=== PATIENT | male | born 1940 | race Caucasian/White ===

== ENCOUNTER 2020-12-27 10:58 | Outpatient (REF) | payer MEDICARE, SELFPAY ==
[2020-12-27 13:18] LABS: MANUAL DIFF FLAG NO
[2020-12-27 13:23] LABS: Basophils Percent Auto 0.6 % (0-2); Eosinophils Absolute Auto 0.2 X10*3/uL (0.0-0.4); Eosinophils Percent Auto 3.2 % (0-4); Hematocrit 39.1 % (42-52); Hemoglobin 12.6 g/dl (14.0-18.0); Imm Gran Abs Auto 0.01 X10*3/uL (0.00-0.03); Imm Gran Pct Auto 0.2 % (0.0-0.4); Lymphocytes Absolute Auto 2.2 X10*3/uL (1.2-4.9); Lymphocytes Percent Auto 44.5 % (20-40); Mean Corpuscular HGB Conc 32.2 g/dl (31.0-36.0); Mean Corpuscular Hemoglobin 27.4 pg (27.0-33.0); Mean Platelet Volume 10.4 fL (9.4-12.4); Monocytes Absolute Auto 0.4 X10*3/uL (0.1-1.2); Monocytes Percent Auto 7.4 % (2-11); Neutrophils Absolute Auto 2.2 X10*3/uL (2.0-8.3); Neutrophils Percent Auto 44.1 % (45-73); Platelet Count 138 X10*3/uL (160-400); Red Cell Distribution Width 14.1 % (11.0-16.0)
[2020-12-27 13:40] LABS: Estimated Average Glucose 237 mg/dL; Hemoglobin A1c % 9.9 %
[2020-12-27 13:49] LABS: Alanine Aminotransferase 20 U/L (0-40); Albumin Level 4.3 g/dL (3.5-5.0); Alkaline Phosphatase 48 U/L (39-117); Anion Gap 13 (12-20); Aspartate Amino Transferase 19 U/L (5-37); Bilirubin Total 0.7 mg/dL (0.0-1.0); Blood Urea Nitrogen 11 mg/dL (9-16); Carbon Dioxide 26 mmol/L (22-29); Chloride 104 mmol/L (96-108); Cholesterol 111 mg/dL; Estimated Glomerular Filt Rate > 60; Glucose Fasting 208 mg/dL (60-99); HDL Cholesterol 38 mg/dL; LDL Cholesterol Calculated 44 mg/dl; Potassium 4.1 mmol/L (3.3-5.1); Sodium 139 mmol/L (135-145); Triglycerides 145 mg/dL
[2020-12-27 14:23] LABS: Creatinine Urine 81.37 mg/dL; Microalbum/Creatinine Ratio Ur 346.5 ug/mg cr
== END 2020-12-27 10:59 | disposition home or self-care (01) ==
LOC: HO.10HDL 10:58
PROVIDERS: Visit Provider Internal Medicine
DX: Z00.00 Encounter for general adult medical examination without abnormal findings (principal); E11.9 Type 2 diabetes mellitus without complications
CPT/HCPCS: 36415; 80053; 80061; 82043; 83036; 85025

== ENCOUNTER 2021-05-17 12:13 | Outpatient (REF) | payer MEDICARE, SELFPAY ==
[2021-05-17 13:55] LABS: Estimated Average Glucose 217 mg/dL; Hemoglobin A1c % 9.2 %
[2021-05-17 14:06] LABS: Glucose Fasting 147 mg/dL (60-99)
== END 2021-05-17 12:14 | disposition home or self-care (01) ==
LOC: HO.10HDL 12:13
PROVIDERS: Visit Provider Internal Medicine
DX: E11.65 Type 2 diabetes mellitus with hyperglycemia (principal)
CPT/HCPCS: 36415; 82947; 83036

== ENCOUNTER 2021-09-18 09:33 | Outpatient (REF) | payer MEDICARE, SELFPAY ==
[2021-09-18 10:48] LABS: Estimated Average Glucose 212 mg/dL
[2021-09-18 11:05] LABS: Cholesterol 106 mg/dL; Glucose Fasting 149 mg/dL (60-99); HDL Cholesterol 35 mg/dL; LDL Cholesterol Calculated 50 mg/dl; Triglycerides 105 mg/dL
== END 2021-09-18 09:34 | disposition home or self-care (01) ==
LOC: HO.10HDL 09:33
PROVIDERS: Visit Provider Internal Medicine
DX: Z00.00 Encounter for general adult medical examination without abnormal findings (principal); E11.65 Type 2 diabetes mellitus with hyperglycemia
CPT/HCPCS: 36415; 80061; 82947; 83036

== ENCOUNTER 2022-02-19 10:36 | Outpatient (REF) | payer MEDICARE, SELFPAY ==
[2022-02-19 13:41] LABS: MANUAL DIFF FLAG NO
[2022-02-19 13:46] LABS: Basophils Percent Auto 0.7 % (0-2); Eosinophils Absolute Auto 0.2 X10*3/uL (0.0-0.4); Eosinophils Percent Auto 3.5 % (0-4); Hematocrit 38.4 % (42.0-52.0); Hemoglobin 12.4 g/dl (14.0-18.0); Imm Gran Abs Auto 0.01 X10*3/uL (0.00-0.03); Imm Gran Pct Auto 0.2 % (0.0-0.4); Lymphocytes Absolute Auto 2.3 X10*3/uL (1.2-4.9); Lymphocytes Percent Auto 40.6 % (20-40); Mean Corpuscular HGB Conc 32.3 g/dl (31.0-36.0); Mean Corpuscular Hemoglobin 27.3 pg (27.0-33.0); Mean Corpuscular Volume 84.6 fL (80.0-98.0); Mean Platelet Volume 10.8 fL (9.4-12.4); Monocytes Absolute Auto 0.4 X10*3/uL (0.1-1.2); Monocytes Percent Auto 7.4 % (2-11); Neutrophils Absolute Auto 2.7 x10*3/uL (2.0-8.3); Neutrophils Percent Auto 47.6 % (45-73); Platelet Count 148 X10*3/uL (160-400); Red Blood Count 4.54 X10*6/uL (4.60-5.80); Red Cell Distribution Width 14.6 % (11.0-16.0); White Blood Count 5.6 X10*3/uL (4.8-10.8)
[2022-02-19 13:57] LABS: Alanine Aminotransferase 15 U/L (0-40); Albumin Level 4.3 g/dL (3.5-5.0); Alkaline Phosphatase 50 U/L (39-117); Anion Gap 11 (12-20); Aspartate Amino Transferase 19 U/L (5-37); Bilirubin Total 0.8 mg/dL (0.0-1.0); Blood Urea Nitrogen 12 mg/dL (9-16); Carbon Dioxide 27 mmol/L (22-29); Chloride 105 mmol/L (96-108); Cholesterol 107 mg/dL; Estimated Glomerular Filt Rate > 60; Glucose Fasting 111 mg/dL (60-99); HDL Cholesterol 37 mg/dL; LDL Cholesterol Calculated 51 mg/dl; Potassium 3.8 mmol/L (3.3-5.1); Sodium 139 mmol/L (135-145); Total Protein 7.1 g/dL (6.5-8.0); Triglycerides 98 mg/dL
[2022-02-19 13:59] LABS: Estimated Average Glucose 186 mg/dL; Hemoglobin A1c % 8.1 %
[2022-02-19 14:19] LABS: Thyroid Stimulating Hormone 1.56 uIU/mL (0.32-4.0)
== END 2022-02-19 10:37 | disposition home or self-care (01) ==
LOC: HO.10HDL 10:36
PROVIDERS: Visit Provider Internal Medicine
DX: Z00.00 Encounter for general adult medical examination without abnormal findings (principal); E11.9 Type 2 diabetes mellitus without complications; Z13.0 Encounter for screening for diseases of the blood and blood-forming organs and certain disorders involving the immune mechanism
CPT/HCPCS: 36415; 80053; 80061; 83036; 84443; 85025

== ENCOUNTER 2022-06-03 15:56 | Emergency (ER) | payer MEDICARE, SELFPAY ==
--- NOTE | ~2022-06-03 | CT_ITS ---
EXAMINATION: NONCONTRAST HEAD CT NONCONTRAST CERVICAL SPINE CT INDICATION INFORMATION: Fall COMPARISON: None TECHNIQUE: Separate noncontrast CT examinations of the head and cervical spine were performed. Coronal and sagittal images were created for each examination at the technologist workstation. This CT examination was performed using dose optimization techniques as appropriate, variously including the following: *Automated exposure control *Adjustment of mA and/or kV according to patient size (this includes techniques or standardized protocols for targeted exams where dose is matched to indication/reason for exam; i.e. extremities or head) *Use of iterative reconstruction technique DLP: 845 mGy-cm FINDINGS: HEAD: No intra or extra-axial fluid collection, hemorrhage, or mass. No ventriculomegaly. No midline shift or herniation. Basal cisterns are patent. Casper-white matter differentiation is maintained. No territorial encephalomalacia. Proportional prominence of the ventricles and sulcal spaces is consistent with mild volume loss. Patchy periventricular and deep white matter hypoattenuation is consistent with mild small vessel ischemic changes. No calvarial fracture or soft tissue abnormality. Partial opacification of left mastoid air cells, nonspecific. Right mastoid air cells and visualized paranasal sinuses are normally aerated. CERVICAL SPINE: Alignment: Normal. No subluxation. Vertebra: No acute fracture. No prevertebral soft tissue swelling. Degenerative disc disease: Status post decompressive laminectomy at C3-C6. Moderate disc degenerative change at C2-C3 and C3-C4. Partial ankylosis of the C4 through C7 levels. There is bridging osteophyte or syndesmophyte formation and the visualized upper thoracic spine. Advanced facet arthrosis at C2-C3 and C3-C4. Facet joint ankylosis at C4-C6. Other findings: No cervical lymphadenopathy. Visualized major salivary glands and thyroid gland are unremarkable. Visualized lung apices are clear. CT/CT cervical spine wo IV con IMPRESSION: 1. No intracranial hemorrhage or calvarial fracture. 2. No traumatic subluxation or acute cervical spine fracture.
--- NOTE | ~2022-06-03 | CT_ITS ---
EXAMINATION: CT CHEST WITHOUT CONTRAST CLINICAL INFORMATION: Fall with weakness COMPARISON: None TECHNIQUE: Multidetector volumetric CT imaging of the chest was done. Axial MIP volume rendering provided. Sagittal and coronal reformatted images were obtained. This CT examination was performed using dose optimization techniques as appropriate, variously including the following: *Automated exposure control *Adjustment of mA and/or kV according to patient size (this includes techniques or standardized protocols for targeted exams where dose is matched to indication/reason for exam; i.e. extremities or head) *Use of iterative reconstruction technique DLP: 555 mGy-cm FINDINGS: LUNGS: The lungs are clear with no evidence of inflammation or nodules. MEDIASTINUM: Heart size normal. No mediastinal or hilar lymphadenopathy. CORONARY ARTERY CALCIFICATION: Marked coronary calcification is seen. PLEURA: There is no pleural effusion. No pleural mass or thickening. No pneumothorax. AXILLA: No lymphadenopathy. Bilateral gynecomastia is present. UPPER ABDOMEN: There is a 2 cm cyst present in the right lobe of the liver just beneath the dome of the hemidiaphragm. Calcified gallstones are seen without evidence of cholecystitis. OSSEOUS STRUCTURES: Degenerative changes are noted throughout the spine with kyphosis. Status post median sternotomy. No rib fractures. CT/CT chest wo IV con IMPRESSION: No evidence of a traumatic injury. Incidental findings as described above. Fleischner guidelines were followed.
[2022-06-03 16:13] VITALS: BP 140/90; BP 168/68; PULSE 71; PULSE 86; RESP 18; TEMP 37.1; O2SAT 96; BMI 29.4
--- NOTE | 2022-06-03 16:14 | ED_ITS ---
HPI - General Adult General Chief complaint: Fall Stated complaint: fall Time Seen by Provider: 06/03/22 16:14 Source: patient and EMS Mode of arrival: EMS Limitations: no limitations History of Present Illness HPI narrative: Patient is a 81 year old assigned male at with a history of HTN and DM p resenting to the emergency department today after a fall. Patient states that he was at [employer] walking with his walker when his legs felt weak and he sat down. Patient states that he did not hit his head with the fall and did not have any loss of consciousness from the incident. Patient denies any current dizziness, lightheadedness, abdominal pain, nausea, vomiting, fever, chills, blurry vision, double vision, loss of vision, chest pain, difficulty breathing, shortness of breath, back pain, night sweats, pain with urination, increased urinary frequency, increased urinary urgency, blood in his urine or stool, syncope or a near syncopal episode, bowel incontinence, bladder incontinence, bowel retention, bladder retention, or any other complaints at this time. Onset (ago): minute(s) Relieving factors: none Exacerbating factors: none Associated symptoms: denies other symptoms Treatments prior to arrival: none Related Data Home Medications Medication Instructions Recorded Confirmed insulin NPH-reg hum semi-syn 100 ml subcut 12/27/21 03/29/22 unit/mL(70-30) subcutaneous cartridge Previous Rx's Medication Instructions Recorded insulin syringe-needle U-100 1 mL #100 ea 06/18/21 31 gauge x 5/16 (BD Insulin Syringe Ultra-Fine) blood sugar diagnostic (FreeStyle #100 ea 11/09/21 Test strips) rosuvastatin 10 mg tablet (Crestor) 10 mg PO DAILY 90 days #90 tabs 02/06/22 cholecalciferol (vitamin D3) 50 50 mcg PO DAILY #90 caps 02/20/22 mcg (2,000 unit) capsule losartan 25 mg tablet 25 mg PO DAILY 90 days #90 tabs 03/08/22 metformin 850 mg tablet 850 mg PO TID 90 days #270 tabs 04/10/22 hydralazine 25 mg tablet 25 mg PO BID 90 days #180 tabs 04/19/22 metoprolol tartrate 100 mg tablet 100 mg PO BID 90 days #180 tabs 04/19/22 Allergies Allergy/AdvReac Type Severity Reaction Status Date / Time Mfqmlsg-BCA-FbN Reductase Allergy Mild Burning Verified 03/29/22 11:45 Inhibitor sensation [Qfapkbw-Jkt-Hyn Reductase Inhibitor] all statins except crestor Allergy Unknown burning Uncoded 07/16/19 00:00 sensations in legs Review of Systems Constitutional: Constitutional: Reports no additional constitutional complaints, Denies chills, Denies fever(s) and Denies night sweats Eyes: Eyes: Reports no additional eye complaints, Denies blurry vision, Denies change in vision, Denies diplopia, Denies eye discharge, Denies loss of vision and Denies eye pain ENT: Denies dizziness Cardiovascular: Cardiovascular: Reports no additional cardiovascular complaints, Denies chest pain, Denies lightheadedness, Denies Loss of Consciousn ess and Denies dyspnea Respiratory: Respiratory: Reports no additional respiratory complaints and Denies dyspnea Gastrointestinal: Gastrointestinal: Reports no additional gastrointestinal complaints, Denies abdominal pain, Denies melena, Denies hematochezia, Denies change in bowel habits and Denies change in stool character Genitourinary: Genitourinary: Reports no additional male genitourinary complaints, Denies hematuria, Denies oliguria, Denies difficulty urinating, Denies dysuria, Denies urinary frequency, Denies urinary hesitancy, Denies urinary incontinence and Denies urinary urgency Musculoskeletal: Musculoskeletal: Reports no additional musculoskeletal complaints, Denies numbness and Denies tingling Neurologic: Denies dizziness, Denies loss of vision, Denies numbness and Denies tingling Psychiatric: Psychiatric: Reports no additional psychiatric complaints Endocrine: Endocrine: Reports no additional endocrine complaints Hematologic/Lymphatic: Hematologic/Lymphatic: Reports no additional hematologic/lymphatic complaints Allergic/Immunologic: Allergic/Immunologic: Reports no additional allergic/immunologic complaints [facility] Past Medical History Attestation statement: The following information was validated with the patient. Source: old records reviewed Medical History Diabetes mellitus with coincident hypertension Hyperlipidemia Hypertension Surgical History H/O heart surgery Family History Family History Mother No problems noted. Father No problems noted. Social History Social History (Reviewed 06/03/22 @ 20:14 by HARPREET Argueta Housing: House Alcohol intake: never Patient Tobacco Use Status: Former Tobacco user Tobacco use type: Cigarette e-Cigarette/Vaping Use: Never Used Second Hand Smoke Exposure: No Advance Directives: No Advance Directives Information Provided: No service: Yes Current occupational status: retired Cognitive needs: Yes (walker) Hearing needs: No Vision needs: Yes (glasses) Physical Exam ED Vital Signs: Vital Signs - 24 hr 06/03/22 16:13 Temperature 98.7 F Pulse Rate 71 Respiratory Rate 18 Blood Pressure 168/68 H Pulse Oximetry 96 Oxygen Delivery Method Room Air BMI result Body Mass Index 29.4 Const General: cooperative, no acute distress, alert and awake Nutritional Appearance: well nourished Orientation/consciousness: patient oriented x3 Limitations: no limitations HENMT Head: Yes normal to inspection and Yes atraumatic Ears: hearing grossly normal bilaterally and external ears normal General nose exam: Normal external nose present, no nasal discharge noted and no epistaxis Face and sinus: Yes normal facial exam, No abrasion and No laceration Mouth: Normal oral and palatal mucosa present, no drooling and no muffled voice Eyes General: appearance normal, both eyes and all related structures Periorbital: periorbital findings normal Eyelids: Yes eyelids normal Conjunctivae: conjunctivae normal Pupils: Equal, round and reactive pupils present EOM: EOMs intact bilaterally Neck Neck: Yes normal visual inspection, Yes full ROM and Yes no lymphadenopathy Chest Chest palpation & inspection: normal inspection of the chest Resp Effort & Inspection: normal respiratory effort and able to speak in complete sentences Auscultation: clear to auscultation bilaterally Cardio Rate: regular rate Rhythm: regular rhythm GI Inspection: Yes normal to inspection Palpation (GI): Soft to palpation, not firm, nontender, no guarding and not rigid Neuro General: patient oriented x3 and moves all extremities Cranial nerves: Yes Equal, round and reactive pupils present Cognition (Neuro): normal cognition Motor exam (neuro): 5/5 motor strength present throughout Sensory Exam: Normal double simultaneous stimulation for sensation Coordination: [id number]-[id number]-ejak test normal Extrem General: Yes normal to inspection, Yes full ROM and Yes capillary refill normal Psych Appearance: grossly normal Mental Status: mental status grossly normal Affect: normal affect Attitude: cooperative Thought process: Normal thought process present Thought content: Normal thought content present Insight: Good insight present (Psych) Medical Decision Making MDM Narrative Medical decision making narrative: Patient is a 81 year old assigned male at with a history of HTN and DM presenting to the emergency department today after a fall. Patient's physical exam was unremarkable. Patient's blood work showed a slightly decreased magn esium but was otherwise unremarkable. Patient's urine showed no acute process. Patient's EKG showed a RBB of which the patient states he was told he had before. Patient's head, c-spine, and chest CTs showed no acute process. I explained my physical exam findings as well as all test results to the patient and the patient's close friend. I answered all questions asked by the patient and the patient's friend. Patient received PO Magnesium while in the department. I stressed the importance of the patient taking his medication as prescribed. I stressed the importance of the patient following up with his primary care provider. I stressed the importance of the patient returning to the emergency department immediately if his symptoms were to worsen or if he were to develop any dizziness, shortness of breath, difficulty breathing, chest pain, blurry vision, loss of vision, nausea, vomiting, abdominal pain, fever, chills, back pain, or any other complaints. Patient and the patient's close friend verbalized agreement and understanding with this treatment plan and discharge. Medical Records Medical records reviewed: Yes I reviewed the patient's medical records. Lab Data Lab results reviewed: Yes I reviewed the patient's lab results. Result diagrams: 06/03/22 17:01 06/03/22 17:01 Labs: Lab Results 06/03/22 06/03/22 06/03/22 Range/Units 17:01 17:01 17:01 WBC 6.1 (4.8-10.8) X10*3/uL RBC 4.63 (4.60-5.80) X10*6/uL Hgb 12.7 L (14.0-18.0) g/dl Hct 39.0 L (42.0-52.0) % MCV 84.2 (80.0-98.0) fL MCH 27.4 (27.0-33.0) pg MCHC 32.6 (31.0-36.0) g/dl RDW 14.4 (11.0-16.0) % Plt Count 145 L (160-400) X10*3/uL MPV 10.2 (9.4-12.4) fL Immature Gran % (Auto) 0.2 (0.0-0.4) % Neut % (Auto) 60.2 (45-73) % Lymph % (Auto) 28.7 (20-40) % [place] % (Auto) 7.9 (2-11) % Eos % (Auto) 2.3 (0-4) % Baso % (Auto) 0.7 (0-2) % Lymph # (Auto) 1.8 (1.2-4.9) X10*3/uL [place] # (Auto) 0.5 (0.1-1.2) X10*3/uL Eos # (Auto) 0.1 (0.0-0.4) X10*3/uL Baso # (Auto) 0.0 (0.0-0.2) X10*3/uL Abs Immat Gran (auto) 0.01 (0.00-0.03) X10*3/uL Absolute Neuts (auto) 3.7 (2.0-8.3) x10*3/uL Absolute Nucleated RBC 0.000 (0.0-0.012) X10*3/uL Nucleated RBC % (auto) 0.0 (0.0-0.2) /100WBC Sodium 140 (135-145) mmol/L Potassium 4.4 (3.3-5.1) mmol/L Chloride 103 (96-108) mmol/L Carbon Dioxide 28 (22-29) mmol/L Anion Gap 13 (12-20) BUN 14 (9-16) mg/dL Creatinine 0.73 (0.5-1.4) mg/dL Estim Creat Clear Calc 96.8 Estimated GFR > 60 Random Glucose 211 H (60-115) mg/dL Calcium 9.4 (8.4-10.2) mg/dL Magnesium 1.4 L* (1.6-2.6) mg/dL Total Bilirubin 0.6 (0.0-1.0) mg/dL AST 21 (5-37) U/L ALT 19 (0-40) U/L Alkaline Phosphatase 55 (39-117) U/L Troponin I High Sens 11.9 (<3.5-35.0) ng/L Total Protein 7.0 (6.5-8.0) g/dL Albumin 4.3 (3.5-5.0) g/dL Urine Color Urine Appearance Urine pH (5.0-9.0) Ur Specific [place] (1.005-1.025) Urine Protein (Neg-Trace) mg/dL Urine Glucose (UA) (Negative) mg/dL Urine Ketones (Negative) mg/dL Urine Blood (Negative) Urine Nitrite (Negative) Ur Leukocyte Esterase (Negative) Urine RBC (0-2) /HPF Urine WBC (0-5) /HPF Ur Squamous Epith Cells (0-2) /HPF Urine Bacteria (None Seen) Hyaline Casts (0-2) /LPF 06/03/22 Range/Units 18:25 WBC (4.8-10.8) X10*3/uL RBC (4.60-5.80) X10*6/uL Hgb (14.0-18.0) g/dl Hct (42.0-52.0) % MCV (80.0-98.0) fL MCH (27.0-33.0) pg MCHC (31.0-36.0) g/dl RDW (11.0-16.0) % Plt Count (160-400) X10*3/uL MPV (9.4-12.4) fL Immature Gran % (Auto) (0.0-0.4) % Neut % (Auto) (45-73) % Lymph % (Auto) (20-40) % [place] % (Auto) (2-11) % Eos % (Auto) (0-4) % Baso % (Auto) (0-2) % Lymph # (Auto) (1.2-4.9) X10*3/uL [place] # (Auto) (0.1-1.2) X10*3/uL Eos # (Auto) (0.0-0.4) X10*3/uL Baso # (Auto) (0.0-0.2) X10*3/uL Abs Immat Gran (auto) (0.00-0.03) X10*3/uL Absolute Neuts (auto) (2.0-8.3) x10*3/uL Absolute Nucleated RBC (0.0-0.012) X10*3/uL Nucleated RBC % (auto) (0.0-0.2) /100WBC Sodium (135-145) mmol/L Potassium (3.3-5.1) mmol/L Chloride (96-108) mmol/L Carbon Dioxide (22-29) mmol/L Anion Gap (12-20) BUN (9-16) mg/dL Creatinine (0.5-1.4) mg/dL Estim Creat Clear Calc Estimated GFR Random Glucose (60-115) mg/dL Calcium (8.4-10.2) mg/dL Magnesium (1.6-2.6) mg/dL Total Bilirubin (0.0-1.0) mg/dL AST (5-37) U/L ALT (0-40) U/L Alkaline Phosphatase (39-117) U/L Troponin I High Sens (<3.5-35.0) ng/L Total Protein (6.5-8.0) g/dL Albumin (3.5-5.0) g/dL Urine Color Yellow Urine Appearance Turbid Urine pH 6.5 (5.0-9.0) Ur Specific [place] 1.020 (1.005-1.025) Urine Protein 100 (2+) H (Neg-Trace) mg/dL Urine Glucose (UA) >=1000 H (Negative) mg/dL Urine Ketones Negative (Negative) mg/dL Urine Blood Negative (Negative) Urine Nitrite Negative (Negative) Ur Leukocyte Esterase Negative (Negative) Urine RBC 0-2 (0-2) /HPF Urine WBC 0-5 (0-5) /HPF Ur Squamous Epith Cells 0-2 (0-2) /HPF Urine Bacteria None Seen (None Seen) Hyaline Casts 0-2 (0-2) /LPF Imaging Data CT scan - chest: Attestation: I personally reviewed and interpreted this imaging study as follows: My impression: No acute process. Radiologist's impression: EXAMINATION: CT CHEST WITHOUT CONTRAST CLINICAL INFORMATION: Fall with weakness? COMPARISON: None? TECHNIQUE: Multidetector volumetric CT imaging of the chest was done. Axial MIP volume rendering provided. Sagittal and coronal reformatted images were obtained.? This CT examination was performed using dose optimization techniques as appropriate, variously including the following: *Automated exposure control *Adjustment of mA and/or kV according to patient size (this includes techniques or standardized protocols for targeted exams where dose is matched to indication/reason for exam; i.e. extremities or head) *Use of iterative reconstruction technique DLP: 555 mGy-cm FINDINGS: LUNGS: The lungs are clear with no evidence of inflammation or nodules. ? MEDIASTINUM: Heart size normal. No mediastinal or hilar lymphadenopathy.? CORONARY ARTERY CALCIFICATION: Marked coronary calcification is seen. PLEURA: There is no pleural effusion. No pleural mass or thickening. No pneumothorax. AXILLA: No lymphadenopathy. Bilateral gynecomastia is present. UPPER ABDOMEN: There is a 2 cm cyst present in the right lobe of the liver just beneath the dome of the hemidiaphragm. Calcified gallstones are seen without evidence of cholecystitis.? OSSEOUS STRUCTURES: Degenerative changes are noted throughout the spine with kyphosis. Status post median sternotomy. No rib fractures. CT/CT chest wo IV con IMPRESSION: No evidence of a traumatic injury. Incidental findings as described above. ? Fleischner guidelines were followed. Dictated By: Saeid Blanchard MD Signed By: Electronically signed by Saeid Blanchard MD 06/03/[address] scan head and c-spine: Attestation: I personally reviewed and interpreted this imaging study as follows: My impression: No acute process. Radiologist's impression: EXAMINATION: NONCONTRAST HEAD CT NONCONTRAST CERVICAL SPINE CT INDICATION INFORMATION: Fall COMPARISON: None TECHNIQUE: Separate noncontrast CT examinations of the head and cervical spine were performed. Coronal and sagittal images were created for each examination at the technologist workstation. This CT examination was performed using dose optimization techniques as appropriate, variously including the following: *Automated exposure control *Adjustment of mA and/or kV according to patient size (this includes techniques or standardized protocols for targeted exams where dose is matched to indication/reason for exam; i.e. extremities or head) *Use of iterative reconstruction technique DLP: 845 mGy-cm FINDINGS: HEAD: No intra or extra-axial fluid collection, hemorrhage, or mass. No ventriculomegaly. No midline shift or herniation. Basal cisterns are patent. Casper-white matter differentiation is maintained. No territorial encephalomalacia. ?Proportional prominence of the ventricles and sulcal spaces is consistent with mild volume loss. Patchy periventricular and deep white matter hypoattenuation is consistent with mild small vessel ischemic changes. No calvarial fracture or soft tissue abnormality.? Partial opacification of left mastoid air cells, nonspecific. Right mastoid air cells and visualized paranasal sinuses are normally aerated. CERVICAL SPINE: Alignment: Normal. No subluxation. Vertebra: No acute fracture. No prevertebral soft tissue swelling. Degenerative disc disease: Status post decompressive laminectomy at C3-C6. Moderate disc degenerative change at C2-C3 and C3-C4. Partial ankylosis of the C4 through C7 levels. There is bridging osteophyte or syndesmophyte formation and the visualized upper thoracic spine. Advanced facet arthrosis at C2-C3 and C3-C4. Facet joint ankylosis at C4-C6. Other findings: No cervical lymphadenopathy. Visualized major salivary glands and thyroid gland are unremarkable. Visualized lung apices are clear. CT/CT head/brain wo IV con IMPRESSION: 1.? No intracranial hemorrhage or calvarial fracture. 2.? No traumatic subluxation or acute cervical spine fracture. Dictated By: Karthikeyan Zuleta Signed By: Electronically signed by Petty 06/03/22 1738 ECG Data Attestation: I personally reviewed and interpreted this ECG as follows: Prior ECG tracings: not available for review Interpretation: Vent. Rate: 075 BPM ? ? Atrial Rate: 000 BPM P-R Int: 000 ms? QRS Dur: 132 ms QT Int: 440 ms ? ? ? P-R-T Axes: 000 -57 079 degrees QTc Int: 491 ms ? Atrial fibrillation with a competing junctional pacemaker Right bundle branch block Left anterior fascicular block Bifascicular block Abnormal ECG No previous ECGs available DD/ 1642 Discharge Plan Discharge Clinical Impression: Fall, Hypomagnesemia Patient Disposition: Home, Self-Care Instructions: Fall Prevention for Older Adults (ED), Hypomagnesemia (ED) Additional Instructions: Follow up with your primary care provider and a urologist to discuss your excessive urination. Return to the emergency department immediately if your symptoms worsen or if you develop any dizziness, shortness of breath, difficulty breathing, chest pain, blurry vision, loss of vision, nausea, vomiting, abdominal pain, fever, chills, back pain, or any other complaints. Prescriptions: No Action (DME) insulin syringe-needle U-100 [BD Insulin Syringe Ultra-Fine] 1 mL 31 gauge x 5/16 syringe See Rx Instructions .ROUTE .MEDSUPPLY Qty: 100 8RF Rx Instructions: As directed (DME) FreeStyle Test Strip See Rx Instructions .Route Qty: 100 6RF Rx Instructions: Test 3 times Daily rosuvastatin [Crestor] 10 mg tablet 10 mg PO DAILY 90 Days Qty: 90 4RF cholecalciferol (vitamin D3) 50 mcg (2,000 unit) capsule 50 mcg PO DAILY Qty: 90 8RF losartan 25 mg tablet 25 mg PO DAILY 90 Days Qty: 90 4RF metformin 850 mg tablet 850 mg PO TID 90 Days Qty: 270 4RF metoprolol tartrate 100 mg tablet 100 mg PO BID 90 Days Qty: 180 4RF hydralazine 25 mg tablet 25 mg PO BID 90 Days Qty: 180 4RF insulin NPH-regular hum s-syn 100 unit/mL (70-30) cartridge subcut Rx Instructions: 60 in the am and 40 pm Referrals: [facility] [Provider Group] (Call to establish and follow up with a urologist. ) Aubrey Fitzpatrick MD [Primary Care Provider] - Interventions: ED Discharge Assessment Last Done: 06/03/22 19:24 Discharge Date/Time: 06/03/22 19:25 Print Language: Luxembourgish
--- NOTE | 2022-06-03 16:19 | ECG_ITS ---
Test Reason : WEAKNESS Blood Pressure : / mmHG Vent. Rate : 075 BPM Atrial Rate : 000 BPM P-R Int : 000 ms QRS Dur : 132 ms QT Int : 440 ms P-R-T Axes : 000 -57 079 degrees QTc Int : 491 ms Normal sinus rhythm with Sinus Arrhythmia with frequent Premature atrial complexes Right bundle branch block Left anterior fascicular block Bifascicular block Abnormal ECG No previous ECGs available Referred By: Kate Ayala Electronically Signed By:JARAD BRENNAN MD
[2022-06-03 17:10] LABS: MANUAL DIFF FLAG NO
[2022-06-03 17:33] LABS: Basophils Percent Auto 0.7 % (0-2); Eosinophils Absolute Auto 0.1 X10*3/uL (0.0-0.4); Eosinophils Percent Auto 2.3 % (0-4); Hemoglobin 12.7 g/dl (14.0-18.0); Imm Gran Abs Auto 0.01 X10*3/uL (0.00-0.03); Imm Gran Pct Auto 0.2 % (0.0-0.4); Lymphocytes Absolute Auto 1.8 X10*3/uL (1.2-4.9); Lymphocytes Percent Auto 28.7 % (20-40); Mean Corpuscular HGB Conc 32.6 g/dl (31.0-36.0); Mean Corpuscular Hemoglobin 27.4 pg (27.0-33.0); Mean Corpuscular Volume 84.2 fL (80.0-98.0); Mean Platelet Volume 10.2 fL (9.4-12.4); Monocytes Absolute Auto 0.5 X10*3/uL (0.1-1.2); Monocytes Percent Auto 7.9 % (2-11); Neutrophils Absolute Auto 3.7 x10*3/uL (2.0-8.3); Neutrophils Percent Auto 60.2 % (45-73); Platelet Count 145 X10*3/uL (160-400); Red Blood Count 4.63 X10*6/uL (4.60-5.80); Red Cell Distribution Width 14.4 % (11.0-16.0); White Blood Count 6.1 X10*3/uL (4.8-10.8)
[2022-06-03 17:37] LABS: Troponin-I High Sensitivity 11.9 ng/L (<3.5-35.0)
[2022-06-03 17:43] LABS: Alanine Aminotransferase 19 U/L (0-40); Albumin Level 4.3 g/dL (3.5-5.0); Alkaline Phosphatase 55 U/L (39-117); Anion Gap 13 (12-20); Aspartate Amino Transferase 21 U/L (5-37); Bilirubin Total 0.6 mg/dL (0.0-1.0); Blood Urea Nitrogen 14 mg/dL (9-16); Calcium 9.4 mg/dL (8.4-10.2); Carbon Dioxide 28 mmol/L (22-29); Chloride 103 mmol/L (96-108); Creatinine Clr Calc Pharmacy 96.8; Estimated Glomerular Filt Rate > 60; Glucose Random 211 mg/dL (60-115); Magnesium 1.4 mg/dL (1.6-2.6); Potassium 4.4 mmol/L (3.3-5.1); Sodium 140 mmol/L (135-145)
[2022-06-03 18:39] LABS: Appearance Urine Turbid; Color Urine Yellow; Glucose Urine UA >=1000 mg/dL (Negative); Leukocyte Esterase Urine Negative (Negative); Nitrite Urine Negative (Negative); PH 6.5 (5.0-9.0); UMIC TRIGGER UACC YES; Urine Blood Negative (Negative); Urine Ketones Negative (Negative); Urine Protein 100 (2+) mg/dL (Neg-Trace)
[2022-06-03 18:45] LABS: Bacteria Urine None Seen (None Seen); Hyaline Casts Urine 0-2 /LPF (0-2); RBC Urine 0-2 /HPF (0-2); Squamous Epithelial Cell Urine 0-2 /HPF (0-2); WBC Urine 0-5 /HPF (0-5)
[2022-06-03] MEDS: Magnesium Oxide 400 MG TABLET 800 MG PO (19:12)
== END 2022-06-03 19:25 | disposition home or self-care (01) ==
PROVIDERS: Physician Assistant Medical; Emergency Provider Student in an Organized Health Care Education/Training Program; PCP Internal Medicine
DX: R42 Dizziness and giddiness (principal); R07.89 Other chest pain; R51.9 Headache, unspecified; M54.2 Cervicalgia; M54.6 Pain in thoracic spine; M54.50 Low back pain, unspecified; E83.42 Hypomagnesemia; Z87.891 Personal history of nicotine dependence; Z79.899 Other long term (current) drug therapy
CPT/HCPCS: 36415; 70450; 71250; 72125; 80053; 81001; 83735; 84484; 85025; 93005; 99284

== ENCOUNTER 2022-06-13 15:18 | Inpatient (IN) | payer MEDICARE, SELFPAY ==
[2022-06-13] VITALS (8 sets, daily range): BP systolic 154–191; BP diastolic 66–90; PULSE 64–79; RESP 16; TEMP 36.1–36.8; O2SAT 94–99; BMI 26.6
--- NOTE | ~2022-06-13 | MR_ITS ---
EXAMINATION: MR BRAIN WITHOUT CONTRAST CLINICAL INFORMATION: Severe dizziness. COMPARISON: CT head from 06/13/2022. TECHNIQUE: MRI of the brain was obtained using routine sequences without contrast. FINDINGS: Moderately motion degraded exam. No demonstrated focal restricted diffusion is demonstrated to suggest acute or subacute cerebral ischemia. No evidence of acute or chronic hemorrhagic products on heme-sensitive imaging. Scattered periventricular and deep white matter T2 FLAIR hyperintensities consistent with mild to moderate underlying microangiopathy. There is a degree of generalized cerebral volume loss with prominence of both the ventricles and sulcal spaces. However, there appears to be mildly disproportionate prominence of the ventricles. The posterior callosal angle is decreased (70 degrees) when measured on a corrected coronal image, orthogonal to the anterior commissure-posterior commissure line. No abnormal mass effect. No midline shift. Normal appearance of the pituitary gland. Normal positioning of the cerebellar tonsils. Normal arterial and venous vascular flow voids are present. Normal, homogeneous marrow signal. Mild mucosal thickening of the paranasal sinuses. Moderate left-sided mastoid effusion. No signal abnormalities within the right-sided mastoid. Bilateral lens extractions. MR/MR head/brain wo con IMPRESSION: 1. No acute intracranial abnormalities. 2. Mild to moderate underlying microangiopathy. 3. There is a degree of generalized cerebral volume loss with prominence of both the ventricles and sulcal spaces. However, there appears to be mildly disproportionate prominence of the ventricles. This may be due to disproportionate central volume loss; however, correlation with symptoms of potentially superimposed normal pressure hydrocephalus is recommended. 4. Moderate left-sided mastoid effusion.
--- NOTE | ~2022-06-13 | CT_ITS ---
EXAMINATION: CT HEAD WITHOUT CONTRAST CLINICAL INFORMATION: Follow-up hemorrhage COMPARISON: Previous exam June 2022 TECHNIQUE: Contiguous axial imaging was performed from the skull base to vertex without intravenous administration of contrast. This CT examination was performed using dose optimization techniques as appropriate, variously including the following: *Automated exposure control *Adjustment of mA and/or kV according to patient size (this includes techniques or standardized protocols for targeted exams where dose is matched to indication/reason for exam; i.e. extremities or head) *Use of iterative reconstruction technique DLP: 907 mGy-cm FINDINGS: The ventricles and extra-axial CSF spaces are prominent suggestive of generalized atrophy. There is nonspecific periventricular white matter disease. There is a small amount of extra-axial hemorrhage adjacent to the left posterior parietal lobe, in the posterior horns of both lateral ventricles and adjacent to the bilateral subdural lobes. This is not appear appreciably changed. No mass, mass effect or infarct. No skull fracture. Chronic changes in the left mastoid air cells.. CT/CT head/brain wo IV con IMPRESSION: No change in small areas of extra-axial hemorrhage from 06/26/2022 exam.
--- NOTE | ~2022-06-13 | CT_ITS ---
Indication: Fall, pain EXAMINATION: CT brain, CT cervical spine. Comparison previous dated 06/03/2022. Axial imaging with coronal and sagittal reformatted images. Radiation dose [address] examination was performed using dose optimization techniques as appropriate, variously including the following: *Automated exposure control *Adjustment of mA and/or kV according to patient size (this includes techniques or standardized protocols for targeted exams where dose is matched to indication/reason for exam; i.e. extremities or head) *Use of iterative reconstruction technique. CT brain; There is no midline shift. There is no mass effect. There is no hemorrhage. The basal cisterns appear patent. The posterior fossa is grossly within normal limits. There is no extra-axial collection. Scattered areas of white matter ischemic changes. There is no evidence for fracture on the bone windows. Chronic appearing left mastoid region. CT cervical spine; No acute fracture or dislocation. Postsurgical and degenerative changes are noted CT/CT cervical spine wo IV con IMPRESSION: Negative acute noncontrast CT of the brain. No acute fracture or dislocation of the cervical spine
--- NOTE | ~2022-06-13 | CT_ITS ---
EXAMINATION: CT ANGIOGRAM OF THE CHEST WITH AND WITHOUT CONTRAST (CT PULMONARY ANGIOGRAM FOR PE) CLINICAL INFORMATION: Hypoxia. Elevated d-dimer. COMPARISON: Chest CT of 06/13/2022 and 06/03/2022, chest x-ray of 06/15/2022 TECHNIQUE: Prior to contrast administration, noncontrast localization images were obtained. Subsequently, multidetector volumetric imaging was performed from the thoracic inlet to below the diaphragms following the administration of 80 mL Omnipaque 350 intravenous contrast. No contrast reaction reported Sagittal, coronal, and MIP oblique sagittal reformatted images were obtained on the CT workstation, uploaded to PACS, and reviewed. This CT examination was performed using dose optimization techniques as appropriate, variously including the following: *Automated exposure control *Adjustment of mA and/or kV according to patient size (this includes techniques or standardized protocols for targeted exams where dose is matched to indication/reason for exam; i.e. extremities or head) *Use of iterative reconstruction technique Total exam dose-length product 624 mGy-cm FINDINGS: QUALITY OF STUDY/CONTRAST BOLUS: There is satisfactory enhancement of the pulmonary arterial tree however presence of multiple respiratory motion artifacts limit evaluation. PULMONARY ARTERIES: No central or segmental pulmonary emboli. THORACIC AORTA: No aneurysm or dissection. LUNGS AND PLEURA: Very small bilateral pleural effusions with bibasilar consolidations, left greater than right, likely atelectasis. Multifocal airspace opacities with peribronchovascular distribution noted, greater in the left lung. A 0.4 cm pleural-based nodule is noted at the right lung base posteromedially (series 7, image 332), unchanged compared to CT scan of 06/03/2022. Bronchiectasis. MEDIASTINUM: Cardiomegaly. No pericardial effusion. Post-surgical changes of cardiac bypass. No hilar or mediastinal lymphadenopathy. Mild septal bowing is noted. Extensive coronary calcifications are noted. CHEST WALL/AXILLA: No axillary or internal mammary lymphadenopathy. Bilateral symmetrical gynecomastia. OSSEOUS STRUCTURES: Multiple respiratory motion artifacts limit evaluation. Within the limits of study there is suggestion of fracture through the superior aspect of the body of the T8 body extending along the left-sided posterior elements. Findings are best seen on the sagittal reformatted images (series 10, image 62 through 69/124). Somewhat prominent small soft tissue densities are noted posterior to the thecal sac at this level of the T8 fracture, are nonspecific, may represent prominent dural veins. Changes of diffuse idiopathic skeletal hyperostosis. The sternotomy is well fused. Sternotomy wires are intact. UPPER ABDOMEN: Note is made of cholelithiasis. Partially visualized exophytic hypodense lesion from the anterior aspect of the right mid kidney, representing cyst by CT Hounsfield units criteria. Reflux of contrast into the hepatic veins to suggest elevated right heart pressures. CT/CT angio chest PE protocol IMPRESSION: 1. Multiple respiratory motion artifacts limit evaluation. 2. No central or segmental pulmonary emboli. 3. Multifocal airspace opacities with peribronchovascular distribution, greater in the left lung, concerning for infectious or inflammatory process. 4. Very small bilateral pleural effusions with bibasilar consolidations, left greater than right, likely atelectasis. 5. Suggestion of fracture through the superior aspect of the body of the T8 body extending along the left-sided posterior elements. Small soft tissue posterior to the thecal sac at this level may represent prominent dural veins. Recommend clinical correlation and further evaluation with MRI as clinically deemed necessary. 6. Reflux of contrast into the hepatic veins to suggest elevated right heart pressures. 7. Cholelithiasis. 8. A 0.4 cm pleural-based nodule at the right lung base posteromedially, unchanged compared to CT scan of 06/03/2022. According to the UPDATED 2017 Fleischner Society recommendations, the advised follow-up imaging for solid nodules < 6 mm is: 9. LOW RISK PATIENT: No routine follow-up. 10. HIGH RISK PATIENT: Optional CT at 12 months. VTE: Negative.
--- NOTE | ~2022-06-13 | US_ITS ---
EXAMINATION: US VENOUS ULTRASOUND WITH DOPPLER LOWER EXTREMITY, RIGHT CLINICAL INFORMATION: Swelling and warmth right lower extremity COMPARISON: May 08, 2017 and March 27, 2017 TECHNIQUE: Ultrasound of the deep veins is performed from the hip to the calf with compression sonography and color and pulse Doppler assessment. Spectral analysis with color-flow imaging is performed. FINDINGS: There is normal venous compression and respiratory variation and augmented flow. The visualized common femoral vein, superficial femoral vein, profunda femoral vein, popliteal vein, and the trifurcation region shows no evidence of deep venous thrombosis. There is no significant popliteal fossa cyst. There is limited visualization of the calf veins. US/US venous duplex LE RT IMPRESSION: No acute DVT demonstrated in the right lower extremity.
--- NOTE | ~2022-06-13 | XR_ITS ---
EXAMINATION: XR CHEST CLINICAL INFORMATION: Coughing. COMPARISON: 09/06/[address] scan dating back to 06/03/2022. TECHNIQUE: AP portable view of the chest was obtained. FINDINGS: There is some discoid atelectasis seen within the mid to lower left lung. No new confluent parenchymal disease is appreciated. Patient status post median sternotomy. Coronary artery stent is seen in place. Heart normal size. No evidence of pulmonary edema. No pneumothorax or significant pleural effusion. Calcific density overlying the clavicle is seen on previous CT scan to lie within the soft tissues anterior to the anterior aspect of the right 1st rib. XR/XR chest 1V IMPRESSION: No significant acute parenchymal disease.
--- NOTE | ~2022-06-13 | XR_ITS ---
EXAMINATION: XR HIP, RIGHT CLINICAL INFORMATION: Pain. Fall. COMPARISON: Previous CT of the abdomen and pelvis June 2022 TECHNIQUE: Two views of the right hip and one view of the pelvis. FINDINGS: Bone alignment is normal. No fracture or dislocation. There is bilateral hip arthritis. Bones of the pelvis are normal. There are degenerative changes of the visualized lower lumbar spine. There is evidence of atherosclerotic disease. XR/XR hip RT w PEL1V IMPRESSION: Arthritis. No fracture or dislocation.
--- NOTE | ~2022-06-13 | CT_ITS ---
Indication: Fall, pain EXAMINATION: CT brain, CT cervical spine. Comparison previous dated 06/03/2022. Axial imaging with coronal and sagittal reformatted images. Radiation dose [address] examination was performed using dose optimization techniques as appropriate, variously including the following: *Automated exposure control *Adjustment of mA and/or kV according to patient size (this includes techniques or standardized protocols for targeted exams where dose is matched to indication/reason for exam; i.e. extremities or head) *Use of iterative reconstruction technique. CT brain; There is no midline shift. There is no mass effect. There is no hemorrhage. The basal cisterns appear patent. The posterior fossa is grossly within normal limits. There is no extra-axial collection. Scattered areas of white matter ischemic changes. There is no evidence for fracture on the bone windows. Chronic appearing left mastoid region. CT cervical spine; No acute fracture or dislocation. Postsurgical and degenerative changes are noted CT/CT head/brain wo IV con IMPRESSION: Negative acute noncontrast CT of the brain. No acute fracture or dislocation of the cervical spine
--- NOTE | ~2022-06-13 | XR_ITS ---
EXAMINATION: XR CHEST CLINICAL INFORMATION: Cough COMPARISON: Portable chest 06/15/2022; CTA chest 06/15/2022 TECHNIQUE: Portable upright view of the chest was obtained. FINDINGS: There is no lobar or segmental airspace consolidation, groundglass opacity, or effusion. Subsegmental atelectasis is present left mid zone. The costophrenic sulci are clear. The heart is normal in size. There is been prior median sternotomy. The hilar and mediastinal contours are normal. There is a circumscribed nodular density under 1 cm overlying the right medial clavicle. This is not demonstrated on prior chest or CT and could represent artifact rather than nodule given the short time course. XR/XR chest 1V IMPRESSION: 1. Subsegmental atelectasis left mid zone. 2. No lobar or segmental airspace consolidation or groundglass opacity. 3. Circumscribed nodular density under 1 cm overlying right medial clavicle, possibly artifact. Recommend follow-up apical lordotic chest.
--- NOTE | ~2022-06-13 | CT_ITS ---
EXAMINATION: CT CHEST, ABDOMEN AND PELVIS WITH CONTRAST CLINICAL INFORMATION: Trauma COMPARISON: CT chest 06/03/2022 TECHNIQUE: Multidetector volumetric imaging was performed of the chest, abdomen and pelvis following administration of 85 mL Omnipaque 350 intravenous contrast. Oral contrast was administered. Sagittal and coronal reformatted images were obtained on the technologist's workstation. This CT examination was performed using dose optimization techniques as appropriate, variously including the following: *Automated exposure control *Adjustment of mA and/or kV according to patient size (this includes techniques or standardized protocols for targeted exams where dose is matched to indication/reason for exam; i.e. extremities or head) *Use of iterative reconstruction technique DLP: 570 mGy-cm FINDINGS: CHEST: CHEST WALL: Bilateral gynecomastia. AXILLA: No lymphadenopathy. MEDIASTINUM: Heart is normal in size. No mediastinal lymphadenopathy. No hilar lymphadenopathy. Post surgical changes of prior CABG. Coronary artery calcification and coronary artery stents. CORONARY ARTERY CALCIFICATION: No significant coronary artery calcification appreciated on this exam. PLEURA: There is no pleural effusion. LUNGS: Respiratory motion somewhat limits evaluation of the lung bases. Left lower lobe pulmonary micronodule, 9:264. 4 mm groundglass left upper lobe pulmonary nodule, 9:352. Left lower lobe pulmonary micronodule, 9:236. ABDOMEN AND PELVIS: ABDOMINAL AND PELVIC WALL: Unremarkable. LIVER AND BILIARY TREE: Unremarkable. GALLBLADDER: Cholelithiasis without evidence of acute cholecystitis. PANCREAS: 2 adjacent fluid attenuation lesions centered in the pancreatic tail may reflect adjacent pancreatic cysts, measuring overall 1.3 cm however definitive evaluation with contrast-enhanced MR/MRCP is recommended. SPLEEN: Unremarkable. ADRENAL GLANDS: Unremarkable. KIDNEYS AND URETERS: Bosniak 1 benign-appearing right renal cyst, no imaging follow-up recommended. Left renal hypodensity too small to characterize. GASTROINTESTINAL TRACT: Small hiatal hernia. Colonic diverticulosis without evidence of diverticulitis. VASCULAR: Unremarkable. LYMPH NODES: No lymphadenopathy. FREE FLUID: No free fluid. BLADDER: Unremarkable. PELVIC VISCERA: Unremarkable. OSSEOUS STRUCTURES: Multilevel degenerative disc disease in the spine. CT/CT abdomen pelvis w IV con IMPRESSION: * No evidence of traumatic injury in the chest, abdomen or pelvis. * Two adjacent fluid attenuation lesions centered in the pancreatic tail may reflect adjacent pancreatic cysts, measuring overall 1.3 cm however definitive evaluation with contrast-enhanced MR/MRCP is recommended. * Few solid pulmonary micronodules. Assuming patient has no history of malignancy, recommend follow-up per Fleischner Society recommendations. According to the UPDATED 2017 Fleischner Society recommendations, the advised followup imaging for solid nodules < 6 mm is: LOW RISK PATIENT: No routine follow up. HIGH RISK PATIENT: Optional CT at 12 months. * Cholelithiasis without evidence of acute cholecystitis. * A 4 mm groundglass left upper lobe pulmonary nodules also seen. Assuming patient has no history of malignancy, recommend follow-up per Fleischner Society recommendations. According to the UPDATED 2017 Fleischner Society recommendations, the advised followup imaging for a single subsolid nodule <6 mm is: No routine follow up is needed.
--- NOTE | ~2022-06-13 | XR_ITS ---
EXAMINATION: XR CHEST CLINICAL INFORMATION: Hypoxia COMPARISON: CT scan of June 13, 2022 TECHNIQUE: AP portable view of the chest was obtained. FINDINGS: There are small lung volumes. There is some increased density seen about the left lung base medially as well as some increased groundglass opacification. No significant pleural effusion is identified. Heart normal size. No evidence of pulmonary edema. No pneumothorax or significant pleural effusion. Status post median sternotomy. XR/XR chest 1V IMPRESSION: Probable left lower lung atelectasis.
--- NOTE | ~2022-06-13 | CT_ITS ---
EXAMINATION: CT HEAD WITHOUT CONTRAST CLINICAL INFORMATION: The shoulder COMPARISON: None TECHNIQUE: Contiguous axial imaging was performed from the skull base to vertex without intravenous administration of contrast. This CT examination was performed using dose optimization techniques as appropriate, variously including the following: *Automated exposure control *Adjustment of mA and/or kV according to patient size (this includes techniques or standardized protocols for targeted exams where dose is matched to indication/reason for exam; i.e. extremities or head) *Use of iterative reconstruction technique DLP: 923 mGy-cm FINDINGS: There are new areas of small extra-axial probable subarachnoid hemorrhage adjacent to the left posterior parietal lobe and bilateral occipital lobes. There is new dependent high attenuation seen in the occipital horns of the bilateral lateral ventricles suggestive of small amount of intraventricular hemorrhage as well.. There is no evidence of an extra-axial collection. The ventricles and extra-axial CSF spaces are prominent. There is nonspecific periventricular white matter disease. No mass, mass effect or infarct. No skull fracture. There is soft tissue opacification of the left mastoid air cells that is stable. Visualized paranasal sinuses right mastoid air cells and middle ears are otherwise clear. CT/CT head/brain wo IV con IMPRESSION: New small areas of extra-axial hemorrhage adjacent to the left posterior parietal lobe, bilateral occipital lobes and in the occipital horns of both lateral ventricles. Generalized atrophy and nonspecific periventricular white matter disease. Chronic left mastoid air cell disease. Findings were communicated to Dr. Freedman by telephone on 06/26/2022 at 11:40 AM
--- NOTE | 2022-06-13 16:06 | ED.FALL ---
HPI - Fall General Chief Complaint: Fall <JOSE GUADALUPE Elizalde - Last Filed: 06/13/22 23:42> Stated Complaint: fall <JOSE GUADALUPE Elizalde - Last Filed: 06/13/22 23:42> Time Seen by Provider: 06/13/22 16:05 <JOSE GUADALUPE Elizalde - Last Filed: 06/13/22 23:42> Source: patient <JOSE GUADALUPE Elizalde - Last Filed: 06/13/22 23:42> Mode of arrival: ambulatory <JOSE GUADALUPE Elizalde Last Filed: 06/13/22 23:42> Limitations: no limitations <JOSE GUADALUPE Elizalde Last Filed: 06/13/22 23:42> History of Present Illness HPI Narrative: This is a 81-year-old male history of hypertension, diabetes, hyperlipidemia presenting to the emergency department with complaints of fall yesterday and now generalized body aches and pains and dizziness. Patient tells me yesterday he was walking out of [facility] and suddenly he became dizzy and he fell to the ground, he tells me that he thinks that his sugar was low and that is why he fell, he tells me he fell straight onto his lower back, he tells me he does not think he hit his head, no loss of consciousness. Tells me he is not on blood thinners. Patient tells me secondary to pain and discomfort he has not been able to walk well. He reports the pain is localize to the mid/lower back, tells me at baseline he has some urinary incontinence however this has not changed since the fall, no bowel incontinence or retention, no saddle paresthesias. Patient also reporting dizziness worse with positional changes. Describes the dizziness as disequilibrium and the room spinning. Pains worse with movement better at rest. At this time patient denies chest pain, shortness of breath, nausea, vomiting, vision changes NIHSS 0 GCS 15 <JOSE GUADALUPE Elizalde Last Filed: 06/13/22 23:42> Related Data Home Medications: Home Medications Medication Instructions Recorded Confirmed insulin human U-100 NPH-regulr 40 unit subcut DAILY@1300 06/14/22 06/14/22 70-30 mix 100 unit/mL subcutaneous susp insulin human U-100 NPH-regulr 60 unit subcut DAILY 06/14/22 06/14/22 70-30 mix 100 unit/mL subcutaneous susp Previous Rx's Medication Instructions Recorded insulin syringe-needle U-100 1 mL #100 ea 06/18/21 31 gauge x 5/16 (BD Insulin Syringe Ultra-Fine) blood sugar diagnostic (FreeStyle #100 ea 11/09/21 Test strips) rosuvastatin 10 mg tablet (Crestor) 10 mg PO DAILY 90 days #90 tabs 02/06/22 cholecalciferol (vitamin D3) 50 50 mcg PO DAILY #90 caps 02/20/22 mcg (2,000 unit) capsule losartan 25 mg tablet 25 mg PO DAILY 90 days #90 tabs 03/08/22 metformin 850 mg tablet 850 mg PO TID 90 days #270 tabs 04/10/22 hydralazine 25 mg tablet 25 mg PO BID 90 days #180 tabs 04/19/22 metoprolol tartrate 100 mg tablet 100 mg PO BID 90 days #180 tabs 04/19/22 <JOSE GUADALUPE Elizalde - Last Filed: 06/13/22 23:42> Allergies/Adverse Reactions: Allergies Allergy/AdvReac Type Severity Reaction Status Date / Time Nxryonx-AEU-YxH Reductase Allergy Mild Burning Verified 03/29/22 11:45 Inhibitor sensation [Ivnkyrw-Egz-Nvd Reductase Inhibitor] all statins except crestor Allergy Unknown burning Uncoded 07/16/19 00:00 sensations in legs <JOSE GUADALUPE Elizalde - Last Filed: 06/13/22 23:42> Review of Systems Review of Systems: Constitutional : No Weight loss, No Fever, No Chills, No Fatigue, No Malaise ENT/Mouth : No sore throat, No Rhinorrhea Eyes: No Eye Pain, No Swelling, No Redness Cardiovascular : No Chest Pain, No SOB, No Dyspnea on Exertion, No Orthopnea, No Edema, No Palpitations Respiratory : No Cough, No Sputum, No Wheezing Gastrointestinal : No Nausea, No Vomiting, No Diarrhea, No Constipation, No abdominal Pain, No Hematochezia, No Melena Genitourinary : No Dysuria, No Urinary Frequency, No Hematuria, Musculoskeletal : + joint pain, No Myalgias, No Joint Swelling Skin : No Skin Lesions, No rash Neuro : + Weakness, No Numbness, + Dizziness, No Headache Psych : No Anxiety/Panic, No Depression Heme/Lymph: No Bruising, No Bleeding,No Lymphadenopathy Endocrine : No Polyuria, No Polydipsia All other systems reviewed and are negative <JOSE GUADALUPE Elizalde - Last Filed: 06/13/22 23:42> Yes all other systems are reviewed and are negative <JOSE GUADALUPE Elizalde - Last Filed: 06/13/22 23:42> [facility] Past Medical History Attestation statement: The following information was validated with the patient. <JOSE GUADALUPE Elizalde - Last Filed: 06/13/22 23:42> Source: old records reviewed and nursing notes reviewed <JOSE GUADALUPE Elizalde - Last Filed: 06/13/22 23:42> Medical History: Medical History Diabetes mellitus with coincident hypertension Hyperlipidemia Hypertension <JOSE GUADALUPE Elizalde - Last Filed: 06/13/22 23:42> Surgical History: Surgical History H/O heart surgery <JOSE GUADALUPE Elizalde - Last Filed: 06/13/22 23:42> Family History Family History: Family History Mother No problems noted. Father No problems noted. <JOSE GUADALUPE Elizalde - Last Filed: 06/13/22 23:42> Social History Social History: Social History Housing: House Alcohol intake: never Patient Tobacco Use Status: Former Tobacco user Tobacco use type: Cigarette Smoked in Last 30 Days: No e-Cigarette/Vaping Use: Never Used Second Hand Smoke Exposure: No Use of substances other than those prescribed or required for medical reasons: No Advance Directives: No Advance Directives Information Provided: No service: Yes Current occupational status: retired Cognitive needs: Yes (walker) Hearing needs: No Vision needs: Yes (glasses) <JOSE GUADALUPE Elizalde - Last Filed: 06/13/22 23:42> Physical Exam Vital Signs: Vital Signs: Last Vital Signs Temp 98.4 F 06/14/22 12:52 Pulse 87 06/14/22 12:52 Resp 20 06/14/22 12:52 BP 197/83 H 06/14/22 12:52 Pulse Ox 93 06/14/22 12:52 O2 Del Method 06/14/22 12:52 O2 Flow Rate 2 06/14/22 12:52 BMI result Body Mass Index 26.6 vss <JOSE GUADALUPE Elizalde - Last Filed: 06/13/22 23:42> Vital Signs: Last Vital Signs Temp 98.4 F 06/14/22 12:52 Pulse 87 06/14/22 12:52 Resp 20 06/14/22 12:52 BP 197/83 H 06/14/22 12:52 Pulse Ox 93 06/14/22 12:52 O2 Del Method 06/14/22 12:52 O2 Flow Rate 2 06/14/22 12:52 BMI result Body Mass Index 26.6 <JOSE GUADALUPE Coronado - Last Filed: 06/14/22 14:26> Appearance: Alert.? Oriented X3.? No acute distress.? Head: Normocephalic, atraumatic, no step-offs or deformities Eyes: Pupils equal, round and reactive to light.? ENT: Pharynx normal.? Neck: Normal inspection.? Neck supple.? CVS: Normal heart rate and rhythm.? Pulses normal.? Respiratory: No respiratory distress.? Breath sounds normal.? Abdomen: Soft and nontender.? Skin: Skin warm and dry.? Normal skin color.? Normal skin turgor.? Extremities: No lower extremity edema.? No calf ttp. Global weakness Back: No midline tenderness, no C-spine tenderness, full range of motion however painful flexion and extension, no CVA tenderness bilaterally Neuro: Oriented X 3.? No motor deficit.? No sensory deficit. CN 2-12 intact . Normal fvyoyx-un-eitc, qfjc-rh-mzlv, normal rapid alternating movements. NIHSS- 0 GCS- 15 <JOSE GUADALUPE Elizalde - Last Filed: 06/13/22 23:42> Course Reevaluation(s) Reevaluation #1: CBC appears to be around patient's baseline. Chemistry with low magnesium will give 1 g of IV Mag at this time. No other electrolyte abnormalities requiring intervention. Coags no acute findings requiring intervention. COVID negative. <JOSE GUADALUPE Elizalde - Last Filed: 06/13/22 23:42> Time: 19:30 <JOSE GUADALUPE Elizalde - Last Filed: 06/13/22 23:42> Reevaluation #2: UA without infection. CT with no evidence of traumatic injury in the chest, abdomen or pelvis, incidental findings noted, attached him to patient's discharge and discussed with patient. CT of the cervical spine with no acute fracture dislocations. Negative acute noncontrast CT of the brain. Orthostatic vitals negative, patient reports dizziness with positional changes. Will give fluids at this time. Repeat BMP, magnesium, troponin and ambulatory trial. <JOSE GUADALUPE Elizalde - Last Filed: 06/13/22 23:42> Time: 20:41 <JOSE GUADALUPE Elizalde - Last Filed: 06/13/22 23:42> Reevaluation #3: Repeat BMP within much improved magnesium level, random glucose also went down. Troponin not meeting delta criteria, patient without chest pain or shortness of breath, EKG nonischemic. Low suspicion for CHF, ACS. Unlikely that this is PE. History and physical exam not consistent with dissection. Patient feeling better. Pending ambulatory trial <JOSE GUADALUPE Elizalde - Last Filed: 06/13/22 23:42> Time: 22:47 <JOSE GUADALUPE Elizalde - Last Filed: 06/13/22 23:42> Additional Reevaluation(s): I had patient ambulate around the department with nursing, patient ambulated with walker into a cyst in very unsteady on his feet. Concerns that patient may go home and follow again as he does live by himself. At this time I will place patient into physician observation to allow more time to be evaluated by Physical therapy and Case Management. Time observation was started patient common cooperative vital signs stable, physical exam unchanged from initial. <JOSE GUADALUPE Elizalde - Last Filed: 06/13/22 23:42> I had patient ambulate around the department with nursing, patient ambulated with walker into a cyst in very unsteady on his feet. Concerns that patient may go home and follow again as he does live by himself. At this time I will place patient into physician observation to allow more time to be evaluated by Physical therapy and Case Management. Time observation was started patient common cooperative vital signs stable, physical exam unchanged from initial. 06/14 @ 14:22 - physician observation continued. Patient was seen by Physical therapy today who is recommending short-term rehab to optimize functions. He is complaining of 9/10 low back pain. He is unable to be assessed for transfers and standing due to ongoing dizziness. Concern for possible posterior stroke. He continues to feel terrible with ongoing dizziness. Will get MRI. <JOSE GUADALUPE Coronado - Last Filed: 06/14/22 14:26> Medications Administered Discontinued Medications Generic Name Dose Route Start Last Admin Trade Name Freq PRN Reason Stop Dose Admin Magnesium Sulfate/Dextrose 1 gm in 100 mls @ 100 mls/hr 06/13/22 18:10 06/13/22 20:42 Magnesium Sulfate/D5w IV 06/13/22 19:09 Infused ONCE ONE Infusion Sodium Chloride 1,000 mls @ 999 mls/hr 06/13/22 20:45 06/13/22 22:38 Ns IV 06/13/22 21:45 Infused .Q1H1M NICOLE Infusion Iohexol 100 ml 06/13/22 18:54 06/13/22 18:54 Iohexol 350 Mg/Ml 100 Ml Infus..Btl IV 06/13/22 18:55 85 ml ONCE ONE Administration Morphine Sulfate 4 mg 06/13/22 20:34 06/13/22 20:42 Morphine Sulfate 4 Mg/Ml Cartridge IVPUSH 06/13/22 20:35 4 mg ONCE ONE Administration Protocol Ondansetron HCl 4 mg 06/13/22 20:48 06/13/22 21:07 Ondansetron Hcl 4 Mg/2 Ml Vial IVPUSH 06/13/22 20:49 4 mg ONCE ONE Administration <JOSE GUADALUPE Elizalde - Last Filed: 06/13/22 23:42> Medications Administered Discontinued Medications Generic Name Dose Route Start Last Admin Trade Name Freq PRN Reason Stop Dose Admin Magnesium Sulfate/Dextrose 1 gm in 100 mls @ 100 mls/hr 06/13/22 18:10 06/13/22 20:42 Magnesium Sulfate/D5w IV 06/13/22 19:09 Infused ONCE ONE Infusion Sodium Chloride 1,000 mls @ 999 mls/hr 06/13/22 20:45 06/13/22 22:38 Ns IV 06/13/22 21:45 Infused .Q1H1M NICLOE Infusion Iohexol 100 ml 06/13/22 18:54 06/13/22 18:54 Iohexol 350 Mg/Ml 100 Ml Infus..Btl IV 06/13/22 18:55 85 ml ONCE ONE Administration Morphine Sulfate 4 mg 06/13/22 20:34 06/13/22 20:42 Morphine Sulfate 4 Mg/Ml Cartridge IVPUSH 06/13/22 20:35 4 mg ONCE ONE Administration Protocol Ondansetron HCl 4 mg 06/13/22 20:48 06/13/22 21:07 Ondansetron Hcl 4 Mg/2 Ml Vial IVPUSH 06/13/22 20:49 4 mg ONCE ONE Administration <JOSE GUADALUPE Coronado - Last Filed: 06/14/22 14:26> MDM - Fall MDM Narrative Medical decision making narrative: 1611 81-year-old male presents status post fall yesterday complaining of body aches and pains, dizziness, weakness. Tells me he fell secondary to dizziness yesterday at [facility]. Not on blood thinners. Physical examination with global weakness however no focal neuro deficits, normal cerebellar function. Regular rate and rhythm. Lungs clear. Abdomen soft nontender nondistended. Patient following commands, answering questions appropriately. Alert and oriented x4 Plan at this time is to obtain basic labs, EKG, troponin, urine, richardson scan as patient fell and had a trauma will rule out internal bleeding injuries. Will also rule out fractures and dislocations. Will rule out orthostatic hypotension as well as electrolyte abnormalities. Unlikely cauda equina or epidural abscess. <JOSE GUADALUPE Elizalde - Last Filed: 06/13/22 23:42> Medical Records Attestation: I reviewed the patient's medical records. <JOSE GUADALUPE Elizalde Last Filed: 06/13/22 23:42> Lab Data Attestation: I reviewed the patient's lab results. <JOSE GUADALUPE Elizalde Last Filed: 06/13/22 23:42> Result diagrams: : 06/13/22 16:40 06/13/22 21:19 <JOSE GUADALUPE Elizalde - Last Filed: 06/13/22 23:42> Labs: Lab Results 06/13/22 06/13/22 06/13/22 Range/Units 16:40 16:40 16:40 WBC 8.7 (4.8-10.8) X10*3/uL RBC 4.56 L (4.60-5.80) X10*6/uL Hgb 12.7 L (14.0-18.0) g/dl Hct 38.7 L (42.0-52.0) % MCV 84.9 (80.0-98.0) fL MCH 27.9 (27.0-33.0) pg MCHC 32.8 (31.0-36.0) g/dl RDW 14.4 (11.0-16.0) % Plt Count 143 L (160-400) X10*3/uL MPV 10.5 (9.4-12.4) fL Immature Gran % (Auto) 0.3 (0.0-0.4) % Neut % (Auto) 75.5 H (45-73) % Lymph % (Auto) 18.0 L (20-40) % [place] % (Auto) 5.4 (2-11) % Eos % (Auto) 0.5 (0-4) % Baso % (Auto) 0.3 (0-2) % Lymph # (Auto) 1.6 (1.2-4.9) X10*3/uL [place] # (Auto) 0.5 (0.1-1.2) X10*3/uL Eos # (Auto) 0.0 (0.0-0.4) X10*3/uL Baso # (Auto) 0.0 (0.0-0.2) X10*3/uL Abs Immat Gran (auto) 0.03 (0.00-0.03) X10*3/uL Absolute Neuts (auto) 6.5 (2.0-8.3) x10*3/uL Absolute Nucleated RBC 0.000 (0.0-0.012) X10*3/uL Nucleated RBC % (auto) 0.0 (0.0-0.2) /100WBC PT 14.6 H (10.0-13.1) SEC INR 1.3 H (0.9-1.1) Sodium (135-145) mmol/L Potassium (3.3-5.1) mmol/L Chloride (96-108) mmol/L Carbon Dioxide (22-29) mmol/L Anion Gap (12-20) BUN (9-16) mg/dL Creatinine (0.5-1.4) mg/dL Estim Creat Clear Calc Estimated GFR Random Glucose (60-115) mg/dL Calcium (8.4-10.2) mg/dL Magnesium (1.6-2.6) mg/dL Total Bilirubin (0.0-1.0) mg/dL AST (5-37) U/L ALT (0-40) U/L Alkaline Phosphatase (39-117) U/L Total Creatine Kinase (38-174) U/L Troponin I High Sens (<3.5-35.0) ng/L B-Natriuretic Peptide (<100) pg/mL Total Protein (6.5-8.0) g/dL Albumin (3.5-5.0) g/dL Urine Color Urine Appearance Urine pH (5.0-9.0) Ur Specific [place] (1.005-1.025) Urine Protein (Neg-Trace) mg/dL Urine Glucose (UA) (Negative) mg/dL Urine Ketones (Negative) mg/dL Urine Blood (Negative) Urine Nitrite (Negative) Ur Leukocyte Esterase (Negative) Urine RBC (0-2) /HPF Urine WBC (0-5) /HPF Ur Squamous Epith Cells (0-2) /HPF Urine Bacteria (None Seen) Hyaline Casts (0-2) /LPF COVID-19 ([facility]) Negative (Negative) COVID-19 Clin Com See Note 06/13/22 06/13/22 06/13/22 Range/Units 16:40 16:40 17:36 WBC (4.8-10.8) X10*3/uL RBC (4.60-5.80) X10*6/uL Hgb (14.0-18.0) g/dl Hct (42.0-52.0) % MCV (80.0-98.0) fL MCH (27.0-33.0) pg MCHC (31.0-36.0) g/dl RDW (11.0-16.0) % Plt Count (160-400) X10*3/uL MPV (9.4-12.4) fL Immature Gran % (Auto) (0.0-0.4) % Neut % (Auto) (45-73) % Lymph % (Auto) (20-40) % [place] % (Auto) (2-11) % Eos % (Auto) (0-4) % Baso % (Auto) (0-2) % Lymph # (Auto) (1.2-4.9) X10*3/uL [place] # (Auto) (0.1-1.2) X10*3/uL Eos # (Auto) (0.0-0.4) X10*3/uL Baso # (Auto) (0.0-0.2) X10*3/uL Abs Immat Gran (auto) (0.00-0.03) X10*3/uL Absolute Neuts (auto) (2.0-8.3) x10*3/uL Absolute Nucleated RBC (0.0-0.012) X10*3/uL Nucleated RBC % (auto) (0.0-0.2) /100WBC PT (10.0-13.1) SEC INR (0.9-1.1) Sodium 140 (135-145) mmol/L Potassium 4.4 (3.3-5.1) mmol/L Chloride 103 (96-108) mmol/L Carbon Dioxide 23 (22-29) mmol/L Anion Gap 18 (12-20) BUN 15 (9-16) mg/dL Creatinine 0.69 (0.5-1.4) mg/dL Estim Creat Clear Calc 86.8 Estimated GFR > 60 Random Glucose 191 H (60-115) mg/dL Calcium 9.1 (8.4-10.2) mg/dL Magnesium 1.4 L* (1.6-2.6) mg/dL Total Bilirubin 0.7 (0.0-1.0) mg/dL AST 25 (5-37) U/L ALT 19 (0-40) U/L Alkaline Phosphatase 51 (39-117) U/L Total Creatine Kinase 224 H (38-174) U/L Troponin I High Sens 14.8 (<3.5-35.0) ng/L B-Natriuretic Peptide 175 H (<100) pg/mL Total Protein 7.1 (6.5-8.0) g/dL Albumin 4.3 (3.5-5.0) g/dL Urine Color Urine Appearance Urine pH (5.0-9.0) Ur Specific [place] (1.005-1.025) Urine Protein (Neg-Trace) mg/dL Urine Glucose (UA) (Negative) mg/dL Urine Ketones (Negative) mg/dL Urine Blood (Negative) Urine Nitrite (Negative) Ur Leukocyte Esterase (Negative) Urine RBC (0-2) /HPF Urine WBC (0-5) /HPF Ur Squamous Epith Cells (0-2) /HPF Urine Bacteria (None Seen) Hyaline Casts (0-2) /LPF COVID-19 ([facility]) (Negative) COVID-19 Clin Com 06/13/22 06/13/22 06/13/22 Range/Units 19:53 21:19 21:19 WBC (4.8-10.8) X10*3/uL RBC (4.60-5.80) X10*6/uL Hgb (14.0-18.0) g/dl Hct (42.0-52.0) % MCV (80.0-98.0) fL MCH (27.0-33.0) pg MCHC (31.0-36.0) g/dl RDW (11.0-16.0) % Plt Count (160-400) X10*3/uL MPV (9.4-12.4) fL Immature Gran % (Auto) (0.0-0.4) % Neut % (Auto) (45-73) % Lymph % (Auto) (20-40) % [place] % (Auto) (2-11) % Eos % (Auto) (0-4) % Baso % (Auto) (0-2) % Lymph # (Auto) (1.2-4.9) X10*3/uL [place] # (Auto) (0.1-1.2) X10*3/uL Eos # (Auto) (0.0-0.4) X10*3/uL Baso # (Auto) (0.0-0.2) X10*3/uL Abs Immat Gran (auto) (0.00-0.03) X10*3/uL Absolute Neuts (auto) (2.0-8.3) x10*3/uL Absolute Nucleated RBC (0.0-0.012) X10*3/uL Nucleated RBC % (auto) (0.0-0.2) /100WBC PT (10.0-13.1) SEC INR (0.9-1.1) Sodium 139 (135-145) mmol/L Potassium 4.1 (3.3-5.1) mmol/L Chloride 102 (96-108) mmol/L Carbon Dioxide 25 (22-29) mmol/L Anion Gap 16 (12-20) BUN 13 (9-16) mg/dL Creatinine 0.65 (0.5-1.4) mg/dL Estim Creat Clear Calc 92.1 Estimated GFR > 60 Random Glucose 165 H (60-115) mg/dL Calcium 8.6 (8.4-10.2) mg/dL Magnesium 1.6 (1.6-2.6) mg/dL Total Bilirubin (0.0-1.0) mg/dL AST (5-37) U/L ALT (0-40) U/L Alkaline Phosphatase (39-117) U/L Total Creatine Kinase (38-174) U/L Troponin I High Sens 16.7 (<3.5-35.0) ng/L B-Natriuretic Peptide (<100) pg/mL Total Protein (6.5-8.0) g/dL Albumin (3.5-5.0) g/dL Urine Color Yellow Urine Appearance Clear Urine pH 7.0 (5.0-9.0) Ur Specific [place] >= 1.030 H (1.005-1.025) Urine Protein 300 (3+) H (Neg-Trace) mg/dL Urine Glucose (UA) 500 H (Negative) mg/dL Urine Ketones Trace (Negative) mg/dL Urine Blood Trace H (Negative) Urine Nitrite Negative (Negative) Ur Leukocyte Esterase Negative (Negative) Urine RBC 3-5 H (0-2) /HPF Urine WBC 0-5 (0-5) /HPF Ur Squamous Epith Cells 0-2 (0-2) /HPF Urine Bacteria None Seen (None Seen) Hyaline Casts 0-2 (0-2) /LPF COVID-19 ([facility]) (Negative) COVID-19 Clin Com <JOSE GUADALUPE Elizalde - Last Filed: 06/13/22 23:42> Lab Results 06/13/22 06/13/22 06/13/22 Range/Units 16:40 16:40 16:40 WBC 8.7 (4.8-10.8) X10*3/uL RBC 4.56 L (4.60-5.80) X10*6/uL Hgb 12.7 L (14.0-18.0) g/dl Hct 38.7 L (42.0-52.0) % MCV 84.9 (80.0-98.0) fL MCH 27.9 (27.0-33.0) pg MCHC 32.8 (31.0-36.0) g/dl RDW 14.4 (11.0-16.0) % Plt Count 143 L (160-400) X10*3/uL MPV 10.5 (9.4-12.4) fL Immature Gran % (Auto) 0.3 (0.0-0.4) % Neut % (Auto) 75.5 H (45-73) % Lymph % (Auto) 18.0 L (20-40) % [place] % (Auto) 5.4 (2-11) % Eos % (Auto) 0.5 (0-4) % Baso % (Auto) 0.3 (0-2) % Lymph # (Auto) 1.6 (1.2-4.9) X10*3/uL [place] # (Auto) 0.5 (0.1-1.2) X10*3/uL Eos # (Auto) 0.0 (0.0-0.4) X10*3/uL Baso # (Auto) 0.0 (0.0-0.2) X10*3/uL Abs Immat Gran (auto) 0.03 (0.00-0.03) X10*3/uL Absolute Neuts (auto) 6.5 (2.0-8.3) x10*3/uL Absolute Nucleated RBC 0.000 (0.0-0.012) X10*3/uL Nucleated RBC % (auto) 0.0 (0.0-0.2) /100WBC PT 14.6 H (10.0-13.1) SEC INR 1.3 H (0.9-1.1) Sodium (135-145) mmol/L Potassium (3.3-5.1) mmol/L Chloride (96-108) mmol/L Carbon Dioxide (22-29) mmol/L Anion Gap (12-20) BUN (9-16) mg/dL Creatinine (0.5-1.4) mg/dL Estim Creat Clear Calc Estimated GFR Random Glucose (60-115) mg/dL Calcium (8.4-10.2) mg/dL Magnesium (1.6-2.6) mg/dL Total Bilirubin (0.0-1.0) mg/dL AST (5-37) U/L ALT (0-40) U/L Alkaline Phosphatase (39-117) U/L Total Creatine Kinase (38-174) U/L Troponin I High Sens (<3.5-35.0) ng/L B-Natriuretic Peptide (<100) pg/mL Total Protein (6.5-8.0) g/dL Albumin (3.5-5.0) g/dL Urine Color Urine Appearance Urine pH (5.0-9.0) Ur Specific [place] (1.005-1.025) Urine Protein (Neg-Trace) mg/dL Urine Glucose (UA) (Negative) mg/dL Urine Ketones (Negative) mg/dL Urine Blood (Negative) Urine Nitrite (Negative) Ur Leukocyte Esterase (Negative) Urine RBC (0-2) /HPF Urine WBC (0-5) /HPF Ur Squamous Epith Cells (0-2) /HPF Urine Bacteria (None Seen) Hyaline Casts (0-2) /LPF COVID-19 ([facility]) Negative (Negative) COVID-19 Clin Com See Note 06/13/22 06/13/22 06/13/22 Range/Units 16:40 16:40 17:36 WBC (4.8-10.8) X10*3/uL RBC (4.60-5.80) X10*6/uL Hgb (14.0-18.0) g/dl Hct (42.0-52.0) % MCV (80.0-98.0) fL MCH (27.0-33.0) pg MCHC (31.0-36.0) g/dl RDW (11.0-16.0) % Plt Count (160-400) X10*3/uL MPV (9.4-12.4) fL Immature Gran % (Auto) (0.0-0.4) % Neut % (Auto) (45-73) % Lymph % (Auto) (20-40) % [place] % (Auto) (2-11) % Eos % (Auto) (0-4) % Baso % (Auto) (0-2) % Lymph # (Auto) (1.2-4.9) X10*3/uL [place] # (Auto) (0.1-1.2) X10*3/uL Eos # (Auto) (0.0-0.4) X10*3/uL Baso # (Auto) (0.0-0.2) X10*3/uL Abs Immat Gran (auto) (0.00-0.03) X10*3/uL Absolute Neuts (auto) (2.0-8.3) x10*3/uL Absolute Nucleated RBC (0.0-0.012) X10*3/uL Nucleated RBC % (auto) (0.0-0.2) /100WBC PT (10.0-13.1) SEC INR (0.9-1.1) Sodium 140 (135-145) mmol/L Potassium 4.4 (3.3-5.1) mmol/L Chloride 103 (96-108) mmol/L Carbon Dioxide 23 (22-29) mmol/L Anion Gap 18 (12-20) BUN 15 (9-16) mg/dL Creatinine 0.69 (0.5-1.4) mg/dL Estim Creat Clear Calc 86.8 Estimated GFR > 60 Random Glucose 191 H (60-115) mg/dL Calcium 9.1 (8.4-10.2) mg/dL Magnesium 1.4 L* (1.6-2.6) mg/dL Total Bilirubin 0.7 (0.0-1.0) mg/dL AST 25 (5-37) U/L ALT 19 (0-40) U/L Alkaline Phosphatase 51 (39-117) U/L Total Creatine Kinase 224 H (38-174) U/L Troponin I High Sens 14.8 (<3.5-35.0) ng/L B-Natriuretic Peptide 175 H (<100) pg/mL Total Protein 7.1 (6.5-8.0) g/dL Albumin 4.3 (3.5-5.0) g/dL Urine Color Urine Appearance Urine pH (5.0-9.0) Ur Specific [place] (1.005-1.025) Urine Protein (Neg-Trace) mg/dL Urine Glucose (UA) (Negative) mg/dL Urine Ketones (Negative) mg/dL Urine Blood (Negative) Urine Nitrite (Negative) Ur Leukocyte Esterase (Negative) Urine RBC (0-2) /HPF Urine WBC (0-5) /HPF Ur Squamous Epith Cells (0-2) /HPF Urine Bacteria (None Seen) Hyaline Casts (0-2) /LPF COVID-19 ([facility]) (Negative) COVID-19 Clin Com 06/13/22 06/13/22 06/13/22 Range/Units 19:53 21:19 21:19 WBC (4.8-10.8) X10*3/uL RBC (4.60-5.80) X10*6/uL Hgb (14.0-18.0) g/dl Hct (42.0-52.0) % MCV (80.0-98.0) fL MCH (27.0-33.0) pg MCHC (31.0-36.0) g/dl RDW (11.0-16.0) % Plt Count (160-400) X10*3/uL MPV (9.4-12.4) fL Immature Gran % (Auto) (0.0-0.4) % Neut % (Auto) (45-73) % Lymph % (Auto) (20-40) % [place] % (Auto) (2-11) % Eos % (Auto) (0-4) % Baso % (Auto) (0-2) % Lymph # (Auto) (1.2-4.9) X10*3/uL [place] # (Auto) (0.1-1.2) X10*3/uL Eos # (Auto) (0.0-0.4) X10*3/uL Baso # (Auto) (0.0-0.2) X10*3/uL Abs Immat Gran (auto) (0.00-0.03) X10*3/uL Absolute Neuts (auto) (2.0-8.3) x10*3/uL Absolute Nucleated RBC (0.0-0.012) X10*3/uL Nucleated RBC % (auto) (0.0-0.2) /100WBC PT (10.0-13.1) SEC INR (0.9-1.1) Sodium 139 (135-145) mmol/L Potassium 4.1 (3.3-5.1) mmol/L Chloride 102 (96-108) mmol/L Carbon Dioxide 25 (22-29) mmol/L Anion Gap 16 (12-20) BUN 13 (9-16) mg/dL Creatinine 0.65 (0.5-1.4) mg/dL Estim Creat Clear Calc 92.1 Estimated GFR > 60 Random Glucose 165 H (60-115) mg/dL Calcium 8.6 (8.4-10.2) mg/dL Magnesium 1.6 (1.6-2.6) mg/dL Total Bilirubin (0.0-1.0) mg/dL AST (5-37) U/L ALT (0-40) U/L Alkaline Phosphatase (39-117) U/L Total Creatine Kinase (38-174) U/L Troponin I High Sens 16.7 (<3.5-35.0) ng/L B-Natriuretic Peptide (<100) pg/mL Total Protein (6.5-8.0) g/dL Albumin (3.5-5.0) g/dL Urine Color Yellow Urine Appearance Clear Urine pH 7.0 (5.0-9.0) Ur Specific [place] >= 1.030 H (1.005-1.025) Urine Protein 300 (3+) H (Neg-Trace) mg/dL Urine Glucose (UA) 500 H (Negative) mg/dL Urine Ketones Trace (Negative) mg/dL Urine Blood Trace H (Negative) Urine Nitrite Negative (Negative) Ur Leukocyte Esterase Negative (Negative) Urine RBC 3-5 H (0-2) /HPF Urine WBC 0-5 (0-5) /HPF Ur Squamous Epith Cells 0-2 (0-2) /HPF Urine Bacteria None Seen (None Seen) Hyaline Casts 0-2 (0-2) /LPF COVID-19 (JOS[facility]) (Negative) COVID-19 Clin Com <JOSE GUADALUPE Coronado - Last Filed: 06/14/22 14:26> ECG Data Attestation: I personally reviewed and interpreted this ECG as follows: <JOSE GUADALUPE Elizalde - Last Filed: 06/13/22 23:42> ECG interpretation date: 06/13/22 <JOSE GUADALUPE Elizalde - Last Filed: 06/13/22 23:42> ECG interpretation time: 18:12 <JOSE GUADALUPE Elizalde - Last Filed: 06/13/22 23:42> Prior ECG tracings: available for review <JOSE GUADALUPE Elizalde - Last Filed: 06/13/22 23:42> Interpretation: Ventricular rate of 65, HI normal, QRS normal, QT/QTC normal. EKG with sinus rhythm with marked sinus arrhythmia, right bundle-branch block and left anterior fascicular block, no significant changes when compared to previous EKG of May 2022. <JOSE GUADALUPE Elizalde - Last Filed: 06/13/22 23:42> Critical Care Time Critical Care Time Critical Care Time: No <JOSE GUAADLUPE Elizalde Last Filed: 06/13/22 23:42> Discharge Plan Discharge Clinical Impression: Fall, Dizziness, Weakness, Back pain <JOSE GUADALUPE Elizalde - Last Filed: 06/13/22 23:42> Instructions: Fall Prevention for Older Adults (ED), Weakness (ED), Dizziness (ED), Back Pain (ED), Fall Prevention (ED) <JOSE GUADALUPE Elizalde Last Filed: 06/13/22 23:42> Additional Instructions: Take your medications as prescribed. If you were prescribed antibiotics today, it is important that you take your medication to their entirety, do not skip any doses, do not finish them early. Follow-up with your primary care provider this week. Return to the emergency department with new or worsening symptoms. Such as fevers, chills, chest pain, shortness of breath, nausea, vomiting, dizziness, headache, vision changes, lethargy In case of emergency call 911 CT/CT cervical spine & head/brain wo IV con IMPRESSION: Negative acute noncontrast CT of the brain. ? No acute fracture or dislocation of the cervical spine CT/CT chest & abdomen w IV con IMPRESSION: *? No evidence of traumatic injury in the chest, abdomen or pelvis. *? Two adjacent fluid attenuation lesions centered in the pancreatic tail? may reflect adjacent pancreatic cysts, measuring overall 1.3 cm however definitive evaluation with contrast-enhanced MR/MRCP is recommended. *? Few solid pulmonary micronodules. Assuming patient has no history of malignancy, recommend follow-up per Fleischner Society recommendations. According to the UPDATED 2017 Fleischner Society recommendations, the advised followup imaging for solid nodules < 6 mm is: ?? LOW RISK PATIENT: No routine follow up. ? HIGH RISK PATIENT: Optional CT at 12 months.? *? Cholelithiasis without evidence of acute cholecystitis. *? A 4 mm groundglass left upper lobe pulmonary nodules also seen. Assuming patient has no history of malignancy, recommend follow-up per Fleischner Society recommendations. According to the UPDATED 2017 Fleischner Society recommendations, the advised followup imaging for a single subsolid nodule <6 mm is: No routine follow up is needed. <JOSE GUADALUPE Elizalde - Last Filed: 06/13/22 23:42> Prescriptions: No Action (DME) insulin syringe-needle U-100 [BD Insulin Syringe Ultra-Fine] 1 mL 31 gauge x 5/16 syringe See Rx Instructions .ROUTE .MEDSUPPLY Qty: 100 8RF Rx Instructions: As directed (DME) FreeStyle Test Strip See Rx Instructions .Route Qty: 100 6RF Rx Instructions: Test 3 times Daily rosuvastatin [Crestor] 10 mg tablet 10 mg PO DAILY 90 Days Qty: 90 4RF cholecalciferol (vitamin D3) 50 mcg (2,000 unit) capsule 50 mcg PO DAILY Qty: 90 8RF losartan 25 mg tablet 25 mg PO DAILY 90 Days Qty: 90 4RF metformin 850 mg tablet 850 mg PO TID 90 Days Qty: 270 4RF metoprolol tartrate 100 mg tablet 100 mg PO BID 90 Days Qty: 180 4RF hydralazine 25 mg tablet 25 mg PO BID 90 Days Qty: 180 4RF insulin NPH and regular human 100 unit/mL (70-30) Suspension 60 unit SUBCUT DAILY insulin NPH and regular human 100 unit/mL (70-30) Suspension 40 unit SUBCUT DAILY@1300 <JOSE GUADALUPE Elizalde - Last Filed: 06/13/22 23:42> Referrals: Aubrey Fitzpatrick MD [Primary Care Provider] - 2 days <JOSE GUADALUPE Elizalde - Last Filed: 06/13/22 23:42> Stand Alone Forms: Work/School Release <JOSE GUADALUPE Elizalde - Last Filed: 06/13/22 23:42>
--- NOTE | 2022-06-13 16:28 | ECG_ITS ---
Test Reason : fall Blood Pressure : / mmHG Vent. Rate : 065 BPM Atrial Rate : 065 BPM P-R Int : 160 ms QRS Dur : 134 ms QT Int : 444 ms P-R-T Axes : 027 -59 085 degrees QTc Int : 461 ms Sinus rhythm with marked sinus arrhythmia Right bundle branch block Left anterior fascicular block Bifascicular block Abnormal ECG When compared with ECG of 03-JUN-2022 16:42, Premature atrial complexes are no longer Present Referred By: Willie Reese Electronically Signed By:JARAD BRENNAN MD
--- OUTSIDE RECORDS SUMMARY | 2022-06-13 16:47 | XMS_ITS | Continuity of Care Document ---
:1940 Author Organization [facility] Address [address] [place] [address]- Care Team Providers Name Role Phone Maria Alejandra Elmore MD Primary Care Physician Encounter [facility] Date(s): 07/15/19 - 07/25/19 [facility] [address] [place] [id number] Attending Physician: Clinton Delaney Admitting Physician: AdmClinton maria Referring Physician: AdmtrClinton Allergies, Adverse Reactions, Alerts Substance Reaction Severity Status Lipitor Active statins Active Immunizations Given and Recorded Vaccine Date Status Refusal Reason tetanus-diphtheria toxoids (Td) 10/22/10 Given influenza virus vaccine, inactivated 05/30/10 Given influenza virus vaccine, inactivated1 05/04/09 Given Pneumococcal Vaccine (oldterm) 12/14/08 Given 1Admin Note: vis 03/14/09 Medications aspirin 81 mg oral enteric coated capsule 81, mg, 1, capsule, By Mouth, Daily, 0, 0, 11/25/05 10:28:18, Print DAVID Number, [facility], [address] [place] [address], [id number], Constant Indicator Start Date: 11/25/05 Status: OrderedCompression Stockings See Instructions, # 1 pair, Maintenance, surgical, knee length 20-30 mm Hg, 07/30/16 15:25:53, Compound Start Date: 07/30/16 Status: OrderedCrestor 10 mg oral tablet 1 tablet = 10 mg, By Mouth, Daily, please have lab work done before further refills. Lab slip mailedto home, # 90 tablet, 3 Refills, Maintenance, Tablet Start Date: 12/15/12 Stop Date: 12/10/13 Status: OrderedHumulin 70/30 human recombinant subcutaneous injection 50iu am and 30iu pm, Subcutaneous Infusion, 0 Refills, Maintenance, 07/15/19 15:57:12 EST Start Date: 07/15/19 Status: Orderedhydralazine 25 mg oral tablet 1 tablet = 25 mg, By Mouth, 2 times a day, # 180 tablet, 3 Refills, Maintenance, Tablet Start Date: 08/20/12 Stop Date: 08/15/13 Status: OrderedInsulin Syringes See Instructions, # 360 each, Refills 3, Tot. Refills 3, use to test qid 250.00, 09/01/12 13:59:33 Start Date: 09/01/12 Status: Orderedlosartan 25 mg oral tablet TAKE ONE TABLET BY MOUTH EVERY DAY Start Date: 07/16/18 Status: Orderedmetformin 850 mg oral tablet 1 tablet = 850 mg, By Mouth, 2 times a day, # 90 tablet, 0 Refills, Maintenance, 02/23/15 9:23:42, Tablet Start Date: 02/23/15 Status: Orderedmetoprolol 100 mg oral tablet 1 tablet = 100 mg, By Mouth, 2 times a day, # 180 tablet, 3 Refills, Maintenance, Tablet Start Date: 10/07/12 Stop Date: 10/02/13 Status: OrderedMultivitamin By Mouth, Daily, 0 Refills, Maintenance Start Date: 11/05/12 Status: OrderedTest Strips See Instructions, # 200 each, Refills 11, Tot. Refills 11, Maintenance, freestyle lite test strips,use 5/day 200 each, 10/07/12 16:15:47 Start Date: 10/07/12 Status: OrderedVitamin D3 2000 intl units oral capsule TAKE 1 CAPSULE BY MOUTH ONCE A DAY Start Date: 07/15/19 Status: Ordered Problem List Condition Effective Dates Status Health Status Informant CAD (coronary artery Active disease)(Confirmed) Diabetes mellitus type 2(Confirmed) 1998 Active Essential hypertension(Confirmed) 1998 Active Hypercholesterolemia(Confirmed) 1998 Active Polyneuropathy(Confirmed) 1997 Active Post PTCA(Confirmed) 01/2010 Active Proteinuria(Confirmed) 1998 Active S/p CABG (coronary artery bypass Active graft)(Confirmed) Steatosis of liver(Confirmed) 2001 Active Social History Social History Type Response Smoking Status Former smoker; Tobacco user in household: No; Other: quit smoking 1972; entered on: 02/23/15 Sex
[2022-06-13 16:50] LABS: MANUAL DIFF FLAG NO
[2022-06-13 16:52] LABS: Basophils Percent Auto 0.3 % (0-2); Eosinophils Percent Auto 0.5 % (0-4); Hematocrit 38.7 % (42.0-52.0); Hemoglobin 12.7 g/dl (14.0-18.0); Imm Gran Abs Auto 0.03 X10*3/uL (0.00-0.03); Imm Gran Pct Auto 0.3 % (0.0-0.4); Lymphocytes Absolute Auto 1.6 X10*3/uL (1.2-4.9); Mean Corpuscular HGB Conc 32.8 g/dl (31.0-36.0); Mean Corpuscular Hemoglobin 27.9 pg (27.0-33.0); Mean Corpuscular Volume 84.9 fL (80.0-98.0); Mean Platelet Volume 10.5 fL (9.4-12.4); Monocytes Absolute Auto 0.5 X10*3/uL (0.1-1.2); Monocytes Percent Auto 5.4 % (2-11); Neutrophils Absolute Auto 6.5 x10*3/uL (2.0-8.3); Neutrophils Percent Auto 75.5 % (45-73); Platelet Count 143 X10*3/uL (160-400); Red Blood Count 4.56 X10*6/uL (4.60-5.80); Red Cell Distribution Width 14.4 % (11.0-16.0); White Blood Count 8.7 X10*3/uL (4.8-10.8)
[2022-06-13 17:00] LABS: INTERNATIONAL NORM RATIO 1.3 (0.9-1.1); Prothrombin Time 14.6 SEC (10.0-13.1)
[2022-06-13 17:08] LABS: COVID-19 Test Negative (Negative)
[2022-06-13 17:29] LABS: B Type Natriuretic Peptide 175 pg/mL (<100)
[2022-06-13 18:12] LABS: Alanine Aminotransferase 19 U/L (0-40); Albumin Level 4.3 g/dL (3.5-5.0); Alkaline Phosphatase 51 U/L (39-117); Anion Gap 18 (12-20); Aspartate Amino Transferase 25 U/L (5-37); Bilirubin Total 0.7 mg/dL (0.0-1.0); Blood Urea Nitrogen 15 mg/dL (9-16); Calcium 9.1 mg/dL (8.4-10.2); Carbon Dioxide 23 mmol/L (22-29); Chloride 103 mmol/L (96-108); Creatinine Clr Calc Pharmacy 86.8; Estimated Glomerular Filt Rate > 60; Glucose Random 191 mg/dL (60-115); Magnesium 1.4 mg/dL (1.6-2.6); Potassium 4.4 mmol/L (3.3-5.1); Sodium 140 mmol/L (135-145); Total Protein 7.1 g/dL (6.5-8.0)
[2022-06-13] MEDS: iohexoL 350 MG/ML 100 ML INFUS..BTL IV (18:54)
[2022-06-13 19:03] LABS: Troponin-I High Sensitivity 14.8 ng/L (<3.5-35.0)
[2022-06-13] MEDS: Magnesium Sulfate/D5W 1 GM/100 ML PIGGYBACK IV (19:06)
[2022-06-13 20:01] LABS: Appearance Urine Clear; Color Urine Yellow; Glucose Urine UA 500 mg/dL (Negative); Leukocyte Esterase Urine Negative (Negative); Nitrite Urine Negative (Negative); Specific Gravity - Urine >= 1.030 (1.005-1.025); UMIC TRIGGER UACC YES; Urine Blood Trace (Negative); Urine Ketones Trace mg/dL (Negative); Urine Protein 300 (3+) mg/dL (Neg-Trace)
[2022-06-13 20:06] LABS: Bacteria Urine None Seen (None Seen); Hyaline Casts Urine 0-2 /LPF (0-2); Squamous Epithelial Cell Urine 0-2 /HPF (0-2); WBC Urine 0-5 /HPF (0-5)
[2022-06-13] MEDS: Morphine Sulfate 4 MG/ML CARTRIDGE IVPUSH (20:42)
[2022-06-13] MEDS: 0.9 % Sodium Chloride 1,000 ML 999 ML IV (20:43)
[2022-06-13] MEDS: ondansetron HCL 4 MG/2 ML VIAL IVPUSH (21:07)
[2022-06-13 21:41] LABS: Anion Gap 16 (12-20); Blood Urea Nitrogen 13 mg/dL (9-16); Calcium 8.6 mg/dL (8.4-10.2); Carbon Dioxide 25 mmol/L (22-29); Chloride 102 mmol/L (96-108); Creatinine Clr Calc Pharmacy 92.1; Estimated Glomerular Filt Rate > 60; Glucose Random 165 mg/dL (60-115); Magnesium 1.6 mg/dL (1.6-2.6); Potassium 4.1 mmol/L (3.3-5.1); Sodium 139 mmol/L (135-145)
[2022-06-13 21:48] LABS: Troponin-I High Sensitivity 16.7 ng/L (<3.5-35.0)
--- NOTE | 2022-06-13 23:48 | PC.NURSE ---
0000 rounding done took pt for a walk using a wheeled walker ,pt was unable to amb ,was in alot of pain ,gait was very unsteady ,needed 2 person to hold him up ,we assist pt back to bed ,help pt to use urinal ,also pt has an incontinence episode , care given and linen change ,warm blanket given i offer pt food pt ate a chicken salad sandwich and 2 carton of milk ,also vitals sign taken ,pt watching television ,call rowley within reach .
[2022-06-14] VITALS (10 sets, daily range): BP systolic 172–202; BP diastolic 62–108; PULSE 69–97; RESP 14–20; TEMP 36.6–37.4; O2SAT 92–97
--- NOTE | 2022-06-14 02:02 | PC.NURSE ---
0200 rounding done pt awake and watching television ,urinal empty ,warm blanket given ,call [facility] within reach .
--- NOTE | 2022-06-14 04:58 | PC.NURSE ---
Pt stood up and pivoted to a bedside commode. Pt is unsteady on his feet, required a 2 assist
--- NOTE | 2022-06-14 08:53 | PC.NURSE ---
PT A&Ox3, reports back pain. o2 sat 87-89% on RA. PT repositioned. Placed on 2L via NC. 96% on 2L. Denies chest pain, SOB, and headache.
--- NOTE | 2022-06-14 09:57 | PHA.MEDREC ---
Pharmacy Consult ? Medication Reconciliation Pharmacy has completed the medication reconciliation. Patient unsure of medication, said to call [facility]. Patient was able to report insulin doses. Rema Fox, PharmD
--- NOTE | 2022-06-14 10:02 | MHC.CM.ED ---
Addendum entered by Anna Zuleta 06/14/22 14:08: Pt recommending [facility]: spoke with pt who gave CM selections and referrals were made. ED PA made aware of pt's continued elevated BP: now SBP almost 200. Will await input on VS and acceptance / payor auth for transfer. ED CM to follow. Original Note: Received consult for assessment of d/c needs: Met with pt who presents after falls at home. Pt states he resides alone with no services. He drives and [facility] the [facility] daily for lunch and activities. He uses a walker, sees his PCP Dr. Vee regularly and is Covid vaxed x 2 per him. He states his friend Aki helps with any needs he may have and would be the person to transfer him home if needed. Pt states he has been to [facility] in the past but is hoping to return to home. PT eval ordered but not completed: Pt's BP is elevated: ED PA aware. ED CM to follow and will wait for PT eval.
--- NOTE | 2022-06-14 10:14 | PC.NURSE ---
Physical therapy at bedside.
[2022-06-14] MEDS: Cholecalciferol (Vitamin D3) 25 MCG TABLET 50 MCG PO (14:24)
[2022-06-14] MEDS: Losartan Potassium 25 MG TABLET PO (14:24)
[2022-06-14] MEDS: hydrALAZINE HCl 25 MG TABLET PO ×2 (14:25→21:28)
[2022-06-14] MEDS: Metoprolol Tartrate 100 MG TABLET PO ×2 (14:25→21:28)
[2022-06-14 14:31] LABS: Glucose, Whole Blood 278 mg/dL (60-115)
--- NOTE | 2022-06-14 15:06 | PC.NURSE ---
MRI screening completed with PT.
[2022-06-14] MEDS: Morphine Sulfate 4 MG/ML CARTRIDGE IVPUSH ×2 (16:42→23:43)
[2022-06-14 20:49] LABS: Glucose, Whole Blood 290 mg/dL (60-115)
[2022-06-15] VITALS (9 sets, daily range): BP systolic 124–177; BP diastolic 55–84; PULSE 70–102; RESP 14–22; TEMP 36.6–37.2; O2SAT 85–98; BMI 26.6
[2022-06-15 07:03] LABS: Glucose, Whole Blood 224 mg/dL (60-115)
[2022-06-15] MEDS: Losartan Potassium 25 MG TABLET PO (08:13)
[2022-06-15] MEDS: Cholecalciferol (Vitamin D3) 25 MCG TABLET 50 MCG PO (08:13)
[2022-06-15] MEDS: hydrALAZINE HCl 25 MG TABLET PO ×2 (08:13→20:34)
[2022-06-15] MEDS: Insulin Lispro 100 UNIT/ML 3 ML VIAL 18 UNIT SUBCUT (08:14)
[2022-06-15] MEDS: Metoprolol Tartrate 100 MG TABLET PO ×2 (08:14→20:34)
[2022-06-15] MEDS: Insulin Glargine,Hum.rec.anlog 100 UNIT/ML 10 ML VIAL 34 UNIT SUBCUT (08:15)
[2022-06-15] MEDS: oxyCODONE HCl Immed Release 5 MG TABLET PO ×2 (10:11→20:50)
[2022-06-15] MEDS: Docusate Sodium 100 MG CAPSULE PO ×2 (10:11→20:35)
[2022-06-15 10:32] LABS: Influenza A PCR NEGATIVE (Negative); Influenza B PCR NEGATIVE (Negative); Resp Syncy Virus RNA Qual PCR NEGATIVE (Negative); SARS COV2 PCR INHOUSE NEGATIVE (Negative)
--- NOTE | 2022-06-15 10:53 | PM.IMHP ---
History of Present Illness Date of Service: 06/15/22 Attending physician on admission: Shade Magdaleno Chief Complaint: dizziness, fall 81 year old male with history of insulin dependent type 2 diabetes, hypertension, hyperlipidemia, history of cervical fusion, chronic venous stasis dermatitis, who is a former smoker presented to the ED 2 days ago after sustaining a fall. The patient reports he has a mechanical fall 3 days ago after tripping while shopping without head injury or LOC. Did not seek medical attn. The next day while at the grocery store states he felt dizzy and fell again without head injury or LOC. Fell directly onto his back and came to the ED for evaluation. On arrival, patient found to be hypoxic with oximetry ranging 87-89% patient was placed on 2 L supplemental O2 via nasal cannula, he is not oxygen dependent at home. Vitals otherwise stable. Orthostatics negative. There is no evidence of trauma on chest or abdominal/pelvis CT. No acute fracture or dislocation of the cervical spine. Head CT negative for acute intracranial abnormality. Abdominal CT with incidental finding of to fluid attenuation lesions in the pancreatic tail measuring overall 1.3 cm possibly reflecting adjacent pancreatic cyst but follow-up evaluation with contrast-enhanced MR/MRCP recommended. There also scattered solid pulmonary micro nodules measuring less than 6 mm. On arrival, no leukocytosis, renal function electrolytes normal. Patient was being observed for placement. However, dizziness continue to be marked so MRI of the brain was ordered to rule out posterior stroke, negative for any acute intracranial abnormality but did show generalized cerebral volume loss with mild disproportionate prominence of the ventricles, possible superimposed normal pressure hydrocephalus, as well as moderate left-sided mastoid effusion. Clinically, patient presentation not consistent with NPH. As result of the dizziness, was not able to participate in PT. Also remained hypoxic down to 85% on room air this morning and admission being recommended as a result. COVID-19, influenza, and RSV pending. Chest x-ray without evidence of focal consolidation but did show left lower lobe atelectasis. Patient is reporting feeling generally unwell with diffuse myalgias and reporting chronic neck and low back pain. He is also reporting chronic constipation and abdominal bloating with new onset nausea but no vomiting. No complaints of shortness of breath despite hypoxia. He has been afebrile and denies any shaking chills, nasal congestion, rhinorrhea, sore throat, cough, ongoing dizziness, palpitations, vomiting, diarrhea, urinary symptoms, abdominal pain, or blood in the stool. Review of Systems Review of Systems: General: No fevers, malaise, unintentional weight loss HEENT: No blurred vision, diplopia. No sore throat, nasal congestion, rhinorrhea, sinus pain, ear pain Cardiovascular: No chest pain, palpitations, or leg edema Respiratory: +shortness of breath. No wheezing, cough GI: No abdominal pain, nausea, vomiting, diarrhea, constipation, melena, hematochezia : No dysuria, hematuria, increased urinary frequency, decreased urinary output MSK: +myalgia, +neck pain, +low back pain Neuro: +dizziness. No headaches, weakness, paresthesias Skin: No rashes or lesions [facility] Medical History Diabetes mellitus with coincident hypertension Hyperlipidemia Hypertension Family History Mother Stroke Cancer Father No problems noted. Surgical History H/O heart surgery Social History Housing: House Alcohol intake: never Patient Tobacco Use Status: Former Tobacco user Tobacco use type: Cigarette Smoked in Last 30 Days: No e-Cigarette/Vaping Use: Never Used Second Hand Smoke Exposure: No Use of substances other than those prescribed or required for medical reasons: No Advance Directives: No Advance Directives Information Provided: No service: Yes Current occupational status: retired Cognitive needs: Yes (walker) Hearing needs: No Vision needs: Yes (glasses) Meds Allergies Allergy/AdvReac Type Severity Reaction Status Date / Time Hgpurmf-TAO-MnR Reductase Allergy Mild Burning Verified 03/29/22 11:45 Inhibitor sensation [Nuohrih-Gxf-Bro Reductase Inhibitor] all statins except crestor Allergy Unknown burning Uncoded 07/16/19 00:00 sensations in legs Active Medications: Current Medications Acetaminophen (Acetaminophen 325 Mg Tablet) 650 mg PO Q6H PRN PRN Reason: Pain, Mild (Pain Scale 1-3) Docusate Sodium (Docusate Sodium 100 Mg Capsule) 100 mg PO BID NICOLE Last Admin: 06/15/22 10:11 Dose: 100 mg Enoxaparin Sodium (Enoxaparin Sodium 40 Mg/0.4 Ml Syringe) 40 mg SUBCUT Q24H [facility] Hydralazine HCl (Hydralazine Hcl 25 Mg Tablet) 25 mg PO BID [facility]; Protocol Last Admin: 06/15/22 08:13 Dose: 25 mg Insulin Glargine (Insulin Glargine,Hum.Rec.Anlog 100 Unit/Ml 10 Ml Vial) 22 unit SUBCUT DAILY@1200 [facility] Insulin Glargine (Insulin Glargine,Hum.Rec.Anlog 100 Unit/Ml 10 Ml Vial) 34 unit SUBCUT DAILY@0730 [facility] Last Admin: 06/15/22 08:15 Dose: 34 unit Insulin Human Lispro (Insulin Lispro 100 Unit/Ml 3 Ml Vial) 12 unit SUBCUT DAILY@1200 [facility] Insulin Human Lispro (Insulin Lispro 100 Unit/Ml 3 Ml Vial) 18 unit SUBCUT DAILY@0730 [facility] Last Admin: 06/15/22 08:14 Dose: 18 unit Losartan Potassium (Losartan Potassium 25 Mg Tablet) 25 mg PO DAILY [facility]; Protocol Last Admin: 06/15/22 08:13 Dose: 25 mg Metformin HCl (Metformin Hcl 850 Mg Tablet) 850 mg PO TID [facility] Metoprolol Tartrate (Metoprolol Tartrate 100 Mg Tablet) 100 mg PO BID [facility]; Protocol Last Admin: 06/15/22 08:14 Dose: 100 mg Non-Formulary Medication (Rosuvastatin [Crestor]) 10 mg PO DAILY [facility] Ondansetron HCl (Ondansetron Hcl 4 Mg/2 Ml Vial) 4 mg IVPUSH Q8H PRN PRN Reason: Nausea and Vomiting Oxycodone HCl (Oxycodone Hcl Immed Release 5 Mg Tablet) 5 mg PO Q6H PRN PRN Reason: severe pain Last Admin: 06/15/22 10:11 Dose: 5 mg Pharmacy Consult (Consult Rx Perform Med Rec) 1 each MISCELLANE ONCE PRN PRN Reason: Consult order Polyethylene Glycol (Polyethylene Glycol 3350 17 Gm Powd.Pack) 17 gm PO DAILY PRN PRN Reason: constipation Polyethylene Glycol (Polyethylene Glycol 3350 17 Gm Powd.Pack) 17 gm PO DAILY [facility] Sodium Chloride (0.9 % Sodium Chloride Flush 3 Ml Syringe) 3 ml IVFLUSH QSHIFT [facility] Vitamin D (Cholecalciferol (Vitamin D3) 25 Mcg Tablet) 50 mcg PO DAILY NICOLE Last Admin: 06/15/22 08:13 Dose: 50 mcg Home Medications Medication Instructions Recorded Confirmed Last Taken Type insulin human U-100 NPH-regulr 40 unit subcut DAILY@1300 06/14/22 06/14/22 Unknown History 70-30 mix 100 unit/mL subcutaneous susp insulin human U-100 NPH-regulr 60 unit subcut DAILY 06/14/22 06/14/22 Unknown History 70-30 mix 100 unit/mL subcutaneous susp Physical Exam Vital Signs and Narrative: Vital Signs: Last Vital Signs Temp 98.9 F 06/15/22 06:01 Pulse 91 06/15/22 08:16 Resp 22 H 06/15/22 08:16 BP 177/84 H 06/15/22 08:16 Pulse Ox 94 06/15/22 09:28 O2 Del Method 06/15/22 09:28 O2 Flow Rate 2 06/15/22 09:28 BMI result Body Mass Index 26.6 Constitutional - Awake and Alert, No apparent distress Eyes - PERRLA, EOMI Cardiovascular - S1S2, RRR, No edema Respiratory - Normal lung expansion, Normal respiratory effort, No respiratory distress, CTA bilaterally Gastrointestinal - Mild softly distended abdomen with mild diffuse ttp. +BS; No rebound or guarding Extremities - +calf ttp with warmth and erythema and venous stasis changes RLE. No purulent drainge. No calf ttp or swelling LLE. See photo Musculoskeletal - Normal inspection, normal ROM Skin - Warm/Dry. Venous stasis dermatitis b/l R>L Neurological - Alert & oriented x3, CN II-XII in tact, 5/5 strength BUE and BLE Psychological - Appropriate affect Results Labs CBC and Chem 7: 06/15/22 11:28 06/15/22 11:27 Labs: Laboratory Results - last 24 hr 06/14/22 06/14/22 06/15/22 14:28 20:44 06:59 POC Glucose 278 H 290 H 224 H Imaging Radiologist's Impressions: Impressions Brain MRI 06/14/22 17:27 IMPRESSION: 1. No acute intracranial abnormalities. 2. Mild to moderate underlying microangiopathy. 3. There is a degree of generalized cerebral volume loss with prominence of both the ventricles and sulcal spaces. However, there appears to be mildly disproportionate prominence of the ventricles. This may be due to disproportionate central volume loss; however, correlation with symptoms of potentially superimposed normal pressure hydrocephalus is recommended. 4. Moderate left-sided mastoid effusion. Chest X-Ray 06/15/22 09:30 IMPRESSION: Probable left lower lung atelectasis. Assessment and Plan (1) Fall: Status: Acute (2) Dizziness: Status: Acute (3) Cellulitis of right lower extremity: Status: Acute (4) Acute respiratory failure with hypoxia: Status: Acute Plan 81 year old male with history of insulin dependent type 2 diabetes, hypertension, hyperlipidemia, history of cervical fusion, chronic venous stasis dermatitis, who is a former smoker admitted for acute hypoxemic respiratory failure and cellulitis of the right lower extremity. # acute hypoxemic respiratory failure- likely secondary to infection -COntinue supplemental O2 to maintain oximetry greater than 92% -titrate O2 as indicated -Low suspicion for PE. Venous duplex negative. HD. No cp. D-Dimer pending -?r/t atelectasis. incentive spirometry -monitor pulse oximetry # cellulitis right lower extremity -leukocytosis 15.4. Single episode of tachypnea related to hypoxia. Otherwise hemodynamically stable. No sepsis -IV ceftriaxone -venous duplex right lower extremity negative for DVT -follow CBC. Blood cultures pending # dizziness with fall -dizziness has resolved -head CT and orthostatics negative. MRI brain negative for stroke but showing mildly disproportionate prominence of the ventricles with question of potentially superimposed NPH. However clinical presentation is not consistent with NPH -UA and chest x-ray negative -? Related to infection -continue PT -consider Neurology consult if dizziness recurs #Pseudohyponatremia -Sodium 134, likely related to hyperglycemia. -Follow BMP -Encourage PO fluids # insulin-dependent type 2 diabetes without hyperglycemia -dose adjusted Lantus -Humalog on sliding scale -continue metformin -POC glucose -diabetic diet # hypertension -continue hydralazine, losartan, and metoprolol # HLD -continue statin # pancreatic mass -1.3 cm overall measurement of 2 adjacent fluid attenuation lesions possibly reflecting adjacent pancreatic cysts -recommend outpatient follow-up with contrast-enhanced MRI for further evaluation DVT prophylaxis-Lovenox Full code Patient requires inpatient stay of at least 2 midnights due to acute hypoxemic respiratory failure requiring supplemental O2 with cellulitis the right lower extremity as well of recurrent falls with need for placement at [facility]. Quality Stroke Does the patient have a stroke diagnosis?: No VTE Prior VTE?: No VTE Risk Level:: Medical - moderate - high VTE Device Contraindication: Treatment Not Indicated VTE Drug Contraindication: N/A - Med Ordered
[2022-06-15 11:34] LABS: MANUAL DIFF FLAG NO
[2022-06-15 11:47] LABS: Basophils Percent Auto 0.2 % (0-2); Eosinophils Percent Auto 0.3 % (0-4); Hematocrit 41.4 % (42.0-52.0); Imm Gran Abs Auto 0.12 X10*3/uL (0.00-0.03); Imm Gran Pct Auto 0.8 % (0.0-0.4); Lymphocytes Absolute Auto 1.1 X10*3/uL (1.2-4.9); Lymphocytes Percent Auto 7.2 % (20-40); Mean Corpuscular HGB Conc 33.8 g/dl (31.0-36.0); Mean Corpuscular Hemoglobin 27.6 pg (27.0-33.0); Mean Corpuscular Volume 81.7 fL (80.0-98.0); Mean Platelet Volume 11.4 fL (9.4-12.4); Monocytes Percent Auto 6.6 % (2-11); Neutrophils Percent Auto 84.9 % (45-73); PLT CLUMP 1; Red Blood Count 5.07 X10*6/uL (4.60-5.80); Red Cell Distribution Width 14.8 % (11.0-16.0); SCAN SMEAR FLAG 1
[2022-06-15 11:50] LABS: White Blood Count 15.4 X10*3/uL (4.8-10.8)
[2022-06-15 12:00] LABS: Anion Gap 22 (12-20); Blood Urea Nitrogen 12 mg/dL (9-16); Calcium 8.8 mg/dL (8.4-10.2); Carbon Dioxide 20 mmol/L (22-29); Chloride 97 mmol/L (96-108); Creatinine Clr Calc Pharmacy 80.9; Estimated Glomerular Filt Rate > 60; Glucose Random 215 mg/dL (60-115); Potassium 4.7 mmol/L (3.3-5.1); Sodium 134 mmol/L (135-145)
--- NOTE | 2022-06-15 12:02 | PC.NURSE ---
PT ARRIVES FROM MAIN ED TO OVERFLOW 10. HE REPORTS BACK PAIN FROM HIS FALL. HE JUST HAD A BEDSIDE US OF HIS R LEG. THE LEG IS RED AND WARM TO THE TOUCH. HE HAS IV ACCESS IN HIS RIGHT AC. HE IS CONFUSED AND INCONTINENT OF URINE. ORALLY HE IS 99.4* HE IS WARM TO THE TOUCH AND ATTEMPTING TO CLIMB OUT OF BED. LINENS AND PT WERE CLEANED AND PT REPOSITIONED
[2022-06-15 12:13] LABS: Platelet Count 141 X10*3/uL (160-400)
[2022-06-15] MEDS: cefTRIAXone sodium 1 GM in 0.9 % Sodium Chloride 50 ML IV (12:30)
[2022-06-15] MEDS: Enoxaparin Sodium 40 MG/0.4 ML SYRINGE SUBCUT (13:08)
[2022-06-15] MEDS: polyethylene glycoL 3350 17 GM POWD.PACK PO (13:09)
[2022-06-15 13:59] LABS: Glucose, Whole Blood 156 mg/dL (60-115)
--- NOTE | 2022-06-15 14:11 | PC.NURSE ---
REPORT GIVEN FOR TRANSFER TO FLOOR
[2022-06-15 14:52] LABS: Glucose, Whole Blood 113 mg/dL (60-115)
[2022-06-15 15:19] LABS: D Dimer High Sensitivity 1116 NG/ML
[2022-06-15] MEDS: 0.9 % Sodium Chloride Flush 3 ML SYRINGE IVFLUSH ×2 (16:30→21:08)
[2022-06-15 16:34] LABS: Glucose, Whole Blood 107 mg/dL (60-115)
[2022-06-15] MEDS: iohexoL 350 MG/ML 100 ML INFUS..BTL IV (18:31)
[2022-06-15 19:48] LABS: Glucose, Whole Blood 167 mg/dL (60-115)
[2022-06-15] MEDS: Insulin Lispro 100 UNIT/ML 3 ML VIAL SUBCUT (20:31)
[2022-06-15] MEDS: Insulin Glargine,Hum.rec.anlog 100 UNIT/ML 10 ML VIAL 22 UNIT SUBCUT (20:33)
[2022-06-16] MEDS: oxyCODONE HCl Immed Release 5 MG TABLET PO ×2 (03:11→11:45)
[2022-06-16 03:30] VITALS: BP 133/62; PULSE 68; RESP 18; TEMP 37; O2SAT 97
[2022-06-16 07:03] LABS: MANUAL DIFF FLAG NO
[2022-06-16 07:06] LABS: Basophils Percent Auto 0.3 % (0-2); Eosinophils Absolute Auto 0.1 X10*3/uL (0.0-0.4); Eosinophils Percent Auto 0.5 % (0-4); Hematocrit 38.5 % (42.0-52.0); Hemoglobin 12.6 g/dl (14.0-18.0); Imm Gran Abs Auto 0.05 X10*3/uL (0.00-0.03); Imm Gran Pct Auto 0.5 % (0.0-0.4); Lymphocytes Absolute Auto 2.4 X10*3/uL (1.2-4.9); Lymphocytes Percent Auto 21.4 % (20-40); Mean Corpuscular HGB Conc 32.7 g/dl (31.0-36.0); Mean Corpuscular Hemoglobin 27.2 pg (27.0-33.0); Mean Corpuscular Volume 83.2 fL (80.0-98.0); Mean Platelet Volume 10.7 fL (9.4-12.4); Monocytes Absolute Auto 0.9 X10*3/uL (0.1-1.2); Monocytes Percent Auto 7.7 % (2-11); Neutrophils Absolute Auto 7.7 x10*3/uL (2.0-8.3); Neutrophils Percent Auto 69.6 % (45-73); Platelet Count 140 X10*3/uL (160-400); Red Blood Count 4.63 X10*6/uL (4.60-5.80); Red Cell Distribution Width 14.7 % (11.0-16.0); White Blood Count 11.1 X10*3/uL (4.8-10.8)
[2022-06-16 07:37] LABS: Glucose, Whole Blood 90 mg/dL (60-115)
[2022-06-16 07:47] LABS: Alanine Aminotransferase 22 U/L (0-40); Albumin Level 3.5 g/dL (3.5-5.0); Alkaline Phosphatase 49 U/L (39-117); Anion Gap 18 (12-20); Aspartate Amino Transferase 48 U/L (5-37); Bilirubin Total 1.2 mg/dL (0.0-1.0); Blood Urea Nitrogen 17 mg/dL (9-16); Calcium 8.6 mg/dL (8.4-10.2); Carbon Dioxide 24 mmol/L (22-29); Chloride 95 mmol/L (96-108); Creatinine Clr Calc Pharmacy 85.5; Estimated Glomerular Filt Rate > 60; Glucose Fasting 73 mg/dL (60-99); Potassium 3.2 mmol/L (3.3-5.1); Sodium 134 mmol/L (135-145); Total Protein 6.1 g/dL (6.5-8.0)
[2022-06-16 08:00] VITALS: BP 160/73; PULSE 70; RESP 17; TEMP 36.7; O2SAT 96
[2022-06-16] MEDS: Insulin Glargine,Hum.rec.anlog 100 UNIT/ML 10 ML VIAL 20 UNIT SUBCUT (08:30)
[2022-06-16] MEDS: hydrALAZINE HCl 25 MG TABLET PO ×2 (08:30→19:48)
[2022-06-16] MEDS: Cholecalciferol (Vitamin D3) 25 MCG TABLET 50 MCG PO (08:30)
[2022-06-16] MEDS: Metoprolol Tartrate 100 MG TABLET PO ×2 (08:30→19:48)
[2022-06-16] MEDS: Losartan Potassium 25 MG TABLET PO (08:30)
[2022-06-16] MEDS: Docusate Sodium 100 MG CAPSULE PO ×2 (08:30→19:48)
[2022-06-16] MEDS: 0.9 % Sodium Chloride Flush 3 ML SYRINGE IVFLUSH ×2 (08:31→16:51)
[2022-06-16] MEDS: polyethylene glycoL 3350 17 GM POWD.PACK PO (08:31)
--- NOTE | 2022-06-16 10:16 | HO.PM.IMPN ---
Subjective Subjective Date of Service: 06/16/22 Interval History: cc: fall, hyopxic in ED interval history: back pain Cardiovascular Cardiovascular: Reports no additional cardiovascular complaints Respiratory Respiratory: Reports no additional respiratory complaints Physical Exam Vital Signs: Vital Signs: Last Vital Signs Temp 98.0 F 06/16/22 08:00 Pulse 70 06/16/22 08:00 Resp 17 06/16/22 08:00 BP 160/73 H 06/16/22 08:00 Pulse Ox 96 06/16/22 08:00 O2 Del Method 06/16/22 08:00 O2 Flow Rate 3.5 06/16/22 08:00 BMI result Body Mass Index 26.6 General: AO X 3, frail Resp: diminished bilateral, no accessory muscles used CVS: S1,S2,RRR GI: soft, non tender, non distended Neuro: motor grossly intact, alert Psych: appropriate affect, appropriate insight Objective Data Active Medications Acetaminophen (Acetaminophen 325 Mg Tablet) 650 mg PO Q6H PRN PRN Reason: Pain, Mild (Pain Scale 1-3) Dextrose (Dextrose 50 % 25 Gm/50 Ml Syringe) 25 gm IVPUSH Q15M PRN; Protocol PRN Reason: per Hypoglycemia Standing Ord. Docusate Sodium (Docusate Sodium 100 Mg Capsule) 100 mg PO BID [facility] Last Admin: 06/16/22 08:30 Dose: 100 mg Documented By: OSMEL Enoxaparin Sodium (Enoxaparin Sodium 40 Mg/0.4 Ml Syringe) 40 mg SUBCUT Q24H [facility] Last Admin: 06/15/22 13:08 Dose: 40 mg Documented By: LITTLE Glucose (Glucose Gel 15 Gm Gel..Gram.) 15 gm PO Q15M PRN; Protocol PRN Reason: per Hypoglycemia Standing Ord. Hydralazine HCl (Hydralazine Hcl 25 Mg Tablet) 25 mg PO BID [facility]; Protocol Last Admin: 06/16/22 08:30 Dose: 25 mg Documented By: OSMEL Ceftriaxone Sodium 1 gm/ (Sodium Chloride) 50 mls @ 100 mls/hr IV Q24H [facility] Last Infusion: 06/15/22 13:05 Dose: 0 mls/hr Documented By: LITTLE Insulin Glargine (Insulin Glargine,Hum.Rec.Anlog 100 Unit/Ml 10 Ml Vial) 22 unit SUBCUT DAILY [facility] Last Admin: 06/16/22 08:26 Dose: Not Given Documented By: OSMEL Non-Admin Reason: Duplicate Order Insulin Glargine (Insulin Glargine,Hum.Rec.Anlog 100 Unit/Ml 10 Ml Vial) 20 unit SUBCUT DAILY@0730 [facility] Last Admin: 06/16/22 08:30 Dose: 20 unit Documented By: OSMEL Insulin Human Lispro (Insulin Lispro 100 Unit/Ml 3 Ml Vial) 0 unit SUBCUT QIDACHS [facility]; Protocol Last Admin: 06/16/22 07:43 Dose: Not Given Documented By: OSMEL Non-Admin Reason: No Insulin Coverage Losartan Potassium (Losartan Potassium 25 Mg Tablet) 25 mg PO DAILY [facility]; Protocol Last Admin: 06/16/22 08:30 Dose: 25 mg Documented By: OSMEL Metoprolol Tartrate (Metoprolol Tartrate 100 Mg Tablet) 100 mg PO BID [facility]; Protocol Last Admin: 06/16/22 08:30 Dose: 100 mg Documented By: OSMEL Non-Formulary Medication (Rosuvastatin [Crestor]) 10 mg PO DAILY [facility] Ondansetron HCl (Ondansetron Hcl 4 Mg/2 Ml Vial) 4 mg IVPUSH Q8H PRN PRN Reason: Nausea and Vomiting Oxycodone HCl (Oxycodone Hcl Immed Release 5 Mg Tablet) 5 mg PO Q6H PRN PRN Reason: severe pain Last Admin: 06/16/22 03:11 Dose: 5 mg Documented By: PATRICE Pharmacy Consult (Consult Rx Perform Med Rec) 1 each MISCELLANE ONCE PRN PRN Reason: Consult order Polyethylene Glycol (Polyethylene Glycol 3350 17 Gm Powd.Pack) 17 gm PO DAILY PRN PRN Reason: constipation Polyethylene Glycol (Polyethylene Glycol 3350 17 Gm Powd.Pack) 17 gm PO DAILY [facility] Last Admin: 06/16/22 08:31 Dose: 17 gm Documented By: OSMEL Sodium Chloride (0.9 % Sodium Chloride Flush 3 Ml Syringe) 3 ml IVFLUSH QSHIFT [facility] Last Admin: 06/16/22 08:31 Dose: 3 ml Documented By: OSMEL Vitamin D (Cholecalciferol (Vitamin D3) 25 Mcg Tablet) 50 mcg PO DAILY [facility] Last Admin: 06/16/22 08:30 Dose: 50 mcg Documented By: OSMEL Labs CBC & Chem 7: 06/16/22 05:40 06/16/22 05:40 Labs: Laboratory Results - last 24 hr 06/15/22 06/15/22 06/15/22 09:38 11:27 11:28 MCV 81.7 MCH 27.6 MCHC 33.8 RDW 14.8 Plt Count 141 L MPV 11.4 Immature Gran % (Auto) 0.8 H Neut % (Auto) 84.9 H Lymph % (Auto) 7.2 L [place] % (Auto) 6.6 Eos % (Auto) 0.3 Baso % (Auto) 0.2 Lymph # (Auto) 1.1 L [place] # (Auto) 1.0 Eos # (Auto) 0.0 Baso # (Auto) 0.0 Abs Immat Gran (auto) 0.12 H Absolute Neuts (auto) 13.0 H Absolute Nucleated RBC 0.000 Nucleated RBC % (auto) 0.0 D-Dimer High Sensitivty Anion Gap 22 H Estim Creat Clear Calc 80.9 Estimated GFR > 60 POC Glucose Random Glucose 215 H Fasting Glucose Calcium 8.8 Total Bilirubin AST ALT Alkaline Phosphatase Total Protein Albumin Influenza Type A (PCR) NEGATIVE Influenza Type B (PCR) NEGATIVE RSV RNA Qual (PCR) NEGATIVE SARS-CoV-2 RNA (RT-PCR) NEGATIVE 06/15/22 06/15/22 06/15/22 13:56 14:48 15:00 MCV MCH MCHC RDW Plt Count MPV Immature Gran % (Auto) Neut % (Auto) Lymph % (Auto) [place] % (Auto) Eos % (Auto) Baso % (Auto) Lymph # (Auto) [place] # (Auto) Eos # (Auto) Baso # (Auto) Abs Immat Gran (auto) Absolute Neuts (auto) Absolute Nucleated RBC Nucleated RBC % (auto) D-Dimer High Sensitivty 1116 Anion Gap Estim Creat Clear Calc Estimated GFR POC Glucose 156 H 113 Random Glucose Fasting Glucose Calcium Total Bilirubin AST ALT Alkaline Phosphatase Total Protein Albumin Influenza Type A (PCR) Influenza Type B (PCR) RSV RNA Qual (PCR) SARS-CoV-2 RNA (RT-PCR) 06/15/22 06/15/22 06/16/22 16:30 19:40 05:40 MCV 83.2 MCH 27.2 MCHC 32.7 RDW 14.7 Plt Count 140 L MPV 10.7 Immature Gran % (Auto) 0.5 H Neut % (Auto) 69.6 Lymph % (Auto) 21.4 [place] % (Auto) 7.7 Eos % (Auto) 0.5 Baso % (Auto) 0.3 Lymph # (Auto) 2.4 [place] # (Auto) 0.9 Eos # (Auto) 0.1 Baso # (Auto) 0.0 Abs Immat Gran (auto) 0.05 H Absolute Neuts (auto) 7.7 Absolute Nucleated RBC 0.000 Nucleated RBC % (auto) 0.0 D-Dimer High Sensitivty Anion Gap Estim Creat Clear Calc Estimated GFR POC Glucose 107 167 H Random Glucose Fasting Glucose Calcium Total Bilirubin AST ALT Alkaline Phosphatase Total Protein Albumin Influenza Type A (PCR) Influenza Type B (PCR) RSV RNA Qual (PCR) SARS-CoV-2 RNA (RT-PCR) 06/16/22 06/16/22 05:40 07:33 MCV MCH MCHC RDW Plt Count MPV Immature Gran % (Auto) Neut % (Auto) Lymph % (Auto) [place] % (Auto) Eos % (Auto) Baso % (Auto) Lymph # (Auto) [place] # (Auto) Eos # (Auto) Baso # (Auto) Abs Immat Gran (auto) Absolute Neuts (auto) Absolute Nucleated RBC Nucleated RBC % (auto) D-Dimer High Sensitivty Anion Gap 18 Estim Creat Clear Calc 85.5 Estimated GFR > 60 POC Glucose 90 Random Glucose Fasting Glucose 73 Calcium 8.6 Total Bilirubin 1.2 H AST 48 H D ALT 22 Alkaline Phosphatase 49 Total Protein 6.1 L Albumin 3.5 Influenza Type A (PCR) Influenza Type B (PCR) RSV RNA Qual (PCR) SARS-CoV-2 RNA (RT-PCR) Assessment and Plan (1) Acute respiratory failure with hypoxia: Status: Acute Plan 74M with pmh Diabetes, hypertension, hyperlipidemia, chronic venous stasis dermatitis, presented the ED with mechanical fall, noted to have acute hypoxia. 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
[2022-06-16 11:06] VITALS: BP 125/58; PULSE 63; RESP 18; TEMP 36.5; O2SAT 96
[2022-06-16 11:22] LABS: Glucose, Whole Blood 278 mg/dL (60-115)
[2022-06-16] MEDS: Insulin Lispro 100 UNIT/ML 3 ML VIAL SUBCUT ×3 (11:48→19:49)
[2022-06-16] MEDS: Enoxaparin Sodium 40 MG/0.4 ML SYRINGE SUBCUT (11:48)
[2022-06-16] MEDS: cefTRIAXone sodium 1 GM in 0.9 % Sodium Chloride 50 ML IV (11:52)
--- NOTE | 2022-06-16 14:43 | MHC.CM.PN ---
PT REPORTS HE LIVES ALONE AND IS INDEPENDENT WITH CARE AT [facility] HE REPORTS HE HAS FOUR WALKERS IN HIS HOME, ONE IN EACH ROOM HE HAD NO SERVICES [employer] HE REPORTS HE IS COVID VAX X 2 HCP COMPLETED TODAY PCP: DONIS CORTES [facility] DELIVERED DCP: STR AT [facility] VIA S
[2022-06-16 16:39] LABS: Glucose, Whole Blood 238 mg/dL (60-115)
[2022-06-16 16:48] VITALS: BP 171/72; PULSE 65; RESP 18; TEMP 36.8; O2SAT 93
[2022-06-16] MEDS: Acetaminophen 325 MG TABLET 650 MG PO (16:49)
[2022-06-16 19:29] VITALS: BP 176/82; PULSE 81; RESP 18; TEMP 36.6; O2SAT 96
[2022-06-16 19:52] LABS: Glucose, Whole Blood 254 mg/dL (60-115)
[2022-06-16 23:16] VITALS: BP 161/76; PULSE 69; RESP 16; TEMP 36.7; O2SAT 95
[2022-06-17] VITALS (7 sets, daily range): BP systolic 125–184; BP diastolic 6–76; PULSE 71–96; RESP 16–18; TEMP 36.6–37.1; O2SAT 91–98
[2022-06-17] MEDS: 0.9 % Sodium Chloride Flush 3 ML SYRINGE IVFLUSH ×4 (01:00→23:11)
[2022-06-17 05:37] LABS: Hematocrit 35.5 % (42.0-52.0); Hemoglobin 12.1 g/dl (14.0-18.0); Mean Corpuscular HGB Conc 34.1 g/dl (31.0-36.0); Mean Corpuscular Hemoglobin 27.9 pg (27.0-33.0); Mean Platelet Volume 9.7 fL (9.4-12.4); Platelet Count 144 X10*3/uL (160-400); Red Blood Count 4.33 X10*6/uL (4.60-5.80); Red Cell Distribution Width 14.3 % (11.0-16.0)
[2022-06-17 06:13] LABS: Anion Gap 17 (12-20); Blood Urea Nitrogen 14 mg/dL (9-16); Calcium 8.3 mg/dL (8.4-10.2); Carbon Dioxide 26 mmol/L (22-29); Chloride 94 mmol/L (96-108); Creatinine Clr Calc Pharmacy 92.1; Estimated Glomerular Filt Rate > 60; Glucose Fasting 149 mg/dL (60-99); Potassium 3.2 mmol/L (3.3-5.1); Sodium 134 mmol/L (135-145)
[2022-06-17 07:24] LABS: Glucose, Whole Blood 142 mg/dL (60-115)
[2022-06-17] MEDS: polyethylene glycoL 3350 17 GM POWD.PACK PO (09:00)
[2022-06-17] MEDS: Potassium Chloride Packet 20 MEQ PACKET 40 MEQ PO (09:00)
[2022-06-17] MEDS: Losartan Potassium 25 MG TABLET PO (09:01)
[2022-06-17] MEDS: Cholecalciferol (Vitamin D3) 25 MCG TABLET 50 MCG PO (09:03)
[2022-06-17] MEDS: Metoprolol Tartrate 100 MG TABLET PO ×2 (09:03→20:54)
[2022-06-17] MEDS: Docusate Sodium 100 MG CAPSULE PO ×2 (09:03→20:54)
[2022-06-17] MEDS: hydrALAZINE HCl 25 MG TABLET PO ×2 (09:04→20:54)
[2022-06-17] MEDS: amLODIPine Besylate 5 MG TABLET PO (09:04)
[2022-06-17] MEDS: Insulin Glargine,Hum.rec.anlog 100 UNIT/ML 10 ML VIAL 22 UNIT SUBCUT (09:26)
--- NOTE | 2022-06-17 10:16 | HO.PM.IMPN ---
Subjective Subjective Date of Service: 06/17/22 Interval History: cc: fall, hyopxic in ED interval history: back pain Cardiovascular Cardiovascular: Reports no additional cardiovascular complaints Respiratory Respiratory: Reports no additional respiratory complaints Physical Exam Vital Signs: Vital Signs: Last Vital Signs Temp 98.3 F 06/17/22 07:12 Pulse 91 06/17/22 07:12 Resp 18 06/17/22 07:12 BP 184/76 H 06/17/22 07:12 Pulse Ox 94 06/17/22 09:30 O2 Del Method 06/17/22 09:30 O2 Flow Rate 2 06/17/22 09:30 BMI result Body Mass Index 26.6 General: AO X 3, frail Resp: diminished bilateral, no accessory muscles used CVS: S1,S2,RRR GI: soft, non tender, non distended Neuro: motor grossly intact, alert Psych: appropriate affect, appropriate insight Objective Data Active Medications Acetaminophen (Acetaminophen 325 Mg Tablet) 650 mg PO Q6H PRN PRN Reason: Pain, Mild (Pain Scale 1-3) Last Admin: 06/16/22 16:49 Dose: 650 mg Documented By: OSMEL Amlodipine Besylate (Amlodipine Besylate 5 Mg Tablet) 5 mg PO DAILY [facility]; Protocol Last Admin: 06/17/22 09:04 Dose: 5 mg Documented By: RODRÍGUEZ Dextrose (Dextrose 50 % 25 Gm/50 Ml Syringe) 25 gm IVPUSH Q15M PRN; Protocol PRN Reason: per Hypoglycemia Standing Ord. Docusate Sodium (Docusate Sodium 100 Mg Capsule) 100 mg PO BID [facility] Last Admin: 06/17/22 09:03 Dose: 100 mg Documented By: RODRÍGUEZ Enoxaparin Sodium (Enoxaparin Sodium 40 Mg/0.4 Ml Syringe) 40 mg SUBCUT Q24H [facility] Last Admin: 06/16/22 11:48 Dose: 40 mg Documented By: OSMEL Glucose (Glucose Gel 15 Gm Gel..Gram.) 15 gm PO Q15M PRN; Protocol PRN Reason: per Hypoglycemia Standing Ord. Hydralazine HCl (Hydralazine Hcl 25 Mg Tablet) 25 mg PO BID [facility]; Protocol Last Admin: 06/17/22 09:04 Dose: 25 mg Documented By: RODRÍGUEZ Ceftriaxone Sodium 1 gm/ (Sodium Chloride) 50 mls @ 100 mls/hr IV Q24H [facility] Last Infusion: 06/16/22 12:31 Dose: 0 mls/hr Documented By: OSMEL Insulin Glargine (Insulin Glargine,Hum.Rec.Anlog 100 Unit/Ml 10 Ml Vial) 22 unit SUBCUT DAILY [facility] Last Admin: 06/17/22 09:26 Dose: 22 unit Documented By: RODRÍGUEZ Insulin Glargine (Insulin Glargine,Hum.Rec.Anlog 100 Unit/Ml 10 Ml Vial) 20 unit SUBCUT DAILY@0730 [facility] Last Admin: 06/16/22 08:30 Dose: 20 unit Documented By: OSMEL Insulin Human Lispro (Insulin Lispro 100 Unit/Ml 3 Ml Vial) 0 unit SUBCUT QIDACHS [facility]; Protocol Last Admin: 06/17/22 08:49 Dose: Not Given Documented By: RODRÍGUEZ Non-Admin Reason: No Insulin Coverage Losartan Potassium (Losartan Potassium 25 Mg Tablet) 25 mg PO DAILY [facility]; Protocol Last Admin: 06/17/22 09:01 Dose: 25 mg Documented By: RODRÍGUEZ Metoprolol Tartrate (Metoprolol Tartrate 100 Mg Tablet) 100 mg PO BID [facility]; Protocol Last Admin: 06/17/22 09:03 Dose: 100 mg Documented By: RODRÍGUEZ Patient Own Medication ( Rosuvastatin 10 Mg Tablet) 1 each PO DAILY [facility] Ondansetron HCl (Ondansetron Hcl 4 Mg/2 Ml Vial) 4 mg IVPUSH Q8H PRN PRN Reason: Nausea and Vomiting Oxycodone HCl (Oxycodone Hcl Immed Release 5 Mg Tablet) 5 mg PO Q6H PRN PRN Reason: severe pain Last Admin: 06/16/22 11:45 Dose: 5 mg Documented By: OSMEL Pharmacy Consult (Consult Rx Perform Med Rec) 1 each MISCELLANE ONCE PRN PRN Reason: Consult order Polyethylene Glycol (Polyethylene Glycol 3350 17 Gm Powd.Pack) 17 gm PO DAILY PRN PRN Reason: constipation Polyethylene Glycol (Polyethylene Glycol 3350 17 Gm Powd.Pack) 17 gm PO DAILY [facility] Last Admin: 06/17/22 09:00 Dose: 17 gm Documented By: RODRÍGUEZ Sodium Chloride (0.9 % Sodium Chloride Flush 3 Ml Syringe) 3 ml IVFLUSH QSHIFT [facility] Last Admin: 06/17/22 09:00 Dose: 3 ml Documented By: RODRÍGUEZ Vitamin D (Cholecalciferol (Vitamin D3) 25 Mcg Tablet) 50 mcg PO DAILY [facility] Last Admin: 06/17/22 09:03 Dose: 50 mcg Documented By: RODRÍGUEZ Labs CBC & Chem 7: 06/17/22 05:26 06/17/22 05:26 Labs: Laboratory Results - last 24 hr 06/16/22 06/16/22 06/16/22 11:04 16:35 19:32 MCV MCH MCHC RDW Plt Count MPV Absolute Nucleated RBC Nucleated RBC % (auto) Anion Gap Estim Creat Clear Calc Estimated GFR POC Glucose 278 H 238 H 254 H Fasting Glucose Calcium 06/17/22 06/17/22 06/17/22 05:26 05:26 07:12 MCV 82.0 MCH 27.9 MCHC 34.1 RDW 14.3 Plt Count 144 L MPV 9.7 Absolute Nucleated RBC 0.000 Nucleated RBC % (auto) 0.0 Anion Gap 17 Estim Creat Clear Calc 92.1 Estimated GFR > 60 POC Glucose 142 H Fasting Glucose 149 H D Calcium 8.3 L Microbiology Microbiology Results: Microbiology 06/15/22 15:00 Blood Culture - Preliminary Blood - Venous No growth after 24 hours. 06/15/22 15:00 Blood Culture - Preliminary Blood - Venous No growth after 24 hours. Assessment and Plan (1) Acute respiratory failure with hypoxia: Status: Acute Plan 74M with pmh Diabetes, hypertension, hyperlipidemia, chronic venous stasis dermatitis, presented the ED with mechanical fall, noted to have acute hypoxia. 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
[2022-06-17 11:27] LABS: Glucose, Whole Blood 268 mg/dL (60-115)
--- NOTE | 2022-06-17 11:33 | MHC.CM.PN ---
SNF REFERRAL UPDATED W/NEW CLINICALS, AWAITING PT DAILY NOTE TO REQUEST SNF GO FOR AUTH, PT NOTE TO BE SENT ONCE COMPLETE.
[2022-06-17] MEDS: Insulin Lispro 100 UNIT/ML 3 ML VIAL SUBCUT ×3 (12:30→20:54)
[2022-06-17] MEDS: Enoxaparin Sodium 40 MG/0.4 ML SYRINGE SUBCUT (12:32)
[2022-06-17] MEDS: cefTRIAXone sodium 1 GM in 0.9 % Sodium Chloride 50 ML IV (12:33)
--- NOTE | 2022-06-17 13:18 | MHC.CM.PN ---
Addendum entered by Aretha Benz RN 06/17/22 14:12: PER JOHAN BROOKS, [facility] CONTACTED PT'S INSURANCE AND THEY REPORTED PT IS NOT SKILLABLE AT THIS TIME AND WOULD NEED A FDC BED, PER JOHAN BROOKS THEY WILL NEED ONE MONTH PAID UPFRONT WHICH IN $[phone]. CM WILL FOLLOW UP W/PT. Original Note: EMR REVIEWED, PER JOHAN BROOKS THEY CAN OFFER PT A BED HOWEVER NOT UNTIL TOMORROW THEY HAVE NO BED TODAY, CM WILL CONT TO FOLLOW D/C NEEDS.
--- NOTE | 2022-06-17 13:25 | MHC.CLN ---
NUTRITION CONSULT FOR SKIN ALTERATION. PATIENT WITH NOTED REDNESS TO COCCYX. NO OPEN AREAS. CONTINUE DIABETIC 2000 KCAL DIET. NO NEW NUTRITION INTERVENTIONS.
[2022-06-17 16:19] LABS: Glucose, Whole Blood 267 mg/dL (60-115)
[2022-06-17 19:42] LABS: Glucose, Whole Blood 229 mg/dL (60-115)
[2022-06-18] VITALS (8 sets, daily range): BP systolic 105–169; BP diastolic 53–88; PULSE 73–120; RESP 16–20; TEMP 36.6–37.7; O2SAT 93–97
--- NOTE | 2022-06-18 | ECG_ITS ---
Test Reason : cp Blood Pressure : / mmHG Vent. Rate : 105 BPM Atrial Rate : 000 BPM P-R Int : 000 ms QRS Dur : 126 ms QT Int : 374 ms P-R-T Axes : 000 -77 029 degrees QTc Int : 494 ms Atrial fibrillation with rapid ventricular response with premature ventricular or aberrantly conducted complexes Right bundle branch block Left anterior fascicular block Bifascicular block Abnormal ECG When compared with ECG of 13-JUN-2022 17:00, Atrial fibrillation has replaced Sinus rhythm Vent. rate has increased BY 40 BPM Nonspecific T wave abnormality no longer evident in Lateral leads Referred By: Gordo Gonzalez Electronically Signed By:JARAD BRENNAN MD
[2022-06-18] MEDS: oxyCODONE HCl Immed Release 5 MG TABLET PO ×2 (01:42→13:32)
[2022-06-18] MEDS: Acetaminophen 325 MG TABLET 650 MG PO ×3 (01:42→21:25)
[2022-06-18 05:56] LABS: Hematocrit 35.7 % (42.0-52.0); Hemoglobin 11.9 g/dl (14.0-18.0); Mean Corpuscular HGB Conc 33.3 g/dl (31.0-36.0); Mean Corpuscular Hemoglobin 27.5 pg (27.0-33.0); Mean Corpuscular Volume 82.4 fL (80.0-98.0); Mean Platelet Volume 9.5 fL (9.4-12.4); Platelet Count 158 X10*3/uL (160-400); Red Blood Count 4.33 X10*6/uL (4.60-5.80); Red Cell Distribution Width 14.5 % (11.0-16.0); White Blood Count 6.8 X10*3/uL (4.8-10.8)
[2022-06-18 06:06] LABS: Anion Gap 14 (12-20); Blood Urea Nitrogen 17 mg/dL (9-16); Carbon Dioxide 29 mmol/L (22-29); Chloride 94 mmol/L (96-108); Creatinine Clr Calc Pharmacy 83.1; Estimated Glomerular Filt Rate > 60; Glucose Fasting 204 mg/dL (60-99); Potassium 3.5 mmol/L (3.3-5.1); Sodium 133 mmol/L (135-145)
[2022-06-18 07:45] LABS: Glucose, Whole Blood 184 mg/dL (60-115)
[2022-06-18] MEDS: amLODIPine Besylate 5 MG TABLET PO (08:45)
[2022-06-18] MEDS: Cholecalciferol (Vitamin D3) 25 MCG TABLET 50 MCG PO (08:46)
[2022-06-18] MEDS: Metoprolol Tartrate 100 MG TABLET PO ×2 (08:46→20:01)
[2022-06-18] MEDS: Insulin Glargine,Hum.rec.anlog 100 UNIT/ML 10 ML VIAL 20 UNIT SUBCUT (08:47)
[2022-06-18] MEDS: polyethylene glycoL 3350 17 GM POWD.PACK PO (08:47)
[2022-06-18] MEDS: hydrALAZINE HCl 25 MG TABLET PO ×2 (08:47→20:01)
[2022-06-18] MEDS: Docusate Sodium 100 MG CAPSULE PO ×2 (08:47→20:01)
[2022-06-18] MEDS: Losartan Potassium 25 MG TABLET PO (08:47)
[2022-06-18] MEDS: Insulin Lispro 100 UNIT/ML 3 ML VIAL SUBCUT ×4 (08:48→20:15)
[2022-06-18 11:34] LABS: Glucose, Whole Blood 321 mg/dL (60-115)
[2022-06-18] MEDS: Enoxaparin Sodium 40 MG/0.4 ML SYRINGE SUBCUT (11:36)
[2022-06-18] MEDS: 0.9 % Sodium Chloride Flush 3 ML SYRINGE IVFLUSH ×3 (11:37→20:15)
[2022-06-18] MEDS: cefTRIAXone sodium 1 GM in 0.9 % Sodium Chloride 50 ML IV (11:37)
--- NOTE | 2022-06-18 11:42 | HO.PM.IMPN ---
Subjective Subjective Date of Service: 06/18/22 Interval History: cc: fall, hyopxic in ED interval history: back pain Cardiovascular Cardiovascular: Reports no additional cardiovascular complaints Respiratory Respiratory: Reports no additional respiratory complaints Physical Exam Vital Signs: Vital Signs: Last Vital Signs Temp 98.4 F 06/18/22 08:00 Pulse 74 06/18/22 08:00 Resp 19 06/18/22 08:00 BP 146/65 H 06/18/22 08:00 Pulse Ox 97 06/18/22 08:00 O2 Del Method 06/18/22 08:00 O2 Flow Rate 1.0 06/18/22 08:00 BMI result Body Mass Index 26.6 General: AO X 3, frail Resp: diminished bilateral, no accessory muscles used CVS: S1,S2,RRR GI: soft, non tender, non distended Neuro: motor grossly intact, alert Psych: appropriate affect, appropriate insight Objective Data Active Medications Acetaminophen (Acetaminophen 325 Mg Tablet) 650 mg PO Q6H PRN PRN Reason: Pain, Mild (Pain Scale 1-3) Last Admin: 06/18/22 01:42 Dose: 650 mg Documented By: SU Amlodipine Besylate (Amlodipine Besylate 5 Mg Tablet) 5 mg PO DAILY [facility]; Protocol Last Admin: 06/18/22 08:45 Dose: 5 mg Documented By: RODRÍGUEZ Dextrose (Dextrose 50 % 25 Gm/50 Ml Syringe) 25 gm IVPUSH Q15M PRN; Protocol PRN Reason: per Hypoglycemia Standing Ord. Docusate Sodium (Docusate Sodium 100 Mg Capsule) 100 mg PO BID [facility] Last Admin: 06/18/22 08:47 Dose: 100 mg Documented By: RODRÍGUEZ Enoxaparin Sodium (Enoxaparin Sodium 40 Mg/0.4 Ml Syringe) 40 mg SUBCUT Q24H [facility] Last Admin: 06/18/22 11:36 Dose: 40 mg Documented By: RODRÍGUEZ Glucose (Glucose Gel 15 Gm Gel..Gram.) 15 gm PO Q15M PRN; Protocol PRN Reason: per Hypoglycemia Standing Ord. Hydralazine HCl (Hydralazine Hcl 25 Mg Tablet) 25 mg PO BID [facility]; Protocol Last Admin: 06/18/22 08:47 Dose: 25 mg Documented By: RODRÍGUEZ Ceftriaxone Sodium 1 gm/ (Sodium Chloride) 50 mls @ 100 mls/hr IV Q24H [facility] Last Admin: 06/18/22 11:37 Dose: 100 mls/hr Documented By: RODRÍGUEZ Insulin Glargine (Insulin Glargine,Hum.Rec.Anlog 100 Unit/Ml 10 Ml Vial) 20 unit SUBCUT DAILY@0730 [facility] Last Admin: 06/18/22 08:47 Dose: 20 unit Documented By: RODRÍGUEZ Insulin Glargine (Insulin Glargine,Hum.Rec.Anlog 100 Unit/Ml 10 Ml Vial) 22 unit SUBCUT BEDTIME [facility] Insulin Human Lispro (Insulin Lispro 100 Unit/Ml 3 Ml Vial) 0 unit SUBCUT QIDACHS [facility]; Protocol Last Admin: 06/18/22 11:36 Dose: 8 unit Documented By: RODRÍGUEZ Losartan Potassium (Losartan Potassium 25 Mg Tablet) 25 mg PO DAILY [facility]; Protocol Last Admin: 06/18/22 08:47 Dose: 25 mg Documented By: RODRÍGUEZ Metoprolol Tartrate (Metoprolol Tartrate 100 Mg Tablet) 100 mg PO BID [facility]; Protocol Last Admin: 06/18/22 08:46 Dose: 100 mg Documented By: RODRÍGUEZ Patient Own Medication ( Rosuvastatin 10 Mg Tablet) 1 each PO DAILY [facility] Ondansetron HCl (Ondansetron Hcl 4 Mg/2 Ml Vial) 4 mg IVPUSH Q8H PRN PRN Reason: Nausea and Vomiting Oxycodone HCl (Oxycodone Hcl Immed Release 5 Mg Tablet) 5 mg PO Q6H PRN PRN Reason: severe pain Last Admin: 06/18/22 01:42 Dose: 5 mg Documented By: SU Pharmacy Consult (Consult Rx Perform Med Rec) 1 each MISCELLANE ONCE PRN PRN Reason: Consult order Polyethylene Glycol (Polyethylene Glycol 3350 17 Gm Powd.Pack) 17 gm PO DAILY PRN PRN Reason: constipation Polyethylene Glycol (Polyethylene Glycol 3350 17 Gm Powd.Pack) 17 gm PO DAILY [facility] Last Admin: 06/18/22 08:47 Dose: 17 gm Documented By: RODRÍGUEZ Sodium Chloride (0.9 % Sodium Chloride Flush 3 Ml Syringe) 3 ml IVFLUSH QSHIFT [facility] Last Admin: 06/18/22 11:37 Dose: 3 ml Documented By: RODRÍGUEZ Vitamin D (Cholecalciferol (Vitamin D3) 25 Mcg Tablet) 50 mcg PO DAILY [facility] Last Admin: 06/18/22 08:46 Dose: 50 mcg Documented By: RODRÍGUEZ Labs CBC & Chem 7: 06/18/22 05:39 06/18/22 05:39 Labs: Laboratory Results - last 24 hr 06/17/22 06/17/22 06/18/22 15:52 19:38 05:39 MCV 82.4 MCH 27.5 MCHC 33.3 RDW 14.5 Plt Count 158 L MPV 9.5 Absolute Nucleated RBC 0.000 Nucleated RBC % (auto) 0.0 Anion Gap Estim Creat Clear Calc Estimated GFR POC Glucose 267 H 229 H Fasting Glucose Calcium 06/18/22 06/18/22 06/18/22 05:39 07:17 11:27 MCV MCH MCHC RDW Plt Count MPV Absolute Nucleated RBC Nucleated RBC % (auto) Anion Gap 14 Estim Creat Clear Calc 83.1 Estimated GFR > 60 POC Glucose 184 H 321 H Fasting Glucose 204 H D Calcium 8.0 L Microbiology Microbiology Results: Microbiology 06/15/22 15:00 Blood Culture - Preliminary Blood - Venous No growth after 48 hours. 06/15/22 15:00 Blood Culture - Preliminary Blood - Venous No growth after 48 hours. Assessment and Plan (1) Acute respiratory failure with hypoxia: Status: Acute Plan 74M with pmh Diabetes, hypertension, hyperlipidemia, chronic venous stasis dermatitis, presented the ED with mechanical fall, noted to have acute hypoxia. 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
--- NOTE | 2022-06-18 13:52 | HO.PM.IMPN ---
Subjective Subjective Date of Service: 06/18/22 Interval History: cc: fall, hyopxic in ED interval history: back pain Cardiovascular Cardiovascular: Reports no additional cardiovascular complaints Respiratory Respiratory: Reports no additional respiratory complaints Physical Exam Vital Signs: Vital Signs: Last Vital Signs Temp 99.4 F 06/18/22 11:51 Pulse 73 06/18/22 11:51 Resp 17 06/18/22 11:51 BP 169/77 H 06/18/22 11:51 Pulse Ox 93 06/18/22 11:51 O2 Del Method 06/18/22 11:51 O2 Flow Rate 1.0 06/18/22 08:00 BMI result Body Mass Index 26.6 General: AO X 3, frail Resp: diminished bilateral, no accessory muscles used CVS: S1,S2,RRR GI: soft, non tender, non distended Neuro: motor grossly intact, alert Psych: appropriate affect, appropriate insight Objective Data Active Medications Acetaminophen (Acetaminophen 325 Mg Tablet) 650 mg PO Q6H PRN PRN Reason: Pain, Mild (Pain Scale 1-3) Last Admin: 06/18/22 13:32 Dose: 650 mg Documented By: RODRÍGUEZ Amlodipine Besylate (Amlodipine Besylate 5 Mg Tablet) 5 mg PO DAILY [facility]; Protocol Last Admin: 06/18/22 08:45 Dose: 5 mg Documented By: RODRÍGUEZ Dextrose (Dextrose 50 % 25 Gm/50 Ml Syringe) 25 gm IVPUSH Q15M PRN; Protocol PRN Reason: per Hypoglycemia Standing Ord. Docusate Sodium (Docusate Sodium 100 Mg Capsule) 100 mg PO BID [facility] Last Admin: 06/18/22 08:47 Dose: 100 mg Documented By: RODRÍGUEZ Enoxaparin Sodium (Enoxaparin Sodium 40 Mg/0.4 Ml Syringe) 40 mg SUBCUT Q24H [facility] Last Admin: 06/18/22 11:36 Dose: 40 mg Documented By: RODRÍGUEZ Glucose (Glucose Gel 15 Gm Gel..Gram.) 15 gm PO Q15M PRN; Protocol PRN Reason: per Hypoglycemia Standing Ord. Hydralazine HCl (Hydralazine Hcl 25 Mg Tablet) 25 mg PO BID [facility]; Protocol Last Admin: 06/18/22 08:47 Dose: 25 mg Documented By: RODRÍGUEZ Ceftriaxone Sodium 1 gm/ (Sodium Chloride) 50 mls @ 100 mls/hr IV Q24H [facility] Last Infusion: 06/18/22 13:23 Dose: 0 mls/hr Documented By: DIPAK Insulin Glargine (Insulin Glargine,Hum.Rec.Anlog 100 Unit/Ml 10 Ml Vial) 20 unit SUBCUT DAILY@0730 [facility] Last Admin: 06/18/22 08:47 Dose: 20 unit Documented By: RODRÍGUEZ Insulin Glargine (Insulin Glargine,Hum.Rec.Anlog 100 Unit/Ml 10 Ml Vial) 22 unit SUBCUT BEDTIME [facility] Insulin Human Lispro (Insulin Lispro 100 Unit/Ml 3 Ml Vial) 0 unit SUBCUT QIDACHS [facility]; Protocol Last Admin: 06/18/22 11:36 Dose: 8 unit Documented By: RODRÍGUEZ Losartan Potassium (Losartan Potassium 25 Mg Tablet) 25 mg PO DAILY [facility]; Protocol Last Admin: 06/18/22 08:47 Dose: 25 mg Documented By: RODRÍGUEZ Metoprolol Tartrate (Metoprolol Tartrate 100 Mg Tablet) 100 mg PO BID [facility]; Protocol Last Admin: 06/18/22 08:46 Dose: 100 mg Documented By: RODRÍGUEZ Patient Own Medication ( Rosuvastatin 10 Mg Tablet) 1 each PO DAILY [facility] Ondansetron HCl (Ondansetron Hcl 4 Mg/2 Ml Vial) 4 mg IVPUSH Q8H PRN PRN Reason: Nausea and Vomiting Oxycodone HCl (Oxycodone Hcl Immed Release 5 Mg Tablet) 5 mg PO Q6H PRN PRN Reason: severe pain Last Admin: 06/18/22 13:32 Dose: 5 mg Documented By: RODRÍGUEZ Pharmacy Consult (Consult Rx Perform Med Rec) 1 each MISCELLANE ONCE PRN PRN Reason: Consult order Polyethylene Glycol (Polyethylene Glycol 3350 17 Gm Powd.Pack) 17 gm PO DAILY PRN PRN Reason: constipation Polyethylene Glycol (Polyethylene Glycol 3350 17 Gm Powd.Pack) 17 gm PO DAILY [facility] Last Admin: 06/18/22 08:47 Dose: 17 gm Documented By: RODRÍGUEZ Sodium Chloride (0.9 % Sodium Chloride Flush 3 Ml Syringe) 3 ml IVFLUSH QSHIFT [facility] Last Admin: 06/18/22 11:37 Dose: 3 ml Documented By: RODRÍGUEZ Vitamin D (Cholecalciferol (Vitamin D3) 25 Mcg Tablet) 50 mcg PO DAILY [facility] Last Admin: 06/18/22 08:46 Dose: 50 mcg Documented By: RODRÍGUEZ Labs CBC & Chem 7: 06/18/22 05:39 06/18/22 05:39 Labs: Laboratory Results - last 24 hr 06/17/22 06/17/22 06/18/22 15:52 19:38 05:39 MCV 82.4 MCH 27.5 MCHC 33.3 RDW 14.5 Plt Count 158 L MPV 9.5 Absolute Nucleated RBC 0.000 Nucleated RBC % (auto) 0.0 Anion Gap Estim Creat Clear Calc Estimated GFR POC Glucose 267 H 229 H Fasting Glucose Calcium 06/18/22 06/18/22 06/18/22 05:39 07:17 11:27 MCV MCH MCHC RDW Plt Count MPV Absolute Nucleated RBC Nucleated RBC % (auto) Anion Gap 14 Estim Creat Clear Calc 83.1 Estimated GFR > 60 POC Glucose 184 H 321 H Fasting Glucose 204 H D Calcium 8.0 L Microbiology Microbiology Results: Microbiology 06/15/22 15:00 Blood Culture - Preliminary Blood - Venous No growth after 48 hours. 06/15/22 15:00 Blood Culture - Preliminary Blood - Venous No growth after 48 hours. Assessment and Plan (1) Acute respiratory failure with hypoxia: Status: Acute Plan 74M with pmh Diabetes, hypertension, hyperlipidemia, chronic venous stasis dermatitis, presented the ED with mechanical fall, noted to have acute hypoxia. 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
[2022-06-18] MEDS: Lidocaine 4 % Patch ADH..PATCH 1 PATCH TRANSDERMA (15:13)
[2022-06-18 16:04] LABS: Glucose, Whole Blood 272 mg/dL (60-115)
[2022-06-18 19:46] LABS: Glucose, Whole Blood 212 mg/dL (60-115)
[2022-06-18] MEDS: Insulin Glargine,Hum.rec.anlog 100 UNIT/ML 10 ML VIAL 22 UNIT SUBCUT (20:14)
--- NOTE | 2022-06-18 20:26 | PM.EVENT ---
Event Note Date of Service: 06/18/22 Event Note: Patient went into AFib with RVR with a heart rate in the 150s. Will obtain an EKG, placed on telemetry. No history of AFib documented in the past. Will obtain troponin and an echocardiogram.
[2022-06-18 21:28] LABS: Troponin-I High Sensitivity 37.4 ng/L (<3.5-35.0)
--- NOTE | 2022-06-18 23:14 | PC.NURSE ---
At 1999 patient was reported to have a HR in 150's. Nurse put tele monitor to confirm heart rate. MD was notified. Patient had not symptoms. MD ordered continuous tele, EKG, and lopressor. By the time the lopressor was available to be given the patient, the patient converted to regular rate. MD said to hold lopressor to see if he returns to RVR
[2022-06-19 03:36] VITALS: BP 131/70; PULSE 76; RESP 18; TEMP 36.6; O2SAT 95
[2022-06-19 06:22] LABS: Hematocrit 38.2 % (42.0-52.0); Hemoglobin 12.8 g/dl (14.0-18.0); Mean Corpuscular HGB Conc 33.5 g/dl (31.0-36.0); Mean Corpuscular Hemoglobin 27.4 pg (27.0-33.0); Mean Corpuscular Volume 81.8 fL (80.0-98.0); Mean Platelet Volume 9.7 fL (9.4-12.4); Platelet Count 176 X10*3/uL (160-400); Red Blood Count 4.67 X10*6/uL (4.60-5.80); Red Cell Distribution Width 14.5 % (11.0-16.0); White Blood Count 7.8 X10*3/uL (4.8-10.8)
[2022-06-19 06:53] LABS: Anion Gap 14 (12-20); Blood Urea Nitrogen 15 mg/dL (9-16); Calcium 8.2 mg/dL (8.4-10.2); Carbon Dioxide 28 mmol/L (22-29); Chloride 93 mmol/L (96-108); Estimated Glomerular Filt Rate > 60; Glucose Fasting 144 mg/dL (60-99); Potassium 3.4 mmol/L (3.3-5.1); Sodium 132 mmol/L (135-145)
--- NOTE | 2022-06-19 07:00 | CA_ITS ---
Transthoracic Echocardiogram Patient (Last, First, Middle): Karthikeyan Ayala E Gender: Male Date of : 1940 Age: 81 Procedure Date: 06/19/2022 Procedure Type: Transthoracic Echocardiogram Location: S3E Height: 175.26 cm Weight: 81.65 kg BSA: 1.98 m2 Heart Rate: bpm BP: 131 / 70 mmHg Network Relations Consultant: SB Referring MD: Gordo Gonzalez MD Therapeutic Riding Instructor: Topher Wheeler MD Symptoms: A fib, new onset Study Quality: Technically Difficult ECG Rhythm: Atrial Fibrillation Conclusions: - 1. Technically limited study despite use of contrast agent 2. Hyperdynamic LV systolic function with LVEF of greater than 70% on this study 3. Mildly dilated left atrium 4. Limited visualization of cardiac valves with normal cardiac valvular Dopplers 5. Normal RV systolic pressure Findings Procedure Information Contrast agent, definity, is being given per protocol without apparent complications. Left Ventricle Normal left ventricular cavity size. There is normal left ventricular wall thickness. The left ventricular systolic function is hyperdynamic. The visually estimated ejection fraction is >70%. Regional wall motion abnormalities can not be excluded due to suboptimal endocardial definition. Diastolic function is indeterminate on the basis of available data. Right Ventricle The right ventricle was not well visualized. Atria The left atrium is mildly dilated. Interatrial shunt cannot be excluded. The right atrium was not well visualized. Aortic Valve The aortic valve was not well visualized. There is no aortic valve stenosis. There is no aortic valve regurgitation. Mitral Valve There is mild anterior and posterior mitral leaflet thickening. There is trace mitral valve regurgitation. There is no mitral valve stenosis. Pulmonic Valve The pulmonic valve was not well visualized. Tricuspid Valve The tricuspid valve was not well visualized. There is trace tricuspid valve regurgitation. The right ventricular systolic pressure is normal. The right ventricular systolic pressure is 30 mmHg. There is no evidence of pulmonary hypertension. Great Vessels The aorta was not well visualized. The pulmonary artery was not well visualized. Venous The inferior vena cava is normal in size and collapses greater than 50% with inspiration. Pericardium/Pleural The pericardium was not well visualized. Prior Study Comparison No prior study available for comparison. Measurements 2D Linear Measurements IVSd: 0.95 0.6-0.9/0.6-1.0 cm LVIDd: 4.60 3.9-5.3/4.2-5.9 cm LVIDd Index: 2.32 2.4-3.2/2.2-3.1 cm/m2 LVPWd: 1.08 0.7-1.1 cm LA Diam: 4.30 2.7-3.8/3.0-4.0 cm LAIDs Index: 2.17 1.5-2.3 cm/m2 LV Mass: 201.73 67-162/88-224 g LV Mass Index: 101.88 43-95/49-115 g/m2 LVOT Diam: 2.00 3.0+(-)1.3 cm 2D Systolic Function EF 4C: 79.20 >55% EF 2C: 75.10 >55% EF BiP: 77.00 >55% Mitral Valve MV Pk E: 1.15 MV PK A: 0.42 MV Decel Time: 137.00 E/A: 2.70 E'Lateral: 6.74 E/E' Lat: 17.10 PHT: 40.00 MVA PHT: 5.50 Decel [place]: 8.39 Aortic Valve AoV Pk James: 1.62 AoV Mn James: 1.19 AoV VTI: 0.26 AoV Pk Grad: 10.00 Aov Mn Grad: 7.00 SO Cont.VTI: 2.41 LVOT LVOT Pk James: 1.05 LVOT Mn James: 0.76 LVOT VTI: 0.20 LVOT Pk Grad: 4.00 LVOT Mn Grad: 3.00 LVOT Diam: 2.00 LVOT Area: 3.14 Diastolic Function MV Pk E: 1.15 MV Pk A: 0.42 E/A: 2.70 E' Laterial: 6.74 E/E' Lat: 17.10 Right Ventricle TAPSE (mm): 7.80 Tricuspid Valve TR Pk James: 2.37 TR Pk Grad: 22.00 RA Press: 8.00 RVSP: 30.00 Great Vessels Aorta Sinus of Valsalva: 3.20 2.0-3.5 cm Ao Asc: 3.20 2.1-3.4 cm Updated in Other Vendor System with Status of Final Topher Wheeler MD electronically signed on 06/19/2022 3:23:39 PM with status of Final
[2022-06-19 07:23] LABS: Glucose, Whole Blood 160 mg/dL (60-115)
[2022-06-19 07:49] VITALS: BP 184/86; PULSE 113; RESP 18; TEMP 37.6; O2SAT 90
[2022-06-19] MEDS: Cholecalciferol (Vitamin D3) 25 MCG TABLET 50 MCG PO (08:03)
[2022-06-19] MEDS: hydrALAZINE HCl 25 MG TABLET PO ×2 (08:07→21:06)
[2022-06-19] MEDS: amLODIPine Besylate 5 MG TABLET PO (08:07)
[2022-06-19] MEDS: Acetaminophen 325 MG TABLET 650 MG PO (08:07)
[2022-06-19] MEDS: Docusate Sodium 100 MG CAPSULE PO ×2 (08:08→21:07)
[2022-06-19] MEDS: Metoprolol Tartrate 100 MG TABLET PO (08:08)
[2022-06-19] MEDS: polyethylene glycoL 3350 17 GM POWD.PACK PO (08:08)
[2022-06-19] MEDS: Lidocaine 4 % Patch ADH..PATCH 1 PATCH TRANSDERMA (08:08)
[2022-06-19] MEDS: Losartan Potassium 25 MG TABLET PO (08:08)
[2022-06-19] MEDS: Insulin Lispro 100 UNIT/ML 3 ML VIAL SUBCUT ×4 (08:09→21:24)
[2022-06-19] MEDS: Insulin Glargine,Hum.rec.anlog 100 UNIT/ML 10 ML VIAL 20 UNIT SUBCUT ×2 (08:10→21:23)
[2022-06-19] MEDS: 0.9 % Sodium Chloride Flush 3 ML SYRINGE IVFLUSH ×3 (08:10→23:25)
[2022-06-19] MEDS: Apixaban 5 MG TABLET PO ×2 (10:46→21:06)
[2022-06-19] MEDS: cefTRIAXone sodium 1 GM in 0.9 % Sodium Chloride 50 ML IV (10:46)
[2022-06-19 11:00] LABS: Glucose, Whole Blood 250 mg/dL (60-115)
[2022-06-19 12:00] VITALS: BP 141/74; PULSE 79; RESP 18; TEMP 37.6; O2SAT 98
--- NOTE | 2022-06-19 12:19 | HO.PM.IMPN ---
Subjective Subjective Date of Service: 06/19/22 Interval History: the patient was seen and evaluated this morning Laying in bed, feels comfortable Broken to AFib with RVR overnight, back to controlled rhythm in 80s Still complaining of back pain No reported other overnight events. Systemic review: No fever, chills or weakness Denies any chest pain, palpitation No shortness of breath or coughing No abdominal pain, nausea or vomiting No urinary symptoms No reported rash Physical Exam Vital Signs: Vital Signs: Last Vital Signs Temp 99.6 F 06/19/22 12:00 Pulse 79 06/19/22 12:00 Resp 18 06/19/22 12:00 BP 141/74 H 06/19/22 12:00 Pulse Ox 98 06/19/22 12:00 O2 Del Method 06/19/22 12:00 O2 Flow Rate 1.0 06/19/22 07:49 BMI result Body Mass Index 26.6 Const: Other: Constitutional : Awake, interactive, not in distress Neck : Normal inspection, Supple Cardiovascular : Irregular irregular, no JVP, no lower extremity edema Respiratory : good bilateral air entry, no crackles, wheezes or rhonchi Gastrointestinal: soft, lax, Normal bowel sounds, Non tender Skin : Warm, Dry Neurological : Alert & oriented x3, No focal deficit Objective Data Active Medications Acetaminophen (Acetaminophen 325 Mg Tablet) 650 mg PO Q6H PRN PRN Reason: Pain, Mild (Pain Scale 1-3) Last Admin: 06/19/22 08:07 Dose: 650 mg Documented By: SUE Amlodipine Besylate (Amlodipine Besylate 5 Mg Tablet) 5 mg PO DAILY [facility]; Protocol Last Admin: 06/19/22 08:07 Dose: 5 mg Documented By: SUE Apixaban (Apixaban 5 Mg Tablet) 5 mg PO BID [facility] Last Admin: 06/19/22 10:46 Dose: 5 mg Documented By: SUE Dextrose (Dextrose 50 % 25 Gm/50 Ml Syringe) 25 gm IVPUSH Q15M PRN; Protocol PRN Reason: per Hypoglycemia Standing Ord. Docusate Sodium (Docusate Sodium 100 Mg Capsule) 100 mg PO BID [facility] Last Admin: 06/19/22 08:08 Dose: 100 mg Documented By: SUE Glucose (Glucose Gel 15 Gm Gel..Gram.) 15 gm PO Q15M PRN; Protocol PRN Reason: per Hypoglycemia Standing Ord. Hydralazine HCl (Hydralazine Hcl 25 Mg Tablet) 25 mg PO BID [facility]; Protocol Last Admin: 06/19/22 08:07 Dose: 25 mg Documented By: SUE Ceftriaxone Sodium 1 gm/ (Sodium Chloride) 50 mls @ 100 mls/hr IV Q24H [facility] Last Infusion: 06/19/22 12:07 Dose: 0 mls/hr Documented By: SUE Insulin Glargine (Insulin Glargine,Hum.Rec.Anlog 100 Unit/Ml 10 Ml Vial) 20 unit SUBCUT DAILY@0730 [facility] Last Admin: 06/19/22 08:10 Dose: 20 unit Documented By: SUE Insulin Glargine (Insulin Glargine,Hum.Rec.Anlog 100 Unit/Ml 10 Ml Vial) 22 unit SUBCUT BEDTIME [facility] Last Admin: 06/18/22 20:14 Dose: 22 unit Documented By: TOY Insulin Human Lispro (Insulin Lispro 100 Unit/Ml 3 Ml Vial) 0 unit SUBCUT QIDACHS [facility]; Protocol Last Admin: 06/19/22 12:06 Dose: 4 unit Documented By: SUE Lidocaine (Lidocaine 4 % Patch Adh..Patch) 1 patch TRANSDERMA DAILY [facility]; Protocol Last Admin: 06/19/22 08:08 Dose: 1 patch Documented By: SUE Losartan Potassium (Losartan Potassium 25 Mg Tablet) 25 mg PO DAILY [facility]; Protocol Last Admin: 06/19/22 08:08 Dose: 25 mg Documented By: SUE Metoprolol Tartrate (Metoprolol Tartrate 100 Mg Tablet) 100 mg PO BID [facility]; Protocol Last Admin: 06/19/22 08:08 Dose: 100 mg Documented By: SUE Patient Own Medication ( Rosuvastatin 10 Mg Tablet) 1 each PO DAILY [facility] Ondansetron HCl (Ondansetron Hcl 4 Mg/2 Ml Vial) 4 mg IVPUSH Q8H PRN PRN Reason: Nausea and Vomiting Oxycodone HCl (Oxycodone Hcl Immed Release 5 Mg Tablet) 5 mg PO Q6H PRN PRN Reason: severe pain Last Admin: 06/18/22 13:32 Dose: 5 mg Documented By: RODRÍGUEZ Pharmacy Consult (Consult Rx Perform Med Rec) 1 each MISCELLANE ONCE PRN PRN Reason: Consult order Polyethylene Glycol (Polyethylene Glycol 3350 17 Gm Powd.Pack) 17 gm PO DAILY PRN PRN Reason: constipation Polyethylene Glycol (Polyethylene Glycol 3350 17 Gm Powd.Pack) 17 gm PO DAILY [facility] Last Admin: 06/19/22 08:08 Dose: 17 gm Documented By: SUE Sodium Chloride (0.9 % Sodium Chloride Flush 3 Ml Syringe) 3 ml IVFLUSH QSHIFT [facility] Last Admin: 06/19/22 08:10 Dose: 3 ml Documented By: SUE Vitamin D (Cholecalciferol (Vitamin D3) 25 Mcg Tablet) 50 mcg PO DAILY [facility] Last Admin: 06/19/22 08:03 Dose: 50 mcg Documented By: SUE Labs CBC & Chem 7: 06/19/22 05:20 06/19/22 05:20 Labs: Laboratory Results - last 24 hr 06/18/22 06/18/22 06/18/22 15:56 19:40 20:57 MCV MCH MCHC RDW Plt Count MPV Absolute Nucleated RBC Nucleated RBC % (auto) Anion Gap Estim Creat Clear Calc Estimated GFR POC Glucose 272 H 212 H Fasting Glucose Calcium Troponin I High Sens 37.4 H 06/19/22 06/19/22 06/19/22 05:20 05:20 07:07 MCV 81.8 MCH 27.4 MCHC 33.5 RDW 14.5 Plt Count 176 MPV 9.7 Absolute Nucleated RBC 0.000 Nucleated RBC % (auto) 0.0 Anion Gap 14 Estim Creat Clear Calc 88.0 Estimated GFR > 60 POC Glucose 160 H Fasting Glucose 144 H Calcium 8.2 L Troponin I High Sens 06/19/22 10:51 MCV MCH MCHC RDW Plt Count MPV Absolute Nucleated RBC Nucleated RBC % (auto) Anion Gap Estim Creat Clear Calc Estimated GFR POC Glucose 250 H Fasting Glucose Calcium Troponin I High Sens Assessment and Plan (1) Acute respiratory failure with hypoxia: Status: Acute (2) Cellulitis of right lower extremity: Status: Acute (3) Fall: Status: Acute Plan 74M with pmh Diabetes, hypertension, hyperlipidemia, chronic venous stasis dermatitis, presented the ED with mechanical fall, noted to have acute hypoxia. 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
[2022-06-19] MEDS: Azithromycin 500 MG TABLET PO (12:52)
[2022-06-19 14:02] LABS: COVID-19 Test Negative (Negative); IDNOW Serial# 9DB6401D
--- NOTE | 2022-06-19 14:24 | P.CONCA_ITS ---
History of Present Illness History of Present Illness Date of Service: 06/19/22 Requesting physician: Zhou Henry Consult reason: atrial fibrillation Chief complaint: acute hypoxic respiratory failure, cellulitis RLE Narrative: I was consulted to see Karthikeyan in cardiology consultation today for atrial fibrillation, new onset. Patient has extensive prior cardiac history including history of coronary artery disease status post coronary artery bypass grafting in 1992 followed by drug-eluting stent to the circumflex as well as the SVG graft to PDA in 2009. He also had repeat stress test in 2011 which was abnormal with inferior and lateral wall ischemia being managed medically. He follows with Dr. Coley at [facility] and usually takes all his medications. He has prior history of hypertension, diabetes as well as hyperlipidemia. He came to the hospital with history of fall with no obvious other abnormalities. On presentation was noted to be hypoxic and placed on oxygen. Since then he has been oxygen being treated for cellulitis as well as possible pneumonia. Patient yesterday developed atrial fibrillation rapid ventricular response. For surgery with rate control with IV metoprolol subsequently increase metoprolol. Rate appears to be better controlled. He is also started on oral anticoagulation therapy with Eliquis. He denies any palpitations yesterday. Also denies any irregular heartbeat or palpitations. Does not recall ever being told that he had atrial fibrillation. There is no worsening in his hypoxemia or any signs of heart failure at this point in time. Review of Systems Review of Systems: Yes all other systems are reviewed and are negative [facility] Past Medical History Medical History CAD (coronary artery disease) Diabetes mellitus with coincident hypertension Hyperlipidemia Hypertension Family History Family History Mother Stroke Cancer Father No problems noted. Surgical History Surgical History H/O heart surgery Social History Social History Household Members: None Housing: House Do you presently have visiting nurse or other home services: No Alcohol intake: never Patient Tobacco Use Status: Never used Tobacco Tobacco use type: Cigarette Smoked in Last 30 Days: No e-Cigarette/Vaping Use: Never Used Second Hand Smoke Exposure: No Use of substances other than those prescribed or required for medical reasons: No Currently Displaying Signs/Symptoms of Drug Intoxication Withdrawal: No Have you been hit, kicked, punched, or otherwise hurt by someone within the past year? If so, by whom?: No Do you feel safe in your current relationship?: No Current Relationship Is there a partner from a previous relationship who is making you feel unsafe now?: No Are you made to feel afraid or neglected: No Advance Directives: No Advance Directives Information Provided: No Do you have thoughts of harming others: None Do you have a plan to hurt others: No Plan Recently lost weight without trying: No How much weight loss: Not applicable Eating poorly because of decreased appetite: No Nutrition screen score: 0 Poor oral hygiene: Yes (multiple missing teeth, dentures) service: No Current occupational status: retired Cognitive needs: Yes (walker) Hearing needs: No Vision needs: Yes (glasses) Meds Allergies Allergy/AdvReac Type Severity Reaction Status Date / Time Lblbtgk-MBF-[id number] Reductase Allergy Mild Burning Verified 06/17/22 07:48 Inhibitor sensation [Mxgkolq-Vim-Koy Reductase Inhibitor] Active Medications: Current Medications Acetaminophen (Acetaminophen 325 Mg Tablet) 650 mg PO Q6H PRN PRN Reason: Pain, Mild (Pain Scale 1-3) Last Admin: 06/19/22 08:07 Dose: 650 mg Amlodipine Besylate (Amlodipine Besylate 5 Mg Tablet) 5 mg PO DAILY NICOLE; Jay Jay col Last Admin: 06/19/22 08:07 Dose: 5 mg Apixaban (Apixaban 5 Mg Tablet) 5 mg PO BID [facility] Last Admin: 06/19/22 10:46 Dose: 5 mg Azithromycin (Azithromycin 500 Mg Tablet) 500 mg PO Q24H [facility] Last Admin: 06/19/22 12:52 Dose: 500 mg Dextrose (Dextrose 50 % 25 Gm/50 Ml Syringe) 25 gm IVPUSH Q15M PRN; Protocol PRN Reason: per Hypoglycemia Standing Ord. Docusate Sodium (Docusate Sodium 100 Mg Capsule) 100 mg PO BID [facility] Last Admin: 06/19/22 08:08 Dose: 100 mg Glucose (Glucose Gel 15 Gm Gel..Gram.) 15 gm PO Q15M PRN; Protocol PRN Reason: per Hypoglycemia Standing Ord. Hydralazine HCl (Hydralazine Hcl 25 Mg Tablet) 25 mg PO BID [facility]; Protocol Last Admin: 06/19/22 08:07 Dose: 25 mg Ceftriaxone Sodium 1 gm/ (Sodium Chloride) 50 mls @ 100 mls/hr IV Q24H [facility] Last Infusion: 06/19/22 12:07 Dose: Infused Insulin Glargine (Insulin Glargine,Hum.Rec.Anlog 100 Unit/Ml 10 Ml Vial) 20 unit SUBCUT DAILY@0730 [facility] Last Admin: 06/19/22 08:10 Dose: 20 unit Insulin Glargine (Insulin Glargine,Hum.Rec.Anlog 100 Unit/Ml 10 Ml Vial) 22 unit SUBCUT BEDTIME [facility] Last Admin: 06/18/22 20:14 Dose: 22 unit Insulin Human Lispro (Insulin Lispro 100 Unit/Ml 3 Ml Vial) 0 unit SUBCUT QIDACHS [facility]; Protocol Last Admin: 06/19/22 12:06 Dose: 4 unit Lidocaine (Lidocaine 4 % Patch Adh..Patch) 1 patch TRANSDERMA DAILY [facility]; Protocol Last Admin: 06/19/22 08:08 Dose: 1 patch Losartan Potassium (Losartan Potassium 25 Mg Tablet) 25 mg PO DAILY [facility]; Protocol Last Admin: 06/19/22 08:08 Dose: 25 mg Metoprolol Tartrate (Metoprolol Tartrate 100 Mg Tablet) 100 mg PO BID [facility]; Protocol Last Admin: 06/19/22 08:08 Dose: 100 mg Patient Own Medication ( Rosuvastatin 10 Mg Tablet) 1 each PO DAILY [facility] Ondansetron HCl (Ondansetron Hcl 4 Mg/2 Ml Vial) 4 mg IVPUSH Q8H PRN PRN Reason: Nausea and Vomiting Oxycodone HCl (Oxycodone Hcl Immed Release 5 Mg Tablet) 5 mg PO Q6H PRN PRN Reason: severe pain Last Admin: 06/18/22 13:32 Dose: 5 mg Pharmacy Consult (Consult Rx Perform Med Rec) 1 each MISCELLANE ONCE PRN PRN Reason: Consult order Polyethylene Glycol (Polyethylene Glycol 3350 17 Gm Powd.Pack) 17 gm PO DAILY PRN PRN Reason: constipation Polyethylene Glycol (Polyethylene Glycol 3350 17 Gm Powd.Pack) 17 gm PO DAILY [facility] Last Admin: 06/19/22 08:08 Dose: 17 gm Sodium Chloride (0.9 % Sodium Chloride Flush 3 Ml Syringe) 3 ml IVFLUSH QSHIFT [facility] Last Admin: 06/19/22 08:10 Dose: 3 ml Vitamin D (Cholecalciferol (Vitamin D3) 25 Mcg Tablet) 50 mcg PO DAILY [facility] Last Admin: 06/19/22 08:03 Dose: 50 mcg Home Medications Medication Instructions Recorded Confirmed Last Taken Type insulin human U-100 NPH-regulr 40 unit subcut DAILY@1300 06/14/22 06/14/22 Unknown History 70-30 mix 100 unit/mL subcutaneous susp insulin human U-100 NPH-regulr 60 unit subcut DAILY 06/14/22 06/14/22 Unknown History 70-30 mix 100 unit/mL subcutaneous susp Physical Exam Vital Signs: Vital Signs: Last Vital Signs Temp 99.6 F 06/19/22 12:00 Pulse 79 06/19/22 12:00 Resp 18 06/19/22 12:00 BP 141/74 H 06/19/22 12:00 Pulse Ox 98 06/19/22 12:00 O2 Del Method 06/19/22 12:00 O2 Flow Rate 1.0 06/19/22 07:49 BMI result Body Mass Index 26.6 Const: General: cooperative, comfortable, no acute distress, alert and awake Nutritional Appearance: average body habitus Orientation/consciousness: patient oriented x3 HEENT: Head: Yes normocephalic and Yes atraumatic Neck: Neck: Yes trachea midline, Yes supple and Yes no JVD Chest: Chest palpation & inspection: other (Well-healed sternotomy scar) Resp: Effort & Inspection: decreased respiratory effort Auscultation: no rales, no rhonchi and diminished lung sounds Cardio: Jugular venous distension: no JVD Rate: tachycardic Rhythm: abnormal rhythm irregularly irregular Heart sounds: S1 normal heart sound present, S2 normal heart sound present, no click, no gallops and no murmurs GI: Auscultation: normal bowel sounds Skin: General skin exam: no rashes or lesions noted and ecchymosis Neuro: General: patient oriented x3 and no focal motor deficits Extrem: General: Yes no clubbing, cyanosis or edema and Yes venous stasis dermatitis Objective Labs and Meds Result diagrams: 06/19/22 05:20 06/19/22 05:20 Lab results: Laboratory Results - last 24 hr 11/15/22 11/15/22 11/15/22 15:56 19:40 20:57 WBC RBC Hgb Hct MCV MCH MCHC RDW Plt Count MPV Absolute Nucleated RBC Nucleated RBC % (auto) Sodium Potassium Chloride Carbon Dioxide Anion Gap BUN Creatinine Estim Creat Clear Calc Estimated GFR POC Glucose 272 H 212 H Fasting Glucose Calcium Troponin I High Sens 37.4 H COVID-19 (JOSH) COVID-19 Clin Com 06/19/22 06/19/22 06/19/22 05:20 05:20 07:07 WBC 7.8 RBC 4.67 Hgb 12.8 L Hct 38.2 L MCV 81.8 MCH 27.4 MCHC 33.5 RDW 14.5 Plt Count 176 MPV 9.7 Absolute Nucleated RBC 0.000 Nucleated RBC % (auto) 0.0 Sodium 132 L Potassium 3.4 Chloride 93 L Carbon Dioxide 28 Anion Gap 14 BUN 15 Creatinine 0.68 Estim Creat Clear Calc 88.0 Estimated GFR > 60 POC Glucose 160 H Fasting Glucose 144 H Calcium 8.2 L Troponin I High Sens COVID-19 (JOSH) COVID-19 Clin Com 06/19/22 06/19/22 10:51 13:20 WBC RBC Hgb Hct MCV MCH MCHC RDW Plt Count MPV Absolute Nucleated RBC Nucleated RBC % (auto) Sodium Potassium Chloride Carbon Dioxide Anion Gap BUN Creatinine Estim Creat Clear Calc Estimated GFR POC Glucose 250 H Fasting Glucose Calcium Troponin I High Sens COVID-19 (JOSH) Negative COVID-19 Clin Com See Note EKG on admission shows normal sinus rhythm with bifascicular block. EKG is shows atrial fibrillation rapid ventricular response with bifascicular block with nonspecific ST T wave changes Assessment and Plan (1) Atrial fibrillation: Status: Acute New onset atrial fibrillation this elderly gentleman without any obvious symptoms. Rate is adequately controlled currently with increased dose of metoprolol. Continue the same. Continue rate control strategy for now. Rate control versus rhythm control be decided outpatient with his own cardiology office. Agree with oral anticoagulation therapy with Carleyqusharon given high risk for thromboembolic complication. This will need to be followed closely given his fall history. Proper gait training and fall prevention technique should be discussed and taught to the patient (2) CAD (coronary artery disease): Status: Acute Prior history of extensive CAD with no recent symptoms of angina. Continue aggressive medical therapy. Currently on metoprolol therapy. Blood pressure is well optimized. Listed as statin allergies in the past currently not on any statins. Continue full oral anticoagulation Eliquis. Avoid low-dose aspirin therapy to reduce bleeding risk as his CAD is stable and currently not in acute issues. At this point time will sign of the case. Thank you for allowing me to partake in his care Procedures Date of Service Date of Service: 06/19/22
--- NOTE | 2022-06-19 15:06 | MHC.CM.PN ---
EMR REVIEWED PT HAS BEEN ACCEPTED PENDING AUTH AT [facility]. [facility] CM CALLED AND WILL REQUIRE ANOTHER PT NOTE TO QUALIFY FOR A SKILLED STAY. CM WILL CONTINUE TO FOLLOW.
--- NOTE | 2022-06-19 15:31 | PC.NURSE ---
HR 110's-120's, at times up to 150's. Denies chest pain, sob. Scheduled cardiac meds given. HR 70's-80's. Afib on monitor.
[2022-06-19 15:36] VITALS: BP 143/70; PULSE 103; RESP 18; TEMP 37.4; O2SAT 94
[2022-06-19 16:01] LABS: Glucose, Whole Blood 244 mg/dL (60-115)
--- NOTE | 2022-06-19 17:33 | PC.NURSE ---
tachycardia afib aflutter heart rate up to 140's , with reposition heart rate increased to 160 for the brief moment, DR Henry was notified metoprolol dose and frequency changed
[2022-06-19] MEDS: Metoprolol Tartrate 25 MG TABLET 75 MG PO ×2 (17:43→23:28)
[2022-06-19 19:39] VITALS: BP 147/69; PULSE 78; RESP 17; TEMP 37.3; O2SAT 92
[2022-06-19 19:50] LABS: Glucose, Whole Blood 202 mg/dL (60-115)
[2022-06-19] MEDS: Insulin Glargine,Hum.rec.anlog 100 UNIT/ML 10 ML VIAL 22 UNIT SUBCUT (21:27)
[2022-06-20] VITALS: BP 183/86; PULSE 79; RESP 19; TEMP 37.2; O2SAT 93
[2022-06-20 04:00] VITALS: BP 174/81; PULSE 81; RESP 14; TEMP 37.2; O2SAT 93
[2022-06-20] MEDS: Metoprolol Tartrate 25 MG TABLET 75 MG PO ×4 (05:17→21:21)
[2022-06-20 05:51] LABS: Hematocrit 37.5 % (42.0-52.0); Hemoglobin 12.6 g/dl (14.0-18.0); Mean Corpuscular HGB Conc 33.6 g/dl (31.0-36.0); Mean Corpuscular Volume 80.5 fL (80.0-98.0); Mean Platelet Volume 8.9 fL (9.4-12.4); Platelet Count 191 X10*3/uL (160-400); Red Blood Count 4.66 X10*6/uL (4.60-5.80); Red Cell Distribution Width 14.2 % (11.0-16.0); White Blood Count 9.2 X10*3/uL (4.8-10.8)
[2022-06-20 06:13] LABS: Anion Gap 12 (12-20); Blood Urea Nitrogen 16 mg/dL (9-16); Calcium 7.9 mg/dL (8.4-10.2); Carbon Dioxide 26 mmol/L (22-29); Chloride 92 mmol/L (96-108); Estimated Glomerular Filt Rate > 60; Glucose Random 109 mg/dL (60-115); Potassium 2.9 mmol/L (3.3-5.1); Sodium 127 mmol/L (135-145)
[2022-06-20] MEDS: oxyCODONE HCl Immed Release 5 MG TABLET PO ×3 (07:37→21:20)
[2022-06-20 07:48] LABS: Glucose, Whole Blood 112 mg/dL (60-115)
[2022-06-20 07:54] VITALS: BP 164/84; PULSE 83; RESP 14; TEMP 37; O2SAT 93
[2022-06-20] MEDS: Lidocaine 4 % Patch ADH..PATCH 1 PATCH TRANSDERMA (09:26)
[2022-06-20] MEDS: Docusate Sodium 100 MG CAPSULE PO ×2 (09:27→21:20)
[2022-06-20] MEDS: Apixaban 5 MG TABLET PO ×2 (09:27→21:20)
[2022-06-20] MEDS: Cholecalciferol (Vitamin D3) 25 MCG TABLET 50 MCG PO (09:27)
[2022-06-20] MEDS: Potassium Chloride Packet 20 MEQ PACKET 40 MEQ PO (09:27)
[2022-06-20] MEDS: Losartan Potassium 25 MG TABLET PO (09:27)
[2022-06-20] MEDS: polyethylene glycoL 3350 17 GM POWD.PACK PO (09:27)
[2022-06-20] MEDS: hydrALAZINE HCl 25 MG TABLET PO ×2 (09:27→21:20)
[2022-06-20] MEDS: Potassium Chloride/H20 10 MEQ/100 ML PIGGYBACK 100 MEQ IV ×2 (09:30→10:28)
[2022-06-20] MEDS: 0.9 % Sodium Chloride Flush 3 ML SYRINGE IVFLUSH ×3 (09:31→23:16)
[2022-06-20] MEDS: 0.9 % Sodium Chloride 500 ML IV (09:31)
[2022-06-20 11:12] LABS: Glucose, Whole Blood 163 mg/dL (60-115)
[2022-06-20 11:35] VITALS: BP 168/79; PULSE 89; RESP 15; TEMP 37.4; O2SAT 94
[2022-06-20] MEDS: Insulin Lispro 100 UNIT/ML 3 ML VIAL SUBCUT ×3 (11:41→21:21)
[2022-06-20] MEDS: cefTRIAXone sodium 1 GM in 0.9 % Sodium Chloride 50 ML IV (11:47)
[2022-06-20 12:37] LABS: Anion Gap 12 (12-20); Blood Urea Nitrogen 17 mg/dL (9-16); Carbon Dioxide 26 mmol/L (22-29); Chloride 93 mmol/L (96-108); Estimated Glomerular Filt Rate > 60; Glucose Random 158 mg/dL (60-115); Potassium 4.1 mmol/L (3.3-5.1); Sodium 127 mmol/L (135-145)
[2022-06-20] MEDS: Azithromycin 500 MG TABLET PO (13:18)
--- NOTE | 2022-06-20 13:47 | MHC.CM.PN ---
EMR REVIEWED PER MD ROUNDS NOT MEDICALLY CLEARED FOR DC (NEW ONSET A FIB) LIAISON ([place]) FOR [facility] MADE AWARE, FOLLOWING FOR ADMISSION. WILL NEED A NEW PT NOTE WHEN READY FOR CENTER TO GO FOR AUTH.AGAIN.
--- NOTE | 2022-06-20 13:49 | P.PNIM_ITS ---
Subjective Subjective Date of Service: 06/20/22 Interval History: the patient was seen and evaluated this morning Laying in bed, feels comfortable Rate better controlled in 80s Developed hyponatremia of 127 Better controlled back pain but decreased ability to ambulate with physical the rapy No reported other overnight events. Systemic review: No fever, chills or weakness Denies any chest pain, palpitation No shortness of breath or coughing No abdominal pain, nausea or vomiting No urinary symptoms No reported rash Physical Exam Vital Signs: Vital Signs: Last Vital Signs Temp 99.3 F 06/20/22 11:35 Pulse 89 06/20/22 11:35 Resp 15 06/20/22 11:35 BP 168/79 H 06/20/22 11:35 Pulse Ox 94 06/20/22 11:35 O2 Del Method 06/20/22 11:35 O2 Flow Rate 1.0 06/19/22 07:49 BMI result Body Mass Index 26.6 Const: Other: Constitutional : Awake, interactive, not in distress Neck : Normal inspection, Supple Cardiovascular : Irregular irregular, no JVP, no lower extremity edema Respiratory : good bilateral air entry, no crackles, wheezes or rhonchi Gastrointestinal: soft, lax, Normal bowel sounds, Non tender Skin : Warm, Dry Neurological : Alert & oriented x3, No focal deficit Objective Data Active Medications Acetaminophen (Acetaminophen 325 Mg Tablet) 650 mg PO Q6H PRN PRN Reason: Pain, Mild (Pain Scale 1-3) Last Admin: 06/19/22 08:07 Dose: 650 mg Documented By: SUE Amlodipine Besylate (Amlodipine Besylate 5 Mg Tablet) 5 mg PO DAILY [facility]; Protocol Last Admin: 06/19/22 08:07 Dose: 5 mg Documented By: SUE Apixaban (Apixaban 5 Mg Tablet) 5 mg PO BID [facility] Last Admin: 06/20/22 09:27 Dose: 5 mg Documented By: TONNY Azithromycin (Azithromycin 500 Mg Tablet) 500 mg PO Q24H [facility] Last Admin: 06/20/22 13:18 Dose: 500 mg Documented By: TONNY Dextrose (Dextrose 50 % 25 Gm/50 Ml Syringe) 25 gm IVPUSH Q15M PRN; Protocol PRN Reason: per Hypoglycemia Standing Ord. Docusate Sodium (Docusate Sodium 100 Mg Capsule) 100 mg PO BID [facility] Last Admin: 06/20/22 09:27 Dose: 100 mg Documented By: TONNY Glucose (Glucose Gel 15 Gm Gel..Gram.) 15 gm PO Q15M PRN; Protocol PRN Reason: per Hypoglycemia Standing Ord. Hydralazine HCl (Hydralazine Hcl 25 Mg Tablet) 25 mg PO BID [facility]; Protocol Last Admin: 06/20/22 09:27 Dose: 25 mg Documented By: TONNY Ceftriaxone Sodium 1 gm/ (Sodium Chloride) 50 mls @ 100 mls/hr IV Q24H [facility] Last Infusion: 06/20/22 12:20 Dose: 0 mls/hr Documented By: TONNY Insulin Glargine (Insulin Glargine,Hum.Rec.Anlog 100 Unit/Ml 10 Ml Vial) 20 unit SUBCUT DAILY@0730 [facility] Last Admin: 06/19/22 21:23 Dose: 20 unit Documented By: CARRIE Insulin Glargine (Insulin Glargine,Hum.Rec.Anlog 100 Unit/Ml 10 Ml Vial) 22 unit SUBCUT BEDTIME [facility] Last Admin: 06/19/22 21:27 Dose: 22 unit Documented By: CARRIE Insulin Human Lispro (Insulin Lispro 100 Unit/Ml 3 Ml Vial) 0 unit SUBCUT QIDACHS [facility]; Protocol Last Admin: 06/20/22 11:41 Dose: 2 unit Documented By: TONNY Lidocaine (Lidocaine 4 % Patch Adh..Patch) 1 patch TRANSDERMA DAILY [facility]; Protocol Last Admin: 06/20/22 09:26 Dose: 1 patch Documented By: TONNY Losartan Potassium (Losartan Potassium 25 Mg Tablet) 25 mg PO DAILY [facility]; Protocol Last Admin: 06/20/22 09:27 Dose: 25 mg Documented By: TONNY Metoprolol Tartrate (Metoprolol Tartrate 25 Mg Tablet) 75 mg PO Q6H [facility]; Protocol Last Admin: 06/20/22 11:42 Dose: 75 mg Documented By: TONNY Patient Own Medication ( Rosuvastatin 10 Mg Tablet) 1 each PO DAILY [facility] Ondansetron HCl (Ondansetron Hcl 4 Mg/2 Ml Vial) 4 mg IVPUSH Q8H PRN PRN Reason: Nausea and Vomiting Oxycodone HCl (Oxycodone Hcl Immed Release 5 Mg Tablet) 5 mg PO Q6H PRN PRN Reason: severe pain Last Admin: 06/20/22 13:42 Dose: 5 mg Documented By: TONNY Pharmacy Consult (Consult Rx Perform Med Rec) 1 each MISCELLANE ONCE PRN PRN Reason: Consult order Polyethylene Glycol (Polyethylene Glycol 3350 17 Gm Powd.Pack) 17 gm PO DAILY PRN PRN Reason: constipation Polyethylene Glycol (Polyethylene Glycol 3350 17 Gm Powd.Pack) 17 gm PO DAILY [facility] Last Admin: 06/20/22 09:27 Dose: 17 gm Documented By: TONNY Sodium Chloride (0.9 % Sodium Chloride Flush 3 Ml Syringe) 3 ml IVFLUSH QSHIFT [facility] Last Admin: 06/20/22 09:31 Dose: 3 ml Documented By: TONNY Vitamin D (Cholecalciferol (Vitamin D3) 25 Mcg Tablet) 50 mcg PO DAILY [facility] Last Admin: 06/20/22 09:27 Dose: 50 mcg Documented By: TONNY Labs CBC & Chem 7: 06/20/22 05:37 06/20/22 11:52 Labs: Laboratory Results - last 24 hr 06/19/22 06/19/22 06/19/22 13:20 15:43 19:43 MCV MCH MCHC RDW Plt Count MPV Absolute Nucleated RBC Nucleated RBC % (auto) Anion Gap Estim Creat Clear Calc Estimated GFR POC Glucose 244 H 202 H Random Glucose Calcium COVID-19 ([facility]OS[facility]) Negative COVID-19 Clin Com See Note 06/20/22 06/20/22 06/20/22 05:37 05:37 07:17 MCV 80.5 MCH 27.0 MCHC 33.6 RDW 14.2 Plt Count 191 MPV 8.9 L Absolute Nucleated RBC 0.000 Nucleated RBC % (auto) 0.0 Anion Gap 12 Estim Creat Clear Calc 88.0 Estimated GFR > 60 POC Glucose 112 Random Glucose 109 Calcium 7.9 L COVID-19 ([facility]OS[facility]) COVID-19 Clin Com 06/20/22 06/20/22 11:01 11:52 MCV MCH MCHC RDW Plt Count MPV Absolute Nucleated RBC Nucleated RBC % (auto) Anion Gap 12 Estim Creat Clear Calc 82.0 Estimated GFR > 60 POC Glucose 163 H Random Glucose 158 H Calcium 8.0 L COVID-19 (JOSH) COVID-19 Clin Com Assessment and Plan (1) Atrial fibrillation: Status: Acute (2) CAD (coronary artery disease): Status: Acute (3) Acute respiratory failure with hypoxia: Status: Acute (4) Hyponatremia: Status: Acute Plan 74M with pmh Diabetes, hypertension, hyperlipidemia, chronic venous stasis dermatitis, presented the ED with mechanical fall, noted to have acute hypoxia. Acute hypoxic respiratory failure secondary to pneumonia Possible RLE cellulitis continue ceftriaxone and azithromycin continue to wean O2 as tolerated, now on 1L mechanical fall PT recommending STR MRI has low concern over possible NPH, can follow up outpatient with neuro awaiting bed offer and better pain control, continue oxycodone Acute hyponatremia Sodium of 127 Could be secondary to decreased p.o. intake IV fluid challenge Check urine studies Follow BMP New onset atrial fibrillation with RVR Rate better controlled Continue metoprolol 75 q.i.d. 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
[2022-06-20 16:00] VITALS: BP 145/72; PULSE 90; RESP 17; TEMP 37.1; O2SAT 95
[2022-06-20 16:29] LABS: Glucose, Whole Blood 162 mg/dL (60-115)
[2022-06-20] MEDS: Acetaminophen 325 MG TABLET 650 MG PO (16:45)
[2022-06-20 16:48] LABS: Creatinine Urine 119.33 mg/dL
[2022-06-20 19:47] VITALS: BP 145/70; PULSE 80; RESP 17; TEMP 36.6; O2SAT 95
[2022-06-20 20:47] LABS: Glucose, Whole Blood 165 mg/dL (60-115)
[2022-06-20] MEDS: Insulin Glargine,Hum.rec.anlog 100 UNIT/ML 10 ML VIAL 22 UNIT SUBCUT (21:21)
[2022-06-20 21:25] LABS: Anion Gap 17 (12-20); Blood Urea Nitrogen 19 mg/dL (9-16); Calcium 7.8 mg/dL (8.4-10.2); Carbon Dioxide 20 mmol/L (22-29); Chloride 92 mmol/L (96-108); Creatinine Clr Calc Pharmacy 84.3; Estimated Glomerular Filt Rate > 60; Glucose Random 136 mg/dL (60-115); Potassium 4.1 mmol/L (3.3-5.1); Sodium 125 mmol/L (135-145)
[2022-06-21] VITALS (8 sets, daily range): BP systolic 114–189; BP diastolic 61–93; PULSE 74–92; RESP 16–20; TEMP 36.2–37.3; O2SAT 92–95; BMI 26.6
[2022-06-21] MEDS: Metoprolol Tartrate 25 MG TABLET 75 MG PO ×4 (05:27→21:38)
[2022-06-21 07:17] LABS: Hematocrit 39.6 % (42.0-52.0); Hemoglobin 13.2 g/dl (14.0-18.0); Mean Corpuscular HGB Conc 33.3 g/dl (31.0-36.0); Mean Corpuscular Hemoglobin 27.4 pg (27.0-33.0); Mean Corpuscular Volume 82.3 fL (80.0-98.0); Mean Platelet Volume 10.6 fL (9.4-12.4); Platelet Count 176 X10*3/uL (160-400); Red Blood Count 4.81 X10*6/uL (4.60-5.80); Red Cell Distribution Width 14.6 % (11.0-16.0); White Blood Count 8.4 X10*3/uL (4.8-10.8)
[2022-06-21 07:34] LABS: Glucose, Whole Blood 95 mg/dL (60-115)
[2022-06-21 08:14] LABS: Anion Gap 15 (12-20); Blood Urea Nitrogen 20 mg/dL (9-16); Calcium 8.1 mg/dL (8.4-10.2); Carbon Dioxide 23 mmol/L (22-29); Chloride 94 mmol/L (96-108); Creatinine Clr Calc Pharmacy 86.8; Estimated Glomerular Filt Rate > 60; Glucose Random 91 mg/dL (60-115); Potassium 3.5 mmol/L (3.3-5.1); Sodium 128 mmol/L (135-145)
[2022-06-21] MEDS: 0.9 % Sodium Chloride 1,000 ML 125 ML IVCONT (08:36)
[2022-06-21] MEDS: Insulin Glargine,Hum.rec.anlog 100 UNIT/ML 10 ML VIAL 20 UNIT SUBCUT (08:36)
[2022-06-21] MEDS: polyethylene glycoL 3350 17 GM POWD.PACK PO (08:37)
[2022-06-21] MEDS: hydrALAZINE HCl 25 MG TABLET PO ×2 (08:37→21:36)
[2022-06-21] MEDS: Lidocaine 4 % Patch ADH..PATCH 1 PATCH TRANSDERMA (08:37)
[2022-06-21] MEDS: Apixaban 5 MG TABLET PO ×2 (08:37→21:36)
[2022-06-21] MEDS: Cholecalciferol (Vitamin D3) 25 MCG TABLET 50 MCG PO (08:37)
[2022-06-21] MEDS: Losartan Potassium 25 MG TABLET PO (08:38)
[2022-06-21] MEDS: Docusate Sodium 100 MG CAPSULE PO (08:38)
[2022-06-21] MEDS: amLODIPine Besylate 5 MG TABLET PO (08:38)
[2022-06-21] MEDS: 0.9 % Sodium Chloride Flush 3 ML SYRINGE IVFLUSH ×2 (08:38→21:35)
[2022-06-21] MEDS: oxyCODONE HCl Immed Release 5 MG TABLET PO (08:45)
--- NOTE | 2022-06-21 10:18 | MHC.CM.PN ---
CM INFORMED PT LIKELY TO BE READY TO DC TOMORROW UPDATES SENT TO [facility] THEY WERE ALSO ASKED TO SUBMIT FOR AUTH [facility] WILL BE CLOSED ON THE WEEKEND
[2022-06-21 11:21] LABS: Glucose, Whole Blood 147 mg/dL (60-115)
[2022-06-21] MEDS: Azithromycin 500 MG TABLET PO (11:54)
[2022-06-21] MEDS: cefTRIAXone sodium 1 GM in 0.9 % Sodium Chloride 50 ML IV (11:54)
--- NOTE | 2022-06-21 12:03 | MHC.SL.SWA ---
Addendum entered and electronically signed by Yudith Lange MA, CCC-[employer]AL [employer]URNER 06/21/22 13:43: D.S. Original Note: Speech Pathologist Impression:Dysphagia Risk of Aspiration Due to: Lethargy Medically Fragile History of Pneumonia Poor PO Intake Dysphasia Diet Status: Downgrade solids Liquid Consistency and Strategies for Safe Swallow: Liquid Intake Recommendation: Thin Liquid Intake Strategies: Small Sips Solid Food Consistency: Dietary Recommendations: Chopped/Advanced (NDD3) Additional Modifications to Solid Foods: Food to be moistened with sauce/gravy Oral Medication Intake: Whole or Crushed with Puree Please contact the pharmacy regarding appropriate crushable or liquid drug formulations that are available whenever modified delivery is recommended. Compensatory Strategies and Precautions to be Taken for Safe Swallow: Sitting Upright (90 deg) Liquids from Cup Liquids from Straw Liquids from Spoon Small Bites and Sips Alternate Liquids/Solids Oral Check Avoid Specific Foods Supervision While Eating and Drinking for Safe Swallow: Total Assistance (1:1) Foods to Avoid: Avoid hard, sticky, tough to chew foods Swallowing Recommended Treatments: Compens. Strategy Educat. Recommendation for Speech: Outpatient Speech Therapy Inpatient Speech Therapy Comment: Recommend DOWNGRADE to CHOPPED/ADVANCED solids (NDD3). Continue with thin liquids. Recommend pills whole or crushed in puree. Pt requires 1:1 assistance feeding and consistent cues to swallow. Alternate liquids and solids. Check oral cavity for residue in and around lower dentition. Signal Tower Director Clinican/Clinical Fellow: Yes: Ashli Antonio M.A., CF-[employer] Supervisory Statement: I have reviewed and agree with the student/clinical fellow's documentation: Speech Language Pathologist:
--- NOTE | 2022-06-21 14:46 | HO.PM.IMPN ---
Subjective Subjective Date of Service: 06/21/22 Interval History: the patient was seen and evaluated this morning Laying in bed, feels comfortable Sodium of 128 this morning Better controlled back pain but decreased ability to ambulate with physical therapy No reported other overnight events. Systemic review: No fever, chills or weakness Denies any chest pain, palpitation No shortness of breath or coughing No abdominal pain, nausea or vomiting No urinary symptoms No reported rash Physical Exam Vital Signs: Vital Signs: Last Vital Signs Temp 99.0 F 06/21/22 11:31 Pulse 92 06/21/22 13:57 Resp 16 06/21/22 11:31 BP 164/76 H 06/21/22 13:57 Pulse Ox 92 06/21/22 13:57 O2 Del Method 06/21/22 11:31 O2 Flow Rate 1.0 06/19/22 07:49 BMI result Body Mass Index 26.6 Const: Other: Constitutional : Awake, interactive, not in distress Neck : Normal inspection, Supple Cardiovascular : Irregular irregular, no JVP, no lower extremity edema Respiratory : good bilateral air entry, no crackles, wheezes or rhonchi Gastrointestinal: soft, lax, Normal bowel sounds, Non tender Skin : Warm, Dry Neurological : Alert & oriented x3, No focal deficit Objective Data Active Medications Acetaminophen (Acetaminophen 325 Mg Tablet) 650 mg PO Q6H PRN PRN Reason: Pain, Mild (Pain Scale 1-3) Last Admin: 06/20/22 16:45 Dose: 650 mg Documented By: TONNY Amlodipine Besylate (Amlodipine Besylate 5 Mg Tablet) 5 mg PO DAILY [facility]; Protocol Last Admin: 06/21/22 08:38 Dose: 5 mg Documented By: TONNY Apixaban (Apixaban 5 Mg Tablet) 5 mg PO BID [facility] Last Admin: 06/21/22 08:37 Dose: 5 mg Documented By: TONNY Azithromycin (Azithromycin 500 Mg Tablet) 500 mg PO Q24H [facility] Last Admin: 06/21/22 11:54 Dose: 500 mg Documented By: TONNY Dextrose (Dextrose 50 % 25 Gm/50 Ml Syringe) 25 gm IVPUSH Q15M PRN; Protocol PRN Reason: per Hypoglycemia Standing Ord. Docusate Sodium (Docusate Sodium 100 Mg Capsule) 100 mg PO BID [facility] Last Admin: 06/21/22 08:38 Dose: 100 mg Documented By: TONNY Glucose (Glucose Gel 15 Gm Gel..Gram.) 15 gm PO Q15M PRN; Protocol PRN Reason: per Hypoglycemia Standing Ord. Hydralazine HCl (Hydralazine Hcl 25 Mg Tablet) 25 mg PO BID [facility]; Protocol Last Admin: 06/21/22 08:37 Dose: 25 mg Documented By: TONNY Ceftriaxone Sodium 1 gm/ (Sodium Chloride) 50 mls @ 100 mls/hr IV Q24H [facility] Last Infusion: 06/21/22 13:10 Dose: 0 mls/hr Documented By: TONNY Sodium Chloride (Ns) 1,000 mls @ 125 mls/hr IVCONT .Q8H [facility] Stop: 06/21/22 22:00 Last Admin: 06/21/22 08:36 Dose: 125 mls/hr Documented By: TONNY Insulin Glargine (Insulin Glargine,Hum.Rec.Anlog 100 Unit/Ml 10 Ml Vial) 20 unit SUBCUT DAILY@0730 [facility] Last Admin: 06/21/22 08:36 Dose: 20 unit Documented By: TONNY Insulin Glargine (Insulin Glargine,Hum.Rec.Anlog 100 Unit/Ml 10 Ml Vial) 22 unit SUBCUT BEDTIME [facility] Last Admin: 06/20/22 21:21 Dose: 22 unit Documented By: BRITTANY Insulin Human Lispro (Insulin Lispro 100 Unit/Ml 3 Ml Vial) 0 unit SUBCUT QIDACHS [facility]; Protocol Last Admin: 06/21/22 11:47 Dose: Not Given Documented By: TONNY Non-Admin Reason: No Insulin Coverage Lidocaine (Lidocaine 4 % Patch Adh..Patch) 1 patch TRANSDERMA DAILY [facility]; Protocol Last Admin: 06/21/22 08:37 Dose: 1 patch Documented By: TONNY Losartan Potassium (Losartan Potassium 25 Mg Tablet) 25 mg PO DAILY [facility]; Protocol Last Admin: 06/21/22 08:38 Dose: 25 mg Documented By: TONNY Metoprolol Tartrate (Metoprolol Tartrate 25 Mg Tablet) 75 mg PO Q6H [facility]; Protocol Last Admin: 06/21/22 11:54 Dose: 75 mg Documented By: TONNY Patient Own Medication ( Rosuvastatin 10 Mg Tablet) 1 each PO DAILY [facility] Ondansetron HCl (Ondansetron Hcl 4 Mg/2 Ml Vial) 4 mg IVPUSH Q8H PRN PRN Reason: Nausea and Vomiting Oxycodone HCl (Oxycodone Hcl Immed Release 5 Mg Tablet) 5 mg PO Q6H PRN PRN Reason: severe pain Last Admin: 06/21/22 08:45 Dose: 5 mg Documented By: TONNY Pharmacy Consult (Consult Rx Perform Med Rec) 1 each MISCELLANE ONCE PRN PRN Reason: Consult order Polyethylene Glycol (Polyethylene Glycol 3350 17 Gm Powd.Pack) 17 gm PO DAILY PRN PRN Reason: constipation Polyethylene Glycol (Polyethylene Glycol 3350 17 Gm Powd.Pack) 17 gm PO DAILY [facility] Last Admin: 06/21/22 08:37 Dose: 17 gm Documented By: TONNY Sodium Chloride (0.9 % Sodium Chloride Flush 3 Ml Syringe) 3 ml IVFLUSH QSHIFT [facility] Last Admin: 06/21/22 08:38 Dose: 3 ml Documented By: TONNY Vitamin D (Cholecalciferol (Vitamin D3) 25 Mcg Tablet) 50 mcg PO DAILY [facility] Last Admin: 06/21/22 08:37 Dose: 50 mcg Documented By: TONNY Labs CBC & Chem 7: 06/21/22 06:49 06/21/22 06:49 Labs: Laboratory Results - last 24 hr 06/20/22 06/20/22 06/20/22 15:00 15:00 16:16 MCV MCH MCHC RDW Plt Count MPV Absolute Nucleated RBC Nucleated RBC % (auto) Anion Gap Estim Creat Clear Calc Estimated GFR POC Glucose 162 H Random Glucose Calcium Ur Random Sodium 78.0 Urine Creatinine 119.33 06/20/22 06/20/22 06/21/22 20:42 20:59 06:49 MCV 82.3 MCH 27.4 MCHC 33.3 RDW 14.6 Plt Count 176 MPV 10.6 Absolute Nucleated RBC 0.000 Nucleated RBC % (auto) 0.0 Anion Gap 17 Estim Creat Clear Calc 84.3 Estimated GFR > 60 POC Glucose 165 H Random Glucose 136 H D Calcium 7.8 L Ur Random Sodium Urine Creatinine 06/21/22 06/21/22 06/21/22 06:49 07:29 11:17 MCV MCH MCHC RDW Plt Count MPV Absolute Nucleated RBC Nucleated RBC % (auto) Anion Gap 15 Estim Creat Clear Calc 86.8 Estimated GFR > 60 POC Glucose 95 147 H Random Glucose 91 Calcium 8.1 L Ur Random Sodium Urine Creatinine Microbiology Microbiology Results: Microbiology 06/15/22 15:00 Blood Culture - Final Blood - Venous No growth after 5 days. 06/15/22 15:00 Blood Culture - Final Blood - Venous No growth after 5 days. Assessment and Plan (1) Hyponatremia: Status: Acute (2) Atrial fibrillation: Status: Acute (3) Acute respiratory failure with hypoxia: Status: Acute (4) Cellulitis of right lower extremity: Status: Acute Plan 74M with pmh Diabetes, hypertension, hyperlipidemia, chronic venous stasis dermatitis, presented the ED with mechanical fall, noted to have acute hypoxia. Acute hypoxic respiratory failure secondary to pneumonia Has RLE cellulitis , improving continue ceftriaxone and azithromycin continue to wean O2 as tolerated, now on 1L mechanical fall PT recommending STR MRI has low concern over possible NPH, can follow up outpatient with neuro awaiting bed offer and better pain control, continue oxycodone Acute hyponatremia Sodium of 128 Likely secondary to decreased p.o. intake Elevated urine sodium, less likely dehydration, could be central cause Hold fluids Follow BMP New onset atrial fibrillation with RVR Rate better controlled Continue metoprolol 75 q.i.d. 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
[2022-06-21 15:44] LABS: Anion Gap 16 (12-20); Blood Urea Nitrogen 20 mg/dL (9-16); Calcium 7.8 mg/dL (8.4-10.2); Carbon Dioxide 21 mmol/L (22-29); Chloride 93 mmol/L (96-108); Estimated Glomerular Filt Rate > 60; Glucose Random 156 mg/dL (60-115); Potassium 3.8 mmol/L (3.3-5.1); Sodium 126 mmol/L (135-145)
[2022-06-21 16:21] LABS: Glucose, Whole Blood 152 mg/dL (60-115)
[2022-06-21] MEDS: Insulin Lispro 100 UNIT/ML 3 ML VIAL SUBCUT ×2 (16:50→21:35)
[2022-06-21 20:09] LABS: Glucose, Whole Blood 240 mg/dL (60-115)
[2022-06-21] MEDS: Insulin Glargine,Hum.rec.anlog 100 UNIT/ML 10 ML VIAL 22 UNIT SUBCUT (21:36)
[2022-06-21 22:54] LABS: Osmolality Urine 829 mosm/kg (373-1093)
--- NOTE | 2022-06-21 22:59 | MHC.PIE ---
p; pt found with foul smelling slimy diarrhea. i; dr abad notified. new order cdiff test e; stool collected. will cont to monitor
[2022-06-21 23:13] LABS: CDiff Gene PCR NEGATIVE (Negative)
[2022-06-22 03:03] VITALS: RESP 14
[2022-06-22] MEDS: Acetaminophen 325 MG TABLET 650 MG PO ×2 (04:18→16:55)
[2022-06-22] MEDS: oxyCODONE HCl Immed Release 5 MG TABLET PO ×2 (04:19→16:55)
[2022-06-22] MEDS: Metoprolol Tartrate 25 MG TABLET 75 MG PO ×4 (04:19→23:27)
[2022-06-22 06:49] LABS: Hematocrit 34.7 % (42.0-52.0); Hemoglobin 11.8 g/dl (14.0-18.0); Mean Corpuscular Hemoglobin 27.4 pg (27.0-33.0); Mean Corpuscular Volume 80.5 fL (80.0-98.0); Mean Platelet Volume 9.4 fL (9.4-12.4); Platelet Count 230 X10*3/uL (160-400); Red Blood Count 4.31 X10*6/uL (4.60-5.80); Red Cell Distribution Width 14.3 % (11.0-16.0); White Blood Count 7.5 X10*3/uL (4.8-10.8)
[2022-06-22 06:57] LABS: Anion Gap 11 (12-20); Blood Urea Nitrogen 9 mg/dL (9-16); Calcium 8.6 mg/dL (8.4-10.2); Carbon Dioxide 25 mmol/L (22-29); Chloride 111 mmol/L (96-108); Creatinine Clr Calc Pharmacy 90.7; Estimated Glomerular Filt Rate > 60; Glucose Random 143 mg/dL (60-115); Potassium 3.9 mmol/L (3.3-5.1); Sodium 143 mmol/L (135-145)
[2022-06-22 07:27] LABS: Osmolality, Serum 272 mosm/kg (281-305)
[2022-06-22 07:41] LABS: Glucose, Whole Blood 131 mg/dL (60-115)
[2022-06-22 08:00] VITALS: BP 127/60; PULSE 60; RESP 16; TEMP 36.1; O2SAT 95
[2022-06-22] MEDS: Insulin Glargine,Hum.rec.anlog 100 UNIT/ML 10 ML VIAL 20 UNIT SUBCUT (08:35)
[2022-06-22] MEDS: 0.9 % Sodium Chloride Flush 3 ML SYRINGE IVFLUSH ×3 (08:36→19:59)
[2022-06-22] MEDS: amLODIPine Besylate 5 MG TABLET PO (08:36)
[2022-06-22] MEDS: Apixaban 5 MG TABLET PO ×2 (08:36→19:57)
[2022-06-22] MEDS: Cholecalciferol (Vitamin D3) 25 MCG TABLET 50 MCG PO (08:36)
[2022-06-22] MEDS: hydrALAZINE HCl 25 MG TABLET PO ×2 (08:36→19:57)
[2022-06-22] MEDS: Lidocaine 4 % Patch ADH..PATCH 1 PATCH TRANSDERMA (08:36)
[2022-06-22] MEDS: Losartan Potassium 25 MG TABLET PO (08:36)
[2022-06-22] MEDS: Docusate Sodium 100 MG CAPSULE PO ×2 (08:36→19:58)
[2022-06-22] MEDS: polyethylene glycoL 3350 17 GM POWD.PACK PO (08:36)
[2022-06-22 11:22] LABS: Glucose, Whole Blood 205 mg/dL (60-115)
[2022-06-22 12:00] VITALS: PULSE 82; RESP 16; TEMP 36.6
[2022-06-22] MEDS: Azithromycin 500 MG TABLET PO (12:33)
[2022-06-22] MEDS: Insulin Lispro 100 UNIT/ML 3 ML VIAL SUBCUT ×3 (12:33→19:58)
[2022-06-22] MEDS: cefTRIAXone sodium 1 GM in 0.9 % Sodium Chloride 50 ML IV (12:33)
--- NOTE | 2022-06-22 14:58 | P.PNIM_ITS ---
Subjective Subjective Date of Service: 06/22/22 Interval History: the patient was seen and evaluated this morning Laying in bed, feels better overall Sodium of 143 Better controlled back pain No reported other overnight events. Systemic review: No fever, chills or weakness Denies any chest pain, palpitation No shortness of breath or coughing No abdominal pain, nausea or vomiting No urinary symptoms No reported rash Physical Exam Vital Signs: Vital Signs: Last Vital Signs Temp 97.8 F 06/22/22 12:00 Pulse 82 06/22/22 12:00 Resp 16 06/22/22 12:00 BP 127/60 06/22/22 08:00 Pulse Ox 95 06/22/22 08:00 O2 Del Method 06/22/22 08:00 O2 Flow Rate 1.0 06/19/22 07:49 BMI result Body Mass Index 26.6 Const: Other: Constitutional : Awake, interactive, not in distress Neck : Normal inspection, Supple Cardiovascular : Irregular irregular, no JVP, no lower extremity edema Respiratory : good bilateral air entry, no crackles, wheezes or rhonchi Gastrointestinal: soft, lax, Normal bowel sounds, Non tender Skin : Warm, Dry Neurological : Alert & oriented x3, No focal deficit Objective Data Active Medications Acetaminophen (Acetaminophen 325 Mg Tablet) 650 mg PO Q6H PRN PRN Reason: Pain, Mild (Pain Scale 1-3) Last Admin: 06/22/22 04:18 Dose: 650 mg Documented By: PALAK Amlodipine Besylate (Amlodipine Besylate 5 Mg Tablet) 5 mg PO DAILY [facility]; Protocol Last Admin: 06/22/22 08:36 Dose: 5 mg Documented By: COTEMA Apixaban (Apixaban 5 Mg Tablet) 5 mg PO BID [facility] Last Admin: 06/22/22 08:36 Dose: 5 mg Documented By: ANA CRISTINA Azithromycin (Azithromycin 500 Mg Tablet) 500 mg PO Q24H [facility] Last Admin: 06/22/22 12:33 Dose: 500 mg Documented By: ANA CRISTINA Dextrose (Dextrose 50 % 25 Gm/50 Ml Syringe) 25 gm IVPUSH Q15M PRN; Protocol PRN Reason: per Hypoglycemia Standing Ord. Docusate Sodium (Docusate Sodium 100 Mg Capsule) 100 mg PO BID [facility] Last Admin: 06/22/22 08:36 Dose: 100 mg Documented By: ANA CRISTINA Glucose (Glucose Gel 15 Gm Gel..Gram.) 15 gm PO Q15M PRN; Protocol PRN Reason: per Hypoglycemia Standing Ord. Hydralazine HCl (Hydralazine Hcl 25 Mg Tablet) 25 mg PO BID [facility]; Protocol Last Admin: 06/22/22 08:36 Dose: 25 mg Documented By: ANA CRISTINA Ceftriaxone Sodium 1 gm/ (Sodium Chloride) 50 mls @ 100 mls/hr IV Q24H [facility] Last Infusion: 06/22/22 13:18 Dose: 0 mls/hr Documented By: ANA CRISTINA Insulin Glargine (Insulin Glargine,Hum.Rec.Anlog 100 Unit/Ml 10 Ml Vial) 20 unit SUBCUT DAILY@0730 [facility] Last Admin: 06/22/22 08:35 Dose: 20 unit Documented By: ANA CRISTINA Insulin Glargine (Insulin Glargine,Hum.Rec.Anlog 100 Unit/Ml 10 Ml Vial) 22 unit SUBCUT BEDTIME [facility] Last Admin: 06/21/22 21:36 Dose: 22 unit Documented By: PALAK Insulin Human Lispro (Insulin Lispro 100 Unit/Ml 3 Ml Vial) 0 unit SUBCUT QIDACHS [facility]; Protocol Last Admin: 06/22/22 12:33 Dose: 4 unit Documented By: ANA CRISTINA Lidocaine (Lidocaine 4 % Patch Adh..Patch) 1 patch TRANSDERMA DAILY [facility]; Protocol Last Admin: 06/22/22 08:36 Dose: 1 patch Documented By: ANA CRISTINA Losartan Potassium (Losartan Potassium 25 Mg Tablet) 25 mg PO DAILY [facility]; Protocol Last Admin: 06/22/22 08:36 Dose: 25 mg Documented By: ANA CRISTINA Metoprolol Tartrate (Metoprolol Tartrate 25 Mg Tablet) 75 mg PO Q6H [facility]; Protocol Last Admin: 06/22/22 12:33 Dose: 75 mg Documented By: ANA CRISTINA Patient Own Medication ( Rosuvastatin 10 Mg Tablet) 1 each PO DAILY [facility] Ondansetron HCl (Ondansetron Hcl 4 Mg/2 Ml Vial) 4 mg IVPUSH Q8H PRN PRN Reason: Nausea and Vomiting Oxycodone HCl (Oxycodone Hcl Immed Release 5 Mg Tablet) 5 mg PO Q6H PRN PRN Reason: severe pain Last Admin: 06/22/22 04:19 Dose: 5 mg Documented By: PALAK Pharmacy Consult (Consult Rx Perform Med Rec) 1 each MISCELLANE ONCE PRN PRN Reason: Consult order Polyethylene Glycol (Polyethylene Glycol 3350 17 Gm Powd.Pack) 17 gm PO DAILY PRN PRN Reason: constipation Polyethylene Glycol (Polyethylene Glycol 3350 17 Gm Powd.Pack) 17 gm PO DAILY [facility] Last Admin: 06/22/22 08:36 Dose: 17 gm Documented By: COTEMA Sodium Chloride (0.9 % Sodium Chloride Flush 3 Ml Syringe) 3 ml IVFLUSH QSHIFT [facility] Last Admin: 06/22/22 08:36 Dose: 3 ml Documented By: COTEMA Vitamin D (Cholecalciferol (Vitamin D3) 25 Mcg Tablet) 50 mcg PO DAILY [facility] Last Admin: 06/22/22 08:36 Dose: 50 mcg Documented By: ANA CRISTINA Labs CBC & Chem 7: 06/22/22 05:49 06/22/22 05:49 Labs: Laboratory Results - last 24 hr 06/21/22 06/21/22 06/21/22 15:25 16:17 20:05 MCV MCH MCHC RDW Plt Count MPV Absolute Nucleated RBC Nucleated RBC % (auto) Anion Gap 16 Estim Creat Clear Calc 88.0 Estimated GFR > 60 POC Glucose 152 H 240 H Random Glucose 156 H Osmolality Calcium 7.8 L Urine Osmolality C. difficile Tox B Gene 06/21/22 06/21/22 06/22/22 21:30 22:25 05:49 MCV 80.5 MCH 27.4 MCHC 34.0 RDW 14.3 Plt Count 230 D MPV 9.4 Absolute Nucleated RBC 0.000 Nucleated RBC % (auto) 0.0 Anion Gap Estim Creat Clear Calc Estimated GFR POC Glucose Random Glucose Osmolality Calcium Urine Osmolality 829 C. difficile Tox B Gene NEGATIVE 06/22/22 06/22/22 06/22/22 05:49 05:49 07:21 MCV MCH MCHC RDW Plt Count MPV Absolute Nucleated RBC Nucleated RBC % (auto) Anion Gap 11 L Estim Creat Clear Calc 90.7 Estimated GFR > 60 POC Glucose 131 H Random Glucose 143 H Osmolality 272 L Calcium 8.6 D Urine Osmolality C. difficile Tox B Gene 06/22/22 11:11 MCV MCH MCHC RDW Plt Count MPV Absolute Nucleated RBC Nucleated RBC % (auto) Anion Gap Estim Creat Clear Calc Estimated GFR POC Glucose 205 H Random Glucose Osmolality Calcium Urine Osmolality C. difficile Tox B Gene Assessment and Plan (1) Hyponatremia: Status: Acute (2) Atrial fibrillation: Status: Acute (3) Cellulitis of right lower extremity: Status: Acute Plan 74M with pmh Diabetes, hypertension, hyperlipidemia, chronic venous stasis dermatitis, presented the ED with mechanical fall, noted to have acute hypoxia. Acute hypoxic respiratory failure secondary to pneumonia Has RLE cellulitis , improving continue ceftriaxone and azithromycin continue to wean O2 as tolerated, now on 1L mechanical fall PT recommending STR MRI has low concern over possible NPH, can follow up outpatient with neuro awaiting bed offer and better pain control, continue oxycodone Acute hyponatremia Resolved, sodium 143 Elevated urine sodium, less likely dehydration, could be central cause Hold fluids, water restriction Follow BMP New onset atrial fibrillation with RVR Rate better controlled Continue metoprolol 75 q.i.d. 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
[2022-06-22 15:38] VITALS: BP 128/64; PULSE 84; RESP 18; TEMP 37.3; O2SAT 93
[2022-06-22 15:56] LABS: Glucose, Whole Blood 170 mg/dL (60-115)
[2022-06-22 19:12] VITALS: BP 117/59; PULSE 86; RESP 18; TEMP 37.1; O2SAT 93
[2022-06-22 19:44] LABS: Glucose, Whole Blood 159 mg/dL (60-115)
[2022-06-22] MEDS: Insulin Glargine,Hum.rec.anlog 100 UNIT/ML 10 ML VIAL 22 UNIT SUBCUT (19:58)
[2022-06-22 23:08] VITALS: BP 139/65; PULSE 81; RESP 18; TEMP 36.8; O2SAT 96
[2022-06-23 03:45] VITALS: BP 173/88; PULSE 85; RESP 15; TEMP 37.4; O2SAT 95
[2022-06-23] MEDS: oxyCODONE HCl Immed Release 5 MG TABLET PO ×3 (05:26→17:38)
[2022-06-23] MEDS: Metoprolol Tartrate 25 MG TABLET 75 MG PO ×4 (05:26→22:11)
[2022-06-23] MEDS: Acetaminophen 325 MG TABLET 650 MG PO ×3 (05:27→17:38)
[2022-06-23 06:58] VITALS: BP 128/65; PULSE 81; RESP 20; TEMP 36.6; O2SAT 95
[2022-06-23 07:22] LABS: Glucose, Whole Blood 84 mg/dL (60-115)
[2022-06-23] MEDS: Cholecalciferol (Vitamin D3) 25 MCG TABLET 50 MCG PO (08:00)
[2022-06-23] MEDS: amLODIPine Besylate 5 MG TABLET PO (08:01)
[2022-06-23] MEDS: hydrALAZINE HCl 25 MG TABLET PO ×2 (08:01→20:57)
[2022-06-23] MEDS: Docusate Sodium 100 MG CAPSULE PO ×2 (08:01→20:57)
[2022-06-23] MEDS: Losartan Potassium 25 MG TABLET PO (08:01)
[2022-06-23] MEDS: Insulin Glargine,Hum.rec.anlog 100 UNIT/ML 10 ML VIAL 20 UNIT SUBCUT (08:01)
[2022-06-23] MEDS: Apixaban 5 MG TABLET PO ×2 (08:01→20:57)
[2022-06-23] MEDS: Lidocaine 4 % Patch ADH..PATCH 1 PATCH TRANSDERMA (08:02)
[2022-06-23] MEDS: 0.9 % Sodium Chloride Flush 3 ML SYRINGE IVFLUSH ×3 (08:02→20:58)
[2022-06-23] MEDS: polyethylene glycoL 3350 17 GM POWD.PACK PO (08:02)
[2022-06-23 10:55] VITALS: BP 116/55; PULSE 81; RESP 20; TEMP 36.1; O2SAT 94
[2022-06-23 11:16] LABS: Glucose, Whole Blood 185 mg/dL (60-115)
[2022-06-23] MEDS: cefTRIAXone sodium 1 GM in 0.9 % Sodium Chloride 50 ML IV (11:25)
[2022-06-23] MEDS: Insulin Lispro 100 UNIT/ML 3 ML VIAL SUBCUT ×3 (11:25→20:57)
[2022-06-23] MEDS: Azithromycin 500 MG TABLET PO (11:25)
--- NOTE | 2022-06-23 12:50 | P.PNIM_ITS ---
Subjective Subjective Date of Service: 06/23/22 Interval History: the patient was seen and evaluated this morning Laying in bed, feels better overall Sodium of 143 Better controlled back pain No reported other overnight events. Systemic review: No fever, chills or weakness Denies any chest pain, palpitation No shortness of breath or coughing No abdominal pain, nausea or vomiting No urinary symptoms No reported rash Physical Exam Vital Signs: Vital Signs: Last Vital Signs Temp 97 F 06/23/22 10:55 Pulse 81 06/23/22 10:55 Resp 20 06/23/22 10:55 BP 116/55 L 06/23/22 10:55 Pulse Ox 94 06/23/22 10:55 O2 Del Method 06/23/22 10:55 O2 Flow Rate 1.0 06/19/22 07:49 BMI result Body Mass Index 26.6 Const: Other: Constitutional : Awake, interactive, not in distress Neck : Normal inspection, Supple Cardiovascular : Irregular irregular, no JVP, no lower extremity edema Respiratory : good bilateral air entry, no crackles, wheezes or rhonchi Gastrointestinal: soft, lax, Normal bowel sounds, Non tender Skin : Warm, Dry Neurological : Alert & oriented x3, No focal deficit Objective Data Active Medications Acetaminophen (Acetaminophen 325 Mg Tablet) 650 mg PO Q6H PRN PRN Reason: Pain, Mild (Pain Scale 1-3) Last Admin: 06/23/22 11:25 Dose: 650 mg Documented By: COTEMA Amlodipine Besylate (Amlodipine Besylate 5 Mg Tablet) 5 mg PO DAILY [facility]; Protocol Last Admin: 06/23/22 08:01 Dose: 5 mg Documented By: COTEMA Apixaban (Apixaban 5 Mg Tablet) 5 mg PO BID [facility] Last Admin: 06/23/22 08:01 Dose: 5 mg Documented By: COTEMA Azithromycin (Azithromycin 500 Mg Tablet) 500 mg PO Q24H [facility] Last Admin: 06/23/22 11:25 Dose: 500 mg Documented By: DALEEMA Dextrose (Dextrose 50 % 25 Gm/50 Ml Syringe) 25 gm IVPUSH Q15M PRN; Protocol PRN Reason: per Hypoglycemia Standing Ord. Docusate Sodium (Docusate Sodium 100 Mg Capsule) 100 mg PO BID [facility] Last Admin: 06/23/22 08:01 Dose: 100 mg Documented By: HO.COTEMA Glucose (Glucose Gel 15 Gm Gel..Gram.) 15 gm PO Q15M PRN; Protocol PRN Reason: per Hypoglycemia Standing Ord. Hydralazine HCl (Hydralazine Hcl 25 Mg Tablet) 25 mg PO BID [facility]; Protocol Last Admin: 06/23/22 08:01 Dose: 25 mg Documented By: ANA CRISTINA Ceftriaxone Sodium 1 gm/ (Sodium Chloride) 50 mls @ 100 mls/hr IV Q24H [facility] Last Infusion: 06/23/22 12:00 Dose: 0 mls/hr Documented By: ANA CRISTINA Insulin Glargine (Insulin Glargine,Hum.Rec.Anlog 100 Unit/Ml 10 Ml Vial) 20 unit SUBCUT DAILY@0730 [facility] Last Admin: 06/23/22 08:01 Dose: 20 unit Documented By: ANA CRISTINA Insulin Glargine (Insulin Glargine,Hum.Rec.Anlog 100 Unit/Ml 10 Ml Vial) 22 unit SUBCUT BEDTIME [facility] Last Admin: 06/22/22 19:58 Dose: 22 unit Documented By: PALAK Insulin Human Lispro (Insulin Lispro 100 Unit/Ml 3 Ml Vial) 0 unit SUBCUT QIDACHS [facility]PL[facility]ED [facility]; Protocol Last Admin: 06/23/22 11:25 Dose: 2 unit Documented By: ANA CRISTINA Lidocaine (Lidocaine 4 % Patch Adh..Patch) 1 patch TRANSDERMA DAILY [facility]; Protocol Last Admin: 06/23/22 08:02 Dose: 1 patch Documented By: ANA CRISTINA Losartan Potassium (Losartan Potassium 25 Mg Tablet) 25 mg PO DAILY [facility]; Protocol Last Admin: 06/23/22 08:01 Dose: 25 mg Documented By: ANA CRISTINA Metoprolol Tartrate (Metoprolol Tartrate 25 Mg Tablet) 75 mg PO Q6H [facility]; Protocol Last Admin: 06/23/22 11:25 Dose: 75 mg Documented By: ANA CRISTINA Patient Own Medication ( Rosuvastatin 10 Mg Tablet) 1 each PO DAILY [facility] Ondansetron HCl (Ondansetron Hcl 4 Mg/2 Ml Vial) 4 mg IVPUSH Q8H PRN PRN Reason: Nausea and Vomiting Oxycodone HCl (Oxycodone Hcl Immed Release 5 Mg Tablet) 5 mg PO Q6H PRN PRN Reason: severe pain Last Admin: 06/23/22 11:25 Dose: 5 mg Documented By: DALEEMA Pharmacy Consult (Consult Rx Perform Med Rec) 1 each MISCELLANE ONCE PRN PRN Reason: Consult order Polyethylene Glycol (Polyethylene Glycol 3350 17 Gm Powd.Pack) 17 gm PO DAILY PRN PRN Reason: constipation Polyethylene Glycol (Polyethylene Glycol 3350 17 Gm Powd.Pack) 17 gm PO DAILY [facility] Last Admin: 06/23/22 08:02 Dose: 17 gm Documented By: COTEMA Sodium Chloride (0.9 % Sodium Chloride Flush 3 Ml Syringe) 3 ml IVFLUSH QSHIFT REPLACED BY [facility] Last Admin: 06/23/22 08:02 Dose: 3 ml Documented By: COTEMA Vitamin D (Cholecalciferol (Vitamin D3) 25 Mcg Tablet) 50 mcg PO DAILY [facility] Last Admin: 06/23/22 08:00 Dose: 50 mcg Documented By: ANA CRISTINA Labs CBC & Chem 7: 06/22/22 05:49 06/22/22 05:49 Labs: Laboratory Results - last 24 hr 06/22/22 06/22/22 06/23/22 15:17 19:15 06:59 POC Glucose 170 H 159 H 84 06/23/22 10:55 POC Glucose 185 H Assessment and Plan (1) Hyponatremia: Status: Acute (2) Cellulitis of right lower extremity: Status: Acute (3) Acute respiratory failure with hypoxia: Status: Acute Plan 74M with pmh Diabetes, hypertension, hyperlipidemia, chronic venous stasis dermatitis, presented the ED with mechanical fall, noted to have acute hypoxia. Acute hypoxic respiratory failure secondary to pneumonia Has RLE cellulitis , improving continue ceftriaxone and azithromycin continue to wean O2 as tolerated, now on 1L mechanical fall PT recommending STR MRI has low concern over possible NPH, can follow up outpatient with neuro awaiting bed offer and better pain control, continue oxycodone Acute hyponatremia Resolved, sodium 143 Elevated urine sodium, less likely dehydration, could be central cause Hold fluids, water restriction Follow BMP New onset atrial fibrillation with RVR Rate better controlled Continue metoprolol 75 q.i.d. 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
[2022-06-23 16:00] VITALS: BP 124/80; PULSE 77; RESP 18; TEMP 36.7; O2SAT 98
[2022-06-23 16:24] LABS: Glucose, Whole Blood 184 mg/dL (60-115)
[2022-06-23 20:00] VITALS: BP 133/70; PULSE 80; RESP 17; TEMP 36.6; O2SAT 94
[2022-06-23 20:38] LABS: Glucose, Whole Blood 167 mg/dL (60-115)
[2022-06-23] MEDS: Insulin Glargine,Hum.rec.anlog 100 UNIT/ML 10 ML VIAL 22 UNIT SUBCUT (20:57)
[2022-06-23 23:29] VITALS: BP 119/63; PULSE 60; RESP 14; TEMP 36.1; O2SAT 95
[2022-06-24 03:26] VITALS: BP 176/85; PULSE 88; RESP 15; TEMP 36.2; O2SAT 96
[2022-06-24] MEDS: Metoprolol Tartrate 25 MG TABLET 75 MG PO ×4 (05:13→21:17)
[2022-06-24 07:19] VITALS: BP 134/68; PULSE 70; RESP 18; TEMP 36.4; O2SAT 95
[2022-06-24 07:33] LABS: Glucose, Whole Blood 121 mg/dL (60-115)
[2022-06-24] MEDS: 0.9 % Sodium Chloride Flush 3 ML SYRINGE IVFLUSH ×3 (07:57→21:18)
[2022-06-24] MEDS: Insulin Glargine,Hum.rec.anlog 100 UNIT/ML 10 ML VIAL 20 UNIT SUBCUT (07:57)
[2022-06-24] MEDS: amLODIPine Besylate 5 MG TABLET PO (07:58)
[2022-06-24] MEDS: Cholecalciferol (Vitamin D3) 25 MCG TABLET 50 MCG PO (07:58)
[2022-06-24] MEDS: Docusate Sodium 100 MG CAPSULE PO ×2 (07:58→21:17)
[2022-06-24] MEDS: Apixaban 5 MG TABLET PO ×2 (07:58→21:17)
[2022-06-24] MEDS: hydrALAZINE HCl 25 MG TABLET PO ×2 (07:58→21:17)
[2022-06-24] MEDS: Losartan Potassium 25 MG TABLET PO (07:58)
[2022-06-24] MEDS: Lidocaine 4 % Patch ADH..PATCH 1 PATCH TRANSDERMA (08:02)
[2022-06-24] MEDS: polyethylene glycoL 3350 17 GM POWD.PACK PO (08:03)
[2022-06-24] MEDS: cefTRIAXone sodium 1 GM in 0.9 % Sodium Chloride 50 ML IV (10:14)
[2022-06-24 11:24] LABS: Glucose, Whole Blood 168 mg/dL (60-115)
[2022-06-24] MEDS: Azithromycin 500 MG TABLET PO (11:40)
[2022-06-24] MEDS: Insulin Lispro 100 UNIT/ML 3 ML VIAL SUBCUT (11:41)
[2022-06-24 11:57] VITALS: BP 144/66; PULSE 83; RESP 18; TEMP 36.8; O2SAT 93
--- NOTE | 2022-06-24 12:06 | MHC.SL.SWA ---
Speech Pathologist Impression: Oropharyngeal dysphagia Risk of Aspiration Due to: Lethargy Medically Fragile History of Pneumonia Poor PO Intake Dysphasia Diet Status: No changes Liquid Consistency and Strategies for Safe Swallow: Liquid Intake Recommendation: Thin Liquid Intake Strategies: Small Sips Solid Food Consistency: Dietary Recommendations: Chopped/Advanced (NDD3) Additional Modifications to Solid Foods: Moisten foods with sauces and gravies Oral Medication Intake: Whole with Puree Please contact the pharmacy regarding appropriate crushable or liquid drug formulations that are available whenever modified delivery is recommended. Compensatory Strategies and Precautions to be Taken for Safe Swallow: Sitting Upright (90 deg) Small Bites and Sips Alternate Liquids/Solids Rate of Ingestion Change Oral Check Avoid Specific Foods Supervision While Eating and Drinking for Safe Swallow: Total Assistance (1:1) Foods to Avoid: Avoid hard, sticky, tough to chew foods Swallowing Recommended Treatments: Compens. Strategy Educat. Recommendation for Speech: Pt appears to be on safest, least restrictive diet textures. ST intervention no longer warranted at this level of care. Please re-refer with any further concern or changes. [employer] Attorney Clinican/Clinical Fellow: No Supervisory Statement: I have reviewed and agree with the student/clinical fellow's documentation: N/A Speech Language Pathologist: Yudith Lange M.A., CCC-MINCING MACHINE OPERATOR
--- NOTE | 2022-06-24 14:33 | HO.PM.IMPN ---
Subjective Subjective Date of Service: 06/24/22 Interval History: the patient was seen and evaluated this morning Laying in bed, feels better overall Sodium improved back to normal Better controlled back pain No reported other overnight events. Systemic review: No fever, chills or weakness Denies any chest pain, palpitation No shortness of breath or coughing No abdominal pain, nausea or vomiting No urinary symptoms No reported rash Physical Exam Vital Signs: Vital Signs: Last Vital Signs Temp 98.2 F 06/24/22 11:57 Pulse 83 06/24/22 11:57 Resp 18 06/24/22 11:57 BP 144/66 H 06/24/22 11:57 Pulse Ox 93 06/24/22 11:57 O2 Del Method 06/24/22 11:57 O2 Flow Rate 1.0 06/19/22 07:49 BMI result Body Mass Index 26.6 Const: Other: Constitutional : Awake, interactive, not in distress Neck : Normal inspection, Supple Cardiovascular : Irregular irregular, no JVP, no lower extremity edema Respiratory : good bilateral air entry, no crackles, wheezes or rhonchi Gastrointestinal: soft, lax, Normal bowel sounds, Non tender Skin : Warm, Dry Neurological : Alert & oriented x3, No focal deficit Objective Data Active Medications Acetaminophen (Acetaminophen 325 Mg Tablet) 650 mg PO Q6H PRN PRN Reason: Pain, Mild (Pain Scale 1-3) Last Admin: 06/23/22 17:38 Dose: 650 mg Documented By: COTEMA Amlodipine Besylate (Amlodipine Besylate 5 Mg Tablet) 5 mg PO DAILY [facility]; Protocol Last Admin: 06/24/22 07:58 Dose: 5 mg Documented By: DABShira Apixaban (Apixaban 5 Mg Tablet) 5 mg PO BID [facility] Last Admin: 06/24/22 07:58 Dose: 5 mg Documented By: ALYSHA Azithromycin (Azithromycin 500 Mg Tablet) 500 mg PO Q24H [facility] Last Admin: 06/24/22 11:40 Dose: 500 mg Documented By: ALYSHA Dextrose (Dextrose 50 % 25 Gm/50 Ml Syringe) 25 gm IVPUSH Q15M PRN; Protocol PRN Reason: per Hypoglycemia Standing Ord. Docusate Sodium (Docusate Sodium 100 Mg Capsule) 100 mg PO BID [facility] Last Admin: 06/24/22 07:58 Dose: 100 mg Documented By: ALYSHA Glucose (Glucose Gel 15 Gm Gel..Gram.) 15 gm PO Q15M PRN; Protocol PRN Reason: per Hypoglycemia Standing Ord. Hydralazine HCl (Hydralazine Hcl 25 Mg Tablet) 25 mg PO BID [facility]; Protocol Last Admin: 06/24/22 07:58 Dose: 25 mg Documented By: ALYSHA Ceftriaxone Sodium 1 gm/ (Sodium Chloride) 50 mls @ 100 mls/hr IV Q24H [facility] Last Infusion: 06/24/22 10:44 Dose: 0 mls/hr Documented By: ALYSHA Insulin Glargine (Insulin Glargine,Hum.Rec.Anlog 100 Unit/Ml 10 Ml Vial) 20 unit SUBCUT DAILY@0730 [facility] Last Admin: 06/24/22 07:57 Dose: 20 unit Documented By: ALYSHA Insulin Glargine (Insulin Glargine,Hum.Rec.Anlog 100 Unit/Ml 10 Ml Vial) 22 unit SUBCUT BEDTIME [facility] Last Admin: 06/23/22 20:57 Dose: 22 unit Documented By: PALAK Insulin Human Lispro (Insulin Lispro 100 Unit/Ml 3 Ml Vial) 0 unit SUBCUT QIDACHS [facility]; Protocol Last Admin: 06/24/22 11:41 Dose: 2 unit Documented By: ALYSHA Lidocaine (Lidocaine 4 % Patch Adh..Patch) 1 patch TRANSDERMA DAILY [facility]; Protocol Last Admin: 06/24/22 08:02 Dose: 1 patch Documented By: ALYSHA Losartan Potassium (Losartan Potassium 25 Mg Tablet) 25 mg PO DAILY [facility]; Protocol Last Admin: 06/24/22 07:58 Dose: 25 mg Documented By: ALYSHA Metoprolol Tartrate (Metoprolol Tartrate 25 Mg Tablet) 75 mg PO Q6H [facility]; Protocol Last Admin: 06/24/22 11:40 Dose: 75 mg Documented By: ALYSHA Patient Own Medication ( Rosuvastatin 10 Mg Tablet) 1 each PO DAILY [facility] Ondansetron HCl (Ondansetron Hcl 4 Mg/2 Ml Vial) 4 mg IVPUSH Q8H PRN PRN Reason: Nausea and Vomiting Oxycodone HCl (Oxycodone Hcl Immed Release 5 Mg Tablet) 5 mg PO Q6H PRN PRN Reason: severe pain Last Admin: 06/23/22 17:38 Dose: 5 mg Documented By: COTEMA Pharmacy Consult (Consult Rx Perform Med Rec) 1 each MISCELLANE ONCE PRN PRN Reason: Consult order Polyethylene Glycol (Polyethylene Glycol 3350 17 Gm Powd.Pack) 17 gm PO DAILY PRN PRN Reason: constipation Polyethylene Glycol (Polyethylene Glycol 3350 17 Gm Powd.Pack) 17 gm PO DAILY [facility] Last Admin: 06/24/22 08:03 Dose: 17 gm Documented By: ALYSHA Sodium Chloride (0.9 % Sodium Chloride Flush 3 Ml Syringe) 3 ml IVFLUSH QSHIFT [facility] Last Admin: 06/24/22 07:57 Dose: 3 ml Documented By: ALYSHA Vitamin D (Cholecalciferol (Vitamin D3) 25 Mcg Tablet) 50 mcg PO DAILY [facility] Last Admin: 06/24/22 07:58 Dose: 50 mcg Documented By: ALYSHA Labs CBC & Chem 7: 06/22/22 05:49 06/22/22 05:49 Labs: Laboratory Results - last 24 hr 06/23/22 06/23/22 06/24/22 15:43 20:33 07:23 POC Glucose 184 H 167 H 121 H 06/24/22 11:08 POC Glucose 168 H Assessment and Plan (1) Hyponatremia: Status: Acute (2) Physical deconditioning: Status: Acute Plan 74M with pmh Diabetes, hypertension, hyperlipidemia, chronic venous stasis dermatitis, presented the ED with mechanical fall, noted to have acute hypoxia. Acute hypoxic respiratory failure secondary to pneumonia Has RLE cellulitis , improving continue ceftriaxone and azithromycin continue to wean O2 as tolerated, now on RA mechanical fall PT finding difficulties ambulating him MRI has low concern over possible NPH, to get neurology eval awaiting bed offer and better pain control, continue oxycodone Acute hyponatremia Resolved, sodium 143 Elevated urine sodium, less likely dehydration, could be central cause Hold fluids, water restriction Follow BMP New onset atrial fibrillation with RVR Rate better controlled Continue metoprolol 75 q.i.d. 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
[2022-06-24 16:06] VITALS: BP 153/72; PULSE 82; RESP 20; TEMP 37.1; O2SAT 95
[2022-06-24 16:17] LABS: Glucose, Whole Blood 131 mg/dL (60-115)
[2022-06-24 19:55] VITALS: BP 154/76; PULSE 83; RESP 16; TEMP 36.9; O2SAT 97
[2022-06-24 20:18] LABS: Glucose, Whole Blood 145 mg/dL (60-115)
[2022-06-24] MEDS: Insulin Glargine,Hum.rec.anlog 100 UNIT/ML 10 ML VIAL 22 UNIT SUBCUT (21:18)
[2022-06-25] VITALS: BP 148/82; PULSE 62; RESP 17; TEMP 36.2; O2SAT 99
[2022-06-25 04:00] VITALS: BP 145/72; PULSE 85; RESP 17; TEMP 36.4; O2SAT 97
[2022-06-25] MEDS: Metoprolol Tartrate 25 MG TABLET 75 MG PO (04:29)
[2022-06-25 07:21] LABS: Anion Gap 15 (12-20); Blood Urea Nitrogen 15 mg/dL (9-16); Calcium 8.1 mg/dL (8.4-10.2); Carbon Dioxide 25 mmol/L (22-29); Chloride 92 mmol/L (96-108); Creatinine Clr Calc Pharmacy 103.2; Estimated Glomerular Filt Rate > 60; Glucose Random 72 mg/dL (60-115); Potassium 3.6 mmol/L (3.3-5.1); Sodium 128 mmol/L (135-145)
[2022-06-25 07:29] VITALS: BP 154/71; PULSE 73; RESP 18; TEMP 36.6; O2SAT 95
[2022-06-25 08:08] LABS: Glucose, Whole Blood 80 mg/dL (60-115)
[2022-06-25] MEDS: Apixaban 5 MG TABLET PO ×2 (08:10→21:07)
[2022-06-25] MEDS: hydrALAZINE HCl 25 MG TABLET PO ×2 (08:10→21:06)
[2022-06-25] MEDS: amLODIPine Besylate 5 MG TABLET PO (08:10)
[2022-06-25] MEDS: Losartan Potassium 25 MG TABLET PO (08:10)
[2022-06-25] MEDS: Cholecalciferol (Vitamin D3) 25 MCG TABLET 50 MCG PO (08:10)
[2022-06-25] MEDS: Docusate Sodium 100 MG CAPSULE PO (08:10)
[2022-06-25] MEDS: Lidocaine 4 % Patch ADH..PATCH 1 PATCH TRANSDERMA (08:11)
[2022-06-25] MEDS: Insulin Glargine,Hum.rec.anlog 100 UNIT/ML 10 ML VIAL 20 UNIT SUBCUT (08:11)
[2022-06-25] MEDS: polyethylene glycoL 3350 17 GM POWD.PACK PO (08:11)
[2022-06-25] MEDS: 0.9 % Sodium Chloride Flush 3 ML SYRINGE IVFLUSH ×3 (08:12→20:34)
[2022-06-25 08:56] LABS: Osmolality, Serum 263 mosm/kg (281-305)
--- NOTE | 2022-06-25 09:35 | P.CNNE_ITS ---
History of Present Illness Data of Consult Service Date: 06/25/22 Primary Care Provider: Aubrey Fitzpatrick MD [facility] Reason for consult: 2 falls, ? NPH This is a 81 year old male with history of insulin dependent type 2 diabetes, hypertension, hyperlipidemia, cervical fusion, chronic venous stasis dermatitis, who presented to the ER on 06/13/22 after a mechanical fall 3 days ago after tripping while shopping without head injury or LOC. Did not seek medical attn. The next day while at the grocery store states he felt dizzy and fell again without head injury or LOC. Fell directly onto his back and came to the ED for evaluation.? On arrival, patient found to be hypoxic with oximetry ranging 87- 89% patient was placed on 2 L supplemental O2 via nasal cannula, he is not oxygen dependent at home.? Vitals otherwise stable.? Orthostatics negative.? There is no evidence of trauma on chest or abdominal/pelvis CT.? No acute fracture or dislocation of the cervical spine.? Head CT negative for acute intracranial abnormality. MRI of the brain showed no acute findings, but showed atrophy and mild ventriculomegaly without transependymal CSF absorption. Frontal horns were not particularly prominent, and moderate left-sided mastoid effusion.? Clinically, patient presentation not consistent with NPH.? As result of the dizziness, was not able to participate in PT.? Also remained hypoxic down to 85% on room air this morning and admission being recommended as a result. Review of Systems Review of Systems: General: No fevers, malaise, unintentional weight loss HEENT: No blurred vision, diplopia. No sore throat, nasal congestion, rhinorrhea, sinus pain, ear pain Cardiovascular: No chest pain, palpitations, or leg edema Respiratory: +shortness of breath. No wheezing, cough GI: No abdominal pain, nausea, vomiting, diarrhea, constipation, melena, hematochezia : No dysuria, hematuria, increased urinary frequency, decreased urinary output MSK: +myalgia, +neck pain, +low back pain Neuro: +dizziness. No headaches, weakness, paresthesias Skin: No rashes or lesions Yes all other systems are reviewed and are negative Cardiovascular: Cardiovascular: Reports no additional cardiovascular complaints Respiratory: Respiratory: Reports no additional respiratory complaints PMFSH Past Medical History Medical History CAD (coronary artery disease) Diabetes mellitus with coincident hypertension Hyperlipidemia Hypertension Family History Family History Mother Stroke Cancer Father No problems noted. Surgical History Surgical History H/O heart surgery Social History Social History Household Members: None Housing: House Do you presently have visiting nurse or other home services: No Alcohol intake: never Patient Tobacco Use Status: Never used Tobacco Tobacco use type: Cigarette Smoked in Last 30 Days: No e-Cigarette/Vaping Use: Never Used Second Hand Smoke Exposure: No Use of substances other than those prescribed or required for medical reasons: No Currently Displaying Signs/Symptoms of Drug Intoxication Withdrawal: No Have you been hit, kicked, punched, or otherwise hurt by someone within the past year? If so, by whom?: No Do you feel safe in your current relationship?: No Current Relationship Is there a partner from a previous relationship who is making you feel unsafe now?: No Are you made to feel afraid or neglected: No Advance Directives: No Advance Directives Information Provided: No Do you have thoughts of harming others: None Do you have a plan to hurt others: No Plan Recently lost weight without trying: No How much weight loss: Not applicable Eating poorly because of decreased appetite: No Nutrition screen score: 0 Poor oral hygiene: Yes (multiple missing teeth, dentures) service: No Current occupational status: retired Cognitive needs: Yes (walker) Hearing needs: No Vision needs: Yes (glasses) Meds Allergies Allergy/AdvReac Type Severity Reaction Status Date / Time Bhdyoji-VBF-CeC Reductase Allergy Mild Burning Verified 06/17/22 07:48 Inhibitor sensation [Syjeucf-Nio-Coa Reductase Inhibitor] Active Medications: Current Medications Acetaminophen (Acetaminophen 325 Mg Tablet) 650 mg PO Q6H PRN PRN Reason: Pain, Mild (Pain Scale 1-3) Last Admin: 06/23/22 17:38 Dose: 650 mg Amlodipine Besylate (Amlodipine Besylate 5 Mg Tablet) 5 mg PO DAILY [facility]; Protocol Last Admin: 06/25/22 08:10 Dose: 5 mg Apixaban (Apixaban 5 Mg Tablet) 5 mg PO BID [facility] Last Admin: 06/25/22 08:10 Dose: 5 mg Azithromycin (Azithromycin 500 Mg Tablet) 500 mg PO Q24H [facility] Last Admin: 06/24/22 11:40 Dose: 500 mg Dextrose (Dextrose 50 % 25 Gm/50 Ml Syringe) 25 gm IVPUSH Q15M PRN; Protocol PRN Reason: per Hypoglycemia Standing Ord. Docusate Sodium (Docusate Sodium 100 Mg Capsule) 100 mg PO BID [facility] Last Admin: 06/25/22 08:10 Dose: 100 mg Glucose (Glucose Gel 15 Gm Gel..Gram.) 15 gm PO Q15M PRN; Protocol PRN Reason: per Hypoglycemia Standing Ord. Hydralazine HCl (Hydralazine Hcl 25 Mg Tablet) 25 mg PO BID [facility]; Protocol Last Admin: 06/25/22 08:10 Dose: 25 mg Ceftriaxone Sodium 1 gm/ (Sodium Chloride) 50 mls @ 100 mls/hr IV Q24H [facility] Last Infusion: 06/24/22 10:44 Dose: Infused Insulin Glargine (Insulin Glargine,Hum.Rec.Anlog 100 Unit/Ml 10 Ml Vial) 20 unit SUBCUT DAILY@0730 [facility] Last Admin: 06/25/22 08:11 Dose: 20 unit Insulin Glargine (Insulin Glargine,Hum.Rec.Anlog 100 Unit/Ml 10 Ml Vial) 22 unit SUBCUT BEDTIME [facility] Last Admin: 06/24/22 21:18 Dose: 22 unit Insulin Human Lispro (Insulin Lispro 100 Unit/Ml 3 Ml Vial) 0 unit SUBCUT QIDACHS [facility]; Protocol Last Admin: 06/25/22 08:05 Dose: Not Given Lidocaine (Lidocaine 4 % Patch Adh..Patch) 1 patch TRANSDERMA DAILY [facility]; Protocol Last Admin: 06/25/22 08:11 Dose: 1 patch Losartan Potassium (Losartan Potassium 25 Mg Tablet) 25 mg PO DAILY [facility]; Protocol Last Admin: 06/25/22 08:10 Dose: 25 mg Metoprolol Tartrate (Metoprolol Tartrate 25 Mg Tablet) 75 mg PO Q6H [facility]; Protocol Last Admin: 06/25/22 04:29 Dose: 75 mg Patient Own Medication ( Rosuvastatin 10 Mg Tablet) 1 each PO DAILY [facility] Ondansetron HCl (Ondansetron Hcl 4 Mg/2 Ml Vial) 4 mg IVPUSH Q8H PRN PRN Reason: Nausea and Vomiting Pharmacy Consult (Consult Rx Perform Med Rec) 1 each MISCELLANE ONCE PRN PRN Reason: Consult order Polyethylene Glycol (Polyethylene Glycol 3350 17 Gm Powd.Pack) 17 gm PO DAILY PRN PRN Reason: constipation Polyethylene Glycol (Polyethylene Glycol 3350 17 Gm Powd.Pack) 17 gm PO DAILY [facility] Last Admin: 06/25/22 08:11 Dose: 17 gm Sodium Chloride (0.9 % Sodium Chloride Flush 3 Ml Syringe) 3 ml IVFLUSH QSHIFT [facility] Last Admin: 06/25/22 08:12 Dose: 3 ml Vitamin D (Cholecalciferol (Vitamin D3) 25 Mcg Tablet) 50 mcg PO DAILY [facility] Last Admin: 06/25/22 08:10 Dose: 50 mcg Home Medications Medication Instructions Recorded Confirmed Last Taken Type insulin human U-100 NPH-regulr 40 unit subcut DAILY@1300 06/14/22 06/14/22 Unknown History 70-30 mix 100 unit/mL subcutaneous susp insulin human U-100 NPH-regulr 60 unit subcut DAILY 06/14/22 06/14/22 Unknown History 70-30 mix 100 unit/mL subcutaneous susp Physical Exam Vital Signs: Vital Signs: Last Vital Signs Temp 97.9 F 06/25/22 07:29 Pulse 73 06/25/22 07:29 Resp 18 06/25/22 07:29 BP 154/71 H 06/25/22 07:29 Pulse Ox 95 06/25/22 07:29 O2 Del Method 06/25/22 07:29 O2 Flow Rate 1.0 06/19/22 07:49 BMI result Body Mass Index 26.6 Const: Other: Constitutional : Awake, interactive, not in distress Neck : Normal inspection, Supple Cardiovascular : Irregular irregular, no JVP, no lower extremity edema Respiratory : good bilateral air entry, no crackles, wheezes or rhonchi Gastrointestinal: soft, lax, Normal bowel sounds, Non tender Skin : Warm, Dry Neurological : Alert & oriented x3, No focal deficit General: cooperative, comfortable, no acute distress, alert and awake Nutritional Appearance: average body habitus Orientation/consciousness: oriented to person HEENT: Head: Yes normocephalic and Yes atraumatic Neck: Neck: Yes trachea midline, Yes supple and Yes no JVD Chest: Chest palpation & inspection: other (Well-healed sternotomy scar) Resp: Effort & Inspection: decreased respiratory effort Auscultation: no rales, no rhonchi and diminished lung sounds Cardio: Jugular venous distension: no JVD Rate: tachycardic Rhythm: abnormal rhythm irregularly irregular Heart sounds: S1 normal heart sound present, S2 normal heart sound present, no click, no gallops and no murmurs GI: Auscultation: normal bowel sounds Skin: General skin exam: no rashes or lesions noted and ecchymosis Neuro: Other: He is leethargic but arousable and screams every time he is touched or cold. He would occasionally follow one step commands. There is no facial asymmetry. Visual raphael could not be adequately tested because of poor cooperation. He can move all 4 extremities against gravity. Reflex are absent plantar response are flexor. The patient was and not in a condition where his gait could be checked. There is some nuchal rigidity. General: oriented to person and no focal motor deficits Extrem: General: Yes no clubbing, cyanosis or edema and Yes venous stasis dermatitis Results Labs CBC & Chem 7: 06/22/22 05:49 06/25/22 14:28 Labs: BMP 06/25/22 06:05 Sodium 128 L Potassium 3.6 Chloride 92 L Carbon Dioxide 25 BUN 15 Creatinine 0.58 Calcium 8.1 L Microbiology Microbiology Results: Microbiology 06/15/22 15:00 Blood - Venous Blood Culture - Final No growth after 5 days. 06/15/22 15:00 Blood - Venous Blood Culture - Final No growth after 5 days. Assessment and Plan (1) Hyponatremia: Status: Acute (2) Physical deconditioning: Status: Acute (3) Atrial fibrillation: Status: Acute (4) Cellulitis of right lower extremity: Status: Acute (5) Encephalopathy: Status: Acute He very he has baseline dementia that has decompensated or he has developed a metabbolic encephalopathy related to hyponatremia and his any infectious etiology such as his large bedsore. I reviewed his MRI and feel no need to do any further workup for his mild ventriculomegaly. Clinically he does not fit with a normal pressure hydrocephalus. Plan 74M with pmh Diabetes, hypertension, hyperlipidemia, chronic venous stasis dermatitis, presented the ED with mechanical fall, noted to have acute hypoxia. Acute hypoxic respiratory failure secondary to pneumonia Has RLE cellulitis , improving continue ceftriaxone and azithromycin continue to wean O2 as tolerated, now on RA mechanical fall PT finding difficulties ambulating him MRI has low concern over possible NPH, to get neurology eval awaiting bed offer and better pain control, continue oxycodone Acute hyponatremia Resolved, sodium 143 Elevated urine sodium, less likely dehydration, could be central cause Hold fluids, water restriction Follow BMP New onset atrial fibrillation with RVR Rate better controlled Continue metoprolol 75 q.i.d. 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
[2022-06-25 09:56] LABS: Osmolality Urine 636 mosm/kg (373-1093)
--- NOTE | 2022-06-25 10:20 | HO.PM.IMPN ---
Subjective Subjective Date of Service: 06/25/22 Interval History: the patient was seen and evaluated this morning Laying in bed, more alert and interactive Sodium dropped down to 128 still having back pain and stiffeness No reported other overnight events. Systemic review: No fever, chills or weakness Denies any chest pain, palpitation No shortness of breath or coughing No abdominal pain, nausea or vomiting No urinary symptoms No reported rash Physical Exam Vital Signs: Vital Signs: Last Vital Signs Temp 97.9 F 06/25/22 07:29 Pulse 73 06/25/22 07:29 Resp 18 06/25/22 07:29 BP 154/71 H 06/25/22 07:29 Pulse Ox 95 06/25/22 07:29 O2 Del Method 06/25/22 07:29 O2 Flow Rate 1.0 06/19/22 07:49 BMI result Body Mass Index 26.6 Const: Other: Constitutional : Awake, interactive, not in distress Neck : Normal inspection, Supple Cardiovascular : Irregular irregular, no JVP, no lower extremity edema Respiratory : good bilateral air entry, no crackles, wheezes or rhonchi Gastrointestinal: soft, lax, Normal bowel sounds, Non tender Skin : Warm, Dry Neurological : Alert & oriented to self and place, No focal deficit Objective Data Active Medications Acetaminophen (Acetaminophen 325 Mg Tablet) 650 mg PO Q6H PRN PRN Reason: Pain, Mild (Pain Scale 1-3) Last Admin: 06/23/22 17:38 Dose: 650 mg Documented By: COTEMA Amlodipine Besylate (Amlodipine Besylate 5 Mg Tablet) 5 mg PO DAILY [facility], [facility]; Protocol Last Admin: 06/25/22 08:10 Dose: 5 mg Documented By: DABShira Apixaban (Apixaban 5 Mg Tablet) 5 mg PO BID [facility] Last Admin: 06/25/22 08:10 Dose: 5 mg Documented By: ALYSHA Dextrose (Dextrose 50 % 25 Gm/50 Ml Syringe) 25 gm IVPUSH Q15M PRN; Protocol PRN Reason: per Hypoglycemia Standing Ord. Docusate Sodium (Docusate Sodium 100 Mg Capsule) 100 mg PO BID [facility] Last Admin: 06/25/22 08:10 Dose: 100 mg Documented By: ALYSHA Glucose (Glucose Gel 15 Gm Gel..Gram.) 15 gm PO Q15M PRN; Protocol PRN Reason: per Hypoglycemia Standing Ord. Hydralazine HCl (Hydralazine Hcl 25 Mg Tablet) 25 mg PO BID [facility], [facility]; Protocol Last Admin: 06/25/22 08:10 Dose: 25 mg Documented By: ALYSHA Insulin Glargine (Insulin Glargine,Hum.Rec.Anlog 100 Unit/Ml 10 Ml Vial) 20 unit SUBCUT DAILY@0730 [facility], [facility]1983 Last Admin: 06/25/22 08:11 Dose: 20 unit Documented By: ALYSHA Insulin Glargine (Insulin Glargine,Hum.Rec.Anlog 100 Unit/Ml 10 Ml Vial) 22 unit SUBCUT BEDTIME [facility]1983 Last Admin: 06/24/22 21:18 Dose: 22 unit Documented By: GIULIANO Insulin Human Lispro (Insulin Lispro 100 Unit/Ml 3 Ml Vial) 0 unit SUBCUT QIDACHS [facility], [facility]; Protocol Last Admin: 06/25/22 08:05 Dose: Not Given Documented By: ALYSHA Non-Admin Reason: No Insulin Coverage Lidocaine (Lidocaine 4 % Patch Adh..Patch) 1 patch TRANSDERMA DAILY [facility], [facility]; Protocol Last Admin: 06/25/22 08:11 Dose: 1 patch Documented By: ALYSHA Losartan Potassium (Losartan Potassium 25 Mg Tablet) 25 mg PO DAILY [facility]; Protocol Last Admin: 06/25/22 08:10 Dose: 25 mg Documented By: ALYSHA Metoprolol Tartrate (Metoprolol Tartrate 25 Mg Tablet) 75 mg PO Q6H [facility]; Protocol Last Admin: 06/25/22 04:29 Dose: 75 mg Documented By: GIULIANO Patient Own Medication ( Rosuvastatin 10 Mg Tablet) 1 each PO DAILY [facility]1983 Ondansetron HCl (Ondansetron Hcl 4 Mg/2 Ml Vial) 4 mg IVPUSH Q8H PRN PRN Reason: Nausea and Vomiting Pharmacy Consult (Consult Rx Perform Med Rec) 1 each MISCELLANE ONCE PRN PRN Reason: Consult order Polyethylene Glycol (Polyethylene Glycol 3350 17 Gm Powd.Pack) 17 gm PO DAILY PRN PRN Reason: constipation Polyethylene Glycol (Polyethylene Glycol 3350 17 Gm Powd.Pack) 17 gm PO DAILY [facility] Last Admin: 06/25/22 08:11 Dose: 17 gm Documented By: ALYSHA Sodium Chloride (0.9 % Sodium Chloride Flush 3 Ml Syringe) 3 ml IVFLUSH QSHIFT [facility] Last Admin: 06/25/22 08:12 Dose: 3 ml Documented By: ALYSHA Vitamin D (Cholecalciferol (Vitamin D3) 25 Mcg Tablet) 50 mcg PO DAILY [facility] Last Admin: 06/25/22 08:10 Dose: 50 mcg Documented By: ALYSHA Labs CBC & Chem 7: 06/22/22 05:49 06/25/22 06:05 Labs: Laboratory Results - last 24 hr 06/24/22 06/24/22 06/24/22 11:08 16:09 19:58 Anion Gap Estim Creat Clear Calc Estimated GFR POC Glucose 168 H 131 H 145 H Random Glucose Osmolality Calcium Urine Osmolality Ur Random Sodium 06/25/22 06/25/22 06/25/22 06:05 06:05 08:04 Anion Gap 15 Estim Creat Clear Calc 103.2 Estimated GFR > 60 POC Glucose 80 Random Glucose 72 D Osmolality 263 L Calcium 8.1 L Urine Osmolality Ur Random Sodium 06/25/22 06/25/22 09:20 09:20 Anion Gap Estim Creat Clear Calc Estimated GFR POC Glucose Random Glucose Osmolality Calcium Urine Osmolality 636 Ur Random Sodium 77.0 Assessment and Plan (1) Physical deconditioning: Status: Acute (2) Hyponatremia: Status: Acute (3) Atrial fibrillation: Status: Acute (4) Cellulitis of right lower extremity: Status: Acute Plan 74M with pmh Diabetes, hypertension, hyperlipidemia, chronic venous stasis dermatitis, presented the ED with mechanical fall, noted to have acute hypoxia. Acute hypoxic respiratory failure secondary to pneumonia Has RLE cellulitis , improving Finished total 10 days of Abx has very sensitive LEs, start screaming once touched but no real tenderness on exam weaned of O2, now on RA mechanical fall PT finding difficulties ambulating him with increase pain and stiffness awaiting bed offer and better pain control, continue oxycodone laxative for constipation Generalized weakness MRI has concern over possible NPH, to get neurology eval Acute hyponatremia Na dropped down to 128 recheck urine studies on water restriction get nephrology evaluation Follow BMP New onset atrial fibrillation with RVR Rate controlled change metoprolol to 150mg bid Echo showing EF greater than 70% Cardiology input appreciated, continue Eliquis and rate control 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
[2022-06-25 11:14] VITALS: BP 134/64; PULSE 85; RESP 18; TEMP 37.2; O2SAT 92
[2022-06-25 11:20] LABS: Glucose, Whole Blood 177 mg/dL (60-115)
[2022-06-25] MEDS: Insulin Lispro 100 UNIT/ML 3 ML VIAL SUBCUT ×3 (11:42→21:05)
--- NOTE | 2022-06-25 12:59 | CONS_ITS ---
DATE OF SERVICE: 06/25/2022 REASON FOR CONSULTATION: I was called to see this patient to assist in the management of hyponatremia. HISTORY OF PRESENT ILLNESS: To summarize, Karthikeyan is a 81-year-old man with history of diabetes mellitus, hypertension, hyperlipidemia, and chronic venous stasis dermatitis. He comes in because of a fall. So, serum sodium was rather lower than admission in the low 130s. It has been pretty stable in the low levels and 4 days ago, sodium was 143. Today, sodium is 123 and hence this consultation. The urinalysis at the time of admission revealed a specific gravity 1.020. Today, serum osmolality is more than 600 with urine sodium 77. He is not on any diuretics. No hypotensive episodes. I's and O's were not available. ONGOING MEDICAL PROBLEMS: Include history of diabetes mellitus, hyperlipidemia, hypertension. Chest x-ray showed scattered solitary pulmonary nodules less than 6 mm. SOCIAL HISTORY: History of smoking in the past. PAST SURGICAL HISTORY: Cardiac surgery has been documented. The patient is unable to give details. SOCIAL HISTORY: History of smoking in the past. Does not smoke at present. No alcohol abuse. ALLERGIES: TO STATINS. CURRENT MEDICATIONS: Reviewed, which included losartan, insulin, hydralazine, Zofran, oxycodone, vitamin D. REVIEW OF SYSTEMS: Positive for leg pain. The patient is a poor historian. All information obtained from the chart. No nausea has been documented, but he is on Zofran. No diarrhea, constipation. No polyuria, polydipsia. PHYSICAL EXAMINATION: GENERAL: He is an elderly man. He is lying flat, comfortable, not in distress. NECK: Supple. LUNGS: Bilateral scattered rhonchi. HEART: S1, S2 heard. No gallop. ABDOMEN: Soft. EXTREMITIES: With some tenderness. No significant edema. No rash. VITAL SIGNS: Blood pressure was 150/70, pulse 73. LABORATORY DATA: Hemoglobin 11.8, platelets 230. Sodium 128, potassium 3.6, BUN 15, creatinine 0.58. Serum osmolality 263. Urine osmolality 636. Serum sodium 77. 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 Karthikeyan has hypotonic hyponatremia. Clinically appears euvolemic. RECOMMENDATIONS: Check TSH and serum cortisol levels. The lungs nodules could be source of nonosmotic ADH release. He also has had nausea, which could be another source for ADH. Agree with Prince cox. Keep him on oral free water restriction of 1 L per 24-hours. Watch serum sodium every 8 hours to avoid rapid correction. If serum sodium drops further, I will add urea powder to increase osmotic load. Goal is to maintain serum sodium 130 millimoles. I will continue to hold off on using any thiazide type diuretics at this time. We will follow him along with the team. Darren Vital MD BPA/MODL / [phone]
[2022-06-25 14:44] VITALS: BP 127/60; PULSE 83; RESP 18; TEMP 37.1; O2SAT 92
[2022-06-25 14:49] LABS: Anion Gap 13 (12-20); Blood Urea Nitrogen 21 mg/dL (9-16); Carbon Dioxide 24 mmol/L (22-29); Chloride 92 mmol/L (96-108); Creatinine Clr Calc Pharmacy 84.3; Estimated Glomerular Filt Rate > 60; Glucose Random 260 mg/dL (60-115); Potassium 3.8 mmol/L (3.3-5.1); Sodium 125 mmol/L (135-145)
[2022-06-25 14:55] LABS: Glucose, Whole Blood 261 mg/dL (60-115)
[2022-06-25 19:00] VITALS: BP 144/63; PULSE 87; RESP 18; TEMP 36.7
[2022-06-25 19:09] LABS: Glucose, Whole Blood 212 mg/dL (60-115)
[2022-06-25] MEDS: Metoprolol Tartrate 50 MG TABLET 150 MG PO (21:06)
[2022-06-25] MEDS: Insulin Glargine,Hum.rec.anlog 100 UNIT/ML 10 ML VIAL 22 UNIT SUBCUT (21:06)
[2022-06-26] VITALS (7 sets, daily range): BP systolic 111–152; BP diastolic 61–75; PULSE 75–87; RESP 17–19; TEMP 36.2–37; O2SAT 94–98
[2022-06-26] MEDS: Acetaminophen 325 MG TABLET 650 MG PO ×2 (02:00→14:20)
--- NOTE | 2022-06-26 06:45 | PC.NURSE ---
Pt's cardiac rhythm through the night has been A. Flutter, HR high 70-80's, BP 130/66, O2 95. Pt deneis any chest pain and SOB. MD Gonzalez notified of the pt's cardiac rhytm. No new orders given. Will continue to monitor pt's cardiac rhythm.
[2022-06-26 06:58] LABS: Anion Gap 12 (12-20); Blood Urea Nitrogen 16 mg/dL (9-16); Calcium 8.1 mg/dL (8.4-10.2); Carbon Dioxide 25 mmol/L (22-29); Chloride 94 mmol/L (96-108); Creatinine Clr Calc Pharmacy 99.8; Estimated Glomerular Filt Rate > 60; Glucose Random 65 mg/dL (60-115); Potassium 3.6 mmol/L (3.3-5.1); Sodium 127 mmol/L (135-145)
[2022-06-26 07:22] LABS: Thyroid Stimulating Hormone 1.16 uIU/mL (0.32-4.0)
[2022-06-26 07:26] LABS: Glucose, Whole Blood 75 mg/dL (60-115)
[2022-06-26] MEDS: 0.9 % Sodium Chloride Flush 3 ML SYRINGE IVFLUSH (09:13)
[2022-06-26] MEDS: Cholecalciferol (Vitamin D3) 25 MCG TABLET 50 MCG PO (09:14)
[2022-06-26] MEDS: Losartan Potassium 25 MG TABLET PO (09:15)
[2022-06-26] MEDS: Metoprolol Tartrate 50 MG TABLET 150 MG PO ×2 (09:16→20:15)
[2022-06-26] MEDS: hydrALAZINE HCl 25 MG TABLET PO ×2 (09:17→20:15)
[2022-06-26] MEDS: Apixaban 5 MG TABLET PO (09:18)
[2022-06-26] MEDS: amLODIPine Besylate 5 MG TABLET PO (09:18)
[2022-06-26] MEDS: polyethylene glycoL 3350 17 GM POWD.PACK PO (09:23)
[2022-06-26] MEDS: Lidocaine 4 % Patch ADH..PATCH 1 PATCH TRANSDERMA (09:28)
[2022-06-26] MEDS: 0.9 % Sodium Chloride 1,000 ML 50 ML IVCONT (09:29)
[2022-06-26] MEDS: Insulin Glargine,Hum.rec.anlog 100 UNIT/ML 10 ML VIAL 20 UNIT SUBCUT (09:34)
[2022-06-26] MEDS: Docusate Sodium 100 MG CAPSULE PO (09:35)
--- NOTE | 2022-06-26 11:11 | P.PNIM_ITS ---
Subjective Subjective Date of Service: 06/26/22 Interval History: cc: fall, hypoxia interval history: not participating much Cardiovascular Cardiovascular: Reports no additional cardiovascular complaints Gastrointestinal Gastrointestinal: Reports no additional gastrointestinal complaints Physical Exam Vital Signs: Vital Signs: Last Vital Signs Temp 97.2 F 06/26/22 07:23 Pulse 85 06/26/22 07:23 Resp 18 06/26/22 07:23 BP 150/75 H 06/26/22 07:23 Pulse Ox 94 06/26/22 07:23 O2 Del Method 06/26/22 07:23 O2 Flow Rate 1.0 06/19/22 07:49 BMI result Body Mass Index 26.6 Const: Other: Constitutional : Awake, interactive, not in distress Neck : Normal inspection, Supple Cardiovascular : Irregular irregular, no JVP, no lower extremity edema Respiratory : good bilateral air entry, no crackles, wheezes or rhonchi Gastrointestinal: soft, lax, Normal bowel sounds, Non tender Skin : Warm, Dry Neurological : Alert & oriented to self and place, No focal deficit Objective Data Active Medications Acetaminophen (Acetaminophen 325 Mg Tablet) 650 mg PO Q6H PRN PRN Reason: Pain, Mild (Pain Scale 1-3) Last Admin: 06/26/22 02:00 Dose: 650 mg Documented By: AUGUSTINA Amlodipine Besylate (Amlodipine Besylate 5 Mg Tablet) 5 mg PO DAILY [facility]; Protocol Last Admin: 06/26/22 09:18 Dose: 5 mg Documented By: KATHLEEN Apixaban (Apixaban 5 Mg Tablet) 5 mg PO BID [facility] Last Admin: 06/26/22 09:18 Dose: 5 mg Documented By: KATHLEEN Dextrose (Dextrose 50 % 25 Gm/50 Ml Syringe) 25 gm IVPUSH Q15M PRN; Protocol PRN Reason: per Hypoglycemia Standing Ord. Docusate Sodium (Docusate Sodium 100 Mg Capsule) 100 mg PO BID [facility] Last Admin: 06/26/22 09:35 Dose: 100 mg Documented By: KATHLEEN Glucose (Glucose Gel 15 Gm Gel..Gram.) 15 gm PO Q15M PRN; Protocol PRN Reason: per Hypoglycemia Standing Ord. Hydralazine HCl (Hydralazine Hcl 25 Mg Tablet) 25 mg PO BID [facility]; Protocol Last Admin: 06/26/22 09:17 Dose: 25 mg Documented By: KATHLEEN Sodium Chloride (Ns) 1,000 mls @ 50 mls/hr IVCONT .Q20H [facility] Stop: 06/26/22 18:14 Last Admin: 06/26/22 09:29 Dose: 50 mls/hr Documented By: KATHLEEN Insulin Glargine (Insulin Glargine,Hum.Rec.Anlog 100 Unit/Ml 10 Ml Vial) 20 unit SUBCUT DAILY@0730 [facility] Last Admin: 06/26/22 09:34 Dose: 20 unit Documented By: KATHLEEN Insulin Glargine (Insulin Glargine,Hum.Rec.Anlog 100 Unit/Ml 10 Ml Vial) 22 unit SUBCUT BEDTIME [facility] Last Admin: 06/25/22 21:06 Dose: 22 unit Documented By: AUGUSTINA Insulin Human Lispro (Insulin Lispro 100 Unit/Ml 3 Ml Vial) 0 unit SUBCUT QIDACHS [facility]; Protocol Last Admin: 06/26/22 07:53 Dose: Not Given Documented By: KATHLEEN Non-Admin Reason: No Insulin Coverage Lidocaine (Lidocaine 4 % Patch Adh..Patch) 1 patch TRANSDERMA DAILY [facility]; Protocol Last Admin: 06/26/22 09:28 Dose: 1 patch Documented By: KATHLEEN Losartan Potassium (Losartan Potassium 25 Mg Tablet) 25 mg PO DAILY [facility]; Protocol Last Admin: 06/26/22 09:15 Dose: 25 mg Documented By: KATHLEEN Metoprolol Tartrate (Metoprolol Tartrate 50 Mg Tablet) 150 mg PO BID [facility]; Protocol Last Admin: 06/26/22 09:16 Dose: 150 mg Documented By: KATHLEEN Ondansetron HCl (Ondansetron Hcl 4 Mg/2 Ml Vial) 4 mg IVPUSH Q8H PRN PRN Reason: Nausea and Vomiting Pharmacy Consult (Consult Rx Perform Med Rec) 1 each MISCELLANE ONCE PRN PRN Reason: Consult order Polyethylene Glycol (Polyethylene Glycol 3350 17 Gm Powd.Pack) 17 gm PO DAILY PRN PRN Reason: constipation Polyethylene Glycol (Polyethylene Glycol 3350 17 Gm Powd.Pack) 17 gm PO DAILY [facility] Last Admin: 06/26/22 09:23 Dose: 17 gm Documented By: KATHLEEN Sodium Chloride (0.9 % Sodium Chloride Flush 3 Ml Syringe) 3 ml IVFLUSH QSHIFT [facility] Last Admin: 06/26/22 09:13 Dose: 3 ml Documented By: KATHLEEN Vitamin D (Cholecalciferol (Vitamin D3) 25 Mcg Tablet) 50 mcg PO DAILY [facility] Last Admin: 06/26/22 09:14 Dose: 50 mcg Documented By: KATHLEEN Labs CBC & Chem 7: 06/22/22 05:49 06/26/22 06:25 Labs: Laboratory Results - last 24 hr 06/25/22 06/25/22 06/25/22 11:12 14:28 14:49 Anion Gap 13 Estim Creat Clear Calc 84.3 Estimated GFR > 60 POC Glucose 177 H 261 H Random Glucose 260 H Calcium 8.0 L TSH 06/25/22 06/26/22 06/26/22 19:03 06:25 06:25 Anion Gap 12 Estim Creat Clear Calc 99.8 Estimated GFR > 60 POC Glucose 212 H Random Glucose 65 Calcium 8.1 L TSH 1.16 06/26/22 07:22 Anion Gap Estim Creat Clear Calc Estimated GFR POC Glucose 75 Random Glucose Calcium TSH Assessment and Plan (1) Hyponatremia: Status: Acute (2) Physical deconditioning: Status: Acute (3) Atrial fibrillation: Status: Acute (4) Cellulitis of right lower extremity: Status: Acute Plan 74M with pmh Diabetes, hypertension, hyperlipidemia, chronic venous stasis dermatitis, presented the ED with mechanical fall, noted to have acute hypoxia. Acute hypoxic respiratory failure secondary to pneumonia Finished total 10 days of Abx weaned of O2, now on RA mechanical fall PT finding difficulties ambulating him with increase pain and stiffness awaiting bed offer and better pain control, continue oxycodone laxative for constipation complaining of right hip pain, will check xray Generalized weakness MRI has concern over possible NPH, neuro appreciated, not clinically NPH worsening mental status though, will recheck CT head Acute hyponatremia c/w SIADH, fluid restrict believe some solute deficiency as well, will give 500cc NS New onset atrial fibrillation with RVR Rate controlled change metoprolol to 150mg bid Echo showing EF greater than 70% Cardiology input appreciated, continue Eliquis and rate control 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
[2022-06-26 11:38] LABS: Glucose, Whole Blood 149 mg/dL (60-115)
--- NOTE | 2022-06-26 11:45 | PM.PNNEP ---
Subjective Subjective Date of Service: 07/03/22 Interval history: Events noted Physical Exam Vital Signs: Vital Signs: Last Vital Signs Temp 97.2 F 06/26/22 07:23 Pulse 85 06/26/22 07:23 Resp 18 06/26/22 07:23 BP 150/75 H 06/26/22 07:23 Pulse Ox 94 06/26/22 07:23 O2 Del Method 06/26/22 07:23 O2 Flow Rate 1.0 06/19/22 07:49 BMI result Body Mass Index 26.6 Const: Other: Constitutional : Awake, interactive, not in distress Neck : Normal inspection, Supple Cardiovascular : Irregular irregular, no JVP, no lower extremity edema Respiratory : good bilateral air entry, no crackles, wheezes or rhonchi Gastrointestinal: soft, lax, Normal bowel sounds, Non tender Skin : Warm, Dry Neurological : Alert & oriented to self and place, No focal deficit Objective Data Labs CBC & Chem 7: 07/02/22 05:38 07/03/22 05:02 Labs: Laboratory Results - last 24 hr 06/25/22 06/25/22 06/25/22 14:28 14:49 19:03 Sodium 125 L Potassium 3.8 Chloride 92 L Carbon Dioxide 24 Anion Gap 13 BUN 21 H Creatinine 0.71 Estim Creat Clear Calc 84.3 Estimated GFR > 60 POC Glucose 261 H 212 H Random Glucose 260 H Calcium 8.0 L TSH 06/26/22 06/26/22 06/26/22 06:25 06:25 07:22 Sodium 127 L Potassium 3.6 Chloride 94 L Carbon Dioxide 25 Anion Gap 12 BUN 16 Creatinine 0.60 Estim Creat Clear Calc 99.8 Estimated GFR > 60 POC Glucose 75 Random Glucose 65 Calcium 8.1 L TSH 1.16 06/26/22 11:33 Sodium Potassium Chloride Carbon Dioxide Anion Gap BUN Creatinine Estim Creat Clear Calc Estimated GFR POC Glucose 149 H Random Glucose Calcium TSH Microbiology Microbiology Results: Microbiology 06/15/22 15:00 Blood - Venous Blood Culture - Final No growth after 5 days. 06/15/22 15:00 Blood - Venous Blood Culture - Final No growth after 5 days. Procedures Date of Service Date of Service: 06/26/22 Assessment & Plan Assessment and plan (1) Hyponatremia: Status: Acute (2) Physical deconditioning: Status: Acute (3) Atrial fibrillation: Status: Acute (4) Cellulitis of right lower extremity: Status: Acute Plan 74M with Diabetes, hypertension, hyperlipidemia, chronic venous stasis dermatitis, presented the ED with mechanical fall, noted to have acute hypoxia. 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
--- NOTE | 2022-06-26 14:35 | MHC.CM.PN ---
Per MD rounds no dc today r/t hyponatremia. [facility] is following. The referral has been updated with clinical info. [facility] via BLS.
[2022-06-26 15:42] LABS: Glucose, Whole Blood 262 mg/dL (60-115)
[2022-06-26] MEDS: Insulin Lispro 100 UNIT/ML 3 ML VIAL SUBCUT ×2 (16:30→20:15)
[2022-06-26 20:08] LABS: Glucose, Whole Blood 213 mg/dL (60-115)
[2022-06-26] MEDS: Insulin Glargine,Hum.rec.anlog 100 UNIT/ML 10 ML VIAL 22 UNIT SUBCUT (20:16)
--- NOTE | 2022-06-26 21:18 | PM.NEUROPN ---
Subjective Subjective Date of Service: 06/26/22 Interval History: Events noted. Remains obtunded and moaning with limited non focal exam. CT scan reviewed: shows small amount of subarachnoid blood in the parieto occipital area, contusion of occipital lobes and small amount of dependent blood pooling in lateral vents. Critical Care Time (minutes): 0 Physical Exam Vital Signs: Vital Signs: Last Vital Signs Temp 97.8 F 06/26/22 18:52 Pulse 78 06/26/22 18:52 Resp 18 06/26/22 18:52 BP 152/71 H 06/26/22 18:52 Pulse Ox 95 06/26/22 18:52 O2 Del Method 06/26/22 18:52 O2 Flow Rate 1.0 06/19/22 07:49 BMI result Body Mass Index 26.6 Const: Other: Constitutional : Awake, interactive, not in distress Neck : Normal inspection, Supple Cardiovascular : Irregular irregular, no JVP, no lower extremity edema Respiratory : good bilateral air entry, no crackles, wheezes or rhonchi Gastrointestinal: soft, lax, Normal bowel sounds, Non tender Skin : Warm, Dry Neurological : Alert & oriented to self and place, No focal deficit General: cooperative, comfortable, no acute distress, alert and awake Nutritional Appearance: average body habitus Orientation/consciousness: oriented to person and patient oriented x3 HEENT: Head: Yes normocephalic and Yes atraumatic Neck: Neck: Yes trachea midline, Yes supple and Yes no JVD Chest: Chest palpation & inspection: other (Well-healed sternotomy scar) Resp: Effort & Inspection: decreased respiratory effort Auscultation: no rales, no rhonchi and diminished lung sounds Cardio: Jugular venous distension: no JVD Rate: tachycardic Rhythm: abnormal rhythm irregularly irregular Heart sounds: S1 normal heart sound present, S2 normal heart sound present, no click, no gallops and no murmurs GI: Auscultation: normal bowel sounds Skin: General skin exam: no rashes or lesions noted and ecchymosis Neuro: Other: He is leethargic but arousable and screams every time he is touched or cold. He would occasionally follow one step commands. There is no facial asymmetry. Visual raphael could not be adequately tested because of poor cooperation. He can move all 4 extremities against gravity. Reflex are absent plantar response are flexor. The patient was and not in a condition where his gait could be checked. There is some nuchal rigidity. General: oriented to person, patient oriented x3 and no focal motor deficits Extrem: General: Yes no clubbing, cyanosis or edema and Yes venous stasis dermatitis Objective Data Labs CBC & Chem 7: 06/22/22 05:49 06/26/22 06:25 Labs: Laboratory Results - last 24 hr 06/26/22 06/26/22 06/26/22 06:25 06:25 07:22 Sodium 127 L Potassium 3.6 Chloride 94 L Carbon Dioxide 25 Anion Gap 12 BUN 16 Creatinine 0.60 Estim Creat Clear Calc 99.8 Estimated GFR > 60 POC Glucose 75 Random Glucose 65 Calcium 8.1 L TSH 1.16 06/26/22 06/26/22 06/26/22 11:33 15:33 19:59 Sodium Potassium Chloride Carbon Dioxide Anion Gap BUN Creatinine Estim Creat Clear Calc Estimated GFR POC Glucose 149 H 262 H 213 H Random Glucose Calcium TSH Microbiology Microbiology Results: Microbiology 06/15/22 15:00 Blood - Venous Blood Culture - Final No growth after 5 days. 06/15/22 15:00 Blood - Venous Blood Culture - Final No growth after 5 days. Progress Note: A&P Assessment and plan (1) Hyponatremia: Status: Acute (2) Physical deconditioning: Status: Acute (3) Atrial fibrillation: Status: Acute (4) Cellulitis of right lower extremity: Status: Acute (5) Cerebral contusion: Status: Acute Assessment and Plan: secondary to fall with hemorrhage developing late secondary to anticoagulation. Recom. Stop Eliquis for [address] head in 48 hrs (6) Traumatic subarachnoid hemorrhage: Status: Acute Assessment and Plan: Late development secondary to anticoagulation. Stop Eliquis Plan 74M with pmh Diabetes, hypertension, hyperlipidemia, chronic venous stasis dermatitis, presented the ED with mechanical fall, noted to have acute hypoxia. Acute hypoxic respiratory failure secondary to pneumonia Finished total 10 days of Abx weaned of O2, now on RA mechanical fall PT finding difficulties ambulating him with increase pain and stiffness awaiting bed offer and better pain control, continue oxycodone laxative for constipation complaining of right hip pain, will check xray Generalized weakness MRI has concern over possible NPH, neuro appreciated, not clinically NPH worsening mental status though, will recheck CT head Acute hyponatremia c/w SIADH, fluid restrict believe some solute deficiency as well, will give 500cc NS New onset atrial fibrillation with RVR Rate controlled change metoprolol to 150mg bid Echo showing EF greater than 70% Cardiology input appreciated, continue Eliquis and rate control 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
[2022-06-27 03:34] VITALS: BP 153/75; PULSE 78; RESP 18; TEMP 36.7; O2SAT 97
[2022-06-27 05:53] LABS: Hematocrit 39.8 % (42.0-52.0); Hemoglobin 13.4 g/dl (14.0-18.0); Mean Corpuscular HGB Conc 33.7 g/dl (31.0-36.0); Mean Corpuscular Hemoglobin 27.7 pg (27.0-33.0); Mean Corpuscular Volume 82.2 fL (80.0-98.0); Mean Platelet Volume 8.6 fL (9.4-12.4); Platelet Count 330 X10*3/uL (160-400); Red Blood Count 4.84 X10*6/uL (4.60-5.80); Red Cell Distribution Width 14.6 % (11.0-16.0); White Blood Count 8.5 X10*3/uL (4.8-10.8)
[2022-06-27 06:13] LABS: Anion Gap 14 (12-20); Blood Urea Nitrogen 16 mg/dL (9-16); Calcium 8.3 mg/dL (8.4-10.2); Carbon Dioxide 23 mmol/L (22-29); Chloride 94 mmol/L (96-108); Estimated Glomerular Filt Rate > 60; Glucose Fasting 102 mg/dL (60-99); Potassium 3.9 mmol/L (3.3-5.1); Sodium 127 mmol/L (135-145)
[2022-06-27 07:07] LABS: Glucose, Whole Blood 99 mg/dL (60-115)
[2022-06-27 07:52] VITALS: BP 161/67; PULSE 69; RESP 20; TEMP 36.6; O2SAT 98
--- NOTE | 2022-06-27 07:56 | PM.PNNEP ---
Subjective Subjective Date of Service: 06/27/22 Interval history: Events noted. Remains obtunded and moaning with limited non focal exam. CT scan reviewed: shows small amount of subarachnoid blood in the parieto occipital area, contusion of occipital lobes and small amount of dependent blood pooling in lateral vents. Physical Exam Vital Signs: Vital Signs: Last Vital Signs Temp 97.8 F 06/27/22 07:52 Pulse 69 06/27/22 07:52 Resp 20 06/27/22 07:52 BP 161/67 H 06/27/22 07:52 Pulse Ox 98 06/27/22 07:52 O2 Del Method 06/27/22 07:52 O2 Flow Rate 1.0 06/19/22 07:49 BMI result Body Mass Index 26.6 Const: Other: Constitutional : Awake, interactive, not in distress Neck : Normal inspection, Supple Cardiovascular : Irregular irregular, no JVP, no lower extremity edema Respiratory : good bilateral air entry, no crackles, wheezes or rhonchi Gastrointestinal: soft, lax, Normal bowel sounds, Non tender Skin : Warm, Dry Neurological : Alert & oriented to self and place, No focal deficit General: cooperative, comfortable, no acute distress, alert and awake Nutritional Appearance: average body habitus Orientation/consciousness: oriented to person and patient oriented x3 HEENT: Head: Yes normocephalic and Yes atraumatic Neck: Neck: Yes trachea midline, Yes supple and Yes no JVD Chest: Chest palpation & inspection: other (Well-healed sternotomy scar) Resp: Effort & Inspection: decreased respiratory effort Auscultation: no rales, no rhonchi and diminished lung sounds Cardio: Jugular venous distension: no JVD Rate: tachycardic Rhythm: abnormal rhythm irregularly irregular Heart sounds: S1 normal heart sound present, S2 normal heart sound present, no click, no gallops and no murmurs GI: Auscultation: normal bowel sounds Skin: General skin exam: no rashes or lesions noted and ecchymosis Neuro: Other: He is leethargic but arousable and screams every time he is touched or cold. He would occasionally follow one step commands. There is no facial asymmetry. Visual raphael could not be adequately tested because of poor cooperation. He can move all 4 extremities against gravity. Reflex are absent plantar response are flexor. The patient was and not in a condition where his gait could be checked. There is some nuchal rigidity. General: oriented to person, patient oriented x3 and no focal motor deficits Extrem: General: Yes no clubbing, cyanosis or edema and Yes venous stasis dermatitis Objective Data Labs CBC & Chem 7: 06/27/22 05:17 06/27/22 05:17 Labs: Laboratory Results - last 24 hr 06/26/22 06/26/22 06/26/22 11:33 15:33 19:59 WBC RBC Hgb Hct MCV MCH MCHC RDW Plt Count MPV Absolute Nucleated RBC Nucleated RBC % (auto) Sodium Potassium Chloride Carbon Dioxide Anion Gap BUN Creatinine Estim Creat Clear Calc Estimated GFR POC Glucose 149 H 262 H 213 H Fasting Glucose Calcium 06/27/22 06/27/22 06/27/22 05:17 05:17 07:03 WBC 8.5 RBC 4.84 Hgb 13.4 L Hct 39.8 L MCV 82.2 MCH 27.7 MCHC 33.7 RDW 14.6 Plt Count 330 D MPV 8.6 L Absolute Nucleated RBC 0.000 Nucleated RBC % (auto) 0.0 Sodium 127 L Potassium 3.9 Chloride 94 L Carbon Dioxide 23 Anion Gap 14 BUN 16 Creatinine 0.57 Estim Creat Clear Calc 105.0 Estimated GFR > 60 POC Glucose 99 Fasting Glucose 102 H Calcium 8.3 L Microbiology Microbiology Results: Microbiology 06/15/22 15:00 Blood - Venous Blood Culture - Final No growth after 5 days. 06/15/22 15:00 Blood - Venous Blood Culture - Final No growth after 5 days. Procedures Date of Service Date of Service: 06/27/22 Assessment & Plan Assessment and plan (1) Hyponatremia: Status: Acute (2) Physical deconditioning: Status: Acute (3) Atrial fibrillation: Status: Acute (4) Cellulitis of right lower extremity: Status: Acute (5) Cerebral contusion: Status: Acute Assessment and Plan: secondary to fall with hemorrhage developing late secondary to anticoagulation. Recom. Stop Eliquis for [address] head in 48 hrs (6) Traumatic subarachnoid hemorrhage: Status: Acute Assessment and Plan: Late development secondary to anticoagulation. Stop Eliquis Plan 74M with pmh Diabetes, hypertension, hyperlipidemia, chronic venous stasis dermatitis, presented the ED with mechanical fall, noted to have acute hypoxia. hyponatremia stable continue water restriction urea powder Progress Note: Quality Stroke Does the patient have a stroke diagnosis?: No
[2022-06-27] MEDS: polyethylene glycoL 3350 17 GM POWD.PACK PO (08:16)
[2022-06-27] MEDS: amLODIPine Besylate 5 MG TABLET PO (08:17)
[2022-06-27] MEDS: Losartan Potassium 25 MG TABLET PO (08:17)
[2022-06-27] MEDS: Docusate Sodium 100 MG CAPSULE PO ×2 (08:17→21:20)
[2022-06-27] MEDS: Cholecalciferol (Vitamin D3) 25 MCG TABLET 50 MCG PO (08:17)
[2022-06-27] MEDS: Metoprolol Tartrate 50 MG TABLET 150 MG PO ×2 (08:17→21:20)
[2022-06-27] MEDS: hydrALAZINE HCl 25 MG TABLET PO ×2 (08:17→21:19)
[2022-06-27] MEDS: Insulin Glargine,Hum.rec.anlog 100 UNIT/ML 10 ML VIAL 20 UNIT SUBCUT (08:17)
[2022-06-27] MEDS: 0.9 % Sodium Chloride Flush 3 ML SYRINGE IVFLUSH ×3 (08:18→21:26)
--- NOTE | 2022-06-27 09:14 | HO.PM.IMPN ---
Subjective Subjective Date of Service: 06/27/22 Interval History: cc: fall, hypoxia interval history: not participating much Cardiovascular Cardiovascular: Reports no additional cardiovascular complaints Gastrointestinal Gastrointestinal: Reports no additional gastrointestinal complaints Physical Exam Vital Signs: Vital Signs: Last Vital Signs Temp 97.8 F 06/27/22 07:52 Pulse 69 06/27/22 07:52 Resp 20 06/27/22 07:52 BP 161/67 H 06/27/22 07:52 Pulse Ox 98 06/27/22 07:52 O2 Del Method 06/27/22 07:52 O2 Flow Rate 1.0 06/19/22 07:49 BMI result Body Mass Index 26.6 Const: Other: Constitutional : Awake, interactive, not in distress Neck : Normal inspection, Supple Cardiovascular : Irregular irregular, no JVP, no lower extremity edema Respiratory : good bilateral air entry, no crackles, wheezes or rhonchi Gastrointestinal: soft, lax, Normal bowel sounds, Non tender Skin : Warm, Dry Neurological : Alert & oriented to self and place, No focal deficit General: cooperative, comfortable, no acute distress, alert and awake Nutritional Appearance: average body habitus Orientation/consciousness: oriented to person and patient oriented x3 HEENT: Head: Yes normocephalic and Yes atraumatic Neck: Neck: Yes trachea midline, Yes supple and Yes no JVD Chest: Chest palpation & inspection: other (Well-healed sternotomy scar) Resp: Effort & Inspection: decreased respiratory effort Auscultation: no rales, no rhonchi and diminished lung sounds Cardio: Jugular venous distension: no JVD Rate: tachycardic Rhythm: abnormal rhythm irregularly irregular Heart sounds: S1 normal heart sound present, S2 normal heart sound present, no click, no gallops and no murmurs GI: Auscultation: normal bowel sounds Skin: General skin exam: no rashes or lesions noted and ecchymosis Neuro: Other: He is leethargic but arousable and screams every time he is touched or cold. He would occasionally follow one step commands. There is no facial asymmetry. Visual raphael could not be adequately tested because of poor cooperation. He can move all 4 extremities against gravity. Reflex are absent plantar response are flexor. The patient was and not in a condition where his gait could be checked. There is some nuchal rigidity. General: oriented to person, patient oriented x3 and no focal motor deficits Extrem: General: Yes no clubbing, cyanosis or edema and Yes venous stasis dermatitis Objective Data Active Medications Acetaminophen (Acetaminophen 325 Mg Tablet) 650 mg PO Q6H PRN PRN Reason: Pain, Mild (Pain Scale 1-3) Last Admin: 06/26/22 14:20 Dose: 650 mg Documented By: ALYSHA Amlodipine Besylate (Amlodipine Besylate 5 Mg Tablet) 5 mg PO DAILY [facility]; Protocol Last Admin: 06/27/22 08:17 Dose: 5 mg Documented By: TONNY Dextrose (Dextrose 50 % 25 Gm/50 Ml Syringe) 25 gm IVPUSH Q15M PRN; Protocol PRN Reason: per Hypoglycemia Standing Ord. Docusate Sodium (Docusate Sodium 100 Mg Capsule) 100 mg PO BID [facility] Last Admin: 06/27/22 08:17 Dose: 100 mg Documented By: TONNY Glucose (Glucose Gel 15 Gm Gel..Gram.) 15 gm PO Q15M PRN; Protocol PRN Reason: per Hypoglycemia Standing Ord. Hydralazine HCl (Hydralazine Hcl 25 Mg Tablet) 25 mg PO BID [facility]; Protocol Last Admin: 06/27/22 08:17 Dose: 25 mg Documented By: TONNY Insulin Glargine (Insulin Glargine,Hum.Rec.Anlog 100 Unit/Ml 10 Ml Vial) 20 unit SUBCUT DAILY@0730 [facility] Last Admin: 06/27/22 08:17 Dose: 20 unit Documented By: TONNY Insulin Glargine (Insulin Glargine,Hum.Rec.Anlog 100 Unit/Ml 10 Ml Vial) 22 unit SUBCUT BEDTIME [facility] Last Admin: 06/26/22 20:16 Dose: 22 unit Documented By: GIULIANO Insulin Human Lispro (Insulin Lispro 100 Unit/Ml 3 Ml Vial) 0 unit SUBCUT QIDACHS [facility]; Protocol Last Admin: 06/27/22 07:48 Dose: Not Given Documented By: TONYN Non-Admin Reason: No Insulin Coverage Lidocaine (Lidocaine 4 % Patch Adh..Patch) 1 patch TRANSDERMA DAILY [facility]; Protocol Last Admin: 06/26/22 09:28 Dose: 1 patch Documented By: KATHLEEN Losartan Potassium (Losartan Potassium 25 Mg Tablet) 25 mg PO DAILY [facility]; Protocol Last Admin: 06/27/22 08:17 Dose: 25 mg Documented By: TONNY Metoprolol Tartrate (Metoprolol Tartrate 50 Mg Tablet) 150 mg PO BID [facility]; Protocol Last Admin: 06/27/22 08:17 Dose: 150 mg Documented By: TONNY Ondansetron HCl (Ondansetron Hcl 4 Mg/2 Ml Vial) 4 mg IVPUSH Q8H PRN PRN Reason: Nausea and Vomiting Pharmacy Consult (Consult Rx Perform Med Rec) 1 each MISCELLANE ONCE PRN PRN Reason: Consult order Polyethylene Glycol (Polyethylene Glycol 3350 17 Gm Powd.Pack) 17 gm PO DAILY PRN PRN Reason: constipation Polyethylene Glycol (Polyethylene Glycol 3350 17 Gm Powd.Pack) 17 gm PO DAILY [facility] Last Admin: 06/27/22 08:16 Dose: 17 gm Documented By: TONNY Sodium Chloride (0.9 % Sodium Chloride Flush 3 Ml Syringe) 3 ml IVFLUSH QSHIFT [facility] Last Admin: 06/27/22 08:18 Dose: 3 ml Documented By: TONNY Vitamin D (Cholecalciferol (Vitamin D3) 25 Mcg Tablet) 50 mcg PO DAILY [facility] Last Admin: 06/27/22 08:17 Dose: 50 mcg Documented By: TONNY Labs CBC & Chem 7: 06/27/22 05:17 06/27/22 05:17 Labs: Laboratory Results - last 24 hr 06/26/22 06/26/22 06/26/22 11:33 15:33 19:59 MCV MCH MCHC RDW Plt Count MPV Absolute Nucleated RBC Nucleated RBC % (auto) Anion Gap Estim Creat Clear Calc Estimated GFR POC Glucose 149 H 262 H 213 H Fasting Glucose Calcium 06/27/22 06/27/22 06/27/22 05:17 05:17 07:03 MCV 82.2 MCH 27.7 MCHC 33.7 RDW 14.6 Plt Count 330 D MPV 8.6 L Absolute Nucleated RBC 0.000 Nucleated RBC % (auto) 0.0 Anion Gap 14 Estim Creat Clear Calc 105.0 Estimated GFR > 60 POC Glucose 99 Fasting Glucose 102 H Calcium 8.3 L Assessment and Plan (1) Hyponatremia: Status: Acute (2) Physical deconditioning: Status: Acute (3) Atrial fibrillation: Status: Acute (4) Cellulitis of right lower extremity: Status: Acute Plan 74M with pmh Diabetes, hypertension, hyperlipidemia, chronic venous stasis dermatitis, presented the ED with mechanical fall, noted to have acute hypoxia. traumatic subarachnoid hemorrhage hold eliquis for 2 weeks monitor Acute hypoxic respiratory failure secondary to pneumonia Finished total 10 days of Abx weaned of O2, now on RA mechanical fall PT finding difficulties ambulating him with increase pain and stiffness awaiting bed offer and better pain control, continue oxycodone laxative for constipation Generalized weakness MRI has concern over possible NPH, neuro appreciated, not clinically NPH worsening mental status though, will recheck CT head Acute hyponatremia c/w SIADH, fluid restrict, monitor New onset atrial fibrillation with RVR Rate controlled change metoprolol to 150mg bid Echo showing EF greater than 70% Cardiology input appreciated, continue Eliquis and rate control 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
[2022-06-27] MEDS: Lidocaine 4 % Patch ADH..PATCH 1 PATCH TRANSDERMA (09:52)
[2022-06-27 11:08] LABS: Glucose, Whole Blood 131 mg/dL (60-115)
[2022-06-27 11:46] VITALS: BP 152/62; RESP 18; TEMP 37.1; O2SAT 99
[2022-06-27 15:48] VITALS: BP 138/64; PULSE 81; RESP 18; TEMP 37; O2SAT 95
[2022-06-27 16:01] LABS: Glucose, Whole Blood 138 mg/dL (60-115)
--- NOTE | 2022-06-27 18:23 | PC.NURSE ---
Was concerned w/ lack of urine output from PT. His [place] cath had fallen off. He did have an unmeasured void, but decided to still bladder scan. Measured 917ml. Straight cath per MD Freedman. Pt voided 1400ml of clear yeallow urine. aware.
[2022-06-27 18:40] LABS: Creatinine Urine 61.32 mg/dL; Microalbum/Creatinine Ratio Ur 670.2 ug/mg cr; Total Protein Urine Random 54 mg/dL (<12)
[2022-06-27 20:00] VITALS: BP 122/62; PULSE 69; RESP 18; TEMP 36.6; O2SAT 98
[2022-06-27 20:43] LABS: Glucose, Whole Blood 113 mg/dL (60-115)
[2022-06-27] MEDS: Insulin Glargine,Hum.rec.anlog 100 UNIT/ML 10 ML VIAL 22 UNIT SUBCUT (21:20)
[2022-06-27 23:40] VITALS: BP 134/68; PULSE 60; RESP 16; TEMP 36.3; O2SAT 97
[2022-06-28 05:50] LABS: Hematocrit 42.1 % (42.0-52.0); Hemoglobin 13.9 g/dl (14.0-18.0); Mean Corpuscular Hemoglobin 26.9 pg (27.0-33.0); Mean Corpuscular Volume 81.4 fL (80.0-98.0); Mean Platelet Volume 8.3 fL (9.4-12.4); Platelet Count 338 X10*3/uL (160-400); Red Blood Count 5.17 X10*6/uL (4.60-5.80); Red Cell Distribution Width 14.6 % (11.0-16.0)
[2022-06-28 06:17] LABS: Anion Gap 15 (12-20); Blood Urea Nitrogen 11 mg/dL (9-16); Calcium 8.6 mg/dL (8.4-10.2); Carbon Dioxide 26 mmol/L (22-29); Chloride 92 mmol/L (96-108); Creatinine Clr Calc Pharmacy 101.5; Estimated Glomerular Filt Rate > 60; Glucose Fasting 44 mg/dL (60-99); Sodium 129 mmol/L (135-145)
[2022-06-28 07:29] VITALS: BP 156/70; PULSE 79; RESP 18; TEMP 36.2; O2SAT 96
[2022-06-28 07:33] LABS: Glucose, Whole Blood 90 mg/dL (60-115)
[2022-06-28] MEDS: Cholecalciferol (Vitamin D3) 25 MCG TABLET 50 MCG PO (08:03)
[2022-06-28] MEDS: hydrALAZINE HCl 25 MG TABLET PO ×2 (08:03→20:41)
[2022-06-28] MEDS: Losartan Potassium 25 MG TABLET PO (08:03)
[2022-06-28] MEDS: Docusate Sodium 100 MG CAPSULE PO ×2 (08:03→20:41)
[2022-06-28] MEDS: amLODIPine Besylate 5 MG TABLET PO (08:03)
[2022-06-28] MEDS: Metoprolol Tartrate 50 MG TABLET 150 MG PO ×2 (08:03→20:41)
[2022-06-28] MEDS: 0.9 % Sodium Chloride Flush 3 ML SYRINGE IVFLUSH ×3 (08:04→20:54)
[2022-06-28] MEDS: Lidocaine 4 % Patch ADH..PATCH 1 PATCH TRANSDERMA (08:04)
[2022-06-28] MEDS: polyethylene glycoL 3350 17 GM POWD.PACK PO ×2 (08:04→22:01)
--- NOTE | 2022-06-28 09:24 | HO.PM.IMPN ---
Subjective Subjective Date of Service: 06/28/22 Interval History: cc: fall, hypoxia interval history: not participating much Cardiovascular Cardiovascular: Reports no additional cardiovascular complaints Gastrointestinal Gastrointestinal: Reports no additional gastrointestinal complaints Physical Exam Vital Signs: Vital Signs: Last Vital Signs Temp 97.1 F 06/28/22 07:29 Pulse 79 06/28/22 07:29 Resp 18 06/28/22 07:29 BP 156/70 H 06/28/22 07:29 Pulse Ox 96 06/28/22 07:29 O2 Del Method 06/28/22 07:29 O2 Flow Rate 1.0 06/19/22 07:49 BMI result Body Mass Index 26.6 Const: Other: Constitutional : Awake, interactive, not in distress Neck : Normal inspection, Supple Cardiovascular : Irregular irregular, no JVP, no lower extremity edema Respiratory : good bilateral air entry, no crackles, wheezes or rhonchi Gastrointestinal: soft, lax, Normal bowel sounds, Non tender Skin : Warm, Dry Neurological : Alert & oriented to self and place, No focal deficit General: cooperative, comfortable, no acute distress, alert and awake Nutritional Appearance: average body habitus Orientation/consciousness: oriented to person and patient oriented x3 HEENT: Head: Yes normocephalic and Yes atraumatic Neck: Neck: Yes trachea midline, Yes supple and Yes no JVD Chest: Chest palpation & inspection: other (Well-healed sternotomy scar) Resp: Effort & Inspection: decreased respiratory effort Auscultation: no rales, no rhonchi and diminished lung sounds Cardio: Jugular venous distension: no JVD Rate: tachycardic Rhythm: abnormal rhythm irregularly irregular Heart sounds: S1 normal heart sound present, S2 normal heart sound present, no click, no gallops and no murmurs GI: Auscultation: normal bowel sounds Skin: General skin exam: no rashes or lesions noted and ecchymosis Neuro: Other: He is leethargic but arousable and screams every time he is touched or cold. He would occasionally follow one step commands. There is no facial asymmetry. Visual raphael could not be adequately tested because of poor cooperation. He can move all 4 extremities against gravity. Reflex are absent plantar response are flexor. The patient was and not in a condition where his gait could be checked. There is some nuchal rigidity. General: oriented to person, patient oriented x3 and no focal motor deficits Extrem: General: Yes no clubbing, cyanosis or edema and Yes venous stasis dermatitis Objective Data Active Medications Acetaminophen (Acetaminophen 325 Mg Tablet) 650 mg PO Q6H PRN PRN Reason: Pain, Mild (Pain Scale 1-3) Last Admin: 06/26/22 14:20 Dose: 650 mg Documented By: ALYSHA Amlodipine Besylate (Amlodipine Besylate 5 Mg Tablet) 5 mg PO DAILY [facility]; Protocol Last Admin: 06/28/22 08:03 Dose: 5 mg Documented By: DIPAK Dextrose (Dextrose 50 % 25 Gm/50 Ml Syringe) 25 gm IVPUSH Q15M PRN; Protocol PRN Reason: per Hypoglycemia Standing Ord. Docusate Sodium (Docusate Sodium 100 Mg Capsule) 100 mg PO BID [facility] Last Admin: 06/28/22 08:03 Dose: 100 mg Documented By: DIPAK Glucose (Glucose Gel 15 Gm Gel..Gram.) 15 gm PO Q15M PRN; Protocol PRN Reason: per Hypoglycemia Standing Ord. Hydralazine HCl (Hydralazine Hcl 25 Mg Tablet) 25 mg PO BID [facility]; Protocol Last Admin: 06/28/22 08:03 Dose: 25 mg Documented By: DIPAK Insulin Glargine (Insulin Glargine,Hum.Rec.Anlog 100 Unit/Ml 10 Ml Vial) 20 unit SUBCUT DAILY@0730 [facility] Last Admin: 06/28/22 07:53 Dose: Not Given Documented By: DIPAK Non-Admin Reason: hypoglycemic this AM. MD to hold. Insulin Glargine (Insulin Glargine,Hum.Rec.Anlog 100 Unit/Ml 10 Ml Vial) 10 unit SUBCUT BEDTIME [facility] Insulin Human Lispro (Insulin Lispro 100 Unit/Ml 3 Ml Vial) 0 unit SUBCUT QIDACHS [facility]; Protocol Last Admin: 06/28/22 07:52 Dose: Not Given Documented By: DIPAK Non-Admin Reason: No Insulin Coverage Lidocaine (Lidocaine 4 % Patch Adh..Patch) 1 patch TRANSDERMA DAILY [facility]; Protocol Last Admin: 06/28/22 08:04 Dose: 1 patch Documented By: DIPAK Losartan Potassium (Losartan Potassium 25 Mg Tablet) 25 mg PO DAILY [facility]; Protocol Last Admin: 06/28/22 08:03 Dose: 25 mg Documented By: DIPAK Metoprolol Tartrate (Metoprolol Tartrate 50 Mg Tablet) 150 mg PO BID [facility]; Protocol Last Admin: 06/28/22 08:03 Dose: 150 mg Documented By: DIPAK Ondansetron HCl (Ondansetron Hcl 4 Mg/2 Ml Vial) 4 mg IVPUSH Q8H PRN PRN Reason: Nausea and Vomiting Pharmacy Consult (Consult Rx Perform Med Rec) 1 each MISCELLANE ONCE PRN PRN Reason: Consult order Polyethylene Glycol (Polyethylene Glycol 3350 17 Gm Powd.Pack) 17 gm PO DAILY PRN PRN Reason: constipation Polyethylene Glycol (Polyethylene Glycol 3350 17 Gm Powd.Pack) 17 gm PO DAILY [facility] Last Admin: 06/28/22 08:04 Dose: 17 gm Documented By: DIPAK Sodium Chloride (0.9 % Sodium Chloride Flush 3 Ml Syringe) 3 ml IVFLUSH QSHIFT [facility] Last Admin: 06/28/22 08:04 Dose: 3 ml Documented By: DIPAK Vitamin D (Cholecalciferol (Vitamin D3) 25 Mcg Tablet) 50 mcg PO DAILY [facility] Last Admin: 06/28/22 08:03 Dose: 50 mcg Documented By: DIPAK Labs CBC & Chem 7: 06/28/22 05:12 06/28/22 05:12 Labs: Laboratory Results - last 24 hr 06/27/22 06/27/22 06/27/22 11:04 15:47 18:15 MCV MCH MCHC RDW Plt Count MPV Absolute Nucleated RBC Nucleated RBC % (auto) Anion Gap Estim Creat Clear Calc Estimated GFR POC Glucose 131 H 138 H Fasting Glucose Calcium U Random Total Protein 54 H Urine Creatinine 61.32 Urine Microalbumin 411.0 Microalb/Creat Ratio 670.2 06/27/22 06/28/22 06/28/22 19:20 05:12 05:12 MCV 81.4 MCH 26.9 L MCHC 33.0 RDW 14.6 Plt Count 338 MPV 8.3 L Absolute Nucleated RBC 0.000 Nucleated RBC % (auto) 0.0 Anion Gap 15 Estim Creat Clear Calc 101.5 Estimated GFR > 60 POC Glucose 113 Fasting Glucose 44 L* Calcium 8.6 U Random Total Protein Urine Creatinine Urine Microalbumin Microalb/Creat Ratio 06/28/22 07:27 MCV MCH MCHC RDW Plt Count MPV Absolute Nucleated RBC Nucleated RBC % (auto) Anion Gap Estim Creat Clear Calc Estimated GFR POC Glucose 90 Fasting Glucose Calcium U Random Total Protein Urine Creatinine Urine Microalbumin Microalb/Creat Ratio Assessment and Plan (1) Hyponatremia: Status: Acute (2) Physical deconditioning: Status: Acute (3) Atrial fibrillation: Status: Acute (4) Cellulitis of right lower extremity: Status: Acute Plan 74M with pmh Diabetes, hypertension, hyperlipidemia, chronic venous stasis dermatitis, presented the ED with mechanical fall, noted to have acute hypoxia. traumatic subarachnoid hemorrhage hold eliquis for 2 weeks monitor, follow up 48hr CT head Acute hypoxic respiratory failure secondary to pneumonia Finished total 10 days of Abx weaned of O2, now on RA urinary retention bladder scan q8, intermittent cath mechanical fall PT finding difficulties ambulating him with increase pain and stiffness awaiting bed offer and better pain control, continue oxycodone laxative for constipation Generalized weakness MRI has concern over possible NPH, neuro appreciated, not clinically NPH worsening mental status though, will recheck CT head Acute hyponatremia c/w SIADH, fluid restrict, monitor New onset atrial fibrillation with RVR Rate controlled change metoprolol to 150mg bid Echo showing EF greater than 70% Cardiology input appreciated, continue Eliquis and rate control 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
[2022-06-28 11:43] LABS: Glucose, Whole Blood 122 mg/dL (60-115)
[2022-06-28 11:55] VITALS: BP 125/78; PULSE 78; RESP 18; TEMP 36.6; O2SAT 95
--- NOTE | 2022-06-28 14:21 | MHC.CLN ---
F/U SKIN WITH STAGE II TO COCCYX. DIET=DIABETIC 2000 KCALS, NDD3 CONSISTENCY, 1500 ML FLUID RESTRICTION. ENSURE BID TO PROMOTE WOUND HEALING. PROVIDES ADDITIONAL 700 KCALS, 40 G PROTEIN. INTAKE AT MEALS VARIABLE, 25-100%. FOLLOW FOR INTAKE AND WOUND.
[2022-06-28 15:13] VITALS: BP 152/77; PULSE 79; RESP 18; TEMP 37; O2SAT 96
--- NOTE | 2022-06-28 15:37 | MHC.CM.PN ---
EMR REVIEWED. PT WITH HYPONATREMIA. [facility] UNABLE TO OFFER A BED. CM WILL CONTINUE TO FOLLOW FOR DC PLAN.
[2022-06-28 15:44] LABS: Glucose, Whole Blood 149 mg/dL (60-115)
[2022-06-28] MEDS: Acetaminophen 325 MG TABLET 650 MG PO ×2 (16:03→21:59)
[2022-06-28 19:11] VITALS: BP 140/65; PULSE 77; RESP 18; TEMP 37; O2SAT 97
[2022-06-28 20:05] LABS: Glucose, Whole Blood 193 mg/dL (60-115)
[2022-06-28] MEDS: Insulin Lispro 100 UNIT/ML 3 ML VIAL SUBCUT (20:42)
[2022-06-28] MEDS: Insulin Glargine,Hum.rec.anlog 100 UNIT/ML 10 ML VIAL 10 UNIT SUBCUT (20:43)
[2022-06-29] VITALS (7 sets, daily range): BP systolic 119–160; BP diastolic 59–95; PULSE 56–84; RESP 15–20; TEMP 36.1–36.8; O2SAT 96–98
--- NOTE | 2022-06-29 00:12 | PC.NURSE ---
obtained bladder scan @00:00, 778 mL, straight cat out put 700 mL.
[2022-06-29 06:27] LABS: Hematocrit 40.3 % (42.0-52.0); Hemoglobin 13.4 g/dl (14.0-18.0); Mean Corpuscular HGB Conc 33.3 g/dl (31.0-36.0); Mean Corpuscular Hemoglobin 27.5 pg (27.0-33.0); Mean Corpuscular Volume 82.8 fL (80.0-98.0); Mean Platelet Volume 8.4 fL (9.4-12.4); Platelet Count 280 X10*3/uL (160-400); Red Blood Count 4.87 X10*6/uL (4.60-5.80); Red Cell Distribution Width 14.6 % (11.0-16.0); White Blood Count 6.5 X10*3/uL (4.8-10.8)
[2022-06-29 06:29] LABS: Anion Gap 13 (12-20); Blood Urea Nitrogen 13 mg/dL (9-16); Calcium 8.3 mg/dL (8.4-10.2); Carbon Dioxide 25 mmol/L (22-29); Chloride 92 mmol/L (96-108); Estimated Glomerular Filt Rate > 60; Glucose Fasting 119 mg/dL (60-99); Potassium 4.1 mmol/L (3.3-5.1); Sodium 126 mmol/L (135-145)
--- NOTE | 2022-06-29 07:02 | PM.PNNEP ---
Subjective Subjective Date of Service: 06/29/22 Interval history: cc: fall, hypoxia interval history: not participating much Physical Exam Vital Signs: Vital Signs: Last Vital Signs Temp 96.9 F 06/29/22 04:00 Pulse 67 06/29/22 04:00 Resp 20 06/29/22 04:00 BP 143/72 H 06/29/22 04:00 Pulse Ox 98 06/29/22 04:00 O2 Del Method 06/29/22 04:00 O2 Flow Rate 1.0 06/19/22 07:49 BMI result Body Mass Index 26.6 Const: Other: Constitutional : Awake, interactive, not in distress Neck : Normal inspection, Supple Cardiovascular : Irregular irregular, no JVP, no lower extremity edema Respiratory : good bilateral air entry, no crackles, wheezes or rhonchi Gastrointestinal: soft, lax, Normal bowel sounds, Non tender Skin : Warm, Dry Neurological : Alert & oriented to self and place, No focal deficit General: cooperative, comfortable, no acute distress, alert and awake Nutritional Appearance: average body habitus Orientation/consciousness: oriented to person and patient oriented x3 HEENT: Head: Yes normocephalic and Yes atraumatic Neck: Neck: Yes trachea midline, Yes supple and Yes no JVD Chest: Chest palpation & inspection: other (Well-healed sternotomy scar) Resp: Effort & Inspection: decreased respiratory effort Auscultation: no rales, no rhonchi and diminished lung sounds Cardio: Jugular venous distension: no JVD Rate: tachycardic Rhythm: abnormal rhythm irregularly irregular Heart sounds: S1 normal heart sound present, S2 normal heart sound present, no click, no gallops and no murmurs GI: Auscultation: normal bowel sounds Skin: General skin exam: no rashes or lesions noted and ecchymosis Neuro: Other: He is leethargic but arousable and screams every time he is touched or cold. He would occasionally follow one step commands. There is no facial asymmetry. Visual raphael could not be adequately tested because of poor cooperation. He can move all 4 extremities against gravity. Reflex are absent plantar response are flexor. The patient was and not in a condition where his gait could be checked. There is some nuchal rigidity. General: oriented to person, patient oriented x3 and no focal motor deficits Extrem: General: Yes no clubbing, cyanosis or edema and Yes venous stasis dermatitis Objective Data Labs CBC & Chem 7: 06/29/22 05:45 06/29/22 05:45 Labs: Laboratory Results - last 24 hr 06/28/22 06/28/22 06/28/22 07:27 11:15 15:16 WBC RBC Hgb Hct MCV MCH MCHC RDW Plt Count MPV Absolute Nucleated RBC Nucleated RBC % (auto) Sodium Potassium Chloride Carbon Dioxide Anion Gap BUN Creatinine Estim Creat Clear Calc Estimated GFR POC Glucose 90 122 H 149 H Fasting Glucose Calcium 06/28/22 06/29/22 06/29/22 19:43 05:45 05:45 WBC 6.5 RBC 4.87 Hgb 13.4 L Hct 40.3 L MCV 82.8 MCH 27.5 MCHC 33.3 RDW 14.6 Plt Count 280 MPV 8.4 L Absolute Nucleated RBC 0.000 Nucleated RBC % (auto) 0.0 Sodium 126 L Potassium 4.1 Chloride 92 L Carbon Dioxide 25 Anion Gap 13 BUN 13 Creatinine 0.57 Estim Creat Clear Calc 105.0 Estimated GFR > 60 POC Glucose 193 H Fasting Glucose 119 H Calcium 8.3 L Microbiology Microbiology Results: Microbiology 06/15/22 15:00 Blood - Venous Blood Culture - Final No growth after 5 days. 06/15/22 15:00 Blood - Venous Blood Culture - Final No growth after 5 days. Procedures Date of Service Date of Service: 06/29/22 Assessment & Plan Assessment and plan (1) Hyponatremia: Status: Acute Assessment and Plan: i ordered urea powder 20 gr daily for persistent hyponatremia (2) Physical deconditioning: Status: Acute (3) Atrial fibrillation: Status: Acute (4) Cellulitis of right lower extremity: Status: Acute Plan 74M with h Diabetes, hypertension, hyperlipidemia, chronic venous stasis dermatitis, presented the ED with mechanical fall, noted to have acute hypoxia. traumatic subarachnoid hemorrhage hold eliquis for 2 weeks monitor, follow up 48hr CT head Acute hypoxic respiratory failure secondary to pneumonia Finished total 10 days of Abx weaned of O2, now on RA urinary retention bladder scan q8, intermittent cath mechanical fall PT finding difficulties ambulating him with increase pain and stiffness awaiting bed offer and better pain control, continue oxycodone laxative for constipation Generalized weakness MRI has concern over possible NPH, neuro appreciated, not clinically NPH worsening mental status though, will recheck CT head Acute hyponatremia c/w SIADH, fluid restrict, monitor New onset atrial fibrillation with RVR Rate controlled change metoprolol to 150mg bid Echo showing EF greater than 70% Cardiology input appreciated, continue Eliquis and rate control 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
[2022-06-29 08:12] LABS: Glucose, Whole Blood 124 mg/dL (60-115)
[2022-06-29] MEDS: Cholecalciferol (Vitamin D3) 25 MCG TABLET 50 MCG PO (08:49)
[2022-06-29] MEDS: Urea 15 GM POWDER 30 GM PO (08:49)
[2022-06-29] MEDS: polyethylene glycoL 3350 17 GM POWD.PACK PO (08:49)
[2022-06-29] MEDS: hydrALAZINE HCl 25 MG TABLET PO ×2 (08:49→20:39)
[2022-06-29] MEDS: Lidocaine 4 % Patch ADH..PATCH 1 PATCH TRANSDERMA (08:49)
[2022-06-29] MEDS: amLODIPine Besylate 5 MG TABLET PO (08:49)
[2022-06-29] MEDS: 0.9 % Sodium Chloride Flush 3 ML SYRINGE IVFLUSH ×3 (08:50→21:46)
[2022-06-29] MEDS: Docusate Sodium 100 MG CAPSULE PO ×2 (08:50→20:39)
[2022-06-29] MEDS: Metoprolol Tartrate 50 MG TABLET 150 MG PO ×2 (08:50→20:39)
[2022-06-29] MEDS: Insulin Glargine,Hum.rec.anlog 100 UNIT/ML 10 ML VIAL 20 UNIT SUBCUT (08:50)
[2022-06-29] MEDS: Losartan Potassium 25 MG TABLET PO (08:50)
--- NOTE | 2022-06-29 10:07 | P.PNIM_ITS ---
Subjective Subjective Date of Service: 06/29/22 Interval History: cc: fall, hypoxia interval history: not participating much Cardiovascular Cardiovascular: Reports no additional cardiovascular complaints Gastrointestinal Gastrointestinal: Reports no additional gastrointestinal complaints Physical Exam Vital Signs: Vital Signs: Last Vital Signs Temp 97.5 F 06/29/22 08:00 Pulse 78 06/29/22 08:00 Resp 19 06/29/22 08:00 BP 141/71 H 06/29/22 08:00 Pulse Ox 97 06/29/22 08:00 O2 Del Method 06/29/22 08:00 O2 Flow Rate 1.0 06/19/22 07:49 BMI result Body Mass Index 26.6 Const: Other: Constitutional : Awake, interactive, not in distress Neck : Normal inspection, Supple Cardiovascular : Irregular irregular, no JVP, no lower extremity edema Respiratory : good bilateral air entry, no crackles, wheezes or rhonchi Gastrointestinal: soft, lax, Normal bowel sounds, Non tender Skin : Warm, Dry Neurological : Alert & oriented to self and place, No focal deficit General: cooperative, comfortable, no acute distress, alert and awake Nutritional Appearance: average body habitus Orientation/consciousness: oriented to person and patient oriented x3 HEENT: Head: Yes normocephalic and Yes atraumatic Neck: Neck: Yes trachea midline, Yes supple and Yes no JVD Chest: Chest palpation & inspection: other (Well-healed sternotomy scar) Resp: Effort & Inspection: decreased respiratory effort Auscultation: no rales, no rhonchi and diminished lung sounds Cardio: Jugular venous distension: no JVD Rate: tachycardic Rhythm: abnormal rhythm irregularly irregular Heart sounds: S1 normal heart sound present, S2 normal heart sound present, no click, no gallops and no murmurs GI: Auscultation: normal bowel sounds Skin: General skin exam: no rashes or lesions noted and ecchymosis Neuro: Other: He is leethargic but arousable and screams every time he is touched or cold. He would occasionally follow one step commands. There is no facial asymmetry. Visual raphael could not be adequately tested because of poor cooperation. He can move all 4 extremities against gravity. Reflex are absent plantar response are flexor. The patient was and not in a condition where his gait could be checked. There is some nuchal rigidity. General: oriented to person, patient oriented x3 and no focal motor deficits Extrem: General: Yes no clubbing, cyanosis or edema and Yes venous stasis dermatitis Objective Data Active Medications Acetaminophen (Acetaminophen 325 Mg Tablet) 650 mg PO Q6H PRN PRN Reason: Pain, Mild (Pain Scale 1-3) Last Admin: 06/28/22 21:59 Dose: 650 mg Documented By: ADRIANA Amlodipine Besylate (Amlodipine Besylate 5 Mg Tablet) 5 mg PO DAILY [facility]; Protocol Last Admin: 06/29/22 08:49 Dose: 5 mg Documented By: NARCISO Dextrose (Dextrose 50 % 25 Gm/50 Ml Syringe) 25 gm IVPUSH Q15M PRN; Protocol PRN Reason: per Hypoglycemia Standing Ord. Docusate Sodium (Docusate Sodium 100 Mg Capsule) 100 mg PO BID [facility] Last Admin: 06/29/22 08:50 Dose: 100 mg Documented By: NARCISO Glucose (Glucose Gel 15 Gm Gel..Gram.) 15 gm PO Q15M PRN; Protocol PRN Reason: per Hypoglycemia Standing Ord. Hydralazine HCl (Hydralazine Hcl 25 Mg Tablet) 25 mg PO BID [facility]; Protocol Last Admin: 06/29/22 08:49 Dose: 25 mg Documented By: NARCISO Insulin Glargine (Insulin Glargine,Hum.Rec.Anlog 100 Unit/Ml 10 Ml Vial) 20 unit SUBCUT DAILY@0730 [facility] Last Admin: 06/29/22 08:50 Dose: 20 unit Documented By: NARCISO Insulin Glargine (Insulin Glargine,Hum.Rec.Anlog 100 Unit/Ml 10 Ml Vial) 10 unit SUBCUT BEDTIME [facility] Last Admin: 06/28/22 20:43 Dose: 10 unit Documented By: ADRIANA Insulin Human Lispro (Insulin Lispro 100 Unit/Ml 3 Ml Vial) 0 unit SUBCUT QIDACHS [facility]; Protocol Last Admin: 06/29/22 08:23 Dose: Not Given Documented By: NARCISO Non-Admin Reason: No Insulin Coverage Lidocaine (Lidocaine 4 % Patch Adh..Patch) 1 patch TRANSDERMA DAILY [facility]; Protocol Last Admin: 06/29/22 08:49 Dose: 1 patch Documented By: NARCISO Losartan Potassium (Losartan Potassium 25 Mg Tablet) 25 mg PO DAILY [facility]; Protocol Last Admin: 06/29/22 08:50 Dose: 25 mg Documented By: NARCISO Metoprolol Tartrate (Metoprolol Tartrate 50 Mg Tablet) 150 mg PO BID [facility]; Protocol Last Admin: 06/29/22 08:50 Dose: 150 mg Documented By: NARCISO Ondansetron HCl (Ondansetron Hcl 4 Mg/2 Ml Vial) 4 mg IVPUSH Q8H PRN PRN Reason: Nausea and Vomiting Pharmacy Consult (Consult Rx Perform Med Rec) 1 each MISCELLANE ONCE PRN PRN Reason: Consult order Polyethylene Glycol (Polyethylene Glycol 3350 17 Gm Powd.Pack) 17 gm PO DAILY PRN PRN Reason: constipation Last Admin: 06/28/22 22:01 Dose: 17 gm Documented By: ADRIANA Polyethylene Glycol (Polyethylene Glycol 3350 17 Gm Powd.Pack) 17 gm PO DAILY [facility] Last Admin: 06/29/22 08:49 Dose: 17 gm Documented By: NARCISO Sodium Chloride (0.9 % Sodium Chloride Flush 3 Ml Syringe) 3 ml IVFLUSH QSHIFT [facility] Last Admin: 06/29/22 08:50 Dose: 3 ml Documented By: NARCISO Urea (Urea 15 Gm Powder) 30 gm PO DAILY [facility] Last Admin: 06/29/22 09:19 Dose: Not Given Documented By: NARCISO Non-Admin Reason: Duplicate Order Vitamin D (Cholecalciferol (Vitamin D3) 25 Mcg Tablet) 50 mcg PO DAILY [facility] Last Admin: 06/29/22 08:49 Dose: 50 mcg Documented By: NARCISO Labs CBC & Chem 7: 06/29/22 05:45 06/29/22 05:45 Labs: Laboratory Results - last 24 hr 06/28/22 06/28/22 06/28/22 11:15 15:16 19:43 MCV MCH MCHC RDW Plt Count MPV Absolute Nucleated RBC Nucleated RBC % (auto) Anion Gap Estim Creat Clear Calc Estimated GFR POC Glucose 122 H 149 H 193 H Fasting Glucose Calcium 06/29/22 06/29/22 06/29/22 05:45 05:45 08:08 MCV 82.8 MCH 27.5 MCHC 33.3 RDW 14.6 Plt Count 280 MPV 8.4 L Absolute Nucleated RBC 0.000 Nucleated RBC % (auto) 0.0 Anion Gap 13 Estim Creat Clear Calc 105.0 Estimated GFR > 60 POC Glucose 124 H Fasting Glucose 119 H Calcium 8.3 L Assessment and Plan (1) Hyponatremia: Status: Acute (2) Physical deconditioning: Status: Acute (3) Atrial fibrillation: Status: Acute (4) Cellulitis of right lower extremity: Status: Acute Plan 74M with pmh Diabetes, hypertension, hyperlipidemia, chronic venous stasis dermatitis, presented the ED with mechanical fall, noted to have acute hypoxia. traumatic subarachnoid hemorrhage hold eliquis for 2 weeks (restart 08/10/21) stable Acute hypoxic respiratory failure secondary to pneumonia Finished total 10 days of Abx weaned of O2, now on RA urinary retention bladder scan q8, intermittent cath mechanical fall PT finding difficulties ambulating him with increase pain and stiffness awaiting bed offer and better pain control, continue oxycodone laxative for constipation Generalized weakness MRI has concern over possible NPH, neuro appreciated, not clinically NPH worsening mental status though, will recheck CT head Acute hyponatremia c/w SIADH, fluid restrict, monitor New onset atrial fibrillation with RVR Rate controlled change metoprolol to 150mg bid Echo showing EF greater than 70% Cardiology input appreciated, continue Eliquis and rate control 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
[2022-06-29 11:30] LABS: Glucose, Whole Blood 173 mg/dL (60-115)
[2022-06-29] MEDS: Insulin Lispro 100 UNIT/ML 3 ML VIAL SUBCUT (12:05)
[2022-06-29 16:26] LABS: Glucose, Whole Blood 96 mg/dL (60-115)
[2022-06-29 19:09] LABS: Glucose, Whole Blood 130 mg/dL (60-115)
[2022-06-29] MEDS: Insulin Glargine,Hum.rec.anlog 100 UNIT/ML 10 ML VIAL 10 UNIT SUBCUT (20:40)
[2022-06-30] MEDS: Acetaminophen 325 MG TABLET 650 MG PO (01:18)
[2022-06-30 04:00] VITALS: BP 144/67; PULSE 65; RESP 16; TEMP 36; O2SAT 92
[2022-06-30 07:59] LABS: Glucose, Whole Blood 62 mg/dL (60-115)
[2022-06-30 08:00] VITALS: BP 184/88; PULSE 79; RESP 17; TEMP 36.2; O2SAT 99
[2022-06-30] MEDS: hydrALAZINE HCl 25 MG TABLET PO ×2 (08:10→21:16)
[2022-06-30] MEDS: Docusate Sodium 100 MG CAPSULE PO ×2 (08:10→21:16)
[2022-06-30] MEDS: Cholecalciferol (Vitamin D3) 25 MCG TABLET 50 MCG PO (08:10)
[2022-06-30] MEDS: amLODIPine Besylate 5 MG TABLET PO (08:10)
[2022-06-30] MEDS: Losartan Potassium 25 MG TABLET PO (08:10)
[2022-06-30] MEDS: Metoprolol Tartrate 50 MG TABLET 150 MG PO ×2 (08:11→21:17)
[2022-06-30] MEDS: Urea 15 GM POWDER 30 GM PO (08:11)
[2022-06-30] MEDS: Lidocaine 4 % Patch ADH..PATCH 1 PATCH TRANSDERMA (08:11)
[2022-06-30] MEDS: polyethylene glycoL 3350 17 GM POWD.PACK PO (08:11)
[2022-06-30] MEDS: 0.9 % Sodium Chloride Flush 3 ML SYRINGE IVFLUSH ×3 (08:12→21:26)
--- NOTE | 2022-06-30 08:50 | PM.PNNEP ---
Subjective Subjective Date of Service: 06/30/22 Interval history: cc: fall, hypoxia interval history: not participating much Physical Exam Vital Signs: Vital Signs: Last Vital Signs Temp 97.2 F 06/30/22 08:00 Pulse 79 06/30/22 08:00 Resp 17 06/30/22 08:00 BP 184/88 H 06/30/22 08:00 Pulse Ox 99 06/30/22 08:00 O2 Del Method 06/30/22 08:00 O2 Flow Rate 1.0 06/19/22 07:49 BMI result Body Mass Index 26.6 Const: Other: Constitutional : Awake, interactive, not in distress Neck : Normal inspection, Supple Cardiovascular : Irregular irregular, no JVP, no lower extremity edema Respiratory : good bilateral air entry, no crackles, wheezes or rhonchi Gastrointestinal: soft, lax, Normal bowel sounds, Non tender Skin : Warm, Dry Neurological : Alert & oriented to self and place, No focal deficit General: cooperative, comfortable, no acute distress, alert and awake Nutritional Appearance: average body habitus Orientation/consciousness: oriented to person and patient oriented x3 HEENT: Head: Yes normocephalic and Yes atraumatic Neck: Neck: Yes trachea midline, Yes supple and Yes no JVD Chest: Chest palpation & inspection: other (Well-healed sternotomy scar) Resp: Effort & Inspection: decreased respiratory effort Auscultation: no rales, no rhonchi and diminished lung sounds Cardio: Jugular venous distension: no JVD Rate: tachycardic Rhythm: abnormal rhythm irregularly irregular Heart sounds: S1 normal heart sound present, S2 normal heart sound present, no click, no gallops and no murmurs GI: Auscultation: normal bowel sounds Skin: General skin exam: no rashes or lesions noted and ecchymosis Neuro: Other: He is leethargic but arousable and screams every time he is touched or cold. He would occasionally follow one step commands. There is no facial asymmetry. Visual raphael could not be adequately tested because of poor cooperation. He can move all 4 extremities against gravity. Reflex are absent plantar response are flexor. The patient was and not in a condition where his gait could be checked. There is some nuchal rigidity. General: oriented to person, patient oriented x3 and no focal motor deficits Extrem: General: Yes no clubbing, cyanosis or edema and Yes venous stasis dermatitis Objective Data Labs CBC & Chem 7: 06/29/22 05:45 06/29/22 05:45 Labs: Laboratory Results - last 24 hr 06/29/22 06/29/22 06/29/22 11:24 16:08 19:04 POC Glucose 173 H 96 130 H 06/30/22 07:54 POC Glucose 62 Microbiology Microbiology Results: Microbiology 06/15/22 15:00 Blood - Venous Blood Culture - Final No growth after 5 days. 06/15/22 15:00 Blood - Venous Blood Culture - Final No growth after 5 days. Procedures Date of Service Date of Service: 06/30/22 Assessment & Plan Assessment and plan (1) Hyponatremia: Status: Acute Assessment and Plan: stable Na labs pending today on urea 30 G daily (2) Physical deconditioning: Status: Acute (3) Atrial fibrillation: Status: Acute (4) Cellulitis of right lower extremity: Status: Acute Plan 74M with pmh Diabetes, hypertension, hyperlipidemia, chronic venous stasis dermatitis, presented the ED with mechanical fall, noted to have acute hypoxia. traumatic subarachnoid hemorrhage hold eliquis for 2 weeks (restart 08/10/21) stable Acute hypoxic respiratory failure secondary to pneumonia Finished total 10 days of Abx weaned of O2, now on RA urinary retention bladder scan q8, intermittent cath d Acute hyponatremia c/w SIADH, fluid restrict, monitor Progress Note: Quality Stroke Does the patient have a stroke diagnosis?: No
--- NOTE | 2022-06-30 09:40 | P.PNIM_ITS ---
Subjective Subjective Date of Service: 06/30/22 Interval History: cc: fall, hypoxia interval history: not participating much Cardiovascular Cardiovascular: Reports no additional cardiovascular complaints Gastrointestinal Gastrointestinal: Reports no additional gastrointestinal complaints Physical Exam Vital Signs: Vital Signs: Last Vital Signs Temp 97.2 F 06/30/22 08:00 Pulse 79 06/30/22 08:00 Resp 17 06/30/22 08:00 BP 184/88 H 06/30/22 08:00 Pulse Ox 99 06/30/22 08:00 O2 Del Method 06/30/22 08:00 O2 Flow Rate 1.0 06/19/22 07:49 BMI result Body Mass Index 26.6 Const: Other: Constitutional : Awake, interactive, not in distress Neck : Normal inspection, Supple Cardiovascular : Irregular irregular, no JVP, no lower extremity edema Respiratory : good bilateral air entry, no crackles, wheezes or rhonchi Gastrointestinal: soft, lax, Normal bowel sounds, Non tender Skin : Warm, Dry Neurological : Alert & oriented to self and place, No focal deficit General: cooperative, comfortable, no acute distress, alert and awake Nutritional Appearance: average body habitus Orientation/consciousness: oriented to person and patient oriented x3 HEENT: Head: Yes normocephalic and Yes atraumatic Neck: Neck: Yes trachea midline, Yes supple and Yes no JVD Chest: Chest palpation & inspection: other (Well-healed sternotomy scar) Resp: Effort & Inspection: decreased respiratory effort Auscultation: no rales, no rhonchi and diminished lung sounds Cardio: Jugular venous distension: no JVD Rate: tachycardic Rhythm: abnormal rhythm irregularly irregular Heart sounds: S1 normal heart sound present, S2 normal heart sound present, no click, no gallops and no murmurs GI: Auscultation: normal bowel sounds Skin: General skin exam: no rashes or lesions noted and ecchymosis Neuro: Other: He is leethargic but arousable and screams every time he is touched or cold. He would occasionally follow one step commands. There is no facial asymmetry. Visual raphael could not be adequately tested because of poor cooperation. He can move all 4 extremities against gravity. Reflex are absent plantar response are flexor. The patient was and not in a condition where his gait could be checked. There is some nuchal rigidity. General: oriented to person, patient oriented x3 and no focal motor deficits Extrem: General: Yes no clubbing, cyanosis or edema and Yes venous stasis dermatitis Objective Data Active Medications Acetaminophen (Acetaminophen 325 Mg Tablet) 650 mg PO Q6H PRN PRN Reason: Pain, Mild (Pain Scale 1-3) Last Admin: 06/30/22 01:18 Dose: 650 mg Documented By: ADRIANA Amlodipine Besylate (Amlodipine Besylate 5 Mg Tablet) 5 mg PO DAILY [facility]; Protocol Last Admin: 06/30/22 08:10 Dose: 5 mg Documented By: NARCISO Dextrose (Dextrose 50 % 25 Gm/50 Ml Syringe) 25 gm IVPUSH Q15M PRN; Protocol PRN Reason: per Hypoglycemia Standing Ord. Docusate Sodium (Docusate Sodium 100 Mg Capsule) 100 mg PO BID [facility] Last Admin: 06/30/22 08:10 Dose: 100 mg Documented By: NARCISO Glucose (Glucose Gel 15 Gm Gel..Gram.) 15 gm PO Q15M PRN; Protocol PRN Reason: per Hypoglycemia Standing Ord. Hydralazine HCl (Hydralazine Hcl 25 Mg Tablet) 25 mg PO BID [facility]; Protocol Last Admin: 06/30/22 08:10 Dose: 25 mg Documented By: NARCISO Insulin Glargine (Insulin Glargine,Hum.Rec.Anlog 100 Unit/Ml 10 Ml Vial) 20 unit SUBCUT DAILY@0730 [facility] Last Admin: 06/30/22 07:58 Dose: Not Given Documented By: NARCISO Non-Admin Reason: nursing judgment/BG 62 Insulin Glargine (Insulin Glargine,Hum.Rec.Anlog 100 Unit/Ml 10 Ml Vial) 10 unit SUBCUT BEDTIME [facility] Last Admin: 06/29/22 20:40 Dose: 10 unit Documented By: ADRIANA Insulin Human Lispro (Insulin Lispro 100 Unit/Ml 3 Ml Vial) 0 unit SUBCUT QIDACHS [facility]; Protocol Last Admin: 06/30/22 07:58 Dose: Not Given Documented By: NARCISO Non-Admin Reason: No Insulin Coverage Lidocaine (Lidocaine 4 % Patch Adh..Patch) 1 patch TRANSDERMA DAILY [facility]; Protocol Last Admin: 06/30/22 08:11 Dose: 1 patch Documented By: NARCISO Losartan Potassium (Losartan Potassium 25 Mg Tablet) 25 mg PO DAILY [facility]; Protocol Last Admin: 06/30/22 08:10 Dose: 25 mg Documented By: NARCISO Metoprolol Tartrate (Metoprolol Tartrate 50 Mg Tablet) 150 mg PO BID [facility]; Protocol Last Admin: 06/30/22 08:11 Dose: 150 mg Documented By: NARCISO Ondansetron HCl (Ondansetron Hcl 4 Mg/2 Ml Vial) 4 mg IVPUSH Q8H PRN PRN Reason: Nausea and Vomiting Pharmacy Consult (Consult Rx Perform Med Rec) 1 each MISCELLANE ONCE PRN PRN Reason: Consult order Polyethylene Glycol (Polyethylene Glycol 3350 17 Gm Powd.Pack) 17 gm PO DAILY PRN PRN Reason: constipation Last Admin: 06/28/22 22:01 Dose: 17 gm Documented By: ADRIANA Polyethylene Glycol (Polyethylene Glycol 3350 17 Gm Powd.Pack) 17 gm PO DAILY [facility] Last Admin: 06/30/22 08:11 Dose: 17 gm Documented By: NARCISO Sodium Chloride (0.9 % Sodium Chloride Flush 3 Ml Syringe) 3 ml IVFLUSH QSHIFT [facility] Last Admin: 06/30/22 08:12 Dose: 3 ml Documented By: NARCISO Urea (Urea 15 Gm Powder) 30 gm PO DAILY [facility] Last Admin: 06/30/22 08:11 Dose: 30 gm Documented By: NARCISO Vitamin D (Cholecalciferol (Vitamin D3) 25 Mcg Tablet) 50 mcg PO DAILY [facility] Last Admin: 06/30/22 08:10 Dose: 50 mcg Documented By: NARCISO Labs CBC & Chem 7: 06/29/22 05:45 06/29/22 05:45 Labs: Laboratory Results - last 24 hr 06/29/22 06/29/22 06/29/22 11:24 16:08 19:04 POC Glucose 173 H 96 130 H 06/30/22 07:54 POC Glucose 62 Assessment and Plan (1) Hyponatremia: Status: Acute (2) Physical deconditioning: Status: Acute (3) Atrial fibrillation: Status: Acute (4) Cellulitis of right lower extremity: Status: Acute Plan 74M with pmh Diabetes, hypertension, hyperlipidemia, chronic venous stasis dermatitis, presented the ED with mechanical fall, noted to have acute hypoxia. traumatic subarachnoid hemorrhage hold eliquis for 2 weeks (restart 08/10/21) stable Acute hypoxic respiratory failure secondary to pneumonia Finished total 10 days of Abx weaned of O2, now on RA urinary retention bladder scan q8, intermittent cath mechanical fall PT finding difficulties ambulating him with increase pain and stiffness awaiting bed offer and better pain control, continue oxycodone laxative for constipation Generalized weakness MRI has concern over possible NPH, neuro appreciated, not clinically NPH Acute hyponatremia c/w SIADH, fluid restrict, monitor New onset atrial fibrillation with RVR Rate controlled metoprolol to 150mg bid Echo showing EF greater than 70% Cardiology input appreciated restart miller 08/10/21 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
[2022-06-30 09:43] LABS: MANUAL DIFF FLAG NO
[2022-06-30 10:06] LABS: Anion Gap 14 (12-20); Calcium 8.6 mg/dL (8.4-10.2); Carbon Dioxide 25 mmol/L (22-29); Chloride 95 mmol/L (96-108); Glucose Random 147 mg/dL (60-115); Potassium 4.2 mmol/L (3.3-5.1); Sodium 130 mmol/L (135-145)
[2022-06-30 10:08] LABS: Basophils Percent Auto 0.4 % (0-2); Eosinophils Percent Auto 0.3 % (0-4); Hemoglobin 13.9 g/dl (14.0-18.0); Imm Gran Abs Auto 0.03 X10*3/uL (0.00-0.03); Imm Gran Pct Auto 0.3 % (0.0-0.4); Lymphocytes Absolute Auto 1.6 X10*3/uL (1.2-4.9); Lymphocytes Percent Auto 17.9 % (20-40); Mean Corpuscular HGB Conc 33.1 g/dl (31.0-36.0); Mean Corpuscular Hemoglobin 27.3 pg (27.0-33.0); Mean Corpuscular Volume 82.4 fL (80.0-98.0); Mean Platelet Volume 8.4 fL (9.4-12.4); Monocytes Absolute Auto 0.7 X10*3/uL (0.1-1.2); Monocytes Percent Auto 8.1 % (2-11); Neutrophils Absolute Auto 6.6 x10*3/uL (2.0-8.3); Platelet Count 300 X10*3/uL (160-400); Red Cell Distribution Width 14.8 % (11.0-16.0); White Blood Count 9.1 X10*3/uL (4.8-10.8)
[2022-06-30 10:17] LABS: Blood Urea Nitrogen 32 mg/dL (9-16); Creatinine Clr Calc Pharmacy 92.1; Estimated Glomerular Filt Rate > 60
[2022-06-30 11:50] LABS: Glucose, Whole Blood 139 mg/dL (60-115)
[2022-06-30 12:00] VITALS: BP 138/76; PULSE 77; RESP 16; TEMP 36.2; O2SAT 98
[2022-06-30 15:48] VITALS: BP 145/66; PULSE 80; RESP 18; TEMP 36.4; O2SAT 97
[2022-06-30 16:42] LABS: Glucose, Whole Blood 133 mg/dL (60-115)
[2022-06-30 19:50] VITALS: BP 138/66; PULSE 84; RESP 14; TEMP 36.4; O2SAT 97
[2022-06-30 20:09] LABS: Glucose, Whole Blood 244 mg/dL (60-115)
[2022-06-30] MEDS: Insulin Glargine,Hum.rec.anlog 100 UNIT/ML 10 ML VIAL 10 UNIT SUBCUT (21:17)
[2022-06-30] MEDS: Insulin Lispro 100 UNIT/ML 3 ML VIAL SUBCUT (21:17)
[2022-06-30 23:54] VITALS: BP 114/66; PULSE 84; RESP 14; TEMP 36.2; O2SAT 97
[2022-07-01 03:35] VITALS: BP 142/64; PULSE 79; RESP 14; TEMP 36.1; O2SAT 96
[2022-07-01 05:46] LABS: Hematocrit 41.3 % (42.0-52.0); Hemoglobin 13.7 g/dl (14.0-18.0); Mean Corpuscular HGB Conc 33.2 g/dl (31.0-36.0); Mean Corpuscular Hemoglobin 27.1 pg (27.0-33.0); Mean Corpuscular Volume 81.8 fL (80.0-98.0); Platelet Count 273 X10*3/uL (160-400); Red Blood Count 5.05 X10*6/uL (4.60-5.80); Red Cell Distribution Width 14.8 % (11.0-16.0); White Blood Count 9.2 X10*3/uL (4.8-10.8)
[2022-07-01 07:37] LABS: Glucose, Whole Blood 105 mg/dL (60-115)
[2022-07-01 08:00] VITALS: BP 125/64; PULSE 84; RESP 20; TEMP 36.4; O2SAT 97
[2022-07-01] MEDS: 0.9 % Sodium Chloride Flush 3 ML SYRINGE IVFLUSH ×3 (08:01→21:14)
--- NOTE | 2022-07-01 09:07 | HO.PM.IMPN ---
Subjective Subjective Date of Service: 07/01/22 Interval History: cc: fall, hypoxia interval history: not participating much Cardiovascular Cardiovascular: Reports no additional cardiovascular complaints Gastrointestinal Gastrointestinal: Reports no additional gastrointestinal complaints Physical Exam Vital Signs: Vital Signs: Last Vital Signs Temp 97.5 F 07/01/22 08:00 Pulse 84 07/01/22 08:00 Resp 20 07/01/22 08:00 BP 125/64 07/01/22 08:00 Pulse Ox 97 07/01/22 08:00 O2 Del Method 07/01/22 08:00 O2 Flow Rate 1.0 06/19/22 07:49 BMI result Body Mass Index 26.6 Const: Other: Constitutional : Awake, interactive, not in distress Neck : Normal inspection, Supple Cardiovascular : Irregular irregular, no JVP, no lower extremity edema Respiratory : good bilateral air entry, no crackles, wheezes or rhonchi Gastrointestinal: soft, lax, Normal bowel sounds, Non tender Skin : Warm, Dry Neurological : Alert & oriented to self and place, No focal deficit General: cooperative, comfortable, no acute distress, alert and awake Nutritional Appearance: average body habitus Orientation/consciousness: oriented to person and patient oriented x3 HEENT: Head: Yes normocephalic and Yes atraumatic Neck: Neck: Yes trachea midline, Yes supple and Yes no JVD Chest: Chest palpation & inspection: other (Well-healed sternotomy scar) Resp: Effort & Inspection: decreased respiratory effort Auscultation: no rales, no rhonchi and diminished lung sounds Cardio: Jugular venous distension: no JVD Rate: tachycardic Rhythm: abnormal rhythm irregularly irregular Heart sounds: S1 normal heart sound present, S2 normal heart sound present, no click, no gallops and no murmurs GI: Auscultation: normal bowel sounds Skin: General skin exam: no rashes or lesions noted and ecchymosis Neuro: Other: He is leethargic but arousable and screams every time he is touched or cold. He would occasionally follow one step commands. There is no facial asymmetry. Visual raphael could not be adequately tested because of poor cooperation. He can move all 4 extremities against gravity. Reflex are absent plantar response are flexor. The patient was and not in a condition where his gait could be checked. There is some nuchal rigidity. General: oriented to person, patient oriented x3 and no focal motor deficits Extrem: General: Yes no clubbing, cyanosis or edema and Yes venous stasis dermatitis Objective Data Active Medications Acetaminophen (Acetaminophen 325 Mg Tablet) 650 mg PO Q6H PRN PRN Reason: Pain, Mild (Pain Scale 1-3) Last Admin: 06/30/22 01:18 Dose: 650 mg Documented By: ADRIANA Amlodipine Besylate (Amlodipine Besylate 5 Mg Tablet) 5 mg PO DAILY [facility]; Protocol Last Admin: 06/30/22 08:10 Dose: 5 mg Documented By: NARCISO Dextrose (Dextrose 50 % 25 Gm/50 Ml Syringe) 25 gm IVPUSH Q15M PRN; Protocol PRN Reason: per Hypoglycemia Standing Ord. Docusate Sodium (Docusate Sodium 100 Mg Capsule) 100 mg PO BID [facility] Last Admin: 06/30/22 21:16 Dose: 100 mg Documented By: TOY Glucose (Glucose Gel 15 Gm Gel..Gram.) 15 gm PO Q15M PRN; Protocol PRN Reason: per Hypoglycemia Standing Ord. Hydralazine HCl (Hydralazine Hcl 25 Mg Tablet) 25 mg PO BID [facility]; Protocol Last Admin: 06/30/22 21:16 Dose: 25 mg Documented By: TOY Insulin Glargine (Insulin Glargine,Hum.Rec.Anlog 100 Unit/Ml 10 Ml Vial) 20 unit SUBCUT DAILY@0730 [facility] Last Admin: 06/30/22 07:58 Dose: Not Given Documented By: NARCISO Non-Admin Reason: nursing judgment/BG 62 Insulin Glargine (Insulin Glargine,Hum.Rec.Anlog 100 Unit/Ml 10 Ml Vial) 10 unit SUBCUT BEDTIME [facility] Last Admin: 06/30/22 21:17 Dose: 10 unit Documented By: TOY Insulin Human Lispro (Insulin Lispro 100 Unit/Ml 3 Ml Vial) 0 unit SUBCUT QIDACHS [facility]; Protocol Last Admin: 07/01/22 08:01 Dose: Not Given Documented By: ELVIRA Non-Admin Reason: No Insulin Coverage Lidocaine (Lidocaine 4 % Patch Adh..Patch) 1 patch TRANSDERMA DAILY [facility]; Protocol Last Admin: 06/30/22 08:11 Dose: 1 patch Documented By: NARCISO Losartan Potassium (Losartan Potassium 25 Mg Tablet) 25 mg PO DAILY [facility]; Protocol Last Admin: 06/30/22 08:10 Dose: 25 mg Documented By: NARCISO Metoprolol Tartrate (Metoprolol Tartrate 50 Mg Tablet) 150 mg PO BID [facility]; Protocol Last Admin: 06/30/22 21:17 Dose: 150 mg Documented By: TOY Ondansetron HCl (Ondansetron Hcl 4 Mg/2 Ml Vial) 4 mg IVPUSH Q8H PRN PRN Reason: Nausea and Vomiting Pharmacy Consult (Consult Rx Perform Med Rec) 1 each MISCELLANE ONCE PRN PRN Reason: Consult order Polyethylene Glycol (Polyethylene Glycol 3350 17 Gm Powd.Pack) 17 gm PO DAILY PRN PRN Reason: constipation Last Admin: 06/28/22 22:01 Dose: 17 gm Documented By: ADRIANA Polyethylene Glycol (Polyethylene Glycol 3350 17 Gm Powd.Pack) 17 gm PO DAILY [facility] Last Admin: 06/30/22 08:11 Dose: 17 gm Documented By: NARCISO Sodium Chloride (0.9 % Sodium Chloride Flush 3 Ml Syringe) 3 ml IVFLUSH QSHIFT [facility] Last Admin: 07/01/22 08:01 Dose: 3 ml Documented By: ELVIRA Urea (Urea 15 Gm Powder) 30 gm PO DAILY [facility] Last Admin: 06/30/22 08:11 Dose: 30 gm Documented By: NARCISO Vitamin D (Cholecalciferol (Vitamin D3) 25 Mcg Tablet) 50 mcg PO DAILY [facility] Last Admin: 06/30/22 08:10 Dose: 50 mcg Documented By: NARCISO Labs CBC & Chem 7: 07/01/22 05:39 06/30/22 09:23 Labs: Laboratory Results - last 24 hr 06/30/22 06/30/22 06/30/22 09:23 09:23 11:24 MCV 82.4 MCH 27.3 MCHC 33.1 RDW 14.8 Plt Count 300 MPV 8.4 L Immature Gran % (Auto) 0.3 Neut % (Auto) 73.0 Lymph % (Auto) 17.9 L [place] % (Auto) 8.1 Eos % (Auto) 0.3 Baso % (Auto) 0.4 Lymph # (Auto) 1.6 [place] # (Auto) 0.7 Eos # (Auto) 0.0 Baso # (Auto) 0.0 Abs Immat Gran (auto) 0.03 Absolute Neuts (auto) 6.6 Absolute Nucleated RBC 0.000 Nucleated RBC % (auto) 0.0 Anion Gap 14 Estim Creat Clear Calc 92.1 Estimated GFR > 60 POC Glucose 139 H Random Glucose 147 H D Calcium 8.6 06/30/22 06/30/22 07/01/22 15:28 19:53 05:39 MCV 81.8 MCH 27.1 MCHC 33.2 RDW 14.8 Plt Count 273 MPV 8.0 L Immature Gran % (Auto) Neut % (Auto) Lymph % (Auto) [place] % (Auto) Eos % (Auto) Baso % (Auto) Lymph # (Auto) [place] # (Auto) Eos # (Auto) Baso # (Auto) Abs Immat Gran (auto) Absolute Neuts (auto) Absolute Nucleated RBC 0.000 Nucleated RBC % (auto) 0.0 Anion Gap Estim Creat Clear Calc Estimated GFR POC Glucose 133 H 244 H Random Glucose Calcium 07/01/22 07:32 MCV MCH MCHC RDW Plt Count MPV Immature Gran % (Auto) Neut % (Auto) Lymph % (Auto) [place] % (Auto) Eos % (Auto) Baso % (Auto) Lymph # (Auto) [place] # (Auto) Eos # (Auto) Baso # (Auto) Abs Immat Gran (auto) Absolute Neuts (auto) Absolute Nucleated RBC Nucleated RBC % (auto) Anion Gap Estim Creat Clear Calc Estimated GFR POC Glucose 105 Random Glucose Calcium Assessment and Plan (1) Hyponatremia: Status: Acute (2) Physical deconditioning: Status: Acute (3) Atrial fibrillation: Status: Acute (4) Cellulitis of right lower extremity: Status: Acute Plan 74M with pmh Diabetes, hypertension, hyperlipidemia, chronic venous stasis dermatitis, presented the ED with mechanical fall, noted to have acute hypoxia. traumatic subarachnoid hemorrhage hold eliquis for 2 weeks (restart 08/10/21) stable Acute hypoxic respiratory failure secondary to pneumonia Finished total 10 days of Abx weaned of O2, now on RA urinary retention bladder scan q8, intermittent cath mechanical fall PT finding difficulties ambulating him with increase pain and stiffness awaiting bed offer and better pain control, continue oxycodone laxative for constipation Generalized weakness MRI has concern over possible NPH, neuro appreciated, not clinically NPH Acute hyponatremia c/w SIADH, fluid restrict, monitor New onset atrial fibrillation with RVR Rate controlled metoprolol 150mg bid Echo showing EF greater than 70% Cardiology input appreciated restart miller 08/10/21 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
[2022-07-01] MEDS: hydrALAZINE HCl 25 MG TABLET PO ×2 (09:46→21:13)
[2022-07-01] MEDS: amLODIPine Besylate 5 MG TABLET PO (09:46)
[2022-07-01] MEDS: Insulin Glargine,Hum.rec.anlog 100 UNIT/ML 10 ML VIAL 20 UNIT SUBCUT (09:46)
[2022-07-01] MEDS: Docusate Sodium 100 MG CAPSULE PO ×2 (09:46→21:13)
[2022-07-01] MEDS: Urea 15 GM POWDER 30 GM PO (09:46)
[2022-07-01] MEDS: Metoprolol Tartrate 50 MG TABLET 150 MG PO ×2 (09:46→21:13)
[2022-07-01] MEDS: Lidocaine 4 % Patch ADH..PATCH 1 PATCH TRANSDERMA (09:48)
[2022-07-01] MEDS: Cholecalciferol (Vitamin D3) 25 MCG TABLET 50 MCG PO (09:48)
[2022-07-01] MEDS: polyethylene glycoL 3350 17 GM POWD.PACK PO (09:48)
[2022-07-01] MEDS: Acetaminophen 325 MG TABLET 650 MG PO (09:52)
[2022-07-01] MEDS: Losartan Potassium 25 MG TABLET PO (09:59)
[2022-07-01 10:48] LABS: Anion Gap 14 (12-20); Blood Urea Nitrogen 19 mg/dL (9-16); Calcium 8.3 mg/dL (8.4-10.2); Carbon Dioxide 22 mmol/L (22-29); Chloride 96 mmol/L (96-108); Estimated Glomerular Filt Rate > 60; Glucose Fasting 111 mg/dL (60-99); Potassium 4.1 mmol/L (3.3-5.1); Sodium 128 mmol/L (135-145)
[2022-07-01 11:00] LABS: Glucose, Whole Blood 229 mg/dL (60-115)
--- NOTE | 2022-07-01 11:00 | MHC.CLN ---
F/U SKIN WITH STAGE II TO COCCYX. DIET=DIABETIC 2000 KCALS, NDD3 CONSISTENCY, 1500 ML FLUID RESTRICTION. FLUID RESTRICTION DUE TO LOW SODIUM (MF=461 ON 07/01). ENSURE BID TO PROMOTE WOUND HEALING. PROVIDES ADDITIONAL 700 KCALS, 40 G PROTEIN. INTAKE AT MEALS VARIABLE, 25-75%. FOLLOW FOR INTAKE AND WOUND.
[2022-07-01 11:38] VITALS: BP 95/54; PULSE 72; RESP 20; TEMP 36.3; O2SAT 96
[2022-07-01] MEDS: Insulin Lispro 100 UNIT/ML 3 ML VIAL SUBCUT ×2 (11:53→21:13)
--- NOTE | 2022-07-01 14:14 | PM.PNNEP ---
Subjective Subjective Date of Service: 07/01/22 Interval history: cc: fall, hypoxia interval history: not participating much Physical Exam Vital Signs: Vital Signs: Last Vital Signs Temp 97.4 F 07/01/22 11:38 Pulse 72 07/01/22 11:38 Resp 20 07/01/22 11:38 BP 95/54 L 07/01/22 11:38 Pulse Ox 96 07/01/22 11:38 O2 Del Method 07/01/22 11:38 O2 Flow Rate 1.0 06/19/22 07:49 BMI result Body Mass Index 26.6 Const: Other: Constitutional : Awake, interactive, not in distress Neck : Normal inspection, Supple Cardiovascular : Irregular irregular, no JVP, no lower extremity edema Respiratory : good bilateral air entry, no crackles, wheezes or rhonchi Gastrointestinal: soft, lax, Normal bowel sounds, Non tender Skin : Warm, Dry Neurological : Alert & oriented to self and place, No focal deficit Objective Data Labs CBC & Chem 7: 07/01/22 05:39 07/01/22 05:39 Labs: Laboratory Results - last 24 hr 06/30/22 06/30/22 07/01/22 15:28 19:53 05:39 WBC 9.2 RBC 5.05 Hgb 13.7 L Hct 41.3 L MCV 81.8 MCH 27.1 MCHC 33.2 RDW 14.8 Plt Count 273 MPV 8.0 L Absolute Nucleated RBC 0.000 Nucleated RBC % (auto) 0.0 Sodium Potassium Chloride Carbon Dioxide Anion Gap BUN Creatinine Estim Creat Clear Calc Estimated GFR POC Glucose 133 H 244 H Fasting Glucose Calcium 07/01/22 07/01/22 07/01/22 05:39 07:32 10:55 WBC RBC Hgb Hct MCV MCH MCHC RDW Plt Count MPV Absolute Nucleated RBC Nucleated RBC % (auto) Sodium 128 L Potassium 4.1 Chloride 96 Carbon Dioxide 22 Anion Gap 14 BUN 19 H Creatinine 0.63 Estim Creat Clear Calc 95.0 Estimated GFR > 60 POC Glucose 105 229 H Fasting Glucose 111 H D Calcium 8.3 L Microbiology Microbiology Results: Microbiology 06/15/22 15:00 Blood - Venous Blood Culture - Final No growth after 5 days. 06/15/22 15:00 Blood - Venous Blood Culture - Final No growth after 5 days. Procedures Date of Service Date of Service: 07/01/22 Assessment & Plan Assessment and plan (1) Hyponatremia: Status: Acute (2) Physical deconditioning: Status: Acute (3) Atrial fibrillation: Status: Acute (4) Cellulitis of right lower extremity: Status: Acute Plan 74M with Diabetes, hypertension, hyperlipidemia, chronic venous stasis dermatitis, presented the ED with mechanical fall, noted to have acute hypoxia. 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
--- NOTE | 2022-07-01 15:45 | MHC.CM.PN ---
EMR REVIEWED CM WILL CONTINUE TO FOLLOW FOR SAFE DISPO. [facility] IS STILL FOLLOWING HOWEVER NOT ABLE TO DO MORE IN WITH PT (MAX A OF 2 FOR BED MOBILITY) AND WILL NEED AUTH FROM [facility]
[2022-07-01 16:00] VITALS: BP 101/57; PULSE 81; RESP 18; TEMP 36.1; O2SAT 97
[2022-07-01 16:28] LABS: Glucose, Whole Blood 104 mg/dL (60-115)
[2022-07-01 19:12] VITALS: BP 117/55; PULSE 80; RESP 19; TEMP 36.1; O2SAT 95
[2022-07-01 19:39] LABS: Glucose, Whole Blood 165 mg/dL (60-115)
[2022-07-01] MEDS: Insulin Glargine,Hum.rec.anlog 100 UNIT/ML 10 ML VIAL 10 UNIT SUBCUT (21:13)
[2022-07-02] VITALS (7 sets, daily range): BP systolic 97–143; BP diastolic 52–72; PULSE 72–85; RESP 17–20; TEMP 36.2–37; O2SAT 94–98
[2022-07-02 05:44] LABS: Hematocrit 39.2 % (42.0-52.0); Hemoglobin 13.2 g/dl (14.0-18.0); Mean Corpuscular HGB Conc 33.7 g/dl (31.0-36.0); Mean Corpuscular Hemoglobin 27.6 pg (27.0-33.0); Platelet Count 233 X10*3/uL (160-400); Red Blood Count 4.78 X10*6/uL (4.60-5.80); Red Cell Distribution Width 14.9 % (11.0-16.0); White Blood Count 9.5 X10*3/uL (4.8-10.8)
[2022-07-02 06:04] LABS: Anion Gap 12 (12-20); Blood Urea Nitrogen 22 mg/dL (9-16); Calcium 8.5 mg/dL (8.4-10.2); Carbon Dioxide 25 mmol/L (22-29); Chloride 98 mmol/L (96-108); Creatinine Clr Calc Pharmacy 99.8; Estimated Glomerular Filt Rate > 60; Glucose Fasting 103 mg/dL (60-99); Potassium 3.9 mmol/L (3.3-5.1); Sodium 131 mmol/L (135-145)
[2022-07-02 07:34] LABS: Glucose, Whole Blood 93 mg/dL (60-115)
[2022-07-02] MEDS: Lidocaine 4 % Patch ADH..PATCH 1 PATCH TRANSDERMA (09:15)
[2022-07-02] MEDS: Urea 15 GM POWDER 30 GM PO (09:15)
[2022-07-02] MEDS: polyethylene glycoL 3350 17 GM POWD.PACK PO (09:15)
[2022-07-02] MEDS: Cholecalciferol (Vitamin D3) 25 MCG TABLET 50 MCG PO (09:16)
[2022-07-02] MEDS: amLODIPine Besylate 5 MG TABLET PO (09:16)
[2022-07-02] MEDS: Metoprolol Tartrate 50 MG TABLET 150 MG PO ×2 (09:16→20:35)
[2022-07-02] MEDS: hydrALAZINE HCl 25 MG TABLET PO ×2 (09:16→20:34)
[2022-07-02] MEDS: Docusate Sodium 100 MG CAPSULE PO ×2 (09:16→20:34)
[2022-07-02] MEDS: Insulin Glargine,Hum.rec.anlog 100 UNIT/ML 10 ML VIAL 20 UNIT SUBCUT (09:16)
[2022-07-02] MEDS: Losartan Potassium 25 MG TABLET PO (09:16)
[2022-07-02] MEDS: 0.9 % Sodium Chloride Flush 3 ML SYRINGE IVFLUSH ×3 (09:17→21:24)
--- NOTE | 2022-07-02 11:09 | PM.PNNEP ---
Subjective Subjective Date of Service: 07/03/22 Interval history: cc: fall, hypoxia interval history: not participating much Physical Exam Vital Signs: Vital Signs: Last Vital Signs Temp 98.0 F 07/02/22 07:37 Pulse 85 07/02/22 07:37 Resp 17 07/02/22 07:37 BP 143/72 H 07/02/22 07:37 Pulse Ox 98 07/02/22 07:37 O2 Del Method 07/02/22 07:37 O2 Flow Rate 1.0 06/19/22 07:49 BMI result Body Mass Index 26.6 Const: Other: Constitutional : Awake, interactive, not in distress Neck : Normal inspection, Supple Cardiovascular : Irregular irregular, no JVP, no lower extremity edema Respiratory : good bilateral air entry, no crackles, wheezes or rhonchi Gastrointestinal: soft, lax, Normal bowel sounds, Non tender Skin : Warm, Dry Neurological : Alert & oriented to self and place, No focal deficit Objective Data Labs CBC & Chem 7: 07/02/22 05:38 07/03/22 05:02 Labs: Laboratory Results - last 24 hr 07/01/22 07/01/22 07/02/22 16:18 19:15 05:38 WBC 9.5 RBC 4.78 Hgb 13.2 L Hct 39.2 L MCV 82.0 MCH 27.6 MCHC 33.7 RDW 14.9 Plt Count 233 MPV 8.0 L Absolute Nucleated RBC 0.000 Nucleated RBC % (auto) 0.0 Sodium Potassium Chloride Carbon Dioxide Anion Gap BUN Creatinine Estim Creat Clear Calc Estimated GFR POC Glucose 104 165 H Fasting Glucose Calcium 07/02/22 07/02/22 05:38 07:21 WBC RBC Hgb Hct MCV MCH MCHC RDW Plt Count MPV Absolute Nucleated RBC Nucleated RBC % (auto) Sodium 131 L Potassium 3.9 Chloride 98 Carbon Dioxide 25 Anion Gap 12 BUN 22 H Creatinine 0.60 Estim Creat Clear Calc 99.8 Estimated GFR > 60 POC Glucose 93 Fasting Glucose 103 H Calcium 8.5 Microbiology Microbiology Results: Microbiology 06/15/22 15:00 Blood - Venous Blood Culture - Final No growth after 5 days. 06/15/22 15:00 Blood - Venous Blood Culture - Final No growth after 5 days. Procedures Date of Service Date of Service: 07/02/22 Assessment & Plan Assessment and plan (1) Hyponatremia: Status: Acute (2) Physical deconditioning: Status: Acute (3) Atrial fibrillation: Status: Acute (4) Cellulitis of right lower extremity: Status: Acute Plan 74M with Diabetes, hypertension, hyperlipidemia, chronic venous stasis dermatitis, presented the ED with mechanical fall, noted to have acute hypoxia. 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
[2022-07-02 11:46] LABS: Glucose, Whole Blood 236 mg/dL (60-115)
--- NOTE | 2022-07-02 11:55 | MHC.CM.PN ---
PT COMPLETED HCP ON ADMIT NAMING KATHLEEN BAUTISTA [phone], CM ATTEMPTED TO CONTACT KATHLEEN AT 11:54AM, DETAILED MESSAGE LEFT W/CM CONTACT INFO. CM WILL FAX REFERRAL TO [facility] IS NOW FOR LTC PLACEMENT.
[2022-07-02] MEDS: Tamsulosin HCL 0.4 MG CAPSULE 0.8 MG PO (12:15)
[2022-07-02] MEDS: Insulin Lispro 100 UNIT/ML 3 ML VIAL SUBCUT ×3 (12:15→20:34)
--- NOTE | 2022-07-02 12:42 | HO.PM.IMPN ---
Subjective Subjective Date of Service: 07/02/22 Interval History: The patient was seen and evaluated this morning Laying in bed, less alert and interactive Sodium dropped down to 131 decrease physical activity No reported other overnight events. Systemic review: No fever, chills or weakness Denies any chest pain, palpitation No shortness of breath or coughing No abdominal pain, nausea or vomiting No urinary symptoms No reported rash Physical Exam Vital Signs: Vital Signs: Last Vital Signs Temp 98.6 F 07/02/22 12:00 Pulse 75 07/02/22 12:00 Resp 18 07/02/22 12:00 BP 136/58 L 07/02/22 12:00 Pulse Ox 97 07/02/22 12:00 O2 Del Method 07/02/22 12:00 O2 Flow Rate 1.0 06/19/22 07:49 BMI result Body Mass Index 26.6 Const: Other: Constitutional : Awake, interactive, not in distress Neck : Normal inspection, Supple Cardiovascular : Irregular irregular, no JVP, no lower extremity edema Respiratory : good bilateral air entry, no crackles, wheezes or rhonchi Gastrointestinal: soft, lax, Normal bowel sounds, Non tender Skin : Warm, Dry Neurological : Alert & oriented to self and place, No focal deficit Objective Data Active Medications Acetaminophen (Acetaminophen 325 Mg Tablet) 650 mg PO Q6H PRN PRN Reason: Pain, Mild (Pain Scale 1-3) Last Admin: 07/01/22 09:52 Dose: 650 mg Documented By: ELVIRA Amlodipine Besylate (Amlodipine Besylate 5 Mg Tablet) 5 mg PO DAILY [facility]; Protocol Last Admin: 07/02/22 09:16 Dose: 5 mg Documented By: VY Dextrose (Dextrose 50 % 25 Gm/50 Ml Syringe) 25 gm IVPUSH Q15M PRN; Protocol PRN Reason: per Hypoglycemia Standing Ord. Docusate Sodium (Docusate Sodium 100 Mg Capsule) 100 mg PO BID [facility] Last Admin: 07/02/22 09:16 Dose: 100 mg Documented By: VY Glucose (Glucose Gel 15 Gm Gel..Gram.) 15 gm PO Q15M PRN; Protocol PRN Reason: per Hypoglycemia Standing Ord. Hydralazine HCl (Hydralazine Hcl 25 Mg Tablet) 25 mg PO BID [facility]; Protocol Last Admin: 07/02/22 09:16 Dose: 25 mg Documented By: VY Insulin Glargine (Insulin Glargine,Hum.Rec.Anlog 100 Unit/Ml 10 Ml Vial) 20 unit SUBCUT DAILY@0730 [facility] Last Admin: 07/02/22 09:16 Dose: 20 unit Documented By: VY Insulin Glargine (Insulin Glargine,Hum.Rec.Anlog 100 Unit/Ml 10 Ml Vial) 10 unit SUBCUT BEDTIME [facility] Last Admin: 07/01/22 21:13 Dose: 10 unit Documented By: TOY Insulin Human Lispro (Insulin Lispro 100 Unit/Ml 3 Ml Vial) 0 unit SUBCUT QIDACHS [facility]; Protocol Last Admin: 07/02/22 12:15 Dose: 4 unit Documented By: VY Lidocaine (Lidocaine 4 % Patch Adh..Patch) 1 patch TRANSDERMA DAILY [facility]; Protocol Last Admin: 07/02/22 09:15 Dose: 1 patch Documented By: VY Losartan Potassium (Losartan Potassium 25 Mg Tablet) 25 mg PO DAILY [facility]; Protocol Last Admin: 07/02/22 09:16 Dose: 25 mg Documented By: VY Metoprolol Tartrate (Metoprolol Tartrate 50 Mg Tablet) 150 mg PO BID [facility]; Protocol Last Admin: 07/02/22 09:16 Dose: 150 mg Documented By: VY Ondansetron HCl (Ondansetron Hcl 4 Mg/2 Ml Vial) 4 mg IVPUSH Q8H PRN PRN Reason: Nausea and Vomiting Pharmacy Consult (Consult Rx Perform Med Rec) 1 each MISCELLANE ONCE PRN PRN Reason: Consult order Polyethylene Glycol (Polyethylene Glycol 3350 17 Gm Powd.Pack) 17 gm PO DAILY PRN PRN Reason: constipation Last Admin: 06/28/22 22:01 Dose: 17 gm Documented By: ADRIANA Polyethylene Glycol (Polyethylene Glycol 3350 17 Gm Powd.Pack) 17 gm PO DAILY [facility] Last Admin: 07/02/22 09:15 Dose: 17 gm Documented By: VY Sodium Chloride (0.9 % Sodium Chloride Flush 3 Ml Syringe) 3 ml IVFLUSH QSHIFT [facility] Last Admin: 07/02/22 09:17 Dose: 3 ml Documented By: VY Tamsulosin HCl (Tamsulosin Hcl 0.4 Mg Capsule) 0.8 mg PO DAILY [facility] Last Admin: 07/02/22 12:15 Dose: 0.8 mg Documented By: VY Urea (Urea 15 Gm Powder) 30 gm PO DAILY [facility] Last Admin: 07/02/22 09:15 Dose: 30 gm Documented By: VY Vitamin D (Cholecalciferol (Vitamin D3) 25 Mcg Tablet) 50 mcg PO DAILY [facility] Last Admin: 07/02/22 09:16 Dose: 50 mcg Documented By: VY Labs CBC & Chem 7: 07/02/22 05:38 07/02/22 05:38 Labs: Laboratory Results - last 24 hr 07/01/22 07/01/22 07/02/22 16:18 19:15 05:38 MCV 82.0 MCH 27.6 MCHC 33.7 RDW 14.9 Plt Count 233 MPV 8.0 L Absolute Nucleated RBC 0.000 Nucleated RBC % (auto) 0.0 Anion Gap Estim Creat Clear Calc Estimated GFR POC Glucose 104 165 H Fasting Glucose Calcium 07/02/22 07/02/22 07/02/22 05:38 07:21 11:27 MCV MCH MCHC RDW Plt Count MPV Absolute Nucleated RBC Nucleated RBC % (auto) Anion Gap 12 Estim Creat Clear Calc 99.8 Estimated GFR > 60 POC Glucose 93 236 H Fasting Glucose 103 H Calcium 8.5 Assessment and Plan (1) Traumatic subarachnoid hemorrhage: Status: Acute (2) Cerebral contusion: Status: Acute (3) Physical deconditioning: Status: Acute (4) Hyponatremia: Status: Acute Plan 74M with pmh Diabetes, hypertension, hyperlipidemia, chronic venous stasis dermatitis, presented the ED with mechanical fall, noted to have acute hypoxia. traumatic subarachnoid hemorrhage hold eliquis for 2 weeks (restart 07/10/22) stable Acute hypoxic respiratory failure secondary to pneumonia Finished total 10 days of Abx weaned of O2, now on RA urinary retention bladder scan q8, intermittent cath mechanical fall PT finding difficulties ambulating him with increase pain and stiffness awaiting bed offer and better pain control, continue oxycodone laxative for constipation Generalized weakness MRI has concern over possible NPH, neuro appreciated, not clinically NPH Acute hyponatremia c/w SIADH, fluid restrict, monitor New onset atrial fibrillation with RVR Rate controlled metoprolol 150mg bid Echo showing EF greater than 70% Cardiology input appreciated restart eliquis 08/10/21 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
--- NOTE | 2022-07-02 15:49 | PC.NURSE ---
Alert and responsive. VSS, afebrile, no acute resp. distress noted. New order to insert roberts cath for urinary retention, patient tolerated procedure well. F/c patent, draining clear yellow urine. Awaiting placement for short term rehab. Will continue to monitor and treat per plan of care.
[2022-07-02 15:55] LABS: Glucose, Whole Blood 235 mg/dL (60-115)
[2022-07-02 19:33] LABS: Glucose, Whole Blood 294 mg/dL (60-115)
[2022-07-02] MEDS: Insulin Glargine,Hum.rec.anlog 100 UNIT/ML 10 ML VIAL 10 UNIT SUBCUT (20:34)
[2022-07-03] VITALS: BP 98/53; PULSE 83; RESP 20; TEMP 37.1; O2SAT 96
[2022-07-03 04:00] VITALS: BP 113/57; PULSE 85; RESP 18; TEMP 36.7; O2SAT 96
[2022-07-03 06:52] LABS: Anion Gap 12 (12-20); Blood Urea Nitrogen 33 mg/dL (9-16); Calcium 8.5 mg/dL (8.4-10.2); Carbon Dioxide 27 mmol/L (22-29); Chloride 97 mmol/L (96-108); Creatinine Clr Calc Pharmacy 92.1; Estimated Glomerular Filt Rate > 60; Glucose Random 81 mg/dL (60-115); Potassium 3.9 mmol/L (3.3-5.1); Sodium 132 mmol/L (135-145)
[2022-07-03 07:29] VITALS: BP 132/64; PULSE 74; RESP 18; TEMP 36.4; O2SAT 95
[2022-07-03 07:35] LABS: Glucose, Whole Blood 97 mg/dL (60-115)
--- NOTE | 2022-07-03 09:29 | MHC.CM.PN ---
CM RECEIVED MESSAGES AT 5PM AND EARLY THIS AM X2 FROM PTS COUSIN'S /HCP MARYA TYLERBAUTISTA [phone], MARYA REPORTS PT ONLY HAS ONE OTHER FAMILY MEMBER, A BROTHER IN [place] WHO HE HASN'T SPOKEN TO IN 40YRS. MARYA UPDATED ON ANTICIPATED NEED FOR PT TO GO TO LTC AND WILL NEED ASSISTANCE W/[facility] AND GATHERING DOCUMENTS ETC, MARYA REPORTS HE IS WILLING TO BECOME THE POA AND ASSIST PT W/PROCESS. KP SPOKE TO FS AND AND COMPLIANCE REVIEW OFFICER TO COORDINATE TIME FOR MARYA TO COME IN AND PER [facility] SHE CAN BE ON UNIT AT 1:30PM. CM HAS ATTEMPTED TO CALL MARYA BACK AND LET HIM KNOW AT TIME OF THIS NOTE, NO ANSWER AND DETAILED MESSAGE LEFT. FS TO COME TO UNIT AT 10:00AM TO MEET W/PT WELL. CM WILL CONT TO FOLLOW D/C NEEDS.
[2022-07-03] MEDS: Urea 15 GM POWDER 30 GM PO (09:34)
[2022-07-03] MEDS: polyethylene glycoL 3350 17 GM POWD.PACK PO (09:36)
[2022-07-03] MEDS: Insulin Glargine,Hum.rec.anlog 100 UNIT/ML 10 ML VIAL 20 UNIT SUBCUT (09:36)
[2022-07-03] MEDS: amLODIPine Besylate 5 MG TABLET PO (09:37)
[2022-07-03] MEDS: Docusate Sodium 100 MG CAPSULE PO ×2 (09:37→21:53)
[2022-07-03] MEDS: Tamsulosin HCL 0.4 MG CAPSULE 0.8 MG PO (09:37)
[2022-07-03] MEDS: Cholecalciferol (Vitamin D3) 25 MCG TABLET 50 MCG PO (09:37)
[2022-07-03] MEDS: hydrALAZINE HCl 25 MG TABLET PO ×2 (09:37→21:53)
[2022-07-03] MEDS: Losartan Potassium 25 MG TABLET PO (09:37)
[2022-07-03] MEDS: Metoprolol Tartrate 50 MG TABLET 150 MG PO ×2 (09:47→21:53)
--- NOTE | 2022-07-03 11:00 | P.PNIM_ITS ---
Subjective Subjective Date of Service: 07/03/22 Interval History: Doing well, eating well. N new issues Physical Exam Vital Signs: Vital Signs: Last Vital Signs Temp 97.5 F 07/03/22 07:29 Pulse 74 07/03/22 07:29 Resp 18 07/03/22 07:29 BP 132/64 07/03/22 07:29 Pulse Ox 95 07/03/22 07:29 O2 Del Method 07/03/22 07:29 O2 Flow Rate 1.0 06/19/22 07:49 BMI result Body Mass Index 26.6 Const: Other: Constitutional : Awake, interactive, not in distress Neck : Normal inspection, Supple Cardiovascular : Irregular irregular, no JVP, no lower extremity edema Respiratory : good bilateral air entry, no crackles, wheezes or rhonchi Gastrointestinal: soft, lax, Normal bowel sounds, Non tender Skin : Warm, Dry Neurological : Alert & oriented to self and place, No focal deficit Objective Data Active Medications Acetaminophen (Acetaminophen 325 Mg Tablet) 650 mg PO Q6H PRN PRN Reason: Pain, Mild (Pain Scale 1-3) Last Admin: 07/01/22 09:52 Dose: 650 mg Documented By: ELVIRA Amlodipine Besylate (Amlodipine Besylate 5 Mg Tablet) 5 mg PO DAILY [facility]; Protocol Last Admin: 07/03/22 09:37 Dose: 5 mg Documented By: JANINE Dextrose (Dextrose 50 % 25 Gm/50 Ml Syringe) 25 gm IVPUSH Q15M PRN; Protocol PRN Reason: per Hypoglycemia Standing Ord. Docusate Sodium (Docusate Sodium 100 Mg Capsule) 100 mg PO BID [facility] Last Admin: 07/03/22 09:37 Dose: 100 mg Documented By: JANINE Glucose (Glucose Gel 15 Gm Gel..Gram.) 15 gm PO Q15M PRN; Protocol PRN Reason: per Hypoglycemia Standing Ord. Hydralazine HCl (Hydralazine Hcl 25 Mg Tablet) 25 mg PO BID [facility]; Protocol Last Admin: 07/03/22 09:37 Dose: 25 mg Documented By: JANINE Insulin Glargine (Insulin Glargine,Hum.Rec.Anlog 100 Unit/Ml 10 Ml Vial) 20 unit SUBCUT DAILY@0730 [facility] Last Admin: 07/03/22 09:36 Dose: 20 unit Documented By: JANINE Insulin Glargine (Insulin Glargine,Hum.Rec.Anlog 100 Unit/Ml 10 Ml Vial) 10 unit SUBCUT BEDTIME [facility] Last Admin: 07/02/22 20:34 Dose: 10 unit Documented By: BRITTANY Insulin Human Lispro (Insulin Lispro 100 Unit/Ml 3 Ml Vial) 0 unit SUBCUT QIDACHS [facility]; Protocol Last Admin: 07/03/22 07:50 Dose: Not Given Documented By: JANINE Non-Admin Reason: No Insulin Coverage Lidocaine (Lidocaine 4 % Patch Adh..Patch) 1 patch TRANSDERMA DAILY [facility]; Protocol Last Admin: 07/03/22 09:43 Dose: Not Given Documented By: JANINE Non-Admin Reason: Patient Refused Losartan Potassium (Losartan Potassium 25 Mg Tablet) 25 mg PO DAILY [facility]; Protocol Last Admin: 07/03/22 09:37 Dose: 25 mg Documented By: JANINE Metoprolol Tartrate (Metoprolol Tartrate 50 Mg Tablet) 150 mg PO BID [facility]; Protocol Last Admin: 07/03/22 09:47 Dose: 150 mg Documented By: JANINE Ondansetron HCl (Ondansetron Hcl 4 Mg/2 Ml Vial) 4 mg IVPUSH Q8H PRN PRN Reason: Nausea and Vomiting Pharmacy Consult (Consult Rx Perform Med Rec) 1 each MISCELLANE ONCE PRN PRN Reason: Consult order Polyethylene Glycol (Polyethylene Glycol 3350 17 Gm Powd.Pack) 17 gm PO DAILY PRN PRN Reason: constipation Last Admin: 06/28/22 22:01 Dose: 17 gm Documented By: ADRIANA Polyethylene Glycol (Polyethylene Glycol 3350 17 Gm Powd.Pack) 17 gm PO DAILY [facility] Last Admin: 07/03/22 09:36 Dose: 17 gm Documented By: JANINE Sodium Chloride (0.9 % Sodium Chloride Flush 3 Ml Syringe) 3 ml IVFLUSH QSHIFT [facility] Last Admin: 07/03/22 09:38 Dose: Not Given Documented By: JANINE Non-Admin Reason: No Access Tamsulosin HCl (Tamsulosin Hcl 0.4 Mg Capsule) 0.8 mg PO DAILY [facility] Last Admin: 11/30/22 09:37 Dose: 0.8 mg Documented By: JANINE Urea (Urea 15 Gm Powder) 30 gm PO DAILY [facility] Last Admin: 07/03/22 09:34 Dose: 30 gm Documented By: JANINE Vitamin D (Cholecalciferol (Vitamin D3) 25 Mcg Tablet) 50 mcg PO DAILY [facility] Last Admin: 07/03/22 09:37 Dose: 50 mcg Documented By: JANINE Labs CBC & Chem 7: 07/02/22 05:38 07/03/22 05:02 Labs: Laboratory Results - last 24 hr 07/02/22 07/02/22 07/02/22 11:27 15:38 19:21 Anion Gap Estim Creat Clear Calc Estimated GFR POC Glucose 236 H 235 H 294 H Random Glucose Calcium 07/03/22 07/03/22 05:02 07:28 Anion Gap 12 Estim Creat Clear Calc 92.1 Estimated GFR > 60 POC Glucose 97 Random Glucose 81 Calcium 8.5 Assessment and Plan (1) Traumatic subarachnoid hemorrhage: Status: Acute (2) Cerebral contusion: Status: Acute (3) Physical deconditioning: Status: Acute (4) Hyponatremia: Status: Acute Plan 74M with pmh Diabetes, hypertension, hyperlipidemia, chronic venous stasis dermatitis, presented the ED with mechanical fall, noted to have acute hypoxia. 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, fluid restrict, monitor New onset atrial fibrillation with RVR Rate controlled metoprolol 150mg bid Echo showing EF greater than 70% Cardiology input appreciated restart eliquis 08/10/21 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
[2022-07-03 11:14] VITALS: BP 100/62; PULSE 73; RESP 18; TEMP 36.4; O2SAT 97
--- NOTE | 2022-07-03 11:20 | PM.PNNEP ---
Subjective Subjective Date of Service: 07/03/22 Interval history: Doing well, eating well. N new issues Physical Exam Vital Signs: Vital Signs: Last Vital Signs Temp 97.6 F 07/03/22 11:14 Pulse 73 07/03/22 11:14 Resp 18 07/03/22 11:14 BP 100/62 07/03/22 11:14 Pulse Ox 97 07/03/22 11:14 O2 Del Method 07/03/22 11:14 O2 Flow Rate 1.0 06/19/22 07:49 BMI result Body Mass Index 26.6 Const: Other: Constitutional : Awake, interactive, not in distress Neck : Normal inspection, Supple Cardiovascular : Irregular irregular, no JVP, no lower extremity edema Respiratory : good bilateral air entry, no crackles, wheezes or rhonchi Gastrointestinal: soft, lax, Normal bowel sounds, Non tender Skin : Warm, Dry Neurological : Alert & oriented to self and place, No focal deficit Objective Data Labs CBC & Chem 7: 07/02/22 05:38 07/03/22 05:02 Labs: Laboratory Results - last 24 hr 07/02/22 07/02/22 07/02/22 11:27 15:38 19:21 Sodium Potassium Chloride Carbon Dioxide Anion Gap BUN Creatinine Estim Creat Clear Calc Estimated GFR POC Glucose 236 H 235 H 294 H Random Glucose Calcium 07/03/22 07/03/22 05:02 07:28 Sodium 132 L Potassium 3.9 Chloride 97 Carbon Dioxide 27 Anion Gap 12 BUN 33 H Creatinine 0.65 Estim Creat Clear Calc 92.1 Estimated GFR > 60 POC Glucose 97 Random Glucose 81 Calcium 8.5 Microbiology Microbiology Results: Microbiology 06/15/22 15:00 Blood - Venous Blood Culture - Final No growth after 5 days. 06/15/22 15:00 Blood - Venous Blood Culture - Final No growth after 5 days. Procedures Date of Service Date of Service: 07/03/22 Assessment & Plan Assessment and plan (1) Hyponatremia: Status: Acute (2) Physical deconditioning: Status: Acute (3) Atrial fibrillation: Status: Acute (4) Cellulitis of right lower extremity: Status: Acute Plan 74M with Diabetes, hypertension, hyperlipidemia, chronic venous stasis dermatitis, presented the ED with mechanical fall, noted to have acute hypoxia. 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
[2022-07-03 11:34] LABS: Glucose, Whole Blood 323 mg/dL (60-115)
[2022-07-03] MEDS: Insulin Lispro 100 UNIT/ML 3 ML VIAL SUBCUT ×2 (13:06→15:59)
--- NOTE | 2022-07-03 14:07 | MHC.CLN ---
F/U SKIN WITH STAGE II TO COCCYX. DIET=DIABETIC 2000 KCALS, NDD3 CONSISTENCY, 1500 ML FLUID RESTRICTION. FLUID RESTRICTION DUE TO LOW SODIUM (QL=800 ON 07/03). ENSURE BID TO PROMOTE WOUND HEALING. PROVIDES ADDITIONAL 700 KCALS, 40 G PROTEIN. INTAKE AT MEALS VARIABLE, USUALLY 50-100%. REQUIRES 1:1 FEEDING. FOLLOW FOR INTAKE AND WOUND.
[2022-07-03 15:36] VITALS: BP 114/56; PULSE 83; RESP 17; TEMP 36.3; O2SAT 97
--- NOTE | 2022-07-03 16:08 | MHC.CM.PN ---
CM MET W/PT, HCP THONY WANG AND FS AT BEDSIDE, PT VERBALIZZES UNDERSTANDING AND ABLE TO SIGN POA NAMING HIS HCP KATHLEEN BAUTISTA, KATHY COMPLETING QUESTIONNAIRE & DOCUMENTS W/PT AND KATHLEEN PT ALSO SIGNED MH FINANCIAL INFO REQUEST FORM SO WILL BE ABLE TO ACCESS ACCOUNTS FOR PTS. [facility] AND KATHLEEN WAS GIVEN ORIGINAL AND ONE COPY.
[2022-07-03 18:50] LABS: Glucose, Whole Blood 240 mg/dL (60-115)
[2022-07-03 19:25] VITALS: BP 116/59; PULSE 90; RESP 18; TEMP 36.5; O2SAT 97
[2022-07-03 19:31] LABS: Glucose, Whole Blood 123 mg/dL (60-115)
[2022-07-03] MEDS: Insulin Glargine,Hum.rec.anlog 100 UNIT/ML 10 ML VIAL 10 UNIT SUBCUT (21:53)
[2022-07-04] VITALS (7 sets, daily range): BP systolic 94–119; BP diastolic 54–69; PULSE 74–89; RESP 16–18; TEMP 36.1–36.8; O2SAT 95–98
[2022-07-04] MEDS: 0.9 % Sodium Chloride Flush 3 ML SYRINGE IVFLUSH ×3 (00:09→16:46)
[2022-07-04 08:08] LABS: Glucose, Whole Blood 86 mg/dL (60-115)
--- NOTE | 2022-07-04 08:59 | P.PNIM_ITS ---
Subjective Subjective Date of Service: 07/04/22 Interval History: Comfortable, resting no new issues Physical Exam Vital Signs: Vital Signs: Last Vital Signs Temp 97.8 F 07/04/22 08:00 Pulse 89 07/04/22 08:00 Resp 18 07/04/22 08:00 BP 116/66 07/04/22 08:00 Pulse Ox 98 07/04/22 08:00 O2 Del Method 07/04/22 08:00 O2 Flow Rate 1.0 06/19/22 07:49 BMI result Body Mass Index 26.6 Const: Other: Constitutional : Awake, interactive, not in distress Neck : Normal inspection, Supple Cardiovascular : Irregular irregular, no JVP, no lower extremity edema Respiratory : good bilateral air entry, no crackles, wheezes or rhonchi Gastrointestinal: soft, lax, Normal bowel sounds, Non tender Skin : Warm, Dry Neurological : Alert & oriented to self and place, No focal deficit Objective Data Active Medications Acetaminophen (Acetaminophen 325 Mg Tablet) 650 mg PO Q6H PRN PRN Reason: Pain, Mild (Pain Scale 1-3) Last Admin: 07/01/22 09:52 Dose: 650 mg Documented By: ELVIRA Amlodipine Besylate (Amlodipine Besylate 5 Mg Tablet) 5 mg PO DAILY [facility]; Protocol Last Admin: 07/03/22 09:37 Dose: 5 mg Documented By: JANINE Dextrose (Dextrose 50 % 25 Gm/50 Ml Syringe) 25 gm IVPUSH Q15M PRN; Protocol PRN Reason: per Hypoglycemia Standing Ord. Docusate Sodium (Docusate Sodium 100 Mg Capsule) 100 mg PO BID [facility] Last Admin: 07/03/22 21:53 Dose: 100 mg Documented By: JANICE Glucose (Glucose Gel 15 Gm Gel..Gram.) 15 gm PO Q15M PRN; Protocol PRN Reason: per Hypoglycemia Standing Ord. Hydralazine HCl (Hydralazine Hcl 25 Mg Tablet) 25 mg PO BID [facility]; Protocol Last Admin: 07/03/22 21:53 Dose: 25 mg Documented By: JANICE Insulin Glargine (Insulin Glargine,Hum.Rec.Anlog 100 Unit/Ml 10 Ml Vial) 20 unit SUBCUT DAILY@0730 [facility] Last Admin: 07/03/22 09:36 Dose: 20 unit Documented By: JANINE Insulin Glargine (Insulin Glargine,Hum.Rec.Anlog 100 Unit/Ml 10 Ml Vial) 10 unit SUBCUT BEDTIME [facility] Last Admin: 07/03/22 21:53 Dose: 10 unit Documented By: JANICE Insulin Human Lispro (Insulin Lispro 100 Unit/Ml 3 Ml Vial) 0 unit SUBCUT QIDACHS [facility]; Protocol Last Admin: 07/04/22 08:12 Dose: Not Given Documented By: OSMEL Non-Admin Reason: No Insulin Coverage Lidocaine (Lidocaine 4 % Patch Adh..Patch) 1 patch TRANSDERMA DAILY [facility]; Protocol Last Admin: 07/03/22 09:43 Dose: Not Given Documented By: JANINE Non-Admin Reason: Patient Refused Losartan Potassium (Losartan Potassium 25 Mg Tablet) 25 mg PO DAILY [facility]; Protocol Last Admin: 07/03/22 09:37 Dose: 25 mg Documented By: JANINE Metoprolol Tartrate (Metoprolol Tartrate 50 Mg Tablet) 150 mg PO BID [facility]; Protocol Last Admin: 07/03/22 21:53 Dose: 150 mg Documented By: JANICE Ondansetron HCl (Ondansetron Hcl 4 Mg/2 Ml Vial) 4 mg IVPUSH Q8H PRN PRN Reason: Nausea and Vomiting Pharmacy Consult (Consult Rx Perform Med Rec) 1 each MISCELLANE ONCE PRN PRN Reason: Consult order Polyethylene Glycol (Polyethylene Glycol 3350 17 Gm Powd.Pack) 17 gm PO DAILY PRN PRN Reason: constipation Last Admin: 06/28/22 22:01 Dose: 17 gm Documented By: ADRIANA Polyethylene Glycol (Polyethylene Glycol 3350 17 Gm Powd.Pack) 17 gm PO DAILY [facility] Last Admin: 07/03/22 09:36 Dose: 17 gm Documented By: JANINE Sodium Chloride (0.9 % Sodium Chloride Flush 3 Ml Syringe) [facility] Last Admin: 07/04/22 00:09 Dose: 3 ml Documented By: JANICE Tamsulosin HCl (Tamsulosin Hcl 0.4 Mg Capsule) 0.8 mg PO DAILY [facility] Last Admin: 07/03/22 09:37 Dose: 0.8 mg Documented By: JANINE Urea (Urea 15 Gm Powder) 30 gm PO DAILY [facility] Last Admin: 07/03/22 09:34 Dose: 30 gm Documented By: JANINE Vitamin D (Cholecalciferol (Vitamin D3) 25 Mcg Tablet) 50 mcg PO DAILY [facility] Last Admin: 07/03/22 09:37 Dose: 50 mcg Documented By: JANINE Labs CBC & Chem 7: 07/02/22 05:38 07/03/22 05:02 Labs: Laboratory Results - last 24 hr 07/03/22 07/03/22 07/03/22 11:12 15:39 19:27 POC Glucose 323 H 240 H 123 H 07/04/22 07:42 POC Glucose 86 Assessment and Plan (1) Traumatic subarachnoid hemorrhage: Status: Acute (2) Cerebral contusion: Status: Acute (3) Physical deconditioning: Status: Acute (4) Hyponatremia: Status: Acute Plan 74M with pmh Diabetes, hypertension, hyperlipidemia, chronic venous stasis dermatitis, presented the ED with mechanical fall, noted to have acute hypoxia. 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, fluid restrict, monitor New onset atrial fibrillation with RVR Rate controlled metoprolol 150mg bid Echo showing EF greater than 70% Cardiology input appreciated restart eliquis 08/10/21 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
[2022-07-04] MEDS: Tamsulosin HCL 0.4 MG CAPSULE 0.8 MG PO (09:44)
[2022-07-04] MEDS: Cholecalciferol (Vitamin D3) 25 MCG TABLET 50 MCG PO (09:44)
[2022-07-04] MEDS: Docusate Sodium 100 MG CAPSULE PO ×2 (09:47→21:05)
[2022-07-04] MEDS: Metoprolol Tartrate 50 MG TABLET 150 MG PO ×2 (09:47→21:05)
[2022-07-04] MEDS: Losartan Potassium 25 MG TABLET PO (09:48)
[2022-07-04] MEDS: polyethylene glycoL 3350 17 GM POWD.PACK PO (09:48)
[2022-07-04] MEDS: Urea 15 GM POWDER 30 GM PO (09:48)
[2022-07-04] MEDS: hydrALAZINE HCl 25 MG TABLET PO ×2 (09:48→21:05)
[2022-07-04] MEDS: amLODIPine Besylate 5 MG TABLET PO (09:48)
--- NOTE | 2022-07-04 11:12 | PM.PNNEP ---
Subjective Subjective Date of Service: 07/15/22 Interval history: Comfortable, resting no new issues Physical Exam Vital Signs: Vital Signs: Last Vital Signs Temp 97.8 F 07/04/22 08:00 Pulse 89 07/04/22 08:00 Resp 18 07/04/22 08:00 BP 116/66 07/04/22 08:00 Pulse Ox 98 07/04/22 08:00 O2 Del Method 07/04/22 08:00 O2 Flow Rate 1.0 06/19/22 07:49 BMI result Body Mass Index 26.6 Const: Other: Constitutional : Awake, interactive, not in distress Neck : Normal inspection, Supple Cardiovascular : Irregular irregular, no JVP, no lower extremity edema Respiratory : good bilateral air entry, no crackles, wheezes or rhonchi Gastrointestinal: soft, lax, Normal bowel sounds, Non tender Skin : Warm, Dry Neurological : Alert & oriented to self and place, No focal deficit Objective Data Labs CBC & Chem 7: 07/11/22 05:16 07/11/22 05:16 Labs: Laboratory Results - last 24 hr 07/03/22 07/03/22 07/03/22 11:12 15:39 19:27 POC Glucose 323 H 240 H 123 H 07/04/22 07:42 POC Glucose 86 Microbiology Microbiology Results: Microbiology 06/15/22 15:00 Blood - Venous Blood Culture - Final No growth after 5 days. 06/15/22 15:00 Blood - Venous Blood Culture - Final No growth after 5 days. Procedures Date of Service Date of Service: 07/04/22 Assessment & Plan Assessment and plan (1) Hyponatremia: Status: Acute (2) Physical deconditioning: Status: Acute (3) Atrial fibrillation: Status: Acute (4) Cellulitis of right lower extremity: Status: Acute Plan 74M with Diabetes, hypertension, hyperlipidemia, chronic venous stasis dermatitis, presented the ED with mechanical fall, noted to have acute hypoxia. 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
[2022-07-04 11:36] LABS: Glucose, Whole Blood 208 mg/dL (60-115)
[2022-07-04] MEDS: Insulin Glargine,Hum.rec.anlog 100 UNIT/ML 10 ML VIAL 20 UNIT SUBCUT (12:22)
[2022-07-04] MEDS: Insulin Lispro 100 UNIT/ML 3 ML VIAL SUBCUT ×2 (12:23→16:46)
[2022-07-04 15:50] LABS: Glucose, Whole Blood 229 mg/dL (60-115)
[2022-07-04 19:48] LABS: Glucose, Whole Blood 138 mg/dL (60-115)
[2022-07-04] MEDS: Insulin Glargine,Hum.rec.anlog 100 UNIT/ML 10 ML VIAL 10 UNIT SUBCUT (21:05)
[2022-07-05] MEDS: 0.9 % Sodium Chloride Flush 3 ML SYRINGE IVFLUSH ×4 (00:15→20:27)
[2022-07-05 03:53] VITALS: BP 112/53; PULSE 81; RESP 18; TEMP 37.1; O2SAT 96
[2022-07-05 07:45] LABS: Glucose, Whole Blood 132 mg/dL (60-115)
[2022-07-05 07:56] VITALS: BP 132/90; PULSE 90; RESP 19; TEMP 37.1; O2SAT 90
[2022-07-05] MEDS: Urea 15 GM POWDER 30 GM PO (08:13)
[2022-07-05] MEDS: polyethylene glycoL 3350 17 GM POWD.PACK PO (08:13)
[2022-07-05] MEDS: Docusate Sodium 100 MG CAPSULE PO ×2 (08:14→20:23)
[2022-07-05] MEDS: amLODIPine Besylate 5 MG TABLET PO (08:14)
[2022-07-05] MEDS: hydrALAZINE HCl 25 MG TABLET PO ×2 (08:14→20:23)
[2022-07-05] MEDS: Tamsulosin HCL 0.4 MG CAPSULE 0.8 MG PO (08:14)
[2022-07-05] MEDS: Losartan Potassium 25 MG TABLET PO (08:14)
[2022-07-05] MEDS: Metoprolol Tartrate 50 MG TABLET 150 MG PO ×2 (08:14→20:23)
[2022-07-05] MEDS: Cholecalciferol (Vitamin D3) 25 MCG TABLET 50 MCG PO (08:14)
[2022-07-05] MEDS: Insulin Glargine,Hum.rec.anlog 100 UNIT/ML 10 ML VIAL 20 UNIT SUBCUT (08:15)
--- NOTE | 2022-07-05 08:44 | HO.PM.IMPN ---
Subjective Subjective Date of Service: 07/06/22 Interval History: Comfortable, resting comfortably Review of Systems no fever or chills, Physical Exam Vital Signs: Vital Signs: Last Vital Signs Temp 98.7 F 07/05/22 07:56 Pulse 90 07/05/22 07:56 Resp 19 07/05/22 07:56 BP 132/90 H 07/05/22 07:56 Pulse Ox 90 L 07/05/22 07:56 O2 Del Method 07/05/22 07:56 O2 Flow Rate 1.0 06/19/22 07:49 BMI result Body Mass Index 26.6 Const: Other: Constitutional : Awake, interactive, not in distress Neck : Normal inspection, Supple Cardiovascular : Irregular irregular, no JVP, no lower extremity edema Respiratory : good bilateral air entry, no crackles, wheezes or rhonchi Gastrointestinal: soft, lax, Normal bowel sounds, Non tender Skin : decub ulcer 07/06 Neurological : Alert & oriented to self and place, No focal deficit Objective Data Active Medications Acetaminophen (Acetaminophen 325 Mg Tablet) 650 mg PO Q6H PRN PRN Reason: Pain, Mild (Pain Scale 1-3) Last Admin: 07/01/22 09:52 Dose: 650 mg Documented By: ELVIRA Amlodipine Besylate (Amlodipine Besylate 5 Mg Tablet) 5 mg PO DAILY [facility]; Protocol Last Admin: 07/05/22 08:14 Dose: 5 mg Documented By: OSMEL Dextrose (Dextrose 50 % 25 Gm/50 Ml Syringe) 25 gm IVPUSH Q15M PRN; Protocol PRN Reason: per Hypoglycemia Standing Ord. Docusate Sodium (Docusate Sodium 100 Mg Capsule) 100 mg PO BID [facility] Last Admin: 07/05/22 08:14 Dose: 100 mg Documented By: OSMEL Glucose (Glucose Gel 15 Gm Gel..Gram.) 15 gm PO Q15M PRN; Protocol PRN Reason: per Hypoglycemia Standing Ord. Hydralazine HCl (Hydralazine Hcl 25 Mg Tablet) 25 mg PO BID [facility]; Protocol Last Admin: 07/05/22 08:14 Dose: 25 mg Documented By: OSMEL Insulin Glargine (Insulin Glargine,Hum.Rec.Anlog 100 Unit/Ml 10 Ml Vial) 20 unit SUBCUT DAILY@0730 [facility] Last Admin: 07/05/22 08:15 Dose: 20 unit Documented By: OSMEL Insulin Glargine (Insulin Glargine,Hum.Rec.Anlog 100 Unit/Ml 10 Ml Vial) 10 unit SUBCUT BEDTIME [facility] Last Admin: 07/04/22 21:05 Dose: 10 unit Documented By: ROMARISCinthya Insulin Human Lispro (Insulin Lispro 100 Unit/Ml 3 Ml Vial) 0 unit SUBCUT QIDACHS [facility]; Protocol Last Admin: 07/05/22 08:03 Dose: Not Given Documented By: OSMEL Non-Admin Reason: No Insulin Coverage Lidocaine (Lidocaine 4 % Patch Adh..Patch) 1 patch TRANSDERMA DAILY [facility]; Protocol Last Admin: 07/05/22 08:16 Dose: Not Given Documented By: OSMEL Non-Admin Reason: Patient Refused Losartan Potassium (Losartan Potassium 25 Mg Tablet) 25 mg PO DAILY [facility]; Protocol Last Admin: 07/05/22 08:14 Dose: 25 mg Documented By: OSMEL Metoprolol Tartrate (Metoprolol Tartrate 50 Mg Tablet) 150 mg PO BID [facility]; Protocol Last Admin: 07/05/22 08:14 Dose: 150 mg Documented By: OSMEL Ondansetron HCl (Ondansetron Hcl 4 Mg/2 Ml Vial) 4 mg IVPUSH Q8H PRN PRN Reason: Nausea and Vomiting Pharmacy Consult (Consult Rx Perform Med Rec) 1 each MISCELLANE ONCE PRN PRN Reason: Consult order Polyethylene Glycol (Polyethylene Glycol 3350 17 Gm Powd.Pack) 17 gm PO DAILY PRN PRN Reason: constipation Last Admin: 06/28/22 22:01 Dose: 17 gm Documented By: ADRIANA Polyethylene Glycol (Polyethylene Glycol 3350 17 Gm Powd.Pack) 17 gm PO DAILY [facility] Last Admin: 07/05/22 08:13 Dose: 17 gm Documented By: OSMEL Sodium Chloride (0.9 % Sodium Chloride Flush 3 Ml Syringe) 3 ml IVFLUSH QSHIFT [facility] Last Admin: 07/05/22 08:16 Dose: 3 ml Documented By: OSMEL Tamsulosin HCl (Tamsulosin Hcl 0.4 Mg Capsule) 0.8 mg PO DAILY [facility] Last Admin: 07/05/22 08:14 Dose: 0.8 mg Documented By: OSMEL Urea (Urea 15 Gm Powder) 30 gm PO DAILY [facility] Last Admin: 07/05/22 08:13 Dose: 30 gm Documented By: OSMEL Vitamin D (Cholecalciferol (Vitamin D3) 25 Mcg Tablet) 50 mcg PO DAILY [facility] Last Admin: 07/05/22 08:14 Dose: 50 mcg Documented By: OSMEL Labs CBC & Chem 7: 07/02/22 05:38 07/03/22 05:02 Labs: Laboratory Results - last 24 hr 07/04/22 07/04/22 07/04/22 11:19 15:44 19:39 POC Glucose 208 H 229 H 138 H 07/05/22 07:40 POC Glucose 132 H Assessment and Plan (1) Traumatic subarachnoid hemorrhage: Status: Acute (2) Cerebral contusion: Status: Acute (3) Physical deconditioning: Status: Acute (4) Hyponatremia: Status: Acute Plan 74M with pmh Diabetes, hypertension, hyperlipidemia, chronic venous stasis dermatitis, presented the ED with mechanical fall, noted to have acute hypoxia. 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, fluid restrict, monitor New onset atrial fibrillation with RVR Rate controlled metoprolol 150mg bid Echo showing EF greater than 70% Cardiology input appreciated restart eliquis 07/10/22 no indication for continuous cardiac monitoring at this time 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
[2022-07-05 11:33] LABS: Glucose, Whole Blood 170 mg/dL (60-115)
[2022-07-05] MEDS: Insulin Lispro 100 UNIT/ML 3 ML VIAL SUBCUT (11:46)
[2022-07-05 11:53] VITALS: BP 127/67; PULSE 88; RESP 19; TEMP 37.1; O2SAT 97
[2022-07-05 13:42] VITALS: BP 127/67; PULSE 88; O2SAT 97
--- NOTE | 2022-07-05 13:42 | MHC.CLN ---
F/U SKIN WITH STAGE II TO COCCYX. DIET=DIABETIC 2000 KCALS, NDD3 CONSISTENCY, 1500 ML FLUID RESTRICTION. FLUID RESTRICTION DUE TO LOW SODIUM. PER NEPHROLOGY CONSISTENT WITH SIADH. ENSURE BID TO PROMOTE WOUND HEALING. PROVIDES ADDITIONAL 700 KCALS, 40 G PROTEIN. INTAKE AT MEALS VARIABLE, USUALLY 50-100%. REQUIRES 1:1 FEEDING. FOLLOW FOR INTAKE AND WOUND.
[2022-07-05 15:01] LABS: Glucose, Whole Blood 96 mg/dL (60-115)
[2022-07-05 15:07] VITALS: BP 125/60; PULSE 88; RESP 18; TEMP 37; O2SAT 97
--- NOTE | 2022-07-05 15:41 | PM.PNNEP ---
Subjective Subjective Date of Service: 07/06/22 Interval history: Comfortable, resting no new issues Physical Exam Vital Signs: Vital Signs: Last Vital Signs Temp 98.6 F 07/05/22 15:07 Pulse 88 07/05/22 15:07 Resp 18 07/05/22 15:07 BP 125/60 07/05/22 15:07 Pulse Ox 97 07/05/22 15:07 O2 Del Method 07/05/22 15:07 O2 Flow Rate 1.0 06/19/22 07:49 BMI result Body Mass Index 26.6 Objective Data Labs CBC & Chem 7: 07/02/22 05:38 07/03/22 05:02 Labs: Laboratory Results - last 24 hr 07/04/22 07/04/22 07/05/22 15:44 19:39 07:40 POC Glucose 229 H 138 H 132 H 07/05/22 07/05/22 11:28 14:56 POC Glucose 170 H 96 Microbiology Microbiology Results: Microbiology 06/15/22 15:00 Blood - Venous Blood Culture - Final No growth after 5 days. 06/15/22 15:00 Blood - Venous Blood Culture - Final No growth after 5 days. Procedures Date of Service Date of Service: 07/07/22 Assessment & Plan Assessment and plan (1) Hyponatremia: Status: Acute (2) Physical deconditioning: Status: Acute (3) Atrial fibrillation: Status: Acute (4) Cellulitis of right lower extremity: Status: Acute Plan 74M with Diabetes, hypertension, hyperlipidemia, chronic venous stasis dermatitis, presented the ED with mechanical fall, noted to have acute hypoxia. Acute hypoxic respiratory failure secondary to pneumonia mechanical fall Generalized weakness MRI has concern over possible NPH, neuro appreciated, not clinically NPH worsening mental status CT shows new LEFT Paraeital Hemorrhage Hyponatremia c/w SIADH, fluid restrict Na is better Keep on WATER restriction No need for urea unless Na drops further Normal Cortisol TSH normal 1.3cm pancreatic mass incidentaloma Time Spent With Patient Time: Total time spent is greater than 50% in coordination of care (as documented) at patient's floor/unit and/or counseling patient: Progress Note: Quality Stroke Does the patient have a stroke diagnosis?: No
[2022-07-05 16:59] LABS: Cortisol, Free 1.16 mcg/dL
[2022-07-05 19:02] LABS: Glucose, Whole Blood 127 mg/dL (60-115)
[2022-07-05 19:11] VITALS: BP 135/61; PULSE 89; RESP 20; TEMP 36.2; O2SAT 98
[2022-07-05] MEDS: Insulin Glargine,Hum.rec.anlog 100 UNIT/ML 10 ML VIAL 10 UNIT SUBCUT (20:23)
[2022-07-06 03:50] VITALS: BP 118/52; PULSE 88; RESP 16; TEMP 36.6; O2SAT 97
[2022-07-06 07:16] VITALS: BP 141/66; PULSE 81; RESP 14; TEMP 37.1; O2SAT 97
[2022-07-06 07:21] LABS: Glucose, Whole Blood 99 mg/dL (60-115)
[2022-07-06] MEDS: Insulin Glargine,Hum.rec.anlog 100 UNIT/ML 10 ML VIAL 20 UNIT SUBCUT (10:41)
[2022-07-06] MEDS: Lidocaine 4 % Patch ADH..PATCH 1 PATCH TRANSDERMA (10:41)
[2022-07-06] MEDS: Urea 15 GM POWDER 30 GM PO (10:41)
[2022-07-06] MEDS: polyethylene glycoL 3350 17 GM POWD.PACK PO (10:41)
[2022-07-06] MEDS: Metoprolol Tartrate 50 MG TABLET 150 MG PO ×2 (10:42→22:29)
[2022-07-06] MEDS: Losartan Potassium 25 MG TABLET PO (10:42)
[2022-07-06] MEDS: hydrALAZINE HCl 25 MG TABLET PO ×2 (10:42→21:12)
[2022-07-06] MEDS: Docusate Sodium 100 MG CAPSULE PO (10:42)
[2022-07-06] MEDS: amLODIPine Besylate 5 MG TABLET PO (10:42)
[2022-07-06] MEDS: Cholecalciferol (Vitamin D3) 25 MCG TABLET 50 MCG PO (10:42)
[2022-07-06] MEDS: Tamsulosin HCL 0.4 MG CAPSULE 0.8 MG PO (10:42)
[2022-07-06] MEDS: 0.9 % Sodium Chloride Flush 3 ML SYRINGE IVFLUSH ×3 (10:43→21:07)
[2022-07-06] MEDS: Acetaminophen 325 MG TABLET 650 MG PO ×2 (10:44→21:11)
[2022-07-06 11:10] LABS: Glucose, Whole Blood 234 mg/dL (60-115)
[2022-07-06] MEDS: Insulin Lispro 100 UNIT/ML 3 ML VIAL SUBCUT ×3 (11:50→21:13)
[2022-07-06 15:23] VITALS: BP 103/58; PULSE 85; RESP 18; TEMP 36.9; O2SAT 97
--- NOTE | 2022-07-06 15:31 | PC.NURSE ---
unstagable wound to coccyx. picture sent to dr. mark. Consult to general surgery. foam dressing applied. patient already on air loss mattress. Repositioned q2h.
[2022-07-06 15:38] LABS: Glucose, Whole Blood 173 mg/dL (60-115)
[2022-07-06 20:00] VITALS: BP 132/56; RESP 18; O2SAT 97
[2022-07-06 20:19] LABS: Glucose, Whole Blood 166 mg/dL (60-115)
[2022-07-06] MEDS: Insulin Glargine,Hum.rec.anlog 100 UNIT/ML 10 ML VIAL 10 UNIT SUBCUT (21:13)
[2022-07-07] MEDS: ondansetron HCL 4 MG/2 ML VIAL IVPUSH (01:05)
[2022-07-07 03:37] VITALS: BP 100/54; PULSE 72; RESP 14; TEMP 36.1; O2SAT 97
[2022-07-07 07:36] VITALS: BP 143/68; PULSE 77; RESP 18; TEMP 36.4; O2SAT 97
[2022-07-07 07:45] LABS: Glucose, Whole Blood 104 mg/dL (60-115)
--- NOTE | 2022-07-07 08:48 | PM.CNGS ---
History of Present Illness Consult details Consult date: 07/07/22 Requesting physician: Simone Liang Narrative: 81 year old male Initially admitted on 06/15/2022 after sustaining a fall 3 days prior wall shopping. He was found to be hypoxic and subsequently admitted to the hospitalist service. He has a past history of Atrial fibrillation, coronary artery disease, diabetes mellitus type 2, hypertension, hyperlipidemia, cervical fusion chronic venous stasis dermatitis, and subsequently found to have a traumatic subarachnoid hemorrhage with cerebral contusion. He has had a prolonged hospitalization and was recently found to have a sacral decubitus with black skin changes. Surgical consultation was requested for possible debridement. Decubitus has been covered with a pink foam dressing. He was also placed on air loss mattress upon admission. He denies any significant pain associated with this ulceration this time. Review of Systems Review of Systems: Yes all other systems are reviewed and are negative ENT: Denies Normal hearing present Gastrointestinal: Gastrointestinal: Denies abdominal pain Musculoskeletal: Musculoskeletal: Reports back pain Integumentary/Breasts: Skin/Breast: Reports as per HPI Neurologic: Denies Normal hearing present Hematologic/Lymphatic: Hematologic/Lymphatic: Reports easy bruising PMFSH Past Medical History Medical History CAD (coronary artery disease) Diabetes mellitus with coincident hypertension Hyperlipidemia Hypertension Family History Family History Mother Stroke Cancer Father No problems noted. Surgical History Surgical History H/O heart surgery Social History Social History Household Members: None Housing: House Do you presently have visiting nurse or other home services: No Alcohol intake: never Patient Tobacco Use Status: Never used Tobacco Tobacco use type: Cigarette Smoked in Last 30 Days: No e-Cigarette/Vaping Use: Never Used Second Hand Smoke Exposure: No Use of substances other than those prescribed or required for medical reasons: No Currently Displaying Signs/Symptoms of Drug Intoxication Withdrawal: No Have you been hit, kicked, punched, or otherwise hurt by someone within the past year? If so, by whom?: No Do you feel safe in your current relationship?: No Current Relationship Is there a partner from a previous relationship who is making you feel unsafe now?: No Are you made to feel afraid or neglected: No Advance Directives: No Advance Directives Information Provided: No Do you have thoughts of harming others: None Do you have a plan to hurt others: No Plan Recently lost weight without trying: No How much weight loss: Not applicable Eating poorly because of decreased appetite: No Nutrition screen score: 0 Poor oral hygiene: Yes (multiple missing teeth, dentures) service: No Current occupational status: retired Cognitive needs: Yes (walker) Hearing needs: No Vision needs: Yes (glasses) Meds Allergies Allergy/AdvReac Type Severity Reaction Status Date / Time Nydxovx-RFX-VdL Reductase Allergy Mild Burning Verified 06/17/22 07:48 Inhibitor sensation [Ybndnnv-Lgi-Myp Reductase Inhibitor] Active Medications: Current Medications Acetaminophen (Acetaminophen 325 Mg Tablet) 650 mg PO Q6H PRN PRN Reason: Pain, Mild (Pain Scale 1-3) Last Admin: 07/06/22 21:11 Dose: 650 mg Amlodipine Besylate (Amlodipine Besylate 5 Mg Tablet) 5 mg PO DAILY [facility]; Protocol Last Admin: 07/06/22 10:42 Dose: 5 mg Apixaban (Apixaban 5 Mg Tablet) 5 mg PO BID [facility] Dextrose (Dextrose 50 % 25 Gm/50 Ml Syringe) 25 gm IVPUSH Q15M PRN; Protocol PRN Reason: per Hypoglycemia Standing Ord. Docusate Sodium (Docusate Sodium 100 Mg Capsule) 100 mg PO BID [facility] Last Admin: 07/06/22 21:12 Dose: Not Given Glucose (Glucose Gel 15 Gm Gel..Gram.) 15 gm PO Q15M PRN; Protocol PRN Reason: per Hypoglycemia Standing Ord. Hydralazine HCl (Hydralazine Hcl 25 Mg Tablet) 25 mg PO BID [facility]; Protocol Last Admin: 07/06/22 21:12 Dose: 25 mg Insulin Glargine (Insulin Glargine,Hum.Rec.Anlog 100 Unit/Ml 10 Ml Vial) 20 unit SUBCUT DAILY@0730 [facility] Last Admin: 07/06/22 10:41 Dose: 20 unit Insulin Glargine (Insulin Glargine,Hum.Rec.Anlog 100 Unit/Ml 10 Ml Vial) 10 unit SUBCUT BEDTIME [facility] Last Admin: 07/06/22 21:13 Dose: 10 unit Insulin Human Lispro (Insulin Lispro 100 Unit/Ml 3 Ml Vial) 0 unit SUBCUT QIDACHS [facility]; Protocol Last Admin: 07/07/22 07:52 Dose: Not Given Lidocaine (Lidocaine 4 % Patch Adh..Patch) 1 patch TRANSDERMA DAILY [facility]; Protocol Last Admin: 07/06/22 10:41 Dose: 1 patch Losartan Potassium (Losartan Potassium 25 Mg Tablet) 25 mg PO DAILY [facility]; Protocol Last Admin: 07/06/22 10:42 Dose: 25 mg Metoprolol Tartrate (Metoprolol Tartrate 50 Mg Tablet) 150 mg PO BID [facility]; Protocol Last Admin: 07/06/22 22:29 Dose: 150 mg Ondansetron HCl (Ondansetron Hcl 4 Mg/2 Ml Vial) 4 mg IVPUSH Q8H PRN PRN Reason: Nausea and Vomiting Last Admin: 07/07/22 01:05 Dose: 4 mg Pharmacy Consult (Consult Rx Perform Med Rec) 1 each MISCELLANE ONCE PRN PRN Reason: Consult order Polyethylene Glycol (Polyethylene Glycol 3350 17 Gm Powd.Pack) 17 gm PO DAILY PRN PRN Reason: constipation Last Admin: 06/28/22 22:01 Dose: 17 gm Polyethylene Glycol (Polyethylene Glycol 3350 17 Gm Powd.Pack) 17 gm PO DAILY [facility] Last Admin: 07/06/22 10:41 Dose: 17 gm Sodium Chloride (0.9 % Sodium Chloride Flush 3 Ml Syringe) [facility] Last Admin: 07/06/22 21:07 Dose: 3 ml Tamsulosin HCl (Tamsulosin Hcl 0.4 Mg Capsule) 0.8 mg PO DAILY [facility] Last Admin: 07/06/22 10:42 Dose: 0.8 mg Urea (Urea 15 Gm Powder) 30 gm PO DAILY [facility] Last Admin: 07/06/22 10:41 Dose: 30 gm Vitamin D (Cholecalciferol (Vitamin D3) 25 Mcg Tablet) 50 mcg PO DAILY [facility] Last Admin: 07/06/22 10:42 Dose: 50 mcg Home Medications Medication Instructions Recorded Confirmed Last Taken Type insulin human U-100 NPH-regulr 40 unit subcut DAILY@1300 06/14/22 06/14/22 Unknown History 70-30 mix 100 unit/mL subcutaneous susp insulin human U-100 NPH-regulr 60 unit subcut DAILY 06/14/22 06/14/22 Unknown History 70-30 mix 100 unit/mL subcutaneous susp Physical Exam Vital Signs: Vital Signs: Last Vital Signs Temp 97.5 F 07/07/22 07:36 Pulse 77 07/07/22 07:36 Resp 18 07/07/22 07:36 BP 143/68 H 07/07/22 07:36 Pulse Ox 97 07/07/22 07:36 O2 Del Method 07/07/22 07:36 O2 Flow Rate 1.0 06/19/22 07:49 BMI result Body Mass Index 26.6 Const: General: comfortable and no acute distress Nutritional Appearance: well nourished Orientation/consciousness: patient oriented x3 Limitations: no limitations HEENT: Head: Yes normocephalic and Yes atraumatic Ears: hearing grossly abnormal bilaterally ( hard of hearing) Resp: Effort & Inspection: normal respiratory effort, no cough and no respiratory distress GI: Inspection: Yes normal to inspection Palpation (GI): Soft to palpation, nontender, no guarding and not rigid Back/Spine/Pelvis: Other: wide area of necrotic skin over the sacrum, unstageable. Surrounding skin is red. Skin: Other: Decubitus as noted above Neuro: General: patient oriented x3 Cranial nerves: No Normal hearing present Extrem: General: Yes no clubbing, cyanosis or edema Results Labs Result diagrams: 07/02/22 05:38 07/03/22 05:02 Labs: Abnormal lab results 07/06/22 07/06/22 07/06/22 Range/Units 11:03 15:21 20:13 POC Glucose 234 H 173 H 166 H (60-115) mg/dL Urine 06/13/22 Range/Units 19:53 Urine Color Yellow Urine Appearance Clear Urine pH 7.0 (5.0-9.0) Ur Specific [place] >= 1.030 H (1.005-1.025) Urine Protein 300 (3+) H (Neg-Trace) mg/dL Urine Glucose (UA) 500 H (Negative) mg/dL All other labs normal. Assessment and Plan (1) Decubitus ulcer of sacral region, unstageable: Status: Acute Plan 81-year-old male patient with a prolonged hospitalization found to have an area of necrotic skin in the sacrum suggestive of a sacral decubitus ulcer. The wound is currently being covered with a pink foam dressing. I recommended operative debridement in the OR under anesthesia to obtain viable margins. The wound may eventually require wound VAC dressing. After discussion of the procedure, risks, and alternatives, the patient consents to the procedure. He will be added onto the operative schedule for tomorrow. Call placed to patient's healthcare proxy (Alok) and message left with details. Discussed with Dr. Linares. Procedures Date of Service Date of Service: 07/07/22
[2022-07-07] MEDS: Metoprolol Tartrate 50 MG TABLET 150 MG PO ×2 (09:35→19:50)
[2022-07-07] MEDS: Insulin Glargine,Hum.rec.anlog 100 UNIT/ML 10 ML VIAL 20 UNIT SUBCUT (09:35)
[2022-07-07] MEDS: Cholecalciferol (Vitamin D3) 25 MCG TABLET 50 MCG PO (09:36)
[2022-07-07] MEDS: amLODIPine Besylate 5 MG TABLET PO (09:36)
[2022-07-07] MEDS: hydrALAZINE HCl 25 MG TABLET PO ×2 (09:37→19:50)
[2022-07-07] MEDS: Losartan Potassium 25 MG TABLET PO (09:37)
[2022-07-07] MEDS: Lidocaine 4 % Patch ADH..PATCH 1 PATCH TRANSDERMA (09:38)
[2022-07-07] MEDS: Tamsulosin HCL 0.4 MG CAPSULE 0.8 MG PO (09:38)
[2022-07-07] MEDS: Urea 15 GM POWDER 30 GM PO (09:38)
[2022-07-07] MEDS: 0.9 % Sodium Chloride Flush 3 ML SYRINGE IVFLUSH ×3 (09:39→19:50)
[2022-07-07 11:11] LABS: Glucose, Whole Blood 199 mg/dL (60-115)
--- NOTE | 2022-07-07 11:43 | HO.PM.IMPN ---
Subjective Subjective Date of Service: 07/07/22 Interval History: no complaints; denies pain or respiratory complaints Review of Systems Review of Systems: Yes all other systems are reviewed and are negative Physical Exam Vital Signs: Vital Signs: Last Vital Signs Temp 97.5 F 07/07/22 07:36 Pulse 77 07/07/22 07:36 Resp 18 07/07/22 07:36 BP 143/68 H 07/07/22 07:36 Pulse Ox 97 07/07/22 07:36 O2 Del Method 07/07/22 07:36 O2 Flow Rate 1.0 06/19/22 07:49 BMI result Body Mass Index 26.6 Gen: in no acute distress HEENT: sclera anicteric, moist mucus membranes Neck: supple Lungs: clear to auscultation bilaterally Heart: irregular irregular, no murmurs Abd: soft, non-tender, non-distended Ext: no edema Skin: warm/well-perfused, unstageable necrotic sacral decubitus ulcer Neuro: alert and oriented x3, no focal findings Psych: appropriate affect Objective Data Active Medications Acetaminophen (Acetaminophen 325 Mg Tablet) 650 mg PO Q6H PRN PRN Reason: Pain, Mild (Pain Scale 1-3) Last Admin: 07/06/22 21:11 Dose: 650 mg Documented By: MARIANN Amlodipine Besylate (Amlodipine Besylate 5 Mg Tablet) 5 mg PO DAILY [facility]; Protocol Last Admin: 07/07/22 09:36 Dose: 5 mg Documented By: DIPAK Apixaban (Apixaban 5 Mg Tablet) 5 mg PO BID [facility] Dextrose (Dextrose 50 % 25 Gm/50 Ml Syringe) 25 gm IVPUSH Q15M PRN; Protocol PRN Reason: per Hypoglycemia Standing Ord. Docusate Sodium (Docusate Sodium 100 Mg Capsule) 100 mg PO BID [facility] Last Admin: 07/07/22 09:39 Dose: Not Given Documented By: DIPAK Non-Admin Reason: loose stools Glucose (Glucose Gel 15 Gm Gel..Gram.) 15 gm PO Q15M PRN; Protocol PRN Reason: per Hypoglycemia Standing Ord. Hydralazine HCl (Hydralazine Hcl 25 Mg Tablet) 25 mg PO BID [facility]; Protocol Last Admin: 07/07/22 09:37 Dose: 25 mg Documented By: DIPAK Cefazolin Sodium/Dextrose (Ancef) 2 gm in 50 mls @ 100 mls/hr IV PREOP ONE Stop: 07/08/22 07:29 Insulin Glargine (Insulin Glargine,Hum.Rec.Anlog 100 Unit/Ml 10 Ml Vial) 20 unit SUBCUT DAILY@0730 [facility] Last Admin: 07/07/22 09:35 Dose: 20 unit Documented By: DIPAK Insulin Glargine (Insulin Glargine,Hum.Rec.Anlog 100 Unit/Ml 10 Ml Vial) 10 unit SUBCUT BEDTIME [facility] Last Admin: 07/06/22 21:13 Dose: 10 unit Documented By: MARIANN Insulin Human Lispro (Insulin Lispro 100 Unit/Ml 3 Ml Vial) 0 unit SUBCUT QIDACHS [facility]; Protocol Last Admin: 07/07/22 07:52 Dose: Not Given Documented By: DIPAK Non-Admin Reason: No Insulin Coverage Lidocaine (Lidocaine 4 % Patch Adh..Patch) 1 patch TRANSDERMA DAILY [facility]; Protocol Last Admin: 07/07/22 09:38 Dose: 1 patch Documented By: DIPAK Losartan Potassium (Losartan Potassium 25 Mg Tablet) 25 mg PO DAILY [facility]; Protocol Last Admin: 07/07/22 09:37 Dose: 25 mg Documented By: DIPAK Metoprolol Tartrate (Metoprolol Tartrate 50 Mg Tablet) 150 mg PO BID [facility]; Protocol Last Admin: 07/07/22 09:35 Dose: 150 mg Documented By: DIPAK Ondansetron HCl (Ondansetron Hcl 4 Mg/2 Ml Vial) 4 mg IVPUSH Q8H PRN PRN Reason: Nausea and Vomiting Last Admin: 07/07/22 01:05 Dose: 4 mg Documented By: MARIANN Pharmacy Consult (Consult Rx Perform Med Rec) 1 each MISCELLANE ONCE PRN PRN Reason: Consult order Polyethylene Glycol (Polyethylene Glycol 3350 17 Gm Powd.Pack) 17 gm PO DAILY PRN PRN Reason: constipation Last Admin: 06/28/22 22:01 Dose: 17 gm Documented By: ADRIANA Polyethylene Glycol (Polyethylene Glycol 3350 17 Gm Powd.Pack) 17 gm PO DAILY [facility] Last Admin: 07/07/22 09:39 Dose: Not Given Documented By: DIPAK Non-Admin Reason: loose stools Sodium Chloride (0.9 % Sodium Chloride Flush 3 Ml Syringe) 3 ml IVFLUSH QSHIFT [facility] Last Admin: 07/07/22 09:39 Dose: 3 ml Documented By: DIPAK Tamsulosin HCl (Tamsulosin Hcl 0.4 Mg Capsule) 0.8 mg PO DAILY [facility] Last Admin: 07/07/22 09:38 Dose: 0.8 mg Documented By: DIPAK Urea (Urea 15 Gm Powder) 30 gm PO DAILY [facility] Last Admin: 07/07/22 09:38 Dose: 30 gm Documented By: DIPAK Vitamin D (Cholecalciferol (Vitamin D3) 25 Mcg Tablet) 50 mcg PO DAILY [facility] Last Admin: 07/07/22 09:36 Dose: 50 mcg Documented By: DIPAK Labs CBC & Chem 7: 07/02/22 05:38 07/03/22 05:02 Labs: Laboratory Results - last 24 hr 07/06/22 07/06/22 07/07/22 15:21 20:13 07:40 POC Glucose 173 H 166 H 104 07/07/22 11:05 POC Glucose 199 H Assessment and Plan (1) Traumatic subarachnoid hemorrhage: Status: Acute (2) Cerebral contusion: Status: Acute (3) Physical deconditioning: Status: Acute (4) Hyponatremia: Status: Acute Plan d#23 74yo M with DM2, HTN, HLD, chronic venous stasis dermatitis presented with mechanical fall, admitted for hypoxia due to PNA # traumatic SAH - hold apixaban x2wk, restart 07/10/22 # acute hypoxic respiratory failure du eto PNA - finished 10d of ABX, weaned of O2 # urinary retention - bladder scan q8h, intermittent cath prn # mechanical fall - difficulty ambulating; awaiting SNF placement # generalized weakness - 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 but not clinically NPH per Neurology # acute/chronic hypoNa - likely SIADH, on fluid restriction, recheck BMP in AM # new-onset AF/RVR - LVEF >70%, seen by Cardiology - rate-controlled on metoprolol tartrate - restart apixaban 07/10/22 # incidental 1.3cm pancreatic lesions, may reflect adjacent pancreatic cysts - outpt MR/MRCP # unstageable sacral decubitus ulcer - Surgery consulted, plan operative debridement in AM # DM2 - basal/bolus insulin # HTN - hydralazine, losartan, and metoprolol # HLD - statin # VTE ppx: SCDs, no apixaban until 07/10 In my clinical judgment, the patient requires continued inpatient hospitalization for the following reasons: operative debridement, SNF placement Quality Stroke Does the patient have a stroke diagnosis?: No VTE Prior VTE?: No VTE Risk Level:: Medical - moderate - high VTE Device Contraindication: Treatment Not Indicated VTE Drug Contraindication: N/A - Med Ordered
[2022-07-07] MEDS: Insulin Lispro 100 UNIT/ML 3 ML VIAL SUBCUT ×2 (11:53→16:58)
[2022-07-07] MEDS: Acetaminophen 325 MG TABLET 650 MG PO (14:44)
[2022-07-07 15:17] VITALS: BP 111/55; PULSE 88; RESP 18; TEMP 37.6; O2SAT 99
[2022-07-07 15:45] LABS: Glucose, Whole Blood 164 mg/dL (60-115)
[2022-07-07 19:35] VITALS: BP 131/62; PULSE 78; RESP 18; TEMP 37.2; O2SAT 97
[2022-07-07 19:47] LABS: Glucose, Whole Blood 127 mg/dL (60-115)
[2022-07-07] MEDS: Insulin Glargine,Hum.rec.anlog 100 UNIT/ML 10 ML VIAL 10 UNIT SUBCUT (19:49)
[2022-07-07] MEDS: oxyCODONE HCl Immed Release 5 MG TABLET PO (19:50)
[2022-07-08] VITALS (10 sets, daily range): BP systolic 98–136; BP diastolic 47–67; PULSE 71–103; RESP 16–20; TEMP 36.2–36.8; O2SAT 95–98
[2022-07-08 07:07] LABS: Anion Gap 12 (12-20); Blood Urea Nitrogen 18 mg/dL (9-16); Calcium 8.3 mg/dL (8.4-10.2); Carbon Dioxide 28 mmol/L (22-29); Chloride 100 mmol/L (96-108); Creatinine Clr Calc Pharmacy 110.9; Estimated Glomerular Filt Rate > 60; Glucose Random 73 mg/dL (60-115); Potassium 4.1 mmol/L (3.3-5.1); Sodium 136 mmol/L (135-145)
[2022-07-08 07:30] LABS: Glucose, Whole Blood 76 mg/dL (60-115)
--- NOTE | 2022-07-08 08:03 | MHC.SHP ---
Pre-Procedural Eval Section A Date of Service: 07/08/22 The patient is an INPATIENT: Yes Changes since office visit: Yes Patient answered all questions; No Cold of Flu in the past 2 weeks, No New Medical Problems and No Changes in Medication Section B Chief Complaint: acute hypoxic respiratory failure, cellulitis RLE Allergies: Allergies Allergy/AdvReac Type Severity Reaction Status Date / Time Hrpfybh-HPM-ZtB Reductase Allergy Mild Burning Verified 06/17/22 07:48 Inhibitor sensation [Kkamwnr-Kip-Zsc Reductase Inhibitor] Plan Diagnosis/Plan: Unchanged I have reviewed the history and physical and performed a pertinent physical examination on my patient. No changes have occurred unless specified.
--- NOTE | 2022-07-08 08:13 | HO.ANESPROP2 ---
[facility], [facility] Active Problems Active Problems: All Active Problems (Updated 07/07/22 @ 08:59 by Brayan Ho MD) Decubitus ulcer of sacral region, unstageable (Acute) Traumatic subarachnoid hemorrhage (Acute) Cerebral contusion (Acute) Encephalopathy (Acute) Physical deconditioning (Acute) Hyponatremia (Acute) Atrial fibrillation (Acute) CAD (coronary artery disease) (Acute) Acute respiratory failure with hypoxia (Acute) Cellulitis of right lower extremity (Acute) Fall (Acute) Dizziness (Acute) Weakness (Acute) Back pain (Acute) Physical exam (Acute) Hyperlipidemia (Acute) Diabetes mellitus with coincident hypertension (Acute) Encounter for annual wellness visit (AWV) in Medicare patient (Acute) Hypertension (Acute) Past Medical History Medical History CAD (coronary artery disease) Diabetes mellitus with coincident hypertension Hyperlipidemia Hypertension Family History Family History Mother Stroke Cancer Father No problems noted. Family history of problems with anesthesia: No Surgical History Surgical History H/O heart surgery History of Problems with Anesthesia: No Social History Social History Household Members: None Housing: House Do you presently have visiting nurse or other home services: No Alcohol intake: never Patient Tobacco Use Status: Former Tobacco user Tobacco use type: Cigarette Smoked in Last 30 Days: No e-Cigarette/Vaping Use: Never Used Second Hand Smoke Exposure: No Use of substances other than those prescribed or required for medical reasons: No Currently Displaying Signs/Symptoms of Drug Intoxication Withdrawal: No Have you been hit, kicked, punched, or otherwise hurt by someone within the past year? If so, by whom?: No Do you feel safe in your current relationship?: No Current Relationship Is there a partner from a previous relationship who is making you feel unsafe now?: No Are you made to feel afraid or neglected: No Are you DNR?: No Advance Directives: No Advance Directives Information Provided: No Advance Directives on File: No Do you have thoughts of harming others: None Do you have a plan to hurt others: No Plan Recently lost weight without trying: No How much weight loss: Not applicable Eating poorly because of decreased appetite: No Nutrition screen score: 0 Poor oral hygiene: Yes (multiple missing teeth, dentures) service: No Current occupational status: retired Cognitive needs: Yes (walker) Hearing needs: No Vision needs: Yes (glasses) Meds Allergies Allergy/AdvReac Type Severity Reaction Status Date / Time [id number]-REA-EsG Reductase Allergy Mild Burning Verified 06/17/22 07:48 Inhibitor sensation [Kbfloef-Bxx-Lpn Reductase Inhibitor] Active Medications: Current Medications Acetaminophen (Acetaminophen 325 Mg Tablet) 650 mg PO Q6H PRN PRN Reason: Pain, Mild (Pain Scale 1-3) Last Admin: 07/07/22 14:44 Dose: 650 mg Amlodipine Besylate (Amlodipine Besylate 5 Mg Tablet) 5 mg PO DAILY [facility] [place]; Protocol Last Admin: 07/07/22 09:36 Dose: 5 mg Apixaban (Apixaban 5 Mg Tablet) 5 mg PO BID [facility] [place] Dextrose (Dextrose 50 % 25 Gm/50 Ml Syringe) 25 gm IVPUSH Q15M PRN; Protocol PRN Reason: per Hypoglycemia Standing Ord. Docusate Sodium (Docusate Sodium 100 Mg Capsule) 100 mg PO BID [facility] [place] Last Admin: 07/07/22 19:57 Dose: Not Given Glucose (Glucose Gel 15 Gm Gel..Gram.) 15 gm PO Q15M PRN; Protocol PRN Reason: per Hypoglycemia Standing Ord. Hydralazine HCl (Hydralazine Hcl 25 Mg Tablet) 25 mg PO BID [facility] [place]; Protocol Last Admin: 07/07/22 19:50 Dose: 25 mg Insulin Glargine (Insulin Glargine,Hum.Rec.Anlog 100 Unit/Ml 10 Ml Vial) 20 unit SUBCUT DAILY@0730 [facility] Last Admin: 07/08/22 07:29 Dose: Not Given Insulin Glargine (Insulin Glargine,Hum.Rec.Anlog 100 Unit/Ml 10 Ml Vial) 10 unit SUBCUT BEDTIME [facility] [place] Last Admin: 07/07/22 19:49 Dose: 10 unit Insulin Human Lispro (Insulin Lispro 100 Unit/Ml 3 Ml Vial) 0 unit SUBCUT QIDACHS [facility]; Protocol Last Admin: 07/08/22 07:29 Dose: Not Given Lidocaine (Lidocaine 4 % Patch Adh..Patch) 1 patch TRANSDERMA DAILY [facility] [place]; Protocol Last Admin: 07/07/22 09:38 Dose: 1 patch Losartan Potassium (Losartan Potassium 25 Mg Tablet) 25 mg PO DAILY [facility]; Protocol Last Admin: 07/07/22 09:37 Dose: 25 mg Metoprolol Tartrate (Metoprolol Tartrate 50 Mg Tablet) 150 mg PO BID [facility]; Protocol Last Admin: 07/07/22 19:50 Dose: 150 mg Ondansetron HCl (Ondansetron Hcl 4 Mg/2 Ml Vial) 4 mg IVPUSH Q8H PRN PRN Reason: Nausea and Vomiting Last Admin: 07/07/22 01:05 Dose: 4 mg Oxycodone HCl (Oxycodone Hcl Immed Release 5 Mg Tablet) 5 mg PO Q6H PRN PRN Reason: Pain, Moderate (Pain Scale 4-6 Last Admin: 07/07/22 19:50 Dose: 5 mg Pharmacy Consult (Consult Rx Perform Med Rec) 1 each MISCELLANE ONCE PRN PRN Reason: Consult order Polyethylene Glycol (Polyethylene Glycol 3350 17 Gm Powd.Pack) 17 gm PO DAILY PRN PRN Reason: constipation Last Admin: 06/28/22 22:01 Dose: 17 gm Polyethylene Glycol (Polyethylene Glycol 3350 17 Gm Powd.Pack) 17 gm PO DAILY [facility] [place] Last Admin: 07/07/22 09:39 Dose: Not Given Sodium Chloride (0.9 % Sodium Chloride Flush 3 Ml Syringe) [facility] Last Admin: 07/07/22 19:50 Dose: 3 ml Tamsulosin HCl (Tamsulosin Hcl 0.4 Mg Capsule) 0.8 mg PO DAILY [facility] Last Admin: 07/07/22 09:38 Dose: 0.8 mg Urea (Urea 15 Gm Powder) 30 gm PO DAILY [facility] [place] Last Admin: 07/07/22 09:38 Dose: 30 gm Vitamin D (Cholecalciferol (Vitamin D3) 25 Mcg Tablet) 50 mcg PO DAILY [facility] Last Admin: 07/07/22 09:36 Dose: 50 mcg Home Medications Medication Instructions Recorded Confirmed Last Taken Type insulin human U-100 NPH-regulr 40 unit subcut DAILY@1300 06/14/22 06/14/22 Unknown History 70-30 mix 100 unit/mL subcutaneous susp insulin human U-100 NPH-regulr 60 unit subcut DAILY 06/14/22 06/14/22 Unknown History 70-30 mix 100 unit/mL subcutaneous susp Exam Exam Date and Time: July 08, [id number] Height,Weight and Vital Signs: Height 5 ft 9 in Weight 81.648 kg Last Vital Signs Temp 97.1 F 07/08/22 07:20 Pulse 73 07/08/22 07:20 Resp 17 07/08/22 07:20 BP 136/67 07/08/22 07:20 Pulse Ox 97 07/08/22 07:20 O2 Del Method 07/08/22 07:20 O2 Flow Rate 2 07/08/22 04:00 Pertinent Lab Results Pertinent Lab Results: Laboratory Tests 06/13/22 06/13/22 06/13/22 16:40 16:40 16:40 WBC 8.7 RBC 4.56 L Hgb 12.7 L Hct 38.7 L MCV 84.9 MCH 27.9 MCHC 32.8 RDW 14.4 Plt Count 143 L MPV 10.5 Immature Gran % (Auto) 0.3 Neut % (Auto) 75.5 H Lymph % (Auto) 18.0 L [place] % (Auto) 5.4 Eos % (Auto) 0.5 Baso % (Auto) 0.3 Lymph # (Auto) 1.6 [place] # (Auto) 0.5 Eos # (Auto) 0.0 Baso # (Auto) 0.0 Abs Immat Gran (auto) 0.03 Absolute Neuts (auto) 6.5 Absolute Nucleated RBC 0.000 Nucleated RBC % (auto) 0.0 PT 14.6 H INR 1.3 H D-Dimer High Sensitivty Sodium Potassium Chloride Carbon Dioxide Anion Gap BUN Creatinine Estim Creat Clear Calc Estimated GFR POC Glucose Random Glucose Fasting Glucose Osmolality Calcium Magnesium Total Bilirubin AST ALT Alkaline Phosphatase Total Creatine Kinase Troponin I High Sens B-Natriuretic Peptide Total Protein Albumin TSH Free Cortisol Urine Color Urine Appearance Urine pH Ur Specific [place] Urine Protein Urine Glucose (UA) Urine Ketones Urine Blood Urine Nitrite Ur Leukocyte Esterase Urine RBC Urine WBC Ur Squamous Epith Cells Urine Bacteria Hyaline Casts Urine Osmolality U Random Total Protein Ur Random Sodium Urine Creatinine Urine Microalbumin Microalb/Creat Ratio C. difficile Tox B Gene COVID-19 ([facility]) Negative COVID-19 Clin Com See Note Influenza Type A (PCR) Influenza Type B (PCR) RSV RNA Qual (PCR) SARS-CoV-2 RNA (RT-PCR) 11/10/22 11/10/22 11/10/22 16:40 16:40 17:36 WBC RBC Hgb Hct MCV MCH MCHC RDW Plt Count MPV Immature Gran % (Auto) Neut % (Auto) Lymph % (Auto) [place] % (Auto) Eos % (Auto) Baso % (Auto) Lymph # (Auto) [place] # (Auto) Eos # (Auto) Baso # (Auto) Abs Immat Gran (auto) Absolute Neuts (auto) Absolute Nucleated RBC Nucleated RBC % (auto) PT INR D-Dimer High Sensitivty Sodium 140 Potassium 4.4 Chloride 103 Carbon Dioxide 23 Anion Gap 18 BUN 15 Creatinine 0.69 Estim Creat Clear Calc 86.8 Estimated GFR > 60 POC Glucose Random Glucose 191 H Fasting Glucose Osmolality Calcium 9.1 Magnesium 1.4 L* Total Bilirubin 0.7 AST 25 ALT 19 Alkaline Phosphatase 51 Total Creatine Kinase 224 H Troponin I High Sens 14.8 B-Natriuretic Peptide 175 H Total Protein 7.1 Albumin 4.3 TSH Free Cortisol Urine Color Urine Appearance Urine pH Ur Specific [place] Urine Protein Urine Glucose (UA) Urine Ketones Urine Blood Urine Nitrite Ur Leukocyte Esterase Urine RBC Urine WBC Ur Squamous Epith Cells Urine Bacteria Hyaline Casts Urine Osmolality U Random Total Protein Ur Random Sodium Urine Creatinine Urine Microalbumin Microalb/Creat Ratio C. difficile Tox B Gene COVID-19 ([facility]) COVID-19 Clin Com Influenza Type A (PCR) Influenza Type B (PCR) RSV RNA Qual (PCR) SARS-CoV-2 RNA (RT-PCR) 06/13/22 06/13/22 06/13/22 19:53 21:19 21:19 WBC RBC Hgb Hct MCV MCH MCHC RDW Plt Count MPV Immature Gran % (Auto) Neut % (Auto) Lymph % (Auto) [place] % (Auto) Eos % (Auto) Baso % (Auto) Lymph # (Auto) [place] # (Auto) Eos # (Auto) Baso # (Auto) Abs Immat Gran (auto) Absolute Neuts (auto) Absolute Nucleated RBC Nucleated RBC % (auto) PT INR D-Dimer High Sensitivty Sodium 139 Potassium 4.1 Chloride 102 Carbon Dioxide 25 Anion Gap 16 BUN 13 Creatinine 0.65 Estim Creat Clear Calc 92.1 Estimated GFR > 60 POC Glucose Random Glucose 165 H Fasting Glucose Osmolality Calcium 8.6 Magnesium 1.6 Total Bilirubin AST ALT Alkaline Phosphatase Total Creatine Kinase Troponin I High Sens 16.7 B-Natriuretic Peptide Total Protein Albumin TSH Free Cortisol Urine Color Yellow Urine Appearance Clear Urine pH 7.0 Ur Specific [place] >= 1.030 H Urine Protein 300 (3+) H Urine Glucose (UA) 500 H Urine Ketones Trace Urine Blood Trace H Urine Nitrite Negative Ur Leukocyte Esterase Negative Urine RBC 3-5 H Urine WBC 0-5 Ur Squamous Epith Cells 0-2 Urine Bacteria None Seen Hyaline Casts 0-2 Urine Osmolality U Random Total Protein Ur Random Sodium Urine Creatinine Urine Microalbumin Microalb/Creat Ratio C. difficile Tox B Gene COVID-19 ([facility]) COVID-19 Clin Com Influenza Type A (PCR) Influenza Type B (PCR) RSV RNA Qual (PCR) SARS-CoV-2 RNA (RT-PCR) 06/14/22 06/14/22 06/15/22 14:28 20:44 06:59 WBC RBC Hgb Hct MCV MCH MCHC RDW Plt Count MPV Immature Gran % (Auto) Neut % (Auto) Lymph % (Auto) [place] % (Auto) Eos % (Auto) Baso % (Auto) Lymph # (Auto) [place] # (Auto) Eos # (Auto) Baso # (Auto) Abs Immat Gran (auto) Absolute Neuts (auto) Absolute Nucleated RBC Nucleated RBC % (auto) PT INR D-Dimer High Sensitivty Sodium Potassium Chloride Carbon Dioxide Anion Gap BUN Creatinine Estim Creat Clear Calc Estimated GFR POC Glucose 278 H 290 H 224 H Random Glucose Fasting Glucose Osmolality Calcium Magnesium Total Bilirubin AST ALT Alkaline Phosphatase Total Creatine Kinase Troponin I High Sens B-Natriuretic Peptide Total Protein Albumin TSH Free Cortisol Urine Color Urine Appearance Urine pH Ur Specific [place] Urine Protein Urine Glucose (UA) Urine Ketones Urine Blood Urine Nitrite Ur Leukocyte Esterase Urine RBC Urine WBC Ur Squamous Epith Cells Urine Bacteria Hyaline Casts Urine Osmolality U Random Total Protein Ur Random Sodium Urine Creatinine Urine Microalbumin Microalb/Creat Ratio C. difficile Tox B Gene COVID-19 ([facility]) COVID-19 Clin Com Influenza Type A (PCR) Influenza Type B (PCR) RSV RNA Qual (PCR) SARS-CoV-2 RNA (RT-PCR) 06/15/22 06/15/22 06/15/22 09:38 11:27 11:28 WBC 15.4 H RBC 5.07 Hgb 14.0 Hct 41.4 L MCV 81.7 MCH 27.6 MCHC 33.8 RDW 14.8 Plt Count 141 L MPV 11.4 Immature Gran % (Auto) 0.8 H Neut % (Auto) 84.9 H Lymph % (Auto) 7.2 L [place] % (Auto) 6.6 Eos % (Auto) 0.3 Baso % (Auto) 0.2 Lymph # (Auto) 1.1 L [place] # (Auto) 1.0 Eos # (Auto) 0.0 Baso # (Auto) 0.0 Abs Immat Gran (auto) 0.12 H Absolute Neuts (auto) 13.0 H Absolute Nucleated RBC 0.000 Nucleated RBC % (auto) 0.0 PT INR D-Dimer High Sensitivty Sodium 134 L Potassium 4.7 Chloride 97 Carbon Dioxide 20 L Anion Gap 22 H BUN 12 Creatinine 0.74 Estim Creat Clear Calc 80.9 Estimated GFR > 60 POC Glucose Random Glucose 215 H Fasting Glucose Osmolality Calcium 8.8 Magnesium Total Bilirubin AST ALT Alkaline Phosphatase Total Creatine Kinase Troponin I High Sens B-Natriuretic Peptide Total Protein Albumin TSH Free Cortisol Urine Color Urine Appearance Urine pH Ur Specific [place] Urine Protein Urine Glucose (UA) Urine Ketones Urine Blood Urine Nitrite Ur Leukocyte Esterase Urine RBC Urine WBC Ur Squamous Epith Cells Urine Bacteria Hyaline Casts Urine Osmolality U Random Total Protein Ur Random Sodium Urine Creatinine Urine Microalbumin Microalb/Creat Ratio C. difficile Tox B Gene COVID-19 ([facility]) COVID-19 Clin Com Influenza Type A (PCR) NEGATIVE Influenza Type B (PCR) NEGATIVE RSV RNA Qual (PCR) NEGATIVE SARS-CoV-2 RNA (RT-PCR) NEGATIVE 06/15/22 06/15/22 06/15/22 13:56 14:48 15:00 WBC RBC Hgb Hct MCV MCH MCHC RDW Plt Count MPV Immature Gran % (Auto) Neut % (Auto) Lymph % (Auto) [place] % (Auto) Eos % (Auto) Baso % (Auto) Lymph # (Auto) [place] # (Auto) Eos # (Auto) Baso # (Auto) Abs Immat Gran (auto) Absolute Neuts (auto) Absolute Nucleated RBC Nucleated RBC % (auto) PT INR D-Dimer High Sensitivty 1116 Sodium Potassium Chloride Carbon Dioxide Anion Gap BUN Creatinine Estim Creat Clear Calc Estimated GFR POC Glucose 156 H 113 Random Glucose Fasting Glucose Osmolality Calcium Magnesium Total Bilirubin AST ALT Alkaline Phosphatase Total Creatine Kinase Troponin I High Sens B-Natriuretic Peptide Total Protein Albumin TSH Free Cortisol Urine Color Urine Appearance Urine pH Ur Specific [place] Urine Protein Urine Glucose (UA) Urine Ketones Urine Blood Urine Nitrite Ur Leukocyte Esterase Urine RBC Urine WBC Ur Squamous Epith Cells Urine Bacteria Hyaline Casts Urine Osmolality U Random Total Protein Ur Random Sodium Urine Creatinine Urine Microalbumin Microalb/Creat Ratio C. difficile Tox B Gene COVID-19 ([facility]) COVID-19 Clin Com Influenza Type A (PCR) Influenza Type B (PCR) RSV RNA Qual (PCR) SARS-CoV-2 RNA (RT-PCR) 06/15/22 06/15/22 06/16/22 16:30 19:40 05:40 WBC 11.1 H RBC 4.63 Hgb 12.6 L Hct 38.5 L MCV 83.2 MCH 27.2 MCHC 32.7 RDW 14.7 Plt Count 140 L MPV 10.7 Immature Gran % (Auto) 0.5 H Neut % (Auto) 69.6 Lymph % (Auto) 21.4 [place] % (Auto) 7.7 Eos % (Auto) 0.5 Baso % (Auto) 0.3 Lymph # (Auto) 2.4 [place] # (Auto) 0.9 Eos # (Auto) 0.1 Baso # (Auto) 0.0 Abs Immat Gran (auto) 0.05 H Absolute Neuts (auto) 7.7 Absolute Nucleated RBC 0.000 Nucleated RBC % (auto) 0.0 PT INR D-Dimer High Sensitivty Sodium Potassium Chloride Carbon Dioxide Anion Gap BUN Creatinine Estim Creat Clear Calc Estimated GFR POC Glucose 107 167 H Random Glucose Fasting Glucose Osmolality Calcium Magnesium Total Bilirubin AST ALT Alkaline Phosphatase Total Creatine Kinase Troponin I High Sens B-Natriuretic Peptide Total Protein Albumin TSH Free Cortisol Urine Color Urine Appearance Urine pH Ur Specific [place] Urine Protein Urine Glucose (UA) Urine Ketones Urine Blood Urine Nitrite Ur Leukocyte Esterase Urine RBC Urine WBC Ur Squamous Epith Cells Urine Bacteria Hyaline Casts Urine Osmolality U Random Total Protein Ur Random Sodium Urine Creatinine Urine Microalbumin Microalb/Creat Ratio C. difficile Tox B Gene COVID-19 ([facility]) COVID-19 Clin Com Influenza Type A (PCR) Influenza Type B (PCR) RSV RNA Qual (PCR) SARS-CoV-2 RNA (RT-PCR) 06/16/22 06/16/22 06/16/22 05:40 07:33 11:04 WBC RBC Hgb Hct MCV MCH MCHC RDW Plt Count MPV Immature Gran % (Auto) Neut % (Auto) Lymph % (Auto) [place] % (Auto) Eos % (Auto) Baso % (Auto) Lymph # (Auto) [place] # (Auto) Eos # (Auto) Baso # (Auto) Abs Immat Gran (auto) Absolute Neuts (auto) Absolute Nucleated RBC Nucleated RBC % (auto) PT INR D-Dimer High Sensitivty Sodium 134 L Potassium 3.2 L D Chloride 95 L Carbon Dioxide 24 Anion Gap 18 BUN 17 H Creatinine 0.70 Estim Creat Clear Calc 85.5 Estimated GFR > 60 POC Glucose 90 278 H Random Glucose Fasting Glucose 73 Osmolality Calcium 8.6 Magnesium Total Bilirubin 1.2 H AST 48 H D ALT 22 Alkaline Phosphatase 49 Total Creatine Kinase Troponin I High Sens B-Natriuretic Peptide Total Protein 6.1 L Albumin 3.5 TSH Free Cortisol Urine Color Urine Appearance Urine pH Ur Specific [place] Urine Protein Urine Glucose (UA) Urine Ketones Urine Blood Urine Nitrite Ur Leukocyte Esterase Urine RBC Urine WBC Ur Squamous Epith Cells Urine Bacteria Hyaline Casts Urine Osmolality U Random Total Protein Ur Random Sodium Urine Creatinine Urine Microalbumin Microalb/Creat Ratio C. difficile Tox B Gene COVID-19 ([facility]) COVID-19 Clin Com Influenza Type A (PCR) Influenza Type B (PCR) RSV RNA Qual (PCR) SARS-CoV-2 RNA (RT-PCR) 06/16/22 06/16/22 06/17/22 16:35 19:32 05:26 WBC 8.0 RBC 4.33 L Hgb 12.1 L Hct 35.5 L MCV 82.0 MCH 27.9 MCHC 34.1 RDW 14.3 Plt Count 144 L MPV 9.7 Immature Gran % (Auto) Neut % (Auto) Lymph % (Auto) [place] % (Auto) Eos % (Auto) Baso % (Auto) Lymph # (Auto) [place] # (Auto) Eos # (Auto) Baso # (Auto) Abs Immat Gran (auto) Absolute Neuts (auto) Absolute Nucleated RBC 0.000 Nucleated RBC % (auto) 0.0 PT INR D-Dimer High Sensitivty Sodium Potassium Chloride Carbon Dioxide Anion Gap BUN Creatinine Estim Creat Clear Calc Estimated GFR POC Glucose 238 H 254 H Random Glucose Fasting Glucose Osmolality Calcium Magnesium Total Bilirubin AST ALT Alkaline Phosphatase Total Creatine Kinase Troponin I High Sens B-Natriuretic Peptide Total Protein Albumin TSH Free Cortisol Urine Color Urine Appearance Urine pH Ur Specific [place] Urine Protein Urine Glucose (UA) Urine Ketones Urine Blood Urine Nitrite Ur Leukocyte Esterase Urine RBC Urine WBC Ur Squamous Epith Cells Urine Bacteria Hyaline Casts Urine Osmolality U Random Total Protein Ur Random Sodium Urine Creatinine Urine Microalbumin Microalb/Creat Ratio C. difficile Tox B Gene COVID-19 ([facility]) COVID-19 Clin Com Influenza Type A (PCR) Influenza Type B (PCR) RSV RNA Qual (PCR) SARS-CoV-2 RNA (RT-PCR) 06/17/22 06/17/22 06/17/22 05:26 07:12 11:14 WBC RBC Hgb Hct MCV MCH MCHC RDW Plt Count MPV Immature Gran % (Auto) Neut % (Auto) Lymph % (Auto) [place] % (Auto) Eos % (Auto) Baso % (Auto) Lymph # (Auto) [place] # (Auto) Eos # (Auto) Baso # (Auto) Abs Immat Gran (auto) Absolute Neuts (auto) Absolute Nucleated RBC Nucleated RBC % (auto) PT INR D-Dimer High Sensitivty Sodium 134 L Potassium 3.2 L Chloride 94 L Carbon Dioxide 26 Anion Gap 17 BUN 14 Creatinine 0.65 Estim Creat Clear Calc 92.1 Estimated GFR > 60 POC Glucose 142 H 268 H Random Glucose Fasting Glucose 149 H D Osmolality Calcium 8.3 L Magnesium Total Bilirubin AST ALT Alkaline Phosphatase Total Creatine Kinase Troponin I High Sens B-Natriuretic Peptide Total Protein Albumin TSH Free Cortisol Urine Color Urine Appearance Urine pH Ur Specific [place] Urine Protein Urine Glucose (UA) Urine Ketones Urine Blood Urine Nitrite Ur Leukocyte Esterase Urine RBC Urine WBC Ur Squamous Epith Cells Urine Bacteria Hyaline Casts Urine Osmolality U Random Total Protein Ur Random Sodium Urine Creatinine Urine Microalbumin Microalb/Creat Ratio C. difficile Tox B Gene COVID-19 ([facility]) COVID-19 Clin Com Influenza Type A (PCR) Influenza Type B (PCR) RSV RNA Qual (PCR) SARS-CoV-2 RNA (RT-PCR) 06/17/22 06/17/22 06/18/22 15:52 19:38 05:39 WBC 6.8 RBC 4.33 L Hgb 11.9 L Hct 35.7 L MCV 82.4 MCH 27.5 MCHC 33.3 RDW 14.5 Plt Count 158 L MPV 9.5 Immature Gran % (Auto) Neut % (Auto) Lymph % (Auto) [place] % (Auto) Eos % (Auto) Baso % (Auto) Lymph # (Auto) [place] # (Auto) Eos # (Auto) Baso # (Auto) Abs Immat Gran (auto) Absolute Neuts (auto) Absolute Nucleated RBC 0.000 Nucleated RBC % (auto) 0.0 PT INR D-Dimer High Sensitivty Sodium Potassium Chloride Carbon Dioxide Anion Gap BUN Creatinine Estim Creat Clear Calc Estimated GFR POC Glucose 267 H 229 H Random Glucose Fasting Glucose Osmolality Calcium Magnesium Total Bilirubin AST ALT Alkaline Phosphatase Total Creatine Kinase Troponin I High Sens B-Natriuretic Peptide Total Protein Albumin TSH Free Cortisol Urine Color Urine Appearance Urine pH Ur Specific [place] Urine Protein Urine Glucose (UA) Urine Ketones Urine Blood Urine Nitrite Ur Leukocyte Esterase Urine RBC Urine WBC Ur Squamous Epith Cells Urine Bacteria Hyaline Casts Urine Osmolality U Random Total Protein Ur Random Sodium Urine Creatinine Urine Microalbumin Microalb/Creat Ratio C. difficile Tox B Gene COVID-19 ([facility]) COVID-19 Clin Com Influenza Type A (PCR) Influenza Type B (PCR) RSV RNA Qual (PCR) SARS-CoV-2 RNA (RT-PCR) 06/18/22 06/18/22 06/18/22 05:39 07:17 11:27 WBC RBC Hgb Hct MCV MCH MCHC RDW Plt Count MPV Immature Gran % (Auto) Neut % (Auto) Lymph % (Auto) [place] % (Auto) Eos % (Auto) Baso % (Auto) Lymph # (Auto) [place] # (Auto) Eos # (Auto) Baso # (Auto) Abs Immat Gran (auto) Absolute Neuts (auto) Absolute Nucleated RBC Nucleated RBC % (auto) PT INR D-Dimer High Sensitivty Sodium 133 L Potassium 3.5 Chloride 94 L Carbon Dioxide 29 Anion Gap 14 BUN 17 H Creatinine 0.72 Estim Creat Clear Calc 83.1 Estimated GFR > 60 POC Glucose 184 H 321 H Random Glucose Fasting Glucose 204 H D Osmolality Calcium 8.0 L Magnesium Total Bilirubin AST ALT Alkaline Phosphatase Total Creatine Kinase Troponin I High Sens B-Natriuretic Peptide Total Protein Albumin TSH Free Cortisol Urine Color Urine Appearance Urine pH Ur Specific [place] Urine Protein Urine Glucose (UA) Urine Ketones Urine Blood Urine Nitrite Ur Leukocyte Esterase Urine RBC Urine WBC Ur Squamous Epith Cells Urine Bacteria Hyaline Casts Urine Osmolality U Random Total Protein Ur Random Sodium Urine Creatinine Urine Microalbumin Microalb/Creat Ratio C. difficile Tox B Gene COVID-19 ([facility]) COVID-19 Clin Com Influenza Type A (PCR) Influenza Type B (PCR) RSV RNA Qual (PCR) SARS-CoV-2 RNA (RT-PCR) 06/18/22 06/18/22 06/18/22 15:56 19:40 20:57 WBC RBC Hgb Hct MCV MCH MCHC RDW Plt Count MPV Immature Gran % (Auto) Neut % (Auto) Lymph % (Auto) [place] % (Auto) Eos % (Auto) Baso % (Auto) Lymph # (Auto) [place] # (Auto) Eos # (Auto) Baso # (Auto) Abs Immat Gran (auto) Absolute Neuts (auto) Absolute Nucleated RBC Nucleated RBC % (auto) PT INR D-Dimer High Sensitivty Sodium Potassium Chloride Carbon Dioxide Anion Gap BUN Creatinine Estim Creat Clear Calc Estimated GFR POC Glucose 272 H 212 H Random Glucose Fasting Glucose Osmolality Calcium Magnesium Total Bilirubin AST ALT Alkaline Phosphatase Total Creatine Kinase Troponin I High Sens 37.4 H B-Natriuretic Peptide Total Protein Albumin TSH Free Cortisol Urine Color Urine Appearance Urine pH Ur Specific [place] Urine Protein Urine Glucose (UA) Urine Ketones Urine Blood Urine Nitrite Ur Leukocyte Esterase Urine RBC Urine WBC Ur Squamous Epith Cells Urine Bacteria Hyaline Casts Urine Osmolality U Random Total Protein Ur Random Sodium Urine Creatinine Urine Microalbumin Microalb/Creat Ratio C. difficile Tox B Gene COVID-19 ([facility]) COVID-19 Clin Com Influenza Type A (PCR) Influenza Type B (PCR) RSV RNA Qual (PCR) SARS-CoV-2 RNA (RT-PCR) 06/19/22 06/19/22 06/19/22 05:20 05:20 07:07 WBC 7.8 RBC 4.67 Hgb 12.8 L Hct 38.2 L MCV 81.8 MCH 27.4 MCHC 33.5 RDW 14.5 Plt Count 176 MPV 9.7 Immature Gran % (Auto) Neut % (Auto) Lymph % (Auto) [place] % (Auto) Eos % (Auto) Baso % (Auto) Lymph # (Auto) [place] # (Auto) Eos # (Auto) Baso # (Auto) Abs Immat Gran (auto) Absolute Neuts (auto) Absolute Nucleated RBC 0.000 Nucleated RBC % (auto) 0.0 PT INR D-Dimer High Sensitivty Sodium 132 L Potassium 3.4 Chloride 93 L Carbon Dioxide 28 Anion Gap 14 BUN 15 Creatinine 0.68 Estim Creat Clear Calc 88.0 Estimated GFR > 60 POC Glucose 160 H Random Glucose Fasting Glucose 144 H Osmolality Calcium 8.2 L Magnesium Total Bilirubin AST ALT Alkaline Phosphatase Total Creatine Kinase Troponin I High Sens B-Natriuretic Peptide Total Protein Albumin TSH Free Cortisol Urine Color Urine Appearance Urine pH Ur Specific [place] Urine Protein Urine Glucose (UA) Urine Ketones Urine Blood Urine Nitrite Ur Leukocyte Esterase Urine RBC Urine WBC Ur Squamous Epith Cells Urine Bacteria Hyaline Casts Urine Osmolality U Random Total Protein Ur Random Sodium Urine Creatinine Urine Microalbumin Microalb/Creat Ratio C. difficile Tox B Gene COVID-19 ([facility]) COVID-19 Clin Com Influenza Type A (PCR) Influenza Type B (PCR) RSV RNA Qual (PCR) SARS-CoV-2 RNA (RT-PCR) 06/19/22 06/19/22 06/19/22 10:51 13:20 15:43 WBC RBC Hgb Hct MCV MCH MCHC RDW Plt Count MPV Immature Gran % (Auto) Neut % (Auto) Lymph % (Auto) [place] % (Auto) Eos % (Auto) Baso % (Auto) Lymph # (Auto) [place] # (Auto) Eos # (Auto) Baso # (Auto) Abs Immat Gran (auto) Absolute Neuts (auto) Absolute Nucleated RBC Nucleated RBC % (auto) PT INR D-Dimer High Sensitivty Sodium Potassium Chloride Carbon Dioxide Anion Gap BUN Creatinine Estim Creat Clear Calc Estimated GFR POC Glucose 250 H 244 H Random Glucose Fasting Glucose Osmolality Calcium Magnesium Total Bilirubin AST ALT Alkaline Phosphatase Total Creatine Kinase Troponin I High Sens B-Natriuretic Peptide Total Protein Albumin TSH Free Cortisol Urine Color Urine Appearance Urine pH Ur Specific [place] Urine Protein Urine Glucose (UA) Urine Ketones Urine Blood Urine Nitrite Ur Leukocyte Esterase Urine RBC Urine WBC Ur Squamous Epith Cells Urine Bacteria Hyaline Casts Urine Osmolality U Random Total Protein Ur Random Sodium Urine Creatinine Urine Microalbumin Microalb/Creat Ratio C. difficile Tox B Gene COVID-19 ([facility]) Negative COVID-19 Clin Com See Note Influenza Type A (PCR) Influenza Type B (PCR) RSV RNA Qual (PCR) SARS-CoV-2 RNA (RT-PCR) 06/19/22 06/20/22 06/20/22 19:43 05:37 05:37 WBC 9.2 RBC 4.66 Hgb 12.6 L Hct 37.5 L MCV 80.5 MCH 27.0 MCHC 33.6 RDW 14.2 Plt Count 191 MPV 8.9 L Immature Gran % (Auto) Neut % (Auto) Lymph % (Auto) [place] % (Auto) Eos % (Auto) Baso % (Auto) Lymph # (Auto) [place] # (Auto) Eos # (Auto) Baso # (Auto) Abs Immat Gran (auto) Absolute Neuts (auto) Absolute Nucleated RBC 0.000 Nucleated RBC % (auto) 0.0 PT INR D-Dimer High Sensitivty Sodium 127 L Potassium 2.9 L Chloride 92 L Carbon Dioxide 26 Anion Gap 12 BUN 16 Creatinine 0.68 Estim Creat Clear Calc 88.0 Estimated GFR > 60 POC Glucose 202 H Random Glucose 109 Fasting Glucose Osmolality Calcium 7.9 L Magnesium Total Bilirubin AST ALT Alkaline Phosphatase Total Creatine Kinase Troponin I High Sens B-Natriuretic Peptide Total Protein Albumin TSH Free Cortisol Urine Color Urine Appearance Urine pH Ur Specific [place] Urine Protein Urine Glucose (UA) Urine Ketones Urine Blood Urine Nitrite Ur Leukocyte Esterase Urine RBC Urine WBC Ur Squamous Epith Cells Urine Bacteria Hyaline Casts Urine Osmolality U Random Total Protein Ur Random Sodium Urine Creatinine Urine Microalbumin Microalb/Creat Ratio C. difficile Tox B Gene COVID-19 ([facility]) COVID-19 Clin Com Influenza Type A (PCR) Influenza Type B (PCR) RSV RNA Qual (PCR) SARS-CoV-2 RNA (RT-PCR) 06/20/22 06/20/22 06/20/22 07:17 11:01 11:52 WBC RBC Hgb Hct MCV MCH MCHC RDW Plt Count MPV Immature Gran % (Auto) Neut % (Auto) Lymph % (Auto) [place] % (Auto) Eos % (Auto) Baso % (Auto) Lymph # (Auto) [place] # (Auto) Eos # (Auto) Baso # (Auto) Abs Immat Gran (auto) Absolute Neuts (auto) Absolute Nucleated RBC Nucleated RBC % (auto) PT INR D-Dimer High Sensitivty Sodium 127 L Potassium 4.1 D Chloride 93 L Carbon Dioxide 26 Anion Gap 12 BUN 17 H Creatinine 0.73 Estim Creat Clear Calc 82.0 Estimated GFR > 60 POC Glucose 112 163 H Random Glucose 158 H Fasting Glucose Osmolality Calcium 8.0 L Magnesium Total Bilirubin AST ALT Alkaline Phosphatase Total Creatine Kinase Troponin I High Sens B-Natriuretic Peptide Total Protein Albumin TSH Free Cortisol Urine Color Urine Appearance Urine pH Ur Specific [place] Urine Protein Urine Glucose (UA) Urine Ketones Urine Blood Urine Nitrite Ur Leukocyte Esterase Urine RBC Urine WBC Ur Squamous Epith Cells Urine Bacteria Hyaline Casts Urine Osmolality U Random Total Protein Ur Random Sodium Urine Creatinine Urine Microalbumin Microalb/Creat Ratio C. difficile Tox B Gene COVID-19 ([facility]) COVID-19 Clin Com Influenza Type A (PCR) Influenza Type B (PCR) RSV RNA Qual (PCR) SARS-CoV-2 RNA (RT-PCR) 06/20/22 06/20/22 06/20/22 15:00 15:00 16:16 WBC RBC Hgb Hct MCV MCH MCHC RDW Plt Count MPV Immature Gran % (Auto) Neut % (Auto) Lymph % (Auto) [place] % (Auto) Eos % (Auto) Baso % (Auto) Lymph # (Auto) [place] # (Auto) Eos # (Auto) Baso # (Auto) Abs Immat Gran (auto) Absolute Neuts (auto) Absolute Nucleated RBC Nucleated RBC % (auto) PT INR D-Dimer High Sensitivty Sodium Potassium Chloride Carbon Dioxide Anion Gap BUN Creatinine Estim Creat Clear Calc Estimated GFR POC Glucose 162 H Random Glucose Fasting Glucose Osmolality Calcium Magnesium Total Bilirubin AST ALT Alkaline Phosphatase Total Creatine Kinase Troponin I High Sens B-Natriuretic Peptide Total Protein Albumin TSH Free Cortisol Urine Color Urine Appearance Urine pH Ur Specific [place] Urine Protein Urine Glucose (UA) Urine Ketones Urine Blood Urine Nitrite Ur Leukocyte Esterase Urine RBC Urine WBC Ur Squamous Epith Cells Urine Bacteria Hyaline Casts Urine Osmolality U Random Total Protein Ur Random Sodium 78.0 Urine Creatinine 119.33 Urine Microalbumin Microalb/Creat Ratio C. difficile Tox B Gene COVID-19 ([facility]) COVID-19 Clin Com Influenza Type A (PCR) Influenza Type B (PCR) RSV RNA Qual (PCR) SARS-CoV-2 RNA (RT-PCR) 06/20/22 06/20/22 06/21/22 20:42 20:59 06:49 WBC 8.4 RBC 4.81 Hgb 13.2 L Hct 39.6 L MCV 82.3 MCH 27.4 MCHC 33.3 RDW 14.6 Plt Count 176 MPV 10.6 Immature Gran % (Auto) Neut % (Auto) Lymph % (Auto) [place] % (Auto) Eos % (Auto) Baso % (Auto) Lymph # (Auto) [place] # (Auto) Eos # (Auto) Baso # (Auto) Abs Immat Gran (auto) Absolute Neuts (auto) Absolute Nucleated RBC 0.000 Nucleated RBC % (auto) 0.0 PT INR D-Dimer High Sensitivty Sodium 125 L Potassium 4.1 Chloride 92 L Carbon Dioxide 20 L Anion Gap 17 BUN 19 H Creatinine 0.71 Estim Creat Clear Calc 84.3 Estimated GFR > 60 POC Glucose 165 H Random Glucose 136 H D Fasting Glucose Osmolality Calcium 7.8 L Magnesium Total Bilirubin AST ALT Alkaline Phosphatase Total Creatine Kinase Troponin I High Sens B-Natriuretic Peptide Total Protein Albumin TSH Free Cortisol Urine Color Urine Appearance Urine pH Ur Specific [place] Urine Protein Urine Glucose (UA) Urine Ketones Urine Blood Urine Nitrite Ur Leukocyte Esterase Urine RBC Urine WBC Ur Squamous Epith Cells Urine Bacteria Hyaline Casts Urine Osmolality U Random Total Protein Ur Random Sodium Urine Creatinine Urine Microalbumin Microalb/Creat Ratio C. difficile Tox B Gene COVID-19 ([facility]) COVID-19 Clin Com Influenza Type A (PCR) Influenza Type B (PCR) RSV RNA Qual (PCR) SARS-CoV-2 RNA (RT-PCR) 06/21/22 06/21/22 06/21/22 06:49 07:29 11:17 WBC RBC Hgb Hct MCV MCH MCHC RDW Plt Count MPV Immature Gran % (Auto) Neut % (Auto) Lymph % (Auto) [place] % (Auto) Eos % (Auto) Baso % (Auto) Lymph # (Auto) [place] # (Auto) Eos # (Auto) Baso # (Auto) Abs Immat Gran (auto) Absolute Neuts (auto) Absolute Nucleated RBC Nucleated RBC % (auto) PT INR D-Dimer High Sensitivty Sodium 128 L Potassium 3.5 Chloride 94 L Carbon Dioxide 23 Anion Gap 15 BUN 20 H Creatinine 0.69 Estim Creat Clear Calc 86.8 Estimated GFR > 60 POC Glucose 95 147 H Random Glucose 91 Fasting Glucose Osmolality Calcium 8.1 L Magnesium Total Bilirubin AST ALT Alkaline Phosphatase Total Creatine Kinase Troponin I High Sens B-Natriuretic Peptide Total Protein Albumin TSH Free Cortisol Urine Color Urine Appearance Urine pH Ur Specific [place] Urine Protein Urine Glucose (UA) Urine Ketones Urine Blood Urine Nitrite Ur Leukocyte Esterase Urine RBC Urine WBC Ur Squamous Epith Cells Urine Bacteria Hyaline Casts Urine Osmolality U Random Total Protein Ur Random Sodium Urine Creatinine Urine Microalbumin Microalb/Creat Ratio C. difficile Tox B Gene COVID-19 ([facility]) COVID-19 Clin Com Influenza Type A (PCR) Influenza Type B (PCR) RSV RNA Qual (PCR) SARS-CoV-2 RNA (RT-PCR) 06/21/22 06/21/22 06/21/22 15:25 16:17 20:05 WBC RBC Hgb Hct MCV MCH MCHC RDW Plt Count MPV Immature Gran % (Auto) Neut % (Auto) Lymph % (Auto) [place] % (Auto) Eos % (Auto) Baso % (Auto) Lymph # (Auto) [place] # (Auto) Eos # (Auto) Baso # (Auto) Abs Immat Gran (auto) Absolute Neuts (auto) Absolute Nucleated RBC Nucleated RBC % (auto) PT INR D-Dimer High Sensitivty Sodium 126 L Potassium 3.8 Chloride 93 L Carbon Dioxide 21 L Anion Gap 16 BUN 20 H Creatinine 0.68 Estim Creat Clear Calc 88.0 Estimated GFR > 60 POC Glucose 152 H 240 H Random Glucose 156 H Fasting Glucose Osmolality Calcium 7.8 L Magnesium Total Bilirubin AST ALT Alkaline Phosphatase Total Creatine Kinase Troponin I High Sens B-Natriuretic Peptide Total Protein Albumin TSH Free Cortisol Urine Color Urine Appearance Urine pH Ur Specific [place] Urine Protein Urine Glucose (UA) Urine Ketones Urine Blood Urine Nitrite Ur Leukocyte Esterase Urine RBC Urine WBC Ur Squamous Epith Cells Urine Bacteria Hyaline Casts Urine Osmolality U Random Total Protein Ur Random Sodium Urine Creatinine Urine Microalbumin Microalb/Creat Ratio C. difficile Tox B Gene COVID-19 ([facility]) COVID-19 Clin Com Influenza Type A (PCR) Influenza Type B (PCR) RSV RNA Qual (PCR) SARS-CoV-2 RNA (RT-PCR) 06/21/22 06/21/22 06/22/22 21:30 22:25 05:49 WBC 7.5 RBC 4.31 L Hgb 11.8 L Hct 34.7 L MCV 80.5 MCH 27.4 MCHC 34.0 RDW 14.3 Plt Count 230 D MPV 9.4 Immature Gran % (Auto) Neut % (Auto) Lymph % (Auto) [place] % (Auto) Eos % (Auto) Baso % (Auto) Lymph # (Auto) [place] # (Auto) Eos # (Auto) Baso # (Auto) Abs Immat Gran (auto) Absolute Neuts (auto) Absolute Nucleated RBC 0.000 Nucleated RBC % (auto) 0.0 PT INR D-Dimer High Sensitivty Sodium Potassium Chloride Carbon Dioxide Anion Gap BUN Creatinine Estim Creat Clear Calc Estimated GFR POC Glucose Random Glucose Fasting Glucose Osmolality Calcium Magnesium Total Bilirubin AST ALT Alkaline Phosphatase Total Creatine Kinase Troponin I High Sens B-Natriuretic Peptide Total Protein Albumin TSH Free Cortisol Urine Color Urine Appearance Urine pH Ur Specific [place] Urine Protein Urine Glucose (UA) Urine Ketones Urine Blood Urine Nitrite Ur Leukocyte Esterase Urine RBC Urine WBC Ur Squamous Epith Cells Urine Bacteria Hyaline Casts Urine Osmolality 829 U Random Total Protein Ur Random Sodium Urine Creatinine Urine Microalbumin Microalb/Creat Ratio C. difficile Tox B Gene NEGATIVE COVID-19 ([facility]) COVID-19 Clin Com Influenza Type A (PCR) Influenza Type B (PCR) RSV RNA Qual (PCR) SARS-CoV-2 RNA (RT-PCR) 06/22/22 06/22/22 06/22/22 05:49 05:49 07:21 WBC RBC Hgb Hct MCV MCH MCHC RDW Plt Count MPV Immature Gran % (Auto) Neut % (Auto) Lymph % (Auto) [place] % (Auto) Eos % (Auto) Baso % (Auto) Lymph # (Auto) [place] # (Auto) Eos # (Auto) Baso # (Auto) Abs Immat Gran (auto) Absolute Neuts (auto) Absolute Nucleated RBC Nucleated RBC % (auto) PT INR D-Dimer High Sensitivty Sodium 143 Potassium 3.9 Chloride 111 H Carbon Dioxide 25 Anion Gap 11 L BUN 9 Creatinine 0.66 Estim Creat Clear Calc 90.7 Estimated GFR > 60 POC Glucose 131 H Random Glucose 143 H Fasting Glucose Osmolality 272 L Calcium 8.6 D Magnesium Total Bilirubin AST ALT Alkaline Phosphatase Total Creatine Kinase Troponin I High Sens B-Natriuretic Peptide Total Protein Albumin TSH Free Cortisol Urine Color Urine Appearance Urine pH Ur Specific [place] Urine Protein Urine Glucose (UA) Urine Ketones Urine Blood Urine Nitrite Ur Leukocyte Esterase Urine RBC Urine WBC Ur Squamous Epith Cells Urine Bacteria Hyaline Casts Urine Osmolality U Random Total Protein Ur Random Sodium Urine Creatinine Urine Microalbumin Microalb/Creat Ratio C. difficile Tox B Gene COVID-19 ([facility]) COVID-19 Clin Com Influenza Type A (PCR) Influenza Type B (PCR) RSV RNA Qual (PCR) SARS-CoV-2 RNA (RT-PCR) 06/22/22 06/22/22 06/22/22 11:11 15:17 19:15 WBC RBC Hgb Hct MCV MCH MCHC RDW Plt Count MPV Immature Gran % (Auto) Neut % (Auto) Lymph % (Auto) [place] % (Auto) Eos % (Auto) Baso % (Auto) Lymph # (Auto) [place] # (Auto) Eos # (Auto) Baso # (Auto) Abs Immat Gran (auto) Absolute Neuts (auto) Absolute Nucleated RBC Nucleated RBC % (auto) PT INR D-Dimer High Sensitivty Sodium Potassium Chloride Carbon Dioxide Anion Gap BUN Creatinine Estim Creat Clear Calc Estimated GFR POC Glucose 205 H 170 H 159 H Random Glucose Fasting Glucose Osmolality Calcium Magnesium Total Bilirubin AST ALT Alkaline Phosphatase Total Creatine Kinase Troponin I High Sens B-Natriuretic Peptide Total Protein Albumin TSH Free Cortisol Urine Color Urine Appearance Urine pH Ur Specific [place] Urine Protein Urine Glucose (UA) Urine Ketones Urine Blood Urine Nitrite Ur Leukocyte Esterase Urine RBC Urine WBC Ur Squamous Epith Cells Urine Bacteria Hyaline Casts Urine Osmolality U Random Total Protein Ur Random Sodium Urine Creatinine Urine Microalbumin Microalb/Creat Ratio C. difficile Tox B Gene COVID-19 ([facility]) COVID-19 Clin Com Influenza Type A (PCR) Influenza Type B (PCR) RSV RNA Qual (PCR) SARS-CoV-2 RNA (RT-PCR) 06/23/22 06/23/22 06/23/22 06:59 10:55 15:43 WBC RBC Hgb Hct MCV MCH MCHC RDW Plt Count MPV Immature Gran % (Auto) Neut % (Auto) Lymph % (Auto) [place] % (Auto) Eos % (Auto) Baso % (Auto) Lymph # (Auto) [place] # (Auto) Eos # (Auto) Baso # (Auto) Abs Immat Gran (auto) Absolute Neuts (auto) Absolute Nucleated RBC Nucleated RBC % (auto) PT INR D-Dimer High Sensitivty Sodium Potassium Chloride Carbon Dioxide Anion Gap BUN Creatinine Estim Creat Clear Calc Estimated GFR POC Glucose 84 185 H 184 H Random Glucose Fasting Glucose Osmolality Calcium Magnesium Total Bilirubin AST ALT Alkaline Phosphatase Total Creatine Kinase Troponin I High Sens B-Natriuretic Peptide Total Protein Albumin TSH Free Cortisol Urine Color Urine Appearance Urine pH Ur Specific [place] Urine Protein Urine Glucose (UA) Urine Ketones Urine Blood Urine Nitrite Ur Leukocyte Esterase Urine RBC Urine WBC Ur Squamous Epith Cells Urine Bacteria Hyaline Casts Urine Osmolality U Random Total Protein Ur Random Sodium Urine Creatinine Urine Microalbumin Microalb/Creat Ratio C. difficile Tox B Gene COVID-19 ([facility]) COVID-19 Clin Com Influenza Type A (PCR) Influenza Type B (PCR) RSV RNA Qual (PCR) SARS-CoV-2 RNA (RT-PCR) 06/23/22 06/24/22 06/24/22 20:33 07:23 11:08 WBC RBC Hgb Hct MCV MCH MCHC RDW Plt Count MPV Immature Gran % (Auto) Neut % (Auto) Lymph % (Auto) [place] % (Auto) Eos % (Auto) Baso % (Auto) Lymph # (Auto) [place] # (Auto) Eos # (Auto) Baso # (Auto) Abs Immat Gran (auto) Absolute Neuts (auto) Absolute Nucleated RBC Nucleated RBC % (auto) PT INR D-Dimer High Sensitivty Sodium Potassium Chloride Carbon Dioxide Anion Gap BUN Creatinine Estim Creat Clear Calc Estimated GFR POC Glucose 167 H 121 H 168 H Random Glucose Fasting Glucose Osmolality Calcium Magnesium Total Bilirubin AST ALT Alkaline Phosphatase Total Creatine Kinase Troponin I High Sens B-Natriuretic Peptide Total Protein Albumin TSH Free Cortisol Urine Color Urine Appearance Urine pH Ur Specific [place] Urine Protein Urine Glucose (UA) Urine Ketones Urine Blood Urine Nitrite Ur Leukocyte Esterase Urine RBC Urine WBC Ur Squamous Epith Cells Urine Bacteria Hyaline Casts Urine Osmolality U Random Total Protein Ur Random Sodium Urine Creatinine Urine Microalbumin Microalb/Creat Ratio C. difficile Tox B Gene COVID-19 ([facility]) COVID-19 Clin Com Influenza Type A (PCR) Influenza Type B (PCR) RSV RNA Qual (PCR) SARS-CoV-2 RNA (RT-PCR) 06/24/22 06/24/22 06/25/22 16:09 19:58 06:05 WBC RBC Hgb Hct MCV MCH MCHC RDW Plt Count MPV Immature Gran % (Auto) Neut % (Auto) Lymph % (Auto) [place] % (Auto) Eos % (Auto) Baso % (Auto) Lymph # (Auto) [place] # (Auto) Eos # (Auto) Baso # (Auto) Abs Immat Gran (auto) Absolute Neuts (auto) Absolute Nucleated RBC Nucleated RBC % (auto) PT INR D-Dimer High Sensitivty Sodium 128 L Potassium 3.6 Chloride 92 L Carbon Dioxide 25 Anion Gap 15 BUN 15 Creatinine 0.58 Estim Creat Clear Calc 103.2 Estimated GFR > 60 POC Glucose 131 H 145 H Random Glucose 72 D Fasting Glucose Osmolality Calcium 8.1 L Magnesium Total Bilirubin AST ALT Alkaline Phosphatase Total Creatine Kinase Troponin I High Sens B-Natriuretic Peptide Total Protein Albumin TSH Free Cortisol Urine Color Urine Appearance Urine pH Ur Specific [place] Urine Protein Urine Glucose (UA) Urine Ketones Urine Blood Urine Nitrite Ur Leukocyte Esterase Urine RBC Urine WBC Ur Squamous Epith Cells Urine Bacteria Hyaline Casts Urine Osmolality U Random Total Protein Ur Random Sodium Urine Creatinine Urine Microalbumin Microalb/Creat Ratio C. difficile Tox B Gene COVID-19 ([facility]) COVID-19 Clin Com Influenza Type A (PCR) Influenza Type B (PCR) RSV RNA Qual (PCR) SARS-CoV-2 RNA (RT-PCR) 06/25/22 06/25/22 06/25/22 06:05 08:04 09:20 WBC RBC Hgb Hct MCV MCH MCHC RDW Plt Count MPV Immature Gran % (Auto) Neut % (Auto) Lymph % (Auto) [place] % (Auto) Eos % (Auto) Baso % (Auto) Lymph # (Auto) [place] # (Auto) Eos # (Auto) Baso # (Auto) Abs Immat Gran (auto) Absolute Neuts (auto) Absolute Nucleated RBC Nucleated RBC % (auto) PT INR D-Dimer High Sensitivty Sodium Potassium Chloride Carbon Dioxide Anion Gap BUN Creatinine Estim Creat Clear Calc Estimated GFR POC Glucose 80 Random Glucose Fasting Glucose Osmolality 263 L Calcium Magnesium Total Bilirubin AST ALT Alkaline Phosphatase Total Creatine Kinase Troponin I High Sens B-Natriuretic Peptide Total Protein Albumin TSH Free Cortisol Urine Color Urine Appearance Urine pH Ur Specific [place] Urine Protein Urine Glucose (UA) Urine Ketones Urine Blood Urine Nitrite Ur Leukocyte Esterase Urine RBC Urine WBC Ur Squamous Epith Cells Urine Bacteria Hyaline Casts Urine Osmolality 636 U Random Total Protein Ur Random Sodium Urine Creatinine Urine Microalbumin Microalb/Creat Ratio C. difficile Tox B Gene COVID-19 ([facility]) COVID-19 Clin Com Influenza Type A (PCR) Influenza Type B (PCR) RSV RNA Qual (PCR) SARS-CoV-2 RNA (RT-PCR) 06/25/22 06/25/22 06/25/22 09:20 11:12 14:28 WBC RBC Hgb Hct MCV MCH MCHC RDW Plt Count MPV Immature Gran % (Auto) Neut % (Auto) Lymph % (Auto) [place] % (Auto) Eos % (Auto) Baso % (Auto) Lymph # (Auto) [place] # (Auto) Eos # (Auto) Baso # (Auto) Abs Immat Gran (auto) Absolute Neuts (auto) Absolute Nucleated RBC Nucleated RBC % (auto) PT INR D-Dimer High Sensitivty Sodium 125 L Potassium 3.8 Chloride 92 L Carbon Dioxide 24 Anion Gap 13 BUN 21 H Creatinine 0.71 Estim Creat Clear Calc 84.3 Estimated GFR > 60 POC Glucose 177 H Random Glucose 260 H Fasting Glucose Osmolality Calcium 8.0 L Magnesium Total Bilirubin AST ALT Alkaline Phosphatase Total Creatine Kinase Troponin I High Sens B-Natriuretic Peptide Total Protein Albumin TSH Free Cortisol Urine Color Urine Appearance Urine pH Ur Specific [place] Urine Protein Urine Glucose (UA) Urine Ketones Urine Blood Urine Nitrite Ur Leukocyte Esterase Urine RBC Urine WBC Ur Squamous Epith Cells Urine Bacteria Hyaline Casts Urine Osmolality U Random Total Protein Ur Random Sodium 77.0 Urine Creatinine Urine Microalbumin Microalb/Creat Ratio C. difficile Tox B Gene COVID-19 ([facility]) COVID-19 Clin Com Influenza Type A (PCR) Influenza Type B (PCR) RSV RNA Qual (PCR) SARS-CoV-2 RNA (RT-PCR) 06/25/22 06/25/22 06/26/22 14:49 19:03 06:25 WBC RBC Hgb Hct MCV MCH MCHC RDW Plt Count MPV Immature Gran % (Auto) Neut % (Auto) Lymph % (Auto) [place] % (Auto) Eos % (Auto) Baso % (Auto) Lymph # (Auto) [place] # (Auto) Eos # (Auto) Baso # (Auto) Abs Immat Gran (auto) Absolute Neuts (auto) Absolute Nucleated RBC Nucleated RBC % (auto) PT INR D-Dimer High Sensitivty Sodium Potassium Chloride Carbon Dioxide Anion Gap BUN Creatinine Estim Creat Clear Calc Estimated GFR POC Glucose 261 H 212 H Random Glucose Fasting Glucose Osmolality Calcium Magnesium Total Bilirubin AST ALT Alkaline Phosphatase Total Creatine Kinase Troponin I High Sens B-Natriuretic Peptide Total Protein Albumin TSH 1.16 Free Cortisol Urine Color Urine Appearance Urine pH Ur Specific [place] Urine Protein Urine Glucose (UA) Urine Ketones Urine Blood Urine Nitrite Ur Leukocyte Esterase Urine RBC Urine WBC Ur Squamous Epith Cells Urine Bacteria Hyaline Casts Urine Osmolality U Random Total Protein Ur Random Sodium Urine Creatinine Urine Microalbumin Microalb/Creat Ratio C. difficile Tox B Gene COVID-19 ([facility]) COVID-19 Clin Com Influenza Type A (PCR) Influenza Type B (PCR) RSV RNA Qual (PCR) SARS-CoV-2 RNA (RT-PCR) 06/26/22 06/26/22 06/26/22 06:25 06:25 07:22 WBC RBC Hgb Hct MCV MCH MCHC RDW Plt Count MPV Immature Gran % (Auto) Neut % (Auto) Lymph % (Auto) [place] % (Auto) Eos % (Auto) Baso % (Auto) Lymph # (Auto) [place] # (Auto) Eos # (Auto) Baso # (Auto) Abs Immat Gran (auto) Absolute Neuts (auto) Absolute Nucleated RBC Nucleated RBC % (auto) PT INR D-Dimer High Sensitivty Sodium 127 L Potassium 3.6 Chloride 94 L Carbon Dioxide 25 Anion Gap 12 BUN 16 Creatinine 0.60 Estim Creat Clear Calc 99.8 Estimated GFR > 60 POC Glucose 75 Random Glucose 65 Fasting Glucose Osmolality Calcium 8.1 L Magnesium Total Bilirubin AST ALT Alkaline Phosphatase Total Creatine Kinase Troponin I High Sens B-Natriuretic Peptide Total Protein Albumin TSH Free Cortisol 1.16 H Urine Color Urine Appearance Urine pH Ur Specific [place] Urine Protein Urine Glucose (UA) Urine Ketones Urine Blood Urine Nitrite Ur Leukocyte Esterase Urine RBC Urine WBC Ur Squamous Epith Cells Urine Bacteria Hyaline Casts Urine Osmolality U Random Total Protein Ur Random Sodium Urine Creatinine Urine Microalbumin Microalb/Creat Ratio C. difficile Tox B Gene COVID-19 ([facility]) COVID-19 Clin Com Influenza Type A (PCR) Influenza Type B (PCR) RSV RNA Qual (PCR) SARS-CoV-2 RNA (RT-PCR) 06/26/22 06/26/22 06/26/22 11:33 15:33 19:59 WBC RBC Hgb Hct MCV MCH MCHC RDW Plt Count MPV Immature Gran % (Auto) Neut % (Auto) Lymph % (Auto) [place] % (Auto) Eos % (Auto) Baso % (Auto) Lymph # (Auto) [place] # (Auto) Eos # (Auto) Baso # (Auto) Abs Immat Gran (auto) Absolute Neuts (auto) Absolute Nucleated RBC Nucleated RBC % (auto) PT INR D-Dimer High Sensitivty Sodium Potassium Chloride Carbon Dioxide Anion Gap BUN Creatinine Estim Creat Clear Calc Estimated GFR POC Glucose 149 H 262 H 213 H Random Glucose Fasting Glucose Osmolality Calcium Magnesium Total Bilirubin AST ALT Alkaline Phosphatase Total Creatine Kinase Troponin I High Sens B-Natriuretic Peptide Total Protein Albumin TSH Free Cortisol Urine Color Urine Appearance Urine pH Ur Specific [place] Urine Protein Urine Glucose (UA) Urine Ketones Urine Blood Urine Nitrite Ur Leukocyte Esterase Urine RBC Urine WBC Ur Squamous Epith Cells Urine Bacteria Hyaline Casts Urine Osmolality U Random Total Protein Ur Random Sodium Urine Creatinine Urine Microalbumin Microalb/Creat Ratio C. difficile Tox B Gene COVID-19 ([facility]) COVID-19 Clin Com Influenza Type A (PCR) Influenza Type B (PCR) RSV RNA Qual (PCR) SARS-CoV-2 RNA (RT-PCR) 06/27/22 06/27/22 06/27/22 05:17 05:17 07:03 WBC 8.5 RBC 4.84 Hgb 13.4 L Hct 39.8 L MCV 82.2 MCH 27.7 MCHC 33.7 RDW 14.6 Plt Count 330 D MPV 8.6 L Immature Gran % (Auto) Neut % (Auto) Lymph % (Auto) [place] % (Auto) Eos % (Auto) Baso % (Auto) Lymph # (Auto) [place] # (Auto) Eos # (Auto) Baso # (Auto) Abs Immat Gran (auto) Absolute Neuts (auto) Absolute Nucleated RBC 0.000 Nucleated RBC % (auto) 0.0 PT INR D-Dimer High Sensitivty Sodium 127 L Potassium 3.9 Chloride 94 L Carbon Dioxide 23 Anion Gap 14 BUN 16 Creatinine 0.57 Estim Creat Clear Calc 105.0 Estimated GFR > 60 POC Glucose 99 Random Glucose Fasting Glucose 102 H Osmolality Calcium 8.3 L Magnesium Total Bilirubin AST ALT Alkaline Phosphatase Total Creatine Kinase Troponin I High Sens B-Natriuretic Peptide Total Protein Albumin TSH Free Cortisol Urine Color Urine Appearance Urine pH Ur Specific [place] Urine Protein Urine Glucose (UA) Urine Ketones Urine Blood Urine Nitrite Ur Leukocyte Esterase Urine RBC Urine WBC Ur Squamous Epith Cells Urine Bacteria Hyaline Casts Urine Osmolality U Random Total Protein Ur Random Sodium Urine Creatinine Urine Microalbumin Microalb/Creat Ratio C. difficile Tox B Gene COVID-19 ([facility]) COVID-19 Clin Com Influenza Type A (PCR) Influenza Type B (PCR) RSV RNA Qual (PCR) SARS-CoV-2 RNA (RT-PCR) 06/27/22 06/27/22 06/27/22 11:04 15:47 18:15 WBC RBC Hgb Hct MCV MCH MCHC RDW Plt Count MPV Immature Gran % (Auto) Neut % (Auto) Lymph % (Auto) [place] % (Auto) Eos % (Auto) Baso % (Auto) Lymph # (Auto) [place] # (Auto) Eos # (Auto) Baso # (Auto) Abs Immat Gran (auto) Absolute Neuts (auto) Absolute Nucleated RBC Nucleated RBC % (auto) PT INR D-Dimer High Sensitivty Sodium Potassium Chloride Carbon Dioxide Anion Gap BUN Creatinine Estim Creat Clear Calc Estimated GFR POC Glucose 131 H 138 H Random Glucose Fasting Glucose Osmolality Calcium Magnesium Total Bilirubin AST ALT Alkaline Phosphatase Total Creatine Kinase Troponin I High Sens B-Natriuretic Peptide Total Protein Albumin TSH Free Cortisol Urine Color Urine Appearance Urine pH Ur Specific [place] Urine Protein Urine Glucose (UA) Urine Ketones Urine Blood Urine Nitrite Ur Leukocyte Esterase Urine RBC Urine WBC Ur Squamous Epith Cells Urine Bacteria Hyaline Casts Urine Osmolality U Random Total Protein 54 H Ur Random Sodium Urine Creatinine 61.32 Urine Microalbumin 411.0 Microalb/Creat Ratio 670.2 C. difficile Tox B Gene COVID-19 ([facility]) COVID-19 Clin Com Influenza Type A (PCR) Influenza Type B (PCR) RSV RNA Qual (PCR) SARS-CoV-2 RNA (RT-PCR) 06/27/22 06/28/22 06/28/22 19:20 05:12 05:12 WBC 9.0 RBC 5.17 Hgb 13.9 L Hct 42.1 MCV 81.4 MCH 26.9 L MCHC 33.0 RDW 14.6 Plt Count 338 MPV 8.3 L Immature Gran % (Auto) Neut % (Auto) Lymph % (Auto) [place] % (Auto) Eos % (Auto) Baso % (Auto) Lymph # (Auto) [place] # (Auto) Eos # (Auto) Baso # (Auto) Abs Immat Gran (auto) Absolute Neuts (auto) Absolute Nucleated RBC 0.000 Nucleated RBC % (auto) 0.0 PT INR D-Dimer High Sensitivty Sodium 129 L Potassium 4.0 Chloride 92 L Carbon Dioxide 26 Anion Gap 15 BUN 11 Creatinine 0.59 Estim Creat Clear Calc 101.5 Estimated GFR > 60 POC Glucose 113 Random Glucose Fasting Glucose 44 L* Osmolality Calcium 8.6 Magnesium Total Bilirubin AST ALT Alkaline Phosphatase Total Creatine Kinase Troponin I High Sens B-Natriuretic Peptide Total Protein Albumin TSH Free Cortisol Urine Color Urine Appearance Urine pH Ur Specific [place] Urine Protein Urine Glucose (UA) Urine Ketones Urine Blood Urine Nitrite Ur Leukocyte Esterase Urine RBC Urine WBC Ur Squamous Epith Cells Urine Bacteria Hyaline Casts Urine Osmolality U Random Total Protein Ur Random Sodium Urine Creatinine Urine Microalbumin Microalb/Creat Ratio C. difficile Tox B Gene COVID-19 ([facility]) COVID-19 Clin Com Influenza Type A (PCR) Influenza Type B (PCR) RSV RNA Qual (PCR) SARS-CoV-2 RNA (RT-PCR) 06/28/22 06/28/22 06/28/22 07:27 11:15 15:16 WBC RBC Hgb Hct MCV MCH MCHC RDW Plt Count MPV Immature Gran % (Auto) Neut % (Auto) Lymph % (Auto) [place] % (Auto) Eos % (Auto) Baso % (Auto) Lymph # (Auto) [place] # (Auto) Eos # (Auto) Baso # (Auto) Abs Immat Gran (auto) Absolute Neuts (auto) Absolute Nucleated RBC Nucleated RBC % (auto) PT INR D-Dimer High Sensitivty Sodium Potassium Chloride Carbon Dioxide Anion Gap BUN Creatinine Estim Creat Clear Calc Estimated GFR POC Glucose 90 122 H 149 H Random Glucose Fasting Glucose Osmolality Calcium Magnesium Total Bilirubin AST ALT Alkaline Phosphatase Total Creatine Kinase Troponin I High Sens B-Natriuretic Peptide Total Protein Albumin TSH Free Cortisol Urine Color Urine Appearance Urine pH Ur Specific [place] Urine Protein Urine Glucose (UA) Urine Ketones Urine Blood Urine Nitrite Ur Leukocyte Esterase Urine RBC Urine WBC Ur Squamous Epith Cells Urine Bacteria Hyaline Casts Urine Osmolality U Random Total Protein Ur Random Sodium Urine Creatinine Urine Microalbumin Microalb/Creat Ratio C. difficile Tox B Gene COVID-19 ([facility]) COVID-19 Clin Com Influenza Type A (PCR) Influenza Type B (PCR) RSV RNA Qual (PCR) SARS-CoV-2 RNA (RT-PCR) 06/28/22 06/29/22 06/29/22 19:43 05:45 05:45 WBC 6.5 RBC 4.87 Hgb 13.4 L Hct 40.3 L MCV 82.8 MCH 27.5 MCHC 33.3 RDW 14.6 Plt Count 280 MPV 8.4 L Immature Gran % (Auto) Neut % (Auto) Lymph % (Auto) [place] % (Auto) Eos % (Auto) Baso % (Auto) Lymph # (Auto) [place] # (Auto) Eos # (Auto) Baso # (Auto) Abs Immat Gran (auto) Absolute Neuts (auto) Absolute Nucleated RBC 0.000 Nucleated RBC % (auto) 0.0 PT INR D-Dimer High Sensitivty Sodium 126 L Potassium 4.1 Chloride 92 L Carbon Dioxide 25 Anion Gap 13 BUN 13 Creatinine 0.57 Estim Creat Clear Calc 105.0 Estimated GFR > 60 POC Glucose 193 H Random Glucose Fasting Glucose 119 H Osmolality Calcium 8.3 L Magnesium Total Bilirubin AST ALT Alkaline Phosphatase Total Creatine Kinase Troponin I High Sens B-Natriuretic Peptide Total Protein Albumin TSH Free Cortisol Urine Color Urine Appearance Urine pH Ur Specific [place] Urine Protein Urine Glucose (UA) Urine Ketones Urine Blood Urine Nitrite Ur Leukocyte Esterase Urine RBC Urine WBC Ur Squamous Epith Cells Urine Bacteria Hyaline Casts Urine Osmolality U Random Total Protein Ur Random Sodium Urine Creatinine Urine Microalbumin Microalb/Creat Ratio C. difficile Tox B Gene COVID-19 ([facility]) COVID-19 Clin Com Influenza Type A (PCR) Influenza Type B (PCR) RSV RNA Qual (PCR) SARS-CoV-2 RNA (RT-PCR) 06/29/22 06/29/22 06/29/22 08:08 11:24 16:08 WBC RBC Hgb Hct MCV MCH MCHC RDW Plt Count MPV Immature Gran % (Auto) Neut % (Auto) Lymph % (Auto) [place] % (Auto) Eos % (Auto) Baso % (Auto) Lymph # (Auto) [place] # (Auto) Eos # (Auto) Baso # (Auto) Abs Immat Gran (auto) Absolute Neuts (auto) Absolute Nucleated RBC Nucleated RBC % (auto) PT INR D-Dimer High Sensitivty Sodium Potassium Chloride Carbon Dioxide Anion Gap BUN Creatinine Estim Creat Clear Calc Estimated GFR POC Glucose 124 H 173 H 96 Random Glucose Fasting Glucose Osmolality Calcium Magnesium Total Bilirubin AST ALT Alkaline Phosphatase Total Creatine Kinase Troponin I High Sens B-Natriuretic Peptide Total Protein Albumin TSH Free Cortisol Urine Color Urine Appearance Urine pH Ur Specific [place] Urine Protein Urine Glucose (UA) Urine Ketones Urine Blood Urine Nitrite Ur Leukocyte Esterase Urine RBC Urine WBC Ur Squamous Epith Cells Urine Bacteria Hyaline Casts Urine Osmolality U Random Total Protein Ur Random Sodium Urine Creatinine Urine Microalbumin Microalb/Creat Ratio C. difficile Tox B Gene COVID-19 ([facility]) COVID-19 Clin Com Influenza Type A (PCR) Influenza Type B (PCR) RSV RNA Qual (PCR) SARS-CoV-2 RNA (RT-PCR) 06/29/22 06/30/22 06/30/22 19:04 07:54 09:23 WBC 9.1 RBC 5.10 Hgb 13.9 L Hct 42.0 MCV 82.4 MCH 27.3 MCHC 33.1 RDW 14.8 Plt Count 300 MPV 8.4 L Immature Gran % (Auto) 0.3 Neut % (Auto) 73.0 Lymph % (Auto) 17.9 L [place] % (Auto) 8.1 Eos % (Auto) 0.3 Baso % (Auto) 0.4 Lymph # (Auto) 1.6 [place] # (Auto) 0.7 Eos # (Auto) 0.0 Baso # (Auto) 0.0 Abs Immat Gran (auto) 0.03 Absolute Neuts (auto) 6.6 Absolute Nucleated RBC 0.000 Nucleated RBC % (auto) 0.0 PT INR D-Dimer High Sensitivty Sodium Potassium Chloride Carbon Dioxide Anion Gap BUN Creatinine Estim Creat Clear Calc Estimated GFR POC Glucose 130 H 62 Random Glucose Fasting Glucose Osmolality Calcium Magnesium Total Bilirubin AST ALT Alkaline Phosphatase Total Creatine Kinase Troponin I High Sens B-Natriuretic Peptide Total Protein Albumin TSH Free Cortisol Urine Color Urine Appearance Urine pH Ur Specific [place] Urine Protein Urine Glucose (UA) Urine Ketones Urine Blood Urine Nitrite Ur Leukocyte Esterase Urine RBC Urine WBC Ur Squamous Epith Cells Urine Bacteria Hyaline Casts Urine Osmolality U Random Total Protein Ur Random Sodium Urine Creatinine Urine Microalbumin Microalb/Creat Ratio C. difficile Tox B Gene COVID-19 ([facility]) COVID-19 Clin Com Influenza Type A (PCR) Influenza Type B (PCR) RSV RNA Qual (PCR) SARS-CoV-2 RNA (RT-PCR) 06/30/22 06/30/22 06/30/22 09:23 11:24 15:28 WBC RBC Hgb Hct MCV MCH MCHC RDW Plt Count MPV Immature Gran % (Auto) Neut % (Auto) Lymph % (Auto) [place] % (Auto) Eos % (Auto) Baso % (Auto) Lymph # (Auto) [place] # (Auto) Eos # (Auto) Baso # (Auto) Abs Immat Gran (auto) Absolute Neuts (auto) Absolute Nucleated RBC Nucleated RBC % (auto) PT INR D-Dimer High Sensitivty Sodium 130 L Potassium 4.2 Chloride 95 L Carbon Dioxide 25 Anion Gap 14 BUN 32 H D Creatinine 0.65 Estim Creat Clear Calc 92.1 Estimated GFR > 60 POC Glucose 139 H 133 H Random Glucose 147 H D Fasting Glucose Osmolality Calcium 8.6 Magnesium Total Bilirubin AST ALT Alkaline Phosphatase Total Creatine Kinase Troponin I High Sens B-Natriuretic Peptide Total Protein Albumin TSH Free Cortisol Urine Color Urine Appearance Urine pH Ur Specific [place] Urine Protein Urine Glucose (UA) Urine Ketones Urine Blood Urine Nitrite Ur Leukocyte Esterase Urine RBC Urine WBC Ur Squamous Epith Cells Urine Bacteria Hyaline Casts Urine Osmolality U Random Total Protein Ur Random Sodium Urine Creatinine Urine Microalbumin Microalb/Creat Ratio C. difficile Tox B Gene COVID-19 ([facility]) COVID-19 Clin Com Influenza Type A (PCR) Influenza Type B (PCR) RSV RNA Qual (PCR) SARS-CoV-2 RNA (RT-PCR) 06/30/22 07/01/22 07/01/22 19:53 05:39 05:39 WBC 9.2 RBC 5.05 Hgb 13.7 L Hct 41.3 L MCV 81.8 MCH 27.1 MCHC 33.2 RDW 14.8 Plt Count 273 MPV 8.0 L Immature Gran % (Auto) Neut % (Auto) Lymph % (Auto) [place] % (Auto) Eos % (Auto) Baso % (Auto) Lymph # (Auto) [place] # (Auto) Eos # (Auto) Baso # (Auto) Abs Immat Gran (auto) Absolute Neuts (auto) Absolute Nucleated RBC 0.000 Nucleated RBC % (auto) 0.0 PT INR D-Dimer High Sensitivty Sodium 128 L Potassium 4.1 Chloride 96 Carbon Dioxide 22 Anion Gap 14 BUN 19 H Creatinine 0.63 Estim Creat Clear Calc 95.0 Estimated GFR > 60 POC Glucose 244 H Random Glucose Fasting Glucose 111 H D Osmolality Calcium 8.3 L Magnesium Total Bilirubin AST ALT Alkaline Phosphatase Total Creatine Kinase Troponin I High Sens B-Natriuretic Peptide Total Protein Albumin TSH Free Cortisol Urine Color Urine Appearance Urine pH Ur Specific [place] Urine Protein Urine Glucose (UA) Urine Ketones Urine Blood Urine Nitrite Ur Leukocyte Esterase Urine RBC Urine WBC Ur Squamous Epith Cells Urine Bacteria Hyaline Casts Urine Osmolality U Random Total Protein Ur Random Sodium Urine Creatinine Urine Microalbumin Microalb/Creat Ratio C. difficile Tox B Gene COVID-19 ([facility]) COVID-19 Clin Com Influenza Type A (PCR) Influenza Type B (PCR) RSV RNA Qual (PCR) SARS-CoV-2 RNA (RT-PCR) 07/01/22 07/01/22 07/01/22 07:32 10:55 16:18 WBC RBC Hgb Hct MCV MCH MCHC RDW Plt Count MPV Immature Gran % (Auto) Neut % (Auto) Lymph % (Auto) [place] % (Auto) Eos % (Auto) Baso % (Auto) Lymph # (Auto) [place] # (Auto) Eos # (Auto) Baso # (Auto) Abs Immat Gran (auto) Absolute Neuts (auto) Absolute Nucleated RBC Nucleated RBC % (auto) PT INR D-Dimer High Sensitivty Sodium Potassium Chloride Carbon Dioxide Anion Gap BUN Creatinine Estim Creat Clear Calc Estimated GFR POC Glucose 105 229 H 104 Random Glucose Fasting Glucose Osmolality Calcium Magnesium Total Bilirubin AST ALT Alkaline Phosphatase Total Creatine Kinase Troponin I High Sens B-Natriuretic Peptide Total Protein Albumin TSH Free Cortisol Urine Color Urine Appearance Urine pH Ur Specific [place] Urine Protein Urine Glucose (UA) Urine Ketones Urine Blood Urine Nitrite Ur Leukocyte Esterase Urine RBC Urine WBC Ur Squamous Epith Cells Urine Bacteria Hyaline Casts Urine Osmolality U Random Total Protein Ur Random Sodium Urine Creatinine Urine Microalbumin Microalb/Creat Ratio C. difficile Tox B Gene COVID-19 ([facility]) COVID-19 Clin Com Influenza Type A (PCR) Influenza Type B (PCR) RSV RNA Qual (PCR) SARS-CoV-2 RNA (RT-PCR) 07/01/22 07/02/22 07/02/22 19:15 05:38 05:38 WBC 9.5 RBC 4.78 Hgb 13.2 L Hct 39.2 L MCV 82.0 MCH 27.6 MCHC 33.7 RDW 14.9 Plt Count 233 MPV 8.0 L Immature Gran % (Auto) Neut % (Auto) Lymph % (Auto) [place] % (Auto) Eos % (Auto) Baso % (Auto) Lymph # (Auto) [place] # (Auto) Eos # (Auto) Baso # (Auto) Abs Immat Gran (auto) Absolute Neuts (auto) Absolute Nucleated RBC 0.000 Nucleated RBC % (auto) 0.0 PT INR D-Dimer High Sensitivty Sodium 131 L Potassium 3.9 Chloride 98 Carbon Dioxide 25 Anion Gap 12 BUN 22 H Creatinine 0.60 Estim Creat Clear Calc 99.8 Estimated GFR > 60 POC Glucose 165 H Random Glucose Fasting Glucose 103 H Osmolality Calcium 8.5 Magnesium Total Bilirubin AST ALT Alkaline Phosphatase Total Creatine Kinase Troponin I High Sens B-Natriuretic Peptide Total Protein Albumin TSH Free Cortisol Urine Color Urine Appearance Urine pH Ur Specific [place] Urine Protein Urine Glucose (UA) Urine Ketones Urine Blood Urine Nitrite Ur Leukocyte Esterase Urine RBC Urine WBC Ur Squamous Epith Cells Urine Bacteria Hyaline Casts Urine Osmolality U Random Total Protein Ur Random Sodium Urine Creatinine Urine Microalbumin Microalb/Creat Ratio C. difficile Tox B Gene COVID-19 ([facility]) COVID-19 Clin Com Influenza Type A (PCR) Influenza Type B (PCR) RSV RNA Qual (PCR) SARS-CoV-2 RNA (RT-PCR) 07/02/22 07/02/22 07/02/22 07:21 11:27 15:38 WBC RBC Hgb Hct MCV MCH MCHC RDW Plt Count MPV Immature Gran % (Auto) Neut % (Auto) Lymph % (Auto) [place] % (Auto) Eos % (Auto) Baso % (Auto) Lymph # (Auto) [place] # (Auto) Eos # (Auto) Baso # (Auto) Abs Immat Gran (auto) Absolute Neuts (auto) Absolute Nucleated RBC Nucleated RBC % (auto) PT INR D-Dimer High Sensitivty Sodium Potassium Chloride Carbon Dioxide Anion Gap BUN Creatinine Estim Creat Clear Calc Estimated GFR POC Glucose 93 236 H 235 H Random Glucose Fasting Glucose Osmolality Calcium Magnesium Total Bilirubin AST ALT Alkaline Phosphatase Total Creatine Kinase Troponin I High Sens B-Natriuretic Peptide Total Protein Albumin TSH Free Cortisol Urine Color Urine Appearance Urine pH Ur Specific [place] Urine Protein Urine Glucose (UA) Urine Ketones Urine Blood Urine Nitrite Ur Leukocyte Esterase Urine RBC Urine WBC Ur Squamous Epith Cells Urine Bacteria Hyaline Casts Urine Osmolality U Random Total Protein Ur Random Sodium Urine Creatinine Urine Microalbumin Microalb/Creat Ratio C. difficile Tox B Gene COVID-19 ([facility]) COVID-19 Clin Com Influenza Type A (PCR) Influenza Type B (PCR) RSV RNA Qual (PCR) SARS-CoV-2 RNA (RT-PCR) 07/02/22 07/03/22 07/03/22 19:21 05:02 07:28 WBC RBC Hgb Hct MCV MCH MCHC RDW Plt Count MPV Immature Gran % (Auto) Neut % (Auto) Lymph % (Auto) [place] % (Auto) Eos % (Auto) Baso % (Auto) Lymph # (Auto) [place] # (Auto) Eos # (Auto) Baso # (Auto) Abs Immat Gran (auto) Absolute Neuts (auto) Absolute Nucleated RBC Nucleated RBC % (auto) PT INR D-Dimer High Sensitivty Sodium 132 L Potassium 3.9 Chloride 97 Carbon Dioxide 27 Anion Gap 12 BUN 33 H Creatinine 0.65 Estim Creat Clear Calc 92.1 Estimated GFR > 60 POC Glucose 294 H 97 Random Glucose 81 Fasting Glucose Osmolality Calcium 8.5 Magnesium Total Bilirubin AST ALT Alkaline Phosphatase Total Creatine Kinase Troponin I High Sens B-Natriuretic Peptide Total Protein Albumin TSH Free Cortisol Urine Color Urine Appearance Urine pH Ur Specific [place] Urine Protein Urine Glucose (UA) Urine Ketones Urine Blood Urine Nitrite Ur Leukocyte Esterase Urine RBC Urine WBC Ur Squamous Epith Cells Urine Bacteria Hyaline Casts Urine Osmolality U Random Total Protein Ur Random Sodium Urine Creatinine Urine Microalbumin Microalb/Creat Ratio C. difficile Tox B Gene COVID-19 ([facility]) COVID-19 Clin Com Influenza Type A (PCR) Influenza Type B (PCR) RSV RNA Qual (PCR) SARS-CoV-2 RNA (RT-PCR) 07/03/22 07/03/22 07/03/22 11:12 15:39 19:27 WBC RBC Hgb Hct MCV MCH MCHC RDW Plt Count MPV Immature Gran % (Auto) Neut % (Auto) Lymph % (Auto) [place] % (Auto) Eos % (Auto) Baso % (Auto) Lymph # (Auto) [place] # (Auto) Eos # (Auto) Baso # (Auto) Abs Immat Gran (auto) Absolute Neuts (auto) Absolute Nucleated RBC Nucleated RBC % (auto) PT INR D-Dimer High Sensitivty Sodium Potassium Chloride Carbon Dioxide Anion Gap BUN Creatinine Estim Creat Clear Calc Estimated GFR POC Glucose 323 H 240 H 123 H Random Glucose Fasting Glucose Osmolality Calcium Magnesium Total Bilirubin AST ALT Alkaline Phosphatase Total Creatine Kinase Troponin I High Sens B-Natriuretic Peptide Total Protein Albumin TSH Free Cortisol Urine Color Urine Appearance Urine pH Ur Specific [place] Urine Protein Urine Glucose (UA) Urine Ketones Urine Blood Urine Nitrite Ur Leukocyte Esterase Urine RBC Urine WBC Ur Squamous Epith Cells Urine Bacteria Hyaline Casts Urine Osmolality U Random Total Protein Ur Random Sodium Urine Creatinine Urine Microalbumin Microalb/Creat Ratio C. difficile Tox B Gene COVID-19 ([facility]) COVID-19 Clin Com Influenza Type A (PCR) Influenza Type B (PCR) RSV RNA Qual (PCR) SARS-CoV-2 RNA (RT-PCR) 07/04/22 07/04/22 07/04/22 07:42 11:19 15:44 WBC RBC Hgb Hct MCV MCH MCHC RDW Plt Count MPV Immature Gran % (Auto) Neut % (Auto) Lymph % (Auto) [place] % (Auto) Eos % (Auto) Baso % (Auto) Lymph # (Auto) [place] # (Auto) Eos # (Auto) Baso # (Auto) Abs Immat Gran (auto) Absolute Neuts (auto) Absolute Nucleated RBC Nucleated RBC % (auto) PT INR D-Dimer High Sensitivty Sodium Potassium Chloride Carbon Dioxide Anion Gap BUN Creatinine Estim Creat Clear Calc Estimated GFR POC Glucose 86 208 H 229 H Random Glucose Fasting Glucose Osmolality Calcium Magnesium Total Bilirubin AST ALT Alkaline Phosphatase Total Creatine Kinase Troponin I High Sens B-Natriuretic Peptide Total Protein Albumin TSH Free Cortisol Urine Color Urine Appearance Urine pH Ur Specific [place] Urine Protein Urine Glucose (UA) Urine Ketones Urine Blood Urine Nitrite Ur Leukocyte Esterase Urine RBC Urine WBC Ur Squamous Epith Cells Urine Bacteria Hyaline Casts Urine Osmolality U Random Total Protein Ur Random Sodium Urine Creatinine Urine Microalbumin Microalb/Creat Ratio C. difficile Tox B Gene COVID-19 ([facility]) COVID-19 Clin Com Influenza Type A (PCR) Influenza Type B (PCR) RSV RNA Qual (PCR) SARS-CoV-2 RNA (RT-PCR) 07/04/22 07/05/22 07/05/22 19:39 07:40 11:28 WBC RBC Hgb Hct MCV MCH MCHC RDW Plt Count MPV Immature Gran % (Auto) Neut % (Auto) Lymph % (Auto) [place] % (Auto) Eos % (Auto) Baso % (Auto) Lymph # (Auto) [place] # (Auto) Eos # (Auto) Baso # (Auto) Abs Immat Gran (auto) Absolute Neuts (auto) Absolute Nucleated RBC Nucleated RBC % (auto) PT INR D-Dimer High Sensitivty Sodium Potassium Chloride Carbon Dioxide Anion Gap BUN Creatinine Estim Creat Clear Calc Estimated GFR POC Glucose 138 H 132 H 170 H Random Glucose Fasting Glucose Osmolality Calcium Magnesium Total Bilirubin AST ALT Alkaline Phosphatase Total Creatine Kinase Troponin I High Sens B-Natriuretic Peptide Total Protein Albumin TSH Free Cortisol Urine Color Urine Appearance Urine pH Ur Specific [place] Urine Protein Urine Glucose (UA) Urine Ketones Urine Blood Urine Nitrite Ur Leukocyte Esterase Urine RBC Urine WBC Ur Squamous Epith Cells Urine Bacteria Hyaline Casts Urine Osmolality U Random Total Protein Ur Random Sodium Urine Creatinine Urine Microalbumin Microalb/Creat Ratio C. difficile Tox B Gene COVID-19 ([facility]) COVID-19 Clin Com Influenza Type A (PCR) Influenza Type B (PCR) RSV RNA Qual (PCR) SARS-CoV-2 RNA (RT-PCR) 07/05/22 07/05/22 07/06/22 14:56 18:57 07:14 WBC RBC Hgb Hct MCV MCH MCHC RDW Plt Count MPV Immature Gran % (Auto) Neut % (Auto) Lymph % (Auto) [place] % (Auto) Eos % (Auto) Baso % (Auto) Lymph # (Auto) [place] # (Auto) Eos # (Auto) Baso # (Auto) Abs Immat Gran (auto) Absolute Neuts (auto) Absolute Nucleated RBC Nucleated RBC % (auto) PT INR D-Dimer High Sensitivty Sodium Potassium Chloride Carbon Dioxide Anion Gap BUN Creatinine Estim Creat Clear Calc Estimated GFR POC Glucose 96 127 H 99 Random Glucose Fasting Glucose Osmolality Calcium Magnesium Total Bilirubin AST ALT Alkaline Phosphatase Total Creatine Kinase Troponin I High Sens B-Natriuretic Peptide Total Protein Albumin TSH Free Cortisol Urine Color Urine Appearance Urine pH Ur Specific [place] Urine Protein Urine Glucose (UA) Urine Ketones Urine Blood Urine Nitrite Ur Leukocyte Esterase Urine RBC Urine WBC Ur Squamous Epith Cells Urine Bacteria Hyaline Casts Urine Osmolality U Random Total Protein Ur Random Sodium Urine Creatinine Urine Microalbumin Microalb/Creat Ratio C. difficile Tox B Gene COVID-19 ([facility]) COVID-19 Clin Com Influenza Type A (PCR) Influenza Type B (PCR) RSV RNA Qual (PCR) SARS-CoV-2 RNA (RT-PCR) 07/06/22 07/06/22 07/06/22 11:03 15:21 20:13 WBC RBC Hgb Hct MCV MCH MCHC RDW Plt Count MPV Immature Gran % (Auto) Neut % (Auto) Lymph % (Auto) [place] % (Auto) Eos % (Auto) Baso % (Auto) Lymph # (Auto) [place] # (Auto) Eos # (Auto) Baso # (Auto) Abs Immat Gran (auto) Absolute Neuts (auto) Absolute Nucleated RBC Nucleated RBC % (auto) PT INR D-Dimer High Sensitivty Sodium Potassium Chloride Carbon Dioxide Anion Gap BUN Creatinine Estim Creat Clear Calc Estimated GFR POC Glucose 234 H 173 H 166 H Random Glucose Fasting Glucose Osmolality Calcium Magnesium Total Bilirubin AST ALT Alkaline Phosphatase Total Creatine Kinase Troponin I High Sens B-Natriuretic Peptide Total Protein Albumin TSH Free Cortisol Urine Color Urine Appearance Urine pH Ur Specific [place] Urine Protein Urine Glucose (UA) Urine Ketones Urine Blood Urine Nitrite Ur Leukocyte Esterase Urine RBC Urine WBC Ur Squamous Epith Cells Urine Bacteria Hyaline Casts Urine Osmolality U Random Total Protein Ur Random Sodium Urine Creatinine Urine Microalbumin Microalb/Creat Ratio C. difficile Tox B Gene COVID-19 ([facility]) COVID-19 Clin Com Influenza Type A (PCR) Influenza Type B (PCR) RSV RNA Qual (PCR) SARS-CoV-2 RNA (RT-PCR) 07/07/22 07/07/22 07/07/22 07:40 11:05 15:20 WBC RBC Hgb Hct MCV MCH MCHC RDW Plt Count MPV Immature Gran % (Auto) Neut % (Auto) Lymph % (Auto) [place] % (Auto) Eos % (Auto) Baso % (Auto) Lymph # (Auto) [place] # (Auto) Eos # (Auto) Baso # (Auto) Abs Immat Gran (auto) Absolute Neuts (auto) Absolute Nucleated RBC Nucleated RBC % (auto) PT INR D-Dimer High Sensitivty Sodium Potassium Chloride Carbon Dioxide Anion Gap BUN Creatinine Estim Creat Clear Calc Estimated GFR POC Glucose 104 199 H 164 H Random Glucose Fasting Glucose Osmolality Calcium Magnesium Total Bilirubin AST ALT Alkaline Phosphatase Total Creatine Kinase Troponin I High Sens B-Natriuretic Peptide Total Protein Albumin TSH Free Cortisol Urine Color Urine Appearance Urine pH Ur Specific [place] Urine Protein Urine Glucose (UA) Urine Ketones Urine Blood Urine Nitrite Ur Leukocyte Esterase Urine RBC Urine WBC Ur Squamous Epith Cells Urine Bacteria Hyaline Casts Urine Osmolality U Random Total Protein Ur Random Sodium Urine Creatinine Urine Microalbumin Microalb/Creat Ratio C. difficile Tox B Gene COVID-19 ([facility]) COVID-19 Clin Com Influenza Type A (PCR) Influenza Type B (PCR) RSV RNA Qual (PCR) SARS-CoV-2 RNA (RT-PCR) 07/07/22 07/08/22 07/08/22 19:42 06:10 07:24 WBC RBC Hgb Hct MCV MCH MCHC RDW Plt Count MPV Immature Gran % (Auto) Neut % (Auto) Lymph % (Auto) [place] % (Auto) Eos % (Auto) Baso % (Auto) Lymph # (Auto) [place] # (Auto) Eos # (Auto) Baso # (Auto) Abs Immat Gran (auto) Absolute Neuts (auto) Absolute Nucleated RBC Nucleated RBC % (auto) PT INR D-Dimer High Sensitivty Sodium 136 Potassium 4.1 Chloride 100 Carbon Dioxide 28 Anion Gap 12 BUN 18 H Creatinine 0.54 Estim Creat Clear Calc 110.9 Estimated GFR > 60 POC Glucose 127 H 76 Random Glucose 73 Fasting Glucose Osmolality Calcium 8.3 L Magnesium Total Bilirubin AST ALT Alkaline Phosphatase Total Creatine Kinase Troponin I High Sens B-Natriuretic Peptide Total Protein Albumin TSH Free Cortisol Urine Color Urine Appearance Urine pH Ur Specific [place] Urine Protein Urine Glucose (UA) Urine Ketones Urine Blood Urine Nitrite Ur Leukocyte Esterase Urine RBC Urine WBC Ur Squamous Epith Cells Urine Bacteria Hyaline Casts Urine Osmolality U Random Total Protein Ur Random Sodium Urine Creatinine Urine Microalbumin Microalb/Creat Ratio C. difficile Tox B Gene COVID-19 ([facility]) COVID-19 Clin Com Influenza Type A (PCR) Influenza Type B (PCR) RSV RNA Qual (PCR) SARS-CoV-2 RNA (RT-PCR) Airway Mallampati Class: II TM Dist: >3cm Neck ROM: Full Denture: Upper Heart: irreg Lungs: cta Assessment and Plan Assessment Anesthesia Assessment: Anesthesia Plan Discussed and Chart Reviewed Final Anesthetic Review Family History of Problems with Anesthesia: No History of Problems with Anesthesia: No NPO: Yes ASA Class: III Final Preanesthetic Review: No Changes in Pt Med Stat, Meds/Allgs Chart Reviewed and Consent Obtained/Reviewed Patient Risk: Intermediate Procedure Risk: Intermediate Anesthetic Plan Anesthetic Plan: MAC: Disposition: Standard PACU
--- NOTE | 2022-07-08 08:26 | PC.NURSE ---
Pt down to [facility] at this moment. Report given to LISA Lundberg.
--- NOTE | 2022-07-08 09:26 | W.PM.OPN ---
Operative Note Operative Note Date of Service: 07/08/22 Narrative: Preoperative diagnosis: Sacral decubitus ulcer, unstageable Postoperative diagnosis: Same, stage III Procedure: Debridement of sacral decubitus ulcer, including skin, dermis, subcutaneous tissue and muscle Surgeon: Brayan Ho MD Ophthalmologist Retina Specialist: Nancy Whitfield PA-C Anesthesia: Mac Indications for procedure: 81-year-old male patient with subarachnoid hemorrhage after fall presenting with a sacral decubitus ulcer with necrotic skin, presenting today for debridement of the product skin Operative findings: Necrotic skin, subcutaneous tissue and muscle. Ulcer measured approximately 10 cm x 10 cm in diameter. With a depth of 4 cm. Specimen: Necrotic tissue sacral decubitus ulcer Estimated blood loss: 20 mL Complications: None Procedure details: Patient was brought to the OR and placed in a supine position. After administering light sedation the patient was rolled rolled to a left lateral decubitus position. The skin was prepped with Betadine and draped in a sterile fashion over the sacral decubitus ulcer. A surgical time-out was called the consent confirmed. Patient received preoperative antibiotics and Venodyne boots were in place. Local anesthesia consisting of 0.5% Sensorcaine was infiltrated below the ulcer. A 15 blade was then used to debride the necrotic skin as noted above the measurements were approximally 10 x 10 cm. Debridement included skin, subcutaneous tissue and muscle. Debris was continued until viable tissue was encountered. Healthy bleeding tissue was encountered in active bleeding was cauterized using electrocautery. Wounds were then thoroughly irrigated with saline solution and suctioned dry. Wounds were then packed with Betadine soaked gauze followed by fluff gauze and ABD pads. The patient tolerated the procedure well. Sponge, instrument, and needle counts reported as correct. The patient was transferred to PACU in stable condition.
--- NOTE | 2022-07-08 10:40 | MHC.CLN ---
F/U DEBRIDEMENT OF UNSTAGEABE SACRAL WOUND THIS AM. POST OP STAGE III. CURRENTLY NPO. DIET PRIOR TO SURGERY DIABETIC 2000 KCALS, NDD3 CONSISTENCY, 1500 ML FLUID RESTRICTION. ENSURE BID TO PROMOTE WOUND HEALING. PROVIDES ADDITIONAL 700 KCALS, 40 G PROTEIN. INTAKE PRIOR TO SURGERY VARIABLE. FOLLOW FOR DIET ADVANCEMENT, INTAKE AND WOUND.
[2022-07-08 10:42] LABS: Glucose, Whole Blood 108 mg/dL (60-115)
--- NOTE | 2022-07-08 11:36 | P.PNIM_ITS ---
Subjective Subjective Date of Service: 07/08/22 Interval History: to OR this morning for operative debridement no pain no fever Review of Systems Review of Systems: Yes all other systems are reviewed and are negative Physical Exam Vital Signs: Vital Signs: Last Vital Signs Temp 97.8 F 07/08/22 10:32 Pulse 74 07/08/22 10:32 Resp 18 07/08/22 10:32 BP 129/61 07/08/22 10:32 Pulse Ox 95 07/08/22 10:32 O2 Del Method 07/08/22 10:32 O2 Flow Rate 2 07/08/22 10:02 BMI result Body Mass Index 26.6 Gen: in no acute distress HEENT: sclera anicteric, moist mucus membranes Neck: supple Lungs: clear to auscultation bilaterally Heart: irregular irregular, no murmurs Abd: soft, non-tender, non-distended Ext: no edema Skin: warm/well-perfused, sacral decubitus ulcer dressed Neuro: alert and oriented x3, no focal findings Psych: appropriate affect Objective Data Active Medications Acetaminophen (Acetaminophen 325 Mg Tablet) 650 mg PO Q6H PRN PRN Reason: Pain, Mild (Pain Scale 1-3) Last Admin: 07/07/22 14:44 Dose: 650 mg Documented By: DIPAK Amlodipine Besylate (Amlodipine Besylate 5 Mg Tablet) 5 mg PO DAILY [facility]; Protocol Last Admin: 07/07/22 09:36 Dose: 5 mg Documented By: DIPAK Apixaban (Apixaban 5 Mg Tablet) 5 mg PO BID [facility] Dextrose (Dextrose 50 % 25 Gm/50 Ml Syringe) 25 gm IVPUSH Q15M PRN; Protocol PRN Reason: per Hypoglycemia Standing Ord. Docusate Sodium (Docusate Sodium 100 Mg Capsule) 100 mg PO BID [facility] Last Admin: 07/08/22 11:34 Dose: Not Given Documented By: HECTOR Non-Admin Reason: diarrhea Glucose (Glucose Gel 15 Gm Gel..Gram.) 15 gm PO Q15M PRN; Protocol PRN Reason: per Hypoglycemia Standing Ord. Hydralazine HCl (Hydralazine Hcl 25 Mg Tablet) 25 mg PO BID [facility]; Protocol Last Admin: 07/07/22 19:50 Dose: 25 mg Documented By: SU Insulin Glargine (Insulin Glargine,Hum.Rec.Anlog 100 Unit/Ml 10 Ml Vial) 20 unit SUBCUT DAILY@0730 [facility] Last Admin: 07/08/22 07:29 Dose: Not Given Documented By: HECTOR Non-Admin Reason: NPO, POC 73 Insulin Glargine (Insulin Glargine,Hum.Rec.Anlog 100 Unit/Ml 10 Ml Vial) 10 unit SUBCUT BEDTIME [facility] Last Admin: 07/07/22 19:49 Dose: 10 unit Documented By: SU Insulin Human Lispro (Insulin Lispro 100 Unit/Ml 3 Ml Vial) 0 unit SUBCUT QIDACHS [facility]; Protocol Last Admin: 07/08/22 11:34 Dose: Not Given Documented By: HECTOR Non-Admin Reason: No Insulin Coverage Lidocaine (Lidocaine 4 % Patch Adh..Patch) 1 patch TRANSDERMA DAILY [facility]; Protocol Last Admin: 07/07/22 09:38 Dose: 1 patch Documented By: DIPAK Losartan Potassium (Losartan Potassium 25 Mg Tablet) 25 mg PO DAILY [facility]; Protocol Last Admin: 07/07/22 09:37 Dose: 25 mg Documented By: DIPAK Metoprolol Tartrate (Metoprolol Tartrate 50 Mg Tablet) 150 mg PO BID [facility]; Protocol Last Admin: 07/07/22 19:50 Dose: 150 mg Documented By: SU Ondansetron HCl (Ondansetron Hcl 4 Mg/2 Ml Vial) 4 mg IVPUSH Q8H PRN PRN Reason: Nausea and Vomiting Last Admin: 07/07/22 01:05 Dose: 4 mg Documented By: MARIANN Oxycodone HCl (Oxycodone Hcl Immed Release 5 Mg Tablet) 5 mg PO Q6H PRN PRN Reason: Pain, Moderate (Pain Scale 4-6 Last Admin: 07/07/22 19:50 Dose: 5 mg Documented By: SU Pharmacy Consult (Consult Rx Perform Med Rec) 1 each MISCELLANE ONCE PRN PRN Reason: Consult order Polyethylene Glycol (Polyethylene Glycol 3350 17 Gm Powd.Pack) 17 gm PO DAILY PRN PRN Reason: constipation Last Admin: 06/28/22 22:01 Dose: 17 gm Documented By: ADRIANA Polyethylene Glycol (Polyethylene Glycol 3350 17 Gm Powd.Pack) 17 gm PO DAILY [facility] Last Admin: 07/07/22 09:39 Dose: Not Given Documented By: DIPAK Non-Admin Reason: loose stools Sodium Chloride (0.9 % Sodium Chloride Flush 3 Ml Syringe) 3 ml IVFLUSH QSHIFT [facility] Last Admin: 07/07/22 19:50 Dose: 3 ml Documented By: SU Tamsulosin HCl (Tamsulosin Hcl 0.4 Mg Capsule) 0.8 mg PO DAILY [facility] Last Admin: 07/07/22 09:38 Dose: 0.8 mg Documented By: DIPAK Urea (Urea 15 Gm Powder) 30 gm PO DAILY [facility] Last Admin: 07/07/22 09:38 Dose: 30 gm Documented By: DIPAK Vitamin D (Cholecalciferol (Vitamin D3) 25 Mcg Tablet) 50 mcg PO DAILY [facility] Last Admin: 07/07/22 09:36 Dose: 50 mcg Documented By: DIPAK Labs CBC & Chem 7: 07/02/22 05:38 07/08/22 06:10 Labs: Laboratory Results - last 24 hr 07/07/22 07/07/22 07/08/22 15:20 19:42 06:10 Anion Gap 12 Estim Creat Clear Calc 110.9 Estimated GFR > 60 POC Glucose 164 H 127 H Random Glucose 73 Calcium 8.3 L 07/08/22 07/08/22 07:24 10:35 Anion Gap Estim Creat Clear Calc Estimated GFR POC Glucose 76 108 Random Glucose Calcium Assessment and Plan (1) Traumatic subarachnoid hemorrhage: Status: Acute (2) Cerebral contusion: Status: Acute (3) Physical deconditioning: Status: Acute (4) Hyponatremia: Status: Acute Plan d#24 74yo M with DM2, HTN, HLD, chronic venous stasis dermatitis presented with mechanical fall, admitted for hypoxia due to PNA # traumatic SAH - hold apixaban x2wk, restart 07/10/22 # acute hypoxic respiratory failure du eto PNA - finished 10d of ABX, weaned of O2 # urinary retention - bladder scan q8h, intermittent cath prn # mechanical fall - difficulty ambulating; awaiting SNF placement # generalized weakness - 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 but not clinically NPH per Neurology # 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 Ulcer measured approximately 10 cm x 10 cm in diameter with a depth of 4 cm = stage 3; wound packed with Betadine-soaked gauze followed by fluff gauze and ABD pads # DM2 - basal/bolus insulin # HTN - hydralazine, losartan, and metoprolol # HLD - statin # VTE ppx: SCDs, no apixaban until 07/10 In my clinical judgment, the patient requires continued inpatient hospitalization for the following reasons: postop care, SNF placement Quality Stroke Does the patient have a stroke diagnosis?: No VTE Prior VTE?: No VTE Risk Level:: Medical - moderate - high VTE Device Contraindication: Treatment Not Indicated VTE Drug Contraindication: N/A - Med Ordered
[2022-07-08] MEDS: Metoprolol Tartrate 50 MG TABLET 150 MG PO ×2 (11:54→19:47)
[2022-07-08] MEDS: Cholecalciferol (Vitamin D3) 25 MCG TABLET 50 MCG PO (11:54)
[2022-07-08] MEDS: Tamsulosin HCL 0.4 MG CAPSULE 0.8 MG PO (11:54)
[2022-07-08] MEDS: Losartan Potassium 25 MG TABLET PO (11:55)
[2022-07-08] MEDS: Urea 15 GM POWDER 30 GM PO (11:55)
[2022-07-08] MEDS: hydrALAZINE HCl 25 MG TABLET PO ×2 (11:55→19:46)
[2022-07-08] MEDS: 0.9 % Sodium Chloride Flush 3 ML SYRINGE IVFLUSH ×3 (11:55→19:48)
[2022-07-08] MEDS: amLODIPine Besylate 5 MG TABLET PO (11:55)
[2022-07-08] MEDS: Lidocaine 4 % Patch ADH..PATCH 1 PATCH TRANSDERMA (11:55)
[2022-07-08 16:08] LABS: Glucose, Whole Blood 212 mg/dL (60-115)
[2022-07-08] MEDS: Insulin Lispro 100 UNIT/ML 3 ML VIAL SUBCUT ×2 (17:21→20:14)
[2022-07-08] MEDS: Docusate Sodium 100 MG CAPSULE PO (19:46)
[2022-07-08] MEDS: oxyCODONE HCl Immed Release 5 MG TABLET PO (19:47)
[2022-07-08 20:03] LABS: Glucose, Whole Blood 211 mg/dL (60-115)
[2022-07-08] MEDS: Insulin Glargine,Hum.rec.anlog 100 UNIT/ML 10 ML VIAL 10 UNIT SUBCUT (20:14)
[2022-07-09] MEDS: oxyCODONE HCl Immed Release 5 MG TABLET PO ×3 (01:38→20:54)
--- NOTE | 2022-07-09 02:40 | PC.NURSE ---
0200 sacral dsg changed for large amt of bloody drainage ns wet to dry dsg applied.Medicated with oxycodone 5mg po prior to dsg change.Pt repositioned q 2hrs with pillows off sacral area.
[2022-07-09] MEDS: Acetaminophen 325 MG TABLET 650 MG PO ×2 (03:52→13:57)
[2022-07-09 04:00] VITALS: BP 132/64; PULSE 85; RESP 17; TEMP 36.4; O2SAT 96
[2022-07-09 07:22] VITALS: BP 121/58; PULSE 85; RESP 18; TEMP 36.5; O2SAT 96
[2022-07-09 07:36] LABS: Glucose, Whole Blood 52 mg/dL (60-115)
[2022-07-09 07:55] LABS: Glucose, Whole Blood 76 mg/dL (60-115)
[2022-07-09] MEDS: Urea 15 GM POWDER 30 GM PO (10:05)
[2022-07-09] MEDS: amLODIPine Besylate 5 MG TABLET PO (10:05)
[2022-07-09] MEDS: Losartan Potassium 25 MG TABLET PO (10:05)
[2022-07-09] MEDS: polyethylene glycoL 3350 17 GM POWD.PACK PO (10:05)
[2022-07-09] MEDS: Metoprolol Tartrate 50 MG TABLET 150 MG PO ×2 (10:06→20:50)
[2022-07-09] MEDS: hydrALAZINE HCl 25 MG TABLET PO ×2 (10:06→20:50)
[2022-07-09] MEDS: Tamsulosin HCL 0.4 MG CAPSULE 0.8 MG PO (10:06)
[2022-07-09] MEDS: Lidocaine 4 % Patch ADH..PATCH 1 PATCH TRANSDERMA (10:06)
[2022-07-09] MEDS: Cholecalciferol (Vitamin D3) 25 MCG TABLET 50 MCG PO (10:06)
[2022-07-09] MEDS: Docusate Sodium 100 MG CAPSULE PO ×2 (10:07→20:50)
[2022-07-09] MEDS: 0.9 % Sodium Chloride Flush 3 ML SYRINGE IVFLUSH ×3 (10:07→23:46)
--- NOTE | 2022-07-09 10:44 | PM.PNGS ---
Subjective Subjective Date of Service: 07/09/22 <Nancy Whitfield PA-C - Last Filed: 07/09/22 10:54> 07/09/22 <Brayan Ho MD - Last Filed: 07/09/22 13:41> Interval history: Feels ok. Doing ok with dressing changes. Has minimal pain at ulcer site. Dressing being changed every 8 hours - RN changed dressing this morning. <Nancy Whitfield PA-C - Last Filed: 07/09/22 10:54> Physical Exam Vital Signs: Vital Signs: Last Vital Signs Temp 97.7 F 07/09/22 07:22 Pulse 85 07/09/22 07:22 Resp 18 07/09/22 07:22 BP 121/58 L 07/09/22 07:22 Pulse Ox 96 07/09/22 07:22 O2 Del Method 07/09/22 07:22 O2 Flow Rate 2 07/08/22 10:02 BMI result Body Mass Index 26.6 <Nancy Whitfield PA-C - Last Filed: 07/09/22 10:54> Const: General: comfortable, no acute distress and alert <Nancy Whitfield PA-C - Last Filed: 07/09/22 10:54> Resp: Effort & Inspection: normal respiratory effort <Nancy Whitfield PA-C - Last Filed: 07/09/22 10:54> Back/Spine/Pelvis: Other: sacral dressing clean/dry/intact <Nancy Whitfield PA-C - Last Filed: 07/09/22 10:54> Skin: General skin exam: no rashes or lesions noted <Nancy Whitfield PA-C - Last Filed: 07/09/22 10:54> Extrem: General: Yes no clubbing, cyanosis or edema <KWAME Meza Last Filed: 07/09/22 10:54> Objective Data Active Medications Acetaminophen (Acetaminophen 325 Mg Tablet) 650 mg PO Q6H PRN PRN Reason: Pain, Mild (Pain Scale 1-3) Last Admin: 07/09/22 03:52 Dose: 650 mg Documented By: SU Amlodipine Besylate (Amlodipine Besylate 5 Mg Tablet) 5 mg PO DAILY [facility]; Protocol Last Admin: 07/09/22 10:05 Dose: 5 mg Documented By: RIC Apixaban (Apixaban 5 Mg Tablet) 5 mg PO BID [facility] Dextrose (Dextrose 50 % 25 Gm/50 Ml Syringe) 25 gm IVPUSH Q15M PRN; Protocol PRN Reason: per Hypoglycemia Standing Ord. Docusate Sodium (Docusate Sodium 100 Mg Capsule) 100 mg PO BID [facility] Last Admin: 07/09/22 10:07 Dose: 100 mg Documented By: RIC Glucose (Glucose Gel 15 Gm Gel..Gram.) 15 gm PO Q15M PRN; Protocol PRN Reason: per Hypoglycemia Standing Ord. Hydralazine HCl (Hydralazine Hcl 25 Mg Tablet) 25 mg PO BID [facility]; Protocol Last Admin: 07/09/22 10:06 Dose: 25 mg Documented By: RIC Insulin Glargine (Insulin Glargine,Hum.Rec.Anlog 100 Unit/Ml 10 Ml Vial) 20 unit SUBCUT DAILY@0730 [facility] Last Admin: 07/09/22 07:54 Dose: Not Given Documented By: RIC Non-Admin Reason: on hold Insulin Glargine (Insulin Glargine,Hum.Rec.Anlog 100 Unit/Ml 10 Ml Vial) 5 unit SUBCUT BEDTIME [facility] Insulin Human Lispro (Insulin Lispro 100 Unit/Ml 3 Ml Vial) 0 unit SUBCUT QIDACHS [facility]; Protocol Last Admin: 07/09/22 07:55 Dose: Not Given Documented By: RIC Non-Admin Reason: No Insulin Coverage Lidocaine (Lidocaine 4 % Patch Adh..Patch) 1 patch TRANSDERMA DAILY [facility]; Protocol Last Admin: 07/09/22 10:06 Dose: 1 patch Documented By: RIC Losartan Potassium (Losartan Potassium 25 Mg Tablet) 25 mg PO DAILY [facility]; Protocol Last Admin: 07/09/22 10:05 Dose: 25 mg Documented By: RIC Metoprolol Tartrate (Metoprolol Tartrate 50 Mg Tablet) 150 mg PO BID [facility]; Protocol Last Admin: 07/09/22 10:06 Dose: 150 mg Documented By: RIC Ondansetron HCl (Ondansetron Hcl 4 Mg/2 Ml Vial) 4 mg IVPUSH Q8H PRN PRN Reason: Nausea and Vomiting Last Admin: 07/07/22 01:05 Dose: 4 mg Documented By: CASTILCinthya Oxycodone HCl (Oxycodone Hcl Immed Release 5 Mg Tablet) 5 mg PO Q6H PRN PRN Reason: Pain, Moderate (Pain Scale 4-6 Last Admin: 07/09/22 01:38 Dose: 5 mg Documented By: SU Pharmacy Consult (Consult Rx Perform Med Rec) 1 each MISCELLANE ONCE PRN PRN Reason: Consult order Polyethylene Glycol (Polyethylene Glycol 3350 17 Gm Powd.Pack) 17 gm PO DAILY PRN PRN Reason: constipation Last Admin: 06/28/22 22:01 Dose: 17 gm Documented By: ADRIANA Polyethylene Glycol (Polyethylene Glycol 3350 17 Gm Powd.Pack) 17 gm PO DAILY [facility] Last Admin: 07/09/22 10:05 Dose: 17 gm Documented By: RIC Sodium Chloride (0.9 % Sodium Chloride Flush 3 Ml Syringe) 3 ml IVFLUSH QSHIFT [facility] Last Admin: 07/09/22 10:07 Dose: 3 ml Documented By: RIC Tamsulosin HCl (Tamsulosin Hcl 0.4 Mg Capsule) 0.8 mg PO DAILY [facility] Last Admin: 07/09/22 10:06 Dose: 0.8 mg Documented By: RIC Urea (Urea 15 Gm Powder) 30 gm PO DAILY [facility] Last Admin: 07/09/22 10:05 Dose: 30 gm Documented By: RIC Vitamin D (Cholecalciferol (Vitamin D3) 25 Mcg Tablet) 50 mcg PO DAILY [facility] Last Admin: 07/09/22 10:06 Dose: 50 mcg Documented By: RIC Zinc Acetate/Diphenhydramine (Diphenhydramine Hcl 2 % Cream 28 Gm Tube) 1 appl TOPICAL TID PRN; Protocol PRN Reason: itching <Nancy Whitfield PA-C - Last Filed: 07/09/22 10:54> Labs CBC & Chem 7: : 07/02/22 05:38 07/08/22 06:10 <Nancy Whitfield PA-C - Last Filed: 07/09/22 10:54> Labs: Laboratory Results - last 24 hr 07/08/22 07/08/22 07/09/22 16:01 19:58 07:27 POC Glucose 212 H 211 H 52 L* 07/09/22 07:51 POC Glucose 76 <Nancy Whitfield PA-C - Last Filed: 07/09/22 10:54> Procedures Date of Service Date of Service: 07/09/22 <Nancy Whitfield PA-C - Last Filed: 07/09/22 10:54> Progress Note: A&P Assessment and plan (1) Stage 4 decubitus ulcer: Status: Acute <Nancy Whitfield PA-C - Last Filed: 07/09/22 10:54> (2) Status post excisional debridement: Status: Acute <KWAME Meza Last Filed: 07/09/22 10:54> Assessment and Plan: 81 year old male admitted for hypoxia and respiratory failure following a fall found to have a sacral decubitus ulcer with necrotic skin. He is now POD #1 s/p debridement of sacral decubitus ulcer, including skin, dermis, subcutaneous tissue and muscle. Stage 4 decubitus ulcer- RN this morning reports ulcer without necrosis, beginning to granulate on AM dressing change. Continue current wound care of wet to dry dressing changes q8h, frequent repositioning, air loss bed, nutritional supplements. <Nancy Whitfield PA-C - Last Filed: 07/09/22 10:54> 81 year old male admitted for hypoxia and respiratory failure following a fall found to have a sacral decubitus ulcer with necrotic skin. He is now POD #1 s/p debridement of sacral decubitus ulcer, including skin, dermis, subcutaneous tissue and muscle. Stage 4 decubitus ulcer- RN this morning reports ulcer without necrosis, beginning to granulate on AM dressing change. Continue current wound care of wet to dry dressing changes q8h, frequent repositioning, air loss bed, nutritional supplements. Patient remains stable following debridement of the sacral decubitus ulcer. Agree with the above assessment and plan. Continue local wound care and skin protection. <Brayan Ho MD - Last Filed: 07/09/22 13:41> Time Spent With Patient Time: Total time spent is greater than 50% in coordination of care (as documented) at patient's floor/unit and/or counseling patient: <Nancy Whitfield PA-C - Last Filed: 07/09/22 10:54> Quality Stroke Does the patient have a stroke diagnosis?: No <Nancy Whitfield PA-C - Last Filed: 07/09/22 10:54> VTE Prior VTE?: No <Nancy Whitfield PA-C - Last Filed: 07/09/22 10:54> VTE Risk Level:: Medical - moderate - high <Nancy Whitfield PA-C - Last Filed: 07/09/22 10:54> VTE Device Contraindication: Treatment Not Indicated <Nancy Whitfield PA-C - Last Filed: 07/09/22 10:54> VTE Drug Contraindication: N/A - Med Ordered <Nancy Whitfield PA-C - Last Filed: 07/09/22 10:54>
[2022-07-09 11:11] LABS: Glucose, Whole Blood 199 mg/dL (60-115)
[2022-07-09] MEDS: Insulin Lispro 100 UNIT/ML 3 ML VIAL SUBCUT ×3 (12:37→20:49)
--- NOTE | 2022-07-09 13:01 | P.PNIM_ITS ---
Subjective Subjective Date of Service: 07/09/22 Interval History: feels well; no fever or pain Review of Systems Review of Systems: Yes all other systems are reviewed and are negative Physical Exam Vital Signs: Vital Signs: Last Vital Signs Temp 97.7 F 07/09/22 07:22 Pulse 85 07/09/22 07:22 Resp 18 07/09/22 07:22 BP 121/58 L 07/09/22 07:22 Pulse Ox 96 07/09/22 07:22 O2 Del Method 07/09/22 07:22 O2 Flow Rate 2 07/08/22 10:02 BMI result Body Mass Index 26.6 Gen: in no acute distress HEENT: sclera anicteric, moist mucus membranes Neck: supple Lungs: clear to auscultation bilaterally Heart: irregular irregular, no murmurs Abd: soft, non-tender, non-distended Ext: no edema Skin: warm/well-perfused, sacral decubitus ulcer dressed Neuro: alert and oriented x3, no focal findings Psych: appropriate affect ? Objective Data Active Medications Acetaminophen (Acetaminophen 325 Mg Tablet) 650 mg PO Q6H PRN PRN Reason: Pain, Mild (Pain Scale 1-3) Last Admin: 07/09/22 03:52 Dose: 650 mg Documented By: SU Amlodipine Besylate (Amlodipine Besylate 5 Mg Tablet) 5 mg PO DAILY [facility]; Protocol Last Admin: 07/09/22 10:05 Dose: 5 mg Documented By: RIC Apixaban (Apixaban 5 Mg Tablet) 5 mg PO BID [facility] Dextrose (Dextrose 50 % 25 Gm/50 Ml Syringe) 25 gm IVPUSH Q15M PRN; Protocol PRN Reason: per Hypoglycemia Standing Ord. Docusate Sodium (Docusate Sodium 100 Mg Capsule) 100 mg PO BID [facility] Last Admin: 07/09/22 10:07 Dose: 100 mg Documented By: RIC Glucose (Glucose Gel 15 Gm Gel..Gram.) 15 gm PO Q15M PRN; Protocol PRN Reason: per Hypoglycemia Standing Ord. Hydralazine HCl (Hydralazine Hcl 25 Mg Tablet) 25 mg PO BID [facility]; Protocol Last Admin: 07/09/22 10:06 Dose: 25 mg Documented By: RIC Insulin Glargine (Insulin Glargine,Hum.Rec.Anlog 100 Unit/Ml 10 Ml Vial) 20 unit SUBCUT DAILY@0730 [facility] Last Admin: 07/09/22 07:54 Dose: Not Given Documented By: RIC Non-Admin Reason: on hold Insulin Glargine (Insulin Glargine,Hum.Rec.Anlog 100 Unit/Ml 10 Ml Vial) 5 unit SUBCUT BEDTIME [facility] Insulin Human Lispro (Insulin Lispro 100 Unit/Ml 3 Ml Vial) 0 unit SUBCUT QIDACHS [facility]; Protocol Last Admin: 07/09/22 12:37 Dose: 2 unit Documented By: RIC Lidocaine (Lidocaine 4 % Patch Adh..Patch) 1 patch TRANSDERMA DAILY [facility]; Protocol Last Admin: 07/09/22 10:06 Dose: 1 patch Documented By: RIC Losartan Potassium (Losartan Potassium 25 Mg Tablet) 25 mg PO DAILY [facility]; Protocol Last Admin: 07/09/22 10:05 Dose: 25 mg Documented By: IRC Metoprolol Tartrate (Metoprolol Tartrate 50 Mg Tablet) 150 mg PO BID [facility]; Protocol Last Admin: 07/09/22 10:06 Dose: 150 mg Documented By: RIC Ondansetron HCl (Ondansetron Hcl 4 Mg/2 Ml Vial) 4 mg IVPUSH Q8H PRN PRN Reason: Nausea and Vomiting Last Admin: 07/07/22 01:05 Dose: 4 mg Documented By: MARIANN Oxycodone HCl (Oxycodone Hcl Immed Release 5 Mg Tablet) 5 mg PO Q6H PRN PRN Reason: Pain, Moderate (Pain Scale 4-6 Last Admin: 07/09/22 01:38 Dose: 5 mg Documented By: SU Pharmacy Consult (Consult Rx Perform Med Rec) 1 each MISCELLANE ONCE PRN PRN Reason: Consult order Polyethylene Glycol (Polyethylene Glycol 3350 17 Gm Powd.Pack) 17 gm PO DAILY PRN PRN Reason: constipation Last Admin: 06/28/22 22:01 Dose: 17 gm Documented By: ADRIANA Polyethylene Glycol (Polyethylene Glycol 3350 17 Gm Powd.Pack) 17 gm PO DAILY [facility] Last Admin: 07/09/22 10:05 Dose: 17 gm Documented By: RIC Sodium Chloride (0.9 % Sodium Chloride Flush 3 Ml Syringe) 3 ml IVFLUSH QSHIFT [facility] Last Admin: 07/09/22 10:07 Dose: 3 ml Documented By: RIC Tamsulosin HCl (Tamsulosin Hcl 0.4 Mg Capsule) 0.8 mg PO DAILY [facility] Last Admin: 07/09/22 10:06 Dose: 0.8 mg Documented By: RIC Urea (Urea 15 Gm Powder) 30 gm PO DAILY [facility] Last Admin: 07/09/22 10:05 Dose: 30 gm Documented By: RIC Vitamin D (Cholecalciferol (Vitamin D3) 25 Mcg Tablet) 50 mcg PO DAILY [facility] Last Admin: 07/09/22 10:06 Dose: 50 mcg Documented By: RIC Zinc Acetate/Diphenhydramine (Diphenhydramine Hcl 2 % Cream 28 Gm Tube) 1 appl TOPICAL TID PRN; Protocol PRN Reason: itching Labs CBC & Chem 7: 07/02/22 05:38 07/08/22 06:10 Labs: Laboratory Results - last 24 hr 07/08/22 07/08/22 07/09/22 16:01 19:58 07:27 POC Glucose 212 H 211 H 52 L* 07/09/22 07/09/22 07:51 11:07 POC Glucose 76 199 H Assessment and Plan (1) Traumatic subarachnoid hemorrhage: Status: Acute (2) Cerebral contusion: Status: Acute (3) Physical deconditioning: Status: Acute (4) Hyponatremia: Status: Acute Plan d#25 74yo M with DM2, HTN, HLD, chronic venous stasis dermatitis presented with mechanical fall, admitted for hypoxia due to PNA # traumatic SAH - hold apixaban x2wk, restart 07/10/22 # acute hypoxic respiratory failure du eto PNA - finished 10d of ABX, weaned of O2 # urinary retention - bladder scan q8h, intermittent cath prn # mechanical fall - difficulty ambulating; awaiting SNF placement # generalized weakness - 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 but not clinically NPH per Neurology # 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 Ulcer measured approximately 10 cm x 10 cm in diameter with a depth of 4 cm = stage 3; wet->dry dressing change q8h # DM2 - basal/bolus insulin # HTN - hydralazine, losartan, and metoprolol # HLD - statin # VTE ppx: SCDs, no apixaban until 07/10 In my clinical judgment, the patient requires continued inpatient hospitalization for the following reasons: postop care, SNF placement Quality Stroke Does the patient have a stroke diagnosis?: No VTE Prior VTE?: No VTE Risk Level:: Medical - moderate - high VTE Device Contraindication: Treatment Not Indicated VTE Drug Contraindication: N/A - Med Ordered
[2022-07-09 16:00] VITALS: BP 104/54; PULSE 84; RESP 16; TEMP 36.6; O2SAT 94
[2022-07-09 16:15] LABS: Glucose, Whole Blood 261 mg/dL (60-115)
--- NOTE | 2022-07-09 17:27 | HO.POSTANES ---
Post Anesthesia Evaluation Post Anesthesia Evaluation Vital Signs: Vital Signs Temp Pulse Resp BP Pulse Ox O2 Del Method 07/09/22 16:00 97.9 F 84 16 104/54 L 94 Room Air 07/09/22 09:40 Room Air 07/09/22 09:39 Room Air 07/09/22 07:22 97.7 F 85 18 121/58 L 96 Room Air Anesthesia: Monitored Mental Status: Awake Pain Control: Satisfactory Nausea/Vomiting: None Hydration: Adequate Anesthesia-Related Issues: No Anes. Related Issues
[2022-07-09 19:53] LABS: Glucose, Whole Blood 251 mg/dL (60-115)
[2022-07-09 20:00] VITALS: BP 120/56; PULSE 87; RESP 20; TEMP 36.8; O2SAT 97
[2022-07-09] MEDS: Insulin Glargine,Hum.rec.anlog 100 UNIT/ML 10 ML VIAL SUBCUT (20:49)
[2022-07-10] MEDS: oxyCODONE HCl Immed Release 5 MG TABLET PO ×3 (03:40→10:45)
[2022-07-10 04:00] VITALS: BP 132/64; PULSE 85; RESP 17; TEMP 36.4; O2SAT 95
[2022-07-10 07:25] VITALS: BP 138/71; PULSE 92; RESP 18; TEMP 37.3; O2SAT 95
[2022-07-10 07:41] LABS: Glucose, Whole Blood 125 mg/dL (60-115)
[2022-07-10 09:00] VITALS: O2SAT 95
[2022-07-10] MEDS: Metoprolol Tartrate 50 MG TABLET 150 MG PO ×2 (09:15→20:44)
[2022-07-10] MEDS: Apixaban 5 MG TABLET PO ×2 (09:16→20:44)
[2022-07-10] MEDS: amLODIPine Besylate 5 MG TABLET PO (09:16)
[2022-07-10] MEDS: Tamsulosin HCL 0.4 MG CAPSULE 0.8 MG PO (09:16)
[2022-07-10] MEDS: hydrALAZINE HCl 25 MG TABLET PO ×2 (09:16→20:44)
[2022-07-10] MEDS: Cholecalciferol (Vitamin D3) 25 MCG TABLET 50 MCG PO (09:16)
[2022-07-10] MEDS: Docusate Sodium 100 MG CAPSULE PO ×2 (09:17→20:47)
[2022-07-10] MEDS: Lidocaine 4 % Patch ADH..PATCH 1 PATCH TRANSDERMA (09:17)
[2022-07-10] MEDS: Urea 15 GM POWDER 30 GM PO (09:17)
[2022-07-10] MEDS: Losartan Potassium 25 MG TABLET PO (09:17)
[2022-07-10] MEDS: polyethylene glycoL 3350 17 GM POWD.PACK PO (09:18)
[2022-07-10] MEDS: 0.9 % Sodium Chloride Flush 3 ML SYRINGE IVFLUSH ×2 (09:18→17:24)
--- NOTE | 2022-07-10 10:13 | P.PNIM_ITS ---
Subjective Subjective Date of Service: 07/10/22 Interval History: no complaints pain controlled Review of Systems Review of Systems: Yes all other systems are reviewed and are negative Physical Exam Vital Signs: Vital Signs: Last Vital Signs Temp 99.2 F 07/10/22 07:25 Pulse 92 07/10/22 07:25 Resp 18 07/10/22 07:25 BP 138/71 07/10/22 07:25 Pulse Ox 95 07/10/22 09:00 O2 Del Method 07/10/22 09:00 O2 Flow Rate 2 07/08/22 10:02 BMI result Body Mass Index 26.6 Gen: in no acute distress HEENT: sclera anicteric, moist mucus membranes Neck: supple Lungs: clear to auscultation bilaterally Heart: irregular irregular, no murmurs Abd: soft, non-tender, non-distended Ext: no edema Skin: warm/well-perfused, sacral decubitus ulcer dressed Neuro: alert and oriented x3, no focal findings Psych: appropriate affect Objective Data Active Medications Acetaminophen (Acetaminophen 325 Mg Tablet) 650 mg PO Q6H PRN PRN Reason: Pain, Mild (Pain Scale 1-3) Last Admin: 07/09/22 13:57 Dose: 650 mg Documented By: RIC Amlodipine Besylate (Amlodipine Besylate 5 Mg Tablet) 5 mg PO DAILY [facility]; Protocol Last Admin: 07/10/22 09:16 Dose: 5 mg Documented By: SUE Apixaban (Apixaban 5 Mg Tablet) 5 mg PO BID [facility] Last Admin: 07/10/22 09:16 Dose: 5 mg Documented By: SUE Dextrose (Dextrose 50 % 25 Gm/50 Ml Syringe) 25 gm IVPUSH Q15M PRN; Protocol PRN Reason: per Hypoglycemia Standing Ord. Docusate Sodium (Docusate Sodium 100 Mg Capsule) 100 mg PO BID [facility] Last Admin: 07/10/22 09:17 Dose: 100 mg Documented By: SUE Glucose (Glucose Gel 15 Gm Gel..Gram.) 15 gm PO Q15M PRN; Protocol PRN Reason: per Hypoglycemia Standing Ord. Hydralazine HCl (Hydralazine Hcl 25 Mg Tablet) 25 mg PO BID [facility]; Protocol Last Admin: 07/10/22 09:16 Dose: 25 mg Documented By: HO.GOODMA Insulin Glargine (Insulin Glargine,Hum.Rec.Anlog 100 Unit/Ml 10 Ml Vial) 20 unit SUBCUT DAILY@0730 [facility] Last Admin: 07/09/22 07:54 Dose: Not Given Documented By: RIC Non-Admin Reason: on hold Insulin Glargine (Insulin Glargine,Hum.Rec.Anlog 100 Unit/Ml 10 Ml Vial) 5 unit SUBCUT BEDTIME [facility] Last Admin: 07/09/22 20:49 Dose: 5 unit Documented By: CIPRIANO Insulin Human Lispro (Insulin Lispro 100 Unit/Ml 3 Ml Vial) 0 unit SUBCUT QIDACHS [facility]; Protocol Last Admin: 07/10/22 07:42 Dose: Not Given Documented By: SUE Non-Admin Reason: No Insulin Coverage Lidocaine (Lidocaine 4 % Patch Adh..Patch) 1 patch TRANSDERMA DAILY [facility]; Protocol Last Admin: 07/10/22 09:17 Dose: 1 patch Documented By: SUE Losartan Potassium (Losartan Potassium 25 Mg Tablet) 25 mg PO DAILY [facility]; Protocol Last Admin: 07/10/22 09:17 Dose: 25 mg Documented By: SUE Metoprolol Tartrate (Metoprolol Tartrate 50 Mg Tablet) 150 mg PO BID [facility]; Protocol Last Admin: 07/10/22 09:15 Dose: 150 mg Documented By: SUE Ondansetron HCl (Ondansetron Hcl 4 Mg/2 Ml Vial) 4 mg IVPUSH Q8H PRN PRN Reason: Nausea and Vomiting Last Admin: 07/07/22 01:05 Dose: 4 mg Documented By: MARAINN Oxycodone HCl (Oxycodone Hcl Immed Release 5 Mg Tablet) 5 mg PO Q6H PRN PRN Reason: Pain, Moderate (Pain Scale 4-6 Last Admin: 07/10/22 03:40 Dose: 5 mg Documented By: BRENDA Pharmacy Consult (Consult Rx Perform Med Rec) 1 each MISCELLANE ONCE PRN PRN Reason: Consult order Polyethylene Glycol (Polyethylene Glycol 3350 17 Gm Powd.Pack) 17 gm PO DAILY PRN PRN Reason: constipation Last Admin: 06/28/22 22:01 Dose: 17 gm Documented By: ADRIANA Polyethylene Glycol (Polyethylene Glycol 3350 17 Gm Powd.Pack) 17 gm PO DAILY [facility] Last Admin: 07/10/22 09:18 Dose: 17 gm Documented By: SUE Sodium Chloride (0.9 % Sodium Chloride Flush 3 Ml Syringe) 3 ml IVFLUSH QSHIFT [facility] Last Admin: 07/10/22 09:18 Dose: 3 ml Documented By: SUE Tamsulosin HCl (Tamsulosin Hcl 0.4 Mg Capsule) 0.8 mg PO DAILY [facility] Last Admin: 07/10/22 09:16 Dose: 0.8 mg Documented By: SUE Urea (Urea 15 Gm Powder) 30 gm PO DAILY [facility] Last Admin: 07/10/22 09:17 Dose: 30 gm Documented By: SUE Vitamin D (Cholecalciferol (Vitamin D3) 25 Mcg Tablet) 50 mcg PO DAILY [facility] Last Admin: 07/10/22 09:16 Dose: 50 mcg Documented By: SUE Zinc Acetate/Diphenhydramine (Diphenhydramine Hcl 2 % Cream 28 Gm Tube) 1 appl TOPICAL TID PRN; Protocol PRN Reason: itching Labs CBC & Chem 7: 07/02/22 05:38 07/08/22 06:10 Labs: Laboratory Results - last 24 hr 07/09/22 07/09/22 07/09/22 11:07 16:10 19:49 POC Glucose 199 H 261 H 251 H 07/10/22 07:23 POC Glucose 125 H Assessment and Plan (1) Traumatic subarachnoid hemorrhage: Status: Acute (2) Cerebral contusion: Status: Acute (3) Physical deconditioning: Status: Acute (4) Hyponatremia: Status: Acute Plan d#26 74yo M with DM2, HTN, HLD, chronic venous stasis dermatitis presented with mechanical fall, admitted for hypoxia due to PNA # traumatic SAH - held apixaban x2wk, restart today # acute hypoxic respiratory failure du eto PNA - finished 10d of ABX, weaned of O2 # urinary retention - bladder scan q8h, intermittent cath prn # mechanical fall - difficulty ambulating; awaiting SNF placement # generalized weakness - 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 but not clinically NPH per Neurology # acute/chronic hypoNa - resolved # new-onset AF/RVR - LVEF >70%, seen by Cardiology - rate-controlled on metoprolol tartrate - restarted apixaban 07/10/22 # incidental 1.3cm pancreatic lesions, may reflect adjacent pancreatic cysts - outpt MRI/MRCP # unstageable sacral decubitus ulcer - on 07/08 had debridement of sacral decubitus ulcer, including skin, dermis, subcutaneous tissue and muscle; operative findings of necrotic skin, subcutaneous tissue and muscle. Ulcer measured approximately 10 cm x 10 cm in diameter with a depth of 4 cm = stage 3; wet->dry dressing change q8h # DM2 - basal/bolus insulin # HTN - hydralazine, losartan, and metoprolol # HLD - statin # VTE ppx: SCDs, apixaban In my clinical judgment, the patient requires continued inpatient hospitalization for the following reasons: postop care, SNF placement Quality Stroke Does the patient have a stroke diagnosis?: No VTE Prior VTE?: No VTE Risk Level:: Medical - moderate - high VTE Device Contraindication: Treatment Not Indicated VTE Drug Contraindication: N/A - Med Ordered
--- NOTE | 2022-07-10 10:33 | MHC.CLN ---
F/U DIET= DIABETIC 2000 KCALS, NDD3 CONSISTENCY, 1500 ML FLUID RESTRICTION. ENSURE BID TO PROMOTE WOUND HEALING. PROVIDES ADDITIONAL 700 KCALS, 40 G PROTEIN. INTAKE X 1 DAY=75-100%. COCCYX WOUND DEBRIDED 07/08. FOLLOW FOR INTAKE AND WOUND.
[2022-07-10] MEDS: Acetaminophen 325 MG TABLET 650 MG PO (10:45)
[2022-07-10 10:47] VITALS: BP 105/52; PULSE 78; RESP 19; TEMP 36.3; O2SAT 96
[2022-07-10 11:49] LABS: Glucose, Whole Blood 257 mg/dL (60-115)
[2022-07-10] MEDS: Insulin Lispro 100 UNIT/ML 3 ML VIAL SUBCUT ×3 (12:26→20:43)
--- NOTE | 2022-07-10 14:56 | MHC.CM.PN ---
EMR REVIEWE, PT W/R DEBRIDEMENT 07/08 OF SACRAL WOUND AND NOW NEEDING WET-TO-DRY DRESSING CHANGES Q8HRS, SNF REFERRAL SENT AND BROADCASTED FOR STR W/TRANSITION TO LTC, NO BED OFFERS AT THIS TIME, CM WILL CONT TO FOLLOW D/C NEEDS.
[2022-07-10 15:53] VITALS: BP 97/53; PULSE 82; RESP 16; TEMP 37.1; O2SAT 97
[2022-07-10 16:26] LABS: Glucose, Whole Blood 315 mg/dL (60-115)
--- NOTE | 2022-07-10 19:05 | PC.NURSE ---
STEVE dc'd at 1830.
[2022-07-10 20:30] LABS: Glucose, Whole Blood 198 mg/dL (60-115)
[2022-07-10] MEDS: Insulin Glargine,Hum.rec.anlog 100 UNIT/ML 10 ML VIAL SUBCUT (20:43)
[2022-07-11] MEDS: 0.9 % Sodium Chloride Flush 3 ML SYRINGE IVFLUSH ×4 (01:04→20:28)
[2022-07-11 04:00] VITALS: BP 121/61; PULSE 88; RESP 17; TEMP 36.5; O2SAT 95
[2022-07-11 06:21] LABS: Hematocrit 35.7 % (42.0-52.0); Hemoglobin 11.6 g/dl (14.0-18.0); Mean Corpuscular HGB Conc 32.5 g/dl (31.0-36.0); Mean Corpuscular Hemoglobin 27.3 pg (27.0-33.0); Platelet Count 143 X10*3/uL (160-400); Red Blood Count 4.25 X10*6/uL (4.60-5.80); White Blood Count 6.8 X10*3/uL (4.8-10.8)
[2022-07-11 06:37] LABS: Anion Gap 12 (12-20); Blood Urea Nitrogen 23 mg/dL (9-16); Calcium 8.2 mg/dL (8.4-10.2); Carbon Dioxide 27 mmol/L (22-29); Chloride 99 mmol/L (96-108); Creatinine Clr Calc Pharmacy 96.6; Estimated Glomerular Filt Rate > 60; Glucose Random 194 mg/dL (60-115); Potassium 4.4 mmol/L (3.3-5.1); Sodium 134 mmol/L (135-145)
[2022-07-11 07:15] LABS: Glucose, Whole Blood 277 mg/dL (60-115)
--- NOTE | 2022-07-11 07:45 | P.PNGS_ITS ---
Subjective Subjective Date of Service: 07/11/22 Interval history: Patient seems more confused than usual. Reports pain in his legs and back. Physical Exam Vital Signs: Vital Signs: Last Vital Signs Temp 97.7 F 07/11/22 04:00 Pulse 88 07/11/22 04:00 Resp 17 07/11/22 04:00 BP 121/61 07/11/22 04:00 Pulse Ox 95 07/11/22 04:00 O2 Del Method 07/11/22 04:00 O2 Flow Rate 2 07/08/22 10:02 BMI result Body Mass Index 26.6 Const: General: awake and confusion Nutritional Appearance: well nourished Orientation/consciousness: confusion Resp: Effort & Inspection: normal respiratory effort Back/Spine/Pelvis: Other: sacral wound dressings intact, clean Neuro: General: confusion Extrem: General: Yes normal to inspection Objective Data Active Medications Acetaminophen (Acetaminophen 325 Mg Tablet) 650 mg PO Q6H PRN PRN Reason: Pain, Mild (Pain Scale 1-3) Last Admin: 07/10/22 10:45 Dose: 650 mg Documented By: RIC Amlodipine Besylate (Amlodipine Besylate 5 Mg Tablet) 5 mg PO DAILY [facility]; Protocol Last Admin: 07/10/22 09:16 Dose: 5 mg Documented By: SUE Apixaban (Apixaban 5 Mg Tablet) 5 mg PO BID [facility] Last Admin: 07/10/22 20:44 Dose: 5 mg Documented By: ADRIANA Dextrose (Dextrose 50 % 25 Gm/50 Ml Syringe) 25 gm IVPUSH Q15M PRN; Protocol PRN Reason: per Hypoglycemia Standing Ord. Docusate Sodium (Docusate Sodium 100 Mg Capsule) 100 mg PO BID [facility] Last Admin: 07/10/22 20:47 Dose: 100 mg Documented By: ADRIANA Glucose (Glucose Gel 15 Gm Gel..Gram.) 15 gm PO Q15M PRN; Protocol PRN Reason: per Hypoglycemia Standing Ord. Hydralazine HCl (Hydralazine Hcl 25 Mg Tablet) 25 mg PO BID [facility]; Protocol Last Admin: 07/10/22 20:44 Dose: 25 mg Documented By: ADRIANA Insulin Glargine (Insulin Glargine,Hum.Rec.Anlog 100 Unit/Ml 10 Ml Vial) 20 unit SUBCUT DAILY@0730 [facility] Last Admin: 07/09/22 07:54 Dose: Not Given Documented By: RIC Non-Admin Reason: on hold Insulin Glargine (Insulin Glargine,Hum.Rec.Anlog 100 Unit/Ml 10 Ml Vial) 5 unit SUBCUT BEDTIME [facility] Last Admin: 07/10/22 20:43 Dose: 5 unit Documented By: ADRIANA Insulin Human Lispro (Insulin Lispro 100 Unit/Ml 3 Ml Vial) 0 unit SUBCUT QIDACHS [facility]; Protocol Last Admin: 07/10/22 20:43 Dose: 2 unit Documented By: ADRIANA Lidocaine (Lidocaine 4 % Patch Adh..Patch) 1 patch TRANSDERMA DAILY [facility]; Protocol Last Admin: 07/10/22 09:17 Dose: 1 patch Documented By: SUE Losartan Potassium (Losartan Potassium 25 Mg Tablet) 25 mg PO DAILY [facility]; Protocol Last Admin: 07/10/22 09:17 Dose: 25 mg Documented By: SUE Metoprolol Tartrate (Metoprolol Tartrate 50 Mg Tablet) 150 mg PO BID [facility]; Protocol Last Admin: 07/10/22 20:44 Dose: 150 mg Documented By: ADRIANA Ondansetron HCl (Ondansetron Hcl 4 Mg/2 Ml Vial) 4 mg IVPUSH Q8H PRN PRN Reason: Nausea and Vomiting Last Admin: 07/07/22 01:05 Dose: 4 mg Documented By: MARIANN Oxycodone HCl (Oxycodone Hcl Immed Release 5 Mg Tablet) 5 mg PO Q6H PRN PRN Reason: Pain, Moderate (Pain Scale 4-6 Last Admin: 07/10/22 10:45 Dose: 5 mg Documented By: RIC Pharmacy Consult (Consult Rx Perform Med Rec) 1 each MISCELLANE ONCE PRN PRN Reason: Consult order Polyethylene Glycol (Polyethylene Glycol 3350 17 Gm Powd.Pack) 17 gm PO DAILY PRN PRN Reason: constipation Last Admin: 06/28/22 22:01 Dose: 17 gm Documented By: ADRIANA Polyethylene Glycol (Polyethylene Glycol 3350 17 Gm Powd.Pack) 17 gm PO DAILY [facility] Last Admin: 07/10/22 09:18 Dose: 17 gm Documented By: SUE Sodium Chloride (0.9 % Sodium Chloride Flush 3 Ml Syringe) 3 ml IVFLUSH QSHIFT [facility] Last Admin: 07/11/22 01:04 Dose: 3 ml Documented By: ADRIANA Tamsulosin HCl (Tamsulosin Hcl 0.4 Mg Capsule) 0.8 mg PO DAILY [facility] Last Admin: 07/10/22 09:16 Dose: 0.8 mg Documented By: SUE Urea (Urea 15 Gm Powder) 30 gm PO DAILY [facility] Last Admin: 07/10/22 09:17 Dose: 30 gm Documented By: SUE Vitamin D (Cholecalciferol (Vitamin D3) 25 Mcg Tablet) 50 mcg PO DAILY [facility] Last Admin: 07/10/22 09:16 Dose: 50 mcg Documented By: SUE Zinc Acetate/Diphenhydramine (Diphenhydramine Hcl 2 % Cream 28 Gm Tube) 1 appl TOPICAL TID PRN; Protocol PRN Reason: itching Labs CBC & Chem 7: 07/11/22 05:16 07/11/22 05:16 Labs: Laboratory Results - last 24 hr 07/10/22 07/10/22 07/10/22 11:45 15:55 20:26 MCV MCH MCHC RDW Plt Count MPV Absolute Nucleated RBC Nucleated RBC % (auto) Anion Gap Estim Creat Clear Calc Estimated GFR POC Glucose 257 H 315 H 198 H Random Glucose Calcium 07/11/22 07/11/22 07/11/22 05:16 05:16 07:03 MCV 84.0 MCH 27.3 MCHC 32.5 RDW 15.0 Plt Count 143 L D MPV 9.0 L Absolute Nucleated RBC 0.000 Nucleated RBC % (auto) 0.0 Anion Gap 12 Estim Creat Clear Calc 96.6 Estimated GFR > 60 POC Glucose 277 H Random Glucose 194 H Calcium 8.2 L Procedures Date of Service Date of Service: 07/11/22 Progress Note: A&P Assessment and plan (1) Decubitus ulcer of sacral region, stage 3: Status: Acute (2) Status post excisional debridement: Status: Acute Plan Patient with confusion this morning overall sacral wounds are clean With clean dressings. will continue to monitor. Time Spent With Patient Time: Total time spent is greater than 50% in coordination of care (as documented) at patient's floor/unit and/or counseling patient: Quality Stroke Does the patient have a stroke diagnosis?: No VTE Prior VTE?: No VTE Risk Level:: Medical - moderate - high VTE Device Contraindication: Treatment Not Indicated VTE Drug Contraindication: N/A - Med Ordered
[2022-07-11 07:52] VITALS: BP 134/61; PULSE 89; RESP 18; TEMP 37; O2SAT 96
[2022-07-11] MEDS: Insulin Glargine,Hum.rec.anlog 100 UNIT/ML 10 ML VIAL 20 UNIT SUBCUT (08:34)
[2022-07-11] MEDS: Tamsulosin HCL 0.4 MG CAPSULE 0.8 MG PO (08:35)
[2022-07-11] MEDS: Cholecalciferol (Vitamin D3) 25 MCG TABLET 50 MCG PO (08:35)
[2022-07-11] MEDS: Insulin Lispro 100 UNIT/ML 3 ML VIAL SUBCUT ×4 (08:35→20:27)
[2022-07-11] MEDS: Apixaban 5 MG TABLET PO ×2 (08:35→20:28)
[2022-07-11] MEDS: Docusate Sodium 100 MG CAPSULE PO ×2 (08:35→20:26)
[2022-07-11] MEDS: amLODIPine Besylate 5 MG TABLET PO (08:36)
[2022-07-11] MEDS: Urea 15 GM POWDER 30 GM PO (08:36)
[2022-07-11] MEDS: hydrALAZINE HCl 25 MG TABLET PO ×2 (08:36→20:26)
[2022-07-11] MEDS: Metoprolol Tartrate 50 MG TABLET 150 MG PO ×2 (08:36→20:26)
[2022-07-11] MEDS: polyethylene glycoL 3350 17 GM POWD.PACK PO (08:36)
[2022-07-11] MEDS: Losartan Potassium 25 MG TABLET PO (08:36)
[2022-07-11 09:00] VITALS: O2SAT 96
[2022-07-11] MEDS: Lidocaine 4 % Patch ADH..PATCH 1 PATCH TRANSDERMA (09:00)
[2022-07-11 11:35] LABS: Glucose, Whole Blood 247 mg/dL (60-115)
--- NOTE | 2022-07-11 12:04 | MHC.CM.PN ---
PT AWAITING PLACEMENT LIKELY STR WITH PLAN TO TRANSITION TO LTC CURRENTLY NO BED OFFERS REFERRAL UPDATED AND EXPANDED
[2022-07-11 15:15] VITALS: BP 112/59; PULSE 90; RESP 16; TEMP 37.2; O2SAT 94
--- NOTE | 2022-07-11 15:42 | P.PNIM_ITS ---
Subjective Subjective Date of Service: 07/11/22 Interval History: no postop pain eager to get out of the hospital but no other complaints Review of Systems Review of Systems: Yes all other systems are reviewed and are negative Physical Exam Vital Signs: Vital Signs: Last Vital Signs Temp 98.9 F 07/11/22 15:15 Pulse 90 07/11/22 15:15 Resp 16 07/11/22 15:15 BP 112/59 L 07/11/22 15:15 Pulse Ox 94 07/11/22 15:15 O2 Del Method 07/11/22 15:15 O2 Flow Rate 2 07/08/22 10:02 BMI result Body Mass Index 26.6 Gen: in no acute distress HEENT: sclera anicteric, moist mucus membranes Neck: supple Lungs: clear to auscultation bilaterally Heart: irregular irregular, no murmurs Abd: soft, non-tender, non-distended Ext: no edema Skin: warm/well-perfused, sacral decubitus ulcer dressed Neuro: alert and oriented x3, no focal findings Psych: appropriate affect Objective Data Active Medications Acetaminophen (Acetaminophen 325 Mg Tablet) 650 mg PO Q6H PRN PRN Reason: Pain, Mild (Pain Scale 1-3) Last Admin: 07/10/22 10:45 Dose: 650 mg Documented By: RIC Amlodipine Besylate (Amlodipine Besylate 5 Mg Tablet) 5 mg PO DAILY [facility]; Protocol Last Admin: 07/11/22 08:36 Dose: 5 mg Documented By: TANISHA Apixaban (Apixaban 5 Mg Tablet) 5 mg PO BID [facility] Last Admin: 07/11/22 08:35 Dose: 5 mg Documented By: TANISHA Dextrose (Dextrose 50 % 25 Gm/50 Ml Syringe) 25 gm IVPUSH Q15M PRN; Protocol PRN Reason: per Hypoglycemia Standing Ord. Docusate Sodium (Docusate Sodium 100 Mg Capsule) 100 mg PO BID [facility] Last Admin: 07/11/22 08:35 Dose: 100 mg Documented By: TANISHA Glucose (Glucose Gel 15 Gm Gel..Gram.) 15 gm PO Q15M PRN; Protocol PRN Reason: per Hypoglycemia Standing Ord. Hydralazine HCl (Hydralazine Hcl 25 Mg Tablet) 25 mg PO BID [facility]; Protocol Last Admin: 07/11/22 08:36 Dose: 25 mg Documented By: TANISHA Insulin Glargine (Insulin Glargine,Hum.Rec.Anlog 100 Unit/Ml 10 Ml Vial) 20 unit SUBCUT DAILY@0730 [facility] Last Admin: 07/11/22 08:34 Dose: 20 unit Documented By: TANISHA Insulin Glargine (Insulin Glargine,Hum.Rec.Anlog 100 Unit/Ml 10 Ml Vial) 5 unit SUBCUT BEDTIME [facility] Last Admin: 07/10/22 20:43 Dose: 5 unit Documented By: ADRIANA Insulin Human Lispro (Insulin Lispro 100 Unit/Ml 3 Ml Vial) 0 unit SUBCUT QID ACHS [facility]; Protocol Last Admin: 07/11/22 11:43 Dose: 4 unit Documented By: TANISHA Lidocaine (Lidocaine 4 % Patch Adh..Patch) 1 patch TRANSDERMA DAILY [facility]; Protocol Last Admin: 07/11/22 09:00 Dose: 1 patch Documented By: TANISHA Losartan Potassium (Losartan Potassium 25 Mg Tablet) 25 mg PO DAILY [facility]; Protocol Last Admin: 07/11/22 08:36 Dose: 25 mg Documented By: TANISHA Metoprolol Tartrate (Metoprolol Tartrate 50 Mg Tablet) 150 mg PO BID [facility]; Pro tocol Last Admin: 07/11/22 08:36 Dose: 150 mg Documented By: TANISHA Ondansetron HCl (Ondansetron Hcl 4 Mg/2 Ml Vial) 4 mg IVPUSH Q8H PRN PRN Reason: Nausea and Vomiting Last Admin: 07/07/22 01:05 Dose: 4 mg Documented By: CASTILM Oxycodone HCl (Oxycodone Hcl Immed Release 5 Mg Tablet) 5 mg PO Q6H PRN PRN Reason: Pain, Moderate (Pain Scale 4-6 Last Admin: 07/10/22 10:45 Dose: 5 mg Documented By: RIC Pharmacy Consult (Consult Rx Perform Med Rec) 1 each MISCELLANE ONCE PRN PRN Reason: Consult order Polyethylene Glycol (Polyethylene Glycol 3350 17 Gm Powd.Pack) 17 gm PO DAILY PRN PRN Reason: constipation Last Admin: 06/28/22 22:01 Dose: 17 gm Documented By: ADRIANA Polyethylene Glycol (Polyethylene Glycol 3350 17 Gm Powd.Pack) 17 gm PO DAILY [facility] Last Admin: 07/11/22 08:36 Dose: 17 gm Documented By: TANISHA Sodium Chloride (0.9 % Sodium Chloride Flush 3 Ml Syringe) 3 ml IVFLUSH QSHIFT [facility] Last Admin: 07/11/22 15:29 Dose: 3 ml Documented By: TANISHA Tamsulosin HCl (Tamsulosin Hcl 0.4 Mg Capsule) 0.8 mg PO DAILY [facility] Last Admin: 07/11/22 08:35 Dose: 0.8 mg Documented By: TANISHA Urea (Urea 15 Gm Powder) 30 gm PO DAILY [facility] Last Admin: 07/11/22 08:36 Dose: 30 gm Documented By: TANISHA Vitamin D (Cholecalciferol (Vitamin D3) 25 Mcg Tablet) 50 mcg PO DAILY [facility] Last Admin: 07/11/22 08:35 Dose: 50 mcg Documented By: TANISHA Zinc Acetate/Diphenhydramine (Diphenhydramine Hcl 2 % Cream 28 Gm Tube) 1 appl TOPICAL TID PRN; Protocol PRN Reason: itching Labs CBC & Chem 7: 07/11/22 05:16 07/11/22 05:16 Labs: Laboratory Results - last 24 hr 07/10/22 07/10/22 07/11/22 15:55 20:26 05:16 MCV 84.0 MCH 27.3 MCHC 32.5 RDW 15.0 Plt Count 143 L D MPV 9.0 L Absolute Nucleated RBC 0.000 Nucleated RBC % (auto) 0.0 Anion Gap Estim Creat Clear Calc Estimated GFR POC Glucose 315 H 198 H Random Glucose Calcium 07/11/22 07/11/22 07/11/22 05:16 07:03 11:16 MCV MCH MCHC RDW Plt Count MPV Absolute Nucleated RBC Nucleated RBC % (auto) Anion Gap 12 Estim Creat Clear Calc 96.6 Estimated GFR > 60 POC Glucose 277 H 247 H Random Glucose 194 H Calcium 8.2 L Assessment and Plan (1) Traumatic subarachnoid hemorrhage: Status: Acute (2) Cerebral contusion: Status: Acute (3) Physical deconditioning: Status: Acute (4) Hyponatremia: Status: Acute Plan d#27 74yo M with DM2, HTN, HLD, chronic venous stasis dermatitis presented with mechanical fall, admitted for hypoxia due to PNA # traumatic SAH - held apixaban x2wk, restart today # acute hypoxic respiratory failure du eto PNA - finished 10d of ABX, weaned of O2 # urinary retention - bladder scan q8h, intermittent cath prn # mechanical fall - difficulty ambulating; awaiting SNF placement # generalized weakness - 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 but not clinically NPH per Neurology # acute/chronic hypoNa - resolved # new-onset AF/RVR - LVEF >70%, seen by Cardiology - rate-controlled on metoprolol tartrate - restarted apixaban 07/10/22 # incidental 1.3cm pancreatic lesions, may reflect adjacent pancreatic cysts - outpt MRI/MRCP # unstageable sacral decubitus ulcer - on 07/08 had debridement of sacral decubitus ulcer, including skin, dermis, subcutaneous tissue and muscle; operative findings of necrotic skin, subcutaneous tissue and muscle. Ulcer measured approximately 10 cm x 10 cm in diameter with a depth of 4 cm = stage 3; wet->dry dressing change q8h # DM2 - basal/bolus insulin # HTN - hydralazine, losartan, and metoprolol # HLD - statin # VTE ppx: SCDs, apixaban In my clinical judgment, the patient requires continued inpatient hospitalization for the following reasons: postop care, SNF placement Quality Stroke Does the patient have a stroke diagnosis?: No VTE Prior VTE?: No VTE Risk Level:: Medical - moderate - high VTE Device Contraindication: Treatment Not Indicated VTE Drug Contraindication: N/A - Med Ordered
[2022-07-11 16:25] LABS: Glucose, Whole Blood 223 mg/dL (60-115)
--- NOTE | 2022-07-11 18:51 | PC.NURSE ---
1130- Patient unable to void 6 hours after straight catheter. Patient bladder scanned for 526. Patient has no urge to void. Dr. Linares made aware, order to straight cath placed. Straight cath for 600ml. 1800- Patient not voided. Bladder scanned for 546. Dr. Linares made aware, roberts order placed. New roberts placed, no issues. 450 ml drained.
[2022-07-11 19:16] VITALS: BP 118/53; PULSE 91; RESP 18; TEMP 37.9; O2SAT 95
[2022-07-11 20:03] LABS: Glucose, Whole Blood 275 mg/dL (60-115)
[2022-07-11] MEDS: Insulin Glargine,Hum.rec.anlog 100 UNIT/ML 10 ML VIAL SUBCUT (20:26)
[2022-07-11] MEDS: oxyCODONE HCl Immed Release 5 MG TABLET PO (20:33)
[2022-07-12 03:48] VITALS: BP 121/57; PULSE 70; RESP 16; TEMP 37; O2SAT 94
[2022-07-12 07:57] LABS: Glucose, Whole Blood 133 mg/dL (60-115)
[2022-07-12 08:00] VITALS: BP 112/55; PULSE 86; RESP 16; TEMP 36.7; O2SAT 95
[2022-07-12] MEDS: amLODIPine Besylate 5 MG TABLET PO (08:08)
[2022-07-12] MEDS: Tamsulosin HCL 0.4 MG CAPSULE 0.8 MG PO (08:08)
[2022-07-12] MEDS: Metoprolol Tartrate 50 MG TABLET 150 MG PO ×2 (08:08→23:09)
[2022-07-12] MEDS: Losartan Potassium 25 MG TABLET PO (08:08)
[2022-07-12] MEDS: hydrALAZINE HCl 25 MG TABLET PO ×2 (08:08→23:10)
[2022-07-12 08:09] LABS: Glucose, Whole Blood 130 mg/dL (60-115)
[2022-07-12] MEDS: Apixaban 5 MG TABLET PO ×2 (08:09→23:10)
[2022-07-12] MEDS: Docusate Sodium 100 MG CAPSULE PO ×2 (08:09→23:10)
[2022-07-12] MEDS: 0.9 % Sodium Chloride Flush 3 ML SYRINGE IVFLUSH ×3 (08:09→23:11)
[2022-07-12] MEDS: Cholecalciferol (Vitamin D3) 25 MCG TABLET 50 MCG PO (08:09)
[2022-07-12] MEDS: polyethylene glycoL 3350 17 GM POWD.PACK PO (08:09)
[2022-07-12] MEDS: Lidocaine 4 % Patch ADH..PATCH 1 PATCH TRANSDERMA (08:09)
[2022-07-12] MEDS: Urea 15 GM POWDER 30 GM PO (08:10)
[2022-07-12] MEDS: Insulin Glargine,Hum.rec.anlog 100 UNIT/ML 10 ML VIAL 20 UNIT SUBCUT (08:10)
[2022-07-12] MEDS: Acetaminophen 325 MG TABLET 650 MG PO (09:39)
--- NOTE | 2022-07-12 10:31 | P.PNGS_ITS ---
Subjective Subjective Date of Service: 07/12/22 Interval history: Ulcer site sore. No new complaints. Sacral ulcer dressing currently being changed by RN students and teacher. Physical Exam Vital Signs: Vital Signs: Last Vital Signs Temp 98.0 F 07/12/22 08:00 Pulse 86 07/12/22 08:00 Resp 16 07/12/22 08:00 BP 112/55 L 07/12/22 08:00 Pulse Ox 95 07/12/22 08:00 O2 Del Method 07/12/22 08:00 O2 Flow Rate 2 07/08/22 10:02 BMI result Body Mass Index 26.6 Const: General: comfortable and no acute distress Resp: Effort & Inspection: normal respiratory effort Back/Spine/Pelvis: Other: sacral decubitus ulcer- visible subq fat, fibrinous exudate to wound base, there is some darkening of skin superiorly Skin: Other: no rash noted Objective Data Active Medications Acetaminophen (Acetaminophen 325 Mg Tablet) 650 mg PO Q6H PRN PRN Reason: Pain, Mild (Pain Scale 1-3) Last Admin: 07/12/22 09:39 Dose: 650 mg Documented By: VIKKI Amlodipine Besylate (Amlodipine Besylate 5 Mg Tablet) 5 mg PO DAILY ON LICENSE OF [facility]; Protocol Last Admin: 07/12/22 08:08 Dose: 5 mg Documented By: JETT Apixaban (Apixaban 5 Mg Tablet) 5 mg PO BID ON LICENSE OF [facility] Last Admin: 07/12/22 08:09 Dose: 5 mg Documented By: JETT Dextrose (Dextrose 50 % 25 Gm/50 Ml Syringe) 25 gm IVPUSH Q15M PRN; Protocol PRN Reason: per Hypoglycemia Standing Ord. Docusate Sodium (Docusate Sodium 100 Mg Capsule) 100 mg PO BID ON LICENSE OF [facility] Last Admin: 07/12/22 08:09 Dose: 100 mg Documented By: JETT Finasteride (Finasteride 5 Mg Tablet) 5 mg PO DAILY ON LICENSE OF [facility] Glucose (Glucose Gel 15 Gm Gel..Gram.) 15 gm PO Q15M PRN; Protocol PRN Reason: per Hypoglycemia Standing Ord. Hydralazine HCl (Hydralazine Hcl 25 Mg Tablet) 25 mg PO BID ON LICENSE OF [facility]; Protocol Last Admin: 07/12/22 08:08 Dose: 25 mg Documented By: JETT Insulin Glargine (Insulin Glargine,Hum.Rec.Anlog 100 Unit/Ml 10 Ml Vial) 20 unit SUBCUT DAILY@0730 ON LICENSE OF [facility] Last Admin: 07/12/22 08:10 Dose: 20 unit Documented By: JETT Insulin Glargine (Insulin Glargine,Hum.Rec.Anlog 100 Unit/Ml 10 Ml Vial) 5 unit SUBCUT BEDTIME ON LICENSE OF [facility] Last Admin: 07/11/22 20:26 Dose: 5 unit Documented By: TOM Insulin Human Lispro (Insulin Lispro 100 Unit/Ml 3 Ml Vial) 0 unit SUBCUT QIDACHS ON LICENSE OF [facility]; Protocol Last Admin: 07/12/22 07:58 Dose: Not Given Documented By: JETT Non-Admin Reason: No Insulin Coverage Lidocaine (Lidocaine 4 % Patch Adh..Patch) 1 patch TRANSDERMA DAILY ON LICENSE OF [facility]; Protocol Last Admin: 07/12/22 08:09 Dose: 1 patch Documented By: JETT Losartan Potassium (Losartan Potassium 25 Mg Tablet) 25 mg PO DAILY ON LICENSE OF [facility]; Protocol Last Admin: 07/12/22 08:08 Dose: 25 mg Documented By: JETT Metoprolol Tartrate (Metoprolol Tartrate 50 Mg Tablet) 150 mg PO BID ON LICENSE OF [facility]; Protocol Last Admin: 07/12/22 08:08 Dose: 150 mg Documented By: JETT Ondansetron HCl (Ondansetron Hcl 4 Mg/2 Ml Vial) 4 mg IVPUSH Q8H PRN PRN Reason: Nausea and Vomiting Last Admin: 07/07/22 01:05 Dose: 4 mg Documented By: MARIANN Oxycodone HCl (Oxycodone Hcl Immed Release 5 Mg Tablet) 5 mg PO Q6H PRN PRN Reason: Pain, Moderate (Pain Scale 4-6 Last Admin: 07/11/22 20:33 Dose: 5 mg Documented By: TOM Pharmacy Consult (Consult Rx Perform Med Rec) 1 each MISCELLANE ONCE PRN PRN Reason: Consult order Polyethylene Glycol (Polyethylene Glycol 3350 17 Gm Powd.Pack) 17 gm PO DAILY PRN PRN Reason: constipation Last Admin: 06/28/22 22:01 Dose: 17 gm Documented By: ADRIANA Polyethylene Glycol (Polyethylene Glycol 3350 17 Gm Powd.Pack) 17 gm PO DAILY ON LICENSE OF [facility] Last Admin: 07/12/22 08:09 Dose: 17 gm Documented By: JETT Sodium Chloride (0.9 % Sodium Chloride Flush 3 Ml Syringe) 3 ml IVFLUSH QSHIFT ON LICENSE OF [facility] Last Admin: 07/12/22 08:09 Dose: 3 ml Documented By: JETT Tamsulosin HCl (Tamsulosin Hcl 0.4 Mg Capsule) 0.8 mg PO DAILY ON LICENSE OF [facility] Last Admin: 07/12/22 08:08 Dose: 0.8 mg Documented By: JETT Urea (Urea 15 Gm Powder) 30 gm PO DAILY ON LICENSE OF [facility] Last Admin: 07/12/22 08:10 Dose: 30 gm Documented By: JETT Vitamin D (Cholecalciferol (Vitamin D3) 25 Mcg Tablet) 50 mcg PO DAILY ON LICENSE OF [facility] Last Admin: 07/12/22 08:09 Dose: 50 mcg Documented By: JETT Zinc Acetate/Diphenhydramine (Diphenhydramine Hcl 2 % Cream 28 Gm Tube) 1 appl TOPICAL TID PRN; Protocol PRN Reason: itching Labs CBC & Chem 7: 07/11/22 05:16 07/11/22 05:16 Labs: Laboratory Results - last 24 hr 07/11/22 07/11/22 07/11/22 11:16 16:08 19:43 POC Glucose 247 H 223 H 275 H 07/12/22 07/12/22 07:52 08:01 POC Glucose 133 H 130 H Procedures Date of Service Date of Service: 07/12/22 Progress Note: A&P Assessment and plan (1) Decubitus ulcer of sacral region, stage 3: Status: Acute (2) Status post excisional debridement: Status: Acute Plan 81 year old male admitted for hypoxia and respiratory failure following a fall found to have a sacral decubitus ulcer with necrotic skin requiring debridement in the OR. Stage 3 decubitus ulcer (full thickness skin loss down to subq fat)- The wound has some exudate at base overlying subq tissue. Dressing therefore changed to silver alginate to wound base followed by fluff and allevyn foam. Continue dressing changes BID, frequent repositioning, air loss bed, nutritional support. May need further debridement of skin superiorly. Time Spent With Patient Time: Total time spent is greater than 50% in coordination of care (as documented) at patient's floor/unit and/or counseling patient: Quality Stroke Does the patient have a stroke diagnosis?: No VTE Prior VTE?: No VTE Risk Level:: Medical - moderate - high VTE Device Contraindication: Treatment Not Indicated VTE Drug Contraindication: N/A - Med Ordered
[2022-07-12 11:11] VITALS: BP 93/48; PULSE 86; RESP 18; TEMP 36.5; O2SAT 95
[2022-07-12 11:21] LABS: Glucose, Whole Blood 199 mg/dL (60-115)
[2022-07-12] MEDS: Insulin Lispro 100 UNIT/ML 3 ML VIAL SUBCUT ×3 (11:32→23:11)
[2022-07-12] MEDS: Finasteride 5 MG TABLET PO (11:33)
--- NOTE | 2022-07-12 11:45 | MHC.CLN ---
F/U DIET= DIABETIC 2000 KCALS, NDD3 CONSISTENCY, 1500 ML FLUID RESTRICTION. ENSURE BID TO PROMOTE WOUND HEALING. PROVIDES ADDITIONAL 700 KCALS, 40 G PROTEIN. INTAKE X 3 DAYS=50-100%. COCCYX WOUND DEBRIDED 07/08. FOLLOW FOR INTAKE AND WOUND.
--- NOTE | 2022-07-12 12:25 | P.PNIM_ITS ---
Subjective Subjective Date of Service: 07/12/22 Interval History: retaining urine, Lemus placed otherwise no complaints Review of Systems Review of Systems: Yes all other systems are reviewed and are negative Physical Exam Vital Signs: Vital Signs: Last Vital Signs Temp 97.7 F 07/12/22 11:11 Pulse 86 07/12/22 11:11 Resp 18 07/12/22 11:11 BP 93/48 L 07/12/22 11:11 Pulse Ox 95 07/12/22 11:11 O2 Del Method 07/12/22 11:11 O2 Flow Rate 2 07/08/22 10:02 BMI result Body Mass Index 26.6 Gen: in no acute distress HEENT: sclera anicteric, moist mucus membranes Neck: supple Lungs: clear to auscultation bilaterally Heart: irregular irregular, no murmurs Abd: soft, non-tender, non-distended Ext: no edema Skin: warm/well-perfused, sacral decubitus ulcer dressed Neuro: alert and oriented x3, no focal findings Psych: appropriate affect Objective Data Active Medications Acetaminophen (Acetaminophen 325 Mg Tablet) 650 mg PO Q6H PRN PRN Reason: Pain, Mild (Pain Scale 1-3) Last Admin: 07/12/22 09:39 Dose: 650 mg Documented By: VIKKI Amlodipine Besylate (Amlodipine Besylate 5 Mg Tablet) 5 mg PO DAILY PENDING SALE TO [facility]; Protocol Last Admin: 07/12/22 08:08 Dose: 5 mg Documented By: JETT Apixaban (Apixaban 5 Mg Tablet) 5 mg PO BID [facility] TO [facility] Last Admin: 07/12/22 08:09 Dose: 5 mg Documented By: JETT Dextrose (Dextrose 50 % 25 Gm/50 Ml Syringe) 25 gm IVPUSH Q15M PRN; Protocol PRN Reason: per Hypoglycemia Standing Ord. Docusate Sodium (Docusate Sodium 100 Mg Capsule) 100 mg PO BID [facility] Last Admin: 07/12/22 08:09 Dose: 100 mg Documented By: JETT Finasteride (Finasteride 5 Mg Tablet) 5 mg PO DAILY [facility] TO [facility] Last Admin: 07/12/22 11:33 Dose: 5 mg Documented By: JETT Glucose (Glucose Gel 15 Gm Gel..Gram.) 15 gm PO Q15M PRN; Protocol PRN Reason: per Hypoglycemia Standing Ord. Hydralazine HCl (Hydralazine Hcl 25 Mg Tablet) 25 mg PO BID [facility] TO [facility]; Protocol Last Admin: 07/12/22 08:08 Dose: 25 mg Documented By: JETT Insulin Glargine (Insulin Glargine,Hum.Rec.Anlog 100 Unit/Ml 10 Ml Vial) 20 unit SUBCUT DAILY@0730 [facility] Last Admin: 07/12/22 08:10 Dose: 20 unit Documented By: JETT Insulin Glargine (Insulin Glargine,Hum.Rec.Anlog 100 Unit/Ml 10 Ml Vial) 5 unit SUBCUT BEDTIME [facility] Last Admin: 07/11/22 20:26 Dose: 5 unit Documented By: TOM Insulin Human Lispro (Insulin Lispro 100 Unit/Ml 3 Ml Vial) 0 unit SUBCUT QIDACHS [facility] TO [facility]; Protocol Last Admin: 07/12/22 11:32 Dose: 2 unit Documented By: JETT Lidocaine (Lidocaine 4 % Patch Adh..Patch) 1 patch TRANSDERMA DAILY [facility]END[facility] SALE TO [facility]; Protocol Last Admin: 07/12/22 08:09 Dose: 1 patch Documented By: JETT Losartan Potassium (Losartan Potassium 25 Mg Tablet) 25 mg PO DAILY [facility] TO [facility]; Protocol Last Admin: 07/12/22 08:08 Dose: 25 mg Documented By: JETT Metoprolol Tartrate (Metoprolol Tartrate 50 Mg Tablet) 150 mg PO BID [facility]END[facility] TO [facility]; Protocol Last Admin: 07/12/22 08:08 Dose: 150 mg Documented By: JETT Ondansetron HCl (Ondansetron Hcl 4 Mg/2 Ml Vial) 4 mg IVPUSH Q8H PRN PRN Reason: Nausea and Vomiting Last Admin: 07/07/22 01:05 Dose: 4 mg Documented By: CASTILCinthya Oxycodone HCl (Oxycodone Hcl Immed Release 5 Mg Tablet) 5 mg PO Q6H PRN PRN Reason: Pain, Moderate (Pain Scale 4-6 Last Admin: 07/11/22 20:33 Dose: 5 mg Documented By: TOM Pharmacy Consult (Consult Rx Perform Med Rec) 1 each MISCELLANE ONCE PRN PRN Reason: Consult order Polyethylene Glycol (Polyethylene Glycol 3350 17 Gm Powd.Pack) 17 gm PO DAILY PRN PRN Reason: constipation Last Admin: 06/28/22 22:01 Dose: 17 gm Documented By: ADRIANA Polyethylene Glycol (Polyethylene Glycol 3350 17 Gm Powd.Pack) 17 gm PO DAILY [facility]END[facility] TO [facility] Last Admin: 07/12/22 08:09 Dose: 17 gm Documented By: JETT Sodium Chloride (0.9 % Sodium Chloride Flush 3 Ml Syringe) 3 ml IVFLUSH QSHIFT [facility]END[facility] SALE TO [facility] Last Admin: 07/12/22 08:09 Dose: 3 ml Documented By: JETT Tamsulosin HCl (Tamsulosin Hcl 0.4 Mg Capsule) 0.8 mg PO DAILY [facility]END[facility] TO [facility] Last Admin: 07/12/22 08:08 Dose: 0.8 mg Documented By: JETT Urea (Urea 15 Gm Powder) 30 gm PO DAILY [facility] Last Admin: 07/12/22 08:10 Dose: 30 gm Documented By: JETT Vitamin D (Cholecalciferol (Vitamin D3) 25 Mcg Tablet) 50 mcg PO DAILY [facility]END[facility]ALE TO [facility] Last Admin: 07/12/22 08:09 Dose: 50 mcg Documented By: JETT Zinc Acetate/Diphenhydramine (Diphenhydramine Hcl 2 % Cream 28 Gm Tube) 1 appl TOPICAL TID PRN; Protocol PRN Reason: itching Labs CBC & Chem 7: 07/11/22 05:16 07/11/22 05:16 Labs: Laboratory Results - last 24 hr 07/11/22 07/11/22 07/12/22 16:08 19:43 07:52 POC Glucose 223 H 275 H 133 H 07/12/22 07/12/22 08:01 11:16 POC Glucose 130 H 199 H Assessment and Plan (1) Traumatic subarachnoid hemorrhage: Status: Acute (2) Cerebral contusion: Status: Acute (3) Physical deconditioning: Status: Acute (4) Hyponatremia: Status: Acute Plan d#28 74yo M with DM2, HTN, HLD, chronic venous stasis dermatitis presented with mechanical fall, admitted for hypoxia due to PNA # traumatic SAH - held apixaban x2wk, restart today # acute hypoxic respiratory failure du eto PNA - finished 10d of ABX, weaned of O2 # urinary retention - failed voiding trial x2, Lemus re-placed 07/11; continue tamsulosin and add finasteride # mechanical fall - difficulty ambulating; awaiting SNF placement # generalized weakness - 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 but not clinically NPH per Neurology # acute/chronic hypoNa - resolved # new-onset AF/RVR - LVEF >70%, seen by Cardiology - rate-controlled on metoprolol tartrate - restarted apixaban 07/10/22 # incidental 1.3cm pancreatic lesions, may reflect adjacent pancreatic cysts - outpt MRI/MRCP # unstageable sacral decubitus ulcer - on 07/08 had debridement of sacral decubitus ulcer, including skin, dermis, subcutaneous tissue and muscle; operative findings of necrotic skin, subcutaneous tissue and muscle. Ulcer measured approximately 10 cm x 10 cm in diameter with a depth of 4 cm = stage 3; Surgery following and wound has some exudate; wound care changed to silver alginate to wound base followed by fluff and Allevyn foam bid; may need repeat debridement # DM2 - basal/bolus insulin # HTN - hydralazine, losartan, and metoprolol # HLD - statin # VTE ppx: SCDs, apixaban In my clinical judgment, the patient requires continued inpatient hospitalization for the following reasons: postop care, SNF placement Quality Stroke Does the patient have a stroke diagnosis?: No VTE Prior VTE?: No VTE Risk Level:: Medical - moderate - high VTE Device Contraindication: Treatment Not Indicated VTE Drug Contraindication: N/A - Med Ordered
[2022-07-12 15:53] VITALS: BP 112/52; PULSE 83; RESP 16; TEMP 36.2; O2SAT 95
[2022-07-12 16:13] LABS: Glucose, Whole Blood 177 mg/dL (60-115)
[2022-07-12 19:52] VITALS: BP 131/57; PULSE 91; RESP 19; TEMP 36.8
[2022-07-12 20:53] LABS: Glucose, Whole Blood 207 mg/dL (60-115)
[2022-07-12] MEDS: Insulin Glargine,Hum.rec.anlog 100 UNIT/ML 10 ML VIAL SUBCUT (23:10)
[2022-07-13 03:07] VITALS: BP 112/56; PULSE 73; RESP 18; O2SAT 96
[2022-07-13] MEDS: oxyCODONE HCl Immed Release 5 MG TABLET PO ×3 (03:08→22:01)
[2022-07-13 04:00] VITALS: TEMP 36.3
[2022-07-13 07:39] LABS: Glucose, Whole Blood 134 mg/dL (60-115)
[2022-07-13 08:00] VITALS: BP 118/60; PULSE 94; RESP 17; TEMP 36.2; O2SAT 95
[2022-07-13] MEDS: Lidocaine 4 % Patch ADH..PATCH 1 PATCH TRANSDERMA (08:01)
[2022-07-13] MEDS: polyethylene glycoL 3350 17 GM POWD.PACK PO (08:01)
[2022-07-13] MEDS: Urea 15 GM POWDER 30 GM PO (08:01)
[2022-07-13] MEDS: Finasteride 5 MG TABLET PO (08:01)
[2022-07-13] MEDS: Docusate Sodium 100 MG CAPSULE PO ×2 (08:02→20:00)
[2022-07-13] MEDS: Insulin Glargine,Hum.rec.anlog 100 UNIT/ML 10 ML VIAL 20 UNIT SUBCUT (08:02)
[2022-07-13] MEDS: 0.9 % Sodium Chloride Flush 3 ML SYRINGE IVFLUSH (08:02)
[2022-07-13] MEDS: Cholecalciferol (Vitamin D3) 25 MCG TABLET 50 MCG PO (08:02)
[2022-07-13] MEDS: Apixaban 5 MG TABLET PO ×2 (08:03→20:01)
[2022-07-13] MEDS: Tamsulosin HCL 0.4 MG CAPSULE 0.8 MG PO (08:03)
[2022-07-13] MEDS: hydrALAZINE HCl 25 MG TABLET PO ×2 (08:08→20:00)
[2022-07-13] MEDS: Metoprolol Tartrate 50 MG TABLET 150 MG PO ×2 (08:08→20:00)
[2022-07-13] MEDS: Losartan Potassium 25 MG TABLET PO (08:08)
[2022-07-13] MEDS: amLODIPine Besylate 5 MG TABLET PO (08:08)
--- NOTE | 2022-07-13 10:50 | PC.NURSE ---
Patients IV leaking and out datedMD melo'ed patient to have no access, IV removed
--- NOTE | 2022-07-13 11:23 | HO.PM.IMPN ---
Subjective Subjective Date of Service: 07/13/22 Interval History: no pain no fever eating well Review of Systems Review of Systems: Yes all other systems are reviewed and are negative Physical Exam Vital Signs: Vital Signs: Last Vital Signs Temp 97.1 F 07/13/22 08:00 Pulse 94 07/13/22 08:00 Resp 17 07/13/22 08:00 BP 118/60 07/13/22 08:00 Pulse Ox 95 07/13/22 08:00 O2 Del Method 07/13/22 08:00 O2 Flow Rate 2 07/08/22 10:02 BMI result Body Mass Index 26.6 Gen: in no acute distress HEENT: sclera anicteric, moist mucus membranes Neck: supple Lungs: clear to auscultation bilaterally Heart: irregular irregular, no murmurs Abd: soft, non-tender, non-distended Ext: no edema Skin: warm/well-perfused, sacral decubitus ulcer dressed Neuro: alert and oriented x3, no focal findings Psych: appropriate affect Objective Data Active Medications Acetaminophen (Acetaminophen 325 Mg Tablet) 650 mg PO Q6H PRN PRN Reason: Pain, Mild (Pain Scale 1-3) Last Admin: 07/12/22 09:39 Dose: 650 mg Documented By: VIKKI Amlodipine Besylate (Amlodipine Besylate 5 Mg Tablet) 5 mg PO DAILY [facility]; Protocol Last Admin: 07/13/22 08:08 Dose: 5 mg Documented By: JETT Apixaban (Apixaban 5 Mg Tablet) 5 mg PO BID [facility] Last Admin: 07/13/22 08:03 Dose: 5 mg Documented By: JETT Dextrose (Dextrose 50 % 25 Gm/50 Ml Syringe) 25 gm IVPUSH Q15M PRN; Protocol PRN Reason: per Hypoglycemia Standing Ord. Docusate Sodium (Docusate Sodium 100 Mg Capsule) 100 mg PO BID [facility] Last Admin: 07/13/22 08:02 Dose: 100 mg Documented By: JETT Finasteride (Finasteride 5 Mg Tablet) 5 mg PO DAILY [facility] Last Admin: 07/13/22 08:01 Dose: 5 mg Documented By: JETT Glucose (Glucose Gel 15 Gm Gel..Gram.) 15 gm PO Q15M PRN; Protocol PRN Reason: per Hypoglycemia Standing Ord. Hydralazine HCl (Hydralazine Hcl 25 Mg Tablet) 25 mg PO BID [facility]; Protocol Last Admin: 07/13/22 08:08 Dose: 25 mg Documented By: JETT Insulin Glargine (Insulin Glargine,Hum.Rec.Anlog 100 Unit/Ml 10 Ml Vial) 20 unit SUBCUT DAILY@0730 [facility] Last Admin: 07/13/22 08:02 Dose: 20 unit Documented By: JETT Insulin Glargine (Insulin Glargine,Hum.Rec.Anlog 100 Unit/Ml 10 Ml Vial) 5 unit SUBCUT BEDTIME [facility] Last Admin: 07/12/22 23:10 Dose: 5 unit Documented By: AUGUSTINA Insulin Human Lispro (Insulin Lispro 100 Unit/Ml 3 Ml Vial) 0 unit SUBCUT QIDACHS [facility]; Protocol Last Admin: 07/13/22 07:43 Dose: Not Given Documented By: JETT Non-Admin Reason: No Insulin Coverage Lidocaine (Lidocaine 4 % Patch Adh..Patch) 1 patch TRANSDERMA DAILY [facility]; Protocol Last Admin: 07/13/22 08:01 Dose: 1 patch Documented By: JETT Losartan Potassium (Losartan Potassium 25 Mg Tablet) 25 mg PO DAILY [facility]; Protocol Last Admin: 07/13/22 08:08 Dose: 25 mg Documented By: JETT Metoprolol Tartrate (Metoprolol Tartrate 50 Mg Tablet) 150 mg PO BID [facility]; Protocol Last Admin: 07/13/22 08:08 Dose: 150 mg Documented By: JETT Ondansetron HCl (Ondansetron Hcl 4 Mg/2 Ml Vial) 4 mg IVPUSH Q8H PRN PRN Reason: Nausea and Vomiting Last Admin: 07/07/22 01:05 Dose: 4 mg Documented By: CASTILCinthya Oxycodone HCl (Oxycodone Hcl Immed Release 5 Mg Tablet) 5 mg PO Q6H PRN PRN Reason: Pain, Moderate (Pain Scale 4-6 Last Admin: 07/13/22 03:08 Dose: 5 mg Documented By: AUGUSTINA Pharmacy Consult (Consult Rx Perform Med Rec) 1 each MISCELLANE ONCE PRN PRN Reason: Consult order Polyethylene Glycol (Polyethylene Glycol 3350 17 Gm Powd.Pack) 17 gm PO DAILY PRN PRN Reason: constipation Last Admin: 06/28/22 22:01 Dose: 17 gm Documented By: ADRIANA Polyethylene Glycol (Polyethylene Glycol 3350 17 Gm Powd.Pack) 17 gm PO DAILY [facility] Last Admin: 07/13/22 08:01 Dose: 17 gm Documented By: JETT Sodium Chloride (0.9 % Sodium Chloride Flush 3 Ml Syringe) 3 ml IVFLUSH QSHIFT [facility] Last Admin: 07/13/22 08:02 Dose: 3 ml Documented By: JETT Tamsulosin HCl (Tamsulosin Hcl 0.4 Mg Capsule) 0.8 mg PO DAILY [facility] Last Admin: 07/13/22 08:03 Dose: 0.8 mg Documented By: JETT Urea (Urea 15 Gm Powder) 30 gm PO DAILY [facility] Last Admin: 07/13/22 08:01 Dose: 30 gm Documented By: JETT Vitamin D (Cholecalciferol (Vitamin D3) 25 Mcg Tablet) 50 mcg PO DAILY [facility] Last Admin: 07/13/22 08:02 Dose: 50 mcg Documented By: JETT Zinc Acetate/Diphenhydramine (Diphenhydramine Hcl 2 % Cream 28 Gm Tube) 1 appl TOPICAL TID PRN; Protocol PRN Reason: itching Labs CBC & Chem 7: 07/11/22 05:16 07/11/22 05:16 Labs: Laboratory Results - last 24 hr 07/12/22 07/12/22 07/13/22 16:08 20:01 07:27 POC Glucose 177 H 207 H 134 H Assessment and Plan (1) Traumatic subarachnoid hemorrhage: Status: Acute (2) Cerebral contusion: Status: Acute (3) Physical deconditioning: Status: Acute (4) Hyponatremia: Status: Acute Plan d#29 74yo M with DM2, HTN, HLD, chronic venous stasis dermatitis presented with mechanical fall, admitted for hypoxia due to PNA # traumatic SAH - held apixaban x2wk, restarted 07/10 # acute hypoxic respiratory failure due to PNA - finished 10d of ABX, weaned of O2 # urinary retention - failed voiding trial x2, Lemus re-placed 07/11; continue tamsulosin and added finasteride 07/12 # mechanical fall - difficulty ambulating; awaiting SNF placement # generalized weakness - 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 but not clinically NPH per Neurology # acute/chronic hypoNa - resolved # new-onset AF/RVR - LVEF >70%, seen by Cardiology - rate-controlled on metoprolol tartrate - restarted apixaban 07/10/22 # incidental 1.3cm pancreatic lesions, may reflect adjacent pancreatic cysts - outpt MRI/MRCP # unstageable sacral decubitus ulcer - on 07/08 had debridement of sacral decubitus ulcer, including skin, dermis, subcutaneous tissue and muscle; operative findings of necrotic skin, subcutaneous tissue and muscle. Ulcer measured approximately 10 cm x 10 cm in diameter with a depth of 4 cm = stage 3; Surgery following and wound has some exudate; wound care changed to silver alginate to wound base followed by fluff and Allevyn foam bid; may need repeat debridement # DM2 - basal/bolus insulin # HTN - hydralazine, losartan, and metoprolol # HLD - statin # VTE ppx: SCDs, apixaban In my clinical judgment, the patient requires continued inpatient hospitalization for the following reasons: postop care, SNF placement Time Spent With Patient Time: Total time managing care of this patient today ____ minutes. Quality Stroke Does the patient have a stroke diagnosis?: No VTE Prior VTE?: No VTE Risk Level:: Medical - moderate - high VTE Device Contraindication: Treatment Not Indicated VTE Drug Contraindication: N/A - Med Ordered
[2022-07-13 11:34] LABS: Glucose, Whole Blood 260 mg/dL (60-115)
[2022-07-13] MEDS: Insulin Lispro 100 UNIT/ML 3 ML VIAL SUBCUT ×3 (11:37→20:01)
[2022-07-13 15:35] VITALS: BP 136/65; PULSE 86; RESP 18; TEMP 36.5; O2SAT 97
[2022-07-13 16:23] LABS: Glucose, Whole Blood 171 mg/dL (60-115)
[2022-07-13 19:32] VITALS: BP 132/59; PULSE 98; RESP 16; TEMP 36.9; O2SAT 97
[2022-07-13 19:49] LABS: Glucose, Whole Blood 157 mg/dL (60-115)
[2022-07-13] MEDS: Insulin Glargine,Hum.rec.anlog 100 UNIT/ML 10 ML VIAL SUBCUT (20:01)
[2022-07-14 02:38] VITALS: BP 112/55; PULSE 73; RESP 18; TEMP 36.6; O2SAT 98
[2022-07-14 07:34] VITALS: BP 120/59; PULSE 89; RESP 17; TEMP 37.3; O2SAT 94
[2022-07-14 07:42] LABS: Glucose, Whole Blood 164 mg/dL (60-115)
[2022-07-14] MEDS: Apixaban 5 MG TABLET PO ×2 (07:57→21:24)
[2022-07-14] MEDS: Insulin Lispro 100 UNIT/ML 3 ML VIAL SUBCUT ×4 (07:57→21:24)
[2022-07-14] MEDS: Tamsulosin HCL 0.4 MG CAPSULE 0.8 MG PO (07:57)
[2022-07-14] MEDS: Losartan Potassium 25 MG TABLET PO (07:57)
[2022-07-14] MEDS: Insulin Glargine,Hum.rec.anlog 100 UNIT/ML 10 ML VIAL 20 UNIT SUBCUT (07:57)
[2022-07-14] MEDS: Cholecalciferol (Vitamin D3) 25 MCG TABLET 50 MCG PO (07:58)
[2022-07-14] MEDS: Lidocaine 4 % Patch ADH..PATCH 1 PATCH TRANSDERMA (07:59)
[2022-07-14] MEDS: Metoprolol Tartrate 50 MG TABLET 150 MG PO ×2 (07:59→21:24)
[2022-07-14] MEDS: Docusate Sodium 100 MG CAPSULE PO ×2 (07:59→21:24)
[2022-07-14] MEDS: amLODIPine Besylate 5 MG TABLET PO (07:59)
[2022-07-14] MEDS: Finasteride 5 MG TABLET PO (07:59)
[2022-07-14 11:51] LABS: Glucose, Whole Blood 212 mg/dL (60-115)
--- NOTE | 2022-07-14 12:03 | P.PNIM_ITS ---
Subjective Subjective Date of Service: 07/14/22 Interval History: Being followed for placement and repeat debridement by General surgery, patient resting comfortably offers of no acute complaints common denies fever chills, no nausea no vomiting no abdominal pain, no other acute issues. Review of Systems Review of Systems: Yes all other systems are reviewed and are negative Physical Exam Vital Signs: Vital Signs: Last Vital Signs Temp 99.2 F 07/14/22 07:34 Pulse 89 07/14/22 07:34 Resp 17 07/14/22 07:34 BP 120/59 L 07/14/22 07:34 Pulse Ox 94 07/14/22 07:34 O2 Del Method 07/14/22 07:34 O2 Flow Rate 2 07/08/22 10:02 BMI result Body Mass Index 26.6 Const: Other: Gen: Awake alert, in no acute distress HEENT: sclera anicteric, moist mucus membranes Neck: supple Lungs: clear to auscultation bilaterally Heart: irregular irregular, no murmurs Abd: soft, non-tender, non-distended Ext: no edema Skin: warm/well-perfused, sacral decubitus ulcer dressing in place Neuro: alert and oriented x3, no focal findings Psych: appropriate affect Objective Data Active Medications Acetaminophen (Acetaminophen 325 Mg Tablet) 650 mg PO Q6H PRN PRN Reason: Pain, Mild (Pain Scale 1-3) Last Admin: 07/12/22 09:39 Dose: 650 mg Documented By: VIKKI Amlodipine Besylate (Amlodipine Besylate 5 Mg Tablet) 5 mg PO DAILY [facility]; Protocol Last Admin: 07/14/22 07:59 Dose: 5 mg Documented By: NARCISO Apixaban (Apixaban 5 Mg Tablet) 5 mg PO BID [facility] Last Admin: 07/14/22 07:57 Dose: 5 mg Documented By: NARCISO Dextrose (Dextrose 50 % 25 Gm/50 Ml Syringe) 25 gm IVPUSH Q15M PRN; Protocol PRN Reason: per Hypoglycemia Standing Ord. Docusate Sodium (Docusate Sodium 100 Mg Capsule) 100 mg PO BID [facility] Last Admin: 07/14/22 07:59 Dose: 100 mg Documented By: NARCISO Finasteride (Finasteride 5 Mg Tablet) 5 mg PO DAILY [facility] Last Admin: 07/14/22 07:59 Dose: 5 mg Documented By: NARCISO Glucose (Glucose Gel 15 Gm Gel..Gram.) 15 gm PO Q15M PRN; Protocol PRN Reason: per Hypoglycemia Standing Ord. Insulin Glargine (Insulin Glargine,Hum.Rec.Anlog 100 Unit/Ml 10 Ml Vial) 20 unit SUBCUT DAILY@0730 [facility] Last Admin: 07/14/22 07:57 Dose: 20 unit Documented By: NARCISO Insulin Glargine (Insulin Glargine,Hum.Rec.Anlog 100 Unit/Ml 10 Ml Vial) 5 unit SUBCUT BEDTIME [facility] Last Admin: 07/13/22 20:01 Dose: 5 unit Documented By: ADRIANA Insulin Human Lispro (Insulin Lispro 100 Unit/Ml 3 Ml Vial) 0 unit SUBCUT QIDACHS [facility]; Protocol Last Admin: 07/14/22 07:57 Dose: 2 unit Documented By: NARCISO Lidocaine (Lidocaine 4 % Patch Adh..Patch) 1 patch TRANSDERMA DAILY [facility]; Protocol Last Admin: 07/14/22 07:59 Dose: 1 patch Documented By: NARCISO Losartan Potassium (Losartan Potassium 25 Mg Tablet) 25 mg PO DAILY [facility]; Protocol Last Admin: 07/14/22 07:57 Dose: 25 mg Documented By: NARCISO Metoprolol Tartrate (Metoprolol Tartrate 50 Mg Tablet) 150 mg PO BID [facility]; Protocol Last Admin: 07/14/22 07:59 Dose: 150 mg Documented By: NARCISO Ondansetron HCl (Ondansetron Hcl 4 Mg/2 Ml Vial) 4 mg IVPUSH Q8H PRN PRN Reason: Nausea and Vomiting Last Admin: 07/07/22 01:05 Dose: 4 mg Documented By: CASTILCinthya Oxycodone HCl (Oxycodone Hcl Immed Release 5 Mg Tablet) 5 mg PO Q6H PRN PRN Reason: Pain, Moderate (Pain Scale 4-6 Last Admin: 07/13/22 22:01 Dose: 5 mg Documented By: ADRIANA Pharmacy Consult (Consult Rx Perform Med Rec) 1 each MISCELLANE ONCE PRN PRN Reason: Consult order Polyethylene Glycol (Polyethylene Glycol 3350 17 Gm Powd.Pack) 17 gm PO DAILY PRN PRN Reason: constipation Last Admin: 06/28/22 22:01 Dose: 17 gm Documented By: ADRIANA Polyethylene Glycol (Polyethylene Glycol 3350 17 Gm Powd.Pack) 17 gm PO DAILY [facility] Last Admin: 07/14/22 08:07 Dose: Not Given Documented By: NARCISO Non-Admin Reason: Patient Refused Sodium Chloride (0.9 % Sodium Chloride Flush 3 Ml Syringe) 3 ml IVFLUSH QSHIFT [facility] Last Admin: 07/14/22 07:24 Dose: Not Given Documented By: NARCISO Non-Admin Reason: No Access Tamsulosin HCl (Tamsulosin Hcl 0.4 Mg Capsule) 0.8 mg PO DAILY [facility] Last Admin: 07/14/22 07:57 Dose: 0.8 mg Documented By: NARCISO Urea (Urea 15 Gm Powder) 30 gm PO DAILY [facility] Last Admin: 07/14/22 08:07 Dose: Not Given Documented By: NARCISO Non-Admin Reason: Patient Refused Vitamin D (Cholecalciferol (Vitamin D3) 25 Mcg Tablet) 50 mcg PO DAILY [facility] Last Admin: 07/14/22 07:58 Dose: 50 mcg Documented By: NARCISO Zinc Acetate/Diphenhydramine (Diphenhydramine Hcl 2 % Cream 28 Gm Tube) 1 appl TOPICAL TID PRN; Protocol PRN Reason: itching Labs CBC & Chem 7: 07/11/22 05:16 07/11/22 05:16 Labs: Laboratory Results - last 24 hr 07/13/22 07/13/22 07/14/22 15:39 19:34 07:33 POC Glucose 171 H 157 H 164 H 07/14/22 11:31 POC Glucose 212 H Assessment and Plan (1) Traumatic subarachnoid hemorrhage: Status: Acute (2) Cerebral contusion: Status: Acute (3) Physical deconditioning: Status: Acute (4) Hyponatremia: Status: Acute Plan d#29 74yo M with DM2, HTN, HLD, chronic venous stasis dermatitis presented with mechanical fall, admitted for hypoxia due to PNA # traumatic SAH - held apixaban x2wk, restarted 07/10 # acute hypoxic respiratory failure due to PNA - finished 10d of ABX, oxygenation stable 94% on room air # urinary retention - failed voiding trial x2, Lemus re-placed 07/11; continue tamsulosin and finasteride added on 07/12 # mechanical fall - difficulty ambulating; awaiting SNF placement # generalized weakness - 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 but not clinically NPH per Neurology # acute/chronic hypoNa - resolved # new-onset AF/RVR - LVEF >70%, seen by Cardiology - rate-controlled on metoprolol tartrate - restarted apixaban 07/10/22 # incidental 1.3cm pancreatic lesions, may reflect adjacent pancreatic cysts - outpt MRI/MRCP # unstageable sacral decubitus ulcer - on 07/08 had debridement of sacral decubitus ulcer, including skin, dermis, subcutaneous tissue and muscle; operative findings of necrotic skin, subcutaneous tissue and muscle. Ulcer measured approximately 10 cm x 10 cm in diameter with a depth of 4 cm = stage 3; Surgery following and wound has some exudate; wound care changed to silver alginate to wound base followed by fluff and Allevyn foam bid; may need repeat debridement, will follow up with General surgery # DM2 - basal/bolus insulin, fluctuating blood sugars will follow closely # HTN - stable blood pressure, continue hydralazine, losartan, and metoprolol # HLD - statin # VTE ppx: SCDs, apixaban In my clinical judgment, the patient requires continued inpatient hospitalization for the following reasons: SNF placement and follow-up with General surgery for repeat debridement Time Spent With Patient Time: Total time managing care of this patient today ____ minutes. Quality Stroke Does the patient have a stroke diagnosis?: No VTE Prior VTE?: No VTE Risk Level:: Medical - moderate - high VTE Device Contraindication: Treatment Not Indicated VTE Drug Contraindication: N/A - Med Ordered
[2022-07-14 15:59] VITALS: BP 148/65; PULSE 88; RESP 20; TEMP 36.6; O2SAT 95
[2022-07-14 16:22] LABS: Glucose, Whole Blood 261 mg/dL (60-115)
[2022-07-14 18:57] VITALS: BP 138/65; PULSE 89; RESP 20; TEMP 37; O2SAT 96
[2022-07-14 19:26] LABS: Glucose, Whole Blood 204 mg/dL (60-115)
[2022-07-14] MEDS: Insulin Glargine,Hum.rec.anlog 100 UNIT/ML 10 ML VIAL SUBCUT (21:23)
[2022-07-14] MEDS: 0.9 % Sodium Chloride Flush 3 ML SYRINGE IVFLUSH (21:24)
[2022-07-15 04:00] VITALS: BP 128/64; PULSE 94; RESP 17; TEMP 36.5; O2SAT 94
[2022-07-15 07:52] LABS: Glucose, Whole Blood 185 mg/dL (60-115)
[2022-07-15 08:00] VITALS: BP 121/77; PULSE 94; RESP 18; TEMP 36.1; O2SAT 94
[2022-07-15] MEDS: Insulin Glargine,Hum.rec.anlog 100 UNIT/ML 10 ML VIAL 20 UNIT SUBCUT (08:23)
[2022-07-15] MEDS: Finasteride 5 MG TABLET PO (08:23)
[2022-07-15] MEDS: Urea 15 GM POWDER 30 GM PO (08:25)
[2022-07-15] MEDS: oxyCODONE HCl Immed Release 5 MG TABLET PO ×3 (08:29→20:14)
[2022-07-15] MEDS: Tamsulosin HCL 0.4 MG CAPSULE 0.8 MG PO (08:29)
[2022-07-15] MEDS: amLODIPine Besylate 5 MG TABLET PO (08:30)
[2022-07-15] MEDS: Apixaban 5 MG TABLET PO ×2 (08:30→20:14)
[2022-07-15] MEDS: Metoprolol Tartrate 50 MG TABLET 150 MG PO ×2 (08:30→20:14)
[2022-07-15] MEDS: Cholecalciferol (Vitamin D3) 25 MCG TABLET 50 MCG PO (08:30)
[2022-07-15] MEDS: Docusate Sodium 100 MG CAPSULE PO (08:30)
[2022-07-15] MEDS: Losartan Potassium 25 MG TABLET PO (08:31)
[2022-07-15] MEDS: Insulin Lispro 100 UNIT/ML 3 ML VIAL SUBCUT ×4 (08:36→20:14)
[2022-07-15 11:13] LABS: Glucose, Whole Blood 295 mg/dL (60-115)
--- NOTE | 2022-07-15 11:47 | MHC.CLN ---
F/U DIET= DIABETIC 2000 KCALS, NDD3 CONSISTENCY, 1500 ML FLUID RESTRICTION. ENSURE BID TO PROMOTE WOUND HEALING. PROVIDES ADDITIONAL 700 KCALS, 40 G PROTEIN. CONTINUES WITH VARIABLE INTAKE, WITH MOST RECENT MEALS AT LEAST 50%. COCCYX WOUND DEBRIDED 07/08. FOLLOW FOR INTAKE AND WOUND.
--- NOTE | 2022-07-15 15:21 | P.PNIM_ITS ---
Subjective Subjective Date of Service: 07/15/22 Interval History: Offers no acute complaints, tolerating diet, no nausea, no vomiting, no abdominal pain, no other acute events overnight. Being followed for placement and repeat debridement by General surgery Review of Systems Review of Systems: Yes all other systems are reviewed and are negative Physical Exam Vital Signs: Vital Signs: Last Vital Signs Temp 97.0 F 07/15/22 08:00 Pulse 94 07/15/22 08:00 Resp 18 07/15/22 08:00 BP 121/77 07/15/22 08:00 Pulse Ox 94 07/15/22 08:00 O2 Del Method 07/15/22 08:00 O2 Flow Rate 2 07/08/22 10:02 BMI result Body Mass Index 26.6 Const: Other: Gen:? Awake alert, in no acute distr ess HEENT: sclera anicteric, moist m ucus membranes Nec k: supple Lungs: c lear to auscultati on bilaterally Hea rt: irregular irre gular, no murmurs Abd: soft, non-ten kinza, non-distended Ext: no edema Ski n: warm/well-perfu sed, sacral decubi tus ulcer dressing in place Neuro: a lert and oriented x3, no focal findi ngs Psych: appropr iate affect Objective Data Active Medications Acetaminophen (Acetaminophen 325 Mg Tablet) 650 mg PO Q6H PRN PRN Reason: Pain, Mild (Pain Scale 1-3) Last Admin: 07/12/22 09:39 Dose: 650 mg Documented By: VIKKI Amlodipine Besylate (Amlodipine Besylate 5 Mg Tablet) 5 mg PO DAILY [facility]; Protocol Last Admin: 07/15/22 08:30 Dose: 5 mg Documented By: CLIVE Apixaban (Apixaban 5 Mg Tablet) 5 mg PO BID [facility] Last Admin: 07/15/22 08:30 Dose: 5 mg Documented By: CLIVE Dextrose (Dextrose 50 % 25 Gm/50 Ml Syringe) 25 gm IVPUSH Q15M PRN; Protocol PRN Reason: per Hypoglycemia Standing Ord. Docusate Sodium (Docusate Sodium 100 Mg Capsule) 100 mg PO BID [facility] Last Admin: 07/15/22 08:30 Dose: 100 mg Documented By: CLIVE Finasteride (Finasteride 5 Mg Tablet) 5 mg PO DAILY [facility] Last Admin: 07/15/22 08:23 Dose: 5 mg Documented By: CLIVE Glucose (Glucose Gel 15 Gm Gel..Gram.) 15 gm PO Q15M PRN; Protocol PRN Reason: per Hypoglycemia Standing Ord. Insulin Glargine (Insulin Glargine,Hum.Rec.Anlog 100 Unit/Ml 10 Ml Vial) 20 unit SUBCUT DAILY@0730 [facility] Last Admin: 07/15/22 08:23 Dose: 20 unit Documented By: CLIVE Insulin Glargine (Insulin Glargine,Hum.Rec.Anlog 100 Unit/Ml 10 Ml Vial) 5 unit SUBCUT BEDTIME [facility] Last Admin: 07/14/22 21:23 Dose: 5 unit Documented By: CHARLI Insulin Human Lispro (Insulin Lispro 100 Unit/Ml 3 Ml Vial) 0 unit SUBCUT QIDACHS [facility]; Protocol Last Admin: 07/15/22 11:33 Dose: 6 unit Documented By: BRENDA Lidocaine (Lidocaine 4 % Patch Adh..Patch) 1 patch TRANSDERMA DAILY [facility]; Protocol Last Admin: 07/15/22 08:31 Dose: Not Given Documented By: CLIVE Non-Admin Reason: Patient Refused Losartan Potassium (Losartan Potassium 25 Mg Tablet) 25 mg PO DAILY [facility]; Protocol Last Admin: 07/15/22 08:31 Dose: 25 mg Documented By: CLIVE Metoprolol Tartrate (Metoprolol Tartrate 50 Mg Tablet) 150 mg PO BID [facility]; Protocol Last Admin: 07/15/22 08:30 Dose: 150 mg Documented By: CLIVE Ondansetron HCl (Ondansetron Hcl 4 Mg/2 Ml Vial) 4 mg IVPUSH Q8H PRN PRN Reason: Nausea and Vomiting Last Admin: 07/07/22 01:05 Dose: 4 mg Documented By: CASTILCinthya Oxycodone HCl (Oxycodone Hcl Immed Release 5 Mg Tablet) 5 mg PO Q6H PRN PRN Reason: Pain, Moderate (Pain Scale 4-6 Last Admin: 07/15/22 14:06 Dose: 5 mg Documented By: BRENDA Pharmacy Consult (Consult Rx Perform Med Rec) 1 each MISCELLANE ONCE PRN PRN Reason: Consult order Polyethylene Glycol (Polyethylene Glycol 3350 17 Gm Powd.Pack) 17 gm PO DAILY PRN PRN Reason: constipation Last Admin: 06/28/22 22:01 Dose: 17 gm Documented By: ADRIANA Polyethylene Glycol (Polyethylene Glycol 3350 17 Gm Powd.Pack) 17 gm PO DAILY [facility] Last Admin: 07/15/22 08:32 Dose: Not Given Documented By: CLIVE Non-Admin Reason: Patient Refused Sodium Chloride (0.9 % Sodium Chloride Flush 3 Ml Syringe) 3 ml IVFLUSH QSHIFT [facility] Last Admin: 07/15/22 08:36 Dose: Not Given Documented By: CLIVE Non-Admin Reason: No Access Tamsulosin HCl (Tamsulosin Hcl 0.4 Mg Capsule) 0.8 mg PO DAILY [facility] Last Admin: 07/15/22 08:29 Dose: 0.8 mg Documented By: CLIVE Urea (Urea 15 Gm Powder) 30 gm PO DAILY [facility] Last Admin: 07/15/22 08:25 Dose: 30 gm Documented By: CLIVE Vitamin D (Cholecalciferol (Vitamin D3) 25 Mcg Tablet) 50 mcg PO DAILY [facility] Last Admin: 07/15/22 08:30 Dose: 50 mcg Documented By: CLIVE Zinc Acetate/Diphenhydramine (Diphenhydramine Hcl 2 % Cream 28 Gm Tube) 1 appl TOPICAL TID PRN; Protocol PRN Reason: itching Labs CBC & Chem 7: 07/11/22 05:16 07/11/22 05:16 Labs: Laboratory Results - last 24 hr 07/14/22 07/14/22 07/15/22 16:02 19:01 07:48 POC Glucose 261 H 204 H 185 H 07/15/22 11:09 POC Glucose 295 H Assessment and Plan (1) Traumatic subarachnoid hemorrhage: Status: Acute (2) Cerebral contusion: Status: Acute (3) Physical deconditioning: Status: Acute (4) Hyponatremia: Status: Acute Plan d#29 74yo M with DM2, HTN, HLD, chronic venous stasis dermatitis presented with mechanical fall, admitted for hypoxia due to PNA # traumatic SAH - no headache, no dizziness, held apixaban x2wk, restarted 07/10 # acute hypoxic respiratory failure due to PNA - finished 10d of ABX, oxygenation stable 94% on room air # urinary retention - failed voiding trial x2, Lemus re-placed 07/11; continue tamsulosin and finasteride added on 07/12 # mechanical fall - difficulty ambulating; awaiting SNF placement # generalized weakness - 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 but not clinically NPH per Neurology # acute/chronic hypoNa - resolved # new-onset AF/RVR - LVEF >70%, seen by Cardiology - rate-controlled on metoprolol tartrate - restarted apixaban 07/10/22 # incidental 1.3cm pancreatic lesions, may reflect adjacent pancreatic cysts - outpt MRI/MRCP # unstageable sacral decubitus ulcer - on 07/08 had debridement of sacral decubitus ulcer, including skin, dermis, subcutaneous tissue and muscle; operative findings of necrotic skin, subcutaneous tissue and muscle. Ulcer measured approximately 10 cm x 10 cm in diameter with a depth of 4 cm = stage 3; Surgery following and wound has some exudate; wound care changed to silver alginate to wound base followed by fluff and Allevyn foam bid; may need repeat debridement, will follow up with General surgery # DM2 - basal/bolus insulin, fluctuating blood sugars will follow closely # HTN - stable blood pressure, continue hydralazine, losartan, and metoprolol # HLD - statin # VTE ppx: SCDs, apixaban In my clinical judgment, the patient requires continued inpatient hospitaliz ation for the following reasons: SNF placement and follow-up with General surgery for repeat debridement Time Spent With Patient Time: Total time managing care of this patient today ____ minutes. Quality Stroke Does the patient have a stroke diagnosis?: No VTE Prior VTE?: No VTE Risk Level:: Medical - moderate - high VTE Device Contraindication: Treatment Not Indicated VTE Drug Contraindication: N/A - Med Ordered
[2022-07-15 16:00] VITALS: BP 128/68; PULSE 93; RESP 18; TEMP 36.5; O2SAT 97
[2022-07-15 16:26] LABS: Glucose, Whole Blood 245 mg/dL (60-115)
[2022-07-15 20:12] LABS: Glucose, Whole Blood 292 mg/dL (60-115)
[2022-07-15] MEDS: Insulin Glargine,Hum.rec.anlog 100 UNIT/ML 10 ML VIAL SUBCUT (20:14)
[2022-07-16] VITALS: BP 105/58; PULSE 76; RESP 14; TEMP 36.7; O2SAT 95
[2022-07-16 07:40] LABS: Glucose, Whole Blood 184 mg/dL (60-115)
[2022-07-16 07:49] VITALS: BP 124/62; PULSE 90; RESP 16; TEMP 36.2; O2SAT 97
[2022-07-16] MEDS: Insulin Glargine,Hum.rec.anlog 100 UNIT/ML 10 ML VIAL 20 UNIT SUBCUT (08:09)
[2022-07-16] MEDS: Insulin Lispro 100 UNIT/ML 3 ML VIAL SUBCUT ×4 (08:09→21:34)
[2022-07-16] MEDS: oxyCODONE HCl Immed Release 5 MG TABLET PO ×2 (08:09→19:07)
[2022-07-16] MEDS: amLODIPine Besylate 5 MG TABLET PO (08:10)
[2022-07-16] MEDS: Finasteride 5 MG TABLET PO (08:10)
[2022-07-16] MEDS: Tamsulosin HCL 0.4 MG CAPSULE 0.8 MG PO (08:10)
[2022-07-16] MEDS: Docusate Sodium 100 MG CAPSULE PO ×2 (08:10→21:35)
[2022-07-16] MEDS: Cholecalciferol (Vitamin D3) 25 MCG TABLET 50 MCG PO (08:10)
[2022-07-16] MEDS: Apixaban 5 MG TABLET PO ×2 (08:11→21:34)
[2022-07-16] MEDS: Losartan Potassium 25 MG TABLET PO (08:11)
[2022-07-16] MEDS: Metoprolol Tartrate 50 MG TABLET 150 MG PO ×2 (08:11→21:34)
[2022-07-16] MEDS: Lidocaine 4 % Patch ADH..PATCH 1 PATCH TRANSDERMA (08:12)
[2022-07-16] MEDS: Urea 15 GM POWDER 30 GM PO (08:12)
[2022-07-16] MEDS: polyethylene glycoL 3350 17 GM POWD.PACK PO (08:12)
--- NOTE | 2022-07-16 11:28 | P.PNIM_ITS ---
Subjective Subjective Date of Service: 07/16/22 Interval History: Awake alert sitting comfortably offers no acute complaints, no acute events overnight, denies fever chills, no pain, tolerating diet. Review of Systems Review of Systems: Yes all other systems are reviewed and are negative Physical Exam Vital Signs: Vital Signs: Last Vital Signs Temp 97.2 F 07/16/22 07:49 Pulse 90 07/16/22 07:49 Resp 16 07/16/22 07:49 BP 124/62 07/16/22 07:49 Pulse Ox 97 07/16/22 07:49 O2 Del Method 07/16/22 07:49 O2 Flow Rate 2 07/08/22 10:02 BMI result Body Mass Index 26.6 Const: Other: Gen:? Awake alert, in no acute distress HEENT: sclera anicteric, moist mucus membranes Neck: supple Lungs: clear to auscultation bilaterally Heart: irregular irregular, no murmurs Abd: soft, non-tender, non-distended Ext: no edema Skin: warm/well-perfused, sacral decubitus ulcer dressing in place Neuro: alert and oriented x3, no focal findings Psych: appropriate affect Objective Data Active Medications Acetaminophen (Acetaminophen 325 Mg Tablet) 650 mg PO Q6H PRN PRN Reason: Pain, Mild (Pain Scale 1-3) Last Admin: 07/12/22 09:39 Dose: 650 mg Documented By: VIKKI Amlodipine Besylate (Amlodipine Besylate 5 Mg Tablet) 5 mg PO DAILY [facility]; Protocol Last Admin: 07/16/22 08:10 Dose: 5 mg Documented By: CLIVE Apixaban (Apixaban 5 Mg Tablet) 5 mg PO BID [facility] Last Admin: 07/16/22 08:11 Dose: 5 mg Documented By: CLIVE Dextrose (Dextrose 50 % 25 Gm/50 Ml Syringe) 25 gm IVPUSH Q15M PRN; Protocol PRN Reason: per Hypoglycemia Standing Ord. Docusate Sodium (Docusate Sodium 100 Mg Capsule) 100 mg PO BID [facility] Last Admin: 07/16/22 08:10 Dose: 100 mg Documented By: CLIVE Finasteride (Finasteride 5 Mg Tablet) 5 mg PO DAILY [facility] Last Admin: 07/16/22 08:10 Dose: 5 mg Documented By: CLIVE Glucose (Glucose Gel 15 Gm Gel..Gram.) 15 gm PO Q15M PRN; Protocol PRN Reason: per Hypoglycemia Standing Ord. Insulin Glargine (Insulin Glargine,Hum.Rec.Anlog 100 Unit/Ml 10 Ml Vial) 20 unit SUBCUT DAILY@0730 [facility] Last Admin: 07/16/22 08:09 Dose: 20 unit Documented By: CLIVE Insulin Glargine (Insulin Glargine,Hum.Rec.Anlog 100 Unit/Ml 10 Ml Vial) 5 unit SUBCUT BEDTIME [facility] Last Admin: 07/15/22 20:14 Dose: 5 unit Documented By: ADRIANA Insulin Human Lispro (Insulin Lispro 100 Unit/Ml 3 Ml Vial) 0 unit SUBCUT QIDACHS [facility]; Protocol Last Admin: 07/16/22 08:09 Dose: 2 unit Documented By: CLIVE Lidocaine (Lidocaine 4 % Patch Adh..Patch) 1 patch TRANSDERMA DAILY [facility]; Protocol Last Admin: 07/16/22 08:12 Dose: 1 patch Documented By: CLIVE Losartan Potassium (Losartan Potassium 25 Mg Tablet) 25 mg PO DAILY [facility]; Protocol Last Admin: 07/16/22 08:11 Dose: 25 mg Documented By: CLIVE Metoprolol Tartrate (Metoprolol Tartrate 50 Mg Tablet) 150 mg PO BID [facility]; Protocol Last Admin: 07/16/22 08:11 Dose: 150 mg Documented By: CLIVE Ondansetron HCl (Ondansetron Hcl 4 Mg/2 Ml Vial) 4 mg IVPUSH Q8H PRN PRN Reason: Nausea and Vomiting Last Admin: 07/07/22 01:05 Dose: 4 mg Documented By: CASTILCinthya Oxycodone HCl (Oxycodone Hcl Immed Release 5 Mg Tablet) 5 mg PO Q6H PRN PRN Reason: Pain, Moderate (Pain Scale 4-6 Last Admin: 07/16/22 08:09 Dose: 5 mg Documented By: CLIVE Pharmacy Consult (Consult Rx Perform Med Rec) 1 each MISCELLANE ONCE PRN PRN Reason: Consult order Polyethylene Glycol (Polyethylene Glycol 3350 17 Gm Powd.Pack) 17 gm PO DAILY PRN PRN Reason: constipation Last Admin: 06/28/22 22:01 Dose: 17 gm Documented By: ADRIANA Polyethylene Glycol (Polyethylene Glycol 3350 17 Gm Powd.Pack) 17 gm PO DAILY S Last Admin: 07/16/22 08:12 Dose: 17 gm Documented By: CLIVE Sodium Chloride (0.9 % Sodium Chloride Flush 3 Ml Syringe) 3 ml IVFLUSH QSHIFT [facility] Last Admin: 07/16/22 08:12 Dose: Not Given Documented By: CLIVE Non-Admin Reason: No Access Tamsulosin HCl (Tamsulosin Hcl 0.4 Mg Capsule) 0.8 mg PO DAILY [facility] Last Admin: 07/16/22 08:10 Dose: 0.8 mg Documented By: CLIVE Urea (Urea 15 Gm Powder) 30 gm PO DAILY [facility] Last Admin: 07/16/22 08:12 Dose: 30 gm Documented By: CLIVE Vitamin D (Cholecalciferol (Vitamin D3) 25 Mcg Tablet) 50 mcg PO DAILY [facility] Last Admin: 07/16/22 08:10 Dose: 50 mcg Documented By: CLIVE Zinc Acetate/Diphenhydramine (Diphenhydramine Hcl 2 % Cream 28 Gm Tube) 1 appl TOPICAL TID PRN; Protocol PRN Reason: itching Labs CBC & Chem 7: 07/11/22 05:16 07/11/22 05:16 Labs: Laboratory Results - last 24 hr 07/15/22 07/15/22 07/16/22 15:42 20:08 07:24 POC Glucose 245 H 292 H 184 H Assessment and Plan (1) Traumatic subarachnoid hemorrhage: Status: Acute (2) Cerebral contusion: Status: Acute (3) Physical deconditioning: Status: Acute (4) Hyponatremia: Status: Acute Plan 74yo M with DM2, HTN, HLD, chronic venous stasis dermatitis presented with mechanical fall, admitted for hypoxia due to PNA # traumatic SAH - no headache, no dizziness, continue apixaban, was helped for 2 weeks # acute hypoxic respiratory failure due to PNA - finished 10d of ABX, oxygenation stable 94% on room air # urinary retention - failed voiding trial x2, Lemus re-placed 07/11; continue tamsulosin and finasteride added on 07/12 # mechanical fall - difficulty ambulating; awaiting SNF placement # generalized weakness - 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 but not clinically NPH per Neurology # acute/chronic hypoNa - resolved # new-onset AF/RVR - LVEF >70%, seen by Cardiology - rate-controlled on metoprolol tartrate - restarted apixaban 07/10/22 # incidental 1.3cm pancreatic lesions, may reflect adjacent pancreatic cysts - outpt MRI/MRCP # unstageable sacral decubitus ulcer - on 07/08 had debridement of sacral decubitus ulcer, including skin, dermis, subcutaneous tissue and muscle; operative findings of necrotic skin, subcutaneous tissue and muscle. Ulcer measured approximately 10 cm x 10 cm in diameter with a depth of 4 cm = stage 3; Surgery following and wound has exudate; wound care changed to silver alginate to wound base followed by fluff and Allevyn foam bid; may need repeat debridement, General surgery Will follow and plan for debridement. # DM2 - basal/bolus insulin, fluctuating blood sugars will follow closely # HTN - stable blood pressure, continue hydralazine, losartan, and metoprolol # HLD - statin # VTE ppx: SCDs, apixaban In my clinical judgment, the patient requires continued inpatient hospitalization for the following reasons: SNF placement and follow-up with General surgery for repeat debridement Time Spent With Patient Time: Total time managing care of this patient today ____ minutes. Quality Stroke Does the patient have a stroke diagnosis?: No VTE Prior VTE?: No VTE Risk Level:: Medical - moderate - high VTE Device Contraindication: Treatment Not Indicated VTE Drug Contraindication: N/A - Med Ordered
[2022-07-16 11:29] LABS: Glucose, Whole Blood 304 mg/dL (60-115)
--- NOTE | 2022-07-16 12:20 | P.PNGS_ITS ---
Subjective Subjective Date of Service: 07/16/22 Interval history: Sore with dressing changes. No other complaints. Physical Exam Vital Signs: Vital Signs: Last Vital Signs Temp 97.2 F 07/16/22 07:49 Pulse 90 07/16/22 07:49 Resp 16 07/16/22 07:49 BP 124/62 07/16/22 07:49 Pulse Ox 97 07/16/22 07:49 O2 Del Method 07/16/22 07:49 O2 Flow Rate 2 07/08/22 10:02 BMI result Body Mass Index 26.6 Const: General: comfortable and no acute distress Resp: Effort & Inspection: normal respiratory effort Skin: Other: sacral decubitus ulcer with necrotic tissue of entire wound base and surrounding proximal epidermis now necrotic, no drainage, no purulence Objective Data Active Medications Acetaminophen (Acetaminophen 325 Mg Tablet) 650 mg PO Q6H PRN PRN Reason: Pain, Mild (Pain Scale 1-3) Last Admin: 07/12/22 09:39 Dose: 650 mg Documented By: VIKKI Amlodipine Besylate (Amlodipine Besylate 5 Mg Tablet) 5 mg PO DAILY [facility]; Protocol Last Admin: 07/16/22 08:10 Dose: 5 mg Documented By: CLIVE Apixaban (Apixaban 5 Mg Tablet) 5 mg PO BID [facility] Last Admin: 07/16/22 08:11 Dose: 5 mg Documented By: CLIVE Dextrose (Dextrose 50 % 25 Gm/50 Ml Syringe) 25 gm IVPUSH Q15M PRN; Protocol PRN Reason: per Hypoglycemia Standing Ord. Docusate Sodium (Docusate Sodium 100 Mg Capsule) 100 mg PO BID [facility] Last Admin: 07/16/22 08:10 Dose: 100 mg Documented By: CLIVE Finasteride (Finasteride 5 Mg Tablet) 5 mg PO DAILY [facility] Last Admin: 07/16/22 08:10 Dose: 5 mg Documented By: CLIVE Glucose (Glucose Gel 15 Gm Gel..Gram.) 15 gm PO Q15M PRN; Protocol PRN Reason: per Hypoglycemia Standing Ord. Insulin Glargine (Insulin Glargine,Hum.Rec.Anlog 100 Unit/Ml 10 Ml Vial) 20 unit SUBCUT DAILY@0730 [facility] Last Admin: 07/16/22 08:09 Dose: 20 unit Documented By: CLIVE Insulin Glargine (Insulin Glargine,Hum.Rec.Anlog 100 Unit/Ml 10 Ml Vial) 5 unit SUBCUT BEDTIME [facility] Last Admin: 07/15/22 20:14 Dose: 5 unit Documented By: ADRIANA Insulin Human Lispro (Insulin Lispro 100 Unit/Ml 3 Ml Vial) 0 unit SUBCUT QIDACHS [facility]; Protocol Last Admin: 07/16/22 08:09 Dose: 2 unit Documented By: CLIVE Lidocaine (Lidocaine 4 % Patch Adh..Patch) 1 patch TRANSDERMA DAILY [facility]ICOLE; Pro tocol Last Admin: 07/16/22 08:12 Dose: 1 patch Documented By: CLIVE Losartan Potassium (Losartan Potassium 25 Mg Tablet) 25 mg PO DAILY [facility]; Protocol Last Admin: 07/16/22 08:11 Dose: 25 mg Documented By: CLIVE Metoprolol Tartrate (Metoprolol Tartrate 50 Mg Tablet) 150 mg PO BID [facility]; Protocol Last Admin: 07/16/22 08:11 Dose: 150 mg Documented By: CLIVE Ondansetron HCl (Ondansetron Hcl 4 Mg/2 Ml Vial) 4 mg IVPUSH Q8H PRN PRN Reason: Nausea and Vomiting Last Admin: 07/07/22 01:05 Dose: 4 mg Documented By: MARIANN Oxycodone HCl (Oxycodone Hcl Immed Release 5 Mg Tablet) 5 mg PO Q6H PRN PRN Reason: Pain, Moderate (Pain Scale 4-6 Last Admin: 07/16/22 08:09 Dose: 5 mg Documented By: CLIVE Pharmacy Consult (Consult Rx Perform Med Rec) 1 each MISCELLANE ONCE PRN PRN Reason: Consult order Polyethylene Glycol (Polyethylene Glycol 3350 17 Gm Powd.Pack) 17 gm PO DAILY PRN PRN Reason: constipation Last Admin: 06/28/22 22:01 Dose: 17 gm Documented By: ADRIANA Polyethylene Glycol (Polyethylene Glycol 3350 17 Gm Powd.Pack) 17 gm PO DAILY [facility] Last Admin: 07/16/22 08:12 Dose: 17 gm Documented By: CLIVE Sodium Chloride (0.9 % Sodium Chloride Flush 3 Ml Syringe) 3 ml IVFLUSH QSHIFT [facility] Last Admin: 07/16/22 08:12 Dose: Not Given Documented By: CLIVE Non-Admin Reason: No Access Tamsulosin HCl (Tamsulosin Hcl 0.4 Mg Capsule) 0.8 mg PO DAILY [facility] Last Admin: 07/16/22 08:10 Dose: 0.8 mg Documented By: CLIVE Urea (Urea 15 Gm Powder) 30 gm PO DAILY [facility] Last Admin: 07/16/22 08:12 Dose: 30 gm Documented By: CLIVE Vitamin D (Cholecalciferol (Vitamin D3) 25 Mcg Tablet) 50 mcg PO DAILY [facility] Last Admin: 07/16/22 08:10 Dose: 50 mcg Documented By: CLIVE Zinc Acetate/Diphenhydramine (Diphenhydramine Hcl 2 % Cream 28 Gm Tube) 1 appl TOPICAL TID PRN; Protocol PRN Reason: itching Labs CBC & Chem 7: 07/11/22 05:16 07/11/22 05:16 Labs: Laboratory Results - last 24 hr 07/15/22 07/15/22 07/16/22 15:42 20:08 07:24 POC Glucose 245 H 292 H 184 H 07/16/22 11:16 POC Glucose 304 H Procedures Date of Service Date of Service: 07/16/22 Progress Note: A&P Assessment and plan (1) Decubitus ulcer of sacral region, stage 3: Status: Acute Plan 81 year old male admitted for hypoxia and respiratory failure following a fall found to have a sacral decubitus ulcer with necrotic skin requiring debridement in the OR. Stage 3 decubitus ulcer- dressing changed from wet to dry packing to silver alginate last week, now with necrotic tissue covering entire wound. Will require another debridement in OR, possible wound vac placement if clean. Will add onto schedule for tomorrow. Continue frequent repositioning, air loss bed, nutritional support. Time Spent With Patient Time: Total time managing care of this patient today ____ minutes. Quality Stroke Does the patient have a stroke diagnosis?: No VTE Prior VTE?: No VTE Risk Level:: Medical - moderate - high VTE Device Contraindication: Treatment Not Indicated VTE Drug Contraindication: N/A - Med Ordered
[2022-07-16 16:00] VITALS: BP 137/61; PULSE 98; RESP 18; TEMP 36.7; O2SAT 98
[2022-07-16 16:28] LABS: Glucose, Whole Blood 261 mg/dL (60-115)
[2022-07-16] MEDS: Acetaminophen 325 MG TABLET 650 MG PO (19:07)
[2022-07-16 19:22] LABS: Glucose, Whole Blood 275 mg/dL (60-115)
[2022-07-16 19:29] VITALS: TEMP 38.2
[2022-07-16] MEDS: Insulin Glargine,Hum.rec.anlog 100 UNIT/ML 10 ML VIAL SUBCUT (21:34)
[2022-07-17] VITALS (20 sets, daily range): BP systolic 100–135; BP diastolic 37–93; PULSE 67–163; RESP 15–21; TEMP 36.1–37.1; O2SAT 93–98
[2022-07-17 07:33] LABS: Glucose, Whole Blood 140 mg/dL (60-115)
--- NOTE | 2022-07-17 08:19 | P.PNGS_ITS ---
Subjective Subjective Date of Service: 07/17/22 Interval history: Patient reports diffuse body aches but especially in the back. He is hungry and is anxious to have some food Physical Exam Vital Signs: Vital Signs: Last Vital Signs Temp 98.2 F 07/17/22 07:25 Pulse 90 07/17/22 07:25 Resp 18 07/17/22 07:25 BP 118/56 L 07/17/22 07:25 Pulse Ox 98 07/17/22 07:25 O2 Del Method 07/17/22 07:25 O2 Flow Rate 2 07/08/22 10:02 BMI result Body Mass Index 26.6 Const: General: no acute distress Nutritional Appearance: well nourished Orientation/consciousness: patient oriented x3 Limitations: physical limitations Resp: Other: Breathing comfortably on room air, no respiratory distress Back/Spine/Pelvis: Other: Necrotic changes decubitus ulcer requiring further debridement. Skin: Other: Warm, dry Neuro: General: patient oriented x3 Objective Data Active Medications Acetaminophen (Acetaminophen 325 Mg Tablet) 650 mg PO Q6H PRN PRN Reason: Pain, Mild (Pain Scale 1-3) Last Admin: 07/16/22 19:07 Dose: 650 mg Documented By: RIC Amlodipine Besylate (Amlodipine Besylate 5 Mg Tablet) 5 mg PO DAILY [facility]; Protocol Last Admin: 07/16/22 08:10 Dose: 5 mg Documented By: CLIVE Apixaban (Apixaban 5 Mg Tablet) 5 mg PO BID [facility] Last Admin: 07/16/22 21:34 Dose: 5 mg Documented By: RIC Dextrose (Dextrose 50 % 25 Gm/50 Ml Syringe) 25 gm IVPUSH Q15M PRN; Protocol PRN Reason: per Hypoglycemia Standing Ord. Docusate Sodium (Docusate Sodium 100 Mg Capsule) 100 mg PO BID [facility] Last Admin: 07/16/22 21:35 Dose: 100 mg Documented By: RIC Finasteride (Finasteride 5 Mg Tablet) 5 mg PO DAILY [facility] Last Admin: 07/16/22 08:10 Dose: 5 mg Documented By: CLIVE Glucose (Glucose Gel 15 Gm Gel..Gram.) 15 gm PO Q15M PRN; Protocol PRN Reason: per Hypoglycemia Standing Ord. Insulin Glargine (Insulin Glargine,Hum.Rec.Anlog 100 Unit/Ml 10 Ml Vial) 20 unit SUBCUT DAILY@0730 [facility] Last Admin: 07/16/22 08:09 Dose: 20 unit Documented By: CLIVE Insulin Glargine (Insulin Glargine,Hum.Rec.Anlog 100 Unit/Ml 10 Ml Vial) 5 unit SUBCUT BEDTIME [facility] Last Admin: 07/16/22 21:34 Dose: 5 unit Documented By: RIC Insulin Human Lispro (Insulin Lispro 100 Unit/Ml 3 Ml Vial) 0 unit SUBCUT QIDACHS [facility]; Protocol Last Admin: 07/16/22 21:34 Dose: 6 unit Documented By: RIC Lidocaine (Lidocaine 4 % Patch Adh..Patch) 1 patch TRANSDERMA DAILY [facility]; Protocol Last Admin: 07/16/22 08:12 Dose: 1 patch Documented By: CLIVE Losartan Potassium (Losartan Potassium 25 Mg Tablet) 25 mg PO DAILY [facility]; Protocol Last Admin: 07/16/22 08:11 Dose: 25 mg Documented By: CLIVE Metoprolol Tartrate (Metoprolol Tartrate 50 Mg Tablet) 150 mg PO BID [facility]; Protocol Last Admin: 07/16/22 21:34 Dose: 150 mg Documented By: RIC Ondansetron HCl (Ondansetron Hcl 4 Mg/2 Ml Vial) 4 mg IVPUSH Q8H PRN PRN Reason: Nausea and Vomiting Last Admin: 07/07/22 01:05 Dose: 4 mg Documented By: CASTJOSE Oxycodone HCl (Oxycodone Hcl Immed Release 5 Mg Tablet) 5 mg PO Q6H PRN PRN Reason: Pain, Moderate (Pain Scale 4-6 Last Admin: 07/16/22 19:07 Dose: 5 mg Documented By: RIC Pharmacy Consult (Consult Rx Perform Med Rec) 1 each MISCELLANE ONCE PRN PRN Reason: Consult order Polyethylene Glycol (Polyethylene Glycol 3350 17 Gm Powd.Pack) 17 gm PO DAILY PRN PRN Reason: constipation Last Admin: 06/28/22 22:01 Dose: 17 gm Documented By: ADRIANA Polyethylene Glycol (Polyethylene Glycol 3350 17 Gm Powd.Pack) 17 gm PO DAILY [facility] Last Admin: 07/16/22 08:12 Dose: 17 gm Documented By: CLIVE Sodium Chloride (0.9 % Sodium Chloride Flush 3 Ml Syringe) 3 ml IVFLUSH QSHIFT [facility] Last Admin: 07/17/22 00:29 Dose: Not Given Documented By: ASHANTI Non-Admin Reason: No Access Tamsulosin HCl (Tamsulosin Hcl 0.4 Mg Capsule) 0.8 mg PO DAILY [facility] Last Admin: 07/16/22 08:10 Dose: 0.8 mg Documented By: CLIVE Urea (Urea 15 Gm Powder) 30 gm PO DAILY [facility] Last Admin: 07/16/22 08:12 Dose: 30 gm Documented By: CLIVE Vitamin D (Cholecalciferol (Vitamin D3) 25 Mcg Tablet) 50 mcg PO DAILY [facility] Last Admin: 07/16/22 08:10 Dose: 50 mcg Documented By: CLIVE Zinc Acetate/Diphenhydramine (Diphenhydramine Hcl 2 % Cream 28 Gm Tube) 1 appl TOPICAL TID PRN; Protocol PRN Reason: itching Labs CBC & Chem 7: 07/11/22 05:16 07/11/22 05:16 Labs: Laboratory Results - last 24 hr 07/16/22 07/16/22 07/16/22 11:16 16:18 19:09 POC Glucose 304 H 261 H 275 H 07/17/22 07:29 POC Glucose 140 H Procedures Date of Service Date of Service: 07/17/22 Progress Note: A&P Assessment and plan (1) Decubitus ulcer of sacral region, stage 3: Status: Acute Plan Patient presents with increased necrosis at the sacral decubitus requiring further debridement. I discussed the procedure, risks, and alternatives in detail today and the patient consents to the surgery. He has been added onto the operative schedule for today. Time Spent With Patient Time: Total time managing care of this patient today ____ minutes. Quality Stroke Does the patient have a stroke diagnosis?: No VTE Prior VTE?: No VTE Risk Level:: Medical - moderate - high VTE Device Contraindication: Treatment Not Indicated VTE Drug Contraindication: N/A - Med Ordered
--- NOTE | 2022-07-17 08:44 | MHC.CM.PN ---
EMR REVIEWED, PER SURGICAL NOTE PT TO BE PLACED ON OR SCHEDULE FOR SURGICAL DEBRIDEMENT, CM AWAITING UPDATE FROM FS ON STATUS OF [facility]TC [facility], CM WILL CONT TO FOLLOW.
[2022-07-17 11:37] LABS: Glucose, Whole Blood 147 mg/dL (60-115)
--- NOTE | 2022-07-17 12:09 | P.CONAN_ITS ---
Documented by User: Gonzalo Michelle MD 07/25/22 07:11 HPI - Anesthesia Eval Consult details Narrative: debridement and wound vac PMFSH Past Medical History Medical History (Updated 07/24/22 @ 20:48 by WENDIE Elaine) CAD (coronary artery disease) Diabetes mellitus with coincident hypertension Hyperlipidemia Hypertension Incomplete bladder emptying Family History Family History Mother Stroke Cancer Father No problems noted. Surgical History Surgical History H/O heart surgery Status post debridement Social History Social History Household Members: None Housing: House Do you presently have visiting nurse or other home services: No Alcohol intake: never Patient Tobacco Use Status: Former Tobacco user Tobacco use type: Cigarette Smoked in Last 30 Days: No e-Cigarette/Vaping Use: Never Used Second Hand Smoke Exposure: No Use of substances other than those prescribed or required for medical reasons: No Currently Displaying Signs/Symptoms of Drug Intoxication Withdrawal: No Have you been hit, kicked, punched, or otherwise hurt by someone within the past year? If so, by whom?: No Do you feel safe in your current relationship?: No Current Relationship Is there a partner from a previous relationship who is making you feel unsafe now?: No Are you made to feel afraid or neglected: No Are you DNR?: No Advance Directives: No Advance Directives Information Provided: No Advance Directives on File: No Do you have thoughts of harming others: None Do you have a plan to hurt others: No Plan Recently lost weight without trying: No How much weight loss: Not applicable Eating poorly because of decreased appetite: No Nutrition screen score: 0 Poor oral hygiene: Yes (multiple missing teeth, dentures) service: No Current occupational status: retired Cognitive needs: Yes (walker) Hearing needs: No Vision needs: Yes (glasses) Meds Allergies Allergy/AdvReac Type Severity Reaction Status Date / Time Owtgcmg-IYW-TlE Reductase Allergy Mild Burning Verified 07/24/22 20:42 Inhibitor sensation [Eviodry-Ind-Hah Reductase Inhibitor] Home Medications Medication Instructions Recorded Confirmed Last Taken Type insulin human U-100 NPH-regulr 40 unit subcut DAILY@1300 06/14/22 06/14/22 Unknown History 70-30 mix 100 unit/mL subcutaneous susp insulin human U-100 NPH-regulr 60 unit subcut DAILY 06/14/22 06/14/22 Unknown History 70-30 mix 100 unit/mL subcutaneous susp Documented by User: Lupillo Kiser MD 07/22/22 07:44 [facility] Past Medical History Medical History (Updated 07/24/22 @ 20:48 by WENDIE Elaine) CAD (coronary artery disease) Diabetes mellitus with coincident hypertension Hyperlipidemia Hypertension Incomplete bladder emptying Family History Family History Mother Stroke Cancer Father No problems noted. Surgical History Surgical History H/O heart surgery Status post debridement Social History Social History Household Members: None Housing: House Do you presently have visiting nurse or other home services: No Alcohol intake: never Patient Tobacco Use Status: Former Tobacco user Tobacco use type: Cigarette Smoked in Last 30 Days: No e-Cigarette/Vaping Use: Never Used Second Hand Smoke Exposure: No Use of substances other than those prescribed or required for medical reasons: No Currently Displaying Signs/Symptoms of Drug Intoxication Withdrawal: No Have you been hit, kicked, punched, or otherwise hurt by someone within the past year? If so, by whom?: No Do you feel safe in your current relationship?: No Current Relationship Is there a partner from a previous relationship who is making you feel unsafe now?: No Are you made to feel afraid or neglected: No Are you DNR?: No Advance Directives: No Advance Directives Information Provided: No Advance Directives on File: No Do you have thoughts of harming others: None Do you have a plan to hurt others: No Plan Recently lost weight without trying: No How much weight loss: Not applicable Eating poorly because of decreased appetite: No Nutrition screen score: 0 Poor oral hygiene: Yes (multiple missing teeth, dentures) service: No Current occupational status: retired Cognitive needs: Yes (walker) Hearing needs: No Vision needs: Yes (glasses) Meds Allergies Allergy/AdvReac Type Severity Reaction Status Date / Time Cexpdsq-EIH-SsF Reductase Allergy Mild Burning Verified 07/24/22 20:42 Inhibitor sensation [Ruzfwid-Doe-Qxs Reductase Inhibitor] Home Medications Medication Instructions Recorded Confirmed Last Taken Type insulin human U-100 NPH-regulr 40 unit subcut DAILY@1300 06/14/22 06/14/22 Unknown History 70-30 mix 100 unit/mL subcutaneous susp insulin human U-100 NPH-regulr 60 unit subcut DAILY 06/14/22 06/14/22 Unknown History 70-30 mix 100 unit/mL subcutaneous susp Exam Airway Mallampati Class: II TM Dist: >3cm Neck ROM: Full Loose/Missing/Broken Teeth: Yes Heart: [id number] Lungs: decrease breath sounds bilaterally Assessment and Plan Final Anesthetic Review NPO: Yes ASA Class: IV Final Preanesthetic Review: No Changes in Pt Med Stat, Meds/Allgs Chart Reviewed, Consent Obtained/Reviewed and Anes Risks/Benef Reviewed Patient Risk: High Procedure Risk: Intermediate Assessment/Block/Sedation in SS: Assess/Block/Sedation-SS Anesthetic Plan Anesthetic Plan: GA and Agree w/ Assess. and Plan Disposition: Standard PACU Documented by User: Karen Pro MD [facility] Active Problems Active Problems: All Active Problems (Updated 07/11/22 @ 07:48 by Brayan Ho MD) Decubitus ulcer of sacral region, stage 3 (Acute) Status post excisional debridement (Acute) Traumatic subarachnoid hemorrhage (Acute) Cerebral contusion (Acute) Encephalopathy (Acute) Physical deconditioning (Acute) Hyponatremia (Acute) Atrial fibrillation (Acute) CAD (coronary artery disease) (Acute) Acute respiratory failure with hypoxia (Acute) Cellulitis of right lower extremity (Acute) Fall (Acute) Dizziness (Acute) Weakness (Acute) Back pain (Acute) Physical exam (Acute) Hyperlipidemia (Acute) Diabetes mellitus with coincident hypertension (Acute) Encounter for annual wellness visit (AWV) in Medicare patient (Acute) Hypertension (Acute) Past Medical History Medical History (Updated 07/24/22 @ 20:48 by WENDIE Elaine) CAD (coronary artery disease) Diabetes mellitus with coincident hypertension Hyperlipidemia Hypertension Incomplete bladder emptying Family History Family History Mother Stroke Cancer Father No problems noted. Family history of problems with anesthesia: No Surgical History Surgical History H/O heart surgery Status post debridement History of Problems with Anesthesia: No Social History Social History Household Members: None Housing: House Do you presently have visiting nurse or other home services: No Alcohol intake: never Patient Tobacco Use Status: Former Tobacco user Tobacco use type: Cigarette Smoked in Last 30 Days: No e-Cigarette/Vaping Use: Never Used Second Hand Smoke Exposure: No Use of substances other than those prescribed or required for medical reasons: No Currently Displaying Signs/Symptoms of Drug Intoxication Withdrawal: No Have you been hit, kicked, punched, or otherwise hurt by someone within the past year? If so, by whom?: No Do you feel safe in your current relationship?: No Current Relationship Is there a partner from a previous relationship who is making you feel unsafe now?: No Are you made to feel afraid or neglected: No Are you DNR?: No Advance Directives: No Advance Directives Information Provided: No Advance Directives on File: No Do you have thoughts of harming others: None Do you have a plan to hurt others: No Plan Recently lost weight without trying: No How much weight loss: Not applicable Eating poorly because of decreased appetite: No Nutrition screen score: 0 Poor oral hygiene: Yes (multiple missing teeth, dentures) service: No Current occupational status: retired Cognitive needs: Yes (walker) Hearing needs: No Vision needs: Yes (glasses) Meds Allergies Allergy/AdvReac Type Severity Reaction Status Date / Time Mnlkiuu-GXW-LwG Reductase Allergy Mild Burning Verified 07/24/22 20:42 Inhibitor sensation [Vnatavk-Tah-Cda Reductase Inhibitor] Active Medications: Current Medications Acetaminophen (Acetaminophen 325 Mg Tablet) 650 mg PO Q6H PRN PRN Reason: Pain, Mild (Pain Scale 1-3) Last Admin: 07/16/22 19:07 Dose: 650 mg Amlodipine Besylate (Amlodipine Besylate 5 Mg Tablet) 5 mg PO DAILY [facility]; Pr otocol Last Admin: 07/16/22 08:10 Dose: 5 mg Apixaban (Apixaban 5 Mg Tablet) 5 mg PO BID [facility] Last Admin: 07/16/22 21:34 Dose: 5 mg Dextrose (Dextrose 50 % 25 Gm/50 Ml Syringe) 25 gm IVPUSH Q15M PRN; Protocol PRN Reason: per Hypoglycemia Standing Ord. Docusate Sodium (Docusate Sodium 100 Mg Capsule) 100 mg PO BID [facility] Last Admin: 07/16/22 21:35 Dose: 100 mg Finasteride (Finasteride 5 Mg Tablet) 5 mg PO DAILY [facility] Last Admin: 07/16/22 08:10 Dose: 5 mg Glucose (Glucose Gel 15 Gm Gel..Gram.) 15 gm PO Q15M PRN; Protocol PRN Reason: per Hypoglycemia Standing Ord. Insulin Glargine (Insulin Glargine,Hum.Rec.Anlog 100 Unit/Ml 10 Ml Vial) 20 unit SUBCUT DAILY@0730 [facility] Last Admin: 07/17/22 08:32 Dose: Not Given Insulin Glargine (Insulin Glargine,Hum.Rec.Anlog 100 Unit/Ml 10 Ml Vial) 5 unit SUBCUT BEDTIME [facility] Last Admin: 07/16/22 21:34 Dose: 5 unit Insulin Human Lispro (Insulin Lispro 100 Unit/Ml 3 Ml Vial) 0 unit SUBCUT QIDACHS [facility]; Protocol Last Admin: 07/17/22 08:32 Dose: Not Given Lidocaine (Lidocaine 4 % Patch Adh..Patch) 1 patch TRANSDERMA DAILY [facility]; Pro tocol Last Admin: 07/16/22 08:12 Dose: 1 patch Losartan Potassium (Losartan Potassium 25 Mg Tablet) 25 mg PO DAILY [facility]; Protocol Last Admin: 07/16/22 08:11 Dose: 25 mg Metoprolol Tartrate (Metoprolol Tartrate 50 Mg Tablet) 150 mg PO BID [facility]; Protocol Last Admin: 07/16/22 21:34 Dose: 150 mg Ondansetron HCl (Ondansetron Hcl 4 Mg/2 Ml Vial) 4 mg IVPUSH Q8H PRN PRN Reason: Nausea and Vomiting Last Admin: 07/07/22 01:05 Dose: 4 mg Oxycodone HCl (Oxycodone Hcl Immed Release 5 Mg Tablet) 5 mg PO Q6H PRN PRN Reason: Pain, Moderate (Pain Scale 4-6 Last Admin: 07/16/22 19:07 Dose: 5 mg Pharmacy Consult (Consult Rx Perform Med Rec) 1 each MISCELLANE ONCE PRN PRN Reason: Consult order Polyethylene Glycol (Polyethylene Glycol 3350 17 Gm Powd.Pack) 17 gm PO DAILY PRN PRN Reason: constipation Last Admin: 06/28/22 22:01 Dose: 17 gm Polyethylene Glycol (Polyethylene Glycol 3350 17 Gm Powd.Pack) 17 gm PO DAILY [facility] Last Admin: 07/16/22 08:12 Dose: 17 gm Sodium Chloride (0.9 % Sodium Chloride Flush 3 Ml Syringe) [facility] Last Admin: 07/17/22 00:29 Dose: Not Given Tamsulosin HCl (Tamsulosin Hcl 0.4 Mg Capsule) 0.8 mg PO DAILY [facility] Last Admin: 07/16/22 08:10 Dose: 0.8 mg Urea (Urea 15 Gm Powder) 30 gm PO DAILY [facility] Last Admin: 07/16/22 08:12 Dose: 30 gm Vitamin D (Cholecalciferol (Vitamin D3) 25 Mcg Tablet) 50 mcg PO DAILY [facility] Last Admin: 07/16/22 08:10 Dose: 50 mcg Zinc Acetate/Diphenhydramine (Diphenhydramine Hcl 2 % Cream 28 Gm Tube) 1 appl TOPICAL TID PRN; Protocol PRN Reason: itching Home Medications Medication Instructions Recorded Confirmed Last Taken Type insulin human U-100 NPH-regulr 40 unit subcut DAILY@1300 06/14/22 06/14/22 Unknown History 70-30 mix 100 unit/mL subcutaneous susp insulin human U-100 NPH-regulr 60 unit subcut DAILY 06/14/22 06/14/22 Unknown History 70-30 mix 100 unit/mL subcutaneous susp Exam Exam Date and Time: July 17, 2022 1209 Height,Weight and Vital Signs: Height 5 ft 9 in Weight 81.648 kg Last Vital Signs Temp 98.8 F 07/17/22 11:26 Pulse 118 H 07/17/22 11:26 Resp 18 07/17/22 11:26 BP 135/45 L 07/17/22 11:26 Pulse Ox 95 07/17/22 11:26 O2 Del Method 07/17/22 11:26 O2 Flow Rate 2 07/08/22 10:02 Pertinent Lab Results Pertinent Lab Results: Laboratory Tests 06/13/22 06/13/22 06/13/22 16:40 16:40 16:40 WBC 8.7 RBC 4.56 L Hgb 12.7 L Hct 38.7 L MCV 84.9 MCH 27.9 MCHC 32.8 RDW 14.4 Plt Count 143 L MPV 10.5 Immature Gran % (Auto) 0.3 Neut % (Auto) 75.5 H Lymph % (Auto) 18.0 L [place] % (Auto) 5.4 Eos % (Auto) 0.5 Baso % (Auto) 0.3 Lymph # (Auto) 1.6 [place] # (Auto) 0.5 Eos # (Auto) 0.0 Baso # (Auto) 0.0 Abs Immat Gran (auto) 0.03 Absolute Neuts (auto) 6.5 Absolute Nucleated RBC 0.000 Nucleated RBC % (auto) 0.0 PT 14.6 H INR 1.3 H D-Dimer High Sensitivty Sodium Potassium Chloride Carbon Dioxide Anion Gap BUN Creatinine Estim Creat Clear Calc Estimated GFR POC Glucose Random Glucose Fasting Glucose Osmolality Calcium Magnesium Total Bilirubin AST ALT Alkaline Phosphatase Total Creatine Kinase Troponin I High Sens B-Natriuretic Peptide Total Protein Albumin TSH Free Cortisol Urine Color Urine Appearance Urine pH Ur Specific [place] Urine Protein Urine Glucose (UA) Urine Ketones Urine Blood Urine Nitrite Ur Leukocyte Esterase Urine RBC Urine WBC Ur Squamous Epith Cells Urine Bacteria Hyaline Casts Urine Osmolality U Random Total Protein Ur Random Sodium Urine Creatinine Urine Microalbumin Microalb/Creat Ratio C. difficile Tox B Gene COVID-19 ([facility]OS[facility]) Negative COVID-19 Clin Com See Note Influenza Type A (PCR) Influenza Type B (PCR) RSV RNA Qual (PCR) SARS-CoV-2 RNA (RT-PCR) 11/05/2506/13/22 06/13/22 16:40 16:40 17:36 WBC RBC Hgb Hct MCV MCH MCHC RDW Plt Count MPV Immature Gran % (Auto) Neut % (Auto) Lymph % (Auto) [place] % (Auto) Eos % (Auto) Baso % (Auto) Lymph # (Auto) [place] # (Auto) Eos # (Auto) Baso # (Auto) Abs Immat Gran (auto) Absolute Neuts (auto) Absolute Nucleated RBC Nucleated RBC % (auto) PT INR D-Dimer High Sensitivty Sodium 140 Potassium 4.4 Chloride 103 Carbon Dioxide 23 Anion Gap 18 BUN 15 Creatinine 0.69 Estim Creat Clear Calc 86.8 Estimated GFR > 60 POC Glucose Random Glucose 191 H Fasting Glucose Osmolality Calcium 9.1 Magnesium 1.4 L* Total Bilirubin 0.7 AST 25 ALT 19 Alkaline Phosphatase 51 Total Creatine Kinase 224 H Troponin I High Sens 14.8 B-Natriuretic Peptide 175 H Total Protein 7.1 Albumin 4.3 TSH Free Cortisol Urine Color Urine Appearance Urine pH Ur Specific [place] Urine Protein Urine Glucose (UA) Urine Ketones Urine Blood Urine Nitrite Ur Leukocyte Esterase Urine RBC Urine WBC Ur Squamous Epith Cells Urine Bacteria Hyaline Casts Urine Osmolality U Random Total Protein Ur Random Sodium Urine Creatinine Urine Microalbumin Microalb/Creat Ratio C. difficile Tox B Gene COVID-19 (JOSH) COVID-19 Clin Com Influenza Type A (PCR) Influenza Type B (PCR) RSV RNA Qual (PCR) SARS-CoV-2 RNA (RT-PCR) 06/13/22 06/13/22 06/13/22 19:53 21:19 21:19 WBC RBC Hgb Hct MCV MCH MCHC RDW Plt Count MPV Immature Gran % (Auto) Neut % (Auto) Lymph % (Auto) [place] % (Auto) Eos % (Auto) Baso % (Auto) Lymph # (Auto) [place] # (Auto) Eos # (Auto) Baso # (Auto) Abs Immat Gran (auto) Absolute Neuts (auto) Absolute Nucleated RBC Nucleated RBC % (auto) PT INR D-Dimer High Sensitivty Sodium 139 Potassium 4.1 Chloride 102 Carbon Dioxide 25 Anion Gap 16 BUN 13 Creatinine 0.65 Estim Creat Clear Calc 92.1 Estimated GFR > 60 POC Glucose Random Glucose 165 H Fasting Glucose Osmolality Calcium 8.6 Magnesium 1.6 Total Bilirubin AST ALT Alkaline Phosphatase Total Creatine Kinase Troponin I High Sens 16.7 B-Natriuretic Peptide Total Protein Albumin TSH Free Cortisol Urine Color Yellow Urine Appearance Clear Urine pH 7.0 Ur Specific [place] >= 1.030 H Urine Protein 300 (3+) H Urine Glucose (UA) 500 H Urine Ketones Trace Urine Blood Trace H Urine Nitrite Negative Ur Leukocyte Esterase Negative Urine RBC 3-5 H Urine WBC 0-5 Ur Squamous Epith Cells 0-2 Urine Bacteria None Seen Hyaline Casts 0-2 Urine Osmolality U Random Total Protein Ur Random Sodium Urine Creatinine Urine Microalbumin Microalb/Creat Ratio C. difficile Tox B Gene COVID-19 (JOSH) COVID-19 Clin Com Influenza Type A (PCR) Influenza Type B (PCR) RSV RNA Qual (PCR) SARS-CoV-2 RNA (RT-PCR) 06/14/22 06/14/22 06/15/22 14:28 20:44 06:59 WBC RBC Hgb Hct MCV MCH MCHC RDW Plt Count MPV Immature Gran % (Auto) Neut % (Auto) Lymph % (Auto) [place] % (Auto) Eos % (Auto) Baso % (Auto) Lymph # (Auto) [place] # (Auto) Eos # (Auto) Baso # (Auto) Abs Immat Gran (auto) Absolute Neuts (auto) Absolute Nucleated RBC Nucleated RBC % (auto) PT INR D-Dimer High Sensitivty Sodium Potassium Chloride Carbon Dioxide Anion Gap BUN Creatinine Estim Creat Clear Calc Estimated GFR POC Glucose 278 H 290 H 224 H Random Glucose Fasting Glucose Osmolality Calcium Magnesium Total Bilirubin AST ALT Alkaline Phosphatase Total Creatine Kinase Troponin I High Sens B-Natriuretic Peptide Total Protein Albumin TSH Free Cortisol Urine Color Urine Appearance Urine pH Ur Specific [place] Urine Protein Urine Glucose (UA) Urine Ketones Urine Blood Urine Nitrite Ur Leukocyte Esterase Urine RBC Urine WBC Ur Squamous Epith Cells Urine Bacteria Hyaline Casts Urine Osmolality U Random Total Protein Ur Random Sodium Urine Creatinine Urine Microalbumin Microalb/Creat Ratio C. difficile Tox B Gene COVID-19 (JOSH) COVID-19 Clin Com Influenza Type A (PCR) Influenza Type B (PCR) RSV RNA Qual (PCR) SARS-CoV-2 RNA (RT-PCR) 06/15/22 06/15/22 06/15/22 09:38 11:27 11:28 WBC 15.4 H RBC 5.07 Hgb 14.0 Hct 41.4 L MCV 81.7 MCH 27.6 MCHC 33.8 RDW 14.8 Plt Count 141 L MPV 11.4 Immature Gran % (Auto) 0.8 H Neut % (Auto) 84.9 H Lymph % (Auto) 7.2 L [place] % (Auto) 6.6 Eos % (Auto) 0.3 Baso % (Auto) 0.2 Lymph # (Auto) 1.1 L [place] # (Auto) 1.0 Eos # (Auto) 0.0 Baso # (Auto) 0.0 Abs Immat Gran (auto) 0.12 H Absolute Neuts (auto) 13.0 H Absolute Nucleated RBC 0.000 Nucleated RBC % (auto) 0.0 PT INR D-Dimer High Sensitivty Sodium 134 L Potassium 4.7 Chloride 97 Carbon Dioxide 20 L Anion Gap 22 H BUN 12 Creatinine 0.74 Estim Creat Clear Calc 80.9 Estimated GFR > 60 POC Glucose Random Glucose 215 H Fasting Glucose Osmolality Calcium 8.8 Magnesium Total Bilirubin AST ALT Alkaline Phosphatase Total Creatine Kinase Troponin I High Sens B-Natriuretic Peptide Total Protein Albumin TSH Free Cortisol Urine Color Urine Appearance Urine pH Ur Specific [place] Urine Protein Urine Glucose (UA) Urine Ketones Urine Blood Urine Nitrite Ur Leukocyte Esterase Urine RBC Urine WBC Ur Squamous Epith Cells Urine Bacteria Hyaline Casts Urine Osmolality U Random Total Protein Ur Random Sodium Urine Creatinine Urine Microalbumin Microalb/Creat Ratio C. difficile Tox B Gene COVID-19 (JOS[facility]) COVID-19 Clin Com Influenza Type A (PCR) NEGATIVE Influenza Type B (PCR) NEGATIVE RSV RNA Qual (PCR) NEGATIVE SARS-CoV-2 RNA (RT-PCR) NEGATIVE 06/15/22 06/15/22 06/15/22 13:56 14:48 15:00 WBC RBC Hgb Hct MCV MCH MCHC RDW Plt Count MPV Immature Gran % (Auto) Neut % (Auto) Lymph % (Auto) [place] % (Auto) Eos % (Auto) Baso % (Auto) Lymph # (Auto) [place] # (Auto) Eos # (Auto) Baso # (Auto) Abs Immat Gran (auto) Absolute Neuts (auto) Absolute Nucleated RBC Nucleated RBC % (auto) PT INR D-Dimer High Sensitivty 1116 Sodium Potassium Chloride Carbon Dioxide Anion Gap BUN Creatinine Estim Creat Clear Calc Estimated GFR POC Glucose 156 H 113 Random Glucose Fasting Glucose Osmolality Calcium Magnesium Total Bilirubin AST ALT Alkaline Phosphatase Total Creatine Kinase Troponin I High Sens B-Natriuretic Peptide Total Protein Albumin TSH Free Cortisol Urine Color Urine Appearance Urine pH Ur Specific [place] Urine Protein Urine Glucose (UA) Urine Ketones Urine Blood Urine Nitrite Ur Leukocyte Esterase Urine RBC Urine WBC Ur Squamous Epith Cells Urine Bacteria Hyaline Casts Urine Osmolality U Random Total Protein Ur Random Sodium Urine Creatinine Urine Microalbumin Microalb/Creat Ratio C. difficile Tox B Gene COVID-19 (JOSH) COVID-19 Clin Com Influenza Type A (PCR) Influenza Type B (PCR) RSV RNA Qual (PCR) SARS-CoV-2 RNA (RT-PCR) 06/15/22 06/15/22 06/16/22 16:30 19:40 05:40 WBC 11.1 H RBC 4.63 Hgb 12.6 L Hct 38.5 L MCV 83.2 MCH 27.2 MCHC 32.7 RDW 14.7 Plt Count 140 L MPV 10.7 Immature Gran % (Auto) 0.5 H Neut % (Auto) 69.6 Lymph % (Auto) 21.4 [place] % (Auto) 7.7 Eos % (Auto) 0.5 Baso % (Auto) 0.3 Lymph # (Auto) 2.4 [place] # (Auto) 0.9 Eos # (Auto) 0.1 Baso # (Auto) 0.0 Abs Immat Gran (auto) 0.05 H Absolute Neuts (auto) 7.7 Absolute Nucleated RBC 0.000 Nucleated RBC % (auto) 0.0 PT INR D-Dimer High Sensitivty Sodium Potassium Chloride Carbon Dioxide Anion Gap BUN Creatinine Estim Creat Clear Calc Estimated GFR POC Glucose 107 167 H Random Glucose Fasting Glucose Osmolality Calcium Magnesium Total Bilirubin AST ALT Alkaline Phosphatase Total Creatine Kinase Troponin I High Sens B-Natriuretic Peptide Total Protein Albumin TSH Free Cortisol Urine Color Urine Appearance Urine pH Ur Specific [place] Urine Protein Urine Glucose (UA) Urine Ketones Urine Blood Urine Nitrite Ur Leukocyte Esterase Urine RBC Urine WBC Ur Squamous Epith Cells Urine Bacteria Hyaline Casts Urine Osmolality U Random Total Protein Ur Random Sodium Urine Creatinine Urine Microalbumin Microalb/Creat Ratio C. difficile Tox B Gene COVID-19 (JOSH) COVID-19 Clin Com Influenza Type A (PCR) Influenza Type B (PCR) RSV RNA Qual (PCR) SARS-CoV-2 RNA (RT-PCR) 06/16/22 06/16/22 06/16/22 05:40 07:33 11:04 WBC RBC Hgb Hct MCV MCH MCHC RDW Plt Count MPV Immature Gran % (Auto) Neut % (Auto) Lymph % (Auto) [place] % (Auto) Eos % (Auto) Baso % (Auto) Lymph # (Auto) [place] # (Auto) Eos # (Auto) Baso # (Auto) Abs Immat Gran (auto) Absolute Neuts (auto) Absolute Nucleated RBC Nucleated RBC % (auto) PT INR D-Dimer High Sensitivty Sodium 134 L Potassium 3.2 L D Chloride 95 L Carbon Dioxide 24 Anion Gap 18 BUN 17 H Creatinine 0.70 Estim Creat Clear Calc 85.5 Estimated GFR > 60 POC Glucose 90 278 H Random Glucose Fasting Glucose 73 Osmolality Calcium 8.6 Magnesium Total Bilirubin 1.2 H AST 48 H D ALT 22 Alkaline Phosphatase 49 Total Creatine Kinase Troponin I High Sens B-Natriuretic Peptide Total Protein 6.1 L Albumin 3.5 TSH Free Cortisol Urine Color Urine Appearance Urine pH Ur Specific [place] Urine Protein Urine Glucose (UA) Urine Ketones Urine Blood Urine Nitrite Ur Leukocyte Esterase Urine RBC Urine WBC Ur Squamous Epith Cells Urine Bacteria Hyaline Casts Urine Osmolality U Random Total Protein Ur Random Sodium Urine Creatinine Urine Microalbumin Microalb/Creat Ratio C. difficile Tox B Gene COVID-19 ([facility]OS[facility]) COVID-19 Clin Com Influenza Type A (PCR) Influenza Type B (PCR) RSV RNA Qual (PCR) SARS-CoV-2 RNA (RT-PCR) 06/16/22 06/16/22 06/17/22 16:35 19:32 05:26 WBC 8.0 RBC 4.33 L Hgb 12.1 L Hct 35.5 L MCV 82.0 MCH 27.9 MCHC 34.1 RDW 14.3 Plt Count 144 L MPV 9.7 Immature Gran % (Auto) Neut % (Auto) Lymph % (Auto) [place] % (Auto) Eos % (Auto) Baso % (Auto) Lymph # (Auto) [place] # (Auto) Eos # (Auto) Baso # (Auto) Abs Immat Gran (auto) Absolute Neuts (auto) Absolute Nucleated RBC 0.000 Nucleated RBC % (auto) 0.0 PT INR D-Dimer High Sensitivty Sodium Potassium Chloride Carbon Dioxide Anion Gap BUN Creatinine Estim Creat Clear Calc Estimated GFR POC Glucose 238 H 254 H Random Glucose Fasting Glucose Osmolality Calcium Magnesium Total Bilirubin AST ALT Alkaline Phosphatase Total Creatine Kinase Troponin I High Sens B-Natriuretic Peptide Total Protein Albumin TSH Free Cortisol Urine Color Urine Appearance Urine pH Ur Specific [place] Urine Protein Urine Glucose (UA) Urine Ketones Urine Blood Urine Nitrite Ur Leukocyte Esterase Urine RBC Urine WBC Ur Squamous Epith Cells Urine Bacteria Hyaline Casts Urine Osmolality U Random Total Protein Ur Random Sodium Urine Creatinine Urine Microalbumin Microalb/Creat Ratio C. difficile Tox B Gene COVID-19 ([facility]OS[facility]) COVID-19 Clin Com Influenza Type A (PCR) Influenza Type B (PCR) RSV RNA Qual (PCR) SARS-CoV-2 RNA (RT-PCR) 06/17/22 06/17/22 06/17/22 05:26 07:12 11:14 WBC RBC Hgb Hct MCV MCH MCHC RDW Plt Count MPV Immature Gran % (Auto) Neut % (Auto) Lymph % (Auto) [place] % (Auto) Eos % (Auto) Baso % (Auto) Lymph # (Auto) [place] # (Auto) Eos # (Auto) Baso # (Auto) Abs Immat Gran (auto) Absolute Neuts (auto) Absolute Nucleated RBC Nucleated RBC % (auto) PT INR D-Dimer High Sensitivty Sodium 134 L Potassium 3.2 L Chloride 94 L Carbon Dioxide 26 Anion Gap 17 BUN 14 Creatinine 0.65 Estim Creat Clear Calc 92.1 Estimated GFR > 60 POC Glucose 142 H 268 H Random Glucose Fasting Glucose 149 H D Osmolality Calcium 8.3 L Magnesium Total Bilirubin AST ALT Alkaline Phosphatase Total Creatine Kinase Troponin I High Sens B-Natriuretic Peptide Total Protein Albumin TSH Free Cortisol Urine Color Urine Appearance Urine pH Ur Specific [place] Urine Protein Urine Glucose (UA) Urine Ketones Urine Blood Urine Nitrite Ur Leukocyte Esterase Urine RBC Urine WBC Ur Squamous Epith Cells Urine Bacteria Hyaline Casts Urine Osmolality U Random Total Protein Ur Random Sodium Urine Creatinine Urine Microalbumin Microalb/Creat Ratio C. difficile Tox B Gene COVID-19 ([facility]) COVID-19 Clin Com Influenza Type A (PCR) Influenza Type B (PCR) RSV RNA Qual (PCR) SARS-CoV-2 RNA (RT-PCR) 06/17/22 06/17/22 06/18/22 15:52 19:38 05:39 WBC 6.8 RBC 4.33 L Hgb 11.9 L Hct 35.7 L MCV 82.4 MCH 27.5 MCHC 33.3 RDW 14.5 Plt Count 158 L MPV 9.5 Immature Gran % (Auto) Neut % (Auto) Lymph % (Auto) [place] % (Auto) Eos % (Auto) Baso % (Auto) Lymph # (Auto) [place] # (Auto) Eos # (Auto) Baso # (Auto) Abs Immat Gran (auto) Absolute Neuts (auto) Absolute Nucleated RBC 0.000 Nucleated RBC % (auto) 0.0 PT INR D-Dimer High Sensitivty Sodium Potassium Chloride Carbon Dioxide Anion Gap BUN Creatinine Estim Creat Clear Calc Estimated GFR POC Glucose 267 H 229 H Random Glucose Fasting Glucose Osmolality Calcium Magnesium Total Bilirubin AST ALT Alkaline Phosphatase Total Creatine Kinase Troponin I High Sens B-Natriuretic Peptide Total Protein Albumin TSH Free Cortisol Urine Color Urine Appearance Urine pH Ur Specific [place] Urine Protein Urine Glucose (UA) Urine Ketones Urine Blood Urine Nitrite Ur Leukocyte Esterase Urine RBC Urine WBC Ur Squamous Epith Cells Urine Bacteria Hyaline Casts Urine Osmolality U Random Total Protein Ur Random Sodium Urine Creatinine Urine Microalbumin Microalb/Creat Ratio C. difficile Tox B Gene COVID-19 ([facility]) COVID-19 Clin Com Influenza Type A (PCR) Influenza Type B (PCR) RSV RNA Qual (PCR) SARS-CoV-2 RNA (RT-PCR) 06/18/22 06/18/22 06/18/22 05:39 07:17 11:27 WBC RBC Hgb Hct MCV MCH MCHC RDW Plt Count MPV Immature Gran % (Auto) Neut % (Auto) Lymph % (Auto) [place] % (Auto) Eos % (Auto) Baso % (Auto) Lymph # (Auto) [place] # (Auto) Eos # (Auto) Baso # (Auto) Abs Immat Gran (auto) Absolute Neuts (auto) Absolute Nucleated RBC Nucleated RBC % (auto) PT INR D-Dimer High Sensitivty Sodium 133 L Potassium 3.5 Chloride 94 L Carbon Dioxide 29 Anion Gap 14 BUN 17 H Creatinine 0.72 Estim Creat Clear Calc 83.1 Estimated GFR > 60 POC Glucose 184 H 321 H Random Glucose Fasting Glucose 204 H D Osmolality Calcium 8.0 L Magnesium Total Bilirubin AST ALT Alkaline Phosphatase Total Creatine Kinase Troponin I High Sens B-Natriuretic Peptide Total Protein Albumin TSH Free Cortisol Urine Color Urine Appearance Urine pH Ur Specific [place] Urine Protein Urine Glucose (UA) Urine Ketones Urine Blood Urine Nitrite Ur Leukocyte Esterase Urine RBC Urine WBC Ur Squamous Epith Cells Urine Bacteria Hyaline Casts Urine Osmolality U Random Total Protein Ur Random Sodium Urine Creatinine Urine Microalbumin Microalb/Creat Ratio C. difficile Tox B Gene COVID-19 ([facility]) COVID-19 Clin Com Influenza Type A (PCR) Influenza Type B (PCR) RSV RNA Qual (PCR) SARS-CoV-2 RNA (RT-PCR) 06/18/22 06/18/22 06/18/22 15:56 19:40 20:57 WBC RBC Hgb Hct MCV MCH MCHC RDW Plt Count MPV Immature Gran % (Auto) Neut % (Auto) Lymph % (Auto) [place] % (Auto) Eos % (Auto) Baso % (Auto) Lymph # (Auto) [place] # (Auto) Eos # (Auto) Baso # (Auto) Abs Immat Gran (auto) Absolute Neuts (auto) Absolute Nucleated RBC Nucleated RBC % (auto) PT INR D-Dimer High Sensitivty Sodium Potassium Chloride Carbon Dioxide Anion Gap BUN Creatinine Estim Creat Clear Calc Estimated GFR POC Glucose 272 H 212 H Random Glucose Fasting Glucose Osmolality Calcium Magnesium Total Bilirubin AST ALT Alkaline Phosphatase Total Creatine Kinase Troponin I High Sens 37.4 H B-Natriuretic Peptide Total Protein Albumin TSH Free Cortisol Urine Color Urine Appearance Urine pH Ur Specific [place] Urine Protein Urine Glucose (UA) Urine Ketones Urine Blood Urine Nitrite Ur Leukocyte Esterase Urine RBC Urine WBC Ur Squamous Epith Cells Urine Bacteria Hyaline Casts Urine Osmolality U Random Total Protein Ur Random Sodium Urine Creatinine Urine Microalbumin Microalb/Creat Ratio C. difficile Tox B Gene COVID-19 ([facility]) COVID-19 Clin Com Influenza Type A (PCR) Influenza Type B (PCR) RSV RNA Qual (PCR) SARS-CoV-2 RNA (RT-PCR) 06/19/22 06/19/22 06/19/22 05:20 05:20 07:07 WBC 7.8 RBC 4.67 Hgb 12.8 L Hct 38.2 L MCV 81.8 MCH 27.4 MCHC 33.5 RDW 14.5 Plt Count 176 MPV 9.7 Immature Gran % (Auto) Neut % (Auto) Lymph % (Auto) [place] % (Auto) Eos % (Auto) Baso % (Auto) Lymph # (Auto) [place] # (Auto) Eos # (Auto) Baso # (Auto) Abs Immat Gran (auto) Absolute Neuts (auto) Absolute Nucleated RBC 0.000 Nucleated RBC % (auto) 0.0 PT INR D-Dimer High Sensitivty Sodium 132 L Potassium 3.4 Chloride 93 L Carbon Dioxide 28 Anion Gap 14 BUN 15 Creatinine 0.68 Estim Creat Clear Calc 88.0 Estimated GFR > 60 POC Glucose 160 H Random Glucose Fasting Glucose 144 H Osmolality Calcium 8.2 L Magnesium Total Bilirubin AST ALT Alkaline Phosphatase Total Creatine Kinase Troponin I High Sens B-Natriuretic Peptide Total Protein Albumin TSH Free Cortisol Urine Color Urine Appearance Urine pH Ur Specific [place] Urine Protein Urine Glucose (UA) Urine Ketones Urine Blood Urine Nitrite Ur Leukocyte Esterase Urine RBC Urine WBC Ur Squamous Epith Cells Urine Bacteria Hyaline Casts Urine Osmolality U Random Total Protein Ur Random Sodium Urine Creatinine Urine Microalbumin Microalb/Creat Ratio C. difficile Tox B Gene COVID-19 ([facility]) COVID-19 Clin Com Influenza Type A (PCR) Influenza Type B (PCR) RSV RNA Qual (PCR) SARS-CoV-2 RNA (RT-PCR) 06/19/22 06/19/22 06/19/22 10:51 13:20 15:43 WBC RBC Hgb Hct MCV MCH MCHC RDW Plt Count MPV Immature Gran % (Auto) Neut % (Auto) Lymph % (Auto) [place] % (Auto) Eos % (Auto) Baso % (Auto) Lymph # (Auto) [place] # (Auto) Eos # (Auto) Baso # (Auto) Abs Immat Gran (auto) Absolute Neuts (auto) Absolute Nucleated RBC Nucleated RBC % (auto) PT INR D-Dimer High Sensitivty Sodium Potassium Chloride Carbon Dioxide Anion Gap BUN Creatinine Estim Creat Clear Calc Estimated GFR POC Glucose 250 H 244 H Random Glucose Fasting Glucose Osmolality Calcium Magnesium Total Bilirubin AST ALT Alkaline Phosphatase Total Creatine Kinase Troponin I High Sens B-Natriuretic Peptide Total Protein Albumin TSH Free Cortisol Urine Color Urine Appearance Urine pH Ur Specific [place] Urine Protein Urine Glucose (UA) Urine Ketones Urine Blood Urine Nitrite Ur Leukocyte Esterase Urine RBC Urine WBC Ur Squamous Epith Cells Urine Bacteria Hyaline Casts Urine Osmolality U Random Total Protein Ur Random Sodium Urine Creatinine Urine Microalbumin Microalb/Creat Ratio C. difficile Tox B Gene COVID-19 ([facility]) Negative COVID-19 Clin Com See Note Influenza Type A (PCR) Influenza Type B (PCR) RSV RNA Qual (PCR) SARS-CoV-2 RNA (RT-PCR) 06/19/22 06/20/22 06/20/22 19:43 05:37 05:37 WBC 9.2 RBC 4.66 Hgb 12.6 L Hct 37.5 L MCV 80.5 MCH 27.0 MCHC 33.6 RDW 14.2 Plt Count 191 MPV 8.9 L Immature Gran % (Auto) Neut % (Auto) Lymph % (Auto) [place] % (Auto) Eos % (Auto) Baso % (Auto) Lymph # (Auto) [place] # (Auto) Eos # (Auto) Baso # (Auto) Abs Immat Gran (auto) Absolute Neuts (auto) Absolute Nucleated RBC 0.000 Nucleated RBC % (auto) 0.0 PT INR D-Dimer High Sensitivty Sodium 127 L Potassium 2.9 L Chloride 92 L Carbon Dioxide 26 Anion Gap 12 BUN 16 Creatinine 0.68 Estim Creat Clear Calc 88.0 Estimated GFR > 60 POC Glucose 202 H Random Glucose 109 Fasting Glucose Osmolality Calcium 7.9 L Magnesium Total Bilirubin AST ALT Alkaline Phosphatase Total Creatine Kinase Troponin I High Sens B-Natriuretic Peptide Total Protein Albumin TSH Free Cortisol Urine Color Urine Appearance Urine pH Ur Specific [place] Urine Protein Urine Glucose (UA) Urine Ketones Urine Blood Urine Nitrite Ur Leukocyte Esterase Urine RBC Urine WBC Ur Squamous Epith Cells Urine Bacteria Hyaline Casts Urine Osmolality U Random Total Protein Ur Random Sodium Urine Creatinine Urine Microalbumin Microalb/Creat Ratio C. difficile Tox B Gene COVID-19 ([facility]) COVID-19 Clin Com Influenza Type A (PCR) Influenza Type B (PCR) RSV RNA Qual (PCR) SARS-CoV-2 RNA (RT-PCR) 06/20/22 06/20/22 06/20/22 07:17 11:01 11:52 WBC RBC Hgb Hct MCV MCH MCHC RDW Plt Count MPV Immature Gran % (Auto) Neut % (Auto) Lymph % (Auto) [place] % (Auto) Eos % (Auto) Baso % (Auto) Lymph # (Auto) [place] # (Auto) Eos # (Auto) Baso # (Auto) Abs Immat Gran (auto) Absolute Neuts (auto) Absolute Nucleated RBC Nucleated RBC % (auto) PT INR D-Dimer High Sensitivty Sodium 127 L Potassium 4.1 D Chloride 93 L Carbon Dioxide 26 Anion Gap 12 BUN 17 H Creatinine 0.73 Estim Creat Clear Calc 82.0 Estimated GFR > 60 POC Glucose 112 163 H Random Glucose 158 H Fasting Glucose Osmolality Calcium 8.0 L Magnesium Total Bilirubin AST ALT Alkaline Phosphatase Total Creatine Kinase Troponin I High Sens B-Natriuretic Peptide Total Protein Albumin TSH Free Cortisol Urine Color Urine Appearance Urine pH Ur Specific [place] Urine Protein Urine Glucose (UA) Urine Ketones Urine Blood Urine Nitrite Ur Leukocyte Esterase Urine RBC Urine WBC Ur Squamous Epith Cells Urine Bacteria Hyaline Casts Urine Osmolality U Random Total Protein Ur Random Sodium Urine Creatinine Urine Microalbumin Microalb/Creat Ratio C. difficile Tox B Gene COVID-19 ([facility]) COVID-19 Clin Com Influenza Type A (PCR) Influenza Type B (PCR) RSV RNA Qual (PCR) SARS-CoV-2 RNA (RT-PCR) 06/20/22 06/20/22 06/20/22 15:00 15:00 16:16 WBC RBC Hgb Hct MCV MCH MCHC RDW Plt Count MPV Immature Gran % (Auto) Neut % (Auto) Lymph % (Auto) [place] % (Auto) Eos % (Auto) Baso % (Auto) Lymph # (Auto) [place] # (Auto) Eos # (Auto) Baso # (Auto) Abs Immat Gran (auto) Absolute Neuts (auto) Absolute Nucleated RBC Nucleated RBC % (auto) PT INR D-Dimer High Sensitivty Sodium Potassium Chloride Carbon Dioxide Anion Gap BUN Creatinine Estim Creat Clear Calc Estimated GFR POC Glucose 162 H Random Glucose Fasting Glucose Osmolality Calcium Magnesium Total Bilirubin AST ALT Alkaline Phosphatase Total Creatine Kinase Troponin I High Sens B-Natriuretic Peptide Total Protein Albumin TSH Free Cortisol Urine Color Urine Appearance Urine pH Ur Specific [place] Urine Protein Urine Glucose (UA) Urine Ketones Urine Blood Urine Nitrite Ur Leukocyte Esterase Urine RBC Urine WBC Ur Squamous Epith Cells Urine Bacteria Hyaline Casts Urine Osmolality U Random Total Protein Ur Random Sodium 78.0 Urine Creatinine 119.33 Urine Microalbumin Microalb/Creat Ratio C. difficile Tox B Gene COVID-19 ([facility]) COVID-19 Clin Com Influenza Type A (PCR) Influenza Type B (PCR) RSV RNA Qual (PCR) SARS-CoV-2 RNA (RT-PCR) 06/20/22 06/20/22 06/21/22 20:42 20:59 06:49 WBC 8.4 RBC 4.81 Hgb 13.2 L Hct 39.6 L MCV 82.3 MCH 27.4 MCHC 33.3 RDW 14.6 Plt Count 176 MPV 10.6 Immature Gran % (Auto) Neut % (Auto) Lymph % (Auto) [place] % (Auto) Eos % (Auto) Baso % (Auto) Lymph # (Auto) [place] # (Auto) Eos # (Auto) Baso # (Auto) Abs Immat Gran (auto) Absolute Neuts (auto) Absolute Nucleated RBC 0.000 Nucleated RBC % (auto) 0.0 PT INR D-Dimer High Sensitivty Sodium 125 L Potassium 4.1 Chloride 92 L Carbon Dioxide 20 L Anion Gap 17 BUN 19 H Creatinine 0.71 Estim Creat Clear Calc 84.3 Estimated GFR > 60 POC Glucose 165 H Random Glucose 136 H D Fasting Glucose Osmolality Calcium 7.8 L Magnesium Total Bilirubin AST ALT Alkaline Phosphatase Total Creatine Kinase Troponin I High Sens B-Natriuretic Peptide Total Protein Albumin TSH Free Cortisol Urine Color Urine Appearance Urine pH Ur Specific [place] Urine Protein Urine Glucose (UA) Urine Ketones Urine Blood Urine Nitrite Ur Leukocyte Esterase Urine RBC Urine WBC Ur Squamous Epith Cells Urine Bacteria Hyaline Casts Urine Osmolality U Random Total Protein Ur Random Sodium Urine Creatinine Urine Microalbumin Microalb/Creat Ratio C. difficile Tox B Gene COVID-19 ([facility]) COVID-19 Clin Com Influenza Type A (PCR) Influenza Type B (PCR) RSV RNA Qual (PCR) SARS-CoV-2 RNA (RT-PCR) 06/21/22 06/21/22 06/21/22 06:49 07:29 11:17 WBC RBC Hgb Hct MCV MCH MCHC RDW Plt Count MPV Immature Gran % (Auto) Neut % (Auto) Lymph % (Auto) [place] % (Auto) Eos % (Auto) Baso % (Auto) Lymph # (Auto) [place] # (Auto) Eos # (Auto) Baso # (Auto) Abs Immat Gran (auto) Absolute Neuts (auto) Absolute Nucleated RBC Nucleated RBC % (auto) PT INR D-Dimer High Sensitivty Sodium 128 L Potassium 3.5 Chloride 94 L Carbon Dioxide 23 Anion Gap 15 BUN 20 H Creatinine 0.69 Estim Creat Clear Calc 86.8 Estimated GFR > 60 POC Glucose 95 147 H Random Glucose 91 Fasting Glucose Osmolality Calcium 8.1 L Magnesium Total Bilirubin AST ALT Alkaline Phosphatase Total Creatine Kinase Troponin I High Sens B-Natriuretic Peptide Total Protein Albumin TSH Free Cortisol Urine Color Urine Appearance Urine pH Ur Specific [place] Urine Protein Urine Glucose (UA) Urine Ketones Urine Blood Urine Nitrite Ur Leukocyte Esterase Urine RBC Urine WBC Ur Squamous Epith Cells Urine Bacteria Hyaline Casts Urine Osmolality U Random Total Protein Ur Random Sodium Urine Creatinine Urine Microalbumin Microalb/Creat Ratio C. difficile Tox B Gene COVID-19 ([facility]) COVID-19 Clin Com Influenza Type A (PCR) Influenza Type B (PCR) RSV RNA Qual (PCR) SARS-CoV-2 RNA (RT-PCR) 06/21/22 06/21/22 06/21/22 15:25 16:17 20:05 WBC RBC Hgb Hct MCV MCH MCHC RDW Plt Count MPV Immature Gran % (Auto) Neut % (Auto) Lymph % (Auto) [place] % (Auto) Eos % (Auto) Baso % (Auto) Lymph # (Auto) [place] # (Auto) Eos # (Auto) Baso # (Auto) Abs Immat Gran (auto) Absolute Neuts (auto) Absolute Nucleated RBC Nucleated RBC % (auto) PT INR D-Dimer High Sensitivty Sodium 126 L Potassium 3.8 Chloride 93 L Carbon Dioxide 21 L Anion Gap 16 BUN 20 H Creatinine 0.68 Estim Creat Clear Calc 88.0 Estimated GFR > 60 POC Glucose 152 H 240 H Random Glucose 156 H Fasting Glucose Osmolality Calcium 7.8 L Magnesium Total Bilirubin AST ALT Alkaline Phosphatase Total Creatine Kinase Troponin I High Sens B-Natriuretic Peptide Total Protein Albumin TSH Free Cortisol Urine Color Urine Appearance Urine pH Ur Specific [place] Urine Protein Urine Glucose (UA) Urine Ketones Urine Blood Urine Nitrite Ur Leukocyte Esterase Urine RBC Urine WBC Ur Squamous Epith Cells Urine Bacteria Hyaline Casts Urine Osmolality U Random Total Protein Ur Random Sodium Urine Creatinine Urine Microalbumin Microalb/Creat Ratio C. difficile Tox B Gene COVID-19 ([facility]) COVID-19 Clin Com Influenza Type A (PCR) Influenza Type B (PCR) RSV RNA Qual (PCR) SARS-CoV-2 RNA (RT-PCR) 06/21/22 06/21/22 06/22/22 21:30 22:25 05:49 WBC 7.5 RBC 4.31 L Hgb 11.8 L Hct 34.7 L MCV 80.5 MCH 27.4 MCHC 34.0 RDW 14.3 Plt Count 230 D MPV 9.4 Immature Gran % (Auto) Neut % (Auto) Lymph % (Auto) [place] % (Auto) Eos % (Auto) Baso % (Auto) Lymph # (Auto) [place] # (Auto) Eos # (Auto) Baso # (Auto) Abs Immat Gran (auto) Absolute Neuts (auto) Absolute Nucleated RBC 0.000 Nucleated RBC % (auto) 0.0 PT INR D-Dimer High Sensitivty Sodium Potassium Chloride Carbon Dioxide Anion Gap BUN Creatinine Estim Creat Clear Calc Estimated GFR POC Glucose Random Glucose Fasting Glucose Osmolality Calcium Magnesium Total Bilirubin AST ALT Alkaline Phosphatase Total Creatine Kinase Troponin I High Sens B-Natriuretic Peptide Total Protein Albumin TSH Free Cortisol Urine Color Urine Appearance Urine pH Ur Specific [place] Urine Protein Urine Glucose (UA) Urine Ketones Urine Blood Urine Nitrite Ur Leukocyte Esterase Urine RBC Urine WBC Ur Squamous Epith Cells Urine Bacteria Hyaline Casts Urine Osmolality 829 U Random Total Protein Ur Random Sodium Urine Creatinine Urine Microalbumin Microalb/Creat Ratio C. difficile Tox B Gene NEGATIVE COVID-19 ([facility]) COVID-19 Clin Com Influenza Type A (PCR) Influenza Type B (PCR) RSV RNA Qual (PCR) SARS-CoV-2 RNA (RT-PCR) 06/22/22 06/22/22 06/22/22 05:49 05:49 07:21 WBC RBC Hgb Hct MCV MCH MCHC RDW Plt Count MPV Immature Gran % (Auto) Neut % (Auto) Lymph % (Auto) [place] % (Auto) Eos % (Auto) Baso % (Auto) Lymph # (Auto) [place] # (Auto) Eos # (Auto) Baso # (Auto) Abs Immat Gran (auto) Absolute Neuts (auto) Absolute Nucleated RBC Nucleated RBC % (auto) PT INR D-Dimer High Sensitivty Sodium 143 Potassium 3.9 Chloride 111 H Carbon Dioxide 25 Anion Gap 11 L BUN 9 Creatinine 0.66 Estim Creat Clear Calc 90.7 Estimated GFR > 60 POC Glucose 131 H Random Glucose 143 H Fasting Glucose Osmolality 272 L Calcium 8.6 D Magnesium Total Bilirubin AST ALT Alkaline Phosphatase Total Creatine Kinase Troponin I High Sens B-Natriuretic Peptide Total Protein Albumin TSH Free Cortisol Urine Color Urine Appearance Urine pH Ur Specific [place] Urine Protein Urine Glucose (UA) Urine Ketones Urine Blood Urine Nitrite Ur Leukocyte Esterase Urine RBC Urine WBC Ur Squamous Epith Cells Urine Bacteria Hyaline Casts Urine Osmolality U Random Total Protein Ur Random Sodium Urine Creatinine Urine Microalbumin Microalb/Creat Ratio C. difficile Tox B Gene COVID-19 ([facility]) COVID-19 Clin Com Influenza Type A (PCR) Influenza Type B (PCR) RSV RNA Qual (PCR) SARS-CoV-2 RNA (RT-PCR) 06/22/22 06/22/22 06/22/22 11:11 15:17 19:15 WBC RBC Hgb Hct MCV MCH MCHC RDW Plt Count MPV Immature Gran % (Auto) Neut % (Auto) Lymph % (Auto) [place] % (Auto) Eos % (Auto) Baso % (Auto) Lymph # (Auto) [place] # (Auto) Eos # (Auto) Baso # (Auto) Abs Immat Gran (auto) Absolute Neuts (auto) Absolute Nucleated RBC Nucleated RBC % (auto) PT INR D-Dimer High Sensitivty Sodium Potassium Chloride Carbon Dioxide Anion Gap BUN Creatinine Estim Creat Clear Calc Estimated GFR POC Glucose 205 H 170 H 159 H Random Glucose Fasting Glucose Osmolality Calcium Magnesium Total Bilirubin AST ALT Alkaline Phosphatase Total Creatine Kinase Troponin I High Sens B-Natriuretic Peptide Total Protein Albumin TSH Free Cortisol Urine Color Urine Appearance Urine pH Ur Specific [place] Urine Protein Urine Glucose (UA) Urine Ketones Urine Blood Urine Nitrite Ur Leukocyte Esterase Urine RBC Urine WBC Ur Squamous Epith Cells Urine Bacteria Hyaline Casts Urine Osmolality U Random Total Protein Ur Random Sodium Urine Creatinine Urine Microalbumin Microalb/Creat Ratio C. difficile Tox B Gene COVID-19 ([facility]) COVID-19 Clin Com Influenza Type A (PCR) Influenza Type B (PCR) RSV RNA Qual (PCR) SARS-CoV-2 RNA (RT-PCR) 06/23/22 06/23/22 06/23/22 06:59 10:55 15:43 WBC RBC Hgb Hct MCV MCH MCHC RDW Plt Count MPV Immature Gran % (Auto) Neut % (Auto) Lymph % (Auto) [place] % (Auto) Eos % (Auto) Baso % (Auto) Lymph # (Auto) [place] # (Auto) Eos # (Auto) Baso # (Auto) Abs Immat Gran (auto) Absolute Neuts (auto) Absolute Nucleated RBC Nucleated RBC % (auto) PT INR D-Dimer High Sensitivty Sodium Potassium Chloride Carbon Dioxide Anion Gap BUN Creatinine Estim Creat Clear Calc Estimated GFR POC Glucose 84 185 H 184 H Random Glucose Fasting Glucose Osmolality Calcium Magnesium Total Bilirubin AST ALT Alkaline Phosphatase Total Creatine Kinase Troponin I High Sens B-Natriuretic Peptide Total Protein Albumin TSH Free Cortisol Urine Color Urine Appearance Urine pH Ur Specific [place] Urine Protein Urine Glucose (UA) Urine Ketones Urine Blood Urine Nitrite Ur Leukocyte Esterase Urine RBC Urine WBC Ur Squamous Epith Cells Urine Bacteria Hyaline Casts Urine Osmolality U Random Total Protein Ur Random Sodium Urine Creatinine Urine Microalbumin Microalb/Creat Ratio C. difficile Tox B Gene COVID-19 ([facility]) COVID-19 Clin Com Influenza Type A (PCR) Influenza Type B (PCR) RSV RNA Qual (PCR) SARS-CoV-2 RNA (RT-PCR) 06/23/22 06/24/22 06/24/22 20:33 07:23 11:08 WBC RBC Hgb Hct MCV MCH MCHC RDW Plt Count MPV Immature Gran % (Auto) Neut % (Auto) Lymph % (Auto) [place] % (Auto) Eos % (Auto) Baso % (Auto) Lymph # (Auto) [place] # (Auto) Eos # (Auto) Baso # (Auto) Abs Immat Gran (auto) Absolute Neuts (auto) Absolute Nucleated RBC Nucleated RBC % (auto) PT INR D-Dimer High Sensitivty Sodium Potassium Chloride Carbon Dioxide Anion Gap BUN Creatinine Estim Creat Clear Calc Estimated GFR POC Glucose 167 H 121 H 168 H Random Glucose Fasting Glucose Osmolality Calcium Magnesium Total Bilirubin AST ALT Alkaline Phosphatase Total Creatine Kinase Troponin I High Sens B-Natriuretic Peptide Total Protein Albumin TSH Free Cortisol Urine Color Urine Appearance Urine pH Ur Specific [place] Urine Protein Urine Glucose (UA) Urine Ketones Urine Blood Urine Nitrite Ur Leukocyte Esterase Urine RBC Urine WBC Ur Squamous Epith Cells Urine Bacteria Hyaline Casts Urine Osmolality U Random Total Protein Ur Random Sodium Urine Creatinine Urine Microalbumin Microalb/Creat Ratio C. difficile Tox B Gene COVID-19 ([facility]) COVID-19 Clin Com Influenza Type A (PCR) Influenza Type B (PCR) RSV RNA Qual (PCR) SARS-CoV-2 RNA (RT-PCR) 06/24/22 06/24/22 06/25/22 16:09 19:58 06:05 WBC RBC Hgb Hct MCV MCH MCHC RDW Plt Count MPV Immature Gran % (Auto) Neut % (Auto) Lymph % (Auto) [place] % (Auto) Eos % (Auto) Baso % (Auto) Lymph # (Auto) [place] # (Auto) Eos # (Auto) Baso # (Auto) Abs Immat Gran (auto) Absolute Neuts (auto) Absolute Nucleated RBC Nucleated RBC % (auto) PT INR D-Dimer High Sensitivty Sodium 128 L Potassium 3.6 Chloride 92 L Carbon Dioxide 25 Anion Gap 15 BUN 15 Creatinine 0.58 Estim Creat Clear Calc 103.2 Estimated GFR > 60 POC Glucose 131 H 145 H Random Glucose 72 D Fasting Glucose Osmolality Calcium 8.1 L Magnesium Total Bilirubin AST ALT Alkaline Phosphatase Total Creatine Kinase Troponin I High Sens B-Natriuretic Peptide Total Protein Albumin TSH Free Cortisol Urine Color Urine Appearance Urine pH Ur Specific [place] Urine Protein Urine Glucose (UA) Urine Ketones Urine Blood Urine Nitrite Ur Leukocyte Esterase Urine RBC Urine WBC Ur Squamous Epith Cells Urine Bacteria Hyaline Casts Urine Osmolality U Random Total Protein Ur Random Sodium Urine Creatinine Urine Microalbumin Microalb/Creat Ratio C. difficile Tox B Gene COVID-19 ([facility]) COVID-19 Clin Com Influenza Type A (PCR) Influenza Type B (PCR) RSV RNA Qual (PCR) SARS-CoV-2 RNA (RT-PCR) 06/25/22 06/25/22 06/25/22 06:05 08:04 09:20 WBC RBC Hgb Hct MCV MCH MCHC RDW Plt Count MPV Immature Gran % (Auto) Neut % (Auto) Lymph % (Auto) [place] % (Auto) Eos % (Auto) Baso % (Auto) Lymph # (Auto) [place] # (Auto) Eos # (Auto) Baso # (Auto) Abs Immat Gran (auto) Absolute Neuts (auto) Absolute Nucleated RBC Nucleated RBC % (auto) PT INR D-Dimer High Sensitivty Sodium Potassium Chloride Carbon Dioxide Anion Gap BUN Creatinine Estim Creat Clear Calc Estimated GFR POC Glucose 80 Random Glucose Fasting Glucose Osmolality 263 L Calcium Magnesium Total Bilirubin AST ALT Alkaline Phosphatase Total Creatine Kinase Troponin I High Sens B-Natriuretic Peptide Total Protein Albumin TSH Free Cortisol Urine Color Urine Appearance Urine pH Ur Specific [place] Urine Protein Urine Glucose (UA) Urine Ketones Urine Blood Urine Nitrite Ur Leukocyte Esterase Urine RBC Urine WBC Ur Squamous Epith Cells Urine Bacteria Hyaline Casts Urine Osmolality 636 U Random Total Protein Ur Random Sodium Urine Creatinine Urine Microalbumin Microalb/Creat Ratio C. difficile Tox B Gene COVID-19 ([facility]) COVID-19 Clin Com Influenza Type A (PCR) Influenza Type B (PCR) RSV RNA Qual (PCR) SARS-CoV-2 RNA (RT-PCR) 06/25/22 06/25/22 06/25/22 09:20 11:12 14:28 WBC RBC Hgb Hct MCV MCH MCHC RDW Plt Count MPV Immature Gran % (Auto) Neut % (Auto) Lymph % (Auto) [place] % (Auto) Eos % (Auto) Baso % (Auto) Lymph # (Auto) [place] # (Auto) Eos # (Auto) Baso # (Auto) Abs Immat Gran (auto) Absolute Neuts (auto) Absolute Nucleated RBC Nucleated RBC % (auto) PT INR D-Dimer High Sensitivty Sodium 125 L Potassium 3.8 Chloride 92 L Carbon Dioxide 24 Anion Gap 13 BUN 21 H Creatinine 0.71 Estim Creat Clear Calc 84.3 Estimated GFR > 60 POC Glucose 177 H Random Glucose 260 H Fasting Glucose Osmolality Calcium 8.0 L Magnesium Total Bilirubin AST ALT Alkaline Phosphatase Total Creatine Kinase Troponin I High Sens B-Natriuretic Peptide Total Protein Albumin TSH Free Cortisol Urine Color Urine Appearance Urine pH Ur Specific [place] Urine Protein Urine Glucose (UA) Urine Ketones Urine Blood Urine Nitrite Ur Leukocyte Esterase Urine RBC Urine WBC Ur Squamous Epith Cells Urine Bacteria Hyaline Casts Urine Osmolality U Random Total Protein Ur Random Sodium 77.0 Urine Creatinine Urine Microalbumin Microalb/Creat Ratio C. difficile Tox B Gene COVID-19 ([facility]) COVID-19 Clin Com Influenza Type A (PCR) Influenza Type B (PCR) RSV RNA Qual (PCR) SARS-CoV-2 RNA (RT-PCR) 06/25/22 06/25/22 06/26/22 14:49 19:03 06:25 WBC RBC Hgb Hct MCV MCH MCHC RDW Plt Count MPV Immature Gran % (Auto) Neut % (Auto) Lymph % (Auto) [place] % (Auto) Eos % (Auto) Baso % (Auto) Lymph # (Auto) [place] # (Auto) Eos # (Auto) Baso # (Auto) Abs Immat Gran (auto) Absolute Neuts (auto) Absolute Nucleated RBC Nucleated RBC % (auto) PT INR D-Dimer High Sensitivty Sodium Potassium Chloride Carbon Dioxide Anion Gap BUN Creatinine Estim Creat Clear Calc Estimated GFR POC Glucose 261 H 212 H Random Glucose Fasting Glucose Osmolality Calcium Magnesium Total Bilirubin AST ALT Alkaline Phosphatase Total Creatine Kinase Troponin I High Sens B-Natriuretic Peptide Total Protein Albumin TSH 1.16 Free Cortisol Urine Color Urine Appearance Urine pH Ur Specific [place] Urine Protein Urine Glucose (UA) Urine Ketones Urine Blood Urine Nitrite Ur Leukocyte Esterase Urine RBC Urine WBC Ur Squamous Epith Cells Urine Bacteria Hyaline Casts Urine Osmolality U Random Total Protein Ur Random Sodium Urine Creatinine Urine Microalbumin Microalb/Creat Ratio C. difficile Tox B Gene COVID-19 ([facility]) COVID-19 Clin Com Influenza Type A (PCR) Influenza Type B (PCR) RSV RNA Qual (PCR) SARS-CoV-2 RNA (RT-PCR) 06/26/22 06/26/22 06/26/22 06:25 06:25 07:22 WBC RBC Hgb Hct MCV MCH MCHC RDW Plt Count MPV Immature Gran % (Auto) Neut % (Auto) Lymph % (Auto) [place] % (Auto) Eos % (Auto) Baso % (Auto) Lymph # (Auto) [place] # (Auto) Eos # (Auto) Baso # (Auto) Abs Immat Gran (auto) Absolute Neuts (auto) Absolute Nucleated RBC Nucleated RBC % (auto) PT INR D-Dimer High Sensitivty Sodium 127 L Potassium 3.6 Chloride 94 L Carbon Dioxide 25 Anion Gap 12 BUN 16 Creatinine 0.60 Estim Creat Clear Calc 99.8 Estimated GFR > 60 POC Glucose 75 Random Glucose 65 Fasting Glucose Osmolality Calcium 8.1 L Magnesium Total Bilirubin AST ALT Alkaline Phosphatase Total Creatine Kinase Troponin I High Sens B-Natriuretic Peptide Total Protein Albumin TSH Free Cortisol 1.16 H Urine Color Urine Appearance Urine pH Ur Specific [place] Urine Protein Urine Glucose (UA) Urine Ketones Urine Blood Urine Nitrite Ur Leukocyte Esterase Urine RBC Urine WBC Ur Squamous Epith Cells Urine Bacteria Hyaline Casts Urine Osmolality U Random Total Protein Ur Random Sodium Urine Creatinine Urine Microalbumin Microalb/Creat Ratio C. difficile Tox B Gene COVID-19 ([facility]) COVID-19 Clin Com Influenza Type A (PCR) Influenza Type B (PCR) RSV RNA Qual (PCR) SARS-CoV-2 RNA (RT-PCR) 06/26/22 06/26/22 06/26/22 11:33 15:33 19:59 WBC RBC Hgb Hct MCV MCH MCHC RDW Plt Count MPV Immature Gran % (Auto) Neut % (Auto) Lymph % (Auto) [place] % (Auto) Eos % (Auto) Baso % (Auto) Lymph # (Auto) [place] # (Auto) Eos # (Auto) Baso # (Auto) Abs Immat Gran (auto) Absolute Neuts (auto) Absolute Nucleated RBC Nucleated RBC % (auto) PT INR D-Dimer High Sensitivty Sodium Potassium Chloride Carbon Dioxide Anion Gap BUN Creatinine Estim Creat Clear Calc Estimated GFR POC Glucose 149 H 262 H 213 H Random Glucose Fasting Glucose Osmolality Calcium Magnesium Total Bilirubin AST ALT Alkaline Phosphatase Total Creatine Kinase Troponin I High Sens B-Natriuretic Peptide Total Protein Albumin TSH Free Cortisol Urine Color Urine Appearance Urine pH Ur Specific [place] Urine Protein Urine Glucose (UA) Urine Ketones Urine Blood Urine Nitrite Ur Leukocyte Esterase Urine RBC Urine WBC Ur Squamous Epith Cells Urine Bacteria Hyaline Casts Urine Osmolality U Random Total Protein Ur Random Sodium Urine Creatinine Urine Microalbumin Microalb/Creat Ratio C. difficile Tox B Gene COVID-19 ([facility]) COVID-19 Clin Com Influenza Type A (PCR) Influenza Type B (PCR) RSV RNA Qual (PCR) SARS-CoV-2 RNA (RT-PCR) 06/27/22 06/27/22 06/27/22 05:17 05:17 07:03 WBC 8.5 RBC 4.84 Hgb 13.4 L Hct 39.8 L MCV 82.2 MCH 27.7 MCHC 33.7 RDW 14.6 Plt Count 330 D MPV 8.6 L Immature Gran % (Auto) Neut % (Auto) Lymph % (Auto) [place] % (Auto) Eos % (Auto) Baso % (Auto) Lymph # (Auto) [place] # (Auto) Eos # (Auto) Baso # (Auto) Abs Immat Gran (auto) Absolute Neuts (auto) Absolute Nucleated RBC 0.000 Nucleated RBC % (auto) 0.0 PT INR D-Dimer High Sensitivty Sodium 127 L Potassium 3.9 Chloride 94 L Carbon Dioxide 23 Anion Gap 14 BUN 16 Creatinine 0.57 Estim Creat Clear Calc 105.0 Estimated GFR > 60 POC Glucose 99 Random Glucose Fasting Glucose 102 H Osmolality Calcium 8.3 L Magnesium Total Bilirubin AST ALT Alkaline Phosphatase Total Creatine Kinase Troponin I High Sens B-Natriuretic Peptide Total Protein Albumin TSH Free Cortisol Urine Color Urine Appearance Urine pH Ur Specific [place] Urine Protein Urine Glucose (UA) Urine Ketones Urine Blood Urine Nitrite Ur Leukocyte Esterase Urine RBC Urine WBC Ur Squamous Epith Cells Urine Bacteria Hyaline Casts Urine Osmolality U Random Total Protein Ur Random Sodium Urine Creatinine Urine Microalbumin Microalb/Creat Ratio C. difficile Tox B Gene COVID-19 ([facility]) COVID-19 Clin Com Influenza Type A (PCR) Influenza Type B (PCR) RSV RNA Qual (PCR) SARS-CoV-2 RNA (RT-PCR) 06/27/22 06/27/22 06/27/22 11:04 15:47 18:15 WBC RBC Hgb Hct MCV MCH MCHC RDW Plt Count MPV Immature Gran % (Auto) Neut % (Auto) Lymph % (Auto) [place] % (Auto) Eos % (Auto) Baso % (Auto) Lymph # (Auto) [place] # (Auto) Eos # (Auto) Baso # (Auto) Abs Immat Gran (auto) Absolute Neuts (auto) Absolute Nucleated RBC Nucleated RBC % (auto) PT INR D-Dimer High Sensitivty Sodium Potassium Chloride Carbon Dioxide Anion Gap BUN Creatinine Estim Creat Clear Calc Estimated GFR POC Glucose 131 H 138 H Random Glucose Fasting Glucose Osmolality Calcium Magnesium Total Bilirubin AST ALT Alkaline Phosphatase Total Creatine Kinase Troponin I High Sens B-Natriuretic Peptide Total Protein Albumin TSH Free Cortisol Urine Color Urine Appearance Urine pH Ur Specific [place] Urine Protein Urine Glucose (UA) Urine Ketones Urine Blood Urine Nitrite Ur Leukocyte Esterase Urine RBC Urine WBC Ur Squamous Epith Cells Urine Bacteria Hyaline Casts Urine Osmolality U Random Total Protein 54 H Ur Random Sodium Urine Creatinine 61.32 Urine Microalbumin 411.0 Microalb/Creat Ratio 670.2 C. difficile Tox B Gene COVID-19 ([facility]) COVID-19 Clin Com Influenza Type A (PCR) Influenza Type B (PCR) RSV RNA Qual (PCR) SARS-CoV-2 RNA (RT-PCR) 06/27/22 06/28/22 06/28/22 19:20 05:12 05:12 WBC 9.0 RBC 5.17 Hgb 13.9 L Hct 42.1 MCV 81.4 MCH 26.9 L MCHC 33.0 RDW 14.6 Plt Count 338 MPV 8.3 L Immature Gran % (Auto) Neut % (Auto) Lymph % (Auto) [place] % (Auto) Eos % (Auto) Baso % (Auto) Lymph # (Auto) [place] # (Auto) Eos # (Auto) Baso # (Auto) Abs Immat Gran (auto) Absolute Neuts (auto) Absolute Nucleated RBC 0.000 Nucleated RBC % (auto) 0.0 PT INR D-Dimer High Sensitivty Sodium 129 L Potassium 4.0 Chloride 92 L Carbon Dioxide 26 Anion Gap 15 BUN 11 Creatinine 0.59 Estim Creat Clear Calc 101.5 Estimated GFR > 60 POC Glucose 113 Random Glucose Fasting Glucose 44 L* Osmolality Calcium 8.6 Magnesium Total Bilirubin AST ALT Alkaline Phosphatase Total Creatine Kinase Troponin I High Sens B-Natriuretic Peptide Total Protein Albumin TSH Free Cortisol Urine Color Urine Appearance Urine pH Ur Specific [place] Urine Protein Urine Glucose (UA) Urine Ketones Urine Blood Urine Nitrite Ur Leukocyte Esterase Urine RBC Urine WBC Ur Squamous Epith Cells Urine Bacteria Hyaline Casts Urine Osmolality U Random Total Protein Ur Random Sodium Urine Creatinine Urine Microalbumin Microalb/Creat Ratio C. difficile Tox B Gene COVID-19 ([facility]) COVID-19 Clin Com Influenza Type A (PCR) Influenza Type B (PCR) RSV RNA Qual (PCR) SARS-CoV-2 RNA (RT-PCR) 06/28/22 06/28/22 06/28/22 07:27 11:15 15:16 WBC RBC Hgb Hct MCV MCH MCHC RDW Plt Count MPV Immature Gran % (Auto) Neut % (Auto) Lymph % (Auto) [place] % (Auto) Eos % (Auto) Baso % (Auto) Lymph # (Auto) [place] # (Auto) Eos # (Auto) Baso # (Auto) Abs Immat Gran (auto) Absolute Neuts (auto) Absolute Nucleated RBC Nucleated RBC % (auto) PT INR D-Dimer High Sensitivty Sodium Potassium Chloride Carbon Dioxide Anion Gap BUN Creatinine Estim Creat Clear Calc Estimated GFR POC Glucose 90 122 H 149 H Random Glucose Fasting Glucose Osmolality Calcium Magnesium Total Bilirubin AST ALT Alkaline Phosphatase Total Creatine Kinase Troponin I High Sens B-Natriuretic Peptide Total Protein Albumin TSH Free Cortisol Urine Color Urine Appearance Urine pH Ur Specific [place] Urine Protein Urine Glucose (UA) Urine Ketones Urine Blood Urine Nitrite Ur Leukocyte Esterase Urine RBC Urine WBC Ur Squamous Epith Cells Urine Bacteria Hyaline Casts Urine Osmolality U Random Total Protein Ur Random Sodium Urine Creatinine Urine Microalbumin Microalb/Creat Ratio C. difficile Tox B Gene COVID-19 ([facility]) COVID-19 Clin Com Influenza Type A (PCR) Influenza Type B (PCR) RSV RNA Qual (PCR) SARS-CoV-2 RNA (RT-PCR) 06/28/22 06/29/22 06/29/22 19:43 05:45 05:45 WBC 6.5 RBC 4.87 Hgb 13.4 L Hct 40.3 L MCV 82.8 MCH 27.5 MCHC 33.3 RDW 14.6 Plt Count 280 MPV 8.4 L Immature Gran % (Auto) Neut % (Auto) Lymph % (Auto) [place] % (Auto) Eos % (Auto) Baso % (Auto) Lymph # (Auto) [place] # (Auto) Eos # (Auto) Baso # (Auto) Abs Immat Gran (auto) Absolute Neuts (auto) Absolute Nucleated RBC 0.000 Nucleated RBC % (auto) 0.0 PT INR D-Dimer High Sensitivty Sodium 126 L Potassium 4.1 Chloride 92 L Carbon Dioxide 25 Anion Gap 13 BUN 13 Creatinine 0.57 Estim Creat Clear Calc 105.0 Estimated GFR > 60 POC Glucose 193 H Random Glucose Fasting Glucose 119 H Osmolality Calcium 8.3 L Magnesium Total Bilirubin AST ALT Alkaline Phosphatase Total Creatine Kinase Troponin I High Sens B-Natriuretic Peptide Total Protein Albumin TSH Free Cortisol Urine Color Urine Appearance Urine pH Ur Specific [place] Urine Protein Urine Glucose (UA) Urine Ketones Urine Blood Urine Nitrite Ur Leukocyte Esterase Urine RBC Urine WBC Ur Squamous Epith Cells Urine Bacteria Hyaline Casts Urine Osmolality U Random Total Protein Ur Random Sodium Urine Creatinine Urine Microalbumin Microalb/Creat Ratio C. difficile Tox B Gene COVID-19 ([facility]) COVID-19 Clin Com Influenza Type A (PCR) Influenza Type B (PCR) RSV RNA Qual (PCR) SARS-CoV-2 RNA (RT-PCR) 06/29/22 06/29/22 06/29/22 08:08 11:24 16:08 WBC RBC Hgb Hct MCV MCH MCHC RDW Plt Count MPV Immature Gran % (Auto) Neut % (Auto) Lymph % (Auto) [place] % (Auto) Eos % (Auto) Baso % (Auto) Lymph # (Auto) [place] # (Auto) Eos # (Auto) Baso # (Auto) Abs Immat Gran (auto) Absolute Neuts (auto) Absolute Nucleated RBC Nucleated RBC % (auto) PT INR D-Dimer High Sensitivty Sodium Potassium Chloride Carbon Dioxide Anion Gap BUN Creatinine Estim Creat Clear Calc Estimated GFR POC Glucose 124 H 173 H 96 Random Glucose Fasting Glucose Osmolality Calcium Magnesium Total Bilirubin AST ALT Alkaline Phosphatase Total Creatine Kinase Troponin I High Sens B-Natriuretic Peptide Total Protein Albumin TSH Free Cortisol Urine Color Urine Appearance Urine pH Ur Specific [place] Urine Protein Urine Glucose (UA) Urine Ketones Urine Blood Urine Nitrite Ur Leukocyte Esterase Urine RBC Urine WBC Ur Squamous Epith Cells Urine Bacteria Hyaline Casts Urine Osmolality U Random Total Protein Ur Random Sodium Urine Creatinine Urine Microalbumin Microalb/Creat Ratio C. difficile Tox B Gene COVID-19 ([facility]) COVID-19 Clin Com Influenza Type A (PCR) Influenza Type B (PCR) RSV RNA Qual (PCR) SARS-CoV-2 RNA (RT-PCR) 06/29/22 06/30/22 06/30/22 19:04 07:54 09:23 WBC 9.1 RBC 5.10 Hgb 13.9 L Hct 42.0 MCV 82.4 MCH 27.3 MCHC 33.1 RDW 14.8 Plt Count 300 MPV 8.4 L Immature Gran % (Auto) 0.3 Neut % (Auto) 73.0 Lymph % (Auto) 17.9 L [place] % (Auto) 8.1 Eos % (Auto) 0.3 Baso % (Auto) 0.4 Lymph # (Auto) 1.6 [place] # (Auto) 0.7 Eos # (Auto) 0.0 Baso # (Auto) 0.0 Abs Immat Gran (auto) 0.03 Absolute Neuts (auto) 6.6 Absolute Nucleated RBC 0.000 Nucleated RBC % (auto) 0.0 PT INR D-Dimer High Sensitivty Sodium Potassium Chloride Carbon Dioxide Anion Gap BUN Creatinine Estim Creat Clear Calc Estimated GFR POC Glucose 130 H 62 Random Glucose Fasting Glucose Osmolality Calcium Magnesium Total Bilirubin AST ALT Alkaline Phosphatase Total Creatine Kinase Troponin I High Sens B-Natriuretic Peptide Total Protein Albumin TSH Free Cortisol Urine Color Urine Appearance Urine pH Ur Specific [place] Urine Protein Urine Glucose (UA) Urine Ketones Urine Blood Urine Nitrite Ur Leukocyte Esterase Urine RBC Urine WBC Ur Squamous Epith Cells Urine Bacteria Hyaline Casts Urine Osmolality U Random Total Protein Ur Random Sodium Urine Creatinine Urine Microalbumin Microalb/Creat Ratio C. difficile Tox B Gene COVID-19 ([facility]) COVID-19 Clin Com Influenza Type A (PCR) Influenza Type B (PCR) RSV RNA Qual (PCR) SARS-CoV-2 RNA (RT-PCR) 06/30/22 06/30/22 06/30/22 09:23 11:24 15:28 WBC RBC Hgb Hct MCV MCH MCHC RDW Plt Count MPV Immature Gran % (Auto) Neut % (Auto) Lymph % (Auto) [place] % (Auto) Eos % (Auto) Baso % (Auto) Lymph # (Auto) [place] # (Auto) Eos # (Auto) Baso # (Auto) Abs Immat Gran (auto) Absolute Neuts (auto) Absolute Nucleated RBC Nucleated RBC % (auto) PT INR D-Dimer High Sensitivty Sodium 130 L Potassium 4.2 Chloride 95 L Carbon Dioxide 25 Anion Gap 14 BUN 32 H D Creatinine 0.65 Estim Creat Clear Calc 92.1 Estimated GFR > 60 POC Glucose 139 H 133 H Random Glucose 147 H D Fasting Glucose Osmolality Calcium 8.6 Magnesium Total Bilirubin AST ALT Alkaline Phosphatase Total Creatine Kinase Troponin I High Sens B-Natriuretic Peptide Total Protein Albumin TSH Free Cortisol Urine Color Urine Appearance Urine pH Ur Specific [place] Urine Protein Urine Glucose (UA) Urine Ketones Urine Blood Urine Nitrite Ur Leukocyte Esterase Urine RBC Urine WBC Ur Squamous Epith Cells Urine Bacteria Hyaline Casts Urine Osmolality U Random Total Protein Ur Random Sodium Urine Creatinine Urine Microalbumin Microalb/Creat Ratio C. difficile Tox B Gene COVID-19 ([facility]) COVID-19 Clin Com Influenza Type A (PCR) Influenza Type B (PCR) RSV RNA Qual (PCR) SARS-CoV-2 RNA (RT-PCR) 06/30/22 07/01/22 07/01/22 19:53 05:39 05:39 WBC 9.2 RBC 5.05 Hgb 13.7 L Hct 41.3 L MCV 81.8 MCH 27.1 MCHC 33.2 RDW 14.8 Plt Count 273 MPV 8.0 L Immature Gran % (Auto) Neut % (Auto) Lymph % (Auto) [place] % (Auto) Eos % (Auto) Baso % (Auto) Lymph # (Auto) [place] # (Auto) Eos # (Auto) Baso # (Auto) Abs Immat Gran (auto) Absolute Neuts (auto) Absolute Nucleated RBC 0.000 Nucleated RBC % (auto) 0.0 PT INR D-Dimer High Sensitivty Sodium 128 L Potassium 4.1 Chloride 96 Carbon Dioxide 22 Anion Gap 14 BUN 19 H Creatinine 0.63 Estim Creat Clear Calc 95.0 Estimated GFR > 60 POC Glucose 244 H Random Glucose Fasting Glucose 111 H D Osmolality Calcium 8.3 L Magnesium Total Bilirubin AST ALT Alkaline Phosphatase Total Creatine Kinase Troponin I High Sens B-Natriuretic Peptide Total Protein Albumin TSH Free Cortisol Urine Color Urine Appearance Urine pH Ur Specific [place] Urine Protein Urine Glucose (UA) Urine Ketones Urine Blood Urine Nitrite Ur Leukocyte Esterase Urine RBC Urine WBC Ur Squamous Epith Cells Urine Bacteria Hyaline Casts Urine Osmolality U Random Total Protein Ur Random Sodium Urine Creatinine Urine Microalbumin Microalb/Creat Ratio C. difficile Tox B Gene COVID-19 ([facility]) COVID-19 Clin Com Influenza Type A (PCR) Influenza Type B (PCR) RSV RNA Qual (PCR) SARS-CoV-2 RNA (RT-PCR) 07/01/22 07/01/22 07/01/22 07:32 10:55 16:18 WBC RBC Hgb Hct MCV MCH MCHC RDW Plt Count MPV Immature Gran % (Auto) Neut % (Auto) Lymph % (Auto) [place] % (Auto) Eos % (Auto) Baso % (Auto) Lymph # (Auto) [place] # (Auto) Eos # (Auto) Baso # (Auto) Abs Immat Gran (auto) Absolute Neuts (auto) Absolute Nucleated RBC Nucleated RBC % (auto) PT INR D-Dimer High Sensitivty Sodium Potassium Chloride Carbon Dioxide Anion Gap BUN Creatinine Estim Creat Clear Calc Estimated GFR POC Glucose 105 229 H 104 Random Glucose Fasting Glucose Osmolality Calcium Magnesium Total Bilirubin AST ALT Alkaline Phosphatase Total Creatine Kinase Troponin I High Sens B-Natriuretic Peptide Total Protein Albumin TSH Free Cortisol Urine Color Urine Appearance Urine pH Ur Specific [place] Urine Protein Urine Glucose (UA) Urine Ketones Urine Blood Urine Nitrite Ur Leukocyte Esterase Urine RBC Urine WBC Ur Squamous Epith Cells Urine Bacteria Hyaline Casts Urine Osmolality U Random Total Protein Ur Random Sodium Urine Creatinine Urine Microalbumin Microalb/Creat Ratio C. difficile Tox B Gene COVID-19 ([facility]) COVID-19 Clin Com Influenza Type A (PCR) Influenza Type B (PCR) RSV RNA Qual (PCR) SARS-CoV-2 RNA (RT-PCR) 07/01/22 07/02/22 07/02/22 19:15 05:38 05:38 WBC 9.5 RBC 4.78 Hgb 13.2 L Hct 39.2 L MCV 82.0 MCH 27.6 MCHC 33.7 RDW 14.9 Plt Count 233 MPV 8.0 L Immature Gran % (Auto) Neut % (Auto) Lymph % (Auto) [place] % (Auto) Eos % (Auto) Baso % (Auto) Lymph # (Auto) [place] # (Auto) Eos # (Auto) Baso # (Auto) Abs Immat Gran (auto) Absolute Neuts (auto) Absolute Nucleated RBC 0.000 Nucleated RBC % (auto) 0.0 PT INR D-Dimer High Sensitivty Sodium 131 L Potassium 3.9 Chloride 98 Carbon Dioxide 25 Anion Gap 12 BUN 22 H Creatinine 0.60 Estim Creat Clear Calc 99.8 Estimated GFR > 60 POC Glucose 165 H Random Glucose Fasting Glucose 103 H Osmolality Calcium 8.5 Magnesium Total Bilirubin AST ALT Alkaline Phosphatase Total Creatine Kinase Troponin I High Sens B-Natriuretic Peptide Total Protein Albumin TSH Free Cortisol Urine Color Urine Appearance Urine pH Ur Specific [place] Urine Protein Urine Glucose (UA) Urine Ketones Urine Blood Urine Nitrite Ur Leukocyte Esterase Urine RBC Urine WBC Ur Squamous Epith Cells Urine Bacteria Hyaline Casts Urine Osmolality U Random Total Protein Ur Random Sodium Urine Creatinine Urine Microalbumin Microalb/Creat Ratio C. difficile Tox B Gene COVID-19 ([facility]) COVID-19 Clin Com Influenza Type A (PCR) Influenza Type B (PCR) RSV RNA Qual (PCR) SARS-CoV-2 RNA (RT-PCR) 07/02/22 07/02/22 07/02/22 07:21 11:27 15:38 WBC RBC Hgb Hct MCV MCH MCHC RDW Plt Count MPV Immature Gran % (Auto) Neut % (Auto) Lymph % (Auto) [place] % (Auto) Eos % (Auto) Baso % (Auto) Lymph # (Auto) [place] # (Auto) Eos # (Auto) Baso # (Auto) Abs Immat Gran (auto) Absolute Neuts (auto) Absolute Nucleated RBC Nucleated RBC % (auto) PT INR D-Dimer High Sensitivty Sodium Potassium Chloride Carbon Dioxide Anion Gap BUN Creatinine Estim Creat Clear Calc Estimated GFR POC Glucose 93 236 H 235 H Random Glucose Fasting Glucose Osmolality Calcium Magnesium Total Bilirubin AST ALT Alkaline Phosphatase Total Creatine Kinase Troponin I High Sens B-Natriuretic Peptide Total Protein Albumin TSH Free Cortisol Urine Color Urine Appearance Urine pH Ur Specific [place] Urine Protein Urine Glucose (UA) Urine Ketones Urine Blood Urine Nitrite Ur Leukocyte Esterase Urine RBC Urine WBC Ur Squamous Epith Cells Urine Bacteria Hyaline Casts Urine Osmolality U Random Total Protein Ur Random Sodium Urine Creatinine Urine Microalbumin Microalb/Creat Ratio C. difficile Tox B Gene COVID-19 ([facility]) COVID-19 Clin Com Influenza Type A (PCR) Influenza Type B (PCR) RSV RNA Qual (PCR) SARS-CoV-2 RNA (RT-PCR) 07/02/22 07/03/22 07/03/22 19:21 05:02 07:28 WBC RBC Hgb Hct MCV MCH MCHC RDW Plt Count MPV Immature Gran % (Auto) Neut % (Auto) Lymph % (Auto) [place] % (Auto) Eos % (Auto) Baso % (Auto) Lymph # (Auto) [place] # (Auto) Eos # (Auto) Baso # (Auto) Abs Immat Gran (auto) Absolute Neuts (auto) Absolute Nucleated RBC Nucleated RBC % (auto) PT INR D-Dimer High Sensitivty Sodium 132 L Potassium 3.9 Chloride 97 Carbon Dioxide 27 Anion Gap 12 BUN 33 H Creatinine 0.65 Estim Creat Clear Calc 92.1 Estimated GFR > 60 POC Glucose 294 H 97 Random Glucose 81 Fasting Glucose Osmolality Calcium 8.5 Magnesium Total Bilirubin AST ALT Alkaline Phosphatase Total Creatine Kinase Troponin I High Sens B-Natriuretic Peptide Total Protein Albumin TSH Free Cortisol Urine Color Urine Appearance Urine pH Ur Specific [place] Urine Protein Urine Glucose (UA) Urine Ketones Urine Blood Urine Nitrite Ur Leukocyte Esterase Urine RBC Urine WBC Ur Squamous Epith Cells Urine Bacteria Hyaline Casts Urine Osmolality U Random Total Protein Ur Random Sodium Urine Creatinine Urine Microalbumin Microalb/Creat Ratio C. difficile Tox B Gene COVID-19 ([facility]) COVID-19 Clin Com Influenza Type A (PCR) Influenza Type B (PCR) RSV RNA Qual (PCR) SARS-CoV-2 RNA (RT-PCR) 07/03/22 07/03/22 07/03/22 11:12 15:39 19:27 WBC RBC Hgb Hct MCV MCH MCHC RDW Plt Count MPV Immature Gran % (Auto) Neut % (Auto) Lymph % (Auto) [place] % (Auto) Eos % (Auto) Baso % (Auto) Lymph # (Auto) [place] # (Auto) Eos # (Auto) Baso # (Auto) Abs Immat Gran (auto) Absolute Neuts (auto) Absolute Nucleated RBC Nucleated RBC % (auto) PT INR D-Dimer High Sensitivty Sodium Potassium Chloride Carbon Dioxide Anion Gap BUN Creatinine Estim Creat Clear Calc Estimated GFR POC Glucose 323 H 240 H 123 H Random Glucose Fasting Glucose Osmolality Calcium Magnesium Total Bilirubin AST ALT Alkaline Phosphatase Total Creatine Kinase Troponin I High Sens B-Natriuretic Peptide Total Protein Albumin TSH Free Cortisol Urine Color Urine Appearance Urine pH Ur Specific [place] Urine Protein Urine Glucose (UA) Urine Ketones Urine Blood Urine Nitrite Ur Leukocyte Esterase Urine RBC Urine WBC Ur Squamous Epith Cells Urine Bacteria Hyaline Casts Urine Osmolality U Random Total Protein Ur Random Sodium Urine Creatinine Urine Microalbumin Microalb/Creat Ratio C. difficile Tox B Gene COVID-19 ([facility]) COVID-19 Clin Com Influenza Type A (PCR) Influenza Type B (PCR) RSV RNA Qual (PCR) SARS-CoV-2 RNA (RT-PCR) 07/04/22 07/04/22 07/04/22 07:42 11:19 15:44 WBC RBC Hgb Hct MCV MCH MCHC RDW Plt Count MPV Immature Gran % (Auto) Neut % (Auto) Lymph % (Auto) [place] % (Auto) Eos % (Auto) Baso % (Auto) Lymph # (Auto) [place] # (Auto) Eos # (Auto) Baso # (Auto) Abs Immat Gran (auto) Absolute Neuts (auto) Absolute Nucleated RBC Nucleated RBC % (auto) PT INR D-Dimer High Sensitivty Sodium Potassium Chloride Carbon Dioxide Anion Gap BUN Creatinine Estim Creat Clear Calc Estimated GFR POC Glucose 86 208 H 229 H Random Glucose Fasting Glucose Osmolality Calcium Magnesium Total Bilirubin AST ALT Alkaline Phosphatase Total Creatine Kinase Troponin I High Sens B-Natriuretic Peptide Total Protein Albumin TSH Free Cortisol Urine Color Urine Appearance Urine pH Ur Specific [place] Urine Protein Urine Glucose (UA) Urine Ketones Urine Blood Urine Nitrite Ur Leukocyte Esterase Urine RBC Urine WBC Ur Squamous Epith Cells Urine Bacteria Hyaline Casts Urine Osmolality U Random Total Protein Ur Random Sodium Urine Creatinine Urine Microalbumin Microalb/Creat Ratio C. difficile Tox B Gene COVID-19 ([facility]) COVID-19 Clin Com Influenza Type A (PCR) Influenza Type B (PCR) RSV RNA Qual (PCR) SARS-CoV-2 RNA (RT-PCR) 07/04/22 07/05/22 07/05/22 19:39 07:40 11:28 WBC RBC Hgb Hct MCV MCH MCHC RDW Plt Count MPV Immature Gran % (Auto) Neut % (Auto) Lymph % (Auto) [place] % (Auto) Eos % (Auto) Baso % (Auto) Lymph # (Auto) [place] # (Auto) Eos # (Auto) Baso # (Auto) Abs Immat Gran (auto) Absolute Neuts (auto) Absolute Nucleated RBC Nucleated RBC % (auto) PT INR D-Dimer High Sensitivty Sodium Potassium Chloride Carbon Dioxide Anion Gap BUN Creatinine Estim Creat Clear Calc Estimated GFR POC Glucose 138 H 132 H 170 H Random Glucose Fasting Glucose Osmolality Calcium Magnesium Total Bilirubin AST ALT Alkaline Phosphatase Total Creatine Kinase Troponin I High Sens B-Natriuretic Peptide Total Protein Albumin TSH Free Cortisol Urine Color Urine Appearance Urine pH Ur Specific [place] Urine Protein Urine Glucose (UA) Urine Ketones Urine Blood Urine Nitrite Ur Leukocyte Esterase Urine RBC Urine WBC Ur Squamous Epith Cells Urine Bacteria Hyaline Casts Urine Osmolality U Random Total Protein Ur Random Sodium Urine Creatinine Urine Microalbumin Microalb/Creat Ratio C. difficile Tox B Gene COVID-19 ([facility]) COVID-19 Clin Com Influenza Type A (PCR) Influenza Type B (PCR) RSV RNA Qual (PCR) SARS-CoV-2 RNA (RT-PCR) 07/05/22 07/05/22 07/06/22 14:56 18:57 07:14 WBC RBC Hgb Hct MCV MCH MCHC RDW Plt Count MPV Immature Gran % (Auto) Neut % (Auto) Lymph % (Auto) [place] % (Auto) Eos % (Auto) Baso % (Auto) Lymph # (Auto) [place] # (Auto) Eos # (Auto) Baso # (Auto) Abs Immat Gran (auto) Absolute Neuts (auto) Absolute Nucleated RBC Nucleated RBC % (auto) PT INR D-Dimer High Sensitivty Sodium Potassium Chloride Carbon Dioxide Anion Gap BUN Creatinine Estim Creat Clear Calc Estimated GFR POC Glucose 96 127 H 99 Random Glucose Fasting Glucose Osmolality Calcium Magnesium Total Bilirubin AST ALT Alkaline Phosphatase Total Creatine Kinase Troponin I High Sens B-Natriuretic Peptide Total Protein Albumin TSH Free Cortisol Urine Color Urine Appearance Urine pH Ur Specific [place] Urine Protein Urine Glucose (UA) Urine Ketones Urine Blood Urine Nitrite Ur Leukocyte Esterase Urine RBC Urine WBC Ur Squamous Epith Cells Urine Bacteria Hyaline Casts Urine Osmolality U Random Total Protein Ur Random Sodium Urine Creatinine Urine Microalbumin Microalb/Creat Ratio C. difficile Tox B Gene COVID-19 ([facility]) COVID-19 Clin Com Influenza Type A (PCR) Influenza Type B (PCR) RSV RNA Qual (PCR) SARS-CoV-2 RNA (RT-PCR) 07/06/22 07/06/22 07/06/22 11:03 15:21 20:13 WBC RBC Hgb Hct MCV MCH MCHC RDW Plt Count MPV Immature Gran % (Auto) Neut % (Auto) Lymph % (Auto) [place] % (Auto) Eos % (Auto) Baso % (Auto) Lymph # (Auto) [place] # (Auto) Eos # (Auto) Baso # (Auto) Abs Immat Gran (auto) Absolute Neuts (auto) Absolute Nucleated RBC Nucleated RBC % (auto) PT INR D-Dimer High Sensitivty Sodium Potassium Chloride Carbon Dioxide Anion Gap BUN Creatinine Estim Creat Clear Calc Estimated GFR POC Glucose 234 H 173 H 166 H Random Glucose Fasting Glucose Osmolality Calcium Magnesium Total Bilirubin AST ALT Alkaline Phosphatase Total Creatine Kinase Troponin I High Sens B-Natriuretic Peptide Total Protein Albumin TSH Free Cortisol Urine Color Urine Appearance Urine pH Ur Specific [place] Urine Protein Urine Glucose (UA) Urine Ketones Urine Blood Urine Nitrite Ur Leukocyte Esterase Urine RBC Urine WBC Ur Squamous Epith Cells Urine Bacteria Hyaline Casts Urine Osmolality U Random Total Protein Ur Random Sodium Urine Creatinine Urine Microalbumin Microalb/Creat Ratio C. difficile Tox B Gene COVID-19 ([facility]) COVID-19 Clin Com Influenza Type A (PCR) Influenza Type B (PCR) RSV RNA Qual (PCR) SARS-CoV-2 RNA (RT-PCR) 07/07/22 07/07/22 07/07/22 07:40 11:05 15:20 WBC RBC Hgb Hct MCV MCH MCHC RDW Plt Count MPV Immature Gran % (Auto) Neut % (Auto) Lymph % (Auto) [place] % (Auto) Eos % (Auto) Baso % (Auto) Lymph # (Auto) [place] # (Auto) Eos # (Auto) Baso # (Auto) Abs Immat Gran (auto) Absolute Neuts (auto) Absolute Nucleated RBC Nucleated RBC % (auto) PT INR D-Dimer High Sensitivty Sodium Potassium Chloride Carbon Dioxide Anion Gap BUN Creatinine Estim Creat Clear Calc Estimated GFR POC Glucose 104 199 H 164 H Random Glucose Fasting Glucose Osmolality Calcium Magnesium Total Bilirubin AST ALT Alkaline Phosphatase Total Creatine Kinase Troponin I High Sens B-Natriuretic Peptide Total Protein Albumin TSH Free Cortisol Urine Color Urine Appearance Urine pH Ur Specific [place] Urine Protein Urine Glucose (UA) Urine Ketones Urine Blood Urine Nitrite Ur Leukocyte Esterase Urine RBC Urine WBC Ur Squamous Epith Cells Urine Bacteria Hyaline Casts Urine Osmolality U Random Total Protein Ur Random Sodium Urine Creatinine Urine Microalbumin Microalb/Creat Ratio C. difficile Tox B Gene COVID-19 ([facility]) COVID-19 Clin Com Influenza Type A (PCR) Influenza Type B (PCR) RSV RNA Qual (PCR) SARS-CoV-2 RNA (RT-PCR) 07/07/22 07/08/22 07/08/22 19:42 06:10 07:24 WBC RBC Hgb Hct MCV MCH MCHC RDW Plt Count MPV Immature Gran % (Auto) Neut % (Auto) Lymph % (Auto) [place] % (Auto) Eos % (Auto) Baso % (Auto) Lymph # (Auto) [place] # (Auto) Eos # (Auto) Baso # (Auto) Abs Immat Gran (auto) Absolute Neuts (auto) Absolute Nucleated RBC Nucleated RBC % (auto) PT INR D-Dimer High Sensitivty Sodium 136 Potassium 4.1 Chloride 100 Carbon Dioxide 28 Anion Gap 12 BUN 18 H Creatinine 0.54 Estim Creat Clear Calc 110.9 Estimated GFR > 60 POC Glucose 127 H 76 Random Glucose 73 Fasting Glucose Osmolality Calcium 8.3 L Magnesium Total Bilirubin AST ALT Alkaline Phosphatase Total Creatine Kinase Troponin I High Sens B-Natriuretic Peptide Total Protein Albumin TSH Free Cortisol Urine Color Urine Appearance Urine pH Ur Specific [place] Urine Protein Urine Glucose (UA) Urine Ketones Urine Blood Urine Nitrite Ur Leukocyte Esterase Urine RBC Urine WBC Ur Squamous Epith Cells Urine Bacteria Hyaline Casts Urine Osmolality U Random Total Protein Ur Random Sodium Urine Creatinine Urine Microalbumin Microalb/Creat Ratio C. difficile Tox B Gene COVID-19 ([facility]) COVID-19 Clin Com Influenza Type A (PCR) Influenza Type B (PCR) RSV RNA Qual (PCR) SARS-CoV-2 RNA (RT-PCR) 07/08/22 07/08/22 07/08/22 10:35 16:01 19:58 WBC RBC Hgb Hct MCV MCH MCHC RDW Plt Count MPV Immature Gran % (Auto) Neut % (Auto) Lymph % (Auto) [place] % (Auto) Eos % (Auto) Baso % (Auto) Lymph # (Auto) [place] # (Auto) Eos # (Auto) Baso # (Auto) Abs Immat Gran (auto) Absolute Neuts (auto) Absolute Nucleated RBC Nucleated RBC % (auto) PT INR D-Dimer High Sensitivty Sodium Potassium Chloride Carbon Dioxide Anion Gap BUN Creatinine Estim Creat Clear Calc Estimated GFR POC Glucose 108 212 H 211 H Random Glucose Fasting Glucose Osmolality Calcium Magnesium Total Bilirubin AST ALT Alkaline Phosphatase Total Creatine Kinase Troponin I High Sens B-Natriuretic Peptide Total Protein Albumin TSH Free Cortisol Urine Color Urine Appearance Urine pH Ur Specific [place] Urine Protein Urine Glucose (UA) Urine Ketones Urine Blood Urine Nitrite Ur Leukocyte Esterase Urine RBC Urine WBC Ur Squamous Epith Cells Urine Bacteria Hyaline Casts Urine Osmolality U Random Total Protein Ur Random Sodium Urine Creatinine Urine Microalbumin Microalb/Creat Ratio C. difficile Tox B Gene COVID-19 ([facility]) COVID-19 Clin Com Influenza Type A (PCR) Influenza Type B (PCR) RSV RNA Qual (PCR) SARS-CoV-2 RNA (RT-PCR) 07/09/22 07/09/22 07/09/22 07:27 07:51 11:07 WBC RBC Hgb Hct MCV MCH MCHC RDW Plt Count MPV Immature Gran % (Auto) Neut % (Auto) Lymph % (Auto) [place] % (Auto) Eos % (Auto) Baso % (Auto) Lymph # (Auto) [place] # (Auto) Eos # (Auto) Baso # (Auto) Abs Immat Gran (auto) Absolute Neuts (auto) Absolute Nucleated RBC Nucleated RBC % (auto) PT INR D-Dimer High Sensitivty Sodium Potassium Chloride Carbon Dioxide Anion Gap BUN Creatinine Estim Creat Clear Calc Estimated GFR POC Glucose 52 L* 76 199 H Random Glucose Fasting Glucose Osmolality Calcium Magnesium Total Bilirubin AST ALT Alkaline Phosphatase Total Creatine Kinase Troponin I High Sens B-Natriuretic Peptide Total Protein Albumin TSH Free Cortisol Urine Color Urine Appearance Urine pH Ur Specific [place] Urine Protein Urine Glucose (UA) Urine Ketones Urine Blood Urine Nitrite Ur Leukocyte Esterase Urine RBC Urine WBC Ur Squamous Epith Cells Urine Bacteria Hyaline Casts Urine Osmolality U Random Total Protein Ur Random Sodium Urine Creatinine Urine Microalbumin Microalb/Creat Ratio C. difficile Tox B Gene COVID-19 ([facility]) COVID-19 Clin Com Influenza Type A (PCR) Influenza Type B (PCR) RSV RNA Qual (PCR) SARS-CoV-2 RNA (RT-PCR) 07/09/22 07/09/22 07/10/22 16:10 19:49 07:23 WBC RBC Hgb Hct MCV MCH MCHC RDW Plt Count MPV Immature Gran % (Auto) Neut % (Auto) Lymph % (Auto) [place] % (Auto) Eos % (Auto) Baso % (Auto) Lymph # (Auto) [place] # (Auto) Eos # (Auto) Baso # (Auto) Abs Immat Gran (auto) Absolute Neuts (auto) Absolute Nucleated RBC Nucleated RBC % (auto) PT INR D-Dimer High Sensitivty Sodium Potassium Chloride Carbon Dioxide Anion Gap BUN Creatinine Estim Creat Clear Calc Estimated GFR POC Glucose 261 H 251 H 125 H Random Glucose Fasting Glucose Osmolality Calcium Magnesium Total Bilirubin AST ALT Alkaline Phosphatase Total Creatine Kinase Troponin I High Sens B-Natriuretic Peptide Total Protein Albumin TSH Free Cortisol Urine Color Urine Appearance Urine pH Ur Specific [place] Urine Protein Urine Glucose (UA) Urine Ketones Urine Blood Urine Nitrite Ur Leukocyte Esterase Urine RBC Urine WBC Ur Squamous Epith Cells Urine Bacteria Hyaline Casts Urine Osmolality U Random Total Protein Ur Random Sodium Urine Creatinine Urine Microalbumin Microalb/Creat Ratio C. difficile Tox B Gene COVID-19 ([facility]) COVID-19 Clin Com Influenza Type A (PCR) Influenza Type B (PCR) RSV RNA Qual (PCR) SARS-CoV-2 RNA (RT-PCR) 07/10/22 07/10/22 07/10/22 11:45 15:55 20:26 WBC RBC Hgb Hct MCV MCH MCHC RDW Plt Count MPV Immature Gran % (Auto) Neut % (Auto) Lymph % (Auto) [place] % (Auto) Eos % (Auto) Baso % (Auto) Lymph # (Auto) [place] # (Auto) Eos # (Auto) Baso # (Auto) Abs Immat Gran (auto) Absolute Neuts (auto) Absolute Nucleated RBC Nucleated RBC % (auto) PT INR D-Dimer High Sensitivty Sodium Potassium Chloride Carbon Dioxide Anion Gap BUN Creatinine Estim Creat Clear Calc Estimated GFR POC Glucose 257 H 315 H 198 H Random Glucose Fasting Glucose Osmolality Calcium Magnesium Total Bilirubin AST ALT Alkaline Phosphatase Total Creatine Kinase Troponin I High Sens B-Natriuretic Peptide Total Protein Albumin TSH Free Cortisol Urine Color Urine Appearance Urine pH Ur Specific [place] Urine Protein Urine Glucose (UA) Urine Ketones Urine Blood Urine Nitrite Ur Leukocyte Esterase Urine RBC Urine WBC Ur Squamous Epith Cells Urine Bacteria Hyaline Casts Urine Osmolality U Random Total Protein Ur Random Sodium Urine Creatinine Urine Microalbumin Microalb/Creat Ratio C. difficile Tox B Gene COVID-19 ([facility]) COVID-19 Clin Com Influenza Type A (PCR) Influenza Type B (PCR) RSV RNA Qual (PCR) SARS-CoV-2 RNA (RT-PCR) 07/11/22 07/11/22 07/11/22 05:16 05:16 07:03 WBC 6.8 RBC 4.25 L Hgb 11.6 L Hct 35.7 L MCV 84.0 MCH 27.3 MCHC 32.5 RDW 15.0 Plt Count 143 L D MPV 9.0 L Immature Gran % (Auto) Neut % (Auto) Lymph % (Auto) [place] % (Auto) Eos % (Auto) Baso % (Auto) Lymph # (Auto) [place] # (Auto) Eos # (Auto) Baso # (Auto) Abs Immat Gran (auto) Absolute Neuts (auto) Absolute Nucleated RBC 0.000 Nucleated RBC % (auto) 0.0 PT INR D-Dimer High Sensitivty Sodium 134 L Potassium 4.4 Chloride 99 Carbon Dioxide 27 Anion Gap 12 BUN 23 H Creatinine 0.62 Estim Creat Clear Calc 96.6 Estimated GFR > 60 POC Glucose 277 H Random Glucose 194 H Fasting Glucose Osmolality Calcium 8.2 L Magnesium Total Bilirubin AST ALT Alkaline Phosphatase Total Creatine Kinase Troponin I High Sens B-Natriuretic Peptide Total Protein Albumin TSH Free Cortisol Urine Color Urine Appearance Urine pH Ur Specific [place] Urine Protein Urine Glucose (UA) Urine Ketones Urine Blood Urine Nitrite Ur Leukocyte Esterase Urine RBC Urine WBC Ur Squamous Epith Cells Urine Bacteria Hyaline Casts Urine Osmolality U Random Total Protein Ur Random Sodium Urine Creatinine Urine Microalbumin Microalb/Creat Ratio C. difficile Tox B Gene COVID-19 ([facility]) COVID-19 Clin Com Influenza Type A (PCR) Influenza Type B (PCR) RSV RNA Qual (PCR) SARS-CoV-2 RNA (RT-PCR) 07/11/22 07/11/22 07/11/22 11:16 16:08 19:43 WBC RBC Hgb Hct MCV MCH MCHC RDW Plt Count MPV Immature Gran % (Auto) Neut % (Auto) Lymph % (Auto) [place] % (Auto) Eos % (Auto) Baso % (Auto) Lymph # (Auto) [place] # (Auto) Eos # (Auto) Baso # (Auto) Abs Immat Gran (auto) Absolute Neuts (auto) Absolute Nucleated RBC Nucleated RBC % (auto) PT INR D-Dimer High Sensitivty Sodium Potassium Chloride Carbon Dioxide Anion Gap BUN Creatinine Estim Creat Clear Calc Estimated GFR POC Glucose 247 H 223 H 275 H Random Glucose Fasting Glucose Osmolality Calcium Magnesium Total Bilirubin AST ALT Alkaline Phosphatase Total Creatine Kinase Troponin I High Sens B-Natriuretic Peptide Total Protein Albumin TSH Free Cortisol Urine Color Urine Appearance Urine pH Ur Specific [place] Urine Protein Urine Glucose (UA) Urine Ketones Urine Blood Urine Nitrite Ur Leukocyte Esterase Urine RBC Urine WBC Ur Squamous Epith Cells Urine Bacteria Hyaline Casts Urine Osmolality U Random Total Protein Ur Random Sodium Urine Creatinine Urine Microalbumin Microalb/Creat Ratio C. difficile Tox B Gene COVID-19 ([facility]) COVID-19 Clin Com Influenza Type A (PCR) Influenza Type B (PCR) RSV RNA Qual (PCR) SARS-CoV-2 RNA (RT-PCR) 07/12/22 07/12/22 07/12/22 07:52 08:01 11:16 WBC RBC Hgb Hct MCV MCH MCHC RDW Plt Count MPV Immature Gran % (Auto) Neut % (Auto) Lymph % (Auto) [place] % (Auto) Eos % (Auto) Baso % (Auto) Lymph # (Auto) [place] # (Auto) Eos # (Auto) Baso # (Auto) Abs Immat Gran (auto) Absolute Neuts (auto) Absolute Nucleated RBC Nucleated RBC % (auto) PT INR D-Dimer High Sensitivty Sodium Potassium Chloride Carbon Dioxide Anion Gap BUN Creatinine Estim Creat Clear Calc Estimated GFR POC Glucose 133 H 130 H 199 H Random Glucose Fasting Glucose Osmolality Calcium Magnesium Total Bilirubin AST ALT Alkaline Phosphatase Total Creatine Kinase Troponin I High Sens B-Natriuretic Peptide Total Protein Albumin TSH Free Cortisol Urine Color Urine Appearance Urine pH Ur Specific [place] Urine Protein Urine Glucose (UA) Urine Ketones Urine Blood Urine Nitrite Ur Leukocyte Esterase Urine RBC Urine WBC Ur Squamous Epith Cells Urine Bacteria Hyaline Casts Urine Osmolality U Random Total Protein Ur Random Sodium Urine Creatinine Urine Microalbumin Microalb/Creat Ratio C. difficile Tox B Gene COVID-19 ([facility]) COVID-19 Clin Com Influenza Type A (PCR) Influenza Type B (PCR) RSV RNA Qual (PCR) SARS-CoV-2 RNA (RT-PCR) 07/12/22 07/12/22 07/13/22 16:08 20:01 07:27 WBC RBC Hgb Hct MCV MCH MCHC RDW Plt Count MPV Immature Gran % (Auto) Neut % (Auto) Lymph % (Auto) [place] % (Auto) Eos % (Auto) Baso % (Auto) Lymph # (Auto) [place] # (Auto) Eos # (Auto) Baso # (Auto) Abs Immat Gran (auto) Absolute Neuts (auto) Absolute Nucleated RBC Nucleated RBC % (auto) PT INR D-Dimer High Sensitivty Sodium Potassium Chloride Carbon Dioxide Anion Gap BUN Creatinine Estim Creat Clear Calc Estimated GFR POC Glucose 177 H 207 H 134 H Random Glucose Fasting Glucose Osmolality Calcium Magnesium Total Bilirubin AST ALT Alkaline Phosphatase Total Creatine Kinase Troponin I High Sens B-Natriuretic Peptide Total Protein Albumin TSH Free Cortisol Urine Color Urine Appearance Urine pH Ur Specific [place] Urine Protein Urine Glucose (UA) Urine Ketones Urine Blood Urine Nitrite Ur Leukocyte Esterase Urine RBC Urine WBC Ur Squamous Epith Cells Urine Bacteria Hyaline Casts Urine Osmolality U Random Total Protein Ur Random Sodium Urine Creatinine Urine Microalbumin Microalb/Creat Ratio C. difficile Tox B Gene COVID-19 ([facility]) COVID-19 Clin Com Influenza Type A (PCR) Influenza Type B (PCR) RSV RNA Qual (PCR) SARS-CoV-2 RNA (RT-PCR) 07/13/22 07/13/22 07/13/22 11:24 15:39 19:34 WBC RBC Hgb Hct MCV MCH MCHC RDW Plt Count MPV Immature Gran % (Auto) Neut % (Auto) Lymph % (Auto) [place] % (Auto) Eos % (Auto) Baso % (Auto) Lymph # (Auto) [place] # (Auto) Eos # (Auto) Baso # (Auto) Abs Immat Gran (auto) Absolute Neuts (auto) Absolute Nucleated RBC Nucleated RBC % (auto) PT INR D-Dimer High Sensitivty Sodium Potassium Chloride Carbon Dioxide Anion Gap BUN Creatinine Estim Creat Clear Calc Estimated GFR POC Glucose 260 H 171 H 157 H Random Glucose Fasting Glucose Osmolality Calcium Magnesium Total Bilirubin AST ALT Alkaline Phosphatase Total Creatine Kinase Troponin I High Sens B-Natriuretic Peptide Total Protein Albumin TSH Free Cortisol Urine Color Urine Appearance Urine pH Ur Specific [place] Urine Protein Urine Glucose (UA) Urine Ketones Urine Blood Urine Nitrite Ur Leukocyte Esterase Urine RBC Urine WBC Ur Squamous Epith Cells Urine Bacteria Hyaline Casts Urine Osmolality U Random Total Protein Ur Random Sodium Urine Creatinine Urine Microalbumin Microalb/Creat Ratio C. difficile Tox B Gene COVID-19 ([facility]) COVID-19 Clin Com Influenza Type A (PCR) Influenza Type B (PCR) RSV RNA Qual (PCR) SARS-CoV-2 RNA (RT-PCR) 07/14/22 07/14/22 07/14/22 07:33 11:31 16:02 WBC RBC Hgb Hct MCV MCH MCHC RDW Plt Count MPV Immature Gran % (Auto) Neut % (Auto) Lymph % (Auto) [place] % (Auto) Eos % (Auto) Baso % (Auto) Lymph # (Auto) [place] # (Auto) Eos # (Auto) Baso # (Auto) Abs Immat Gran (auto) Absolute Neuts (auto) Absolute Nucleated RBC Nucleated RBC % (auto) PT INR D-Dimer High Sensitivty Sodium Potassium Chloride Carbon Dioxide Anion Gap BUN Creatinine Estim Creat Clear Calc Estimated GFR POC Glucose 164 H 212 H 261 H Random Glucose Fasting Glucose Osmolality Calcium Magnesium Total Bilirubin AST ALT Alkaline Phosphatase Total Creatine Kinase Troponin I High Sens B-Natriuretic Peptide Total Protein Albumin TSH Free Cortisol Urine Color Urine Appearance Urine pH Ur Specific [place] Urine Protein Urine Glucose (UA) Urine Ketones Urine Blood Urine Nitrite Ur Leukocyte Esterase Urine RBC Urine WBC Ur Squamous Epith Cells Urine Bacteria Hyaline Casts Urine Osmolality U Random Total Protein Ur Random Sodium Urine Creatinine Urine Microalbumin Microalb/Creat Ratio C. difficile Tox B Gene COVID-19 ([facility]) COVID-19 Clin Com Influenza Type A (PCR) Influenza Type B (PCR) RSV RNA Qual (PCR) SARS-CoV-2 RNA (RT-PCR) 07/14/22 07/15/22 07/15/22 19:01 07:48 11:09 WBC RBC Hgb Hct MCV MCH MCHC RDW Plt Count MPV Immature Gran % (Auto) Neut % (Auto) Lymph % (Auto) [place] % (Auto) Eos % (Auto) Baso % (Auto) Lymph # (Auto) [place] # (Auto) Eos # (Auto) Baso # (Auto) Abs Immat Gran (auto) Absolute Neuts (auto) Absolute Nucleated RBC Nucleated RBC % (auto) PT INR D-Dimer High Sensitivty Sodium Potassium Chloride Carbon Dioxide Anion Gap BUN Creatinine Estim Creat Clear Calc Estimated GFR POC Glucose 204 H 185 H 295 H Random Glucose Fasting Glucose Osmolality Calcium Magnesium Total Bilirubin AST ALT Alkaline Phosphatase Total Creatine Kinase Troponin I High Sens B-Natriuretic Peptide Total Protein Albumin TSH Free Cortisol Urine Color Urine Appearance Urine pH Ur Specific [place] Urine Protein Urine Glucose (UA) Urine Ketones Urine Blood Urine Nitrite Ur Leukocyte Esterase Urine RBC Urine WBC Ur Squamous Epith Cells Urine Bacteria Hyaline Casts Urine Osmolality U Random Total Protein Ur Random Sodium Urine Creatinine Urine Microalbumin Microalb/Creat Ratio C. difficile Tox B Gene COVID-19 ([facility]) COVID-19 Clin Com Influenza Type A (PCR) Influenza Type B (PCR) RSV RNA Qual (PCR) SARS-CoV-2 RNA (RT-PCR) 07/15/22 07/15/22 07/16/22 15:42 20:08 07:24 WBC RBC Hgb Hct MCV MCH MCHC RDW Plt Count MPV Immature Gran % (Auto) Neut % (Auto) Lymph % (Auto) [place] % (Auto) Eos % (Auto) Baso % (Auto) Lymph # (Auto) [place] # (Auto) Eos # (Auto) Baso # (Auto) Abs Immat Gran (auto) Absolute Neuts (auto) Absolute Nucleated RBC Nucleated RBC % (auto) PT INR D-Dimer High Sensitivty Sodium Potassium Chloride Carbon Dioxide Anion Gap BUN Creatinine Estim Creat Clear Calc Estimated GFR POC Glucose 245 H 292 H 184 H Random Glucose Fasting Glucose Osmolality Calcium Magnesium Total Bilirubin AST ALT Alkaline Phosphatase Total Creatine Kinase Troponin I High Sens B-Natriuretic Peptide Total Protein Albumin TSH Free Cortisol Urine Color Urine Appearance Urine pH Ur Specific [place] Urine Protein Urine Glucose (UA) Urine Ketones Urine Blood Urine Nitrite Ur Leukocyte Esterase Urine RBC Urine WBC Ur Squamous Epith Cells Urine Bacteria Hyaline Casts Urine Osmolality U Random Total Protein Ur Random Sodium Urine Creatinine Urine Microalbumin Microalb/Creat Ratio C. difficile Tox B Gene COVID-19 ([facility]) COVID-19 Clin Com Influenza Type A (PCR) Influenza Type B (PCR) RSV RNA Qual (PCR) SARS-CoV-2 RNA (RT-PCR) 07/16/22 07/16/22 07/16/22 11:16 16:18 19:09 WBC RBC Hgb Hct MCV MCH MCHC RDW Plt Count MPV Immature Gran % (Auto) Neut % (Auto) Lymph % (Auto) [place] % (Auto) Eos % (Auto) Baso % (Auto) Lymph # (Auto) [place] # (Auto) Eos # (Auto) Baso # (Auto) Abs Immat Gran (auto) Absolute Neuts (auto) Absolute Nucleated RBC Nucleated RBC % (auto) PT INR D-Dimer High Sensitivty Sodium Potassium Chloride Carbon Dioxide Anion Gap BUN Creatinine Estim Creat Clear Calc Estimated GFR POC Glucose 304 H 261 H 275 H Random Glucose Fasting Glucose Osmolality Calcium Magnesium Total Bilirubin AST ALT Alkaline Phosphatase Total Creatine Kinase Troponin I High Sens B-Natriuretic Peptide Total Protein Albumin TSH Free Cortisol Urine Color Urine Appearance Urine pH Ur Specific [place] Urine Protein Urine Glucose (UA) Urine Ketones Urine Blood Urine Nitrite Ur Leukocyte Esterase Urine RBC Urine WBC Ur Squamous Epith Cells Urine Bacteria Hyaline Casts Urine Osmolality U Random Total Protein Ur Random Sodium Urine Creatinine Urine Microalbumin Microalb/Creat Ratio C. difficile Tox B Gene COVID-19 ([facility]) COVID-19 Clin Com Influenza Type A (PCR) Influenza Type B (PCR) RSV RNA Qual (PCR) SARS-CoV-2 RNA (RT-PCR) 07/17/22 07/17/22 07:29 11:33 WBC RBC Hgb Hct MCV MCH MCHC RDW Plt Count MPV Immature Gran % (Auto) Neut % (Auto) Lymph % (Auto) [place] % (Auto) Eos % (Auto) Baso % (Auto) Lymph # (Auto) [place] # (Auto) Eos # (Auto) Baso # (Auto) Abs Immat Gran (auto) Absolute Neuts (auto) Absolute Nucleated RBC Nucleated RBC % (auto) PT INR D-Dimer High Sensitivty Sodium Potassium Chloride Carbon Dioxide Anion Gap BUN Creatinine Estim Creat Clear Calc Estimated GFR POC Glucose 140 H 147 H Random Glucose Fasting Glucose Osmolality Calcium Magnesium Total Bilirubin AST ALT Alkaline Phosphatase Total Creatine Kinase Troponin I High Sens B-Natriuretic Peptide Total Protein Albumin TSH Free Cortisol Urine Color Urine Appearance Urine pH Ur Specific [place] Urine Protein Urine Glucose (UA) Urine Ketones Urine Blood Urine Nitrite Ur Leukocyte Esterase Urine RBC Urine WBC Ur Squamous Epith Cells Urine Bacteria Hyaline Casts Urine Osmolality U Random Total Protein Ur Random Sodium Urine Creatinine Urine Microalbumin Microalb/Creat Ratio C. difficile Tox B Gene COVID-19 ([facility]) COVID-19 Clin Com Influenza Type A (PCR) Influenza Type B (PCR) RSV RNA Qual (PCR) SARS-CoV-2 RNA (RT-PCR) Assessment and Plan Final Anesthetic Review Family History of Problems with Anesthesia: No History of Problems with Anesthesia: No
--- NOTE | 2022-07-17 13:10 | MHC.CLN ---
F/U NPO FOR SURGICAL DEBRIDEMENT OF SACRAL WOUND TODAY. WHEN ABLE TO RESUME DIET, RECOMMEND CONTINUE PRIOR DIET: DIABETIC 2000 KCALS, NDD3 CONSISTENCY, 1500 ML FLUID RESTRICTION. ENSURE BID TO PROMOTE WOUND HEALING. PROVIDES ADDITIONAL 700 KCALS, 40 G PROTEIN. FOLLOW FOR DIET ADVANCEMENT, INTAKE AND WOUND.
--- NOTE | 2022-07-17 13:34 | W.PM.OPN ---
Operative Note Operative Note Date of Service: 07/17/22 Narrative: Preoperative diagnosis:Sacral decubitus ulcer Postoperative diagnosis: same , stage IV Procedure: debridement of sacral decubitus ulcer Surgeon: Brayan Ho MD [employer] [facility] Attendant: Nancy Whitfield PA-C, KASHMIR Osborne Anesthesia: general LMA Indications for procedure: 81-year-old male patient presenting with a sacral decubitus ulcer previously debrided 1 week ago now returning for additional debridement due to increased necrotic tissue at the base of the wound. Operative findings: Extensive area of skin, subcutaneous, and muscle necrosis extending down to coccyx. Specimen: necrotic skin, subcutaneous tissue and muscle, sacral decubitus ulcer Estimated blood loss: 25 mL Complications: none Procedure details: patient was brought to the OR placed in a supine position. After administering general anesthesia the patient was placed in a right lateral decubitus position. A surgical time-out was called the consent confirmed. Patient received preoperative antibiotics and Venodyne boots were in place. A 15 blade was then used to read all necrotic tissue down to viable tissue. The base of the wound extended down to coccyx as noted above. The entire wound measured 14 x 8 cm. With a depth of 3 cm. Dissection was continued down to viable tissue and hemostasis was assured using electrocautery. Hemostasis was also assured using thrombotic Snow. Wounds were then packed with saline soaked Kerlix followed by dry fluffed and ABD pads. The patient tolerated the procedure well. He was transferred to PACU in stable condition. Sponge, instrument, and counts reported as correct.
[2022-07-17] MEDS: fentaNYL citrate/PF 100 MCG/2 ML VIAL 25 MCG IVPUSH ×2 (13:55→14:05)
--- NOTE | 2022-07-17 14:21 | ECG_ITS ---
Test Reason : postop Blood Pressure : / mmHG Vent. Rate : 131 BPM Atrial Rate : 000 BPM P-R Int : 000 ms QRS Dur : 122 ms QT Int : 338 ms P-R-T Axes : 000 268 056 degrees QTc Int : 499 ms Atrial fibrillation with rapid ventricular response Right bundle branch block Possible Lateral infarct , age undetermined Abnormal ECG When compared with ECG of 18-JUN-2022 20:37, No significant changes seen Referred By: Lupillo Kiser Electronically Signed By:CORTEZ ROMERO
[2022-07-17] MEDS: Metoprolol Tartrate 50 MG TABLET 150 MG PO ×2 (14:28→20:37)
--- NOTE | 2022-07-17 14:41 | P.PNIM_ITS ---
Subjective Subjective Date of Service: 07/17/22 Interval History: Awake alert this morning offered no acute complaints, subsequently underwent debridement of sacral ulcer in operative room ,no fever chills no other acute issues overnight. Review of Systems Review of Systems: Yes all other systems are reviewed and are negative Physical Exam Vital Signs: Vital Signs: Last Vital Signs Temp 98.0 F 07/17/22 13:44 Pulse 123 H 07/17/22 14:30 Resp 21 H 07/17/22 14:30 BP 108/81 07/17/22 14:30 Pulse Ox 94 07/17/22 14:30 O2 Del Method 07/17/22 14:30 O2 Flow Rate 2 07/17/22 14:30 BMI result Body Mass Index 26.6 Const: Other: Gen:? Awake alert, in no acute distr ess HEENT: sclera anicteric, moist m ucus membranes Nec k: supple Lungs: c lear to auscultati on bilaterally Hea rt: irregular irre gular, no murmurs Abd: soft, non-ten kinza, non-distended Ext: no edema Ski n: warm/well-perfu sed, sacral decubi tus ulcer dressing in place Neuro: a lert and oriented x3, no focal findi ngs Psych: appropr iate affect Objective Data Active Medications Acetaminophen (Acetaminophen 325 Mg Tablet) 650 mg PO Q6H PRN PRN Reason: Pain, Mild (Pain Scale 1-3) Last Admin: 07/16/22 19:07 Dose: 650 mg Documented By: RIC Amlodipine Besylate (Amlodipine Besylate 5 Mg Tablet) 5 mg PO DAILY [facility]; Protocol Last Admin: 07/16/22 08:10 Dose: 5 mg Documented By: CLIVE Apixaban (Apixaban 5 Mg Tablet) 5 mg PO BID [facility] Last Admin: 07/16/22 21:34 Dose: 5 mg Documented By: RIC Dextrose (Dextrose 50 % 25 Gm/50 Ml Syringe) 25 gm IVPUSH Q15M PRN; Protocol PRN Reason: per Hypoglycemia Standing Ord. Docusate Sodium (Docusate Sodium 100 Mg Capsule) 100 mg PO BID [facility] Last Admin: 07/16/22 21:35 Dose: 100 mg Documented By: RIC Fentanyl (Fentanyl Citrate/Pf 100 Mcg/2 Ml Vial) 25 mcg IVPUSH Q5M PRN; Protocol PRN Reason: Pain, Moderate (Pain Scale 4-6 Last Admin: 07/17/22 14:05 Dose: 25 mcg Documented By: TOMMIE Finasteride (Finasteride 5 Mg Tablet) 5 mg PO DAILY [facility] Last Admin: 07/16/22 08:10 Dose: 5 mg Documented By: CLIVE Glucose (Glucose Gel 15 Gm Gel..Gram.) 15 gm PO Q15M PRN; Protocol PRN Reason: per Hypoglycemia Standing Ord. Insulin Glargine (Insulin Glargine,Hum.Rec.Anlog 100 Unit/Ml 10 Ml Vial) 20 unit SUBCUT DAILY@0730 [facility] Last Admin: 07/17/22 08:32 Dose: Not Given Documented By: CLIVE Non-Admin Reason: NPO Insulin Glargine (Insulin Glargine,Hum.Rec.Anlog 100 Unit/Ml 10 Ml Vial) 5 unit SUBCUT BEDTIME [facility] Last Admin: 07/16/22 21:34 Dose: 5 unit Documented By: RIC Insulin Human Lispro (Insulin Lispro 100 Unit/Ml 3 Ml Vial) 0 unit SUBCUT QIDACHS [facility]; Protocol Last Admin: 07/17/22 08:32 Dose: Not Given Documented By: CLIVE Non-Admin Reason: NPO Lidocaine (Lidocaine 4 % Patch Adh..Patch) 1 patch TRANSDERMA DAILY [facility]; Protocol Last Admin: 07/16/22 08:12 Dose: 1 patch Documented By: CLIVE Losartan Potassium (Losartan Potassium 25 Mg Tablet) 25 mg PO DAILY [facility]; Protocol Last Admin: 07/16/22 08:11 Dose: 25 mg Documented By: CLIVE Metoprolol Tartrate (Metoprolol Tartrate 50 Mg Tablet) 150 mg PO BID [facility]; Protocol Last Admin: 07/17/22 14:28 Dose: 150 mg Documented By: TOMMIE Ondansetron HCl (Ondansetron Hcl 4 Mg/2 Ml Vial) 4 mg IVPUSH Q8H PRN PRN Reason: Nausea and Vomiting Last Admin: 07/07/22 01:05 Dose: 4 mg Documented By: MARIANN Ondansetron HCl (Ondansetron Hcl 4 Mg/2 Ml Vial) 4 mg IVPUSH ONCE PRN PRN Reason: Nausea and Vomiting Pharmacy Consult (Consult Rx Perform Med Rec) 1 each MISCELLANE ONCE PRN PRN Reason: Consult order Polyethylene Glycol (Polyethylene Glycol 3350 17 Gm Powd.Pack) 17 gm PO DAILY PRN PRN Reason: constipation Last Admin: 06/28/22 22:01 Dose: 17 gm Documented By: ADRIANA Polyethylene Glycol (Polyethylene Glycol 3350 17 Gm Powd.Pack) 17 gm PO DAILY [facility] Last Admin: 07/16/22 08:12 Dose: 17 gm Documented By: CLIVE Sodium Chloride (0.9 % Sodium Chloride Flush 3 Ml Syringe) 3 ml IVFLUSH QSHIFT [facility] Last Admin: 07/17/22 00:29 Dose: Not Given Documented By: ASHANTI Non-Admin Reason: No Access Tamsulosin HCl (Tamsulosin Hcl 0.4 Mg Capsule) 0.8 mg PO DAILY [facility] Last Admin: 07/16/22 08:10 Dose: 0.8 mg Documented By: CLIVE Urea (Urea 15 Gm Powder) 30 gm PO DAILY [facility] Last Admin: 07/16/22 08:12 Dose: 30 gm Documented By: CLIVE Vitamin D (Cholecalciferol (Vitamin D3) 25 Mcg Tablet) 50 mcg PO DAILY [facility] Last Admin: 07/16/22 08:10 Dose: 50 mcg Documented By: CLIVE Zinc Acetate/Diphenhydramine (Diphenhydramine Hcl 2 % Cream 28 Gm Tube) 1 appl TOPICAL TID PRN; Protocol PRN Reason: itching Labs CBC & Chem 7: 07/11/22 05:16 07/11/22 05:16 Labs: Laboratory Results - last 24 hr 07/16/22 07/16/22 07/17/22 16:18 19:09 07:29 POC Glucose 261 H 275 H 140 H 07/17/22 11:33 POC Glucose 147 H Assessment and Plan (1) Traumatic subarachnoid hemorrhage: Status: Acute (2) Cerebral contusion: Status: Acute (3) Physical deconditioning: Status: Acute (4) Hyponatremia: Status: Acute Plan 74yo M with DM2, HTN, HLD, chronic venous stasis dermatitis presented with mechanical fall, admitted for hypoxia due to PNA # traumatic SAH - no headache, no dizziness, continue apixaban, was helped for 2 weeks # acute hypoxic respiratory failure due to PNA - finished 10d of ABX, oxygenation stable 94% on room air # urinary retention - failed voiding trial x2, Lemus re-placed 07/11; continue tamsulosin and finasteride added on 07/12 # mechanical fall - difficulty ambulating; awaiting SNF placement # generalized weakness - 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 but not clinically NPH per Neurology # acute/chronic hypoNa - resolved # new-onset AF/RVR - LVEF >70%, seen by Cardiology - rate-controlled on metoprolol tartrate - restarted apixaban 07/10/22 # incidental 1.3cm pancreatic lesions, may reflect adjacent pancreatic cysts - outpt MRI/MRCP # Sacral decubitus ulcer stage 4 - on 07/08 had debridement of sacral decubitus ulcer, including skin, dermis, subcutaneous tissue and muscle; operative findings of necrotic skin, subcutaneous tissue and muscle. Ulcer measured approximately 10 cm x 10 cm in diameter with a depth of 4 cm = stage 3; Underwent repeat debridement in OR today entire wound measured 14-8 cm with the depth of 3 cm dissection was continued down to viable tissue and hemostasis was assured, wound packed with saline soaked Kerlix followed by dry Fluffed and ABD pads Add IV morphine as needed for pain control # DM2 - blood sugar stable today, continues basal/bolus insulin # HTN - stable blood pressure, continue hydralazine, losartan, and metoprolol # HLD - statin # VTE ppx: SCDs, apixaban In my clinical judgment, the patient requires continued inpatient hospitalization for the following reasons: SNF placement and follow-up on stage IV decub ulcer Time Spent With Patient Time: Total time managing care of this patient today ____ minutes. Quality Stroke Does the patient have a stroke diagnosis?: No VTE Prior VTE?: No VTE Risk Level:: Medical - moderate - high VTE Device Contraindication: Treatment Not Indicated VTE Drug Contraindication: N/A - Med Ordered
[2022-07-17 15:42] LABS: Glucose, Whole Blood 212 mg/dL (60-115)
[2022-07-17] MEDS: Insulin Lispro 100 UNIT/ML 3 ML VIAL SUBCUT ×2 (16:43→20:49)
--- NOTE | 2022-07-17 17:56 | PC.NURSE ---
PATIENT RETURNED FROM PACU AT 1510 AND ONLY REPORT WAS PHOTO OF PROCEDURE DETAILS, THEN PATIENT ARRIVED BACK TO HIS ROOM VIA BED AND PACU TRANSPORTED.RN REVIEWED DEY=TAILS. PT REPOSITIONED IN BED, AWAKE BUT SLEEPY, VSS, LARGE WHITE GAUZE AND ALLEVNY COVERING TO BILAT BUTTOCKS ARE WITH SHADOW STAINING OF BLOOD NOTED. TUCKER CATHETER DRAINING YELLOW URINE, OXYGEN N/C AT 2 LITERS. PT DENIES PAIN AND NO S/SX DISTRESS. SEQ ST APPLIED, AIR LOSS BED STARTED, IVF NS INFUSING FROM PACU. WILL MONITOR CLOSELY.
[2022-07-17 20:00] LABS: Glucose, Whole Blood 302 mg/dL (60-115)
[2022-07-17] MEDS: Apixaban 5 MG TABLET PO (20:37)
[2022-07-17] MEDS: Docusate Sodium 100 MG CAPSULE PO (20:38)
[2022-07-17] MEDS: Insulin Glargine,Hum.rec.anlog 100 UNIT/ML 10 ML VIAL SUBCUT (20:50)
--- NOTE | 2022-07-17 23:14 | PC.NURSE ---
NURSING UNCLAIMED PROPERTY OFFICER MADE AWARE OF WOUND VAC WRITTEN ON PACU NOTES FROM PT S/P SACRAL UCLER DEBRIDEMENT. PT FROM PACU AT 1510 WITH FAX ONLY NO VERBAL REPORT TO THIS RN OR 7-3 RN AT 1510 WHEN PT ARRIVED. LARGE DSG PRESENT BUT NO WOUND VAC. NOTED ON PACU SHEET OF SHADOW DRNG TO BANDAGE. DRESSING WITH ADDITIONAL SHADOW STAINING NOTED.
[2022-07-18] VITALS (9 sets, daily range): BP systolic 63–122; BP diastolic 34–82; PULSE 80–135; RESP 14–18; TEMP 36.2–36.7; O2SAT 99–100
--- NOTE | 2022-07-18 06:19 | PC.NURSE ---
Pt surgical dressing saturated with blood and soiled. This nurse performed dressing change at approx 0500. Surgeon notified.
[2022-07-18 07:48] LABS: Glucose, Whole Blood 238 mg/dL (60-115)
[2022-07-18] MEDS: Insulin Lispro 100 UNIT/ML 3 ML VIAL SUBCUT ×3 (08:22→16:45)
[2022-07-18] MEDS: Insulin Glargine,Hum.rec.anlog 100 UNIT/ML 10 ML VIAL 20 UNIT SUBCUT (08:23)
[2022-07-18] MEDS: polyethylene glycoL 3350 17 GM POWD.PACK PO (08:23)
[2022-07-18] MEDS: Urea 15 GM POWDER 30 GM PO (08:23)
[2022-07-18] MEDS: Tamsulosin HCL 0.4 MG CAPSULE 0.8 MG PO (08:24)
[2022-07-18] MEDS: Losartan Potassium 25 MG TABLET PO (08:24)
[2022-07-18] MEDS: Apixaban 5 MG TABLET PO (08:24)
[2022-07-18] MEDS: Finasteride 5 MG TABLET PO (08:24)
[2022-07-18] MEDS: Cholecalciferol (Vitamin D3) 25 MCG TABLET 50 MCG PO (08:24)
[2022-07-18] MEDS: Docusate Sodium 100 MG CAPSULE PO (08:24)
[2022-07-18] MEDS: Lidocaine 4 % Patch ADH..PATCH 1 PATCH TRANSDERMA (08:25)
[2022-07-18] MEDS: Morphine Sulfate 2 MG/ML CARTRIDGE IVPUSH (08:25)
[2022-07-18] MEDS: 0.9 % Sodium Chloride Flush 3 ML SYRINGE IVFLUSH ×2 (08:35→20:51)
[2022-07-18] MEDS: Metoprolol Tartrate 50 MG TABLET 150 MG PO (09:12)
--- NOTE | 2022-07-18 09:40 | HO.POSTANES ---
Post Anesthesia Evaluation Post Anesthesia Evaluation Vital Signs: Vital Signs Temp Pulse Resp BP Pulse Ox O2 Del Method 07/18/22 07:45 135 H 18 111/58 L 99 Room Air 07/18/22 03:21 97.6 F 84 14 96/51 L 100 Room Air Anesthesia: General Mental Status: Awake Pain Control: Satisfactory Nausea/Vomiting: None Hydration: Adequate Anesthesia-Related Issues: No Anes. Related Issues
[2022-07-18] MEDS: oxyCODONE HCl Immed Release 5 MG TABLET PO ×2 (10:38→15:27)
[2022-07-18 11:31] LABS: Glucose, Whole Blood 269 mg/dL (60-115)
--- NOTE | 2022-07-18 12:32 | P.PNGS_ITS ---
Subjective Subjective Date of Service: 07/18/22 Interval history: States he is very sore. Physical Exam Vital Signs: Vital Signs: Last Vital Signs Temp 97.6 F 07/18/22 03:21 Pulse 135 H 07/18/22 07:45 Resp 18 07/18/22 07:45 BP 111/58 L 07/18/22 07:45 Pulse Ox 99 07/18/22 07:45 O2 Del Method 07/18/22 07:45 O2 Flow Rate 2 07/17/22 20:00 BMI result Body Mass Index 26.6 Const: General: comfortable and alert Resp: Effort & Inspection: normal respiratory effort Back/Spine/Pelvis: Other: sacral decubitus ulcer- large clot at wound base which was removed, base remains very oozy and subq tissue is slightly dusky appearing proximally Neuro: General: moves all extremities Extrem: General: No no pedal edema Objective Data Active Medications Acetaminophen (Acetaminophen 325 Mg Tablet) 650 mg PO Q6H PRN PRN Reason: Pain, Mild (Pain Scale 1-3) Last Admin: 07/16/22 19:07 Dose: 650 mg Documented By: RIC Apixaban (Apixaban 5 Mg Tablet) 5 mg PO BID [facility] Last Admin: 07/18/22 08:24 Dose: 5 mg Documented By: TONNY Dextrose (Dextrose 50 % 25 Gm/50 Ml Syringe) 25 gm IVPUSH Q15M PRN; Protocol PRN Reason: per Hypoglycemia Standing Ord. Docusate Sodium (Docusate Sodium 100 Mg Capsule) 100 mg PO BID [facility] Last Admin: 07/18/22 08:24 Dose: 100 mg Documented By: TONNY Fentanyl (Fentanyl Citrate/Pf 100 Mcg/2 Ml Vial) 25 mcg IVPUSH Q5M PRN; Protocol PRN Reason: Pain, Moderate (Pain Scale 4-6 Last Admin: 07/17/22 14:05 Dose: 25 mcg Documented By: TOMMIE Finasteride (Finasteride 5 Mg Tablet) 5 mg PO DAILY [facility] Last Admin: 07/18/22 08:24 Dose: 5 mg Documented By: TONNY Glucose (Glucose Gel 15 Gm Gel..Gram.) 15 gm PO Q15M PRN; Protocol PRN Reason: per Hypoglycemia Standing Ord. Insulin Glargine (Insulin Glargine,Hum.Rec.Anlog 100 Unit/Ml 10 Ml Vial) 20 unit SUBCUT DAILY@0730 [facility] Last Admin: 07/18/22 08:23 Dose: 20 unit Documented By: TONNY Insulin Glargine (Insulin Glargine,Hum.Rec.Anlog 100 Unit/Ml 10 Ml Vial) 5 unit SUBCUT BEDTIME [facility] Last Admin: 07/17/22 20:50 Dose: 5 unit Documented By: ASHANTI Insulin Human Lispro (Insulin Lispro 100 Unit/Ml 3 Ml Vial) 0 unit SUBCUT QIDACHS [facility]; Protocol Last Admin: 07/18/22 11:40 Dose: 6 unit Documented By: TONNY Lidocaine (Lidocaine 4 % Patch Adh..Patch) 1 patch TRANSDERMA DAILY [facility]; Protocol Last Admin: 07/18/22 08:25 Dose: 1 patch Documented By: TONNY Losartan Potassium (Losartan Potassium 25 Mg Tablet) 25 mg PO DAILY [facility]; Protocol Last Admin: 07/18/22 08:24 Dose: 25 mg Documented By: TONNY Metoprolol Tartrate (Metoprolol Tartrate 50 Mg Tablet) 150 mg PO BID [facility]; Protocol Last Admin: 07/18/22 09:12 Dose: 150 mg Documented By: TONNY Morphine Sulfate (Morphine Sulfate 2 Mg/Ml Cartridge) 2 mg IVPUSH Q4H PRN; Protocol PRN Reason: Pain, Severe (Pain Scale 7-10) Last Admin: 07/18/22 08:25 Dose: 2 mg Documented By: TONNY Ondansetron HCl (Ondansetron Hcl 4 Mg/2 Ml Vial) 4 mg IVPUSH Q8H PRN PRN Reason: Nausea and Vomiting Last Admin: 07/07/22 01:05 Dose: 4 mg Documented By: MARIANN Ondansetron HCl (Ondansetron Hcl 4 Mg/2 Ml Vial) 4 mg IVPUSH ONCE PRN PRN Reason: Nausea and Vomiting Oxycodone HCl (Oxycodone Hcl Immed Release 5 Mg Tablet) 5 mg PO TID [facility] Stop: 07/19/22 21:01 Last Admin: 07/18/22 10:38 Dose: 5 mg Documented By: TONNY Pharmacy Consult (Consult Rx Perform Med Rec) 1 each MISCELLANE ONCE PRN PRN Reason: Consult order Polyethylene Glycol (Polyethylene Glycol 3350 17 Gm Powd.Pack) 17 gm PO DAILY PRN PRN Reason: constipation Last Admin: 06/28/22 22:01 Dose: 17 gm Documented By: ADRIANA Polyethylene Glycol (Polyethylene Glycol 3350 17 Gm Powd.Pack) 17 gm PO DAILY [facility] Last Admin: 07/18/22 08:23 Dose: 17 gm Documented By: TONNY Sodium Chloride (0.9 % Sodium Chloride Flush 3 Ml Syringe) 3 ml IVFLUSH QSHIFT [facility] Last Admin: 07/18/22 08:35 Dose: 3 ml Documented By: TONNY Tamsulosin HCl (Tamsulosin Hcl 0.4 Mg Capsule) 0.8 mg PO DAILY [facility] Last Admin: 07/18/22 08:24 Dose: 0.8 mg Documented By: TONNY Urea (Urea 15 Gm Powder) 30 gm PO DAILY [facility] Last Admin: 07/18/22 08:23 Dose: 30 gm Documented By: TONNY Vitamin D (Cholecalciferol (Vitamin D3) 25 Mcg Tablet) 50 mcg PO DAILY [facility] Last Admin: 07/18/22 08:24 Dose: 50 mcg Documented By: TONNY Zinc Acetate/Diphenhydramine (Diphenhydramine Hcl 2 % Cream 28 Gm Tube) 1 appl TOPICAL TID PRN; Protocol PRN Reason: itching Labs CBC & Chem 7: 07/11/22 05:16 07/11/22 05:16 Labs: Laboratory Results - last 24 hr 07/17/22 07/17/22 07/18/22 15:33 19:47 07:44 POC Glucose 212 H 302 H 238 H 07/18/22 11:28 POC Glucose 269 H Procedures Date of Service Date of Service: 07/18/22 Progress Note: A&P Assessment and plan (1) Stage 4 decubitus ulcer: Status: Acute Plan 81 year old male admitted for hypoxia and respiratory failure following a fall found to have a sacral decubitus ulcer with necrotic skin requiring debridement in the OR. He was noted to have increased necrotic tissue at the base of the wound and required repeat debridement yesterday. Ulcer now with extensive area of skin, subcutaneous, and muscle necrosis extending down to coccyx. Stage 4 decubitus ulcer- debrided yesterday down to viable tissue however subq tissue dusky appearing this morning with large clots. Wound edges remain oozy and ulcer was packed extensively. Plan for another debridement in OR tomorrow, possible wound vac placement. Will add onto schedule for tomorrow. Continue current wound care of dressing change q8h with wet to dry fluffs, abd dressing. Continue supportive care of frequent repositioning, air loss bed, nutritional support. Time Spent With Patient Time: Total time managing care of this patient today 40 minutes. Quality Stroke Does the patient have a stroke diagnosis?: No VTE Prior VTE?: No VTE Risk Level:: Medical - moderate - high VTE Device Contraindication: Treatment Not Indicated VTE Drug Contraindication: N/A - Med Ordered
--- NOTE | 2022-07-18 14:07 | HO.PM.IMPN ---
Subjective Subjective Date of Service: 07/18/22 Interval History: Patient sitting in bed asking for help, on further questioning patient complained of pain lower back, underwent debridement of stage IV decubiti ulcer, no fevers no chills no other acute issues overnight tolerating diet, no nausea, no vomiting. Review of Systems Review of Systems: Yes all other systems are reviewed and are negative Physical Exam Vital Signs: Vital Signs: Last Vital Signs Temp 97.6 F 07/18/22 03:21 Pulse 135 H 07/18/22 07:45 Resp 18 07/18/22 07:45 BP 111/58 L 07/18/22 07:45 Pulse Ox 99 07/18/22 07:45 O2 Del Method 07/18/22 07:45 O2 Flow Rate 2 07/17/22 20:00 BMI result Body Mass Index 26.6 Const: Other: Gen:? Awake alert, in no acute distr ess HEENT: sclera anicteric, moist m ucus membranes Nec k: supple Lungs: c lear to auscultati on bilaterally Hea rt: irregular irre gular, no murmurs Abd: soft, non-ten kinza, non-distended Ext: no edema Maggie ro: alert and orie nted x3, no focal findings Psych: ap propriate affect Objective Data Active Medications Acetaminophen (Acetaminophen 325 Mg Tablet) 650 mg PO Q6H PRN PRN Reason: Pain, Mild (Pain Scale 1-3) Last Admin: 07/16/22 19:07 Dose: 650 mg Documented By: RIC Apixaban (Apixaban 5 Mg Tablet) 5 mg PO BID [facility] Last Admin: 07/18/22 08:24 Dose: 5 mg Documented By: TONNY Dextrose (Dextrose 50 % 25 Gm/50 Ml Syringe) 25 gm IVPUSH Q15M PRN; Protocol PRN Reason: per Hypoglycemia Standing Ord. Docusate Sodium (Docusate Sodium 100 Mg Capsule) 100 mg PO BID [facility] Last Admin: 07/18/22 08:24 Dose: 100 mg Documented By: TONNY Fentanyl (Fentanyl Citrate/Pf 100 Mcg/2 Ml Vial) 25 mcg IVPUSH Q5M PRN; Protocol PRN Reason: Pain, Moderate (Pain Scale 4-6 Last Admin: 07/17/22 14:05 Dose: 25 mcg Documented By: TOMMIE Finasteride (Finasteride 5 Mg Tablet) 5 mg PO DAILY [facility] Last Admin: 07/18/22 08:24 Dose: 5 mg Documented By: TONNY Glucose (Glucose Gel 15 Gm Gel..Gram.) 15 gm PO Q15M PRN; Protocol PRN Reason: per Hypoglycemia Standing Ord. Insulin Glargine (Insulin Glargine,Hum.Rec.Anlog 100 Unit/Ml 10 Ml Vial) 20 unit SUBCUT DAILY@0730 [facility] Last Admin: 07/18/22 08:23 Dose: 20 unit Documented By: TONNY Insulin Glargine (Insulin Glargine,Hum.Rec.Anlog 100 Unit/Ml 10 Ml Vial) 5 unit SUBCUT BEDTIME [facility] Last Admin: 07/17/22 20:50 Dose: 5 unit Documented By: ASHANTI Insulin Human Lispro (Insulin Lispro 100 Unit/Ml 3 Ml Vial) 0 unit SUBCUT QIDACHS [facility]; Protocol Last Admin: 07/18/22 11:40 Dose: 6 unit Documented By: TONNY Lidocaine (Lidocaine 4 % Patch Adh..Patch) 1 patch TRANSDERMA DAILY [facility]; Protocol Last Admin: 07/18/22 08:25 Dose: 1 patch Documented By: TONNY Losartan Potassium (Losartan Potassium 25 Mg Tablet) 25 mg PO DAILY [facility]; Protocol Last Admin: 07/18/22 08:24 Dose: 25 mg Documented By: TONNY Metoprolol Tartrate (Metoprolol Tartrate 50 Mg Tablet) 150 mg PO BID [facility]; Protocol Last Admin: 07/18/22 09:12 Dose: 150 mg Documented By: TONNY Morphine Sulfate (Morphine Sulfate 2 Mg/Ml Cartridge) 2 mg IVPUSH Q4H PRN; Protocol PRN Reason: Pain, Severe (Pain Scale 7-10) Last Admin: 07/18/22 08:25 Dose: 2 mg Documented By: TONNY Ondansetron HCl (Ondansetron Hcl 4 Mg/2 Ml Vial) 4 mg IVPUSH Q8H PRN PRN Reason: Nausea and Vomiting Last Admin: 07/07/22 01:05 Dose: 4 mg Documented By: MARIANN Ondansetron HCl (Ondansetron Hcl 4 Mg/2 Ml Vial) 4 mg IVPUSH ONCE PRN PRN Reason: Nausea and Vomiting Oxycodone HCl (Oxycodone Hcl Immed Release 5 Mg Tablet) 5 mg PO TID [facility] Stop: 07/19/22 21:01 Last Admin: 07/18/22 10:38 Dose: 5 mg Documented By: TONNY Pharmacy Consult (Consult Rx Perform Med Rec) 1 each MISCELLANE ONCE PRN PRN Reason: Consult order Polyethylene Glycol (Polyethylene Glycol 3350 17 Gm Powd.Pack) 17 gm PO DAILY PRN PRN Reason: constipation Last Admin: 06/28/22 22:01 Dose: 17 gm Documented By: ADRIANA Polyethylene Glycol (Polyethylene Glycol 3350 17 Gm Powd.Pack) 17 gm PO DAILY [facility] Last Admin: 07/18/22 08:23 Dose: 17 gm Documented By: TONNY Sodium Chloride (0.9 % Sodium Chloride Flush 3 Ml Syringe) [facility] Last Admin: 07/18/22 08:35 Dose: 3 ml Documented By: TONNY Tamsulosin HCl (Tamsulosin Hcl 0.4 Mg Capsule) 0.8 mg PO DAILY [facility] Last Admin: 07/18/22 08:24 Dose: 0.8 mg Documented By: TONNY Urea (Urea 15 Gm Powder) 30 gm PO DAILY [facility] Last Admin: 07/18/22 08:23 Dose: 30 gm Documented By: TONNY Vitamin D (Cholecalciferol (Vitamin D3) 25 Mcg Tablet) 50 mcg PO DAILY [facility] Last Admin: 07/18/22 08:24 Dose: 50 mcg Documented By: TONNY Zinc Acetate/Diphenhydramine (Diphenhydramine Hcl 2 % Cream 28 Gm Tube) 1 appl TOPICAL TID PRN; Protocol PRN Reason: itching Labs CBC & Chem 7: 07/11/22 05:16 07/11/22 05:16 Labs: Laboratory Results - last 24 hr 07/17/22 07/17/22 07/18/22 15:33 19:47 07:44 POC Glucose 212 H 302 H 238 H 07/18/22 11:28 POC Glucose 269 H Assessment and Plan (1) Traumatic subarachnoid hemorrhage: Status: Acute (2) Cerebral contusion: Status: Acute (3) Physical deconditioning: Status: Acute (4) Hyponatremia: Status: Acute Plan 74yo M with DM2, HTN, HLD, chronic venous stasis dermatitis presented with mechanical fall, admitted for hypoxia due to PNA # traumatic SAH - no headache, no dizziness, continue apixaban, was helped for 2 weeks # acute hypoxic respiratory failure due to PNA - finished 10d of ABX, oxygenation stable 94% on room air # urinary retention - failed voiding trial x2, Lemus re-placed 07/11; continue tamsulosin and finasteride added on 07/12 # mechanical fall - difficulty ambulating; awaiting SNF placement # generalized weakness - 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 but not clinically NPH per Neurology # acute/chronic hypoNa - resolved # new-onset AF/RVR - LVEF >70%, seen by Cardiology - rate-controlled on metoprolol tartrate - restarted apixaban 07/10/22 # incidental 1.3cm pancreatic lesions, may reflect adjacent pancreatic cysts - outpt MRI/MRCP # Sacral decubitus ulcer stage 4 - on 07/08 had debridement of sacral decubitus ulcer, including skin, dermis, subcutaneous tissue and muscle; operative findings of necrotic skin, subcutaneous tissue and muscle. Ulcer measured approximately 10 cm x 10 cm in diameter with a depth of 4 cm = stage 3; Underwent repeat debridement in OR 07/17 entire wound measured 14-8 cm with the depth of 3 cm dissection was continued down to viable tissue and hemostasis was assured, wound packed with saline soaked Kerlix followed by dry Fluff and ABD pads Patient complaining of pain cont. IV morphine as needed for pain control, and schedule oxycodone 5 mg t.i.d. x2 days # DM2 - blood sugar in 200s, continues basal/bolus insulin # HTN - stable blood pressure, continue hydralazine, losartan, and metoprolol # HLD - statin # VTE ppx: SCDs, apixaban In my clinical judgment, the patient requires continued inpatient hospitalization for the following reasons: SNF placement and follow-up on stage IV decub ulcer Time Spent With Patient Time: Total time managing care of this patient today ____ minutes. Quality Stroke Does the patient have a stroke diagnosis?: No VTE Prior VTE?: No VTE Risk Level:: Medical - moderate - high VTE Device Contraindication: Treatment Not Indicated VTE Drug Contraindication: N/A - Med Ordered
[2022-07-18] MEDS: 0.9 % Sodium Chloride 1,000 ML 200 ML IVCONT (16:02)
--- NOTE | 2022-07-18 16:16 | PM.EVENT ---
Event Note Date of Service: 07/18/22 Event Note: Rapid response called for blood pressure 66/40 On examination patient awake alert skin warm and dry, no acute distress no symptoms of lightheadedness or dizziness Heart irregular rate rhythm Lungs clear Extremities no edema Neuro awake alert Back examination as per RN no drainage noted Patient treated with IV fluids blood pressure improved to systolic greater than 100 Medication reviewed will discontinue losartan 25 mg, continue metoprolol 150 b.i.d. and Eliquis Follow BMP and CBC Oxygenation and blood sugars stable Time Spent With Patient Time: Total time managing care of this patient today ____ minutes.
[2022-07-18 16:17] LABS: Glucose, Whole Blood 180 mg/dL (60-115)
[2022-07-18 17:09] LABS: Hematocrit 21.9 % (42.0-52.0); Mean Corpuscular Hemoglobin 27.6 pg (27.0-33.0); Mean Corpuscular Volume 86.2 fL (80.0-98.0); Platelet Count 206 X10*3/uL (160-400); Red Blood Count 2.54 X10*6/uL (4.60-5.80); Red Cell Distribution Width 15.2 % (11.0-16.0); White Blood Count 8.1 X10*3/uL (4.8-10.8)
[2022-07-18 17:16] LABS: Anion Gap 10 (12-20); Calcium 7.8 mg/dL (8.4-10.2); Carbon Dioxide 30 mmol/L (22-29); Chloride 103 mmol/L (96-108); Glucose Random 161 mg/dL (60-115); Potassium 5.2 mmol/L (3.3-5.1); Sodium 138 mmol/L (135-145)
[2022-07-18 17:30] LABS: Blood Urea Nitrogen 55 mg/dL (9-16); Creatinine Clr Calc Pharmacy 45.3; Estimated Glomerular Filt Rate 52
[2022-07-18 20:30] LABS: Glucose, Whole Blood 135 mg/dL (60-115)
[2022-07-19] VITALS (13 sets, daily range): BP systolic 82–125; BP diastolic 43–95; PULSE 78–171; RESP 16–19; TEMP 36.3–37.4; O2SAT 94–98
[2022-07-19] MEDS: Morphine Sulfate 2 MG/ML CARTRIDGE IVPUSH (01:54)
[2022-07-19 07:47] LABS: Glucose, Whole Blood 232 mg/dL (60-115)
[2022-07-19 07:59] LABS: Hematocrit 25.3 % (42.0-52.0); Hemoglobin 8.3 g/dl (14.0-18.0); Mean Corpuscular HGB Conc 32.8 g/dl (31.0-36.0); Mean Corpuscular Hemoglobin 27.9 pg (27.0-33.0); Mean Corpuscular Volume 84.9 fL (80.0-98.0); Mean Platelet Volume 9.3 fL (9.4-12.4); Platelet Count 229 X10*3/uL (160-400); Red Blood Count 2.98 X10*6/uL (4.60-5.80)
[2022-07-19] MEDS: Digoxin 0.5 MG/2 ML AMPUL 0.25 MG IVPUSH (08:31)
--- NOTE | 2022-07-19 09:20 | P.PNGS_ITS ---
Subjective Subjective Date of Service: 07/19/22 <Nancy Whitfield PA-C - Last Filed: 07/19/22 09:28> 07/19/22 <Brayan Ho MD - Last Filed: 07/19/22 12:34> Interval history: Rapid response yesterday due to hypotension/tachycardia. Stat labs- Hgb 7. Given IVF, 2U PRBC with improvement in BP. This morning, patient alert. C/o soreness at ulcer. <Nancy Whitfield PA-C - Last Filed: 07/19/22 09:28> Physical Exam Vital Signs: Vital Signs: Last Vital Signs Temp 98.9 F 07/19/22 09:16 Pulse 168 H 07/19/22 09:16 Resp 18 07/19/22 09:16 BP 114/60 07/19/22 09:16 Pulse Ox 98 07/19/22 09:11 O2 Del Method 07/19/22 09:11 O2 Flow Rate 2 07/19/22 07:33 BMI result Body Mass Index 26.6 <Nancy Whitfield PA-C - Last Filed: 07/19/22 09:28> Const: General: comfortable and alert <KWAME Meza Last Fi led: 07/19/22 09:28> Resp: Effort & Inspection: normal respiratory effort <KWAME Meza Last Filed: 07/19/22 09:28> Cardio: Rate: tachycardic <Nancy Whitfield PA-C - Last Filed: 07/19/22 09:28> Back/Spine/Pelvis: Other: sacral decubitus ulcer- areas of necrosis and dusky appearing subq tissue, large clot at inferior portion, no active bleeding <Nancy Whitfield PA-C - Last Filed: 07/19/22 09:28> Skin: General skin exam: no rashes or lesions noted <KWAME Meza Last Filed: 07/19/22 09:28> Extrem: General: No no pedal edema <KWAME Meza Last Filed: 07/19/22 09:28> Objective Data Active Medications Acetaminophen (Acetaminophen 325 Mg Tablet) 650 mg PO Q6H PRN PRN Reason: Pain, Mild (Pain Scale 1-3) Last Admin: 07/16/22 19:07 Dose: 650 mg Documented By: RIC Apixaban (Apixaban 5 Mg Tablet) 5 mg PO BID [facility] Last Admin: 07/18/22 20:40 Dose: Not Given Documented By: PATRICE Non-Admin Reason: PT drowsy Dextrose (Dextrose 50 % 25 Gm/50 Ml Syringe) 25 gm IVPUSH Q15M PRN; Protocol PRN Reason: per Hypoglycemia Standing Ord. Docusate Sodium (Docusate Sodium 100 Mg Capsule) 100 mg PO BID [facility] Last Admin: 07/18/22 20:39 Dose: Not Given Documented By: PATRICE Non-Admin Reason: PT unable Finasteride (Finasteride 5 Mg Tablet) 5 mg PO DAILY [facility] Last Admin: 07/18/22 08:24 Dose: 5 mg Documented By: TONNY Glucose (Glucose Gel 15 Gm Gel..Gram.) 15 gm PO Q15M PRN; Protocol PRN Reason: per Hypoglycemia Standing Ord. Sodium Chloride (Ns) 1,000 mls @ 150 mls/hr IVCONT .Q6H40M [facility] Insulin Glargine (Insulin Glargine,Hum.Rec.Anlog 100 Unit/Ml 10 Ml Vial) 20 unit SUBCUT DAILY@0730 [facility] Last Admin: 07/18/22 08:23 Dose: 20 unit Documented By: TONNY Insulin Glargine (Insulin Glargine,Hum.Rec.Anlog 100 Unit/Ml 10 Ml Vial) 5 unit SUBCUT BEDTIME [facility] Last Admin: 07/18/22 20:40 Dose: Not Given Documented By: PATRICE Non-Admin Reason: NPO Insulin Human Lispro (Insulin Lispro 100 Unit/Ml 3 Ml Vial) 0 unit SUBCUT QIDACHS [facility]; Protocol Last Admin: 07/18/22 20:42 Dose: Not Given Documented By: PATRICE Non-Admin Reason: No Insulin Coverage Lidocaine (Lidocaine 4 % Patch Adh..Patch) 1 patch TRANSDERMA DAILY [facility]; Protocol Last Admin: 07/18/22 08:25 Dose: 1 patch Documented By: TONNY Metoprolol Tartrate (Metoprolol Tartrate 50 Mg Tablet) 150 mg PO BID [facility]; Protocol Last Admin: 07/18/22 20:40 Dose: Not Given Documented By: PATRICE Non-Admin Reason: PT drowsy Morphine Sulfate (Morphine Sulfate 2 Mg/Ml Cartridge) 2 mg IVPUSH Q4H PRN; Protocol PRN Reason: Pain, Severe (Pain Scale 7-10) Last Admin: 07/19/22 01:54 Dose: 2 mg Documented By: PATRICE Ondansetron HCl (Ondansetron Hcl 4 Mg/2 Ml Vial) 4 mg IVPUSH Q8H PRN PRN Reason: Nausea and Vomiting Last Admin: 07/07/22 01:05 Dose: 4 mg Documented By: MARIANN Ondansetron HCl (Ondansetron Hcl 4 Mg/2 Ml Vial) 4 mg IVPUSH ONCE PRN PRN Reason: Nausea and Vomiting Oxycodone HCl (Oxycodone Hcl Immed Release 5 Mg Tablet) 5 mg PO TID [facility] Stop: 07/19/22 21:01 Last Admin: 07/18/22 20:41 Dose: Not Given Documented By: PATRICE Non-Admin Reason: PT drowsy/unable Pharmacy Consult (Consult Rx Perform Med Rec) 1 each MISCELLANE ONCE PRN PRN Reason: Consult order Polyethylene Glycol (Polyethylene Glycol 3350 17 Gm Powd.Pack) 17 gm PO DAILY PRN PRN Reason: constipation Last Admin: 06/28/22 22:01 Dose: 17 gm Documented By: ADRIANA Polyethylene Glycol (Polyethylene Glycol 3350 17 Gm Powd.Pack) 17 gm PO DAILY [facility] Last Admin: 07/18/22 08:23 Dose: 17 gm Documented By: TONNY Sodium Chloride (0.9 % Sodium Chloride Flush 3 Ml Syringe) 3 ml IVFLUSH QSHIFT [facility] Last Admin: 07/18/22 20:51 Dose: 3 ml Documented By: PATRICE Tamsulosin HCl (Tamsulosin Hcl 0.4 Mg Capsule) 0.8 mg PO DAILY [facility] Last Admin: 07/18/22 08:24 Dose: 0.8 mg Documented By: TONNY Urea (Urea 15 Gm Powder) 30 gm PO DAILY [facility] Last Admin: 07/18/22 08:23 Dose: 30 gm Documented By: TONNY Vitamin D (Cholecalciferol (Vitamin D3) 25 Mcg Tablet) 50 mcg PO DAILY [facility] Last Admin: 07/18/22 08:24 Dose: 50 mcg Documented By: TONNY Zinc Acetate/Diphenhydramine (Diphenhydramine Hcl 2 % Cream 28 Gm Tube) 1 appl TOPICAL TID PRN; Protocol PRN Reason: itching <Nancy Whitfield PA-C - Last Filed: 07/19/22 09:28> Labs CBC & Chem 7: : 07/19/22 07:45 07/18/22 16:46 <Nancy Whitfield PA-C - Last Filed: 07/19/22 09:28> Labs: Laboratory Results - last 24 hr 07/18/22 07/18/22 07/18/22 11:28 15:44 16:46 MCV 86.2 MCH 27.6 MCHC 32.0 RDW 15.2 Plt Count 206 D MPV 9.0 L Absolute Nucleated RBC 0.000 Nucleated RBC % (auto) 0.0 Anion Gap Estim Creat Clear Calc Estimated GFR POC Glucose 269 H 180 H Random Glucose Calcium Blood Type Antibody Screen Crossmatch 07/18/22 07/18/22 07/18/22 16:46 18:30 20:26 MCV MCH MCHC RDW Plt Count MPV Absolute Nucleated RBC Nucleated RBC % (auto) Anion Gap 10 L Estim Creat Clear Calc 45.3 Estimated GFR 52 POC Glucose 135 H Random Glucose 161 H Calcium 7.8 L Blood Type A Positive Antibody Screen NEGATIVE Crossmatch See Detail 07/19/22 07/19/22 07:39 07:45 MCV 84.9 MCH 27.9 MCHC 32.8 RDW 15.0 Plt Count 229 MPV 9.3 L Absolute Nucleated RBC 0.000 Nucleated RBC % (auto) 0.0 Anion Gap Estim Creat Clear Calc Estimated GFR POC Glucose 232 H Random Glucose Calcium Blood Type Antibody Screen Crossmatch <Nancy Whitfield PA-C - Last Filed: 07/19/22 09:28> Procedures Date of Service Date of Service: 07/19/22 <Nancy Whitfield PA-C - Last Filed: 07/19/22 09:28> Progress Note: A&P Assessment and plan (1) Stage 4 decubitus ulcer: Status: Acute <KWAME Meza Last Filed: 07/19/22 09:28> (2) Status post excisional debridement: Status: Acute <KWAME Meza Last Filed: 07/19/22 09:28> Assessment and Plan: 81 year old male admitted for hypoxia and respiratory failure following a fall found to have a sacral decubitus ulcer with necrotic skin requiring debridement in the OR. He was noted to have increased necrotic tissue at the base of the wound and required repeat debridement yesterday. Ulcer now with extensive area of skin, subcutaneous, and muscle necrosis extending down to coccyx. BP remains soft this am with SBP in 90s and remains tachycardic. Hgb with some improvement following transfusion. The sacral ulcer dressing was saturated with sanguineous drainage but on exam this morning there was no active bleeding. Wound repacked with fluffs, abd dressing. He does need further debridement and hopefully wound vac placement but this can be done later once he is more stable. Continue supportive care of wound care, frequent repositioning, air loss bed, nutritional support. <Nancy Whitfield PA-C - Last Filed: 07/19/22 09:28> Time Spent With Patient Time: Total time managing care of this patient today 45 minutes. <Nancy Whitfield PA-C - Last Filed: 07/19/22 09:28> Quality Stroke Does the patient have a stroke diagnosis?: No <Nancy Whitfield PA-C - Last Filed: 07/19/22 09:28> VTE Prior VTE?: No <Nancy Whitfield PA-C - Last Filed: 07/19/22 09:28> VTE Risk Level:: Medical - moderate - high <KWAME Meza Last Filed: 07/19/22 09:28> VTE Device Contraindication: Treatment Not Indicated <Nancy Whitfield PA-C - Last Filed: 07/19/22 0 9:28> VTE Drug Contraindication: N/A - Med Ordered <KWAME Meza Last Filed: 07/19/22 09:28>
[2022-07-19 09:44] LABS: Glucose, Whole Blood 238 mg/dL (60-115)
[2022-07-19] MEDS: Insulin Glargine,Hum.rec.anlog 100 UNIT/ML 10 ML VIAL 20 UNIT SUBCUT (09:50)
[2022-07-19] MEDS: Apixaban 5 MG TABLET PO ×2 (09:50→20:07)
[2022-07-19] MEDS: Insulin Lispro 100 UNIT/ML 3 ML VIAL SUBCUT ×4 (09:50→20:40)
[2022-07-19] MEDS: oxyCODONE HCl Immed Release 5 MG TABLET PO ×3 (09:50→20:02)
[2022-07-19] MEDS: Tamsulosin HCL 0.4 MG CAPSULE 0.8 MG PO (09:53)
[2022-07-19] MEDS: Finasteride 5 MG TABLET PO (09:53)
[2022-07-19] MEDS: Docusate Sodium 100 MG CAPSULE PO ×2 (09:54→19:58)
[2022-07-19] MEDS: Metoprolol Succinate ER 100 MG TAB.ER.24H PO (10:19)
--- NOTE | 2022-07-19 10:26 | MHC.CM.PN ---
Patient will return to the OR today. Plan is for debridement and possible wound vac placement. A Clinical update has been sent to facilities.
[2022-07-19] MEDS: Metoprolol Tartrate 5 MG/5 ML VIAL IVPUSH (10:37)
[2022-07-19 11:38] LABS: Glucose, Whole Blood 319 mg/dL (60-115)
--- NOTE | 2022-07-19 12:12 | HO.PM.IMPN ---
Subjective Subjective Date of Service: 07/19/22 Interval History: this morning tele monitor heart rate in 160-170 range with soft blood pressure, patient asymptomatic denies lightheadedness, dizziness, no chest pain, no palpitation requesting for water since patient NPO for possible debridement of decubitus ulcer. Review of Systems General no headache no dizziness no fever chills. CVS no chest pain, no palpitation. Respiratory no cough no sob Gastrointestinal no nausea no vomiting, no abdominal pain musculoskeletal back pain Review of Systems: Yes all other systems are reviewed and are negative Physical Exam Vital Signs: Vital Signs: Last Vital Signs Temp 97.4 F 07/19/22 11:21 Pulse 86 07/19/22 11:21 Resp 18 07/19/22 11:21 BP 82/43 L 07/19/22 11:21 Pulse Ox 96 07/19/22 11:21 O2 Del Method 07/19/22 11:21 O2 Flow Rate 2 07/19/22 07:33 BMI result Body Mass Index 26.6 Const: Other: Gen:? Awake alert, in no acute distr ess HEENT: sclera anicteric, moist m ucus membranes Nec k: supple Lungs: c lear to auscultati on bilaterally Hea rt: tachyirregula r irregular, no mu rmurs Abd: soft, n on-tender, non-dis tended Ext: no kylee ma Skin: pale, wa rm sacral decubitu s ulcer with larg e clot with areas of necrosis and du michael appearing subc utaneous tissue as per General surge ry Neuro: alert an d oriented x3, no focal findings Psy ch: appropriate af fect Objective Data Active Medications Acetaminophen (Acetaminophen 325 Mg Tablet) 650 mg PO Q6H PRN PRN Reason: Pain, Mild (Pain Scale 1-3) Last Admin: 07/16/22 19:07 Dose: 650 mg Documented By: RIC Apixaban (Apixaban 5 Mg Tablet) 5 mg PO BID [facility] Last Admin: 07/19/22 09:50 Dose: 5 mg Documented By: TONNY Dextrose (Dextrose 50 % 25 Gm/50 Ml Syringe) 25 gm IVPUSH Q15M PRN; Protocol PRN Reason: per Hypoglycemia Standing Ord. Docusate Sodium (Docusate Sodium 100 Mg Capsule) 100 mg PO BID [facility] Last Admin: 07/19/22 09:54 Dose: 100 mg Documented By: TONNY Finasteride (Finasteride 5 Mg Tablet) 5 mg PO DAILY [facility] Last Admin: 07/19/22 09:53 Dose: 5 mg Documented By: TONNY Glucose (Glucose Gel 15 Gm Gel..Gram.) 15 gm PO Q15M PRN; Protocol PRN Reason: per Hypoglycemia Standing Ord. Sodium Chloride (Ns) 1,000 mls @ 150 mls/hr IVCONT .Q6H40M [facility] Last Admin: 07/19/22 10:00 Dose: Not Given Documented By: TONNY Non-Admin Reason: Medication Discontinued Insulin Glargine (Insulin Glargine,Hum.Rec.Anlog 100 Unit/Ml 10 Ml Vial) 20 unit SUBCUT DAILY@0730 [facility] Last Admin: 07/19/22 09:50 Dose: 20 unit Documented By: TONNY Insulin Glargine (Insulin Glargine,Hum.Rec.Anlog 100 Unit/Ml 10 Ml Vial) 5 unit SUBCUT BEDTIME [facility] Last Admin: 07/18/22 20:40 Dose: Not Given Documented By: PATRICE Non-Admin Reason: NPO Insulin Human Lispro (Insulin Lispro 100 Unit/Ml 3 Ml Vial) 0 unit SUBCUT QIDACHS [facility]; Protocol Last Admin: 07/19/22 11:59 Dose: 8 unit Documented By: TONNY Lidocaine (Lidocaine 4 % Patch Adh..Patch) 1 patch TRANSDERMA DAILY [facility]; Protocol Last Admin: 07/19/22 09:57 Dose: Not Given Documented By: TONNY Non-Admin Reason: Patient Condition Contraindication Morphine Sulfate (Morphine Sulfate 2 Mg/Ml Cartridge) 2 mg IVPUSH Q4H PRN; Protocol PRN Reason: Pain, Severe (Pain Scale 7-10) Last Admin: 07/19/22 01:54 Dose: 2 mg Documented By: PATRICE Ondansetron HCl (Ondansetron Hcl 4 Mg/2 Ml Vial) 4 mg IVPUSH Q8H PRN PRN Reason: Nausea and Vomiting Last Admin: 07/07/22 01:05 Dose: 4 mg Documented By: MARIANN Ondansetron HCl (Ondansetron Hcl 4 Mg/2 Ml Vial) 4 mg IVPUSH ONCE PRN PRN Reason: Nausea and Vomiting Oxycodone HCl (Oxycodone Hcl Immed Release 5 Mg Tablet) 5 mg PO TID [facility] Stop: 07/19/22 21:01 Last Admin: 07/19/22 09:50 Dose: 5 mg Documented By: TONNY Pharmacy Consult (Consult Rx Perform Med Rec) 1 each MISCELLANE ONCE PRN PRN Reason: Consult order Polyethylene Glycol (Polyethylene Glycol 3350 17 Gm Powd.Pack) 17 gm PO DAILY PRN PRN Reason: constipation Last Admin: 06/28/22 22:01 Dose: 17 gm Documented By: ADRIANA Polyethylene Glycol (Polyethylene Glycol 3350 17 Gm Powd.Pack) 17 gm PO DAILY [facility] Last Admin: 07/19/22 10:05 Dose: Not Given Documented By: TONNY Non-Admin Reason: Pt NOP hold Sodium Chloride (0.9 % Sodium Chloride Flush 3 Ml Syringe) 3 ml IVFLUSH QSHIFT [facility] Last Admin: 07/19/22 09:50 Dose: Not Given Documented By: TONNY Non-Admin Reason: IV Running Tamsulosin HCl (Tamsulosin Hcl 0.4 Mg Capsule) 0.8 mg PO DAILY [facility] Last Admin: 07/19/22 09:53 Dose: 0.8 mg Documented By: TONNY Urea (Urea 15 Gm Powder) 30 gm PO DAILY [facility] Last Admin: 07/19/22 10:06 Dose: Not Given Documented By: TONNY Non-Admin Reason: NA wnl Vitamin D (Cholecalciferol (Vitamin D3) 25 Mcg Tablet) 50 mcg PO DAILY [facility] Last Admin: 07/19/22 10:05 Dose: Not Given Documented By: TONNY Non-Admin Reason: Pt was npo. Holding Zinc Acetate/Diphenhydramine (Diphenhydramine Hcl 2 % Cream 28 Gm Tube) 1 appl TOPICAL TID PRN; Protocol PRN Reason: itching Labs CBC & Chem 7: 07/19/22 07:45 07/18/22 16:46 Labs: Laboratory Results - last 24 hr 07/18/22 07/18/22 07/18/22 15:44 16:46 16:46 MCV 86.2 MCH 27.6 MCHC 32.0 RDW 15.2 Plt Count 206 D MPV 9.0 L Absolute Nucleated RBC 0.000 Nucleated RBC % (auto) 0.0 Anion Gap 10 L Estim Creat Clear Calc 45.3 Estimated GFR 52 POC Glucose 180 H Random Glucose 161 H Calcium 7.8 L Blood Type Antibody Screen Crossmatch 07/18/22 07/18/22 07/19/22 18:30 20:26 07:39 MCV MCH MCHC RDW Plt Count MPV Absolute Nucleated RBC Nucleated RBC % (auto) Anion Gap Estim Creat Clear Calc Estimated GFR POC Glucose 135 H 232 H Random Glucose Calcium Blood Type A Positive Antibody Screen NEGATIVE Crossmatch See Detail 07/19/22 07/19/22 07/19/22 07:45 09:40 11:24 MCV 84.9 MCH 27.9 MCHC 32.8 RDW 15.0 Plt Count 229 MPV 9.3 L Absolute Nucleated RBC 0.000 Nucleated RBC % (auto) 0.0 Anion Gap Estim Creat Clear Calc Estimated GFR POC Glucose 238 H 319 H Random Glucose Calcium Blood Type Antibody Screen Crossmatch Assessment and Plan (1) Traumatic subarachnoid hemorrhage: Status: Acute (2) Cerebral contusion: Status: Acute (3) Physical deconditioning: Status: Acute (4) Hyponatremia: Status: Acute Plan 74yo M with DM2, HTN, HLD, chronic venous stasis dermatitis presented with mechanical fall, admitted for hypoxia due to PNA # Atrial fibrillation RVR heart rate in 160-170 range and hypotension likely due to blood loss at site of decubiti ulcer with anemia and due to missing dosages of metoprolol due to low blood pressure in last 24 hours will treat patient with IV digoxin 0.25 mg x 1 treat patient with IV fluid normal saline 150 mL/hour, give 1 unit of blood, once his blood pressure improves will give IV metoprolol and resume by mouth metoprolol follow clinical course closely , hold apixaban today # acute blood loss anemia ,blood loss at site of decub ulcer patient received 1 unit of packed RBC hematocrit improved due to persistent hypotension will transfuse 1 more unit hold apixaban follow CBC. # traumatic SAH - no headache, no dizziness # acute hypoxic respiratory failure due to PNA - finished 10d of ABX, oxygenation stable 94% on room air # urinary retention - failed voiding trial x2, Lemus re-placed 07/11; continue tamsulosin and finasteride added on 07/12 # mechanical fall - difficulty ambulating; awaiting SNF placement # generalized weakness - 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 but not clinically NPH per Neurology # acute/chronic hypoNa - resolved,on fluid restriction # new-onset AF/RVR - LVEF >70%, seen by Cardiology, continue metoprolol, hold apixaban due to significant anemia and blood loss at site of sacral decubitus ulcer # incidental 1.3cm pancreatic lesions, may reflect adjacent pancreatic cysts - outpt MRI/MRCP # Sacral decubitus ulcer stage 4 - on 07/08 had debridement of sacral decubitus ulcer, including skin, dermis, subcutaneous tissue and muscle; operative findings of necrotic skin, subcutaneous tissue and muscle. Ulcer measured approximately 10 cm x 10 cm in diameter with a depth of 4 cm = stage 3; Underwent repeat debridement in OR 07/17 entire wound measured 14-8 cm with the depth of 3 cm dissection was continued down to viable tissue and hemostasis was assured, wound packed with saline soaked Kerlix followed by dry Fluff and ABD pads cont. IV morphine as needed for pain control, and schedule oxycodone 5 mg t.i.d. x2 days was scheduled for debridement again today, procedure was postponed due to hypotension and tachycardia patient will need further debridement and wound VAC placement once patient is more stable # DM2 - blood sugar in 200s, continues basal/bolus insulin # HTN - soft blood pressures losartan and hydralazine discontinued, continue metoprolol # HLD - statin # VTE ppx: SCDs, apixaban In my clinical judgment, the patient requires continued inpatient hospitalization for the following reasons: anemia, hypotension, AFib with RVR, SNF placement and follow-up on stage IV decub ulcer. Time Spent With Patient Time: Total time managing care of this patient today ____ minutes. Quality Stroke Does the patient have a stroke diagnosis?: No VTE Prior VTE?: No VTE Risk Level:: Medical - moderate - high VTE Device Contraindication: Treatment Not Indicated VTE Drug Contraindication: N/A - Med Ordered
--- NOTE | 2022-07-19 13:06 | MHC.CLN ---
F/U DIET= DIABETIC 2000 KCALS, NDD3 CONSISTENCY, 1800 ML FLUID RESTRICTION. ENSURE BID TO PROMOTE WOUND HEALING. PROVIDES ADDITIONAL 700 KCALS, 40 G PROTEIN. UNSTAGEABLE WOUND TO COCCYX. POOR INTAKE 07/18 LIKELY DUE TO EPISODE OF HYPOTENSION/TACHYCARDIA. FOLLOW FOR INTAKE AND WOUND.
[2022-07-19] MEDS: 0.9 % Sodium Chloride 1,000 ML 150 ML IVCONT (13:20)
--- NOTE | 2022-07-19 13:52 | PC.NURSE ---
07/19 07:30 Pt BP 96/58 w HR 171. notified. Placed on telemetry. Given IVF and 1 unit RBC in attempt to raise BP. BP raised to 114/60. Pt received 5mg IV metropolol. recheck- HR 86 BP 82/43. Continued IVF- recheck of BP @14:00 -114/46. IVF DC.
[2022-07-19] MEDS: 0.9 % Sodium Chloride Flush 3 ML SYRINGE IVFLUSH ×2 (15:07→20:45)
[2022-07-19 15:42] LABS: Glucose, Whole Blood 267 mg/dL (60-115)
[2022-07-19] MEDS: Metoprolol Tartrate 50 MG TABLET PO (20:04)
[2022-07-19 20:31] LABS: Glucose, Whole Blood 269 mg/dL (60-115)
[2022-07-19] MEDS: Insulin Glargine,Hum.rec.anlog 100 UNIT/ML 10 ML VIAL SUBCUT (20:41)
[2022-07-20] VITALS (7 sets, daily range): BP systolic 101–129; BP diastolic 55–68; PULSE 68–118; RESP 16–20; TEMP 35.9–36.8; O2SAT 94–98
--- NOTE | 2022-07-20 | ECG_ITS ---
Test Reason : tachycardia Blood Pressure : / mmHG Vent. Rate : 135 BPM Atrial Rate : 178 BPM P-R Int : 000 ms QRS Dur : 116 ms QT Int : 272 ms P-R-T Axes : 000 -83 -24 degrees QTc Int : 408 ms Undetermined rhythm - possibly atrial fibrillation vs flutter Incomplete right bundle branch block Left anterior fascicular block Possible Lateral infarct (cited on or before 17-JUL-2022) Abnormal ECG When compared with ECG of 17-JUL-2022 14:31, No significant changes seen Referred By: Narciso Wright Electronically Signed By:CORTEZ ROMERO
[2022-07-20] MEDS: Morphine Sulfate 2 MG/ML CARTRIDGE IVPUSH ×3 (04:59→15:59)
[2022-07-20 06:37] LABS: Hematocrit 25.1 % (42.0-52.0); Hemoglobin 8.3 g/dl (14.0-18.0); Mean Corpuscular HGB Conc 33.1 g/dl (31.0-36.0); Mean Corpuscular Hemoglobin 28.1 pg (27.0-33.0); Mean Corpuscular Volume 85.1 fL (80.0-98.0); Mean Platelet Volume 9.1 fL (9.4-12.4); NRBC Pct Auto 0.3 /100WBC (0.0-0.2); Platelet Count 206 X10*3/uL (160-400); Red Blood Count 2.95 X10*6/uL (4.60-5.80); Red Cell Distribution Width 15.3 % (11.0-16.0); White Blood Count 6.8 X10*3/uL (4.8-10.8)
[2022-07-20 07:05] LABS: Anion Gap 9 (12-20); Blood Urea Nitrogen 33 mg/dL (9-16); Carbon Dioxide 30 mmol/L (22-29); Chloride 99 mmol/L (96-108); Creatinine Clr Calc Pharmacy 103.2; Estimated Glomerular Filt Rate > 60; Glucose Random 174 mg/dL (60-115); Potassium 4.2 mmol/L (3.3-5.1); Sodium 134 mmol/L (135-145)
[2022-07-20 07:27] LABS: Glucose, Whole Blood 167 mg/dL (60-115)
[2022-07-20] MEDS: Ferrous Sulfate 324 MG TABLET.DR PO ×2 (08:32→16:00)
[2022-07-20] MEDS: Docusate Sodium 100 MG CAPSULE PO ×2 (08:32→21:57)
[2022-07-20] MEDS: Apixaban 5 MG TABLET PO (08:32)
[2022-07-20] MEDS: Acetaminophen 325 MG TABLET 650 MG PO (08:32)
[2022-07-20] MEDS: Finasteride 5 MG TABLET PO (08:32)
[2022-07-20] MEDS: Cholecalciferol (Vitamin D3) 25 MCG TABLET 50 MCG PO (08:32)
[2022-07-20] MEDS: Tamsulosin HCL 0.4 MG CAPSULE 0.8 MG PO (08:32)
[2022-07-20] MEDS: Insulin Lispro 100 UNIT/ML 3 ML VIAL SUBCUT ×3 (08:32→18:17)
[2022-07-20] MEDS: Lidocaine 4 % Patch ADH..PATCH 1 PATCH TRANSDERMA (08:33)
[2022-07-20] MEDS: Insulin Glargine,Hum.rec.anlog 100 UNIT/ML 10 ML VIAL 20 UNIT SUBCUT (08:33)
[2022-07-20] MEDS: Urea 15 GM POWDER 30 GM PO (08:33)
[2022-07-20] MEDS: polyethylene glycoL 3350 17 GM POWD.PACK PO (08:33)
[2022-07-20] MEDS: 0.9 % Sodium Chloride Flush 3 ML SYRINGE IVFLUSH ×3 (08:34→22:01)
[2022-07-20] MEDS: Digoxin 0.5 MG/2 ML AMPUL IVPUSH (09:51)
[2022-07-20] MEDS: 0.9 % Sodium Chloride 1,000 ML 200 ML IVCONT (09:51)
[2022-07-20] MEDS: Midodrine HCl 5 MG TABLET PO (09:51)
--- NOTE | 2022-07-20 10:42 | PM.PNGS ---
Subjective Subjective Date of Service: 07/20/22 Interval history: no new complaints he says he is ok Physical Exam Vital Signs: Vital Signs: Last Vital Signs Temp 98.3 F 07/20/22 07:19 Pulse 118 H 07/20/22 10:06 Resp 20 07/20/22 10:06 BP 121/55 L 07/20/22 10:06 Pulse Ox 95 07/20/22 07:19 O2 Del Method 07/20/22 07:19 O2 Flow Rate 2 07/19/22 07:33 BMI result Body Mass Index 26.6 Const: General: comfortable and no acute distress Cardio: Rhythm: abnormal rhythm GI: Palpation (GI): Soft to palpation Back/Spine/Pelvis: Other: large sacral decub ulcer with some blood clots Objective Data Active Medications Acetaminophen (Acetaminophen 325 Mg Tablet) 650 mg PO Q6H PRN PRN Reason: Pain, Mild (Pain Scale 1-3) Last Admin: 07/20/22 08:32 Dose: 650 mg Documented By: DIPAK Apixaban (Apixaban 5 Mg Tablet) 5 mg PO BID [facility] Last Admin: 07/20/22 08:32 Dose: 5 mg Documented By: DIPAK Dextrose (Dextrose 50 % 25 Gm/50 Ml Syringe) 25 gm IVPUSH Q15M PRN; Protocol PRN Reason: per Hypoglycemia Standing Ord. Docusate Sodium (Docusate Sodium 100 Mg Capsule) 100 mg PO BID [facility] Last Admin: 07/20/22 08:32 Dose: 100 mg Documented By: DIPAK Ferrous Sulfate (Ferrous Sulfate 324 Mg Tablet.) 324 mg PO BIDWM [facility] Last Admin: 07/20/22 08:32 Dose: 324 mg Documented By: DIPAK Finasteride (Finasteride 5 Mg Tablet) 5 mg PO DAILY [facility] Last Admin: 07/20/22 08:32 Dose: 5 mg Documented By: DIPAK Glucose (Glucose Gel 15 Gm Gel..Gram.) 15 gm PO Q15M PRN; Protocol PRN Reason: per Hypoglycemia Standing Ord. Sodium Chloride (Ns) 1,000 mls @ 200 mls/hr IVCONT .Q5H [facility] Stop: 07/20/22 14:14 Last Admin: 07/20/22 09:51 Dose: 200 mls/hr Documented By: DIPAK Insulin Glargine (Insulin Glargine,Hum.Rec.Anlog 100 Unit/Ml 10 Ml Vial) 20 unit SUBCUT DAILY@0730 [facility] Last Admin: 07/20/22 08:33 Dose: 20 unit Documented By: DIPAK Insulin Glargine (Insulin Glargine,Hum.Rec.Anlog 100 Unit/Ml 10 Ml Vial) 5 unit SUBCUT BEDTIME [facility] Last Admin: 07/19/22 20:41 Dose: 5 unit Documented By: PATRICE Insulin Human Lispro (Insulin Lispro 100 Unit/Ml 3 Ml Vial) 0 unit SUBCUT QIDACHS [facility]; Protocol Last Admin: 07/20/22 08:32 Dose: 2 unit Documented By: DIPAK Lidocaine (Lidocaine 4 % Patch Adh..Patch) 1 patch TRANSDERMA DAILY [facility]; Protocol Last Admin: 07/20/22 08:33 Dose: 1 patch Documented By: DIPAK Morphine Sulfate (Morphine Sulfate 2 Mg/Ml Cartridge) 2 mg IVPUSH Q4H PRN; Protocol PRN Reason: Pain, Severe (Pain Scale 7-10) Last Admin: 07/20/22 09:51 Dose: 2 mg Documented By: DIPAK Ondansetron HCl (Ondansetron Hcl 4 Mg/2 Ml Vial) 4 mg IVPUSH Q8H PRN PRN Reason: Nausea and Vomiting Last Admin: 07/07/22 01:05 Dose: 4 mg Documented By: MARIANN Ondansetron HCl (Ondansetron Hcl 4 Mg/2 Ml Vial) 4 mg IVPUSH ONCE PRN PRN Reason: Nausea and Vomiting Pharmacy Consult (Consult Rx Perform Med Rec) 1 each MISCELLANE ONCE PRN PRN Reason: Consult order Polyethylene Glycol (Polyethylene Glycol 3350 17 Gm Powd.Pack) 17 gm PO DAILY PRN PRN Reason: constipation Last Admin: 06/28/22 22:01 Dose: 17 gm Documented By: ADRIANA Polyethylene Glycol (Polyethylene Glycol 3350 17 Gm Powd.Pack) 17 gm PO DAILY [facility] Last Admin: 07/20/22 08:33 Dose: 17 gm Documented By: DIPAK Sodium Chloride (0.9 % Sodium Chloride Flush 3 Ml Syringe) [facility] Last Admin: 07/20/22 08:34 Dose: 3 ml Documented By: DIPAK Tamsulosin HCl (Tamsulosin Hcl 0.4 Mg Capsule) 0.8 mg PO DAILY [facility] Last Admin: 07/20/22 08:32 Dose: 0.8 mg Documented By: DIPAK Urea (Urea 15 Gm Powder) 30 gm PO DAILY [facility] Last Admin: 07/20/22 08:33 Dose: 30 gm Documented By: DIPAK Vitamin D (Cholecalciferol (Vitamin D3) 25 Mcg Tablet) 50 mcg PO DAILY [facility] Last Admin: 07/20/22 08:32 Dose: 50 mcg Documented By: DIPAK Zinc Acetate/Diphenhydramine (Diphenhydramine Hcl 2 % Cream 28 Gm Tube) 1 appl TOPICAL TID PRN; Protocol PRN Reason: itching Labs CBC & Chem 7: 07/20/22 06:01 07/20/22 05:35 Labs: Laboratory Results - last 24 hr 07/18/22 07/19/22 07/19/22 18:30 11:24 15:32 MCV MCH MCHC RDW Plt Count MPV Absolute Nucleated RBC Nucleated RBC % (auto) Anion Gap Estim Creat Clear Calc Estimated GFR POC Glucose 319 H 267 H Random Glucose Calcium Crossmatch See Detail 07/19/22 07/20/22 07/20/22 20:22 05:35 06:01 MCV 85.1 MCH 28.1 MCHC 33.1 RDW 15.3 Plt Count 206 MPV 9.1 L Absolute Nucleated RBC 0.020 H Nucleated RBC % (auto) 0.3 H Anion Gap 9 L Estim Creat Clear Calc 103.2 Estimated GFR > 60 POC Glucose 269 H Random Glucose 174 H Calcium 8.0 L Crossmatch 07/20/22 07:22 MCV MCH MCHC RDW Plt Count MPV Absolute Nucleated RBC Nucleated RBC % (auto) Anion Gap Estim Creat Clear Calc Estimated GFR POC Glucose 167 H Random Glucose Calcium Crossmatch Procedures Date of Service Date of Service: 07/20/22 Progress Note: A&P Assessment and plan (1) Stage 4 decubitus ulcer: Status: Acute Assessment and Plan: I changed his dressings -wet to dry applied continue wound care plan to do wound vac on Friday in [place] Time Spent With Patient Time: Total time managing care of this patient today ____ minutes. Quality Stroke Does the patient have a stroke diagnosis?: No VTE Prior VTE?: No VTE Risk Level:: Medical - moderate - high VTE Device Contraindication: Treatment Not Indicated VTE Drug Contraindication: N/A - Med Ordered
[2022-07-20 11:17] LABS: Glucose, Whole Blood 223 mg/dL (60-115)
--- NOTE | 2022-07-20 12:08 | P.PNIM_ITS ---
Subjective Subjective Date of Service: 07/20/22 Interval History: complaining of generalized body ache and stiffness, denies chest pain, no palpitations, no headache, no dizziness tele monitor showed atrial flutter with ventricular rate at 160-170 blood pressure is soft 90/50 Review of Systems General no headache no dizziness no fever chills. CVS no chest pain, no palpitation. Respiratory no cough no sob Gastrointestinal no nausea no vomiting, no abdominal pain Review of Systems: Yes all other systems are reviewed and are negative Physical Exam Vital Signs: Vital Signs: Last Vital Signs Temp 98.3 F 07/20/22 07:19 Pulse 118 H 07/20/22 10:06 Resp 20 07/20/22 10:06 BP 121/55 L 07/20/22 10:06 Pulse Ox 95 07/20/22 07:19 O2 Del Method 07/20/22 07:19 O2 Flow Rate 2 07/19/22 07:33 BMI result Body Mass Index 26.6 Const: Other: Gen:? Awake alert, in no acute distress HEENT: sclera anicteric, moist mucus membranes Neck: supple Lungs: clear to auscultation bilaterally Heart: irregular irregular, no murmurs Abd: soft, non-tender, non-distended Ext: no edema Skin: warm/well-perfused, sacral decubitus ulcer dressing in place, no bloody drainage noted Neuro: alert and oriented x3, no focal findings Psych: appropriate affect Objective Data Active Medications Acetaminophen (Acetaminophen 325 Mg Tablet) 650 mg PO Q6H PRN PRN Reason: Pain, Mild (Pain Scale 1-3) Last Admin: 07/20/22 08:32 Dose: 650 mg Documented By: DIPAK Apixaban (Apixaban 5 Mg Tablet) 5 mg PO BID [facility] Last Admin: 07/20/22 08:32 Dose: 5 mg Documented By: DIPAK Dextrose (Dextrose 50 % 25 Gm/50 Ml Syringe) 25 gm IVPUSH Q15M PRN; Protocol PRN Reason: per Hypoglycemia Standing Ord. Docusate Sodium (Docusate Sodium 100 Mg Capsule) 100 mg PO BID [facility] Last Admin: 07/20/22 08:32 Dose: 100 mg Documented By: DIPAK Ferrous Sulfate (Ferrous Sulfate 324 Mg Tablet.) 324 mg PO BIDWM [facility] Last Admin: 07/20/22 08:32 Dose: 324 mg Documented By: DIPAK Finasteride (Finasteride 5 Mg Tablet) 5 mg PO DAILY [facility] Last Admin: 07/20/22 08:32 Dose: 5 mg Documented By: DIPAK Glucose (Glucose Gel 15 Gm Gel..Gram.) 15 gm PO Q15M PRN; Protocol PRN Reason: per Hypoglycemia Standing Ord. Sodium Chloride (Ns) 1,000 mls @ 200 mls/hr IVCONT .Q5H [facility] Stop: 07/20/22 14:14 Last Admin: 07/20/22 09:51 Dose: 200 mls/hr Documented By: DIPAK Insulin Glargine (Insulin Glargine,Hum.Rec.Anlog 100 Unit/Ml 10 Ml Vial) 20 unit SUBCUT DAILY@0730 [facility] Last Admin: 07/20/22 08:33 Dose: 20 unit Documented By: DIPAK Insulin Glargine (Insulin Glargine,Hum.Rec.Anlog 100 Unit/Ml 10 Ml Vial) 5 unit SUBCUT BEDTIME [facility] Last Admin: 07/19/22 20:41 Dose: 5 unit Documented By: PATRICE Insulin Human Lispro (Insulin Lispro 100 Unit/Ml 3 Ml Vial) 0 unit SUBCUT QIDACHS [facility]; Protocol Last Admin: 07/20/22 08:32 Dose: 2 unit Documented By: DIPAK Lidocaine (Lidocaine 4 % Patch Adh..Patch) 1 patch TRANSDERMA DAILY [facility]; Protocol Last Admin: 07/20/22 08:33 Dose: 1 patch Documented By: DIPAK Morphine Sulfate (Morphine Sulfate 2 Mg/Ml Cartridge) 2 mg IVPUSH Q4H PRN; Protocol PRN Reason: Pain, Severe (Pain Scale 7-10) Last Admin: 07/20/22 09:51 Dose: 2 mg Documented By: DIPAK Ondansetron HCl (Ondansetron Hcl 4 Mg/2 Ml Vial) 4 mg IVPUSH Q8H PRN PRN Reason: Nausea and Vomiting Last Admin: 07/07/22 01:05 Dose: 4 mg Documented By: MARIANN Ondansetron HCl (Ondansetron Hcl 4 Mg/2 Ml Vial) 4 mg IVPUSH ONCE PRN PRN Reason: Nausea and Vomiting Pharmacy Consult (Consult Rx Perform Med Rec) 1 each MISCELLANE ONCE PRN PRN Reason: Consult order Polyethylene Glycol (Polyethylene Glycol 3350 17 Gm Powd.Pack) 17 gm PO DAILY PRN PRN Reason: constipation Last Admin: 06/28/22 22:01 Dose: 17 gm Documented By: ADRIANA Polyethylene Glycol (Polyethylene Glycol 3350 17 Gm Powd.Pack) 17 gm PO DAILY [facility] Last Admin: 07/20/22 08:33 Dose: 17 gm Documented By: DIPAK Sodium Chloride (0.9 % Sodium Chloride Flush 3 Ml Syringe) 3 ml IVFLUSH QSHIFT [facility] Last Admin: 07/20/22 08:34 Dose: 3 ml Documented By: DIPAK Tamsulosin HCl (Tamsulosin Hcl 0.4 Mg Capsule) 0.8 mg PO DAILY [facility] Last Admin: 07/20/22 08:32 Dose: 0.8 mg Documented By: DIPAK Urea (Urea 15 Gm Powder) 30 gm PO DAILY [facility] Last Admin: 07/20/22 08:33 Dose: 30 gm Documented By: DIPAK Vitamin D (Cholecalciferol (Vitamin D3) 25 Mcg Tablet) 50 mcg PO DAILY [facility] Last Admin: 07/20/22 08:32 Dose: 50 mcg Documented By: DIPAK Zinc Acetate/Diphenhydramine (Diphenhydramine Hcl 2 % Cream 28 Gm Tube) 1 appl TOPICAL TID PRN; Protocol PRN Reason: itching Labs CBC & Chem 7: 07/20/22 06:01 07/20/22 05:35 Labs: Laboratory Results - last 24 hr 07/19/22 07/19/22 07/20/22 15:32 20:22 05:35 MCV MCH MCHC RDW Plt Count MPV Absolute Nucleated RBC Nucleated RBC % (auto) Anion Gap 9 L Estim Creat Clear Calc 103.2 Estimated GFR > 60 POC Glucose 267 H 269 H Random Glucose 174 H Calcium 8.0 L 07/20/22 07/20/22 07/20/22 06:01 07:22 11:13 MCV 85.1 MCH 28.1 MCHC 33.1 RDW 15.3 Plt Count 206 MPV 9.1 L Absolute Nucleated RBC 0.020 H Nucleated RBC % (auto) 0.3 H Anion Gap Estim Creat Clear Calc Estimated GFR POC Glucose 167 H 223 H Random Glucose Calcium Assessment and Plan (1) Traumatic subarachnoid hemorrhage: Status: Acute (2) Cerebral contusion: Status: Acute (3) Physical deconditioning: Status: Acute (4) Hyponatremia: Status: Acute Plan 74yo M with DM2, HTN, HLD, chronic venous stasis dermatitis presented with mechanical fall, admitted for hypoxia due to PNA # Atrial flutter/fib with RVR heart rate in 160-170 range and hypotension likely due to blood loss at site of decubiti ulcer with anemia and due to missing dosages of metoprolol due to low blood pressure in last 24 hours will treat patient with IV digoxin 0.5 mg x 1 treat patient with IV fluid normal saline , give midodrine 5 mg x [address] on metoprolol 50 mg q.6 hours, prior dosage metoprolol 150 b.i.d. follow clinical course closely , hold apixaban today # acute blood loss anemia ,blood loss at site of decub ulcer patient received 2 unit of packed RBC hematocrit improved to 25, will place on ferrous sulfate b.i.d. # traumatic SAH - no headache, no dizziness # acute hypoxic respiratory failure due to PNA- finished 10d of ABX, oxygenation stable 94% on room air # urinary retention - failed voiding trial x2, Lemus re-placed 07/11; continue tamsulosin and finasteride added on 07/12 # mechanical fall - difficulty ambulating; awaiting SNF placement # generalized weakness - 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 but not clinically NPH per Neurology # acute/chronic hypoNa - resolved,on fluid restriction change fluid restriction to 1800 mL # new-onset AF/RVR - LVEF >70%, seen by Cardiology, continue metoprolol, hold apixaban due to significant anemia and blood loss at site of sacral decubitus ulcer # incidental 1.3cm pancreatic lesions, may reflect adjacent pancreatic cysts - outpt MRI/MRCP # Sacral decubitus ulcer stage 4 - on 07/08 had debridement of sacral decubitus ulcer, including skin, dermis, subcutaneous tissue and muscle; operative findings of necrotic skin, subcutaneous tissue and muscle. Ulcer measured approximately 10 cm x 10 cm in diameter with a depth of 4 cm = stage 3; Underwent repeat debridement in OR 07/17 entire wound measured 14-8 cm with the depth of 3 cm dissection was continued down to viable tissue cont. IV morphine as needed for pain control, and schedule oxycodone 5 mg t.i.d. patient will need further debridement and wound VAC placement once patient is more stable # DM2 - blood sugar in 200s, continues basal/bolus insulin # HTN- soft blood pressures losartan and hydralazine discontinued, continue metoprolol # HLD- statin # VTE ppx: SCDs, apixaban In my clinical judgment, the patient requires continued inpatient hospitalization for the following reasons: anemia, hypotension, AFib with RVR, SNF placement and follow-up on stage IV decub ulcer. Time Spent With Patient Time: Total time managing care of this patient today ____ minutes. Quality Stroke Does the patient have a stroke diagnosis?: No VTE Prior VTE?: No VTE Risk Level:: Medical - moderate - high VTE Device Contraindication: Treatment Not Indicated VTE Drug Contraindication: N/A - Med Ordered
[2022-07-20] MEDS: Metoprolol Tartrate 50 MG TABLET PO ×3 (14:28→21:56)
[2022-07-20] MEDS: oxyCODONE HCl Immed Release 5 MG TABLET PO ×2 (14:28→21:54)
--- NOTE | 2022-07-20 16:02 | PC.NURSE ---
HR 160's-180's. Patient asymptomatic. Dr. Wright ordered 1x dose IV digoxin. EKG. HR 90's after digoxin. BP stable. Metoprolol PO ordered.
[2022-07-20 16:28] LABS: Glucose, Whole Blood 226 mg/dL (60-115)
[2022-07-20 20:41] LABS: Glucose, Whole Blood 148 mg/dL (60-115)
[2022-07-20] MEDS: Insulin Glargine,Hum.rec.anlog 100 UNIT/ML 10 ML VIAL SUBCUT (21:57)
[2022-07-21 03:20] VITALS: BP 118/57; PULSE 88; RESP 16; TEMP 37.5; O2SAT 93
[2022-07-21 06:08] LABS: Hematocrit 25.1 % (42.0-52.0); Hemoglobin 8.3 g/dl (14.0-18.0); Mean Corpuscular HGB Conc 33.1 g/dl (31.0-36.0); Mean Corpuscular Hemoglobin 28.6 pg (27.0-33.0); Mean Corpuscular Volume 86.6 fL (80.0-98.0); Mean Platelet Volume 8.8 fL (9.4-12.4); NRBC Pct Auto 0.6 /100WBC (0.0-0.2); Platelet Count 189 X10*3/uL (160-400); Red Cell Distribution Width 15.1 % (11.0-16.0); White Blood Count 5.2 X10*3/uL (4.8-10.8)
[2022-07-21 06:49] LABS: Anion Gap 12 (12-20); Blood Urea Nitrogen 21 mg/dL (9-16); Calcium 7.8 mg/dL (8.4-10.2); Carbon Dioxide 28 mmol/L (22-29); Chloride 101 mmol/L (96-108); Creatinine Clr Calc Pharmacy 115.1; Estimated Glomerular Filt Rate > 60; Glucose Random 93 mg/dL (60-115); Potassium 4.1 mmol/L (3.3-5.1); Sodium 137 mmol/L (135-145)
[2022-07-21 07:29] LABS: Glucose, Whole Blood 115 mg/dL (60-115)
[2022-07-21 07:36] VITALS: BP 132/63; PULSE 91; RESP 20; TEMP 36.9; O2SAT 97
[2022-07-21] MEDS: Cholecalciferol (Vitamin D3) 25 MCG TABLET 50 MCG PO (08:05)
[2022-07-21] MEDS: Ferrous Sulfate 324 MG TABLET.DR PO ×2 (08:05→17:16)
[2022-07-21] MEDS: Urea 15 GM POWDER 30 GM PO (08:05)
[2022-07-21] MEDS: Tamsulosin HCL 0.4 MG CAPSULE 0.8 MG PO (08:05)
[2022-07-21] MEDS: Metoprolol Tartrate 50 MG TABLET PO ×4 (08:05→20:26)
[2022-07-21] MEDS: oxyCODONE HCl Immed Release 5 MG TABLET PO ×3 (08:05→20:26)
[2022-07-21] MEDS: Finasteride 5 MG TABLET PO (08:05)
[2022-07-21] MEDS: polyethylene glycoL 3350 17 GM POWD.PACK PO (08:05)
[2022-07-21] MEDS: Docusate Sodium 100 MG CAPSULE PO ×2 (08:05→20:26)
[2022-07-21] MEDS: 0.9 % Sodium Chloride Flush 3 ML SYRINGE IVFLUSH ×3 (08:06→20:27)
[2022-07-21] MEDS: Lidocaine 4 % Patch ADH..PATCH 1 PATCH TRANSDERMA (08:06)
[2022-07-21] MEDS: Insulin Glargine,Hum.rec.anlog 100 UNIT/ML 10 ML VIAL 20 UNIT SUBCUT (08:08)
--- NOTE | 2022-07-21 10:11 | HO.PM.IMPN ---
Subjective Subjective Date of Service: 07/21/22 Interval History: Complaining of generalized body aches, back pain. Intermittent tachycardia, atrial flutter. BP improved. No other complaints. Sitting up in bed, eating breakfast. Review of Systems General: No fevers, malaise, unintentional weight loss HEENT: No blurred vision, diplopia. No sore throat, nasal congestion, rhinorrhea, sinus pain, ear pain Cardiovascular: No chest pain, palpitations, or leg edema Respiratory: No shortness of breath, wheezing, cough GI: No abdominal pain, nausea, vomiting, diarrhea, constipation, melena, hematochezia : No dysuria, hematuria MSK: +back pain, +myalgia Neuro: No headaches, weakness, paresthesias Skin: No rashes or lesions Physical Exam Vital Signs: Vital Signs: Last Vital Signs Temp 98.5 F 07/21/22 07:36 Pulse 91 07/21/22 07:36 Resp 20 07/21/22 07:36 BP 132/63 07/21/22 07:36 Pulse Ox 97 07/21/22 07:36 O2 Del Method 07/21/22 07:36 O2 Flow Rate 2 07/19/22 07:33 BMI result Body Mass Index 26.6 Constitutional - Awake and Alert, No apparent distress Eyes - PERRLA, EOMI Cardiovascular - S1S2, RRR, No edema Respiratory - Normal lung expansion, Normal respiratory effort, No respiratory distress, CTA bilaterally Gastrointestinal - NT / ND; +BS; No rebound or guarding Extremities - no calf tenderness bilaterally, no swelling Skin - Warm/Dry. Clean dressing in place over sacrum s/p debridement stage IV ulcer without purulent drainage, clean/dry Neurological - Alert & oriented x3 Psychological - Appropriate affect Objective Data Active Medications Acetaminophen (Acetaminophen 325 Mg Tablet) 650 mg PO Q6H PRN PRN Reason: Pain, Mild (Pain Scale 1-3) Last Admin: 07/20/22 08:32 Dose: 650 mg Documented By: DIPAK Apixaban (Apixaban 5 Mg Tablet) 5 mg PO BID [facility] Last Admin: 07/20/22 08:32 Dose: 5 mg Documented By: DIPAK Dextrose (Dextrose 50 % 25 Gm/50 Ml Syringe) 25 gm IVPUSH Q15M PRN; Protocol PRN Reason: per Hypoglycemia Standing Ord. Docusate Sodium (Docusate Sodium 100 Mg Capsule) 100 mg PO BID [facility] Last Admin: 07/21/22 08:05 Dose: 100 mg Documented By: DIPAK Ferrous Sulfate (Ferrous Sulfate 324 Mg Tablet.Dr) 324 mg PO BIDWM [facility] Last Admin: 07/21/22 08:05 Dose: 324 mg Documented By: DIPAK Finasteride (Finasteride 5 Mg Tablet) 5 mg PO DAILY [facility] Last Admin: 07/21/22 08:05 Dose: 5 mg Documented By: DIPAK Glucose (Glucose Gel 15 Gm Gel..Gram.) 15 gm PO Q15M PRN; Protocol PRN Reason: per Hypoglycemia Standing Ord. Insulin Glargine (Insulin Glargine,Hum.Rec.Anlog 100 Unit/Ml 10 Ml Vial) 20 unit SUBCUT DAILY@0730 [facility] Last Admin: 07/21/22 08:08 Dose: 20 unit Documented By: DIPAK Insulin Glargine (Insulin Glargine,Hum.Rec.Anlog 100 Unit/Ml 10 Ml Vial) 5 unit SUBCUT BEDTIME [facility] Last Admin: 07/20/22 21:57 Dose: 5 unit Documented By: PATRICE Insulin Human Lispro (Insulin Lispro 100 Unit/Ml 3 Ml Vial) 0 unit SUBCUT QIDACHS [facility]; Protocol Last Admin: 07/21/22 08:06 Dose: Not Given Documented By: DIPAK Non-Admin Reason: No Insulin Coverage Lidocaine (Lidocaine 4 % Patch Adh..Patch) 1 patch TRANSDERMA DAILY [facility]; Protocol Last Admin: 07/21/22 08:06 Dose: 1 patch Documented By: DIPAK Metoprolol Tartrate (Metoprolol Tartrate 50 Mg Tablet) 50 mg PO QID [facility]; Protocol Last Admin: 07/21/22 08:05 Dose: 50 mg Documented By: DIPAK Morphine Sulfate (Morphine Sulfate 2 Mg/Ml Cartridge) 2 mg IVPUSH Q4H PRN; Protocol PRN Reason: Pain, Severe (Pain Scale 7-10) Last Admin: 07/20/22 15:59 Dose: 2 mg Documented By: ARIA Ondansetron HCl (Ondansetron Hcl 4 Mg/2 Ml Vial) 4 mg IVPUSH Q8H PRN PRN Reason: Nausea and Vomiting Last Admin: 07/07/22 01:05 Dose: 4 mg Documented By: MARIANN Ondansetron HCl (Ondansetron Hcl 4 Mg/2 Ml Vial) 4 mg IVPUSH ONCE PRN PRN Reason: Nausea and Vomiting Oxycodone HCl (Oxycodone Hcl Immed Release 5 Mg Tablet) 5 mg PO TID [facility] Stop: 07/23/22 09:01 Last Admin: 07/21/22 08:05 Dose: 5 mg Documented By: DIPAK Pharmacy Consult (Consult Rx Perform Med Rec) 1 each MISCELLANE ONCE PRN PRN Reason: Consult order Polyethylene Glycol (Polyethylene Glycol 3350 17 Gm Powd.Pack) 17 gm PO DAILY PRN PRN Reason: constipation Last Admin: 06/28/22 22:01 Dose: 17 gm Documented By: ADRIANA Polyethylene Glycol (Polyethylene Glycol 3350 17 Gm Powd.Pack) 17 gm PO DAILY [facility] Last Admin: 07/21/22 08:05 Dose: 17 gm Documented By: DIPAK Sodium Chloride (0.9 % Sodium Chloride Flush 3 Ml Syringe) [facility] Last Admin: 07/21/22 08:06 Dose: 3 ml Documented By: DIPAK Tamsulosin HCl (Tamsulosin Hcl 0.4 Mg Capsule) 0.8 mg PO DAILY [facility] Last Admin: 07/21/22 08:05 Dose: 0.8 mg Documented By: DIPAK Urea (Urea 15 Gm Powder) 30 gm PO DAILY [facility] Last Admin: 07/21/22 08:05 Dose: 30 gm Documented By: DIPAK Vitamin D (Cholecalciferol (Vitamin D3) 25 Mcg Tablet) 50 mcg PO DAILY [facility] Last Admin: 07/21/22 08:05 Dose: 50 mcg Documented By: DIPAK Zinc Acetate/Diphenhydramine (Diphenhydramine Hcl 2 % Cream 28 Gm Tube) 1 appl TOPICAL TID PRN; Protocol PRN Reason: itching Labs CBC & Chem 7: 07/21/22 05:32 07/21/22 05:32 Labs: Laboratory Results - last 24 hr 07/20/22 07/20/22 07/20/22 11:13 15:32 20:21 MCV MCH MCHC RDW Plt Count MPV Absolute Nucleated RBC Nucleated RBC % (auto) Anion Gap Estim Creat Clear Calc Estimated GFR POC Glucose 223 H 226 H 148 H Random Glucose Calcium 07/21/22 07/21/22 07/21/22 05:32 05:32 07:23 MCV 86.6 MCH 28.6 MCHC 33.1 RDW 15.1 Plt Count 189 MPV 8.8 L Absolute Nucleated RBC 0.030 H Nucleated RBC % (auto) 0.6 H Anion Gap 12 Estim Creat Clear Calc 115.1 Estimated GFR > 60 POC Glucose 115 Random Glucose 93 Calcium 7.8 L Assessment and Plan (1) Traumatic subarachnoid hemorrhage: Status: Acute (2) Cerebral contusion: Status: Acute (3) Physical deconditioning: Status: Acute (4) Hyponatremia: Status: Acute Plan 74yo M with DM2, HTN, HLD, chronic venous stasis dermatitis presented with mechanical fall, admitted for hypoxia due to PNA # Atrial flutter/fib with RVR intermittently to 130s, now 91, hypotension resolved likely due to blood loss at site of decubitus ulcer with anemia and due to missing dosages of metoprolol due to low blood pressure in last 24 hours Treated with IV digoxin 0.5 mg x 1 treat patient with IV fluid normal saline , give midodrine 5 mg x 1 07/20 Continue metoprolol 50 mg q.6 hours, prior dosage metoprolol 150 b.i.d. follow clinical course closely , hold apixaban today, resume as appropriate following wound vac tomorrow # Sacral decubitus ulcer stage 4 - on 07/08 had debridement of sacral decubitus ulcer, including skin, dermis, subcutaneous tissue and muscle; operative findings of necrotic skin, subcutaneous tissue and muscle. Ulcer measured approximately 10 cm x 10 cm in diameter with a depth of 4 cm = stage 3; Underwent repeat debridement in OR 07/17 entire wound measured 14-8 cm with the depth of 3 cm dissection was continued down to viable tissue cont. IV morphine as needed for pain control, and schedule oxycodone 5 mg t.i.d. patient will need further debridement and wound VAC placement once patient is more stable - Wound vac placement tomorrow am per surgery, npo after midnight # acute blood loss anemia ,blood loss at site of decub ulcer patient received 2 unit of packed RBC hematocrit improved to 25, will place on ferrous sulfate b.i.d. -Wound vac tomorrow am per gen surgery, continue holding eliquis and resume post op # traumatic SAH - no headache, no dizziness # acute hypoxic respiratory failure due to PNA- finished 10d of ABX, oxygenation stable 94% on room air # urinary retention - failed voiding trial x2, Lemus re-placed 07/11; continue tamsulosin and finasteride added on 07/12 # mechanical fall - difficulty ambulating; awaiting SNF placement # generalized weakness - 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 but not clinically NPH per Neurology # acute/chronic hypoNa - resolved,on fluid restriction change fluid restriction to 1800 mL # new-onset AF/RVR - LVEF >70%, seen by Cardiology, continue metoprolol, hold apixaban due to significant anemia and blood loss at site of sacral decubitus ulcer # incidental 1.3cm pancreatic lesions, may reflect adjacent pancreatic cysts - outpt MRI/MRCP # DM2 - blood sugar in 200s, continue insulin glargine, SSI increased by 2 units # HTN- soft blood pressures losartan and hydralazine discontinued, continue metoprolol # HLD- statin # VTE ppx: SCDs, apixaban on hold In my clinical judgment, the patient requires continued inpatient hospitalization for the following reasons: anemia, hypotension, AFib with RVR, SNF placement and follow-up on stage IV decub ulcer. Time Spent With Patient Time: Total time managing care of this patient today 35 minutes. Quality Stroke Does the patient have a stroke diagnosis?: No VTE Prior VTE?: No VTE Risk Level:: Medical - moderate - high VTE Device Contraindication: Treatment Not Indicated VTE Drug Contraindication: N/A - Med Ordered
[2022-07-21] MEDS: Morphine Sulfate 2 MG/ML CARTRIDGE IVPUSH (10:42)
--- NOTE | 2022-07-21 11:22 | PM.PNGS ---
Subjective Subjective Date of Service: 07/23/22 Interval history: no new complaints no events reported Physical Exam Vital Signs: Vital Signs: Last Vital Signs Temp 98.5 F 07/21/22 07:36 Pulse 91 07/21/22 07:36 Resp 20 07/21/22 07:36 BP 132/63 07/21/22 07:36 Pulse Ox 97 07/21/22 07:36 O2 Del Method 07/21/22 07:36 O2 Flow Rate 2 07/19/22 07:33 BMI result Body Mass Index 26.6 Const: General: no acute distress Resp: Effort & Inspection: normal respiratory effort Cardio: Rhythm: regular rhythm Back/Spine/Pelvis: Other: large open sacral decub ulcer stage IV, with some nonviable coating of tissue Objective Data Active Medications Acetaminophen (Acetaminophen 325 Mg Tablet) 650 mg PO Q6H PRN PRN Reason: Pain, Mild (Pain Scale 1-3) Last Admin: 07/20/22 08:32 Dose: 650 mg Documented By: DIPAK Apixaban (Apixaban 5 Mg Tablet) 5 mg PO BID [facility] Last Admin: 07/20/22 08:32 Dose: 5 mg Documented By: DIPAK Dextrose (Dextrose 50 % 25 Gm/50 Ml Syringe) 25 gm IVPUSH Q15M PRN; Protocol PRN Reason: per Hypoglycemia Standing Ord. Docusate Sodium (Docusate Sodium 100 Mg Capsule) 100 mg PO BID [facility] Last Admin: 07/21/22 08:05 Dose: 100 mg Documented By: DIPAK Ferrous Sulfate (Ferrous Sulfate 324 Mg Tablet.Dr) 324 mg PO BIDWM [facility] Last Admin: 07/21/22 08:05 Dose: 324 mg Documented By: DIPAK Finasteride (Finasteride 5 Mg Tablet) 5 mg PO DAILY [facility] Last Admin: 07/21/22 08:05 Dose: 5 mg Documented By: DIPAK Glucose (Glucose Gel 15 Gm Gel..Gram.) 15 gm PO Q15M PRN; Protocol PRN Reason: per Hypoglycemia Standing Ord. Insulin Glargine (Insulin Glargine,Hum.Rec.Anlog 100 Unit/Ml 10 Ml Vial) 20 unit SUBCUT DAILY@0730 [facility] Last Admin: 07/21/22 08:08 Dose: 20 unit Documented By: DIPAK Insulin Glargine (Insulin Glargine,Hum.Rec.Anlog 100 Unit/Ml 10 Ml Vial) 5 unit SUBCUT BEDTIME [facility] Last Admin: 07/20/22 21:57 Dose: 5 unit Documented By: PATRICE Insulin Human Lispro (Insulin Lispro 100 Unit/Ml 3 Ml Vial) 0 unit SUBCUT QIDACHS [facility]; Protocol Last Admin: 07/21/22 08:06 Dose: Not Given Documented By: DIPAK Non-Admin Reason: No Insulin Coverage Lidocaine (Lidocaine 4 % Patch Adh..Patch) 1 patch TRANSDERMA DAILY [facility]; Protocol Last Admin: 07/21/22 08:06 Dose: 1 patch Documented By: DIPAK Metoprolol Tartrate (Metoprolol Tartrate 50 Mg Tablet) 50 mg PO QID [facility]; Protocol Last Admin: 07/21/22 08:05 Dose: 50 mg Documented By: DIPAK Morphine Sulfate (Morphine Sulfate 2 Mg/Ml Cartridge) 2 mg IVPUSH Q4H PRN; Protocol PRN Reason: Pain, Severe (Pain Scale 7-10) Last Admin: 07/21/22 10:42 Dose: 2 mg Documented By: DIPAK Ondansetron HCl (Ondansetron Hcl 4 Mg/2 Ml Vial) 4 mg IVPUSH Q8H PRN PRN Reason: Nausea and Vomiting Last Admin: 07/07/22 01:05 Dose: 4 mg Documented By: MARIANN Ondansetron HCl (Ondansetron Hcl 4 Mg/2 Ml Vial) 4 mg IVPUSH ONCE PRN PRN Reason: Nausea and Vomiting Oxycodone HCl (Oxycodone Hcl Immed Release 5 Mg Tablet) 5 mg PO TID [facility] Stop: 07/23/22 09:01 Last Admin: 07/21/22 08:05 Dose: 5 mg Documented By: DIPAK Pharmacy Consult (Consult Rx Perform Med Rec) 1 each MISCELLANE ONCE PRN PRN Reason: Consult order Polyethylene Glycol (Polyethylene Glycol 3350 17 Gm Powd.Pack) 17 gm PO DAILY PRN PRN Reason: constipation Last Admin: 06/28/22 22:01 Dose: 17 gm Documented By: ADRIANA Polyethylene Glycol (Polyethylene Glycol 3350 17 Gm Powd.Pack) 17 gm PO DAILY [facility] Last Admin: 07/21/22 08:05 Dose: 17 gm Documented By: DIPAK Sodium Chloride (0.9 % Sodium Chloride Flush 3 Ml Syringe) 3 ml IVFLUSH QSHIFT [facility] Last Admin: 07/21/22 08:06 Dose: 3 ml Documented By: DIPAK Tamsulosin HCl (Tamsulosin Hcl 0.4 Mg Capsule) 0.8 mg PO DAILY [facility] Last Admin: 07/21/22 08:05 Dose: 0.8 mg Documented By: DIPAK Urea (Urea 15 Gm Powder) 30 gm PO DAILY [facility] Last Admin: 07/21/22 08:05 Dose: 30 gm Documented By: DIPAK Vitamin D (Cholecalciferol (Vitamin D3) 25 Mcg Tablet) 50 mcg PO DAILY [facility] Last Admin: 07/21/22 08:05 Dose: 50 mcg Documented By: DIPAK Zinc Acetate/Diphenhydramine (Diphenhydramine Hcl 2 % Cream 28 Gm Tube) 1 appl TOPICAL TID PRN; Protocol PRN Reason: itching Labs CBC & Chem 7: 07/21/22 05:32 07/21/22 05:32 Labs: Laboratory Results - last 24 hr 07/20/22 07/20/22 07/21/22 15:32 20:21 05:32 MCV 86.6 MCH 28.6 MCHC 33.1 RDW 15.1 Plt Count 189 MPV 8.8 L Absolute Nucleated RBC 0.030 H Nucleated RBC % (auto) 0.6 H Anion Gap Estim Creat Clear Calc Estimated GFR POC Glucose 226 H 148 H Random Glucose Calcium 07/21/22 07/21/22 05:32 07:23 MCV MCH MCHC RDW Plt Count MPV Absolute Nucleated RBC Nucleated RBC % (auto) Anion Gap 12 Estim Creat Clear Calc 115.1 Estimated GFR > 60 POC Glucose 115 Random Glucose 93 Calcium 7.8 L Procedures Date of Service Date of Service: 07/21/22 Progress Note: A&P Assessment and plan (1) Stage 4 decubitus ulcer: Status: Acute Assessment and Plan: I changed his dressings - wet to dry applied plan to do dressing changein OR nathan, do debridement and apply woundvac explained this plan to patient he states he understands risks, benefits and alternatives Time Spent With Patient Time: Total time managing care of this patient today ____ minutes. Quality Stroke Does the patient have a stroke diagnosis?: No VTE Prior VTE?: No VTE Risk Level:: Medical - moderate - high VTE Device Contraindication: Treatment Not Indicated VTE Drug Contraindication: N/A - Med Ordered
[2022-07-21 11:53] LABS: Glucose, Whole Blood 140 mg/dL (60-115)
[2022-07-21 14:14] VITALS: BP 124/77; PULSE 88; RESP 18; O2SAT 96
[2022-07-21 16:00] VITALS: BP 134/66; PULSE 86; RESP 19; TEMP 37.1; O2SAT 94
[2022-07-21 16:29] LABS: Glucose, Whole Blood 143 mg/dL (60-115)
[2022-07-21 19:48] VITALS: BP 128/60; PULSE 87; RESP 18; TEMP 37.1; O2SAT 95
[2022-07-21 19:51] LABS: Glucose, Whole Blood 173 mg/dL (60-115)
[2022-07-21] MEDS: Insulin Glargine,Hum.rec.anlog 100 UNIT/ML 10 ML VIAL SUBCUT (20:27)
[2022-07-21] MEDS: Insulin Lispro 100 UNIT/ML 3 ML VIAL SUBCUT (20:27)
[2022-07-22] VITALS (9 sets, daily range): BP systolic 107–135; BP diastolic 53–60; PULSE 83–98; RESP 14–18; TEMP 36.6–37.3; O2SAT 92–96
[2022-07-22 06:50] LABS: Glucose, Whole Blood 131 mg/dL (60-115)
--- NOTE | 2022-07-22 08:32 | W.PM.OPN ---
Operative Note Operative Note Date of Service: 07/22/22 Narrative: Preop diagnosis: sacral decub ulcer, stage IV Postop diagnosis: same Procedure: sahrp excisional debridement, sacral decub ulcer, application of wound vac Surgeon: Quang Early MD First Asst: JOSE GUADALUPE Whitfield The patient is a 81M with a large Stage IV sacral decub ulcer. He understood the technique of the planned procedure as well as the risk, benefits and alternatives. He was brought to the OR and placed in left lateral decub position under general anesthesia via LMA. The sacral area was prepped and draped. A surgical timeout was done. The patient was on schedule antibiotics. The ulcer was 12.5 x 8 cm, and extended through the subcutaneous fat to the bone. There was some nonviable coating of tissue and clots overlying a lot of the ulcer. I proceeded to do excisional debridement using curved Newberry scissors to remove nonviable tissue. I had to cauterize oozing areas. I did copious irrigation. Once hemostasis was confirmed, we aplied the foam dressings then created the seal for the Wound Vac. There was note of good seal once the wound vac was turned on. The procedure was then completed. The patient tolerated the procedure well. There were no immediate complications. Estimated blood loss was about 20 cc. He was extubated without difficulty and transferred to the OR with stable VS.
[2022-07-22 10:01] LABS: Glucose, Whole Blood 147 mg/dL (60-115)
--- NOTE | 2022-07-22 10:08 | MHC.CM.PN ---
PT NOT YET MEDICALLY CLEARED, NOW WITH WOUND VAC DCP REMAINS SNF PLACEMENT REFERRALS ARE OUT AND UPDATED
--- NOTE | 2022-07-22 10:49 | HO.PM.IMPN ---
Subjective Subjective Date of Service: 07/22/22 Review of Systems Follow up Afib, Resp failure, decub ulcer Physical Exam Vital Signs: Vital Signs: Last Vital Signs Temp 99.1 F 07/22/22 09:45 Pulse 91 07/22/22 09:45 Resp 16 07/22/22 09:45 BP 124/59 L 07/22/22 09:45 Pulse Ox 95 07/22/22 09:45 O2 Del Method 07/22/22 09:45 O2 Flow Rate 2 07/19/22 07:33 BMI result Body Mass Index 26.6 Appearing in no acute distress lung sounds are clear to auscultation heart regular rate rhythm, clear S1, S2 positive bowel sounds, abdomen is soft, nontender neuro patient is alert x3, no focal deficits Wound VAC in place to sacrum Objective Data Active Medications Acetaminophen (Acetaminophen 325 Mg Tablet) 650 mg PO Q6H PRN PRN Reason: Pain, Mild (Pain Scale 1-3) Last Admin: 07/20/22 08:32 Dose: 650 mg Documented By: DIPAK Dextrose (Dextrose 50 % 25 Gm/50 Ml Syringe) 25 gm IVPUSH Q15M PRN; Protocol PRN Reason: per Hypoglycemia Standing Ord. Docusate Sodium (Docusate Sodium 100 Mg Capsule) 100 mg PO BID [facility] Last Admin: 07/21/22 20:26 Dose: 100 mg Documented By: ADRIANA Fentanyl (Fentanyl Citrate/Pf 100 Mcg/2 Ml Vial) 25 mcg IVPUSH Q5M PRN; Protocol PRN Reason: Pain, Moderate (Pain Scale 4-6 Ferrous Sulfate (Ferrous Sulfate 324 Mg Tablet.) 324 mg PO BIDWM [facility] Last Admin: 07/21/22 17:16 Dose: 324 mg Documented By: MAR Finasteride (Finasteride 5 Mg Tablet) 5 mg PO DAILY [facility] Last Admin: 07/21/22 08:05 Dose: 5 mg Documented By: DIPAK Glucose (Glucose Gel 15 Gm Gel..Gram.) 15 gm PO Q15M PRN; Protocol PRN Reason: per Hypoglycemia Standing Ord. Insulin Glargine (Insulin Glargine,Hum.Rec.Anlog 100 Unit/Ml 10 Ml Vial) 20 unit SUBCUT DAILY@0730 [facility] Last Admin: 07/22/22 08:00 Dose: Not Given Documented By: HO.MATTHEP Non-Admin Reason: NPO Insulin Glargine (Insulin Glargine,Hum.Rec.Anlog 100 Unit/Ml 10 Ml Vial) 5 unit SUBCUT BEDTIME [facility] Last Admin: 07/21/22 20:27 Dose: 5 unit Documented By: ADRIANA Insulin Human Lispro (Insulin Lispro 100 Unit/Ml 3 Ml Vial) 0 unit SUBCUT QIDACHS [facility]; Protocol Last Admin: 07/22/22 07:54 Dose: Not Given Documented By: NARCISO Non-Admin Reason: No Insulin Coverage Lidocaine (Lidocaine 4 % Patch Adh..Patch) 1 patch TRANSDERMA DAILY [facility]; Protocol Last Admin: 07/21/22 08:06 Dose: 1 patch Documented By: DIPAK Metoprolol Tartrate (Metoprolol Tartrate 50 Mg Tablet) 50 mg PO QID [facility]; Protocol Last Admin: 07/21/22 20:26 Dose: 50 mg Documented By: ADRIANA Morphine Sulfate (Morphine Sulfate 2 Mg/Ml Cartridge) 2 mg IVPUSH Q4H PRN; Protocol PRN Reason: Pain, Severe (Pain Scale 7-10) Last Admin: 07/21/22 10:42 Dose: 2 mg Documented By: DIPAK Ondansetron HCl (Ondansetron Hcl 4 Mg/2 Ml Vial) 4 mg IVPUSH Q8H PRN PRN Reason: Nausea and Vomiting Last Admin: 07/07/22 01:05 Dose: 4 mg Documented By: MARIANN Ondansetron HCl (Ondansetron Hcl 4 Mg/2 Ml Vial) 4 mg IVPUSH ONCE PRN PRN Reason: Nausea and Vomiting Ondansetron HCl (Ondansetron Hcl 4 Mg/2 Ml Vial) 4 mg IVPUSH ONCE PRN PRN Reason: Nausea and Vomiting Oxycodone HCl (Oxycodone Hcl Immed Release 5 Mg Tablet) 5 mg PO TID [facility] Stop: 07/23/22 09:01 Last Admin: 07/21/22 20:26 Dose: 5 mg Documented By: ADRIANA Pharmacy Consult (Consult Rx Perform Med Rec) 1 each MISCELLANE ONCE PRN PRN Reason: Consult order Polyethylene Glycol (Polyethylene Glycol 3350 17 Gm Powd.Pack) 17 gm PO DAILY PRN PRN Reason: constipation Last Admin: 06/28/22 22:01 Dose: 17 gm Documented By: ADRIANA Polyethylene Glycol (Polyethylene Glycol 3350 17 Gm Powd.Pack) 17 gm PO DAILY [facility] Last Admin: 07/21/22 08:05 Dose: 17 gm Documented By: DIPAK Sodium Chloride (0.9 % Sodium Chloride Flush 3 Ml Syringe) 3 ml IVFLUSH QSHIFT [facility] Last Admin: 07/21/22 20:27 Dose: 3 ml Documented By: ADRIANA Tamsulosin HCl (Tamsulosin Hcl 0.4 Mg Capsule) 0.8 mg PO DAILY [facility] Last Admin: 07/21/22 08:05 Dose: 0.8 mg Documented By: DIPAK Urea (Urea 15 Gm Powder) 30 gm PO DAILY [facility] Last Admin: 07/21/22 08:05 Dose: 30 gm Documented By: DIPAK Vitamin D (Cholecalciferol (Vitamin D3) 25 Mcg Tablet) 50 mcg PO DAILY [facility] Last Admin: 07/21/22 08:05 Dose: 50 mcg Documented By: DIPAK Zinc Acetate/Diphenhydramine (Diphenhydramine Hcl 2 % Cream 28 Gm Tube) 1 appl TOPICAL TID PRN; Protocol PRN Reason: itching Labs CBC & Chem 7: 07/21/22 05:32 07/21/22 05:32 Labs: Laboratory Results - last 24 hr 07/21/22 07/21/22 07/21/22 11:48 16:24 19:46 POC Glucose 140 H 143 H 173 H Blood Type Antibody Screen 07/22/22 07/22/22 07/22/22 06:46 06:59 09:57 POC Glucose 131 H 147 H Blood Type A Positive Antibody Screen NEGATIVE Assessment and Plan (1) Traumatic subarachnoid hemorrhage: Status: Acute (2) Cerebral contusion: Status: Acute (3) Physical deconditioning: Status: Acute (4) Hyponatremia: Status: Acute Plan 74yo M with DM2, HTN, HLD, chronic venous stasis dermatitis presented with mechanical fall, admitted for hypoxia due to PNA Atrial flutter/fib with RVR intermittently likely due to blood loss at site of decubitus ulcer Continue metoprolol 50 mg q.6 hours, prior dosage metoprolol 150 b.i.d. follow clinical course closely. hold apixaban today, resume as appropriate following wound vac placement Sacral decubitus ulcer stage 4 s/p 07/08,07/17 debridement of sacral decubitus ulcer, including skin, dermis, subcutaneous tissue and muscle; operative findings of necrotic skin, subcutaneous tissue and muscle. Ulcer measured approximately 10 cm x 10 cm in diameter with a depth of 4 cm = stage 3; s/p wound vac placement pain management Acute blood loss anemia blood loss at site of decub ulcer patient received 2 unit of packed RBC hematocrit improved to 25, will place on ferrous sulfate b.i.d. status post wound VAC placement Traumatic SAH no headache, no dizziness No other complications Acute hypoxic respiratory failure due to PNA finished 10d of ABX Urinary retention failed voiding trial x2 continue tamsulosin and finasteride St cath as needed mechanical fall difficulty ambulating; awaiting SNF placement generalized weakness 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 but not clinically NPH per Neurology acute/chronic hypoNa resolved,on fluid restriction change fluid restriction to 1800 mL new-onset AF/RVR LVEF >70%, seen by Cardiology continue metoprolol hold apixaban due to significant anemia and blood loss at site of sacral decubitus ulcer incidental 1.3cm pancreatic lesions may reflect adjacent pancreatic cysts outpt MRI/MRCP DM2 continue insulin glargine, SSI HTN soft blood pressures losartan and hydralazine discontinued continue metoprolol HLD statin VTE ppx: SCDs, apixaban on hold attending Dr. Contreras Full code In my clinical judgment, the patient requires continued inpatient hospitalization for the following reasons: anemia, hypotension, AFib with RVR, SNF placement and follow-up on stage IV decub ulcer. Time Spent With Patient Time: Total time managing care of this patient today ____ minutes. Quality Stroke Does the patient have a stroke diagnosis?: No VTE Prior VTE?: No VTE Risk Level:: Medical - moderate - high VTE Device Contraindication: Treatment Not Indicated VTE Drug Contraindication: N/A - Med Ordered
[2022-07-22] MEDS: Finasteride 5 MG TABLET PO (10:57)
[2022-07-22] MEDS: Metoprolol Tartrate 50 MG TABLET PO ×4 (10:58→21:36)
[2022-07-22] MEDS: Docusate Sodium 100 MG CAPSULE PO ×2 (10:58→21:35)
[2022-07-22] MEDS: oxyCODONE HCl Immed Release 5 MG TABLET PO ×3 (10:58→21:35)
[2022-07-22] MEDS: Lidocaine 4 % Patch ADH..PATCH 1 PATCH TRANSDERMA (10:58)
[2022-07-22] MEDS: Ferrous Sulfate 324 MG TABLET.DR PO ×2 (10:59→17:23)
[2022-07-22] MEDS: Cholecalciferol (Vitamin D3) 25 MCG TABLET 50 MCG PO (10:59)
[2022-07-22] MEDS: 0.9 % Sodium Chloride Flush 3 ML SYRINGE IVFLUSH ×3 (10:59→23:56)
[2022-07-22] MEDS: polyethylene glycoL 3350 17 GM POWD.PACK PO (10:59)
[2022-07-22] MEDS: Tamsulosin HCL 0.4 MG CAPSULE 0.8 MG PO (11:00)
[2022-07-22] MEDS: Urea 15 GM POWDER 30 GM PO (11:00)
[2022-07-22 11:23] LABS: Glucose, Whole Blood 146 mg/dL (60-115)
[2022-07-22] MEDS: Morphine Sulfate 2 MG/ML CARTRIDGE IVPUSH ×2 (12:43→17:28)
--- NOTE | 2022-07-22 14:20 | MHC.CLN ---
F/U DIET= DIABETIC 1800 KCALS. ENSURE BID TO PROMOTE WOUND HEALING. PROVIDES ADDITIONAL 700 KCALS, 40 G PROTEIN. UNSTAGEABLE WOUND TO COCCYX, DEBRIDED AND WOUND VAC IN PLACE. WAS NPO FOR PROCEDURE THIS MORNING. FOLLOW FOR INTAKE AND WOUND.
[2022-07-22 16:00] LABS: Glucose, Whole Blood 247 mg/dL (60-115)
[2022-07-22] MEDS: Insulin Lispro 100 UNIT/ML 3 ML VIAL SUBCUT ×2 (17:23→21:36)
[2022-07-22] MEDS: Acetaminophen 325 MG TABLET 650 MG PO (17:29)
[2022-07-22 19:52] LABS: Glucose, Whole Blood 249 mg/dL (60-115)
[2022-07-22] MEDS: Insulin Glargine,Hum.rec.anlog 100 UNIT/ML 10 ML VIAL SUBCUT (21:36)
--- NOTE | 2022-07-23 | ECG_ITS ---
Test Reason : arrythmia Blood Pressure : / mmHG Vent. Rate : 089 BPM Atrial Rate : 000 BPM P-R Int : 000 ms QRS Dur : 114 ms QT Int : 388 ms P-R-T Axes : 000 -62 035 degrees QTc Int : 472 ms Accelerated Junctional rhythm Right bundle branch block Left anterior fascicular block Possible Lateral infarct (cited on or before 17-JUL-2022) ST & T wave abnormality, consider anterior ischemia Abnormal ECG When compared with ECG of 20-JUL-2022 09:52, Accelerated junctional rhythm present Serial changes of evolving Lateral infarct Present Referred By: Dalia Lay Electronically Signed By:Huber Valdivia
[2022-07-23 04:02] VITALS: BP 120/54; PULSE 88; RESP 17; TEMP 37.2; O2SAT 95
[2022-07-23 07:41] LABS: Glucose, Whole Blood 214 mg/dL (60-115)
[2022-07-23 07:45] VITALS: O2SAT 97
[2022-07-23] MEDS: polyethylene glycoL 3350 17 GM POWD.PACK PO (09:10)
[2022-07-23] MEDS: Docusate Sodium 100 MG CAPSULE PO ×2 (09:11→20:12)
[2022-07-23] MEDS: Tamsulosin HCL 0.4 MG CAPSULE 0.8 MG PO (09:11)
[2022-07-23] MEDS: Ferrous Sulfate 324 MG TABLET.DR PO ×2 (09:11→16:35)
[2022-07-23] MEDS: Finasteride 5 MG TABLET PO (09:11)
[2022-07-23] MEDS: Metoprolol Tartrate 50 MG TABLET PO ×4 (09:11→20:12)
[2022-07-23] MEDS: Cholecalciferol (Vitamin D3) 25 MCG TABLET 50 MCG PO (09:11)
[2022-07-23] MEDS: Lidocaine 4 % Patch ADH..PATCH 1 PATCH TRANSDERMA (09:12)
[2022-07-23] MEDS: Insulin Lispro 100 UNIT/ML 3 ML VIAL SUBCUT ×4 (09:12→20:32)
[2022-07-23] MEDS: 0.9 % Sodium Chloride Flush 3 ML SYRINGE IVFLUSH ×3 (09:12→20:28)
[2022-07-23] MEDS: oxyCODONE HCl Immed Release 5 MG TABLET PO (09:12)
[2022-07-23] MEDS: Insulin Glargine,Hum.rec.anlog 100 UNIT/ML 10 ML VIAL 20 UNIT SUBCUT (09:12)
[2022-07-23] MEDS: Urea 15 GM POWDER 30 GM PO (09:19)
--- NOTE | 2022-07-23 09:24 | PM.PNGS ---
Subjective Subjective Date of Service: 07/23/22 <Nancy Newberry PA-C - Last Filed: 07/23/22 10:36> 07/23/22 <Quang Early MD - Last Filed: 07/23/22 13:02> Interval history: He is terrible . Having a lot of pain at wound vac/ulcer site. <Nancy Newberry PA-C - Last Filed: 07/23/22 10:36> Physical Exam Vital Signs: Vital Signs: Last Vital Signs Temp 98.9 F 07/23/22 04:02 Pulse 88 07/23/22 04:02 Resp 17 07/23/22 04:02 BP 120/54 L 07/23/22 04:02 Pulse Ox 97 07/23/22 07:45 O2 Del Method 07/23/22 07:45 O2 Flow Rate 2 07/19/22 07:33 BMI result Body Mass Index 26.6 <Nancy Newberry PA-C - Last Filed: 07/23/22 10:36> Const: General: comfortable, no acute distress and alert <Nancy Newberry PA-C - Last Filed: 07/23/22 10:36> Resp: Effort & Inspection: normal respiratory effort <Nancy Newberry PA-C - Last Filed: 07/23/22 10:36> Back/Spine/Pelvis: Other: sacral ulcer with wound vac in place, good seal <Nancy Newberry PA-C - Last Filed: 07/23/22 10:36> Skin: Other: no rash <Nancy Newberry PA-C - Last Filed: 07/23/22 10:36> Extrem: General: No no pedal edema <Nancy Newberry PA-C - Last Filed: 07/23/22 10:36> Objective Data Active Medications Acetaminophen (Acetaminophen 325 Mg Tablet) 650 mg PO Q6H PRN PRN Reason: Pain, Mild (Pain Scale 1-3) Last Admin: 07/22/22 17:29 Dose: 650 mg Documented By: NARCISO Dextrose (Dextrose 50 % 25 Gm/50 Ml Syringe) 25 gm IVPUSH Q15M PRN; Protocol PRN Reason: per Hypoglycemia Standing Ord. Docusate Sodium (Docusate Sodium 100 Mg Capsule) 100 mg PO BID [facility] Last Admin: 07/23/22 09:11 Dose: 100 mg Documented By: JANINE Fentanyl (Fentanyl Citrate/Pf 100 Mcg/2 Ml Vial) 25 mcg IVPUSH Q5M PRN; Protocol PRN Reason: Pain, Moderate (Pain Scale 4-6 Ferrous Sulfate (Ferrous Sulfate 324 Mg Tablet.Dr) 324 mg PO BIDWM [facility] Last Admin: 07/23/22 09:11 Dose: 324 mg Documented By: JANINE Finasteride (Finasteride 5 Mg Tablet) 5 mg PO DAILY [facility] Last Admin: 07/23/22 09:11 Dose: 5 mg Documented By: JANINE Glucose (Glucose Gel 15 Gm Gel..Gram.) 15 gm PO Q15M PRN; Protocol PRN Reason: per Hypoglycemia Standing Ord. Insulin Glargine (Insulin Glargine,Hum.Rec.Anlog 100 Unit/Ml 10 Ml Vial) 20 unit SUBCUT DAILY@0730 [facility] Last Admin: 07/23/22 09:12 Dose: 20 unit Documented By: JANINE Insulin Glargine (Insulin Glargine,Hum.Rec.Anlog 100 Unit/Ml 10 Ml Vial) 5 unit SUBCUT BEDTIME [facility] Last Admin: 07/22/22 21:36 Dose: 5 unit Documented By: ADRIANA Insulin Human Lispro (Insulin Lispro 100 Unit/Ml 3 Ml Vial) 0 unit SUBCUT QIDACHS [facility]; Protocol Last Admin: 07/23/22 09:12 Dose: 6 unit Documented By: JANINE Lidocaine (Lidocaine 4 % Patch Adh..Patch) 1 patch TRANSDERMA DAILY [facility]; Protocol Last Admin: 07/23/22 09:12 Dose: 1 patch Documented By: JANINE Metoprolol Tartrate (Metoprolol Tartrate 50 Mg Tablet) 50 mg PO QID [facility]; Protocol Last Admin: 07/23/22 09:11 Dose: 50 mg Documented By: JANINE Morphine Sulfate (Morphine Sulfate 2 Mg/Ml Cartridge) 2 mg IVPUSH Q4H PRN; Protocol PRN Reason: Pain, Severe (Pain Scale 7-10) Last Admin: 07/22/22 17:28 Dose: 2 mg Documented By: NARCISO Ondansetron HCl (Ondansetron Hcl 4 Mg/2 Ml Vial) 4 mg IVPUSH Q8H PRN PRN Reason: Nausea and Vomiting Last Admin: 07/07/22 01:05 Dose: 4 mg Documented By: MARIANN Ondansetron HCl (Ondansetron Hcl 4 Mg/2 Ml Vial) 4 mg IVPUSH ONCE PRN PRN Reason: Nausea and Vomiting Ondansetron HCl (Ondansetron Hcl 4 Mg/2 Ml Vial) 4 mg IVPUSH ONCE PRN PRN Reason: Nausea and Vomiting Pharmacy Consult (Consult Rx Perform Med Rec) 1 each MISCELLANE ONCE PRN PRN Reason: Consult order Polyethylene Glycol (Polyethylene Glycol 3350 17 Gm Powd.Pack) 17 gm PO DAILY PRN PRN Reason: constipation Last Admin: 06/28/22 22:01 Dose: 17 gm Documented By: ADRIANA Polyethylene Glycol (Polyethylene Glycol 3350 17 Gm Powd.Pack) 17 gm PO DAILY [facility] Last Admin: 07/23/22 09:10 Dose: 17 gm Documented By: JANINE Sodium Chloride (0.9 % Sodium Chloride Flush 3 Ml Syringe) 3 ml IVFLUSH QSHIFT [facility] Last Admin: 07/23/22 09:12 Dose: 3 ml Documented By: JANINE Tamsulosin HCl (Tamsulosin Hcl 0.4 Mg Capsule) 0.8 mg PO DAILY [facility] Last Admin: 07/23/22 09:11 Dose: 0.8 mg Documented By: JANINE Urea (Urea 15 Gm Powder) 30 gm PO DAILY [facility] Last Admin: 07/23/22 09:19 Dose: 30 gm Documented By: JANINE Vitamin D (Cholecalciferol (Vitamin D3) 25 Mcg Tablet) 50 mcg PO DAILY [facility] Last Admin: 07/23/22 09:11 Dose: 50 mcg Documented By: JANINE Zinc Acetate/Diphenhydramine (Diphenhydramine Hcl 2 % Cream 28 Gm Tube) 1 appl TOPICAL TID PRN; Protocol PRN Reason: itching <Nancy Newberry PA-C - Last Filed: 07/23/22 10:36> Labs CBC & Chem 7: : 07/21/22 05:32 07/21/22 05:32 <Nancy Newberry PA-C - Last Filed: 07/23/22 10:36> Labs: Laboratory Results - last 24 hr 07/22/22 07/22/22 07/22/22 09:57 11:02 15:44 POC Glucose 147 H 146 H 247 H 07/22/22 07/23/22 19:37 07:27 POC Glucose 249 H 214 H <Nancy Newberry PA-C - Last Filed: 07/23/22 10:36> Procedures Date of Service Date of Service: 07/23/22 <Nancy Newberry PA-C - Last Filed: 07/23/22 10:36> Progress Note: A&P Assessment and plan (1) Stage 4 decubitus ulcer: Status: Acute <Nancy Newberry PA-C - Last Filed: 07/23/22 10:36> (2) Status post excisional debridement: Status: Acute <Nancy Newberry PA-C - Last Filed: 07/23/22 10:36> Assessment and Plan: looks comfortable wound vac maintaining seal change positions side to side seen and examined independently - agree w/ JOSE GUADALUPE Newberry <Quang Early MD - Last Filed: 07/23/22 13:02> (3) Encounter for management of wound VAC: Status: Acute <Nancy Newberry PA-C - Last Filed: 07/23/22 10:36> Assessment and Plan: 81 year old male admitted for hypoxia and respiratory failure following a fall found to have a sacral decubitus ulcer requiring multiple debridements. Ulcer debrided again yesterday in OR with wound vac placement. Currently has good seal. Continue wound vac and supportive care of frequent repositioning, air loss bed, nutritional support. Plan for wound vac change Friday in OR with possible debridement. <KWAME Meza Last Filed: 07/23/22 10:36> Time Spent With Patient Time: Total time managing care of this patient today ____ minutes. <Nancy Newberry PA-C - Last Filed: 07/23/22 10:36> Quality Stroke Does the patient have a stroke diagnosis?: No <Nancy Newberry PA-C - Last Filed: 07/23/22 10:36> VTE Prior VTE?: No <Nancy Newberry PA-C - Last Filed: 07/23/22 10:36> VTE Risk Level:: Medical - moderate - high <Nancy Newberry PA-C - Last Filed: 07/23/22 10:36> VTE Device Contraindication: Treatment Not Indicated <Nancy Newberry PA-C - Last Filed: 07/23/22 10:36> VTE Drug Contraindication: N/A - Med Ordered <Nancy Newberry PA-C - Last Filed: 07/23/22 10:36>
--- NOTE | 2022-07-23 10:10 | HO.PM.IMPN ---
Subjective Subjective Date of Service: 07/23/22 Review of Systems Follow up Afib, Resp failure, decub ulcer Physical Exam Vital Signs: Vital Signs: Last Vital Signs Temp 98.9 F 07/23/22 04:02 Pulse 88 07/23/22 04:02 Resp 17 07/23/22 04:02 BP 120/54 L 07/23/22 04:02 Pulse Ox 97 07/23/22 07:45 O2 Del Method 07/23/22 07:45 O2 Flow Rate 2 07/19/22 07:33 BMI result Body Mass Index 26.6 Appearing in no acute distress lung sounds are clear to auscultation heart regular rate rhythm, clear S1, S2 positive bowel sounds, abdomen is soft, nontender neuro patient is alert x3, no focal deficits Lemus cath Objective Data Active Medications Acetaminophen (Acetaminophen 325 Mg Tablet) 650 mg PO Q6H PRN PRN Reason: Pain, Mild (Pain Scale 1-3) Last Admin: 07/22/22 17:29 Dose: 650 mg Documented By: NARCISO Dextrose (Dextrose 50 % 25 Gm/50 Ml Syringe) 25 gm IVPUSH Q15M PRN; Protocol PRN Reason: per Hypoglycemia Standing Ord. Docusate Sodium (Docusate Sodium 100 Mg Capsule) 100 mg PO BID [facility] Last Admin: 07/23/22 09:11 Dose: 100 mg Documented By: JANINE Fentanyl (Fentanyl Citrate/Pf 100 Mcg/2 Ml Vial) 25 mcg IVPUSH Q5M PRN; Protocol PRN Reason: Pain, Moderate (Pain Scale 4-6 Ferrous Sulfate (Ferrous Sulfate 324 Mg Tablet.) 324 mg PO BIDWM [facility] Last Admin: 07/23/22 09:11 Dose: 324 mg Documented By: JANINE Finasteride (Finasteride 5 Mg Tablet) 5 mg PO DAILY [facility] Last Admin: 07/23/22 09:11 Dose: 5 mg Documented By: JANINE Glucose (Glucose Gel 15 Gm Gel..Gram.) 15 gm PO Q15M PRN; Protocol PRN Reason: per Hypoglycemia Standing Ord. Insulin Glargine (Insulin Glargine,Hum.Rec.Anlog 100 Unit/Ml 10 Ml Vial) 20 unit SUBCUT DAILY@0730 [facility] Last Admin: 07/23/22 09:12 Dose: 20 unit Documented By: JANINE Insulin Glargine (Insulin Glargine,Hum.Rec.Anlog 100 Unit/Ml 10 Ml Vial) 5 unit SUBCUT BEDTIME [facility] Last Admin: 07/22/22 21:36 Dose: 5 unit Documented By: ADRIANA Insulin Human Lispro (Insulin Lispro 100 Unit/Ml 3 Ml Vial) 0 unit SUBCUT QIDACHS [facility]; Protocol Last Admin: 07/23/22 09:12 Dose: 6 unit Documented By: JANINE Lidocaine (Lidocaine 4 % Patch Adh..Patch) 1 patch TRANSDERMA DAILY [facility]; Protocol Last Admin: 07/23/22 09:12 Dose: 1 patch Documented By: JANINE Metoprolol Tartrate (Metoprolol Tartrate 50 Mg Tablet) 50 mg PO QID [facility]; Protocol Last Admin: 07/23/22 09:11 Dose: 50 mg Documented By: JANINE Morphine Sulfate (Morphine Sulfate 2 Mg/Ml Cartridge) 2 mg IVPUSH Q4H PRN; Protocol PRN Reason: Pain, Severe (Pain Scale 7-10) Last Admin: 07/22/22 17:28 Dose: 2 mg Documented By: NARCISO Ondansetron HCl (Ondansetron Hcl 4 Mg/2 Ml Vial) 4 mg IVPUSH Q8H PRN PRN Reason: Nausea and Vomiting Last Admin: 07/07/22 01:05 Dose: 4 mg Documented By: MARIANN Ondansetron HCl (Ondansetron Hcl 4 Mg/2 Ml Vial) 4 mg IVPUSH ONCE PRN PRN Reason: Nausea and Vomiting Ondansetron HCl (Ondansetron Hcl 4 Mg/2 Ml Vial) 4 mg IVPUSH ONCE PRN PRN Reason: Nausea and Vomiting Pharmacy Consult (Consult Rx Perform Med Rec) 1 each MISCELLANE ONCE PRN PRN Reason: Consult order Polyethylene Glycol (Polyethylene Glycol 3350 17 Gm Powd.Pack) 17 gm PO DAILY PRN PRN Reason: constipation Last Admin: 06/28/22 22:01 Dose: 17 gm Documented By: ADRIANA Polyethylene Glycol (Polyethylene Glycol 3350 17 Gm Powd.Pack) 17 gm PO DAILY [facility] Last Admin: 07/23/22 09:10 Dose: 17 gm Documented By: JANINE Sodium Chloride (0.9 % Sodium Chloride Flush 3 Ml Syringe) 3 ml IVFLUSH QSHIFT [facility] Last Admin: 07/23/22 09:12 Dose: 3 ml Documented By: JANINE Tamsulosin HCl (Tamsulosin Hcl 0.4 Mg Capsule) 0.8 mg PO DAILY [facility] Last Admin: 07/23/22 09:11 Dose: 0.8 mg Documented By: JANINE Urea (Urea 15 Gm Powder) 30 gm PO DAILY [facility] Last Admin: 07/23/22 09:19 Dose: 30 gm Documented By: JANINE Vitamin D (Cholecalciferol (Vitamin D3) 25 Mcg Tablet) 50 mcg PO DAILY [facility] Last Admin: 07/23/22 09:11 Dose: 50 mcg Documented By: JANINE Zinc Acetate/Diphenhydramine (Diphenhydramine Hcl 2 % Cream 28 Gm Tube) 1 appl TOPICAL TID PRN; Protocol PRN Reason: itching Labs CBC & Chem 7: 07/21/22 05:32 07/21/22 05:32 Labs: Laboratory Results - last 24 hr 07/22/22 07/22/22 07/22/22 11:02 15:44 19:37 POC Glucose 146 H 247 H 249 H 07/23/22 07:27 POC Glucose 214 H Assessment and Plan (1) Traumatic subarachnoid hemorrhage: Status: Acute (2) Cerebral contusion: Status: Acute (3) Physical deconditioning: Status: Acute (4) Hyponatremia: Status: Acute Plan 74yo M with DM2, HTN, HLD, chronic venous stasis dermatitis presented with mechanical fall, admitted for hypoxia due to PNA Atrial flutter/fib with RVR intermittently likely due to blood loss at site of decubitus ulcer Continue metoprolol 50 mg q.6 hours, prior dosage metoprolol 150 b.i.d. follow clinical course closely. hold apixaban today, resume as appropriate following wound vac placement Sacral decubitus ulcer stage 4 s/p 07/08,07/17 debridement of sacral decubitus ulcer, including skin, dermis, subcutaneous tissue and muscle; operative findings of necrotic skin, subcutaneous tissue and muscle. Ulcer measured approximately 10 cm x 10 cm in diameter with a depth of 4 cm = stage 3; s/p wound vac placement 07/22/22 pain management Acute blood loss anemia blood loss at site of decub ulcer patient received 2 unit of packed RBC hematocrit improved to 25, continue ferrous sulfate b.i.d. status post wound VAC placement Traumatic SAH no headache, no dizziness No other complications Acute hypoxic respiratory failure due to PNA finished 10d of ABX Urinary retention failed voiding trial x2, will attempt today again continue tamsulosin and finasteride St cath as needed, blader scan Qshift Mechanical fall difficulty ambulating; awaiting SNF placement generalized weakness 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 but not clinically NPH per Neurology acute/chronic hypoNa resolved,on fluid restriction change fluid restriction to 1800 mL New-onset AF/RVR LVEF >70%, seen by Cardiology continue metoprolol hold apixaban due to significant anemia and blood loss at site of sacral decubitus ulcer incidental 1.3cm pancreatic lesions may reflect adjacent pancreatic cysts outpt MRI/MRCP DM2 continue insulin glargine, SSI HTN soft blood pressures losartan and hydralazine discontinued continue metoprolol HLD statin VTE ppx: SCDs, apixaban on hold attending Dr. Contreras Full code Disposition. Discharge to group home facility when medically clear In my clinical judgment, the patient requires continued inpatient hospitalization for the following reasons: anemia, hypotension, AFib with RVR, SNF placement and follow-up on stage IV decub ulcer. Time Spent With Patient Time: Total time managing care of this patient today ____ minutes. Quality Stroke Does the patient have a stroke diagnosis?: No VTE Prior VTE?: No VTE Risk Level:: Medical - moderate - high VTE Device Contraindication: Treatment Not Indicated VTE Drug Contraindication: N/A - Med Ordered
[2022-07-23 11:14] LABS: Glucose, Whole Blood 272 mg/dL (60-115)
[2022-07-23 11:30] VITALS: BP 124/55; PULSE 88; RESP 16; O2SAT 97
[2022-07-23 14:00] VITALS: BP 125/57; PULSE 88; RESP 18; TEMP 37.7; O2SAT 94
--- NOTE | 2022-07-23 15:12 | HO.POSTANES ---
Post Anesthesia Evaluation Post Anesthesia Evaluation Vital Signs: Vital Signs Temp Pulse Resp BP Pulse Ox O2 Del Method 07/23/22 11:30 88 16 124/55 L 97 Room Air 07/23/22 07:45 97 Room Air 07/23/22 04:02 98.9 F 88 17 120/54 L 95 Room Air Anesthesia: General Mental Status: Awake Pain Control: Satisfactory (alot of pain at wound site) Nausea/Vomiting: None Hydration: Adequate Anesthesia-Related Issues: No Anes. Related Issues
[2022-07-23 15:54] LABS: Glucose, Whole Blood 200 mg/dL (60-115)
[2022-07-23 16:37] VITALS: BP 128/58; PULSE 89; RESP 16; O2SAT 97
[2022-07-23 19:55] VITALS: BP 133/74; PULSE 86; RESP 20; TEMP 36.8; O2SAT 96
[2022-07-23] MEDS: Morphine Sulfate 2 MG/ML CARTRIDGE IVPUSH (20:19)
[2022-07-23 20:23] LABS: Glucose, Whole Blood 215 mg/dL (60-115)
[2022-07-23] MEDS: Insulin Glargine,Hum.rec.anlog 100 UNIT/ML 10 ML VIAL SUBCUT (20:26)
[2022-07-24] MEDS: Morphine Sulfate 2 MG/ML CARTRIDGE IVPUSH (00:28)
[2022-07-24] MEDS: oxyCODONE HCl Immed Release 5 MG TABLET PO ×3 (03:27→18:00)
[2022-07-24 03:38] VITALS: BP 115/58; PULSE 89; RESP 18; TEMP 36.9; O2SAT 97
[2022-07-24 07:22] VITALS: BP 134/60; PULSE 89; RESP 18; TEMP 37.1; O2SAT 94
[2022-07-24 07:35] LABS: Glucose, Whole Blood 175 mg/dL (60-115)
--- NOTE | 2022-07-24 08:04 | P.PNIM_ITS ---
Subjective Subjective Date of Service: 07/24/22 Review of Systems Follow up Afib, Resp failure, decub ulcer Physical Exam Vital Signs: Vital Signs: Last Vital Signs Temp 98.8 F 07/24/22 07:22 Pulse 89 07/24/22 07:22 Resp 18 07/24/22 07:22 BP 134/60 07/24/22 07:22 Pulse Ox 94 07/24/22 07:22 O2 Del Method 07/24/22 07:22 O2 Flow Rate 2 07/19/22 07:33 BMI result Body Mass Index 26.6 Appearing in no acute distress lung sounds are clear to auscultation heart regular rate rhythm, clear S1, S2 positive bowel sounds, abdomen is soft, nontender neuro patient is alert x3, no focal deficits Wound VAC to sacral area Objective Data Active Medications Acetaminophen (Acetaminophen 325 Mg Tablet) 650 mg PO Q6H PRN PRN Reason: Pain, Mild (Pain Scale 1-3) Last Admin: 07/22/22 17:29 Dose: 650 mg Documented By: NARCISO Dextrose (Dextrose 50 % 25 Gm/50 Ml Syringe) 25 gm IVPUSH Q15M PRN; Protocol PRN Reason: per Hypoglycemia Standing Ord. Docusate Sodium (Docusate Sodium 100 Mg Capsule) 100 mg PO BID [facility] Last Admin: 07/23/22 20:12 Dose: 100 mg Documented By: MORRINL Fentanyl (Fentanyl Citrate/Pf 100 Mcg/2 Ml Vial) 25 mcg IVPUSH Q5M PRN; Protocol PRN Reason: Pain, Moderate (Pain Scale 4-6 Ferrous Sulfate (Ferrous Sulfate 324 Mg Tablet.) 324 mg PO BIDWM [facility] Last Admin: 07/23/22 16:35 Dose: 324 mg Documented By: JANINE Finasteride (Finasteride 5 Mg Tablet) 5 mg PO DAILY [facility] Last Admin: 07/23/22 09:11 Dose: 5 mg Documented By: JANINE Glucose (Glucose Gel 15 Gm Gel..Gram.) 15 gm PO Q15M PRN; Protocol PRN Reason: per Hypoglycemia Standing Ord. Insulin Glargine (Insulin Glargine,Hum.Rec.Anlog 100 Unit/Ml 10 Ml Vial) 20 uni t SUBCUT DAILY@0730 [facility] Last Admin: 07/23/22 09:12 Dose: 20 unit Documented By: JANINE Insulin Glargine (Insulin Glargine,Hum.Rec.Anlog 100 Unit/Ml 10 Ml Vial) 5 unit SUBCUT BEDTIME [facility] Last Admin: 07/23/22 20:26 Dose: 5 unit Documented By: PATRICE Insulin Human Lispro (Insulin Lispro 100 Unit/Ml 3 Ml Vial) 0 unit SUBCUT QIDACHS [facility]; Protocol Last Admin: 07/23/22 20:32 Dose: 6 unit Documented By: PATRICE Lidocaine (Lidocaine 4 % Patch Adh..Patch) 1 patch TRANSDERMA DAILY [facility]; Protocol Last Admin: 07/23/22 09:12 Dose: 1 patch Documented By: JANINE Metoprolol Tartrate (Metoprolol Tartrate 50 Mg Tablet) 50 mg PO QID [facility]; Protocol Last Admin: 07/23/22 20:12 Dose: 50 mg Documented By: PATRICE Morphine Sulfate (Morphine Sulfate 2 Mg/Ml Cartridge) 2 mg IVPUSH Q4H PRN; Protocol PRN Reason: Pain, Severe (Pain Scale 7-10) Last Admin: 07/24/22 00:28 Dose: 2 mg Documented By: PATRICE Ondansetron HCl (Ondansetron Hcl 4 Mg/2 Ml Vial) 4 mg IVPUSH Q8H PRN PRN Reason: Nausea and Vomiting Last Admin: 07/07/22 01:05 Dose: 4 mg Documented By: MARIANN Ondansetron HCl (Ondansetron Hcl 4 Mg/2 Ml Vial) 4 mg IVPUSH ONCE PRN PRN Reason: Nausea and Vomiting Ondansetron HCl (Ondansetron Hcl 4 Mg/2 Ml Vial) 4 mg IVPUSH ONCE PRN PRN Reason: Nausea and Vomiting Oxycodone HCl (Oxycodone Hcl Immed Release 5 Mg Tablet) 5 mg PO Q4H PRN PRN Reason: Pain, Mild (Pain Scale 1-3) Last Admin: 07/24/22 03:27 Dose: 5 mg Documented By: BRENDA Pharmacy Consult (Consult Rx Perform Med Rec) 1 each MISCELLANE ONCE PRN PRN Reason: Consult order Polyethylene Glycol (Polyethylene Glycol 3350 17 Gm Powd.Pack) 17 gm PO DAILY PRN PRN Reason: constipation Last Admin: 06/28/22 22:01 Dose: 17 gm Documented By: ADRIANA Polyethylene Glycol (Polyethylene Glycol 3350 17 Gm Powd.Pack) 17 gm PO DAILY [facility] Last Admin: 07/23/22 09:10 Dose: 17 gm Documented By: JANINE Sodium Chloride (0.9 % Sodium Chloride Flush 3 Ml Syringe) 3 ml IVFLUSH QSHIFT [facility] Last Admin: 07/23/22 20:28 Dose: 3 ml Documented By: MORRINL Tamsulosin HCl (Tamsulosin Hcl 0.4 Mg Capsule) 0.8 mg PO DAILY [facility] Last Admin: 07/23/22 09:11 Dose: 0.8 mg Documented By: JANINE Urea (Urea 15 Gm Powder) 30 gm PO DAILY [facility] Last Admin: 07/23/22 09:19 Dose: 30 gm Documented By: JANINE Vitamin D (Cholecalciferol (Vitamin D3) 25 Mcg Tablet) 50 mcg PO DAILY [facility] Last Admin: 07/23/22 09:11 Dose: 50 mcg Documented By: JANINE Zinc Acetate/Diphenhydramine (Diphenhydramine Hcl 2 % Cream 28 Gm Tube) 1 appl TOPICAL TID PRN; Protocol PRN Reason: itching Labs CBC & Chem 7: 07/21/22 05:32 07/21/22 05:32 Labs: Laboratory Results - last 24 hr 07/23/22 07/23/22 07/23/22 10:58 15:16 19:59 POC Glucose 272 H 200 H 215 H 07/24/22 07:24 POC Glucose 175 H Assessment and Plan (1) Traumatic subarachnoid hemorrhage: Status: Acute (2) Cerebral contusion: Status: Acute (3) Physical deconditioning: Status: Acute (4) Hyponatremia: Status: Acute Plan 74yo M with DM2, HTN, HLD, chronic venous stasis dermatitis presented with mechanical fall, admitted for hypoxia due to PNA Atrial flutter/fib with RVR intermittently likely due to blood loss at site of decubitus ulcer Continue metoprolol 50 mg q.6 hours, prior dosage metoprolol 150 b.i.d. follow clinical course closely. hold apixaban today, resume as appropriate following wound vac placement Sacral decubitus ulcer stage 4 s/p 07/08,07/17 debridement of sacral decubitus ulcer, including skin, dermis, subcutaneous tissue and muscle; operative findings of necrotic skin, subcutaneous tissue and muscle. Ulcer measured approximately 10 cm x 10 cm in diameter with a depth of 4 cm = stage 3; s/p wound vac placement 07/22/22 pain management Acute blood loss anemia blood loss at site of decub ulcer patient received 2 unit of packed RBC hematocrit improved to 25, continue ferrous sulfate b.i.d. status post wound VAC placement Traumatic SAH no headache, no dizziness No other complications Acute hypoxic respiratory failure due to PNA finished 10d of ABX Urinary retention failed voiding trial x2, will attempt today again continue tamsulosin and finasteride St cath as needed, blader scan Qshift Mechanical fall difficulty ambulating; awaiting SNF placement generalized weakness 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 but not clinically NPH per Neurology acute/chronic hypoNa resolved,on fluid restriction change fluid restriction to 1800 mL New-onset AF/RVR LVEF >70%, seen by Cardiology continue metoprolol hold apixaban due to significant anemia and blood loss at site of sacral decubitus ulcer incidental 1.3cm pancreatic lesions may reflect adjacent pancreatic cysts outpt MRI/MRCP DM2 continue insulin glargine, SSI HTN soft blood pressures losartan and hydralazine discontinued continue metoprolol HLD statin VTE ppx: SCDs, apixaban on hold attending Dr. Contreras Full code Disposition. Discharge to long term facility when medically clear In my clinical judgment, the patient requires continued inpatient hospitalization for the following reasons: anemia, hypotension, AFib with RVR, SNF placement and follow-up on stage IV decub ulcer. Time Spent With Patient Time: Total time managing care of this patient today ____ minutes. Quality Stroke Does the patient have a stroke diagnosis?: No VTE Prior VTE?: No VTE Risk Level:: Medical - moderate - high VTE Device Contraindication: Treatment Not Indicated VTE Drug Contraindication: N/A - Med Ordered
[2022-07-24] MEDS: Urea 15 GM POWDER 30 GM PO (08:13)
[2022-07-24] MEDS: Insulin Lispro 100 UNIT/ML 3 ML VIAL SUBCUT ×4 (08:13→20:21)
[2022-07-24] MEDS: Insulin Glargine,Hum.rec.anlog 100 UNIT/ML 10 ML VIAL 20 UNIT SUBCUT (08:13)
[2022-07-24] MEDS: polyethylene glycoL 3350 17 GM POWD.PACK PO (08:13)
[2022-07-24] MEDS: Cholecalciferol (Vitamin D3) 25 MCG TABLET 50 MCG PO (08:13)
[2022-07-24] MEDS: 0.9 % Sodium Chloride Flush 3 ML SYRINGE IVFLUSH ×3 (08:14→20:22)
[2022-07-24] MEDS: Finasteride 5 MG TABLET PO (08:14)
[2022-07-24] MEDS: Metoprolol Tartrate 50 MG TABLET PO ×4 (08:14→20:21)
[2022-07-24] MEDS: Ferrous Sulfate 324 MG TABLET.DR PO ×2 (08:14→17:29)
[2022-07-24] MEDS: Docusate Sodium 100 MG CAPSULE PO ×2 (08:14→20:21)
[2022-07-24] MEDS: Lidocaine 4 % Patch ADH..PATCH 1 PATCH TRANSDERMA (08:14)
[2022-07-24] MEDS: Tamsulosin HCL 0.4 MG CAPSULE 0.8 MG PO (08:14)
[2022-07-24 09:32] LABS: Hematocrit 27.1 % (42.0-52.0); Hemoglobin 8.6 g/dl (14.0-18.0); Mean Corpuscular HGB Conc 31.7 g/dl (31.0-36.0); Mean Corpuscular Hemoglobin 27.9 pg (27.0-33.0); Platelet Count 230 X10*3/uL (160-400); Red Blood Count 3.08 X10*6/uL (4.60-5.80); Red Cell Distribution Width 15.9 % (11.0-16.0); White Blood Count 6.8 X10*3/uL (4.8-10.8)
--- NOTE | 2022-07-24 10:53 | MHC.CLN ---
F/U PT WITH INCREASED NUTRITION RISK R/T STAGE 4 PRESSURE INJURY WOUND VAC IN PLACE PO INTAKE VARIABLE DIET RX: 1800DM-RECOMMEND INCREASING KCALS TO 2200DM TO PROMOTE WOUND HEALING PT RECEIVING ENSURE BID TO PROVIDE 700KCALS, 40G PROTEIN WITH 100% ACCEPTANCE MONITOR PO INTAKE CLOSELY WILL CHANGE DIET TO 2200DM
--- NOTE | 2022-07-24 11:15 | PM.PNGS ---
Subjective Subjective Date of Service: 07/24/22 <Nancy Whitfield PA-C - Last Filed: 07/24/22 11:17> 07/25/22 <Quang Ealry MD - Last Filed: 07/25/22 12:24> Interval history: Continues to c/o pain. <Nancy Whitfield PA-C - Last Filed: 07/24/22 11:17> Physical Exam Vital Signs: Vital Signs: Last Vital Signs Temp 98.8 F 07/24/22 07:22 Pulse 89 07/24/22 07:22 Resp 18 07/24/22 07:22 BP 134/60 07/24/22 07:22 Pulse Ox 94 07/24/22 07:22 O2 Del Method 07/24/22 07:22 O2 Flow Rate 2 07/19/22 07:33 BMI result Body Mass Index 26.6 <Nancy Whitfield PA-C - Last Filed: 07/24/22 11:17> Const: General: no acute distress <Nancy Whitfield PA-C - Last Filed: 07/24/22 11:17> Back/Spine/Pelvis: Other: wound vac remains intact with good seal to sacral ulcer <Nancy Whitfield PA-C - Last Filed: 07/24/22 11:17> Objective Data Active Medications Acetaminophen (Acetaminophen 325 Mg Tablet) 650 mg PO Q6H PRN PRN Reason: Pain, Mild (Pain Scale 1-3) Last Admin: 07/22/22 17:29 Dose: 650 mg Documented By: NARCISO Dextrose (Dextrose 50 % 25 Gm/50 Ml Syringe) 25 gm IVPUSH Q15M PRN; Protocol PRN Reason: per Hypoglycemia Standing Ord. Docusate Sodium (Docusate Sodium 100 Mg Capsule) 100 mg PO BID [facility] Last Admin: 07/24/22 08:14 Dose: 100 mg Documented By: JANINE Fentanyl (Fentanyl Citrate/Pf 100 Mcg/2 Ml Vial) 25 mcg IVPUSH Q5M PRN; Protocol PRN Reason: Pain, Moderate (Pain Scale 4-6 Ferrous Sulfate (Ferrous Sulfate 324 Mg Tablet.Dr) 324 mg PO BIDWM [facility] [place] Last Admin: 07/24/22 08:14 Dose: 324 mg Documented By: JANINE Finasteride (Finasteride 5 Mg Tablet) 5 mg PO DAILY [facility] [place] Last Admin: 07/24/22 08:14 Dose: 5 mg Documented By: JANINE Glucose (Glucose Gel 15 Gm Gel..Gram.) 15 gm PO Q15M PRN; Protocol PRN Reason: per Hypoglycemia Standing Ord. Insulin Glargine (Insulin Glargine,Hum.Rec.Anlog 100 Unit/Ml 10 Ml Vial) 20 unit SUBCUT DAILY@0730 [facility] [place] Last Admin: 07/24/22 08:13 Dose: 20 unit Documented By: JANINE Insulin Glargine (Insulin Glargine,Hum.Rec.Anlog 100 Unit/Ml 10 Ml Vial) 5 unit SUBCUT BEDTIME [facility] [place] Last Admin: 07/23/22 20:26 Dose: 5 unit Documented By: PATRICE Insulin Human Lispro (Insulin Lispro 100 Unit/Ml 3 Ml Vial) 0 unit SUBCUT QIDACHS [facility] [place]; Protocol Last Admin: 07/24/22 08:13 Dose: 4 unit Documented By: JANINE Lidocaine (Lidocaine 4 % Patch Adh..Patch) 1 patch TRANSDERMA DAILY [facility] [place]; Protocol Last Admin: 07/24/22 08:14 Dose: 1 patch Documented By: JANINE Metoprolol Tartrate (Metoprolol Tartrate 50 Mg Tablet) 50 mg PO QID [facility] [place]; Protocol Last Admin: 07/24/22 08:14 Dose: 50 mg Documented By: JANINE Morphine Sulfate (Morphine Sulfate 2 Mg/Ml Cartridge) 2 mg IVPUSH Q4H PRN; Protocol PRN Reason: Pain, Severe (Pain Scale 7-10) Last Admin: 07/24/22 00:28 Dose: 2 mg Documented By: PATRICE Ondansetron HCl (Ondansetron Hcl 4 Mg/2 Ml Vial) 4 mg IVPUSH Q8H PRN PRN Reason: Nausea and Vomiting Last Admin: 07/07/22 01:05 Dose: 4 mg Documented By: MARIANN Ondansetron HCl (Ondansetron Hcl 4 Mg/2 Ml Vial) 4 mg IVPUSH ONCE PRN PRN Reason: Nausea and Vomiting Ondansetron HCl (Ondansetron Hcl 4 Mg/2 Ml Vial) 4 mg IVPUSH ONCE PRN PRN Reason: Nausea and Vomiting Oxycodone HCl (Oxycodone Hcl Immed Release 5 Mg Tablet) 5 mg PO Q4H PRN PRN Reason: Pain, Mild (Pain Scale 1-3) Last Admin: 07/24/22 03:27 Dose: 5 mg Documented By: BRENDA Pharmacy Consult (Consult Rx Perform Med Rec) 1 each MISCELLANE ONCE PRN PRN Reason: Consult order Polyethylene Glycol (Polyethylene Glycol 3350 17 Gm Powd.Pack) 17 gm PO DAILY PRN PRN Reason: constipation Last Admin: 06/28/22 22:01 Dose: 17 gm Documented By: ADRIANA Polyethylene Glycol (Polyethylene Glycol 3350 17 Gm Powd.Pack) 17 gm PO DAILY [facility] Last Admin: 07/24/22 08:13 Dose: 17 gm Documented By: JANINE Sodium Chloride (0.9 % Sodium Chloride Flush 3 Ml Syringe) [facility] Admin: 07/24/22 08:14 Dose: 3 ml Documented By: JANINE Tamsulosin HCl (Tamsulosin Hcl 0.4 Mg Capsule) 0.8 mg PO DAILY [facility] [place] Last Admin: 07/24/22 08:14 Dose: 0.8 mg Documented By: JANINE Urea (Urea 15 Gm Powder) 30 gm PO DAILY [facility] [place] Last Admin: 07/24/22 08:13 Dose: 30 gm Documented By: JANINE Vitamin D (Cholecalciferol (Vitamin D3) 25 Mcg Tablet) 50 mcg PO DAILY [facility] [place] Last Admin: 07/24/22 08:13 Dose: 50 mcg Documented By: JANINE Zinc Acetate/Diphenhydramine (Diphenhydramine Hcl 2 % Cream 28 Gm Tube) 1 appl TOPICAL TID PRN; Protocol PRN Reason: itching <Nancy Whitfield PA-C - Last Filed: 07/24/22 11:17> Labs CBC & Chem 7: : 07/24/22 09:09 07/21/22 05:32 <Nancy Whitfield PA-C - Last Filed: 07/24/22 11:17> Labs: Laboratory Results - last 24 hr 07/23/22 07/23/22 07/24/22 15:16 19:59 07:24 MCV MCH MCHC RDW Plt Count MPV Absolute Nucleated RBC Nucleated RBC % (auto) POC Glucose 200 H 215 H 175 H 07/24/22 09:09 MCV 88.0 MCH 27.9 MCHC 31.7 RDW 15.9 Plt Count 230 MPV 9.0 L Absolute Nucleated RBC 0.000 Nucleated RBC % (auto) 0.0 POC Glucose <Nancy Whitfield PA-C - Last Filed: 07/24/22 11:17> Procedures Date of Service Date of Service: 07/24/22 <Nancy Whitfield PA-C - Last Filed: 07/24/22 11:17> Progress Note: A&P Assessment and plan (1) Encounter for management of wound VAC: Status: Acute <Nancy Whitfield PA-C - Last Filed: 07/24/22 11:17> Assessment and Plan: Wound VAC seal appears to be holding No new events reported Plan to change the wound VAC this Friday in the operating room under anesthesia Seen and examined independently <Quang Early MD - Last Filed: 07/25/22 12:24> (2) Stage 4 decubitus ulcer: Status: Acute <Nancy Whitfield PA-C - Last Filed: 07/24/22 11:17> Assessment and Plan: 81 year old male admitted for hypoxia and respiratory failure following a fall found to have a sacral decubitus ulcer requiring multiple debridements. Wound vac placed 07/22/22. Continues with good seal. Continue wound vac and supportive care of frequent repositioning, air loss bed, nutritional support. Plan for wound vac change Friday in OR with possible debridement. <Nancy Whitfield PA-C - Last Filed: 07/24/22 11:17> Time Spent With Patient Time: Total time managing care of this patient today ____ minutes. <Nancy Whitfield PA-C - Last Filed: 07/24/22 11:17> Quality Stroke Does the patient have a stroke diagnosis?: No <Nancy Whitfield PA-C - Last Filed: 07/24/22 11:17> VTE Prior VTE?: No <Nancy Whitfield PA-C - Last Filed: 07/24/22 11:17> VTE Risk Level:: Medical - moderate - high <Nancy Whitfield PA-C - Last Filed: 07/24/22 11:17> VTE Device Contraindication: Treatment Not Indicated <Nancy Whitfield PA-C - Last Filed: 07/24/22 11:17> VTE Drug Contraindication: N/A - Med Ordered <Nancy Whitfield PA-C - Last Filed: 07/24/22 11:17>
[2022-07-24 11:29] LABS: Glucose, Whole Blood 270 mg/dL (60-115)
[2022-07-24 11:51] VITALS: BP 125/60; PULSE 81; RESP 14; O2SAT 98
--- NOTE | 2022-07-24 14:22 | PM.UROCN ---
History of Present Illness Consult details Consult date: 07/24/22 Reason for consult: other (Urinary retention; failed 2 voiding trials) Narrative: Karthikeyan is a 81-year-old male patient who is being seen today for Urology consult inpatient for urinary retention. Patient initially presented to the ER on 06/15 after a fall. Patient states he had fallen twice in two days prior to admission to the hospital. Patient states his last fall was as he was walking out of the [facility] while using his walker. He states there after he started to not feel well and promted him to come to the ER. Currently the patient is being consulted by Urology for failed voiding trial x2. In discussion with nursing it appears patient had been in urinary retention with approximately 380 mL in his bladder which prompted roberts catheter to be placed. Per nursing patient has had multiple voiding trials and has failed. Patient had also been intermittently straight cath. However patient is still unable to void. Roberts placed by nursing earlier this morning. Urine appears yellow and clear. In discussion with the patient today at bedside patient denies previous issues with his urination. However, patient is vague when assessing and discussing past medical history in addition to plan of care. Patient is on Flomax and finasteride, will continue. Discussed outpatient follow-up after patient is discharged from the hospital. Discussed following up with Urology outpatient for in office voiding trial and retention work up. Review of Systems Constitutional: Constitutional: Reports as per HPI Eyes: Eyes: Reports no additional eye complaints ENT: Reports system reviewed and no additional complaints, except as documented Cardiovascular: Cardiovascular: Reports as per HPI Respiratory: Respiratory: Reports no additional respiratory complaints Gastrointestinal: Gastrointestinal: Reports no additional gastrointestinal complaints Genitourinary: Genitourinary: Reports as per HPI Musculoskeletal: Comments: Recent fall Integumentary/Breasts: Comments: patient with wound vac to sacrum. Status post 07/08 and 07/17 debridement of sacral decubitus ulcer, including skin, dermis, subcutaneous tissue and muscle. Status post wound VAC placement 07/22 Psychiatric: Psychiatric: Reports no additional psychiatric complaints [facility] Past Medical History Medical History (Updated 07/24/22 @ 20:48 by WENDIE Elaine) CAD (coronary artery disease) Diabetes mellitus with coincident hypertension Hyperlipidemia Hypertension Incomplete bladder emptying Functional capacity: uses cane/walker Family History Family History Mother Stroke Cancer Father No problems noted. Surgical History Surgical History H/O heart surgery Status post debridement Social History Social History Household Members: None Housing: House Do you presently have visiting nurse or other home services: No Alcohol intake: never Patient Tobacco Use Status: Former Tobacco user Tobacco use type: Cigarette Smoked in Last 30 Days: No e-Cigarette/Vaping Use: Never Used Second Hand Smoke Exposure: No Use of substances other than those prescribed or required for medical reasons: No Currently Displaying Signs/Symptoms of Drug Intoxication Withdrawal: No Have you been hit, kicked, punched, or otherwise hurt by someone within the past year? If so, by whom?: No Do you feel safe in your current relationship?: No Current Relationship Is there a partner from a previous relationship who is making you feel unsafe now?: No Are you made to feel afraid or neglected: No Are you DNR?: No Advance Directives: No Advance Directives Information Provided: No Advance Directives on File: No Do you have thoughts of harming others: None Do you have a plan to hurt others: No Plan Recently lost weight without trying: No How much weight loss: Not applicable Eating poorly because of decreased appetite: No Nutrition screen score: 0 Poor oral hygiene: Yes (multiple missing teeth, dentures) service: No Current occupational status: retired Cognitive needs: Yes (walker) Hearing needs: No Vision needs: Yes (glasses) Meds Allergies Allergy/AdvReac Type Severity Reaction Status Date / Time Lfkqbka-CPZ-BzA Reductase Allergy Mild Burning Verified 07/24/22 20:42 Inhibitor sensation [Dqhrzdb-Svx-Awf Reductase Inhibitor] Active Medications: Current Medications Acetaminophen (Acetaminophen 325 Mg Tablet) 650 mg PO Q6H PRN PRN Reason: Pain, Mild (Pain Scale 1-3) Last Admin: 07/22/22 17:29 Dose: 650 mg Dextrose (Dextrose 50 % 25 Gm/50 Ml Syringe) 25 gm IVPUSH Q15M PRN; Protocol PRN Reason: per Hypoglycemia Standing Ord. Docusate Sodium (Docusate Sodium 100 Mg Capsule) 100 mg PO BID NICOLE Last Admin: 07/24/22 08:14 Dose: 100 mg Fentanyl (Fentanyl Citrate/Pf 100 Mcg/2 Ml Vial) 25 mcg IVPUSH Q5M PRN; Protocol PRN Reason: Pain, Moderate (Pain Scale 4-6 Ferrous Sulfate (Ferrous Sulfate 324 Mg Tablet.Dr) 324 mg PO BIDWM [facility] Last Admin: 07/24/22 08:14 Dose: 324 mg Finasteride (Finasteride 5 Mg Tablet) 5 mg PO DAILY [facility] Last Admin: 07/24/22 08:14 Dose: 5 mg Glucose (Glucose Gel 15 Gm Gel..Gram.) 15 gm PO Q15M PRN; Protocol PRN Reason: per Hypoglycemia Standing Ord. Insulin Glargine (Insulin Glargine,Hum.Rec.Anlog 100 Unit/Ml 10 Ml Vial) 20 unit SUBCUT DAILY@0730 [facility] Last Admin: 07/24/22 08:13 Dose: 20 unit Insulin Glargine (Insulin Glargine,Hum.Rec.Anlog 100 Unit/Ml 10 Ml Vial) 5 unit SUBCUT BEDTIME [facility] Last Admin: 07/23/22 20:26 Dose: 5 unit Insulin Human Lispro (Insulin Lispro 100 Unit/Ml 3 Ml Vial) 0 unit SUBCUT QIDACHS [facility]; Protocol Last Admin: 07/24/22 11:55 Dose: 8 unit Lidocaine (Lidocaine 4 % Patch Adh..Patch) 1 patch TRANSDERMA DAILY [facility]; Protocol Last Admin: 07/24/22 08:14 Dose: 1 patch Metoprolol Tartrate (Metoprolol Tartrate 50 Mg Tablet) 50 mg PO QID [facility]; Protocol Last Admin: 07/24/22 12:02 Dose: 50 mg Morphine Sulfate (Morphine Sulfate 2 Mg/Ml Cartridge) 2 mg IVPUSH Q4H PRN; Protocol PRN Reason: Pain, Severe (Pain Scale 7-10) Last Admin: 07/24/22 00:28 Dose: 2 mg Ondansetron HCl (Ondansetron Hcl 4 Mg/2 Ml Vial) 4 mg IVPUSH Q8H PRN PRN Reason: Nausea and Vomiting Last Admin: 07/07/22 01:05 Dose: 4 mg Ondansetron HCl (Ondansetron Hcl 4 Mg/2 Ml Vial) 4 mg IVPUSH ONCE PRN PRN Reason: Nausea and Vomiting Ondansetron HCl (Ondansetron Hcl 4 Mg/2 Ml Vial) 4 mg IVPUSH ONCE PRN PRN Reason: Nausea and Vomiting Oxycodone HCl (Oxycodone Hcl Immed Release 5 Mg Tablet) 5 mg PO Q4H PRN PRN Reason: Pain, Mild (Pain Scale 1-3) Last Admin: 07/24/22 11:55 Dose: 5 mg Pharmacy Consult (Consult Rx Perform Med Rec) 1 each MISCELLANE ONCE PRN PRN Reason: Consult order Polyethylene Glycol (Polyethylene Glycol 3350 17 Gm Powd.Pack) 17 gm PO DAILY PRN PRN Reason: constipation Last Admin: 06/28/22 22:01 Dose: 17 gm Polyethylene Glycol (Polyethylene Glycol 3350 17 Gm Powd.Pack) 17 gm PO DAILY [facility] Last Admin: 07/24/22 08:13 Dose: 17 gm Sodium Chloride (0.9 % Sodium Chloride Flush 3 Ml Syringe) 3 ml IVFLUSH QSHIFT [facility] Last Admin: 07/24/22 11:55 Dose: 3 ml Tamsulosin HCl (Tamsulosin Hcl 0.4 Mg Capsule) 0.8 mg PO DAILY [facility] Last Admin: 07/24/22 08:14 Dose: 0.8 mg Urea (Urea 15 Gm Powder) 30 gm PO DAILY [facility] Last Admin: 07/24/22 08:13 Dose: 30 gm Vitamin D (Cholecalciferol (Vitamin D3) 25 Mcg Tablet) 50 mcg PO DAILY [facility] Last Admin: 07/24/22 08:13 Dose: 50 mcg Zinc Acetate/Diphenhydramine (Diphenhydramine Hcl 2 % Cream 28 Gm Tube) 1 appl TOPICAL TID PRN; Protocol PRN Reason: itching Home Medications Medication Instructions Recorded Confirmed Last Taken Type insulin human U-100 NPH-regulr 40 unit subcut DAILY@1300 06/14/22 06/14/22 Unknown History 70-30 mix 100 unit/mL subcutaneous susp insulin human U-100 NPH-regulr 60 unit subcut DAILY 06/14/22 06/14/22 Unknown History 70-30 mix 100 unit/mL subcutaneous susp Physical Exam Vital Signs: Vital Signs: Last Vital Signs Temp 98.8 F 07/24/22 07:22 Pulse 81 07/24/22 11:51 Resp 14 07/24/22 11:51 BP 125/60 07/24/22 11:51 Pulse Ox 98 07/24/22 11:51 O2 Del Method 07/24/22 11:51 O2 Flow Rate 2 07/19/22 07:33 BMI result Body Mass Index 26.6 Const: General: cooperative, comfortable, no acute distress, well developed, alert, awake and other (vague ) Orientation/consciousness: patient oriented x3 Limitations: ambulation with walker HEENT: Head: Yes normal to inspection, Yes normocephalic and Yes atraumatic Eyes: General: appearance normal, both eyes and all related structures Neck: Neck: Yes normal visual inspection and Yes trachea midline Chest: Chest palpation & inspection: normal inspection of the chest Cardio: Jugular venous distension: no JVD GI: Inspection: Yes normal to inspection : General: Yes no CVA tenderness Back/Spine/Pelvis: Back: no CVA tenderness Skin: Other: wound vac in place Neuro: General: patient oriented x3 Psych: Appearance: grossly normal Mental Status: other (vague ) Speech and movement: Normal speech and movement present and Clear speech present Affect: normal affect Attitude: cooperative Results Labs Result diagrams: 07/24/22 09:09 07/21/22 05:32 Labs: Abnormal lab results 07/23/22 07/23/22 07/24/22 Range/Units 15:16 19:59 07:24 RBC (4.60-5.80) X10*6/uL Hgb (14.0-18.0) g/dl Hct (42.0-52.0) % MPV (9.4-12.4) fL POC Glucose 200 H 215 H 175 H (60-115) mg/dL 07/24/22 07/24/22 Range/Units 09:09 11:11 RBC 3.08 L (4.60-5.80) X10*6/uL Hgb 8.6 L (14.0-18.0) g/dl Hct 27.1 L (42.0-52.0) % MPV 9.0 L (9.4-12.4) fL POC Glucose 270 H (60-115) mg/dL Short CBC 07/24/22 Range/Units 09:09 WBC 6.8 (4.8-10.8) X10*3/uL Hgb 8.6 L (14.0-18.0) g/dl Hct 27.1 L (42.0-52.0) % Plt Count 230 (160-400) X10*3/uL Urine 06/13/22 Range/Units 19:53 Urine Color Yellow Urine Appearance Clear Urine pH 7.0 (5.0-9.0) Ur Specific [place] >= 1.030 H (1.005-1.025) Urine Protein 300 (3+) H (Neg-Trace) mg/dL Urine Glucose (UA) 500 H (Negative) mg/dL All other labs normal. Assessment and Plan (1) Urinary retention: Status: Acute (2) Incomplete bladder emptying: Status: Acute Plan Per nursing and patient it appears patient has failed multiple voiding trials Roberts catheter in place for incomplete bladder emptying/retention Patient on Flomax and finasteride; will continue At this time will keep indwelling Roberts in place discussed following up at Urology office for voiding trial once patient is discharged. Time Spent With Patient Time: Total time managing care of this patient today ____ minutes. Procedures Date of Service Date of Service: 07/24/22
[2022-07-24 15:45] VITALS: BP 143/64; PULSE 77; RESP 18; TEMP 36.7; O2SAT 97
[2022-07-24 16:18] LABS: Glucose, Whole Blood 189 mg/dL (60-115)
[2022-07-24] MEDS: Acetaminophen 325 MG TABLET 650 MG PO (18:00)
[2022-07-24 19:31] VITALS: BP 114/59; PULSE 89; RESP 18; TEMP 37.4; O2SAT 89
[2022-07-24] MEDS: Insulin Glargine,Hum.rec.anlog 100 UNIT/ML 10 ML VIAL SUBCUT (20:21)
[2022-07-24 20:50] LABS: Glucose, Whole Blood 193 mg/dL (60-115)
[2022-07-25] MEDS: Morphine Sulfate 2 MG/ML CARTRIDGE IVPUSH (00:06)
[2022-07-25 03:03] VITALS: BP 134/64; PULSE 82; RESP 16; TEMP 36.3; O2SAT 94
[2022-07-25 07:23] VITALS: BP 127/56; PULSE 92; RESP 18; TEMP 37.7; O2SAT 98
[2022-07-25 07:48] LABS: Glucose, Whole Blood 215 mg/dL (60-115)
[2022-07-25] MEDS: Urea 15 GM POWDER 30 GM PO (08:12)
[2022-07-25] MEDS: Tamsulosin HCL 0.4 MG CAPSULE 0.8 MG PO (08:14)
[2022-07-25] MEDS: Metoprolol Tartrate 50 MG TABLET PO ×4 (08:14→20:24)
[2022-07-25] MEDS: Finasteride 5 MG TABLET PO (08:14)
[2022-07-25] MEDS: oxyCODONE HCl Immed Release 5 MG TABLET PO ×3 (08:14→20:24)
[2022-07-25] MEDS: Lidocaine 4 % Patch ADH..PATCH 1 PATCH TRANSDERMA (08:14)
[2022-07-25] MEDS: Cholecalciferol (Vitamin D3) 25 MCG TABLET 50 MCG PO (08:14)
[2022-07-25] MEDS: Ferrous Sulfate 324 MG TABLET.DR PO ×2 (08:14→15:48)
[2022-07-25] MEDS: Acetaminophen 325 MG TABLET 650 MG PO ×2 (08:14→15:47)
[2022-07-25] MEDS: 0.9 % Sodium Chloride Flush 3 ML SYRINGE IVFLUSH ×2 (08:15→20:25)
[2022-07-25] MEDS: Insulin Lispro 100 UNIT/ML 3 ML VIAL SUBCUT ×3 (08:15→15:47)
[2022-07-25] MEDS: Insulin Glargine,Hum.rec.anlog 100 UNIT/ML 10 ML VIAL 20 UNIT SUBCUT (08:16)
[2022-07-25 11:26] LABS: Glucose, Whole Blood 320 mg/dL (60-115)
--- NOTE | 2022-07-25 11:49 | PC.NURSE ---
Removed wound vac at this time; total drainage in canister 280ml, dark maroon in color. Wound packed wound with wet gauze (sterile saline), 4x4's on top, and large drainage ABD pad over top. Tegaderm in place to keep dressing intact. Pictures of wound with measurements sent to Nancy Whitfield, Surgical PA for documentation.
--- NOTE | 2022-07-25 12:23 | HO.PM.IMPN ---
Subjective Subjective Date of Service: 07/25/22 Interval History: seen and examined this morning follow up for afib decub ulcer, respiratory failure seems to be a little hard of hearing awake, alert, no distress no specific complaints this morning, but not feeling well Review of Systems Review of Systems: Yes all other systems are reviewed and are negative Constitutional Constitutional: Denies chills and Denies fever(s) Cardiovascular Cardiovascular: Denies chest pain and Denies dyspnea Respiratory Respiratory: Denies cough and Denies dyspnea Gastrointestinal Gastrointestinal: Denies abdominal pain and Denies vomiting Physical Exam Vital Signs: Vital Signs: Last Vital Signs Temp 99.8 F 07/25/22 07:23 Pulse 92 07/25/22 07:23 Resp 18 07/25/22 07:23 BP 127/56 L 07/25/22 07:23 Pulse Ox 98 07/25/22 07:23 O2 Del Method 07/25/22 07:23 O2 Flow Rate 2 07/19/22 07:33 BMI result Body Mass Index 26.6 Const: General: comfortable, no acute distress, alert and awake Resp: Effort & Inspection: normal respiratory effort and able to speak in complete sentences Cardio: Rate: regular rate Heart sounds: no murmurs GI: Inspection: No distended Palpation (GI): Soft to palpation and nontender Skin: Other: wound vac sacral area as previous picture Neuro: Other: grossly nonfocal Extrem: Other: able to move all 4 extremities spontaneously Objective Data Active Medications Acetaminophen (Acetaminophen 325 Mg Tablet) 650 mg PO Q6H PRN PRN Reason: Pain, Mild (Pain Scale 1-3) Last Admin: 07/25/22 08:14 Dose: 650 mg Documented By: JANINE Dextrose (Dextrose 50 % 25 Gm/50 Ml Syringe) 25 gm IVPUSH Q15M PRN; Protocol PRN Reason: per Hypoglycemia Standing Ord. Docusate Sodium (Docusate Sodium 100 Mg Capsule) 100 mg PO BID [facility] Last Admin: 07/25/22 08:15 Dose: Not Given Documented By: JANINE Non-Admin Reason: diarrhea Fentanyl (Fentanyl Citrate/Pf 100 Mcg/2 Ml Vial) 25 mcg IVPUSH Q5M PRN; Protocol PRN Reason: Pain, Moderate (Pain Scale 4-6 Ferrous Sulfate (Ferrous Sulfate 324 Mg Tablet.) 324 mg PO BIDWM [facility] Last Admin: 07/25/22 08:14 Dose: 324 mg Documented By: JANINE Finasteride (Finasteride 5 Mg Tablet) 5 mg PO DAILY [facility] Last Admin: 07/25/22 08:14 Dose: 5 mg Documented By: JANINE Glucose (Glucose Gel 15 Gm Gel..Gram.) 15 gm PO Q15M PRN; Protocol PRN Reason: per Hypoglycemia Standing Ord. Insulin Glargine (Insulin Glargine,Hum.Rec.Anlog 100 Unit/Ml 10 Ml Vial) 20 unit SUBCUT DAILY@0730 [facility] Last Admin: 07/25/22 08:16 Dose: 20 unit Documented By: JANINE Insulin Glargine (Insulin Glargine,Hum.Rec.Anlog 100 Unit/Ml 10 Ml Vial) 5 unit SUBCUT BEDTIME [facility] Last Admin: 07/24/22 20:21 Dose: 5 unit Documented By: TOY Insulin Human Lispro (Insulin Lispro 100 Unit/Ml 3 Ml Vial) 0 unit SUBCUT QIDACHS [facility]; Protocol Last Admin: 07/25/22 11:34 Dose: 10 unit Documented By: JANINE Lidocaine (Lidocaine 4 % Patch Adh..Patch) 1 patch TRANSDERMA DAILY [facility]; Protocol Last Admin: 07/25/22 08:14 Dose: 1 patch Documented By: JANINE Metoprolol Tartrate (Metoprolol Tartrate 50 Mg Tablet) 50 mg PO QID [facility]; Protocol Last Admin: 07/25/22 12:03 Dose: 50 mg Documented By: JANINE Morphine Sulfate (Morphine Sulfate 2 Mg/Ml Cartridge) 2 mg IVPUSH Q4H PRN; Protocol PRN Reason: Pain, Severe (Pain Scale 7-10) Last Admin: 07/25/22 00:06 Dose: 2 mg Documented By: TOY Ondansetron HCl (Ondansetron Hcl 4 Mg/2 Ml Vial) 4 mg IVPUSH Q8H PRN PRN Reason: Nausea and Vomiting Last Admin: 07/07/22 01:05 Dose: 4 mg Documented By: MARIANN Ondansetron HCl (Ondansetron Hcl 4 Mg/2 Ml Vial) 4 mg IVPUSH ONCE PRN PRN Reason: Nausea and Vomiting Ondansetron HCl (Ondansetron Hcl 4 Mg/2 Ml Vial) 4 mg IVPUSH ONCE PRN PRN Reason: Nausea and Vomiting Oxycodone HCl (Oxycodone Hcl Immed Release 5 Mg Tablet) 5 mg PO Q4H PRN PRN Reason: Pain, Mild (Pain Scale 1-3) Last Admin: 07/25/22 08:14 Dose: 5 mg Documented By: JANINE Pharmacy Consult (Consult Rx Perform Med Rec) 1 each MISCELLANE ONCE PRN PRN Reason: Consult order Polyethylene Glycol (Polyethylene Glycol 3350 17 Gm Powd.Pack) 17 gm PO DAILY PRN PRN Reason: constipation Last Admin: 06/28/22 22:01 Dose: 17 gm Documented By: ADRIANA Polyethylene Glycol (Polyethylene Glycol 3350 17 Gm Powd.Pack) 17 gm PO DAILY [facility] Last Admin: 07/25/22 08:15 Dose: Not Given Documented By: JANINE Non-Admin Reason: diarrhea Sodium Chloride (0.9 % Sodium Chloride Flush 3 Ml Syringe) 3 ml IVFLUSH QSHIFT [facility] Last Admin: 07/25/22 08:15 Dose: 3 ml Documented By: JANINE Tamsulosin HCl (Tamsulosin Hcl 0.4 Mg Capsule) 0.8 mg PO DAILY [facility] Last Admin: 07/25/22 08:14 Dose: 0.8 mg Documented By: JANINE Urea (Urea 15 Gm Powder) 30 gm PO DAILY [facility] Last Admin: 07/25/22 08:12 Dose: 30 gm Documented By: JANINE Vitamin D (Cholecalciferol (Vitamin D3) 25 Mcg Tablet) 50 mcg PO DAILY [facility] Last Admin: 07/25/22 08:14 Dose: 50 mcg Documented By: JANINE Zinc Acetate/Diphenhydramine (Diphenhydramine Hcl 2 % Cream 28 Gm Tube) 1 appl TOPICAL TID PRN; Protocol PRN Reason: itching Labs CBC & Chem 7: 07/24/22 09:09 07/21/22 05:32 Labs: Laboratory Results - last 24 hr 07/24/22 07/24/22 07/25/22 16:11 19:40 07:27 POC Glucose 189 H 193 H 215 H 07/25/22 11:04 POC Glucose 320 H Assessment and Plan (1) Atrial fibrillation: Status: Acute (2) Urinary retention: Status: Acute Plan 74yo M with DM2, HTN, HLD, chronic venous stasis dermatitis presented with mechanical fall, admitted for hypoxia due to PNA Atrial flutter/fib with RVR intermittently likely due to blood loss at site of decubitus ulcer Continue metoprolol 50 mg q.6 hours (prior dosage metoprolol 150 b.i.d.) follow clinical course closely. hold apixaban, resume as appropriate following wound vac change/debridement Sacral decubitus ulcer stage 4 s/p 07/08,07/17 debridement of sacral decubitus ulcer, including skin, dermis, subcutaneous tissue and muscle; operative findings of necrotic skin, subcutaneous tissue and muscle. Ulcer measured approximately 10 cm x 10 cm in diameter with a depth of 4 cm = stage 3 s/p wound vac placement 07/22/22 pain management surgery following - plan for wound VAC change in OR 07/26 with possible debridement Acute blood loss anemia blood loss at site of decub ulcer patient received 2 unit of packed RBC continue ferrous sulfate b.i.d. H/H stable Traumatic SAH CT brain 06/26 New small areas of extra-axial hemorrhage adjacent to the left posterior parietal lobe, bilateral occipital lobes and in the occipital horns of both lateral ventricles, repeat CT 06/28 unchanged seen by neuro - rec to hold AC for two weeks no headache, no dizziness No other complications Acute hypoxic respiratory failure due to PNA finished 10d of ABX back on room air Urinary retention failed voiding trial x2 continue tamsulosin and finasteride seen by urology, continue roberts upon discharge - outpatient urology follow up hyponatremia resolved continue urea cortisol, TSH wnl Mechanical fall difficulty ambulating; awaiting SNF placement generalized weakness 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 but not clinically NPH per Neurology acute/chronic hypoNa resolved,on fluid restriction change fluid restriction to 1800 mL New-onset AF/RVR LVEF >70%, seen by Cardiology continue metoprolol hold apixaban due to significant anemia and blood loss at site of sacral decubitus ulcer incidental 1.3cm pancreatic lesions may reflect adjacent pancreatic cysts outpt MRI/MRCP DM2 continue Lantus, SSI HTN soft blood pressures losartan and hydralazine discontinued continue metoprolol HLD statin VTE ppx: SCDs, apixaban on hold attending Dr. Contreras Full code Disposition. Discharge to senior living facility when medically clear In my clinical judgment, the patient requires continued inpatient hospitalization for the following reasons: SNF placement and follow-up on stage IV decub ulcer with need for further debridement/wound vac change under anesthesia Time Spent With Patient Time: Total time managing care of this patient today ____ minutes. Quality Stroke Does the patient have a stroke diagnosis?: No VTE Prior VTE?: No VTE Risk Level:: Medical - moderate - high VTE Device Contraindication: Treatment Not Indicated VTE Drug Contraindication: N/A - Med Ordered
[2022-07-25 14:00] VITALS: BP 121/59; PULSE 88; RESP 18; TEMP 36.6; O2SAT 98
--- NOTE | 2022-07-25 14:04 | PM.PNGS ---
Subjective Subjective Date of Service: 07/25/22 Interval history: No new complaints Wound VAC was leaking so this was taken down Physical Exam Vital Signs: Vital Signs: Last Vital Signs Temp 99.8 F 07/25/22 07:23 Pulse 92 07/25/22 07:23 Resp 18 07/25/22 07:23 BP 127/56 L 07/25/22 07:23 Pulse Ox 98 07/25/22 07:23 O2 Del Method 07/25/22 07:23 O2 Flow Rate 2 07/19/22 07:33 BMI result Body Mass Index 26.6 Const: General: comfortable and no acute distress Resp: Effort & Inspection: normal respiratory effort Back/Spine/Pelvis: Other: Open wound, sacral area with some looking of thick fibrinous debris Objective Data Active Medications Acetaminophen (Acetaminophen 325 Mg Tablet) 650 mg PO Q6H PRN PRN Reason: Pain, Mild (Pain Scale 1-3) Last Admin: 07/25/22 08:14 Dose: 650 mg Documented By: JANINE Dextrose (Dextrose 50 % 25 Gm/50 Ml Syringe) 25 gm IVPUSH Q15M PRN; Protocol PRN Reason: per Hypoglycemia Standing Ord. Docusate Sodium (Docusate Sodium 100 Mg Capsule) 100 mg PO BID [facility] Last Admin: 07/25/22 08:15 Dose: Not Given Documented By: JANINE Non-Admin Reason: diarrhea Fentanyl (Fentanyl Citrate/Pf 100 Mcg/2 Ml Vial) 25 mcg IVPUSH Q5M PRN; Protocol PRN Reason: Pain, Moderate (Pain Scale 4-6 Ferrous Sulfate (Ferrous Sulfate 324 Mg Tablet.) 324 mg PO BIDWM [facility] Last Admin: 07/25/22 08:14 Dose: 324 mg Documented By: JANINE Finasteride (Finasteride 5 Mg Tablet) 5 mg PO DAILY [facility] Last Admin: 07/25/22 08:14 Dose: 5 mg Documented By: JANINE Glucose (Glucose Gel 15 Gm Gel..Gram.) 15 gm PO Q15M PRN; Protocol PRN Reason: per Hypoglycemia Standing Ord. Insulin Glargine (Insulin Glargine,Hum.Rec.Anlog 100 Unit/Ml 10 Ml Vial) 20 unit SUBCUT DAILY@0730 [facility] Last Admin: 07/25/22 08:16 Dose: 20 unit Documented By: JANINE Insulin Glargine (Insulin Glargine,Hum.Rec.Anlog 100 Unit/Ml 10 Ml Vial) 5 unit SUBCUT BEDTIME [facility] Last Admin: 07/24/22 20:21 Dose: 5 unit Documented By: TOY Insulin Human Lispro (Insulin Lispro 100 Unit/Ml 3 Ml Vial) 0 unit SUBCUT QIDACHS [facility]; Protocol Last Admin: 07/25/22 11:34 Dose: 10 unit Documented By: JANINE Lidocaine (Lidocaine 4 % Patch Adh..Patch) 1 patch TRANSDERMA DAILY [facility]; Protocol Last Admin: 07/25/22 08:14 Dose: 1 patch Documented By: JANINE Metoprolol Tartrate (Metoprolol Tartrate 50 Mg Tablet) 50 mg PO QID [facility]; Protocol Last Admin: 07/25/22 12:03 Dose: 50 mg Documented By: JANINE Morphine Sulfate (Morphine Sulfate 2 Mg/Ml Cartridge) 2 mg IVPUSH Q4H PRN; Protocol PRN Reason: Pain, Severe (Pain Scale 7-10) Last Admin: 07/25/22 00:06 Dose: 2 mg Documented By: TOY Ondansetron HCl (Ondansetron Hcl 4 Mg/2 Ml Vial) 4 mg IVPUSH Q8H PRN PRN Reason: Nausea and Vomiting Last Admin: 07/07/22 01:05 Dose: 4 mg Documented By: MARIANN Ondansetron HCl (Ondansetron Hcl 4 Mg/2 Ml Vial) 4 mg IVPUSH ONCE PRN PRN Reason: Nausea and Vomiting Ondansetron HCl (Ondansetron Hcl 4 Mg/2 Ml Vial) 4 mg IVPUSH ONCE PRN PRN Reason: Nausea and Vomiting Oxycodone HCl (Oxycodone Hcl Immed Release 5 Mg Tablet) 5 mg PO Q4H PRN PRN Reason: Pain, Mild (Pain Scale 1-3) Last Admin: 07/25/22 08:14 Dose: 5 mg Documented By: JANINE Pharmacy Consult (Consult Rx Perform Med Rec) 1 each MISCELLANE ONCE PRN PRN Reason: Consult order Polyethylene Glycol (Polyethylene Glycol 3350 17 Gm Powd.Pack) 17 gm PO DAILY PRN PRN Reason: constipation Last Admin: 06/28/22 22:01 Dose: 17 gm Documented By: ADRIANA Polyethylene Glycol (Polyethylene Glycol 3350 17 Gm Powd.Pack) 17 gm PO DAILY [facility] Last Admin: 07/25/22 08:15 Dose: Not Given Documented By: JANINE Non-Admin Reason: diarrhea Sodium Chloride (0.9 % Sodium Chloride Flush 3 Ml Syringe) 3 ml IVFLUSH QSHIFT [facility] Last Admin: 07/25/22 08:15 Dose: 3 ml Documented By: JANINE Tamsulosin HCl (Tamsulosin Hcl 0.4 Mg Capsule) 0.8 mg PO DAILY [facility] Last Admin: 07/25/22 08:14 Dose: 0.8 mg Documented By: JANINE Urea (Urea 15 Gm Powder) 30 gm PO DAILY [facility] Last Admin: 07/25/22 08:12 Dose: 30 gm Documented By: JANINE Vitamin D (Cholecalciferol (Vitamin D3) 25 Mcg Tablet) 50 mcg PO DAILY [facility] Last Admin: 07/25/22 08:14 Dose: 50 mcg Documented By: JANINE Zinc Acetate/Diphenhydramine (Diphenhydramine Hcl 2 % Cream 28 Gm Tube) 1 appl TOPICAL TID PRN; Protocol PRN Reason: itching Labs CBC & Chem 7: 07/24/22 09:09 07/21/22 05:32 Labs: Laboratory Results - last 24 hr 07/24/22 07/24/22 07/25/22 16:11 19:40 07:27 POC Glucose 189 H 193 H 215 H 07/25/22 11:04 POC Glucose 320 H Procedures Date of Service Date of Service: 07/25/22 Progress Note: A&P Assessment and plan (1) Stage 4 decubitus ulcer: Status: Acute Assessment and Plan: Plan to repeat debridement tomorrow in the operating room and replaced the wound VAC I reviewed with him the technique of this procedure Explained the risks, benefits and alternatives He says that he is not sure yet whether he will go ahead -I cannot tell whether he is joking or not says he does this a lot NPO post midnight Time Spent With Patient Time: Total time managing care of this patient today ____ minutes. Quality Stroke Does the patient have a stroke diagnosis?: No VTE Prior VTE?: No VTE Risk Level:: Medical - moderate - high VTE Device Contraindication: Treatment Not Indicated VTE Drug Contraindication: N/A - Med Ordered
--- NOTE | 2022-07-25 14:26 | MHC.CM.PN ---
EMR REVIEWED, PER SURGICAL PT WILL NEED FURTHER DEBRIDEMENT IN OR AND CHANGE OF WOUND VAC HOWEVER PT WAS UNDECIDED WHEN MEETING W/SURGEON, CM WILL CONT TO FOLLOW D/C NEEDS. FS STILL AWAITING LETTER FROM [employer].
[2022-07-25] MEDS: Insulin Glargine,Hum.rec.anlog 100 UNIT/ML 10 ML VIAL SUBCUT (20:24)
[2022-07-25 23:57] VITALS: BP 152/70; PULSE 87; RESP 17; TEMP 36.7; O2SAT 93
[2022-07-26] VITALS (7 sets, daily range): BP systolic 99–143; BP diastolic 52–64; PULSE 85–133; RESP 17–18; TEMP 36.7–37; O2SAT 96–99
[2022-07-26] MEDS: Morphine Sulfate 2 MG/ML CARTRIDGE IVPUSH ×2 (05:58→17:16)
--- NOTE | 2022-07-26 07:34 | ECG_ITS ---
Test Reason : cp Blood Pressure : / mmHG Vent. Rate : 154 BPM Atrial Rate : 174 BPM P-R Int : 000 ms QRS Dur : 110 ms QT Int : 262 ms P-R-T Axes : 000 -67 028 degrees QTc Int : 419 ms Supraventricular tachycardia Right bundle branch block Left anterior fascicular block Marked ST abnormality, possible anteroseptal subendocardial injury Abnormal ECG When compared with ECG of 23-JUL-2022 16:40, Supraventricular tachycardia present ST more depressed Anterior leads Referred By: Sakshi Turcios Electronically Signed By:Huber Valdivia
[2022-07-26] MEDS: Metoprolol Tartrate 5 MG/5 ML VIAL 2.5 MG IVPUSH (08:04)
[2022-07-26 08:16] LABS: Hematocrit 27.4 % (42.0-52.0); Hemoglobin 8.7 g/dl (14.0-18.0); Mean Corpuscular HGB Conc 31.8 g/dl (31.0-36.0); Mean Corpuscular Hemoglobin 27.8 pg (27.0-33.0); Mean Corpuscular Volume 87.5 fL (80.0-98.0); Mean Platelet Volume 8.6 fL (9.4-12.4); Platelet Count 197 X10*3/uL (160-400); Red Blood Count 3.13 X10*6/uL (4.60-5.80); Red Cell Distribution Width 15.9 % (11.0-16.0); White Blood Count 7.3 X10*3/uL (4.8-10.8)
[2022-07-26 08:32] LABS: Anion Gap 13 (12-20); Blood Urea Nitrogen 19 mg/dL (9-16); Carbon Dioxide 30 mmol/L (22-29); Chloride 100 mmol/L (96-108); Creatinine Clr Calc Pharmacy 108.9; Estimated Glomerular Filt Rate > 60; Glucose Random 129 mg/dL (60-115); Magnesium 1.8 mg/dL (1.6-2.6); Potassium 3.9 mmol/L (3.3-5.1); Sodium 139 mmol/L (135-145)
--- NOTE | 2022-07-26 08:34 | PM.PNGS ---
Subjective Subjective Date of Service: 07/26/22 <Nancy Whitfield PA-C - Last Filed: 07/26/22 08:38> 07/26/22 <Quang Early MD - Last Filed: 07/26/22 11:40> Interval history: Refusing further surgical intervention for sacral wound. <Nancy Whitfield PA-C - Last Filed: 07/26/22 08:38> Physical Exam Vital Signs: Vital Signs: Last Vital Signs Temp 98.6 F 07/26/22 03:19 Pulse 99 07/26/22 03:19 Resp 17 07/26/22 03:19 BP 119/56 L 07/26/22 03:19 Pulse Ox 97 07/26/22 03:19 O2 Del Method 07/26/22 03:19 O2 Flow Rate 2 07/19/22 07:33 BMI result Body Mass Index 26.6 <Nancy Whitfield PA-C - Last Filed: 07/26/22 08:38> Const: General: no acute distress <Nancy Whitfield PA-C - Last Filed: 07/26/22 08:38> Resp: Effort & Inspection: normal respiratory effort <Nancy Whitfield PA-C - Last Filed: 07/26/22 08:38> Back/Spine/Pelvis: Other: sacral ulcer- wound base with necrosis and fibrinous exudate, surrounding skin edges erythematous, nonblancing <Nancy Whtifield PA-C - Last Filed: 07/26/22 08:38> Extrem: General: No no pedal edema <Nancy Whitfield PA-C - Last Filed: 07/26/22 08:38> Objective Data Active Medications Acetaminophen (Acetaminophen 325 Mg Tablet) 650 mg PO Q6H PRN PRN Reason: Pain, Mild (Pain Scale 1-3) Last Admin: 07/25/22 15:47 Dose: 650 mg Documented By: JANINE Dextrose (Dextrose 50 % 25 Gm/50 Ml Syringe) 25 gm IVPUSH Q15M PRN; Protocol PRN Reason: per Hypoglycemia Standing Ord. Docusate Sodium (Docusate Sodium 100 Mg Capsule) 100 mg PO BID [facility] Last Admin: 07/25/22 20:11 Dose: Not Given Documented By: HO.SANNAFA Non-Admin Reason: Patient Condition Contraindication Fentanyl (Fentanyl Citrate/Pf 100 Mcg/2 Ml Vial) 25 mcg IVPUSH Q5M PRN; Protocol PRN Reason: Pain, Moderate (Pain Scale 4-6 Ferrous Sulfate (Ferrous Sulfate 324 Mg Tablet.Dr) 324 mg PO BIDWM [facility] Last Admin: 07/25/22 15:48 Dose: 324 mg Documented By: JANINE Finasteride (Finasteride 5 Mg Tablet) 5 mg PO DAILY [facility] Last Admin: 07/25/22 08:14 Dose: 5 mg Documented By: JANINE Glucose (Glucose Gel 15 Gm Gel..Gram.) 15 gm PO Q15M PRN; Protocol PRN Reason: per Hypoglycemia Standing Ord. Insulin Glargine (Insulin Glargine,Hum.Rec.Anlog 100 Unit/Ml 10 Ml Vial) 20 unit SUBCUT DAILY@0730 [facility] Last Admin: 07/25/22 08:16 Dose: 20 unit Documented By: JANINE Insulin Glargine (Insulin Glargine,Hum.Rec.Anlog 100 Unit/Ml 10 Ml Vial) 5 unit SUBCUT BEDTIME [facility] Last Admin: 07/25/22 20:24 Dose: 5 unit Documented By: TOY Insulin Human Lispro (Insulin Lispro 100 Unit/Ml 3 Ml Vial) 0 unit SUBCUT QIDACHS [facility]; Protocol Last Admin: 07/26/22 07:50 Dose: Not Given Documented By: TONNY Non-Admin Reason: No Access Lidocaine (Lidocaine 4 % Patch Adh..Patch) 1 patch TRANSDERMA DAILY [facility]; Protocol Last Admin: 07/25/22 08:14 Dose: 1 patch Documented By: JANINE Metoprolol Tartrate (Metoprolol Tartrate 50 Mg Tablet) 50 mg PO QID [facility]; Protocol Last Admin: 07/25/22 20:24 Dose: 50 mg Documented By: TOY Morphine Sulfate (Morphine Sulfate 2 Mg/Ml Cartridge) 2 mg IVPUSH Q4H PRN; Protocol PRN Reason: Pain, Severe (Pain Scale 7-10) Last Admin: 07/26/22 05:58 Dose: 2 mg Documented By: TOY Ondansetron HCl (Ondansetron Hcl 4 Mg/2 Ml Vial) 4 mg IVPUSH Q8H PRN PRN Reason: Nausea and Vomiting Last Admin: 07/07/22 01:05 Dose: 4 mg Documented By: MARIANN Ondansetron HCl (Ondansetron Hcl 4 Mg/2 Ml Vial) 4 mg IVPUSH ONCE PRN PRN Reason: Nausea and Vomiting Ondansetron HCl (Ondansetron Hcl 4 Mg/2 Ml Vial) 4 mg IVPUSH ONCE PRN PRN Reason: Nausea and Vomiting Oxycodone HCl (Oxycodone Hcl Immed Release 5 Mg Tablet) 5 mg PO Q4H PRN PRN Reason: Pain, Mild (Pain Scale 1-3) Last Admin: 07/25/22 20:24 Dose: 5 mg Documented By: TOY Pharmacy Consult (Consult Rx Perform Med Rec) 1 each MISCELLANE ONCE PRN PRN Reason: Consult order Polyethylene Glycol (Polyethylene Glycol 3350 17 Gm Powd.Pack) 17 gm PO DAILY PRN PRN Reason: constipation Last Admin: 06/28/22 22:01 Dose: 17 gm Documented By: ADRIANA Polyethylene Glycol (Polyethylene Glycol 3350 17 Gm Powd.Pack) 17 gm PO DAILY [facility] Last Admin: 07/25/22 08:15 Dose: Not Given Documented By: JANINE Non-Admin Reason: diarrhea Sodium Chloride (0.9 % Sodium Chloride Flush 3 Ml Syringe) 3 ml IVFLUSH QSHIFT [facility] Last Admin: 07/25/22 20:25 Dose: 3 ml Documented By: TOY Tamsulosin HCl (Tamsulosin Hcl 0.4 Mg Capsule) 0.8 mg PO DAILY [facility] Last Admin: 07/25/22 08:14 Dose: 0.8 mg Documented By: JANINE Urea (Urea 15 Gm Powder) 30 gm PO DAILY [facility] Last Admin: 07/25/22 08:12 Dose: 30 gm Documented By: JANINE Vitamin D (Cholecalciferol (Vitamin D3) 25 Mcg Tablet) 50 mcg PO DAILY [facility] Last Admin: 07/25/22 08:14 Dose: 50 mcg Documented By: JANINE Zinc Acetate/Diphenhydramine (Diphenhydramine Hcl 2 % Cream 28 Gm Tube) 1 appl TOPICAL TID PRN; Protocol PRN Reason: itching <Nancy Roseann, PA-C - Last Filed: 07/26/22 08:38> Labs CBC & Chem 7: : 07/26/22 08:10 07/26/22 08:10 <Nancy Whitfield PA-C - Last Filed: 07/26/22 08:38> Labs: Laboratory Results - last 24 hr 07/25/22 07/25/22 07/25/22 11:04 15:14 20:15 MCV MCH MCHC RDW Plt Count MPV Absolute Nucleated RBC Nucleated RBC % (auto) Anion Gap Estim Creat Clear Calc Estimated GFR POC Glucose 320 H 197 H 153 H Random Glucose Calcium Magnesium 07/26/22 07/26/22 07/26/22 07:31 08:10 08:10 MCV 87.5 MCH 27.8 MCHC 31.8 RDW 15.9 Plt Count 197 MPV 8.6 L Absolute Nucleated RBC 0.000 Nucleated RBC % (auto) 0.0 Anion Gap 13 Estim Creat Clear Calc 108.9 Estimated GFR > 60 POC Glucose 119 H Random Glucose 129 H Calcium 8.0 L Magnesium 1.8 <Nancy Whitfield PA-C - Last Filed: 07/26/22 08:38> Procedures Date of Service Date of Service: 07/26/22 <Quang Early MD - Last Filed: 07/26/22 11:40> Progress Note: A&P Assessment and plan (1) Stage 4 decubitus ulcer: Status: Acute <Nancy Whitfield PA-C - Last Filed: 07/26/22 08:38> Assessment and Plan: has been refusing debridement in OR also has SVTs accdg to hospitalist service continue weto to dry dressings daily will still need debridement down the line seen and examined independently - agree with JOSE GUADALUPE Whitfield <Quang Early MD - Last Filed: 07/26/22 11:40> Assessment and Plan: 81 year old male admitted for hypoxia and respiratory failure following a fall found to have a sacral decubitus ulcer requiring multiple debridements. Wound vac placed 07/22/22 but became soiled yesterday and removed yesterday at bedside. Wound has necrosis and exudate and patient is refusing further debridement- continued wound vac therapy is not appropriate. Wet to dry dressings in place. To be changed BID. Continue supportive management with air loss bed, nutritional support. <Nancy Whitfield PA-C - Last Filed: 07/26/22 08:38> Time Spent With Patient Time: Total time managing care of this patient today ____ minutes. <Nancy Whitfield PA-C - Last Filed: 07/26/22 08:38> Quality Stroke Does the patient have a stroke diagnosis?: No <Nancy Whitfield PA-C - Last Filed: 07/26/22 08:38> VTE Prior VTE?: No <Nancy Whitfield PA-C - Last Filed: 07/26/22 08:38> VTE Risk Level:: Medical - moderate - high <Nancy Whitfield PA-C - Last Filed: 07/26/22 08:38> VTE Device Contraindication: Treatment Not Indicated <Nancy Whitfield PA-C - Last Filed: 07/26/22 08:38> VTE Drug Contraindication: N/A - Med Ordered <Nancy Whitfield PA-C - Last Filed: 07/26/22 08:38>
--- NOTE | 2022-07-26 08:35 | ECG_ITS ---
Test Reason : irreg rhythm Blood Pressure : / mmHG Vent. Rate : 119 BPM Atrial Rate : 119 BPM P-R Int : 000 ms QRS Dur : 118 ms QT Int : 366 ms P-R-T Axes : 000 -54 025 degrees QTc Int : 514 ms Junctional rhythm with PVCs Left anterior fascicular block Marked ST abnormality, possible septal subendocardial injury Abnormal ECG When compared with ECG of 26-JUL-2022 07:51, Premature ventricular complexes Present Supraventricular tachycardia not present anymor Referred By: Sakshi Turcios Electronically Signed By:Huber Valdivia
[2022-07-26] MEDS: Insulin Glargine,Hum.rec.anlog 100 UNIT/ML 10 ML VIAL 20 UNIT SUBCUT (09:01)
[2022-07-26] MEDS: Tamsulosin HCL 0.4 MG CAPSULE 0.8 MG PO (09:02)
[2022-07-26] MEDS: Finasteride 5 MG TABLET PO (09:02)
[2022-07-26] MEDS: Metoprolol Tartrate 50 MG TABLET PO ×3 (09:02→21:23)
[2022-07-26] MEDS: Ferrous Sulfate 324 MG TABLET.DR PO ×2 (09:02→17:16)
[2022-07-26] MEDS: Cholecalciferol (Vitamin D3) 25 MCG TABLET 50 MCG PO (09:02)
[2022-07-26] MEDS: Docusate Sodium 100 MG CAPSULE PO (09:02)
[2022-07-26] MEDS: 0.9 % Sodium Chloride Flush 3 ML SYRINGE IVFLUSH ×3 (09:02→21:23)
[2022-07-26] MEDS: oxyCODONE HCl Immed Release 5 MG TABLET PO ×2 (09:33→14:08)
[2022-07-26] MEDS: Amiodarone HCL 200 MG TABLET PO ×2 (10:06→11:01)
--- NOTE | 2022-07-26 11:04 | MHC.CLN ---
F/U PT WITH INCREASED NUTRITION RISK R/T STAGE 4 PRESSURE INJURY. PATIENT DOES NOT WANT FURTHER DEBRIDEMENT OF WOUND. WOUND VAC DISCONTINUED. PO INTAKE VARIABLE, 25-100%. DIET RX: 2200DM TO PROMOTE WOUND HEALING SUPPLEMENT CHANGED TO OPTIMIZE NUTRITION: ENSURE TID PLUS ANDREZ BID. PROVIDES ADDITIONAL 1210 KCALS, 65 G PROTEIN. MONITOR PO INTAKE CLOSELY.
--- NOTE | 2022-07-26 12:06 | HO.PM.IMPN ---
Subjective Subjective Date of Service: 07/26/22 Interval History: seen and examined this morning follow up for sacral wound was in SVT this am, HR improved with a dose of IV lopressor patient declining labs, EKG and surgical procedure, he eventually allowed labs and EKG to be obtained denies sob, chest pain, palpitations Review of Systems Review of Systems: Yes all other systems are reviewed and are negative Constitutional Constitutional: Denies chills and Denies fever(s) ENT Ears, Nose, Mouth, and Throat: Denies dizziness Cardiovascular Cardiovascular: Denies chest pain, Denies palpitations and Denies dyspnea Respiratory Respiratory: Denies dyspnea Gastrointestinal Gastrointestinal: Denies abdominal pain Neurologic Neurologic: Denies dizziness Endocrine Endocrine: Denies palpitations Physical Exam Vital Signs: Vital Signs: Last Vital Signs Temp 98.6 F 07/26/22 08:00 Pulse 109 H 07/26/22 08:00 Resp 18 07/26/22 08:00 BP 126/63 07/26/22 08:00 Pulse Ox 96 07/26/22 08:00 O2 Del Method 07/26/22 08:00 O2 Flow Rate 2 07/19/22 07:33 BMI result Body Mass Index 26.6 Const: General: comfortable, no acute distress, alert and awake Resp: Effort & Inspection: normal respiratory effort and able to speak in complete sentences Cardio: Rate: regular rate Heart sounds: no murmurs GI: Inspection: No distended Palpation (GI): Soft to palpation and nontender Skin: Other: wound vac removed. dressing in place Neuro: Other: grossly nonfocal Extrem: Other: able to move all 4 extremities spontaneously General: Yes no pedal edema Objective Data Active Medications Acetaminophen (Acetaminophen 325 Mg Tablet) 650 mg PO Q6H PRN PRN Reason: Pain, Mild (Pain Scale 1-3) Last Admin: 07/25/22 15:47 Dose: 650 mg Documented By: JANINE Amiodarone HCl (Amiodarone Hcl 200 Mg Tablet) 400 mg PO BID [facility] Dextrose (Dextrose 50 % 25 Gm/50 Ml Syringe) 25 gm IVPUSH Q15M PRN; Protocol PRN Reason: per Hypoglycemia Standing Ord. Docusate Sodium (Docusate Sodium 100 Mg Capsule) 100 mg PO BID [facility] Last Admin: 07/26/22 09:02 Dose: 100 mg Documented By: TONNY Fentanyl (Fentanyl Citrate/Pf 100 Mcg/2 Ml Vial) 25 mcg IVPUSH Q5M PRN; Protocol PRN Reason: Pain, Moderate (Pain Scale 4-6 Ferrous Sulfate (Ferrous Sulfate 324 Mg Tablet.Dr) 324 mg PO BIDWM [facility] Last Admin: 07/26/22 09:02 Dose: 324 mg Documented By: TONNY Finasteride (Finasteride 5 Mg Tablet) 5 mg PO DAILY [facility] Last Admin: 07/26/22 09:02 Dose: 5 mg Documented By: TONNY Glucose (Glucose Gel 15 Gm Gel..Gram.) 15 gm PO Q15M PRN; Protocol PRN Reason: per Hypoglycemia Standing Ord. Insulin Glargine (Insulin Glargine,Hum.Rec.Anlog 100 Unit/Ml 10 Ml Vial) 20 unit SUBCUT DAILY@0730 [facility] Last Admin: 07/26/22 09:01 Dose: 20 unit Documented By: TONNY Insulin Glargine (Insulin Glargine,Hum.Rec.Anlog 100 Unit/Ml 10 Ml Vial) 5 unit SUBCUT BEDTIME [facility] Last Admin: 07/25/22 20:24 Dose: 5 unit Documented By: TOY Insulin Human Lispro (Insulin Lispro 100 Unit/Ml 3 Ml Vial) 0 unit SUBCUT QIDACHS [facility]; Protocol Last Admin: 07/26/22 11:58 Dose: Not Given Documented By: TONNY Non-Admin Reason: No Insulin Coverage Lidocaine (Lidocaine 4 % Patch Adh..Patch) 1 patch TRANSDERMA DAILY [facility]; Protocol Last Admin: 07/26/22 09:26 Dose: Not Given Documented By: TONNY Non-Admin Reason: Patient Refused Metoprolol Tartrate (Metoprolol Tartrate 50 Mg Tablet) 50 mg PO QID [facility]; Protocol Last Admin: 07/26/22 09:02 Dose: 50 mg Documented By: TONNY Morphine Sulfate (Morphine Sulfate 2 Mg/Ml Cartridge) 2 mg IVPUSH Q4H PRN; Protocol PRN Reason: Pain, Severe (Pain Scale 7-10) Last Admin: 07/26/22 05:58 Dose: 2 mg Documented By: TOY Ondansetron HCl (Ondansetron Hcl 4 Mg/2 Ml Vial) 4 mg IVPUSH Q8H PRN PRN Reason: Nausea and Vomiting Last Admin: 07/07/22 01:05 Dose: 4 mg Documented By: MARIANN Ondansetron HCl (Ondansetron Hcl 4 Mg/2 Ml Vial) 4 mg IVPUSH ONCE PRN PRN Reason: Nausea and Vomiting Ondansetron HCl (Ondansetron Hcl 4 Mg/2 Ml Vial) 4 mg IVPUSH ONCE PRN PRN Reason: Nausea and Vomiting Oxycodone HCl (Oxycodone Hcl Immed Release 5 Mg Tablet) 5 mg PO Q4H PRN PRN Reason: Pain, Mild (Pain Scale 1-3) Last Admin: 07/26/22 09:33 Dose: 5 mg Documented By: TONNY Pharmacy Consult (Consult Rx Perform Med Rec) 1 each MISCELLANE ONCE PRN PRN Reason: Consult order Polyethylene Glycol (Polyethylene Glycol 3350 17 Gm Powd.Pack) 17 gm PO DAILY PRN PRN Reason: constipation Last Admin: 06/28/22 22:01 Dose: 17 gm Documented By: ADRIANA Polyethylene Glycol (Polyethylene Glycol 3350 17 Gm Powd.Pack) 17 gm PO DAILY [facility] Last Admin: 07/26/22 09:27 Dose: Not Given Documented By: TONNY Non-Admin Reason: Patient Refused Sodium Chloride (0.9 % Sodium Chloride Flush 3 Ml Syringe) [facility] Last Admin: 07/26/22 09:02 Dose: 3 ml Documented By: TONNY Tamsulosin HCl (Tamsulosin Hcl 0.4 Mg Capsule) 0.8 mg PO DAILY [facility] Last Admin: 07/26/22 09:02 Dose: 0.8 mg Documented By: TONNY Urea (Urea 15 Gm Powder) 30 gm PO DAILY [facility] Last Admin: 07/26/22 09:28 Dose: Not Given Documented By: TONNY Non-Admin Reason: Patient Refused Vitamin D (Cholecalciferol (Vitamin D3) 25 Mcg Tablet) 50 mcg PO DAILY [facility] Last Admin: 07/26/22 09:02 Dose: 50 mcg Documented By: TONNY Zinc Acetate/Diphenhydramine (Diphenhydramine Hcl 2 % Cream 28 Gm Tube) 1 appl TOPICAL TID PRN; Protocol PRN Reason: itching Labs CBC & Chem 7: 12/23/22 08:10 07/26/22 08:10 Labs: Laboratory Results - last 24 hr 07/25/22 07/25/22 07/26/22 15:14 20:15 07:31 MCV MCH MCHC RDW Plt Count MPV Absolute Nucleated RBC Nucleated RBC % (auto) Anion Gap Estim Creat Clear Calc Estimated GFR POC Glucose 197 H 153 H 119 H Random Glucose Calcium Magnesium 07/26/22 07/26/22 07/26/22 08:10 08:10 11:23 MCV 87.5 MCH 27.8 MCHC 31.8 RDW 15.9 Plt Count 197 MPV 8.6 L Absolute Nucleated RBC 0.000 Nucleated RBC % (auto) 0.0 Anion Gap 13 Estim Creat Clear Calc 108.9 Estimated GFR > 60 POC Glucose 144 H Random Glucose 129 H Calcium 8.0 L Magnesium 1.8 Assessment and Plan (1) Stage 4 decubitus ulcer: Status: Acute (2) SVT (supraventricular tachycardia): Status: Acute Plan 74yo M with DM2, HTN, HLD, chronic venous stasis dermatitis presented with mechanical fall, admitted for hypoxia due to PNA Atrial flutter/fib with RVR intermittently LVEF >70% will convert lopressor to toprol xl starting tomorrow hold apixaban, resume as appropriate following debridement cardiology following episode of SVT vs atrial tachycardia am 07/26 HR improved with IV Lopressor seen by cardiology, recommended to start amiodorone 400 bid plan to transition lopressor to toprol xl in am blood pressure has remained stable. patient asymptomatic Sacral decubitus ulcer stage 4 s/p 07/08,07/17 debridement of sacral decubitus ulcer, including skin, dermis, subcutaneous tissue and muscle; operative findings of necrotic skin, subcutaneous tissue and muscle. Ulcer measured approximately 10 cm x 10 cm in diameter with a depth of 4 cm s/p wound vac placement 07/22/22 - removed 07/25 after it became soiled surgery following - had planned for further debridement in OR today but patient declined continue wet to dry dressings for now - will likely need further debridement Acute blood loss anemia blood loss at site of decub ulcer patient received 2 unit of packed RBC continue ferrous sulfate b.i.d. H/H stable Traumatic SAH CT brain 06/26 New small areas of extra-axial hemorrhage adjacent to the left posterior parietal lobe, bilateral occipital lobes and in the occipital horns of both lateral ventricles, repeat CT 06/28 unchanged seen by neuro - rec to hold AC for two weeks no headache, no dizziness No other complications Acute hypoxic respiratory failure due to PNA finished 10d of ABX back on room air Urinary retention failed voiding trial x2 continue tamsulosin and finasteride seen by urology, continue roberts upon discharge - outpatient urology follow up hyponatremia resolved continue urea cortisol, TSH wnl Mechanical fall difficulty ambulating; awaiting SNF placement generalized weakness 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 but not clinically NPH per Neurology acute/chronic hypoNa resolved,on fluid restriction change fluid restriction to 1800 mL incidental 1.3cm pancreatic lesions may reflect adjacent pancreatic cysts outpt MRI/MRCP DM2 continue Lantus, SSI HTN soft blood pressures losartan and hydralazine discontinued continue metoprolol HLD statin VTE ppx: SCDs, apixaban on hold attending Dr. Contreras Full code Disposition. Discharge to long-term facility when medically clear In my clinical judgment, the patient requires continued inpatient hospitalization for the following reasons: SNF placement and follow-up on stage IV decub ulcer with need for further debridement. management of atrial tachycardia vs SVT Time Spent With Patient Time: Total time managing care of this patient today ____ minutes. Quality Stroke Does the patient have a stroke diagnosis?: No VTE Prior VTE?: No VTE Risk Level:: Medical - moderate - high VTE Device Contraindication: Treatment Not Indicated VTE Drug Contraindication: N/A - Med Ordered
--- NOTE | 2022-07-26 12:29 | PC.NURSE ---
Pt was had elevated HR this am- 130-140s. Pt given IV metoprolol which was effective. HR consistantly 80-90s. Pt refused scheduled debridement this am.
--- NOTE | 2022-07-26 15:04 | MHC.CM.PN ---
EMR REVIEWED AND PT NOT MEDICALLY CLEARED FOR DC (SVT EPISODE) CM WILL CONTINUE TO FOLLOW FOR SAFE DC PLAN.
--- NOTE | 2022-07-26 17:11 | PM.CNCAR ---
History of Present Illness History of Present Illness Date of Service: 07/26/22 Requesting physician: Sakshi Turcios Chief complaint: SVT/atrial tachycardia Narrative: 81-year-old gentleman who we have been consulted for supraventricular tachycardia/atrial tachycardia. Patient has been in the hospital for long time. He has sacral decubitus ulcer. He has been noted to have multiple runs of atrial tachycardia/SVT on the telemetry. This has been happening before. He is denying any symptoms. In particular denies chest pain or shortness of breath. Denying any palpitations. [facility] Past Medical History Medical History (Updated 07/26/22 @ 15:00 by JOSE GUADALUPE Natarajan) CAD (coronary artery disease) Diabetes mellitus with coincident hypertension Hyperlipidemia Hypertension Incomplete bladder emptying Functional capacity: uses cane/walker Family History Family History Mother Stroke Cancer Father No problems noted. Surgical History Surgical History H/O heart surgery Status post debridement Social History Social History Household Members: None Housing: House Do you presently have visiting nurse or other home services: No Alcohol intake: never Patient Tobacco Use Status: Former Tobacco user Tobacco use type: Cigarette Smoked in Last 30 Days: No e-Cigarette/Vaping Use: Never Used Second Hand Smoke Exposure: No Use of substances other than those prescribed or required for medical reasons: No Currently Displaying Signs/Symptoms of Drug Intoxication Withdrawal: No Have you been hit, kicked, punched, or otherwise hurt by someone within the past year? If so, by whom?: No Do you feel safe in your current relationship?: No Current Relationship Is there a partner from a previous relationship who is making you feel unsafe now?: No Are you made to feel afraid or neglected: No Are you DNR?: No Advance Directives: No Advance Directives Information Provided: No Advance Directives on File: No Do you have thoughts of harming others: None Do you have a plan to hurt others: No Plan Recently lost weight without trying: No How much weight loss: Not applicable Eating poorly because of decreased appetite: No Nutrition screen score: 0 Poor oral hygiene: Yes (multiple missing teeth, dentures) service: No Current occupational status: retired Cognitive needs: Yes (walker) Hearing needs: No Vision needs: Yes (glasses) Meds Allergies Allergy/AdvReac Type Severity Reaction Status Date / Time [id number] Reductase Allergy Mild Burning Verified 07/24/22 20:42 Inhibitor sensation [[id number]-[id number] Reductase Inhibitor] Active Medications: Current Medications Acetaminophen (Acetaminophen 325 Mg Tablet) 650 mg PO Q6H PRN PRN Reason: Pain, Mild (Pain Scale 1-3) Last Admin: 07/25/22 15:47 Dose: 650 mg Amiodarone HCl (Amiodarone Hcl 200 Mg Tablet) 400 mg PO BID [facility] Dextrose (Dextrose 50 % 25 Gm/50 Ml Syringe) 25 gm IVPUSH Q15M PRN; Protocol PRN Reason: per Hypoglycemia Standing Ord. Docusate Sodium (Docusate Sodium 100 Mg Capsule) 100 mg PO BID [facility] Last Admin: 07/26/22 09:02 Dose: 100 mg Ferrous Sulfate (Ferrous Sulfate 324 Mg Tablet.Dr) 324 mg PO BIDWM [facility] Last Admin: 07/26/22 09:02 Dose: 324 mg Finasteride (Finasteride 5 Mg Tablet) 5 mg PO DAILY [facility] Last Admin: 07/26/22 09:02 Dose: 5 mg Glucose (Glucose Gel 15 Gm Gel..Gram.) 15 gm PO Q15M PRN; Protocol PRN Reason: per Hypoglycemia Standing Ord. Insulin Glargine (Insulin Glargine,Hum.Rec.Anlog 100 Unit/Ml 10 Ml Vial) 20 unit SUBCUT DAILY@0730 [facility] Last Admin: 07/26/22 09:01 Dose: 20 unit Insulin Glargine (Insulin Glargine,Hum.Rec.Anlog 100 Unit/Ml 10 Ml Vial) 5 unit SUBCUT BEDTIME [facility] Last Admin: 07/25/22 20:24 Dose: 5 unit Insulin Human Lispro (Insulin Lispro 100 Unit/Ml 3 Ml Vial) 0 unit SUBCUT QIDACHS [facility]; Protocol Last Admin: 07/26/22 15:53 Dose: Not Given Lidocaine (Lidocaine 4 % Patch Adh..Patch) 1 patch TRANSDERMA DAILY [facility]; Protocol Last Admin: 07/26/22 09:26 Dose: Not Given Metoprolol Succinate (Metoprolol Succinate Er 100 Mg Tab.Er.24h) 100 mg PO DAILY [facility] Metoprolol Tartrate (Metoprolol Tartrate 50 Mg Tablet) 50 mg PO Q6H [facility]; Protocol Stop: 07/27/22 04:00 Last Admin: 07/26/22 14:08 Dose: 50 mg Morphine Sulfate (Morphine Sulfate 2 Mg/Ml Cartridge) 2 mg IVPUSH Q4H PRN; Protocol PRN Reason: Pain, Severe (Pain Scale 7-10) Last Admin: 07/26/22 05:58 Dose: 2 mg Ondansetron HCl (Ondansetron Hcl 4 Mg/2 Ml Vial) 4 mg IVPUSH Q8H PRN PRN Reason: Nausea and Vomiting Last Admin: 07/07/22 01:05 Dose: 4 mg Ondansetron HCl (Ondansetron Hcl 4 Mg/2 Ml Vial) 4 mg IVPUSH ONCE PRN PRN Reason: Nausea and Vomiting Ondansetron HCl (Ondansetron Hcl 4 Mg/2 Ml Vial) 4 mg IVPUSH ONCE PRN PRN Reason: Nausea and Vomiting Oxycodone HCl (Oxycodone Hcl Immed Release 5 Mg Tablet) 5 mg PO Q4H PRN PRN Reason: Pain, Mild (Pain Scale 1-3) Last Admin: 07/26/22 14:08 Dose: 5 mg Pharmacy Consult (Consult Rx Perform Med Rec) 1 each MISCELLANE ONCE PRN PRN Reason: Consult order Polyethylene Glycol (Polyethylene Glycol 3350 17 Gm Powd.Pack) 17 gm PO DAILY PRN PRN Reason: constipation Last Admin: 06/28/22 22:01 Dose: 17 gm Polyethylene Glycol (Polyethylene Glycol 3350 17 Gm Powd.Pack) 17 gm PO DAILY [facility] Last Admin: 07/26/22 09:27 Dose: Not Given Sodium Chloride (0.9 % Sodium Chloride Flush 3 Ml Syringe) 3 ml IVFLUSH QSHIFT [facility] Last Admin: 07/26/22 09:02 Dose: 3 ml Tamsulosin HCl (Tamsulosin Hcl 0.4 Mg Capsule) 0.8 mg PO DAILY [facility] Last Admin: 07/26/22 09:02 Dose: 0.8 mg Urea (Urea 15 Gm Powder) 30 gm PO DAILY [facility] Last Admin: 07/26/22 09:28 Dose: Not Given Vitamin D (Cholecalciferol (Vitamin D3) 25 Mcg Tablet) 50 mcg PO DAILY [facility] Last Admin: 07/26/22 09:02 Dose: 50 mcg Zinc Acetate/Diphenhydramine (Diphenhydramine Hcl 2 % Cream 28 Gm Tube) 1 appl TOPICAL TID PRN; Protocol PRN Reason: itching Home Medications Medication Instructions Recorded Confirmed Last Taken Type insulin human U-100 NPH-regulr 40 unit subcut DAILY@1300 06/14/22 06/14/22 Unknown History 70-30 mix 100 unit/mL subcutaneous susp insulin human U-100 NPH-regulr 60 unit subcut DAILY 06/14/22 06/14/22 Unknown History 70-30 mix 100 unit/mL subcutaneous susp Physical Exam Vital Signs: Vital Signs: Last Vital Signs Temp 98.0 F 07/26/22 15:41 Pulse 92 07/26/22 15:41 Resp 18 07/26/22 15:41 BP 143/64 H 07/26/22 15:41 Pulse Ox 99 07/26/22 15:41 O2 Del Method 07/26/22 15:41 O2 Flow Rate 2 07/19/22 07:33 BMI result Body Mass Index 26.6 GENERAL APPEARANCE: in no acute distress, ill-appearing. NECK: no carotid bruit, no jugular venous distention. SKIN: no suspicious lesions, warm and dry. HEART: no murmurs, regular rate and rhythm. LUNGS: clear to auscultation bilaterally. ABDOMEN: soft, nontender. EXTREMITIES: no edema. PERIPHERAL PULSES: equal. Objective Labs and Meds Result diagrams: 07/26/22 08:10 07/26/22 08:10 Lab results: Laboratory Results - last 24 hr 07/25/22 07/26/22 07/26/22 20:15 07:31 08:10 WBC 7.3 RBC 3.13 L Hgb 8.7 L Hct 27.4 L MCV 87.5 MCH 27.8 MCHC 31.8 RDW 15.9 Plt Count 197 MPV 8.6 L Absolute Nucleated RBC 0.000 Nucleated RBC % (auto) 0.0 Sodium Potassium Chloride Carbon Dioxide Anion Gap BUN Creatinine Estim Creat Clear Calc Estimated GFR POC Glucose 153 H 119 H Random Glucose Calcium Magnesium 07/26/22 07/26/22 07/26/22 08:10 11: 15:19 WBC RBC Hgb Hct MCV MCH MCHC RDW Plt Count MPV Absolute Nucleated RBC Nucleated RBC % (auto) Sodium 139 Potassium 3.9 Chloride 100 Carbon Dioxide 30 H Anion Gap 13 BUN 19 H Creatinine 0.55 Estim Creat Clear Calc 108.9 Estimated GFR > 60 POC Glucose 144 H 129 H Random Glucose 129 H Calcium 8.0 L Magnesium 1.8 Assessment and Plan (1) SVT (supraventricular tachycardia): Status: Acute Plan 81-year-old gentleman with supraventricular tachycardia. He is asymptomatic. Denies any chest pain or shortness of breath. He has been on beta-becki. I think with recurrent episodes and previous episode of atrial fibrillation amiodarone may be the best drug to use currently. Load him with 40 mg twice a day for 7 days and then put him on 200 mg daily. Given his age I would not give him high-dose metoprolol in addition to amiodarone and I think as we load him the metoprolol dose should be decreased. I would put him on Toprol-XL 100 mg from tomorrow. Thank you for allowing me to participate in the care of your patient. Please feel free to contact me if you have any questions. Time Spent With Patient Time: Total time managing care of this patient today ____ minutes. Procedures Date of Service Date of Service: 07/26/22
[2022-07-26] MEDS: Insulin Glargine,Hum.rec.anlog 100 UNIT/ML 10 ML VIAL SUBCUT (21:19)
[2022-07-26] MEDS: Amiodarone HCL 200 MG TABLET 400 MG PO (21:22)
[2022-07-27] VITALS: BP 119/56; PULSE 80; RESP 18; TEMP 36.6; O2SAT 97
[2022-07-27 04:00] VITALS: BP 100/53; PULSE 86; RESP 18; TEMP 36.7; O2SAT 98
[2022-07-27 07:30] VITALS: BP 119/58; PULSE 83; RESP 18; TEMP 37.1; O2SAT 96
[2022-07-27 07:37] LABS: Anion Gap 13 (12-20); Blood Urea Nitrogen 15 mg/dL (9-16); Calcium 7.7 mg/dL (8.4-10.2); Carbon Dioxide 28 mmol/L (22-29); Chloride 99 mmol/L (96-108); Creatinine Clr Calc Pharmacy 117.4; Estimated Glomerular Filt Rate > 60; Glucose Random 85 mg/dL (60-115); Potassium 3.8 mmol/L (3.3-5.1); Sodium 136 mmol/L (135-145)
[2022-07-27] MEDS: Insulin Glargine,Hum.rec.anlog 100 UNIT/ML 10 ML VIAL 20 UNIT SUBCUT (08:35)
[2022-07-27] MEDS: Docusate Sodium 100 MG CAPSULE PO ×2 (08:35→20:48)
[2022-07-27] MEDS: 0.9 % Sodium Chloride Flush 3 ML SYRINGE IVFLUSH ×3 (08:35→20:50)
[2022-07-27] MEDS: Amiodarone HCL 200 MG TABLET 400 MG PO ×2 (08:36→20:48)
[2022-07-27] MEDS: Ferrous Sulfate 324 MG TABLET.DR PO ×2 (08:36→17:06)
[2022-07-27] MEDS: Finasteride 5 MG TABLET PO (08:36)
[2022-07-27] MEDS: Cholecalciferol (Vitamin D3) 25 MCG TABLET 50 MCG PO (08:36)
[2022-07-27] MEDS: Tamsulosin HCL 0.4 MG CAPSULE 0.8 MG PO (08:36)
[2022-07-27] MEDS: Metoprolol Succinate ER 100 MG TAB.ER.24H PO (08:36)
--- NOTE | 2022-07-27 11:01 | HO.PM.IMPN ---
Subjective Subjective Date of Service: 07/27/22 Interval History: seen and examined this morning follow up for sacral wound feeling better Review of Systems Review of Systems: Yes all other systems are reviewed and are negative Constitutional Constitutional: Denies chills and Denies fever(s) ENT Ears, Nose, Mouth, and Throat: Denies dizziness Cardiovascular Cardiovascular: Denies chest pain, Denies palpitations and Denies dyspnea Respiratory Respiratory: Denies dyspnea Gastrointestinal Gastrointestinal: Denies abdominal pain Neurologic Neurologic: Denies dizziness Endocrine Endocrine: Denies palpitations Physical Exam Vital Signs: Vital Signs: Last Vital Signs Temp 98.8 F 07/27/22 07:30 Pulse 83 07/27/22 07:30 Resp 18 07/27/22 07:30 BP 119/58 L 07/27/22 07:30 Pulse Ox 96 07/27/22 07:30 O2 Del Method 07/27/22 07:30 O2 Flow Rate 2 07/19/22 07:33 BMI result Body Mass Index 26.6 Appearing in no acute distress lung sounds are clear to auscultation heart regular rate rhythm, clear S1, S2 positive bowel sounds, abdomen is soft, nontender neuro patient is alert x3, no focal deficits Objective Data Active Medications Acetaminophen (Acetaminophen 325 Mg Tablet) 650 mg PO Q6H PRN PRN Reason: Pain, Mild (Pain Scale 1-3) Last Admin: 07/25/22 15:47 Dose: 650 mg Documented By: JANINE Amiodarone HCl (Amiodarone Hcl 200 Mg Tablet) 400 mg PO BID [facility] Last Admin: 07/27/22 08:36 Dose: 400 mg Documented By: TONNY Dextrose (Dextrose 50 % 25 Gm/50 Ml Syringe) 25 gm IVPUSH Q15M PRN; Protocol PRN Reason: per Hypoglycemia Standing Ord. Docusate Sodium (Docusate Sodium 100 Mg Capsule) 100 mg PO BID [facility] Last Admin: 07/27/22 08:35 Dose: 100 mg Documented By: TONNY Ferrous Sulfate (Ferrous Sulfate 324 Mg Tablet.) 324 mg PO BIDWM [facility] Last Admin: 07/27/22 08:36 Dose: 324 mg Documented By: TONNY Finasteride (Finasteride 5 Mg Tablet) 5 mg PO DAILY [facility] Last Admin: 07/27/22 08:36 Dose: 5 mg Documented By: TONNY Glucose (Glucose Gel 15 Gm Gel..Gram.) 15 gm PO Q15M PRN; Protocol PRN Reason: per Hypoglycemia Standing Ord. Insulin Glargine (Insulin Glargine,Hum.Rec.Anlog 100 Unit/Ml 10 Ml Vial) 20 unit SUBCUT DAILY@0730 [facility] Last Admin: 07/27/22 08:35 Dose: 20 unit Documented By: TONNY Insulin Glargine (Insulin Glargine,Hum.Rec.Anlog 100 Unit/Ml 10 Ml Vial) 5 unit SUBCUT BEDTIME [facility] Last Admin: 07/26/22 21:19 Dose: 5 unit Documented By: ROMARISCinthya Insulin Human Lispro (Insulin Lispro 100 Unit/Ml 3 Ml Vial) 0 unit SUBCUT QIDACHS [facility]; Protocol Last Admin: 07/27/22 07:53 Dose: Not Given Documented By: TONNY Non-Admin Reason: No Insulin Coverage Lidocaine (Lidocaine 4 % Patch Adh..Patch) 1 patch TRANSDERMA DAILY [facility]; Protocol Last Admin: 07/27/22 08:41 Dose: Not Given Documented By: TONNY Non-Admin Reason: Patient Refused Metoprolol Succinate (Metoprolol Succinate Er 100 Mg Tab.Er.24h) 100 mg PO DAILY [facility] Last Admin: 07/27/22 08:36 Dose: 100 mg Documented By: TONNY Ondansetron HCl (Ondansetron Hcl 4 Mg/2 Ml Vial) 4 mg IVPUSH Q8H PRN PRN Reason: Nausea and Vomiting Last Admin: 07/07/22 01:05 Dose: 4 mg Documented By: MARIANN Ondansetron HCl (Ondansetron Hcl 4 Mg/2 Ml Vial) 4 mg IVPUSH ONCE PRN PRN Reason: Nausea and Vomiting Ondansetron HCl (Ondansetron Hcl 4 Mg/2 Ml Vial) 4 mg IVPUSH ONCE PRN PRN Reason: Nausea and Vomiting Oxycodone HCl (Oxycodone Hcl Immed Release 5 Mg Tablet) 5 mg PO Q4H PRN PRN Reason: Pain, Mild (Pain Scale 1-3) Last Admin: 07/26/22 14:08 Dose: 5 mg Documented By: TONNY Pharmacy Consult (Consult Rx Perform Med Rec) 1 each MISCELLANE ONCE PRN PRN Reason: Consult order Polyethylene Glycol (Polyethylene Glycol 3350 17 Gm Powd.Pack) 17 gm PO DAILY PRN PRN Reason: constipation Last Admin: 06/28/22 22:01 Dose: 17 gm Documented By: ADRIANA Polyethylene Glycol (Polyethylene Glycol 3350 17 Gm Powd.Pack) 17 gm PO DAILY [facility] Last Admin: 07/27/22 08:42 Dose: Not Given Documented By: TONNY Non-Admin Reason: diarhea Sodium Chloride (0.9 % Sodium Chloride Flush 3 Ml Syringe) 3 ml IVFLUSH QSHIFT [facility] Last Admin: 07/27/22 08:35 Dose: 3 ml Documented By: TONNY Tamsulosin HCl (Tamsulosin Hcl 0.4 Mg Capsule) 0.8 mg PO DAILY [facility] Last Admin: 07/27/22 08:36 Dose: 0.8 mg Documented By: TONNY Urea (Urea 15 Gm Powder) 30 gm PO DAILY [facility] Last Admin: 07/27/22 08:43 Dose: Not Given Documented By: TONNY Non-Admin Reason: Na wnl Vitamin D (Cholecalciferol (Vitamin D3) 25 Mcg Tablet) 50 mcg PO DAILY [facility] Last Admin: 07/27/22 08:36 Dose: 50 mcg Documented By: TONNY Zinc Acetate/Diphenhydramine (Diphenhydramine Hcl 2 % Cream 28 Gm Tube) 1 appl TOPICAL TID PRN; Protocol PRN Reason: itching Labs CBC & Chem 7: 07/26/22 08:10 07/27/22 06:11 Labs: Laboratory Results - last 24 hr 07/26/22 07/26/22 07/26/22 11:23 15:19 19:16 Anion Gap Estim Creat Clear Calc Estimated GFR POC Glucose 144 H 129 H 116 H Random Glucose Calcium 07/27/22 07/27/22 06:11 07:29 Anion Gap 13 Estim Creat Clear Calc 117.4 Estimated GFR > 60 POC Glucose 83 Random Glucose 85 Calcium 7.7 L Assessment and Plan (1) Stage 4 decubitus ulcer: Status: Acute (2) SVT (supraventricular tachycardia): Status: Acute Plan 74yo M with DM2, HTN, HLD, chronic venous stasis dermatitis presented with mechanical fall, admitted for hypoxia due to PNA Atrial flutter/fib with RVR intermittently LVEF >70% will convert lopressor to toprol xl starting tomorrow hold apixaban, resume as appropriate following debridement cardiology following episode of SVT vs atrial tachycardia am 07/26 HR improved with IV Lopressor seen by cardiology, recommended to start amiodorone 400 bid plan to transition lopressor to toprol xl in am blood pressure has remained stable. patient asymptomatic Sacral decubitus ulcer stage 4 s/p 07/08,07/17 debridement of sacral decubitus ulcer, including skin, dermis, subcutaneous tissue and muscle; operative findings of necrotic skin, subcutaneous tissue and muscle. Ulcer measured approximately 10 cm x 10 cm in diameter with a depth of 4 cm s/p wound vac placement 07/22/22 - removed 07/25 after it became soiled surgery following - had planned for further debridement in OR today but patient declined continue wet to dry dressings for now - will likely need further debridement Acute blood loss anemia blood loss at site of decub ulcer patient received 2 unit of packed RBC continue ferrous sulfate b.i.d. H/H stable Traumatic SAH CT brain 06/26 New small areas of extra-axial hemorrhage adjacent to the left posterior parietal lobe, bilateral occipital lobes and in the occipital horns of both lateral ventricles, repeat CT 06/28 unchanged seen by neuro - rec to hold AC for two weeks no headache, no dizziness No other complications Acute hypoxic respiratory failure due to PNA finished 10d of ABX back on room air Urinary retention failed voiding trial x2 continue tamsulosin and finasteride seen by urology, continue roberts upon discharge - outpatient urology follow up hyponatremia resolved continue urea cortisol, TSH wnl Mechanical fall difficulty ambulating; awaiting SNF placement generalized weakness 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 but not clinically NPH per Neurology acute/chronic hypoNa resolved,on fluid restriction change fluid restriction to 1800 mL incidental 1.3cm pancreatic lesions may reflect adjacent pancreatic cysts outpt MRI/MRCP DM2 continue Lantus, SSI HTN soft blood pressures losartan and hydralazine discontinued continue metoprolol HLD statin VTE ppx: SCDs, apixaban on hold attending Dr. Henry Full code Disposition. Discharge to [facility] facility when medically clear In my clinical judgment, the patient requires continued inpatient hospitalization for the following reasons: SNF placement and follow-up on stage IV decub ulcer with need for further debridement. management of atrial tachycardia vs SVT Time Spent With Patient Time: Total time managing care of this patient today ____ minutes. Quality Stroke Does the patient have a stroke diagnosis?: No VTE Prior VTE?: No VTE Risk Level:: Medical - moderate - high VTE Device Contraindication: Treatment Not Indicated VTE Drug Contraindication: N/A - Med Ordered
[2022-07-27] MEDS: oxyCODONE HCl Immed Release 5 MG TABLET PO ×3 (11:16→23:26)
[2022-07-27 12:00] VITALS: BP 108/52; PULSE 82; RESP 18; TEMP 37.1; O2SAT 95
[2022-07-27] MEDS: Insulin Lispro 100 UNIT/ML 3 ML VIAL SUBCUT ×3 (12:07→20:49)
[2022-07-27 16:00] VITALS: BP 105/49; PULSE 90; RESP 20; TEMP 36.5; O2SAT 92
[2022-07-27] MEDS: Insulin Glargine,Hum.rec.anlog 100 UNIT/ML 10 ML VIAL SUBCUT (20:49)
[2022-07-27 21:59] VITALS: BP 129/60; PULSE 82; RESP 20; TEMP 36.4; O2SAT 96
[2022-07-27] MEDS: Acetaminophen 325 MG TABLET 650 MG PO (23:27)
[2022-07-28] VITALS (8 sets, daily range): BP systolic 103–141; BP diastolic 51–79; PULSE 72–90; RESP 12–18; TEMP 36–37.3; O2SAT 95–100
[2022-07-28] MEDS: Amiodarone HCL 200 MG TABLET 400 MG PO ×2 (09:29→20:29)
[2022-07-28] MEDS: Finasteride 5 MG TABLET PO (09:29)
[2022-07-28] MEDS: Docusate Sodium 100 MG CAPSULE PO ×2 (09:29→20:29)
[2022-07-28] MEDS: Cholecalciferol (Vitamin D3) 25 MCG TABLET 50 MCG PO (09:29)
[2022-07-28] MEDS: Ferrous Sulfate 324 MG TABLET.DR PO ×2 (09:29→16:51)
[2022-07-28] MEDS: Tamsulosin HCL 0.4 MG CAPSULE 0.8 MG PO (09:29)
[2022-07-28] MEDS: Metoprolol Succinate ER 100 MG TAB.ER.24H PO (09:29)
[2022-07-28] MEDS: 0.9 % Sodium Chloride Flush 3 ML SYRINGE IVFLUSH ×3 (09:30→20:30)
[2022-07-28] MEDS: Insulin Glargine,Hum.rec.anlog 100 UNIT/ML 10 ML VIAL 20 UNIT SUBCUT (09:30)
[2022-07-28] MEDS: Urea 15 GM POWDER 30 GM PO (09:31)
--- NOTE | 2022-07-28 10:49 | HO.PM.IMPN ---
Subjective Subjective Date of Service: 07/28/22 Interval History: seen and examined this morning follow up for sacral wound awake, alert, oriented this morning no specific complaints Does agree to any further surgical intervention if needed for wound denies any pain Review of Systems Review of Systems: Yes all other systems are reviewed and are negative Constitutional Constitutional: Denies chills and Denies fever(s) Cardiovascular Cardiovascular: Denies chest pain, Denies palpitations and Denies dyspnea Respiratory Respiratory: Denies dyspnea Gastrointestinal Gastrointestinal: Denies abdominal pain, Denies nausea and Denies vomiting Endocrine Endocrine: Denies palpitations Physical Exam Vital Signs: Vital Signs: Last Vital Signs Temp 96.8 F 07/28/22 09:10 Pulse 88 07/28/22 09:10 Resp 18 07/28/22 09:10 BP 117/58 L 07/28/22 09:10 Pulse Ox 96 07/28/22 09:10 O2 Del Method 07/28/22 09:10 O2 Flow Rate 2 07/19/22 07:33 BMI result Body Mass Index 26.6 Const: General: comfortable, no acute distress, alert and awake Resp: Effort & Inspection: normal respiratory effort and able to speak in complete sentences Cardio: Rate: regular rate Heart sounds: no murmurs GI: Inspection: No distended Palpation (GI): Soft to palpation and nontender : Other: roberts in place Skin: Other: dressing covering sacral wound c/d/i Neuro: Other: grossly nonfocal Extrem: Other: able to move all 4 extremities spontaneously General: Yes no pedal edema Objective Data Active Medications Acetaminophen (Acetaminophen 325 Mg Tablet) 650 mg PO Q6H PRN PRN Reason: Pain, Mild (Pain Scale 1-3) Last Admin: 07/27/22 23:27 Dose: 650 mg Documented By: SU Amiodarone HCl (Amiodarone Hcl 200 Mg Tablet) 400 mg PO BID [facility] Last Admin: 07/28/22 09:29 Dose: 400 mg Documented By: ELVIRA Dextrose (Dextrose 50 % 25 Gm/50 Ml Syringe) 25 gm IVPUSH Q15M PRN; Protocol PRN Reason: per Hypoglycemia Standing Ord. Docusate Sodium (Docusate Sodium 100 Mg Capsule) 100 mg PO BID [facility] Last Admin: 07/28/22 09:29 Dose: 100 mg Documented By: ELVIRA Ferrous Sulfate (Ferrous Sulfate 324 Mg Tablet.Dr) 324 mg PO BIDWM [facility] Last Admin: 07/28/22 09:29 Dose: 324 mg Documented By: ELVIRA Finasteride (Finasteride 5 Mg Tablet) 5 mg PO DAILY [facility] Last Admin: 07/28/22 09:29 Dose: 5 mg Documented By: ELVIRA Glucose (Glucose Gel 15 Gm Gel..Gram.) 15 gm PO Q15M PRN; Protocol PRN Reason: per Hypoglycemia Standing Ord. Insulin Glargine (Insulin Glargine,Hum.Rec.Anlog 100 Unit/Ml 10 Ml Vial) 20 unit SUBCUT DAILY@0730 [facility] Last Admin: 07/28/22 09:30 Dose: 20 unit Documented By: ELVIRA Insulin Glargine (Insulin Glargine,Hum.Rec.Anlog 100 Unit/Ml 10 Ml Vial) 5 unit SUBCUT BEDTIME [facility] Last Admin: 07/27/22 20:49 Dose: 5 unit Documented By: SU Insulin Human Lispro (Insulin Lispro 100 Unit/Ml 3 Ml Vial) 0 unit SUBCUT QIDACHS [facility]; Protocol Last Admin: 07/28/22 07:53 Dose: Not Given Documented By: ELVIRA Non-Admin Reason: No Insulin Coverage Lidocaine (Lidocaine 4 % Patch Adh..Patch) 1 patch TRANSDERMA DAILY [facility]; Protocol Last Admin: 07/28/22 09:31 Dose: Not Given Documented By: ELVIRA Non-Admin Reason: Patient Refused Metoprolol Succinate (Metoprolol Succinate Er 100 Mg Tab.Er.24h) 100 mg PO DAILY [facility] Last Admin: 07/28/22 09:29 Dose: 100 mg Documented By: ELVIRA Ondansetron HCl (Ondansetron Hcl 4 Mg/2 Ml Vial) 4 mg IVPUSH Q8H PRN PRN Reason: Nausea and Vomiting Last Admin: 07/07/22 01:05 Dose: 4 mg Documented By: MARIANN Ondansetron HCl (Ondansetron Hcl 4 Mg/2 Ml Vial) 4 mg IVPUSH ONCE PRN PRN Reason: Nausea and Vomiting Ondansetron HCl (Ondansetron Hcl 4 Mg/2 Ml Vial) 4 mg IVPUSH ONCE PRN PRN Reason: Nausea and Vomiting Oxycodone HCl (Oxycodone Hcl Immed Release 5 Mg Tablet) 5 mg PO Q4H PRN PRN Reason: Pain, Mild (Pain Scale 1-3) Last Admin: 07/27/22 23:26 Dose: 5 mg Documented By: SU Pharmacy Consult (Consult Rx Perform Med Rec) 1 each MISCELLANE ONCE PRN PRN Reason: Consult order Polyethylene Glycol (Polyethylene Glycol 3350 17 Gm Powd.Pack) 17 gm PO DAILY PRN PRN Reason: constipation Last Admin: 06/28/22 22:01 Dose: 17 gm Documented By: ADRIANA Polyethylene Glycol (Polyethylene Glycol 3350 17 Gm Powd.Pack) 17 gm PO DAILY [facility] Last Admin: 07/28/22 09:30 Dose: Not Given Documented By: ELVIRA Non-Admin Reason: loose stools Sodium Chloride (0.9 % Sodium Chloride Flush 3 Ml Syringe) 3 ml IVFLUSH QSHIFT [facility] Last Admin: 07/28/22 09:30 Dose: 3 ml Documented By: ELVIRA Tamsulosin HCl (Tamsulosin Hcl 0.4 Mg Capsule) 0.8 mg PO DAILY [facility] Last Admin: 07/28/22 09:29 Dose: 0.8 mg Documented By: ELVIRA Urea (Urea 15 Gm Powder) 30 gm PO DAILY [facility] Last Admin: 07/28/22 09:31 Dose: 30 gm Documented By: ELVIRA Vitamin D (Cholecalciferol (Vitamin D3) 25 Mcg Tablet) 50 mcg PO DAILY [facility] Last Admin: 07/28/22 09:29 Dose: 50 mcg Documented By: ELVIRA Zinc Acetate/Diphenhydramine (Diphenhydramine Hcl 2 % Cream 28 Gm Tube) 1 appl TOPICAL TID PRN; Protocol PRN Reason: itching Labs CBC & Chem 7: 07/26/22 08:10 07/27/22 06:11 Labs: Laboratory Results - last 24 hr 07/27/22 07/27/22 07/27/22 11:42 16:05 19:27 POC Glucose 265 H 183 H 151 H 07/28/22 07:51 POC Glucose 96 Assessment and Plan (1) Urinary retention: Status: Acute (2) Stage 4 decubitus ulcer: Status: Acute Plan 74yo M with DM2, HTN, HLD, chronic venous stasis dermatitis presented with mechanical fall, admitted for hypoxia due to PNA Atrial flutter/fib with RVR intermittently LVEF >70% contiue toprol xl hold apixaban, resume as appropriate following debridement cardiology following episode of SVT vs atrial tachycardia 07/26 HR improved with IV Lopressor seen by cardiology, recommended to start amiodorone 400 bid continue toprol XL blood pressure has remained stable. patient asymptomatic Sacral decubitus ulcer stage 4 s/p 07/08,07/17 debridement of sacral decubitus ulcer, including skin, dermis, subcutaneous tissue and muscle; operative findings of necrotic skin, subcutaneous tissue and muscle. Ulcer measured approximately 10 cm x 10 cm in diameter with a depth of 4 cm s/p wound vac placement 07/22/22 - removed 07/25 after it became soiled surgery following - had planned for further debridement in OR 07/26 but patient declined at that time. he is agreeable at this time fur further debridement continue wet to dry dressings for now surgery following Acute blood loss anemia blood loss at site of decub ulcer patient received 2 unit of packed RBC continue ferrous sulfate b.i.d. H/H stable Traumatic SAH CT brain 06/26 New small areas of extra-axial hemorrhage adjacent to the left posterior parietal lobe, bilateral occipital lobes and in the occipital horns of both lateral ventricles, repeat CT 06/28 unchanged seen by neuro - rec to hold AC for two weeks no headache, no dizziness No other complications Acute hypoxic respiratory failure due to PNA finished 10d of ABX back on room air Urinary retention failed voiding trial x2 continue tamsulosin and finasteride seen by urology, continue roberts upon discharge - outpatient urology follow up hyponatremia resolved continue urea cortisol, TSH wnl Mechanical fall difficulty ambulating; awaiting SNF placement generalized weakness 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 but not clinically NPH per Neurology acute/chronic hypoNa resolved,on fluid restriction change fluid restriction to 1800 mL incidental 1.3cm pancreatic lesions may reflect adjacent pancreatic cysts outpt MRI/MRCP DM2 continue Lantus, SSI HTN soft blood pressures losartan and hydralazine discontinued continue metoprolol HLD statin VTE ppx: SCDs, apixaban on hold attending Dr. Freedman Full code [facility]position. [facility] when medically clear In my clinical judgment, the patient requires continued inpatient hospitalization for the following reasons: SNF placement and follow-up on stage IV decub ulcer with need for further debridement. management of atrial tachycardia vs SVT Time Spent With Patient Time: Total time managing care of this patient today ____ minutes. Quality Stroke Does the patient have a stroke diagnosis?: No VTE Prior VTE?: No VTE Risk Level:: Medical - moderate - high VTE Device Contraindication: Treatment Not Indicated VTE Drug Contraindication: N/A - Med Ordered
[2022-07-28] MEDS: oxyCODONE HCl Immed Release 5 MG TABLET PO ×2 (10:50→15:03)
[2022-07-28] MEDS: Acetaminophen 325 MG TABLET 650 MG PO (10:50)
[2022-07-28] MEDS: Insulin Lispro 100 UNIT/ML 3 ML VIAL SUBCUT ×3 (11:33→20:29)
[2022-07-28] MEDS: Insulin Glargine,Hum.rec.anlog 100 UNIT/ML 10 ML VIAL SUBCUT (20:29)
[2022-07-29] MEDS: oxyCODONE HCl Immed Release 5 MG TABLET PO ×3 (03:18→20:34)
[2022-07-29 03:32] VITALS: BP 110/53; PULSE 80; RESP 16; TEMP 36.5; O2SAT 96
[2022-07-29 08:00] VITALS: BP 136/63; PULSE 93; RESP 18; TEMP 37.1; O2SAT 95
[2022-07-29] MEDS: Lidocaine 4 % Patch ADH..PATCH 1 PATCH TRANSDERMA (08:14)
[2022-07-29] MEDS: Urea 15 GM POWDER 30 GM PO (08:14)
[2022-07-29] MEDS: polyethylene glycoL 3350 17 GM POWD.PACK PO (08:14)
[2022-07-29] MEDS: Amiodarone HCL 200 MG TABLET 400 MG PO ×2 (08:15→20:33)
[2022-07-29] MEDS: Tamsulosin HCL 0.4 MG CAPSULE 0.8 MG PO (08:15)
[2022-07-29] MEDS: Metoprolol Succinate ER 100 MG TAB.ER.24H PO (08:15)
[2022-07-29] MEDS: Finasteride 5 MG TABLET PO (08:15)
[2022-07-29] MEDS: 0.9 % Sodium Chloride Flush 3 ML SYRINGE IVFLUSH ×3 (08:15→20:35)
[2022-07-29] MEDS: Ferrous Sulfate 324 MG TABLET.DR PO ×2 (08:15→16:53)
[2022-07-29] MEDS: Insulin Glargine,Hum.rec.anlog 100 UNIT/ML 10 ML VIAL 20 UNIT SUBCUT (08:15)
[2022-07-29] MEDS: Cholecalciferol (Vitamin D3) 25 MCG TABLET 50 MCG PO (08:16)
[2022-07-29] MEDS: Docusate Sodium 100 MG CAPSULE PO ×2 (08:16→20:34)
--- NOTE | 2022-07-29 10:08 | MHC.CLN ---
F/U PT WITH INCREASED NUTRITION RISK R/T STAGE 4 PRESSURE INJURY. AGREES TO FURTHER TREATMENT OF WOUND IF NEEDED. RECENT PO INTAKE APPEARS IMPROVED, 50-100%. DIET RX: 2200DM. SUPPLEMENT TO OPTIMIZE NUTRITION FOR WOUND HEALING: ENSURE TID PLUS ANDREZ BID. PROVIDES ADDITIONAL 1210 KCALS, 65 G PROTEIN. MONITOR PO INTAKE CLOSELY.
--- NOTE | 2022-07-29 10:11 | HO.PM.IMPN ---
Subjective Subjective Date of Service: 07/29/22 Interval History: seen and examined this morning follow up for sacral wound awake, alert, oriented this morning no specific complaints Review of Systems Review of Systems: Yes all other systems are reviewed and are negative Constitutional Constitutional: Denies chills and Denies fever(s) Cardiovascular Cardiovascular: Denies chest pain, Denies palpitations and Denies dyspnea Respiratory Respiratory: Denies dyspnea Gastrointestinal Gastrointestinal: Denies abdominal pain, Denies nausea and Denies vomiting Endocrine Endocrine: Denies palpitations Physical Exam Vital Signs: Vital Signs: Last Vital Signs Temp 98.8 F 07/29/22 08:00 Pulse 93 07/29/22 08:00 Resp 18 07/29/22 08:00 BP 136/63 07/29/22 08:00 Pulse Ox 95 07/29/22 08:00 O2 Del Method 07/29/22 08:00 O2 Flow Rate 2 07/19/22 07:33 BMI result Body Mass Index 26.6 Appearing in no acute distress lung sounds are clear to auscultation heart regular rate rhythm, clear S1, S2 positive bowel sounds, abdomen is soft, nontender neuro patient is alert x3, no focal deficits Objective Data Active Medications Acetaminophen (Acetaminophen 325 Mg Tablet) 650 mg PO Q6H PRN PRN Reason: Pain, Mild (Pain Scale 1-3) Last Admin: 07/28/22 10:50 Dose: 650 mg Documented By: ELVIRA Amiodarone HCl (Amiodarone Hcl 200 Mg Tablet) 400 mg PO BID [facility] Last Admin: 07/29/22 08:15 Dose: 400 mg Documented By: RIC Dextrose (Dextrose 50 % 25 Gm/50 Ml Syringe) 25 gm IVPUSH Q15M PRN; Protocol PRN Reason: per Hypoglycemia Standing Ord. Docusate Sodium (Docusate Sodium 100 Mg Capsule) 100 mg PO BID [facility] Last Admin: 07/29/22 08:16 Dose: 100 mg Documented By: RIC Ferrous Sulfate (Ferrous Sulfate 324 Mg Tablet.Dr) 324 mg PO BIDWM [facility] Last Admin: 07/29/22 08:15 Dose: 324 mg Documented By: RIC Finasteride (Finasteride 5 Mg Tablet) 5 mg PO DAILY [facility] Last Admin: 07/29/22 08:15 Dose: 5 mg Documented By: RIC Glucose (Glucose Gel 15 Gm Gel..Gram.) 15 gm PO Q15M PRN; Protocol PRN Reason: per Hypoglycemia Standing Ord. Insulin Glargine (Insulin Glargine,Hum.Rec.Anlog 100 Unit/Ml 10 Ml Vial) 20 unit SUBCUT DAILY@0730 [facility] Last Admin: 07/29/22 08:15 Dose: 20 unit Documented By: RIC Insulin Glargine (Insulin Glargine,Hum.Rec.Anlog 100 Unit/Ml 10 Ml Vial) 5 unit SUBCUT BEDTIME [facility] Last Admin: 07/28/22 20:29 Dose: 5 unit Documented By: JANICE Insulin Human Lispro (Insulin Lispro 100 Unit/Ml 3 Ml Vial) 0 unit SUBCUT QIDACHS [facility]; Protocol Last Admin: 07/29/22 08:05 Dose: Not Given Documented By: RIC Non-Admin Reason: No Insulin Coverage Lidocaine (Lidocaine 4 % Patch Adh..Patch) 1 patch TRANSDERMA DAILY [facility]; Protocol Last Admin: 07/29/22 08:14 Dose: 1 patch Documented By: RIC Metoprolol Succinate (Metoprolol Succinate Er 100 Mg Tab.Er.24h) 100 mg PO DAILY [facility] Last Admin: 07/29/22 08:15 Dose: 100 mg Documented By: RIC Ondansetron HCl (Ondansetron Hcl 4 Mg/2 Ml Vial) 4 mg IVPUSH Q8H PRN PRN Reason: Nausea and Vomiting Last Admin: 07/07/22 01:05 Dose: 4 mg Documented By: MARIANN Ondansetron HCl (Ondansetron Hcl 4 Mg/2 Ml Vial) 4 mg IVPUSH ONCE PRN PRN Reason: Nausea and Vomiting Ondansetron HCl (Ondansetron Hcl 4 Mg/2 Ml Vial) 4 mg IVPUSH ONCE PRN PRN Reason: Nausea and Vomiting Oxycodone HCl (Oxycodone Hcl Immed Release 5 Mg Tablet) 5 mg PO Q4H PRN PRN Reason: Pain, Mild (Pain Scale 1-3) Last Admin: 07/29/22 03:18 Dose: 5 mg Documented By: JANICE Pharmacy Consult (Consult Rx Perform Med Rec) 1 each MISCELLANE ONCE PRN PRN Reason: Consult order Polyethylene Glycol (Polyethylene Glycol 3350 17 Gm Powd.Pack) 17 gm PO DAILY PRN PRN Reason: constipation Last Admin: 06/28/22 22:01 Dose: 17 gm Documented By: ADRIANA Polyethylene Glycol (Polyethylene Glycol 3350 17 Gm Powd.Pack) 17 gm PO DAILY [facility] Last Admin: 07/29/22 08:14 Dose: 17 gm Documented By: RIC Sodium Chloride (0.9 % Sodium Chloride Flush 3 Ml Syringe) 3 ml IVFLUSH QSHIFT [facility] Last Admin: 07/29/22 08:15 Dose: 3 ml Documented By: RIC Tamsulosin HCl (Tamsulosin Hcl 0.4 Mg Capsule) 0.8 mg PO DAILY [facility] Last Admin: 07/29/22 08:15 Dose: 0.8 mg Documented By: RIC Urea (Urea 15 Gm Powder) 30 gm PO DAILY [facility] Last Admin: 07/29/22 08:14 Dose: 30 gm Documented By: RIC Vitamin D (Cholecalciferol (Vitamin D3) 25 Mcg Tablet) 50 mcg PO DAILY [facility] Last Admin: 07/29/22 08:16 Dose: 50 mcg Documented By: RIC Zinc Acetate/Diphenhydramine (Diphenhydramine Hcl 2 % Cream 28 Gm Tube) 1 appl TOPICAL TID PRN; Protocol PRN Reason: itching Labs CBC & Chem 7: 07/26/22 08:10 07/27/22 06:11 Labs: Laboratory Results - last 24 hr 07/28/22 07/28/22 07/28/22 11:08 16:15 19:51 POC Glucose 220 H 339 H 296 H 07/29/22 07:27 POC Glucose 136 H Assessment and Plan (1) Urinary retention: Status: Acute (2) Stage 4 decubitus ulcer: Status: Acute Plan 74yo M with DM2, HTN, HLD, chronic venous stasis dermatitis presented with mechanical fall, admitted for hypoxia due to PNA Atrial flutter/fib with RVR intermittently LVEF >70% continue toprol xl hold apixaban, resume as appropriate following debridement cardiology following episode of SVT vs atrial tachycardia 07/26 HR improved with IV Lopressor seen by cardiology, recommended to start amiodorone 400 bid, stop on 08/07/21 and start 200mg daily continue toprol XL blood pressure has remained stable. patient asymptomatic Sacral decubitus ulcer stage 4 s/p 07/08,07/17 debridement of sacral decubitus ulcer, including skin, dermis, subcutaneous tissue and muscle; operative findings of necrotic skin, subcutaneous tissue and muscle. Ulcer measured approximately 10 cm x 10 cm in diameter with a depth of 4 cm s/p wound vac placement 07/22/22 - removed 07/25 after it became soiled surgery following - had planned for further debridement in OR 07/26 but patient declined at that time. he is agreeable at this time fur further debridement continue wet to dry dressings for now surgery following Acute blood loss anemia blood loss at site of decub ulcer patient received 2 unit of packed RBC continue ferrous sulfate b.i.d. H/H stable Traumatic SAH CT brain 06/26 New small areas of extra-axial hemorrhage adjacent to the left posterior parietal lobe, bilateral occipital lobes and in the occipital horns of both lateral ventricles, repeat CT 06/28 unchanged seen by neuro - rec to hold AC for two weeks no headache, no dizziness No other complications Acute hypoxic respiratory failure due to PNA finished 10d of ABX back on room air Urinary retention failed voiding trial x2 continue tamsulosin and finasteride seen by urology, continue roberts upon discharge - outpatient urology follow up hyponatremia resolved continue urea cortisol, TSH wnl Mechanical fall difficulty ambulating; awaiting SNF placement generalized weakness 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 but not clinically NPH per Neurology acute/chronic hypoNa resolved,on fluid restriction change fluid restriction to 1800 mL incidental 1.3cm pancreatic lesions may reflect adjacent pancreatic cysts outpt MRI/MRCP DM2 continue Lantus, SSI HTN soft blood pressures losartan and hydralazine discontinued continue metoprolol HLD statin VTE ppx: SCDs, apixaban on hold attending Dr. Freedman Full code Disposition. Discharge to senior care facility when medically clear In my clinical judgment, the patient requires continued inpatient hospitalization for the following reasons: SNF placement and follow-up on stage IV decub ulcer with need for further debridement. management of atrial tachycardia vs SVT Time Spent With Patient Time: Total time managing care of this patient today ____ minutes. Quality Stroke Does the patient have a stroke diagnosis?: No VTE Prior VTE?: No VTE Risk Level:: Medical - moderate - high VTE Device Contraindication: Treatment Not Indicated VTE Drug Contraindication: N/A - Med Ordered
[2022-07-29] MEDS: Acetaminophen 325 MG TABLET 650 MG PO (10:48)
[2022-07-29 11:30] VITALS: BP 124/56; PULSE 85; RESP 17; TEMP 36.8; O2SAT 97
[2022-07-29] MEDS: Insulin Lispro 100 UNIT/ML 3 ML VIAL SUBCUT ×3 (11:45→20:34)
[2022-07-29 15:32] VITALS: BP 125/60; PULSE 78; RESP 19; TEMP 36.4; O2SAT 96
[2022-07-29 18:51] VITALS: BP 109/51; PULSE 73; RESP 18; TEMP 36.7; O2SAT 98
[2022-07-29] MEDS: Insulin Glargine,Hum.rec.anlog 100 UNIT/ML 10 ML VIAL SUBCUT (20:34)
[2022-07-29 23:42] VITALS: BP 123/60; PULSE 74; RESP 16; TEMP 36.2; O2SAT 99
[2022-07-30 03:08] VITALS: BP 111/56; PULSE 82; RESP 16; TEMP 36.1; O2SAT 98
[2022-07-30 07:16] VITALS: BP 120/59; PULSE 83; RESP 16; TEMP 36.8; O2SAT 96
--- NOTE | 2022-07-30 08:07 | P.PNGS_ITS ---
Subjective Subjective Date of Service: 07/30/22 Interval history: He is very sore all over and at ulcer site and wants pain medicine. He reports we do dressing changes everyday and thats all he will allow. Physical Exam Vital Signs: Vital Signs: Last Vital Signs Temp 98.3 F 07/30/22 07:16 Pulse 83 07/30/22 07:16 Resp 16 07/30/22 07:16 BP 120/59 L 07/30/22 07:16 Pulse Ox 96 07/30/22 07:16 O2 Del Method 07/30/22 07:16 O2 Flow Rate 2 07/19/22 07:33 BMI result Body Mass Index 26.6 Const: General: comfortable and no acute distress Resp: Effort & Inspection: normal respiratory effort Back/Spine/Pelvis: Other: sacral ulcer with slough and necrosis at wound base of superior aspect, granulation at superior aspect, wound edges are erythematous and becoming macerated with some surrounding superificial skin breakdown Extrem: General: No no pedal edema Objective Data Active Medications Acetaminophen (Acetaminophen 325 Mg Tablet) 650 mg PO Q6H PRN PRN Reason: Pain, Mild (Pain Scale 1-3) Last Admin: 07/29/22 10:48 Dose: 650 mg Documented By: RIC Amiodarone HCl (Amiodarone Hcl 200 Mg Tablet) 400 mg PO BID [facility] Stop: 08/07/22 10:10 Last Admin: 07/29/22 20:33 Dose: 400 mg Documented By: TOY Dextrose (Dextrose 50 % 25 Gm/50 Ml Syringe) 25 gm IVPUSH Q15M PRN; Protocol PRN Reason: per Hypoglycemia Standing Ord. Docusate Sodium (Docusate Sodium 100 Mg Capsule) 100 mg PO BID [facility] Last Admin: 07/29/22 20:34 Dose: 100 mg Documented By: TOY Ferrous Sulfate (Ferrous Sulfate 324 Mg Tablet.Dr) 324 mg PO BIDWM [facility] Last Admin: 07/29/22 16:53 Dose: 324 mg Documented By: RIC Finasteride (Finasteride 5 Mg Tablet) 5 mg PO DAILY [facility] Last Admin: 07/29/22 08:15 Dose: 5 mg Documented By: RIC Glucose (Glucose Gel 15 Gm Gel..Gram.) 15 gm PO Q15M PRN; Protocol PRN Reason: per Hypoglycemia Standing Ord. Insulin Glargine (Insulin Glargine,Hum.Rec.Anlog 100 Unit/Ml 10 Ml Vial) 20 unit SUBCUT DAILY@0730 [facility] Last Admin: 07/29/22 08:15 Dose: 20 unit Documented By: RIC Insulin Glargine (Insulin Glargine,Hum.Rec.Anlog 100 Unit/Ml 10 Ml Vial) 5 unit SUBCUT BEDTIME [facility] Last Admin: 07/29/22 20:34 Dose: 5 unit Documented By: TOY Insulin Human Lispro (Insulin Lispro 100 Unit/Ml 3 Ml Vial) 0 unit SUBCUT QIDACHS [facility]; Protocol Last Admin: 07/29/22 20:34 Dose: 8 unit Documented By: TOY Lidocaine (Lidocaine 4 % Patch Adh..Patch) 1 patch TRANSDERMA DAILY [facility]; Pro tocol Last Admin: 07/29/22 08:14 Dose: 1 patch Documented By: RIC Metoprolol Succinate (Metoprolol Succinate Er 100 Mg Tab.Er.24h) 100 mg PO DAILY [facility] Last Admin: 07/29/22 08:15 Dose: 100 mg Documented By: RIC Ondansetron HCl (Ondansetron Hcl 4 Mg/2 Ml Vial) 4 mg IVPUSH Q8H PRN PRN Reason: Nausea and Vomiting Last Admin: 07/07/22 01:05 Dose: 4 mg Documented By: MARIANN Ondansetron HCl (Ondansetron Hcl 4 Mg/2 Ml Vial) 4 mg IVPUSH ONCE PRN PRN Reason: Nausea and Vomiting Ondansetron HCl (Ondansetron Hcl 4 Mg/2 Ml Vial) 4 mg IVPUSH ONCE PRN PRN Reason: Nausea and Vomiting Oxycodone HCl (Oxycodone Hcl Immed Release 5 Mg Tablet) 5 mg PO Q4H PRN PRN Reason: Pain, Mild (Pain Scale 1-3) Last Admin: 07/29/22 20:34 Dose: 5 mg Documented By: TOY Pharmacy Consult (Consult Rx Perform Med Rec) 1 each MISCELLANE ONCE PRN PRN Reason: Consult order Polyethylene Glycol (Polyethylene Glycol 3350 17 Gm Powd.Pack) 17 gm PO DAILY PRN PRN Reason: constipation Last Admin: 06/28/22 22:01 Dose: 17 gm Documented By: ADRIANA Polyethylene Glycol (Polyethylene Glycol 3350 17 Gm Powd.Pack) 17 gm PO DAILY [facility] Last Admin: 07/29/22 08:14 Dose: 17 gm Documented By: RIC Sodium Chloride (0.9 % Sodium Chloride Flush 3 Ml Syringe) 3 ml IVFLUSH QSHIFT [facility] Last Admin: 07/29/22 20:35 Dose: 3 ml Documented By: TOY Tamsulosin HCl (Tamsulosin Hcl 0.4 Mg Capsule) 0.8 mg PO DAILY [facility] Last Admin: 07/29/22 08:15 Dose: 0.8 mg Documented By: RIC Urea (Urea 15 Gm Powder) 30 gm PO DAILY [facility] Last Admin: 07/29/22 08:14 Dose: 30 gm Documented By: RIC Vitamin D (Cholecalciferol (Vitamin D3) 25 Mcg Tablet) 50 mcg PO DAILY [facility] Last Admin: 07/29/22 08:16 Dose: 50 mcg Documented By: RIC Zinc Acetate/Diphenhydramine (Diphenhydramine Hcl 2 % Cream 28 Gm Tube) 1 appl TOPICAL TID PRN; Protocol PRN Reason: itching Labs CBC & Chem 7: 07/26/22 08:10 07/27/22 06:11 Labs: Laboratory Results - last 24 hr 07/29/22 07/29/22 07/29/22 11:07 15:35 18:54 POC Glucose 179 H 223 H 299 H Procedures Date of Service Date of Service: 07/30/22 Progress Note: A&P Assessment and plan (1) Stage 4 decubitus ulcer: Status: Acute Plan 81 year old male admitted for hypoxia and respiratory failure following a fall found to have a sacral decubitus ulcer requiring multiple debridements. Wound vac removed last week, has been having wet to dry dressing changes BID. Wound has persistent necrosis and slough and patient continues to refuse further debridement. He states we do something everyday and thats enough . It was di scussed that this is just the dressing changes and the wound will not heal without further debridement to remove the tissue. He continues to refuse. Will begin wet to dry dressings with dakins solution to be changed BID. Continue supportive management with air loss bed, nutritional support. Time Spent With Patient Time: Total time managing care of this patient today ____ minutes. Quality Stroke Does the patient have a stroke diagnosis?: No VTE Prior VTE?: No VTE Risk Level:: Medical - moderate - high VTE Device Contraindication: Treatment Not Indicated VTE Drug Contraindication: N/A - Med Ordered
[2022-07-30 08:15] LABS: Glucose, Whole Blood 120 mg/dL (60-115)
[2022-07-30] MEDS: Acetaminophen 325 MG TABLET 650 MG PO (08:32)
[2022-07-30] MEDS: Cholecalciferol (Vitamin D3) 25 MCG TABLET 50 MCG PO (08:32)
[2022-07-30] MEDS: Finasteride 5 MG TABLET PO (08:32)
[2022-07-30] MEDS: Docusate Sodium 100 MG CAPSULE PO ×2 (08:32→21:00)
[2022-07-30] MEDS: oxyCODONE HCl Immed Release 5 MG TABLET PO (08:32)
[2022-07-30] MEDS: Tamsulosin HCL 0.4 MG CAPSULE 0.8 MG PO (08:32)
[2022-07-30] MEDS: Metoprolol Succinate ER 100 MG TAB.ER.24H PO (08:32)
[2022-07-30] MEDS: Lidocaine 4 % Patch ADH..PATCH 1 PATCH TRANSDERMA (08:32)
[2022-07-30] MEDS: polyethylene glycoL 3350 17 GM POWD.PACK PO (08:32)
[2022-07-30] MEDS: Amiodarone HCL 200 MG TABLET 400 MG PO ×2 (08:33→21:00)
[2022-07-30] MEDS: Urea 15 GM POWDER 30 GM PO (08:33)
[2022-07-30] MEDS: 0.9 % Sodium Chloride Flush 3 ML SYRINGE IVFLUSH ×3 (08:33→21:01)
[2022-07-30] MEDS: Ferrous Sulfate 324 MG TABLET.DR PO ×2 (08:33→16:46)
[2022-07-30] MEDS: Insulin Glargine,Hum.rec.anlog 100 UNIT/ML 10 ML VIAL 20 UNIT SUBCUT (08:33)
--- NOTE | 2022-07-30 08:52 | HO.PM.IMPN ---
Subjective Subjective Date of Service: 07/30/22 Interval History: seen and examined this morning follow up for sacral wound awake, alert, oriented this morning no specific complaints Review of Systems Review of Systems: Yes all other systems are reviewed and are negative Constitutional Constitutional: Denies chills and Denies fever(s) Cardiovascular Cardiovascular: Denies chest pain, Denies palpitations and Denies dyspnea Respiratory Respiratory: Denies dyspnea Gastrointestinal Gastrointestinal: Denies abdominal pain, Denies nausea and Denies vomiting Endocrine Endocrine: Denies palpitations Physical Exam Vital Signs: Vital Signs: Last Vital Signs Temp 98.3 F 07/30/22 07:16 Pulse 83 07/30/22 07:16 Resp 16 07/30/22 07:16 BP 120/59 L 07/30/22 07:16 Pulse Ox 96 07/30/22 07:16 O2 Del Method 07/30/22 07:16 O2 Flow Rate 2 07/19/22 07:33 BMI result Body Mass Index 26.6 Appearing in no acute distress lung sounds are clear to auscultation heart regular rate rhythm, clear S1, S2 positive bowel sounds, abdomen is soft, nontender neuro patient is alert x3, no focal deficits Unstageable sacral wound Objective Data Active Medications Acetaminophen (Acetaminophen 325 Mg Tablet) 650 mg PO Q6H PRN PRN Reason: Pain, Mild (Pain Scale 1-3) Last Admin: 07/30/22 08:32 Dose: 650 mg Documented By: COTEMA Amiodarone HCl (Amiodarone Hcl 200 Mg Tablet) 400 mg PO BID [facility] Stop: 08/07/22 10:10 Last Admin: 07/30/22 08:33 Dose: 400 mg Documented By: DALEEMA Dextrose (Dextrose 50 % 25 Gm/50 Ml Syringe) 25 gm IVPUSH Q15M PRN; Protocol PRN Reason: per Hypoglycemia Standing Ord. Docusate Sodium (Docusate Sodium 100 Mg Capsule) 100 mg PO BID [facility] Last Admin: 07/30/22 08:32 Dose: 100 mg Documented By: COTEMA Ferrous Sulfate (Ferrous Sulfate 324 Mg Tablet.) 324 mg PO BIDWM [facility] Last Admin: 07/30/22 08:33 Dose: 324 mg Documented By: COTEMA Finasteride (Finasteride 5 Mg Tablet) 5 mg PO DAILY [facility] Last Admin: 07/30/22 08:32 Dose: 5 mg Documented By: ANA CRISTINA Glucose (Glucose Gel 15 Gm Gel..Gram.) 15 gm PO Q15M PRN; Protocol PRN Reason: per Hypoglycemia Standing Ord. Insulin Glargine (Insulin Glargine,Hum.Rec.Anlog 100 Unit/Ml 10 Ml Vial) 20 unit SUBCUT DAILY@0730 [facility] Last Admin: 07/30/22 08:33 Dose: 20 unit Documented By: ANA CRISTINA Insulin Glargine (Insulin Glargine,Hum.Rec.Anlog 100 Unit/Ml 10 Ml Vial) 5 unit SUBCUT BEDTIME [facility] Last Admin: 07/29/22 20:34 Dose: 5 unit Documented By: TOY Insulin Human Lispro (Insulin Lispro 100 Unit/Ml 3 Ml Vial) 0 unit SUBCUT QIDACHS [facility]; Protocol Last Admin: 07/30/22 08:20 Dose: Not Given Documented By: ANA CRISTINA Non-Admin Reason: No Insulin Coverage Lidocaine (Lidocaine 4 % Patch Adh..Patch) 1 patch TRANSDERMA DAILY [facility]; Protocol Last Admin: 07/30/22 08:32 Dose: 1 patch Documented By: ANA CRISTINA Metoprolol Succinate (Metoprolol Succinate Er 100 Mg Tab.Er.24h) 100 mg PO DAILY [facility] Last Admin: 07/30/22 08:32 Dose: 100 mg Documented By: ANA RCISTINA Ondansetron HCl (Ondansetron Hcl 4 Mg/2 Ml Vial) 4 mg IVPUSH Q8H PRN PRN Reason: Nausea and Vomiting Last Admin: 07/07/22 01:05 Dose: 4 mg Documented By: MARIANN Ondansetron HCl (Ondansetron Hcl 4 Mg/2 Ml Vial) 4 mg IVPUSH ONCE PRN PRN Reason: Nausea and Vomiting Ondansetron HCl (Ondansetron Hcl 4 Mg/2 Ml Vial) 4 mg IVPUSH ONCE PRN PRN Reason: Nausea and Vomiting Oxycodone HCl (Oxycodone Hcl Immed Release 5 Mg Tablet) 5 mg PO Q4H PRN PRN Reason: Pain, Mild (Pain Scale 1-3) Last Admin: 07/30/22 08:32 Dose: 5 mg Documented By: ANA CRISTINA Pharmacy Consult (Consult Rx Perform Med Rec) 1 each MISCELLANE ONCE PRN PRN Reason: Consult order Polyethylene Glycol (Polyethylene Glycol 3350 17 Gm Powd.Pack) 17 gm PO DAILY PRN PRN Reason: constipation Last Admin: 06/28/22 22:01 Dose: 17 gm Documented By: ADRIANA Polyethylene Glycol (Polyethylene Glycol 3350 17 Gm Powd.Pack) 17 gm PO DAILY [facility] Last Admin: 07/30/22 08:32 Dose: 17 gm Documented By: DALEEMA Sodium Chloride (0.9 % Sodium Chloride Flush 3 Ml Syringe) 3 ml IVFLUSH QSHIFT [facility] Last Admin: 07/30/22 08:33 Dose: 3 ml Documented By: COTEMA Sodium Hypochlorite (Sodium Hypochlorite 0.25% 473 Ml Solution) 1 appl TOPICAL BID [facility] Tamsulosin HCl (Tamsulosin Hcl 0.4 Mg Capsule) 0.8 mg PO DAILY [facility] Last Admin: 07/30/22 08:32 Dose: 0.8 mg Documented By: COTEMA Urea (Urea 15 Gm Powder) 30 gm PO DAILY [facility] Last Admin: 07/30/22 08:33 Dose: 30 gm Documented By: ANA CRITSINA Vitamin D (Cholecalciferol (Vitamin D3) 25 Mcg Tablet) 50 mcg PO DAILY [facility] Last Admin: 07/30/22 08:32 Dose: 50 mcg Documented By: DALEEMA Zinc Acetate/Diphenhydramine (Diphenhydramine Hcl 2 % Cream 28 Gm Tube) 1 appl TOPICAL TID PRN; Protocol PRN Reason: itching Labs CBC & Chem 7: 07/26/22 08:10 07/27/22 06:11 Labs: Laboratory Results - last 24 hr 07/29/22 07/29/22 07/29/22 11:07 15:35 18:54 POC Glucose 179 H 223 H 299 H 07/30/22 07:15 POC Glucose 120 H Assessment and Plan (1) Urinary retention: Status: Acute (2) Stage 4 decubitus ulcer: Status: Acute Plan 74yo M with DM2, HTN, HLD, chronic venous stasis dermatitis presented with mechanical fall, admitted for hypoxia due to PNA Atrial flutter/fib with RVR intermittently LVEF >70% continue toprol xl hold apixaban, resume as appropriate following debridement cardiology following episode of SVT vs atrial tachycardia 12/23 HR improved with IV Lopressor seen by cardiology, recommended to start amiodorone 400 bid, stop on 08/07/21 and start 200mg daily continue toprol XL blood pressure has remained stable. patient asymptomatic Sacral decubitus ulcer. Unstageable s/p 07/08,07/17 debridement of sacral decubitus ulcer, including skin, dermis, subcutaneous tissue and muscle; operative findings of necrotic skin, subcutaneous tissue and muscle. Ulcer measured approximately 10 cm x 10 cm in diameter with a depth of 4 cm s/p wound vac placement 07/22/22 - removed 07/25 after it became soiled surgery following - had planned for further debridement but patient continues to decline continue wet to dry dressings for now Acute blood loss anemia blood loss at site of decub ulcer patient received 2 unit of packed RBC continue ferrous sulfate b.i.d. H/H stable Traumatic SAH CT brain 06/26 New small areas of extra-axial hemorrhage adjacent to the left posterior parietal lobe, bilateral occipital lobes and in the occipital horns of both lateral ventricles, repeat CT 06/28 unchanged seen by neuro - rec to hold AC for two weeks no headache, no dizziness No other complications Acute hypoxic respiratory failure due to PNA finished 10d of ABX back on room air Urinary retention failed voiding trial x2 continue tamsulosin and finasteride seen by urology, continue roberts upon discharge - outpatient urology follow up hyponatremia resolved continue urea cortisol, TSH wnl Mechanical fall difficulty ambulating; awaiting SNF placement generalized weakness 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 but not clinically NPH per Neurology acute/chronic hypoNa resolved,on fluid restriction change fluid restriction to 1800 mL incidental 1.3cm pancreatic lesions may reflect adjacent pancreatic cysts outpt MRI/MRCP DM2 continue Lantus, SSI HTN soft blood pressures losartan and hydralazine discontinued continue metoprolol HLD statin VTE ppx: SCDs, apixaban on hold attending Dr. Contreras Full code Disposition. Discharge to halfway facility when medically clear In my clinical judgment, the patient requires continued inpatient hospitalization for the following reasons: SNF placement and follow-up on stage IV decub ulcer with need for further debridement. management of atrial tachycardia vs SVT Time Spent With Patient Time: Total time managing care of this patient today ____ minutes. Quality Stroke Does the patient have a stroke diagnosis?: No VTE Prior VTE?: No VTE Risk Level:: Medical - moderate - high VTE Device Contraindication: Treatment Not Indicated VTE Drug Contraindication: N/A - Med Ordered
[2022-07-30 10:55] VITALS: BP 118/54; PULSE 87; RESP 20; TEMP 36.6; O2SAT 94
[2022-07-30 11:17] LABS: Glucose, Whole Blood 284 mg/dL (60-115)
[2022-07-30] MEDS: Insulin Lispro 100 UNIT/ML 3 ML VIAL SUBCUT ×3 (11:48→21:00)
--- NOTE | 2022-07-30 15:07 | MHC.CM.PN ---
PER [employer] PT'S MH STUART COMPLETED AND FAXED IN W/LETTER FROM [employer], CM WILL EXPAND BED SEARCH ADN CONT TO FOLLOW D/C NEEDS.
[2022-07-30 15:28] VITALS: BP 91/54; PULSE 77; RESP 16; TEMP 36.7; O2SAT 96
[2022-07-30 16:25] LABS: Glucose, Whole Blood 246 mg/dL (60-115)
[2022-07-30 20:00] VITALS: BP 110/56; PULSE 81; RESP 18; TEMP 36.6; O2SAT 97
[2022-07-30 20:48] LABS: Glucose, Whole Blood 314 mg/dL (60-115)
[2022-07-30] MEDS: Insulin Glargine,Hum.rec.anlog 100 UNIT/ML 10 ML VIAL SUBCUT (21:00)
[2022-07-31] VITALS (7 sets, daily range): BP systolic 104–133; BP diastolic 48–70; PULSE 76–89; RESP 18; TEMP 36.4–37.2; O2SAT 95–97
[2022-07-31] MEDS: oxyCODONE HCl Immed Release 5 MG TABLET PO ×2 (05:11→23:13)
[2022-07-31 06:39] LABS: Hematocrit 26.8 % (42.0-52.0); Hemoglobin 8.5 g/dl (14.0-18.0); Mean Corpuscular HGB Conc 31.7 g/dl (31.0-36.0); Mean Corpuscular Hemoglobin 27.5 pg (27.0-33.0); Mean Corpuscular Volume 86.7 fL (80.0-98.0); Mean Platelet Volume 8.9 fL (9.4-12.4); Platelet Count 233 X10*3/uL (160-400); Red Blood Count 3.09 X10*6/uL (4.60-5.80); Red Cell Distribution Width 16.1 % (11.0-16.0); White Blood Count 5.8 X10*3/uL (4.8-10.8)
[2022-07-31 07:17] LABS: Anion Gap 11 (12-20); Blood Urea Nitrogen 14 mg/dL (9-16); Calcium 8.1 mg/dL (8.4-10.2); Carbon Dioxide 31 mmol/L (22-29); Chloride 97 mmol/L (96-108); Creatinine Clr Calc Pharmacy 117.4; Estimated Glomerular Filt Rate > 60; Glucose Random 143 mg/dL (60-115); Potassium 3.9 mmol/L (3.3-5.1); Sodium 135 mmol/L (135-145)
[2022-07-31] MEDS: Finasteride 5 MG TABLET PO (08:06)
[2022-07-31] MEDS: Amiodarone HCL 200 MG TABLET 400 MG PO ×2 (08:06→21:44)
[2022-07-31] MEDS: Ferrous Sulfate 324 MG TABLET.DR PO ×2 (08:07→16:10)
[2022-07-31] MEDS: Metoprolol Succinate ER 100 MG TAB.ER.24H PO (08:07)
[2022-07-31] MEDS: polyethylene glycoL 3350 17 GM POWD.PACK PO (08:07)
[2022-07-31] MEDS: Docusate Sodium 100 MG CAPSULE PO ×2 (08:07→21:45)
[2022-07-31] MEDS: Lidocaine 4 % Patch ADH..PATCH 1 PATCH TRANSDERMA (08:07)
[2022-07-31] MEDS: Tamsulosin HCL 0.4 MG CAPSULE 0.8 MG PO (08:07)
[2022-07-31] MEDS: Cholecalciferol (Vitamin D3) 25 MCG TABLET 50 MCG PO (08:07)
[2022-07-31] MEDS: Insulin Glargine,Hum.rec.anlog 100 UNIT/ML 10 ML VIAL 20 UNIT SUBCUT (08:08)
[2022-07-31] MEDS: Urea 15 GM POWDER 30 GM PO (08:08)
[2022-07-31] MEDS: 0.9 % Sodium Chloride Flush 3 ML SYRINGE IVFLUSH ×3 (08:09→22:08)
[2022-07-31] MEDS: Insulin Lispro 100 UNIT/ML 3 ML VIAL SUBCUT ×3 (08:18→21:46)
--- NOTE | 2022-07-31 10:24 | P.PNIM_ITS ---
Subjective Subjective Date of Service: 07/31/22 Interval History: seen and examined this morning follow up for sacral wound awake, alert, oriented this morning no specific complaints Review of Systems Review of Systems: Yes all other systems are reviewed and are negative Constitutional Constitutional: Denies chills and Denies fever(s) Cardiovascular Cardiovascular: Denies chest pain, Denies palpitations and Denies dyspnea Respiratory Respiratory: Denies dyspnea Gastrointestinal Gastrointestinal: Denies abdominal pain, Denies nausea and Denies vomiting Endocrine Endocrine: Denies palpitations Physical Exam Vital Signs: Vital Signs: Last Vital Signs Temp 97.5 F 07/31/22 08:00 Pulse 77 07/31/22 08:00 Resp 18 07/31/22 08:00 BP 112/53 L 07/31/22 08:00 Pulse Ox 95 07/31/22 08:00 O2 Del Method 07/31/22 08:00 O2 Flow Rate 2 07/19/22 07:33 BMI result Body Mass Index 26.6 Appearing in no acute distress lung sounds are clear to auscultation heart regular rate rhythm, clear S1, S2 Unstageable sacral wound positive bowel sounds, abdomen is soft, nontender neuro patient is alert x3, no focal deficits Objective Data Active Medications Acetaminophen (Acetaminophen 325 Mg Tablet) 650 mg PO Q6H PRN PRN Reason: Pain, Mild (Pain Scale 1-3) Last Admin: 07/30/22 08:32 Dose: 650 mg Documented By: ANA CRISTINA Amiodarone HCl (Amiodarone Hcl 200 Mg Tablet) 400 mg PO BID [facility] Stop: 08/07/22 10:10 Last Admin: 07/31/22 08:06 Dose: 400 mg Documented By: NADEGE Amiodarone HCl (Amiodarone Hcl 200 Mg Tablet) 200 mg PO DAILY [facility] Dextrose (Dextrose 50 % 25 Gm/50 Ml Syringe) 25 gm IVPUSH Q15M PRN; Protocol PRN Reason: per Hypoglycemia Standing Ord. Docusate Sodium (Docusate Sodium 100 Mg Capsule) 100 mg PO BID [facility] Last Admin: 07/31/22 08:07 Dose: 100 mg Documented By: NADEGE Ferrous Sulfate (Ferrous Sulfate 324 Mg Tablet.) 324 mg PO BIDWM [facility] Last Admin: 07/31/22 08:07 Dose: 324 mg Documented By: NADEGE Finasteride (Finasteride 5 Mg Tablet) 5 mg PO DAILY [facility] Last Admin: 07/31/22 08:06 Dose: 5 mg Documented By: NADEGE Glucose (Glucose Gel 15 Gm Gel..Gram.) 15 gm PO Q15M PRN; Protocol PRN Reason: per Hypoglycemia Standing Ord. Insulin Glargine (Insulin Glargine,Hum.Rec.Anlog 100 Unit/Ml 10 Ml Vial) 20 unit SUBCUT DAILY@0730 [facility] Last Admin: 07/31/22 08:08 Dose: 20 unit Documented By: NADEGE Insulin Glargine (Insulin Glargine,Hum.Rec.Anlog 100 Unit/Ml 10 Ml Vial) 5 unit SUBCUT BEDTIME [facility] Last Admin: 07/30/22 21:00 Dose: 5 unit Documented By: ADRIANA Insulin Human Lispro (Insulin Lispro 100 Unit/Ml 3 Ml Vial) 0 unit SUBCUT QIDACHS [facility]; Protocol Last Admin: 07/31/22 08:18 Dose: 2 unit Documented By: NADEGE Lidocaine (Lidocaine 4 % Patch Adh..Patch) 1 patch TRANSDERMA DAILY [facility]; Protocol Last Admin: 07/31/22 08:07 Dose: 1 patch Documented By: NADEGE Metoprolol Succinate (Metoprolol Succinate Er 100 Mg Tab.Er.24h) 100 mg PO DAILY [facility] Last Admin: 07/31/22 08:07 Dose: 100 mg Documented By: NADEGE Ondansetron HCl (Ondansetron Hcl 4 Mg/2 Ml Vial) 4 mg IVPUSH Q8H PRN PRN Reason: Nausea and Vomiting Last Admin: 07/07/22 01:05 Dose: 4 mg Documented By: MARIANN Ondansetron HCl (Ondansetron Hcl 4 Mg/2 Ml Vial) 4 mg IVPUSH ONCE PRN PRN Reason: Nausea and Vomiting Ondansetron HCl (Ondansetron Hcl 4 Mg/2 Ml Vial) 4 mg IVPUSH ONCE PRN PRN Reason: Nausea and Vomiting Oxycodone HCl (Oxycodone Hcl Immed Release 5 Mg Tablet) 5 mg PO Q4H PRN PRN Reason: Pain, Mild (Pain Scale 1-3) Last Admin: 07/31/22 05:11 Dose: 5 mg Documented By: ADRIANA Pharmacy Consult (Consult Rx Perform Med Rec) 1 each MISCELLANE ONCE PRN PRN Reason: Consult order Polyethylene Glycol (Polyethylene Glycol 3350 17 Gm Powd.Pack) 17 gm PO DAILY PRN PRN Reason: constipation Last Admin: 06/28/22 22:01 Dose: 17 gm Documented By: ADRIANA Polyethylene Glycol (Polyethylene Glycol 3350 17 Gm Powd.Pack) 17 gm PO DAILY [facility] Last Admin: 07/31/22 08:07 Dose: 17 gm Documented By: NADEGE Sodium Chloride (0.9 % Sodium Chloride Flush 3 Ml Syringe) 3 ml IVFLUSH QSHIFT [facility] Last Admin: 07/31/22 08:09 Dose: 3 ml Documented By: NADEGE Sodium Hypochlorite (Sodium Hypochlorite 0.25% 473 Ml Solution) 1 appl TOPICAL BID [facility] Last Admin: 07/31/22 10:20 Dose: 1 appl Documented By: NADEGE Tamsulosin HCl (Tamsulosin Hcl 0.4 Mg Capsule) 0.8 mg PO DAILY [facility] Last Admin: 07/31/22 08:07 Dose: 0.8 mg Documented By: NADEGE Urea (Urea 15 Gm Powder) 30 gm PO DAILY [facility] Last Admin: 07/31/22 08:08 Dose: 30 gm Documented By: NADEGE Vitamin D (Cholecalciferol (Vitamin D3) 25 Mcg Tablet) 50 mcg PO DAILY [facility] Last Admin: 07/31/22 08:07 Dose: 50 mcg Documented By: NADEGE Zinc Acetate/Diphenhydramine (Diphenhydramine Hcl 2 % Cream 28 Gm Tube) 1 appl TOPICAL TID PRN; Protocol PRN Reason: itching Labs CBC & Chem 7: 07/31/22 05:15 07/31/22 05:15 Labs: Laboratory Results - last 24 hr 07/30/22 07/30/22 07/30/22 10:54 15:30 20:43 MCV MCH MCHC RDW Plt Count MPV Absolute Nucleated RBC Nucleated RBC % (auto) Anion Gap Estim Creat Clear Calc Estimated GFR POC Glucose 284 H 246 H 314 H Random Glucose Calcium 07/31/22 07/31/22 05:15 05:15 MCV 86.7 MCH 27.5 MCHC 31.7 RDW 16.1 H Plt Count 233 MPV 8.9 L Absolute Nucleated RBC 0.000 Nucleated RBC % (auto) 0.0 Anion Gap 11 L Estim Creat Clear Calc 117.4 Estimated GFR > 60 POC Glucose Random Glucose 143 H Calcium 8.1 L Assessment and Plan (1) Urinary retention: Status: Acute (2) Stage 4 decubitus ulcer: Status: Acute Plan 74yo M with DM2, HTN, HLD, chronic venous stasis dermatitis presented with mechanical fall, admitted for hypoxia due to PNA Sacral decubitus ulcer. Unstageable s/p 07/08,07/17 debridement of sacral decubitus ulcer, including skin, dermis, subcutaneous tissue and muscle; operative findings of necrotic skin, subcutaneo us tissue and muscle. Ulcer measured approximately 10 cm x 10 cm in diameter with a depth of 4 cm s/p wound vac placement 07/22/22 - removed 07/25 after it became soiled surgery following - had planned for further debridement but patient continues to decline continue wet to dry dressings for now Atrial flutter/fib with RVR intermittently LVEF >70% continue toprol xl hold apixaban, resume as appropriate following debridement cardiology following episode of SVT vs atrial tachycardia 07/26 HR improved with IV Lopressor seen by cardiology, recommended to start amiodorone 400 bid, stop on 08/07/21 and start 200mg daily continue toprol XL blood pressure has remained stable. patient asymptomatic Acute blood loss anemia blood loss at site of decub ulcer patient received 2 unit of packed RBC continue ferrous sulfate b.i.d. H/H stable Traumatic SAH CT brain 06/26 New small areas of extra-axial hemorrhage adjacent to the left posterior parietal lobe, bilateral occipital lobes and in the occipital horns of both lateral ventricles, repeat CT 06/28 unchanged seen by neuro - rec to hold AC for two weeks no headache, no dizziness No other complications Acute hypoxic respiratory failure due to PNA finished 10d of ABX back on room air Urinary retention failed voiding trial x2 continue tamsulosin and finasteride seen by urology, continue roberts upon discharge - outpatient urology follow up hyponatremia resolved continue urea cortisol, TSH wnl Mechanical fall difficulty ambulating; awaiting SNF placement generalized weakness 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 but not clinically NPH per Neurology acute/chronic hypoNa resolved,on fluid restriction change fluid restriction to 1800 mL incidental 1.3cm pancreatic lesions may reflect adjacent pancreatic cysts outpt MRI/MRCP DM2 continue Lantus, SSI HTN soft blood pressures losartan and hydralazine discontinued continue metoprolol HLD statin VTE ppx: SCDs, apixaban on hold attending Dr. Contreras Full code Disposition. Discharge to [facility]dc facility when medically clear In my clinical judgment, the patient requires continued inpatient hospitalization for the following reasons: SNF placement and follow-up on stage IV decub ulcer with need for further debridement. management of atrial tachycardia vs SVT Time Spent With Patient Time: Total time managing care of this patient today ____ minutes. Quality Stroke Does the patient have a stroke diagnosis?: No VTE Prior VTE?: No VTE Risk Level:: Medical - moderate - high VTE Device Contraindication: Treatment Not Indicated VTE Drug Contraindication: N/A - Med Ordered
--- NOTE | 2022-07-31 14:00 | MHC.CLN ---
F/U PO INTAKE 50% AVERAGE DIET RX: 2200DM-APPROPRIATE SUPPLEMENT TO OPTIMIZE NUTRITION FOR WOUND HEALING PT RECEIVING ENSURE TID PLUS ANDREZ BID PROVIDES ADDITIONAL 1210 KCALS, 65 G PROTEIN WITH 100% ACCEPTANCE MONITOR PO INTAKE CLOSELY
[2022-07-31 15:37] LABS: Glucose, Whole Blood 138 mg/dL (60-115)
[2022-07-31 15:37] LABS: Glucose, Whole Blood 266 mg/dL (60-115)
[2022-07-31 15:37] LABS: Glucose, Whole Blood 172 mg/dL (60-115)
[2022-07-31 19:30] LABS: Glucose, Whole Blood 291 mg/dL (60-115)
[2022-07-31] MEDS: Insulin Glargine,Hum.rec.anlog 100 UNIT/ML 10 ML VIAL SUBCUT (21:45)
[2022-08-01 03:46] VITALS: BP 142/76; PULSE 108; RESP 20; TEMP 36.3; O2SAT 100
[2022-08-01] MEDS: oxyCODONE HCl Immed Release 5 MG TABLET PO ×3 (05:22→20:39)
[2022-08-01 07:05] VITALS: BP 116/56; PULSE 82; RESP 18; TEMP 36.6; O2SAT 95
[2022-08-01 07:50] LABS: Glucose, Whole Blood 158 mg/dL (60-115)
[2022-08-01] MEDS: Insulin Lispro 100 UNIT/ML 3 ML VIAL SUBCUT ×4 (08:29→20:44)
[2022-08-01] MEDS: Insulin Glargine,Hum.rec.anlog 100 UNIT/ML 10 ML VIAL 20 UNIT SUBCUT (08:29)
[2022-08-01] MEDS: Cholecalciferol (Vitamin D3) 25 MCG TABLET 50 MCG PO (08:30)
[2022-08-01] MEDS: 0.9 % Sodium Chloride Flush 3 ML SYRINGE IVFLUSH ×3 (08:30→20:45)
[2022-08-01] MEDS: Finasteride 5 MG TABLET PO (08:30)
[2022-08-01] MEDS: Lidocaine 4 % Patch ADH..PATCH 1 PATCH TRANSDERMA (08:30)
[2022-08-01] MEDS: Urea 15 GM POWDER 30 GM PO (08:30)
[2022-08-01] MEDS: Docusate Sodium 100 MG CAPSULE PO ×2 (08:30→20:39)
[2022-08-01] MEDS: polyethylene glycoL 3350 17 GM POWD.PACK PO (08:30)
[2022-08-01] MEDS: Ferrous Sulfate 324 MG TABLET.DR PO ×2 (08:30→16:45)
[2022-08-01] MEDS: Metoprolol Succinate ER 100 MG TAB.ER.24H PO (08:31)
[2022-08-01] MEDS: Amiodarone HCL 200 MG TABLET 400 MG PO ×2 (08:31→20:40)
[2022-08-01] MEDS: Tamsulosin HCL 0.4 MG CAPSULE 0.8 MG PO (08:31)
[2022-08-01 11:10] VITALS: BP 116/54; PULSE 82; RESP 18; TEMP 37.1; O2SAT 97
[2022-08-01 11:22] LABS: Glucose, Whole Blood 259 mg/dL (60-115)
--- NOTE | 2022-08-01 13:08 | P.PNIM_ITS ---
Subjective Subjective Date of Service: 08/01/22 Interval History: seen and examined this morning follow up for sacral wound awake, alert - no specific complaints Review of Systems Review of Systems: Yes all other systems are reviewed and are negative Constitutional Constitutional: Denies chills and Denies fever(s) Cardiovascular Cardiovascular: Denies chest pain and Denies dyspnea Respiratory Respiratory: Denies dyspnea Gastrointestinal Gastrointestinal: Denies abdominal pain Physical Exam Vital Signs: Vital Signs: Last Vital Signs Temp 98.7 F 08/01/22 11:10 Pulse 82 08/01/22 11:10 Resp 18 08/01/22 11:10 BP 116/54 L 08/01/22 11:10 Pulse Ox 97 08/01/22 11:10 O2 Del Method 08/01/22 11:10 O2 Flow Rate 2 07/19/22 07:33 BMI result Body Mass Index 26.6 Const: General: comfortable, no acute distress, alert and awake Resp: Effort & Inspection: normal respiratory effort and able to speak in complete sentences Cardio: Rate: regular rate Heart sounds: no murmurs GI: Inspection: No distended Palpation (GI): Soft to palpation and nontender : Other: roberts in place Skin: Other: dressing covering sacral wound c/d/i Neuro: Other: grossly nonfocal Extrem: Other: able to move all 4 extremities spontaneously General: Yes no pedal edema Objective Data Active Medications Acetaminophen (Acetaminophen 325 Mg Tablet) 650 mg PO Q6H PRN PRN Reason: Pain, Mild (Pain Scale 1-3) Last Admin: 07/30/22 08:32 Dose: 650 mg Documented By: ANA CRISTINA Amiodarone HCl (Amiodarone Hcl 200 Mg Tablet) 400 mg PO BID [facility]S [facility]CLUDE 234 BEDS AT THE [facility] Stop: 08/07/22 10:10 Last Admin: 08/01/22 08:31 Dose: 400 mg Documented By: OSMEL Amiodarone HCl (Amiodarone Hcl 200 Mg Tablet) 200 mg PO DAILY [facility]CLUDE 234 BEDS AT THE [facility] Dextrose (Dextrose 50 % 25 Gm/50 Ml Syringe) 25 gm IVPUSH Q15M PRN; Protocol PRN Reason: per Hypoglycemia Standing Ord. Docusate Sodium (Docusate Sodium 100 Mg Capsule) 100 mg PO BID [facility]CLUDE 234 BEDS AT THE [facility] Last Admin: 08/01/22 08:30 Dose: 100 mg Documented By: OSMEL Ferrous Sulfate (Ferrous Sulfate 324 Mg Tablet.) 324 mg PO BIDWM COUNTS INCLUDE 234 BEDS AT THE [facility] Last Admin: 08/01/22 08:30 Dose: 324 mg Documented By: OSMEL Finasteride (Finasteride 5 Mg Tablet) 5 mg PO DAILY [facility]S [facility]CLUDE 234 BEDS AT THE [facility] Last Admin: 08/01/22 08:30 Dose: 5 mg Documented By: OSMEL Glucose (Glucose Gel 15 Gm Gel..Gram.) 15 gm PO Q15M PRN; Protocol PRN Reason: per Hypoglycemia Standing Ord. Insulin Glargine (Insulin Glargine,Hum.Rec.Anlog 100 Unit/Ml 10 Ml Vial) 20 unit SUBCUT DAILY@0730 [facility]S [facility]CLUDE 234 BEDS AT THE [facility] Last Admin: 08/01/22 08:29 Dose: 20 unit Documented By: OSMEL Insulin Glargine (Insulin Glargine,Hum.Rec.Anlog 100 Unit/Ml 10 Ml Vial) 5 unit SUBCUT BEDTIME [facility]S [facility]CLUDE 234 BEDS AT THE [facility] Last Admin: 07/31/22 21:45 Dose: 5 unit Documented By: TOM Insulin Human Lispro (Insulin Lispro 100 Unit/Ml 3 Ml Vial) 0 unit SUBCUT QIDACHS [facility]S INCLUDE 234 BEDS AT THE [facility]; Protocol Last Admin: 08/01/22 11:57 Dose: 8 unit Documented By: OSMEL Lidocaine (Lidocaine 4 % Patch Adh..Patch) 1 patch TRANSDERMA DAILY [facility]CLUDE 234 BEDS AT THE [facility]; Protocol Last Admin: 08/01/22 08:30 Dose: 1 patch Documented By: OSMEL Metoprolol Succinate (Metoprolol Succinate Er 100 Mg Tab.Er.24h) 100 mg PO DAILY [facility]CLUDE 234 BEDS AT THE [facility] Last Admin: 08/01/22 08:31 Dose: 100 mg Documented By: OSMEL Ondansetron HCl (Ondansetron Hcl 4 Mg/2 Ml Vial) 4 mg IVPUSH Q8H PRN PRN Reason: Nausea and Vomiting Last Admin: 07/07/22 01:05 Dose: 4 mg Documented By: MARIANN Ondansetron HCl (Ondansetron Hcl 4 Mg/2 Ml Vial) 4 mg IVPUSH ONCE PRN PRN Reason: Nausea and Vomiting Ondansetron HCl (Ondansetron Hcl 4 Mg/2 Ml Vial) 4 mg IVPUSH ONCE PRN PRN Reason: Nausea and Vomiting Oxycodone HCl (Oxycodone Hcl Immed Release 5 Mg Tablet) 5 mg PO Q4H PRN PRN Reason: Pain, Mild (Pain Scale 1-3) Last Admin: 08/01/22 05:22 Dose: 5 mg Documented By: TOM Pharmacy Consult (Consult Rx Perform Med Rec) 1 each MISCELLANE ONCE PRN PRN Reason: Consult order Polyethylene Glycol (Polyethylene Glycol 3350 17 Gm Powd.Pack) 17 gm PO DAILY PRN PRN Reason: constipation Last Admin: 06/28/22 22:01 Dose: 17 gm Documented By: ADRIANA Polyethylene Glycol (Polyethylene Glycol 3350 17 Gm Powd.Pack) 17 gm PO DAILY [facility]CLUDE 234 BEDS AT THE [facility] Last Admin: 08/01/22 08:30 Dose: 17 gm Documented By: OSMEL Sodium Chloride (0.9 % Sodium Chloride Flush 3 Ml Syringe) 3 ml IVFLUSH QSHIFT COUNTS INCLUDE 234 BEDS AT THE [facility] Last Admin: 08/01/22 08:30 Dose: 3 ml Documented By: OSMEL Sodium Hypochlorite (Sodium Hypochlorite 0.25% 473 Ml Solution) 1 appl TOPICAL BID [facility]S INCLUDE 234 BEDS AT THE [facility] Last Admin: 08/01/22 11:58 Dose: 1 appl Documented By: OSMEL Tamsulosin HCl (Tamsulosin Hcl 0.4 Mg Capsule) 0.8 mg PO DAILY [facility]CLUDE 234 BEDS AT THE [facility] Last Admin: 08/01/22 08:31 Dose: 0.8 mg Documented By: OSMEL Urea (Urea 15 Gm Powder) 30 gm PO DAILY [facility]CLUDE 234 BEDS AT THE [facility] Last Admin: 08/01/22 08:30 Dose: 30 gm Documented By: OSMEL Vitamin D (Cholecalciferol (Vitamin D3) 25 Mcg Tablet) 50 mcg PO DAILY [facility]CLUDE 234 BEDS AT THE [facility] Last Admin: 08/01/22 08:30 Dose: 50 mcg Documented By: OSMEL Zinc Acetate/Diphenhydramine (Diphenhydramine Hcl 2 % Cream 28 Gm Tube) 1 appl TOPICAL TID PRN; Protocol PRN Reason: itching Labs CBC & Chem 7: 07/31/22 05:15 07/31/22 05:15 Labs: Laboratory Results - last 24 hr 07/31/22 07/31/22 07/31/22 08:06 11:19 15:23 POC Glucose 172 H 138 H 266 H 07/31/22 08/01/22 08/01/22 19:06 07:11 11:13 POC Glucose 291 H 158 H 259 H Assessment and Plan (1) SVT (supraventricular tachycardia): Status: Acute (2) Urinary retention: Status: Acute (3) Status post excisional debridement: Status: Acute Plan 74yo M with DM2, HTN, HLD, chronic venous stasis dermatitis presented with mechanical fall, admitted for hypoxia due to PNA Sacral decubitus ulcer. Unstageable s/p 07/08,07/17 debridement of sacral decubitus ulcer, including skin, dermis, subcutaneous tissue and muscle; operative findings of necrotic skin, subcutaneous tissue and muscle. Ulcer measured approximately 10 cm x 10 cm in diameter with a depth of 4 cm s/p wound vac placement 07/22/22 - removed 07/25 after it became soiled surgery following - had planned for further debridement but patient continues to decline continue wet to dry dressings for now Atrial flutter/fib with RVR intermittently LVEF >70% continue toprol xl hold apixaban, resume as appropriate following debridement cardiology following episode of SVT vs atrial tachycardia 07/26 HR improved with IV Lopressor seen by cardiology, recommended to start amiodorone 400 bid, stop on 08/07/21 and start 200mg daily continue toprol XL blood pressure has remained stable. patient asymptomatic Acute blood loss anemia blood loss at site of decub ulcer patient received 2 unit of packed RBC continue ferrous sulfate b.i.d. H/H stable Traumatic SAH CT brain 06/26 New small areas of extra-axial hemorrhage adjacent to the left posterior parietal lobe, bilateral occipital lobes and in the occipital horns of both lateral ventricles, repeat CT 06/28 unchanged seen by neuro - rec to hold AC for two weeks no headache, no dizziness No other complications Acute hypoxic respiratory failure due to PNA finished 10d of ABX back on room air Urinary retention failed voiding trial x2 continue tamsulosin and finasteride seen by urology, continue roberts upon discharge - outpatient urology follow up hyponatremia resolved continue urea cortisol, TSH wnl Mechanical fall difficulty ambulating; awaiting SNF placement generalized weakness 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 but not clinically NPH per Neurology acute/chronic hypoNa resolved incidental 1.3cm pancreatic lesions may reflect adjacent pancreatic cysts outpt MRI/MRCP DM2 continue Lantus, SSI HTN soft blood pressures losartan and hydralazine discontinued continue metoprolol HLD statin VTE ppx: SCDs, apixaban on hold attending Dr. Contreras Full code Disposition. 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 Quality Stroke Does the patient have a stroke diagnosis?: No VTE Prior VTE?: No VTE Risk Level:: Medical - moderate - high VTE Device Contraindication: Treatment Not Indicated VTE Drug Contraindication: N/A - Med Ordered
[2022-08-01] MEDS: Acetaminophen 325 MG TABLET 650 MG PO (14:47)
[2022-08-01 15:31] VITALS: BP 110/54; PULSE 83; RESP 16; TEMP 37.7; O2SAT 95
[2022-08-01 16:15] LABS: Glucose, Whole Blood 158 mg/dL (60-115)
[2022-08-01 19:22] VITALS: BP 103/48; PULSE 74; RESP 16; TEMP 35.7; O2SAT 97
[2022-08-01 19:36] LABS: Glucose, Whole Blood 245 mg/dL (60-115)
[2022-08-01] MEDS: Insulin Glargine,Hum.rec.anlog 100 UNIT/ML 10 ML VIAL SUBCUT (20:41)
[2022-08-01 23:59] VITALS: BP 123/60; PULSE 88; RESP 12; TEMP 37.2; O2SAT 90
[2022-08-02] MEDS: Acetaminophen 325 MG TABLET 650 MG PO ×2 (02:15→13:49)
[2022-08-02] MEDS: oxyCODONE HCl Immed Release 5 MG TABLET PO ×3 (02:15→13:49)
[2022-08-02 03:14] VITALS: BP 109/48; PULSE 83; RESP 12; TEMP 36.9; O2SAT 96
[2022-08-02 07:37] LABS: Glucose, Whole Blood 102 mg/dL (60-115)
[2022-08-02 07:42] VITALS: BP 114/53; PULSE 75; RESP 18; TEMP 35.7; O2SAT 96
[2022-08-02] MEDS: Docusate Sodium 100 MG CAPSULE PO ×2 (08:02→21:59)
[2022-08-02] MEDS: Urea 15 GM POWDER 30 GM PO (08:02)
[2022-08-02] MEDS: Finasteride 5 MG TABLET PO (08:02)
[2022-08-02] MEDS: Amiodarone HCL 200 MG TABLET 400 MG PO ×2 (08:02→21:59)
[2022-08-02] MEDS: Tamsulosin HCL 0.4 MG CAPSULE 0.8 MG PO (08:02)
[2022-08-02] MEDS: Metoprolol Succinate ER 100 MG TAB.ER.24H PO (08:02)
[2022-08-02] MEDS: Insulin Glargine,Hum.rec.anlog 100 UNIT/ML 10 ML VIAL 20 UNIT SUBCUT (08:02)
[2022-08-02] MEDS: Ferrous Sulfate 324 MG TABLET.DR PO ×2 (08:02→17:24)
[2022-08-02] MEDS: Cholecalciferol (Vitamin D3) 25 MCG TABLET 50 MCG PO (08:02)
[2022-08-02] MEDS: polyethylene glycoL 3350 17 GM POWD.PACK PO (08:03)
[2022-08-02] MEDS: Lidocaine 4 % Patch ADH..PATCH 1 PATCH TRANSDERMA (08:03)
[2022-08-02] MEDS: 0.9 % Sodium Chloride Flush 3 ML SYRINGE IVFLUSH ×3 (08:03→22:00)
[2022-08-02 11:23] LABS: Glucose, Whole Blood 227 mg/dL (60-115)
[2022-08-02 12:00] VITALS: TEMP 36.1
[2022-08-02] MEDS: Insulin Lispro 100 UNIT/ML 3 ML VIAL SUBCUT ×3 (12:15→22:00)
--- NOTE | 2022-08-02 12:18 | P.PNIM_ITS ---
Subjective Subjective Date of Service: 08/02/22 Interval History: seen and examined this morning follow up for sacral wound awake, alert. no specific complaints no chest pain, palpitations or SOB Review of Systems Review of Systems: Yes all other systems are reviewed and are negative Constitutional Constitutional: Denies chills and Denies fever(s) Cardiovascular Cardiovascular: Denies chest pain, Denies palpitations and Denies dyspnea Respiratory Respiratory: Denies cough and Denies dyspnea Endocrine Endocrine: Denies palpitations Physical Exam Vital Signs: Vital Signs: Last Vital Signs Temp 96.3 F L 08/02/22 07:42 Pulse 75 08/02/22 07:42 Resp 18 08/02/22 07:42 BP 114/53 L 08/02/22 07:42 Pulse Ox 96 08/02/22 07:42 O2 Del Method 08/02/22 07:42 O2 Flow Rate 2 07/19/22 07:33 BMI result Body Mass Index 26.6 Const: General: comfortable, no acute distress, alert and awake Resp: Effort & Inspection: normal respiratory effort and able to speak in complete sentences Cardio: Rate: regular rate Heart sounds: no murmurs GI: Inspection: No distended Palpation (GI): Soft to palpation and nontender : Other: roberts in place Skin: Other: Neuro: Other: grossly nonfocal Extrem: Other: able to move all 4 extremities spontaneously; trace leg edema Objective Data Active Medications Acetaminophen (Acetaminophen 325 Mg Tablet) 650 mg PO Q6H PRN PRN Reason: Pain, Mild (Pain Scale 1-3) Last Admin: 08/02/22 02:15 Dose: 650 mg Documented By: TOM Amiodarone HCl (Amiodarone Hcl 200 Mg Tablet) 400 mg PO BID [facility] Stop: 08/07/22 10:10 Last Admin: 08/02/22 08:02 Dose: 400 mg Documented By: OSMEL Amiodarone HCl (Amiodarone Hcl 200 Mg Tablet) 200 mg PO DAILY [facility] Dextrose (Dextrose 50 % 25 Gm/50 Ml Syringe) 25 gm IVPUSH Q15M PRN; Protocol PRN Reason: per Hypoglycemia Standing Ord. Docusate Sodium (Docusate Sodium 100 Mg Capsule) 100 mg PO BID [facility] Last Admin: 08/02/22 08:02 Dose: 100 mg Documented By: OSMEL Ferrous Sulfate (Ferrous Sulfate 324 Mg Tablet.) 324 mg PO BIDWM [facility] Last Admin: 08/02/22 08:02 Dose: 324 mg Documented By: OSMEL Finasteride (Finasteride 5 Mg Tablet) 5 mg PO DAILY [facility] Last Admin: 08/02/22 08:02 Dose: 5 mg Documented By: OSMEL Glucose (Glucose Gel 15 Gm Gel..Gram.) 15 gm PO Q15M PRN; Protocol PRN Reason: per Hypoglycemia Standing Ord. Insulin Glargine (Insulin Glargine,Hum.Rec.Anlog 100 Unit/Ml 10 Ml Vial) 20 unit SUBCUT DAILY@0730 [facility] Last Admin: 08/02/22 08:02 Dose: 20 unit Documented By: OSMEL Insulin Glargine (Insulin Glargine,Hum.Rec.Anlog 100 Unit/Ml 10 Ml Vial) 5 unit SUBCUT BEDTIME [facility] Last Admin: 08/01/22 20:41 Dose: 5 unit Documented By: TOM Insulin Human Lispro (Insulin Lispro 100 Unit/Ml 3 Ml Vial) 0 unit SUBCUT QIDACHS [facility]; Protocol Last Admin: 08/02/22 12:15 Dose: 6 unit Documented By: OSMEL Lidocaine (Lidocaine 4 % Patch Adh..Patch) 1 patch TRANSDERMA DAILY [facility]; Protocol Last Admin: 08/02/22 08:03 Dose: 1 patch Documented By: OSMEL Metoprolol Succinate (Metoprolol Succinate Er 100 Mg Tab.Er.24h) 100 mg PO DAILY [facility] Last Admin: 08/02/22 08:02 Dose: 100 mg Documented By: OSMEL Ondansetron HCl (Ondansetron Hcl 4 Mg/2 Ml Vial) 4 mg IVPUSH Q8H PRN PRN Reason: Nausea and Vomiting Last Admin: 07/07/22 01:05 Dose: 4 mg Documented By: MARIANN Ondansetron HCl (Ondansetron Hcl 4 Mg/2 Ml Vial) 4 mg IVPUSH ONCE PRN PRN Reason: Nausea and Vomiting Ondansetron HCl (Ondansetron Hcl 4 Mg/2 Ml Vial) 4 mg IVPUSH ONCE PRN PRN Reason: Nausea and Vomiting Oxycodone HCl (Oxycodone Hcl Immed Release 5 Mg Tablet) 5 mg PO Q4H PRN PRN Reason: Pain, Mild (Pain Scale 1-3) Last Admin: 08/02/22 06:34 Dose: 5 mg Documented By: BRENDA Pharmacy Consult (Consult Rx Perform Med Rec) 1 each MISCELLANE ONCE PRN PRN Reason: Consult order Polyethylene Glycol (Polyethylene Glycol 3350 17 Gm Powd.Pack) 17 gm PO DAILY PRN PRN Reason: constipation Last Admin: 06/28/22 22:01 Dose: 17 gm Documented By: ADRIANA Polyethylene Glycol (Polyethylene Glycol 3350 17 Gm Powd.Pack) 17 gm PO DAILY [facility] Last Admin: 08/02/22 08:03 Dose: 17 gm Documented By: OSMEL Sodium Chloride (0.9 % Sodium Chloride Flush 3 Ml Syringe) 3 ml IVFLUSH QSHIFT [facility] Last Admin: 08/02/22 08:03 Dose: 3 ml Documented By: OSMEL Sodium Hypochlorite (Sodium Hypochlorite 0.25% 473 Ml Solution) 1 appl TOPICAL BID [facility] Last Admin: 08/02/22 08:03 Dose: 1 appl Documented By: OSMEL Tamsulosin HCl (Tamsulosin Hcl 0.4 Mg Capsule) 0.8 mg PO DAILY [facility] Last Admin: 08/02/22 08:02 Dose: 0.8 mg Documented By: OSMEL Urea (Urea 15 Gm Powder) 30 gm PO DAILY [facility] Last Admin: 08/02/22 08:02 Dose: 30 gm Documented By: OSMEL Vitamin D (Cholecalciferol (Vitamin D3) 25 Mcg Tablet) 50 mcg PO DAILY [facility] Last Admin: 08/02/22 08:02 Dose: 50 mcg Documented By: OSMEL Zinc Acetate/Diphenhydramine (Diphenhydramine Hcl 2 % Cream 28 Gm Tube) 1 appl TOPICAL TID PRN; Protocol PRN Reason: itching Labs CBC & Chem 7: 07/31/22 05:15 07/31/22 05:15 Labs: Laboratory Results - last 24 hr 08/01/22 08/01/22 08/02/22 16:11 19:30 07:12 POC Glucose 158 H 245 H 102 08/02/22 11:18 POC Glucose 227 H Assessment and Plan (1) Status post excisional debridement: Status: Acute Plan 74yo M with DM2, HTN, HLD, chronic venous stasis dermatitis presented with mechanical fall, admitted for hypoxia due to PNA Sacral decubitus ulcer. Unstageable s/p 07/08,07/17 debridement of sacral decubitus ulcer, including skin, dermis, subcutaneous tissue and muscle; operative findings of necrotic skin, subcutaneous tissue and muscle. Ulcer measured approximately 10 cm x 10 cm in diameter with a depth of 4 cm s/p wound vac placement 07/22/22 - removed 07/25 after it became soiled surgery following - had planned for further debridement but patient continues to decline continue wet to dry dressings for now Atrial flutter/fib with RVR intermittently LVEF >70% continue toprol xl will resume eliquis as no further debridement planned at this time cardiology following episode of SVT vs atrial tachycardia 07/26 HR improved with IV Lopressor seen by cardiology, recommended to start amiodorone 400 bid, stop on 08/07/21 and start 200mg daily continue toprol XL blood pressure has remained stable. patient asymptomatic Acute blood loss anemia blood loss at site of decub ulcer patient received 2 unit of packed RBC continue ferrous sulfate b.i.d. H/H stable Traumatic SAH CT brain 06/26 New small areas of extra-axial hemorrhage adjacent to the left posterior parietal lobe, bilateral occipital lobes and in the occipital horns of both lateral ventricles, repeat CT 06/28 unchanged seen by neuro - AC was held for two weeks no headache, no dizziness No other complications Acute hypoxic respiratory failure due to PNA finished 10d of ABX back on room air Urinary retention failed voiding trial x2 continue tamsulosin and finasteride seen by urology, continue roberts upon discharge - outpatient urology follow up hyponatremia resolved continue urea cortisol, TSH wnl Mechanical fall difficulty ambulating; awaiting SNF placement generalized weakness 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 but not clinically NPH per Neurology acute/chronic hypoNa resolved incidental 1.3cm pancreatic lesions may reflect adjacent pancreatic cysts outpt MRI/MRCP DM2 continue Lantus, SSI HTN soft blood pressures losartan and hydralazine discontinued continue metoprolol HLD statin VTE ppx: SCDs, resume eliquis attending Dr. Contreras Full code Disposition. 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 Quality Stroke Does the patient have a stroke diagnosis?: No VTE Prior VTE?: No VTE Risk Level:: Medical - moderate - high VTE Device Contraindication: Treatment Not Indicated VTE Drug Contraindication: N/A - Med Ordered
--- NOTE | 2022-08-02 12:58 | MHC.CLN ---
F/U PO INTAKE 50-100% DIET RX: 2200DM-APPROPRIATE SUPPLEMENT TO OPTIMIZE NUTRITION FOR WOUND HEALING PT RECEIVING ENSURE TID PLUS ANDREZ BID PROVIDES ADDITIONAL 1210 KCALS, 65 G PROTEIN WITH 100% ACCEPTANCE CONTINUE TO MONITOR PO INTAKE CLOSELY
[2022-08-02 16:00] VITALS: BP 125/58; PULSE 80; RESP 16; TEMP 36.4; O2SAT 94
[2022-08-02 17:19] LABS: Glucose, Whole Blood 167 mg/dL (60-115)
[2022-08-02 20:00] VITALS: BP 131/60; PULSE 68; RESP 18; TEMP 36; O2SAT 94
[2022-08-02 21:56] LABS: Glucose, Whole Blood 255 mg/dL (60-115)
[2022-08-02] MEDS: Apixaban 5 MG TABLET PO (21:59)
[2022-08-02] MEDS: Insulin Glargine,Hum.rec.anlog 100 UNIT/ML 10 ML VIAL SUBCUT (21:59)
[2022-08-02 23:16] VITALS: BP 147/65; PULSE 76; RESP 18; TEMP 37.1; O2SAT 98
[2022-08-03 04:00] VITALS: BP 147/62; PULSE 90; RESP 18; TEMP 37.1; O2SAT 97
[2022-08-03 05:49] LABS: Hematocrit 27.9 % (42.0-52.0); Hemoglobin 8.9 g/dl (14.0-18.0); Mean Corpuscular HGB Conc 31.9 g/dl (31.0-36.0); Mean Corpuscular Hemoglobin 27.1 pg (27.0-33.0); Mean Corpuscular Volume 85.1 fL (80.0-98.0); Mean Platelet Volume 8.3 fL (9.4-12.4); Platelet Count 221 X10*3/uL (160-400); Red Blood Count 3.28 X10*6/uL (4.60-5.80); White Blood Count 5.5 X10*3/uL (4.8-10.8)
[2022-08-03 06:20] LABS: Anion Gap 11 (12-20); Blood Urea Nitrogen 9 mg/dL (9-16); Calcium 7.8 mg/dL (8.4-10.2); Carbon Dioxide 30 mmol/L (22-29); Chloride 98 mmol/L (96-108); Creatinine Clr Calc Pharmacy 115.1; Estimated Glomerular Filt Rate > 60; Glucose Random 148 mg/dL (60-115); Sodium 135 mmol/L (135-145)
[2022-08-03] MEDS: oxyCODONE HCl Immed Release 5 MG TABLET PO ×3 (06:23→20:43)
[2022-08-03] MEDS: Acetaminophen 325 MG TABLET 650 MG PO ×2 (06:24→14:18)
[2022-08-03 07:48] VITALS: BP 107/53; PULSE 84; RESP 18; TEMP 36.7; O2SAT 98
[2022-08-03 07:49] LABS: Glucose, Whole Blood 136 mg/dL (60-115)
[2022-08-03] MEDS: Insulin Glargine,Hum.rec.anlog 100 UNIT/ML 10 ML VIAL 20 UNIT SUBCUT (08:20)
[2022-08-03] MEDS: Urea 15 GM POWDER 30 GM PO (08:20)
[2022-08-03] MEDS: Ferrous Sulfate 324 MG TABLET.DR PO ×2 (08:21→16:56)
[2022-08-03] MEDS: Finasteride 5 MG TABLET PO (08:21)
[2022-08-03] MEDS: Amiodarone HCL 200 MG TABLET 400 MG PO ×2 (08:21→20:44)
[2022-08-03] MEDS: Metoprolol Succinate ER 100 MG TAB.ER.24H PO (08:21)
[2022-08-03] MEDS: polyethylene glycoL 3350 17 GM POWD.PACK PO (08:21)
[2022-08-03] MEDS: Lidocaine 4 % Patch ADH..PATCH 1 PATCH TRANSDERMA (08:21)
[2022-08-03] MEDS: Cholecalciferol (Vitamin D3) 25 MCG TABLET 50 MCG PO (08:21)
[2022-08-03] MEDS: Docusate Sodium 100 MG CAPSULE PO ×2 (08:21→20:43)
[2022-08-03] MEDS: Tamsulosin HCL 0.4 MG CAPSULE 0.8 MG PO (08:21)
[2022-08-03] MEDS: Apixaban 5 MG TABLET PO (08:21)
[2022-08-03] MEDS: 0.9 % Sodium Chloride Flush 3 ML SYRINGE IVFLUSH ×3 (08:22→20:45)
[2022-08-03 11:20] LABS: Glucose, Whole Blood 281 mg/dL (60-115)
[2022-08-03] MEDS: Insulin Lispro 100 UNIT/ML 3 ML VIAL SUBCUT ×3 (11:35→20:44)
[2022-08-03 15:02] VITALS: BP 133/60; PULSE 76; RESP 18; TEMP 36.7; O2SAT 98
[2022-08-03 15:25] LABS: Glucose, Whole Blood 246 mg/dL (60-115)
--- NOTE | 2022-08-03 15:32 | HO.PM.IMPN ---
Subjective Subjective Date of Service: 08/03/22 Interval History: seen and examined this morning follow up for sacral wound no overnight events no specific complaints this morning Review of Systems Review of Systems: Yes all other systems are reviewed and are negative Constitutional Constitutional: Denies chills and Denies fever(s) Cardiovascular Cardiovascular: Denies chest pain, Denies palpitations and Denies dyspnea Respiratory Respiratory: Denies cough and Denies dyspnea Gastrointestinal Gastrointestinal: Denies abdominal pain, Denies nausea and Denies vomiting Endocrine Endocrine: Denies palpitations Physical Exam Vital Signs: Vital Signs: Last Vital Signs Temp 98.1 F 08/03/22 15:02 Pulse 76 08/03/22 15:02 Resp 18 08/03/22 15:02 BP 133/60 08/03/22 15:02 Pulse Ox 98 08/03/22 15:02 O2 Del Method 08/03/22 15:02 O2 Flow Rate 2 07/19/22 07:33 BMI result Body Mass Index 26.6 Const: General: comfortable, no acute distress, alert and awake Resp: Effort & Inspection: normal respiratory effort and able to speak in complete sentences Auscultation: clear to auscultation bilaterally Cardio: Rate: regular rate Heart sounds: no murmurs GI: Inspection: No distended Palpation (GI): Soft to palpation and nontender : Other: roberts in place Neuro: Other: grossly nonfocal Extrem: Other: able to move all 4 extremities spontaneously; trace leg edema Objective Data Active Medications Acetaminophen (Acetaminophen 325 Mg Tablet) 650 mg PO Q6H PRN PRN Reason: Pain, Mild (Pain Scale 1-3) Last Admin: 08/03/22 14:18 Dose: 650 mg Documented By: ANA CRISTINA Amiodarone HCl (Amiodarone Hcl 200 Mg Tablet) 400 mg PO BID [facility] Stop: 08/07/22 10:10 Last Admin: 08/03/22 08:21 Dose: 400 mg Documented By: COTEMA Amiodarone HCl (Amiodarone Hcl 200 Mg Tablet) 200 mg PO DAILY [facility] Apixaban (Apixaban 5 Mg Tablet) 5 mg PO BID [facility] Last Admin: 08/03/22 08:21 Dose: 5 mg Documented By: ANA CRISTINA Dextrose (Dextrose 50 % 25 Gm/50 Ml Syringe) 25 gm IVPUSH Q15M PRN; Protocol PRN Reason: per Hypoglycemia Standing Ord. Docusate Sodium (Docusate Sodium 100 Mg Capsule) 100 mg PO BID [facility] Last Admin: 08/03/22 08:21 Dose: 100 mg Documented By: ANA CRISTINA Ferrous Sulfate (Ferrous Sulfate 324 Mg Tablet.Dr) 324 mg PO BIDWM [facility] Last Admin: 08/03/22 08:21 Dose: 324 mg Documented By: ANA CRISTINA Finasteride (Finasteride 5 Mg Tablet) 5 mg PO DAILY [facility] Last Admin: 08/03/22 08:21 Dose: 5 mg Documented By: ANA CRISTINA Glucose (Glucose Gel 15 Gm Gel..Gram.) 15 gm PO Q15M PRN; Protocol PRN Reason: per Hypoglycemia Standing Ord. Insulin Glargine (Insulin Glargine,Hum.Rec.Anlog 100 Unit/Ml 10 Ml Vial) 20 unit SUBCUT DAILY@0730 [facility] Last Admin: 08/03/22 08:20 Dose: 20 unit Documented By: ANA CRISTINA Insulin Glargine (Insulin Glargine,Hum.Rec.Anlog 100 Unit/Ml 10 Ml Vial) 5 unit SUBCUT BEDTIME [facility] Last Admin: 08/02/22 21:59 Dose: 5 unit Documented By: TOY Insulin Human Lispro (Insulin Lispro 100 Unit/Ml 3 Ml Vial) 0 unit SUBCUT QIDACHS [facility]; Protocol Last Admin: 08/03/22 11:35 Dose: 8 unit Documented By: ANA CRISTINA Lidocaine (Lidocaine 4 % Patch Adh..Patch) 1 patch TRANSDERMA DAILY [facility]; Protocol Last Admin: 08/03/22 08:21 Dose: 1 patch Documented By: ANA CRISTINA Metoprolol Succinate (Metoprolol Succinate Er 100 Mg Tab.Er.24h) 100 mg PO DAILY [facility] Last Admin: 08/03/22 08:21 Dose: 100 mg Documented By: ANA CRISTINA Ondansetron HCl (Ondansetron Hcl 4 Mg/2 Ml Vial) 4 mg IVPUSH Q8H PRN PRN Reason: Nausea and Vomiting Last Admin: 07/07/22 01:05 Dose: 4 mg Documented By: CASTILM Ondansetron HCl (Ondansetron Hcl 4 Mg/2 Ml Vial) 4 mg IVPUSH ONCE PRN PRN Reason: Nausea and Vomiting Ondansetron HCl (Ondansetron Hcl 4 Mg/2 Ml Vial) 4 mg IVPUSH ONCE PRN PRN Reason: Nausea and Vomiting Oxycodone HCl (Oxycodone Hcl Immed Release 5 Mg Tablet) 5 mg PO Q4H PRN PRN Reason: Pain, Mild (Pain Scale 1-3) Last Admin: 08/03/22 14:18 Dose: 5 mg Documented By: DALEEMA Pharmacy Consult (Consult Rx Perform Med Rec) 1 each MISCELLANE ONCE PRN PRN Reason: Consult order Polyethylene Glycol (Polyethylene Glycol 3350 17 Gm Powd.Pack) 17 gm PO DAILY PRN PRN Reason: constipation Last Admin: 06/28/22 22:01 Dose: 17 gm Documented By: ADRIANA Polyethylene Glycol (Polyethylene Glycol 3350 17 Gm Powd.Pack) 17 gm PO DAILY [facility] Last Admin: 08/03/22 08:21 Dose: 17 gm Documented By: DALEEMA Sodium Chloride (0.9 % Sodium Chloride Flush 3 Ml Syringe) [facility] Last Admin: 08/03/22 08:22 Dose: 3 ml Documented By: DALEEMA Sodium Hypochlorite (Sodium Hypochlorite 0.25% 473 Ml Solution) 1 appl TOPICAL BID [facility] Last Admin: 08/03/22 08:22 Dose: 1 appl Documented By: DALEEMA Tamsulosin HCl (Tamsulosin Hcl 0.4 Mg Capsule) 0.8 mg PO DAILY [facility] Last Admin: 08/03/22 08:21 Dose: 0.8 mg Documented By: DALEEMA Urea (Urea 15 Gm Powder) 30 gm PO DAILY [facility] Last Admin: 08/03/22 08:20 Dose: 30 gm Documented By: DALEEMA Vitamin D (Cholecalciferol (Vitamin D3) 25 Mcg Tablet) 50 mcg PO DAILY [facility] Last Admin: 08/03/22 08:21 Dose: 50 mcg Documented By: DALEEMA Zinc Acetate/Diphenhydramine (Diphenhydramine Hcl 2 % Cream 28 Gm Tube) 1 appl TOPICAL TID PRN; Protocol PRN Reason: itching Labs CBC & Chem 7: 08/03/22 05:08 08/03/22 05:08 Labs: Laboratory Results - last 24 hr 08/02/22 08/02/22 08/03/22 17:16 21:50 05:08 MCV 85.1 MCH 27.1 MCHC 31.9 RDW 16.0 Plt Count 221 MPV 8.3 L Absolute Nucleated RBC 0.000 Nucleated RBC % (auto) 0.0 Anion Gap Estim Creat Clear Calc Estimated GFR POC Glucose 167 H 255 H Random Glucose Calcium 08/03/22 08/03/22 08/03/22 05:08 07:45 11:15 MCV MCH MCHC RDW Plt Count MPV Absolute Nucleated RBC Nucleated RBC % (auto) Anion Gap 11 L Estim Creat Clear Calc 115.1 Estimated GFR > 60 POC Glucose 136 H 281 H Random Glucose 148 H Calcium 7.8 L 08/03/22 15:05 MCV MCH MCHC RDW Plt Count MPV Absolute Nucleated RBC Nucleated RBC % (auto) Anion Gap Estim Creat Clear Calc Estimated GFR POC Glucose 246 H Random Glucose Calcium Assessment and Plan (1) SVT (supraventricular tachycardia): Status: Acute (2) Urinary retention: Status: Acute (3) Stage 4 decubitus ulcer: Status: Acute Plan 74yo M with DM2, HTN, HLD, chronic venous stasis dermatitis presented with mechanical fall, admitted for hypoxia due to PNA Sacral decubitus ulcer. Unstageable s/p 07/08,07/17 debridement of sacral decubitus ulcer, including skin, dermis, subcutaneous tissue and muscle; operative findings of necrotic skin, subcutaneous tissue and muscle. Ulcer measured approximately 10 cm x 10 cm in diameter with a depth of 4 cm s/p wound vac placement 07/22/22 - removed 07/25 after it became soiled surgery following - had planned for further debridement but patient continues to decline continue wet to dry dressings for now Atrial flutter/fib with RVR intermittently LVEF >70% continue toprol xl hold eliquis cardiology following episode of SVT vs atrial tachycardia 07/26 HR improved with IV Lopressor seen by cardiology, recommended to start amiodorone 400 bid, stop on 08/07/21 and start 200mg daily continue toprol XL blood pressure has remained stable. patient asymptomatic Acute blood loss anemia blood loss at site of decub ulcer patient received 2 unit of packed RBC continue ferrous sulfate b.i.d. H/H stable Traumatic SAH CT brain 06/26 New small areas of extra-axial hemorrhage adjacent to the left posterior parietal lobe, bilateral occipital lobes and in the occipital horns of both lateral ventricles, repeat CT 06/28 unchanged seen by neuro - AC was held for two weeks no headache, no dizziness No other complications Acute hypoxic respiratory failure due to PNA finished 10d of ABX back on room air Urinary retention failed voiding trial x2 continue tamsulosin and finasteride seen by urology, continue roberts upon discharge - outpatient urology follow up hyponatremia resolved continue urea cortisol, TSH wnl Mechanical fall difficulty ambulating; awaiting SNF placement generalized weakness 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 but not clinically NPH per Neurology acute/chronic hypoNa resolved incidental 1.3cm pancreatic lesions may reflect adjacent pancreatic cysts outpt MRI/MRCP DM2 continue Lantus, SSI HTN soft blood pressures losartan and hydralazine discontinued continue metoprolol HLD statin VTE ppx: EMORYs, rhonda bhatt attending Dr. redding Full code Disposition. Discharge to [facility] facility when medically clear In my clinical judgment, the patient requires continued inpatient hospitalization for the following reasons: SNF placement and follow-up on stage IV decub ulcer with need for further debridement Time Spent With Patient Time: Total time managing care of this patient today ____ minutes. Quality Stroke Does the patient have a stroke diagnosis?: No VTE Prior VTE?: No VTE Risk Level:: Medical - moderate - high VTE Device Contraindication: Treatment Not Indicated VTE Drug Contraindication: N/A - Med Ordered
[2022-08-03 19:25] VITALS: BP 123/60; PULSE 70; RESP 18; TEMP 36.7; O2SAT 97
[2022-08-03 19:41] LABS: Glucose, Whole Blood 208 mg/dL (60-115)
[2022-08-03] MEDS: Insulin Glargine,Hum.rec.anlog 100 UNIT/ML 10 ML VIAL SUBCUT (20:44)
[2022-08-04] VITALS (7 sets, daily range): BP systolic 101–144; BP diastolic 54–75; PULSE 76–97; RESP 16–19; TEMP 36.1–37.3; O2SAT 95–98
[2022-08-04] MEDS: oxyCODONE HCl Immed Release 5 MG TABLET PO ×4 (04:36→23:03)
[2022-08-04 07:10] LABS: Glucose, Whole Blood 123 mg/dL (60-115)
[2022-08-04] MEDS: Tamsulosin HCL 0.4 MG CAPSULE 0.8 MG PO (07:40)
[2022-08-04] MEDS: Finasteride 5 MG TABLET PO (07:40)
[2022-08-04] MEDS: Docusate Sodium 100 MG CAPSULE PO ×2 (07:41→20:39)
[2022-08-04] MEDS: Ferrous Sulfate 324 MG TABLET.DR PO ×2 (07:41→16:38)
[2022-08-04] MEDS: Amiodarone HCL 200 MG TABLET 400 MG PO ×2 (07:41→20:39)
[2022-08-04] MEDS: Cholecalciferol (Vitamin D3) 25 MCG TABLET 50 MCG PO (07:41)
[2022-08-04] MEDS: Metoprolol Succinate ER 100 MG TAB.ER.24H PO (07:41)
[2022-08-04] MEDS: polyethylene glycoL 3350 17 GM POWD.PACK PO (07:42)
[2022-08-04] MEDS: Lidocaine 4 % Patch ADH..PATCH 1 PATCH TRANSDERMA (07:42)
[2022-08-04] MEDS: Insulin Glargine,Hum.rec.anlog 100 UNIT/ML 10 ML VIAL 20 UNIT SUBCUT (07:42)
[2022-08-04] MEDS: 0.9 % Sodium Chloride Flush 3 ML SYRINGE IVFLUSH ×3 (07:42→20:41)
[2022-08-04 11:07] LABS: Glucose, Whole Blood 237 mg/dL (60-115)
[2022-08-04] MEDS: Insulin Lispro 100 UNIT/ML 3 ML VIAL SUBCUT ×3 (11:54→20:40)
--- NOTE | 2022-08-04 15:07 | P.PNIM_ITS ---
Subjective Subjective Date of Service: 08/04/22 Interval History: seen and examined this morning follow up for sacral wound no overnight events no fever or chills Review of Systems Review of Systems: Yes all other systems are reviewed and are negative Constitutional Constitutional: Denies chills and Denies fever(s) Cardiovascular Cardiovascular: Denies chest pain, Denies palpitations and Denies dyspnea Respiratory Respiratory: Denies cough and Denies dyspnea Gastrointestinal Gastrointestinal: Denies abdominal pain Endocrine Endocrine: Denies palpitations Physical Exam Vital Signs: Vital Signs: Last Vital Signs Temp 97 F 08/04/22 10:58 Pulse 79 08/04/22 10:58 Resp 19 08/04/22 10:58 BP 105/75 08/04/22 10:58 Pulse Ox 95 08/04/22 10:58 O2 Del Method 08/04/22 10:58 O2 Flow Rate 2 07/19/22 07:33 BMI result Body Mass Index 26.6 Const: General: comfortable, no acute distress, alert and awake Resp: Effort & Inspection: normal respiratory effort and able to speak in complete sentences Auscultation: clear to auscultation bilaterally Cardio: Rate: regular rate Heart sounds: no murmurs GI: Inspection: No distended Palpation (GI): Soft to palpation and nontender : Other: roberts present Skin: Other: Neuro: Other: grossly nonfocal Extrem: Other: able to move all 4 extremities spontaneously; trace leg edema General: Yes no pedal edema Objective Data Active Medications Acetaminophen (Acetaminophen 325 Mg Tablet) 650 mg PO Q6H PRN PRN Reason: Pain, Mild (Pain Scale 1-3) Last Admin: 08/03/22 14:18 Dose: 650 mg Documented By: ANA CRISTINA Amiodarone HCl (Amiodarone Hcl 200 Mg Tablet) 400 mg PO BID [facility] Stop: 08/07/22 10:10 Last Admin: 08/04/22 07:41 Dose: 400 mg Documented By: JETT Amiodarone HCl (Amiodarone Hcl 200 Mg Tablet) 200 mg PO DAILY [facility] Apixaban (Apixaban 5 Mg Tablet) 5 mg PO BID [facility] Last Admin: 08/03/22 08:21 Dose: 5 mg Documented By: ANA CRISTINA Dextrose (Dextrose 50 % 25 Gm/50 Ml Syringe) 25 gm IVPUSH Q15M PRN; Protocol PRN Reason: per Hypoglycemia Standing Ord. Docusate Sodium (Docusate Sodium 100 Mg Capsule) 100 mg PO BID [facility] Last Admin: 08/04/22 07:41 Dose: 100 mg Documented By: JETT Ferrous Sulfate (Ferrous Sulfate 324 Mg Tablet.Dr) 324 mg PO BIDWM [facility] Last Admin: 08/04/22 07:41 Dose: 324 mg Documented By: JETT Finasteride (Finasteride 5 Mg Tablet) 5 mg PO DAILY [facility] Last Admin: 08/04/22 07:40 Dose: 5 mg Documented By: JETT Glucose (Glucose Gel 15 Gm Gel..Gram.) 15 gm PO Q15M PRN; Protocol PRN Reason: per Hypoglycemia Standing Ord. Insulin Glargine (Insulin Glargine,Hum.Rec.Anlog 100 Unit/Ml 10 Ml Vial) 20 unit SUBCUT DAILY@0730 [facility] Last Admin: 08/04/22 07:42 Dose: 20 unit Documented By: JETT Insulin Glargine (Insulin Glargine,Hum.Rec.Anlog 100 Unit/Ml 10 Ml Vial) 5 unit SUBCUT BEDTIME [facility] Last Admin: 08/03/22 20:44 Dose: 5 unit Documented By: ROMARISCinthya Insulin Human Lispro (Insulin Lispro 100 Unit/Ml 3 Ml Vial) 0 unit SUBCUT QIDACHS [facility]; Protocol Last Admin: 08/04/22 11:54 Dose: 6 unit Documented By: JETT Lidocaine (Lidocaine 4 % Patch Adh..Patch) 1 patch TRANSDERMA DAILY [facility]; Protoc ol Last Admin: 08/04/22 07:42 Dose: 1 patch Documented By: JETT Metoprolol Succinate (Metoprolol Succinate Er 100 Mg Tab.Er.24h) 100 mg PO DAILY [facility] Last Admin: 08/04/22 07:41 Dose: 100 mg Documented By: JETT Ondansetron HCl (Ondansetron Hcl 4 Mg/2 Ml Vial) 4 mg IVPUSH Q8H PRN PRN Reason: Nausea and Vomiting Last Admin: 07/07/22 01:05 Dose: 4 mg Documented By: MARIANN Ondansetron HCl (Ondansetron Hcl 4 Mg/2 Ml Vial) 4 mg IVPUSH ONCE PRN PRN Reason: Nausea and Vomiting Ondansetron HCl (Ondansetron Hcl 4 Mg/2 Ml Vial) 4 mg IVPUSH ONCE PRN PRN Reason: Nausea and Vomiting Oxycodone HCl (Oxycodone Hcl Immed Release 5 Mg Tablet) 5 mg PO Q4H PRN PRN Reason: Pain, Mild (Pain Scale 1-3) Last Admin: 08/04/22 14:43 Dose: 5 mg Documented By: BRENDA Pharmacy Consult (Consult Rx Perform Med Rec) 1 each MISCELLANE ONCE PRN PRN Reason: Consult order Polyethylene Glycol (Polyethylene Glycol 3350 17 Gm Powd.Pack) 17 gm PO DAILY PRN PRN Reason: constipation Last Admin: 06/28/22 22:01 Dose: 17 gm Documented By: ADRIANA Polyethylene Glycol (Polyethylene Glycol 3350 17 Gm Powd.Pack) 17 gm PO DAILY [facility] Last Admin: 08/04/22 07:42 Dose: 17 gm Documented By: JETT Sodium Chloride (0.9 % Sodium Chloride Flush 3 Ml Syringe) [facility] Last Admin: 08/04/22 07:42 Dose: 3 ml Documented By: JETT Sodium Hypochlorite (Sodium Hypochlorite 0.25% 473 Ml Solution) 1 appl TOPICAL BID [facility] Last Admin: 08/04/22 07:43 Dose: 1 appl Documented By: JETT Tamsulosin HCl (Tamsulosin Hcl 0.4 Mg Capsule) 0.8 mg PO DAILY [facility] Last Admin: 08/04/22 07:40 Dose: 0.8 mg Documented By: JETT Urea (Urea 15 Gm Powder) 30 gm PO DAILY [facility] Last Admin: 08/03/22 08:20 Dose: 30 gm Documented By: ANA CRISTINA Vitamin D (Cholecalciferol (Vitamin D3) 25 Mcg Tablet) 50 mcg PO DAILY [facility] Last Admin: 08/04/22 07:41 Dose: 50 mcg Documented By: JETT Zinc Acetate/Diphenhydramine (Diphenhydramine Hcl 2 % Cream 28 Gm Tube) 1 appl TOPICAL TID PRN; Protocol PRN Reason: itching Labs CBC & Chem 7: 08/03/22 05:08 08/03/22 05:08 Labs: Laboratory Results - last 24 hr 08/03/22 08/03/22 08/04/22 15:05 19:26 06:51 POC Glucose 246 H 208 H 123 H 08/04/22 10:58 POC Glucose 237 H Assessment and Plan (1) Status post excisional debridement: Status: Acute Plan 74yo M with DM2, HTN, HLD, chronic venous stasis dermatitis presented with mechanical fall, admitted for hypoxia due to PNA Sacral decubitus ulcer. Unstageable s/p 07/08,07/17 debridement of sacral decubitus ulcer, including skin, dermis, subcutaneous tissue and muscle; operative findings of necrotic skin, helton bcutaneous tissue and muscle. Ulcer measured approximately 10 cm x 10 cm in diameter with a depth of 4 cm s/p wound vac placement 07/22/22 - removed 07/25 after it became soiled surgery following - plan for debridement tomorrow Eliquis on hold continue wet to dry dressings for now Atrial flutter/fib with RVR intermittently LVEF >70% continue toprol xl hold eliquis episode of SVT vs atrial tachycardia 07/26 HR improved with IV Lopressor seen by cardiology, recommended to start amiodorone 400 bid, stop on 08/07/21 and start 200mg daily continue toprol XL blood pressure has remained stable. patient asymptomatic Acute blood loss anemia blood loss at site of decub ulcer patient received 2 unit of packed RBC continue ferrous sulfate b.i.d. H/H stable Traumatic SAH CT brain 06/26 New small areas of extra-axial hemorrhage adjacent to the left posterior parietal lobe, bilateral occipital lobes and in the occipital horns of both lateral ventricles, repeat CT 06/28 unchanged seen by neuro - AC was held for two weeks no headache, no dizziness No other complications Acute hypoxic respiratory failure due to PNA finished 10d of ABX back on room air Urinary retention failed voiding trial x2 continue tamsulosin and finasteride seen by urology, continue roberts upon discharge - outpatient urology follow up hyponatremia resolved stop urea cortisol, TSH wnl Mechanical fall difficulty ambulating; awaiting SNF placement generalized weakness 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 but not clinically NPH per Neurology incidental 1.3cm pancreatic lesions may reflect adjacent pancreatic cysts outpt MRI/MRCP DM2 continue Lantus, SSI HTN soft blood pressures losartan and hydralazine discontinued continue metoprolol HLD statin VTE ppx: SCDs, eliquis on hold for debridement attending Dr. Martinez Full code Disposition. Discharge to [facility] facility when medically clear In my clinical judgment, the patient requires continued inpatient hospitalization for the following reasons: SNF placement and follow-up on stage IV decub ulcer with need for further debridement Time Spent With Patient Time: Total time managing care of this patient today ____ minutes. Quality Stroke Does the patient have a stroke diagnosis?: No VTE Prior VTE?: No VTE Risk Level:: Medical - moderate - high VTE Device Contraindication: Treatment Not Indicated VTE Drug Contraindication: N/A - Med Ordered
--- NOTE | 2022-08-04 15:09 | PM.EVENT ---
Event Note Date of Service: 08/04/22 Event Note: pt with necrotic smelly large decubitus wound - agreeing to OR debridement tomorrow anticoag stopped npo tonight Time Spent With Patient Time: Total time managing care of this patient today ____ minutes.
[2022-08-04 15:48] LABS: Glucose, Whole Blood 255 mg/dL (60-115)
[2022-08-04 20:19] LABS: Glucose, Whole Blood 181 mg/dL (60-115)
[2022-08-04] MEDS: Insulin Glargine,Hum.rec.anlog 100 UNIT/ML 10 ML VIAL SUBCUT (20:37)
[2022-08-05] VITALS (9 sets, daily range): BP systolic 104–121; BP diastolic 46–59; PULSE 70–86; RESP 16–18; TEMP 36.1–36.6; O2SAT 94–100
[2022-08-05 08:02] LABS: Glucose, Whole Blood 101 mg/dL (60-115)
[2022-08-05] MEDS: Insulin Glargine,Hum.rec.anlog 100 UNIT/ML 10 ML VIAL 20 UNIT SUBCUT (09:05)
[2022-08-05] MEDS: Lidocaine 4 % Patch ADH..PATCH 1 PATCH TRANSDERMA (09:05)
[2022-08-05] MEDS: 0.9 % Sodium Chloride Flush 3 ML SYRINGE IVFLUSH ×2 (09:06→15:23)
--- NOTE | 2022-08-05 09:42 | HO.PM.IMPN ---
Subjective Subjective Date of Service: 08/05/22 Interval History: seen and examined this morning follow up for sacral wound no overnight events no fever or chills Review of Systems Review of Systems: Yes all other systems are reviewed and are negative Constitutional Constitutional: Denies chills and Denies fever(s) Cardiovascular Cardiovascular: Denies chest pain, Denies palpitations and Denies dyspnea Respiratory Respiratory: Denies cough and Denies dyspnea Gastrointestinal Gastrointestinal: Denies abdominal pain Endocrine Endocrine: Denies palpitations Physical Exam Vital Signs: Vital Signs: Last Vital Signs Temp 96.9 F 08/05/22 08:00 Pulse 80 08/05/22 08:00 Resp 18 08/05/22 08:00 BP 114/55 L 08/05/22 08:00 Pulse Ox 97 08/05/22 08:00 O2 Del Method 08/05/22 08:00 O2 Flow Rate 2 07/19/22 07:33 BMI result Body Mass Index 26.6 Appearing in no acute distress lung sounds are clear to auscultation heart regular rate rhythm, clear S1, S2 positive bowel sounds, abdomen is soft, nontender neuro patient is alert x3, no focal deficits Objective Data Active Medications Acetaminophen (Acetaminophen 325 Mg Tablet) 650 mg PO Q6H PRN PRN Reason: Pain, Mild (Pain Scale 1-3) Last Admin: 08/03/22 14:18 Dose: 650 mg Documented By: COTEMA Amiodarone HCl (Amiodarone Hcl 200 Mg Tablet) 400 mg PO BID [facility] Stop: 08/07/22 10:10 Last Admin: 08/04/22 20:39 Dose: 400 mg Documented By: TRINIRINL Amiodarone HCl (Amiodarone Hcl 200 Mg Tablet) 200 mg PO DAILY [facility] Apixaban (Apixaban 5 Mg Tablet) 5 mg PO BID [facility] Last Admin: 08/03/22 08:21 Dose: 5 mg Documented By: COTEMA Dextrose (Dextrose 50 % 25 Gm/50 Ml Syringe) 25 gm IVPUSH Q15M PRN; Protocol PRN Reason: per Hypoglycemia Standing Ord. Docusate Sodium (Docusate Sodium 100 Mg Capsule) 100 mg PO BID [facility] Last Admin: 08/04/22 20:39 Dose: 100 mg Documented By: TRINIRINRosales Ferrous Sulfate (Ferrous Sulfate 324 Mg Tablet.) 324 mg PO BIDWM [facility] Last Admin: 08/05/22 09:41 Dose: Not Given Documented By: NADEGE Non-Admin Reason: NPO Finasteride (Finasteride 5 Mg Tablet) 5 mg PO DAILY [facility] Last Admin: 08/04/22 07:40 Dose: 5 mg Documented By: JETT Glucose (Glucose Gel 15 Gm Gel..Gram.) 15 gm PO Q15M PRN; Protocol PRN Reason: per Hypoglycemia Standing Ord. Insulin Glargine (Insulin Glargine,Hum.Rec.Anlog 100 Unit/Ml 10 Ml Vial) 20 unit SUBCUT DAILY@0730 [facility] Last Admin: 08/05/22 09:05 Dose: 20 unit Documented By: NADEGE Insulin Glargine (Insulin Glargine,Hum.Rec.Anlog 100 Unit/Ml 10 Ml Vial) 5 unit SUBCUT BEDTIME [facility] Last Admin: 08/04/22 20:37 Dose: 5 unit Documented By: PATRICE Insulin Human Lispro (Insulin Lispro 100 Unit/Ml 3 Ml Vial) 0 unit SUBCUT QIDACHS [facility]; Protocol Last Admin: 08/05/22 09:04 Dose: Not Given Documented By: NADEGE Non-Admin Reason: No Insulin Coverage Lidocaine (Lidocaine 4 % Patch Adh..Patch) 1 patch TRANSDERMA DAILY [facility]; Protocol Last Admin: 08/05/22 09:05 Dose: 1 patch Documented By: NADEGE Metoprolol Succinate (Metoprolol Succinate Er 100 Mg Tab.Er.24h) 100 mg PO DAILY [facility] Last Admin: 08/04/22 07:41 Dose: 100 mg Documented By: JETT Ondansetron HCl (Ondansetron Hcl 4 Mg/2 Ml Vial) 4 mg IVPUSH Q8H PRN PRN Reason: Nausea and Vomiting Last Admin: 07/07/22 01:05 Dose: 4 mg Documented By: MARIANN Ondansetron HCl (Ondansetron Hcl 4 Mg/2 Ml Vial) 4 mg IVPUSH ONCE PRN PRN Reason: Nausea and Vomiting Ondansetron HCl (Ondansetron Hcl 4 Mg/2 Ml Vial) 4 mg IVPUSH ONCE PRN PRN Reason: Nausea and Vomiting Oxycodone HCl (Oxycodone Hcl Immed Release 5 Mg Tablet) 5 mg PO Q4H PRN PRN Reason: Pain, Mild (Pain Scale 1-3) Last Admin: 08/04/22 23:03 Dose: 5 mg Documented By: PATRICE Pharmacy Consult (Consult Rx Perform Med Rec) 1 each MISCELLANE ONCE PRN PRN Reason: Consult order Polyethylene Glycol (Polyethylene Glycol 3350 17 Gm Powd.Pack) 17 gm PO DAILY PRN PRN Reason: constipation Last Admin: 06/28/22 22:01 Dose: 17 gm Documented By: ADRIANA Polyethylene Glycol (Polyethylene Glycol 3350 17 Gm Powd.Pack) 17 gm PO DAILY [facility] Last Admin: 08/04/22 07:42 Dose: 17 gm Documented By: JETT Sodium Chloride (0.9 % Sodium Chloride Flush 3 Ml Syringe) 3 ml IVFLUSH QSHIFT [facility] Last Admin: 08/05/22 09:06 Dose: 3 ml Documented By: NADEGE Sodium Hypochlorite (Sodium Hypochlorite 0.25% 473 Ml Solution) 1 appl TOPICAL BID [facility] Last Admin: 08/04/22 20:43 Dose: 1 appl Documented By: PATRICE Tamsulosin HCl (Tamsulosin Hcl 0.4 Mg Capsule) 0.8 mg PO DAILY [facility] Last Admin: 08/04/22 07:40 Dose: 0.8 mg Documented By: JETT Vitamin D (Cholecalciferol (Vitamin D3) 25 Mcg Tablet) 50 mcg PO DAILY [facility] Last Admin: 08/04/22 07:41 Dose: 50 mcg Documented By: JETT Zinc Acetate/Diphenhydramine (Diphenhydramine Hcl 2 % Cream 28 Gm Tube) 1 appl TOPICAL TID PRN; Protocol PRN Reason: itching Labs CBC & Chem 7: 08/03/22 05:08 08/03/22 05:08 Labs: Laboratory Results - last 24 hr 08/04/22 08/04/22 08/04/22 10:58 15:43 19:02 POC Glucose 237 H 255 H 181 H 08/05/22 07:35 POC Glucose 101 Assessment and Plan (1) Status post excisional debridement: Status: Acute Plan 74yo M with DM2, HTN, HLD, chronic venous stasis dermatitis presented with mechanical fall, admitted for hypoxia due to PNA Sacral decubitus ulcer. Unstageable s/p 07/08,07/17 debridement of sacral decubitus ulcer, including skin, dermis, subcutaneous tissue and muscle; operative findings of necrotic skin, subcutaneous tissue and muscle. Ulcer measured approximately 10 cm x 10 cm in diameter with a depth of 4 cm s/p wound vac placement 07/22/22 - removed 07/25 after it became soiled surgery following Eliquis on hold continue wet to dry dressings for now plan for debridement today Atrial flutter/fib with RVR intermittently LVEF >70% continue toprol xl hold eliquis for debridement episode of SVT vs atrial tachycardia 07/26 HR improved with IV Lopressor seen by cardiology, recommended to start amiodorone 400 bid, stop on 08/07/21 and start 200mg daily continue toprol XL blood pressure has remained stable. patient asymptomatic Acute blood loss anemia s/p blood loss at site of decub ulcer patient received 2 unit of packed RBC continue ferrous sulfate b.i.d. H/H stable Traumatic SAH CT brain 06/26 New small areas of extra-axial hemorrhage adjacent to the left posterior parietal lobe, bilateral occipital lobes and in the occipital horns of both lateral ventricles, repeat CT 06/28 unchanged seen by neuro - AC was held for two weeks no headache, no dizziness No other complications Acute hypoxic respiratory failure due to PNA finished 10d of ABX back on room air Urinary retention failed voiding trial x2 continue tamsulosin and finasteride seen by urology, continue roberts upon discharge - outpatient urology follow up hyponatremia resolved stop urea cortisol, TSH wnl Mechanical fall difficulty ambulating; awaiting SNF placement generalized weakness 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 but not clinically NPH per Neurology incidental 1.3cm pancreatic lesions may reflect adjacent pancreatic cysts outpt MRI/MRCP DM2 continue Lantus, SSI HTN soft blood pressures losartan and hydralazine discontinued continue metoprolol HLD statin VTE ppx: SCDs, eliquis on hold for debridement attending Dr. Linares Full code Disposition. 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 Quality Stroke Does the patient have a stroke diagnosis?: No VTE Prior VTE?: No VTE Risk Level:: Medical - moderate - high VTE Device Contraindication: Treatment Not Indicated VTE Drug Contraindication: N/A - Med Ordered
--- NOTE | 2022-08-05 13:06 | PM.EVENT ---
Event Note Date of Service: 08/05/22 Event Note: large decubitus muscle down to bone and muscle and tendon - debrided dressings placed needs wound vac replaced Time Spent With Patient Time: Total time managing care of this patient today ____ minutes.
--- NOTE | 2022-08-05 13:13 | W.PM.OPN ---
Operative Note Operative Note Date of Service: 08/05/22 Narrative: preoperative diagnosis-- necrotic sacral decubitus ulcer postop diagnosis-- same procedure-- debridement of necrotic sacral decubitus ulcer surgeon-- [place] anesthesia-- Ila rodriguez the patient is a 81-year-old male who has had mobility issues and developed a large sacral decubitus wound. He has had this debrided several weeks ago but has ongoing a Necrotic tissue. Wound VAC has been held. Comes in now for debridement. procedure-- patient was brought to the operative room and under anesthesia guidance was intubated. He had compression stockings placed before induction. He was positioned right side down and secured questioned on the table. The sacral wound was cleaned with Betadine and prepped and draped in standard surgical fashion. Using a 10 blade scalpel sharp debridement excisional debridement of necrotic fascia muscle fat was carried out a specially along the bony prominence of the lower sacral and coccyx bones. The entire wound was scraped with a 10 blade such that the hand fur cleaner fat and muscle so will areas were debrided of slough and exudate. Good bleeding tissue was obtained throughout. Hemostasis was achieved with some cautery and Surgicel. Betadine dressing was placed. Patient was extubated returned stable to the recovery room. At the end of the case all sponge instrument needle counts were correct. Estimated blood loss was less than 10 cc. No specimen was sent.
--- NOTE | 2022-08-05 13:38 | PC.NURSE ---
1339 PATIENT TRANSPORTED IN BED TO INPATIENT ROOM. AWAKE CONVERSING RESP EASY REGULAR NO COMPLAINTS OF PAIN.
[2022-08-05 14:26] LABS: Glucose, Whole Blood 109 mg/dL (60-115)
--- NOTE | 2022-08-05 15:16 | MHC.CLN ---
F/U PO INTAKE VARIABLE DIET RX: REGULAR-APPROPRIATE SUPPLEMENT TO OPTIMIZE NUTRITION FOR WOUND HEALING PT RECEIVING ENSURE TID PLUS ANDREZ BID PROVIDES ADDITIONAL 1210 KCALS, 65 G PROTEIN WITH 100% ACCEPTANCE CONTINUE TO MONITOR PO INTAKE CLOSELY
[2022-08-05 16:20] LABS: Glucose, Whole Blood 222 mg/dL (60-115)
[2022-08-05] MEDS: Ferrous Sulfate 324 MG TABLET.DR PO (16:37)
[2022-08-05] MEDS: Insulin Lispro 100 UNIT/ML 3 ML VIAL SUBCUT ×2 (16:37→20:25)
[2022-08-05 20:17] LABS: Glucose, Whole Blood 216 mg/dL (60-115)
[2022-08-05] MEDS: Amiodarone HCL 200 MG TABLET 400 MG PO (20:25)
[2022-08-05] MEDS: Docusate Sodium 100 MG CAPSULE PO (20:25)
[2022-08-05] MEDS: Insulin Glargine,Hum.rec.anlog 100 UNIT/ML 10 ML VIAL SUBCUT (20:26)
[2022-08-06] VITALS (7 sets, daily range): BP systolic 96–139; BP diastolic 50–71; PULSE 70–85; RESP 15–20; TEMP 36.3–36.9; O2SAT 95–98
[2022-08-06 07:35] LABS: Glucose, Whole Blood 196 mg/dL (60-115)
[2022-08-06] MEDS: Finasteride 5 MG TABLET PO (08:06)
[2022-08-06] MEDS: Ferrous Sulfate 324 MG TABLET.DR PO ×2 (08:07→16:52)
[2022-08-06] MEDS: Docusate Sodium 100 MG CAPSULE PO ×2 (08:07→21:19)
[2022-08-06] MEDS: Tamsulosin HCL 0.4 MG CAPSULE 0.8 MG PO (08:07)
[2022-08-06] MEDS: Metoprolol Succinate ER 100 MG TAB.ER.24H PO ×2 (08:07→08:13)
[2022-08-06] MEDS: Amiodarone HCL 200 MG TABLET PO (08:07)
[2022-08-06] MEDS: Cholecalciferol (Vitamin D3) 25 MCG TABLET 50 MCG PO (08:08)
[2022-08-06] MEDS: Insulin Glargine,Hum.rec.anlog 100 UNIT/ML 10 ML VIAL 20 UNIT SUBCUT (08:09)
[2022-08-06] MEDS: Insulin Lispro 100 UNIT/ML 3 ML VIAL SUBCUT ×4 (08:09→21:19)
[2022-08-06] MEDS: 0.9 % Sodium Chloride Flush 3 ML SYRINGE IVFLUSH ×3 (08:15→21:28)
[2022-08-06] MEDS: Lidocaine 4 % Patch ADH..PATCH 1 PATCH TRANSDERMA (08:16)
[2022-08-06] MEDS: polyethylene glycoL 3350 17 GM POWD.PACK PO (08:19)
[2022-08-06] MEDS: Amiodarone HCL 200 MG TABLET 400 MG PO ×2 (08:26→21:19)
[2022-08-06] MEDS: Apixaban 5 MG TABLET PO ×2 (09:35→21:19)
--- NOTE | 2022-08-06 09:54 | P.PNIM_ITS ---
Subjective Subjective Date of Service: 08/06/22 Interval History: seen and examined this morning follow up for sacral wound no overnight events no fever or chills Review of Systems Review of Systems: Yes all other systems are reviewed and are negative Constitutional Constitutional: Denies chills and Denies fever(s) Cardiovascular Cardiovascular: Denies chest pain, Denies palpitations and Denies dyspnea Respiratory Respiratory: Denies cough and Denies dyspnea Gastrointestinal Gastrointestinal: Denies abdominal pain Endocrine Endocrine: Denies palpitations Physical Exam Vital Signs: Vital Signs: Last Vital Signs Temp 97.7 F 08/06/22 08:00 Pulse 81 08/06/22 08:00 Resp 18 08/06/22 08:00 BP 126/71 08/06/22 08:00 Pulse Ox 96 08/06/22 08:00 O2 Del Method 08/06/22 08:00 O2 Flow Rate 4 08/05/22 13:22 BMI result Body Mass Index 26.6 Appearing in no acute distress lung sounds are clear to auscultation heart regular rate rhythm, clear S1, S2 positive bowel sounds, abdomen is soft, nontender neuro patient is alert x3, no focal deficits unstageable sacral ulcer Objective Data Active Medications Acetaminophen (Acetaminophen 325 Mg Tablet) 650 mg PO Q6H PRN PRN Reason: Pain, Mild (Pain Scale 1-3) Last Admin: 08/03/22 14:18 Dose: 650 mg Documented By: ANA CRISTINA Amiodarone HCl (Amiodarone Hcl 200 Mg Tablet) 400 mg PO BID [facility] Stop: 08/07/22 10:10 Last Admin: 08/06/22 08:26 Dose: 400 mg Documented By: ADRIANA Amiodarone HCl (Amiodarone Hcl 200 Mg Tablet) 200 mg PO DAILY [facility] Last Admin: 08/06/22 08:07 Dose: 200 mg Documented By: ADRIANA Apixaban (Apixaban 5 Mg Tablet) 5 mg PO BID [facility] Last Admin: 08/06/22 09:35 Dose: 5 mg Documented By: ADRIANA Dextrose (Dextrose 50 % 25 Gm/50 Ml Syringe) 25 gm IVPUSH Q15M PRN; Protocol PRN Reason: per Hypoglycemia Standing Ord. Docusate Sodium (Docusate Sodium 100 Mg Capsule) 100 mg PO BID [facility] Last Admin: 08/06/22 08:07 Dose: 100 mg Documented By: ADRIANA Ferrous Sulfate (Ferrous Sulfate 324 Mg Tablet.) 324 mg PO BIDWM [facility] Last Admin: 08/06/22 08:07 Dose: 324 mg Documented By: ADRIANA Finasteride (Finasteride 5 Mg Tablet) 5 mg PO DAILY [facility] Last Admin: 08/06/22 08:06 Dose: 5 mg Documented By: ADRIANA Glucose (Glucose Gel 15 Gm Gel..Gram.) 15 gm PO Q15M PRN; Protocol PRN Reason: per Hypoglycemia Standing Ord. Insulin Glargine (Insulin Glargine,Hum.Rec.Anlog 100 Unit/Ml 10 Ml Vial) 20 unit SUBCUT DAILY@0730 [facility] Last Admin: 08/06/22 08:09 Dose: 20 unit Documented By: ADRIANA Insulin Glargine (Insulin Glargine,Hum.Rec.Anlog 100 Unit/Ml 10 Ml Vial) 5 unit SUBCUT BEDTIME [facility] Last Admin: 08/05/22 20:26 Dose: 5 unit Documented By: MARK Insulin Human Lispro (Insulin Lispro 100 Unit/Ml 3 Ml Vial) 0 unit SUBCUT QIDACHS [facility]; Protocol Last Admin: 08/06/22 08:09 Dose: 4 unit Documented By: ADRIANA Lidocaine (Lidocaine 4 % Patch Adh..Patch) 1 patch TRANSDERMA DAILY [facility]; Protocol Last Admin: 08/06/22 08:16 Dose: 1 patch Documented By: ADRIANA Metoprolol Succinate (Metoprolol Succinate Er 100 Mg Tab.Er.24h) 100 mg PO DAILY [facility] Last Admin: 08/06/22 08:13 Dose: 100 mg Documented By: ADRIANA Ondansetron HCl (Ondansetron Hcl 4 Mg/2 Ml Vial) 4 mg IVPUSH Q8H PRN PRN Reason: Nausea and Vomiting Last Admin: 07/07/22 01:05 Dose: 4 mg Documented By: MARIANN Ondansetron HCl (Ondansetron Hcl 4 Mg/2 Ml Vial) 4 mg IVPUSH ONCE PRN PRN Reason: Nausea and Vomiting Ondansetron HCl (Ondansetron Hcl 4 Mg/2 Ml Vial) 4 mg IVPUSH ONCE PRN PRN Reason: Nausea and Vomiting Pharmacy Consult (Consult Rx Perform Med Rec) 1 each MISCELLANE ONCE PRN PRN Reason: Consult order Polyethylene Glycol (Polyethylene Glycol 3350 17 Gm Powd.Pack) 17 gm PO DAILY PRN PRN Reason: constipation Last Admin: 08/06/22 08:19 Dose: 17 gm Documented By: ADRIANA Polyethylene Glycol (Polyethylene Glycol 3350 17 Gm Powd.Pack) 17 gm PO DAILY [facility] Last Admin: 08/06/22 09:34 Dose: Not Given Documented By: ADRIANA Non-Admin Reason: given PRN Sodium Chloride (0.9 % Sodium Chloride Flush 3 Ml Syringe) 3 ml IVFLUSH QSHIFT [facility] Last Admin: 08/06/22 08:15 Dose: 3 ml Documented By: ADRIANA Sodium Hypochlorite (Sodium Hypochlorite 0.25% 473 Ml Solution) 1 appl TOPICAL BID [facility] Last Admin: 08/06/22 08:17 Dose: 1 appl Documented By: ARDIANA Tamsulosin HCl (Tamsulosin Hcl 0.4 Mg Capsule) 0.8 mg PO DAILY [facility] Last Admin: 08/06/22 08:07 Dose: 0.8 mg Documented By: ADRIANA Vitamin D (Cholecalciferol (Vitamin D3) 25 Mcg Tablet) 50 mcg PO DAILY [facility] Last Admin: 08/06/22 08:08 Dose: 50 mcg Documented By: ADRIANA Zinc Acetate/Diphenhydramine (Diphenhydramine Hcl 2 % Cream 28 Gm Tube) 1 appl TOPICAL TID PRN; Protocol PRN Reason: itching Labs CBC & Chem 7: 08/03/22 05:08 08/03/22 05:08 Labs: Laboratory Results - last 24 hr 08/05/22 08/05/22 08/05/22 14:22 16:14 19:41 POC Glucose 109 222 H 216 H 08/06/22 07:20 POC Glucose 196 H Assessment and Plan (1) Status post excisional debridement: Status: Acute Plan 74yo M with DM2, HTN, HLD, chronic venous stasis dermatitis presented with mechanical fall, admitted for hypoxia due to PNA Sacral decubitus ulcer. Unstageable s/p 07/08,07/17 debridement of sacral decubitus ulcer, including skin, dermis, subcutaneous tissue and muscle; operative findings of necrotic skin, subcutaneous tissue and muscle. Ulcer measured approximately 10 cm x 10 cm in diameter with a depth of 4 cm s/p wound vac placement 07/22/22 - removed 07/25 after it became soiled surgery following Eliquis on hold continue wet to dry dressings for now plan for debridement today Atrial flutter/fib with RVR intermittently LVEF >70% continue toprol xl hold eliquis for debridement episode of SVT vs atrial tachycardia 07/26 HR improved with IV Lopressor seen by cardiology, recommended to start amiodorone 400 bid, stop on 08/07/21 and start 200mg daily continue toprol XL blood pressure has remained stable. patient asymptomatic Acute blood loss anemia s/p blood loss at site of decub ulcer patient received 2 unit of packed RBC continue ferrous sulfate b.i.d. H/H stable Traumatic SAH CT brain 06/26 New small areas of extra-axial hemorrhage adjacent to the left posterior parietal lobe, bilateral occipital lobes and in the occipital horns of both lateral ventricles, repeat CT 06/28 unchanged seen by neuro - AC was held for two weeks no headache, no dizziness No other complications Acute hypoxic respiratory failure due to PNA finished 10d of ABX back on room air Urinary retention failed voiding trial x2 continue tamsulosin and finasteride seen by urology, continue roberts upon discharge - outpatient urology follow up hyponatremia resolved stop urea cortisol, TSH wnl Mechanical fall difficulty ambulating; awaiting SNF placement generalized weakness 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 but not clinically NPH per Neurology incidental 1.3cm pancreatic lesions may reflect adjacent pancreatic cysts outpt MRI/MRCP DM2 continue Lantus, SSI HTN soft blood pressures losartan and hydralazine discontinued continue metoprolol HLD statin VTE ppx: SCDs, eliquis on hold for debridement attending Dr. Contreras Full code Disposition. 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 Quality Stroke Does the patient have a stroke diagnosis?: No VTE Prior VTE?: No VTE Risk Level:: Medical - moderate - high VTE Device Contraindication: Treatment Not Indicated VTE Drug Contraindication: N/A - Med Ordered
[2022-08-06 11:28] LABS: Glucose, Whole Blood 287 mg/dL (60-115)
--- NOTE | 2022-08-06 11:57 | HO.POSTANES ---
Post Anesthesia Evaluation Post Anesthesia Evaluation Vital Signs: Vital Signs Temp Pulse Resp BP Pulse Ox O2 Del Method 08/06/22 08:00 97.7 F 81 18 126/71 96 Room Air 08/06/22 03:49 97.5 F 85 15 139/65 98 Room Air 08/06/22 00:00 97.3 F 75 16 125/61 96 Room Air Anesthesia: General Mental Status: Awake Pain Control: Satisfactory Nausea/Vomiting: None Hydration: Adequate Anesthesia-Related Issues: No Anes. Related Issues
[2022-08-06 15:55] LABS: Glucose, Whole Blood 223 mg/dL (60-115)
[2022-08-06] MEDS: Acetaminophen 325 MG TABLET 650 MG PO (16:56)
[2022-08-06 19:28] LABS: Glucose, Whole Blood 228 mg/dL (60-115)
[2022-08-06] MEDS: Insulin Glargine,Hum.rec.anlog 100 UNIT/ML 10 ML VIAL SUBCUT (21:19)
[2022-08-06] MEDS: oxyCODONE HCl Immed Release 5 MG TABLET PO (21:32)
[2022-08-07 04:00] VITALS: BP 124/58; PULSE 76; RESP 16; TEMP 36.3; O2SAT 97
[2022-08-07] MEDS: oxyCODONE HCl Immed Release 5 MG TABLET PO ×3 (05:56→21:12)
[2022-08-07 07:34] LABS: Glucose, Whole Blood 132 mg/dL (60-115)
[2022-08-07 07:54] VITALS: BP 122/57; PULSE 80; RESP 20; TEMP 36.6; O2SAT 96
[2022-08-07] MEDS: Cholecalciferol (Vitamin D3) 25 MCG TABLET 50 MCG PO (08:24)
[2022-08-07] MEDS: Tamsulosin HCL 0.4 MG CAPSULE 0.8 MG PO (08:24)
[2022-08-07] MEDS: polyethylene glycoL 3350 17 GM POWD.PACK PO (08:24)
[2022-08-07] MEDS: Lidocaine 4 % Patch ADH..PATCH 1 PATCH TRANSDERMA (08:24)
[2022-08-07] MEDS: Apixaban 5 MG TABLET PO ×2 (08:24→21:12)
[2022-08-07] MEDS: Insulin Glargine,Hum.rec.anlog 100 UNIT/ML 10 ML VIAL 20 UNIT SUBCUT (08:24)
[2022-08-07] MEDS: Finasteride 5 MG TABLET PO (08:24)
[2022-08-07] MEDS: Amiodarone HCL 200 MG TABLET 400 MG PO (08:25)
[2022-08-07] MEDS: Metoprolol Succinate ER 100 MG TAB.ER.24H PO (08:25)
[2022-08-07] MEDS: Acetaminophen 325 MG TABLET 650 MG PO ×2 (08:25→15:37)
[2022-08-07] MEDS: 0.9 % Sodium Chloride Flush 3 ML SYRINGE IVFLUSH ×3 (08:25→21:15)
[2022-08-07] MEDS: Ferrous Sulfate 324 MG TABLET.DR PO ×2 (08:25→15:37)
[2022-08-07] MEDS: Docusate Sodium 100 MG CAPSULE PO ×2 (08:25→21:12)
--- NOTE | 2022-08-07 09:28 | P.PNIM_ITS ---
Subjective Subjective Date of Service: 08/07/22 Interval History: seen and examined this morning follow up for sacral wound no overnight events no fever or chills Review of Systems Review of Systems: Yes all other systems are reviewed and are negative Constitutional Constitutional: Denies chills and Denies fever(s) Cardiovascular Cardiovascular: Denies chest pain, Denies palpitations and Denies dyspnea Respiratory Respiratory: Denies cough and Denies dyspnea Gastrointestinal Gastrointestinal: Denies abdominal pain Endocrine Endocrine: Denies palpitations Physical Exam Vital Signs: Vital Signs: Last Vital Signs Temp 97.8 F 08/07/22 07:54 Pulse 80 08/07/22 07:54 Resp 20 08/07/22 07:54 BP 122/57 L 08/07/22 07:54 Pulse Ox 96 08/07/22 07:54 O2 Del Method 08/07/22 07:54 O2 Flow Rate 4 08/05/22 13:22 BMI result Body Mass Index 26.6 Appearing in no acute distress lung sounds are clear to auscultation heart regular rate rhythm, clear S1, S2 positive bowel sounds, abdomen is soft, nontender neuro patient is alert x3, no focal deficits Unstageable decubitus ulcer present Objective Data Active Medications Acetaminophen (Acetaminophen 325 Mg Tablet) 650 mg PO Q6H PRN PRN Reason: Pain, Mild (Pain Scale 1-3) Last Admin: 08/07/22 08:25 Dose: 650 mg Documented By: DALEEMA Amiodarone HCl (Amiodarone Hcl 200 Mg Tablet) 400 mg PO BID [facility] Stop: 08/07/22 10:10 Last Admin: 08/07/22 08:25 Dose: 400 mg Documented By: DALEEMA Amiodarone HCl (Amiodarone Hcl 200 Mg Tablet) 200 mg PO DAILY [facility] Last Admin: 08/06/22 08:07 Dose: 200 mg Documented By: ADRIANA Apixaban (Apixaban 5 Mg Tablet) 5 mg PO BID [facility] Last Admin: 08/07/22 08:24 Dose: 5 mg Documented By: DALEEMA Dextrose (Dextrose 50 % 25 Gm/50 Ml Syringe) 25 gm IVPUSH Q15M PRN; Protocol PRN Reason: per Hypoglycemia Standing Ord. Docusate Sodium (Docusate Sodium 100 Mg Capsule) 100 mg PO BID [facility] Last Admin: 08/07/22 08:25 Dose: 100 mg Documented By: ANA CRISTINA Ferrous Sulfate (Ferrous Sulfate 324 Mg Tablet.Dr) 324 mg PO BIDWM [facility] Last Admin: 08/07/22 08:25 Dose: 324 mg Documented By: ANA CRISTINA Finasteride (Finasteride 5 Mg Tablet) 5 mg PO DAILY [facility] Last Admin: 08/07/22 08:24 Dose: 5 mg Documented By: ANA CRISTINA Glucose (Glucose Gel 15 Gm Gel..Gram.) 15 gm PO Q15M PRN; Protocol PRN Reason: per Hypoglycemia Standing Ord. Insulin Glargine (Insulin Glargine,Hum.Rec.Anlog 100 Unit/Ml 10 Ml Vial) 20 unit SUBCUT DAILY@0730 [facility] Last Admin: 08/07/22 08:24 Dose: 20 unit Documented By: ANA CRISTINA Insulin Glargine (Insulin Glargine,Hum.Rec.Anlog 100 Unit/Ml 10 Ml Vial) 5 unit SUBCUT BEDTIME [facility] Last Admin: 08/06/22 21:19 Dose: 5 unit Documented By: TOY Insulin Human Lispro (Insulin Lispro 100 Unit/Ml 3 Ml Vial) 0 unit SUBCUT QIDACHS [facility]; Protocol Last Admin: 08/07/22 08:01 Dose: Not Given Documented By: ANA CRISTINA Non-Admin Reason: No Insulin Coverage Lidocaine (Lidocaine 4 % Patch Adh..Patch) 1 patch TRANSDERMA DAILY [facility]; Protocol Last Admin: 08/07/22 08:24 Dose: 1 patch Documented By: ANA CRISTINA Metoprolol Succinate (Metoprolol Succinate Er 100 Mg Tab.Er.24h) 100 mg PO DAILY [facility] Last Admin: 08/06/22 08:13 Dose: 100 mg Documented By: ADRIANA Ondansetron HCl (Ondansetron Hcl 4 Mg/2 Ml Vial) 4 mg IVPUSH Q8H PRN PRN Reason: Nausea and Vomiting Last Admin: 07/07/22 01:05 Dose: 4 mg Documented By: MARIANN Ondansetron HCl (Ondansetron Hcl 4 Mg/2 Ml Vial) 4 mg IVPUSH ONCE PRN PRN Reason: Nausea and Vomiting Ondansetron HCl (Ondansetron Hcl 4 Mg/2 Ml Vial) 4 mg IVPUSH ONCE PRN PRN Reason: Nausea and Vomiting Oxycodone HCl (Oxycodone Hcl Immed Release 5 Mg Tablet) 5 mg PO Q4H PRN PRN Reason: Pain, Severe (Pain Scale 7-10) Last Admin: 08/07/22 05:56 Dose: 5 mg Documented By: BRENDA Pharmacy Consult (Consult Rx Perform Med Rec) 1 each MISCELLANE ONCE PRN PRN Reason: Consult order Polyethylene Glycol (Polyethylene Glycol 3350 17 Gm Powd.Pack) 17 gm PO DAILY PRN PRN Reason: constipation Last Admin: 08/06/22 08:19 Dose: 17 gm Documented By: ADRIANA Polyethylene Glycol (Polyethylene Glycol 3350 17 Gm Powd.Pack) 17 gm PO DAILY [facility] Last Admin: 08/07/22 08:24 Dose: 17 gm Documented By: DALEEMA Sodium Chloride (0.9 % Sodium Chloride Flush 3 Ml Syringe) 3 ml IVFLUSH QSHIFT [facility] Last Admin: 08/07/22 08:25 Dose: 3 ml Documented By: DALEEMA Sodium Hypochlorite (Sodium Hypochlorite 0.25% 473 Ml Solution) 1 appl TOPICAL BID [facility] Last Admin: 08/07/22 08:28 Dose: 1 appl Documented By: DALEEMA Tamsulosin HCl (Tamsulosin Hcl 0.4 Mg Capsule) 0.8 mg PO DAILY [facility] Last Admin: 08/07/22 08:24 Dose: 0.8 mg Documented By: ANA CRISTINA Vitamin D (Cholecalciferol (Vitamin D3) 25 Mcg Tablet) 50 mcg PO DAILY [facility] Last Admin: 08/07/22 08:24 Dose: 50 mcg Documented By: ANA CRISTINA Zinc Acetate/Diphenhydramine (Diphenhydramine Hcl 2 % Cream 28 Gm Tube) 1 appl TOPICAL TID PRN; Protocol PRN Reason: itching Labs CBC & Chem 7: 08/03/22 05:08 08/03/22 05:08 Labs: Laboratory Results - last 24 hr 08/06/22 08/06/22 08/06/22 11:17 15:51 19:06 POC Glucose 287 H 223 H 228 H 08/07/22 07:29 POC Glucose 132 H Assessment and Plan (1) Status post excisional debridement: Status: Acute Plan 74yo M with DM2, HTN, HLD, chronic venous stasis dermatitis presented with mechanical fall, admitted for hypoxia due to PNA Sacral decubitus ulcer. Unstageable, necrotic 10cm x10 cm with 4 cm depth s/p debridements 07/08, 07/17, 08/05 s/p wound vac placement 07/22/22 - removed 07/25 after it became soiled surgery following Eliquis on hold continue wet to dry dressings for now Atrial flutter/fib with RVR intermittently LVEF >70% continue toprol xl hold eliquis for debridement episode of SVT vs atrial tachycardia 07/26 HR improved with IV Lopressor seen by cardiology, recommended to start amiodorone 400 bid, stop on 08/07/21 and start 200mg daily continue toprol XL blood pressure has remained stable. patient asymptomatic Acute blood loss anemia s/p blood loss at site of decub ulcer patient received 2 unit of packed RBC continue ferrous sulfate b.i.d. H/H stable Traumatic SAH CT brain 06/26 New small areas of extra-axial hemorrhage adjacent to the left posterior parietal lobe, bilateral occipital lobes and in the occipital horns of both lateral ventricles, repeat CT 06/28 unchanged seen by neuro - AC was held for two weeks no headache, no dizziness No other complications Acute hypoxic respiratory failure due to PNA finished 10d of ABX back on room air Urinary retention failed voiding trial x2 continue tamsulosin and finasteride seen by urology, continue roberts upon discharge - outpatient urology follow up hyponatremia resolved stop urea cortisol, TSH wnl Mechanical fall difficulty ambulating; awaiting SNF placement generalized weakness 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 but not clinically NPH per Neurology incidental 1.3cm pancreatic lesions may reflect adjacent pancreatic cysts outpt MRI/MRCP DM2 continue Lantus, SSI HTN soft blood pressures losartan and hydralazine discontinued continue metoprolol HLD statin VTE ppx: SCDs, eliquis on hold for debridement attending Dr. Contreras Full code Disposition. 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 Quality Stroke Does the patient have a stroke diagnosis?: No VTE Prior VTE?: No VTE Risk Level:: Medical - moderate - high VTE Device Contraindication: Treatment Not Indicated VTE Drug Contraindication: N/A - Med Ordered
[2022-08-07 10:59] LABS: Glucose, Whole Blood 297 mg/dL (60-115)
[2022-08-07 11:31] VITALS: BP 98/58; PULSE 63; RESP 20; TEMP 36.4; O2SAT 95
--- NOTE | 2022-08-07 11:51 | MHC.CLN ---
F/U PO INTAKE 50-100% DIET RX: REGULAR-APPROPRIATE RE-STARTED (08/06/22) ENSURE TID PLUS ANDREZ BID PROVIDES 1210 KCALS, 65 G PROTEIN WITH 100% ACCEPTANCE CONTINUE TO MONITOR PO INTAKE AND ENCOURAGE SUPPLEMENT FOR WOUND HEALING
[2022-08-07] MEDS: Insulin Lispro 100 UNIT/ML 3 ML VIAL SUBCUT ×3 (12:27→21:14)
--- NOTE | 2022-08-07 15:34 | MHC.CM.PN ---
EMR REVIEWED, PT MEDICALLY CLEARED FOR DC HOWEVER CM STILL HAS NO INTEREST OR BED OFFERS FOR STR W/TRANSITION TO LTC OR LTC, SNF REFERRAL UPDATED AND EXPANDED, CM WILL CONT TO FOLLOW REFERAL AND D/C NEEDS.
[2022-08-07 16:00] VITALS: BP 129/62; PULSE 77; RESP 16; TEMP 36.3; O2SAT 94
[2022-08-07 16:25] LABS: Glucose, Whole Blood 205 mg/dL (60-115)
[2022-08-07 20:00] VITALS: BP 124/57; PULSE 75; RESP 18; TEMP 36.4; O2SAT 94
[2022-08-07 20:56] LABS: Glucose, Whole Blood 308 mg/dL (60-115)
[2022-08-07] MEDS: Insulin Glargine,Hum.rec.anlog 100 UNIT/ML 10 ML VIAL SUBCUT (21:12)
[2022-08-07 23:31] VITALS: BP 125/58; PULSE 71; RESP 18; TEMP 36.8; O2SAT 98
[2022-08-08 04:00] VITALS: BP 126/57; PULSE 73; RESP 97; TEMP 36.4; O2SAT 98
[2022-08-08] MEDS: oxyCODONE HCl Immed Release 5 MG TABLET PO ×3 (06:20→21:05)
[2022-08-08 07:14] VITALS: BP 143/63; PULSE 78; RESP 16; TEMP 36.8; O2SAT 97
[2022-08-08 07:34] LABS: Glucose, Whole Blood 157 mg/dL (60-115)
[2022-08-08] MEDS: Metoprolol Succinate ER 100 MG TAB.ER.24H PO (08:04)
[2022-08-08] MEDS: Lidocaine 4 % Patch ADH..PATCH 1 PATCH TRANSDERMA (08:04)
[2022-08-08] MEDS: Cholecalciferol (Vitamin D3) 25 MCG TABLET 50 MCG PO (08:04)
[2022-08-08] MEDS: Apixaban 5 MG TABLET PO ×2 (08:04→21:05)
[2022-08-08] MEDS: Insulin Lispro 100 UNIT/ML 3 ML VIAL SUBCUT ×4 (08:05→21:07)
[2022-08-08] MEDS: Insulin Glargine,Hum.rec.anlog 100 UNIT/ML 10 ML VIAL 20 UNIT SUBCUT (08:05)
[2022-08-08] MEDS: Docusate Sodium 100 MG CAPSULE PO ×2 (08:05→21:05)
[2022-08-08] MEDS: Finasteride 5 MG TABLET PO (08:05)
[2022-08-08] MEDS: polyethylene glycoL 3350 17 GM POWD.PACK PO (08:05)
[2022-08-08] MEDS: Amiodarone HCL 200 MG TABLET PO (08:05)
[2022-08-08] MEDS: 0.9 % Sodium Chloride Flush 3 ML SYRINGE IVFLUSH ×3 (08:06→23:45)
[2022-08-08] MEDS: Ferrous Sulfate 324 MG TABLET.DR PO ×2 (08:06→16:58)
[2022-08-08] MEDS: Acetaminophen 325 MG TABLET 650 MG PO ×2 (08:06→21:06)
[2022-08-08] MEDS: Tamsulosin HCL 0.4 MG CAPSULE 0.8 MG PO (08:06)
--- NOTE | 2022-08-08 09:49 | HO.PM.IMPN ---
Subjective Subjective Date of Service: 08/08/22 Interval History: seen and examined this morning follow up for sacral wound no overnight events no fever or chills Review of Systems Review of Systems: Yes all other systems are reviewed and are negative Constitutional Constitutional: Denies chills and Denies fever(s) Cardiovascular Cardiovascular: Denies chest pain, Denies palpitations and Denies dyspnea Respiratory Respiratory: Denies cough and Denies dyspnea Gastrointestinal Gastrointestinal: Denies abdominal pain Endocrine Endocrine: Denies palpitations Physical Exam Vital Signs: Vital Signs: Last Vital Signs Temp 98.2 F 08/08/22 07:14 Pulse 78 08/08/22 07:14 Resp 16 08/08/22 07:14 BP 143/63 H 08/08/22 07:14 Pulse Ox 97 08/08/22 07:14 O2 Del Method 08/08/22 07:14 O2 Flow Rate 4 08/05/22 13:22 BMI result Body Mass Index 26.6 Appearing in no acute distress lung sounds are clear to auscultation heart regular rate rhythm, clear S1, S2 positive bowel sounds, abdomen is soft, nontender neuro patient is alert x3, no focal deficits Unstageable decubitus ulcer present Objective Data Active Medications Acetaminophen (Acetaminophen 325 Mg Tablet) 650 mg PO Q6H PRN PRN Reason: Pain, Mild (Pain Scale 1-3) Last Admin: 08/08/22 08:06 Dose: 650 mg Documented By: ANA CRISTINA Amiodarone HCl (Amiodarone Hcl 200 Mg Tablet) 200 mg PO DAILY [facility] Last Admin: 08/06/22 08:07 Dose: 200 mg Documented By: ADRIANA Apixaban (Apixaban 5 Mg Tablet) 5 mg PO BID [facility] Last Admin: 08/08/22 08:04 Dose: 5 mg Documented By: ANA CRISTINA Dextrose (Dextrose 50 % 25 Gm/50 Ml Syringe) 25 gm IVPUSH Q15M PRN; Protocol PRN Reason: per Hypoglycemia Standing Ord. Docusate Sodium (Docusate Sodium 100 Mg Capsule) 100 mg PO BID [facility] Last Admin: 08/08/22 08:05 Dose: 100 mg Documented By: ANA CRISTINA Ferrous Sulfate (Ferrous Sulfate 324 Mg Tablet.) 324 mg PO BIDWM [facility] Last Admin: 08/08/22 08:06 Dose: 324 mg Documented By: ANA CRISTINA Finasteride (Finasteride 5 Mg Tablet) 5 mg PO DAILY [facility] Last Admin: 08/08/22 08:05 Dose: 5 mg Documented By: ANA CRISTINA Glucose (Glucose Gel 15 Gm Gel..Gram.) 15 gm PO Q15M PRN; Protocol PRN Reason: per Hypoglycemia Standing Ord. Insulin Glargine (Insulin Glargine,Hum.Rec.Anlog 100 Unit/Ml 10 Ml Vial) 20 unit SUBCUT DAILY@0730 [facility] Last Admin: 08/08/22 08:05 Dose: 20 unit Documented By: ANA CRISTINA Insulin Glargine (Insulin Glargine,Hum.Rec.Anlog 100 Unit/Ml 10 Ml Vial) 5 unit SUBCUT BEDTIME [facility] Last Admin: 08/07/22 21:12 Dose: 5 unit Documented By: TOY Insulin Human Lispro (Insulin Lispro 100 Unit/Ml 3 Ml Vial) 0 unit SUBCUT QIDACHS [facility]; Protocol Last Admin: 08/08/22 08:05 Dose: 4 unit Documented By: ANA CRISTINA Lidocaine (Lidocaine 4 % Patch Adh..Patch) 1 patch TRANSDERMA DAILY [facility]; Protocol Last Admin: 08/08/22 08:04 Dose: 1 patch Documented By: ANA CRISTINA Metoprolol Succinate (Metoprolol Succinate Er 100 Mg Tab.Er.24h) 100 mg PO DAILY [facility] Last Admin: 08/08/22 08:04 Dose: 100 mg Documented By: ANA CRISTINA Ondansetron HCl (Ondansetron Hcl 4 Mg/2 Ml Vial) 4 mg IVPUSH Q8H PRN PRN Reason: Nausea and Vomiting Last Admin: 07/07/22 01:05 Dose: 4 mg Documented By: MARIANN Ondansetron HCl (Ondansetron Hcl 4 Mg/2 Ml Vial) 4 mg IVPUSH ONCE PRN PRN Reason: Nausea and Vomiting Ondansetron HCl (Ondansetron Hcl 4 Mg/2 Ml Vial) 4 mg IVPUSH ONCE PRN PRN Reason: Nausea and Vomiting Oxycodone HCl (Oxycodone Hcl Immed Release 5 Mg Tablet) 5 mg PO Q4H PRN PRN Reason: Pain, Severe (Pain Scale 7-10) Last Admin: 08/08/22 06:20 Dose: 5 mg Documented By: TOY Pharmacy Consult (Consult Rx Perform Med Rec) 1 each MISCELLANE ONCE PRN PRN Reason: Consult order Polyethylene Glycol (Polyethylene Glycol 3350 17 Gm Powd.Pack) 17 gm PO DAILY PRN PRN Reason: constipation Last Admin: 08/06/22 08:19 Dose: 17 gm Documented By: ADRIANA Polyethylene Glycol (Polyethylene Glycol 3350 17 Gm Powd.Pack) 17 gm PO DAILY [facility] Last Admin: 08/08/22 08:05 Dose: 17 gm Documented By: COTEMA Sodium Chloride (0.9 % Sodium Chloride Flush 3 Ml Syringe) 3 ml IVFLUSH QSHIFT [facility] Last Admin: 08/08/22 08:06 Dose: 3 ml Documented By: COTEMA Sodium Hypochlorite (Sodium Hypochlorite 0.25% 473 Ml Solution) 1 appl TOPICAL BID [facility] Last Admin: 08/08/22 08:21 Dose: 1 appl Documented By: DALEEMA Tamsulosin HCl (Tamsulosin Hcl 0.4 Mg Capsule) 0.8 mg PO DAILY [facility] Last Admin: 08/08/22 08:06 Dose: 0.8 mg Documented By: DALEEMA Vitamin D (Cholecalciferol (Vitamin D3) 25 Mcg Tablet) 50 mcg PO DAILY [facility] Last Admin: 08/08/22 08:04 Dose: 50 mcg Documented By: COTEMA Zinc Acetate/Diphenhydramine (Diphenhydramine Hcl 2 % Cream 28 Gm Tube) 1 appl TOPICAL TID PRN; Protocol PRN Reason: itching Labs CBC & Chem 7: 08/03/22 05:08 08/03/22 05:08 Labs: Laboratory Results - last 24 hr 08/07/22 08/07/22 08/07/22 10:51 16:21 20:45 POC Glucose 297 H 205 H 308 H 08/08/22 07:20 POC Glucose 157 H Assessment and Plan (1) Status post excisional debridement: Status: Acute Plan 74yo M with DM2, HTN, HLD, chronic venous stasis dermatitis presented with mechanical fall, admitted for hypoxia due to PNA Sacral decubitus ulcer. Unstageable, necrotic 10cm x10 cm with 4 cm depth Improving s/p debridements 07/08, 07/17, 1/2 s/p wound vac placement 07/22/22 - removed 07/25 after it became soiled surgery following continue wet to dry dressings for now Atrial flutter/fib with RVR intermittently LVEF >70% continue toprol xl and Eliquis Episode of SVT vs atrial tachycardia 07/26 HR improved with IV Lopressor seen by cardiology, recommended to start amiodorone 400 bid, stop on 08/07/21 and start 200mg daily continue toprol XL blood pressure has remained stable. patient asymptomatic Acute blood loss anemia. Resolved s/p blood loss at site of decub ulcer patient received 2 unit of packed RBC continue ferrous sulfate b.i.d. H/H stable Traumatic SAH CT brain 06/26 New small areas of extra-axial hemorrhage adjacent to the left posterior parietal lobe, bilateral occipital lobes and in the occipital horns of both lateral ventricles, repeat CT 06/28 unchanged seen by neuro - AC was held for two weeks no headache, no dizziness No other complications Acute hypoxic respiratory failure due to PNA. Resolved finished 10d of ABX back on room air Urinary retention failed voiding trial x2 continue tamsulosin and finasteride seen by urology, continue roberts upon discharge - outpatient urology follow up Hyponatremia resolved stop urea cortisol, TSH wnl Mechanical fall difficulty ambulating; awaiting SNF placement generalized weakness 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 but not clinically NPH per Neurology incidental 1.3cm pancreatic lesions may reflect adjacent pancreatic cysts outpt MRI/MRCP DM2 continue Lantus, SSI HTN soft blood pressures losartan and hydralazine discontinued continue metoprolol HLD statin VTE ppx: SCDs, eliquis on hold for debridement attending Dr. Contreras Full code Disposition. 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 Quality Stroke Does the patient have a stroke diagnosis?: No VTE Prior VTE?: No VTE Risk Level:: Medical - moderate - high VTE Device Contraindication: Treatment Not Indicated VTE Drug Contraindication: N/A - Med Ordered
[2022-08-08 11:11] VITALS: BP 106/53; PULSE 73; RESP 18; TEMP 36.6; O2SAT 98
[2022-08-08 11:40] LABS: Glucose, Whole Blood 235 mg/dL (60-115)
[2022-08-08 15:25] VITALS: BP 120/56; PULSE 77; RESP 17; TEMP 36; O2SAT 96
[2022-08-08 16:21] LABS: Glucose, Whole Blood 271 mg/dL (60-115)
[2022-08-08 19:15] VITALS: BP 138/63; PULSE 76; RESP 17; TEMP 37.1; O2SAT 96
[2022-08-08 21:02] LABS: Glucose, Whole Blood 250 mg/dL (60-115)
[2022-08-08] MEDS: Insulin Glargine,Hum.rec.anlog 100 UNIT/ML 10 ML VIAL SUBCUT (21:07)
[2022-08-08 23:39] VITALS: BP 117/56; PULSE 76; RESP 18; TEMP 36.3; O2SAT 97
[2022-08-09] MEDS: oxyCODONE HCl Immed Release 5 MG TABLET PO ×3 (03:11→16:50)
[2022-08-09 03:39] VITALS: BP 114/58; PULSE 77; RESP 18; TEMP 36.3; O2SAT 97
[2022-08-09 07:01] VITALS: BP 141/62; PULSE 80; RESP 18; TEMP 36; O2SAT 98
[2022-08-09 07:14] LABS: Glucose, Whole Blood 149 mg/dL (60-115)
[2022-08-09] MEDS: Docusate Sodium 100 MG CAPSULE PO ×2 (08:19→21:52)
[2022-08-09] MEDS: Apixaban 5 MG TABLET PO ×2 (08:19→21:52)
[2022-08-09] MEDS: Lidocaine 4 % Patch ADH..PATCH 1 PATCH TRANSDERMA (08:19)
[2022-08-09] MEDS: Insulin Glargine,Hum.rec.anlog 100 UNIT/ML 10 ML VIAL 20 UNIT SUBCUT (08:19)
[2022-08-09] MEDS: polyethylene glycoL 3350 17 GM POWD.PACK PO (08:19)
[2022-08-09] MEDS: Metoprolol Succinate ER 100 MG TAB.ER.24H PO (08:19)
[2022-08-09] MEDS: Tamsulosin HCL 0.4 MG CAPSULE 0.8 MG PO (08:20)
[2022-08-09] MEDS: Amiodarone HCL 200 MG TABLET PO (08:20)
[2022-08-09] MEDS: Cholecalciferol (Vitamin D3) 25 MCG TABLET 50 MCG PO (08:20)
[2022-08-09] MEDS: Finasteride 5 MG TABLET PO (08:20)
[2022-08-09] MEDS: Ferrous Sulfate 324 MG TABLET.DR PO ×2 (08:20→16:51)
[2022-08-09] MEDS: Acetaminophen 325 MG TABLET 650 MG PO ×2 (08:20→16:51)
[2022-08-09] MEDS: 0.9 % Sodium Chloride Flush 3 ML SYRINGE IVFLUSH ×3 (08:28→21:54)
[2022-08-09 11:14] LABS: Glucose, Whole Blood 284 mg/dL (60-115)
--- NOTE | 2022-08-09 11:25 | MHC.CLN ---
F/U PO INTAKE REMAINS 50-100% DIET RX: REGULAR-APPROPRIATE PT RECEIVING ENSURE TID PLUS ANDREZ BID PROVIDES 1210 KCALS, 65 G PROTEIN WITH 100% ACCEPTANCE CONTINUE TO MONITOR PO INTAKE ENCOURAGE SUPPLEMENT FOR WOUND HEALING
[2022-08-09] MEDS: Insulin Lispro 100 UNIT/ML 3 ML VIAL SUBCUT ×3 (11:27→21:52)
--- NOTE | 2022-08-09 12:08 | HO.PM.IMPN ---
Subjective Subjective Date of Service: 08/09/22 Interval History: Offers no acute complaints, admitted to have generalized achiness pain medications are helping, tolerating diet no nausea no vomiting, no abdominal pain no other acute overnight issues. Review of Systems General no headache no dizziness no fever chills.? CVS no chest pain, no palpitation.? Respiratory no cough no sob Gastrointestinal no nausea no vomiting, no abdominal pain Physical Exam Vital Signs: Vital Signs: Last Vital Signs Temp 96.8 F 08/09/22 07:01 Pulse 80 08/09/22 07:01 Resp 18 08/09/22 07:01 BP 141/62 H 08/09/22 07:01 Pulse Ox 98 08/09/22 07:01 O2 Del Method 08/09/22 07:01 O2 Flow Rate 4 08/05/22 13:22 BMI result Body Mass Index 26.6 Const: Other: Gen:? Awake alert, in no acute distress HEENT: sclera anicteric, moist mucus membranes Neck: supple Lungs: clear to auscultation bilaterally Heart: irregular irregular, no murmurs Abd: soft, non-tender, non-distended Ext: no edema Skin: warm/well-perfused, sacral decubitus ulcer unstageable Neuro: alert and oriented x3, no focal findings Psych: appropriate affect this Objective Data Active Medications Acetaminophen (Acetaminophen 325 Mg Tablet) 650 mg PO Q6H PRN PRN Reason: Pain, Mild (Pain Scale 1-3) Last Admin: 08/09/22 08:20 Dose: 650 mg Documented By: COTEMA Amiodarone HCl (Amiodarone Hcl 200 Mg Tablet) 200 mg PO DAILY [facility] Last Admin: 08/09/22 08:20 Dose: 200 mg Documented By: COTEMA Apixaban (Apixaban 5 Mg Tablet) 5 mg PO BID [facility] Last Admin: 08/09/22 08:19 Dose: 5 mg Documented By: DALEEMA Dextrose (Dextrose 50 % 25 Gm/50 Ml Syringe) 25 gm IVPUSH Q15M PRN; Protocol PRN Reason: per Hypoglycemia Standing Ord. Docusate Sodium (Docusate Sodium 100 Mg Capsule) 100 mg PO BID [facility] Last Admin: 08/09/22 08:19 Dose: 100 mg Documented By: COTEMA Ferrous Sulfate (Ferrous Sulfate 324 Mg Tablet.) 324 mg PO BIDWM [facility] Last Admin: 08/09/22 08:20 Dose: 324 mg Documented By: ANA CRISTINA Finasteride (Finasteride 5 Mg Tablet) 5 mg PO DAILY [facility] Last Admin: 08/09/22 08:20 Dose: 5 mg Documented By: ANA CRISTINA Glucose (Glucose Gel 15 Gm Gel..Gram.) 15 gm PO Q15M PRN; Protocol PRN Reason: per Hypoglycemia Standing Ord. Insulin Glargine (Insulin Glargine,Hum.Rec.Anlog 100 Unit/Ml 10 Ml Vial) 20 unit SUBCUT DAILY@0730 [facility] Last Admin: 08/09/22 08:19 Dose: 20 unit Documented By: ANA CRISTINA Insulin Glargine (Insulin Glargine,Hum.Rec.Anlog 100 Unit/Ml 10 Ml Vial) 5 unit SUBCUT BEDTIME [facility] Last Admin: 08/08/22 21:07 Dose: 5 unit Documented By: TUMASY Insulin Human Lispro (Insulin Lispro 100 Unit/Ml 3 Ml Vial) 0 unit SUBCUT QIDACHS [facility]; Protocol Last Admin: 08/09/22 11:27 Dose: 8 unit Documented By: ANA CRISTINA Lidocaine (Lidocaine 4 % Patch Adh..Patch) 1 patch TRANSDERMA DAILY [facility]; Protocol Last Admin: 08/09/22 08:19 Dose: 1 patch Documented By: ANA CRISTINA Metoprolol Succinate (Metoprolol Succinate Er 100 Mg Tab.Er.24h) 100 mg PO DAILY [facility] Last Admin: 08/09/22 08:19 Dose: 100 mg Documented By: ANA CRISTINA Ondansetron HCl (Ondansetron Hcl 4 Mg/2 Ml Vial) 4 mg IVPUSH Q8H PRN PRN Reason: Nausea and Vomiting Last Admin: 07/07/22 01:05 Dose: 4 mg Documented By: CASTILM Ondansetron HCl (Ondansetron Hcl 4 Mg/2 Ml Vial) 4 mg IVPUSH ONCE PRN PRN Reason: Nausea and Vomiting Ondansetron HCl (Ondansetron Hcl 4 Mg/2 Ml Vial) 4 mg IVPUSH ONCE PRN PRN Reason: Nausea and Vomiting Oxycodone HCl (Oxycodone Hcl Immed Release 5 Mg Tablet) 5 mg PO Q4H PRN PRN Reason: Pain, Severe (Pain Scale 7-10) Last Admin: 08/09/22 06:31 Dose: 5 mg Documented By: BRENDA Pharmacy Consult (Consult Rx Perform Med Rec) 1 each MISCELLANE ONCE PRN PRN Reason: Consult order Polyethylene Glycol (Polyethylene Glycol 3350 17 Gm Powd.Pack) 17 gm PO DAILY PRN PRN Reason: constipation Last Admin: 08/06/22 08:19 Dose: 17 gm Documented By: ADRIANA Polyethylene Glycol (Polyethylene Glycol 3350 17 Gm Powd.Pack) 17 gm PO DAILY [facility] Last Admin: 08/09/22 08:19 Dose: 17 gm Documented By: COTEMA Sodium Chloride (0.9 % Sodium Chloride Flush 3 Ml Syringe) 3 ml IVFLUSH QSHIFT [facility] Last Admin: 08/09/22 08:28 Dose: 3 ml Documented By: COTEMA Sodium Hypochlorite (Sodium Hypochlorite 0.25% 473 Ml Solution) 1 appl TOPICAL BID [facility] Last Admin: 08/09/22 08:29 Dose: 1 appl Documented By: DALEEMA Tamsulosin HCl (Tamsulosin Hcl 0.4 Mg Capsule) 0.8 mg PO DAILY [facility] Last Admin: 08/09/22 08:20 Dose: 0.8 mg Documented By: DALEEMA Vitamin D (Cholecalciferol (Vitamin D3) 25 Mcg Tablet) 50 mcg PO DAILY [facility] Last Admin: 08/09/22 08:20 Dose: 50 mcg Documented By: COTEMA Zinc Acetate/Diphenhydramine (Diphenhydramine Hcl 2 % Cream 28 Gm Tube) 1 appl TOPICAL TID PRN; Protocol PRN Reason: itching Labs 08/03/22 05:08 08/03/22 05:08 Labs: Laboratory Results - last 24 hr 08/08/22 08/08/22 08/09/22 16:17 20:57 07:00 POC Glucose 271 H 250 H 149 H 08/09/22 11:08 POC Glucose 284 H Assessment and Plan (1) Status post excisional debridement: Status: Acute Plan 74yo M with DM2, HTN, HLD, chronic venous stasis dermatitis presented with mechanical fall, admitted for hypoxia due to PNA Sacral decubitus ulcer. Unstageable, necrotic 10cm x10 cm with 4 cm depth Improving s/p debridements 07/08, 07/17, 1/2 s/p wound vac placement 07/22/22 - removed 07/25 after it became soiled continue wet to dry dressings , being followed by General surgery Atrial flutter/fib with RVR intermittently LVEF >70% continue toprol xl and Eliquis Episode of SVT vs atrial tachycardia 07/26 HR improved with IV Lopressor, finish loading dose of amiodarone and started on amiodarone 200 mg by mouth daily on August 07, continue Toprol XL Acute blood loss anemia. Resolved s/p blood loss at site of decub ulcer patient received 2 unit of packed RBC continue ferrous sulfate b.i.d. H/H stable Traumatic SAH CT brain 06/26 New small areas of extra-axial hemorrhage adjacent to the left posterior parietal lobe, bilateral occipital lobes and in the occipital horns of both lateral ventricles, repeat CT 06/28 unchanged seen by neuro - AC was held for two weeks no headache, no dizziness No other complications Acute hypoxic respiratory failure due to PNA. Resolved finished 10d of ABX back on room air Urinary retention failed voiding trial x2 continue tamsulosin and finasteride seen by urology, continue roberts upon discharge - outpatient urology follow up Hyponatremia resolved stop urea cortisol, TSH wnl Mechanical fall difficulty ambulating; awaiting SNF placement generalized weakness 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 but not clinically NPH per Neurology incidental 1.3cm pancreatic lesions may reflect adjacent pancreatic cysts outpt MRI/MRCP DM2 continue Lantus, SSI HTN soft blood pressures losartan and hydralazine discontinued continue metoprolol HLD statin VTE ppx: SCDs, eliquis Full code In my clinical judgment, the patient requires continued inpatient hospitalization for the following reasons: SNF placement and follow-up on stage IV decub ulcer with need for further debridement Time Spent With Patient Time: Total time managing care of this patient today ____ minutes. Quality Stroke Does the patient have a stroke diagnosis?: No VTE Prior VTE?: No VTE Risk Level:: Medical - moderate - high VTE Device Contraindication: Treatment Not Indicated VTE Drug Contraindication: N/A - Med Ordered
[2022-08-09 15:27] VITALS: BP 131/63; PULSE 87; RESP 17; TEMP 36.8; O2SAT 95
[2022-08-09 16:37] LABS: Glucose, Whole Blood 297 mg/dL (60-115)
[2022-08-09 19:40] VITALS: BP 127/60; PULSE 86; RESP 17; TEMP 36.8; O2SAT 96
[2022-08-09 21:04] LABS: Glucose, Whole Blood 325 mg/dL (60-115)
[2022-08-09] MEDS: Insulin Glargine,Hum.rec.anlog 100 UNIT/ML 10 ML VIAL SUBCUT (21:53)
[2022-08-10] MEDS: oxyCODONE HCl Immed Release 5 MG TABLET PO ×4 (01:47→18:12)
[2022-08-10 04:00] VITALS: BP 110/53; PULSE 79; RESP 18; TEMP 36.4; O2SAT 99
[2022-08-10 07:55] VITALS: BP 119/58; PULSE 81; RESP 20; TEMP 36.8; O2SAT 97
[2022-08-10 07:57] LABS: Glucose, Whole Blood 171 mg/dL (60-115)
[2022-08-10] MEDS: Finasteride 5 MG TABLET PO (08:32)
[2022-08-10] MEDS: Lidocaine 4 % Patch ADH..PATCH 1 PATCH TRANSDERMA (08:32)
[2022-08-10] MEDS: polyethylene glycoL 3350 17 GM POWD.PACK PO (08:32)
[2022-08-10] MEDS: Apixaban 5 MG TABLET PO ×2 (08:32→21:06)
[2022-08-10] MEDS: Ferrous Sulfate 324 MG TABLET.DR PO ×2 (08:33→16:37)
[2022-08-10] MEDS: Metoprolol Succinate ER 100 MG TAB.ER.24H PO (08:33)
[2022-08-10] MEDS: Tamsulosin HCL 0.4 MG CAPSULE 0.8 MG PO (08:33)
[2022-08-10] MEDS: Docusate Sodium 100 MG CAPSULE PO ×2 (08:33→21:06)
[2022-08-10] MEDS: Cholecalciferol (Vitamin D3) 25 MCG TABLET 50 MCG PO (08:33)
[2022-08-10] MEDS: Insulin Lispro 100 UNIT/ML 3 ML VIAL SUBCUT ×4 (08:33→21:06)
[2022-08-10] MEDS: Amiodarone HCL 200 MG TABLET PO (08:33)
[2022-08-10] MEDS: Insulin Glargine,Hum.rec.anlog 100 UNIT/ML 10 ML VIAL 20 UNIT SUBCUT (08:34)
[2022-08-10] MEDS: 0.9 % Sodium Chloride Flush 3 ML SYRINGE IVFLUSH ×3 (08:34→21:06)
--- NOTE | 2022-08-10 09:33 | P.PNIM_ITS ---
Subjective Subjective Date of Service: 08/10/22 Interval History: Offers no acute complaints, tolerating diet no nausea, no abdominal pain, or diarrhea no acute events overnight Review of Systems Review of Systems: Yes all other systems are reviewed and are negative Physical Exam Vital Signs: Vital Signs: Last Vital Signs Temp 98.2 F 08/10/22 07:55 Pulse 81 08/10/22 07:55 Resp 20 08/10/22 07:55 BP 119/58 L 08/10/22 07:55 Pulse Ox 97 08/10/22 07:55 O2 Del Method 08/10/22 04:00 O2 Flow Rate 4 08/05/22 13:22 BMI result Body Mass Index 26.6 Const: Other: Gen:? Awake alert, in no acute distress HEENT: sclera anicteric, moist mucus membranes Neck: supple Lungs: clear to auscultation bilaterally Heart: irregular irregular, no murmurs Abd: soft, non-tender, non-distended Ext: no edema Skin: warm/well-perfused, sacral decubitus ulcer unstageable Neuro: alert and oriented x3, no focal findings Psych: appropriate affect this Objective Data Active Medications Acetaminophen (Acetaminophen 325 Mg Tablet) 650 mg PO Q6H PRN PRN Reason: Pain, Mild (Pain Scale 1-3) Last Admin: 08/09/22 16:51 Dose: 650 mg Documented By: ANA CRISTINA Amiodarone HCl (Amiodarone Hcl 200 Mg Tablet) 200 mg PO DAILY [facility] Last Admin: 08/10/22 08:33 Dose: 200 mg Documented By: TONNY Apixaban (Apixaban 5 Mg Tablet) 5 mg PO BID [facility] Last Admin: 08/10/22 08:32 Dose: 5 mg Documented By: TONNY Dextrose (Dextrose 50 % 25 Gm/50 Ml Syringe) 25 gm IVPUSH Q15M PRN; Protocol PRN Reason: per Hypoglycemia Standing Ord. Docusate Sodium (Docusate Sodium 100 Mg Capsule) 100 mg PO BID [facility] Last Admin: 08/10/22 08:33 Dose: 100 mg Documented By: TONNY Ferrous Sulfate (Ferrous Sulfate 324 Mg Tablet.) 324 mg PO BIDWM [facility] Last Admin: 08/10/22 08:33 Dose: 324 mg Documented By: TONNY Finasteride (Finasteride 5 Mg Tablet) 5 mg PO DAILY [facility] Last Admin: 08/10/22 08:32 Dose: 5 mg Documented By: TONNY Glucose (Glucose Gel 15 Gm Gel..Gram.) 15 gm PO Q15M PRN; Protocol PRN Reason: per Hypoglycemia Standing Ord. Insulin Glargine (Insulin Glargine,Hum.Rec.Anlog 100 Unit/Ml 10 Ml Vial) 20 unit SUBCUT DAILY@0730 [facility] Last Admin: 08/10/22 08:34 Dose: 20 unit Documented By: TONNY Insulin Glargine (Insulin Glargine,Hum.Rec.Anlog 100 Unit/Ml 10 Ml Vial) 5 unit SUBCUT BEDTIME [facility] Last Admin: 08/09/22 21:53 Dose: 5 unit Documented By: ADRIANA Insulin Human Lispro (Insulin Lispro 100 Unit/Ml 3 Ml Vial) 0 unit SUBCUT QI DACHS [facility]; Protocol Last Admin: 08/10/22 08:33 Dose: 2 unit Documented By: TONNY Lidocaine (Lidocaine 4 % Patch Adh..Patch) 1 patch TRANSDERMA DAILY [facility]; Protocol Last Admin: 08/10/22 08:32 Dose: 1 patch Documented By: TONNY Metoprolol Succinate (Metoprolol Succinate Er 100 Mg Tab.Er.24h) 100 mg PO DAILY [facility] Last Admin: 08/10/22 08:33 Dose: 100 mg Documented By: TONNY Ondansetron HCl (Ondansetron Hcl 4 Mg/2 Ml Vial) 4 mg IVPUSH Q8H PRN PRN Reason: Nausea and Vomiting Last Admin: 07/07/22 01:05 Dose: 4 mg Documented By: MARIANN Ondansetron HCl (Ondansetron Hcl 4 Mg/2 Ml Vial) 4 mg IVPUSH ONCE PRN PRN Reason: Nausea and Vomiting Ondansetron HCl (Ondansetron Hcl 4 Mg/2 Ml Vial) 4 mg IVPUSH ONCE PRN PRN Reason: Nausea and Vomiting Oxycodone HCl (Oxycodone Hcl Immed Release 5 Mg Tablet) 5 mg PO Q4H PRN PRN Reason: Pain, Severe (Pain Scale 7-10) Last Admin: 08/10/22 06:06 Dose: 5 mg Documented By: ADRIANA Pharmacy Consult (Consult Rx Perform Med Rec) 1 each MISCELLANE ONCE PRN PRN Reason: Consult order Polyethylene Glycol (Polyethylene Glycol 3350 17 Gm Powd.Pack) 17 gm PO DAILY PRN PRN Reason: constipation Last Admin: 08/06/22 08:19 Dose: 17 gm Documented By: ADRIANA Polyethylene Glycol (Polyethylene Glycol 3350 17 Gm Powd.Pack) 17 gm PO DAILY [facility] Last Admin: 08/10/22 08:32 Dose: 17 gm Documented By: TONNY Sodium Chloride (0.9 % Sodium Chloride Flush 3 Ml Syringe) 3 ml IVFLUSH QSHIFT [facility] Last Admin: 08/10/22 08:34 Dose: 3 ml Documented By: TONNY Sodium Hypochlorite (Sodium Hypochlorite 0.25% 473 Ml Solution) 1 appl TOPICAL BID [facility] Last Admin: 08/10/22 08:39 Dose: 1 appl Documented By: TONNY Tamsulosin HCl (Tamsulosin Hcl 0.4 Mg Capsule) 0.8 mg PO DAILY [facility] Last Admin: 08/10/22 08:33 Dose: 0.8 mg Documented By: TONNY Vitamin D (Cholecalciferol (Vitamin D3) 25 Mcg Tablet) 50 mcg PO DAILY [facility] Last Admin: 08/10/22 08:33 Dose: 50 mcg Documented By: TONNY Zinc Acetate/Diphenhydramine (Diphenhydramine Hcl 2 % Cream 28 Gm Tube) 1 appl TOPICAL TID PRN; Protocol PRN Reason: itching Labs 08/03/22 05:08 08/03/22 05:08 Labs: Laboratory Results - last 24 hr 08/09/22 08/09/22 08/09/22 11:08 16:32 20:59 POC Glucose 284 H 297 H 325 H 08/10/22 07:54 POC Glucose 171 H Assessment and Plan (1) Status post excisional debridement: Status: Acute Plan 74yo M with DM2, HTN, HLD, chronic venous stasis dermatitis presented with mechanical fall, admitted for hypoxia due to PNA Sacral decubitus ulcer. Unstageable, necrotic 10cm x10 cm with 4 cm depth Improving s/p debridements 07/08, 07/17, 1/2 s/p wound vac placement 07/22/22 - removed 07/25 after it became soiled continue wet to dry dressings , being followed by General surgery. Atrial flutter/fib with RVR intermittently LVEF >70% continue toprol xl and Eliquis Episode of SVT vs atrial tachycardia 07/26 HR improved with IV Lopressor, finish loading dose of amiodarone and started on amiodarone 200 mg by mouth daily on August 07, continue Toprol XL Acute blood loss anemia. Resolved s/p blood loss at site of decub ulcer patient received 2 unit of packed RBC continue ferrous sulfate b.i.d. H/H stable Traumatic SAH CT brain 06/26 New small areas of extra-axial hemorrhage adjacent to the left posterior parietal lobe, bilateral occipital lobes and in the occipital horns of both lateral ventricles, repeat CT 06/28 unchanged seen by neuro - AC was held for two weeks no headache, no dizziness No other complications Acute hypoxic respiratory failure due to PNA. Resolved finished 10d of ABX back on room air Urinary retention failed voiding trial x2 continue tamsulosin and finasteride seen by urology, continue roberts upon discharge - outpatient urology follow up Hyponatremia resolved stop urea cortisol, TSH wnl Mechanical fall difficulty ambulating; awaiting SNF placement generalized weakness 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 but not clinically NPH per Neurology incidental 1.3cm pancreatic lesions may reflect adjacent pancreatic cysts outpt MRI/MRCP DM2 continue Lantus, SSI HTN soft blood pressures losartan and hydralazine discontinued continue metoprolol HLD statin VTE ppx: SCDs, eliquis Full code In my clinical judgment, the patient requires continued inpatient hospitalization for the following reasons: SNF placement and 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 Time Spent With Patient Time: Total time managing care of this patient today ____ minutes. Quality Stroke Does the patient have a stroke diagnosis?: No VTE Prior VTE?: No VTE Risk Level:: Medical - moderate - high VTE Device Contraindication: Treatment Not Indicated VTE Drug Contraindication: N/A - Med Ordered
[2022-08-10 11:47] LABS: Glucose, Whole Blood 291 mg/dL (60-115)
[2022-08-10 16:00] VITALS: BP 124/58; PULSE 82; RESP 16; TEMP 36.6; O2SAT 97
[2022-08-10 16:21] LABS: Glucose, Whole Blood 308 mg/dL (60-115)
[2022-08-10 20:00] VITALS: BP 134/60; PULSE 77; RESP 16; TEMP 36.7; O2SAT 98
[2022-08-10 20:21] LABS: Glucose, Whole Blood 210 mg/dL (60-115)
[2022-08-10] MEDS: Insulin Glargine,Hum.rec.anlog 100 UNIT/ML 10 ML VIAL SUBCUT (21:07)
[2022-08-11 03:21] VITALS: BP 130/62; PULSE 88; RESP 16; TEMP 36.5; O2SAT 97
[2022-08-11] MEDS: oxyCODONE HCl Immed Release 5 MG TABLET PO ×4 (03:22→21:22)
[2022-08-11 08:00] VITALS: BP 135/63; PULSE 96; RESP 18; TEMP 36.7; O2SAT 95
[2022-08-11 08:01] LABS: Glucose, Whole Blood 117 mg/dL (60-115)
[2022-08-11] MEDS: Insulin Glargine,Hum.rec.anlog 100 UNIT/ML 10 ML VIAL 20 UNIT SUBCUT (08:31)
[2022-08-11] MEDS: 0.9 % Sodium Chloride Flush 3 ML SYRINGE IVFLUSH ×3 (08:32→21:23)
[2022-08-11] MEDS: Amiodarone HCL 200 MG TABLET PO (08:32)
[2022-08-11] MEDS: Lidocaine 4 % Patch ADH..PATCH 1 PATCH TRANSDERMA (08:32)
[2022-08-11] MEDS: Docusate Sodium 100 MG CAPSULE PO ×2 (08:32→21:22)
[2022-08-11] MEDS: polyethylene glycoL 3350 17 GM POWD.PACK PO (08:32)
[2022-08-11] MEDS: Tamsulosin HCL 0.4 MG CAPSULE 0.8 MG PO (08:32)
[2022-08-11] MEDS: Cholecalciferol (Vitamin D3) 25 MCG TABLET 50 MCG PO (08:36)
[2022-08-11] MEDS: Metoprolol Succinate ER 100 MG TAB.ER.24H PO (08:36)
[2022-08-11] MEDS: Apixaban 5 MG TABLET PO ×2 (08:36→21:22)
[2022-08-11] MEDS: Finasteride 5 MG TABLET PO (08:36)
[2022-08-11] MEDS: Ferrous Sulfate 324 MG TABLET.DR PO ×2 (08:36→16:40)
--- NOTE | 2022-08-11 09:48 | HO.PM.IMPN ---
Subjective Subjective Date of Service: 08/11/22 Interval History: Eating breakfast offers no acute complaints other than generalized body ache, requiring frequent position change due to decub ulcer, denies fever chills no acute issues overnight. Review of Systems Review of Systems: Yes all other systems are reviewed and are negative Physical Exam Vital Signs: Vital Signs: Last Vital Signs Temp 98.1 F 08/11/22 08:00 Pulse 96 08/11/22 08:00 Resp 18 08/11/22 08:00 BP 135/63 08/11/22 08:00 Pulse Ox 95 08/11/22 08:00 O2 Del Method 08/11/22 08:00 O2 Flow Rate 4 08/05/22 13:22 BMI result Body Mass Index 26.6 Const: Other: Gen:? Awake alert, in no acute distr ess HEENT: sclera anicteric, moist m ucus membranes Nec k: supple Lungs: c lear to auscultati on bilaterally Hea rt: regular, no mu rmurs Abd: soft, n on-tender, non-dis tended Ext: no kylee ma Skin: warm/well -perfused, sacral decubitus ulcer un stageable Neuro: a lert and oriented x3, no focal findi ngs Psych: appropr iate affect Objective Data Active Medications Acetaminophen (Acetaminophen 325 Mg Tablet) 650 mg PO Q6H PRN PRN Reason: Pain, Mild (Pain Scale 1-3) Last Admin: 08/09/22 16:51 Dose: 650 mg Documented By: ANA CRISTINA Amiodarone HCl (Amiodarone Hcl 200 Mg Tablet) 200 mg PO DAILY [facility] Last Admin: 08/11/22 08:32 Dose: 200 mg Documented By: TONNY Apixaban (Apixaban 5 Mg Tablet) 5 mg PO BID [facility] Last Admin: 08/11/22 08:36 Dose: 5 mg Documented By: TONNY Dextrose (Dextrose 50 % 25 Gm/50 Ml Syringe) 25 gm IVPUSH Q15M PRN; Protocol PRN Reason: per Hypoglycemia Standing Ord. Docusate Sodium (Docusate Sodium 100 Mg Capsule) 100 mg PO BID [facility] Last Admin: 08/11/22 08:32 Dose: 100 mg Documented By: TONNY Ferrous Sulfate (Ferrous Sulfate 324 Mg Tablet.) 324 mg PO BIDWM [facility] Last Admin: 08/11/22 08:36 Dose: 324 mg Documented By: TONNY Finasteride (Finasteride 5 Mg Tablet) 5 mg PO DAILY [facility] Last Admin: 08/11/22 08:36 Dose: 5 mg Documented By: TONNY Glucose (Glucose Gel 15 Gm Gel..Gram.) 15 gm PO Q15M PRN; Protocol PRN Reason: per Hypoglycemia Standing Ord. Insulin Glargine (Insulin Glargine,Hum.Rec.Anlog 100 Unit/Ml 10 Ml Vial) 20 unit SUBCUT DAILY@0730 [facility] Last Admin: 08/11/22 08:31 Dose: 20 unit Documented By: TONNY Insulin Glargine (Insulin Glargine,Hum.Rec.Anlog 100 Unit/Ml 10 Ml Vial) 5 unit SUBCUT BEDTIME [facility] Last Admin: 08/10/22 21:07 Dose: 5 unit Documented By: SU Insulin Human Lispro (Insulin Lispro 100 Unit/Ml 3 Ml Vial) 0 unit SUBCUT QIDACHS [facility]; Protocol Last Admin: 08/11/22 07:29 Dose: Not Given Documented By: TONNY Non-Admin Reason: No Insulin Coverage Lidocaine (Lidocaine 4 % Patch Adh..Patch) 1 patch TRANSDERMA DAILY [facility]; Protocol Last Admin: 08/11/22 08:32 Dose: 1 patch Documented By: TONNY Metoprolol Succinate (Metoprolol Succinate Er 100 Mg Tab.Er.24h) 100 mg PO DAILY [facility] Last Admin: 08/11/22 08:36 Dose: 100 mg Documented By: TONNY Ondansetron HCl (Ondansetron Hcl 4 Mg/2 Ml Vial) 4 mg IVPUSH Q8H PRN PRN Reason: Nausea and Vomiting Last Admin: 07/07/22 01:05 Dose: 4 mg Documented By: MARIANN Ondansetron HCl (Ondansetron Hcl 4 Mg/2 Ml Vial) 4 mg IVPUSH ONCE PRN PRN Reason: Nausea and Vomiting Ondansetron HCl (Ondansetron Hcl 4 Mg/2 Ml Vial) 4 mg IVPUSH ONCE PRN PRN Reason: Nausea and Vomiting Oxycodone HCl (Oxycodone Hcl Immed Release 5 Mg Tablet) 5 mg PO Q4H PRN PRN Reason: Pain, Severe (Pain Scale 7-10) Last Admin: 08/11/22 08:36 Dose: 5 mg Documented By: TONNY Pharmacy Consult (Consult Rx Perform Med Rec) 1 each MISCELLANE ONCE PRN PRN Reason: Consult order Polyethylene Glycol (Polyethylene Glycol 3350 17 Gm Powd.Pack) 17 gm PO DAILY PRN PRN Reason: constipation Last Admin: 08/06/22 08:19 Dose: 17 gm Documented By: ADRIANA Polyethylene Glycol (Polyethylene Glycol 3350 17 Gm Powd.Pack) 17 gm PO DAILY [facility] Last Admin: 08/11/22 08:32 Dose: 17 gm Documented By: TONNY Sodium Chloride (0.9 % Sodium Chloride Flush 3 Ml Syringe) 3 ml IVFLUSH QSHIFT [facility] Last Admin: 08/11/22 08:32 Dose: 3 ml Documented By: TONNY Sodium Hypochlorite (Sodium Hypochlorite 0.25% 473 Ml Solution) 1 appl TOPICAL BID [facility] Last Admin: 08/11/22 08:43 Dose: 1 appl Documented By: TONNY Tamsulosin HCl (Tamsulosin Hcl 0.4 Mg Capsule) 0.8 mg PO DAILY [facility] Last Admin: 08/11/22 08:32 Dose: 0.8 mg Documented By: TONNY Vitamin D (Cholecalciferol (Vitamin D3) 25 Mcg Tablet) 50 mcg PO DAILY [facility] Last Admin: 08/11/22 08:36 Dose: 50 mcg Documented By: TONNY Zinc Acetate/Diphenhydramine (Diphenhydramine Hcl 2 % Cream 28 Gm Tube) 1 appl TOPICAL TID PRN; Protocol PRN Reason: itching Labs 08/03/22 05:08 08/03/22 05:08 Labs: Laboratory Results - last 24 hr 08/10/22 08/10/22 08/10/22 11:41 16:18 20:17 POC Glucose 291 H 308 H 210 H 08/11/22 07:27 POC Glucose 117 H Assessment and Plan (1) Status post excisional debridement: Status: Acute Plan 74yo M with DM2, HTN, HLD, chronic venous stasis dermatitis presented with mechanical fall, admitted for hypoxia due to PNA Sacral decubitus ulcer. Unstageable, necrotic 10cm x10 cm with 4 cm depth Improving s/p debridements 07/08, 07/17, 1/2 s/p wound vac placement 07/22/22 - removed 07/25 after it became soiled continue wet to dry dressings , being followed by General surgery. Atrial flutter/fib with RVR intermittently LVEF >70% continue toprol xl and Eliquis Episode of SVT vs atrial tachycardia 07/26 HR improved with IV Lopressor, finish loading dose of amiodarone and started on amiodarone 200 mg by mouth daily on August 07, continue Toprol XL Acute blood loss anemia. Resolved s/p blood loss at site of decub ulcer patient received 2 unit of packed RBC continue ferrous sulfate b.i.d. H/H stable Traumatic SAH CT brain 06/26 New small areas of extra-axial hemorrhage adjacent to the left posterior parietal lobe, bilateral occipital lobes and in the occipital horns of both lateral ventricles, repeat CT 06/28 unchanged seen by neuro - AC was held for two weeks no headache, no dizziness No other complications Acute hypoxic respiratory failure due to PNA. Resolved finished 10d of ABX back on room air Urinary retention failed voiding trial x2 continue tamsulosin and finasteride seen by urology, continue roberts upon discharge - outpatient urology follow up Hyponatremia resolved s/p urea cortisol, TSH wnl Mechanical fall difficulty ambulating; awaiting SNF placement generalized weakness 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 but not clinically NPH per Neurology incidental 1.3cm pancreatic lesions may reflect adjacent pancreatic cysts outpt MRI/MRCP DM2 continue Lantus, SSI fluctuating blood sugars HTN Stable blood pressures, continue metoprolol losartan and hydralazine discontinued due to soft blood pressures HLD statin VTE ppx: SCDs, eliquis Full code In my clinical judgment, the patient requires continued inpatient hospitalization for the following reasons: SNF placement and 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 Time Spent With Patient Time: Total time managing care of this patient today ____ minutes. Quality Stroke Does the patient have a stroke diagnosis?: No VTE Prior VTE?: No VTE Risk Level:: Medical - moderate - high VTE Device Contraindication: Treatment Not Indicated VTE Drug Contraindication: N/A - Med Ordered
[2022-08-11 11:56] LABS: Glucose, Whole Blood 224 mg/dL (60-115)
[2022-08-11] MEDS: Insulin Lispro 100 UNIT/ML 3 ML VIAL SUBCUT ×3 (12:01→21:23)
[2022-08-11 15:23] VITALS: BP 126/62; PULSE 76; RESP 17; TEMP 36.6; O2SAT 97
[2022-08-11 16:21] LABS: Glucose, Whole Blood 321 mg/dL (60-115)
[2022-08-11 19:58] VITALS: BP 117/59; PULSE 80; RESP 16; TEMP 37.2; O2SAT 97
[2022-08-11 20:28] LABS: Glucose, Whole Blood 257 mg/dL (60-115)
[2022-08-11] MEDS: Insulin Glargine,Hum.rec.anlog 100 UNIT/ML 10 ML VIAL SUBCUT (21:22)
[2022-08-12] MEDS: oxyCODONE HCl Immed Release 5 MG TABLET PO ×3 (01:51→20:35)
[2022-08-12 03:39] VITALS: BP 124/58; PULSE 93; RESP 18; TEMP 37; O2SAT 94
[2022-08-12 07:20] VITALS: BP 123/61; PULSE 90; RESP 18; TEMP 37; O2SAT 94
[2022-08-12 07:54] LABS: Glucose, Whole Blood 176 mg/dL (60-115)
[2022-08-12] MEDS: Cholecalciferol (Vitamin D3) 25 MCG TABLET 50 MCG PO (08:38)
[2022-08-12] MEDS: Finasteride 5 MG TABLET PO (08:38)
[2022-08-12] MEDS: Metoprolol Succinate ER 100 MG TAB.ER.24H PO (08:38)
[2022-08-12] MEDS: Lidocaine 4 % Patch ADH..PATCH 1 PATCH TRANSDERMA (08:38)
[2022-08-12] MEDS: Tamsulosin HCL 0.4 MG CAPSULE 0.8 MG PO (08:38)
[2022-08-12] MEDS: polyethylene glycoL 3350 17 GM POWD.PACK PO (08:38)
[2022-08-12] MEDS: Amiodarone HCL 200 MG TABLET PO (08:39)
[2022-08-12] MEDS: Apixaban 5 MG TABLET PO ×2 (08:39→20:35)
[2022-08-12] MEDS: Insulin Lispro 100 UNIT/ML 3 ML VIAL SUBCUT ×4 (08:39→20:36)
[2022-08-12] MEDS: Docusate Sodium 100 MG CAPSULE PO ×2 (08:39→20:35)
[2022-08-12] MEDS: Ferrous Sulfate 324 MG TABLET.DR PO ×2 (08:39→16:59)
[2022-08-12] MEDS: 0.9 % Sodium Chloride Flush 3 ML SYRINGE IVFLUSH ×3 (08:40→20:36)
[2022-08-12] MEDS: Insulin Glargine,Hum.rec.anlog 100 UNIT/ML 10 ML VIAL 20 UNIT SUBCUT (08:40)
[2022-08-12 11:28] LABS: Glucose, Whole Blood 369 mg/dL (60-115)
[2022-08-12] MEDS: Acetaminophen 325 MG TABLET 650 MG PO ×2 (13:15→20:35)
--- NOTE | 2022-08-12 14:00 | MHC.CLN ---
F/U SKIN WITH STAGE IV WOUND TO COCCYX, REDNESS TO RIGHT HEEL. PO INTAKE REMAINS 50-100% DIET RX: REGULAR-APPROPRIATE PT RECEIVING ENSURE TID PLUS ANDREZ BID. PROVIDES 1210 KCALS, 65 G PROTEIN WITH 100% ACCEPTANCE. CONTINUE TO MONITOR PO INTAKE . ENCOURAGE SUPPLEMENT FOR WOUND HEALING. RD TO FOLLOW WEEKLY.
--- NOTE | 2022-08-12 14:52 | HO.PM.IMPN ---
Subjective Subjective Date of Service: 08/12/22 Interval History: Being followed for decubital severe and safe placement, patient tolerating diet, no nausea, no vomiting, no abdominal pain, no fevers, no chills no other acute issues overnight. Review of Systems Review of Systems: Yes all other systems are reviewed and are negative Physical Exam Vital Signs: Vital Signs: Last Vital Signs Temp 98.6 F 08/12/22 07:20 Pulse 90 08/12/22 07:20 Resp 18 08/12/22 07:20 BP 123/61 08/12/22 07:20 Pulse Ox 94 08/12/22 07:20 O2 Del Method 08/12/22 07:20 O2 Flow Rate 4 08/05/22 13:22 BMI result Body Mass Index 26.6 Const: Other: Gen:? Awake alert, in no acute distr ess HEENT: sclera anicteric, moist m ucus membranes Nec k: supple Lungs: c lear to auscultati on bilaterally Hea rt: irregular irre gular, no murmurs Abd: soft, non-ten kinza, non-distended Ext: no edema Ski n: warm/well-perfu sed, sacral decubi tus ulcer unstagea ble Neuro: alert a nd oriented x3, no focal findings Ps ych: appropriate a ffect this Objective Data Active Medications Acetaminophen (Acetaminophen 325 Mg Tablet) 650 mg PO Q6H PRN PRN Reason: Pain, Mild (Pain Scale 1-3) Last Admin: 08/12/22 13:15 Dose: 650 mg Documented By: ADAN Amiodarone HCl (Amiodarone Hcl 200 Mg Tablet) 200 mg PO DAILY [facility] Last Admin: 08/12/22 08:39 Dose: 200 mg Documented By: ADAN Apixaban (Apixaban 5 Mg Tablet) 5 mg PO BID [facility] Last Admin: 08/12/22 08:39 Dose: 5 mg Documented By: ADAN Dextrose (Dextrose 50 % 25 Gm/50 Ml Syringe) 25 gm IVPUSH Q15M PRN; Protocol PRN Reason: per Hypoglycemia Standing Ord. Docusate Sodium (Docusate Sodium 100 Mg Capsule) 100 mg PO BID [facility] Last Admin: 08/12/22 08:39 Dose: 100 mg Documented By: ADAN Ferrous Sulfate (Ferrous Sulfate 324 Mg Tablet.Dr) 324 mg PO BIDWM [facility] Last Admin: 08/12/22 08:39 Dose: 324 mg Documented By: ADAN Finasteride (Finasteride 5 Mg Tablet) 5 mg PO DAILY [facility] Last Admin: 08/12/22 08:38 Dose: 5 mg Documented By: ADAN Glucose (Glucose Gel 15 Gm Gel..Gram.) 15 gm PO Q15M PRN; Protocol PRN Reason: per Hypoglycemia Standing Ord. Insulin Glargine (Insulin Glargine,Hum.Rec.Anlog 100 Unit/Ml 10 Ml Vial) 20 unit SUBCUT DAILY@0730 [facility] Last Admin: 08/12/22 08:40 Dose: 20 unit Documented By: ADAN Insulin Glargine (Insulin Glargine,Hum.Rec.Anlog 100 Unit/Ml 10 Ml Vial) 5 unit SUBCUT BEDTIME [facility] Last Admin: 08/11/22 21:22 Dose: 5 unit Documented By: TOY Insulin Human Lispro (Insulin Lispro 100 Unit/Ml 3 Ml Vial) 0 unit SUBCUT QIDACHS [facility]; Protocol Last Admin: 08/12/22 11:58 Dose: 10 unit Documented By: ADAN Lidocaine (Lidocaine 4 % Patch Adh..Patch) 1 patch TRANSDERMA DAILY [facility]; Protocol Last Admin: 08/12/22 08:38 Dose: 1 patch Documented By: ADAN Metoprolol Succinate (Metoprolol Succinate Er 100 Mg Tab.Er.24h) 100 mg PO DAILY [facility] Last Admin: 08/12/22 08:38 Dose: 100 mg Documented By: ADAN Ondansetron HCl (Ondansetron Hcl 4 Mg/2 Ml Vial) 4 mg IVPUSH Q8H PRN PRN Reason: Nausea and Vomiting Last Admin: 07/07/22 01:05 Dose: 4 mg Documented By: MARIANN Ondansetron HCl (Ondansetron Hcl 4 Mg/2 Ml Vial) 4 mg IVPUSH ONCE PRN PRN Reason: Nausea and Vomiting Ondansetron HCl (Ondansetron Hcl 4 Mg/2 Ml Vial) 4 mg IVPUSH ONCE PRN PRN Reason: Nausea and Vomiting Oxycodone HCl (Oxycodone Hcl Immed Release 5 Mg Tablet) 5 mg PO Q4H PRN PRN Reason: Pain, Severe (Pain Scale 7-10) Last Admin: 08/12/22 13:15 Dose: 5 mg Documented By: ADAN Pharmacy Consult (Consult Rx Perform Med Rec) 1 each MISCELLANE ONCE PRN PRN Reason: Consult order Polyethylene Glycol (Polyethylene Glycol 3350 17 Gm Powd.Pack) 17 gm PO DAILY PRN PRN Reason: constipation Last Admin: 08/06/22 08:19 Dose: 17 gm Documented By: ADRIANA Polyethylene Glycol (Polyethylene Glycol 3350 17 Gm Powd.Pack) 17 gm PO DAILY [facility] Last Admin: 08/12/22 08:38 Dose: 17 gm Documented By: ADAN Sodium Chloride (0.9 % Sodium Chloride Flush 3 Ml Syringe) 3 ml IVFLUSH QSHIFT [facility] Last Admin: 08/12/22 08:40 Dose: 3 ml Documented By: ADAN Sodium Hypochlorite (Sodium Hypochlorite 0.25% 473 Ml Solution) 1 appl TOPICAL BID [facility] Last Admin: 08/12/22 10:27 Dose: 1 appl Documented By: ADAN Tamsulosin HCl (Tamsulosin Hcl 0.4 Mg Capsule) 0.8 mg PO DAILY [facility] Last Admin: 08/12/22 08:38 Dose: 0.8 mg Documented By: ADAN Vitamin D (Cholecalciferol (Vitamin D3) 25 Mcg Tablet) 50 mcg PO DAILY [facility] Last Admin: 08/12/22 08:38 Dose: 50 mcg Documented By: ADAN Zinc Acetate/Diphenhydramine (Diphenhydramine Hcl 2 % Cream 28 Gm Tube) 1 appl TOPICAL TID PRN; Protocol PRN Reason: itching Labs 08/03/22 05:08 08/03/22 05:08 Labs: Laboratory Results - last 24 hr 08/11/22 08/11/22 08/12/22 16:14 20:02 07:18 POC Glucose 321 H 257 H 176 H 08/12/22 11:15 POC Glucose 369 H* Assessment and Plan (1) Status post excisional debridement: Status: Acute Plan 74yo M with DM2, HTN, HLD, chronic venous stasis dermatitis presented with mechanical fall, admitted for hypoxia due to PNA Sacral decubitus ulcer. Unstageable, necrotic 10cm x10 cm with 4 cm depth Improving s/p debridements 07/08, 07/17, 08/05 s/p wound vac placement 07/22/22 - removed 07/25 after it became soiled continue wet to dry dressings , being followed by General surgery. Atrial flutter/fib with RVR intermittently LVEF >70% continue toprol xl and Eliquis Episode of SVT vs atrial tachycardia 07/26 HR improved with IV Lopressor, finish loading dose of amiodarone and started on amiodarone 200 mg by mouth daily on August 07, continue Toprol XL Acute blood loss anemia. Resolved s/p blood loss at site of decub ulcer patient received 2 unit of packed RBC continue ferrous sulfate b.i.d. H/H stable Traumatic SAH CT brain 06/26 New small areas of extra-axial hemorrhage adjacent to the left posterior parietal lobe, bilateral occipital lobes and in the occipital horns of both lateral ventricles, repeat CT 06/28 unchanged seen by neuro - AC was held for two weeks no headache, no dizziness No other complications Acute hypoxic respiratory failure due to PNA. Resolved finished 10d of ABX back on room air Urinary retention failed voiding trial x2 continue tamsulosin and finasteride seen by urology, continue roberts upon discharge - outpatient urology follow up Hyponatremia resolved s/p urea cortisol, TSH wnl Mechanical fall difficulty ambulating; awaiting SNF placement generalized weakness 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 but not clinically NPH per Neurology incidental 1.3cm pancreatic lesions may reflect adjacent pancreatic cysts outpt MRI/MRCP DM2 continue Lantus, SSI fluctuating blood sugars HTN Stable blood pressures, continue metoprolol losartan and hydralazine discontinued due to soft blood pressures HLD statin VTE ppx: SCDs, eliquis Full code In my clinical judgment, the patient requires continued inpatient hospitalization for the following reasons: SNF placement and 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 Time Spent With Patient Time: Total time managing care of this patient today ____ minutes. Quality Stroke Does the patient have a stroke diagnosis?: No VTE Prior VTE?: No VTE Risk Level:: Medical - moderate - high VTE Device Contraindication: Treatment Not Indicated VTE Drug Contraindication: N/A - Med Ordered
[2022-08-12 15:10] VITALS: BP 142/51; PULSE 77; RESP 16; TEMP 36.1; O2SAT 97
[2022-08-12 16:53] LABS: Glucose, Whole Blood 306 mg/dL (60-115)
--- NOTE | 2022-08-12 18:41 | PC.NURSE ---
Pt is alert and orinnted x2-3. he can be confused and forgetful at times. C/O back pain. Schedule Lidocaine patch to the back, Oxycodone and Tylenol before dressing change.
[2022-08-12 19:39] VITALS: BP 121/56; PULSE 83; RESP 17; TEMP 36.6; O2SAT 95
[2022-08-12 19:48] LABS: Glucose, Whole Blood 275 mg/dL (60-115)
[2022-08-12] MEDS: Insulin Glargine,Hum.rec.anlog 100 UNIT/ML 10 ML VIAL SUBCUT (20:37)
[2022-08-13 03:51] VITALS: BP 107/52; PULSE 80; RESP 18; TEMP 36.3; O2SAT 96
[2022-08-13] MEDS: oxyCODONE HCl Immed Release 5 MG TABLET PO ×3 (03:55→16:07)
[2022-08-13 07:58] LABS: Glucose, Whole Blood 237 mg/dL (60-115)
[2022-08-13 08:00] VITALS: BP 114/54; PULSE 79; RESP 20; TEMP 36.9; O2SAT 95
[2022-08-13] MEDS: Cholecalciferol (Vitamin D3) 25 MCG TABLET 50 MCG PO (09:17)
[2022-08-13] MEDS: Tamsulosin HCL 0.4 MG CAPSULE 0.8 MG PO (09:17)
[2022-08-13] MEDS: Insulin Glargine,Hum.rec.anlog 100 UNIT/ML 10 ML VIAL 20 UNIT SUBCUT (09:17)
[2022-08-13] MEDS: Metoprolol Succinate ER 100 MG TAB.ER.24H PO (09:17)
[2022-08-13] MEDS: Lidocaine 4 % Patch ADH..PATCH 1 PATCH TRANSDERMA (09:17)
[2022-08-13] MEDS: Ferrous Sulfate 324 MG TABLET.DR PO ×2 (09:17→16:05)
[2022-08-13] MEDS: Apixaban 5 MG TABLET PO ×2 (09:17→19:57)
[2022-08-13] MEDS: Amiodarone HCL 200 MG TABLET PO (09:17)
[2022-08-13] MEDS: Docusate Sodium 100 MG CAPSULE PO ×2 (09:17→19:56)
[2022-08-13] MEDS: Finasteride 5 MG TABLET PO (09:17)
[2022-08-13] MEDS: Insulin Lispro 100 UNIT/ML 3 ML VIAL SUBCUT ×4 (09:18→19:57)
[2022-08-13] MEDS: polyethylene glycoL 3350 17 GM POWD.PACK PO (09:19)
[2022-08-13] MEDS: Acetaminophen 325 MG TABLET 650 MG PO ×3 (09:29→22:30)
--- NOTE | 2022-08-13 11:12 | P.PNIM_ITS ---
Subjective Subjective Date of Service: 08/14/22 Interval History: follow up for -decubital severe and safe placement,? Review of Systems denies any abd pain or nausea or vomiting or fevers Physical Exam Vital Signs: Vital Signs: Last Vital Signs Temp 98.5 F 08/13/22 08:00 Pulse 79 08/13/22 08:00 Resp 20 08/13/22 08:00 BP 114/54 L 08/13/22 08:00 Pulse Ox 95 08/13/22 08:00 O2 Del Method 08/13/22 08:00 O2 Flow Rate 4 08/05/22 13:22 BMI result Body Mass Index 26.6 Appearance: Alert.? Oriented , not in distress.? heent: sclera anicteric,moist mucus membranes. cvs: rrr, [id number] , no murmur res: clear to auscultation ,no rhonchii or wheezing abd: no rebound or guarding ,nt, bs present. skin-skin area seems back decubtii-ulcer seems slightly improving ext pulses present , no cyanosis . neuro: axo3 , nonfocal. Objective Data Active Medications Acetaminophen (Acetaminophen 325 Mg Tablet) 650 mg PO Q6H PRN PRN Reason: Pain, Mild (Pain Scale 1-3) Last Admin: 08/13/22 09:29 Dose: 650 mg Documented By: ANDRZEJ-MARY Amiodarone HCl (Amiodarone Hcl 200 Mg Tablet) 200 mg PO DAILY [facility] Last Admin: 08/13/22 09:17 Dose: 200 mg Documented By: ANDRZEJ-MARY Apixaban (Apixaban 5 Mg Tablet) 5 mg PO BID [facility] Last Admin: 08/13/22 09:17 Dose: 5 mg Documented By: ANDRZEJ-MARY Dextrose (Dextrose 50 % 25 Gm/50 Ml Syringe) 25 gm IVPUSH Q15M PRN; Protocol PRN Reason: per Hypoglycemia Standing Ord. Docusate Sodium (Docusate Sodium 100 Mg Capsule) 100 mg PO BID [facility] Last Admin: 08/13/22 09:17 Dose: 100 mg Documented By: ANDRZEJ-MARY Ferrous Sulfate (Ferrous Sulfate 324 Mg Tablet.) 324 mg PO BIDWM [facility] Last Admin: 08/13/22 09:17 Dose: 324 mg Documented By: ANDRZEJ-SOFSHILPA Finasteride (Finasteride 5 Mg Tablet) 5 mg PO DAILY [facility] Last Admin: 08/13/22 09:17 Dose: 5 mg Documented By: JOON Glucose (Glucose Gel 15 Gm Gel..Gram.) 15 gm PO Q15M PRN; Protocol PRN Reason: per Hypoglycemia Standing Ord. Insulin Glargine (Insulin Glargine,Hum.Rec.Anlog 100 Unit/Ml 10 Ml Vial) 20 unit SUBCUT DAILY@0730 [facility] Last Admin: 08/13/22 09:17 Dose: 20 unit Documented By: JOON Comments: \ Insulin Glargine (Insulin Glargine,Hum.Rec.Anlog 100 Unit/Ml 10 Ml Vial) 5 unit SUBCUT BEDTIME [facility] Last Admin: 08/12/22 20:37 Dose: 5 unit Documented By: TOY Insulin Human Lispro (Insulin Lispro 100 Unit/Ml 3 Ml Vial) 0 unit SUBCUT QIDACHS [facility]; Protocol Last Admin: 08/13/22 09:18 Dose: 6 unit Documented By: JOON Lidocaine (Lidocaine 4 % Patch Adh..Patch) 1 patch TRANSDERMA DAILY [facility]; Protocol Last Admin: 08/13/22 09:17 Dose: 1 patch Documented By: JOON Metoprolol Succinate (Metoprolol Succinate Er 100 Mg Tab.Er.24h) 100 mg PO DAILY [facility] Last Admin: 08/13/22 09:17 Dose: 100 mg Documented By: JOON Ondansetron HCl (Ondansetron Hcl 4 Mg/2 Ml Vial) 4 mg IVPUSH Q8H PRN PRN Reason: Nausea and Vomiting Last Admin: 07/07/22 01:05 Dose: 4 mg Documented By: MARIANN Ondansetron HCl (Ondansetron Hcl 4 Mg/2 Ml Vial) 4 mg IVPUSH ONCE PRN PRN Reason: Nausea and Vomiting Ondansetron HCl (Ondansetron Hcl 4 Mg/2 Ml Vial) 4 mg IVPUSH ONCE PRN PRN Reason: Nausea and Vomiting Oxycodone HCl (Oxycodone Hcl Immed Release 5 Mg Tablet) 5 mg PO Q4H PRN PRN Reason: Pain, Severe (Pain Scale 7-10) Last Admin: 08/13/22 09:29 Dose: 5 mg Documented By: JOON Pharmacy Consult (Consult Rx Perform Med Rec) 1 each MISCELLANE ONCE PRN PRN Reason: Consult order Polyethylene Glycol (Polyethylene Glycol 3350 17 Gm Powd.Pack) 17 gm PO DAILY PRN PRN Reason: constipation Last Admin: 08/06/22 08:19 Dose: 17 gm Documented By: ADRIANA Polyethylene Glycol (Polyethylene Glycol 3350 17 Gm Powd.Pack) 17 gm PO DAILY [facility] Last Admin: 08/13/22 09:19 Dose: 17 gm Documented By: JOON Sodium Chloride (0.9 % Sodium Chloride Flush 3 Ml Syringe) 3 ml IVFLUSH QSHIFT [facility] Last Admin: 08/13/22 07:18 Dose: Not Given Documented By: JOON Non-Admin Reason: See Note Sodium Hypochlorite (Sodium Hypochlorite 0.25% 473 Ml Solution) 1 appl TOPICAL BID [facility] Last Admin: 08/13/22 09:19 Dose: 1 appl Documented By: JOON Tamsulosin HCl (Tamsulosin Hcl 0.4 Mg Capsule) 0.8 mg PO DAILY [facility] Last Admin: 08/13/22 09:17 Dose: 0.8 mg Documented By: JOON Vitamin D (Cholecalciferol (Vitamin D3) 25 Mcg Tablet) 50 mcg PO DAILY [facility] Last Admin: 08/13/22 09:17 Dose: 50 mcg Documented By: JOON Zinc Acetate/Diphenhydramine (Diphenhydramine Hcl 2 % Cream 28 Gm Tube) 1 appl TOPICAL TID PRN; Protocol PRN Reason: itching Labs 08/03/22 05:08 08/03/22 05:08 Labs: Laboratory Results - last 24 hr 08/12/22 08/12/22 08/12/22 11:15 16:49 19:38 POC Glucose 369 H* 306 H 275 H 08/13/22 07:53 POC Glucose 237 H Assessment and Plan (1) Status post excisional debridement: Status: Acute (2) Diabetes mellitus with coincident hypertension: Status: Acute (3) Hyperglycemia: Status: Acute Plan 74yo M with DM2, HTN, HLD, chronic venous stasis dermatitis presented with mechanical fall, admitted for hypoxia due to PNA Sacral decubitus ulcer. Unstageable, necrotic 10cm x10 cm with 4 cm depth frequent turn,air loss bed ,continue wound care Improving s/p debridements 07/08, 07/17, 1 s/p wound vac placement 07/22/22 - removed 07/25 after it became soiled continue wet to dry dressings , being followed by General surgery. Atrial flutter/fib with RVR intermittently LVEF >70% continue toprol xl and Eliquis Episode of SVT vs atrial tachycardia 07/26 HR improved with IV Lopressor, finish loading dose of amiodarone and started on amiodarone 200 mg by mouth daily on August 07, continue Toprol XL Acute blood loss anemia. Resolved s/p blood loss at site of decub ulcer patient received 2 unit of packed RBC continue ferrous sulfate b.i.d. H/H stable Traumatic SAH CT brain 06/26 New small areas of extra-axial hemorrhage adjacent to the left posterior parietal lobe, bilateral occipital lobes and in the occipital horns of both lateral ventricles, repeat CT 06/28 unchanged seen by neuro - AC was held for two weeks no headache, no dizziness No other complications Acute hypoxic respiratory failure due to PNA. Resolved finished 10d of ABX back on room air Urinary retention failed voiding trial x2 continue tamsulosin and finasteride seen by urology, continue roberts upon discharge - outpatient urology follow up Hyponatremia resolved s/p urea cortisol, TSH wnl Mechanical fall difficulty ambulating; awaiting SNF placement generalized weakness 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 but not clinically NPH per Neurology incidental 1.3cm pancreatic lesions may reflect adjacent pancreatic cysts outpt MRI/MRCP DM2 with hyperglycemia continue Lantus, SSI adjusted . 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 Time Spent With Patient Time: Total time managing care of this patient today ____ minutes. Quality Stroke Does the patient have a stroke diagnosis?: No VTE Prior VTE?: No VTE Risk Level:: Medical - moderate - high VTE Device Contraindication: Treatment Not Indicated VTE Drug Contraindication: N/A - Med Ordered
[2022-08-13 11:43] LABS: Glucose, Whole Blood 297 mg/dL (60-115)
--- NOTE | 2022-08-13 14:53 | MHC.CM.PN ---
EMR REVIEWED, PT STILL AWAITING BED OFFER, MH PENDING AND CM AWAITING UPDATED ON STATUS FROM , SNF REFERRAL UPDATED AND EXPANDED, CM WILL CONT TO FOLLOW.
[2022-08-13 15:25] VITALS: BP 115/54; PULSE 85; RESP 16; TEMP 36.6; O2SAT 96
[2022-08-13 15:47] LABS: Glucose, Whole Blood 295 mg/dL (60-115)
[2022-08-13 19:33] VITALS: BP 112/56; PULSE 79; RESP 16; TEMP 36.4; O2SAT 98
[2022-08-13 19:44] LABS: Glucose, Whole Blood 289 mg/dL (60-115)
[2022-08-13] MEDS: Insulin Glargine,Hum.rec.anlog 100 UNIT/ML 10 ML VIAL SUBCUT (19:58)
[2022-08-13] MEDS: 0.9 % Sodium Chloride Flush 3 ML SYRINGE IVFLUSH (22:29)
[2022-08-14] MEDS: oxyCODONE HCl Immed Release 5 MG TABLET PO ×3 (02:19→20:30)
[2022-08-14 03:15] VITALS: BP 131/60; PULSE 80; RESP 18; TEMP 36.6; O2SAT 95
[2022-08-14 07:24] VITALS: BP 154/66; PULSE 83; RESP 18; TEMP 36.6; O2SAT 96
[2022-08-14 07:44] LABS: Glucose, Whole Blood 196 mg/dL (60-115)
[2022-08-14] MEDS: Insulin Glargine,Hum.rec.anlog 100 UNIT/ML 10 ML VIAL 20 UNIT SUBCUT (08:41)
[2022-08-14] MEDS: Insulin Lispro 100 UNIT/ML 3 ML VIAL SUBCUT ×4 (08:41→21:21)
[2022-08-14] MEDS: 0.9 % Sodium Chloride Flush 3 ML SYRINGE IVFLUSH ×3 (08:41→20:30)
[2022-08-14] MEDS: Ferrous Sulfate 324 MG TABLET.DR PO ×2 (08:42→17:16)
[2022-08-14] MEDS: Apixaban 5 MG TABLET PO ×2 (08:42→20:29)
[2022-08-14] MEDS: Metoprolol Succinate ER 100 MG TAB.ER.24H PO (08:42)
[2022-08-14] MEDS: Docusate Sodium 100 MG CAPSULE PO ×2 (08:42→20:29)
[2022-08-14] MEDS: Amiodarone HCL 200 MG TABLET PO (08:42)
[2022-08-14] MEDS: Finasteride 5 MG TABLET PO (08:42)
[2022-08-14] MEDS: Tamsulosin HCL 0.4 MG CAPSULE 0.8 MG PO (08:42)
[2022-08-14] MEDS: polyethylene glycoL 3350 17 GM POWD.PACK PO (08:42)
[2022-08-14] MEDS: Cholecalciferol (Vitamin D3) 25 MCG TABLET 50 MCG PO (08:42)
[2022-08-14] MEDS: Lidocaine 4 % Patch ADH..PATCH 1 PATCH TRANSDERMA (08:43)
[2022-08-14] MEDS: Acetaminophen 325 MG TABLET 650 MG PO (08:45)
[2022-08-14 11:24] LABS: Glucose, Whole Blood 301 mg/dL (60-115)
[2022-08-14] MEDS: oxyCODONE HCl Immed Release 5 MG TABLET 10 MG PO (12:12)
--- NOTE | 2022-08-14 13:21 | HO.PM.IMPN ---
Subjective Subjective Date of Service: 08/14/22 Interval History: follow up for -decubital severe and safe placement. Review of Systems denies any abd pain or nausea or vomiting or fevers Physical Exam Vital Signs: Vital Signs: Last Vital Signs Temp 97.9 F 08/14/22 07:24 Pulse 83 08/14/22 07:24 Resp 18 08/14/22 07:24 BP 154/66 H 08/14/22 07:24 Pulse Ox 96 08/14/22 07:24 O2 Del Method 08/14/22 07:24 O2 Flow Rate 4 08/05/22 13:22 BMI result Body Mass Index 26.6 Appearance: Alert.? Oriented , not in distress.? cvs: [id number], [id number] , no murmur res: clear to auscultation ,no rhonchii or wheezing abd: no rebound or guarding ,nt, bs present. skin-skin area seems back decubtii-ulcer seems slightly improving ext pulses present , no cyanosis . neuro: axo3 , nonfocal. Objective Data Active Medications Acetaminophen (Acetaminophen 325 Mg Tablet) 650 mg PO Q6H PRN PRN Reason: Pain, Mild (Pain Scale 1-3) Last Admin: 08/14/22 08:45 Dose: 650 mg Documented By: NARCISO Amiodarone HCl (Amiodarone Hcl 200 Mg Tablet) 200 mg PO DAILY [facility] Last Admin: 08/14/22 08:42 Dose: 200 mg Documented By: NARCISO Apixaban (Apixaban 5 Mg Tablet) 5 mg PO BID [facility] Last Admin: 08/14/22 08:42 Dose: 5 mg Documented By: NARCISO Dextrose (Dextrose 50 % 25 Gm/50 Ml Syringe) 25 gm IVPUSH Q15M PRN; Protocol PRN Reason: per Hypoglycemia Standing Ord. Docusate Sodium (Docusate Sodium 100 Mg Capsule) 100 mg PO BID [facility] Last Admin: 08/14/22 08:42 Dose: 100 mg Documented By: NARCISO Ferrous Sulfate (Ferrous Sulfate 324 Mg Tablet.) 324 mg PO BIDWM [facility] Last Admin: 08/14/22 08:42 Dose: 324 mg Documented By: NARCISO Finasteride (Finasteride 5 Mg Tablet) 5 mg PO DAILY [facility] Last Admin: 08/14/22 08:42 Dose: 5 mg Documented By: NARCISO Glucose (Glucose Gel 15 Gm Gel..Gram.) 15 gm PO Q15M PRN; Protocol PRN Reason: per Hypoglycemia Standing Ord. Insulin Glargine (Insulin Glargine,Hum.Rec.Anlog 100 Unit/Ml 10 Ml Vial) 20 unit SUBCUT DAILY@0730 [facility] Last Admin: 08/14/22 08:41 Dose: 20 unit Documented By: NARCISO Insulin Glargine (Insulin Glargine,Hum.Rec.Anlog 100 Unit/Ml 10 Ml Vial) 5 unit SUBCUT BEDTIME [facility] Last Admin: 08/13/22 19:58 Dose: 5 unit Documented By: ANDRZEJ-MICHAEL Insulin Human Lispro (Insulin Lispro 100 Unit/Ml 3 Ml Vial) 0 unit SUBCUT QIDACHS [facility]; Protocol Last Admin: 08/14/22 12:11 Dose: 12 unit Documented By: NARCISO Lidocaine (Lidocaine 4 % Patch Adh..Patch) 1 patch TRANSDERMA DAILY [facility]; Protocol Last Admin: 08/14/22 08:43 Dose: 1 patch Documented By: NARCISO Metoprolol Succinate (Metoprolol Succinate Er 100 Mg Tab.Er.24h) 100 mg PO DAILY [facility] Last Admin: 08/14/22 08:42 Dose: 100 mg Documented By: NARCISO Ondansetron HCl (Ondansetron Hcl 4 Mg/2 Ml Vial) 4 mg IVPUSH Q8H PRN PRN Reason: Nausea and Vomiting Last Admin: 07/07/22 01:05 Dose: 4 mg Documented By: MARIANN Ondansetron HCl (Ondansetron Hcl 4 Mg/2 Ml Vial) 4 mg IVPUSH ONCE PRN PRN Reason: Nausea and Vomiting Ondansetron HCl (Ondansetron Hcl 4 Mg/2 Ml Vial) 4 mg IVPUSH ONCE PRN PRN Reason: Nausea and Vomiting Oxycodone HCl (Oxycodone Hcl Immed Release 5 Mg Tablet) 5 mg PO Q4H PRN PRN Reason: Pain, Severe (Pain Scale 7-10) Last Admin: 08/14/22 08:45 Dose: 5 mg Documented By: NARCISO Pharmacy Consult (Consult Rx Perform Med Rec) 1 each MISCELLANE ONCE PRN PRN Reason: Consult order Polyethylene Glycol (Polyethylene Glycol 3350 17 Gm Powd.Pack) 17 gm PO DAILY PRN PRN Reason: constipation Last Admin: 08/06/22 08:19 Dose: 17 gm Documented By: ADRIANA Polyethylene Glycol (Polyethylene Glycol 3350 17 Gm Powd.Pack) 17 gm PO DAILY [facility] Last Admin: 08/14/22 08:42 Dose: 17 gm Documented By: NARCISO Sodium Chloride (0.9 % Sodium Chloride Flush 3 Ml Syringe) 3 ml IVFLUSH QSHIFT [facility] Last Admin: 08/14/22 08:41 Dose: 3 ml Documented By: NARCISO Sodium Hypochlorite (Sodium Hypochlorite 0.25% 473 Ml Solution) 1 appl TOPICAL BID [facility] Last Admin: 08/14/22 08:42 Dose: 1 appl Documented By: NARCISO Tamsulosin HCl (Tamsulosin Hcl 0.4 Mg Capsule) 0.8 mg PO DAILY [facility] Last Admin: 08/14/22 08:42 Dose: 0.8 mg Documented By: NARCISO Vitamin D (Cholecalciferol (Vitamin D3) 25 Mcg Tablet) 50 mcg PO DAILY [facility] Last Admin: 08/14/22 08:42 Dose: 50 mcg Documented By: NARCISO Zinc Acetate/Diphenhydramine (Diphenhydramine Hcl 2 % Cream 28 Gm Tube) 1 appl TOPICAL TID PRN; Protocol PRN Reason: itching Labs 08/03/22 05:08 08/03/22 05:08 Labs: Laboratory Results - last 24 hr 08/13/22 08/13/22 08/14/22 15:28 19:33 07:21 POC Glucose 295 H 289 H 196 H 08/14/22 11:01 POC Glucose 301 H Assessment and Plan (1) Status post excisional debridement: Status: Acute (2) Diabetes mellitus with coincident hypertension: Status: Acute (3) Hyperglycemia: Status: Acute Plan 74yo M with DM2, HTN, HLD, chronic venous stasis dermatitis presented with mechanical fall, admitted for hypoxia due to PNA Sacral decubitus ulcer. Unstageable, necrotic 10cm x10 cm with 4 cm depth frequent turn,air loss bed ,continue wound care Improving s/p debridements 07/08, 07/17, 1/2 s/p wound vac placement 07/22/22 - removed 07/25 after it became soiled continue wet to dry dressings , being followed by General surgery- d/w surgery -wound area seems improvin ,avoid wound vac because did not help. Atrial flutter/fib with RVR intermittently LVEF >70% continue toprol xl and Eliquis Episode of SVT vs atrial tachycardia 07/26 HR improved with IV Lopressor, finish loading dose of amiodarone and started on amiodarone 200 mg by mouth daily on August 07, continue Toprol XL Acute blood loss anemia. Resolved s/p blood loss at site of decub ulcer patient received 2 unit of packed RBC continue ferrous sulfate b.i.d. H/H stable Traumatic SAH CT brain 06/26 New small areas of extra-axial hemorrhage adjacent to the left posterior parietal lobe, bilateral occipital lobes and in the occipital horns of both lateral ventricles, repeat CT 06/28 unchanged seen by neuro - AC was held for two weeks no headache, no dizziness No other complications Acute hypoxic respiratory failure due to PNA. Resolved finished 10d of ABX back on room air Urinary retention failed voiding trial x2 continue tamsulosin and finasteride seen by urology, continue roberts upon discharge - outpatient urology follow up Hyponatremia resolved s/p urea cortisol, TSH wnl Mechanical fall difficulty ambulating; awaiting SNF placement generalized weakness 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 but not clinically NPH per Neurology incidental 1.3cm pancreatic lesions may reflect adjacent pancreatic cysts outpt MRI/MRCP DM2 with hyperglycemia continue Lantus, SSI adjusted . 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 Time Spent With Patient Time: Total time managing care of this patient today ____ minutes. Quality Stroke Does the patient have a stroke diagnosis?: No VTE Prior VTE?: No VTE Risk Level:: Medical - moderate - high VTE Device Contraindication: Treatment Not Indicated VTE Drug Contraindication: N/A - Med Ordered
[2022-08-14 15:06] VITALS: BP 94/48; PULSE 75; RESP 19; TEMP 37; O2SAT 95
[2022-08-14 16:28] LABS: Glucose, Whole Blood 231 mg/dL (60-115)
[2022-08-14 20:00] VITALS: BP 128/60; PULSE 88; RESP 17; TEMP 36.5; O2SAT 96
[2022-08-14] MEDS: Insulin Glargine,Hum.rec.anlog 100 UNIT/ML 10 ML VIAL SUBCUT (21:01)
[2022-08-14 21:17] LABS: Glucose, Whole Blood 186 mg/dL (60-115)
[2022-08-15] MEDS: oxyCODONE HCl Immed Release 5 MG TABLET PO ×4 (03:47→20:21)
[2022-08-15 03:57] VITALS: BP 123/58; PULSE 75; RESP 17; TEMP 36.7; O2SAT 100
[2022-08-15 07:47] VITALS: BP 131/60; PULSE 80; RESP 18; TEMP 36.1; O2SAT 97
[2022-08-15 07:47] LABS: Glucose, Whole Blood 126 mg/dL (60-115)
[2022-08-15] MEDS: Lidocaine 4 % Patch ADH..PATCH 1 PATCH TRANSDERMA (08:49)
[2022-08-15] MEDS: Apixaban 5 MG TABLET PO ×2 (08:50→20:22)
[2022-08-15] MEDS: Ferrous Sulfate 324 MG TABLET.DR PO ×2 (08:50→17:05)
[2022-08-15] MEDS: Finasteride 5 MG TABLET PO (08:50)
[2022-08-15] MEDS: Cholecalciferol (Vitamin D3) 25 MCG TABLET 50 MCG PO (08:50)
[2022-08-15] MEDS: Amiodarone HCL 200 MG TABLET PO (08:50)
[2022-08-15] MEDS: Tamsulosin HCL 0.4 MG CAPSULE 0.8 MG PO (08:50)
[2022-08-15] MEDS: Metoprolol Succinate ER 100 MG TAB.ER.24H PO (08:50)
[2022-08-15] MEDS: Insulin Glargine,Hum.rec.anlog 100 UNIT/ML 10 ML VIAL 20 UNIT SUBCUT (08:51)
[2022-08-15] MEDS: 0.9 % Sodium Chloride Flush 3 ML SYRINGE IVFLUSH ×3 (08:51→20:22)
[2022-08-15] MEDS: polyethylene glycoL 3350 17 GM POWD.PACK PO (08:51)
[2022-08-15] MEDS: Docusate Sodium 100 MG CAPSULE PO ×2 (08:51→20:22)
[2022-08-15] MEDS: Acetaminophen 325 MG TABLET 650 MG PO (08:53)
[2022-08-15 11:22] LABS: Glucose, Whole Blood 310 mg/dL (60-115)
[2022-08-15] MEDS: Insulin Lispro 100 UNIT/ML 3 ML VIAL SUBCUT ×3 (12:04→20:46)
--- NOTE | 2022-08-15 14:53 | MHC.CM.PN ---
PT MEDICALLY READY FOR DC HOWEVER THERE ARE NO BED OFFERS AT THIS TIME THE FACILITIES THAT ARE FOLLOWING ARE REQUESTING AN UPDATED PT VICKIE CERNA AWARE
--- NOTE | 2022-08-15 15:10 | HO.PM.IMPN ---
Subjective Subjective Date of Service: 08/15/22 Interval History: follow up for -decubital severe and safe placement. Review of Systems denies any abd pain or nausea or vomiting or fevers Physical Exam Vital Signs: Vital Signs: Last Vital Signs Temp 96.9 F 08/15/22 07:47 Pulse 80 08/15/22 07:47 Resp 18 08/15/22 07:47 BP 131/60 08/15/22 07:47 Pulse Ox 97 08/15/22 07:47 O2 Del Method 08/15/22 07:47 O2 Flow Rate 4 08/05/22 13:22 BMI result Body Mass Index 26.6 ? Appearance: Alert.? Oriented , not in distress.? cvs: rrr, [id number] , no murmur res: clear to auscultation ,no rhonchii or wheezing abd: no rebound or guarding ,nt, bs present. skin-skin area seems back decubtii-ulcer seems improving ext pulses present , no cyanosis . neuro: axo3 , nonfocal. Objective Data Active Medications Acetaminophen (Acetaminophen 325 Mg Tablet) 650 mg PO Q6H PRN PRN Reason: Pain, Mild (Pain Scale 1-3) Last Admin: 08/15/22 08:53 Dose: 650 mg Documented By: NARCISO Amiodarone HCl (Amiodarone Hcl 200 Mg Tablet) 200 mg PO DAILY [facility] Last Admin: 08/15/22 08:50 Dose: 200 mg Documented By: NARCISO Apixaban (Apixaban 5 Mg Tablet) 5 mg PO BID [facility] Last Admin: 08/15/22 08:50 Dose: 5 mg Documented By: NARCISO Dextrose (Dextrose 50 % 25 Gm/50 Ml Syringe) 25 gm IVPUSH Q15M PRN; Protocol PRN Reason: per Hypoglycemia Standing Ord. Docusate Sodium (Docusate Sodium 100 Mg Capsule) 100 mg PO BID [facility] Last Admin: 08/15/22 08:51 Dose: 100 mg Documented By: NARCISO Ferrous Sulfate (Ferrous Sulfate 324 Mg Tablet.) 324 mg PO BIDWM [facility] Last Admin: 08/15/22 08:50 Dose: 324 mg Documented By: NARCISO Finasteride (Finasteride 5 Mg Tablet) 5 mg PO DAILY [facility] Last Admin: 08/15/22 08:50 Dose: 5 mg Documented By: NARCISO Glucose (Glucose Gel 15 Gm Gel..Gram.) 15 gm PO Q15M PRN; Protocol PRN Reason: per Hypoglycemia Standing Ord. Insulin Glargine (Insulin Glargine,Hum.Rec.Anlog 100 Unit/Ml 10 Ml Vial) 20 unit SUBCUT DAILY@0730 [facility] Last Admin: 08/15/22 08:51 Dose: 20 unit Documented By: NARCISO Insulin Glargine (Insulin Glargine,Hum.Rec.Anlog 100 Unit/Ml 10 Ml Vial) 5 unit SUBCUT BEDTIME [facility] Last Admin: 08/14/22 21:01 Dose: 5 unit Documented By: ROMARISCinthya Insulin Human Lispro (Insulin Lispro 100 Unit/Ml 3 Ml Vial) 0 unit SUBCUT QIDACHS [facility]; Protocol Last Admin: 08/15/22 12:04 Dose: 12 unit Documented By: NARCISO Lidocaine (Lidocaine 4 % Patch Adh..Patch) 1 patch TRANSDERMA DAILY [facility]; Protocol Last Admin: 08/15/22 08:49 Dose: 1 patch Documented By: NARCISO Metoprolol Succinate (Metoprolol Succinate Er 100 Mg Tab.Er.24h) 100 mg PO DAILY [facility] Last Admin: 08/15/22 08:50 Dose: 100 mg Documented By: NARCISO Ondansetron HCl (Ondansetron Hcl 4 Mg/2 Ml Vial) 4 mg IVPUSH Q8H PRN PRN Reason: Nausea and Vomiting Last Admin: 07/07/22 01:05 Dose: 4 mg Documented By: MARIANN Ondansetron HCl (Ondansetron Hcl 4 Mg/2 Ml Vial) 4 mg IVPUSH ONCE PRN PRN Reason: Nausea and Vomiting Ondansetron HCl (Ondansetron Hcl 4 Mg/2 Ml Vial) 4 mg IVPUSH ONCE PRN PRN Reason: Nausea and Vomiting Oxycodone HCl (Oxycodone Hcl Immed Release 5 Mg Tablet) 5 mg PO Q4H PRN PRN Reason: Pain, Severe (Pain Scale 7-10) Last Admin: 08/15/22 13:29 Dose: 5 mg Documented By: NARCISO Pharmacy Consult (Consult Rx Perform Med Rec) 1 each MISCELLANE ONCE PRN PRN Reason: Consult order Polyethylene Glycol (Polyethylene Glycol 3350 17 Gm Powd.Pack) 17 gm PO DAILY PRN PRN Reason: constipation Last Admin: 08/06/22 08:19 Dose: 17 gm Documented By: ADRIANA Polyethylene Glycol (Polyethylene Glycol 3350 17 Gm Powd.Pack) 17 gm PO DAILY [facility] Last Admin: 08/15/22 08:51 Dose: 17 gm Documented By: NARCISO Sodium Chloride (0.9 % Sodium Chloride Flush 3 Ml Syringe) 3 ml IVFLUSH QSHIFT [facility] Last Admin: 08/15/22 08:51 Dose: 3 ml Documented By: NARCISO Sodium Hypochlorite (Sodium Hypochlorite 0.25% 473 Ml Solution) 1 appl TOPICAL BID [facility] Last Admin: 08/15/22 08:51 Dose: 1 appl Documented By: NARCISO Tamsulosin HCl (Tamsulosin Hcl 0.4 Mg Capsule) 0.8 mg PO DAILY [facility] Last Admin: 08/15/22 08:50 Dose: 0.8 mg Documented By: NARCISO Vitamin D (Cholecalciferol (Vitamin D3) 25 Mcg Tablet) 50 mcg PO DAILY [facility] Last Admin: 08/15/22 08:50 Dose: 50 mcg Documented By: NARCISO Zinc Acetate/Diphenhydramine (Diphenhydramine Hcl 2 % Cream 28 Gm Tube) 1 appl TOPICAL TID PRN; Protocol PRN Reason: itching Labs 08/03/22 05:08 08/03/22 05:08 Labs: Laboratory Results - last 24 hr 08/14/22 08/14/22 08/15/22 16:03 21:13 07:43 POC Glucose 231 H 186 H 126 H 08/15/22 11:17 POC Glucose 310 H Assessment and Plan (1) Status post excisional debridement: Status: Acute (2) Diabetes mellitus with coincident hypertension: Status: Acute (3) Hyperglycemia: Status: Acute Plan 74yo M with DM2, HTN, HLD, chronic venous stasis dermatitis presented with mechanical fall, admitted for hypoxia due to PNA Sacral decubitus ulcer. Unstageable, necrotic 10cm x10 cm with 4 cm depth frequent turn,air loss bed ,continue wound care Improving s/p debridements 07/08, 07/17, 1/2 s/p wound vac placement 07/22/22 - removed 07/25 after it became soiled continue wet to dry dressings , being followed by General surgery- d/w surgery -wound area seems improvin ,avoid wound vac because did not help. Atrial flutter/fib with RVR intermittently LVEF >70% continue toprol xl and Eliquis Episode of SVT vs atrial tachycardia 07/26 HR improved with IV Lopressor, finish loading dose of amiodarone and started on amiodarone 200 mg by mouth daily on August 07, continue Toprol XL Acute blood loss anemia. Resolved s/p blood loss at site of decub ulcer patient received 2 unit of packed RBC continue ferrous sulfate b.i.d. H/H stable Traumatic SAH CT brain 06/26 New small areas of extra-axial hemorrhage adjacent to the left posterior parietal lobe, bilateral occipital lobes and in the occipital horns of both lateral ventricles, repeat CT 06/28 unchanged seen by neuro - AC was held for two weeks no headache, no dizziness No other complications Acute hypoxic respiratory failure due to PNA. Resolved finished 10d of ABX back on room air Urinary retention failed voiding trial x2 continue tamsulosin and finasteride seen by urology, continue roberts upon discharge - outpatient urology follow up Hyponatremia resolved s/p urea cortisol, TSH wnl Mechanical fall difficulty ambulating; awaiting SNF placement generalized weakness 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 but not clinically NPH per Neurology incidental 1.3cm pancreatic lesions may reflect adjacent pancreatic cysts outpt MRI/MRCP DM2 with hyperglycemia continue Lantus, SSI adjusted . 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 Time Spent With Patient Time: Total time managing care of this patient today ____ minutes. Quality Stroke Does the patient have a stroke diagnosis?: No VTE Prior VTE?: No VTE Risk Level:: Medical - moderate - high VTE Device Contraindication: Treatment Not Indicated VTE Drug Contraindication: N/A - Med Ordered
[2022-08-15 16:00] VITALS: BP 117/70; PULSE 82; RESP 17; TEMP 36.5; O2SAT 97
[2022-08-15 16:52] LABS: Glucose, Whole Blood 274 mg/dL (60-115)
[2022-08-15 19:42] VITALS: BP 139/63; PULSE 87; RESP 18; TEMP 36.3; O2SAT 96
[2022-08-15] MEDS: Insulin Glargine,Hum.rec.anlog 100 UNIT/ML 10 ML VIAL SUBCUT (20:21)
[2022-08-15 21:04] LABS: Glucose, Whole Blood 224 mg/dL (60-115)
[2022-08-16] MEDS: oxyCODONE HCl Immed Release 5 MG TABLET PO ×3 (00:30→17:40)
[2022-08-16 04:00] VITALS: BP 128/74; PULSE 68; RESP 18; TEMP 36.3; O2SAT 96
[2022-08-16 07:15] VITALS: BP 125/73; PULSE 88; RESP 18; TEMP 36.6; O2SAT 93
[2022-08-16 07:23] LABS: Glucose, Whole Blood 145 mg/dL (60-115)
[2022-08-16] MEDS: Finasteride 5 MG TABLET PO (08:04)
[2022-08-16] MEDS: Cholecalciferol (Vitamin D3) 25 MCG TABLET 50 MCG PO (08:05)
[2022-08-16] MEDS: Insulin Glargine,Hum.rec.anlog 100 UNIT/ML 10 ML VIAL 20 UNIT SUBCUT (08:05)
[2022-08-16] MEDS: Ferrous Sulfate 324 MG TABLET.DR PO ×2 (08:05→16:45)
[2022-08-16] MEDS: Lidocaine 4 % Patch ADH..PATCH 1 PATCH TRANSDERMA (08:05)
[2022-08-16] MEDS: Acetaminophen 325 MG TABLET 650 MG PO (08:05)
[2022-08-16] MEDS: Tamsulosin HCL 0.4 MG CAPSULE 0.8 MG PO (08:05)
[2022-08-16] MEDS: Apixaban 5 MG TABLET PO ×2 (08:05→20:19)
[2022-08-16] MEDS: Metoprolol Succinate ER 100 MG TAB.ER.24H PO (08:05)
[2022-08-16] MEDS: Docusate Sodium 100 MG CAPSULE PO ×2 (08:05→20:19)
[2022-08-16] MEDS: Amiodarone HCL 200 MG TABLET PO (08:05)
[2022-08-16] MEDS: polyethylene glycoL 3350 17 GM POWD.PACK PO (08:05)
[2022-08-16] MEDS: 0.9 % Sodium Chloride Flush 3 ML SYRINGE IVFLUSH ×2 (08:06→16:45)
[2022-08-16 08:09] VITALS: BP 125/73; PULSE 88; O2SAT 93
[2022-08-16 11:12] LABS: Glucose, Whole Blood 246 mg/dL (60-115)
--- NOTE | 2022-08-16 11:18 | MHC.CLN ---
Addendum entered by Hanna Marks RD 08/16/22 14:17: ANDREZ DISCONTINUED DUE TO PRODUCT NOT AVAILABLE. CONTINUE ENSURE TID. PROVIDES ADDITIONAL 1050 KCALS, 60 G PROTEIN. Original Note: F/U SKIN WITH STAGE IV WOUND TO COCCYX, DTI TO RIGHT HEEL. PO INTAKE MOST MEALS 75-100%. DIET RX: DIABETIC 2200 KCALS-APPROPRIATE PT RECEIVING ENSURE TID PLUS ANDREZ BID. PROVIDES 1210 KCALS, 65 G PROTEIN WITH 100% ACCEPTANCE. CONTINUE TO MONITOR PO INTAKE. ENCOURAGE SUPPLEMENT FOR WOUND HEALING. RD TO FOLLOW WEEKLY.
--- NOTE | 2022-08-16 11:47 | P.PNIM_ITS ---
Subjective Subjective Date of Service: 08/16/22 Interval History: follow up for -decubital severe and safe placement. Review of Systems denies any abd pain or nausea or vomiting or fevers Physical Exam Vital Signs: Vital Signs: Last Vital Signs Temp 98 F 08/16/22 07:15 Pulse 88 08/16/22 08:09 Resp 18 08/16/22 07:15 BP 125/73 08/16/22 08:09 Pulse Ox 93 08/16/22 08:09 O2 Del Method 08/16/22 07:15 O2 Flow Rate 4 08/05/22 13:22 BMI result Body Mass Index 26.6 ? Appearance: Alert.? Oriented , not in distress.? cvs: rrr, [id number] , no murmur res: clear to auscultation ,no rhonchii or wheezing abd: no rebound or guarding ,nt, bs present. skin-skin area seems back decubtii-ulcer seems? improving ext pulses present , no cyanosis . neuro: axo3 , nonfocal. Objective Data Active Medications Acetaminophen (Acetaminophen 325 Mg Tablet) 650 mg PO Q6H PRN PRN Reason: Pain, Mild (Pain Scale 1-3) Last Admin: 08/16/22 08:05 Dose: 650 mg Documented By: ANA CRISTINA Amiodarone HCl (Amiodarone Hcl 200 Mg Tablet) 200 mg PO DAILY [facility] Last Admin: 08/16/22 08:05 Dose: 200 mg Documented By: ANA CRISTINA Apixaban (Apixaban 5 Mg Tablet) 5 mg PO BID [facility] Last Admin: 08/16/22 08:05 Dose: 5 mg Documented By: ANA CRISTINA Dextrose (Dextrose 50 % 25 Gm/50 Ml Syringe) 25 gm IVPUSH Q15M PRN; Protocol PRN Reason: per Hypoglycemia Standing Ord. Docusate Sodium (Docusate Sodium 100 Mg Capsule) 100 mg PO BID [facility] Last Admin: 08/16/22 08:05 Dose: 100 mg Documented By: ANA CRISTINA Ferrous Sulfate (Ferrous Sulfate 324 Mg Tablet.) 324 mg PO BIDWM [facility] Last Admin: 08/16/22 08:05 Dose: 324 mg Documented By: ANA CRISTINA Finasteride (Finasteride 5 Mg Tablet) 5 mg PO DAILY [facility] Last Admin: 08/16/22 08:04 Dose: 5 mg Documented By: ANA CRISTINA Glucose (Glucose Gel 15 Gm Gel..Gram.) 15 gm PO Q15M PRN; Protocol PRN Reason: per Hypoglycemia Standing Ord. Insulin Glargine (Insulin Glargine,Hum.Rec.Anlog 100 Unit/Ml 10 Ml Vial) 20 unit SUBCUT DAILY@0730 [facility] Last Admin: 08/16/22 08:05 Dose: 20 unit Documented By: ANA CRISTINA Insulin Glargine (Insulin Glargine,Hum.Rec.Anlog 100 Unit/Ml 10 Ml Vial) 5 unit SUBCUT BEDTIME [facility] Last Admin: 08/15/22 20:21 Dose: 5 unit Documented By: ODRISCinthya Insulin Human Lispro (Insulin Lispro 100 Unit/Ml 3 Ml Vial) 0 unit SUBCUT QIDACHS [facility]; Protocol Last Admin: 08/16/22 07:33 Dose: Not Given Documented By: ANA CRISTINA Non-Admin Reason: No Insulin Coverage Lidocaine (Lidocaine 4 % Patch Adh..Patch) 1 patch TRANSDERMA DAILY [facility]; Protocol Last Admin: 08/16/22 08:05 Dose: 1 patch Documented By: ANA CRISTINA Metoprolol Succinate (Metoprolol Succinate Er 100 Mg Tab.Er.24h) 100 mg PO DAILY [facility] Last Admin: 08/16/22 08:05 Dose: 100 mg Documented By: ANA CRISTINA Ondansetron HCl (Ondansetron Hcl 4 Mg/2 Ml Vial) 4 mg IVPUSH Q8H PRN PRN Reason: Nausea and Vomiting Last Admin: 07/07/22 01:05 Dose: 4 mg Documented By: MARIANN Ondansetron HCl (Ondansetron Hcl 4 Mg/2 Ml Vial) 4 mg IVPUSH ONCE PRN PRN Reason: Nausea and Vomiting Ondansetron HCl (Ondansetron Hcl 4 Mg/2 Ml Vial) 4 mg IVPUSH ONCE PRN PRN Reason: Nausea and Vomiting Pharmacy Consult (Consult Rx Perform Med Rec) 1 each MISCELLANE ONCE PRN PRN Reason: Consult order Polyethylene Glycol (Polyethylene Glycol 3350 17 Gm Powd.Pack) 17 gm PO DAILY PRN PRN Reason: constipation Last Admin: 08/06/22 08:19 Dose: 17 gm Documented By: ADRIANA Polyethylene Glycol (Polyethylene Glycol 3350 17 Gm Powd.Pack) 17 gm PO DAILY [facility] Last Admin: 08/16/22 08:05 Dose: 17 gm Documented By: COTEMA Sodium Chloride (0.9 % Sodium Chloride Flush 3 Ml Syringe) 3 ml IVFLUSH QSHIFT [facility] Last Admin: 08/16/22 08:06 Dose: 3 ml Documented By: COTEMA Sodium Hypochlorite (Sodium Hypochlorite 0.25% 473 Ml Solution) 1 appl TOPICAL BID [facility] Last Admin: 08/16/22 08:06 Dose: 1 appl Documented By: ANA CRISTINA Tamsulosin HCl (Tamsulosin Hcl 0.4 Mg Capsule) 0.8 mg PO DAILY [facility] Last Admin: 08/16/22 08:05 Dose: 0.8 mg Documented By: ANA CRISTINA Vitamin D (Cholecalciferol (Vitamin D3) 25 Mcg Tablet) 50 mcg PO DAILY [facility] Last Admin: 08/16/22 08:05 Dose: 50 mcg Documented By: ANA CRISTINA Zinc Acetate/Diphenhydramine (Diphenhydramine Hcl 2 % Cream 28 Gm Tube) 1 appl TOPICAL TID PRN; Protocol PRN Reason: itching Labs 08/03/22 05:08 08/03/22 05:08 Labs: Laboratory Results - last 24 hr 08/15/22 08/15/22 08/16/22 16:46 20:27 07:14 POC Glucose 274 H 224 H 145 H 08/16/22 11:07 POC Glucose 246 H Assessment and Plan (1) Status post excisional debridement: Status: Acute (2) Diabetes mellitus with coincident hypertension: Status: Acute (3) Hyperglycemia: Status: Acute Plan 74yo M with DM2, HTN, HLD, chronic venous stasis dermatitis presented with mechanical fall, admitted for hypoxia due to PNA Sacral decubitus ulcer. Unstageable, necrotic 10cm x10 cm with 4 cm depth frequent turn,air loss bed ,continue wound care Improving s/p debridements 07/08, 07/17, 1/2 s/p wound vac placement 07/22/22 - removed 07/25 after it became soiled continue wet to dry dressings , being followed by General surgery- d/w surgery - wound area seems improvin ,avoid wound vac because did not help. Atrial flutter/fib with RVR intermittently LVEF >70% continue toprol xl and Eliquis Episode of SVT vs atrial tachycardia 07/26 HR improved with IV Lopressor, finish loading dose of amiodarone and started on amiodarone 200 mg by mouth daily on August 07, continue Toprol XL Acute blood loss anemia. Resolved s/p blood loss at site of decub ulcer patient received 2 unit of packed RBC continue ferrous sulfate b.i.d. H/H stable Traumatic SAH CT brain 06/26 New small areas of extra-axial hemorrhage adjacent to the left posterior parietal lobe, bilateral occipital lobes and in the occipital horns of both lateral ventricles, repeat CT 06/28 unchanged seen by neuro - AC was held for two weeks no headache, no dizziness No other complications Acute hypoxic respiratory failure due to PNA. Resolved finished 10d of ABX back on room air Urinary retention failed voiding trial x2 continue tamsulosin and finasteride seen by urology, continue roberts upon discharge - outpatient urology follow up Hyponatremia resolved s/p urea cortisol, TSH wnl Mechanical fall difficulty ambulating; awaiting SNF placement generalized weakness 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 but not clinically NPH per Neurology incidental 1.3cm pancreatic lesions may reflect adjacent pancreatic cysts outpt MRI/MRCP DM2 with hyperglycemia continue Lantus, SSI adjusted . 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 Time Spent With Patient Time: Total time managing care of this patient today ____ minutes. Quality Stroke Does the patient have a stroke diagnosis?: No VTE Prior VTE?: No VTE Risk Level:: Medical - moderate - high VTE Device Contraindication: Treatment Not Indicated VTE Drug Contraindication: N/A - Med Ordered
[2022-08-16] MEDS: Insulin Lispro 100 UNIT/ML 3 ML VIAL SUBCUT ×3 (12:12→20:19)
--- NOTE | 2022-08-16 14:14 | MHC.CM.PN ---
UPDATED PT AND PN'S SENT TO SNFS THAT ARE FOLLOWING PT THERE ARE NO BED OFFERS AT THIS TIME CM WILL CONTINUE TO EXPAND/UPDATE REFERRALS
[2022-08-16 15:45] VITALS: BP 123/69; PULSE 86; RESP 20; TEMP 36.4; O2SAT 96
[2022-08-16 16:18] LABS: Glucose, Whole Blood 298 mg/dL (60-115)
[2022-08-16 19:18] VITALS: BP 112/67; PULSE 85; RESP 20; TEMP 36.6; O2SAT 94
[2022-08-16 19:40] LABS: Glucose, Whole Blood 368 mg/dL (60-115)
[2022-08-16] MEDS: Insulin Glargine,Hum.rec.anlog 100 UNIT/ML 10 ML VIAL SUBCUT (20:19)
[2022-08-17] MEDS: 0.9 % Sodium Chloride Flush 3 ML SYRINGE IVFLUSH ×2 (00:02→07:52)
[2022-08-17] MEDS: oxyCODONE HCl Immed Release 5 MG TABLET PO ×3 (02:23→16:12)
[2022-08-17 03:50] VITALS: BP 120/56; PULSE 95; RESP 18; TEMP 37; O2SAT 96
[2022-08-17 07:28] VITALS: BP 129/59; PULSE 88; RESP 18; TEMP 36.3; O2SAT 96
[2022-08-17 07:36] LABS: Glucose, Whole Blood 174 mg/dL (60-115)
[2022-08-17] MEDS: Tamsulosin HCL 0.4 MG CAPSULE 0.8 MG PO (07:50)
[2022-08-17] MEDS: Finasteride 5 MG TABLET PO (07:50)
[2022-08-17] MEDS: Cholecalciferol (Vitamin D3) 25 MCG TABLET 50 MCG PO (07:50)
[2022-08-17] MEDS: Amiodarone HCL 200 MG TABLET PO (07:51)
[2022-08-17] MEDS: Ferrous Sulfate 324 MG TABLET.DR PO ×2 (07:51→16:12)
[2022-08-17] MEDS: Docusate Sodium 100 MG CAPSULE PO (07:51)
[2022-08-17] MEDS: Apixaban 5 MG TABLET PO ×2 (07:51→20:35)
[2022-08-17] MEDS: Metoprolol Succinate ER 100 MG TAB.ER.24H PO (07:51)
[2022-08-17] MEDS: Insulin Glargine,Hum.rec.anlog 100 UNIT/ML 10 ML VIAL 20 UNIT SUBCUT (07:51)
[2022-08-17] MEDS: Insulin Lispro 100 UNIT/ML 3 ML VIAL SUBCUT ×4 (07:52→20:38)
[2022-08-17] MEDS: Lidocaine 4 % Patch ADH..PATCH 1 PATCH TRANSDERMA (07:53)
[2022-08-17] MEDS: polyethylene glycoL 3350 17 GM POWD.PACK PO (07:53)
[2022-08-17 12:02] LABS: Glucose, Whole Blood 290 mg/dL (60-115)
--- NOTE | 2022-08-17 15:14 | P.PNIM_ITS ---
Subjective Subjective Date of Service: 08/17/22 Interval History: follow up for -decubital severe and safe placement. Review of Systems denies any abd pain or nausea or vomiting or fevers Physical Exam Vital Signs: Vital Signs: Last Vital Signs Temp 97.3 F 08/17/22 07:28 Pulse 88 08/17/22 07:28 Resp 18 08/17/22 07:28 BP 129/59 L 08/17/22 07:28 Pulse Ox 96 08/17/22 07:28 O2 Del Method 08/17/22 07:28 O2 Flow Rate 4 08/05/22 13:22 BMI result Body Mass Index 26.6 Appearance: Alert.? Oriented , not in distress.? cvs: rrr, [id number] , no murmur res: clear to auscultation ,no rhonchii or wheezing abd: no rebound or guarding ,nt, bs present. skin-skin area seems back decubtii-ulcer seems? improving ext pulses present , no cyanosis . neuro: axo3 , nonfocal. Objective Data Active Medications Acetaminophen (Acetaminophen 325 Mg Tablet) 650 mg PO Q6H PRN PRN Reason: Pain, Mild (Pain Scale 1-3) Last Admin: 08/16/22 08:05 Dose: 650 mg Documented By: ANA CRISTINA Amiodarone HCl (Amiodarone Hcl 200 Mg Tablet) 200 mg PO DAILY [facility] Last Admin: 08/17/22 07:51 Dose: 200 mg Documented By: NETO Apixaban (Apixaban 5 Mg Tablet) 5 mg PO BID [facility] Last Admin: 08/17/22 07:51 Dose: 5 mg Documented By: NETO Dextrose (Dextrose 50 % 25 Gm/50 Ml Syringe) 25 gm IVPUSH Q15M PRN; Protocol PRN Reason: per Hypoglycemia Standing Ord. Docusate Sodium (Docusate Sodium 100 Mg Capsule) 100 mg PO BID [facility] Last Admin: 08/17/22 07:51 Dose: 100 mg Documented By: NETO Ferrous Sulfate (Ferrous Sulfate 324 Mg Tablet.) 324 mg PO BIDWM [facility] Last Admin: 08/17/22 07:51 Dose: 324 mg Documented By: NETO Finasteride (Finasteride 5 Mg Tablet) 5 mg PO DAILY [facility] Last Admin: 08/17/22 07:50 Dose: 5 mg Documented By: NETO Glucose (Glucose Gel 15 Gm Gel..Gram.) 15 gm PO Q15M PRN; Protocol PRN Reason: per Hypoglycemia Standing Ord. Insulin Glargine (Insulin Glargine,Hum.Rec.Anlog 100 Unit/Ml 10 Ml Vial) 20 unit SUBCUT DAILY@0730 [facility] Last Admin: 08/17/22 07:51 Dose: 20 unit Documented By: NETO Insulin Glargine (Insulin Glargine,Hum.Rec.Anlog 100 Unit/Ml 10 Ml Vial) 5 unit SUBCUT BEDTIME [facility] Last Admin: 08/16/22 20:19 Dose: 5 unit Documented By: TONNY Insulin Human Lispro (Insulin Lispro 100 Unit/Ml 3 Ml Vial) 0 unit SUBCUT QIDACHS [facility]; Protocol Last Admin: 08/17/22 11:59 Dose: 10 unit Documented By: NETO Lidocaine (Lidocaine 4 % Patch Adh..Patch) 1 patch TRANSDERMA DAILY [facility]; Protocol Last Admin: 08/17/22 07:53 Dose: 1 patch Documented By: NETO Metoprolol Succinate (Metoprolol Succinate Er 100 Mg Tab.Er.24h) 100 mg PO DAILY [facility] Last Admin: 08/17/22 07:51 Dose: 100 mg Documented By: NETO Ondansetron HCl (Ondansetron Hcl 4 Mg/2 Ml Vial) 4 mg IVPUSH Q8H PRN PRN Reason: Nausea and Vomiting Last Admin: 07/07/22 01:05 Dose: 4 mg Documented By: MARIANN Ondansetron HCl (Ondansetron Hcl 4 Mg/2 Ml Vial) 4 mg IVPUSH ONCE PRN PRN Reason: Nausea and Vomiting Ondansetron HCl (Ondansetron Hcl 4 Mg/2 Ml Vial) 4 mg IVPUSH ONCE PRN PRN Reason: Nausea and Vomiting Oxycodone HCl (Oxycodone Hcl Immed Release 5 Mg Tablet) 5 mg PO Q4H PRN PRN Reason: Pain, Severe (Pain Scale 7-10) Last Admin: 08/17/22 09:45 Dose: 5 mg Documented By: NETO Pharmacy Consult (Consult Rx Perform Med Rec) 1 each MISCELLANE ONCE PRN PRN Reason: Consult order Polyethylene Glycol (Polyethylene Glycol 3350 17 Gm Powd.Pack) 17 gm PO DAILY PRN PRN Reason: constipation Last Admin: 08/06/22 08:19 Dose: 17 gm Documented By: ADRIANA Polyethylene Glycol (Polyethylene Glycol 3350 17 Gm Powd.Pack) 17 gm PO DAILY [facility] Last Admin: 08/17/22 07:53 Dose: 17 gm Documented By: NETO Sodium Chloride (0.9 % Sodium Chloride Flush 3 Ml Syringe) 3 ml IVFLUSH QSHIFT [facility] Last Admin: 08/17/22 07:52 Dose: 3 ml Documented By: NETO Sodium Hypochlorite (Sodium Hypochlorite 0.25% 473 Ml Solution) 1 appl TOPICAL BID [facility] Last Admin: 08/17/22 10:27 Dose: 1 appl Documented By: NETO Tamsulosin HCl (Tamsulosin Hcl 0.4 Mg Capsule) 0.8 mg PO DAILY [facility] Last Admin: 08/17/22 07:50 Dose: 0.8 mg Documented By: NETO Vitamin D (Cholecalciferol (Vitamin D3) 25 Mcg Tablet) 50 mcg PO DAILY [facility] Last Admin: 08/17/22 07:50 Dose: 50 mcg Documented By: NETO Zinc Acetate/Diphenhydramine (Diphenhydramine Hcl 2 % Cream 28 Gm Tube) 1 appl TOPICAL TID PRN; Protocol PRN Reason: itching Labs 08/03/22 05:08 08/03/22 05:08 Labs: Laboratory Results - last 24 hr 08/16/22 08/16/22 08/17/22 16:08 19:37 07:31 POC Glucose 298 H 368 H* 174 H 08/17/22 11:32 POC Glucose 290 H Assessment and Plan (1) Stage 4 decubitus ulcer: Status: Acute Plan 74yo M with DM2, HTN, HLD, chronic venous stasis dermatitis presented with mechanical fall, admitted for hypoxia due to PNA Sacral decubitus ulcer.? Unstageable, necrotic 10cm x10 cm with 4 cm depth frequent turn,air loss? bed ,continue wound care Improving s/p debridements 07/08, 07/17, 1/2 s/p wound vac placement 07/22/22 - removed 07/25 after it became soiled continue wet to dry dressings , being followed by General surgery- d/w surgery - wound area seems improvin ,avoid wound vac because did not help. Atrial flutter/fib with RVR intermittently LVEF >70% continue toprol xl and Eliquis Episode of SVT vs atrial tachycardia 07/26 HR improved with IV Lopressor, finish loading dose of amiodarone and started on amiodarone 200 mg by mouth daily on August 07, continue Toprol XL Acute blood loss anemia. Resolved s/p blood loss at site of decub ulcer patient received 2 unit of packed RBC continue ferrous sulfate b.i.d. H/H stable Traumatic SAH CT brain 06/26 ? New small areas of extra-axial hemorrhage adjacent to the left posterior parietal lobe, bilateral occipital lobes and in the occipital horns of both lateral ventricles, repeat CT 06/28 unchanged seen by neuro - AC was held for two weeks no headache, no dizziness No other complications Acute hypoxic respiratory failure due to PNA. Resolved finished 10d of ABX back on room air Urinary retention failed voiding trial x2 continue tamsulosin and finasteride seen by urology, continue roberts upon discharge - outpatient urology follow up Hyponatremia resolved s/p urea cortisol, TSH wnl Mechanical fall difficulty ambulating; awaiting SNF placement generalized weakness 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 but not clinically NPH per Neurology incidental 1.3cm pancreatic lesions may reflect adjacent pancreatic cysts outpt MRI/MRCP DM2? with hyperglycemia continue Lantus, SSI adjusted . HTN Stable blood pressures, continue metoprolol losartan and hydralazine discontinued due to soft blood pressures HLD statin VTE ppx: SCDs,? eliquis Full code ongoin? 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 Time Spent With Patient Time: Total time managing care of this patient today ____ minutes. Quality Stroke Does the patient have a stroke diagnosis?: No VTE Prior VTE?: No VTE Risk Level:: Medical - moderate - high VTE Device Contraindication: Treatment Not Indicated VTE Drug Contraindication: N/A - Med Ordered
[2022-08-17 15:47] VITALS: BP 135/68; PULSE 79; RESP 18; TEMP 37; O2SAT 98
[2022-08-17 16:10] LABS: Glucose, Whole Blood 308 mg/dL (60-115)
[2022-08-17 20:00] VITALS: BP 137/60; PULSE 92; RESP 17; TEMP 36.9; O2SAT 96
[2022-08-17 20:15] LABS: Glucose, Whole Blood 223 mg/dL (60-115)
[2022-08-17] MEDS: Insulin Glargine,Hum.rec.anlog 100 UNIT/ML 10 ML VIAL SUBCUT (20:38)
[2022-08-18] MEDS: 0.9 % Sodium Chloride Flush 3 ML SYRINGE IVFLUSH ×4 (01:34→23:39)
[2022-08-18 03:37] VITALS: BP 119/57; PULSE 86; RESP 16; TEMP 36.8; O2SAT 95
[2022-08-18] MEDS: oxyCODONE HCl Immed Release 5 MG TABLET PO ×3 (04:47→21:57)
[2022-08-18 07:34] VITALS: BP 115/62; PULSE 81; RESP 18; TEMP 36.8; O2SAT 98
[2022-08-18 07:43] LABS: Glucose, Whole Blood 182 mg/dL (60-115)
[2022-08-18] MEDS: Insulin Glargine,Hum.rec.anlog 100 UNIT/ML 10 ML VIAL 20 UNIT SUBCUT (08:03)
[2022-08-18] MEDS: Amiodarone HCL 200 MG TABLET PO (08:04)
[2022-08-18] MEDS: Cholecalciferol (Vitamin D3) 25 MCG TABLET 50 MCG PO (08:04)
[2022-08-18] MEDS: Tamsulosin HCL 0.4 MG CAPSULE 0.8 MG PO (08:04)
[2022-08-18] MEDS: Insulin Lispro 100 UNIT/ML 3 ML VIAL SUBCUT ×4 (08:04→21:50)
[2022-08-18] MEDS: Ferrous Sulfate 324 MG TABLET.DR PO ×2 (08:04→17:13)
[2022-08-18] MEDS: Docusate Sodium 100 MG CAPSULE PO (08:04)
[2022-08-18] MEDS: Finasteride 5 MG TABLET PO (08:05)
[2022-08-18] MEDS: Lidocaine 4 % Patch ADH..PATCH 1 PATCH TRANSDERMA (08:05)
[2022-08-18] MEDS: Metoprolol Succinate ER 100 MG TAB.ER.24H PO (08:05)
[2022-08-18] MEDS: Apixaban 5 MG TABLET PO ×2 (09:11→21:49)
--- NOTE | 2022-08-18 11:35 | HO.PM.IMPN ---
Subjective Subjective Date of Service: 08/18/22 Interval History: follow up for -decubital severe and safe placement. Review of Systems denies any abd pain or nausea or vomiting or fevers Physical Exam Vital Signs: Vital Signs: Last Vital Signs Temp 98.3 F 08/18/22 07:34 Pulse 81 08/18/22 07:34 Resp 18 08/18/22 07:34 BP 115/62 08/18/22 07:34 Pulse Ox 98 08/18/22 07:34 O2 Del Method 08/18/22 07:34 O2 Flow Rate 4 08/05/22 13:22 BMI result Body Mass Index 26.6 Appearance: Alert.? Oriented , not in distress.? cvs: rrr, [id number] , no murmur res: clear to auscultation ,no rhonchii or wheezing abd: no rebound or guarding ,nt, bs present. skin-skin area seems back decubtii-ulcer seems? improving ext pulses present , no cyanosis . neuro: axo3 , nonfocal. Objective Data Active Medications Acetaminophen (Acetaminophen 325 Mg Tablet) 650 mg PO Q6H PRN PRN Reason: Pain, Mild (Pain Scale 1-3) Last Admin: 08/16/22 08:05 Dose: 650 mg Documented By: ANA CRISTINA Amiodarone HCl (Amiodarone Hcl 200 Mg Tablet) 200 mg PO DAILY [facility] Last Admin: 08/18/22 08:04 Dose: 200 mg Documented By: NETO Apixaban (Apixaban 5 Mg Tablet) 5 mg PO BID [facility] Last Admin: 08/18/22 09:11 Dose: 5 mg Documented By: NETO Dextrose (Dextrose 50 % 25 Gm/50 Ml Syringe) 25 gm IVPUSH Q15M PRN; Protocol PRN Reason: per Hypoglycemia Standing Ord. Docusate Sodium (Docusate Sodium 100 Mg Capsule) 100 mg PO BID [facility] Last Admin: 08/18/22 08:04 Dose: 100 mg Documented By: NETO Ferrous Sulfate (Ferrous Sulfate 324 Mg Tablet.) 324 mg PO BIDWM [facility] Last Admin: 08/18/22 08:04 Dose: 324 mg Documented By: NETO Finasteride (Finasteride 5 Mg Tablet) 5 mg PO DAILY [facility] Last Admin: 08/18/22 08:05 Dose: 5 mg Documented By: NETO Glucose (Glucose Gel 15 Gm Gel..Gram.) 15 gm PO Q15M PRN; Protocol PRN Reason: per Hypoglycemia Standing Ord. Insulin Glargine (Insulin Glargine,Hum.Rec.Anlog 100 Unit/Ml 10 Ml Vial) 20 unit SUBCUT DAILY@0730 [facility] Last Admin: 08/18/22 08:03 Dose: 20 unit Documented By: NETO Insulin Glargine (Insulin Glargine,Hum.Rec.Anlog 100 Unit/Ml 10 Ml Vial) 5 unit SUBCUT BEDTIME [facility] Last Admin: 08/17/22 20:38 Dose: 5 unit Documented By: ALLY Insulin Human Lispro (Insulin Lispro 100 Unit/Ml 3 Ml Vial) 0 unit SUBCUT QIDACHS [facility]; Protocol Last Admin: 08/18/22 08:04 Dose: 4 unit Documented By: NETO Lidocaine (Lidocaine 4 % Patch Adh..Patch) 1 patch TRANSDERMA DAILY [facility]; Protocol Last Admin: 08/18/22 08:05 Dose: 1 patch Documented By: NETO Metoprolol Succinate (Metoprolol Succinate Er 100 Mg Tab.Er.24h) 100 mg PO DAILY [facility] Last Admin: 08/18/22 08:05 Dose: 100 mg Documented By: NETO Ondansetron HCl (Ondansetron Hcl 4 Mg/2 Ml Vial) 4 mg IVPUSH Q8H PRN PRN Reason: Nausea and Vomiting Last Admin: 07/07/22 01:05 Dose: 4 mg Documented By: MARIANN Ondansetron HCl (Ondansetron Hcl 4 Mg/2 Ml Vial) 4 mg IVPUSH ONCE PRN PRN Reason: Nausea and Vomiting Ondansetron HCl (Ondansetron Hcl 4 Mg/2 Ml Vial) 4 mg IVPUSH ONCE PRN PRN Reason: Nausea and Vomiting Oxycodone HCl (Oxycodone Hcl Immed Release 5 Mg Tablet) 5 mg PO Q4H PRN PRN Reason: Pain, Severe (Pain Scale 7-10) Last Admin: 08/18/22 11:21 Dose: 5 mg Documented By: BRENDA Pharmacy Consult (Consult Rx Perform Med Rec) 1 each MISCELLANE ONCE PRN PRN Reason: Consult order Polyethylene Glycol (Polyethylene Glycol 3350 17 Gm Powd.Pack) 17 gm PO DAILY PRN PRN Reason: constipation Last Admin: 08/06/22 08:19 Dose: 17 gm Documented By: ADRIANA Polyethylene Glycol (Polyethylene Glycol 3350 17 Gm Powd.Pack) 17 gm PO DAILY [facility] Last Admin: 08/18/22 08:05 Dose: Not Given Documented By: NETO Non-Admin Reason: pt has loose stools Sodium Chloride (0.9 % Sodium Chloride Flush 3 Ml Syringe) 3 ml IVFLUSH QSHIFT [facility] Last Admin: 08/18/22 08:03 Dose: 3 ml Documented By: NETO Sodium Hypochlorite (Sodium Hypochlorite 0.25% 473 Ml Solution) 1 appl TOPICAL BID [facility] Last Admin: 08/18/22 08:05 Dose: 1 appl Documented By: NETO Tamsulosin HCl (Tamsulosin Hcl 0.4 Mg Capsule) 0.8 mg PO DAILY [facility] Last Admin: 08/18/22 08:04 Dose: 0.8 mg Documented By: NETO Vitamin D (Cholecalciferol (Vitamin D3) 25 Mcg Tablet) 50 mcg PO DAILY [facility] Last Admin: 08/18/22 08:04 Dose: 50 mcg Documented By: NETO Zinc Acetate/Diphenhydramine (Diphenhydramine Hcl 2 % Cream 28 Gm Tube) 1 appl TOPICAL TID PRN; Protocol PRN Reason: itching Labs 08/03/22 05:08 08/03/22 05:08 Labs: Laboratory Results - last 24 hr 08/17/22 08/17/22 08/17/22 11:32 16:06 20:07 POC Glucose 290 H 308 H 223 H 08/18/22 07:38 POC Glucose 182 H Assessment and Plan (1) Stage 4 decubitus ulcer: Status: Acute Plan 74yo M with DM2, HTN, HLD, chronic venous stasis dermatitis presented with mechanical fall, admitted for hypoxia due to PNA Sacral decubitus ulcer.? Unstageable, necrotic 10cm x10 cm with 4 cm depth frequent turn,air loss? bed ,continue wound care Improving s/p debridements 07/08, 07/17, 1/2 s/p wound vac placement 07/22/22 - removed 07/25 after it became soiled continue wet to dry dressings , being followed by General surgery- d/w surgery -wound area seems improvin ,avoid wound vac because did not help. Atrial flutter/fib with RVR intermittently LVEF >70% continue toprol xl and Eliquis Episode of SVT vs atrial tachycardia 07/26 HR improved with IV Lopressor, finish loading dose of amiodarone and started on amiodarone 200 mg by mouth daily on August 07, continue Toprol XL Acute blood loss anemia. Resolved s/p blood loss at site of decub ulcer patient received 2 unit of packed RBC continue ferrous sulfate b.i.d. H/H stable Traumatic SAH CT brain 06/26 ? New small areas of extra-axial hemorrhage adjacent to the left posterior parietal lobe, bilateral occipital lobes and in the occipital horns of both lateral ventricles, repeat CT 06/28 unchanged seen by neuro - AC was held for two weeks no headache, no dizziness No other complications Acute hypoxic respiratory failure due to PNA. Resolved finished 10d of ABX back on room air Urinary retention failed voiding trial x2 continue tamsulosin and finasteride seen by urology, continue roberts upon discharge - outpatient urology follow up Hyponatremia resolved s/p urea cortisol, TSH wnl Mechanical fall difficulty ambulating; awaiting SNF placement generalized weakness 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 but not clinically NPH per Neurology incidental 1.3cm pancreatic lesions may reflect adjacent pancreatic cysts outpt MRI/MRCP DM2? with hyperglycemia continue Lantus, SSI adjusted . HTN Stable blood pressures, continue metoprolol losartan and hydralazine discontinued due to soft blood pressures HLD statin VTE ppx: SCDs,? eliquis Full code ongoin? 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 Time Spent With Patient Time: Total time managing care of this patient today ____ minutes. Quality Stroke Does the patient have a stroke diagnosis?: No VTE Prior VTE?: No VTE Risk Level:: Medical - moderate - high VTE Device Contraindication: Treatment Not Indicated VTE Drug Contraindication: N/A - Med Ordered
[2022-08-18 12:11] LABS: Glucose, Whole Blood 324 mg/dL (60-115)
[2022-08-18 15:15] VITALS: BP 118/57; PULSE 94; RESP 18; TEMP 37.1; O2SAT 98
[2022-08-18] MEDS: oxyCODONE HCl Immed Release 5 MG TABLET 10 MG PO (15:40)
[2022-08-18 16:32] LABS: Glucose, Whole Blood 281 mg/dL (60-115)
[2022-08-18 19:20] VITALS: BP 132/60; PULSE 78; RESP 18; TEMP 37.1; O2SAT 97
[2022-08-18 20:01] LABS: Glucose, Whole Blood 163 mg/dL (60-115)
[2022-08-18] MEDS: Insulin Glargine,Hum.rec.anlog 100 UNIT/ML 10 ML VIAL SUBCUT (21:51)
[2022-08-18] MEDS: Acetaminophen 325 MG TABLET 650 MG PO (21:57)
[2022-08-19 02:31] VITALS: BP 125/58; PULSE 82; RESP 18; TEMP 36.1; O2SAT 96
[2022-08-19] MEDS: oxyCODONE HCl Immed Release 5 MG TABLET PO ×3 (06:00→21:19)
[2022-08-19 07:35] VITALS: BP 105/54; PULSE 82; RESP 18; TEMP 36.6; O2SAT 95
[2022-08-19 07:43] LABS: Glucose, Whole Blood 148 mg/dL (60-115)
[2022-08-19] MEDS: Tamsulosin HCL 0.4 MG CAPSULE 0.8 MG PO (08:06)
[2022-08-19] MEDS: Apixaban 5 MG TABLET PO ×2 (08:06→21:19)
[2022-08-19] MEDS: Metoprolol Succinate ER 100 MG TAB.ER.24H PO (08:06)
[2022-08-19] MEDS: Cholecalciferol (Vitamin D3) 25 MCG TABLET 50 MCG PO (08:06)
[2022-08-19] MEDS: Ferrous Sulfate 324 MG TABLET.DR PO ×2 (08:06→16:56)
[2022-08-19] MEDS: Amiodarone HCL 200 MG TABLET PO (08:06)
[2022-08-19] MEDS: Docusate Sodium 100 MG CAPSULE PO ×2 (08:06→21:19)
[2022-08-19] MEDS: polyethylene glycoL 3350 17 GM POWD.PACK PO (08:07)
[2022-08-19] MEDS: Finasteride 5 MG TABLET PO (08:07)
[2022-08-19] MEDS: Lidocaine 4 % Patch ADH..PATCH 1 PATCH TRANSDERMA (08:08)
[2022-08-19] MEDS: 0.9 % Sodium Chloride Flush 3 ML SYRINGE IVFLUSH ×3 (08:17→23:55)
[2022-08-19] MEDS: Insulin Glargine,Hum.rec.anlog 100 UNIT/ML 10 ML VIAL 20 UNIT SUBCUT (08:21)
--- NOTE | 2022-08-19 08:27 | HO.PM.IMPN ---
Subjective Subjective Date of Service: 08/19/22 Interval History: follow up for -decubital severe and safe placement. Review of Systems denies any abd pain or nausea or vomiting or fevers Physical Exam Vital Signs: Vital Signs: Last Vital Signs Temp 97.9 F 08/19/22 07:35 Pulse 82 08/19/22 07:35 Resp 18 08/19/22 07:35 BP 105/54 L 08/19/22 07:35 Pulse Ox 95 08/19/22 07:35 O2 Del Method 08/19/22 07:35 O2 Flow Rate 4 08/05/22 13:22 BMI result Body Mass Index 26.6 ?Appearance: Alert.? Oriented , not in distress.? cvs: rrr, [id number] , no murmur res: clear to auscultation ,no rhonchii or wheezing abd: no rebound or guarding ,nt, bs present. skin-skin area seems back decubtii-ulcer seems? improving ext pulses present , no cyanosis . neuro: axo3 , nonfocal. Objective Data Active Medications Acetaminophen (Acetaminophen 325 Mg Tablet) 650 mg PO Q6H PRN PRN Reason: Pain, Mild (Pain Scale 1-3) Last Admin: 08/18/22 21:57 Dose: 650 mg Documented By: KUSUM Amiodarone HCl (Amiodarone Hcl 200 Mg Tablet) 200 mg PO DAILY [facility] Last Admin: 08/19/22 08:06 Dose: 200 mg Documented By: NADEGE Apixaban (Apixaban 5 Mg Tablet) 5 mg PO BID [facility] Last Admin: 08/19/22 08:06 Dose: 5 mg Documented By: NADEGE Dextrose (Dextrose 50 % 25 Gm/50 Ml Syringe) 25 gm IVPUSH Q15M PRN; Protocol PRN Reason: per Hypoglycemia Standing Ord. Docusate Sodium (Docusate Sodium 100 Mg Capsule) 100 mg PO BID [facility] Last Admin: 08/19/22 08:06 Dose: 100 mg Documented By: NADEGE Ferrous Sulfate (Ferrous Sulfate 324 Mg Tablet.) 324 mg PO BIDWM [facility] Last Admin: 08/19/22 08:06 Dose: 324 mg Documented By: NADEGE Finasteride (Finasteride 5 Mg Tablet) 5 mg PO DAILY [facility] Last Admin: 08/19/22 08:07 Dose: 5 mg Documented By: NADEGE Glucose (Glucose Gel 15 Gm Gel..Gram.) 15 gm PO Q15M PRN; Protocol PRN Reason: per Hypoglycemia Standing Ord. Insulin Glargine (Insulin Glargine,Hum.Rec.Anlog 100 Unit/Ml 10 Ml Vial) 20 unit SUBCUT DAILY@0730 [facility] Last Admin: 08/19/22 08:21 Dose: 20 unit Documented By: NADEGE Insulin Glargine (Insulin Glargine,Hum.Rec.Anlog 100 Unit/Ml 10 Ml Vial) 5 unit SUBCUT BEDTIME [facility] Last Admin: 08/18/22 21:51 Dose: 5 unit Documented By: KUSUM Insulin Human Lispro (Insulin Lispro 100 Unit/Ml 3 Ml Vial) 0 unit SUBCUT QIDACHS [facility]; Protocol Last Admin: 08/19/22 08:19 Dose: Not Given Documented By: NADEGE Non-Admin Reason: No Insulin Coverage Lidocaine (Lidocaine 4 % Patch Adh..Patch) 1 patch TRANSDERMA DAILY [facility]; Protocol Last Admin: 08/19/22 08:08 Dose: 1 patch Documented By: NADEGE Metoprolol Succinate (Metoprolol Succinate Er 100 Mg Tab.Er.24h) 100 mg PO DAILY [facility] Last Admin: 08/19/22 08:06 Dose: 100 mg Documented By: NADEGE Ondansetron HCl (Ondansetron Hcl 4 Mg/2 Ml Vial) 4 mg IVPUSH Q8H PRN PRN Reason: Nausea and Vomiting Last Admin: 07/07/22 01:05 Dose: 4 mg Documented By: MARIANN Ondansetron HCl (Ondansetron Hcl 4 Mg/2 Ml Vial) 4 mg IVPUSH ONCE PRN PRN Reason: Nausea and Vomiting Ondansetron HCl (Ondansetron Hcl 4 Mg/2 Ml Vial) 4 mg IVPUSH ONCE PRN PRN Reason: Nausea and Vomiting Oxycodone HCl (Oxycodone Hcl Immed Release 5 Mg Tablet) 5 mg PO Q4H PRN PRN Reason: Pain, Severe (Pain Scale 7-10) Last Admin: 08/19/22 06:00 Dose: 5 mg Documented By: HO.N-PIERM Pharmacy Consult (Consult Rx Perform Med Rec) 1 each MISCELLANE ONCE PRN PRN Reason: Consult order Polyethylene Glycol (Polyethylene Glycol 3350 17 Gm Powd.Pack) 17 gm PO DAILY PRN PRN Reason: constipation Last Admin: 08/06/22 08:19 Dose: 17 gm Documented By: ADRIANA Polyethylene Glycol (Polyethylene Glycol 3350 17 Gm Powd.Pack) 17 gm PO DAILY [facility] Last Admin: 08/19/22 08:07 Dose: 17 gm Documented By: NADEGE Sodium Chloride (0.9 % Sodium Chloride Flush 3 Ml Syringe) 3 ml IVFLUSH QSHIFT [facility] Last Admin: 08/19/22 08:17 Dose: 3 ml Documented By: NADEEG Sodium Hypochlorite (Sodium Hypochlorite 0.25% 473 Ml Solution) 1 appl TOPICAL BID [facility] Last Admin: 08/18/22 22:06 Dose: 1 appl Documented By: KUSUM Tamsulosin HCl (Tamsulosin Hcl 0.4 Mg Capsule) 0.8 mg PO DAILY [facility] Last Admin: 08/19/22 08:06 Dose: 0.8 mg Documented By: NADEGE Vitamin D (Cholecalciferol (Vitamin D3) 25 Mcg Tablet) 50 mcg PO DAILY [facility] Last Admin: 08/19/22 08:06 Dose: 50 mcg Documented By: NADEGE Zinc Acetate/Diphenhydramine (Diphenhydramine Hcl 2 % Cream 28 Gm Tube) 1 appl TOPICAL TID PRN; Protocol PRN Reason: itching Labs 08/03/22 05:08 08/03/22 05:08 Labs: Laboratory Results - last 24 hr 08/18/22 08/18/22 08/18/22 11:29 16:22 19:31 POC Glucose 324 H 281 H 163 H 08/19/22 07:36 POC Glucose 148 H Assessment and Plan (1) Stage 4 decubitus ulcer: Status: Acute Plan 74yo M with DM2, HTN, HLD, chronic venous stasis dermatitis presented with mechanical fall, admitted for hypoxia due to PNA Sacral decubitus ulcer.? Unstageable, necrotic 10cm x10 cm with 4 cm depth frequent turn,air loss? bed ,continue wound care Improving s/p debridements 07/08, 07/17, 1/2 s/p wound vac placement 07/22/22 - removed 07/25 after it became soiled continue wet to dry dressings , being followed by General surgery- d/w surgery -wound area seems improvin ,avoid wound vac because did not help. Atrial flutter/fib with RVR intermittently LVEF >70% continue toprol xl and Eliquis Episode of SVT vs atrial tachycardia 07/26 HR improved with IV Lopressor, finish loading dose of amiodarone and started on amiodarone 200 mg by mouth daily on August 07, continue Toprol XL Acute blood loss anemia. Resolved s/p blood loss at site of decub ulcer patient received 2 unit of packed RBC continue ferrous sulfate b.i.d. H/H stable Traumatic SAH CT brain 06/26 ? New small areas of extra-axial hemorrhage adjacent to the left posterior parietal lobe, bilateral occipital lobes and in the occipital horns of both lateral ventricles, repeat CT 06/28 unchanged seen by neuro - AC was held for two weeks no headache, no dizziness No other complications Acute hypoxic respiratory failure due to PNA. Resolved finished 10d of ABX back on room air Urinary retention failed voiding trial x2 continue tamsulosin and finasteride seen by urology, continue roberts upon discharge - outpatient urology follow up Hyponatremia resolved s/p urea cortisol, TSH wnl Mechanical fall difficulty ambulating; awaiting SNF placement generalized weakness 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 but not clinically NPH per Neurology incidental 1.3cm pancreatic lesions may reflect adjacent pancreatic cysts outpt MRI/MRCP DM2? with hyperglycemia continue Lantus, SSI adjusted . HTN Stable blood pressures, continue metoprolol losartan and hydralazine discontinued due to soft blood pressures HLD statin VTE ppx: SCDs,? eliquis Full code ongoin? 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 Time Spent With Patient Time: Total time managing care of this patient today ____ minutes. Quality Stroke Does the patient have a stroke diagnosis?: No VTE Prior VTE?: No VTE Risk Level:: Medical - moderate - high VTE Device Contraindication: Treatment Not Indicated VTE Drug Contraindication: N/A - Med Ordered
[2022-08-19 11:32] LABS: Glucose, Whole Blood 329 mg/dL (60-115)
[2022-08-19] MEDS: Insulin Lispro 100 UNIT/ML 3 ML VIAL SUBCUT ×3 (11:54→21:19)
[2022-08-19 15:05] VITALS: BP 110/52; PULSE 88; RESP 18; TEMP 36.9; O2SAT 97
[2022-08-19 15:51] LABS: Glucose, Whole Blood 326 mg/dL (60-115)
[2022-08-19 16:00] VITALS: BP 110/52; PULSE 88; O2SAT 97
[2022-08-19 19:05] VITALS: BP 127/58; PULSE 89; RESP 18; TEMP 37.1; O2SAT 93
[2022-08-19 20:53] LABS: Glucose, Whole Blood 276 mg/dL (60-115)
[2022-08-19] MEDS: Insulin Glargine,Hum.rec.anlog 100 UNIT/ML 10 ML VIAL SUBCUT (21:20)
[2022-08-20 03:02] VITALS: BP 128/58; PULSE 84; RESP 18; TEMP 36.8; O2SAT 98
[2022-08-20] MEDS: oxyCODONE HCl Immed Release 5 MG TABLET PO ×3 (03:47→22:44)
[2022-08-20] MEDS: Acetaminophen 325 MG TABLET 650 MG PO ×2 (04:55→22:44)
[2022-08-20 07:22] LABS: Glucose, Whole Blood 172 mg/dL (60-115)
[2022-08-20 07:40] VITALS: BP 118/56; PULSE 76; RESP 18; TEMP 36.6; O2SAT 98
[2022-08-20 07:50] VITALS: BP 118/56; PULSE 76; O2SAT 98
[2022-08-20] MEDS: Tamsulosin HCL 0.4 MG CAPSULE 0.8 MG PO (07:54)
[2022-08-20] MEDS: Docusate Sodium 100 MG CAPSULE PO ×2 (07:54→21:30)
[2022-08-20] MEDS: Apixaban 5 MG TABLET PO ×2 (07:55→21:30)
[2022-08-20] MEDS: Ferrous Sulfate 324 MG TABLET.DR PO ×2 (07:55→16:16)
[2022-08-20] MEDS: Amiodarone HCL 200 MG TABLET PO (07:55)
[2022-08-20] MEDS: Insulin Lispro 100 UNIT/ML 3 ML VIAL SUBCUT ×4 (07:56→21:31)
[2022-08-20] MEDS: Cholecalciferol (Vitamin D3) 25 MCG TABLET 50 MCG PO (07:56)
[2022-08-20] MEDS: Metoprolol Succinate ER 100 MG TAB.ER.24H PO (07:56)
[2022-08-20] MEDS: Finasteride 5 MG TABLET PO (07:57)
[2022-08-20] MEDS: polyethylene glycoL 3350 17 GM POWD.PACK PO (07:57)
[2022-08-20] MEDS: Lidocaine 4 % Patch ADH..PATCH 1 PATCH TRANSDERMA (07:58)
[2022-08-20] MEDS: 0.9 % Sodium Chloride Flush 3 ML SYRINGE IVFLUSH ×3 (07:58→21:32)
[2022-08-20] MEDS: Insulin Glargine,Hum.rec.anlog 100 UNIT/ML 10 ML VIAL 20 UNIT SUBCUT (07:59)
[2022-08-20 11:55] LABS: Glucose, Whole Blood 250 mg/dL (60-115)
--- NOTE | 2022-08-20 14:08 | PM.EVENT ---
Event Note Date of Service: 08/20/22 Event Note: Pt awaiting placement, no new issues. Seen and examined. Continue prior care Time Spent With Patient Time: Total time managing care of this patient today ____ minutes.
[2022-08-20 15:13] VITALS: BP 122/59; PULSE 105; RESP 18; TEMP 36.8; O2SAT 99
[2022-08-20 16:21] LABS: Glucose, Whole Blood 236 mg/dL (60-115)
[2022-08-20 19:27] VITALS: BP 123/60; PULSE 77; RESP 18; TEMP 36.4; O2SAT 94
[2022-08-20 20:40] LABS: Glucose, Whole Blood 156 mg/dL (60-115)
[2022-08-20] MEDS: Insulin Glargine,Hum.rec.anlog 100 UNIT/ML 10 ML VIAL SUBCUT (21:31)
[2022-08-21 03:47] VITALS: BP 140/66; PULSE 75; RESP 18; TEMP 36.6; O2SAT 99
[2022-08-21 07:48] VITALS: BP 125/60; PULSE 78; RESP 20; TEMP 36.7; O2SAT 95
[2022-08-21 07:50] LABS: Glucose, Whole Blood 136 mg/dL (60-115)
[2022-08-21] MEDS: Amiodarone HCL 200 MG TABLET PO (08:21)
[2022-08-21] MEDS: Ferrous Sulfate 324 MG TABLET.DR PO ×2 (08:21→16:59)
[2022-08-21] MEDS: Finasteride 5 MG TABLET PO (08:21)
[2022-08-21] MEDS: Apixaban 5 MG TABLET PO ×2 (08:21→21:02)
[2022-08-21] MEDS: Metoprolol Succinate ER 100 MG TAB.ER.24H PO (08:21)
[2022-08-21] MEDS: Docusate Sodium 100 MG CAPSULE PO ×2 (08:21→21:01)
[2022-08-21] MEDS: Cholecalciferol (Vitamin D3) 25 MCG TABLET 50 MCG PO (08:22)
[2022-08-21] MEDS: Tamsulosin HCL 0.4 MG CAPSULE 0.8 MG PO (08:22)
[2022-08-21] MEDS: Lidocaine 4 % Patch ADH..PATCH 1 PATCH TRANSDERMA (08:22)
[2022-08-21] MEDS: Insulin Glargine,Hum.rec.anlog 100 UNIT/ML 10 ML VIAL 20 UNIT SUBCUT (08:22)
[2022-08-21] MEDS: polyethylene glycoL 3350 17 GM POWD.PACK PO (08:22)
[2022-08-21] MEDS: 0.9 % Sodium Chloride Flush 3 ML SYRINGE IVFLUSH ×3 (08:22→21:04)
--- NOTE | 2022-08-21 10:34 | HO.PM.IMPN ---
Subjective Subjective Date of Service: 08/21/22 Interval History: awaiting placement, no new issues Physical Exam Vital Signs: Vital Signs: Last Vital Signs Temp 98.1 F 08/21/22 07:48 Pulse 78 08/21/22 07:48 Resp 20 08/21/22 07:48 BP 125/60 08/21/22 07:48 Pulse Ox 95 08/21/22 07:48 O2 Del Method 08/21/22 07:48 O2 Flow Rate 4 08/05/22 13:22 BMI result Body Mass Index 26.6 Const: Other: General: AO X 1, no acute distress Resp: CTA bilateral CVS: S1,S2,RRR GI: +BS, NT, no distention Skin: decub ulcer Neuro: motor grossly intact Psych: appropriate affect Objective Data Active Medications Acetaminophen (Acetaminophen 325 Mg Tablet) 650 mg PO Q6H PRN PRN Reason: Pain, Mild (Pain Scale 1-3) Last Admin: 08/20/22 22:44 Dose: 650 mg Documented By: SU Amiodarone HCl (Amiodarone Hcl 200 Mg Tablet) 200 mg PO DAILY [facility] Last Admin: 08/21/22 08:21 Dose: 200 mg Documented By: OSMEL Apixaban (Apixaban 5 Mg Tablet) 5 mg PO BID [facility] Last Admin: 08/21/22 08:21 Dose: 5 mg Documented By: OSMEL Dextrose (Dextrose 50 % 25 Gm/50 Ml Syringe) 25 gm IVPUSH Q15M PRN; Protocol PRN Reason: per Hypoglycemia Standing Ord. Docusate Sodium (Docusate Sodium 100 Mg Capsule) 100 mg PO BID [facility] Last Admin: 08/21/22 08:21 Dose: 100 mg Documented By: OSMEL Ferrous Sulfate (Ferrous Sulfate 324 Mg Tablet.Dr) 324 mg PO BIDWM [facility] Last Admin: 08/21/22 08:21 Dose: 324 mg Documented By: OSMEL Finasteride (Finasteride 5 Mg Tablet) 5 mg PO DAILY [facility] Last Admin: 08/21/22 08:21 Dose: 5 mg Documented By: OSMEL Glucose (Glucose Gel 15 Gm Gel..Gram.) 15 gm PO Q15M PRN; Protocol PRN Reason: per Hypoglycemia Standing Ord. Insulin Glargine (Insulin Glargine,Hum.Rec.Anlog 100 Unit/Ml 10 Ml Vial) 20 unit SUBCUT DAILY@0730 [facility] Last Admin: 08/21/22 08:22 Dose: 20 unit Documented By: OSMEL Insulin Glargine (Insulin Glargine,Hum.Rec.Anlog 100 Unit/Ml 10 Ml Vial) 5 unit SUBCUT BEDTIME [facility] Last Admin: 08/20/22 21:31 Dose: 5 unit Documented By: SU Insulin Human Lispro (Insulin Lispro 100 Unit/Ml 3 Ml Vial) 0 unit SUBCUT QIDACHS [facility]; Protocol Last Admin: 08/21/22 07:53 Dose: Not Given Documented By: OSMEL Non-Admin Reason: No Insulin Coverage Lidocaine (Lidocaine 4 % Patch Adh..Patch) 1 patch TRANSDERMA DAILY [facility]; Protocol Last Admin: 08/21/22 08:22 Dose: 1 patch Documented By: OSMEL Metoprolol Succinate (Metoprolol Succinate Er 100 Mg Tab.Er.24h) 100 mg PO DAILY [facility] Last Admin: 08/21/22 08:21 Dose: 100 mg Documented By: OSMEL Ondansetron HCl (Ondansetron Hcl 4 Mg/2 Ml Vial) 4 mg IVPUSH Q8H PRN PRN Reason: Nausea and Vomiting Last Admin: 07/07/22 01:05 Dose: 4 mg Documented By: MARIANN Ondansetron HCl (Ondansetron Hcl 4 Mg/2 Ml Vial) 4 mg IVPUSH ONCE PRN PRN Reason: Nausea and Vomiting Ondansetron HCl (Ondansetron Hcl 4 Mg/2 Ml Vial) 4 mg IVPUSH ONCE PRN PRN Reason: Nausea and Vomiting Oxycodone HCl (Oxycodone Hcl Immed Release 5 Mg Tablet) 5 mg PO Q4H PRN PRN Reason: Pain, Severe (Pain Scale 7-10) Last Admin: 08/20/22 22:44 Dose: 5 mg Documented By: SU Pharmacy Consult (Consult Rx Perform Med Rec) 1 each MISCELLANE ONCE PRN PRN Reason: Consult order Polyethylene Glycol (Polyethylene Glycol 3350 17 Gm Powd.Pack) 17 gm PO DAILY PRN PRN Reason: constipation Last Admin: 08/06/22 08:19 Dose: 17 gm Documented By: ADRIANA Polyethylene Glycol (Polyethylene Glycol 3350 17 Gm Powd.Pack) 17 gm PO DAILY [facility] Last Admin: 08/21/22 08:22 Dose: 17 gm Documented By: OSMEL Sodium Chloride (0.9 % Sodium Chloride Flush 3 Ml Syringe) 3 ml IVFLUSH QSHIFT [facility] Last Admin: 08/21/22 08:22 Dose: 3 ml Documented By: OSMEL Sodium Hypochlorite (Sodium Hypochlorite 0.25% 473 Ml Solution) 1 appl TOPICAL BID [facility] Last Admin: 08/21/22 08:23 Dose: 1 appl Documented By: OSMEL Tamsulosin HCl (Tamsulosin Hcl 0.4 Mg Capsule) 0.8 mg PO DAILY [facility] Last Admin: 08/21/22 08:22 Dose: 0.8 mg Documented By: OSMEL Vitamin D (Cholecalciferol (Vitamin D3) 25 Mcg Tablet) 50 mcg PO DAILY [facility] Last Admin: 08/21/22 08:22 Dose: 50 mcg Documented By: OSMEL Zinc Acetate/Diphenhydramine (Diphenhydramine Hcl 2 % Cream 28 Gm Tube) 1 appl TOPICAL TID PRN; Protocol PRN Reason: itching Labs 08/03/22 05:08 08/03/22 05:08 Labs: Laboratory Results - last 24 hr 08/20/22 08/20/22 08/20/22 11:50 16:17 20:37 POC Glucose 250 H 236 H 156 H 08/21/22 07:21 POC Glucose 136 H Assessment and Plan (1) Stage 4 decubitus ulcer: Status: Acute Plan 74yo M with DM2, HTN, HLD, chronic venous stasis dermatitis presented with mechanical fall, admitted for hypoxia due to PNA Sacral decubitus ulcer.? Unstageable, necrotic 10cm x10 cm with 4 cm depth frequent turn,air loss? bed ,continue wound care Improving s/p debridements 07/08, 07/17, 1 s/p wound vac placement 07/22/22 - removed 07/25 after it became soiled continue wet to dry dressings , being followed by General surgery- d/w surgery -wound area seems improvin ,avoid wound vac because did not help. Atrial flutter/fib with RVR intermittently LVEF >70% continue toprol xl and Eliquis Episode of SVT vs atrial tachycardia 07/26 HR improved with IV Lopressor, finish loading dose of amiodarone and started on amiodarone 200 mg by mouth daily on August 07, continue Toprol XL Acute blood loss anemia. Resolved s/p blood loss at site of decub ulcer patient received 2 unit of packed RBC continue ferrous sulfate b.i.d. H/H stable Traumatic SAH CT brain 06/26 ? New small areas of extra-axial hemorrhage adjacent to the left posterior parietal lobe, bilateral occipital lobes and in the occipital horns of both lateral ventricles, repeat CT 06/28 unchanged seen by neuro - AC was held for two weeks no headache, no dizziness No other complications Acute hypoxic respiratory failure due to PNA. Resolved finished 10d of ABX back on room air Urinary retention failed voiding trial x2 continue tamsulosin and finasteride seen by urology, continue roberts upon discharge - outpatient urology follow up Hyponatremia resolved s/p urea cortisol, TSH wnl Mechanical fall difficulty ambulating; awaiting SNF placement generalized weakness 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 but not clinically NPH per Neurology incidental 1.3cm pancreatic lesions may reflect adjacent pancreatic cysts outpt MRI/MRCP DM2? with hyperglycemia continue Lantus, SSI adjusted . HTN Stable blood pressures, continue metoprolol losartan and hydralazine discontinued due to soft blood pressures HLD statin VTE ppx: SCDs,? eliquis Full code ongoin? 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 Time Spent With Patient Time: Total time managing care of this patient today ____ minutes. Quality Stroke Does the patient have a stroke diagnosis?: No VTE Prior VTE?: No VTE Risk Level:: Medical - moderate - high VTE Device Contraindication: Treatment Not Indicated VTE Drug Contraindication: N/A - Med Ordered
--- NOTE | 2022-08-21 11:26 | PC.NURSE ---
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
[2022-08-21 11:35] LABS: Glucose, Whole Blood 375 mg/dL (60-115)
[2022-08-21] MEDS: Insulin Lispro 100 UNIT/ML 3 ML VIAL SUBCUT ×3 (11:56→21:02)
[2022-08-21] MEDS: oxyCODONE HCl Immed Release 5 MG TABLET PO (12:55)
[2022-08-21 16:00] VITALS: BP 134/64; PULSE 82; RESP 18; TEMP 36.7; O2SAT 96
[2022-08-21 16:08] LABS: Glucose, Whole Blood 213 mg/dL (60-115)
[2022-08-21 19:26] VITALS: BP 121/58; PULSE 77; RESP 18; TEMP 36.7; O2SAT 94
[2022-08-21 19:46] LABS: Glucose, Whole Blood 248 mg/dL (60-115)
[2022-08-21] MEDS: Acetaminophen 325 MG TABLET 650 MG PO (21:02)
[2022-08-21] MEDS: Insulin Glargine,Hum.rec.anlog 100 UNIT/ML 10 ML VIAL SUBCUT (21:03)
[2022-08-22 03:21] VITALS: BP 149/77; PULSE 77; RESP 18; TEMP 36.6; O2SAT 98
[2022-08-22 07:43] VITALS: BP 130/59; PULSE 82; RESP 16; TEMP 36.2; O2SAT 95
[2022-08-22 07:48] LABS: Glucose, Whole Blood 111 mg/dL (60-115)
[2022-08-22] MEDS: Insulin Glargine,Hum.rec.anlog 100 UNIT/ML 10 ML VIAL 20 UNIT SUBCUT (08:35)
[2022-08-22] MEDS: 0.9 % Sodium Chloride Flush 3 ML SYRINGE IVFLUSH ×3 (08:36→21:01)
[2022-08-22] MEDS: Docusate Sodium 100 MG CAPSULE PO ×2 (08:37→20:58)
[2022-08-22] MEDS: Metoprolol Succinate ER 100 MG TAB.ER.24H PO (08:37)
[2022-08-22] MEDS: Ferrous Sulfate 324 MG TABLET.DR PO ×2 (08:37→17:13)
[2022-08-22] MEDS: Tamsulosin HCL 0.4 MG CAPSULE 0.8 MG PO (08:37)
[2022-08-22] MEDS: Cholecalciferol (Vitamin D3) 25 MCG TABLET 50 MCG PO (08:37)
[2022-08-22] MEDS: Amiodarone HCL 200 MG TABLET PO (08:37)
[2022-08-22] MEDS: Apixaban 5 MG TABLET PO ×2 (08:37→20:58)
[2022-08-22] MEDS: polyethylene glycoL 3350 17 GM POWD.PACK PO (08:38)
[2022-08-22] MEDS: Lidocaine 4 % Patch ADH..PATCH 1 PATCH TRANSDERMA (08:38)
[2022-08-22] MEDS: Finasteride 5 MG TABLET PO (08:38)
[2022-08-22 08:44] VITALS: BP 130/59; PULSE 82; O2SAT 95
--- NOTE | 2022-08-22 08:57 | HO.PM.IMPN ---
Subjective Subjective Date of Service: 08/22/22 Interval History: awaiting placement, no new issues, Pt seen and examined with RN and PT has difficulty maneuvering on his own Physical Exam Vital Signs: Vital Signs: Last Vital Signs Temp 97.1 F 08/22/22 07:43 Pulse 82 08/22/22 08:44 Resp 16 08/22/22 07:43 BP 130/59 L 08/22/22 08:44 Pulse Ox 95 08/22/22 08:44 O2 Del Method 08/22/22 07:43 O2 Flow Rate 4 08/05/22 13:22 BMI result Body Mass Index 26.6 Const: Other: General: AO X 1, no acute distress Resp: CTA bilateral CVS: S1,S2,RRR GI: +BS, NT, no distention Skin: decub ulcer Neuro: motor grossly intact Psych: appropriate affect Objective Data Active Medications Acetaminophen (Acetaminophen 325 Mg Tablet) 650 mg PO Q6H PRN PRN Reason: Pain, Mild (Pain Scale 1-3) Last Admin: 08/21/22 21:02 Dose: 650 mg Documented By: MARIANN Amiodarone HCl (Amiodarone Hcl 200 Mg Tablet) 200 mg PO DAILY [facility] Last Admin: 08/22/22 08:37 Dose: 200 mg Documented By: OSMEL Apixaban (Apixaban 5 Mg Tablet) 5 mg PO BID [facility] Last Admin: 08/22/22 08:37 Dose: 5 mg Documented By: OSMEL Dextrose (Dextrose 50 % 25 Gm/50 Ml Syringe) 25 gm IVPUSH Q15M PRN; Protocol PRN Reason: per Hypoglycemia Standing Ord. Docusate Sodium (Docusate Sodium 100 Mg Capsule) 100 mg PO BID [facility] Last Admin: 08/22/22 08:37 Dose: 100 mg Documented By: OSMEL Ferrous Sulfate (Ferrous Sulfate 324 Mg Tablet.Dr) 324 mg PO BIDWM [facility] Last Admin: 08/22/22 08:37 Dose: 324 mg Documented By: OSMEL Finasteride (Finasteride 5 Mg Tablet) 5 mg PO DAILY [facility] Last Admin: 08/22/22 08:38 Dose: 5 mg Documented By: OSMEL Glucose (Glucose Gel 15 Gm Gel..Gram.) 15 gm PO Q15M PRN; Protocol PRN Reason: per Hypoglycemia Standing Ord. Insulin Glargine (Insulin Glargine,Hum.Rec.Anlog 100 Unit/Ml 10 Ml Vial) 20 unit SUBCUT DAILY@0730 [facility] Last Admin: 08/22/22 08:35 Dose: 20 unit Documented By: OSMEL Insulin Glargine (Insulin Glargine,Hum.Rec.Anlog 100 Unit/Ml 10 Ml Vial) 5 unit SUBCUT BEDTIME [facility] Last Admin: 08/21/22 21:03 Dose: 5 unit Documented By: MARIANN Insulin Human Lispro (Insulin Lispro 100 Unit/Ml 3 Ml Vial) 0 unit SUBCUT QIDACHS [facility]; Protocol Last Admin: 08/22/22 07:53 Dose: Not Given Documented By: OSMEL Non-Admin Reason: No Insulin Coverage Lidocaine (Lidocaine 4 % Patch Adh..Patch) 1 patch TRANSDERMA DAILY [facility]; Protocol Last Admin: 08/22/22 08:38 Dose: 1 patch Documented By: OSMEL Metoprolol Succinate (Metoprolol Succinate Er 100 Mg Tab.Er.24h) 100 mg PO DAILY [facility] Last Admin: 08/22/22 08:37 Dose: 100 mg Documented By: OSMEL Ondansetron HCl (Ondansetron Hcl 4 Mg/2 Ml Vial) 4 mg IVPUSH Q8H PRN PRN Reason: Nausea and Vomiting Last Admin: 07/07/22 01:05 Dose: 4 mg Documented By: MARIANN Ondansetron HCl (Ondansetron Hcl 4 Mg/2 Ml Vial) 4 mg IVPUSH ONCE PRN PRN Reason: Nausea and Vomiting Ondansetron HCl (Ondansetron Hcl 4 Mg/2 Ml Vial) 4 mg IVPUSH ONCE PRN PRN Reason: Nausea and Vomiting Pharmacy Consult (Consult Rx Perform Med Rec) 1 each MISCELLANE ONCE PRN PRN Reason: Consult order Polyethylene Glycol (Polyethylene Glycol 3350 17 Gm Powd.Pack) 17 gm PO DAILY PRN PRN Reason: constipation Last Admin: 08/06/22 08:19 Dose: 17 gm Documented By: ADRIANA Polyethylene Glycol (Polyethylene Glycol 3350 17 Gm Powd.Pack) 17 gm PO DAILY [facility] Last Admin: 08/22/22 08:38 Dose: 17 gm Documented By: OSMEL Sodium Chloride (0.9 % Sodium Chloride Flush 3 Ml Syringe) 3 ml IVFLUSH QSHIFT [facility] Last Admin: 08/22/22 08:36 Dose: 3 ml Documented By: OSMEL Sodium Hypochlorite (Sodium Hypochlorite 0.25% 473 Ml Solution) 1 appl TOPICAL BID [facility] Last Admin: 08/21/22 21:14 Dose: 1 appl Documented By: CASTILCinthya Tamsulosin HCl (Tamsulosin Hcl 0.4 Mg Capsule) 0.8 mg PO DAILY [facility] Last Admin: 08/22/22 08:37 Dose: 0.8 mg Documented By: OSMEL Vitamin D (Cholecalciferol (Vitamin D3) 25 Mcg Tablet) 50 mcg PO DAILY [facility] Last Admin: 08/22/22 08:37 Dose: 50 mcg Documented By: OSMEL Zinc Acetate/Diphenhydramine (Diphenhydramine Hcl 2 % Cream 28 Gm Tube) 1 appl TOPICAL TID PRN; Protocol PRN Reason: itching Labs 08/03/22 05:08 08/03/22 05:08 Labs: Laboratory Results - last 24 hr 08/21/22 08/21/22 08/21/22 11:29 16:05 19:20 POC Glucose 375 H* 213 H 248 H 08/22/22 07:07 POC Glucose 111 Assessment and Plan (1) Stage 4 decubitus ulcer: Status: Acute Plan 74yo M with DM2, HTN, HLD, chronic venous stasis dermatitis presented with mechanical fall, admitted for hypoxia due to PNA Sacral decubitus ulcer.? Unstageable, necrotic 10cm x10 cm with 4 cm depth frequent turn,air loss? bed ,continue wound care Improving s/p debridements 07/08, 07/17, 1/2 s/p wound vac placement 07/22/22 - removed 07/25 after it became soiled continue wet to dry dressings , being followed by General surgery- d/w surgery - wound vac not helping and would avoid Atrial flutter/fib, rate stable LVEF >70% continue toprol xl and Eliquis Episode of SVT vs atrial tachycardia 07/26 HR improved with IV Lopressor, finish loading dose of amiodarone and started on amiodarone 200 mg by mouth daily on August 07, continue Toprol XL Acute blood loss anemia. Resolved s/p blood loss at site of decub ulcer patient received 2 unit of packed RBC continue ferrous sulfate b.i.d. H/H stable CBC check periodically Traumatic SAH CT brain 06/26 ? New small areas of extra-axial hemorrhage adjacent to the left posterior parietal lobe, bilateral occipital lobes and in the occipital horns of both lateral ventricles, repeat CT 06/28 unchanged seen by neuro - AC was held for two weeks no headache, no dizziness No other complications Acute hypoxic respiratory failure due to PNA. Resolved finished 10d of ABX back on room air Urinary retention failed voiding trial x2 continue tamsulosin and finasteride seen by urology, continue roberts upon discharge - outpatient urology follow up Hyponatremia resolved s/p urea cortisol, TSH wnl Mechanical fall difficulty ambulating; awaiting SNF placement, PT has been working with him I do not think he will walk again generalized weakness 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 but not clinically NPH per Neurology incidental 1.3cm pancreatic lesions may reflect adjacent pancreatic cysts outpt MRI/MRCP DM2? with hyperglycemia continue Lantus, SSI adjusted . HTN Stable blood pressures, continue metoprolol losartan and hydralazine discontinued due to soft blood pressures HLD statin VTE ppx: SCDs,? eliquis Full code ongoin? 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 Time Spent With Patient Time: Total time managing care of this patient today ____ minutes. Quality Stroke Does the patient have a stroke diagnosis?: No VTE Prior VTE?: No VTE Risk Level:: Medical - moderate - high VTE Device Contraindication: Treatment Not Indicated VTE Drug Contraindication: N/A - Med Ordered
[2022-08-22 12:01] LABS: Glucose, Whole Blood 282 mg/dL (60-115)
[2022-08-22] MEDS: Insulin Lispro 100 UNIT/ML 3 ML VIAL SUBCUT ×3 (12:07→20:58)
[2022-08-22] MEDS: oxyCODONE HCl Immed Release 5 MG TABLET PO (13:58)
[2022-08-22] MEDS: Acetaminophen 325 MG TABLET 650 MG PO (13:58)
--- NOTE | 2022-08-22 14:49 | MHC.CM.PN ---
PT CONTINUES TO REQUIRE [place] PLAC[place] [facility] [place] APPLICATION AND AWAITING SOCIAL SECURITY STATEMENT A REFERRAL HAS BEEN BROADCASTED REFERRAL UPDATED AND EXPANDED TODAY NO BED OFFERS AT THIS TIME
[2022-08-22 16:51] LABS: Glucose, Whole Blood 193 mg/dL (60-115)
[2022-08-22 19:16] VITALS: BP 107/51; PULSE 86; RESP 18; TEMP 37.1; O2SAT 97
[2022-08-22 20:45] LABS: Glucose, Whole Blood 236 mg/dL (60-115)
[2022-08-22] MEDS: Insulin Glargine,Hum.rec.anlog 100 UNIT/ML 10 ML VIAL SUBCUT (21:00)
[2022-08-23 03:32] VITALS: BP 145/73; PULSE 80; RESP 18; TEMP 36.8; O2SAT 95
[2022-08-23] MEDS: oxyCODONE HCl Immed Release 5 MG TABLET PO ×5 (03:49→23:12)
[2022-08-23 07:20] VITALS: BP 139/65; PULSE 81; RESP 18; TEMP 36.8; O2SAT 98
[2022-08-23] MEDS: 0.9 % Sodium Chloride Flush 3 ML SYRINGE IVFLUSH ×3 (07:27→19:54)
[2022-08-23] MEDS: Ferrous Sulfate 324 MG TABLET.DR PO ×2 (07:30→17:13)
[2022-08-23 07:36] VITALS: BP 139/65; PULSE 81; O2SAT 98
[2022-08-23] MEDS: Lidocaine 4 % Patch ADH..PATCH 1 PATCH TRANSDERMA (07:59)
[2022-08-23] MEDS: Tamsulosin HCL 0.4 MG CAPSULE 0.8 MG PO (07:59)
[2022-08-23] MEDS: Apixaban 5 MG TABLET PO ×2 (08:00→19:54)
[2022-08-23] MEDS: Amiodarone HCL 200 MG TABLET PO (08:00)
[2022-08-23] MEDS: Docusate Sodium 100 MG CAPSULE PO ×2 (08:00→19:53)
[2022-08-23] MEDS: Finasteride 5 MG TABLET PO (08:00)
[2022-08-23] MEDS: Insulin Glargine,Hum.rec.anlog 100 UNIT/ML 10 ML VIAL 20 UNIT SUBCUT (08:00)
[2022-08-23] MEDS: Metoprolol Succinate ER 100 MG TAB.ER.24H PO (08:00)
[2022-08-23] MEDS: Insulin Lispro 100 UNIT/ML 3 ML VIAL SUBCUT ×4 (08:01→19:54)
[2022-08-23] MEDS: polyethylene glycoL 3350 17 GM POWD.PACK PO (08:01)
[2022-08-23] MEDS: Cholecalciferol (Vitamin D3) 25 MCG TABLET 50 MCG PO (08:02)
[2022-08-23 08:04] LABS: Glucose, Whole Blood 180 mg/dL (60-115)
--- NOTE | 2022-08-23 09:37 | HO.PM.IMPN ---
Subjective Subjective Date of Service: 08/23/22 Interval History: awaiting placement, no new issues, Pt seen and examined with RN and PT has difficulty maneuvering on his own and will need rehab Physical Exam Vital Signs: Vital Signs: Last Vital Signs Temp 98.3 F 08/23/22 07:20 Pulse 81 08/23/22 07:36 Resp 18 08/23/22 07:20 BP 139/65 08/23/22 07:36 Pulse Ox 98 08/23/22 07:36 O2 Del Method 08/23/22 07:20 O2 Flow Rate 4 08/05/22 13:22 BMI result Body Mass Index 26.6 Const: Other: General: AO X 1, no acute distress Resp: CTA bilateral CVS: S1,S2,RRR GI: +BS, NT, no distention Skin: decub ulcer stable Neuro: motor grossly intact Psych: appropriate affect Objective Data Active Medications Acetaminophen (Acetaminophen 325 Mg Tablet) 650 mg PO Q6H PRN PRN Reason: Pain, Mild (Pain Scale 1-3) Last Admin: 08/22/22 13:58 Dose: 650 mg Documented By: OSMEL Amiodarone HCl (Amiodarone Hcl 200 Mg Tablet) 200 mg PO DAILY [facility] Last Admin: 08/23/22 08:00 Dose: 200 mg Documented By: MERLYN Apixaban (Apixaban 5 Mg Tablet) 5 mg PO BID [facility] Last Admin: 08/23/22 08:00 Dose: 5 mg Documented By: MERLYN Dextrose (Dextrose 50 % 25 Gm/50 Ml Syringe) 25 gm IVPUSH Q15M PRN; Protocol PRN Reason: per Hypoglycemia Standing Ord. Docusate Sodium (Docusate Sodium 100 Mg Capsule) 100 mg PO BID [facility] Last Admin: 08/23/22 08:00 Dose: 100 mg Documented By: MERLYN Ferrous Sulfate (Ferrous Sulfate 324 Mg Tablet.Dr) 324 mg PO BIDWM [facility] Last Admin: 08/23/22 07:30 Dose: 324 mg Documented By: BRENDA Finasteride (Finasteride 5 Mg Tablet) 5 mg PO DAILY [facility] Last Admin: 08/23/22 08:00 Dose: 5 mg Documented By: MERLYN Glucose (Glucose Gel 15 Gm Gel..Gram.) 15 gm PO Q15M PRN; Protocol PRN Reason: per Hypoglycemia Standing Ord. Insulin Glargine (Insulin Glargine,Hum.Rec.Anlog 100 Unit/Ml 10 Ml Vial) 20 unit SUBCUT DAILY@0730 [facility] Last Admin: 08/23/22 08:00 Dose: 20 unit Documented By: MERLYN Insulin Glargine (Insulin Glargine,Hum.Rec.Anlog 100 Unit/Ml 10 Ml Vial) 5 unit SUBCUT BEDTIME [facility] Last Admin: 08/22/22 21:00 Dose: 5 unit Documented By: MARIANN Insulin Human Lispro (Insulin Lispro 100 Unit/Ml 3 Ml Vial) 0 unit SUBCUT QIDACHS [facility]; Protocol Last Admin: 08/23/22 08:01 Dose: 4 unit Documented By: MERLYN Lidocaine (Lidocaine 4 % Patch Adh..Patch) 1 patch TRANSDERMA DAILY [facility]; Protocol Last Admin: 08/23/22 07:59 Dose: 1 patch Documented By: MERLYN Metoprolol Succinate (Metoprolol Succinate Er 100 Mg Tab.Er.24h) 100 mg PO DAILY [facility] Last Admin: 08/23/22 08:00 Dose: 100 mg Documented By: MERLYN Ondansetron HCl (Ondansetron Hcl 4 Mg/2 Ml Vial) 4 mg IVPUSH Q8H PRN PRN Reason: Nausea and Vomiting Last Admin: 07/07/22 01:05 Dose: 4 mg Documented By: MARIANN Ondansetron HCl (Ondansetron Hcl 4 Mg/2 Ml Vial) 4 mg IVPUSH ONCE PRN PRN Reason: Nausea and Vomiting Ondansetron HCl (Ondansetron Hcl 4 Mg/2 Ml Vial) 4 mg IVPUSH ONCE PRN PRN Reason: Nausea and Vomiting Oxycodone HCl (Oxycodone Hcl Immed Release 5 Mg Tablet) 5 mg PO Q4H PRN PRN Reason: Pain, Severe (Pain Scale 7-10) Last Admin: 08/23/22 07:30 Dose: 5 mg Documented By: BRENDA Pharmacy Consult (Consult Rx Perform Med Rec) 1 each MISCELLANE ONCE PRN PRN Reason: Consult order Polyethylene Glycol (Polyethylene Glycol 3350 17 Gm Powd.Pack) 17 gm PO DAILY PRN PRN Reason: constipation Last Admin: 08/06/22 08:19 Dose: 17 gm Documented By: ADRIANA Polyethylene Glycol (Polyethylene Glycol 3350 17 Gm Powd.Pack) 17 gm PO DAILY [facility] Last Admin: 08/23/22 08:01 Dose: 17 gm Documented By: MERLYN Sodium Chloride (0.9 % Sodium Chloride Flush 3 Ml Syringe) 3 ml IVFLUSH QSHIFT [facility] Last Admin: 08/23/22 07:27 Dose: 3 ml Documented By: BRENDA Sodium Hypochlorite (Sodium Hypochlorite 0.25% 473 Ml Solution) 1 appl TOPICAL BID [facility] Last Admin: 08/22/22 21:01 Dose: 1 appl Documented By: CASTILCinthya Tamsulosin HCl (Tamsulosin Hcl 0.4 Mg Capsule) 0.8 mg PO DAILY [facility] Last Admin: 08/23/22 07:59 Dose: 0.8 mg Documented By: MERLYN Vitamin D (Cholecalciferol (Vitamin D3) 25 Mcg Tablet) 50 mcg PO DAILY [facility] Last Admin: 08/23/22 08:02 Dose: 50 mcg Documented By: MERLYN Zinc Acetate/Diphenhydramine (Diphenhydramine Hcl 2 % Cream 28 Gm Tube) 1 appl TOPICAL TID PRN; Protocol PRN Reason: itching Labs 08/03/22 05:08 08/03/22 05:08 Labs: Laboratory Results - last 24 hr 08/22/22 08/22/22 08/22/22 11:34 16:48 20:37 POC Glucose 282 H 193 H 236 H 08/23/22 07:08 POC Glucose 180 H Assessment and Plan (1) Stage 4 decubitus ulcer: Status: Acute Plan 74yo M with DM2, HTN, HLD, chronic venous stasis dermatitis presented with mechanical fall, admitted for hypoxia due to PNA Sacral decubitus ulcer.? Unstageable, necrotic 10cm x10 cm with 4 cm depth frequent turn,air loss? bed ,continue wound care Improving s/p debridements 07/08, 07/17, 1/2 s/p wound vac placement 07/22/22 - removed 07/25 after it became soiled continue wet to dry dressings , being followed by General surgery- d/w surgery - wound vac not helping and would avoid Atrial flutter/fib, rate stable LVEF >70% continue toprol xl and Eliquis Episode of SVT vs atrial tachycardia 07/26 HR improved with IV Lopressor, finish loading dose of amiodarone and started on amiodarone 200 mg by mouth daily on August 07, continue Toprol XL Acute blood loss anemia. Resolved s/p blood loss at site of decub ulcer patient received 2 unit of packed RBC continue ferrous sulfate b.i.d. H/H stable CBC check periodically Traumatic SAH CT brain 06/26 ? New small areas of extra-axial hemorrhage adjacent to the left posterior parietal lobe, bilateral occipital lobes and in the occipital horns of both lateral ventricles, repeat CT 06/28 unchanged seen by neuro - AC was held for two weeks no headache, no dizziness No other complications Acute hypoxic respiratory failure due to PNA. Resolved finished 10d of ABX back on room air Urinary retention failed voiding trial x2 continue tamsulosin and finasteride seen by urology, continue roberts upon discharge - outpatient urology follow up Hyponatremia resolved s/p urea cortisol, TSH wnl Mechanical fall difficulty ambulating; awaiting SNF placement, PT has been working with him I do not think he will walk again generalized weakness 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 but not clinically NPH per Neurology incidental 1.3cm pancreatic lesions may reflect adjacent pancreatic cysts outpt MRI/MRCP DM2? with hyperglycemia continue Lantus, SSI adjusted . HTN Stable blood pressures, continue metoprolol losartan and hydralazine discontinued due to soft blood pressures HLD statin VTE ppx: SCDs,? eliquis Full code ongoin? 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 Time Spent With Patient Time: Total time managing care of this patient today ____ minutes. Quality Stroke Does the patient have a stroke diagnosis?: No VTE Prior VTE?: No VTE Risk Level:: Medical - moderate - high VTE Device Contraindication: Treatment Not Indicated VTE Drug Contraindication: N/A - Med Ordered
[2022-08-23 11:30] LABS: Glucose, Whole Blood 298 mg/dL (60-115)
--- NOTE | 2022-08-23 12:04 | MHC.CM.PN ---
EM[facility] REVIEWED, PT REMAINS MEDICALLY CLEARED FOR D/C, CM RECEIVED UPDATE ON STATUS OF [facility], PER FS THEY RECEIVED A LETTER FROM YESTERDAY REQUESTING ADDITIONAL INFORMATION, PT DOES NOT YET HAVE A MH NUMBER AND FS WILL REACH OUT TO PT'S POA/HCP MARYA. CM WILL CONT TO FOLLOW REFERRALS AND D/C NEEDS.
--- NOTE | 2022-08-23 12:18 | MHC.CLN ---
F/U PO INTAKE MOST MEALS 75-100% DIET RX: DIABETIC 2200 KCALS-APPROPRIATE PT RECEIVING ENSURE TID PROVIDES 1050 KCALS, 60 G PROTEIN WITH 100% ACCEPTANCE CONTINUE TO MONITOR PO INTAKE AND SUPPLEMENT ACCEPTANCE RD TO CONTINUE TO FOLLOW WEEKLY
[2022-08-23 15:05] VITALS: BP 133/65; PULSE 89; RESP 18; TEMP 36.4; O2SAT 96
[2022-08-23 16:40] LABS: Glucose, Whole Blood 288 mg/dL (60-115)
[2022-08-23 19:42] LABS: Glucose, Whole Blood 272 mg/dL (60-115)
[2022-08-23] MEDS: Insulin Glargine,Hum.rec.anlog 100 UNIT/ML 10 ML VIAL SUBCUT (19:54)
[2022-08-23] MEDS: Acetaminophen 325 MG TABLET 650 MG PO (23:11)
[2022-08-24 03:10] VITALS: BP 106/45; PULSE 74; RESP 18; TEMP 36.6; O2SAT 93
[2022-08-24 07:13] VITALS: BP 115/56; PULSE 76; RESP 18; TEMP 36; O2SAT 97
--- NOTE | 2022-08-24 07:27 | HO.PM.IMPN ---
Subjective Subjective Date of Service: 08/24/22 Interval History: awaiting placement, no new issues, Pt seen and examined , discussed with RN has difficulty maneuvering on his own and will need rehab Physical Exam Vital Signs: Vital Signs: Last Vital Signs Temp 96.8 F 08/24/22 07:13 Pulse 76 08/24/22 07:13 Resp 18 08/24/22 07:13 BP 115/56 L 08/24/22 07:13 Pulse Ox 97 08/24/22 07:13 O2 Del Method 08/24/22 07:13 O2 Flow Rate 4 08/05/22 13:22 BMI result Body Mass Index 26.6 Const: Other: General: AO X 1, no acute distress Resp: CTA bilateral CVS: S1,S2,RRR GI: +BS, NT, no distention Skin: decub ulcer stable Neuro: motor grossly intact Psych: appropriate affect Objective Data Active Medications Acetaminophen (Acetaminophen 325 Mg Tablet) 650 mg PO Q6H PRN PRN Reason: Pain, Mild (Pain Scale 1-3) Last Admin: 08/23/22 23:11 Dose: 650 mg Documented By: SU Amiodarone HCl (Amiodarone Hcl 200 Mg Tablet) 200 mg PO DAILY [facility] Last Admin: 08/23/22 08:00 Dose: 200 mg Documented By: MERLYN Apixaban (Apixaban 5 Mg Tablet) 5 mg PO BID [facility] Last Admin: 08/23/22 19:54 Dose: 5 mg Documented By: SU Dextrose (Dextrose 50 % 25 Gm/50 Ml Syringe) 25 gm IVPUSH Q15M PRN; Protocol PRN Reason: per Hypoglycemia Standing Ord. Docusate Sodium (Docusate Sodium 100 Mg Capsule) 100 mg PO BID [facility] Last Admin: 08/23/22 19:53 Dose: 100 mg Documented By: SU Ferrous Sulfate (Ferrous Sulfate 324 Mg Tablet.) 324 mg PO BIDWM [facility] Last Admin: 08/23/22 17:13 Dose: 324 mg Documented By: MERLYN Finasteride (Finasteride 5 Mg Tablet) 5 mg PO DAILY [facility] Last Admin: 08/23/22 08:00 Dose: 5 mg Documented By: MERLYN Glucose (Glucose Gel 15 Gm Gel..Gram.) 15 gm PO Q15M PRN; Protocol PRN Reason: per Hypoglycemia Standing Ord. Insulin Glargine (Insulin Glargine,Hum.Rec.Anlog 100 Unit/Ml 10 Ml Vial) 20 unit SUBCUT DAILY@0730 [facility] Last Admin: 08/23/22 08:00 Dose: 20 unit Documented By: MERLYN Insulin Glargine (Insulin Glargine,Hum.Rec.Anlog 100 Unit/Ml 10 Ml Vial) 5 unit SUBCUT BEDTIME [facility] Last Admin: 08/23/22 19:54 Dose: 5 unit Documented By: SU Insulin Human Lispro (Insulin Lispro 100 Unit/Ml 3 Ml Vial) 0 unit SUBCUT QIDACHS [facility]; Protocol Last Admin: 08/23/22 19:54 Dose: 10 unit Documented By: SU Lidocaine (Lidocaine 4 % Patch Adh..Patch) 1 patch TRANSDERMA DAILY [facility]; Protocol Last Admin: 08/23/22 07:59 Dose: 1 patch Documented By: MERLYN Metoprolol Succinate (Metoprolol Succinate Er 100 Mg Tab.Er.24h) 100 mg PO DAILY [facility] Last Admin: 08/23/22 08:00 Dose: 100 mg Documented By: MERLYN Ondansetron HCl (Ondansetron Hcl 4 Mg/2 Ml Vial) 4 mg IVPUSH Q8H PRN PRN Reason: Nausea and Vomiting Last Admin: 07/07/22 01:05 Dose: 4 mg Documented By: MARIANN Ondansetron HCl (Ondansetron Hcl 4 Mg/2 Ml Vial) 4 mg IVPUSH ONCE PRN PRN Reason: Nausea and Vomiting Ondansetron HCl (Ondansetron Hcl 4 Mg/2 Ml Vial) 4 mg IVPUSH ONCE PRN PRN Reason: Nausea and Vomiting Oxycodone HCl (Oxycodone Hcl Immed Release 5 Mg Tablet) 5 mg PO Q4H PRN PRN Reason: Pain, Severe (Pain Scale 7-10) Last Admin: 08/23/22 23:12 Dose: 5 mg Documented By: SU Pharmacy Consult (Consult Rx Perform Med Rec) 1 each MISCELLANE ONCE PRN PRN Reason: Consult order Polyethylene Glycol (Polyethylene Glycol 3350 17 Gm Powd.Pack) 17 gm PO DAILY PRN PRN Reason: constipation Last Admin: 08/06/22 08:19 Dose: 17 gm Documented By: ADRIANA Polyethylene Glycol (Polyethylene Glycol 3350 17 Gm Powd.Pack) 17 gm PO DAILY [facility] Last Admin: 08/23/22 08:01 Dose: 17 gm Documented By: MERLYN Sodium Chloride (0.9 % Sodium Chloride Flush 3 Ml Syringe) 3 ml IVFLUSH QSHIFT [facility] Last Admin: 08/23/22 19:54 Dose: 3 ml Documented By: SU Sodium Hypochlorite (Sodium Hypochlorite 0.25% 473 Ml Solution) 1 appl TOPICAL BID [facility] Last Admin: 08/23/22 20:47 Dose: 1 appl Documented By: SU Tamsulosin HCl (Tamsulosin Hcl 0.4 Mg Capsule) 0.8 mg PO DAILY [facility] Last Admin: 08/23/22 07:59 Dose: 0.8 mg Documented By: MERLYN Vitamin D (Cholecalciferol (Vitamin D3) 25 Mcg Tablet) 50 mcg PO DAILY [facility] Last Admin: 08/23/22 08:02 Dose: 50 mcg Documented By: MERLYN Zinc Acetate/Diphenhydramine (Diphenhydramine Hcl 2 % Cream 28 Gm Tube) 1 appl TOPICAL TID PRN; Protocol PRN Reason: itching Labs 08/03/22 05:08 08/03/22 05:08 Labs: Laboratory Results - last 24 hr 08/23/22 08/23/22 08/23/22 07:08 11:20 16:12 POC Glucose 180 H 298 H 288 H 08/23/22 19:39 POC Glucose 272 H Assessment and Plan (1) Stage 4 decubitus ulcer: Status: Acute Plan 74yo M with DM2, HTN, HLD, chronic venous stasis dermatitis presented with mechanical fall, admitted for hypoxia due to PNA Sacral decubitus ulcer.? Unstageable, necrotic 10cm x10 cm with 4 cm depth frequent turn,air loss? bed ,continue wound care Improving s/p debridements 07/08, 07/17, 1/2 s/p wound vac placement 07/22/22 - removed 07/25 after it became soiled continue wet to dry dressings , being followed by General surgery- d/w surgery - wound vac not helping and would avoid Atrial flutter/fib, rate stable LVEF >70% continue toprol xl and Eliquis Episode of SVT vs atrial tachycardia 07/26 HR improved with IV Lopressor, finish loading dose of amiodarone and started on amiodarone 200 mg by mouth daily on August 07, continue Toprol XL Acute blood loss anemia. Resolved s/p blood loss at site of decub ulcer patient received 2 unit of packed RBC continue ferrous sulfate b.i.d. H/H stable CBC check periodically Traumatic SAH CT brain 06/26 ? New small areas of extra-axial hemorrhage adjacent to the left posterior parietal lobe, bilateral occipital lobes and in the occipital horns of both lateral ventricles, repeat CT 06/28 unchanged seen by neuro - AC was held for two weeks no headache, no dizziness No other complications Acute hypoxic respiratory failure due to PNA. Resolved finished 10d of ABX back on room air Urinary retention failed voiding trial x2 continue tamsulosin and finasteride seen by urology, continue roberts upon discharge - outpatient urology follow up Hyponatremia resolved s/p urea cortisol, TSH wnl Mechanical fall difficulty ambulating; awaiting SNF placement, PT has been working with him I do not think he will walk again generalized weakness 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 but not clinically NPH per Neurology incidental 1.3cm pancreatic lesions may reflect adjacent pancreatic cysts outpt MRI/MRCP DM2? with hyperglycemia continue Lantus, SSI adjusted . HTN Stable blood pressures, continue metoprolol losartan and hydralazine discontinued due to soft blood pressures HLD statin VTE ppx: SCDs,? eliquis Full code ongoin? 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 Time Spent With Patient Time: Total time managing care of this patient today ____ minutes. Quality Stroke Does the patient have a stroke diagnosis?: No VTE Prior VTE?: No VTE Risk Level:: Medical - moderate - high VTE Device Contraindication: Treatment Not Indicated VTE Drug Contraindication: N/A - Med Ordered
[2022-08-24 07:30] LABS: Glucose, Whole Blood 104 mg/dL (60-115)
[2022-08-24] MEDS: Cholecalciferol (Vitamin D3) 25 MCG TABLET 50 MCG PO (07:46)
[2022-08-24] MEDS: Finasteride 5 MG TABLET PO (07:46)
[2022-08-24] MEDS: polyethylene glycoL 3350 17 GM POWD.PACK PO (07:46)
[2022-08-24] MEDS: Ferrous Sulfate 324 MG TABLET.DR PO ×2 (07:46→16:20)
[2022-08-24] MEDS: Metoprolol Succinate ER 100 MG TAB.ER.24H PO (07:46)
[2022-08-24] MEDS: Apixaban 5 MG TABLET PO ×2 (07:46→21:05)
[2022-08-24] MEDS: Tamsulosin HCL 0.4 MG CAPSULE 0.8 MG PO (07:46)
[2022-08-24] MEDS: Amiodarone HCL 200 MG TABLET PO (07:46)
[2022-08-24] MEDS: Lidocaine 4 % Patch ADH..PATCH 1 PATCH TRANSDERMA (07:47)
[2022-08-24] MEDS: Insulin Glargine,Hum.rec.anlog 100 UNIT/ML 10 ML VIAL 20 UNIT SUBCUT (07:47)
[2022-08-24] MEDS: Docusate Sodium 100 MG CAPSULE PO ×2 (07:47→21:05)
[2022-08-24] MEDS: 0.9 % Sodium Chloride Flush 3 ML SYRINGE IVFLUSH ×2 (07:48→16:26)
[2022-08-24] MEDS: oxyCODONE HCl Immed Release 5 MG TABLET PO ×2 (09:42→16:20)
[2022-08-24] MEDS: Insulin Lispro 100 UNIT/ML 3 ML VIAL SUBCUT ×3 (11:56→21:05)
[2022-08-24 12:28] LABS: Glucose, Whole Blood 299 mg/dL (60-115)
[2022-08-24] MEDS: Acetaminophen 325 MG TABLET 650 MG PO ×2 (13:34→19:41)
[2022-08-24 16:00] VITALS: BP 115/58; PULSE 80; RESP 18; TEMP 36.1; O2SAT 98
[2022-08-24 16:25] LABS: Glucose, Whole Blood 219 mg/dL (60-115)
[2022-08-24 19:42] VITALS: BP 121/57; PULSE 66; RESP 18; TEMP 36.3; O2SAT 97
[2022-08-24 20:39] LABS: Glucose, Whole Blood 186 mg/dL (60-115)
[2022-08-24] MEDS: Insulin Glargine,Hum.rec.anlog 100 UNIT/ML 10 ML VIAL SUBCUT (21:06)
[2022-08-25] MEDS: 0.9 % Sodium Chloride Flush 3 ML SYRINGE IVFLUSH ×4 (01:30→19:20)
[2022-08-25] MEDS: Acetaminophen 325 MG TABLET 650 MG PO (03:44)
[2022-08-25] MEDS: oxyCODONE HCl Immed Release 5 MG TABLET PO ×3 (03:44→19:18)
[2022-08-25 03:45] VITALS: BP 128/58; PULSE 76; RESP 18; TEMP 36.8; O2SAT 98
[2022-08-25 07:17] VITALS: BP 118/56; PULSE 77; RESP 18; TEMP 36.5; O2SAT 96
[2022-08-25 07:22] LABS: Glucose, Whole Blood 129 mg/dL (60-115)
[2022-08-25] MEDS: polyethylene glycoL 3350 17 GM POWD.PACK PO (08:27)
[2022-08-25] MEDS: Lidocaine 4 % Patch ADH..PATCH 1 PATCH TRANSDERMA (08:28)
[2022-08-25] MEDS: Insulin Glargine,Hum.rec.anlog 100 UNIT/ML 10 ML VIAL 20 UNIT SUBCUT (08:28)
[2022-08-25] MEDS: Metoprolol Succinate ER 100 MG TAB.ER.24H PO (08:29)
[2022-08-25] MEDS: Docusate Sodium 100 MG CAPSULE PO ×2 (08:29→20:33)
[2022-08-25] MEDS: Cholecalciferol (Vitamin D3) 25 MCG TABLET 50 MCG PO (08:29)
[2022-08-25] MEDS: Amiodarone HCL 200 MG TABLET PO (08:29)
[2022-08-25] MEDS: Ferrous Sulfate 324 MG TABLET.DR PO ×2 (08:29→16:39)
[2022-08-25] MEDS: Apixaban 5 MG TABLET PO ×2 (08:31→20:33)
[2022-08-25] MEDS: Finasteride 5 MG TABLET PO (08:33)
[2022-08-25 08:42] LABS: Hematocrit 32.2 % (42.0-52.0); Hemoglobin 9.8 g/dl (14.0-18.0); Mean Corpuscular HGB Conc 30.4 g/dl (31.0-36.0); Mean Corpuscular Hemoglobin 25.4 pg (27.0-33.0); Mean Corpuscular Volume 83.4 fL (80.0-98.0); Mean Platelet Volume 8.1 fL (9.4-12.4); Platelet Count 310 X10*3/uL (160-400); Red Blood Count 3.86 X10*6/uL (4.60-5.80); Red Cell Distribution Width 15.6 % (11.0-16.0); White Blood Count 6.4 X10*3/uL (4.8-10.8)
--- NOTE | 2022-08-25 08:43 | HO.PM.IMPN ---
Subjective Subjective Date of Service: 08/25/22 Interval History: awaiting placement, no new issues Physical Exam Vital Signs: Vital Signs: Last Vital Signs Temp 97.7 F 08/25/22 07:17 Pulse 77 08/25/22 07:17 Resp 18 08/25/22 07:17 BP 118/56 L 08/25/22 07:17 Pulse Ox 96 08/25/22 07:17 O2 Del Method 08/25/22 07:17 O2 Flow Rate 4 08/05/22 13:22 BMI result Body Mass Index 26.6 Const: Other: General: AO X 1, no acute distress Resp: CTA bilateral CVS: S1,S2,RRR GI: +BS, NT, no distention Skin: decub ulcer stable Neuro: motor grossly intact Psych: appropriate affect Objective Data Active Medications Acetaminophen (Acetaminophen 325 Mg Tablet) 650 mg PO Q6H PRN PRN Reason: Pain, Mild (Pain Scale 1-3) Last Admin: 08/25/22 03:44 Dose: 650 mg Documented By: ADRIANA Amiodarone HCl (Amiodarone Hcl 200 Mg Tablet) 200 mg PO DAILY [facility] Last Admin: 08/25/22 08:29 Dose: 200 mg Documented By: NADEGE Apixaban (Apixaban 5 Mg Tablet) 5 mg PO BID [facility] Last Admin: 08/25/22 08:31 Dose: 5 mg Documented By: NADEGE Dextrose (Dextrose 50 % 25 Gm/50 Ml Syringe) 25 gm IVPUSH Q15M PRN; Protocol PRN Reason: per Hypoglycemia Standing Ord. Docusate Sodium (Docusate Sodium 100 Mg Capsule) 100 mg PO BID [facility] Last Admin: 08/25/22 08:29 Dose: 100 mg Documented By: NADEGE Ferrous Sulfate (Ferrous Sulfate 324 Mg Tablet.) 324 mg PO BIDWM [facility] Last Admin: 08/25/22 08:29 Dose: 324 mg Documented By: NADEGE Finasteride (Finasteride 5 Mg Tablet) 5 mg PO DAILY [facility] Last Admin: 08/25/22 08:33 Dose: 5 mg Documented By: NADEGE Glucose (Glucose Gel 15 Gm Gel..Gram.) 15 gm PO Q15M PRN; Protocol PRN Reason: per Hypoglycemia Standing Ord. Insulin Glargine (Insulin Glargine,Hum.Rec.Anlog 100 Unit/Ml 10 Ml Vial) 20 unit SUBCUT DAILY@0730 [facility] Last Admin: 08/25/22 08:28 Dose: 20 unit Documented By: NADEGE Insulin Glargine (Insulin Glargine,Hum.Rec.Anlog 100 Unit/Ml 10 Ml Vial) 5 unit SUBCUT BEDTIME [facility] Last Admin: 08/24/22 21:06 Dose: 5 unit Documented By: NADEGE Insulin Human Lispro (Insulin Lispro 100 Unit/Ml 3 Ml Vial) 0 unit SUBCUT QIDACHS [facility]; Protocol Last Admin: 08/25/22 08:42 Dose: Not Given Documented By: NADEGE Non-Admin Reason: No Insulin Coverage Lidocaine (Lidocaine 4 % Patch Adh..Patch) 1 patch TRANSDERMA DAILY [facility]; Protocol Last Admin: 08/25/22 08:28 Dose: 1 patch Documented By: NADEGE Metoprolol Succinate (Metoprolol Succinate Er 100 Mg Tab.Er.24h) 100 mg PO DAILY [facility] Last Admin: 08/25/22 08:29 Dose: 100 mg Documented By: NADEGE Ondansetron HCl (Ondansetron Hcl 4 Mg/2 Ml Vial) 4 mg IVPUSH Q8H PRN PRN Reason: Nausea and Vomiting Last Admin: 07/07/22 01:05 Dose: 4 mg Documented By: MARIANN Ondansetron HCl (Ondansetron Hcl 4 Mg/2 Ml Vial) 4 mg IVPUSH ONCE PRN PRN Reason: Nausea and Vomiting Ondansetron HCl (Ondansetron Hcl 4 Mg/2 Ml Vial) 4 mg IVPUSH ONCE PRN PRN Reason: Nausea and Vomiting Oxycodone HCl (Oxycodone Hcl Immed Release 5 Mg Tablet) 5 mg PO Q4H PRN PRN Reason: Pain, Severe (Pain Scale 7-10) Last Admin: 08/25/22 03:44 Dose: 5 mg Documented By: ADRIANA Pharmacy Consult (Consult Rx Perform Med Rec) 1 each MISCELLANE ONCE PRN PRN Reason: Consult order Polyethylene Glycol (Polyethylene Glycol 3350 17 Gm Powd.Pack) 17 gm PO DAILY PRN PRN Reason: constipation Last Admin: 08/06/22 08:19 Dose: 17 gm Documented By: ADRIANA Polyethylene Glycol (Polyethylene Glycol 3350 17 Gm Powd.Pack) 17 gm PO DAILY [facility] Last Admin: 08/25/22 08:27 Dose: 17 gm Documented By: NADEGE Sodium Chloride (0.9 % Sodium Chloride Flush 3 Ml Syringe) 3 ml IVFLUSH QSHIFT [facility] Last Admin: 08/25/22 01:30 Dose: 3 ml Documented By: DARIANA Sodium Hypochlorite (Sodium Hypochlorite 0.25% 473 Ml Solution) 1 appl TOPICAL BID [facility] Last Admin: 08/24/22 21:38 Dose: 1 appl Documented By: NADEGE Tamsulosin HCl (Tamsulosin Hcl 0.4 Mg Capsule) 0.8 mg PO DAILY [facility] Last Admin: 08/24/22 07:46 Dose: 0.8 mg Documented By: SATISH Vitamin D (Cholecalciferol (Vitamin D3) 25 Mcg Tablet) 50 mcg PO DAILY [facility] Last Admin: 08/25/22 08:29 Dose: 50 mcg Documented By: NADEGE Zinc Acetate/Diphenhydramine (Diphenhydramine Hcl 2 % Cream 28 Gm Tube) 1 appl TOPICAL TID PRN; Protocol PRN Reason: itching Labs 08/03/22 05:08 08/03/22 05:08 Labs: Laboratory Results - last 24 hr 08/24/22 08/24/22 08/24/22 11:20 16:04 20:35 POC Glucose 299 H 219 H 186 H 08/25/22 07:15 POC Glucose 129 H Assessment and Plan (1) Stage 4 decubitus ulcer: Status: Acute Plan 74yo M with DM2, HTN, HLD, chronic venous stasis dermatitis presented with mechanical fall, admitted for hypoxia due to PNA Sacral decubitus ulcer.? Unstageable, necrotic 10cm x10 cm with 4 cm depth frequent turn,air loss? bed ,continue wound care Improving s/p debridements 07/08, 07/17, 1/2 s/p wound vac placement 07/22/22 - removed 07/25 after it became soiled continue wet to dry dressings , being followed by General surgery- d/w surgery - wound vac not helping and would avoid Atrial flutter/fib, rate stable LVEF >70% continue toprol xl and Eliquis Episode of SVT vs atrial tachycardia 07/26 HR improved with IV Lopressor, finish loading dose of amiodarone and started on amiodarone 200 mg by mouth daily on August 07, continue Toprol XL Acute blood loss anemia. Resolved s/p blood loss at site of decub ulcer patient received 2 unit of packed RBC continue ferrous sulfate b.i.d. H/H stable CBC check periodically Traumatic SAH CT brain 06/26 ? New small areas of extra-axial hemorrhage adjacent to the left posterior parietal lobe, bilateral occipital lobes and in the occipital horns of both lateral ventricles, repeat CT 06/28 unchanged seen by neuro - AC was held for two weeks no headache, no dizziness No other complications Acute hypoxic respiratory failure due to PNA. Resolved finished 10d of ABX back on room air Urinary retention failed voiding trial x2 continue tamsulosin and finasteride seen by urology, continue roberts upon discharge - outpatient urology follow up Hyponatremia resolved s/p urea cortisol, TSH wnl Mechanical fall difficulty ambulating; awaiting SNF placement, PT has been working with him I do not think he will walk again generalized weakness 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 but not clinically NPH per Neurology incidental 1.3cm pancreatic lesions may reflect adjacent pancreatic cysts outpt MRI/MRCP DM2? with hyperglycemia continue Lantus, SSI adjusted . HTN Stable blood pressures, continue metoprolol losartan and hydralazine discontinued due to soft blood pressures HLD statin VTE ppx: SCDs,? eliquis Full code ongoin? 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 Time Spent With Patient Time: Total time managing care of this patient today ____ minutes. Quality Stroke Does the patient have a stroke diagnosis?: No VTE Prior VTE?: No VTE Risk Level:: Medical - moderate - high VTE Device Contraindication: Treatment Not Indicated VTE Drug Contraindication: N/A - Med Ordered
[2022-08-25] MEDS: Tamsulosin HCL 0.4 MG CAPSULE 0.8 MG PO (08:47)
[2022-08-25 09:12] LABS: Anion Gap 15 (12-20); Blood Urea Nitrogen 8 mg/dL (9-16); Calcium 8.6 mg/dL (8.4-10.2); Carbon Dioxide 28 mmol/L (22-29); Chloride 100 mmol/L (96-108); Estimated Glomerular Filt Rate > 60; Glucose Random 121 mg/dL (60-115); Potassium 4.9 mmol/L (3.3-5.1); Sodium 138 mmol/L (135-145)
[2022-08-25 11:53] LABS: Glucose, Whole Blood 235 mg/dL (60-115)
[2022-08-25] MEDS: Insulin Lispro 100 UNIT/ML 3 ML VIAL SUBCUT ×3 (12:09→20:33)
[2022-08-25 15:49] LABS: Glucose, Whole Blood 266 mg/dL (60-115)
[2022-08-25 15:52] VITALS: BP 132/61; PULSE 78; RESP 19; TEMP 37.1; O2SAT 97
[2022-08-25 20:00] VITALS: BP 111/55; PULSE 77; RESP 17; TEMP 36.9; O2SAT 94
[2022-08-25] MEDS: Insulin Glargine,Hum.rec.anlog 100 UNIT/ML 10 ML VIAL SUBCUT (20:33)
[2022-08-25 20:39] LABS: Glucose, Whole Blood 283 mg/dL (60-115)
[2022-08-26] MEDS: oxyCODONE HCl Immed Release 5 MG TABLET PO ×4 (02:08→16:05)
[2022-08-26] MEDS: Acetaminophen 325 MG TABLET 650 MG PO (02:08)
[2022-08-26 03:45] VITALS: BP 125/56; PULSE 79; RESP 20; TEMP 36.7; O2SAT 95
--- NOTE | 2022-08-26 07:29 | HO.PM.IMPN ---
Subjective Subjective Date of Service: 08/26/22 Interval History: awaiting placement, no new issues, he is asking if he can go home Review of Systems no new issues Physical Exam Vital Signs: Vital Signs: Last Vital Signs Temp 98.0 F 08/26/22 03:45 Pulse 79 08/26/22 03:45 Resp 20 08/26/22 03:45 BP 125/56 L 08/26/22 03:45 Pulse Ox 95 08/26/22 03:45 O2 Del Method 08/26/22 03:45 O2 Flow Rate 4 08/05/22 13:22 BMI result Body Mass Index 26.6 Const: Other: General: AO X 1, no acute distress Resp: CTA bilateral CVS: S1,S2,RRR GI: +BS, NT, no distention Skin: decub ulcer stable Neuro: motor grossly intact Psych: appropriate affect Objective Data Active Medications Acetaminophen (Acetaminophen 325 Mg Tablet) 650 mg PO Q6H PRN PRN Reason: Pain, Mild (Pain Scale 1-3) Last Admin: 08/26/22 02:08 Dose: 650 mg Documented By: ADRIANA Amiodarone HCl (Amiodarone Hcl 200 Mg Tablet) 200 mg PO DAILY [facility] Last Admin: 08/25/22 08:29 Dose: 200 mg Documented By: NADEGE Apixaban (Apixaban 5 Mg Tablet) 5 mg PO BID [facility] Last Admin: 08/25/22 20:33 Dose: 5 mg Documented By: ADRIANA Dextrose (Dextrose 50 % 25 Gm/50 Ml Syringe) 25 gm IVPUSH Q15M PRN; Protocol PRN Reason: per Hypoglycemia Standing Ord. Docusate Sodium (Docusate Sodium 100 Mg Capsule) 100 mg PO BID [facility] Last Admin: 08/25/22 20:33 Dose: 100 mg Documented By: ADRIANA Ferrous Sulfate (Ferrous Sulfate 324 Mg Tablet.) 324 mg PO BIDWM [facility] Last Admin: 08/25/22 16:39 Dose: 324 mg Documented By: NADEGE Finasteride (Finasteride 5 Mg Tablet) 5 mg PO DAILY [facility] Last Admin: 08/25/22 08:33 Dose: 5 mg Documented By: NADEGE Glucose (Glucose Gel 15 Gm Gel..Gram.) 15 gm PO Q15M PRN; Protocol PRN Reason: per Hypoglycemia Standing Ord. Insulin Glargine (Insulin Glargine,Hum.Rec.Anlog 100 Unit/Ml 10 Ml Vial) 20 unit SUBCUT DAILY@0730 [facility] Last Admin: 08/25/22 08:28 Dose: 20 unit Documented By: NADEGE Insulin Glargine (Insulin Glargine,Hum.Rec.Anlog 100 Unit/Ml 10 Ml Vial) 5 unit SUBCUT BEDTIME [facility] Last Admin: 08/25/22 20:33 Dose: 5 unit Documented By: ADRIANA Insulin Human Lispro (Insulin Lispro 100 Unit/Ml 3 Ml Vial) 0 unit SUBCUT QIDACHS [facility]; Protocol Last Admin: 08/25/22 20:33 Dose: 10 unit Documented By: ADRIANA Lidocaine (Lidocaine 4 % Patch Adh..Patch) 1 patch TRANSDERMA DAILY [facility]; Protocol Last Admin: 08/25/22 08:28 Dose: 1 patch Documented By: NADEGE Metoprolol Succinate (Metoprolol Succinate Er 100 Mg Tab.Er.24h) 100 mg PO DAILY [facility] Last Admin: 08/25/22 08:29 Dose: 100 mg Documented By: NADEGE Ondansetron HCl (Ondansetron Hcl 4 Mg/2 Ml Vial) 4 mg IVPUSH Q8H PRN PRN Reason: Nausea and Vomiting Last Admin: 07/07/22 01:05 Dose: 4 mg Documented By: MARIANN Ondansetron HCl (Ondansetron Hcl 4 Mg/2 Ml Vial) 4 mg IVPUSH ONCE PRN PRN Reason: Nausea and Vomiting Ondansetron HCl (Ondansetron Hcl 4 Mg/2 Ml Vial) 4 mg IVPUSH ONCE PRN PRN Reason: Nausea and Vomiting Oxycodone HCl (Oxycodone Hcl Immed Release 5 Mg Tablet) 5 mg PO Q4H PRN PRN Reason: Pain, Severe (Pain Scale 7-10) Last Admin: 08/26/22 06:07 Dose: 5 mg Documented By: BRENDA Pharmacy Consult (Consult Rx Perform Med Rec) 1 each MISCELLANE ONCE PRN PRN Reason: Consult order Polyethylene Glycol (Polyethylene Glycol 3350 17 Gm Powd.Pack) 17 gm PO DAILY PRN PRN Reason: constipation Last Admin: 08/06/22 08:19 Dose: 17 gm Documented By: ADRIANA Polyethylene Glycol (Polyethylene Glycol 3350 17 Gm Powd.Pack) 17 gm PO DAILY [facility] Last Admin: 08/25/22 08:27 Dose: 17 gm Documented By: NADEGE Sodium Chloride (0.9 % Sodium Chloride Flush 3 Ml Syringe) 3 ml IVFLUSH QSHIFT [facility] Last Admin: 08/25/22 19:20 Dose: 3 ml Documented By: ADRIANA Sodium Hypochlorite (Sodium Hypochlorite 0.25% 473 Ml Solution) 1 appl TOPICAL BID [facility] Last Admin: 08/25/22 21:17 Dose: 1 appl Documented By: ADRIANA Tamsulosin HCl (Tamsulosin Hcl 0.4 Mg Capsule) 0.8 mg PO DAILY [facility] Last Admin: 08/25/22 08:47 Dose: 0.8 mg Documented By: NADEGE Vitamin D (Cholecalciferol (Vitamin D3) 25 Mcg Tablet) 50 mcg PO DAILY [facility] Last Admin: 08/25/22 08:29 Dose: 50 mcg Documented By: NADEGE Zinc Acetate/Diphenhydramine (Diphenhydramine Hcl 2 % Cream 28 Gm Tube) 1 appl TOPICAL TID PRN; Protocol PRN Reason: itching Labs 08/25/22 07:37 08/25/22 07:37 Labs: Laboratory Results - last 24 hr 08/25/22 08/25/22 08/25/22 07:37 07:37 11:48 MCV 83.4 MCH 25.4 L MCHC 30.4 L RDW 15.6 Plt Count 310 D MPV 8.1 L Absolute Nucleated RBC 0.000 Nucleated RBC % (auto) 0.0 Anion Gap 15 Estim Creat Clear Calc 113.0 Estimated GFR > 60 POC Glucose 235 H Random Glucose 121 H Calcium 8.6 D 08/25/22 08/25/22 15:33 20:25 MCV MCH MCHC RDW Plt Count MPV Absolute Nucleated RBC Nucleated RBC % (auto) Anion Gap Estim Creat Clear Calc Estimated GFR POC Glucose 266 H 283 H Random Glucose Calcium Assessment and Plan (1) Hyperglycemia: Status: Acute (2) SVT (supraventricular tachycardia): Status: Acute (3) Incomplete bladder emptying: Status: Acute Plan 74yo M with DM2, HTN, HLD, chronic venous stasis dermatitis presented with mechanical fall, admitted for hypoxia due to PNA Sacral decubitus ulcer.? Unstageable, necrotic 10cm x10 cm with 4 cm depth frequent turn,air loss? bed ,continue wound care Improving s/p debridements 07/08, 07/17, 12 s/p wound vac placement 07/22/22 - removed 07/25 after it became soiled continue wet to dry dressings , being followed by General surgery- d/w surgery - wound vac not helping and would avoid Atrial flutter/fib, rate stable LVEF >70% continue toprol xl and Eliquis Episode of SVT vs atrial tachycardia 07/26 HR improved with IV Lopressor, finish loading dose of amiodarone and started on amiodarone 200 mg by mouth daily on August 07, continue Toprol XL Acute blood loss anemia. Resolved s/p blood loss at site of decub ulcer patient received 2 unit of packed RBC continue ferrous sulfate b.i.d. H/H stable CBC check periodically Traumatic SA[facility] CT brain 06/26 ? New small areas of extra-axial hemorrhage adjacent to the left posterior parietal lobe, bilateral occipital lobes and in the occipital horns of both lateral ventricles, repeat CT 06/28 unchanged seen by neuro - AC was held for two weeks no headache, no dizziness No other complications Acute hypoxic respiratory failure due to PNA. Resolved finished 10d of ABX back on room air Urinary retention failed voiding trial x2 continue tamsulosin and finasteride seen by urology, continue roberts upon discharge - outpatient urology follow up Hyponatremia resolved s/p urea cortisol, TSH wnl Mechanical fall difficulty ambulating; awaiting SNF placement, PT has been working with him I do not think he will walk again generalized weakness 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 but not clinically NPH per Neurology incidental 1.3cm pancreatic lesions may reflect adjacent pancreatic cysts outpt MRI/MRCP DM2? with hyperglycemia continue Lantus, SSI adjusted . HTN Stable blood pressures, continue metoprolol losartan and hydralazine discontinued due to soft blood pressures HLD statin VTE ppx: SCDs,? eliquis Full code ongoin? 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 Time Spent With Patient Time: Total time managing care of this patient today ____ minutes. Quality Stroke Does the patient have a stroke diagnosis?: No VTE Prior VTE?: No VTE Risk Level:: Medical - moderate - high VTE Device Contraindication: Treatment Not Indicated VTE Drug Contraindication: N/A - Med Ordered
[2022-08-26 07:32] VITALS: BP 115/58; PULSE 78; RESP 16; TEMP 36.3; O2SAT 98
[2022-08-26 07:45] LABS: Glucose, Whole Blood 171 mg/dL (60-115)
[2022-08-26] MEDS: Insulin Lispro 100 UNIT/ML 3 ML VIAL SUBCUT ×4 (08:17→21:06)
[2022-08-26] MEDS: polyethylene glycoL 3350 17 GM POWD.PACK PO (08:17)
[2022-08-26] MEDS: Insulin Glargine,Hum.rec.anlog 100 UNIT/ML 10 ML VIAL 20 UNIT SUBCUT (08:18)
[2022-08-26] MEDS: Metoprolol Succinate ER 100 MG TAB.ER.24H PO (08:21)
[2022-08-26] MEDS: Apixaban 5 MG TABLET PO ×2 (08:21→21:06)
[2022-08-26] MEDS: Tamsulosin HCL 0.4 MG CAPSULE 0.8 MG PO (08:21)
[2022-08-26] MEDS: Ferrous Sulfate 324 MG TABLET.DR PO ×2 (08:21→16:05)
[2022-08-26] MEDS: Docusate Sodium 100 MG CAPSULE PO ×2 (08:21→21:06)
[2022-08-26] MEDS: Cholecalciferol (Vitamin D3) 25 MCG TABLET 50 MCG PO (08:22)
[2022-08-26] MEDS: Amiodarone HCL 200 MG TABLET PO (08:22)
[2022-08-26] MEDS: Lidocaine 4 % Patch ADH..PATCH 1 PATCH TRANSDERMA (08:22)
[2022-08-26] MEDS: Finasteride 5 MG TABLET PO (08:22)
[2022-08-26] MEDS: 0.9 % Sodium Chloride Flush 3 ML SYRINGE IVFLUSH ×3 (09:12→21:07)
[2022-08-26 11:31] LABS: Glucose, Whole Blood 255 mg/dL (60-115)
[2022-08-26 15:58] VITALS: BP 125/79; PULSE 79; RESP 15; TEMP 36.4; O2SAT 97
[2022-08-26 16:37] LABS: Glucose, Whole Blood 247 mg/dL (60-115)
[2022-08-26 20:00] VITALS: BP 122/57; PULSE 78; RESP 16; TEMP 36.9; O2SAT 96
[2022-08-26 20:30] LABS: Glucose, Whole Blood 262 mg/dL (60-115)
[2022-08-26] MEDS: Insulin Glargine,Hum.rec.anlog 100 UNIT/ML 10 ML VIAL SUBCUT (21:07)
[2022-08-27] MEDS: oxyCODONE HCl Immed Release 5 MG TABLET PO ×3 (03:24→17:01)
[2022-08-27 03:43] VITALS: BP 139/73; PULSE 81; RESP 18; TEMP 36.3; O2SAT 97
[2022-08-27 07:26] VITALS: BP 121/60; PULSE 83; RESP 20; TEMP 36.2; O2SAT 98
[2022-08-27 07:33] LABS: Glucose, Whole Blood 136 mg/dL (60-115)
[2022-08-27] MEDS: Acetaminophen 325 MG TABLET 650 MG PO ×2 (07:46→17:00)
[2022-08-27] MEDS: Docusate Sodium 100 MG CAPSULE PO ×2 (07:46→20:10)
[2022-08-27] MEDS: Finasteride 5 MG TABLET PO (07:46)
[2022-08-27] MEDS: Cholecalciferol (Vitamin D3) 25 MCG TABLET 50 MCG PO (07:46)
[2022-08-27] MEDS: Tamsulosin HCL 0.4 MG CAPSULE 0.8 MG PO (07:46)
[2022-08-27] MEDS: Metoprolol Succinate ER 100 MG TAB.ER.24H PO (07:46)
[2022-08-27] MEDS: Lidocaine 4 % Patch ADH..PATCH 1 PATCH TRANSDERMA (07:46)
[2022-08-27] MEDS: polyethylene glycoL 3350 17 GM POWD.PACK PO (07:46)
[2022-08-27] MEDS: Insulin Glargine,Hum.rec.anlog 100 UNIT/ML 10 ML VIAL 20 UNIT SUBCUT (07:47)
[2022-08-27] MEDS: Ferrous Sulfate 324 MG TABLET.DR PO ×2 (07:47→17:01)
[2022-08-27] MEDS: Apixaban 5 MG TABLET PO ×2 (07:47→20:10)
[2022-08-27] MEDS: Amiodarone HCL 200 MG TABLET PO (07:47)
--- NOTE | 2022-08-27 10:47 | MHC.CM.PN ---
Addendum entered by Frida Jerry 08/27/22 11:58: CM LEFT MESSAGE FOR BROTHER MARYA REGARDING MANAGED CARE PLAN, REQUEST TO CALL THIS CM BACK. CONTACT INFO PROVIDED. Original Note: DP: CM REACHED OUT TO FS TO INQUIRE ABOUT STATUS OF MH APPLICATION. AWAITING RESPONSE.
[2022-08-27 11:25] LABS: Glucose, Whole Blood 344 mg/dL (60-115)
[2022-08-27] MEDS: Insulin Lispro 100 UNIT/ML 3 ML VIAL SUBCUT ×3 (11:35→20:10)
--- NOTE | 2022-08-27 12:17 | P.PNIM_ITS ---
Subjective Subjective Date of Service: 08/27/22 Interval History: awaiting placement, no new issues, Review of Systems no new issues Physical Exam Vital Signs: Vital Signs: Last Vital Signs Temp 97.1 F 08/27/22 07:26 Pulse 83 08/27/22 07:26 Resp 20 08/27/22 07:26 BP 121/60 08/27/22 07:26 Pulse Ox 98 08/27/22 07:26 O2 Del Method 08/27/22 07:26 O2 Flow Rate 4 08/05/22 13:22 BMI result Body Mass Index 26.6 General: AO X 1, no acute distress Resp:? CTA bilateral CVS: S1,S2,RRR GI: +BS, NT, no distention Skin: decub ulcer stable Neuro:? motor grossly intact Psych: appropriate affect Objective Data Active Medications Acetaminophen (Acetaminophen 325 Mg Tablet) 650 mg PO Q6H PRN PRN Reason: Pain, Mild (Pain Scale 1-3) Last Admin: 08/27/22 07:46 Dose: 650 mg Documented By: JANINE Amiodarone HCl (Amiodarone Hcl 200 Mg Tablet) 200 mg PO DAILY COUNTS INCLUDE 234 BEDS AT THE [facility] Last Admin: 08/27/22 07:47 Dose: 200 mg Documented By: JANINE Apixaban (Apixaban 5 Mg Tablet) 5 mg PO BID COUNTS INCLUDE 234 BEDS AT THE [facility] Last Admin: 08/27/22 07:47 Dose: 5 mg Documented By: JANINE Dextrose (Dextrose 50 % 25 Gm/50 Ml Syringe) 25 gm IVPUSH Q15M PRN; Protocol PRN Reason: per Hypoglycemia Standing Ord. Docusate Sodium (Docusate Sodium 100 Mg Capsule) 100 mg PO BID COUNTS INCLUDE 234 BEDS AT THE [facility] Last Admin: 08/27/22 07:46 Dose: 100 mg Documented By: JANINE Ferrous Sulfate (Ferrous Sulfate 324 Mg Tablet.) 324 mg PO BIDWM COUNTS INCLUDE 234 BEDS AT THE [facility] Last Admin: 08/27/22 07:47 Dose: 324 mg Documented By: JANINE Finasteride (Finasteride 5 Mg Tablet) 5 mg PO DAILY COUNTS INCLUDE 234 BEDS AT THE [facility] Last Admin: 08/27/22 07:46 Dose: 5 mg Documented By: JANINE Glucose (Glucose Gel 15 Gm Gel..Gram.) 15 gm PO Q15M PRN; Protocol PRN Reason: per Hypoglycemia Standing Ord. Insulin Glargine (Insulin Glargine,Hum.Rec.Anlog 100 Unit/Ml 10 Ml Vial) 20 unit SUBCUT DAILY@0730 COUNTS INCLUDE 234 BEDS AT THE [facility] Last Admin: 08/27/22 07:47 Dose: 20 unit Documented By: JANINE Insulin Glargine (Insulin Glargine,Hum.Rec.Anlog 100 Unit/Ml 10 Ml Vial) 5 unit SUBCUT BEDTIME COUNTS INCLUDE 234 BEDS AT THE [facility] Last Admin: 08/26/22 21:07 Dose: 5 unit Documented By: MARIANN Insulin Human Lispro (Insulin Lispro 100 Unit/Ml 3 Ml Vial) 0 unit SUBCUT QIDACHS COUNTS INCLUDE 234 BEDS AT THE [facility]; Protocol Last Admin: 08/27/22 11:35 Dose: 12 unit Documented By: JANINE Lidocaine (Lidocaine 4 % Patch Adh..Patch) 1 patch TRANSDERMA DAILY COUNTS INCLUDE 234 BEDS AT THE [facility]; Protocol Last Admin: 08/27/22 07:46 Dose: 1 patch Documented By: JANINE Metoprolol Succinate (Metoprolol Succinate Er 100 Mg Tab.Er.24h) 100 mg PO DAILY COUNTS INCLUDE 234 BEDS AT THE [facility] Last Admin: 08/27/22 07:46 Dose: 100 mg Documented By: JANINE Ondansetron HCl (Ondansetron Hcl 4 Mg/2 Ml Vial) 4 mg IVPUSH Q8H PRN PRN Reason: Nausea and Vomiting Last Admin: 07/07/22 01:05 Dose: 4 mg Documented By: MARIANN Ondansetron HCl (Ondansetron Hcl 4 Mg/2 Ml Vial) 4 mg IVPUSH ONCE PRN PRN Reason: Nausea and Vomiting Ondansetron HCl (Ondansetron Hcl 4 Mg/2 Ml Vial) 4 mg IVPUSH ONCE PRN PRN Reason: Nausea and Vomiting Pharmacy Consult (Consult Rx Perform Med Rec) 1 each MISCELLANE ONCE PRN PRN Reason: Consult order Polyethylene Glycol (Polyethylene Glycol 3350 17 Gm Powd.Pack) 17 gm PO DAILY PRN PRN Reason: constipation Last Admin: 08/06/22 08:19 Dose: 17 gm Documented By: ADRIANA Polyethylene Glycol (Polyethylene Glycol 3350 17 Gm Powd.Pack) 17 gm PO DAILY COUNTS INCLUDE 234 BEDS AT THE [facility] Last Admin: 08/27/22 07:46 Dose: 17 gm Documented By: JANINE Sodium Chloride (0.9 % Sodium Chloride Flush 3 Ml Syringe) 3 ml IVFLUSH QSHIFT COUNTS INCLUDE 234 BEDS AT THE [facility] Last Admin: 08/27/22 07:47 Dose: Not Given Documented By: JANINE Non-Admin Reason: No Access Sodium Hypochlorite (Sodium Hypochlorite 0.25% 473 Ml Solution) 1 appl TOPICAL BID COUNTS INCLUDE 234 BEDS AT THE [facility] Last Admin: 08/26/22 21:18 Dose: 1 appl Documented By: CASTILCinthya Tamsulosin HCl (Tamsulosin Hcl 0.4 Mg Capsule) 0.8 mg PO DAILY COUNTS INCLUDE 234 BEDS AT THE [facility] Last Admin: 08/27/22 07:46 Dose: 0.8 mg Documented By: JANINE Vitamin D (Cholecalciferol (Vitamin D3) 25 Mcg Tablet) 50 mcg PO DAILY COUNTS INCLUDE 234 BEDS AT THE [facility] Last Admin: 08/27/22 07:46 Dose: 50 mcg Documented By: JANINE Zinc Acetate/Diphenhydramine (Diphenhydramine Hcl 2 % Cream 28 Gm Tube) 1 appl TOPICAL TID PRN; Protocol PRN Reason: itching Labs 08/25/22 07:37 08/25/22 07:37 Labs: Laboratory Results - last 24 hr 08/26/22 08/26/22 08/27/22 16:29 20:25 07:29 POC Glucose 247 H 262 H 136 H 08/27/22 11:17 POC Glucose 344 H Assessment and Plan (1) Hyperglycemia: Status: Acute (2) SVT (supraventricular tachycardia): Status: Acute (3) Incomplete bladder emptying: Status: Acute Plan 74yo M with DM2, HTN, HLD, chronic venous stasis dermatitis presented with mechanical fall, admitted for hypoxia due to PNA Sacral decubitus ulcer.? Unstageable, necrotic 10cm x10 cm with 4 cm depth frequent turn,air loss? bed ,continue wound care Improving s/p debridements 07/08, 07/17, 08/05 s/p wound vac placement 07/22/22 - removed 07/25 after it became soiled continue wet to dry dressings , being followed by General surgery- d/w surgery - wound vac not helping and would avoid Atrial flutter/fib, rate stable LVEF >70% continue toprol xl and Eliquis Episode of SVT vs atrial tachycardia 07/26 HR improved with IV Lopressor, finish loading dose of amiodarone and started on amiodarone 200 mg by mouth daily on August 07, continue Toprol XL Acute blood loss anemia. Resolved s/p blood loss at site of decub ulcer patient received 2 unit of packed RBC continue ferrous sulfate b.i.d. H/H stable CBC check periodically Traumatic SAH CT brain 06/26 ? New small areas of extra-axial hemorrhage adjacent to the left posterior parietal lobe, bilateral occipital lobes and in the occipital horns of both lateral ventricles, repeat CT 06/28 unchanged seen by neuro - AC was held for two weeks no headache, no dizziness No other complications Acute hypoxic respiratory failure due to PNA. Resolved finished 10d of ABX back on room air Urinary retention failed voiding trial x2 continue tamsulosin and finasteride seen by urology, continue roberts upon discharge - outpatient urology follow up Hyponatremia resolved s/p urea cortisol, TSH wnl Mechanical fall difficulty ambulating; awaiting SNF placement, PT has been working with him I do not think he will walk again generalized weakness 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 but not clinically NPH per Neurology incidental 1.3cm pancreatic lesions may reflect adjacent pancreatic cysts outpt MRI/MRCP DM2? with hyperglycemia continue Lantus, SSI adjusted . HTN Stable blood pressures, continue metoprolol losartan and hydralazine discontinued due to soft blood pressures HLD statin VTE ppx: SCDs,? eliquis Full code ongoin? 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 Time Spent With Patient Time: Total time managing care of this patient today ____ minutes. Quality Stroke Does the patient have a stroke diagnosis?: No VTE Prior VTE?: No VTE Risk Level:: Medical - moderate - high VTE Device Contraindication: Treatment Not Indicated VTE Drug Contraindication: N/A - Med Ordered
[2022-08-27 14:50] VITALS: BP 129/60; PULSE 78; RESP 18; TEMP 37; O2SAT 97
[2022-08-27 16:30] LABS: Glucose, Whole Blood 287 mg/dL (60-115)
[2022-08-27 19:01] VITALS: BP 123/57; PULSE 77; RESP 18; TEMP 36.9; O2SAT 95
[2022-08-27 19:25] LABS: Glucose, Whole Blood 300 mg/dL (60-115)
[2022-08-27] MEDS: Insulin Glargine,Hum.rec.anlog 100 UNIT/ML 10 ML VIAL SUBCUT (20:13)
[2022-08-28 00:09] VITALS: BP 134/65; PULSE 85
[2022-08-28] MEDS: 0.9 % Sodium Chloride Flush 3 ML SYRINGE IVFLUSH (00:16)
[2022-08-28] MEDS: oxyCODONE HCl Immed Release 5 MG TABLET PO ×3 (00:16→14:42)
[2022-08-28 03:23] VITALS: BP 121/56; PULSE 88; RESP 14; TEMP 36.6; O2SAT 96
[2022-08-28 07:50] LABS: Glucose, Whole Blood 139 mg/dL (60-115)
[2022-08-28 08:00] VITALS: BP 135/60; PULSE 85; RESP 15; TEMP 37; O2SAT 96
[2022-08-28] MEDS: Finasteride 5 MG TABLET PO (08:15)
[2022-08-28] MEDS: Metoprolol Succinate ER 100 MG TAB.ER.24H PO (08:15)
[2022-08-28] MEDS: Tamsulosin HCL 0.4 MG CAPSULE 0.8 MG PO (08:15)
[2022-08-28] MEDS: Ferrous Sulfate 324 MG TABLET.DR PO ×2 (08:15→16:56)
[2022-08-28] MEDS: Docusate Sodium 100 MG CAPSULE PO ×2 (08:15→21:06)
[2022-08-28] MEDS: Apixaban 5 MG TABLET PO ×2 (08:15→21:06)
[2022-08-28] MEDS: Cholecalciferol (Vitamin D3) 25 MCG TABLET 50 MCG PO (08:16)
[2022-08-28] MEDS: Amiodarone HCL 200 MG TABLET PO (08:16)
[2022-08-28] MEDS: Lidocaine 4 % Patch ADH..PATCH 1 PATCH TRANSDERMA (08:17)
[2022-08-28] MEDS: polyethylene glycoL 3350 17 GM POWD.PACK PO (08:17)
[2022-08-28] MEDS: Insulin Glargine,Hum.rec.anlog 100 UNIT/ML 10 ML VIAL 20 UNIT SUBCUT (08:17)
[2022-08-28 11:28] LABS: Glucose, Whole Blood 315 mg/dL (60-115)
[2022-08-28] MEDS: Insulin Lispro 100 UNIT/ML 3 ML VIAL SUBCUT ×3 (12:07→21:06)
--- NOTE | 2022-08-28 14:37 | HO.PM.IMPN ---
Subjective Subjective Date of Service: 08/28/22 Interval History: awaiting placement, no new issues. Review of Systems no new overnight events , no fever no new complaints Physical Exam Vital Signs: Vital Signs: Last Vital Signs Temp 98.6 F 08/28/22 08:00 Pulse 85 08/28/22 08:00 Resp 15 08/28/22 08:00 BP 135/60 08/28/22 08:00 Pulse Ox 96 08/28/22 08:00 O2 Del Method 08/28/22 08:00 O2 Flow Rate 4 08/05/22 13:22 BMI result Body Mass Index 26.6 General: AO X 1, no acute distress Resp:? CTA bilateral CVS: S1,S2,RRR GI: +BS, NT, no distention Skin: decub ulcer stable Neuro:? motor grossly intact Psych: appropriate affect Objective Data Active Medications Acetaminophen (Acetaminophen 325 Mg Tablet) 650 mg PO Q6H PRN PRN Reason: Pain, Mild (Pain Scale 1-3) Last Admin: 08/27/22 17:00 Dose: 650 mg Documented By: JANINE Amiodarone HCl (Amiodarone Hcl 200 Mg Tablet) 200 mg PO DAILY [facility] Last Admin: 08/28/22 08:16 Dose: 200 mg Documented By: NADEGE Apixaban (Apixaban 5 Mg Tablet) 5 mg PO BID [facility] Last Admin: 08/28/22 08:15 Dose: 5 mg Documented By: NADEGE Dextrose (Dextrose 50 % 25 Gm/50 Ml Syringe) 25 gm IVPUSH Q15M PRN; Protocol PRN Reason: per Hypoglycemia Standing Ord. Docusate Sodium (Docusate Sodium 100 Mg Capsule) 100 mg PO BID [facility] Last Admin: 08/28/22 08:15 Dose: 100 mg Documented By: NADEGE Ferrous Sulfate (Ferrous Sulfate 324 Mg Tablet.Dr) 324 mg PO BIDWM [facility] Last Admin: 08/28/22 08:15 Dose: 324 mg Documented By: NADEGE Finasteride (Finasteride 5 Mg Tablet) 5 mg PO DAILY [facility] Last Admin: 08/28/22 08:15 Dose: 5 mg Documented By: NADEGE Glucose (Glucose Gel 15 Gm Gel..Gram.) 15 gm PO Q15M PRN; Protocol PRN Reason: per Hypoglycemia Standing Ord. Insulin Glargine (Insulin Glargine,Hum.Rec.Anlog 100 Unit/Ml 10 Ml Vial) 20 unit SUBCUT DAILY@0730 [facility] Last Admin: 08/28/22 08:17 Dose: 20 unit Documented By: NADEGE Insulin Glargine (Insulin Glargine,Hum.Rec.Anlog 100 Unit/Ml 10 Ml Vial) 5 unit SUBCUT BEDTIME [facility] Last Admin: 08/27/22 20:13 Dose: 5 unit Documented By: JUS Insulin Human Lispro (Insulin Lispro 100 Unit/Ml 3 Ml Vial) 0 unit SUBCUT QIDACHS [facility]; Protocol Last Admin: 08/28/22 12:07 Dose: 12 unit Documented By: NADEGE Lidocaine (Lidocaine 4 % Patch Adh..Patch) 1 patch TRANSDERMA DAILY [facility]; Protocol Last Admin: 08/28/22 08:17 Dose: 1 patch Documented By: NADEGE Metoprolol Succinate (Metoprolol Succinate Er 100 Mg Tab.Er.24h) 100 mg PO DAILY [facility] Last Admin: 08/28/22 08:15 Dose: 100 mg Documented By: NADEGE Ondansetron HCl (Ondansetron Hcl 4 Mg/2 Ml Vial) 4 mg IVPUSH Q8H PRN PRN Reason: Nausea and Vomiting Last Admin: 07/07/22 01:05 Dose: 4 mg Documented By: MARIANN Ondansetron HCl (Ondansetron Hcl 4 Mg/2 Ml Vial) 4 mg IVPUSH ONCE PRN PRN Reason: Nausea and Vomiting Ondansetron HCl (Ondansetron Hcl 4 Mg/2 Ml Vial) 4 mg IVPUSH ONCE PRN PRN Reason: Nausea and Vomiting Oxycodone HCl (Oxycodone Hcl Immed Release 5 Mg Tablet) 5 mg PO Q6H PRN PRN Reason: Pain, Mild (Pain Scale 1-3) Last Admin: 08/28/22 09:07 Dose: 5 mg Documented By: NADEGE Pharmacy Consult (Consult Rx Perform Med Rec) 1 each MISCELLANE ONCE PRN PRN Reason: Consult order Polyethylene Glycol (Polyethylene Glycol 3350 17 Gm Powd.Pack) 17 gm PO DAILY PRN PRN Reason: constipation Last Admin: 08/06/22 08:19 Dose: 17 gm Documented By: ADRIANA Polyethylene Glycol (Polyethylene Glycol 3350 17 Gm Powd.Pack) 17 gm PO DAILY [facility] Last Admin: 08/28/22 08:17 Dose: 17 gm Documented By: NADEGE Sodium Chloride (0.9 % Sodium Chloride Flush 3 Ml Syringe) 3 ml IVFLUSH QSHIFT [facility] Last Admin: 08/28/22 08:19 Dose: Not Given Documented By: NADEGE Non-Admin Reason: No Access Sodium Hypochlorite (Sodium Hypochlorite 0.25% 473 Ml Solution) 1 appl TOPICAL BID [facility] Last Admin: 08/28/22 11:07 Dose: 1 appl Documented By: NADEGE Tamsulosin HCl (Tamsulosin Hcl 0.4 Mg Capsule) 0.8 mg PO DAILY [facility] Last Admin: 08/28/22 08:15 Dose: 0.8 mg Documented By: NADEGE Vitamin D (Cholecalciferol (Vitamin D3) 25 Mcg Tablet) 50 mcg PO DAILY [facility] Last Admin: 08/28/22 08:16 Dose: 50 mcg Documented By: NADEGE Zinc Acetate/Diphenhydramine (Diphenhydramine Hcl 2 % Cream 28 Gm Tube) 1 appl TOPICAL TID PRN; Protocol PRN Reason: itching Labs 08/25/22 07:37 08/25/22 07:37 Labs: Laboratory Results - last 24 hr 08/27/22 08/27/22 08/28/22 16:15 19:00 07:29 POC Glucose 287 H 300 H 139 H 08/28/22 11:24 POC Glucose 315 H Assessment and Plan (1) Incomplete bladder emptying: Status: Acute (2) Stage 4 decubitus ulcer: Status: Acute Plan 74yo M with DM2, HTN, HLD, chronic venous stasis dermatitis presented with mechanical fall, admitted for hypoxia due to PNA Sacral decubitus ulcer.? Unstageable, necrotic 10cm x10 cm with 4 cm depth frequent turn,air loss? bed ,continue wound care Improving s/p debridements 07/08, 07/17, 1/2 s/p wound vac placement 07/22/22 - removed 07/25 after it became soiled continue wet to dry dressings , being followed by General surgery- d/w surgery - wound vac not helping and would avoid Atrial flutter/fib, rate stable LVEF >70% continue toprol xl and Eliquis Episode of SVT vs atrial tachycardia 07/26 HR improved with IV Lopressor, finish loading dose of amiodarone and started on amiodarone 200 mg by mouth daily on August 07, continue Toprol XL Acute blood loss anemia. Resolved s/p blood loss at site of decub ulcer patient received 2 unit of packed RBC continue ferrous sulfate b.i.d. H/H stable CBC check periodically Traumatic SAH CT brain 06/26 ? New small areas of extra-axial hemorrhage adjacent to the left posterior parietal lobe, bilateral occipital lobes and in the occipital horns of both lateral ventricles, repeat CT 06/28 unchanged seen by neuro - AC was held for two weeks no headache, no dizziness No other complications Acute hypoxic respiratory failure due to PNA. Resolved finished 10d of ABX back on room air Urinary retention failed voiding trial x2 continue tamsulosin and finasteride seen by urology, continue roberts upon discharge - outpatient urology follow up Hyponatremia resolved s/p urea cortisol, TSH wnl Mechanical fall difficulty ambulating; awaiting SNF placement, PT has been working with him I do not think he will walk again generalized weakness 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 but not clinically NPH per Neurology incidental 1.3cm pancreatic lesions may reflect adjacent pancreatic cysts outpt MRI/MRCP DM2? : fs acceptable continue Lantus, SSI adjusted . HTN Stable blood pressures, continue metoprolol losartan and hydralazine discontinued due to soft blood pressures HLD statin VTE ppx: SCDs,? eliquis Full code ongoin? 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 Time Spent With Patient Time: Total time managing care of this patient today ____ minutes. Quality Stroke Does the patient have a stroke diagnosis?: No VTE Prior VTE?: No VTE Risk Level:: Medical - moderate - high VTE Device Contraindication: Treatment Not Indicated VTE Drug Contraindication: N/A - Med Ordered
[2022-08-28] MEDS: Acetaminophen 325 MG TABLET 650 MG PO (14:42)
[2022-08-28 15:41] VITALS: BP 129/57; PULSE 87; RESP 18; TEMP 36.9; O2SAT 94
[2022-08-28 16:48] LABS: Glucose, Whole Blood 352 mg/dL (60-115)
[2022-08-28 19:33] VITALS: BP 116/56; PULSE 84; RESP 16; TEMP 36.8; O2SAT 96
[2022-08-28 20:08] VITALS: BP 136/61; PULSE 85; RESP 18; TEMP 36.5; O2SAT 95
[2022-08-28 20:13] LABS: Glucose, Whole Blood 411 mg/dL (60-115)
[2022-08-28] MEDS: Insulin Glargine,Hum.rec.anlog 100 UNIT/ML 10 ML VIAL SUBCUT (21:07)
[2022-08-29] MEDS: Acetaminophen 325 MG TABLET 650 MG PO (00:19)
[2022-08-29] MEDS: oxyCODONE HCl Immed Release 5 MG TABLET PO ×2 (00:20→16:48)
[2022-08-29 03:48] VITALS: BP 114/65; PULSE 80; RESP 17; TEMP 36.5; O2SAT 97
--- NOTE | 2022-08-29 06:38 | PC.NURSE ---
During bedtime POC, pt's POC was 411. Pt stated he had milshake during mealtime. MD Gonzalez was notified. No new orders given, pt recieved NICOLE 20 units of Lantus and 14 units of Humalog sliding scale. Will continue to monitor Pt's POC.
[2022-08-29 07:17] LABS: Glucose, Whole Blood 160 mg/dL (60-115)
[2022-08-29 08:00] VITALS: BP 134/60; PULSE 86; RESP 18; TEMP 36.7; O2SAT 95
[2022-08-29] MEDS: Finasteride 5 MG TABLET PO (08:05)
[2022-08-29] MEDS: Cholecalciferol (Vitamin D3) 25 MCG TABLET 50 MCG PO (08:06)
[2022-08-29] MEDS: Apixaban 5 MG TABLET PO ×2 (08:06→20:20)
[2022-08-29] MEDS: Metoprolol Succinate ER 100 MG TAB.ER.24H PO (08:06)
[2022-08-29] MEDS: Docusate Sodium 100 MG CAPSULE PO (08:06)
[2022-08-29] MEDS: Ferrous Sulfate 324 MG TABLET.DR PO ×2 (08:06→16:48)
[2022-08-29] MEDS: Insulin Lispro 100 UNIT/ML 3 ML VIAL SUBCUT ×4 (08:07→20:20)
[2022-08-29] MEDS: Amiodarone HCL 200 MG TABLET PO (08:07)
[2022-08-29] MEDS: Insulin Glargine,Hum.rec.anlog 100 UNIT/ML 10 ML VIAL 20 UNIT SUBCUT (08:07)
[2022-08-29] MEDS: Lidocaine 4 % Patch ADH..PATCH 1 PATCH TRANSDERMA (08:07)
[2022-08-29] MEDS: Tamsulosin HCL 0.4 MG CAPSULE 0.8 MG PO (08:11)
--- NOTE | 2022-08-29 08:21 | HO.PM.IMPN ---
Subjective Subjective Date of Service: 08/29/22 Interval History: awaiting placement, no new issues. Review of Systems no new overnight events , no fever no new complaints Physical Exam Vital Signs: Vital Signs: Last Vital Signs Temp 97.7 F 08/29/22 03:48 Pulse 80 08/29/22 03:48 Resp 17 08/29/22 03:48 BP 114/65 08/29/22 03:48 Pulse Ox 97 08/29/22 03:48 O2 Del Method 08/29/22 03:48 O2 Flow Rate 4 08/05/22 13:22 BMI result Body Mass Index 26.6 General: AO X 1, no acute distress Resp:? CTA bilateral CVS: S1,S2,RRR GI: +BS, NT, no distention Skin: decub ulcer stable Neuro:? motor grossly intact Psych: appropriate affect Objective Data Active Medications Acetaminophen (Acetaminophen 325 Mg Tablet) 650 mg PO Q6H PRN PRN Reason: Pain, Mild (Pain Scale 1-3) Last Admin: 08/29/22 00:19 Dose: 650 mg Documented By: AUGUSTINA Amiodarone HCl (Amiodarone Hcl 200 Mg Tablet) 200 mg PO DAILY [facility] Last Admin: 08/29/22 08:07 Dose: 200 mg Documented By: TONNY Apixaban (Apixaban 5 Mg Tablet) 5 mg PO BID [facility] Last Admin: 08/29/22 08:06 Dose: 5 mg Documented By: TONNY Dextrose (Dextrose 50 % 25 Gm/50 Ml Syringe) 25 gm IVPUSH Q15M PRN; Protocol PRN Reason: per Hypoglycemia Standing Ord. Docusate Sodium (Docusate Sodium 100 Mg Capsule) 100 mg PO BID [facility] Last Admin: 08/29/22 08:06 Dose: 100 mg Documented By: TONNY Ferrous Sulfate (Ferrous Sulfate 324 Mg Tablet.Dr) 324 mg PO BIDWM [facility] Last Admin: 08/29/22 08:06 Dose: 324 mg Documented By: TONNY Finasteride (Finasteride 5 Mg Tablet) 5 mg PO DAILY [facility] Last Admin: 08/29/22 08:05 Dose: 5 mg Documented By: TONNY Glucose (Glucose Gel 15 Gm Gel..Gram.) 15 gm PO Q15M PRN; Protocol PRN Reason: per Hypoglycemia Standing Ord. Insulin Glargine (Insulin Glargine,Hum.Rec.Anlog 100 Unit/Ml 10 Ml Vial) 20 unit SUBCUT DAILY@0730 [facility] Last Admin: 08/29/22 08:07 Dose: 20 unit Documented By: TONNY Insulin Glargine (Insulin Glargine,Hum.Rec.Anlog 100 Unit/Ml 10 Ml Vial) 5 unit SUBCUT BEDTIME [facility] Last Admin: 08/28/22 21:07 Dose: 5 unit Documented By: AUGUSTINA Insulin Human Lispro (Insulin Lispro 100 Unit/Ml 3 Ml Vial) 0 unit SUBCUT QIDACHS [facility]; Protocol Last Admin: 08/29/22 08:07 Dose: 2 unit Documented By: TONNY Lidocaine (Lidocaine 4 % Patch Adh..Patch) 1 patch TRANSDERMA DAILY [facility]; Protocol Last Admin: 08/29/22 08:07 Dose: 1 patch Documented By: TONNY Metoprolol Succinate (Metoprolol Succinate Er 100 Mg Tab.Er.24h) 100 mg PO DAILY [facility] Last Admin: 08/29/22 08:06 Dose: 100 mg Documented By: TONNY Ondansetron HCl (Ondansetron Hcl 4 Mg/2 Ml Vial) 4 mg IVPUSH Q8H PRN PRN Reason: Nausea and Vomiting Last Admin: 07/07/22 01:05 Dose: 4 mg Documented By: MARIANN Ondansetron HCl (Ondansetron Hcl 4 Mg/2 Ml Vial) 4 mg IVPUSH ONCE PRN PRN Reason: Nausea and Vomiting Ondansetron HCl (Ondansetron Hcl 4 Mg/2 Ml Vial) 4 mg IVPUSH ONCE PRN PRN Reason: Nausea and Vomiting Oxycodone HCl (Oxycodone Hcl Immed Release 5 Mg Tablet) 5 mg PO Q6H PRN PRN Reason: Pain, Mild (Pain Scale 1-3) Last Admin: 08/29/22 00:20 Dose: 5 mg Documented By: AUGUSTINA Pharmacy Consult (Consult Rx Perform Med Rec) 1 each MISCELLANE ONCE PRN PRN Reason: Consult order Polyethylene Glycol (Polyethylene Glycol 3350 17 Gm Powd.Pack) 17 gm PO DAILY PRN PRN Reason: constipation Last Admin: 08/06/22 08:19 Dose: 17 gm Documented By: ADRIANA Polyethylene Glycol (Polyethylene Glycol 3350 17 Gm Powd.Pack) 17 gm PO DAILY [facility] Last Admin: 08/28/22 08:17 Dose: 17 gm Documented By: NADEGE Sodium Chloride (0.9 % Sodium Chloride Flush 3 Ml Syringe) 3 ml IVFLUSH QSHIFT [facility] Last Admin: 08/29/22 08:08 Dose: Not Given Documented By: TONNY Non-Admin Reason: No Access Sodium Hypochlorite (Sodium Hypochlorite 0.25% 473 Ml Solution) 1 appl TOPICAL BID [facility] Last Admin: 08/29/22 08:17 Dose: 1 appl Documented By: TONNY Tamsulosin HCl (Tamsulosin Hcl 0.4 Mg Capsule) 0.8 mg PO DAILY [facility] Last Admin: 08/29/22 08:11 Dose: 0.8 mg Documented By: TONNY Vitamin D (Cholecalciferol (Vitamin D3) 25 Mcg Tablet) 50 mcg PO DAILY [facility] Last Admin: 08/29/22 08:06 Dose: 50 mcg Documented By: TONNY Zinc Acetate/Diphenhydramine (Diphenhydramine Hcl 2 % Cream 28 Gm Tube) 1 appl TOPICAL TID PRN; Protocol PRN Reason: itching Labs 08/25/22 07:37 08/25/22 07:37 Labs: Laboratory Results - last 24 hr 08/28/22 08/28/22 08/28/22 11:24 16:12 20:00 POC Glucose 315 H 352 H* 411 H* 08/29/22 07:11 POC Glucose 160 H Assessment and Plan (1) Incomplete bladder emptying: Status: Acute (2) Stage 4 decubitus ulcer: Status: Acute Plan 74yo M with DM2, HTN, HLD, chronic venous stasis dermatitis presented with mechanical fall, admitted for hypoxia due to PNA Sacral decubitus ulcer.? Unstageable, necrotic 10cm x10 cm with 4 cm depth frequent turn,air loss? bed ,continue wound care Improving s/p debridements 07/08, 07/17, 1/2 s/p wound vac placement 07/22/22 - removed 07/25 after it became soiled continue wet to dry dressings , being followed by General surgery- d/w surgery - wound vac not helping and would avoid Atrial flutter/fib, rate stable LVEF >70% continue toprol xl and Eliquis Episode of SVT vs atrial tachycardia 07/26 HR improved with IV Lopressor, finish loading dose of amiodarone and started on amiodarone 200 mg by mouth daily on August 07, continue Toprol XL Acute blood loss anemia. Resolved s/p blood loss at site of decub ulcer patient received 2 unit of packed RBC continue ferrous sulfate b.i.d. H/H stable CBC check periodically Traumatic SAH CT brain 06/26 ? New small areas of extra-axial hemorrhage adjacent to the left posterior parietal lobe, bilateral occipital lobes and in the occipital horns of both lateral ventricles, repeat CT 06/28 unchanged seen by neuro - AC was held for two weeks no headache, no dizziness No other complications Acute hypoxic respiratory failure due to PNA. Resolved finished 10d of ABX back on room air Urinary retention failed voiding trial x2 continue tamsulosin and finasteride seen by urology, continue roberts upon discharge - outpatient urology follow up Hyponatremia resolved s/p urea cortisol, TSH wnl Mechanical fall difficulty ambulating; awaiting SNF placement, PT has been working with him I do not think he will walk again generalized weakness 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 but not clinically NPH per Neurology incidental 1.3cm pancreatic lesions may reflect adjacent pancreatic cysts outpt MRI/MRCP DM2? : fs acceptable continue Lantus, SSI adjusted . HTN Stable blood pressures, continue metoprolol losartan and hydralazine discontinued due to soft blood pressures HLD statin VTE ppx: SCDs,? eliquis Full code ongoin? 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 Time Spent With Patient Time: Total time managing care of this patient today ____ minutes. Quality Stroke Does the patient have a stroke diagnosis?: No VTE Prior VTE?: No VTE Risk Level:: Medical - moderate - high VTE Device Contraindication: Treatment Not Indicated VTE Drug Contraindication: N/A - Med Ordered
[2022-08-29] MEDS: metFORMIN HCl 850 MG TABLET PO ×2 (09:05→16:48)
[2022-08-29 11:55] LABS: Glucose, Whole Blood 186 mg/dL (60-115)
--- NOTE | 2022-08-29 13:41 | MHC.CM.PN ---
PT CONTINUES TO AWAIT LTC PLACEMENT PER [facility], PT DOES NOT YET HAVE A MH NUMBER MH HAS REQUESTED ADDITIONAL INFO REFERRALS HAVE BEEN BROADCASTED AND UPDATED
[2022-08-29 16:00] VITALS: BP 131/61; PULSE 93; RESP 16; TEMP 37; O2SAT 95
[2022-08-29 16:25] LABS: Glucose, Whole Blood 272 mg/dL (60-115)
[2022-08-29 19:50] VITALS: BP 99/52; PULSE 90; RESP 16; TEMP 36.5; O2SAT 96
[2022-08-29 20:02] LABS: Glucose, Whole Blood 211 mg/dL (60-115)
[2022-08-29] MEDS: Insulin Glargine,Hum.rec.anlog 100 UNIT/ML 10 ML VIAL SUBCUT (20:21)
[2022-08-30 03:13] VITALS: BP 137/61; PULSE 96; RESP 17; TEMP 36.6; O2SAT 97
[2022-08-30] MEDS: Acetaminophen 325 MG TABLET 650 MG PO (07:00)
[2022-08-30] MEDS: oxyCODONE HCl Immed Release 5 MG TABLET PO ×2 (07:00→15:01)
[2022-08-30 07:10] VITALS: BP 146/64; PULSE 93; RESP 16; TEMP 36.4; O2SAT 95
[2022-08-30 07:18] LABS: Glucose, Whole Blood 167 mg/dL (60-115)
[2022-08-30] MEDS: Lidocaine 4 % Patch ADH..PATCH 1 PATCH TRANSDERMA (08:46)
[2022-08-30] MEDS: Metoprolol Succinate ER 100 MG TAB.ER.24H PO (08:47)
[2022-08-30] MEDS: Finasteride 5 MG TABLET PO (08:47)
[2022-08-30] MEDS: metFORMIN HCl 850 MG TABLET PO ×2 (08:47→16:46)
[2022-08-30] MEDS: Amiodarone HCL 200 MG TABLET PO (08:47)
[2022-08-30] MEDS: Ferrous Sulfate 324 MG TABLET.DR PO ×2 (08:47→16:46)
[2022-08-30] MEDS: Apixaban 5 MG TABLET PO ×2 (08:47→20:30)
[2022-08-30] MEDS: Cholecalciferol (Vitamin D3) 25 MCG TABLET 50 MCG PO (08:47)
[2022-08-30] MEDS: Tamsulosin HCL 0.4 MG CAPSULE 0.8 MG PO (08:48)
[2022-08-30] MEDS: Insulin Lispro 100 UNIT/ML 3 ML VIAL SUBCUT ×4 (08:48→20:30)
[2022-08-30] MEDS: Insulin Glargine,Hum.rec.anlog 100 UNIT/ML 10 ML VIAL 25 UNIT SUBCUT (08:49)
--- NOTE | 2022-08-30 09:52 | P.PNIM_ITS ---
Subjective Subjective Date of Service: 08/30/22 Interval History: awaiting placement, no new issues. Review of Systems has loose stool few time yesterday denies any nausea or vomitin no diarrahe or loose stool today or abd pain eating breatfast fine Physical Exam Vital Signs: Vital Signs: Last Vital Signs Temp 97.6 F 08/30/22 07:10 Pulse 93 08/30/22 07:10 Resp 16 08/30/22 07:10 BP 146/64 H 08/30/22 07:10 Pulse Ox 95 08/30/22 07:10 O2 Del Method 08/30/22 07:10 O2 Flow Rate 4 08/05/22 13:22 BMI result Body Mass Index 26.6 ?General: AO X 1, no acute distress Resp:? CTA bilateral CVS: S1,S2,RRR GI: +BS, NT, no distention Skin: decub ulcer stable Neuro:? motor grossly intact Psych: appropriate affect Objective Data Active Medications Acetaminophen (Acetaminophen 325 Mg Tablet) 650 mg PO Q6H PRN PRN Reason: Pain, Mild (Pain Scale 1-3) Last Admin: 08/30/22 07:00 Dose: 650 mg Documented By: BRENDA Amiodarone HCl (Amiodarone Hcl 200 Mg Tablet) 200 mg PO DAILY [facility] Last Admin: 08/30/22 08:47 Dose: 200 mg Documented By: NICOLLE Apixaban (Apixaban 5 Mg Tablet) 5 mg PO BID [facility] Last Admin: 08/30/22 08:47 Dose: 5 mg Documented By: NICOLLE Dextrose (Dextrose 50 % 25 Gm/50 Ml Syringe) 25 gm IVPUSH Q15M PRN; Protocol PRN Reason: per Hypoglycemia Standing Ord. Ferrous Sulfate (Ferrous Sulfate 324 Mg Tablet.) 324 mg PO BIDWM [facility] Last Admin: 08/30/22 08:47 Dose: 324 mg Documented By: NICOLLE Finasteride (Finasteride 5 Mg Tablet) 5 mg PO DAILY [facility] Last Admin: 08/30/22 08:47 Dose: 5 mg Documented By: NICOLLE Glucose (Glucose Gel 15 Gm Gel..Gram.) 15 gm PO Q15M PRN; Protocol PRN Reason: per Hypoglycemia Standing Ord. Insulin Glargine (Insulin Glargine,Hum.Rec.Anlog 100 Unit/Ml 10 Ml Vial) 5 unit SUBCUT BEDTIME [facility] Last Admin: 08/29/22 20:21 Dose: 5 unit Documented By: CHARLI Insulin Glargine (Insulin Glargine,Hum.Rec.Anlog 100 Unit/Ml 10 Ml Vial) 25 unit SUBCUT DAILY@0730 [facility] Last Admin: 08/30/22 08:49 Dose: 25 unit Documented By: NICOLLE Insulin Human Lispro (Insulin Lispro 100 Unit/Ml 3 Ml Vial) 0 unit SUBCUT QIDACHS [facility]; Protocol Last Admin: 08/30/22 08:48 Dose: 4 unit Documented By: NICOLLE Lidocaine (Lidocaine 4 % Patch Adh..Patch) 1 patch TRANSDERMA DAILY [facility]; Protocol Last Admin: 08/30/22 08:46 Dose: 1 patch Documented By: NICOLLE Metformin HCl (Metformin Hcl 850 Mg Tablet) 850 mg PO BIDWM [facility] Last Admin: 08/30/22 08:47 Dose: 850 mg Documented By: NICOLLE Metoprolol Succinate (Metoprolol Succinate Er 100 Mg Tab.Er.24h) 100 mg PO DAILY [facility] Last Admin: 08/30/22 08:47 Dose: 100 mg Documented By: NICOLLE Ondansetron HCl (Ondansetron Hcl 4 Mg/2 Ml Vial) 4 mg IVPUSH Q8H PRN PRN Reason: Nausea and Vomiting Last Admin: 07/07/22 01:05 Dose: 4 mg Documented By: MARIANN Ondansetron HCl (Ondansetron Hcl 4 Mg/2 Ml Vial) 4 mg IVPUSH ONCE PRN PRN Reason: Nausea and Vomiting Ondansetron HCl (Ondansetron Hcl 4 Mg/2 Ml Vial) 4 mg IVPUSH ONCE PRN PRN Reason: Nausea and Vomiting Oxycodone HCl (Oxycodone Hcl Immed Release 5 Mg Tablet) 5 mg PO Q6H PRN PRN Reason: Pain, Mild (Pain Scale 1-3) Last Admin: 08/30/22 07:00 Dose: 5 mg Documented By: BRENDA Pharmacy Consult (Consult Rx Perform Med Rec) 1 each MISCELLANE ONCE PRN PRN Reason: Consult order Polyethylene Glycol (Polyethylene Glycol 3350 17 Gm Powd.Pack) 17 gm PO DAILY PRN PRN Reason: constipation Last Admin: 08/06/22 08:19 Dose: 17 gm Documented By: ADRIANA Sodium Chloride (0.9 % Sodium Chloride Flush 3 Ml Syringe) 3 ml IVFLUSH QSHIFT [facility] Last Admin: 08/30/22 09:05 Dose: Not Given Documented By: NICOLLE Non-Admin Reason: No Access Sodium Hypochlorite (Sodium Hypochlorite 0.25% 473 Ml Solution) 1 appl TOPICAL BID [facility] Last Admin: 08/29/22 20:23 Dose: 1 appl Documented By: CHARLI Tamsulosin HCl (Tamsulosin Hcl 0.4 Mg Capsule) 0.8 mg PO DAILY [facility] Last Admin: 08/30/22 08:48 Dose: 0.8 mg Documented By: NICOLLE Vitamin D (Cholecalciferol (Vitamin D3) 25 Mcg Tablet) 50 mcg PO DAILY [facility] Last Admin: 08/30/22 08:47 Dose: 50 mcg Documented By: NICOLLE Zinc Acetate/Diphenhydramine (Diphenhydramine Hcl 2 % Cream 28 Gm Tube) 1 appl TOPICAL TID PRN; Protocol PRN Reason: itching Labs 08/25/22 07:37 08/25/22 07:37 Labs: Laboratory Results - last 24 hr 08/29/22 08/29/22 08/29/22 11:52 16:20 19:59 POC Glucose 186 H 272 H 211 H 08/30/22 07:15 POC Glucose 167 H Assessment and Plan (1) Incomplete bladder emptying: Status: Acute (2) Stage 4 decubitus ulcer: Status: Acute Plan 74yo M with DM2, HTN, HLD, chronic venous stasis dermatitis presented with mechanical fall, admitted for hypoxia due to PNA Sacral decubitus ulcer.? Unstageable, necrotic 10cm x10 cm with 4 cm depth frequent turn,air loss? bed ,continue wound care Improving s/p debridements 07/08, 07/17, 1/2 s/p wound vac placement 07/22/22 - removed 07/25 after it became soiled continue wet to dry dressings , being followed by General surgery- d/w surgery - wound vac not helping and would avoid Atrial flutter/fib, rate stable LVEF >70% continue toprol xl and Eliquis Episode of SVT vs atrial tachycardia 07/26 HR improved with IV Lopressor, finish loading dose of amiodarone and started on amiodarone 200 mg by mouth daily on August 07, continue Toprol XL Acute blood loss anemia. Resolved s/p blood loss at site of decub ulcer patient received 2 unit of packed RBC continue ferrous sulfate b.i.d. H/H stable CBC check periodically Traumatic SAH CT brain 06/26 ? New small areas of extra-axial hemorrhage adjacent to the left posterior parietal lobe, bilateral occipital lobes and in the occipital horns of both lateral ventricles, repeat CT 06/28 unchanged seen by neuro - AC was held for two weeks no headache, no dizziness No other complications Acute hypoxic respiratory failure due to PNA. Resolved finished 10d of ABX back on room air Urinary retention failed voiding trial x2 continue tamsulosin and finasteride seen by urology, continue roberts upon discharge - outpatient urology follow up Hyponatremia resolved s/p urea cortisol, TSH wnl Mechanical fall difficulty ambulating; awaiting SNF placement, PT has been working with him I do not think he will walk again generalized weakness 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 but not clinically NPH per Neurology incidental 1.3cm pancreatic lesions may reflect adjacent pancreatic cysts outpt MRI/MRCP DM2? : fs acceptable continue Lantus, SSI adjusted . HTN Stable blood pressures, continue metoprolol losartan and hydralazine discontinued due to soft blood pressures HLD statin VTE ppx: SCDs,? eliquis Full code ongoin? 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 Time Spent With Patient Time: Total time managing care of this patient today ____ minutes. Quality Stroke Does the patient have a stroke diagnosis?: No VTE Prior VTE?: No VTE Risk Level:: Medical - moderate - high VTE Device Contraindication: Treatment Not Indicated VTE Drug Contraindication: N/A - Med Ordered
[2022-08-30 11:33] LABS: Glucose, Whole Blood 321 mg/dL (60-115)
--- NOTE | 2022-08-30 13:16 | MHC.CLN ---
F/U PO INTAKE MOST MEALS 50-100%. DIET RX: DIABETIC 2200 KCALS-APPROPRIATE. POC REVIEWED AND AT TIMES GREATER THAN 300. CHANGING ENSURE TID TO GLUCERNA TID TO BETTER CONTROL BLOOD GLUCOSE. GLUCERNA TID PROVIDES ADDITIONAL 710 KCALS, 30 G PROTEIN. SKIN: REDNESS TO RIGHT HEEL AND BUTTOCKS. STAGE IV TO COCCYX. CONTINUE TO MONITOR PO INTAKE AND SUPPLEMENT ACCEPTANCE. RD TO CONTINUE TO FOLLOW WEEKLY.
--- NOTE | 2022-08-30 15:31 | MHC.CM.PN ---
EMR REVIEWED, PT CONT'S TO BE A LTC BED SEARCH, PT'S [employer] MANAGED MEDICARE HAS BEEN A BARRIER FOR SOME FACILITIES, PT'S HCP MARYA HAS CALLED MEDICARE W/PT TO CAHNGE PT TO [employer]ADITIONAL MEDICARE WHICH SHOULD GO INTO EFFECT ON 09/04/22, SNF REFERRAL UPDATED W/NEW INSURANCE INFORMATION, CM STILL AWAITING BED OFFER AND WILL CONT TO FOLLOW D/C NEEDS.
[2022-08-30 16:00] VITALS: BP 119/57; PULSE 97; RESP 16; TEMP 36.5; O2SAT 97
[2022-08-30 16:35] LABS: Glucose, Whole Blood 269 mg/dL (60-115)
[2022-08-30 19:55] VITALS: BP 109/53; PULSE 93; RESP 18; TEMP 36.9; O2SAT 97
[2022-08-30 20:05] LABS: Glucose, Whole Blood 285 mg/dL (60-115)
[2022-08-30] MEDS: Insulin Glargine,Hum.rec.anlog 100 UNIT/ML 10 ML VIAL SUBCUT (20:32)
[2022-08-30] MEDS: 0.9 % Sodium Chloride Flush 3 ML SYRINGE IVFLUSH (21:06)
[2022-08-31 03:09] VITALS: BP 117/56; PULSE 87; RESP 16; TEMP 37; O2SAT 96
[2022-08-31] MEDS: oxyCODONE HCl Immed Release 5 MG TABLET PO ×3 (05:02→20:51)
[2022-08-31 06:58] VITALS: BP 119/61; PULSE 84; RESP 18; TEMP 36.6; O2SAT 97
[2022-08-31 07:06] LABS: Glucose, Whole Blood 169 mg/dL (60-115)
[2022-08-31] MEDS: Lidocaine 4 % Patch ADH..PATCH 1 PATCH TRANSDERMA (08:00)
[2022-08-31] MEDS: Finasteride 5 MG TABLET PO (08:01)
[2022-08-31] MEDS: Insulin Glargine,Hum.rec.anlog 100 UNIT/ML 10 ML VIAL 25 UNIT SUBCUT (08:01)
[2022-08-31] MEDS: Cholecalciferol (Vitamin D3) 25 MCG TABLET 50 MCG PO (08:01)
[2022-08-31] MEDS: Insulin Lispro 100 UNIT/ML 3 ML VIAL SUBCUT ×4 (08:01→20:45)
[2022-08-31] MEDS: Amiodarone HCL 200 MG TABLET PO (08:02)
[2022-08-31] MEDS: Apixaban 5 MG TABLET PO ×2 (08:02→20:45)
[2022-08-31] MEDS: Tamsulosin HCL 0.4 MG CAPSULE 0.8 MG PO (08:02)
[2022-08-31] MEDS: Ferrous Sulfate 324 MG TABLET.DR PO ×2 (08:02→16:16)
[2022-08-31] MEDS: metFORMIN HCl 850 MG TABLET PO ×2 (08:02→16:16)
[2022-08-31] MEDS: Metoprolol Succinate ER 100 MG TAB.ER.24H PO (08:02)
--- NOTE | 2022-08-31 10:37 | P.PNIM_ITS ---
Subjective Subjective Date of Service: 08/31/22 Interval History: awaiting placement, no new issues. Review of Systems denies any nausea or vomitin no diarrahe or loose stool today or abd pain eating breatfast fine Physical Exam Vital Signs: Vital Signs: Last Vital Signs Temp 97.8 F 08/31/22 06:58 Pulse 84 08/31/22 06:58 Resp 18 08/31/22 06:58 BP 119/61 08/31/22 06:58 Pulse Ox 97 08/31/22 06:58 O2 Del Method 08/31/22 06:58 O2 Flow Rate 4 08/05/22 13:22 BMI result Body Mass Index 26.6 General: AO X 1, no acute distress Resp:? CTA bilateral CVS: S1,S2,RRR GI: +BS, NT, no distention Skin: decub ulcer stable Neuro:? motor grossly intact Psych: appropriate affect Objective Data Active Medications Acetaminophen (Acetaminophen 325 Mg Tablet) 650 mg PO Q6H PRN PRN Reason: Pain, Mild (Pain Scale 1-3) Last Admin: 08/30/22 07:00 Dose: 650 mg Documented By: BRENDA Amiodarone HCl (Amiodarone Hcl 200 Mg Tablet) 200 mg PO DAILY [facility] Last Admin: 08/31/22 08:02 Dose: 200 mg Documented By: PASQUALE Apixaban (Apixaban 5 Mg Tablet) 5 mg PO BID [facility] Last Admin: 08/31/22 08:02 Dose: 5 mg Documented By: PASQUALE Dextrose (Dextrose 50 % 25 Gm/50 Ml Syringe) 25 gm IVPUSH Q15M PRN; Protocol PRN Reason: per Hypoglycemia Standing Ord. Ferrous Sulfate (Ferrous Sulfate 324 Mg Tablet.) 324 mg PO BIDWM [facility] Last Admin: 08/31/22 08:02 Dose: 324 mg Documented By: PASQUALE Finasteride (Finasteride 5 Mg Tablet) 5 mg PO DAILY [facility] Last Admin: 08/31/22 08:01 Dose: 5 mg Documented By: PASQUALE Glucose (Glucose Gel 15 Gm Gel..Gram.) 15 gm PO Q15M PRN; Protocol PRN Reason: per Hypoglycemia Standing Ord. Insulin Glargine (Insulin Glargine,Hum.Rec.Anlog 100 Unit/Ml 10 Ml Vial) 5 unit SUBCUT BEDTIME [facility] Last Admin: 08/30/22 20:32 Dose: 5 unit Documented By: CHARLI Insulin Glargine (Insulin Glargine,Hum.Rec.Anlog 100 Unit/Ml 10 Ml Vial) 25 unit SUBCUT DAILY@0730 [facility] Last Admin: 08/31/22 08:01 Dose: 25 unit Documented By: PASQUALE Insulin Human Lispro (Insulin Lispro 100 Unit/Ml 3 Ml Vial) 0 unit SUBCUT QIDACHS [facility]; Protocol Last Admin: 08/31/22 08:01 Dose: 4 unit Documented By: PASQUALE Lidocaine (Lidocaine 4 % Patch Adh..Patch) 1 patch TRANSDERMA DAILY [facility]; Protocol Last Admin: 08/31/22 08:00 Dose: 1 patch Documented By: PASQUALE Metformin HCl (Metformin Hcl 850 Mg Tablet) 850 mg PO BIDWM [facility] Last Admin: 08/31/22 08:02 Dose: 850 mg Documented By: PASQUALE Metoprolol Succinate (Metoprolol Succinate Er 100 Mg Tab.Er.24h) 100 mg PO DAILY [facility] Last Admin: 08/31/22 08:02 Dose: 100 mg Documented By: PASQUALE Ondansetron HCl (Ondansetron Hcl 4 Mg/2 Ml Vial) 4 mg IVPUSH Q8H PRN PRN Reason: Nausea and Vomiting Last Admin: 07/07/22 01:05 Dose: 4 mg Documented By: MARIANN Ondansetron HCl (Ondansetron Hcl 4 Mg/2 Ml Vial) 4 mg IVPUSH ONCE PRN PRN Reason: Nausea and Vomiting Ondansetron HCl (Ondansetron Hcl 4 Mg/2 Ml Vial) 4 mg IVPUSH ONCE PRN PRN Reason: Nausea and Vomiting Oxycodone HCl (Oxycodone Hcl Immed Release 5 Mg Tablet) 5 mg PO Q6H PRN PRN Reason: Pain, Mild (Pain Scale 1-3) Last Admin: 08/31/22 05:02 Dose: 5 mg Documented By: CHALRI Pharmacy Consult (Consult Rx Perform Med Rec) 1 each MISCELLANE ONCE PRN PRN Reason: Consult order Polyethylene Glycol (Polyethylene Glycol 3350 17 Gm Powd.Pack) 17 gm PO DAILY PRN PRN Reason: constipation Last Admin: 08/06/22 08:19 Dose: 17 gm Documented By: ADRIANA Sodium Chloride (0.9 % Sodium Chloride Flush 3 Ml Syringe) 3 ml IVFLUSH QSHIFT [facility] Last Admin: 08/31/22 08:03 Dose: Not Given Documented By: PASQUALE Non-Admin Reason: No Access Sodium Hypochlorite (Sodium Hypochlorite 0.25% 473 Ml Solution) 1 appl TOPICAL BID [facility] Last Admin: 08/31/22 08:04 Dose: 1 appl Documented By: PASQUALE Tamsulosin HCl (Tamsulosin Hcl 0.4 Mg Capsule) 0.8 mg PO DAILY [facility] Last Admin: 08/31/22 08:02 Dose: 0.8 mg Documented By: PASQUALE Vitamin D (Cholecalciferol (Vitamin D3) 25 Mcg Tablet) 50 mcg PO DAILY [facility] Last Admin: 08/31/22 08:01 Dose: 50 mcg Documented By: PASQUALE Zinc Acetate/Diphenhydramine (Diphenhydramine Hcl 2 % Cream 28 Gm Tube) 1 appl TOPICAL TID PRN; Protocol PRN Reason: itching Labs 08/25/22 07:37 08/25/22 07:37 Labs: Laboratory Results - last 24 hr 08/30/22 08/30/22 08/30/22 11:27 16:30 20:01 POC Glucose 321 H 269 H 285 H 08/31/22 06:58 POC Glucose 169 H Assessment and Plan (1) Incomplete bladder emptying: Status: Acute (2) Stage 4 decubitus ulcer: Status: Acute Plan 74yo M with DM2, HTN, HLD, chronic venous stasis dermatitis presented with mechanical fall, admitted for hypoxia due to PNA Sacral decubitus ulcer.? Unstageable, necrotic 10cm x10 cm with 4 cm depth frequent turn,air loss? bed ,continue wound care Improving s/p debridements 07/08, 07/17, 1 s/p wound vac placement 07/22/22 - removed 07/25 after it became soiled continue wet to dry dressings , being followed by General surgery- d/w surgery - wound vac not helping and would avoid Atrial flutter/fib, rate stable LVEF >70% continue toprol xl and Eliquis Episode of SVT vs atrial tachycardia 07/26 HR improved with IV Lopressor, finish loading dose of amiodarone and started on amiodarone 200 mg by mouth daily on August 07, continue Toprol XL Acute blood loss anemia. Resolved s/p blood loss at site of decub ulcer patient received 2 unit of packed RBC continue ferrous sulfate b.i.d. H/H stable CBC check periodically Traumatic SAH CT brain 06/26 ? New small areas of extra-axial hemorrhage adjacent to the left posterior parietal lobe, bilateral occipital lobes and in the occipital horns of both lateral ventricles, repeat CT 06/28 unchanged seen by neuro - AC was held for two weeks no headache, no dizziness No other complications Acute hypoxic respiratory failure due to PNA. Resolved finished 10d of ABX back on room air Urinary retention failed voiding trial x2 continue tamsulosin and finasteride seen by urology, continue roberts upon discharge - outpatient urology follow up Hyponatremia resolved s/p urea cortisol, TSH wnl Mechanical fall difficulty ambulating; awaiting SNF placement, PT has been working with him I do not think he will walk again generalized weakness 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 but not clinically NPH per Neurology incidental 1.3cm pancreatic lesions may reflect adjacent pancreatic cysts outpt MRI/MRCP DM2? : fs acceptable continue Lantus, SSI adjusted . HTN Stable blood pressures, continue metoprolol losartan and hydralazine discontinued due to soft blood pressures HLD statin VTE ppx: SCDs,? eliquis Full code ongoin? 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 Time Spent With Patient Time: Total time managing care of this patient today ____ minutes. Quality Stroke Does the patient have a stroke diagnosis?: No VTE Prior VTE?: No VTE Risk Level:: Medical - moderate - high VTE Device Contraindication: Treatment Not Indicated VTE Drug Contraindication: N/A - Med Ordered
[2022-08-31 11:09] LABS: Glucose, Whole Blood 257 mg/dL (60-115)
[2022-08-31 15:30] VITALS: BP 119/56; PULSE 84; RESP 19; TEMP 36.7; O2SAT 95
[2022-08-31 15:32] LABS: Glucose, Whole Blood 156 mg/dL (60-115)
[2022-08-31 19:17] VITALS: BP 134/63; PULSE 83; RESP 19; TEMP 36.5; O2SAT 92
[2022-08-31 19:20] LABS: Glucose, Whole Blood 160 mg/dL (60-115)
[2022-08-31] MEDS: Acetaminophen 325 MG TABLET 650 MG PO (20:44)
[2022-08-31] MEDS: Insulin Glargine,Hum.rec.anlog 100 UNIT/ML 10 ML VIAL SUBCUT (20:45)
[2022-09-01 04:00] VITALS: BP 141/65; PULSE 81; RESP 18; TEMP 36.2; O2SAT 97
[2022-09-01 07:35] VITALS: BP 139/59; PULSE 86; RESP 18; TEMP 36.4; O2SAT 98
[2022-09-01 07:52] LABS: Glucose, Whole Blood 103 mg/dL (60-115)
[2022-09-01 08:02] LABS: Creatinine Clr Calc Pharmacy 117.4; Estimated Glomerular Filt Rate > 60
[2022-09-01] MEDS: Metoprolol Succinate ER 100 MG TAB.ER.24H PO (09:07)
[2022-09-01] MEDS: Apixaban 5 MG TABLET PO ×2 (09:07→20:40)
[2022-09-01] MEDS: Cholecalciferol (Vitamin D3) 25 MCG TABLET 50 MCG PO (09:07)
[2022-09-01] MEDS: metFORMIN HCl 850 MG TABLET PO ×2 (09:07→16:51)
[2022-09-01] MEDS: Tamsulosin HCL 0.4 MG CAPSULE 0.8 MG PO (09:07)
[2022-09-01] MEDS: Finasteride 5 MG TABLET PO (09:08)
[2022-09-01] MEDS: Ferrous Sulfate 324 MG TABLET.DR PO ×2 (09:08→16:51)
[2022-09-01] MEDS: Amiodarone HCL 200 MG TABLET PO (09:08)
[2022-09-01] MEDS: Acetaminophen 325 MG TABLET 650 MG PO ×2 (09:17→20:40)
[2022-09-01] MEDS: oxyCODONE HCl Immed Release 5 MG TABLET PO ×3 (11:16→20:39)
[2022-09-01] MEDS: Insulin Lispro 100 UNIT/ML 3 ML VIAL SUBCUT ×3 (11:16→21:16)
--- NOTE | 2022-09-01 11:35 | P.PNIM_ITS ---
Subjective Subjective Date of Service: 09/01/22 Interval History: awaiting placement, no new issues. Review of Systems denies any nausea or vomitin no diarrahe or abd pain Physical Exam Vital Signs: Vital Signs: Last Vital Signs Temp 97.6 F 09/01/22 07:35 Pulse 86 09/01/22 07:35 Resp 18 09/01/22 07:35 BP 139/59 L 09/01/22 07:35 Pulse Ox 98 09/01/22 07:35 O2 Del Method 09/01/22 07:35 O2 Flow Rate 4 08/05/22 13:22 BMI result Body Mass Index 26.6 ?General: AO X 1, no acute distress Resp:? CTA bilateral CVS: S1,S2,RRR GI: +BS, NT, no distention Skin: decub ulcer stable Neuro:? motor grossly intact Psych: appropriate affect Objective Data Active Medications Acetaminophen (Acetaminophen 325 Mg Tablet) 650 mg PO Q6H PRN PRN Reason: Pain, Mild (Pain Scale 1-3) Last Admin: 09/01/22 09:17 Dose: 650 mg Documented By: DIPAK Amiodarone HCl (Amiodarone Hcl 200 Mg Tablet) 200 mg PO DAILY [facility] Last Admin: 09/01/22 09:08 Dose: 200 mg Documented By: DIPAK Apixaban (Apixaban 5 Mg Tablet) 5 mg PO BID [facility] Last Admin: 09/01/22 09:07 Dose: 5 mg Documented By: DIPAK Dextrose (Dextrose 50 % 25 Gm/50 Ml Syringe) 25 gm IVPUSH Q15M PRN; Protocol PRN Reason: per Hypoglycemia Standing Ord. Ferrous Sulfate (Ferrous Sulfate 324 Mg Tablet.) 324 mg PO BIDWM [facility] Last Admin: 09/01/22 09:08 Dose: 324 mg Documented By: DIPAK Finasteride (Finasteride 5 Mg Tablet) 5 mg PO DAILY [facility] Last Admin: 09/01/22 09:08 Dose: 5 mg Documented By: DIPAK Glucose (Glucose Gel 15 Gm Gel..Gram.) 15 gm PO Q15M PRN; Protocol PRN Reason: per Hypoglycemia Standing Ord. Insulin Glargine (Insulin Glargine,Hum.Rec.Anlog 100 Unit/Ml 10 Ml Vial) 5 unit SUBCUT BEDTIME [facility] Last Admin: 08/31/22 20:45 Dose: 5 unit Documented By: JULIETA Insulin Glargine (Insulin Glargine,Hum.Rec.Anlog 100 Unit/Ml 10 Ml Vial) 25 unit SUBCUT DAILY@0730 [facility] Last Admin: 09/01/22 09:06 Dose: Not Given Documented By: DIPAK Non-Admin Reason: holding per Dr. Martinez Insulin Human Lispro (Insulin Lispro 100 Unit/Ml 3 Ml Vial) 0 unit SUBCUT QIDACHS [facility]; Protocol Last Admin: 09/01/22 11:16 Dose: 6 unit Documented By: BRENDA Lidocaine (Lidocaine 4 % Patch Adh..Patch) 1 patch TRANSDERMA DAILY [facility]; Protocol Last Admin: 09/01/22 09:25 Dose: Not Given Documented By: DIPAK Non-Admin Reason: Patient Refused Metformin HCl (Metformin Hcl 850 Mg Tablet) 850 mg PO BIDWM [facility] Last Admin: 09/01/22 09:07 Dose: 850 mg Documented By: DIPAK Metoprolol Succinate (Metoprolol Succinate Er 100 Mg Tab.Er.24h) 100 mg PO DAILY [facility] Last Admin: 09/01/22 09:07 Dose: 100 mg Documented By: DIPAK Ondansetron HCl (Ondansetron Hcl 4 Mg/2 Ml Vial) 4 mg IVPUSH Q8H PRN PRN Reason: Nausea and Vomiting Last Admin: 07/07/22 01:05 Dose: 4 mg Documented By: MARIANN Ondansetron HCl (Ondansetron Hcl 4 Mg/2 Ml Vial) 4 mg IVPUSH ONCE PRN PRN Reason: Nausea and Vomiting Ondansetron HCl (Ondansetron Hcl 4 Mg/2 Ml Vial) 4 mg IVPUSH ONCE PRN PRN Reason: Nausea and Vomiting Oxycodone HCl (Oxycodone Hcl Immed Release 5 Mg Tablet) 5 mg PO Q6H PRN PRN Reason: Pain, Mild (Pain Scale 1-3) Last Admin: 09/01/22 11:16 Dose: 5 mg Documented By: BRENDA Pharmacy Consult (Consult Rx Perform Med Rec) 1 each MISCELLANE ONCE PRN PRN Reason: Consult order Polyethylene Glycol (Polyethylene Glycol 3350 17 Gm Powd.Pack) 17 gm PO DAILY PRN PRN Reason: constipation Last Admin: 08/06/22 08:19 Dose: 17 gm Documented By: ADRIANA Sodium Chloride (0.9 % Sodium Chloride Flush 3 Ml Syringe) 3 ml IVFLUSH QSHIFT [facility] Last Admin: 09/01/22 07:33 Dose: Not Given Documented By: DIPAK Non-Admin Reason: No Access Sodium Hypochlorite (Sodium Hypochlorite 0.25% 473 Ml Solution) 1 appl TOPICAL BID [facility] Last Admin: 09/01/22 09:09 Dose: 1 appl Documented By: DIPAK Tamsulosin HCl (Tamsulosin Hcl 0.4 Mg Capsule) 0.8 mg PO DAILY [facility] Last Admin: 09/01/22 09:07 Dose: 0.8 mg Documented By: DIPAK Vitamin D (Cholecalciferol (Vitamin D3) 25 Mcg Tablet) 50 mcg PO DAILY [facility] Last Admin: 09/01/22 09:07 Dose: 50 mcg Documented By: DIPAK Zinc Acetate/Diphenhydramine (Diphenhydramine Hcl 2 % Cream 28 Gm Tube) 1 appl TOPICAL TID PRN; Protocol PRN Reason: itching Labs 08/25/22 07:37 09/01/22 07:22 Labs: Laboratory Results - last 24 hr 08/31/22 08/31/22 09/01/22 15:16 19:04 07:22 Estim Creat Clear Calc 117.4 Estimated GFR > 60 POC Glucose 156 H 160 H 09/01/22 07:43 Estim Creat Clear Calc Estimated GFR POC Glucose 103 Assessment and Plan (1) Incomplete bladder emptying: Status: Acute (2) Stage 4 decubitus ulcer: Status: Acute Plan 74yo M with DM2, HTN, HLD, chronic venous stasis dermatitis presented with mechanical fall, admitted for hypoxia due to PNA Sacral decubitus ulcer.? Unstageable, necrotic 10cm x10 cm with 4 cm depth frequent turn,air loss? bed ,continue wound care Improving s/p debridements 07/08, 07/17, 1/2 s/p wound vac placement 07/22/22 - removed 07/25 after it became soiled continue wet to dry dressings , being followed by General surgery- d/w surgery - wound vac not helping and would avoid Atrial flutter/fib, rate stable LVEF >70% continue toprol xl and Eliquis Episode of SVT vs atrial tachycardia 07/26 HR improved with IV Lopressor, finish loading dose of amiodarone and started on amiodarone 200 mg by mouth daily on August 07, continue Toprol XL Acute blood loss anemia. Resolved s/p blood loss at site of decub ulcer patient received 2 unit of packed RBC continue ferrous sulfate b.i.d. H/H stable CBC check periodically Traumatic SAH CT brain 06/26 ? New small areas of extra-axial hemorrhage adjacent to the left posterior parietal lobe, bilateral occipital lobes and in the occipital horns of both lateral ventricles, repeat CT 06/28 unchanged seen by neuro - AC was held for two weeks no headache, no dizziness No other complications Acute hypoxic respiratory failure due to PNA. Resolved finished 10d of ABX back on room air Urinary retention failed voiding trial x2 continue tamsulosin and finasteride seen by urology, continue roberts upon discharge - outpatient urology follow up Hyponatremia resolved s/p urea cortisol, TSH wnl Mechanical fall difficulty ambulating; awaiting SNF placement, PT has been working with him I do not think he will walk again generalized weakness 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 but not clinically NPH per Neurology incidental 1.3cm pancreatic lesions may reflect adjacent pancreatic cysts outpt MRI/MRCP DM2? : fs acceptable continue Lantus, SSI adjusted . HTN Stable blood pressures, continue metoprolol losartan and hydralazine discontinued due to soft blood pressures HLD statin VTE ppx: SCDs,? eliquis Full code ongoin? 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 Time Spent With Patient Time: Total time managing care of this patient today ____ minutes. Quality Stroke Does the patient have a stroke diagnosis?: No VTE Prior VTE?: No VTE Risk Level:: Medical - moderate - high VTE Device Contraindication: Treatment Not Indicated VTE Drug Contraindication: N/A - Med Ordered
[2022-09-01 12:10] LABS: Glucose, Whole Blood 222 mg/dL (60-115)
[2022-09-01 15:27] VITALS: BP 118/57; PULSE 85; RESP 17; TEMP 36.5; O2SAT 97
[2022-09-01 16:21] LABS: Glucose, Whole Blood 240 mg/dL (60-115)
[2022-09-01] MEDS: 0.9 % Sodium Chloride Flush 3 ML SYRINGE IVFLUSH (16:52)
[2022-09-01 19:24] VITALS: BP 133/56; PULSE 82; RESP 15; TEMP 36.6; O2SAT 98
[2022-09-01 20:51] LABS: Glucose, Whole Blood 182 mg/dL (60-115)
[2022-09-01] MEDS: Insulin Glargine,Hum.rec.anlog 100 UNIT/ML 10 ML VIAL SUBCUT (21:16)
[2022-09-02 04:00] VITALS: BP 109/56; PULSE 83; RESP 20; TEMP 36.6; O2SAT 98
[2022-09-02 07:31] VITALS: BP 136/61; PULSE 87; RESP 18; TEMP 36.4; O2SAT 95
[2022-09-02 07:50] LABS: Glucose, Whole Blood 133 mg/dL (60-115)
[2022-09-02] MEDS: Finasteride 5 MG TABLET PO (08:01)
[2022-09-02] MEDS: oxyCODONE HCl Immed Release 5 MG TABLET PO ×2 (08:01→16:22)
[2022-09-02] MEDS: Apixaban 5 MG TABLET PO ×2 (08:01→20:26)
[2022-09-02] MEDS: Metoprolol Succinate ER 100 MG TAB.ER.24H PO (08:01)
[2022-09-02] MEDS: Ferrous Sulfate 324 MG TABLET.DR PO ×2 (08:01→17:24)
[2022-09-02] MEDS: Amiodarone HCL 200 MG TABLET PO (08:01)
[2022-09-02] MEDS: metFORMIN HCl 850 MG TABLET PO ×2 (08:01→17:24)
[2022-09-02] MEDS: Cholecalciferol (Vitamin D3) 25 MCG TABLET 50 MCG PO (08:02)
[2022-09-02] MEDS: Tamsulosin HCL 0.4 MG CAPSULE 0.8 MG PO (08:02)
[2022-09-02] MEDS: Insulin Glargine,Hum.rec.anlog 100 UNIT/ML 10 ML VIAL 25 UNIT SUBCUT (08:03)
[2022-09-02] MEDS: Lidocaine 4 % Patch ADH..PATCH 1 PATCH TRANSDERMA (08:04)
[2022-09-02 11:37] LABS: Glucose, Whole Blood 224 mg/dL (60-115)
[2022-09-02] MEDS: Insulin Lispro 100 UNIT/ML 3 ML VIAL SUBCUT ×3 (11:57→20:26)
--- NOTE | 2022-09-02 14:09 | HO.PM.IMPN ---
Subjective Subjective Date of Service: 09/02/22 Interval History: awaiting placement, no new issues. Review of Systems denies any nausea or vomitin has some tearing eyes. no diarrahe or abd pain Physical Exam Vital Signs: Vital Signs: Last Vital Signs Temp 97.5 F 09/02/22 07:31 Pulse 87 09/02/22 07:31 Resp 18 09/02/22 07:31 BP 136/61 09/02/22 07:31 Pulse Ox 95 09/02/22 07:31 O2 Del Method 09/02/22 07:31 O2 Flow Rate 4 08/05/22 13:22 BMI result Body Mass Index 26.6 General: AO X 1, no acute distress Eyes: b/l teraing , no pain or erythema Resp:? CTA bilateral CVS: S1,S2,RRR GI: +BS, NT, no distention Skin: decub ulcer stable Neuro:? motor grossly intact Psych: appropriate affect Objective Data Active Medications Acetaminophen (Acetaminophen 325 Mg Tablet) 650 mg PO Q6H PRN PRN Reason: Pain, Mild (Pain Scale 1-3) Last Admin: 09/01/22 20:40 Dose: 650 mg Documented By: NARCISO Amiodarone HCl (Amiodarone Hcl 200 Mg Tablet) 200 mg PO DAILY [facility] Last Admin: 09/02/22 08:01 Dose: 200 mg Documented By: NADEGE Apixaban (Apixaban 5 Mg Tablet) 5 mg PO BID [facility] Last Admin: 09/02/22 08:01 Dose: 5 mg Documented By: NADEGE Dextrose (Dextrose 50 % 25 Gm/50 Ml Syringe) 25 gm IVPUSH Q15M PRN; Protocol PRN Reason: per Hypoglycemia Standing Ord. Ferrous Sulfate (Ferrous Sulfate 324 Mg Tablet.) 324 mg PO BIDWM [facility] Last Admin: 09/02/22 08:01 Dose: 324 mg Documented By: NADEGE Finasteride (Finasteride 5 Mg Tablet) 5 mg PO DAILY [facility] Last Admin: 09/02/22 08:01 Dose: 5 mg Documented By: NADEGE Glucose (Glucose Gel 15 Gm Gel..Gram.) 15 gm PO Q15M PRN; Protocol PRN Reason: per Hypoglycemia Standing Ord. Insulin Glargine (Insulin Glargine,Hum.Rec.Anlog 100 Unit/Ml 10 Ml Vial) 5 unit SUBCUT BEDTIME [facility] Last Admin: 09/01/22 21:16 Dose: 5 unit Documented By: NARCISO Insulin Glargine (Insulin Glargine,Hum.Rec.Anlog 100 Unit/Ml 10 Ml Vial) 25 unit SUBCUT DAILY@0730 [facility] Last Admin: 09/02/22 08:03 Dose: 25 unit Documented By: NADEGE Insulin Human Lispro (Insulin Lispro 100 Unit/Ml 3 Ml Vial) 0 unit SUBCUT QIDACHS [facility]; Protocol Last Admin: 09/02/22 11:57 Dose: 4 unit Documented By: NADEGE Lidocaine (Lidocaine 4 % Patch Adh..Patch) 1 patch TRANSDERMA DAILY [facility]; Protocol Last Admin: 09/02/22 08:04 Dose: 1 patch Documented By: NADEGE Metformin HCl (Metformin Hcl 850 Mg Tablet) 850 mg PO BIDWM [facility] Last Admin: 09/02/22 08:01 Dose: 850 mg Documented By: NADEGE Metoprolol Succinate (Metoprolol Succinate Er 100 Mg Tab.Er.24h) 100 mg PO DAILY [facility] Last Admin: 09/02/22 08:01 Dose: 100 mg Documented By: NADEGE Ondansetron HCl (Ondansetron Hcl 4 Mg/2 Ml Vial) 4 mg IVPUSH Q8H PRN PRN Reason: Nausea and Vomiting Last Admin: 07/07/22 01:05 Dose: 4 mg Documented By: MARIANN Ondansetron HCl (Ondansetron Hcl 4 Mg/2 Ml Vial) 4 mg IVPUSH ONCE PRN PRN Reason: Nausea and Vomiting Ondansetron HCl (Ondansetron Hcl 4 Mg/2 Ml Vial) 4 mg IVPUSH ONCE PRN PRN Reason: Nausea and Vomiting Oxycodone HCl (Oxycodone Hcl Immed Release 5 Mg Tablet) 5 mg PO Q6H PRN PRN Reason: Pain, Mild (Pain Scale 1-3) Last Admin: 09/02/22 08:01 Dose: 5 mg Documented By: NADEGE Pharmacy Consult (Consult Rx Perform Med Rec) 1 each MISCELLANE ONCE PRN PRN Reason: Consult order Polyethylene Glycol (Polyethylene Glycol 3350 17 Gm Powd.Pack) 17 gm PO DAILY PRN PRN Reason: constipation Last Admin: 08/06/22 08:19 Dose: 17 gm Documented By: ADRIANA Sodium Chloride (0.9 % Sodium Chloride Flush 3 Ml Syringe) 3 ml IVFLUSH QSHIFT [facility] Last Admin: 09/02/22 08:02 Dose: 3 ml Documented By: NADEGE Sodium Hypochlorite (Sodium Hypochlorite 0.25% 473 Ml Solution) 1 appl TOPICAL BID [facility] Last Admin: 09/02/22 09:15 Dose: 1 appl Documented By: NADEGE Tamsulosin HCl (Tamsulosin Hcl 0.4 Mg Capsule) 0.8 mg PO DAILY [facility] Last Admin: 09/02/22 08:02 Dose: 0.8 mg Documented By: NADEGE Vitamin D (Cholecalciferol (Vitamin D3) 25 Mcg Tablet) 50 mcg PO DAILY [facility] Last Admin: 09/02/22 08:02 Dose: 50 mcg Documented By: NADEGE Zinc Acetate/Diphenhydramine (Diphenhydramine Hcl 2 % Cream 28 Gm Tube) 1 appl TOPICAL TID PRN; Protocol PRN Reason: itching Labs 08/25/22 07:37 09/01/22 07:22 Labs: Laboratory Results - last 24 hr 09/01/22 09/01/22 09/02/22 15:33 20:44 07:31 POC Glucose 240 H 182 H 133 H 09/02/22 11:25 POC Glucose 224 H Assessment and Plan (1) Incomplete bladder emptying: Status: Acute (2) Stage 4 decubitus ulcer: Status: Acute (3) Dry eye: Status: Acute Plan 74yo M with DM2, HTN, HLD, chronic venous stasis dermatitis presented with mechanical fall, admitted for hypoxia due to PNA Sacral decubitus ulcer.? Unstageable, necrotic 10cm x10 cm with 4 cm depth frequent turn,air loss? bed ,continue wound care Improving s/p debridements 07/08, 07/17, 12 s/p wound vac placement 07/22/22 - removed 07/25 after it became soiled continue wet to dry dressings , being followed by General surgery- d/w surgery - wound vac not helping and would avoid Atrial flutter/fib, rate stable LVEF >70% continue toprol xl and Eliquis Episode of SVT vs atrial tachycardia 07/26 HR improved with IV Lopressor, finish loading dose of amiodarone and started on amiodarone 200 mg by mouth daily on August 07, continue Toprol XL Acute blood loss anemia. Resolved s/p blood loss at site of decub ulcer patient received 2 unit of packed RBC continue ferrous sulfate b.i.d. H/H stable CBC check periodically Traumatic SAH CT brain 06/26 ? New small areas of extra-axial hemorrhage adjacent to the left posterior parietal lobe, bilateral occipital lobes and in the occipital horns of both lateral ventricles, repeat CT 06/28 unchanged seen by neuro - AC was held for two weeks no headache, no dizziness No other complications Acute hypoxic respiratory failure due to PNA. Resolved finished 10d of ABX back on room air Urinary retention failed voiding trial x2 continue tamsulosin and finasteride seen by urology, continue roberts upon discharge - outpatient urology follow up Hyponatremia resolved s/p urea cortisol, TSH wnl Mechanical fall difficulty ambulating; awaiting SNF placement, PT has been working with him I do not think he will walk again generalized weakness 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 but not clinically NPH per Neurology incidental 1.3cm pancreatic lesions may reflect adjacent pancreatic cysts outpt MRI/MRCP DM2? : fs acceptable continue Lantus, SSI adjusted . HTN Stable blood pressures, continue metoprolol losartan and hydralazine discontinued due to soft blood pressures HLD statin b/l eye dryness -? tear ( clear tearin,no erythema or pain or vision change) added tear drops VTE ppx: SCDs,? eliquis Full code ongoin? 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 Time Spent With Patient Time: Total time managing care of this patient today ____ minutes. Quality Stroke Does the patient have a stroke diagnosis?: No VTE Prior VTE?: No VTE Risk Level:: Medical - moderate - high VTE Device Contraindication: Treatment Not Indicated VTE Drug Contraindication: N/A - Med Ordered
--- NOTE | 2022-09-02 14:15 | MHC.CM.PN ---
PT AWAITING SNF PLACEMENT PTS INSURANCE, [facility], HAS BEEN A BARRIER TO MULTIPLE FACILITIES PTS HCP HAS REQUEST INSURANCE TO CHANGE TO STRAIGHT MEDICARE INSURANCE CHANGE SHOULD BE COMPLETE BY 09/04/22 REFERRALS HAVE BEEN UPDATED AWAITING BED OFFERS
[2022-09-02 16:00] VITALS: BP 118/55; PULSE 97; RESP 17; TEMP 37.2; O2SAT 96
[2022-09-02 16:38] LABS: Glucose, Whole Blood 236 mg/dL (60-115)
[2022-09-02 19:51] VITALS: BP 124/60; PULSE 94; RESP 16; TEMP 37.3; O2SAT 94
[2022-09-02 20:16] LABS: Glucose, Whole Blood 239 mg/dL (60-115)
[2022-09-02] MEDS: Acetaminophen 325 MG TABLET 650 MG PO (20:24)
[2022-09-02] MEDS: Insulin Glargine,Hum.rec.anlog 100 UNIT/ML 10 ML VIAL SUBCUT (20:26)
[2022-09-02] MEDS: Artificial Tears 15 ML DROPS 1 DROP EYE-BOTH (20:26)
--- NOTE | 2022-09-03 02:49 | PC.NURSE ---
Administered PRN artificial tears eyedrops at 2030. About half an hour later pt reported his eyes burned like hell. Applied a cool wet towel over eyes, aware.
[2022-09-03 03:29] VITALS: BP 120/56; PULSE 86; RESP 18; TEMP 36.6; O2SAT 97
[2022-09-03 07:30] VITALS: BP 133/64; PULSE 89; RESP 18; TEMP 36.7; O2SAT 95
[2022-09-03 07:51] LABS: Glucose, Whole Blood 87 mg/dL (60-115)
[2022-09-03] MEDS: Insulin Glargine,Hum.rec.anlog 100 UNIT/ML 10 ML VIAL 25 UNIT SUBCUT (08:09)
[2022-09-03] MEDS: Ferrous Sulfate 324 MG TABLET.DR PO ×2 (08:10→16:42)
[2022-09-03] MEDS: Tamsulosin HCL 0.4 MG CAPSULE 0.8 MG PO (08:10)
[2022-09-03] MEDS: Finasteride 5 MG TABLET PO (08:10)
[2022-09-03] MEDS: Apixaban 5 MG TABLET PO ×2 (08:10→21:33)
[2022-09-03] MEDS: Amiodarone HCL 200 MG TABLET PO (08:10)
[2022-09-03] MEDS: Lidocaine 4 % Patch ADH..PATCH 1 PATCH TRANSDERMA (08:10)
[2022-09-03] MEDS: metFORMIN HCl 850 MG TABLET PO ×2 (08:10→16:41)
[2022-09-03] MEDS: Cholecalciferol (Vitamin D3) 25 MCG TABLET 50 MCG PO (08:10)
[2022-09-03] MEDS: Metoprolol Succinate ER 100 MG TAB.ER.24H PO (08:10)
[2022-09-03 11:34] LABS: Glucose, Whole Blood 183 mg/dL (60-115)
[2022-09-03] MEDS: Insulin Lispro 100 UNIT/ML 3 ML VIAL SUBCUT ×3 (11:53→21:32)
--- NOTE | 2022-09-03 12:45 | P.PNIM_ITS ---
Subjective Subjective Date of Service: 09/03/22 Interval History: awaiting placement, no new issues. Review of Systems denies any nausea or vomiting has some tearing eyes. no diarrahe or abd pain Physical Exam Vital Signs: Vital Signs: Last Vital Signs Temp 98.0 F 09/03/22 07:30 Pulse 89 09/03/22 07:30 Resp 18 09/03/22 07:30 BP 133/64 09/03/22 07:30 Pulse Ox 95 09/03/22 07:30 O2 Del Method 09/03/22 07:30 O2 Flow Rate 4 08/05/22 13:22 BMI result Body Mass Index 26.6 Const: Other: General: AO X 1, no acute distress Resp: CTA bilateral CVS: S1,S2,RRR GI: +BS, NT, no distention Skin: decub ulcer stable Neuro: motor grossly intact Psych: appropriate affect Objective Data Active Medications Acetaminophen (Acetaminophen 325 Mg Tablet) 650 mg PO Q6H PRN PRN Reason: Pain, Mild (Pain Scale 1-3) Last Admin: 09/02/22 20:24 Dose: 650 mg Documented By: NARCISO Amiodarone HCl (Amiodarone Hcl 200 Mg Tablet) 200 mg PO DAILY [facility] Last Admin: 09/03/22 08:10 Dose: 200 mg Documented By: ALYSHA Apixaban (Apixaban 5 Mg Tablet) 5 mg PO BID [facility] Last Admin: 09/03/22 08:10 Dose: 5 mg Documented By: ALYSHA Artificial Tears (Artificial Tears 15 Ml Drops) 1 drop EYE-BOTH Q4H PRN PRN Reason: tearin Last Admin: 09/02/22 20:26 Dose: 1 drop Documented By: NARCISO Dextrose (Dextrose 50 % 25 Gm/50 Ml Syringe) 25 gm IVPUSH Q15M PRN; Protocol PRN Reason: per Hypoglycemia Standing Ord. Ferrous Sulfate (Ferrous Sulfate 324 Mg Tablet.) 324 mg PO BIDWM [facility] Last Admin: 09/03/22 08:10 Dose: 324 mg Documented By: ALYSHA Finasteride (Finasteride 5 Mg Tablet) 5 mg PO DAILY [facility] Last Admin: 09/03/22 08:10 Dose: 5 mg Documented By: ALYSHA Glucose (Glucose Gel 15 Gm Gel..Gram.) 15 gm PO Q15M PRN; Protocol PRN Reason: per Hypoglycemia Standing Ord. Insulin Glargine (Insulin Glargine,Hum.Rec.Anlog 100 Unit/Ml 10 Ml Vial) 5 unit SUBCUT BEDTIME [facility] Last Admin: 09/02/22 20:26 Dose: 5 unit Documented By: NARCISO Insulin Glargine (Insulin Glargine,Hum.Rec.Anlog 100 Unit/Ml 10 Ml Vial) 25 unit SUBCUT DAILY@0730 [facility] Last Admin: 09/03/22 08:09 Dose: 25 unit Documented By: ALYSHA Insulin Human Lispro (Insulin Lispro 100 Unit/Ml 3 Ml Vial) 0 unit SUBCUT QIDACHS [facility]; Protocol Last Admin: 09/03/22 11:53 Dose: 4 unit Documented By: ALYSHA Lidocaine (Lidocaine 4 % Patch Adh..Patch) 1 patch TRANSDERMA DAILY [facility]; Protocol Last Admin: 09/03/22 08:10 Dose: 1 patch Documented By: ALYSHA Metformin HCl (Metformin Hcl 850 Mg Tablet) 850 mg PO BIDWM [facility] Last Admin: 09/03/22 08:10 Dose: 850 mg Documented By: ALYSHA Metoprolol Succinate (Metoprolol Succinate Er 100 Mg Tab.Er.24h) 100 mg PO DAILY [facility] Last Admin: 09/03/22 08:10 Dose: 100 mg Documented By: ALYSHA Ondansetron HCl (Ondansetron Hcl 4 Mg/2 Ml Vial) 4 mg IVPUSH Q8H PRN PRN Reason: Nausea and Vomiting Last Admin: 07/07/22 01:05 Dose: 4 mg Documented By: MARIANN Ondansetron HCl (Ondansetron Hcl 4 Mg/2 Ml Vial) 4 mg IVPUSH ONCE PRN PRN Reason: Nausea and Vomiting Ondansetron HCl (Ondansetron Hcl 4 Mg/2 Ml Vial) 4 mg IVPUSH ONCE PRN PRN Reason: Nausea and Vomiting Oxycodone HCl (Oxycodone Hcl Immed Release 5 Mg Tablet) 5 mg PO Q6H PRN PRN Reason: Pain, Mild (Pain Scale 1-3) Last Admin: 09/02/22 16:22 Dose: 5 mg Documented By: NADEGE Pharmacy Consult (Consult Rx Perform Med Rec) 1 each MISCELLANE ONCE PRN PRN Reason: Consult order Polyethylene Glycol (Polyethylene Glycol 3350 17 Gm Powd.Pack) 17 gm PO DAILY PRN PRN Reason: constipation Last Admin: 08/06/22 08:19 Dose: 17 gm Documented By: ADRIANA Sodium Chloride (0.9 % Sodium Chloride Flush 3 Ml Syringe) 3 ml IVFLUSH QSHIFT [facility] Last Admin: 09/03/22 07:13 Dose: Not Given Documented By: ALYSHA Non-Admin Reason: No Access Sodium Hypochlorite (Sodium Hypochlorite 0.25% 473 Ml Solution) 1 appl TOPICAL BID [facility] Last Admin: 09/03/22 10:29 Dose: 1 appl Documented By: ALYSHA Tamsulosin HCl (Tamsulosin Hcl 0.4 Mg Capsule) 0.8 mg PO DAILY [facility] Last Admin: 09/03/22 08:10 Dose: 0.8 mg Documented By: ALYSHA Vitamin D (Cholecalciferol (Vitamin D3) 25 Mcg Tablet) 50 mcg PO DAILY [facility] Last Admin: 09/03/22 08:10 Dose: 50 mcg Documented By: ALYSHA Zinc Acetate/Diphenhydramine (Diphenhydramine Hcl 2 % Cream 28 Gm Tube) 1 appl TOPICAL TID PRN; Protocol PRN Reason: itching Labs 08/25/22 07:37 09/01/22 07:22 Labs: Laboratory Results - last 24 hr 09/02/22 09/02/22 09/03/22 16:17 19:52 07:13 POC Glucose 236 H 239 H 87 09/03/22 11:29 POC Glucose 183 H Assessment and Plan (1) SVT (supraventricular tachycardia): Status: Acute Plan 74yo M with DM2, HTN, HLD, chronic venous stasis dermatitis presented with mechanical fall, admitted for hypoxia due to PNA Sacral decubitus ulcer.? Unstageable, necrotic 10cm x10 cm with 4 cm depth frequent turn,air loss? bed ,continue wound care Improving s/p debridements 07/08, 07/17, 1/2 s/p wound vac placement 07/22/22 - removed 07/25 after it became soiled continue wet to dry dressings , being followed by General surgery- d/w surgery - wound vac not helping and would avoid Atrial flutter/fib, rate stable LVEF >70% continue toprol xl and Eliquis Episode of SVT vs atrial tachycardia 07/26 HR improved with IV Lopressor, finish loading dose of amiodarone and started on amiodarone 200 mg by mouth daily on August 07, continue Toprol XL Acute blood loss anemia. Resolved s/p blood loss at site of decub ulcer patient received 2 unit of packed RBC continue ferrous sulfate b.i.d. H/H stable CBC check periodically Traumatic SAH CT brain 06/26 ? New small areas of extra-axial hemorrhage adjacent to the left posterior parietal lobe, bilateral occipital lobes and in the occipital horns of both lateral ventricles, repeat CT 06/28 unchanged seen by neuro - AC was held for two weeks no headache, no dizziness No other complications Acute hypoxic respiratory failure due to PNA. Resolved finished 10d of ABX back on room air Urinary retention failed voiding trial x2 continue tamsulosin and finasteride seen by urology, continue roberts upon discharge - outpatient urology follow up Hyponatremia resolved s/p urea cortisol, TSH wnl Mechanical fall difficulty ambulating; awaiting SNF placement, PT has been working with him I do not think he will walk again generalized weakness 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 but not clinically NPH per Neurology incidental 1.3cm pancreatic lesions may reflect adjacent pancreatic cysts outpt MRI/MRCP DM2? : fs acceptable continue Lantus, SSI adjusted . HTN Stable blood pressures, continue metoprolol losartan and hydralazine discontinued due to soft blood pressures HLD statin b/l eye dryness -? tear ( clear tearin,no erythema or pain or vision change) added tear drops VTE ppx: SCDs,? eliquis Full code ongoin? 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 Time Spent With Patient Time: Total time managing care of this patient today ____ minutes. Quality Stroke Does the patient have a stroke diagnosis?: No VTE Prior VTE?: No VTE Risk Level:: Medical - moderate - high VTE Device Contraindication: Treatment Not Indicated VTE Drug Contraindication: N/A - Med Ordered
[2022-09-03 15:47] VITALS: BP 121/60; PULSE 88; RESP 18; TEMP 37.1; O2SAT 96
[2022-09-03 16:36] LABS: Glucose, Whole Blood 181 mg/dL (60-115)
[2022-09-03 19:59] VITALS: BP 119/58; PULSE 87; RESP 18; TEMP 36.9; O2SAT 98
[2022-09-03 20:57] LABS: Glucose, Whole Blood 184 mg/dL (60-115)
[2022-09-03] MEDS: Insulin Glargine,Hum.rec.anlog 100 UNIT/ML 10 ML VIAL SUBCUT (21:32)
[2022-09-04] VITALS (7 sets, daily range): BP systolic 119–149; BP diastolic 58–77; PULSE 82–91; RESP 16–18; TEMP 36.3–36.9; O2SAT 86–97
[2022-09-04 07:26] LABS: Glucose, Whole Blood 100 mg/dL (60-115)
[2022-09-04 07:44] LABS: Glucose, Whole Blood 103 mg/dL (60-115)
[2022-09-04] MEDS: Insulin Glargine,Hum.rec.anlog 100 UNIT/ML 10 ML VIAL 25 UNIT SUBCUT (08:04)
[2022-09-04] MEDS: Ferrous Sulfate 324 MG TABLET.DR PO ×2 (08:04→16:32)
[2022-09-04] MEDS: Cholecalciferol (Vitamin D3) 25 MCG TABLET 50 MCG PO (08:04)
[2022-09-04] MEDS: Lidocaine 4 % Patch ADH..PATCH 1 PATCH TRANSDERMA (08:05)
[2022-09-04] MEDS: Tamsulosin HCL 0.4 MG CAPSULE 0.8 MG PO (08:05)
[2022-09-04] MEDS: metFORMIN HCl 850 MG TABLET PO ×2 (08:05→16:32)
[2022-09-04] MEDS: Apixaban 5 MG TABLET PO ×2 (08:05→21:06)
[2022-09-04] MEDS: Finasteride 5 MG TABLET PO (08:05)
[2022-09-04] MEDS: Metoprolol Succinate ER 100 MG TAB.ER.24H PO (08:05)
[2022-09-04] MEDS: Amiodarone HCL 200 MG TABLET PO (08:05)
[2022-09-04 08:58] LABS: Hemoglobin 10.7 g/dl (14.0-18.0); Mean Corpuscular HGB Conc 31.5 g/dl (31.0-36.0); Mean Corpuscular Hemoglobin 24.9 pg (27.0-33.0); Mean Corpuscular Volume 79.3 fL (80.0-98.0); Mean Platelet Volume 8.1 fL (9.4-12.4); Platelet Count 269 X10*3/uL (160-400); Red Blood Count 4.29 X10*6/uL (4.60-5.80); Red Cell Distribution Width 15.7 % (11.0-16.0); White Blood Count 8.5 X10*3/uL (4.8-10.8)
[2022-09-04 09:12] LABS: Anion Gap 15 (12-20); Blood Urea Nitrogen 11 mg/dL (9-16); Calcium 8.4 mg/dL (8.4-10.2); Carbon Dioxide 26 mmol/L (22-29); Chloride 98 mmol/L (96-108); Estimated Glomerular Filt Rate > 60; Glucose Random 150 mg/dL (60-115); Potassium 3.7 mmol/L (3.3-5.1); Sodium 135 mmol/L (135-145)
--- NOTE | 2022-09-04 10:38 | P.PNIM_ITS ---
Subjective Subjective Date of Service: 09/04/22 Interval History: awaiting placement, no new issues. Physical Exam Vital Signs: Vital Signs: Last Vital Signs Temp 97.4 F 09/04/22 07:46 Pulse 86 09/04/22 07:46 Resp 18 09/04/22 07:46 BP 122/67 09/04/22 07:46 Pulse Ox 95 09/04/22 07:46 O2 Del Method 09/04/22 07:46 O2 Flow Rate 97 09/04/22 07:38 BMI result Body Mass Index 26.6 Const: Other: General: AO X 1, no acute distress Resp: CTA bilateral CVS: S1,S2,RRR GI: +BS, NT, no distention Skin: decub ulcer stable Neuro: motor grossly intact Psych: appropriate affect Objective Data Active Medications Acetaminophen (Acetaminophen 325 Mg Tablet) 650 mg PO Q6H PRN PRN Reason: Pain, Mild (Pain Scale 1-3) Last Admin: 09/02/22 20:24 Dose: 650 mg Documented By: NARCISO Amiodarone HCl (Amiodarone Hcl 200 Mg Tablet) 200 mg PO DAILY [facility] Last Admin: 09/04/22 08:05 Dose: 200 mg Documented By: ALYSHA Apixaban (Apixaban 5 Mg Tablet) 5 mg PO BID [facility] Last Admin: 09/04/22 08:05 Dose: 5 mg Documented By: ALYSHA Artificial Tears (Artificial Tears 15 Ml Drops) 1 drop EYE-BOTH Q4H PRN PRN Reason: tearin Last Admin: 09/02/22 20:26 Dose: 1 drop Documented By: NARCISO Dextrose (Dextrose 50 % 25 Gm/50 Ml Syringe) 25 gm IVPUSH Q15M PRN; Protocol PRN Reason: per Hypoglycemia Standing Ord. Ferrous Sulfate (Ferrous Sulfate 324 Mg Tablet.) 324 mg PO BIDWM [facility] Last Admin: 09/04/22 08:04 Dose: 324 mg Documented By: ALYSHA Finasteride (Finasteride 5 Mg Tablet) 5 mg PO DAILY [facility] Last Admin: 09/04/22 08:05 Dose: 5 mg Documented By: ALYSHA Glucose (Glucose Gel 15 Gm Gel..Gram.) 15 gm PO Q15M PRN; Protocol PRN Reason: per Hypoglycemia Standing Ord. Insulin Glargine (Insulin Glargine,Hum.Rec.Anlog 100 Unit/Ml 10 Ml Vial) 5 unit SUBCUT BEDTIME [facility] Last Admin: 09/03/22 21:32 Dose: 5 unit Documented By: GIULIANO Insulin Glargine (Insulin Glargine,Hum.Rec.Anlog 100 Unit/Ml 10 Ml Vial) 25 unit SUBCUT DAILY@0730 [facility] Last Admin: 09/04/22 08:04 Dose: 25 unit Documented By: ALYSHA Insulin Human Lispro (Insulin Lispro 100 Unit/Ml 3 Ml Vial) 0 unit SUBCUT QIDACHS [facility]; Protocol Last Admin: 09/04/22 07:30 Dose: Not Given Documented By: ALYSHA Non-Admin Reason: No Insulin Coverage Lidocaine (Lidocaine 4 % Patch Adh..Patch) 1 patch TRANSDERMA DAILY [facility]; Protocol Last Admin: 09/04/22 08:05 Dose: 1 patch Documented By: ALYSHA Metformin HCl (Metformin Hcl 850 Mg Tablet) 850 mg PO BIDWM [facility] Last Admin: 09/04/22 08:05 Dose: 850 mg Documented By: ALYSHA Metoprolol Succinate (Metoprolol Succinate Er 100 Mg Tab.Er.24h) 100 mg PO DAILY [facility] Last Admin: 09/04/22 08:05 Dose: 100 mg Documented By: ALYSHA Ondansetron HCl (Ondansetron Hcl 4 Mg/2 Ml Vial) 4 mg IVPUSH Q8H PRN PRN Reason: Nausea and Vomiting Last Admin: 07/07/22 01:05 Dose: 4 mg Documented By: MARIANN Ondansetron HCl (Ondansetron Hcl 4 Mg/2 Ml Vial) 4 mg IVPUSH ONCE PRN PRN Reason: Nausea and Vomiting Ondansetron HCl (Ondansetron Hcl 4 Mg/2 Ml Vial) 4 mg IVPUSH ONCE PRN PRN Reason: Nausea and Vomiting Oxycodone HCl (Oxycodone Hcl Immed Release 5 Mg Tablet) 5 mg PO Q6H PRN PRN Reason: Pain, Mild (Pain Scale 1-3) Last Admin: 09/02/22 16:22 Dose: 5 mg Documented By: NADEGE Pharmacy Consult (Consult Rx Perform Med Rec) 1 each MISCELLANE ONCE PRN PRN Reason: Consult order Polyethylene Glycol (Polyethylene Glycol 3350 17 Gm Powd.Pack) 17 gm PO DAILY PRN PRN Reason: constipation Last Admin: 08/06/22 08:19 Dose: 17 gm Documented By: ADRIANA Sodium Chloride (0.9 % Sodium Chloride Flush 3 Ml Syringe) 3 ml IVFLUSH QSHIFT [facility] Last Admin: 09/04/22 07:31 Dose: Not Given Documented By: ALYSHA Non-Admin Reason: No Access Sodium Hypochlorite (Sodium Hypochlorite 0.25% 473 Ml Solution) 1 appl TOPICAL BID [facility] Last Admin: 09/03/22 21:33 Dose: 1 appl Documented By: [place] Tamsulosin HCl (Tamsulosin Hcl 0.4 Mg Capsule) 0.8 mg PO DAILY [facility] Last Admin: 09/04/22 08:05 Dose: 0.8 mg Documented By: ALYSHA Vitamin D (Cholecalciferol (Vitamin D3) 25 Mcg Tablet) 50 mcg PO DAILY [facility] Last Admin: 09/04/22 08:04 Dose: 50 mcg Documented By: ALYSHA Zinc Acetate/Diphenhydramine (Diphenhydramine Hcl 2 % Cream 28 Gm Tube) 1 appl TOPICAL TID PRN; Protocol PRN Reason: itching Labs 09/04/22 08:33 09/04/22 08:33 Labs: Laboratory Results - last 24 hr 09/03/22 09/03/22 09/03/22 11:29 16:32 20:53 MCV MCH MCHC RDW Plt Count MPV Absolute Nucleated RBC Nucleated RBC % (auto) Anion Gap Estim Creat Clear Calc Estimated GFR POC Glucose 183 H 181 H 184 H Random Glucose Calcium 09/04/22 09/04/22 09/04/22 07:03 07:37 08:33 MCV 79.3 L MCH 24.9 L MCHC 31.5 RDW 15.7 Plt Count 269 MPV 8.1 L Absolute Nucleated RBC 0.000 Nucleated RBC % (auto) 0.0 Anion Gap Estim Creat Clear Calc Estimated GFR POC Glucose 100 103 Random Glucose Calcium 09/04/22 08:33 MCV MCH MCHC RDW Plt Count MPV Absolute Nucleated RBC Nucleated RBC % (auto) Anion Gap 15 Estim Creat Clear Calc 113.0 Estimated GFR > 60 POC Glucose Random Glucose 150 H Calcium 8.4 Assessment and Plan (1) SVT (supraventricular tachycardia): Status: Acute Plan 74yo M with DM2, HTN, HLD, chronic venous stasis dermatitis presented with mechanical fall, admitted for hypoxia due to PNA Sacral decubitus ulcer.? Unstageable, necrotic 10cm x10 cm with 4 cm depth frequent turn,air loss? bed ,continue wound care Improving s/p debridements 07/08, 07/17, 1/ s/p wound vac placement 07/22/22 - removed 07/25 after it became soiled continue wet to dry dressings , being followed by General surgery- d/w surgery - wound vac not helping and would avoid Atrial flutter/fib, rate stable LVEF >70% continue toprol xl and Eliquis Episode of SVT vs atrial tachycardia 07/26 HR improved with IV Lopressor, finish loading dose of amiodarone and started on amiodarone 200 mg by mouth daily on August 07, continue Toprol XL Acute blood loss anemia. Resolved s/p blood loss at site of decub ulcer patient received 2 unit of packed RBC continue ferrous sulfate b.i.d. H/H stable CBC check periodically Traumatic SAH CT brain 06/26 ? New small areas of extra-axial hemorrhage adjacent to the left posterior parietal lobe, bilateral occipital lobes and in the occipital horns of both lateral ventricles, repeat CT 06/28 unchanged seen by neuro - AC was held for two weeks no headache, no dizziness No other complications Acute hypoxic respiratory failure due to PNA. Resolved finished 10d of ABX back on room air Urinary retention failed voiding trial x2 continue tamsulosin and finasteride seen by urology, continue roberts upon discharge - outpatient urology follow up Hyponatremia resolved s/p urea cortisol, TSH wnl Mechanical fall difficulty ambulating; awaiting SNF placement, PT has been working with him I do not think he will walk again generalized weakness 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 but not clinically NPH per Neurology incidental 1.3cm pancreatic lesions may reflect adjacent pancreatic cysts outpt MRI/MRCP DM2? : fs acceptable continue Lantus, SSI adjusted . HTN Stable blood pressures, continue metoprolol losartan and hydralazine discontinued due to soft blood pressures HLD statin b/l eye dryness -? tear ( clear tearin,no erythema or pain or vision change) added tear drops VTE ppx: SCDs,? eliquis Full code ongoin? 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 Time Spent With Patient Time: Total time managing care of this patient today ____ minutes. Quality Stroke Does the patient have a stroke diagnosis?: No VTE Prior VTE?: No VTE Risk Level:: Medical - moderate - high VTE Device Contraindication: Treatment Not Indicated VTE Drug Contraindication: N/A - Med Ordered
[2022-09-04 11:11] LABS: Glucose, Whole Blood 154 mg/dL (60-115)
[2022-09-04] MEDS: Insulin Lispro 100 UNIT/ML 3 ML VIAL SUBCUT ×3 (12:30→21:06)
[2022-09-04 16:05] LABS: Glucose, Whole Blood 172 mg/dL (60-115)
[2022-09-04 20:56] LABS: Glucose, Whole Blood 209 mg/dL (60-115)
[2022-09-04] MEDS: Insulin Glargine,Hum.rec.anlog 100 UNIT/ML 10 ML VIAL SUBCUT (21:06)
[2022-09-05 03:57] VITALS: BP 124/65; PULSE 86; RESP 18; TEMP 36.7; O2SAT 95
[2022-09-05 07:20] VITALS: BP 125/56; PULSE 85; RESP 18; TEMP 36.7; O2SAT 96
[2022-09-05 07:26] LABS: Glucose, Whole Blood 78 mg/dL (60-115)
[2022-09-05] MEDS: Finasteride 5 MG TABLET PO (08:08)
[2022-09-05] MEDS: Metoprolol Succinate ER 100 MG TAB.ER.24H PO (08:08)
[2022-09-05] MEDS: Amiodarone HCL 200 MG TABLET PO (08:08)
[2022-09-05] MEDS: metFORMIN HCl 850 MG TABLET PO ×2 (08:08→17:12)
[2022-09-05] MEDS: Tamsulosin HCL 0.4 MG CAPSULE 0.8 MG PO (08:08)
[2022-09-05] MEDS: Ferrous Sulfate 324 MG TABLET.DR PO ×2 (08:08→17:11)
[2022-09-05] MEDS: Cholecalciferol (Vitamin D3) 25 MCG TABLET 50 MCG PO (08:08)
[2022-09-05] MEDS: Apixaban 5 MG TABLET PO ×2 (08:08→20:50)
[2022-09-05] MEDS: Lidocaine 4 % Patch ADH..PATCH 1 PATCH TRANSDERMA (08:08)
[2022-09-05] MEDS: Insulin Glargine,Hum.rec.anlog 100 UNIT/ML 10 ML VIAL 25 UNIT SUBCUT (08:10)
--- NOTE | 2022-09-05 09:23 | HO.PM.IMPN ---
Subjective Subjective Date of Service: 09/05/22 Interval History: awaiting placement, no new issuesf, doing fine otherwise Review of Systems denies any nausea or vomiting has some tearing eyes. no diarrahe or abd pain Physical Exam Vital Signs: Vital Signs: Last Vital Signs Temp 98.0 F 09/05/22 07:20 Pulse 85 09/05/22 07:20 Resp 18 09/05/22 07:20 BP 125/56 L 09/05/22 07:20 Pulse Ox 96 09/05/22 07:20 O2 Del Method 09/05/22 07:20 O2 Flow Rate 2 09/04/22 12:48 BMI result Body Mass Index 26.6 Const: Other: General: AO X 1, no acute distress Resp: CTA bilateral CVS: S1,S2,RRR GI: +BS, NT, no distention Skin: decub ulcer stable Neuro: motor grossly intact Psych: appropriate affect Objective Data Active Medications Acetaminophen (Acetaminophen 325 Mg Tablet) 650 mg PO Q6H PRN PRN Reason: Pain, Mild (Pain Scale 1-3) Last Admin: 09/02/22 20:24 Dose: 650 mg Documented By: NARCISO Amiodarone HCl (Amiodarone Hcl 200 Mg Tablet) 200 mg PO DAILY [facility] Last Admin: 09/05/22 08:08 Dose: 200 mg Documented By: BARB Apixaban (Apixaban 5 Mg Tablet) 5 mg PO BID [facility] Last Admin: 09/05/22 08:08 Dose: 5 mg Documented By: BARB Artificial Tears (Artificial Tears 15 Ml Drops) 1 drop EYE-BOTH Q4H PRN PRN Reason: tearin Last Admin: 09/02/22 20:26 Dose: 1 drop Documented By: NARCISO Dextrose (Dextrose 50 % 25 Gm/50 Ml Syringe) 25 gm IVPUSH Q15M PRN; Protocol PRN Reason: per Hypoglycemia Standing Ord. Ferrous Sulfate (Ferrous Sulfate 324 Mg Tablet.) 324 mg PO BIDWM [facility] Last Admin: 09/05/22 08:08 Dose: 324 mg Documented By: BARB Finasteride (Finasteride 5 Mg Tablet) 5 mg PO DAILY [facility] Last Admin: 09/05/22 08:08 Dose: 5 mg Documented By: BARB Glucose (Glucose Gel 15 Gm Gel..Gram.) 15 gm PO Q15M PRN; Protocol PRN Reason: per Hypoglycemia Standing Ord. Insulin Glargine (Insulin Glargine,Hum.Rec.Anlog 100 Unit/Ml 10 Ml Vial) 5 unit SUBCUT BEDTIME [facility] Last Admin: 09/04/22 21:06 Dose: 5 unit Documented By: GIULIANO Insulin Glargine (Insulin Glargine,Hum.Rec.Anlog 100 Unit/Ml 10 Ml Vial) 25 unit SUBCUT DAILY@0730 [facility] Last Admin: 09/05/22 08:10 Dose: 25 unit Documented By: BARB Insulin Human Lispro (Insulin Lispro 100 Unit/Ml 3 Ml Vial) 0 unit SUBCUT QIDACHS [facility]; Protocol Last Admin: 09/05/22 08:12 Dose: Not Given Documented By: BARB Non-Admin Reason: glucose out of range Lidocaine (Lidocaine 4 % Patch Adh..Patch) 1 patch TRANSDERMA DAILY [facility]; Protocol Last Admin: 09/05/22 08:08 Dose: 1 patch Documented By: BARB Metformin HCl (Metformin Hcl 850 Mg Tablet) 850 mg PO BIDWM [facility] Last Admin: 09/05/22 08:08 Dose: 850 mg Documented By: BARB Metoprolol Succinate (Metoprolol Succinate Er 100 Mg Tab.Er.24h) 100 mg PO DAILY [facility] Last Admin: 09/05/22 08:08 Dose: 100 mg Documented By: BARB Ondansetron HCl (Ondansetron Hcl 4 Mg/2 Ml Vial) 4 mg IVPUSH Q8H PRN PRN Reason: Nausea and Vomiting Last Admin: 07/07/22 01:05 Dose: 4 mg Documented By: MARIANN Ondansetron HCl (Ondansetron Hcl 4 Mg/2 Ml Vial) 4 mg IVPUSH ONCE PRN PRN Reason: Nausea and Vomiting Ondansetron HCl (Ondansetron Hcl 4 Mg/2 Ml Vial) 4 mg IVPUSH ONCE PRN PRN Reason: Nausea and Vomiting Oxycodone HCl (Oxycodone Hcl Immed Release 5 Mg Tablet) 5 mg PO Q6H PRN PRN Reason: Pain, Mild (Pain Scale 1-3) Last Admin: 09/02/22 16:22 Dose: 5 mg Documented By: NADEGE Pharmacy Consult (Consult Rx Perform Med Rec) 1 each MISCELLANE ONCE PRN PRN Reason: Consult order Polyethylene Glycol (Polyethylene Glycol 3350 17 Gm Powd.Pack) 17 gm PO DAILY PRN PRN Reason: constipation Last Admin: 08/06/22 08:19 Dose: 17 gm Documented By: ADRIANA Sodium Chloride (0.9 % Sodium Chloride Flush 3 Ml Syringe) 3 ml IVFLUSH QSHIFT [facility] Last Admin: 09/05/22 06:30 Dose: Not Given Documented By: ALYSHA Non-Admin Reason: No Access Sodium Hypochlorite (Sodium Hypochlorite 0.25% 473 Ml Solution) 1 appl TOPICAL BID [facility] Last Admin: 09/05/22 08:09 Dose: 1 appl Documented By: BARB Tamsulosin HCl (Tamsulosin Hcl 0.4 Mg Capsule) 0.8 mg PO DAILY [facility] Last Admin: 09/05/22 08:08 Dose: 0.8 mg Documented By: BARB Vitamin D (Cholecalciferol (Vitamin D3) 25 Mcg Tablet) 50 mcg PO DAILY [facility] Last Admin: 09/05/22 08:08 Dose: 50 mcg Documented By: BARB Zinc Acetate/Diphenhydramine (Diphenhydramine Hcl 2 % Cream 28 Gm Tube) 1 appl TOPICAL TID PRN; Protocol PRN Reason: itching Labs 09/04/22 08:33 09/04/22 08:33 Labs: Laboratory Results - last 24 hr 09/04/22 09/04/22 09/04/22 11:04 15:54 19:53 POC Glucose 154 H 172 H 209 H 09/05/22 07:17 POC Glucose 78 Assessment and Plan (1) SVT (supraventricular tachycardia): Status: Acute Plan 74yo M with DM2, HTN, HLD, chronic venous stasis dermatitis presented with mechanical fall, admitted for hypoxia due to PNA Sacral decubitus ulcer.? Unstageable, necrotic 10cm x10 cm with 4 cm depth frequent turn,air loss? bed ,continue wound care Improving s/p debridements 07/08, 07/17, 1/2 s/p wound vac placement 07/22/22 - removed 07/25 after it became soiled continue wet to dry dressings , being followed by General surgery- d/w surgery - wound vac not helping and would avoid Atrial flutter/fib, rate stable LVEF >70% continue toprol xl and Eliquis Episode of SVT vs atrial tachycardia 07/26 HR improved with IV Lopressor, finish loading dose of amiodarone and started on amiodarone 200 mg by mouth daily on August 07, continue Toprol XL Acute blood loss anemia. Resolved s/p blood loss at site of decub ulcer patient received 2 unit of packed RBC continue ferrous sulfate b.i.d. H/H stable CBC check periodically Traumatic SAH CT brain 06/26 ? New small areas of extra-axial hemorrhage adjacent to the left posterior parietal lobe, bilateral occipital lobes and in the occipital horns of both lateral ventricles, repeat CT 06/28 unchanged seen by neuro - AC was held for two weeks no headache, no dizziness No other complications Acute hypoxic respiratory failure due to PNA. Resolved finished 10d of ABX back on room air Urinary retention failed voiding trial x2 continue tamsulosin and finasteride seen by urology, continue roberts upon discharge - outpatient urology follow up Hyponatremia resolved s/p urea cortisol, TSH wnl Mechanical fall difficulty ambulating; awaiting SNF placement, PT has been working with him I do not think he will walk again generalized weakness 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 but not clinically NPH per Neurology incidental 1.3cm pancreatic lesions may reflect adjacent pancreatic cysts outpt MRI/MRCP DM2? : fs acceptable continue Lantus, SSI adjusted . HTN Stable blood pressures, continue metoprolol losartan and hydralazine discontinued due to soft blood pressures HLD statin b/l eye dryness -? tear ( clear tearin,no erythema or pain or vision change) added tear drops VTE ppx: SCDs,? eliquis Full code ongoin? 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 Quality Stroke Does the patient have a stroke diagnosis?: No VTE Prior VTE?: No VTE Risk Level:: Medical - moderate - high VTE Device Contraindication: Treatment Not Indicated VTE Drug Contraindication: N/A - Med Ordered
[2022-09-05 11:17] LABS: Glucose, Whole Blood 135 mg/dL (60-115)
[2022-09-05 15:30] VITALS: BP 109/53; PULSE 64; RESP 18; TEMP 37.3; O2SAT 94
[2022-09-05 16:19] LABS: Glucose, Whole Blood 263 mg/dL (60-115)
[2022-09-05] MEDS: Insulin Lispro 100 UNIT/ML 3 ML VIAL SUBCUT ×2 (17:11→20:50)
[2022-09-05] MEDS: 0.9 % Sodium Chloride Flush 3 ML SYRINGE IVFLUSH (17:11)
[2022-09-05 19:42] VITALS: BP 134/61; PULSE 87; RESP 17; TEMP 36.8; O2SAT 95
[2022-09-05 20:15] LABS: Glucose, Whole Blood 260 mg/dL (60-115)
[2022-09-05] MEDS: Insulin Glargine,Hum.rec.anlog 100 UNIT/ML 10 ML VIAL SUBCUT (20:50)
[2022-09-06 03:48] VITALS: BP 107/52; PULSE 73; RESP 18; TEMP 36.5; O2SAT 97
[2022-09-06 08:00] VITALS: BP 125/59; PULSE 81; RESP 18; TEMP 36.7; O2SAT 96
[2022-09-06 08:04] LABS: Glucose, Whole Blood 90 mg/dL (60-115)
[2022-09-06] MEDS: Ferrous Sulfate 324 MG TABLET.DR PO ×2 (08:12→17:13)
[2022-09-06] MEDS: Metoprolol Succinate ER 100 MG TAB.ER.24H PO (08:12)
[2022-09-06] MEDS: Insulin Glargine,Hum.rec.anlog 100 UNIT/ML 10 ML VIAL 25 UNIT SUBCUT (08:12)
[2022-09-06] MEDS: Amiodarone HCL 200 MG TABLET PO (08:12)
[2022-09-06] MEDS: Tamsulosin HCL 0.4 MG CAPSULE 0.8 MG PO (08:12)
[2022-09-06] MEDS: Finasteride 5 MG TABLET PO (08:13)
[2022-09-06] MEDS: Cholecalciferol (Vitamin D3) 25 MCG TABLET 50 MCG PO (08:13)
[2022-09-06] MEDS: Apixaban 5 MG TABLET PO ×2 (08:13→20:23)
[2022-09-06] MEDS: metFORMIN HCl 850 MG TABLET PO ×2 (08:13→17:13)
[2022-09-06] MEDS: Lidocaine 4 % Patch ADH..PATCH 1 PATCH TRANSDERMA (08:14)
--- NOTE | 2022-09-06 09:06 | P.PNIM_ITS ---
Subjective Subjective Date of Service: 09/06/22 Interval History: awaiting placement, no new issuesf, doing fine otherwise As nonproductive cough Review of Systems denies any nausea or vomiting has some tearing eyes. no diarrahe or abd pain Physical Exam Vital Signs: Vital Signs: Last Vital Signs Temp 98.0 F 09/06/22 08:00 Pulse 81 09/06/22 08:00 Resp 18 09/06/22 08:00 BP 125/59 L 09/06/22 08:00 Pulse Ox 96 09/06/22 08:00 O2 Del Method 09/06/22 08:00 O2 Flow Rate 2 09/04/22 12:48 BMI result Body Mass Index 26.6 Const: Other: General: AO X 1, no acute distress Resp: CTA bilateral CVS: S1,S2,RRR GI: +BS, NT, no distention Skin: decub ulcer stable Neuro: motor grossly intact Psych: appropriate affect Objective Data Active Medications Acetaminophen (Acetaminophen 325 Mg Tablet) 650 mg PO Q6H PRN PRN Reason: Pain, Mild (Pain Scale 1-3) Last Admin: 09/02/22 20:24 Dose: 650 mg Documented By: NARCISO Amiodarone HCl (Amiodarone Hcl 200 Mg Tablet) 200 mg PO DAILY [facility] Last Admin: 09/06/22 08:12 Dose: 200 mg Documented By: BARB Apixaban (Apixaban 5 Mg Tablet) 5 mg PO BID [facility] Last Admin: 09/06/22 08:13 Dose: 5 mg Documented By: BARB Artificial Tears (Artificial Tears 15 Ml Drops) 1 drop EYE-BOTH Q4H PRN PRN Reason: tearin Last Admin: 09/02/22 20:26 Dose: 1 drop Documented By: NARCISO Benzocaine (Throat Lozenge, Medicated Lozenge) 1 lozenge MUCOUS MEM Q2H PRN PRN Reason: Sore Throat Dextrose (Dextrose 50 % 25 Gm/50 Ml Syringe) 25 gm IVPUSH Q15M PRN; Protocol PRN Reason: per Hypoglycemia Standing Ord. Ferrous Sulfate (Ferrous Sulfate 324 Mg Tablet.) 324 mg PO BIDWM [facility] Last Admin: 09/06/22 08:12 Dose: 324 mg Documented By: BARB Finasteride (Finasteride 5 Mg Tablet) 5 mg PO DAILY [facility] Last Admin: 09/06/22 08:13 Dose: 5 mg Documented By: BARB Glucose (Glucose Gel 15 Gm Gel..Gram.) 15 gm PO Q15M PRN; Protocol PRN Reason: per Hypoglycemia Standing Ord. Guaifenesin (Guaifenesin 100 Mg/5 Ml Liquid) 5 ml PO Q6H PRN PRN Reason: Cough Insulin Glargine (Insulin Glargine,Hum.Rec.Anlog 100 Unit/Ml 10 Ml Vial) 5 unit SUBCUT BEDTIME [facility] Last Admin: 09/05/22 20:50 Dose: 5 unit Documented By: GIULIANO Insulin Glargine (Insulin Glargine,Hum.Rec.Anlog 100 Unit/Ml 10 Ml Vial) 25 unit SUBCUT DAILY@0730 [facility] Last Admin: 09/06/22 08:12 Dose: 25 unit Documented By: BARB Insulin Human Lispro (Insulin Lispro 100 Unit/Ml 3 Ml Vial) 0 unit SUBCUT QIDACHS [facility]; Protocol Last Admin: 09/06/22 08:14 Dose: Not Given Documented By: BARB Non-Admin Reason: No Insulin Coverage Lidocaine (Lidocaine 4 % Patch Adh..Patch) 1 patch TRANSDERMA DAILY [facility]; Protocol Last Admin: 09/06/22 08:14 Dose: 1 patch Documented By: BARB Metformin HCl (Metformin Hcl 850 Mg Tablet) 850 mg PO BIDWM [facility] Last Admin: 09/06/22 08:13 Dose: 850 mg Documented By: BARB Metoprolol Succinate (Metoprolol Succinate Er 100 Mg Tab.Er.24h) 100 mg PO DAILY [facility] Last Admin: 09/06/22 08:12 Dose: 100 mg Documented By: BARB Ondansetron HCl (Ondansetron Hcl 4 Mg/2 Ml Vial) 4 mg IVPUSH Q8H PRN PRN Reason: Nausea and Vomiting Last Admin: 07/07/22 01:05 Dose: 4 mg Documented By: MARIANN Ondansetron HCl (Ondansetron Hcl 4 Mg/2 Ml Vial) 4 mg IVPUSH ONCE PRN PRN Reason: Nausea and Vomiting Ondansetron HCl (Ondansetron Hcl 4 Mg/2 Ml Vial) 4 mg IVPUSH ONCE PRN PRN Reason: Nausea and Vomiting Oxycodone HCl (Oxycodone Hcl Immed Release 5 Mg Tablet) 5 mg PO Q6H PRN PRN Reason: Pain, Mild (Pain Scale 1-3) Last Admin: 09/02/22 16:22 Dose: 5 mg Documented By: NADEGE Pharmacy Consult (Consult Rx Perform Med Rec) 1 each MISCELLANE ONCE PRN PRN Reason: Consult order Polyethylene Glycol (Polyethylene Glycol 3350 17 Gm Powd.Pack) 17 gm PO DAILY PRN PRN Reason: constipation Last Admin: 08/06/22 08:19 Dose: 17 gm Documented By: ADRIANA Sodium Chloride (0.9 % Sodium Chloride Flush 3 Ml Syringe) 3 ml IVFLUSH QSHIFT [facility] Last Admin: 09/06/22 08:26 Dose: Not Given Documented By: BARB Non-Admin Reason: No Access Sodium Hypochlorite (Sodium Hypochlorite 0.25% 473 Ml Solution) 1 appl TOPICAL BID [facility] Last Admin: 09/06/22 08:27 Dose: Not Given Documented By: BARB Non-Admin Reason: last administered at 0600 Tamsulosin HCl (Tamsulosin Hcl 0.4 Mg Capsule) 0.8 mg PO DAILY [facility] Last Admin: 09/06/22 08:12 Dose: 0.8 mg Documented By: BARB Vitamin D (Cholecalciferol (Vitamin D3) 25 Mcg Tablet) 50 mcg PO DAILY [facility] Last Admin: 09/06/22 08:13 Dose: 50 mcg Documented By: BARB Zinc Acetate/Diphenhydramine (Diphenhydramine Hcl 2 % Cream 28 Gm Tube) 1 appl TOPICAL TID PRN; Protocol PRN Reason: itching Labs 09/04/22 08:33 09/04/22 08:33 Labs: Laboratory Results - last 24 hr 09/05/22 09/05/22 09/05/22 11:13 16:12 20:11 POC Glucose 135 H 263 H 260 H 09/06/22 07:59 POC Glucose 90 Assessment and Plan (1) SVT (supraventricular tachycardia): Status: Acute Plan 74yo M with DM2, HTN, HLD, chronic venous stasis dermatitis presented with mechanical fall, admitted for hypoxia due to PNA cough--check covid, cxr Sacral decubitus ulcer.? Unstageable, necrotic 10cm x10 cm with 4 cm depth frequent turn,air loss? bed ,continue wound care Improving s/p debridements 07/08, 07/17, 08/05 s/p wound vac placement 07/22/22 - removed 07/25 after it became soiled continue wet to dry dressings , being followed by General surgery- d/w surgery - wound vac not helping and would avoid Atrial flutter/fib, rate stable LVEF >70% continue toprol xl and Eliquis Episode of SVT vs atrial tachycardia 07/26 HR improved with IV Lopressor, finish loading dose of amiodarone and started on amiodarone 200 mg by mouth daily on August 07, continue Toprol XL Acute blood loss anemia. Resolved s/p blood loss at site of decub ulcer patient received 2 unit of packed RBC continue ferrous sulfate b.i.d. H/H stable CBC check periodically Traumatic SAH CT brain 06/26 ? New small areas of extra-axial hemorrhage adjacent to the left posterior parietal lobe, bilateral occipital lobes and in the occipital horns of both lateral ventricles, repeat CT 06/28 unchanged seen by neuro - AC was held for two weeks no headache, no dizziness No other complications Acute hypoxic respiratory failure due to PNA. Resolved finished 10d of ABX back on room air Urinary retention failed voiding trial x2 continue tamsulosin and finasteride seen by urology, continue roberts upon discharge - outpatient urology follow up Hyponatremia resolved s/p urea cortisol, TSH wnl Mechanical fall difficulty ambulating; awaiting SNF placement, PT has been working with him I do not think he will walk again generalized weakness 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 but not clinically NPH per Neurology incidental 1.3cm pancreatic lesions may reflect adjacent pancreatic cysts outpt MRI/MRCP DM2? : fs acceptable continue Lantus, SSI adjusted . HTN Stable blood pressures, continue metoprolol losartan and hydralazine discontinued due to soft blood pressures HLD statin b/l eye dryness -? tear ( clear tearin,no erythema or pain or vision change) added tear drops VTE ppx: SCDs,? eliquis Full code ongoin? 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 Quality Stroke Does the patient have a stroke diagnosis?: No VTE Prior VTE?: No VTE Risk Level:: Medical - moderate - high VTE Device Contraindication: Treatment Not Indicated VTE Drug Contraindication: N/A - Med Ordered
[2022-09-06 11:09] LABS: Glucose, Whole Blood 139 mg/dL (60-115)
[2022-09-06 11:40] LABS: COVID-19 Test Negative (Negative); IDNOW Serial# 16C4AD1C
--- NOTE | 2022-09-06 13:52 | MHC.CLN ---
F/U PO INTAKE VARIABLE, WITH MOST MEALS 75-100%. DIET RX: DIABETIC 2200 KCALS-APPROPRIATE. GLUCERNA TID PROVIDES ADDITIONAL 710 KCALS, 30 G PROTEIN. SKIN: REDNESS TO RIGHT HEEL AND BUTTOCKS. STAGE IV TO COCCYX. CONTINUE TO MONITOR PO INTAKE AND SUPPLEMENT ACCEPTANCE. RD TO CONTINUE TO FOLLOW WEEKLY.
[2022-09-06 15:28] VITALS: BP 110/70; PULSE 79; RESP 17; TEMP 37.3; O2SAT 97
--- NOTE | 2022-09-06 16:24 | MHC.CM.PN ---
[facility] REVIEWED, PT STILL AWAITING LTC BED, SNF REFERRAL UPDATED AND BROADCASTED, [facility] DID REQUEST UPDATES [facility] REQUESTED THEY TAKE ANOTHER LOOK AT PT, CM WILL CONT TO FOLLOW FOR PLACEMENT.
[2022-09-06 16:30] LABS: Glucose, Whole Blood 120 mg/dL (60-115)
[2022-09-06 19:54] VITALS: BP 137/94; PULSE 85; RESP 16; TEMP 36.8; O2SAT 99
[2022-09-06 19:59] LABS: Glucose, Whole Blood 164 mg/dL (60-115)
[2022-09-06] MEDS: Insulin Lispro 100 UNIT/ML 3 ML VIAL SUBCUT (20:23)
[2022-09-06] MEDS: Insulin Glargine,Hum.rec.anlog 100 UNIT/ML 10 ML VIAL SUBCUT (20:23)
[2022-09-07 03:26] VITALS: BP 115/59; PULSE 82; RESP 16; TEMP 36.6; O2SAT 97
[2022-09-07 07:41] LABS: Glucose, Whole Blood 46 mg/dL (60-115)
[2022-09-07 08:00] VITALS: BP 141/65; PULSE 85; RESP 16; TEMP 36.3; O2SAT 100
[2022-09-07 08:01] LABS: Glucose, Whole Blood 60 mg/dL (60-115)
[2022-09-07] MEDS: Lidocaine 4 % Patch ADH..PATCH 1 PATCH TRANSDERMA (08:09)
[2022-09-07] MEDS: Finasteride 5 MG TABLET PO (08:09)
[2022-09-07] MEDS: metFORMIN HCl 850 MG TABLET PO ×2 (08:10→17:58)
[2022-09-07] MEDS: Metoprolol Succinate ER 100 MG TAB.ER.24H PO (08:10)
[2022-09-07] MEDS: Ferrous Sulfate 324 MG TABLET.DR PO ×2 (08:10→17:58)
[2022-09-07] MEDS: Apixaban 5 MG TABLET PO ×2 (08:10→20:50)
[2022-09-07] MEDS: Amiodarone HCL 200 MG TABLET PO (08:10)
[2022-09-07] MEDS: Cholecalciferol (Vitamin D3) 25 MCG TABLET 50 MCG PO (08:10)
--- NOTE | 2022-09-07 08:54 | P.PNIM_ITS ---
Subjective Subjective Date of Service: 09/07/22 Interval History: awaiting placement, no new issuesf, doing fine otherwise As nonproductive cough Review of Systems denies any nausea or vomiting has some tearing eyes. no diarrahe or abd pain Physical Exam Vital Signs: Vital Signs: Last Vital Signs Temp 97.3 F 09/07/22 08:00 Pulse 85 09/07/22 08:00 Resp 16 09/07/22 08:00 BP 141/65 H 09/07/22 08:00 Pulse Ox 100 09/07/22 08:00 O2 Del Method 09/07/22 08:00 O2 Flow Rate 2 09/04/22 12:48 BMI result Body Mass Index 26.6 Const: Other: General: AO X 1, no acute distress Resp: CTA bilateral CVS: S1,S2,RRR GI: +BS, NT, no distention Skin: decub ulcer stable Neuro: motor grossly intact Psych: appropriate affect Objective Data Active Medications Acetaminophen (Acetaminophen 325 Mg Tablet) 650 mg PO Q6H PRN PRN Reason: Pain, Mild (Pain Scale 1-3) Last Admin: 09/02/22 20:24 Dose: 650 mg Documented By: NARCISO Amiodarone HCl (Amiodarone Hcl 200 Mg Tablet) 200 mg PO DAILY [facility] Last Admin: 09/07/22 08:10 Dose: 200 mg Documented By: JETT Apixaban (Apixaban 5 Mg Tablet) 5 mg PO BID [facility] Last Admin: 09/07/22 08:10 Dose: 5 mg Documented By: JETT Artificial Tears (Artificial Tears 15 Ml Drops) 1 drop EYE-BOTH Q4H PRN PRN Reason: tearin Last Admin: 09/02/22 20:26 Dose: 1 drop Documented By: NARCISO Benzocaine (Throat Lozenge, Medicated Lozenge) 1 lozenge MUCOUS MEM Q2H PRN PRN Reason: Sore Throat Dextrose (Dextrose 50 % 25 Gm/50 Ml Syringe) 25 gm IVPUSH Q15M PRN; Protocol PRN Reason: per Hypoglycemia Standing Ord. Ferrous Sulfate (Ferrous Sulfate 324 Mg Tablet.) 324 mg PO BIDWM [facility] Last Admin: 09/07/22 08:10 Dose: 324 mg Documented By: JETT Finasteride (Finasteride 5 Mg Tablet) 5 mg PO DAILY [facility] Last Admin: 09/07/22 08:09 Dose: 5 mg Documented By: JETT Glucose (Glucose Gel 15 Gm Gel..Gram.) 15 gm PO Q15M PRN; Protocol PRN Reason: per Hypoglycemia Standing Ord. Guaifenesin (Guaifenesin 100 Mg/5 Ml Liquid) 5 ml PO Q6H PRN PRN Reason: Cough Insulin Glargine (Insulin Glargine,Hum.Rec.Anlog 100 Unit/Ml 10 Ml Vial) 5 unit SUBCUT BEDTIME [facility] Last Admin: 09/06/22 20:23 Dose: 5 unit Documented By: ODRISCinthya Insulin Glargine (Insulin Glargine,Hum.Rec.Anlog 100 Unit/Ml 10 Ml Vial) 25 unit SUBCUT DAILY@0730 [facility] Last Admin: 09/07/22 08:24 Dose: Not Given Documented By: JETT Non-Admin Reason: No Insulin Coverage Insulin Human Lispro (Insulin Lispro 100 Unit/Ml 3 Ml Vial) 0 unit SUBCUT QIDACHS [facility]; Protocol Last Admin: 09/07/22 07:50 Dose: Not Given Documented By: JETT Non-Admin Reason: No Insulin Coverage Lidocaine (Lidocaine 4 % Patch Adh..Patch) 1 patch TRANSDERMA DAILY [facility]; Protocol Last Admin: 09/07/22 08:09 Dose: 1 patch Documented By: JETT Metformin HCl (Metformin Hcl 850 Mg Tablet) 850 mg PO BIDWM [facility] Last Admin: 09/07/22 08:10 Dose: 850 mg Documented By: JETT Metoprolol Succinate (Metoprolol Succinate Er 100 Mg Tab.Er.24h) 100 mg PO DAILY [facility] Last Admin: 09/07/22 08:10 Dose: 100 mg Documented By: JETT Ondansetron HCl (Ondansetron Hcl 4 Mg/2 Ml Vial) 4 mg IVPUSH Q8H PRN PRN Reason: Nausea and Vomiting Last Admin: 07/07/22 01:05 Dose: 4 mg Documented By: MARIANN Ondansetron HCl (Ondansetron Hcl 4 Mg/2 Ml Vial) 4 mg IVPUSH ONCE PRN PRN Reason: Nausea and Vomiting Ondansetron HCl (Ondansetron Hcl 4 Mg/2 Ml Vial) 4 mg IVPUSH ONCE PRN PRN Reason: Nausea and Vomiting Pharmacy Consult (Consult Rx Perform Med Rec) 1 each MISCELLANE ONCE PRN PRN Reason: Consult order Polyethylene Glycol (Polyethylene Glycol 3350 17 Gm Powd.Pack) 17 gm PO DAILY PRN PRN Reason: constipation Last Admin: 08/06/22 08:19 Dose: 17 gm Documented By: ADRIANA Sodium Chloride (0.9 % Sodium Chloride Flush 3 Ml Syringe) 3 ml IVFLUSH QSHIFT [facility] Last Admin: 09/07/22 08:10 Dose: Not Given Documented By: JETT Non-Admin Reason: No Access Sodium Hypochlorite (Sodium Hypochlorite 0.25% 473 Ml Solution) 1 appl TOPICAL BID [facility] Last Admin: 09/06/22 17:55 Dose: 1 appl Documented By: BARB Tamsulosin HCl (Tamsulosin Hcl 0.4 Mg Capsule) 0.8 mg PO DAILY [facility] Last Admin: 09/06/22 08:12 Dose: 0.8 mg Documented By: BARB Vitamin D (Cholecalciferol (Vitamin D3) 25 Mcg Tablet) 50 mcg PO DAILY [facility] Last Admin: 09/07/22 08:10 Dose: 50 mcg Documented By: JETT Zinc Acetate/Diphenhydramine (Diphenhydramine Hcl 2 % Cream 28 Gm Tube) 1 appl TOPICAL TID PRN; Protocol PRN Reason: itching Labs 09/04/22 08:33 09/04/22 08:33 Labs: Laboratory Results - last 24 hr 09/06/22 09/06/22 09/06/22 11:00 11:00 16:26 POC Glucose 139 H 120 H COVID-19 ([facility]) Negative COVID-19 Clin Com See Note 09/06/22 09/07/22 09/07/22 19:42 07:35 07:57 POC Glucose 164 H 46 L* 60 COVID-19 ([facility]) COVID-19 Clin Com Assessment and Plan (1) SVT (supraventricular tachycardia): Status: Acute Plan 74yo M with DM2, HTN, HLD, chronic venous stasis dermatitis presented with mechanical fall, admitted for hypoxia due to PNA cough--check covid, cxr Sacral decubitus ulcer.? Unstageable, necrotic 10cm x10 cm with 4 cm depth frequent turn,air loss? bed ,continue wound care Improving s/p debridements 07/08, 07/17, 1/2 s/p wound vac placement 07/22/22 - removed 07/25 after it became soiled continue wet to dry dressings , being followed by General surgery- d/w surgery - wound vac not helping and would avoid Atrial flutter/fib, rate stable LVEF >70% continue toprol xl and Eliquis Episode of SVT vs atrial tachycardia 07/26 HR improved with IV Lopressor, finish loading dose of amiodarone and started on amiodarone 200 mg by mouth daily on August 07, continue Toprol XL Acute blood loss anemia. Resolved s/p blood loss at site of decub ulcer patient received 2 unit of packed RBC continue ferrous sulfate b.i.d. H/H stable CBC check periodically Traumatic SAH CT brain 06/26 ? New small areas of extra-axial hemorrhage adjacent to the left posterior parietal lobe, bilateral occipital lobes and in the occipital horns of both lateral ventricles, repeat CT 06/28 unchanged seen by neuro - AC was held for two weeks no headache, no dizziness No other complications Acute hypoxic respiratory failure due to PNA. Resolved finished 10d of ABX back on room air Urinary retention failed voiding trial x2 continue tamsulosin and finasteride seen by urology, continue roberts upon discharge - outpatient urology follow up Hyponatremia resolved s/p urea cortisol, TSH wnl Mechanical fall difficulty ambulating; awaiting SNF placement, PT has been working with him I do not think he will walk again generalized weakness 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 but not clinically NPH per Neurology incidental 1.3cm pancreatic lesions may reflect adjacent pancreatic cysts outpt MRI/MRCP DM2? : fs acceptable continue Lantus, SSI adjusted . HTN Stable blood pressures, continue metoprolol losartan and hydralazine discontinued due to soft blood pressures HLD statin b/l eye dryness -? tear ( clear tearin,no erythema or pain or vision change) added tear drops VTE ppx: SCDs,? eliquis Full code ongoin? 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 Quality Stroke Does the patient have a stroke diagnosis?: No VTE Prior VTE?: No VTE Risk Level:: Medical - moderate - high VTE Device Contraindication: Treatment Not Indicated VTE Drug Contraindication: N/A - Med Ordered
[2022-09-07 09:16] LABS: Glucose, Whole Blood 137 mg/dL (60-115)
[2022-09-07] MEDS: Tamsulosin HCL 0.4 MG CAPSULE 0.8 MG PO (10:24)
[2022-09-07 11:23] LABS: Glucose, Whole Blood 112 mg/dL (60-115)
[2022-09-07 16:00] VITALS: BP 131/60; PULSE 82; RESP 16; TEMP 36.2; O2SAT 98
[2022-09-07 17:00] LABS: Glucose, Whole Blood 142 mg/dL (60-115)
[2022-09-07 20:00] VITALS: BP 131/59; PULSE 88; RESP 15; TEMP 36.5; O2SAT 97
[2022-09-07 20:19] LABS: Glucose, Whole Blood 186 mg/dL (60-115)
[2022-09-07] MEDS: Insulin Lispro 100 UNIT/ML 3 ML VIAL SUBCUT (20:50)
[2022-09-07] MEDS: Insulin Glargine,Hum.rec.anlog 100 UNIT/ML 10 ML VIAL SUBCUT (20:51)
[2022-09-08] MEDS: Acetaminophen 325 MG TABLET 650 MG PO ×2 (00:11→21:18)
[2022-09-08 04:00] VITALS: BP 124/59; PULSE 87; RESP 20; TEMP 36.5; O2SAT 97
[2022-09-08 07:30] LABS: Glucose, Whole Blood 95 mg/dL (60-115)
[2022-09-08 08:00] VITALS: BP 131/61; PULSE 93; RESP 18; TEMP 36.5; O2SAT 98
--- NOTE | 2022-09-08 08:17 | HO.PM.IMPN ---
Subjective Subjective Date of Service: 09/08/22 Interval History: Still awaiting placment, no new issues Review of Systems denies any nausea or vomiting has some tearing eyes. no diarrahe or abd pain Physical Exam Vital Signs: Vital Signs: Last Vital Signs Temp 97.7 F 09/08/22 08:00 Pulse 93 09/08/22 08:00 Resp 18 09/08/22 08:00 BP 131/61 09/08/22 08:00 Pulse Ox 98 09/08/22 08:00 O2 Del Method 09/08/22 08:00 O2 Flow Rate 2 09/04/22 12:48 BMI result Body Mass Index 26.6 Const: Other: General: AO X 1, no acute distress Resp: CTA bilateral CVS: S1,S2,RRR GI: +BS, NT, no distention Skin: decub ulcer stable Neuro: motor grossly intact Psych: appropriate affect Objective Data Active Medications Acetaminophen (Acetaminophen 325 Mg Tablet) 650 mg PO Q6H PRN PRN Reason: Pain, Mild (Pain Scale 1-3) Last Admin: 09/08/22 00:11 Dose: 650 mg Documented By: JANICE Amiodarone HCl (Amiodarone Hcl 200 Mg Tablet) 200 mg PO DAILY [facility] Last Admin: 09/07/22 08:10 Dose: 200 mg Documented By: JETT Apixaban (Apixaban 5 Mg Tablet) 5 mg PO BID [facility] Last Admin: 09/07/22 20:50 Dose: 5 mg Documented By: JANICE Artificial Tears (Artificial Tears 15 Ml Drops) 1 drop EYE-BOTH Q4H PRN PRN Reason: tearin Last Admin: 09/02/22 20:26 Dose: 1 drop Documented By: NARCISO Benzocaine (Throat Lozenge, Medicated Lozenge) 1 lozenge MUCOUS MEM Q2H PRN PRN Reason: Sore Throat Dextrose (Dextrose 50 % 25 Gm/50 Ml Syringe) 25 gm IVPUSH Q15M PRN; Protocol PRN Reason: per Hypoglycemia Standing Ord. Ferrous Sulfate (Ferrous Sulfate 324 Mg Tablet.) 324 mg PO BIDWM [facility] Last Admin: 09/07/22 17:58 Dose: 324 mg Documented By: JETT Finasteride (Finasteride 5 Mg Tablet) 5 mg PO DAILY [facility] Last Admin: 09/07/22 08:09 Dose: 5 mg Documented By: JETT Glucose (Glucose Gel 15 Gm Gel..Gram.) 15 gm PO Q15M PRN; Protocol PRN Reason: per Hypoglycemia Standing Ord. Guaifenesin (Guaifenesin 100 Mg/5 Ml Liquid) 5 ml PO Q6H PRN PRN Reason: Cough Insulin Glargine (Insulin Glargine,Hum.Rec.Anlog 100 Unit/Ml 10 Ml Vial) 5 unit SUBCUT BEDTIME [facility] Last Admin: 09/07/22 20:51 Dose: 5 unit Documented By: ODRISCinthya Insulin Glargine (Insulin Glargine,Hum.Rec.Anlog 100 Unit/Ml 10 Ml Vial) 25 unit SUBCUT DAILY@0730 [facility] Last Admin: 09/08/22 07:47 Dose: Not Given Documented By: JETT Non-Admin Reason: POC 95, held Insulin Human Lispro (Insulin Lispro 100 Unit/Ml 3 Ml Vial) 0 unit SUBCUT QIDACHS [facility]; Protocol Last Admin: 09/08/22 07:35 Dose: Not Given Documented By: JETT Non-Admin Reason: No Insulin Coverage Lidocaine (Lidocaine 4 % Patch Adh..Patch) 1 patch TRANSDERMA DAILY [facility]; Protocol Last Admin: 09/07/22 08:09 Dose: 1 patch Documented By: JETT Metformin HCl (Metformin Hcl 850 Mg Tablet) 850 mg PO BIDWM [facility] Last Admin: 09/07/22 17:58 Dose: 850 mg Documented By: JETT Metoprolol Succinate (Metoprolol Succinate Er 100 Mg Tab.Er.24h) 100 mg PO DAILY [facility] Last Admin: 09/07/22 08:10 Dose: 100 mg Documented By: JETT Ondansetron HCl (Ondansetron Hcl 4 Mg/2 Ml Vial) 4 mg IVPUSH Q8H PRN PRN Reason: Nausea and Vomiting Last Admin: 07/07/22 01:05 Dose: 4 mg Documented By: MARIANN Ondansetron HCl (Ondansetron Hcl 4 Mg/2 Ml Vial) 4 mg IVPUSH ONCE PRN PRN Reason: Nausea and Vomiting Ondansetron HCl (Ondansetron Hcl 4 Mg/2 Ml Vial) 4 mg IVPUSH ONCE PRN PRN Reason: Nausea and Vomiting Pharmacy Consult (Consult Rx Perform Med Rec) 1 each MISCELLANE ONCE PRN PRN Reason: Consult order Polyethylene Glycol (Polyethylene Glycol 3350 17 Gm Powd.Pack) 17 gm PO DAILY PRN PRN Reason: constipation Last Admin: 08/06/22 08:19 Dose: 17 gm Documented By: ADRIANA Sodium Chloride (0.9 % Sodium Chloride Flush 3 Ml Syringe) 3 ml IVFLUSH QSHIFT [facility] Last Admin: 09/08/22 07:36 Dose: Not Given Documented By: JETT Non-Admin Reason: No Access Sodium Hypochlorite (Sodium Hypochlorite 0.25% 473 Ml Solution) 1 appl TOPICAL BID [facility] Last Admin: 09/07/22 20:51 Dose: 1 appl Documented By: JANICE Tamsulosin HCl (Tamsulosin Hcl 0.4 Mg Capsule) 0.8 mg PO DAILY [facility] Last Admin: 09/07/22 10:24 Dose: 0.8 mg Documented By: JETT Vitamin D (Cholecalciferol (Vitamin D3) 25 Mcg Tablet) 50 mcg PO DAILY [facility] Last Admin: 09/07/22 08:10 Dose: 50 mcg Documented By: JETT Zinc Acetate/Diphenhydramine (Diphenhydramine Hcl 2 % Cream 28 Gm Tube) 1 appl TOPICAL TID PRN; Protocol PRN Reason: itching Labs 09/04/22 08:33 09/04/22 08:33 Labs: Laboratory Results - last 24 hr 09/07/22 09/07/22 09/07/22 09:13 11:11 16:22 POC Glucose 137 H 112 142 H 09/07/22 09/08/22 19:47 07:26 POC Glucose 186 H 95 Assessment and Plan (1) SVT (supraventricular tachycardia): Status: Acute Plan 74yo M with DM2, HTN, HLD, chronic venous stasis dermatitis presented with mechanical fall, admitted for hypoxia due to PNA cough--check covid, cxr Sacral decubitus ulcer.? Unstageable, necrotic 10cm x10 cm with 4 cm depth frequent turn,air loss? bed ,continue wound care Improving s/p debridements 07/08, 07/17, /2 s/p wound vac placement 07/22/22 - removed 07/25 after it became soiled continue wet to dry dressings , being followed by General surgery- d/w surgery - wound vac not helping and would avoid Atrial flutter/fib, rate stable LVEF >70% continue toprol xl and Eliquis Episode of SVT vs atrial tachycardia 07/26 HR improved with IV Lopressor, finish loading dose of amiodarone and started on amiodarone 200 mg by mouth daily on August 07, continue Toprol XL Acute blood loss anemia. Resolved s/p blood loss at site of decub ulcer patient received 2 unit of packed RBC continue ferrous sulfate b.i.d. H/H stable CBC check periodically Traumatic SAH CT brain 06/26 ? New small areas of extra-axial hemorrhage adjacent to the left posterior parietal lobe, bilateral occipital lobes and in the occipital horns of both lateral ventricles, repeat CT 06/28 unchanged seen by neuro - AC was held for two weeks no headache, no dizziness No other complications Acute hypoxic respiratory failure due to PNA. Resolved finished 10d of ABX back on room air Urinary retention failed voiding trial x2 continue tamsulosin and finasteride seen by urology, continue roberts upon discharge - outpatient urology follow up Hyponatremia resolved s/p urea cortisol, TSH wnl Mechanical fall difficulty ambulating; awaiting SNF placement, PT has been working with him I do not think he will walk again generalized weakness 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 but not clinically NPH per Neurology incidental 1.3cm pancreatic lesions may reflect adjacent pancreatic cysts outpt MRI/MRCP DM2? : fs acceptable continue Lantus, SSI adjusted . HTN Stable blood pressures, continue metoprolol losartan and hydralazine discontinued due to soft blood pressures HLD statin b/l eye dryness -? tear ( clear tearin,no erythema or pain or vision change) added tear drops cough 2/4, CXR no pna VTE ppx: SCDs,? eliquis Full code ongoin? 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 Quality Stroke Does the patient have a stroke diagnosis?: No VTE Prior VTE?: No VTE Risk Level:: Medical - moderate - high VTE Device Contraindication: Treatment Not Indicated VTE Drug Contraindication: N/A - Med Ordered
[2022-09-08 08:34] LABS: Creatinine Clr Calc Pharmacy 119.7; Estimated Glomerular Filt Rate > 60
[2022-09-08] MEDS: Lidocaine 4 % Patch ADH..PATCH 1 PATCH TRANSDERMA (10:12)
[2022-09-08] MEDS: Cholecalciferol (Vitamin D3) 25 MCG TABLET 50 MCG PO (10:13)
[2022-09-08] MEDS: Ferrous Sulfate 324 MG TABLET.DR PO ×2 (10:13→16:48)
[2022-09-08] MEDS: Tamsulosin HCL 0.4 MG CAPSULE 0.8 MG PO (10:13)
[2022-09-08] MEDS: Amiodarone HCL 200 MG TABLET PO (10:13)
[2022-09-08] MEDS: Finasteride 5 MG TABLET PO (10:13)
[2022-09-08] MEDS: metFORMIN HCl 850 MG TABLET PO ×2 (10:13→16:48)
[2022-09-08] MEDS: Metoprolol Succinate ER 100 MG TAB.ER.24H PO (10:13)
[2022-09-08] MEDS: Apixaban 5 MG TABLET PO ×2 (10:13→20:02)
[2022-09-08 11:29] LABS: Glucose, Whole Blood 202 mg/dL (60-115)
[2022-09-08] MEDS: Insulin Lispro 100 UNIT/ML 3 ML VIAL SUBCUT ×3 (11:51→20:02)
[2022-09-08 16:00] VITALS: BP 151/70; PULSE 87; RESP 16; TEMP 37; O2SAT 96
[2022-09-08 16:37] LABS: Glucose, Whole Blood 181 mg/dL (60-115)
[2022-09-08 19:37] VITALS: BP 126/60; PULSE 92; RESP 16; TEMP 36.4; O2SAT 94
[2022-09-08 20:02] LABS: Glucose, Whole Blood 171 mg/dL (60-115)
[2022-09-08] MEDS: Insulin Glargine,Hum.rec.anlog 100 UNIT/ML 10 ML VIAL SUBCUT (20:03)
[2022-09-09 04:00] VITALS: BP 130/67; PULSE 76; RESP 16; TEMP 36.2; O2SAT 93
[2022-09-09 07:09] VITALS: BP 129/60; PULSE 85; RESP 18; TEMP 36.4; O2SAT 94
[2022-09-09 07:32] LABS: Glucose, Whole Blood 120 mg/dL (60-115)
[2022-09-09] MEDS: Ferrous Sulfate 324 MG TABLET.DR PO ×2 (08:15→16:32)
[2022-09-09] MEDS: Metoprolol Succinate ER 100 MG TAB.ER.24H PO (08:15)
[2022-09-09] MEDS: Amiodarone HCL 200 MG TABLET PO (08:15)
[2022-09-09] MEDS: Cholecalciferol (Vitamin D3) 25 MCG TABLET 50 MCG PO (08:15)
[2022-09-09] MEDS: Finasteride 5 MG TABLET PO (08:16)
[2022-09-09] MEDS: metFORMIN HCl 850 MG TABLET PO ×2 (08:16→16:32)
[2022-09-09] MEDS: Apixaban 5 MG TABLET PO ×2 (08:16→20:13)
[2022-09-09] MEDS: Insulin Glargine,Hum.rec.anlog 100 UNIT/ML 10 ML VIAL 25 UNIT SUBCUT (08:16)
[2022-09-09] MEDS: Lidocaine 4 % Patch ADH..PATCH 1 PATCH TRANSDERMA (08:16)
[2022-09-09] MEDS: Tamsulosin HCL 0.4 MG CAPSULE 0.8 MG PO (08:16)
[2022-09-09 11:15] LABS: Glucose, Whole Blood 224 mg/dL (60-115)
--- NOTE | 2022-09-09 11:30 | P.PNIM_ITS ---
Subjective Subjective Date of Service: 09/09/22 Interval History: Still awaiting placment, no new issues at this time cough improved Physical Exam Vital Signs: Vital Signs: Last Vital Signs Temp 97.6 F 09/09/22 07:09 Pulse 85 09/09/22 07:09 Resp 18 09/09/22 07:09 BP 129/60 09/09/22 07:09 Pulse Ox 94 09/09/22 07:09 O2 Del Method 09/09/22 07:09 O2 Flow Rate 2 09/04/22 12:48 BMI result Body Mass Index 26.6 Const: Other: General: AO X 1, no acute distress Resp: CTA bilateral CVS: S1,S2,RRR GI: +BS, NT, no distention Skin: decub ulcer stable Neuro: motor grossly intact Psych: appropriate affect Objective Data Active Medications Acetaminophen (Acetaminophen 325 Mg Tablet) 650 mg PO Q6H PRN PRN Reason: Pain, Mild (Pain Scale 1-3) Last Admin: 09/08/22 21:18 Dose: 650 mg Documented By: JANICE Amiodarone HCl (Amiodarone Hcl 200 Mg Tablet) 200 mg PO DAILY [facility] Last Admin: 09/09/22 08:15 Dose: 200 mg Documented By: ELVIRA Apixaban (Apixaban 5 Mg Tablet) 5 mg PO BID [facility] Last Admin: 09/09/22 08:16 Dose: 5 mg Documented By: ELVIRA Artificial Tears (Artificial Tears 15 Ml Drops) 1 drop EYE-BOTH Q4H PRN PRN Reason: tearin Last Admin: 09/02/22 20:26 Dose: 1 drop Documented By: NARCISO Benzocaine (Throat Lozenge, Medicated Lozenge) 1 lozenge MUCOUS MEM Q2H PRN PRN Reason: Sore Throat Dextrose (Dextrose 50 % 25 Gm/50 Ml Syringe) 25 gm IVPUSH Q15M PRN; Protocol PRN Reason: per Hypoglycemia Standing Ord. Ferrous Sulfate (Ferrous Sulfate 324 Mg Tablet.) 324 mg PO BIDWM [facility] Last Admin: 09/09/22 08:15 Dose: 324 mg Documented By: ELVIRA Finasteride (Finasteride 5 Mg Tablet) 5 mg PO DAILY [facility] Last Admin: 09/09/22 08:16 Dose: 5 mg Documented By: ELVIRA Glucose (Glucose Gel 15 Gm Gel..Gram.) 15 gm PO Q15M PRN; Protocol PRN Reason: per Hypoglycemia Standing Ord. Guaifenesin (Guaifenesin 100 Mg/5 Ml Liquid) 5 ml PO Q6H PRN PRN Reason: Cough Insulin Glargine (Insulin Glargine,Hum.Rec.Anlog 100 Unit/Ml 10 Ml Vial) 5 unit SUBCUT BEDTIME [facility] Last Admin: 09/08/22 20:03 Dose: 5 unit Documented By: ROMARISCinthya Insulin Glargine (Insulin Glargine,Hum.Rec.Anlog 100 Unit/Ml 10 Ml Vial) 25 unit SUBCUT DAILY@0730 [facility] Last Admin: 09/09/22 08:16 Dose: 25 unit Documented By: ELVIRA Insulin Human Lispro (Insulin Lispro 100 Unit/Ml 3 Ml Vial) 0 unit SUBCUT QIDACHS [facility]; Protocol Last Admin: 09/09/22 08:17 Dose: Not Given Documented By: ELVIRA Non-Admin Reason: No Insulin Coverage Lidocaine (Lidocaine 4 % Patch Adh..Patch) 1 patch TRANSDERMA DAILY [facility]; Protocol Last Admin: 09/09/22 08:16 Dose: 1 patch Documented By: ELVIRA Metformin HCl (Metformin Hcl 850 Mg Tablet) 850 mg PO BIDWM [facility] Last Admin: 09/09/22 08:16 Dose: 850 mg Documented By: ELVIRA Metoprolol Succinate (Metoprolol Succinate Er 100 Mg Tab.Er.24h) 100 mg PO DAILY [facility] Last Admin: 09/09/22 08:15 Dose: 100 mg Documented By: ELVIAR Ondansetron HCl (Ondansetron Hcl 4 Mg/2 Ml Vial) 4 mg IVPUSH Q8H PRN PRN Reason: Nausea and Vomiting Last Admin: 07/07/22 01:05 Dose: 4 mg Documented By: MARIANN Ondansetron HCl (Ondansetron Hcl 4 Mg/2 Ml Vial) 4 mg IVPUSH ONCE PRN PRN Reason: Nausea and Vomiting Ondansetron HCl (Ondansetron Hcl 4 Mg/2 Ml Vial) 4 mg IVPUSH ONCE PRN PRN Reason: Nausea and Vomiting Pharmacy Consult (Consult Rx Perform Med Rec) 1 each MISCELLANE ONCE PRN PRN Reason: Consult order Polyethylene Glycol (Polyethylene Glycol 3350 17 Gm Powd.Pack) 17 gm PO DAILY PRN PRN Reason: constipation Last Admin: 08/06/22 08:19 Dose: 17 gm Documented By: ADRIANA Sodium Chloride (0.9 % Sodium Chloride Flush 3 Ml Syringe) 3 ml IVFLUSH QSHIFT [facility] Last Admin: 09/09/22 08:17 Dose: Not Given Documented By: ELVIRA Non-Admin Reason: No Access Sodium Hypochlorite (Sodium Hypochlorite 0.25% 473 Ml Solution) 1 appl TOPICAL BID [facility] Last Admin: 09/09/22 08:17 Dose: 1 appl Documented By: ELVIRA Tamsulosin HCl (Tamsulosin Hcl 0.4 Mg Capsule) 0.8 mg PO DAILY [facility] Last Admin: 09/09/22 08:16 Dose: 0.8 mg Documented By: ELVIRA Vitamin D (Cholecalciferol (Vitamin D3) 25 Mcg Tablet) 50 mcg PO DAILY [facility] Last Admin: 09/09/22 08:15 Dose: 50 mcg Documented By: ELVIRA Zinc Acetate/Diphenhydramine (Diphenhydramine Hcl 2 % Cream 28 Gm Tube) 1 appl TOPICAL TID PRN; Protocol PRN Reason: itching Labs 09/04/22 08:33 09/08/22 06:15 Labs: Laboratory Results - last 24 hr 09/08/22 09/08/22 09/09/22 16:12 19:40 07:06 POC Glucose 181 H 171 H 120 H 09/09/22 11:06 POC Glucose 224 H Assessment and Plan (1) SVT (supraventricular tachycardia): Status: Acute Plan 74yo M with DM2, HTN, HLD, chronic venous stasis dermatitis presented with me chanical fall, admitted for hypoxia due to PNA cough--ccovid and cxr negative Sacral decubitus ulcer.? Unstageable, necrotic 10cm x10 cm with 4 cm depth frequent turn,air loss? bed ,continue wound care Improving s/p debridements 07/08, 07/17, 12 s/p wound vac placement 07/22/22 - removed 07/25 after it became soiled continue wet to dry dressings , being followed by General surgery- d/w surgery - wound vac not helping and would avoid Atrial flutter/fib, rate stable LVEF >70% continue toprol xl and Eliquis Episode of SVT vs atrial tachycardia 07/26 HR improved with IV Lopressor, finish loading dose of amiodarone and started on amiodarone 200 mg by mouth daily on August 07, continue Toprol XL Acute blood loss anemia. Resolved s/p blood loss at site of decub ulcer patient received 2 unit of packed RBC continue ferrous sulfate b.i.d. H/H stable CBC check periodically Traumatic SAH CT brain 06/26 ? New small areas of extra-axial hemorrhage adjacent to the left posterior parietal lobe, bilateral occipital lobes and in the occipital horns of both lateral ventricles, repeat CT 06/28 unchanged seen by neuro - AC was held for two weeks no headache, no dizziness No other complications Acute hypoxic respiratory failure due to PNA. Resolved finished 10d of ABX back on room air Urinary retention failed voiding trial x2 continue tamsulosin and finasteride seen by urology, continue roberts upon discharge - outpatient urology follow up Hyponatremia resolved s/p urea cortisol, TSH wnl Mechanical fall difficulty ambulating; awaiting SNF placement, PT has been working with him I do not think he will walk again generalized weakness 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 but not clinically NPH per Neurology incidental 1.3cm pancreatic lesions may reflect adjacent pancreatic cysts outpt MRI/MRCP DM2? : fs acceptable continue Lantus, SSI adjusted . HTN Stable blood pressures, continue metoprolol losartan and hydralazine discontinued due to soft blood pressures HLD statin b/l eye dryness -? tear ( clear tearin,no erythema or pain or vision change) added tear drops cough 2/4, CXR no pna VTE ppx: SCDs,? eliquis Full code ongoin? 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 Quality Stroke Does the patient have a stroke diagnosis?: No VTE Prior VTE?: No VTE Risk Level:: Medical - moderate - high VTE Device Contraindication: Treatment Not Indicated VTE Drug Contraindication: N/A - Med Ordered
[2022-09-09] MEDS: Insulin Lispro 100 UNIT/ML 3 ML VIAL SUBCUT ×3 (11:34→20:13)
--- NOTE | 2022-09-09 14:30 | MHC.CM.PN ---
[facility] REVIEWED, PER INSURANCE VERIFICATION PT IS ACTIVE W/[facility] MEDICARE AND D/T LATE DATE OF DROPPING [facility] IT WILL LIKELY NOT GO THROUGH UNTIL END OF MONTH. PT CONT'S TO HAVE NO BED OFFERS, REFERRAL UPDATED AND EXPANDED, PT DOES REPORT HE PREFERS [facility] HOWEVER THEY ARE NOT CONTRACTED W/[facility] AND THEREFORE HAS BEEN DECLINED, MESSAGE HAS BEEN SENT REGARDING ANTICIPATED CHANGE OF INSURANCE, CM AWAITING RESPONCE, CM WILL CONT TO FOLLOW.
[2022-09-09 15:13] VITALS: BP 115/54; PULSE 85; RESP 18; TEMP 36.5; O2SAT 97
[2022-09-09 16:36] LABS: Glucose, Whole Blood 153 mg/dL (60-115)
[2022-09-09 19:29] VITALS: BP 118/53; PULSE 94; RESP 18; TEMP 37; O2SAT 95
[2022-09-09 19:56] LABS: Glucose, Whole Blood 161 mg/dL (60-115)
[2022-09-09] MEDS: Insulin Glargine,Hum.rec.anlog 100 UNIT/ML 10 ML VIAL SUBCUT (20:13)
[2022-09-09] MEDS: Acetaminophen 325 MG TABLET 650 MG PO (22:33)
[2022-09-10 04:00] VITALS: BP 134/60; PULSE 72; RESP 16; TEMP 36.2; O2SAT 97
[2022-09-10 07:47] LABS: Glucose, Whole Blood 85 mg/dL (60-115)
[2022-09-10 07:48] VITALS: BP 143/67; PULSE 85; RESP 18; TEMP 36.7; O2SAT 95
[2022-09-10] MEDS: Lidocaine 4 % Patch ADH..PATCH 1 PATCH TRANSDERMA (08:45)
[2022-09-10] MEDS: metFORMIN HCl 850 MG TABLET PO ×2 (08:46→16:50)
[2022-09-10] MEDS: Metoprolol Succinate ER 100 MG TAB.ER.24H PO (08:46)
[2022-09-10] MEDS: Cholecalciferol (Vitamin D3) 25 MCG TABLET 50 MCG PO (08:46)
[2022-09-10] MEDS: Ferrous Sulfate 324 MG TABLET.DR PO ×2 (08:47→16:50)
[2022-09-10] MEDS: Amiodarone HCL 200 MG TABLET PO (08:47)
[2022-09-10] MEDS: Apixaban 5 MG TABLET PO ×2 (08:47→21:42)
[2022-09-10] MEDS: Tamsulosin HCL 0.4 MG CAPSULE 0.8 MG PO (08:47)
[2022-09-10] MEDS: Finasteride 5 MG TABLET PO (08:47)
[2022-09-10] MEDS: Insulin Glargine,Hum.rec.anlog 100 UNIT/ML 10 ML VIAL 25 UNIT SUBCUT (08:47)
[2022-09-10 11:19] LABS: Glucose, Whole Blood 254 mg/dL (60-115)
[2022-09-10] MEDS: Insulin Lispro 100 UNIT/ML 3 ML VIAL SUBCUT ×3 (11:59→21:42)
[2022-09-10 16:00] VITALS: BP 141/67; PULSE 85; RESP 18; TEMP 36.7; O2SAT 96
[2022-09-10 16:19] LABS: Glucose, Whole Blood 186 mg/dL (60-115)
[2022-09-10] MEDS: Acetaminophen 325 MG TABLET 650 MG PO (16:29)
--- NOTE | 2022-09-10 16:44 | PC.NURSE ---
FC removed at 1644, pt tolerated well. Due to void 2243. [place] cath in place.
--- NOTE | 2022-09-10 16:47 | HO.PM.IMPN ---
Subjective Subjective Date of Service: 09/10/22 Interval History: awaiting placement, no new issues. Review of Systems denies any nausea or vomitin has some tearing eyes. no diarrahe or abd pain Physical Exam Vital Signs: Vital Signs: Last Vital Signs Temp 98.1 F 09/10/22 16:00 Pulse 85 09/10/22 16:00 Resp 18 09/10/22 16:00 BP 141/67 H 09/10/22 16:00 Pulse Ox 96 09/10/22 16:00 O2 Del Method 09/10/22 16:00 O2 Flow Rate 2 09/04/22 12:48 BMI result Body Mass Index 26.6 General: AO X 1, no acute distress Eyes: b/l teraing , no pain or erythema Resp:? CTA bilateral CVS: S1,S2,RRR GI: +BS, NT, no distention Skin: decub ulcer stable Neuro:? motor grossly intact Psych: appropriate affect Objective Data Active Medications Acetaminophen (Acetaminophen 325 Mg Tablet) 650 mg PO Q6H PRN PRN Reason: Pain, Mild (Pain Scale 1-3) Last Admin: 09/10/22 16:29 Dose: 650 mg Documented By: BARB Amiodarone HCl (Amiodarone Hcl 200 Mg Tablet) 200 mg PO DAILY [facility] Last Admin: 09/10/22 08:47 Dose: 200 mg Documented By: BARB Apixaban (Apixaban 5 Mg Tablet) 5 mg PO BID [facility] Last Admin: 09/10/22 08:47 Dose: 5 mg Documented By: BARB Artificial Tears (Artificial Tears 15 Ml Drops) 1 drop EYE-BOTH Q4H PRN PRN Reason: tearin Last Admin: 09/02/22 20:26 Dose: 1 drop Documented By: NARCISO Benzocaine (Throat Lozenge, Medicated Lozenge) 1 lozenge MUCOUS MEM Q2H PRN PRN Reason: Sore Throat Dextrose (Dextrose 50 % 25 Gm/50 Ml Syringe) 25 gm IVPUSH Q15M PRN; Protocol PRN Reason: per Hypoglycemia Standing Ord. Ferrous Sulfate (Ferrous Sulfate 324 Mg Tablet.) 324 mg PO BIDWM [facility] Last Admin: 09/10/22 08:47 Dose: 324 mg Documented By: BARB Finasteride (Finasteride 5 Mg Tablet) 5 mg PO DAILY [facility] Last Admin: 09/10/22 08:47 Dose: 5 mg Documented By: BARB Glucose (Glucose Gel 15 Gm Gel..Gram.) 15 gm PO Q15M PRN; Protocol PRN Reason: per Hypoglycemia Standing Ord. Guaifenesin (Guaifenesin 100 Mg/5 Ml Liquid) 5 ml PO Q6H PRN PRN Reason: Cough Insulin Glargine (Insulin Glargine,Hum.Rec.Anlog 100 Unit/Ml 10 Ml Vial) 5 unit SUBCUT BEDTIME [facility] Last Admin: 09/09/22 20:13 Dose: 5 unit Documented By: TONNY Insulin Glargine (Insulin Glargine,Hum.Rec.Anlog 100 Unit/Ml 10 Ml Vial) 25 unit SUBCUT DAILY@0730 [facility] Last Admin: 09/10/22 08:47 Dose: 25 unit Documented By: BARB Insulin Human Lispro (Insulin Lispro 100 Unit/Ml 3 Ml Vial) 0 unit SUBCUT QIDACHS [facility]; Protocol Last Admin: 09/10/22 11:59 Dose: 10 unit Documented By: BARB Lidocaine (Lidocaine 4 % Patch Adh..Patch) 1 patch TRANSDERMA DAILY [facility]; Protocol Last Admin: 09/10/22 08:45 Dose: 1 patch Documented By: BARB Metformin HCl (Metformin Hcl 850 Mg Tablet) 850 mg PO BIDWM [facility] Last Admin: 09/10/22 08:46 Dose: 850 mg Documented By: BARB Metoprolol Succinate (Metoprolol Succinate Er 100 Mg Tab.Er.24h) 100 mg PO DAILY [facility] Last Admin: 09/10/22 08:46 Dose: 100 mg Documented By: BARB Ondansetron HCl (Ondansetron Hcl 4 Mg/2 Ml Vial) 4 mg IVPUSH Q8H PRN PRN Reason: Nausea and Vomiting Last Admin: 07/07/22 01:05 Dose: 4 mg Documented By: MARIANN Ondansetron HCl (Ondansetron Hcl 4 Mg/2 Ml Vial) 4 mg IVPUSH ONCE PRN PRN Reason: Nausea and Vomiting Ondansetron HCl (Ondansetron Hcl 4 Mg/2 Ml Vial) 4 mg IVPUSH ONCE PRN PRN Reason: Nausea and Vomiting Pharmacy Consult (Consult Rx Perform Med Rec) 1 each MISCELLANE ONCE PRN PRN Reason: Consult order Polyethylene Glycol (Polyethylene Glycol 3350 17 Gm Powd.Pack) 17 gm PO DAILY PRN PRN Reason: constipation Last Admin: 08/06/22 08:19 Dose: 17 gm Documented By: ADRIANA Sodium Chloride (0.9 % Sodium Chloride Flush 3 Ml Syringe) 3 ml IVFLUSH QSHIFT [facility] Last Admin: 09/10/22 08:56 Dose: Not Given Documented By: BARB Non-Admin Reason: no iv site Sodium Hypochlorite (Sodium Hypochlorite 0.25% 473 Ml Solution) 1 appl TOPICAL BID [facility] Last Admin: 09/10/22 08:57 Dose: 1 appl Documented By: BARB Tamsulosin HCl (Tamsulosin Hcl 0.4 Mg Capsule) 0.8 mg PO DAILY [facility] Last Admin: 09/10/22 08:47 Dose: 0.8 mg Documented By: BARB Vitamin D (Cholecalciferol (Vitamin D3) 25 Mcg Tablet) 50 mcg PO DAILY [facility] Last Admin: 09/10/22 08:46 Dose: 50 mcg Documented By: BARB Zinc Acetate/Diphenhydramine (Diphenhydramine Hcl 2 % Cream 28 Gm Tube) 1 appl TOPICAL TID PRN; Protocol PRN Reason: itching Labs 09/04/22 08:33 09/08/22 06:15 Labs: Laboratory Results - last 24 hr 09/09/22 09/10/22 09/10/22 19:30 07:16 11:15 POC Glucose 161 H 85 254 H 09/10/22 16:15 POC Glucose 186 H Assessment and Plan (1) SVT (supraventricular tachycardia): Status: Acute Plan 74yo M with DM2, HTN, HLD, chronic venous stasis dermatitis presented with mechanical fall, admitted for hypoxia due to PNA cough--ccovid and cxr negative Sacral decubitus ulcer.? Unstageable, necrotic 10cm x10 cm with 4 cm depth frequent turn,air loss? bed ,continue wound care Improving s/p debridements 07/08, 07/17, /2 s/p wound vac placement 07/22/22 - removed 07/25 after it became soiled continue wet to dry dressings , being followed by General surgery- d/w surgery - wound vac not helping and would avoid Atrial flutter/fib, rate stable LVEF >70% continue toprol xl and Eliquis Episode of SVT vs atrial tachycardia 07/26 HR improved with IV Lopressor, finish loading dose of amiodarone and started on amiodarone 200 mg by mouth daily on August 07, continue Toprol XL Acute blood loss anemia. Resolved s/p blood loss at site of decub ulcer patient received 2 unit of packed RBC continue ferrous sulfate b.i.d. H/H stable CBC check periodically Traumatic SAH CT brain 06/26 ? New small areas of extra-axial hemorrhage adjacent to the left posterior parietal lobe, bilateral occipital lobes and in the occipital horns of both lateral ventricles, repeat CT 06/28 unchanged seen by neuro - AC was held for two weeks no headache, no dizziness No other complications Acute hypoxic respiratory failure due to PNA. Resolved finished 10d of ABX back on room air Urinary retention failed voiding trial x2 continue tamsulosin and finasteride seen by urology, continue roberts upon discharge - outpatient urology follow up Hyponatremia resolved s/p urea cortisol, TSH wnl Mechanical fall difficulty ambulating; awaiting SNF placement, PT has been working with him I do not think he will walk again generalized weakness 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 but not clinically NPH per Neurology incidental 1.3cm pancreatic lesions may reflect adjacent pancreatic cysts outpt MRI/MRCP DM2? : fs acceptable continue Lantus, SSI adjusted . HTN Stable blood pressures, continue metoprolol losartan and hydralazine discontinued due to soft blood pressures HLD statin b/l eye dryness -? tear ( clear tearin,no erythema or pain or vision change) added tear drops cough 2/4, CXR no pna VTE ppx: SCDs,? eliquis Full code ongoin? 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 Quality Stroke Does the patient have a stroke diagnosis?: No VTE Prior VTE?: No VTE Risk Level:: Medical - moderate - high VTE Device Contraindication: Treatment Not Indicated VTE Drug Contraindication: N/A - Med Ordered
[2022-09-10 19:35] VITALS: BP 112/55; PULSE 78; RESP 17; TEMP 36.8; O2SAT 96
[2022-09-10 20:12] LABS: Glucose, Whole Blood 188 mg/dL (60-115)
[2022-09-10] MEDS: Insulin Glargine,Hum.rec.anlog 100 UNIT/ML 10 ML VIAL SUBCUT (21:42)
[2022-09-11 03:24] VITALS: BP 124/60; PULSE 90; RESP 16; TEMP 36.6; O2SAT 97
[2022-09-11] MEDS: Acetaminophen 325 MG TABLET 650 MG PO ×2 (05:24→21:50)
--- NOTE | 2022-09-11 05:37 | PC.NURSE ---
urinary retention noted agan pt void about 200 ml after 8 hours f/c was removed bladder scan for [address] Umer torres f/c to place back in
[2022-09-11 07:25] LABS: Glucose, Whole Blood 85 mg/dL (60-115)
[2022-09-11 07:49] VITALS: BP 120/57; PULSE 89; RESP 18; TEMP 37; O2SAT 96
[2022-09-11] MEDS: Lidocaine 4 % Patch ADH..PATCH 1 PATCH TRANSDERMA (08:54)
[2022-09-11] MEDS: Tamsulosin HCL 0.4 MG CAPSULE 0.8 MG PO (08:55)
[2022-09-11] MEDS: metFORMIN HCl 850 MG TABLET PO ×2 (08:55→16:35)
[2022-09-11] MEDS: Apixaban 5 MG TABLET PO ×2 (08:56→20:26)
[2022-09-11] MEDS: Insulin Glargine,Hum.rec.anlog 100 UNIT/ML 10 ML VIAL 25 UNIT SUBCUT (08:56)
[2022-09-11] MEDS: Metoprolol Succinate ER 100 MG TAB.ER.24H PO (08:56)
[2022-09-11] MEDS: Finasteride 5 MG TABLET PO (08:57)
[2022-09-11] MEDS: Ferrous Sulfate 324 MG TABLET.DR PO ×2 (08:57→16:35)
[2022-09-11] MEDS: Amiodarone HCL 200 MG TABLET PO (08:57)
[2022-09-11] MEDS: Cholecalciferol (Vitamin D3) 25 MCG TABLET 50 MCG PO (08:58)
[2022-09-11 11:08] LABS: Glucose, Whole Blood 237 mg/dL (60-115)
[2022-09-11] MEDS: Insulin Lispro 100 UNIT/ML 3 ML VIAL SUBCUT ×3 (12:03→20:26)
--- NOTE | 2022-09-11 13:49 | P.PNIM_ITS ---
Subjective Subjective Date of Service: 09/11/22 Interval History: awaiting placement, no new issues. Review of Systems denies any nausea or vomitin has some tearing eyes. no diarrahe or abd pain Physical Exam Vital Signs: Vital Signs: Last Vital Signs Temp 98.6 F 09/11/22 07:49 Pulse 89 09/11/22 07:49 Resp 18 09/11/22 07:49 BP 120/57 L 09/11/22 07:49 Pulse Ox 96 09/11/22 07:49 O2 Del Method 09/11/22 07:49 O2 Flow Rate 2 09/04/22 12:48 BMI result Body Mass Index 26.6 ?General: AO X 1, no acute distress Eyes: b/l teraing , no pain or erythema Resp:? CTA bilateral CVS: S1,S2,RRR GI: +BS, NT, no distention Skin: decub ulcer stable Neuro:? motor grossly intact Psych: appropriate affect Objective Data Active Medications Acetaminophen (Acetaminophen 325 Mg Tablet) 650 mg PO Q6H PRN PRN Reason: Pain, Mild (Pain Scale 1-3) Last Admin: 09/11/22 05:24 Dose: 650 mg Documented By: TOM Amiodarone HCl (Amiodarone Hcl 200 Mg Tablet) 200 mg PO DAILY [facility] Last Admin: 09/11/22 08:57 Dose: 200 mg Documented By: ADAN Apixaban (Apixaban 5 Mg Tablet) 5 mg PO BID [facility] Last Admin: 09/11/22 08:56 Dose: 5 mg Documented By: ADAN Artificial Tears (Artificial Tears 15 Ml Drops) 1 drop EYE-BOTH Q4H PRN PRN Reason: tearin Last Admin: 09/02/22 20:26 Dose: 1 drop Documented By: NARCISO Benzocaine (Throat Lozenge, Medicated Lozenge) 1 lozenge MUCOUS MEM Q2H PRN PRN Reason: Sore Throat Dextrose (Dextrose 50 % 25 Gm/50 Ml Syringe) 25 gm IVPUSH Q15M PRN; Protocol PRN Reason: per Hypoglycemia Standing Ord. Ferrous Sulfate (Ferrous Sulfate 324 Mg Tablet.) 324 mg PO BIDWM [facility] Last Admin: 09/11/22 08:57 Dose: 324 mg Documented By: ADAN Finasteride (Finasteride 5 Mg Tablet) 5 mg PO DAILY [facility] Last Admin: 09/11/22 08:57 Dose: 5 mg Documented By: ADAN Glucose (Glucose Gel 15 Gm Gel..Gram.) 15 gm PO Q15M PRN; Protocol PRN Reason: per Hypoglycemia Standing Ord. Guaifenesin (Guaifenesin 100 Mg/5 Ml Liquid) 5 ml PO Q6H PRN PRN Reason: Cough Insulin Glargine (Insulin Glargine,Hum.Rec.Anlog 100 Unit/Ml 10 Ml Vial) 5 unit SUBCUT BEDTIME [facility] Last Admin: 09/10/22 21:42 Dose: 5 unit Documented By: TOM Insulin Glargine (Insulin Glargine,Hum.Rec.Anlog 100 Unit/Ml 10 Ml Vial) 25 unit SUBCUT DAILY@0730 [facility] Last Admin: 09/11/22 08:56 Dose: 25 unit Documented By: ADAN Insulin Human Lispro (Insulin Lispro 100 Unit/Ml 3 Ml Vial) 0 unit SUBCUT QIDACHS [facility]; Protocol Last Admin: 09/11/22 12:03 Dose: 6 unit Documented By: ADAN Lidocaine (Lidocaine 4 % Patch Adh..Patch) 1 patch TRANSDERMA DAILY [facility]; Protocol Last Admin: 09/11/22 08:54 Dose: 1 patch Documented By: ADAN Metformin HCl (Metformin Hcl 850 Mg Tablet) 850 mg PO BIDWM [facility] Last Admin: 09/11/22 08:55 Dose: 850 mg Documented By: ADAN Metoprolol Succinate (Metoprolol Succinate Er 100 Mg Tab.Er.24h) 100 mg PO DAILY [facility] Last Admin: 09/11/22 08:56 Dose: 100 mg Documented By: ADAN Ondansetron HCl (Ondansetron Hcl 4 Mg/2 Ml Vial) 4 mg IVPUSH Q8H PRN PRN Reason: Nausea and Vomiting Last Admin: 07/07/22 01:05 Dose: 4 mg Documented By: MARIANN Ondansetron HCl (Ondansetron Hcl 4 Mg/2 Ml Vial) 4 mg IVPUSH ONCE PRN PRN Reason: Nausea and Vomiting Ondansetron HCl (Ondansetron Hcl 4 Mg/2 Ml Vial) 4 mg IVPUSH ONCE PRN PRN Reason: Nausea and Vomiting Pharmacy Consult (Consult Rx Perform Med Rec) 1 each MISCELLANE ONCE PRN PRN Reason: Consult order Polyethylene Glycol (Polyethylene Glycol 3350 17 Gm Powd.Pack) 17 gm PO DAILY PRN PRN Reason: constipation Last Admin: 08/06/22 08:19 Dose: 17 gm Documented By: ADRIANA Sodium Chloride (0.9 % Sodium Chloride Flush 3 Ml Syringe) 3 ml IVFLUSH QSHIFT [facility] Last Admin: 09/11/22 08:58 Dose: Not Given Documented By: ADAN Non-Admin Reason: No Access Sodium Hypochlorite (Sodium Hypochlorite 0.25% 473 Ml Solution) 1 appl TOPICAL BID [facility] Last Admin: 09/11/22 08:59 Dose: 1 appl Documented By: ADAN Tamsulosin HCl (Tamsulosin Hcl 0.4 Mg Capsule) 0.8 mg PO DAILY [facility] Last Admin: 09/11/22 08:55 Dose: 0.8 mg Documented By: ADAN Vitamin D (Cholecalciferol (Vitamin D3) 25 Mcg Tablet) 50 mcg PO DAILY [facility] Last Admin: 09/11/22 08:58 Dose: 50 mcg Documented By: ADAN Zinc Acetate/Diphenhydramine (Diphenhydramine Hcl 2 % Cream 28 Gm Tube) 1 appl TOPICAL TID PRN; Protocol PRN Reason: itching Labs 09/04/22 08:33 09/08/22 06:15 Labs: Laboratory Results - last 24 hr 09/10/22 09/10/22 09/11/22 16:15 20:08 07:13 POC Glucose 186 H 188 H 85 09/11/22 11:04 POC Glucose 237 H Assessment and Plan (1) Stage 4 decubitus ulcer: Status: Acute Plan 74yo M with DM2, HTN, HLD, chronic venous stasis dermatitis presented with mechanical fall, admitted for hypoxia due to PNA cough--ccovid and cxr negative Sacral decubitus ulcer.? Unstageable, necrotic 10cm x10 cm with 4 cm depth frequent turn,air loss? bed ,continue wound care Improving s/p debridements 07/08, 07/17, 1/2 s/p wound vac placement 07/22/22 - removed 07/25 after it became soiled continue wet to dry dressings , being followed by General surgery- d/w surgery - wound vac not helping and would avoid Atrial flutter/fib, rate stable LVEF >70% continue toprol xl and Eliquis Episode of SVT vs atrial tachycardia 07/26 HR improved with IV Lopressor, finish loading dose of amiodarone and started on amiodarone 200 mg by mouth daily on August 07, continue Toprol XL Acute blood loss anemia. Resolved s/p blood loss at site of decub ulcer patient received 2 unit of packed RBC continue ferrous sulfate b.i.d. H/H stable CBC check periodically Traumatic SAH CT brain 06/26 ? New small areas of extra-axial hemorrhage adjacent to the left posterior parietal lobe, bilateral occipital lobes and in the occipital horns of both lateral ventricles, repeat CT 06/28 unchanged seen by neuro - AC was held for two weeks no headache, no dizziness No other complications Acute hypoxic respiratory failure due to PNA. Resolved finished 10d of ABX back on room air Urinary retention failed voiding trial x2 continue tamsulosin and finasteride seen by urology, continue roberts upon discharge - outpatient urology follow up Hyponatremia resolved s/p urea cortisol, TSH wnl Mechanical fall difficulty ambulating; awaiting SNF placement, PT has been working with him I do not think he will walk again generalized weakness 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 but not clinically NPH per Neurology incidental 1.3cm pancreatic lesions may reflect adjacent pancreatic cysts outpt MRI/MRCP DM2? : fs acceptable continue Lantus, SSI adjusted . HTN Stable blood pressures, continue metoprolol losartan and hydralazine discontinued due to soft blood pressures HLD statin b/l eye dryness -? tear ( clear tearin,no erythema or pain or vision change) added tear drops cough 2/4, CXR no pna VTE ppx: SCDs,? eliquis Full code ongoin? 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 Quality Stroke Does the patient have a stroke diagnosis?: No VTE Prior VTE?: No VTE Risk Level:: Medical - moderate - high VTE Device Contraindication: Treatment Not Indicated VTE Drug Contraindication: N/A - Med Ordered
[2022-09-11 15:51] VITALS: BP 124/60; PULSE 83; RESP 18; TEMP 36.8; O2SAT 97
[2022-09-11 16:01] LABS: Glucose, Whole Blood 154 mg/dL (60-115)
[2022-09-11 19:27] VITALS: BP 127/59; PULSE 87; RESP 18; TEMP 36.7; O2SAT 96
[2022-09-11 19:46] LABS: Glucose, Whole Blood 173 mg/dL (60-115)
[2022-09-11] MEDS: Insulin Glargine,Hum.rec.anlog 100 UNIT/ML 10 ML VIAL SUBCUT (20:26)
[2022-09-12 03:48] VITALS: BP 126/64; PULSE 76; RESP 18; TEMP 36.5; O2SAT 97
[2022-09-12 07:41] LABS: Glucose, Whole Blood 68 mg/dL (60-115)
[2022-09-12 08:00] VITALS: BP 140/64; PULSE 82; RESP 18; TEMP 36.7; O2SAT 97
[2022-09-12 08:42] LABS: Glucose, Whole Blood 143 mg/dL (60-115)
[2022-09-12] MEDS: Lidocaine 4 % Patch ADH..PATCH 1 PATCH TRANSDERMA (10:47)
[2022-09-12] MEDS: metFORMIN HCl 850 MG TABLET PO ×2 (10:47→17:01)
[2022-09-12] MEDS: Finasteride 5 MG TABLET PO (10:47)
[2022-09-12] MEDS: Amiodarone HCL 200 MG TABLET PO (10:47)
[2022-09-12] MEDS: Tamsulosin HCL 0.4 MG CAPSULE 0.8 MG PO (10:47)
[2022-09-12] MEDS: Ferrous Sulfate 324 MG TABLET.DR PO ×2 (10:48→17:01)
[2022-09-12] MEDS: Cholecalciferol (Vitamin D3) 25 MCG TABLET 50 MCG PO (10:48)
[2022-09-12] MEDS: Metoprolol Succinate ER 100 MG TAB.ER.24H PO (10:48)
[2022-09-12] MEDS: Apixaban 5 MG TABLET PO ×2 (10:49→20:02)
[2022-09-12 11:55] LABS: Glucose, Whole Blood 232 mg/dL (60-115)
[2022-09-12] MEDS: Insulin Lispro 100 UNIT/ML 3 ML VIAL SUBCUT ×3 (12:08→21:24)
--- NOTE | 2022-09-12 13:08 | HO.PM.IMPN ---
Subjective Subjective Date of Service: 09/12/22 Interval History: follow up for decubtii Review of Systems no new c/o. denies any chest pain or sob or nausea/vomiting Physical Exam Vital Signs: Vital Signs: Last Vital Signs Temp 98.0 F 09/12/22 08:00 Pulse 82 09/12/22 08:00 Resp 18 09/12/22 08:00 BP 140/64 H 09/12/22 08:00 Pulse Ox 97 09/12/22 08:00 O2 Del Method 09/12/22 08:00 O2 Flow Rate 2 09/04/22 12:48 BMI result Body Mass Index 26.6 General: AO X 1, no acute distress Eyes: b/l teraing , no pain or erythema Resp:? CTA bilateral CVS: S1,S2,RRR GI: +BS, NT, no distention Skin: decub ulcer stable Neuro:? motor grossly intact Psych: appropriate affect Objective Data Active Medications Acetaminophen (Acetaminophen 325 Mg Tablet) 650 mg PO Q6H PRN PRN Reason: Pain, Mild (Pain Scale 1-3) Last Admin: 09/11/22 21:50 Dose: 650 mg Documented By: JANICE Amiodarone HCl (Amiodarone Hcl 200 Mg Tablet) 200 mg PO DAILY [facility] Last Admin: 09/12/22 10:47 Dose: 200 mg Documented By: JETT Apixaban (Apixaban 5 Mg Tablet) 5 mg PO BID [facility] [place] Last Admin: 09/12/22 10:49 Dose: 5 mg Documented By: JETT Artificial Tears (Artificial Tears 15 Ml Drops) 1 drop EYE-BOTH Q4H PRN PRN Reason: tearin Last Admin: 09/02/22 20:26 Dose: 1 drop Documented By: NARCISO Benzocaine (Throat Lozenge, Medicated Lozenge) 1 lozenge MUCOUS MEM Q2H PRN PRN Reason: Sore Throat Dextrose (Dextrose 50 % 25 Gm/50 Ml Syringe) 25 gm IVPUSH Q15M PRN; Protocol PRN Reason: per Hypoglycemia Standing Ord. Ferrous Sulfate (Ferrous Sulfate 324 Mg Tablet.) 324 mg PO BIDWM [facility] [place] Last Admin: 09/12/22 10:48 Dose: 324 mg Documented By: JETT Finasteride (Finasteride 5 Mg Tablet) 5 mg PO DAILY [facility] [place] Last Admin: 09/12/22 10:47 Dose: 5 mg Documented By: JETT Glucose (Glucose Gel 15 Gm Gel..Gram.) 15 gm PO Q15M PRN; Protocol PRN Reason: per Hypoglycemia Standing Ord. Guaifenesin (Guaifenesin 100 Mg/5 Ml Liquid) 5 ml PO Q6H PRN PRN Reason: Cough Insulin Glargine (Insulin Glargine,Hum.Rec.Anlog 100 Unit/Ml 10 Ml Vial) 5 unit SUBCUT BEDTIME [facility] [place] Last Admin: 09/11/22 20:26 Dose: 5 unit Documented By: ODRISCinthya Insulin Glargine (Insulin Glargine,Hum.Rec.Anlog 100 Unit/Ml 10 Ml Vial) 25 unit SUBCUT DAILY@0730 [facility] [place] Last Admin: 09/12/22 08:44 Dose: Not Given Documented By: JETT Non-Admin Reason: No Insulin Coverage Insulin Human Lispro (Insulin Lispro 100 Unit/Ml 3 Ml Vial) 0 unit SUBCUT QIDACHS [facility] [place]; Protocol Last Admin: 09/12/22 12:08 Dose: 6 unit Documented By: JETT Lidocaine (Lidocaine 4 % Patch Adh..Patch) 1 patch TRANSDERMA DAILY [facility] [place]; Protocol Last Admin: 09/12/22 10:47 Dose: 1 patch Documented By: JETT Metformin HCl (Metformin Hcl 850 Mg Tablet) 850 mg PO BIDWM [facility] [place] Last Admin: 09/12/22 10:47 Dose: 850 mg Documented By: JETT Metoprolol Succinate (Metoprolol Succinate Er 100 Mg Tab.Er.24h) 100 mg PO DAILY [facility] [place] Last Admin: 09/12/22 10:48 Dose: 100 mg Documented By: JETT Ondansetron HCl (Ondansetron Hcl 4 Mg/2 Ml Vial) 4 mg IVPUSH Q8H PRN PRN Reason: Nausea and Vomiting Last Admin: 07/07/22 01:05 Dose: 4 mg Documented By: MARIANN Ondansetron HCl (Ondansetron Hcl 4 Mg/2 Ml Vial) 4 mg IVPUSH ONCE PRN PRN Reason: Nausea and Vomiting Ondansetron HCl (Ondansetron Hcl 4 Mg/2 Ml Vial) 4 mg IVPUSH ONCE PRN PRN Reason: Nausea and Vomiting Polyethylene Glycol (Polyethylene Glycol 3350 17 Gm Powd.Pack) 17 gm PO DAILY PRN PRN Reason: constipation Last Admin: 08/06/22 08:19 Dose: 17 gm Documented By: ADRIANA Sodium Chloride (0.9 % Sodium Chloride Flush 3 Ml Syringe) 3 ml IVFLUSH QSHIFT [facility] [place] Last Admin: 09/12/22 08:47 Dose: Not Given Documented By: JETT Non-Admin Reason: No Access Sodium Hypochlorite (Sodium Hypochlorite 0.25% 473 Ml Solution) 1 appl TOPICAL BID [facility] [place] Last Admin: 09/12/22 10:50 Dose: 1 appl Documented By: JETT Tamsulosin HCl (Tamsulosin Hcl 0.4 Mg Capsule) 0.8 mg PO DAILY [facility] [place] Last Admin: 09/12/22 10:47 Dose: 0.8 mg Documented By: JETT Zinc Acetate/Diphenhydramine (Diphenhydramine Hcl 2 % Cream 28 Gm Tube) 1 appl TOPICAL TID PRN; Protocol PRN Reason: itching Labs 09/04/22 08:33 09/08/22 06:15 Labs: Laboratory Results - last 24 hr 09/11/22 09/11/22 09/12/22 15:49 19:29 07:26 POC Glucose 154 H 173 H 68 09/12/22 09/12/22 08:38 11:49 POC Glucose 143 H 232 H Assessment and Plan (1) Stage 4 decubitus ulcer: Status: Acute Plan 74yo M with DM2, HTN, HLD, chronic venous stasis dermatitis presented with mechanical fall, admitted for hypoxia due to PNA cough--ccovid and cxr negative Sacral decubitus ulcer.? Unstageable, necrotic 10cm x10 cm with 4 cm depth frequent turn,air loss? bed ,continue wound care Improving s/p debridements 07/08, 07/17, 08/05 s/p wound vac placement 07/22/22 - removed 07/25 after it became soiled continue wet to dry dressings , being followed by General surgery- d/w surgery - wound vac not helping and would avoid Atrial flutter/fib, rate stable LVEF >70% continue toprol xl and Eliquis Episode of SVT vs atrial tachycardia 07/26 HR improved with IV Lopressor, finish loading dose of amiodarone and started on amiodarone 200 mg by mouth daily on August 07, continue Toprol XL Acute blood loss anemia. Resolved s/p blood loss at site of decub ulcer patient received 2 unit of packed RBC continue ferrous sulfate b.i.d. H/H stable CBC check periodically Traumatic SAH CT brain 06/26 ? New small areas of extra-axial hemorrhage adjacent to the left posterior parietal lobe, bilateral occipital lobes and in the occipital horns of both lateral ventricles, repeat CT 06/28 unchanged seen by neuro - AC was held for two weeks no headache, no dizziness No other complications Acute hypoxic respiratory failure due to PNA. Resolved finished 10d of ABX back on room air Urinary retention failed voiding trial x2 continue tamsulosin and finasteride seen by urology, continue roberts upon discharge - outpatient urology follow up Hyponatremia resolved s/p urea cortisol, TSH wnl Mechanical fall difficulty ambulating; awaiting SNF placement, PT has been working with him I do not think he will walk again generalized weakness 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 but not clinically NPH per Neurology incidental 1.3cm pancreatic lesions may reflect adjacent pancreatic cysts outpt MRI/MRCP DM2? : fs acceptable continue Lantus, SSI adjusted . HTN Stable blood pressures, continue metoprolol losartan and hydralazine discontinued due to soft blood pressures HLD statin b/l eye dryness -? tear ( clear tearin,no erythema or pain or vision change) added tear drops cough 2/4, CXR no pna VTE ppx: SCDs,? eliquis Full code ongoin? 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 Quality Stroke Does the patient have a stroke diagnosis?: No VTE Prior VTE?: No VTE Risk Level:: Medical - moderate - high VTE Device Contraindication: Treatment Not Indicated VTE Drug Contraindication: N/A - Med Ordered
[2022-09-12 15:40] VITALS: BP 134/65; PULSE 85; RESP 18; TEMP 36.8; O2SAT 97
[2022-09-12 16:21] LABS: Glucose, Whole Blood 168 mg/dL (60-115)
[2022-09-12 19:22] VITALS: BP 104/51; PULSE 90; RESP 18; TEMP 36.3; O2SAT 96
[2022-09-12] MEDS: Insulin Glargine,Hum.rec.anlog 100 UNIT/ML 10 ML VIAL SUBCUT (20:02)
[2022-09-12] MEDS: Acetaminophen 325 MG TABLET 650 MG PO (20:02)
[2022-09-12 21:19] LABS: Glucose, Whole Blood 174 mg/dL (60-115)
[2022-09-13 03:45] VITALS: BP 123/59; PULSE 79; RESP 17; TEMP 36.7; O2SAT 98
[2022-09-13 07:23] LABS: Glucose, Whole Blood 97 mg/dL (60-115)
[2022-09-13 08:00] VITALS: BP 127/57; PULSE 86; RESP 18; TEMP 36.6; O2SAT 97
[2022-09-13] MEDS: Lidocaine 4 % Patch ADH..PATCH 1 PATCH TRANSDERMA (08:52)
[2022-09-13] MEDS: Tamsulosin HCL 0.4 MG CAPSULE 0.8 MG PO (08:52)
[2022-09-13] MEDS: Apixaban 5 MG TABLET PO ×2 (08:53→20:40)
[2022-09-13] MEDS: Amiodarone HCL 200 MG TABLET PO (08:53)
[2022-09-13] MEDS: Metoprolol Succinate ER 100 MG TAB.ER.24H PO (08:53)
[2022-09-13] MEDS: metFORMIN HCl 850 MG TABLET PO ×2 (08:53→16:31)
[2022-09-13] MEDS: Finasteride 5 MG TABLET PO (08:53)
[2022-09-13] MEDS: Ferrous Sulfate 324 MG TABLET.DR PO ×2 (08:53→16:31)
--- NOTE | 2022-09-13 11:00 | MHC.CM.PN ---
EMR REVIEWED. PT REMAINS CLEARED FOR DC, NO LTC BED OFFERS AT THIS TIME. AWAITING PLACEMENT. UPDATES SENT TO FOLLOWING SNF'S.
[2022-09-13 11:37] LABS: Glucose, Whole Blood 216 mg/dL (60-115)
[2022-09-13] MEDS: Insulin Lispro 100 UNIT/ML 3 ML VIAL SUBCUT ×3 (11:56→20:40)
--- NOTE | 2022-09-13 14:08 | MHC.CLN ---
F/U PO INTAKE MOST MEALS 100%. DIET RX: DIABETIC 2200 KCALS-APPROPRIATE. GLUCERNA TID PROVIDES ADDITIONAL 710 KCALS, 30 G PROTEIN. SKIN CONTINUES WITH STAGE IV TO COCCYX/SACRUM. CONTINUE TO MONITOR PO INTAKE AND SUPPLEMENT ACCEPTANCE. RD TO CONTINUE TO FOLLOW WEEKLY.
--- NOTE | 2022-09-13 15:22 | HO.PM.IMPN ---
Subjective Subjective Date of Service: 09/13/22 Interval History: follow up for decubtii Review of Systems no new c/o. denies any chest pain or sob or nausea/vomiting Physical Exam Vital Signs: Vital Signs: Last Vital Signs Temp 97.8 F 09/13/22 08:00 Pulse 86 09/13/22 08:00 Resp 18 09/13/22 08:00 BP 127/57 L 09/13/22 08:00 Pulse Ox 97 09/13/22 08:00 O2 Del Method 09/13/22 08:00 O2 Flow Rate 2 09/04/22 12:48 BMI result Body Mass Index 26.6 ?General: AO X 1, no acute distress Eyes: b/l teraing , no pain or erythema Resp:? CTA bilateral CVS: S1,S2,RRR GI: +BS, NT, no distention Skin: decub ulcer stable Neuro:? motor grossly intact Psych: appropriate affect Objective Data Active Medications Amiodarone HCl (Amiodarone Hcl 200 Mg Tablet) 200 mg PO DAILY [facility] Last Admin: 09/13/22 08:53 Dose: 200 mg Documented By: JETT Apixaban (Apixaban 5 Mg Tablet) 5 mg PO BID [facility] Last Admin: 09/13/22 08:53 Dose: 5 mg Documented By: JETT Artificial Tears (Artificial Tears 15 Ml Drops) 1 drop EYE-BOTH Q4H PRN PRN Reason: tearin Last Admin: 09/02/22 20:26 Dose: 1 drop Documented By: NARCISO Benzocaine (Throat Lozenge, Medicated Lozenge) 1 lozenge MUCOUS MEM Q2H PRN PRN Reason: Sore Throat Ferrous Sulfate (Ferrous Sulfate 324 Mg Tablet.Dr) 324 mg PO BIDWM [facility] Last Admin: 09/13/22 08:53 Dose: 324 mg Documented By: JETT Finasteride (Finasteride 5 Mg Tablet) 5 mg PO DAILY [facility] Last Admin: 09/13/22 08:53 Dose: 5 mg Documented By: JETT Guaifenesin (Guaifenesin 100 Mg/5 Ml Liquid) 5 ml PO Q6H PRN PRN Reason: Cough Insulin Glargine (Insulin Glargine,Hum.Rec.Anlog 100 Unit/Ml 10 Ml Vial) 5 unit SUBCUT BEDTIME [facility] Last Admin: 09/12/22 20:02 Dose: 5 unit Documented By: RIC Insulin Glargine (Insulin Glargine,Hum.Rec.Anlog 100 Unit/Ml 10 Ml Vial) 25 unit SUBCUT DAILY@0730 [facility] Last Admin: 09/13/22 07:37 Dose: Not Given Documented By: JETT Non-Admin Reason: poc 97; held Insulin Human Lispro (Insulin Lispro 100 Unit/Ml 3 Ml Vial) 0 unit SUBCUT QIDACHS [facility]; Protocol Last Admin: 09/13/22 11:56 Dose: 6 unit Documented By: JETT Lidocaine (Lidocaine 4 % Patch Adh..Patch) 1 patch TRANSDERMA DAILY [facility]; Protocol Last Admin: 09/13/22 08:52 Dose: 1 patch Documented By: JETT Metformin HCl (Metformin Hcl 850 Mg Tablet) 850 mg PO BIDWM [facility] Last Admin: 09/13/22 08:53 Dose: 850 mg Documented By: JETT Metoprolol Succinate (Metoprolol Succinate Er 100 Mg Tab.Er.24h) 100 mg PO DAILY [facility] Last Admin: 09/13/22 08:53 Dose: 100 mg Documented By: JETT Ondansetron HCl (Ondansetron Hcl 4 Mg/2 Ml Vial) 4 mg IVPUSH ONCE PRN PRN Reason: Nausea and Vomiting Ondansetron HCl (Ondansetron Hcl 4 Mg/2 Ml Vial) 4 mg IVPUSH ONCE PRN PRN Reason: Nausea and Vomiting Sodium Chloride (0.9 % Sodium Chloride Flush 3 Ml Syringe) 3 ml IVFLUSH QSHIFT [facility] Last Admin: 09/13/22 15:06 Dose: Not Given Documented By: JETT Non-Admin Reason: No Access Sodium Hypochlorite (Sodium Hypochlorite 0.25% 473 Ml Solution) 1 appl TOPICAL BID [facility] Last Admin: 09/13/22 08:53 Dose: 1 appl Documented By: JETT Tamsulosin HCl (Tamsulosin Hcl 0.4 Mg Capsule) 0.8 mg PO DAILY [facility] Last Admin: 09/13/22 08:52 Dose: 0.8 mg Documented By: JETT Zinc Acetate/Diphenhydramine (Diphenhydramine Hcl 2 % Cream 28 Gm Tube) 1 appl TOPICAL TID PRN; Protocol PRN Reason: itching Labs 09/04/22 08:33 09/08/22 06:15 Labs: Laboratory Results - last 24 hr 09/12/22 09/12/22 09/13/22 16:18 21:15 07:07 POC Glucose 168 H 174 H 97 09/13/22 11:27 POC Glucose 216 H Assessment and Plan (1) Stage 4 decubitus ulcer: Status: Acute Plan 74yo M with DM2, HTN, HLD, chronic venous stasis dermatitis presented with mechanical fall, admitted for hypoxia due to PNA cough--ccovid and cxr negative Sacral decubitus ulcer.? Unstageable, necrotic 10cm x10 cm with 4 cm depth frequent turn,air loss? bed ,continue wound care Improving s/p debridements 07/08, 07/17, 12 s/p wound vac placement 07/22/22 - removed 07/25 after it became soiled continue wet to dry dressings , being followed by General surgery- d/w surgery - wound vac not helping and would avoid Atrial flutter/fib, rate stable LVEF >70% continue toprol xl and Eliquis Episode of SVT vs atrial tachycardia 07/26 HR improved with IV Lopressor, finish loading dose of amiodarone and started on amiodarone 200 mg by mouth daily on August 07, continue Toprol XL Acute blood loss anemia. Resolved s/p blood loss at site of decub ulcer patient received 2 unit of packed RBC continue ferrous sulfate b.i.d. H/H stable CBC check periodically Traumatic SAH CT brain 06/26 ? New small areas of extra-axial hemorrhage adjacent to the left posterior parietal lobe, bilateral occipital lobes and in the occipital horns of both lateral ventricles, repeat CT 06/28 unchanged seen by neuro - AC was held for two weeks no headache, no dizziness No other complications Acute hypoxic respiratory failure due to PNA. Resolved finished 10d of ABX back on room air Urinary retention failed voiding trial x2 continue tamsulosin and finasteride seen by urology, continue roberts upon discharge - outpatient urology follow up Hyponatremia resolved s/p urea cortisol, TSH wnl Mechanical fall difficulty ambulating; awaiting SNF placement, PT has been working with him I do not think he will walk again generalized weakness 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 but not clinically NPH per Neurology incidental 1.3cm pancreatic lesions may reflect adjacent pancreatic cysts outpt MRI/MRCP DM2? : fs acceptable continue Lantus, SSI adjusted . HTN Stable blood pressures, continue metoprolol losartan and hydralazine discontinued due to soft blood pressures HLD statin b/l eye dryness -? tear ( clear tearin,no erythema or pain or vision change) added tear drops cough 2/4, CXR no pna VTE ppx: SCDs,? eliquis Full code ongoin? 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 Quality Stroke Does the patient have a stroke diagnosis?: No VTE Prior VTE?: No VTE Risk Level:: Medical - moderate - high VTE Device Contraindication: Treatment Not Indicated VTE Drug Contraindication: N/A - Med Ordered
[2022-09-13 15:56] VITALS: BP 124/58; PULSE 89; RESP 18; TEMP 36.6; O2SAT 95
[2022-09-13 16:13] LABS: Glucose, Whole Blood 219 mg/dL (60-115)
[2022-09-13] MEDS: Acetaminophen 325 MG TABLET 650 MG PO (16:31)
[2022-09-13 19:48] LABS: Glucose, Whole Blood 178 mg/dL (60-115)
[2022-09-13 20:00] VITALS: BP 126/64; PULSE 83; RESP 18; TEMP 36.8; O2SAT 96
[2022-09-13] MEDS: Insulin Glargine,Hum.rec.anlog 100 UNIT/ML 10 ML VIAL SUBCUT (20:40)
[2022-09-14 04:00] VITALS: BP 142/63; PULSE 82; RESP 18; TEMP 36.4; O2SAT 94
[2022-09-14 07:43] VITALS: BP 132/64; PULSE 81; RESP 18; TEMP 36.8; O2SAT 97
[2022-09-14 07:54] LABS: Glucose, Whole Blood 110 mg/dL (60-115)
[2022-09-14] MEDS: Tamsulosin HCL 0.4 MG CAPSULE 0.8 MG PO (08:39)
[2022-09-14] MEDS: metFORMIN HCl 850 MG TABLET PO ×2 (08:39→17:15)
[2022-09-14] MEDS: Amiodarone HCL 200 MG TABLET PO (08:39)
[2022-09-14] MEDS: Finasteride 5 MG TABLET PO (08:39)
[2022-09-14] MEDS: Ferrous Sulfate 324 MG TABLET.DR PO ×2 (08:39→17:16)
[2022-09-14] MEDS: Lidocaine 4 % Patch ADH..PATCH 1 PATCH TRANSDERMA (08:39)
[2022-09-14] MEDS: Insulin Glargine,Hum.rec.anlog 100 UNIT/ML 10 ML VIAL 25 UNIT SUBCUT (08:40)
[2022-09-14] MEDS: Apixaban 5 MG TABLET PO ×2 (08:40→20:31)
[2022-09-14] MEDS: Metoprolol Succinate ER 100 MG TAB.ER.24H PO (08:40)
[2022-09-14 11:07] LABS: Glucose, Whole Blood 178 mg/dL (60-115)
[2022-09-14] MEDS: Insulin Lispro 100 UNIT/ML 3 ML VIAL SUBCUT ×2 (12:04→20:31)
--- NOTE | 2022-09-14 13:06 | P.PNIM_ITS ---
Subjective Subjective Date of Service: 09/14/22 Interval History: follow up for decubtii Review of Systems no new c/o. denies any chest pain or sob or nausea/vomiting Physical Exam Vital Signs: Vital Signs: Last Vital Signs Temp 98.2 F 09/14/22 07:43 Pulse 81 09/14/22 07:43 Resp 18 09/14/22 07:43 BP 132/64 09/14/22 07:43 Pulse Ox 97 09/14/22 07:43 O2 Del Method 09/14/22 07:43 O2 Flow Rate 2 09/04/22 12:48 BMI result Body Mass Index 26.6 General: AO X 1, no acute distress Eyes: b/l teraing , no pain or erythema Resp:? CTA bilateral CVS: S1,S2,RRR GI: +BS, NT, no distention Skin: decub ulcer stable Neuro:? motor grossly intact Psych: appropriate affect Objective Data Active Medications Acetaminophen (Acetaminophen 325 Mg Tablet) 650 mg PO Q6H PRN PRN Reason: Pain, Mild (Pain Scale 1-3) Last Admin: 09/13/22 16:31 Dose: 650 mg Documented By: JETT Amiodarone HCl (Amiodarone Hcl 200 Mg Tablet) 200 mg PO DAILY [facility] Last Admin: 09/14/22 08:39 Dose: 200 mg Documented By: BARB Apixaban (Apixaban 5 Mg Tablet) 5 mg PO BID [facility] Last Admin: 09/14/22 08:40 Dose: 5 mg Documented By: BARB Artificial Tears (Artificial Tears 15 Ml Drops) 1 drop EYE-BOTH Q4H PRN PRN Reason: tearin Last Admin: 09/02/22 20:26 Dose: 1 drop Documented By: NARCISO Benzocaine (Throat Lozenge, Medicated Lozenge) 1 lozenge MUCOUS MEM Q2H PRN PRN Reason: Sore Throat Dextrose (Dextrose 50 % 25 Gm/50 Ml Syringe) 25 gm IVPUSH Q15M PRN; Protocol PRN Reason: per Hypoglycemia Standing Ord. Ferrous Sulfate (Ferrous Sulfate 324 Mg Tablet.) 324 mg PO BIDWM [facility] Last Admin: 09/14/22 08:39 Dose: 324 mg Documented By: BARB Finasteride (Finasteride 5 Mg Tablet) 5 mg PO DAILY [facility] Last Admin: 09/14/22 08:39 Dose: 5 mg Documented By: BARB Glucose (Glucose Gel 15 Gm Gel..Gram.) 15 gm PO Q15M PRN; Protocol PRN Reason: per Hypoglycemia Standing Ord. Guaifenesin (Guaifenesin 100 Mg/5 Ml Liquid) 5 ml PO Q6H PRN PRN Reason: Cough Insulin Glargine (Insulin Glargine,Hum.Rec.Anlog 100 Unit/Ml 10 Ml Vial) 5 unit SUBCUT BEDTIME [facility] Last Admin: 09/13/22 20:40 Dose: 5 unit Documented By: LYSJudith Insulin Glargine (Insulin Glargine,Hum.Rec.Anlog 100 Unit/Ml 10 Ml Vial) 25 unit SUBCUT DAILY@0730 [facility] Last Admin: 09/14/22 08:40 Dose: 25 unit Documented By: BARB Insulin Human Lispro (Insulin Lispro 100 Unit/Ml 3 Ml Vial) 0 unit SUBCUT QIDACHS [facility]; Protocol Last Admin: 09/14/22 12:04 Dose: 2 unit Documented By: BARB Lidocaine (Lidocaine 4 % Patch Adh..Patch) 1 patch TRANSDERMA DAILY [facility]; Protocol Last Admin: 09/14/22 08:39 Dose: 1 patch Documented By: BARB Metformin HCl (Metformin Hcl 850 Mg Tablet) 850 mg PO BIDWM [facility] Last Admin: 09/14/22 08:39 Dose: 850 mg Documented By: BARB Metoprolol Succinate (Metoprolol Succinate Er 100 Mg Tab.Er.24h) 100 mg PO EZRA Y [facility] Last Admin: 09/14/22 08:40 Dose: 100 mg Documented By: BARB Ondansetron HCl (Ondansetron Hcl 4 Mg/2 Ml Vial) 4 mg IVPUSH ONCE PRN PRN Reason: Nausea and Vomiting Ondansetron HCl (Ondansetron Hcl 4 Mg/2 Ml Vial) 4 mg IVPUSH ONCE PRN PRN Reason: Nausea and Vomiting Sodium Hypochlorite (Sodium Hypochlorite 0.25% 473 Ml Solution) 1 appl TOPICAL BID [facility] Last Admin: 09/14/22 12:05 Dose: 1 appl Documented By: BARB Tamsulosin HCl (Tamsulosin Hcl 0.4 Mg Capsule) 0.8 mg PO DAILY [facility] Last Admin: 09/14/22 08:39 Dose: 0.8 mg Documented By: BARB Zinc Acetate/Diphenhydramine (Diphenhydramine Hcl 2 % Cream 28 Gm Tube) 1 appl TOPICAL TID PRN; Protocol PRN Reason: itching Labs 09/04/22 08:33 09/08/22 06:15 Labs: Laboratory Results - last 24 hr 09/13/22 09/13/22 09/14/22 15:59 19:37 07:40 POC Glucose 219 H 178 H 110 09/14/22 11:02 POC Glucose 178 H Assessment and Plan (1) Stage 4 decubitus ulcer: Status: Acute Plan 74yo M with DM2, HTN, HLD, chronic venous stasis dermatitis presented with mechanical fall, admitted for hypoxia due to PNA cough--ccovid and cxr negative Sacral decubitus ulcer.? Unstageable, necrotic 10cm x10 cm with 4 cm depth frequent turn,air loss? bed ,continue wound care Improving s/p debridements 07/08, 07/17, 1/2 s/p wound vac placement 07/22/22 - removed 07/25 after it became soiled continue wet to dry dressings , being followed by General surgery- d/w surgery - wound vac not helping and would avoid Atrial flutter/fib, rate stable LVEF >70% continue toprol xl and Eliquis Episode of SVT vs atrial tachycardia 07/26 HR improved with IV Lopressor, finish loading dose of amiodarone and started on amiodarone 200 mg by mouth daily on August 07, continue Toprol XL Acute blood loss anemia. Resolved s/p blood loss at site of decub ulcer patient received 2 unit of packed RBC continue ferrous sulfate b.i.d. H/H stable CBC check periodically Traumatic SAH CT brain 06/26 ? New small areas of extra-axial hemorrhage adjacent to the left posterior parietal lobe, bilateral occipital lobes and in the occipital horns of both lateral ventricles, repeat CT 06/28 unchanged seen by neuro - AC was held for two weeks no headache, no dizziness No other complications Acute hypoxic respiratory failure due to PNA. Resolved finished 10d of ABX back on room air Urinary retention failed voiding trial x2 continue tamsulosin and finasteride seen by urology, continue roberts upon discharge - outpatient urology follow up Hyponatremia resolved s/p urea cortisol, TSH wnl Mechanical fall difficulty ambulating; awaiting SNF placement, PT has been working with him I do not think he will walk again generalized weakness 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 but not clinically NPH per Neurology incidental 1.3cm pancreatic lesions may reflect adjacent pancreatic cysts outpt MRI/MRCP DM2? : fs acceptable continue Lantus, SSI adjusted . HTN Stable blood pressures, continue metoprolol losartan and hydralazine discontinued due to soft blood pressures HLD statin b/l eye dryness -? tear ( clear tearin,no erythema or pain or vision change) added tear drops cough 2/4, CXR no pna VTE ppx: SCDs,? eliquis Full code ongoin? 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 Quality Stroke Does the patient have a stroke diagnosis?: No VTE Prior VTE?: No VTE Risk Level:: Medical - moderate - high VTE Device Contraindication: Treatment Not Indicated VTE Drug Contraindication: N/A - Med Ordered
[2022-09-14] MEDS: Acetaminophen 325 MG TABLET 650 MG PO (14:26)
[2022-09-14 15:18] VITALS: BP 132/55; PULSE 82; RESP 18; TEMP 37; O2SAT 97
[2022-09-14 16:26] LABS: Glucose, Whole Blood 139 mg/dL (60-115)
[2022-09-14 19:19] VITALS: BP 121/56; PULSE 84; RESP 18; TEMP 37; O2SAT 93
[2022-09-14 20:14] LABS: Glucose, Whole Blood 206 mg/dL (60-115)
[2022-09-14] MEDS: Insulin Glargine,Hum.rec.anlog 100 UNIT/ML 10 ML VIAL SUBCUT (20:31)
[2022-09-15 03:19] VITALS: BP 139/65; PULSE 83; RESP 18; TEMP 36.6; O2SAT 95
[2022-09-15] MEDS: Acetaminophen 325 MG TABLET 650 MG PO ×3 (06:35→23:45)
[2022-09-15 07:23] LABS: Creatinine Clr Calc Pharmacy 127.4; Estimated Glomerular Filt Rate > 60
[2022-09-15 07:45] LABS: Glucose, Whole Blood 97 mg/dL (60-115)
[2022-09-15 07:56] VITALS: BP 120/55; PULSE 82; RESP 18; TEMP 36.6; O2SAT 96
[2022-09-15] MEDS: Ferrous Sulfate 324 MG TABLET.DR PO ×2 (08:05→16:40)
[2022-09-15] MEDS: Insulin Glargine,Hum.rec.anlog 100 UNIT/ML 10 ML VIAL 25 UNIT SUBCUT (08:05)
[2022-09-15] MEDS: Metoprolol Succinate ER 100 MG TAB.ER.24H PO (08:05)
[2022-09-15] MEDS: Lidocaine 4 % Patch ADH..PATCH 1 PATCH TRANSDERMA (08:06)
[2022-09-15] MEDS: Tamsulosin HCL 0.4 MG CAPSULE 0.8 MG PO (08:06)
[2022-09-15] MEDS: Apixaban 5 MG TABLET PO ×2 (08:06→20:55)
[2022-09-15] MEDS: Amiodarone HCL 200 MG TABLET PO (08:06)
[2022-09-15] MEDS: Finasteride 5 MG TABLET PO (08:06)
--- NOTE | 2022-09-15 09:26 | HO.PM.IMPN ---
Subjective Subjective Date of Service: 09/15/22 Interval History: follow up for decubtii Review of Systems no new c/o. denies any chest pain or sob or nausea/vomiting Physical Exam Vital Signs: Vital Signs: Last Vital Signs Temp 97.8 F 09/15/22 07:56 Pulse 82 09/15/22 07:56 Resp 18 09/15/22 07:56 BP 120/55 L 09/15/22 07:56 Pulse Ox 96 09/15/22 07:56 O2 Del Method 09/15/22 07:56 O2 Flow Rate 2 09/04/22 12:48 BMI result Body Mass Index 26.6 General: AO X 1, no acute distress Eyes: b/l teraing , no pain or erythema Resp:? CTA bilateral CVS: S1,S2,RRR GI: +BS, NT, no distention Skin: decub ulcer stable Neuro:? motor grossly intact Psych: appropriate affect Objective Data Active Medications Acetaminophen (Acetaminophen 325 Mg Tablet) 650 mg PO Q6H PRN PRN Reason: Pain, Mild (Pain Scale 1-3) Last Admin: 09/15/22 06:35 Dose: 650 mg Documented By: MARIANN Amiodarone HCl (Amiodarone Hcl 200 Mg Tablet) 200 mg PO DAILY [facility] Last Admin: 09/15/22 08:06 Dose: 200 mg Documented By: BARB Apixaban (Apixaban 5 Mg Tablet) 5 mg PO BID [facility] Last Admin: 09/15/22 08:06 Dose: 5 mg Documented By: BARB Artificial Tears (Artificial Tears 15 Ml Drops) 1 drop EYE-BOTH Q4H PRN PRN Reason: tearin Last Admin: 09/02/22 20:26 Dose: 1 drop Documented By: NARCISO Benzocaine (Throat Lozenge, Medicated Lozenge) 1 lozenge MUCOUS MEM Q2H PRN PRN Reason: Sore Throat Dextrose (Dextrose 50 % 25 Gm/50 Ml Syringe) 25 gm IVPUSH Q15M PRN; Protocol PRN Reason: per Hypoglycemia Standing Ord. Ferrous Sulfate (Ferrous Sulfate 324 Mg Tablet.) 324 mg PO BIDWM [facility] Last Admin: 09/15/22 08:05 Dose: 324 mg Documented By: BARB Finasteride (Finasteride 5 Mg Tablet) 5 mg PO DAILY [facility] Last Admin: 09/15/22 08:06 Dose: 5 mg Documented By: BARB Glucose (Glucose Gel 15 Gm Gel..Gram.) 15 gm PO Q15M PRN; Protocol PRN Reason: per Hypoglycemia Standing Ord. Guaifenesin (Guaifenesin 100 Mg/5 Ml Liquid) 5 ml PO Q6H PRN PRN Reason: Cough Insulin Glargine (Insulin Glargine,Hum.Rec.Anlog 100 Unit/Ml 10 Ml Vial) 5 unit SUBCUT BEDTIME [facility] Last Admin: 09/14/22 20:31 Dose: 5 unit Documented By: MARIANN Insulin Glargine (Insulin Glargine,Hum.Rec.Anlog 100 Unit/Ml 10 Ml Vial) 25 unit SUBCUT DAILY@0730 [facility] Last Admin: 09/15/22 08:05 Dose: 25 unit Documented By: BARB Insulin Human Lispro (Insulin Lispro 100 Unit/Ml 3 Ml Vial) 0 unit SUBCUT QIDACHS [facility]; Protocol Last Admin: 09/14/22 20:31 Dose: 4 unit Documented By: MARIANN Lidocaine (Lidocaine 4 % Patch Adh..Patch) 1 patch TRANSDERMA DAILY [facility]; Protocol Last Admin: 09/15/22 08:06 Dose: 1 patch Documented By: BARB Metformin HCl (Metformin Hcl 850 Mg Tablet) 850 mg PO BIDWM [facility] Last Admin: 09/14/22 17:15 Dose: 850 mg Documented By: BARB Metoprolol Succinate (Metoprolol Succinate Er 100 Mg Tab.Er.24h) 100 mg PO DAILY [facility] Last Admin: 09/15/22 08:05 Dose: 100 mg Documented By: BARB Ondansetron HCl (Ondansetron Hcl 4 Mg/2 Ml Vial) 4 mg IVPUSH ONCE PRN PRN Reason: Nausea and Vomiting Ondansetron HCl (Ondansetron Hcl 4 Mg/2 Ml Vial) 4 mg IVPUSH ONCE PRN PRN Reason: Nausea and Vomiting Sodium Hypochlorite (Sodium Hypochlorite 0.25% 473 Ml Solution) 1 appl TOPICAL BID [facility] Last Admin: 09/15/22 08:06 Dose: 1 appl Documented By: BARB Tamsulosin HCl (Tamsulosin Hcl 0.4 Mg Capsule) 0.8 mg PO DAILY [facility] Last Admin: 09/15/22 08:06 Dose: 0.8 mg Documented By: BARB Zinc Acetate/Diphenhydramine (Diphenhydramine Hcl 2 % Cream 28 Gm Tube) 1 appl TOPICAL TID PRN; Protocol PRN Reason: itching Labs 09/04/22 08:33 09/15/22 06:06 Labs: Laboratory Results - last 24 hr 09/14/22 09/14/22 09/14/22 11:02 16:10 19:20 Estim Creat Clear Calc Estimated GFR POC Glucose 178 H 139 H 206 H 09/15/22 09/15/22 06:06 07:25 Estim Creat Clear Calc 127.4 Estimated GFR > 60 POC Glucose 97 Assessment and Plan (1) Stage 4 decubitus ulcer: Status: Acute Plan 74yo M with DM2, HTN, HLD, chronic venous stasis dermatitis presented with mechanical fall, admitted for hypoxia due to PNA cough--ccovid and cxr negative Sacral decubitus ulcer.? Unstageable, necrotic 10cm x10 cm with 4 cm depth frequent turn,air loss? bed ,continue wound care Improving s/p debridements 07/08, 07/17, / s/p wound vac placement 07/22/22 - removed 07/25 after it became soiled continue wet to dry dressings , being followed by General surgery- d/w surgery - wound vac not helping and would avoid Atrial flutter/fib, rate stable LVEF >70% continue toprol xl and Eliquis Episode of SVT vs atrial tachycardia 07/26 HR improved with IV Lopressor, finish loading dose of amiodarone and started on amiodarone 200 mg by mouth daily on August 07, continue Toprol XL Acute blood loss anemia. Resolved s/p blood loss at site of decub ulcer patient received 2 unit of packed RBC continue ferrous sulfate b.i.d. H/H stable CBC check periodically Traumatic SAH CT brain 06/26 ? New small areas of extra-axial hemorrhage adjacent to the left posterior parietal lobe, bilateral occipital lobes and in the occipital horns of both lateral ventricles, repeat CT 06/28 unchanged seen by neuro - AC was held for two weeks no headache, no dizziness No other complications Acute hypoxic respiratory failure due to PNA. Resolved finished 10d of ABX back on room air Urinary retention failed voiding trial x2 continue tamsulosin and finasteride seen by urology, continue roberts upon discharge - outpatient urology follow up Hyponatremia resolved s/p urea cortisol, TSH wnl Mechanical fall difficulty ambulating; awaiting SNF placement, PT has been working with him I do not think he will walk again generalized weakness 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 but not clinically NPH per Neurology incidental 1.3cm pancreatic lesions may reflect adjacent pancreatic cysts outpt MRI/MRCP DM2? : fs acceptable continue Lantus, SSI adjusted . HTN Stable blood pressures, continue metoprolol losartan and hydralazine discontinued due to soft blood pressures HLD statin b/l eye dryness -? tear ( clear tearin,no erythema or pain or vision change) added tear drops cough 2/4, CXR no pna VTE ppx: SCDs,? eliquis Full code ongoin? 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 Quality Stroke Does the patient have a stroke diagnosis?: No VTE Prior VTE?: No VTE Risk Level:: Medical - moderate - high VTE Device Contraindication: Treatment Not Indicated VTE Drug Contraindication: N/A - Med Ordered
[2022-09-15] MEDS: metFORMIN HCl 850 MG TABLET PO ×2 (09:35→16:40)
[2022-09-15 11:57] LABS: Glucose, Whole Blood 181 mg/dL (60-115)
[2022-09-15] MEDS: Insulin Lispro 100 UNIT/ML 3 ML VIAL SUBCUT ×2 (12:09→16:40)
[2022-09-15 15:37] VITALS: BP 118/53; PULSE 82; RESP 18; TEMP 36.8; O2SAT 98
[2022-09-15 16:14] LABS: Glucose, Whole Blood 158 mg/dL (60-115)
[2022-09-15 20:00] VITALS: BP 139/63; PULSE 83; RESP 18; TEMP 36.7; O2SAT 98
[2022-09-15 20:48] LABS: Glucose, Whole Blood 135 mg/dL (60-115)
[2022-09-15] MEDS: Insulin Glargine,Hum.rec.anlog 100 UNIT/ML 10 ML VIAL SUBCUT (20:54)
[2022-09-16 03:28] VITALS: BP 129/59; PULSE 82; RESP 18; TEMP 36.2; O2SAT 98
[2022-09-16 07:12] VITALS: BP 116/60; PULSE 79; RESP 18; TEMP 36.6; O2SAT 97
[2022-09-16 07:19] LABS: Glucose, Whole Blood 89 mg/dL (60-115)
[2022-09-16] MEDS: Insulin Glargine,Hum.rec.anlog 100 UNIT/ML 10 ML VIAL 25 UNIT SUBCUT (07:56)
[2022-09-16] MEDS: Ferrous Sulfate 324 MG TABLET.DR PO ×2 (07:56→17:50)
[2022-09-16] MEDS: Amiodarone HCL 200 MG TABLET PO (07:57)
[2022-09-16] MEDS: Lidocaine 4 % Patch ADH..PATCH 1 PATCH TRANSDERMA (07:57)
[2022-09-16] MEDS: Metoprolol Succinate ER 100 MG TAB.ER.24H PO (07:57)
[2022-09-16] MEDS: metFORMIN HCl 850 MG TABLET PO ×2 (07:57→17:50)
[2022-09-16] MEDS: Apixaban 5 MG TABLET PO ×2 (07:57→19:56)
[2022-09-16] MEDS: Finasteride 5 MG TABLET PO (07:57)
[2022-09-16] MEDS: Tamsulosin HCL 0.4 MG CAPSULE 0.8 MG PO (07:57)
[2022-09-16 11:21] LABS: Glucose, Whole Blood 259 mg/dL (60-115)
--- NOTE | 2022-09-16 11:29 | P.PNIM_ITS ---
Subjective Subjective Date of Service: 09/16/22 Interval History: follow up for decubtii Review of Systems no new c/o. denies any chest pain or sob or nausea/vomiting Physical Exam Vital Signs: Vital Signs: Last Vital Signs Temp 97.8 F 09/16/22 07:12 Pulse 79 09/16/22 07:12 Resp 18 09/16/22 07:12 BP 116/60 09/16/22 07:12 Pulse Ox 97 09/16/22 07:12 O2 Del Method 09/16/22 07:12 O2 Flow Rate 2 09/04/22 12:48 BMI result Body Mass Index 26.6 General: AO X 1, no acute distress Eyes: b/l teraing , no pain or erythema Resp:? CTA bilateral CVS: S1,S2,RRR GI: +BS, NT, no distention Skin: decub ulcer stable Neuro:? motor grossly intact Psych: appropriate affect Objective Data Active Medications Acetaminophen (Acetaminophen 325 Mg Tablet) 650 mg PO Q6H PRN PRN Reason: Pain, Mild (Pain Scale 1-3) Last Admin: 09/15/22 23:45 Dose: 650 mg Documented By: JANICE Amiodarone HCl (Amiodarone Hcl 200 Mg Tablet) 200 mg PO DAILY [facility] Last Admin: 09/16/22 07:57 Dose: 200 mg Documented By: TONNY Apixaban (Apixaban 5 Mg Tablet) 5 mg PO BID [facility] Last Admin: 09/16/22 07:57 Dose: 5 mg Documented By: TONNY Artificial Tears (Artificial Tears 15 Ml Drops) 1 drop EYE-BOTH Q4H PRN PRN Reason: tearin Last Admin: 09/02/22 20:26 Dose: 1 drop Documented By: NARCISO Benzocaine (Throat Lozenge, Medicated Lozenge) 1 lozenge MUCOUS MEM Q2H PRN PRN Reason: Sore Throat Dextrose (Dextrose 50 % 25 Gm/50 Ml Syringe) 25 gm IVPUSH Q15M PRN; Protocol PRN Reason: per Hypoglycemia Standing Ord. Ferrous Sulfate (Ferrous Sulfate 324 Mg Tablet.) 324 mg PO BIDWM [facility] Last Admin: 09/16/22 07:56 Dose: 324 mg Documented By: TONNY Finasteride (Finasteride 5 Mg Tablet) 5 mg PO DAILY [facility] Last Admin: 09/16/22 07:57 Dose: 5 mg Documented By: TONNY Glucose (Glucose Gel 15 Gm Gel..Gram.) 15 gm PO Q15M PRN; Protocol PRN Reason: per Hypoglycemia Standing Ord. Guaifenesin (Guaifenesin 100 Mg/5 Ml Liquid) 5 ml PO Q6H PRN PRN Reason: Cough Insulin Glargine (Insulin Glargine,Hum.Rec.Anlog 100 Unit/Ml 10 Ml Vial) 5 unit SUBCUT BEDTIME [facility] Last Admin: 09/15/22 20:54 Dose: 5 unit Documented By: ODRISCinthya Insulin Glargine (Insulin Glargine,Hum.Rec.Anlog 100 Unit/Ml 10 Ml Vial) 25 unit SUBCUT DAILY@0730 [facility] Last Admin: 09/16/22 07:56 Dose: 25 unit Documented By: TONNY Insulin Human Lispro (Insulin Lispro 100 Unit/Ml 3 Ml Vial) 0 unit SUBCUT QIDACHS [facility]; Protocol Last Admin: 09/16/22 07:21 Dose: Not Given Documented By: TONNY Non-Admin Reason: No Insulin Coverage Lidocaine (Lidocaine 4 % Patch Adh..Patch) 1 patch TRANSDERMA DAILY [facility]; Protocol Last Admin: 09/16/22 07:57 Dose: 1 patch Documented By: TONNY Metformin HCl (Metformin Hcl 850 Mg Tablet) 850 mg PO BIDWM [facility] Last Admin: 09/16/22 07:57 Dose: 850 mg Documented By: TONNY Metoprolol Succinate (Metoprolol Succinate Er 100 Mg Tab.Er.24h) 100 mg PO DAILY [facility] Last Admin: 09/16/22 07:57 Dose: 100 mg Documented By: TONNY Ondansetron HCl (Ondansetron Hcl 4 Mg/2 Ml Vial) 4 mg IVPUSH ONCE PRN PRN Reason: Nausea and Vomiting Ondansetron HCl (Ondansetron Hcl 4 Mg/2 Ml Vial) 4 mg IVPUSH ONCE PRN PRN Reason: Nausea and Vomiting Sodium Hypochlorite (Sodium Hypochlorite 0.25% 473 Ml Solution) 1 appl TOPICAL BID [facility] Last Admin: 09/16/22 07:58 Dose: 1 appl Documented By: TONNY Tamsulosin HCl (Tamsulosin Hcl 0.4 Mg Capsule) 0.8 mg PO DAILY [facility] Last Admin: 09/16/22 07:57 Dose: 0.8 mg Documented By: TONNY Zinc Acetate/Diphenhydramine (Diphenhydramine Hcl 2 % Cream 28 Gm Tube) 1 appl TOPICAL TID PRN; Protocol PRN Reason: itching Labs 09/04/22 08:33 09/15/22 06:06 Labs: Laboratory Results - last 24 hr 09/15/22 09/15/22 09/15/22 11:53 16:11 20:44 POC Glucose 181 H 158 H 135 H 09/16/22 09/16/22 07:12 11:18 POC Glucose 89 259 H Assessment and Plan (1) Stage 4 decubitus ulcer: Status: Acute Plan 74yo M with DM2, HTN, HLD, chronic venous stasis dermatitis presented with mechanical fall, admitted for hypoxia due to PNA cough--ccovid and cxr negative Sacral decubitus ulcer.? Unstageable, necrotic 10cm x10 cm with 4 cm depth frequent turn,air loss? bed ,continue wound care Improving s/p debridements 07/08, 07/17, 1/2 s/p wound vac placement 07/22/22 - removed 07/25 after it became soiled continue wet to dry dressings , being followed by General surgery- d/w surgery - wound vac not helping and would avoid Atrial flutter/fib, rate stable LVEF >70% continue toprol xl and Eliquis Episode of SVT vs atrial tachycardia 07/26 HR improved with IV Lopressor, finish loading dose of amiodarone and started on amiodarone 200 mg by mouth daily on August 07, continue Toprol XL Acute blood loss anemia. Resolved s/p blood loss at site of decub ulcer patient received 2 unit of packed RBC continue ferrous sulfate b.i.d. H/H stable CBC check periodically Traumatic SAH CT brain 06/26 ? New small areas of extra-axial hemorrhage adjacent to the left posterior parietal lobe, bilateral occipital lobes and in the occipital horns of both lateral ventricles, repeat CT 06/28 unchanged seen by neuro - AC was held for two weeks no headache, no dizziness No other complications Acute hypoxic respiratory failure due to PNA. Resolved finished 10d of ABX back on room air Urinary retention failed voiding trial x2 continue tamsulosin and finasteride seen by urology, continue roberts upon discharge - outpatient urology follow up Hyponatremia resolved s/p urea cortisol, TSH wnl Mechanical fall difficulty ambulating; awaiting SNF placement, PT has been working with him I do not think he will walk again generalized weakness 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 but not clinically NPH per Neurology incidental 1.3cm pancreatic lesions may reflect adjacent pancreatic cysts outpt MRI/MRCP DM2? : fs acceptable continue Lantus, SSI adjusted . HTN Stable blood pressures, continue metoprolol losartan and hydralazine discontinued due to soft blood pressures HLD statin b/l eye dryness -? tear ( clear tearin,no erythema or pain or vision change) added tear drops cough 2/4, CXR no pna VTE ppx: SCDs,? eliquis Full code ongoin? 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 Quality Stroke Does the patient have a stroke diagnosis?: No VTE Prior VTE?: No VTE Risk Level:: Medical - moderate - high VTE Device Contraindication: Treatment Not Indicated VTE Drug Contraindication: N/A - Med Ordered
[2022-09-16] MEDS: Insulin Lispro 100 UNIT/ML 3 ML VIAL SUBCUT ×2 (11:40→21:46)
--- NOTE | 2022-09-16 13:31 | MHC.CM.PN ---
EM[facility] REVIEWED CM SPOKE WITH FS REGARDING [facility]/FUNDS. MAY HAVE ENOUGH PP FUNDS TO PAY PRIVATELY AT A SNF FOR A SHORT WHILE. SNF'S UPDATED WITH REQUEST TO RE-EVAL FOR LTC. CM WILL CONTINUE TO FOLLOW.
[2022-09-16] MEDS: Acetaminophen 325 MG TABLET 650 MG PO ×2 (13:45→19:56)
[2022-09-16 15:37] VITALS: BP 104/56; PULSE 86; RESP 15; TEMP 36.9; O2SAT 94
[2022-09-16 16:38] LABS: Glucose, Whole Blood 133 mg/dL (60-115)
[2022-09-16 19:22] VITALS: BP 133/63; PULSE 82; RESP 19; TEMP 36.8; O2SAT 95
[2022-09-16 20:52] LABS: Glucose, Whole Blood 168 mg/dL (60-115)
[2022-09-16] MEDS: Insulin Glargine,Hum.rec.anlog 100 UNIT/ML 10 ML VIAL SUBCUT (21:45)
[2022-09-17 03:55] VITALS: BP 132/61; PULSE 75; RESP 17; TEMP 36.6; O2SAT 97
--- NOTE | 2022-09-17 07:48 | P.PNIM_ITS ---
Subjective Subjective Date of Service: 09/17/22 Interval History: follow up for decubtii Review of Systems no new c/o. denies any chest pain or sob or nausea/vomiting Physical Exam Vital Signs: Vital Signs: Last Vital Signs Temp 98 F 09/17/22 03:55 Pulse 75 09/17/22 03:55 Resp 17 09/17/22 03:55 BP 132/61 09/17/22 03:55 Pulse Ox 97 09/17/22 03:55 O2 Del Method 09/17/22 03:55 O2 Flow Rate 2 09/04/22 12:48 BMI result Body Mass Index 26.6 General: AO X 1, no acute distress Eyes: b/l teraing , no pain or erythema Resp:? CTA bilateral CVS: S1,S2,RRR GI: +BS, NT, no distention Skin: decub ulcer stable Neuro:? motor grossly intact Psych: appropriate affect Objective Data Active Medications Acetaminophen (Acetaminophen 325 Mg Tablet) 650 mg PO Q6H PRN PRN Reason: Pain, Mild (Pain Scale 1-3) Last Admin: 09/16/22 19:56 Dose: 650 mg Documented By: JANICE Amiodarone HCl (Amiodarone Hcl 200 Mg Tablet) 200 mg PO DAILY [facility] Last Admin: 09/16/22 07:57 Dose: 200 mg Documented By: TONNY Apixaban (Apixaban 5 Mg Tablet) 5 mg PO BID [facility] Last Admin: 09/16/22 19:56 Dose: 5 mg Documented By: JANICE Artificial Tears (Artificial Tears 15 Ml Drops) 1 drop EYE-BOTH Q4H PRN PRN Reason: tearin Last Admin: 09/02/22 20:26 Dose: 1 drop Documented By: NARCISO Benzocaine (Throat Lozenge, Medicated Lozenge) 1 lozenge MUCOUS MEM Q2H PRN PRN Reason: Sore Throat Dextrose (Dextrose 50 % 25 Gm/50 Ml Syringe) 25 gm IVPUSH Q15M PRN; Protocol PRN Reason: per Hypoglycemia Standing Ord. Ferrous Sulfate (Ferrous Sulfate 324 Mg Tablet.) 324 mg PO BIDWM [facility] Last Admin: 09/16/22 17:50 Dose: 324 mg Documented By: TONNY Finasteride (Finasteride 5 Mg Tablet) 5 mg PO DAILY [facility] Last Admin: 09/16/22 07:57 Dose: 5 mg Documented By: TONNY Glucose (Glucose Gel 15 Gm Gel..Gram.) 15 gm PO Q15M PRN; Protocol PRN Reason: per Hypoglycemia Standing Ord. Guaifenesin (Guaifenesin 100 Mg/5 Ml Liquid) 5 ml PO Q6H PRN PRN Reason: Cough Insulin Glargine (Insulin Glargine,Hum.Rec.Anlog 100 Unit/Ml 10 Ml Vial) 5 unit SUBCUT BEDTIME [facility] Last Admin: 09/16/22 21:45 Dose: 5 unit Documented By: JANICE Insulin Glargine (Insulin Glargine,Hum.Rec.Anlog 100 Unit/Ml 10 Ml Vial) 25 unit SUBCUT DAILY@0730 [facility] Last Admin: 09/16/22 07:56 Dose: 25 unit Documented By: TONNY Insulin Human Lispro (Insulin Lispro 100 Unit/Ml 3 Ml Vial) 0 unit SUBCUT QIDACHS [facility]; Protocol Last Admin: 09/16/22 21:46 Dose: 2 unit Documented By: JANICE Metformin HCl (Metformin Hcl 850 Mg Tablet) 850 mg PO BIDWM [facility] Last Admin: 09/16/22 17:50 Dose: 850 mg Documented By: TONNY Metoprolol Succinate (Metoprolol Succinate Er 100 Mg Tab.Er.24h) 100 mg PO DAILY [facility] Last Admin: 09/16/22 07:57 Dose: 100 mg Documented By: TONNY Ondansetron HCl (Ondansetron Hcl 4 Mg/2 Ml Vial) 4 mg IVPUSH ONCE PRN PRN Reason: Nausea and Vomiting Ondansetron HCl (Ondansetron Hcl 4 Mg/2 Ml Vial) 4 mg IVPUSH ONCE PRN PRN Reason: Nausea and Vomiting Sodium Hypochlorite (Sodium Hypochlorite 0.25% 473 Ml Solution) 1 appl TOPICAL BID [facility] Last Admin: 09/16/22 21:47 Dose: 1 appl Documented By: JANICE Tamsulosin HCl (Tamsulosin Hcl 0.4 Mg Capsule) 0.8 mg PO DAILY [facility] Last Admin: 09/16/22 07:57 Dose: 0.8 mg Documented By: TONNY Zinc Acetate/Diphenhydramine (Diphenhydramine Hcl 2 % Cream 28 Gm Tube) 1 appl TOPICAL TID PRN; Protocol PRN Reason: itching Labs 09/04/22 08:33 09/15/22 06:06 Labs: Laboratory Results - last 24 hr 09/16/22 09/16/22 09/16/22 11:18 16:28 20:46 POC Glucose 259 H 133 H 168 H Assessment and Plan (1) Stage 4 decubitus ulcer: Status: Acute Plan 74yo M with DM2, HTN, HLD, chronic venous stasis dermatitis presented with mechanical fall, admitted for hypoxia due to PNA cough--ccovid and cxr negative Sacral decubitus ulcer.? Unstageable, necrotic 10cm x10 cm with 4 cm depth frequent turn,air loss? bed ,continue wound care Improving s/p debridements 07/08, 07/17, 12 s/p wound vac placement 07/22/22 - removed 07/25 after it became soiled continue wet to dry dressings , being followed by General surgery- d/w surgery - wound vac not helping and would avoid Atrial flutter/fib, rate stable LVEF >70% continue toprol xl and Eliquis Episode of SVT vs atrial tachycardia 07/26 HR improved with IV Lopressor, finish loading dose of amiodarone and started on amiodarone 200 mg by mouth daily on August 07, continue Toprol XL Acute blood loss anemia. Resolved s/p blood loss at site of decub ulcer patient received 2 unit of packed RBC continue ferrous sulfate b.i.d. H/H stable CBC check periodically Traumatic SAH CT brain 06/26 ? New small areas of extra-axial hemorrhage adjacent to the left posterior parietal lobe, bilateral occipital lobes and in the occipital horns of both lateral ventricles, repeat CT 06/28 unchanged seen by neuro - AC was held for two weeks no headache, no dizziness No other complications Acute hypoxic respiratory failure due to PNA. Resolved finished 10d of ABX back on room air Urinary retention failed voiding trial x2 continue tamsulosin and finasteride seen by urology, continue roberts upon discharge - outpatient urology follow up Hyponatremia resolved s/p urea cortisol, TSH wnl Mechanical fall difficulty ambulating; awaiting SNF placement, PT has been working with him I do not think he will walk again generalized weakness 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 but not clinically NPH per Neurology incidental 1.3cm pancreatic lesions may reflect adjacent pancreatic cysts outpt MRI/MRCP DM2? : fs acceptable continue Lantus, SSI adjusted . HTN Stable blood pressures, continue metoprolol losartan and hydralazine discontinued due to soft blood pressures HLD statin b/l eye dryness -? tear ( clear tearin,no erythema or pain or vision change) added tear drops cough 2/4, CXR no pna VTE ppx: SCDs,? eliquis Full code ongoin? 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 Quality Stroke Does the patient have a stroke diagnosis?: No VTE Prior VTE?: No VTE Risk Level:: Medical - moderate - high VTE Device Contraindication: Treatment Not Indicated VTE Drug Contraindication: N/A - Med Ordered
[2022-09-17 07:58] VITALS: BP 129/59; PULSE 82; RESP 18; TEMP 36.8; O2SAT 99
[2022-09-17 08:00] LABS: Glucose, Whole Blood 66 mg/dL (60-115)
[2022-09-17] MEDS: Apixaban 5 MG TABLET PO ×2 (08:17→21:19)
[2022-09-17] MEDS: Tamsulosin HCL 0.4 MG CAPSULE 0.8 MG PO (08:17)
[2022-09-17] MEDS: Finasteride 5 MG TABLET PO (08:17)
[2022-09-17] MEDS: Insulin Glargine,Hum.rec.anlog 100 UNIT/ML 10 ML VIAL 25 UNIT SUBCUT (08:17)
[2022-09-17] MEDS: metFORMIN HCl 850 MG TABLET PO ×2 (08:17→16:38)
[2022-09-17] MEDS: Ferrous Sulfate 324 MG TABLET.DR PO ×2 (08:17→16:38)
[2022-09-17] MEDS: Metoprolol Succinate ER 100 MG TAB.ER.24H PO (08:18)
[2022-09-17] MEDS: Amiodarone HCL 200 MG TABLET PO (08:18)
[2022-09-17 11:02] LABS: Glucose, Whole Blood 152 mg/dL (60-115)
[2022-09-17] MEDS: Insulin Lispro 100 UNIT/ML 3 ML VIAL SUBCUT ×3 (11:35→21:19)
[2022-09-17] MEDS: Acetaminophen 325 MG TABLET 650 MG PO ×2 (15:12→21:19)
[2022-09-17 15:45] VITALS: BP 136/63; PULSE 83; RESP 18; TEMP 36.9; O2SAT 98
[2022-09-17 16:35] LABS: Glucose, Whole Blood 163 mg/dL (60-115)
[2022-09-17 19:48] VITALS: BP 126/63; PULSE 80; RESP 17; TEMP 36.5; O2SAT 98
[2022-09-17 20:03] LABS: Glucose, Whole Blood 208 mg/dL (60-115)
[2022-09-17] MEDS: Insulin Glargine,Hum.rec.anlog 100 UNIT/ML 10 ML VIAL SUBCUT (21:20)
[2022-09-18 04:00] VITALS: BP 130/62; PULSE 65; RESP 17; TEMP 36.5; O2SAT 97
[2022-09-18] MEDS: Acetaminophen 325 MG TABLET 650 MG PO ×2 (05:32→16:28)
[2022-09-18 07:12] VITALS: BP 123/56; PULSE 75; RESP 18; TEMP 36.4; O2SAT 97
[2022-09-18 07:32] LABS: Glucose, Whole Blood 91 mg/dL (60-115)
[2022-09-18] MEDS: Finasteride 5 MG TABLET PO (09:11)
[2022-09-18] MEDS: Apixaban 5 MG TABLET PO ×2 (09:12→20:52)
[2022-09-18] MEDS: metFORMIN HCl 850 MG TABLET PO ×2 (09:12→16:28)
[2022-09-18] MEDS: Tamsulosin HCL 0.4 MG CAPSULE 0.8 MG PO (09:12)
[2022-09-18] MEDS: Ferrous Sulfate 324 MG TABLET.DR PO ×2 (09:13→16:28)
[2022-09-18] MEDS: Amiodarone HCL 200 MG TABLET PO (09:20)
[2022-09-18 11:16] LABS: Glucose, Whole Blood 213 mg/dL (60-115)
[2022-09-18] MEDS: Insulin Lispro 100 UNIT/ML 3 ML VIAL SUBCUT ×2 (12:06→20:53)
--- NOTE | 2022-09-18 12:06 | P.PNIM_ITS ---
Subjective Subjective Date of Service: 09/18/22 Interval History: follow up for decubtii Review of Systems no new c/o. denies any chest pain or sob or nausea/vomiting Physical Exam Vital Signs: Vital Signs: Last Vital Signs Temp 97.6 F 09/18/22 07:12 Pulse 75 09/18/22 07:12 Resp 18 09/18/22 07:12 BP 123/56 L 09/18/22 07:12 Pulse Ox 97 09/18/22 07:12 O2 Del Method 09/18/22 07:12 O2 Flow Rate 2 09/04/22 12:48 BMI result Body Mass Index 26.6 ? General: AO X 1, no acute distress Eyes: b/l teraing , no pain or erythema Resp:? CTA bilateral CVS: S1,S2,RRR GI: +BS, NT, no distention Skin: decub ulcer stable Neuro:? motor grossly intact Psych: appropriate affect Objective Data Active Medications Acetaminophen (Acetaminophen 325 Mg Tablet) 650 mg PO Q6H PRN PRN Reason: Pain, Mild (Pain Scale 1-3) Last Admin: 09/18/22 05:32 Dose: 650 mg Documented By: MARIANN Amiodarone HCl (Amiodarone Hcl 200 Mg Tablet) 200 mg PO DAILY [facility] Last Admin: 09/18/22 09:20 Dose: 200 mg Documented By: KHURRAM Apixaban (Apixaban 5 Mg Tablet) 5 mg PO BID [facility] Last Admin: 09/18/22 09:12 Dose: 5 mg Documented By: KHURRAM Artificial Tears (Artificial Tears 15 Ml Drops) 1 drop EYE-BOTH Q4H PRN PRN Reason: tearin Last Admin: 09/02/22 20:26 Dose: 1 drop Documented By: NARCISO Benzocaine (Throat Lozenge, Medicated Lozenge) 1 lozenge MUCOUS MEM Q2H PRN PRN Reason: Sore Throat Dextrose (Dextrose 50 % 25 Gm/50 Ml Syringe) 25 gm IVPUSH Q15M PRN; Protocol PRN Reason: per Hypoglycemia Standing Ord. Ferrous Sulfate (Ferrous Sulfate 324 Mg Tablet.) 324 mg PO BIDWM [facility] Last Admin: 09/18/22 09:13 Dose: 324 mg Documented By: KHURRAM Finasteride (Finasteride 5 Mg Tablet) 5 mg PO DAILY [facility] Last Admin: 09/18/22 09:11 Dose: 5 mg Documented By: KHURRAM Glucose (Glucose Gel 15 Gm Gel..Gram.) 15 gm PO Q15M PRN; Protocol PRN Reason: per Hypoglycemia Standing Ord. Guaifenesin (Guaifenesin 100 Mg/5 Ml Liquid) 5 ml PO Q6H PRN PRN Reason: Cough Insulin Glargine (Insulin Glargine,Hum.Rec.Anlog 100 Unit/Ml 10 Ml Vial) 5 unit SUBCUT BEDTIME [facility] Last Admin: 09/17/22 21:20 Dose: 5 unit Documented By: CASTILCinthya Insulin Glargine (Insulin Glargine,Hum.Rec.Anlog 100 Unit/Ml 10 Ml Vial) 25 unit SUBCUT DAILY@0730 [facility] Last Admin: 09/18/22 10:10 Dose: Not Given Documented By: KWAME Non-Admin Reason: Per provider Insulin Human Lispro (Insulin Lispro 100 Unit/Ml 3 Ml Vial) 0 unit SUBCUT QIDACHS [facility]; Protocol Last Admin: 09/18/22 10:09 Dose: Not Given Documented By: KWAME Non-Admin Reason: No Insulin Coverage Metformin HCl (Metformin Hcl 850 Mg Tablet) 850 mg PO BIDWM [facility] Last Admin: 09/18/22 09:12 Dose: 850 mg Documented By: KHURRAM Metoprolol Succinate (Metoprolol Succinate Er 100 Mg Tab.Er.24h) 100 mg PO DAILY [facility] Last Admin: 09/18/22 09:20 Dose: Not Given Documented By: KHURRAM Non-Admin Reason: Physician Held Med Ondansetron HCl (Ondansetron Hcl 4 Mg/2 Ml Vial) 4 mg IVPUSH ONCE PRN PRN Reason: Nausea and Vomiting Ondansetron HCl (Ondansetron Hcl 4 Mg/2 Ml Vial) 4 mg IVPUSH ONCE PRN PRN Reason: Nausea and Vomiting Sodium Hypochlorite (Sodium Hypochlorite 0.25% 473 Ml Solution) 1 appl TOPICAL BID [facility] Last Admin: 09/18/22 11:01 Dose: 1 appl Documented By: KWAME Tamsulosin HCl (Tamsulosin Hcl 0.4 Mg Capsule) 0.8 mg PO DAILY [facility] Last Admin: 09/18/22 09:12 Dose: 0.8 mg Documented By: KHURRAM Zinc Acetate/Diphenhydramine (Diphenhydramine Hcl 2 % Cream 28 Gm Tube) 1 appl TOPICAL TID PRN; Protocol PRN Reason: itching Labs 09/04/22 08:33 09/15/22 06:06 Labs: Laboratory Results - last 24 hr 09/17/22 09/17/22 09/18/22 16:21 19:51 07:14 POC Glucose 163 H 208 H 91 09/18/22 11:12 POC Glucose 213 H Assessment and Plan (1) Stage 4 decubitus ulcer: Status: Acute Plan 74yo M with DM2, HTN, HLD, chronic venous stasis dermatitis presented with mechanical fall, admitted for hypoxia due to PNA cough--ccovid and cxr negative Sacral decubitus ulcer.? Unstageable, necrotic 10cm x10 cm with 4 cm depth frequent turn,air loss? bed ,continue wound care Improving s/p debridements 07/08, 07/17, 12 s/p wound vac placement 07/22/22 - removed 07/25 after it became soiled continue wet to dry dressings , being followed by General surgery- d/w surgery - wound vac not helping and would avoid Atrial flutter/fib, rate stable LVEF >70% continue toprol xl and Eliquis Episode of SVT vs atrial tachycardia 07/26 HR improved with IV Lopressor, finish loading dose of amiodarone and started on amiodarone 200 mg by mouth daily on August 07, continue Toprol XL Acute blood loss anemia. Resolved s/p blood loss at site of decub ulcer patient received 2 unit of packed RBC continue ferrous sulfate b.i.d. H/H stable CBC check periodically Traumatic SAH CT brain 06/26 ? New small areas of extra-axial hemorrhage adjacent to the left posterior parietal lobe, bilateral occipital lobes and in the occipital horns of both lateral ventricles, repeat CT 06/28 unchanged seen by neuro - AC was held for two weeks no headache, no dizziness No other complications Acute hypoxic respiratory failure due to PNA. Resolved finished 10d of ABX back on room air Urinary retention failed voiding trial x2 continue tamsulosin and finasteride seen by urology, continue roberts upon discharge - outpatient urology follow up Hyponatremia resolved s/p urea cortisol, TSH wnl Mechanical fall difficulty ambulating; awaiting SNF placement, PT has been working with him I do not think he will walk again generalized weakness 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 but not clinically NPH per Neurology incidental 1.3cm pancreatic lesions may reflect adjacent pancreatic cysts outpt MRI/MRCP DM2? : fs acceptable continue Lantus, SSI adjusted . HTN Stable blood pressures, continue metoprolol losartan and hydralazine discontinued due to soft blood pressures HLD statin b/l eye dryness -? tear ( clear tearin,no erythema or pain or vision change) added tear drops cough 2/, CXR no pna VTE ppx: SCDs,? eliquis Full code ongoin? 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 Quality Stroke Does the patient have a stroke diagnosis?: No VTE Prior VTE?: No VTE Risk Level:: Medical - moderate - high VTE Device Contraindication: Treatment Not Indicated VTE Drug Contraindication: N/A - Med Ordered
--- NOTE | 2022-09-18 14:04 | MHC.CM.PN ---
EMR REVIEWED, PT REMAINS MEDICALLY CLEARED FOR D/C, PT COULD PRIVATE PAY FOR APPROX 3MOS OF LTC PRIOR TO NEEDING TO SELL HIS HOME, PER FS PT WILL NOT LIKELY QUALIFY FOR MH UNTIL PT HAS FEWER ASSETS, SNF REFERRAL UPDATED W/INFO REGARDING FINANCIALS AND EXPANDED, CM WILL CONT TO FOLLOW.
[2022-09-18 15:37] VITALS: BP 127/66; PULSE 99; RESP 17; TEMP 36.6; O2SAT 96
[2022-09-18 16:00] LABS: Glucose, Whole Blood 123 mg/dL (60-115)
[2022-09-18 19:56] VITALS: BP 130/62; PULSE 65; RESP 17; TEMP 36.2; O2SAT 97
[2022-09-18 20:14] LABS: Glucose, Whole Blood 238 mg/dL (60-115)
[2022-09-18] MEDS: Insulin Glargine,Hum.rec.anlog 100 UNIT/ML 10 ML VIAL SUBCUT (20:53)
[2022-09-18] MEDS: oxyCODONE HCl Immed Release 5 MG TABLET PO (21:26)
[2022-09-19 03:42] VITALS: BP 123/64; PULSE 98; RESP 18; TEMP 36.6; O2SAT 99
[2022-09-19 07:26] VITALS: BP 131/64; PULSE 100; RESP 18; TEMP 36.4; O2SAT 97
[2022-09-19 07:31] LABS: Glucose, Whole Blood 109 mg/dL (60-115)
[2022-09-19] MEDS: Insulin Glargine,Hum.rec.anlog 100 UNIT/ML 10 ML VIAL 25 UNIT SUBCUT (08:00)
[2022-09-19] MEDS: Finasteride 5 MG TABLET PO (08:01)
[2022-09-19] MEDS: Amiodarone HCL 200 MG TABLET PO (08:01)
[2022-09-19] MEDS: Tamsulosin HCL 0.4 MG CAPSULE 0.8 MG PO (08:01)
[2022-09-19] MEDS: Metoprolol Succinate ER 100 MG TAB.ER.24H PO (08:01)
[2022-09-19] MEDS: Ferrous Sulfate 324 MG TABLET.DR PO ×2 (08:01→17:30)
[2022-09-19] MEDS: metFORMIN HCl 850 MG TABLET PO ×2 (08:01→17:30)
[2022-09-19] MEDS: Apixaban 5 MG TABLET PO ×2 (08:01→22:38)
[2022-09-19 11:18] LABS: Glucose, Whole Blood 242 mg/dL (60-115)
[2022-09-19] MEDS: Insulin Lispro 100 UNIT/ML 3 ML VIAL SUBCUT (12:15)
[2022-09-19] MEDS: Acetaminophen 325 MG TABLET 650 MG PO ×2 (13:35→19:16)
[2022-09-19 16:00] VITALS: BP 112/58; PULSE 84; RESP 17; TEMP 36.6; O2SAT 97
--- NOTE | 2022-09-19 16:06 | HO.PM.IMPN ---
Subjective Subjective Date of Service: 09/19/22 Interval History: seen and examined this morning follow up for decubitus ulcer no overnight events no specific complaints this morning Review of Systems Review of Systems: Yes all other systems are reviewed and are negative Constitutional Constitutional: Denies chills and Denies fever(s) Cardiovascular Cardiovascular: Denies chest pain, Denies palpitations and Denies dyspnea Respiratory Respiratory: Denies cough and Denies dyspnea Gastrointestinal Gastrointestinal: Denies abdominal pain Endocrine Endocrine: Denies palpitations Physical Exam Vital Signs: Vital Signs: Last Vital Signs Temp 97.5 F 09/19/22 07:26 Pulse 100 09/19/22 07:26 Resp 18 09/19/22 07:26 BP 131/64 09/19/22 07:26 Pulse Ox 97 09/19/22 07:26 O2 Del Method 09/19/22 07:26 O2 Flow Rate 2 09/04/22 12:48 BMI result Body Mass Index 26.6 Const: General: cooperative, comfortable, no acute distress, alert and awake Nutritional Appearance: average body habitus Resp: Effort & Inspection: normal respiratory effort and able to speak in complete sentences Auscultation: clear to auscultation bilaterally Cardio: Rate: regular rate Heart sounds: S1 normal heart sound present and S2 normal heart sound present GI: Inspection: No distended Palpation (GI): Soft to palpation Extrem: General: Yes no pedal edema Objective Data Active Medications Acetaminophen (Acetaminophen 325 Mg Tablet) 650 mg PO Q6H PRN PRN Reason: Pain, Mild (Pain Scale 1-3) Last Admin: 09/19/22 13:35 Dose: 650 mg Documented By: ANA CRISTINA Amiodarone HCl (Amiodarone Hcl 200 Mg Tablet) 200 mg PO DAILY [facility] Last Admin: 09/19/22 08:01 Dose: 200 mg Documented By: ANA CRISTINA Apixaban (Apixaban 5 Mg Tablet) 5 mg PO BID [facility] Last Admin: 09/19/22 08:01 Dose: 5 mg Documented By: ANA CRISTINA Artificial Tears (Artificial Tears 15 Ml Drops) 1 drop EYE-BOTH Q4H PRN PRN Reason: tearin Last Admin: 09/02/22 20:26 Dose: 1 drop Documented By: NARCISO Benzocaine (Throat Lozenge, Medicated Lozenge) 1 lozenge MUCOUS MEM Q2H PRN PRN Reason: Sore Throat Dextrose (Dextrose 50 % 25 Gm/50 Ml Syringe) 25 gm IVPUSH Q15M PRN; Protocol PRN Reason: per Hypoglycemia Standing Ord. Ferrous Sulfate (Ferrous Sulfate 324 Mg Tablet.Dr) 324 mg PO BIDWM [facility] Last Admin: 09/19/22 08:01 Dose: 324 mg Documented By: ANA CRISTINA Finasteride (Finasteride 5 Mg Tablet) 5 mg PO DAILY [facility] Last Admin: 09/19/22 08:01 Dose: 5 mg Documented By: ANA CRISTINA Glucose (Glucose Gel 15 Gm Gel..Gram.) 15 gm PO Q15M PRN; Protocol PRN Reason: per Hypoglycemia Standing Ord. Guaifenesin (Guaifenesin 100 Mg/5 Ml Liquid) 5 ml PO Q6H PRN PRN Reason: Cough Insulin Glargine (Insulin Glargine,Hum.Rec.Anlog 100 Unit/Ml 10 Ml Vial) 5 unit SUBCUT BEDTIME [facility] Last Admin: 09/18/22 20:53 Dose: 5 unit Documented By: TOM Insulin Glargine (Insulin Glargine,Hum.Rec.Anlog 100 Unit/Ml 10 Ml Vial) 25 unit SUBCUT DAILY@0730 [facility] Last Admin: 09/19/22 08:00 Dose: 25 unit Documented By: ANA CRISTINA Insulin Human Lispro (Insulin Lispro 100 Unit/Ml 3 Ml Vial) 0 unit SUBCUT QIDACHS [facility]; Protocol Last Admin: 09/19/22 12:15 Dose: 4 unit Documented By: ANA CRISTINA Metformin HCl (Metformin Hcl 850 Mg Tablet) 850 mg PO BIDWM [facility] Last Admin: 09/19/22 08:01 Dose: 850 mg Documented By: ANA CRISTINA Metoprolol Succinate (Metoprolol Succinate Er 100 Mg Tab.Er.24h) 100 mg PO DAILY [facility] Last Admin: 09/19/22 08:01 Dose: 100 mg Documented By: ANA CRISTINA Ondansetron HCl (Ondansetron Hcl 4 Mg/2 Ml Vial) 4 mg IVPUSH ONCE PRN PRN Reason: Nausea and Vomiting Ondansetron HCl (Ondansetron Hcl 4 Mg/2 Ml Vial) 4 mg IVPUSH ONCE PRN PRN Reason: Nausea and Vomiting Sodium Hypochlorite (Sodium Hypochlorite 0.25% 473 Ml Solution) 1 appl TOPICAL BID [facility] Last Admin: 09/19/22 08:01 Dose: 1 appl Documented By: COTEMA Tamsulosin HCl (Tamsulosin Hcl 0.4 Mg Capsule) 0.8 mg PO DAILY [facility] Last Admin: 09/19/22 08:01 Dose: 0.8 mg Documented By: COTEMA Zinc Acetate/Diphenhydramine (Diphenhydramine Hcl 2 % Cream 28 Gm Tube) 1 appl TOPICAL TID PRN; Protocol PRN Reason: itching Labs 09/04/22 08:33 09/15/22 06:06 Labs: Laboratory Results - last 24 hr 09/18/22 09/19/22 09/19/22 19:57 07:27 11:15 POC Glucose 238 H 109 242 H Assessment and Plan (1) Stage 4 decubitus ulcer: Status: Acute Plan 74yo M with DM2, HTN, HLD, chronic venous stasis dermatitis presented with mechanical fall, admitted for hypoxia due to PNA Sacral decubitus ulcer.? Unstageable, necrotic 10cm x10 cm with 4 cm depth frequent turn,air loss? bed ,continue wound care Improving s/p debridements 07/08, 07/17, 1/ s/p wound vac placement 07/22/22 - removed 07/25 after it became soiled continue wet to dry dressings , being followed by General surgery- d/w surgery - wound vac not helping and would avoid Atrial flutter/fib, rate stable LVEF >70% continue toprol xl and Eliquis Episode of SVT vs atrial tachycardia 07/26 HR improved with IV Lopressor, finish loading dose of amiodarone and started on amiodarone 200 mg by mouth daily on August 07, continue Toprol XL Acute blood loss anemia. Resolved s/p blood loss at site of decub ulcer patient received 2 unit of packed RBC continue ferrous sulfate b.i.d. H/H stable CBC check periodically Traumatic SAH CT brain 06/26 ? New small areas of extra-axial hemorrhage adjacent to the left posterior parietal lobe, bilateral occipital lobes and in the occipital horns of both lateral ventricles, repeat CT 06/28 unchanged seen by neuro - AC was held for two weeks no headache, no dizziness No other complications Acute hypoxic respiratory failure due to PNA. Resolved finished 10d of ABX back on room air Urinary retention failed voiding trial x2 continue tamsulosin and finasteride seen by urology, continue roberts upon discharge - outpatient urology follow up Hyponatremia resolved s/p urea cortisol, TSH wnl Mechanical fall difficulty ambulating; awaiting SNF placement, PT has been working with him I do not think he will walk again generalized weakness 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 but not clinically NPH per Neurology incidental 1.3cm pancreatic lesions may reflect adjacent pancreatic cysts outpt MRI/MRCP DM2? : fs acceptable continue Lantus, SSI adjusted . HTN Stable blood pressures, continue metoprolol losartan and hydralazine discontinued due to soft blood pressures HLD statin b/l eye dryness (clear tearing,no erythema or pain or vision change) added artifical tears drops cough 2/4, CXR no pna VTE ppx: SCDs,? eliquis Full code Attending - Dr. Contreras ongoing? 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 Quality Stroke Does the patient have a stroke diagnosis?: No VTE Prior VTE?: No VTE Risk Level:: Medical - moderate - high VTE Device Contraindication: Treatment Not Indicated VTE Drug Contraindication: N/A - Med Ordered
[2022-09-19 16:45] LABS: Glucose, Whole Blood 112 mg/dL (60-115)
[2022-09-19 19:44] VITALS: BP 131/58; PULSE 84; RESP 17; TEMP 36.1; O2SAT 95
[2022-09-19 20:49] LABS: Glucose, Whole Blood 142 mg/dL (60-115)
[2022-09-19] MEDS: Insulin Glargine,Hum.rec.anlog 100 UNIT/ML 10 ML VIAL SUBCUT (22:39)
[2022-09-20] MEDS: Acetaminophen 325 MG TABLET 650 MG PO ×2 (01:48→17:08)
[2022-09-20 04:00] VITALS: BP 110/50; PULSE 77; RESP 18; TEMP 36.7; O2SAT 97
[2022-09-20 07:31] LABS: Glucose, Whole Blood 91 mg/dL (60-115)
[2022-09-20 07:38] VITALS: BP 122/59; PULSE 75; RESP 17; TEMP 36.1; O2SAT 95
[2022-09-20] MEDS: Insulin Glargine,Hum.rec.anlog 100 UNIT/ML 10 ML VIAL 25 UNIT SUBCUT (08:28)
[2022-09-20] MEDS: Metoprolol Succinate ER 100 MG TAB.ER.24H PO (08:29)
[2022-09-20] MEDS: metFORMIN HCl 850 MG TABLET PO ×2 (08:29→16:47)
[2022-09-20] MEDS: Finasteride 5 MG TABLET PO (08:29)
[2022-09-20] MEDS: Amiodarone HCL 200 MG TABLET PO (08:29)
[2022-09-20] MEDS: Apixaban 5 MG TABLET PO ×2 (08:29→21:35)
[2022-09-20] MEDS: Ferrous Sulfate 324 MG TABLET.DR PO ×2 (08:29→16:47)
[2022-09-20] MEDS: Tamsulosin HCL 0.4 MG CAPSULE 0.8 MG PO (08:30)
[2022-09-20] MEDS: diphenhydrAMINE HCl 2 % Cream 28 GM TUBE 1 APPL TOPICAL ×2 (09:45→17:01)
--- NOTE | 2022-09-20 10:45 | MHC.CLN ---
F/U PO INTAKE MOST MEALS 100%. DIET RX: DIABETIC 2200 KCALS-APPROPRIATE. SUPPLEMENT CHANGED FROM GLUCERNA TID TO ENSURE MAX BID. ENSURE MAX BID PROVIDES ADDITIONAL 300 KCALS, 60 G PROTEIN. ADDITIONAL PROTEIN TO PROMOTE WOUND HEALING. SKIN CONTINUES WITH STAGE IV TO COCCYX/SACRUM; REDNESS TO RIGHT HIP AND RIGHT HEEL. CONTINUE TO MONITOR PO INTAKE AND WOUND HEALING. RD TO CONTINUE TO FOLLOW WEEKLY.
[2022-09-20 11:24] LABS: Glucose, Whole Blood 210 mg/dL (60-115)
[2022-09-20] MEDS: Insulin Lispro 100 UNIT/ML 3 ML VIAL SUBCUT ×2 (11:58→21:35)
[2022-09-20 15:14] VITALS: BP 134/63; PULSE 90; RESP 18; TEMP 36.4; O2SAT 96
--- NOTE | 2022-09-20 15:57 | P.PNIM_ITS ---
Subjective Subjective Date of Service: 09/20/22 Interval History: seen and examined this morning follow up for placement, decubitus ulcer reporting rash on back, itchy; no other complaints Review of Systems Review of Systems: Yes all other systems are reviewed and are negative Constitutional Constitutional: Denies chills and Denies fever(s) Cardiovascular Cardiovascular: Denies chest pain, Denies palpitations and Denies dyspnea Respiratory Respiratory: Denies cough and Denies dyspnea Endocrine Endocrine: Denies palpitations Physical Exam Vital Signs: Vital Signs: Last Vital Signs Temp 97.6 F 09/20/22 15:14 Pulse 90 09/20/22 15:14 Resp 18 09/20/22 15:14 BP 134/63 09/20/22 15:14 Pulse Ox 96 09/20/22 15:14 O2 Del Method 09/20/22 15:14 O2 Flow Rate 2 09/04/22 12:48 BMI result Body Mass Index 26.6 Const: General: cooperative, comfortable, no acute distress, alert and awake Nutritional Appearance: average body habitus Resp: Effort & Inspection: normal respiratory effort and able to speak in complete sentences Auscultation: clear to auscultation bilaterally Cardio: Rate: regular rate GI: Inspection: No distended Palpation (GI): Soft to palpation and nontender : Other: roberts present Skin: Other: coccyx ulcer itchy rash, upper back, flat, dry skin Neuro: Other: grossly nonfocal Extrem: Other: able to move all 4 extremities spontaneously; trace leg edema General: Yes no pedal edema Objective Data Active Medications Acetaminophen (Acetaminophen 325 Mg Tablet) 650 mg PO Q6H PRN PRN Reason: Pain, Mild (Pain Scale 1-3) Last Admin: 09/20/22 01:48 Dose: 650 mg Documented By: TOM Amiodarone HCl (Amiodarone Hcl 200 Mg Tablet) 200 mg PO DAILY [facility] Last Admin: 09/20/22 08:29 Dose: 200 mg Documented By: SAMMIE Apixaban (Apixaban 5 Mg Tablet) 5 mg PO BID [facility] Last Admin: 09/20/22 08:29 Dose: 5 mg Documented By: SAMMIE Artificial Tears (Artificial Tears 15 Ml Drops) 1 drop EYE-BOTH Q4H PRN PRN Reason: tearin Last Admin: 09/02/22 20:26 Dose: 1 drop Documented By: NARCISO Benzocaine (Throat Lozenge, Medicated Lozenge) 1 lozenge MUCOUS MEM Q2H PRN PRN Reason: Sore Throat Dextrose (Dextrose 50 % 25 Gm/50 Ml Syringe) 25 gm IVPUSH Q15M PRN; Protocol PRN Reason: per Hypoglycemia Standing Ord. Ferrous Sulfate (Ferrous Sulfate 324 Mg Tablet.Dr) 324 mg PO BIDWM [facility] Last Admin: 09/20/22 08:29 Dose: 324 mg Documented By: SAMMIE Finasteride (Finasteride 5 Mg Tablet) 5 mg PO DAILY [facility] Last Admin: 09/20/22 08:29 Dose: 5 mg Documented By: SAMMIE Glucose (Glucose Gel 15 Gm Gel..Gram.) 15 gm PO Q15M PRN; Protocol PRN Reason: per Hypoglycemia Standing Ord. Guaifenesin (Guaifenesin 100 Mg/5 Ml Liquid) 5 ml PO Q6H PRN PRN Reason: Cough Insulin Glargine (Insulin Glargine,Hum.Rec.Anlog 100 Unit/Ml 10 Ml Vial) 5 unit SUBCUT BEDTIME [facility] Last Admin: 09/19/22 22:39 Dose: 5 unit Documented By: TOM Insulin Glargine (Insulin Glargine,Hum.Rec.Anlog 100 Unit/Ml 10 Ml Vial) 25 unit SUBCUT DAILY@0730 [facility] Last Admin: 09/20/22 08:28 Dose: 25 unit Documented By: SAMMIE Insulin Human Lispro (Insulin Lispro 100 Unit/Ml 3 Ml Vial) 0 unit SUBCUT QIDACHS [facility]; Protocol Last Admin: 09/20/22 11:58 Dose: 4 unit Documented By: SAMMIE Metformin HCl (Metformin Hcl 850 Mg Tablet) 850 mg PO BIDWM [facility] Last Admin: 09/20/22 08:29 Dose: 850 mg Documented By: SAMMIE Metoprolol Succinate (Metoprolol Succinate Er 100 Mg Tab.Er.24h) 100 mg PO DAILY [facility] Last Admin: 09/20/22 08:29 Dose: 100 mg Documented By: SAMMIE Sodium Hypochlorite (Sodium Hypochlorite 0.25% 473 Ml Solution) 1 appl TOPICAL BID [facility] Last Admin: 09/20/22 08:30 Dose: 1 appl Documented By: SAMMIE Tamsulosin HCl (Tamsulosin Hcl 0.4 Mg Capsule) 0.8 mg PO DAILY [facility] Last Admin: 09/20/22 08:30 Dose: 0.8 mg Documented By: SAMMIE Zinc Acetate/Diphenhydramine (Diphenhydramine Hcl 2 % Cream 28 Gm Tube) 1 appl TOPICAL TID PRN; Protocol PRN Reason: itching Last Admin: 09/20/22 09:45 Dose: 1 appl Documented By: SAMMIE Labs 09/04/22 08:33 09/15/22 06:06 Labs: Laboratory Results - last 24 hr 09/19/22 09/19/22 09/20/22 16:42 20:43 07:18 POC Glucose 112 142 H 91 09/20/22 11:12 POC Glucose 210 H Assessment and Plan (1) Stage 4 decubitus ulcer: Status: Acute Plan 74yo M with DM2, HTN, HLD, chronic venous stasis dermatitis presented with mechanical fall, admitted for hypoxia due to PNA Sacral decubitus ulcer.? Unstageable, necrotic 10cm x10 cm with 4 cm depth frequent turn,air loss? bed ,continue wound care Improving s/p debridements 07/08, 07/17, 1/2 s/p wound vac placement 07/22/22 - removed 07/25 after it became soiled continue wet to dry dressings , being followed by General surgery- d/w surgery - wound vac not helping and would avoid Atrial flutter/fib, rate stable LVEF >70% continue toprol xl and Eliquis Episode of SVT vs atrial tachycardia 07/26 HR improved with IV Lopressor, finish loading dose of amiodarone and started on amiodarone 200 mg by mouth daily on August 07, continue Toprol XL Acute blood loss anemia. Resolved s/p blood loss at site of decub ulcer patient received 2 unit of packed RBC continue ferrous sulfate b.i.d. H/H stable CBC check periodically Traumatic SAH CT brain 06/26 ? New small areas of extra-axial hemorrhage adjacent to the left posterior parietal lobe, bilateral occipital lobes and in the occipital horns of both lateral ventricles, repeat CT 06/28 unchanged seen by neuro - AC was held for two weeks no headache, no dizziness No other complications Acute hypoxic respiratory failure due to PNA. Resolved finished 10d of ABX back on room air Urinary retention failed voiding trial x2 continue tamsulosin and finasteride seen by urology, continue roberts upon discharge - outpatient urology follow up Hyponatremia resolved s/p urea cortisol, TSH wnl Mechanical fall difficulty ambulating; awaiting SNF placement, PT has been working with him I do not think he will walk again generalized weakness 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 but not clinically NPH per Neurology incidental 1.3cm pancreatic lesions may reflect adjacent pancreatic cysts outpt MRI/MRCP DM2? : fs acceptable continue Lantus, SSI adjusted . HTN Stable blood pressures, continue metoprolol losartan and hydralazine discontinued due to soft blood pressures HLD statin b/l eye dryness (clear tearing,no erythema or pain or vision change) added artifical tears drops rash bendaryl cream helping cough 2/, CXR no pna VTE ppx: SCDs,? eliquis Full code Attending - Dr. Contreras ongoing? 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 Quality Stroke Does the patient have a stroke diagnosis?: No VTE Prior VTE?: No VTE Risk Level:: Medical - moderate - high VTE Device Contraindication: Treatment Not Indicated VTE Drug Contraindication: N/A - Med Ordered
[2022-09-20 16:30] LABS: Glucose, Whole Blood 122 mg/dL (60-115)
[2022-09-20 19:11] VITALS: BP 117/56; PULSE 88; RESP 18; TEMP 37.5; O2SAT 95
[2022-09-20 20:46] LABS: Glucose, Whole Blood 223 mg/dL (60-115)
[2022-09-20] MEDS: Insulin Glargine,Hum.rec.anlog 100 UNIT/ML 10 ML VIAL SUBCUT (21:34)
[2022-09-21 04:00] VITALS: BP 118/58; PULSE 80; RESP 20; TEMP 36.5; O2SAT 97
[2022-09-21 08:00] VITALS: BP 131/64; PULSE 82; RESP 18; TEMP 36.7; O2SAT 97
[2022-09-21 08:05] LABS: Glucose, Whole Blood 94 mg/dL (60-115)
[2022-09-21] MEDS: Insulin Glargine,Hum.rec.anlog 100 UNIT/ML 10 ML VIAL 25 UNIT SUBCUT (08:52)
[2022-09-21] MEDS: Metoprolol Succinate ER 100 MG TAB.ER.24H PO (08:53)
[2022-09-21] MEDS: Amiodarone HCL 200 MG TABLET PO (08:53)
[2022-09-21] MEDS: Tamsulosin HCL 0.4 MG CAPSULE 0.8 MG PO (08:53)
[2022-09-21] MEDS: Finasteride 5 MG TABLET PO (08:53)
[2022-09-21] MEDS: metFORMIN HCl 850 MG TABLET PO ×2 (08:53→16:39)
[2022-09-21] MEDS: Ferrous Sulfate 324 MG TABLET.DR PO ×2 (08:53→16:39)
[2022-09-21] MEDS: Apixaban 5 MG TABLET PO ×2 (08:53→20:25)
[2022-09-21] MEDS: Acetaminophen 325 MG TABLET 650 MG PO ×2 (08:59→16:39)
--- NOTE | 2022-09-21 10:28 | P.PNIM_ITS ---
Subjective Subjective Date of Service: 09/21/22 Interval History: seen and examined this morning follow up for placement, decubitus ulcer reporting rash on back, itchy; no other complaints Review of Systems Review of Systems: Yes all other systems are reviewed and are negative Constitutional Constitutional: Denies chills and Denies fever(s) Cardiovascular Cardiovascular: Denies chest pain, Denies palpitations and Denies dyspnea Respiratory Respiratory: Denies cough and Denies dyspnea Endocrine Endocrine: Denies palpitations Physical Exam Vital Signs: Vital Signs: Last Vital Signs Temp 98.1 F 09/21/22 08:00 Pulse 82 09/21/22 08:00 Resp 18 09/21/22 08:00 BP 131/64 09/21/22 08:00 Pulse Ox 97 09/21/22 08:00 O2 Del Method 09/21/22 08:00 O2 Flow Rate 2 09/04/22 12:48 BMI result Body Mass Index 26.6 Appearing in no acute distress lung sounds are clear to auscultation heart regular rate rhythm, clear S1, S2 positive bowel sounds, abdomen is soft, nontender neuro patient is alert x3, no focal deficits Objective Data Active Medications Acetaminophen (Acetaminophen 325 Mg Tablet) 650 mg PO Q6H PRN PRN Reason: Pain, Mild (Pain Scale 1-3) Last Admin: 09/21/22 08:59 Dose: 650 mg Documented By: NARCISO Amiodarone HCl (Amiodarone Hcl 200 Mg Tablet) 200 mg PO DAILY [facility] Last Admin: 09/21/22 08:53 Dose: 200 mg Documented By: NARCISO Apixaban (Apixaban 5 Mg Tablet) 5 mg PO BID [facility] Last Admin: 09/21/22 08:53 Dose: 5 mg Documented By: NARCISO Artificial Tears (Artificial Tears 15 Ml Drops) 1 drop EYE-BOTH Q4H PRN PRN Reason: tearin Last Admin: 09/02/22 20:26 Dose: 1 drop Documented By: NARCISO Benzocaine (Throat Lozenge, Medicated Lozenge) 1 lozenge MUCOUS MEM Q2H PRN PRN Reason: Sore Throat Dextrose (Dextrose 50 % 25 Gm/50 Ml Syringe) 25 gm IVPUSH Q15M PRN; Protocol PRN Reason: per Hypoglycemia Standing Ord. Ferrous Sulfate (Ferrous Sulfate 324 Mg Tablet.Dr) 324 mg PO BIDWM [facility] Last Admin: 09/21/22 08:53 Dose: 324 mg Documented By: NARCISO Finasteride (Finasteride 5 Mg Tablet) 5 mg PO DAILY [facility] Last Admin: 09/21/22 08:53 Dose: 5 mg Documented By: NARCISO Glucose (Glucose Gel 15 Gm Gel..Gram.) 15 gm PO Q15M PRN; Protocol PRN Reason: per Hypoglycemia Standing Ord. Guaifenesin (Guaifenesin 100 Mg/5 Ml Liquid) 5 ml PO Q6H PRN PRN Reason: Cough Insulin Glargine (Insulin Glargine,Hum.Rec.Anlog 100 Unit/Ml 10 Ml Vial) 5 unit SUBCUT BEDTIME [facility] Last Admin: 09/20/22 21:34 Dose: 5 unit Documented By: MAR Insulin Glargine (Insulin Glargine,Hum.Rec.Anlog 100 Unit/Ml 10 Ml Vial) 25 unit SUBCUT DAILY@0730 [facility] Last Admin: 09/21/22 08:52 Dose: 25 unit Documented By: NARCISO Insulin Human Lispro (Insulin Lispro 100 Unit/Ml 3 Ml Vial) 0 unit SUBCUT QIDACHS [facility]; Protocol Last Admin: 09/21/22 08:14 Dose: Not Given Documented By: NARCISO Non-Admin Reason: No Insulin Coverage Metformin HCl (Metformin Hcl 850 Mg Tablet) 850 mg PO BIDWM [facility] Last Admin: 09/21/22 08:53 Dose: 850 mg Documented By: NARCISO Metoprolol Succinate (Metoprolol Succinate Er 100 Mg Tab.Er.24h) 100 mg PO DAILY [facility] Last Admin: 09/21/22 08:53 Dose: 100 mg Documented By: NARCISO Sodium Hypochlorite (Sodium Hypochlorite 0.25% 473 Ml Solution) 1 appl TOPICAL BID [facility] Last Admin: 09/21/22 08:54 Dose: 1 appl Documented By: NARCISO Tamsulosin HCl (Tamsulosin Hcl 0.4 Mg Capsule) 0.8 mg PO DAILY [facility] Last Admin: 09/21/22 08:53 Dose: 0.8 mg Documented By: NARCISO Zinc Acetate/Diphenhydramine (Diphenhydramine Hcl 2 % Cream 28 Gm Tube) 1 appl TOPICAL TID PRN; Protocol PRN Reason: itching Last Admin: 09/20/22 17:01 Dose: 1 appl Documented By: SAMMIE Labs 09/04/22 08:33 09/15/22 06:06 Labs: Laboratory Results - last 24 hr 09/20/22 09/20/22 09/20/22 11:12 16:26 20:37 POC Glucose 210 H 122 H 223 H 09/21/22 07:31 POC Glucose 94 Assessment and Plan (1) Stage 4 decubitus ulcer: Status: Acute Plan 74yo M with DM2, HTN, HLD, chronic venous stasis dermatitis presented with mechanical fall, admitted for hypoxia due to PNA Sacral decubitus ulcer.? Unstageable, necrotic 10cm x10 cm with 4 cm depth frequent turn,air loss? bed ,continue wound care Improving s/p debridements 07/08, 07/17, 1/2 s/p wound vac placement 07/22/22 - removed 07/25 after it became soiled continue wet to dry dressings , being followed by General surgery- d/w surgery - wound vac not helping and would avoid Atrial flutter/fib, rate stable LVEF >70% continue toprol xl and Eliquis Episode of SVT vs atrial tachycardia 07/26 HR improved with IV Lopressor, finish loading dose of amiodarone and started on amiodarone 200 mg by mouth daily on August 07, continue Toprol XL Acute blood loss anemia. Resolved s/p blood loss at site of decub ulcer patient received 2 unit of packed RBC continue ferrous sulfate b.i.d. H/H stable CBC check periodically Traumatic SAH CT brain 06/26 ? New small areas of extra-axial hemorrhage adjacent to the left posterior parietal lobe, bilateral occipital lobes and in the occipital horns of both lateral ventricles, repeat CT 06/28 unchanged seen by neuro - AC was held for two weeks no headache, no dizziness No other complications Acute hypoxic respiratory failure due to PNA. Resolved finished 10d of ABX back on room air Urinary retention failed voiding trial x2 continue tamsulosin and finasteride seen by urology, continue roberts upon discharge - outpatient urology follow up Hyponatremia resolved s/p urea cortisol, TSH wnl Mechanical fall difficulty ambulating; awaiting SNF placement, PT has been working with him I do not think he will walk again generalized weakness 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 but not clinically NPH per Neurology incidental 1.3cm pancreatic lesions may reflect adjacent pancreatic cysts outpt MRI/MRCP DM2? : fs acceptable continue Lantus, SSI adjusted . HTN Stable blood pressures, continue metoprolol losartan and hydralazine discontinued due to soft blood pressures HLD statin b/l eye dryness (clear tearing,no erythema or pain or vision change) added artifical tears drops rash bendaryl cream helping cough 2/4, CXR no pna VTE ppx: SCDs,? eliquis Full code Attending - Dr. Freedman ongoing? 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 Quality Stroke Does the patient have a stroke diagnosis?: No VTE Prior VTE?: No VTE Risk Level:: Medical - moderate - high VTE Device Contraindication: Treatment Not Indicated VTE Drug Contraindication: N/A - Med Ordered
[2022-09-21] MEDS: Insulin Lispro 100 UNIT/ML 3 ML VIAL SUBCUT ×2 (12:04→20:26)
[2022-09-21 16:22] VITALS: BP 131/59; PULSE 79; RESP 16; TEMP 36.9; O2SAT 93
[2022-09-21 16:37] LABS: Glucose, Whole Blood 134 mg/dL (60-115)
[2022-09-21] MEDS: oxyCODONE HCl Immed Release 5 MG TABLET PO (18:09)
[2022-09-21 19:47] VITALS: BP 117/58; PULSE 78; RESP 16; TEMP 37.1; O2SAT 97
[2022-09-21 20:13] LABS: Glucose, Whole Blood 179 mg/dL (60-115)
[2022-09-21] MEDS: Insulin Glargine,Hum.rec.anlog 100 UNIT/ML 10 ML VIAL SUBCUT (20:26)
[2022-09-22] MEDS: diphenhydrAMINE HCl 2 % Cream 28 GM TUBE 1 APPL TOPICAL (00:30)
[2022-09-22 04:00] VITALS: BP 130/59; PULSE 87; RESP 20; TEMP 36.6; O2SAT 97
[2022-09-22 07:55] LABS: Glucose, Whole Blood 74 mg/dL (60-115)
[2022-09-22 08:00] VITALS: BP 137/63; RESP 18; TEMP 36.7; O2SAT 96
[2022-09-22] MEDS: Insulin Glargine,Hum.rec.anlog 100 UNIT/ML 10 ML VIAL 25 UNIT SUBCUT (08:42)
[2022-09-22] MEDS: Metoprolol Succinate ER 100 MG TAB.ER.24H PO (08:42)
[2022-09-22] MEDS: Tamsulosin HCL 0.4 MG CAPSULE 0.8 MG PO (08:42)
[2022-09-22] MEDS: metFORMIN HCl 850 MG TABLET PO ×2 (08:42→17:08)
[2022-09-22] MEDS: Finasteride 5 MG TABLET PO (08:42)
[2022-09-22] MEDS: Amiodarone HCL 200 MG TABLET PO (08:42)
[2022-09-22] MEDS: Apixaban 5 MG TABLET PO ×2 (08:43→21:50)
[2022-09-22] MEDS: Acetaminophen 325 MG TABLET 650 MG PO (08:43)
[2022-09-22] MEDS: Ferrous Sulfate 324 MG TABLET.DR PO ×2 (08:43→17:08)
--- NOTE | 2022-09-22 10:18 | P.PNIM_ITS ---
Subjective Subjective Date of Service: 09/22/22 Interval History: seen and examined this morning follow up for placement, decubitus ulcer reporting rash on back, itchy; no other complaints Review of Systems Review of Systems: Yes all other systems are reviewed and are negative Constitutional Constitutional: Denies chills and Denies fever(s) Cardiovascular Cardiovascular: Denies chest pain, Denies palpitations and Denies dyspnea Respiratory Respiratory: Denies cough and Denies dyspnea Endocrine Endocrine: Denies palpitations Physical Exam Vital Signs: Vital Signs: Last Vital Signs Temp 98.1 F 09/22/22 08:00 Pulse 87 09/22/22 04:00 Resp 18 09/22/22 08:00 BP 137/63 09/22/22 08:00 Pulse Ox 96 09/22/22 08:00 O2 Del Method 09/22/22 08:00 O2 Flow Rate 2 09/04/22 12:48 BMI result Body Mass Index 26.6 Appearing in no acute distress lung sounds are clear to auscultation heart regular rate rhythm, clear S1, S2 positive bowel sounds, abdomen is soft, nontender neuro patient is alert x3, no focal deficits sacral/coccyx wound Objective Data Active Medications Acetaminophen (Acetaminophen 325 Mg Tablet) 650 mg PO Q6H PRN PRN Reason: Pain, Mild (Pain Scale 1-3) Last Admin: 09/22/22 08:43 Dose: 650 mg Documented By: NARCISO Amiodarone HCl (Amiodarone Hcl 200 Mg Tablet) 200 mg PO DAILY [facility] Last Admin: 09/22/22 08:42 Dose: 200 mg Documented By: NARCISO Apixaban (Apixaban 5 Mg Tablet) 5 mg PO BID [facility] Last Admin: 09/22/22 08:43 Dose: 5 mg Documented By: NARCISO Artificial Tears (Artificial Tears 15 Ml Drops) 1 drop EYE-BOTH Q4H PRN PRN Reason: tearin Last Admin: 09/02/22 20:26 Dose: 1 drop Documented By: NARCISO Benzocaine (Throat Lozenge, Medicated Lozenge) 1 lozenge MUCOUS MEM Q2H PRN PRN Reason: Sore Throat Dextrose (Dextrose 50 % 25 Gm/50 Ml Syringe) 25 gm IVPUSH Q15M PRN; Protocol PRN Reason: per Hypoglycemia Standing Ord. Ferrous Sulfate (Ferrous Sulfate 324 Mg Tablet.) 324 mg PO BIDWM [facility] Last Admin: 09/22/22 08:43 Dose: 324 mg Documented By: NARCISO Finasteride (Finasteride 5 Mg Tablet) 5 mg PO DAILY [facility] Last Admin: 09/22/22 08:42 Dose: 5 mg Documented By: NARCISO Glucose (Glucose Gel 15 Gm Gel..Gram.) 15 gm PO Q15M PRN; Protocol PRN Reason: per Hypoglycemia Standing Ord. Guaifenesin (Guaifenesin 100 Mg/5 Ml Liquid) 5 ml PO Q6H PRN PRN Reason: Cough Insulin Glargine (Insulin Glargine,Hum.Rec.Anlog 100 Unit/Ml 10 Ml Vial) 5 unit SUBCUT BEDTIME [facility] Last Admin: 09/21/22 20:26 Dose: 5 unit Documented By: TOM Insulin Glargine (Insulin Glargine,Hum.Rec.Anlog 100 Unit/Ml 10 Ml Vial) 25 unit SUBCUT DAILY@0730 [facility] Last Admin: 09/22/22 08:42 Dose: 25 unit Documented By: NARCISO Insulin Human Lispro (Insulin Lispro 100 Unit/Ml 3 Ml Vial) 0 unit SUBCUT QIDACHS [facility]; Protocol Last Admin: 09/22/22 07:58 Dose: Not Given Documented By: NARCISO Non-Admin Reason: No Insulin Coverage Metformin HCl (Metformin Hcl 850 Mg Tablet) 850 mg PO BIDWM [facility] Last Admin: 09/22/22 08:42 Dose: 850 mg Documented By: NARCISO Metoprolol Succinate (Metoprolol Succinate Er 100 Mg Tab.Er.24h) 100 mg PO DAILY [facility] Last Admin: 09/22/22 08:42 Dose: 100 mg Documented By: NARCISO Oxycodone HCl (Oxycodone Hcl Immed Release 5 Mg Tablet) 5 mg PO Q4H PRN PRN Reason: Pain, Moderate (Pain Scale 4-6 Last Admin: 09/21/22 18:09 Dose: 5 mg Documented By: NARCISO Sodium Hypochlorite (Sodium Hypochlorite 0.25% 473 Ml Solution) 1 appl TOPICAL BID [facility] Last Admin: 09/22/22 08:43 Dose: 1 appl Documented By: NARCISO Tamsulosin HCl (Tamsulosin Hcl 0.4 Mg Capsule) 0.8 mg PO DAILY [facility] Last Admin: 09/22/22 08:42 Dose: 0.8 mg Documented By: ANRCISO Zinc Acetate/Diphenhydramine (Diphenhydramine Hcl 2 % Cream 28 Gm Tube) 1 appl TOPICAL TID PRN; Protocol PRN Reason: itching Last Admin: 09/22/22 00:30 Dose: 1 appl Documented By: TOM Labs 09/04/22 08:33 09/15/22 06:06 Labs: Laboratory Results - last 24 hr 09/21/22 09/21/22 09/22/22 16:21 20:09 07:30 POC Glucose 134 H 179 H 74 Assessment and Plan (1) Stage 4 decubitus ulcer: Status: Acute Plan 74yo M with DM2, HTN, HLD, chronic venous stasis dermatitis presented with mechanical fall, admitted for hypoxia due to PNA Sacral decubitus ulcer.? Unstageable, necrotic 10cm x10 cm with 4 cm depth frequent turn,air loss? bed ,continue wound care Improving s/p debridements 07/08, 07/17, 1/2 s/p wound vac placement 07/22/22 - removed 07/25 after it became soiled continue wet to dry dressings , being followed by General surgery- d/w surgery - wound vac not helping and would avoid Atrial flutter/fib, rate stable LVEF >70% continue toprol xl and Eliquis Episode of SVT vs atrial tachycardia 07/26 HR improved with IV Lopressor, finish loading dose of amiodarone and started on amiodarone 200 mg by mouth daily on August 07, continue Toprol XL Acute blood loss anemia. Resolved s/p blood loss at site of decub ulcer patient received 2 unit of packed RBC continue ferrous sulfate b.i.d. H/H stable CBC check periodically Traumatic SAH CT brain 06/26 ? New small areas of extra-axial hemorrhage adjacent to the left posterior parietal lobe, bilateral occipital lobes and in the occipital horns of both lateral ventricles, repeat CT 06/28 unchanged seen by neuro - AC was held for two weeks no headache, no dizziness No other complications Acute hypoxic respiratory failure due to PNA. Resolved finished 10d of ABX back on room air Urinary retention failed voiding trial x2 continue tamsulosin and finasteride seen by urology, continue roberts upon discharge - outpatient urology follow up Hyponatremia resolved s/p urea cortisol, TSH wnl Mechanical fall difficulty ambulating; awaiting SNF placement, PT has been working with him I do not think he will walk again generalized weakness 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 but not clinically NPH per Neurology incidental 1.3cm pancreatic lesions may reflect adjacent pancreatic cysts outpt MRI/MRCP DM2? : fs acceptable continue Lantus, SSI adjusted . HTN Stable blood pressures, continue metoprolol losartan and hydralazine discontinued due to soft blood pressures HLD statin b/l eye dryness (clear tearing,no erythema or pain or vision change) added artifical tears drops rash bendaryl cream helping cough /, CXR no pna VTE ppx: SCDs,? eliquis Full code Attending - Dr. Freedman ongoing? 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 Quality Stroke Does the patient have a stroke diagnosis?: No VTE Prior VTE?: No VTE Risk Level:: Medical - moderate - high VTE Device Contraindication: Treatment Not Indicated VTE Drug Contraindication: N/A - Med Ordered
[2022-09-22 11:28] LABS: Glucose, Whole Blood 193 mg/dL (60-115)
[2022-09-22] MEDS: Insulin Lispro 100 UNIT/ML 3 ML VIAL SUBCUT ×2 (12:36→17:08)
[2022-09-22 16:00] VITALS: BP 129/62; PULSE 82; RESP 18; TEMP 36.7; O2SAT 97
[2022-09-22 16:52] LABS: Glucose, Whole Blood 205 mg/dL (60-115)
[2022-09-22] MEDS: oxyCODONE HCl Immed Release 5 MG TABLET PO (17:07)
[2022-09-22 19:53] VITALS: BP 117/59; PULSE 86; RESP 18; TEMP 36.5; O2SAT 96
[2022-09-22 20:51] LABS: Glucose, Whole Blood 127 mg/dL (60-115)
[2022-09-22] MEDS: Insulin Glargine,Hum.rec.anlog 100 UNIT/ML 10 ML VIAL SUBCUT (21:54)
[2022-09-23] MEDS: oxyCODONE HCl Immed Release 5 MG TABLET PO (01:46)
[2022-09-23] MEDS: Acetaminophen 325 MG TABLET 650 MG PO ×2 (02:49→16:39)
[2022-09-23 04:00] VITALS: BP 109/53; PULSE 74; RESP 20; TEMP 36.2; O2SAT 97
[2022-09-23 07:22] LABS: Glucose, Whole Blood 61 mg/dL (60-115)
[2022-09-23 07:28] VITALS: BP 114/57; PULSE 75; RESP 16; TEMP 36.7; O2SAT 94
[2022-09-23 08:44] LABS: Glucose, Whole Blood 188 mg/dL (60-115)
--- NOTE | 2022-09-23 09:20 | HO.PM.IMPN ---
Subjective Subjective Date of Service: 09/23/22 Interval History: seen and examined this morning follow up for placement, decubitus ulcer reporting rash on back, itchy; no other complaints Review of Systems Review of Systems: Yes all other systems are reviewed and are negative Constitutional Constitutional: Denies chills and Denies fever(s) Cardiovascular Cardiovascular: Denies chest pain, Denies palpitations and Denies dyspnea Respiratory Respiratory: Denies cough and Denies dyspnea Endocrine Endocrine: Denies palpitations Physical Exam Vital Signs: Vital Signs: Last Vital Signs Temp 98.0 F 09/23/22 07:28 Pulse 75 09/23/22 07:28 Resp 16 09/23/22 07:28 BP 114/57 L 09/23/22 07:28 Pulse Ox 94 09/23/22 07:28 O2 Del Method 09/23/22 07:28 O2 Flow Rate 2 09/04/22 12:48 BMI result Body Mass Index 26.6 Appearing in no acute distress lung sounds are clear to auscultation heart regular rate rhythm, clear S1, S2 positive bowel sounds, abdomen is soft, nontender neuro patient is alert x3, no focal deficits Objective Data Active Medications Acetaminophen (Acetaminophen 325 Mg Tablet) 650 mg PO Q6H PRN PRN Reason: Pain, Mild (Pain Scale 1-3) Last Admin: 09/23/22 02:49 Dose: 650 mg Documented By: TOM Amiodarone HCl (Amiodarone Hcl 200 Mg Tablet) 200 mg PO DAILY ON [facility] OF [facility] Last Admin: 09/22/22 08:42 Dose: 200 mg Documented By: NARCISO Apixaban (Apixaban 5 Mg Tablet) 5 mg PO BID ON LICENSE OF [facility] Last Admin: 09/22/22 21:50 Dose: 5 mg Documented By: TOM Artificial Tears (Artificial Tears 15 Ml Drops) 1 drop EYE-BOTH Q4H PRN PRN Reason: tearin Last Admin: 09/02/22 20:26 Dose: 1 drop Documented By: NARCISO Benzocaine (Throat Lozenge, Medicated Lozenge) 1 lozenge MUCOUS MEM Q2H PRN PRN Reason: Sore Throat Dextrose (Dextrose 50 % 25 Gm/50 Ml Syringe) 25 gm IVPUSH Q15M PRN; Protocol PRN Reason: per Hypoglycemia Standing Ord. Ferrous Sulfate (Ferrous Sulfate 324 Mg Tablet.) 324 mg PO BIDWM ON LICENSE OF [facility] Last Admin: 09/22/22 17:08 Dose: 324 mg Documented By: NARCISO Finasteride (Finasteride 5 Mg Tablet) 5 mg PO DAILY ON [facility] OF [facility] Last Admin: 09/22/22 08:42 Dose: 5 mg Documented By: NARCISO Glucose (Glucose Gel 15 Gm Gel..Gram.) 15 gm PO Q15M PRN; Protocol PRN Reason: per Hypoglycemia Standing Ord. Guaifenesin (Guaifenesin 100 Mg/5 Ml Liquid) 5 ml PO Q6H PRN PRN Reason: Cough Insulin Glargine (Insulin Glargine,Hum.Rec.Anlog 100 Unit/Ml 10 Ml Vial) 5 unit SUBCUT BEDTIME ON LICENSE OF [facility] Last Admin: 09/22/22 21:54 Dose: 5 unit Documented By: TOM Insulin Glargine (Insulin Glargine,Hum.Rec.Anlog 100 Unit/Ml 10 Ml Vial) 25 unit SUBCUT DAILY@0730 ON LICENSE OF [facility] Last Admin: 09/22/22 08:42 Dose: 25 unit Documented By: NARCISO Insulin Human Lispro (Insulin Lispro 100 Unit/Ml 3 Ml Vial) 0 unit SUBCUT QIDACHS ON LICENSE OF [facility]; Protocol Last Admin: 09/23/22 08:02 Dose: Not Given Documented By: DIPAK Non-Admin Reason: No Insulin Coverage Metformin HCl (Metformin Hcl 850 Mg Tablet) 850 mg PO BIDWM ON LICENSE OF [facility] Last Admin: 09/22/22 17:08 Dose: 850 mg Documented By: NARCISO Metoprolol Succinate (Metoprolol Succinate Er 100 Mg Tab.Er.24h) 100 mg PO DAILY ON [facility] OF [facility] Last Admin: 09/22/22 08:42 Dose: 100 mg Documented By: NARCISO Oxycodone HCl (Oxycodone Hcl Immed Release 5 Mg Tablet) 5 mg PO Q4H PRN PRN Reason: Pain, Moderate (Pain Scale 4-6 Last Admin: 09/23/22 01:46 Dose: 5 mg Documented By: TOM Sodium Hypochlorite (Sodium Hypochlorite 0.25% 473 Ml Solution) 1 appl TOPICAL BID ON LICENSE OF [facility] Last Admin: 09/22/22 21:53 Dose: 1 appl Documented By: TOM Tamsulosin HCl (Tamsulosin Hcl 0.4 Mg Capsule) 0.8 mg PO DAILY [facility] Last Admin: 09/22/22 08:42 Dose: 0.8 mg Documented By: NARCISO Zinc Acetate/Diphenhydramine (Diphenhydramine Hcl 2 % Cream 28 Gm Tube) 1 appl TOPICAL TID PRN; Protocol PRN Reason: itching Last Admin: 09/22/22 00:30 Dose: 1 appl Documented By: TOM Labs 09/04/22 08:33 09/15/22 06:06 Labs: Laboratory Results - last 24 hr 09/21/22 09/22/22 09/22/22 11:41 11:22 16:42 POC Glucose 188 H 193 H 205 H 09/22/22 09/23/22 20:47 07:17 POC Glucose 127 H 61 Assessment and Plan (1) Stage 4 decubitus ulcer: Status: Acute Plan 74yo M with DM2, HTN, HLD, chronic venous stasis dermatitis presented with mechanical fall, admitted for hypoxia due to PNA Sacral decubitus ulcer.? Unstageable, necrotic 10cm x10 cm with 4 cm depth frequent turn,air loss? bed ,continue wound care Improving s/p debridements 07/08, 07/17, 1/2 s/p wound vac placement 07/22/22 - removed 07/25 after it became soiled continue wet to dry dressings , being followed by General surgery- d/w surgery - wound vac not helping and would avoid Atrial flutter/fib, rate stable LVEF >70% continue toprol xl and Eliquis Episode of SVT vs atrial tachycardia 07/26 HR improved with IV Lopressor, finish loading dose of amiodarone and started on amiodarone 200 mg by mouth daily on August 07, continue Toprol XL Acute blood loss anemia. Resolved s/p blood loss at site of decub ulcer patient received 2 unit of packed RBC continue ferrous sulfate b.i.d. H/H stable CBC check periodically Traumatic SAH CT brain 06/26 ? New small areas of extra-axial hemorrhage adjacent to the left posterior parietal lobe, bilateral occipital lobes and in the occipital horns of both lateral ventricles, repeat CT 06/28 unchanged seen by neuro - AC was held for two weeks no headache, no dizziness No other complications Acute hypoxic respiratory failure due to PNA. Resolved finished 10d of ABX back on room air Urinary retention failed voiding trial x2 continue tamsulosin and finasteride seen by urology, continue roberts upon discharge - outpatient urology follow up Hyponatremia resolved s/p urea cortisol, TSH wnl Mechanical fall difficulty ambulating; awaiting SNF placement, PT has been working with him I do not think he will walk again generalized weakness 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 but not clinically NPH per Neurology incidental 1.3cm pancreatic lesions may reflect adjacent pancreatic cysts outpt MRI/MRCP DM2? : fs acceptable continue Lantus, SSI adjusted . HTN Stable blood pressures, continue metoprolol losartan and hydralazine discontinued due to soft blood pressures HLD statin b/l eye dryness (clear tearing,no erythema or pain or vision change) added artifical tears drops rash bendaryl cream helping cough 2/, CXR no pna VTE ppx: SCDs,? eliquis Full code Attending - Dr. Contreras ongoing? inpatient hospitalization for the following reasons: SNF placement and follow-up on stage IV decub ulcer Time Spent With Patient Time: Total time managing care of this patient today ____ minutes. Quality Stroke Does the patient have a stroke diagnosis?: No VTE Prior VTE?: No VTE Risk Level:: Medical - moderate - high VTE Device Contraindication: Treatment Not Indicated VTE Drug Contraindication: N/A - Med Ordered
[2022-09-23 09:34] LABS: Hematocrit 35.4 % (42.0-52.0); Hemoglobin 10.7 g/dl (14.0-18.0); Mean Corpuscular HGB Conc 30.2 g/dl (31.0-36.0); Mean Corpuscular Volume 79.4 fL (80.0-98.0); Mean Platelet Volume 8.1 fL (9.4-12.4); Platelet Count 232 X10*3/uL (160-400); Red Blood Count 4.46 X10*6/uL (4.60-5.80); Red Cell Distribution Width 15.9 % (11.0-16.0); White Blood Count 6.7 X10*3/uL (4.8-10.8)
[2022-09-23 09:44] LABS: Anion Gap 12 (12-20); Blood Urea Nitrogen 8 mg/dL (9-16); Calcium 8.5 mg/dL (8.4-10.2); Carbon Dioxide 31 mmol/L (22-29); Chloride 98 mmol/L (96-108); Creatinine Clr Calc Pharmacy 124.7; Estimated Glomerular Filt Rate > 60; Glucose Random 118 mg/dL (60-115); Potassium 3.7 mmol/L (3.3-5.1); Sodium 137 mmol/L (135-145)
[2022-09-23] MEDS: Apixaban 5 MG TABLET PO ×2 (09:45→20:57)
[2022-09-23] MEDS: Tamsulosin HCL 0.4 MG CAPSULE 0.8 MG PO (09:45)
[2022-09-23] MEDS: Ferrous Sulfate 324 MG TABLET.DR PO ×2 (09:45→16:39)
[2022-09-23] MEDS: Metoprolol Succinate ER 100 MG TAB.ER.24H PO (09:45)
[2022-09-23] MEDS: Amiodarone HCL 200 MG TABLET PO (09:45)
[2022-09-23] MEDS: Finasteride 5 MG TABLET PO (09:45)
[2022-09-23 11:08] LABS: Glucose, Whole Blood 173 mg/dL (60-115)
[2022-09-23] MEDS: Insulin Lispro 100 UNIT/ML 3 ML VIAL SUBCUT ×3 (12:01→20:57)
[2022-09-23 16:00] VITALS: BP 136/63; PULSE 82; RESP 17; TEMP 37.2; O2SAT 94
[2022-09-23 16:26] LABS: Glucose, Whole Blood 177 mg/dL (60-115)
[2022-09-23] MEDS: metFORMIN HCl 850 MG TABLET PO (16:43)
[2022-09-23 19:44] VITALS: BP 126/59; PULSE 81; RESP 17; TEMP 36.8; O2SAT 94
[2022-09-23 19:54] LABS: Glucose, Whole Blood 262 mg/dL (60-115)
[2022-09-23] MEDS: Insulin Glargine,Hum.rec.anlog 100 UNIT/ML 10 ML VIAL SUBCUT (20:56)
[2022-09-24] MEDS: oxyCODONE HCl Immed Release 5 MG TABLET PO ×2 (00:15→18:23)
[2022-09-24 03:55] VITALS: BP 118/63; PULSE 77; RESP 18; TEMP 36.6; O2SAT 97
[2022-09-24 07:30] LABS: Glucose, Whole Blood 92 mg/dL (60-115)
[2022-09-24 07:31] VITALS: BP 109/57; PULSE 80; RESP 18; TEMP 36.8; O2SAT 95
--- NOTE | 2022-09-24 09:21 | P.PNIM_ITS ---
Subjective Subjective Date of Service: 09/24/22 Interval History: seen and examined this morning follow up for placement, decubitus ulcer reporting rash on back, itchy; no other complaints Review of Systems Review of Systems: Yes all other systems are reviewed and are negative Constitutional Constitutional: Denies chills and Denies fever(s) Cardiovascular Cardiovascular: Denies chest pain, Denies palpitations and Denies dyspnea Respiratory Respiratory: Denies cough and Denies dyspnea Endocrine Endocrine: Denies palpitations Physical Exam Vital Signs: Vital Signs: Last Vital Signs Temp 98.3 F 09/24/22 07:31 Pulse 80 09/24/22 07:31 Resp 18 09/24/22 07:31 BP 109/57 L 09/24/22 07:31 Pulse Ox 95 09/24/22 07:31 O2 Del Method 09/24/22 07:31 O2 Flow Rate 2 09/04/22 12:48 BMI result Body Mass Index 26.6 Appearing in no acute distress lung sounds are clear to auscultation heart regular rate rhythm, clear S1, S2 positive bowel sounds, abdomen is soft, nontender neuro patient is alert x3, no focal deficits Objective Data Active Medications Acetaminophen (Acetaminophen 325 Mg Tablet) 650 mg PO Q6H PRN PRN Reason: Pain, Mild (Pain Scale 1-3) Last Admin: 09/23/22 16:39 Dose: 650 mg Documented By: ELVIRA Amiodarone HCl (Amiodarone Hcl 200 Mg Tablet) 200 mg PO DAILY [facility] Last Admin: 09/23/22 09:45 Dose: 200 mg Documented By: DIPAK Apixaban (Apixaban 5 Mg Tablet) 5 mg PO BID [facility] Last Admin: 09/23/22 20:57 Dose: 5 mg Documented By: PALAK Artificial Tears (Artificial Tears 15 Ml Drops) 1 drop EYE-BOTH Q4H PRN PRN Reason: tearin Last Admin: 09/02/22 20:26 Dose: 1 drop Documented By: NARCISO Benzocaine (Throat Lozenge, Medicated Lozenge) 1 lozenge MUCOUS MEM Q2H PRN PRN Reason: Sore Throat Dextrose (Dextrose 50 % 25 Gm/50 Ml Syringe) 25 gm IVPUSH Q15M PRN; Protocol PRN Reason: per Hypoglycemia Standing Ord. Ferrous Sulfate (Ferrous Sulfate 324 Mg Tablet.Dr) 324 mg PO BIDWM [facility] Last Admin: 09/23/22 16:39 Dose: 324 mg Documented By: ELVIRA Finasteride (Finasteride 5 Mg Tablet) 5 mg PO DAILY [facility] Last Admin: 09/23/22 09:45 Dose: 5 mg Documented By: DIPAK Glucose (Glucose Gel 15 Gm Gel..Gram.) 15 gm PO Q15M PRN; Protocol PRN Reason: per Hypoglycemia Standing Ord. Guaifenesin (Guaifenesin 100 Mg/5 Ml Liquid) 5 ml PO Q6H PRN PRN Reason: Cough Insulin Glargine (Insulin Glargine,Hum.Rec.Anlog 100 Unit/Ml 10 Ml Vial) 5 unit SUBCUT BEDTIME [facility] Last Admin: 09/23/22 20:56 Dose: 5 unit Documented By: PALAK Insulin Glargine (Insulin Glargine,Hum.Rec.Anlog 100 Unit/Ml 10 Ml Vial) 25 unit SUBCUT DAILY@0730 [facility] Last Admin: 09/23/22 09:44 Dose: Not Given Documented By: DIPAK Non-Admin Reason: No Insulin Coverage Insulin Human Lispro (Insulin Lispro 100 Unit/Ml 3 Ml Vial) 0 unit SUBCUT QIDACHS [facility]; Protocol Last Admin: 09/24/22 08:05 Dose: Not Given Documented By: DIPAK Non-Admin Reason: No Insulin Coverage Metformin HCl (Metformin Hcl 850 Mg Tablet) 850 mg PO BIDWM [facility] Last Admin: 09/23/22 16:43 Dose: 850 mg Documented By: ELVIRA Metoprolol Succinate (Metoprolol Succinate Er 100 Mg Tab.Er.24h) 100 mg PO DAILY [facility] Last Admin: 09/23/22 09:45 Dose: 100 mg Documented By: DIPAK Oxycodone HCl (Oxycodone Hcl Immed Release 5 Mg Tablet) 5 mg PO Q4H PRN PRN Reason: Pain, Moderate (Pain Scale 4-6 Last Admin: 09/24/22 00:15 Dose: 5 mg Documented By: MARIANN Sodium Hypochlorite (Sodium Hypochlorite 0.25% 473 Ml Solution) 1 appl TOPICAL BID [facility] Last Admin: 09/23/22 20:58 Dose: 1 appl Documented By: PALAK Tamsulosin HCl (Tamsulosin Hcl 0.4 Mg Capsule) 0.8 mg PO DAILY [facility] Last Admin: 09/23/22 09:45 Dose: 0.8 mg Documented By: DIPAK Zinc Acetate/Diphenhydramine (Diphenhydramine Hcl 2 % Cream 28 Gm Tube) 1 appl TOPICAL TID PRN; Protocol PRN Reason: itching Last Admin: 09/22/22 00:30 Dose: 1 appl Documented By: TOM Labs 09/23/22 09:02 09/23/22 09:02 Labs: Laboratory Results - last 24 hr 09/23/22 09/23/22 09/23/22 09:02 09:02 11:00 MCV 79.4 L MCH 24.0 L MCHC 30.2 L RDW 15.9 Plt Count 232 MPV 8.1 L Absolute Nucleated RBC 0.000 Nucleated RBC % (auto) 0.0 Anion Gap 12 Estim Creat Clear Calc 124.7 Estimated GFR > 60 POC Glucose 173 H Random Glucose 118 H Calcium 8.5 09/23/22 09/23/22 09/24/22 16:23 19:45 07:24 MCV MCH MCHC RDW Plt Count MPV Absolute Nucleated RBC Nucleated RBC % (auto) Anion Gap Estim Creat Clear Calc Estimated GFR POC Glucose 177 H 262 H 92 Random Glucose Calcium Assessment and Plan (1) Stage 4 decubitus ulcer: Status: Acute Plan 74yo M with DM2, HTN, HLD, chronic venous stasis dermatitis presented with mechanical fall, admitted for hypoxia due to PNA Sacral decubitus ulcer.? Unstageable, necrotic 10cm x10 cm with 4 cm depth frequent turn,air loss? bed ,continue wound care Improving s/p debridements 07/08, 07/17, 1/2 s/p wound vac placement 07/22/22 - removed 07/25 after it became soiled continue wet to dry dressings , being followed by General surgery- d/w surgery - wound vac not helping and would avoid Atrial flutter/fib, rate stable LVEF >70% continue toprol xl and Eliquis Episode of SVT vs atrial tachycardia 07/26 HR improved with IV Lopressor, finish loading dose of amiodarone and started on amiodarone 200 mg by mouth daily on August 07, continue Toprol XL Acute blood loss anemia. Resolved s/p blood loss at site of decub ulcer patient received 2 unit of packed RBC continue ferrous sulfate b.i.d. H/H stable CBC check periodically Traumatic SAH CT brain 06/26 ? New small areas of extra-axial hemorrhage adjacent to the left posterior parietal lobe, bilateral occipital lobes and in the occipital horns of both lateral ventricles, repeat CT 06/28 unchanged seen by neuro - AC was held for two weeks no headache, no dizziness No other complications Acute hypoxic respiratory failure due to PNA. Resolved finished 10d of ABX back on room air Urinary retention failed voiding trial x2 continue tamsulosin and finasteride seen by urology, continue roberts upon discharge - outpatient urology follow up Hyponatremia resolved s/p urea cortisol, TSH wnl Mechanical fall difficulty ambulating; awaiting SNF placement, PT has been working with him I do not think he will walk again generalized weakness 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 but not clinically NPH per Neurology incidental 1.3cm pancreatic lesions may reflect adjacent pancreatic cysts outpt MRI/MRCP DM2? : fs acceptable continue Lantus, SSI adjusted . HTN Stable blood pressures, continue metoprolol losartan and hydralazine discontinued due to soft blood pressures HLD statin b/l eye dryness (clear tearing,no erythema or pain or vision change) added artifical tears drops rash bendaryl cream helping cough 2/4, CXR no pna VTE ppx: SCDs,? eliquis Full code Attending - Dr. Contreras ongoing? inpatient hospitalization for the following reasons: SNF placement and follow-up on stage IV decub ulcer Time Spent With Patient Time: Total time managing care of this patient today ____ minutes. Quality Stroke Does the patient have a stroke diagnosis?: No VTE Prior VTE?: No VTE Risk Level:: Medical - moderate - high VTE Device Contraindication: Treatment Not Indicated VTE Drug Contraindication: N/A - Med Ordered
[2022-09-24] MEDS: Tamsulosin HCL 0.4 MG CAPSULE 0.8 MG PO (09:22)
[2022-09-24] MEDS: Finasteride 5 MG TABLET PO (09:22)
[2022-09-24] MEDS: Insulin Glargine,Hum.rec.anlog 100 UNIT/ML 10 ML VIAL 25 UNIT SUBCUT (09:22)
[2022-09-24] MEDS: Amiodarone HCL 200 MG TABLET PO (09:22)
[2022-09-24] MEDS: Apixaban 5 MG TABLET PO ×2 (09:22→21:57)
[2022-09-24] MEDS: Metoprolol Succinate ER 100 MG TAB.ER.24H PO (09:22)
[2022-09-24] MEDS: Ferrous Sulfate 324 MG TABLET.DR PO ×2 (09:23→16:41)
[2022-09-24] MEDS: metFORMIN HCl 850 MG TABLET PO ×2 (09:23→16:41)
[2022-09-24 11:04] LABS: Glucose, Whole Blood 204 mg/dL (60-115)
[2022-09-24] MEDS: Insulin Lispro 100 UNIT/ML 3 ML VIAL SUBCUT ×3 (12:07→21:57)
--- NOTE | 2022-09-24 14:48 | MHC.CM.PN ---
EMR REVIEWED, PT REMAINS MEDICALLY CLEARED FOR D/C HOWEVER PT HAS STILL YET TO RECEIVE A BED OFFER, SNF REFERRAL UPDATED AND EXPANDED AGAIN, CM HAD RECEIVED CALL FROM PT'S HCP/OLIVIA MALHOTRA REPORTING THAT [facility] COULD TAKE PT IF HE COULD START WORKING W/PT HOWEVER PT HAS BEEN DISCHARGED FROM PT SERVICES. CM TO DISCUSS W/HOSPITALIST AND CONT TO FOLLOW REFERRALS.
[2022-09-24 16:00] VITALS: BP 113/55; PULSE 79; RESP 18; TEMP 36.6; O2SAT 95
[2022-09-24 16:22] LABS: Glucose, Whole Blood 203 mg/dL (60-115)
[2022-09-24] MEDS: Acetaminophen 325 MG TABLET 650 MG PO (18:23)
[2022-09-24 19:35] VITALS: BP 102/54; PULSE 99; RESP 20; TEMP 36.6; O2SAT 97
[2022-09-24 19:37] LABS: Glucose, Whole Blood 190 mg/dL (60-115)
[2022-09-24] MEDS: Insulin Glargine,Hum.rec.anlog 100 UNIT/ML 10 ML VIAL SUBCUT (21:57)
[2022-09-24] MEDS: diphenhydrAMINE HCl 2 % Cream 28 GM TUBE 1 APPL TOPICAL (22:02)
[2022-09-25 03:59] VITALS: BP 117/56; PULSE 77; RESP 18; TEMP 36.3; O2SAT 96
[2022-09-25 07:20] VITALS: BP 133/62; PULSE 80; RESP 18; TEMP 36.6; O2SAT 95
[2022-09-25 07:25] LABS: Glucose, Whole Blood 141 mg/dL (60-115)
[2022-09-25] MEDS: Tamsulosin HCL 0.4 MG CAPSULE 0.8 MG PO (09:15)
[2022-09-25] MEDS: Ferrous Sulfate 324 MG TABLET.DR PO ×2 (09:15→17:06)
[2022-09-25] MEDS: Metoprolol Succinate ER 100 MG TAB.ER.24H PO (09:16)
[2022-09-25] MEDS: Amiodarone HCL 200 MG TABLET PO (09:16)
[2022-09-25] MEDS: metFORMIN HCl 850 MG TABLET PO ×2 (09:16→17:06)
[2022-09-25] MEDS: Apixaban 5 MG TABLET PO ×2 (09:16→21:45)
[2022-09-25] MEDS: Finasteride 5 MG TABLET PO (09:16)
[2022-09-25] MEDS: diphenhydrAMINE HCl 2 % Cream 28 GM TUBE 1 APPL TOPICAL (09:17)
[2022-09-25] MEDS: Acetaminophen 325 MG TABLET 650 MG PO ×2 (09:19→21:45)
[2022-09-25] MEDS: Insulin Glargine,Hum.rec.anlog 100 UNIT/ML 10 ML VIAL 25 UNIT SUBCUT (09:26)
[2022-09-25 11:20] LABS: Glucose, Whole Blood 234 mg/dL (60-115)
[2022-09-25] MEDS: Insulin Lispro 100 UNIT/ML 3 ML VIAL SUBCUT ×3 (11:56→21:48)
[2022-09-25] MEDS: oxyCODONE HCl Immed Release 5 MG TABLET PO (14:20)
--- NOTE | 2022-09-25 14:55 | HO.PM.IMPN ---
Subjective Subjective Date of Service: 09/25/22 Physical Exam Vital Signs: Vital Signs: Last Vital Signs Temp 97.9 F 09/25/22 07:20 Pulse 80 09/25/22 07:20 Resp 18 09/25/22 07:20 BP 133/62 09/25/22 07:20 Pulse Ox 95 09/25/22 07:20 O2 Del Method 09/25/22 07:20 O2 Flow Rate 2 09/04/22 12:48 BMI result Body Mass Index 26.6 Const: Other: Awake alert/clear oriented x3 Resp: Other: Clear to auscultation bilaterally Cardio: Other: No S4; positive S1-S2; no S3 murmurs rubs or gallops Skin: Other: coccyx ulcer itchy rash, upper back, flat, dry skin General skin exam: no rashes or lesions noted and ecchymosis Extrem: Other: No edema bilaterally Objective Data Active Medications Acetaminophen (Acetaminophen 325 Mg Tablet) 650 mg PO Q6H PRN PRN Reason: Pain, Mild (Pain Scale 1-3) Last Admin: 09/25/22 09:19 Dose: 650 mg Documented By: DIPAK Amiodarone HCl (Amiodarone Hcl 200 Mg Tablet) 200 mg PO DAILY [facility] Last Admin: 09/25/22 09:16 Dose: 200 mg Documented By: DIPAK Apixaban (Apixaban 5 Mg Tablet) 5 mg PO BID [facility] Last Admin: 09/25/22 09:16 Dose: 5 mg Documented By: DIPAK Artificial Tears (Artificial Tears 15 Ml Drops) 1 drop EYE-BOTH Q4H PRN PRN Reason: tearin Last Admin: 09/02/22 20:26 Dose: 1 drop Documented By: NACRISO Benzocaine (Throat Lozenge, Medicated Lozenge) 1 lozenge MUCOUS MEM Q2H PRN PRN Reason: Sore Throat Dextrose (Dextrose 50 % 25 Gm/50 Ml Syringe) 25 gm IVPUSH Q15M PRN; Protocol PRN Reason: per Hypoglycemia Standing Ord. Ferrous Sulfate (Ferrous Sulfate 324 Mg Tablet.) 324 mg PO BIDWM [facility] Last Admin: 09/25/22 09:15 Dose: 324 mg Documented By: DIPAK Finasteride (Finasteride 5 Mg Tablet) 5 mg PO DAILY [facility] Last Admin: 09/25/22 09:16 Dose: 5 mg Documented By: DIPAK Glucose (Glucose Gel 15 Gm Gel..Gram.) 15 gm PO Q15M PRN; Protocol PRN Reason: per Hypoglycemia Standing Ord. Guaifenesin (Guaifenesin 100 Mg/5 Ml Liquid) 5 ml PO Q6H PRN PRN Reason: Cough Insulin Glargine (Insulin Glargine,Hum.Rec.Anlog 100 Unit/Ml 10 Ml Vial) 5 unit SUBCUT BEDTIME [facility] Last Admin: 09/24/22 21:57 Dose: 5 unit Documented By: RIC Insulin Glargine (Insulin Glargine,Hum.Rec.Anlog 100 Unit/Ml 10 Ml Vial) 25 unit SUBCUT DAILY@0730 [facility] Last Admin: 09/25/22 09:26 Dose: 25 unit Documented By: DIPAK Insulin Human Lispro (Insulin Lispro 100 Unit/Ml 3 Ml Vial) 0 unit SUBCUT QIDACHS [facility]; Protocol Last Admin: 09/25/22 11:56 Dose: 4 unit Documented By: DIPAK Metformin HCl (Metformin Hcl 850 Mg Tablet) 850 mg PO BIDWM [facility] Last Admin: 09/25/22 09:16 Dose: 850 mg Documented By: DIPAK Metoprolol Succinate (Metoprolol Succinate Er 100 Mg Tab.Er.24h) 100 mg PO DAILY [facility] Last Admin: 09/25/22 09:16 Dose: 100 mg Documented By: DIPAK Oxycodone HCl (Oxycodone Hcl Immed Release 5 Mg Tablet) 5 mg PO Q4H PRN PRN Reason: Pain, Moderate (Pain Scale 4-6 Last Admin: 09/25/22 14:20 Dose: 5 mg Documented By: BRENDA Sodium Hypochlorite (Sodium Hypochlorite 0.25% 473 Ml Solution) 1 appl TOPICAL BID [facility] Last Admin: 09/25/22 09:16 Dose: 1 appl Documented By: DIPAK Tamsulosin HCl (Tamsulosin Hcl 0.4 Mg Capsule) 0.8 mg PO DAILY [facility] Last Admin: 09/25/22 09:15 Dose: 0.8 mg Documented By: DIPAK Zinc Acetate/Diphenhydramine (Diphenhydramine Hcl 2 % Cream 28 Gm Tube) 1 appl TOPICAL TID PRN; Protocol PRN Reason: itching Last Admin: 09/25/22 09:17 Dose: 1 appl Documented By: DIPAK Labs 09/23/22 09:02 09/23/22 09:02 Labs: Laboratory Results - last 24 hr 09/24/22 09/24/22 09/25/22 16:19 19:33 07:18 POC Glucose 203 H 190 H 141 H 09/25/22 11:16 POC Glucose 234 H Assessment and Plan (1) Stage 4 decubitus ulcer: Status: Acute Plan 74yo M with DM2, HTN, HLD, chronic venous stasis dermatitis presented with mechanical fall, admitted for hypoxia due to PNA awaiting safe placement. Much clearer thought process today Sacral decubitus ulcer.? Unstageable, necrotic 10cm x10 cm with 4 cm depth frequent turn,air loss? bed ,continue wound care Improving s/p debridements 07/08, 07/17, 1 s/p wound vac placement 07/22/22 - removed 07/25 after it became soiled continue wet to dry dressings , being followed by General surgery- d/w surgery - wound vac not helping and would avoid Atrial flutter/fib, rate stable LVEF >70% continue toprol xl and Eliquis Episode of SVT vs atrial tachycardia 07/26 HR improved with IV Lopressor, finish loading dose of amiodarone and started on amiodarone 200 mg by mouth daily on August 07, continue Toprol XL Acute blood loss anemia. Resolved s/p blood loss at site of decub ulcer patient received 2 unit of packed RBC continue ferrous sulfate b.i.d. H/H stable CBC check periodically Traumatic SAH CT brain 06/26 ? New small areas of extra-axial hemorrhage adjacent to the left posterior parietal lobe, bilateral occipital lobes and in the occipital horns of both lateral ventricles, repeat CT 06/28 unchanged seen by neuro - AC was held for two weeks no headache, no dizziness No other complications Acute hypoxic respiratory failure due to PNA. Resolved finished 10d of ABX back on room air Urinary retention failed voiding trial x2 continue tamsulosin and finasteride seen by urology, continue roberts upon discharge - outpatient urology follow up Hyponatremia resolved s/p urea cortisol, TSH wnl Mechanical fall difficulty ambulating; awaiting SNF placement, PT has been working with him I do not think he will walk again generalized weakness 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 but not clinically NPH per Neurology incidental 1.3cm pancreatic lesions may reflect adjacent pancreatic cysts outpt MRI/MRCP DM2? : fs acceptable continue Lantus, SSI adjusted . HTN Stable blood pressures, continue metoprolol losartan and hydralazine discontinued due to soft blood pressures HLD statin b/l eye dryness (clear tearing,no erythema or pain or vision change) added artifical tears drops rash bendaryl cream helping cough 2/4, CXR no pna VTE ppx: SCDs,? eliquis Full code Attending - Dr. Contreras ongoing? inpatient hospitalization for the following reasons: SNF placement and follow-up on stage IV decub ulcer Time Spent With Patient Time: Total time managing care of this patient today ____ minutes. Quality Stroke Does the patient have a stroke diagnosis?: No VTE Prior VTE?: No VTE Risk Level:: Medical - moderate - high VTE Device Contraindication: Treatment Not Indicated VTE Drug Contraindication: N/A - Med Ordered
[2022-09-25 15:28] VITALS: BP 115/55; PULSE 86; RESP 18; TEMP 36.8; O2SAT 97
--- NOTE | 2022-09-25 16:04 | MHC.CM.PN ---
EMR REVIEWED, PT RE-EVALUATED PT W/D/C PLAN FOR LTC HOWEVER WILL TRIAL WORKING W/PT 3XWK FOR 1 WEEK, SNF REFERRAL UPDATED AND PT STILL AWAITING BED OFFER, CM WILL CONT TO FOLLOW.
[2022-09-25 16:18] LABS: Glucose, Whole Blood 172 mg/dL (60-115)
[2022-09-25 19:25] VITALS: BP 118/58; PULSE 77; RESP 17; TEMP 36.5; O2SAT 96
[2022-09-25 21:13] LABS: Glucose, Whole Blood 196 mg/dL (60-115)
[2022-09-25] MEDS: Insulin Glargine,Hum.rec.anlog 100 UNIT/ML 10 ML VIAL SUBCUT (21:47)
[2022-09-26 00:31] VITALS: BP 131/60; PULSE 75; RESP 16; TEMP 36.7; O2SAT 97
[2022-09-26 07:23] VITALS: BP 129/63; PULSE 79; RESP 18; TEMP 36.1; O2SAT 96
[2022-09-26 07:56] LABS: Glucose, Whole Blood 112 mg/dL (60-115)
[2022-09-26] MEDS: metFORMIN HCl 850 MG TABLET PO ×2 (09:59→17:14)
[2022-09-26] MEDS: Ferrous Sulfate 324 MG TABLET.DR PO ×2 (09:59→17:14)
[2022-09-26] MEDS: oxyCODONE HCl Immed Release 5 MG TABLET PO (09:59)
[2022-09-26] MEDS: Metoprolol Succinate ER 100 MG TAB.ER.24H PO (09:59)
[2022-09-26] MEDS: Tamsulosin HCL 0.4 MG CAPSULE 0.8 MG PO (09:59)
[2022-09-26] MEDS: Finasteride 5 MG TABLET PO (09:59)
[2022-09-26] MEDS: Apixaban 5 MG TABLET PO ×2 (09:59→20:14)
[2022-09-26] MEDS: Amiodarone HCL 200 MG TABLET PO (10:00)
[2022-09-26] MEDS: Acetaminophen 325 MG TABLET 650 MG PO ×2 (10:00→20:14)
[2022-09-26] MEDS: Insulin Glargine,Hum.rec.anlog 100 UNIT/ML 10 ML VIAL 25 UNIT SUBCUT (10:01)
[2022-09-26 11:26] LABS: Glucose, Whole Blood 236 mg/dL (60-115)
[2022-09-26] MEDS: Insulin Lispro 100 UNIT/ML 3 ML VIAL SUBCUT ×3 (11:45→20:15)
--- NOTE | 2022-09-26 14:52 | P.PNIM_ITS ---
Subjective Subjective Date of Service: 09/26/22 Physical Exam Vital Signs: Vital Signs: Last Vital Signs Temp 96.9 F 09/26/22 07:23 Pulse 79 09/26/22 07:23 Resp 18 09/26/22 07:23 BP 129/63 09/26/22 07:23 Pulse Ox 96 09/26/22 07:23 O2 Del Method 09/26/22 07:23 O2 Flow Rate 2 09/04/22 12:48 BMI result Body Mass Index 26.6 Const: Other: Awake alert/clear oriented x3 Resp: Other: Clear to auscultation bilaterally Cardio: Other: No S4; positive S1-S2; no S3 murmurs rubs or gallops Skin: Other: coccyx ulcer itchy rash, upper back, flat, dry skin Extrem: Other: No edema bilaterally Objective Data Active Medications Acetaminophen (Acetaminophen 325 Mg Tablet) 650 mg PO Q6H PRN PRN Reason: Pain, Mild (Pain Scale 1-3) Last Admin: 09/26/22 10:00 Dose: 650 mg Documented By: JANINE Amiodarone HCl (Amiodarone Hcl 200 Mg Tablet) 200 mg PO DAILY [facility] Last Admin: 09/26/22 10:00 Dose: 200 mg Documented By: JANINE Apixaban (Apixaban 5 Mg Tablet) 5 mg PO BID [facility] Last Admin: 09/26/22 09:59 Dose: 5 mg Documented By: JANINE Artificial Tears (Artificial Tears 15 Ml Drops) 1 drop EYE-BOTH Q4H PRN PRN Reason: tearin Last Admin: 09/02/22 20:26 Dose: 1 drop Documented By: NARCISO Benzocaine (Throat Lozenge, Medicated Lozenge) 1 lozenge MUCOUS MEM Q2H PRN PRN Reason: Sore Throat Dextrose (Dextrose 50 % 25 Gm/50 Ml Syringe) 25 gm IVPUSH Q15M PRN; Protocol PRN Reason: per Hypoglycemia Standing Ord. Ferrous Sulfate (Ferrous Sulfate 324 Mg Tablet.) 324 mg PO BIDWM [facility] Last Admin: 09/26/22 09:59 Dose: 324 mg Documented By: JANINE Finasteride (Finasteride 5 Mg Tablet) 5 mg PO DAILY [facility] Last Admin: 09/26/22 09:59 Dose: 5 mg Documented By: JANINE Glucose (Glucose Gel 15 Gm Gel..Gram.) 15 gm PO Q15M PRN; Protocol PRN Reason: per Hypoglycemia Standing Ord. Guaifenesin (Guaifenesin 100 Mg/5 Ml Liquid) 5 ml PO Q6H PRN PRN Reason: Cough Insulin Glargine (Insulin Glargine,Hum.Rec.Anlog 100 Unit/Ml 10 Ml Vial) 5 unit SUBCUT BEDTIME [facility] Last Admin: 09/25/22 21:47 Dose: 5 unit Documented By: AUGUSTINA Insulin Glargine (Insulin Glargine,Hum.Rec.Anlog 100 Unit/Ml 10 Ml Vial) 25 unit SUBCUT DAILY@0730 [facility] Last Admin: 09/26/22 10:01 Dose: 25 unit Documented By: JANINE Insulin Human Lispro (Insulin Lispro 100 Unit/Ml 3 Ml Vial) 0 unit SUBCUT Q IDACHS [facility]; Protocol Last Admin: 09/26/22 11:45 Dose: 4 unit Documented By: JANINE Metformin HCl (Metformin Hcl 850 Mg Tablet) 850 mg PO BIDWM [facility] Last Admin: 09/26/22 09:59 Dose: 850 mg Documented By: JANINE Metoprolol Succinate (Metoprolol Succinate Er 100 Mg Tab.Er.24h) 100 mg PO DAILY [facility] Last Admin: 09/26/22 09:59 Dose: 100 mg Documented By: JANINE Oxycodone HCl (Oxycodone Hcl Immed Release 5 Mg Tablet) 5 mg PO Q4H PRN PRN Reason: Pain, Moderate (Pain Scale 4-6 Last Admin: 09/26/22 09:59 Dose: 5 mg Documented By: JANINE Sodium Hypochlorite (Sodium Hypochlorite 0.25% 473 Ml Solution) 1 appl TOPICAL BID [facility] Last Admin: 09/26/22 10:01 Dose: 1 appl Documented By: JANINE Tamsulosin HCl (Tamsulosin Hcl 0.4 Mg Capsule) 0.8 mg PO DAILY [facility] Last Admin: 09/26/22 09:59 Dose: 0.8 mg Documented By: JANINE Zinc Acetate/Diphenhydramine (Diphenhydramine Hcl 2 % Cream 28 Gm Tube) 1 appl TOPICAL TID PRN; Protocol PRN Reason: itching Last Admin: 09/25/22 09:17 Dose: 1 appl Documented By: DIPAK Labs 09/23/22 09:02 09/23/22 09:02 Labs: Laboratory Results - last 24 hr 09/25/22 09/25/22 09/26/22 16:15 21:09 07:21 POC Glucose 172 H 196 H 112 09/26/22 11:19 POC Glucose 236 H Assessment and Plan (1) Stage 4 decubitus ulcer: Status: Acute Plan 74yo M with DM2, HTN, HLD, chronic venous stasis dermatitis presented with mechanical fall, admitted for hypoxia due to PNA awaiting safe placement. Much clearer thought process today Sacral decubitus ulcer.? Unstageable, necrotic 10cm x10 cm with 4 cm depth frequent turn,air loss? bed ,continue wound care Improving s/p debridements 07/08, 07/17, 1/ s/p wound vac placement 07/22/22 - removed 07/25 after it became soiled continue wet to dry dressings , being followed by General surgery- d/w surgery - wound vac not helping and would avoid Atrial flutter/fib, rate stable LVEF >70% continue toprol xl and Eliquis Episode of SVT vs atrial tachycardia 07/26 HR improved with IV Lopressor, finish loading dose of amiodarone and started on amiodarone 200 mg by mouth daily on August 07, continue Toprol XL Acute blood loss anemia. Resolved s/p blood loss at site of decub ulcer patient received 2 unit of packed RBC continue ferrous sulfate b.i.d. H/H stable CBC check periodically Traumatic SAH CT brain 06/26 ? New small areas of extra-axial hemorrhage adjacent to the left posterior parietal lobe, bilateral occipital lobes and in the occipital horns of both lateral ventricles, repeat CT 06/28 unchanged seen by neuro - AC was held for two weeks no headache, no dizziness No other complications Acute hypoxic respiratory failure due to PNA. Resolved finished 10d of ABX back on room air Urinary retention failed voiding trial x2 continue tamsulosin and finasteride seen by urology, continue roberts upon discharge - outpatient urology follow up Hyponatremia resolved s/p urea cortisol, TSH wnl Mechanical fall difficulty ambulating; awaiting SNF placement, PT has been working with him I do not think he will walk again generalized weakness 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 but not clinically NPH per Neurology incidental 1.3cm pancreatic lesions may reflect adjacent pancreatic cysts outpt MRI/MRCP DM2? : fs acceptable continue Lantus, SSI adjusted . HTN Stable blood pressures, continue metoprolol losartan and hydralazine discontinued due to soft blood pressures HLD statin b/l eye dryness (clear tearing,no erythema or pain or vision change) added artifical tears drops rash bendaryl cream helping cough 2/, CXR no pna eliquis Full code ongoing? inpatient hospitalization for the following reasons: SNF placement and follow-up on stage IV decub ulcer Time Spent With Patient Time: Total time managing care of this patient today ____ minutes. Quality Stroke Does the patient have a stroke diagnosis?: No VTE Prior VTE?: No VTE Risk Level:: Medical - moderate - high VTE Device Contraindication: Treatment Not Indicated VTE Drug Contraindication: N/A - Med Ordered
[2022-09-26 16:00] VITALS: BP 138/70; PULSE 85; RESP 17; TEMP 36.9; O2SAT 97
[2022-09-26 17:04] LABS: Glucose, Whole Blood 162 mg/dL (60-115)
[2022-09-26 19:50] VITALS: BP 130/62; PULSE 83; RESP 17; TEMP 36.1; O2SAT 95
[2022-09-26 20:09] LABS: Glucose, Whole Blood 162 mg/dL (60-115)
[2022-09-26] MEDS: Insulin Glargine,Hum.rec.anlog 100 UNIT/ML 10 ML VIAL SUBCUT (20:15)
[2022-09-27 03:19] VITALS: BP 118/58; PULSE 72; RESP 18; TEMP 36.7; O2SAT 99
[2022-09-27 07:31] VITALS: BP 132/60; PULSE 77; RESP 18; TEMP 36.4; O2SAT 95
[2022-09-27 07:37] LABS: Glucose, Whole Blood 93 mg/dL (60-115)
[2022-09-27] MEDS: metFORMIN HCl 850 MG TABLET PO ×2 (09:55→17:17)
[2022-09-27] MEDS: Apixaban 5 MG TABLET PO ×2 (09:55→21:10)
[2022-09-27] MEDS: Metoprolol Succinate ER 100 MG TAB.ER.24H PO (09:55)
[2022-09-27] MEDS: Amiodarone HCL 200 MG TABLET PO (09:55)
[2022-09-27] MEDS: Tamsulosin HCL 0.4 MG CAPSULE 0.8 MG PO (09:56)
[2022-09-27] MEDS: Finasteride 5 MG TABLET PO (09:56)
[2022-09-27] MEDS: Insulin Glargine,Hum.rec.anlog 100 UNIT/ML 10 ML VIAL 25 UNIT SUBCUT (09:56)
[2022-09-27] MEDS: Ferrous Sulfate 324 MG TABLET.DR PO ×2 (09:56→17:17)
[2022-09-27] MEDS: diphenhydrAMINE HCl 2 % Cream 28 GM TUBE 1 APPL TOPICAL (10:01)
--- NOTE | 2022-09-27 10:23 | MHC.CLN ---
F/U PO INTAKE MOST MEALS 75-100%. DIET RX: DIABETIC 2200 KCALS-APPROPRIATE. SUPPLEMENT ENSURE MAX BID PROVIDES ADDITIONAL 300 KCALS, 60 G PROTEIN. ADDITIONAL PROTEIN TO PROMOTE WOUND HEALING. SKIN CONTINUES WITH STAGE IV TO COCCYX/SACRUM; REDNESS TO RIGHT HIP AND RIGHT HEEL. CONTINUE TO MONITOR PO INTAKE AND WOUND HEALING. RD TO CONTINUE TO FOLLOW WEEKLY.
--- NOTE | 2022-09-27 11:19 | P.PNIM_ITS ---
Subjective Subjective Date of Service: 09/27/22 Interval History: no new issues. Remains alert and cooperative Review of Systems denies chest pain Denies shortness of breath Denies nausea vomiting diarrhea denies fever chills Physical Exam Vital Signs: Vital Signs: Last Vital Signs Temp 97.6 F 09/27/22 07:31 Pulse 77 09/27/22 07:31 Resp 18 09/27/22 07:31 BP 132/60 09/27/22 07:31 Pulse Ox 95 09/27/22 07:31 O2 Del Method 09/27/22 07:31 O2 Flow Rate 2 09/04/22 12:48 BMI result Body Mass Index 26.6 Const: Other: Awake alert/clear oriented x3 Resp: Other: Clear to auscultation bilaterally Cardio: Other: No S4; positive S1-S2; no S3 murmurs rubs or gallops Skin: Other: coccyx ulcer itchy rash, upper back, flat, dry skin Extrem: Other: No edema bilaterally Objective Data Active Medications Acetaminophen (Acetaminophen 325 Mg Tablet) 650 mg PO Q6H PRN PRN Reason: Pain, Mild (Pain Scale 1-3) Last Admin: 09/26/22 20:14 Dose: 650 mg Documented By: MAR Amiodarone HCl (Amiodarone Hcl 200 Mg Tablet) 200 mg PO DAILY [facility] Last Admin: 09/27/22 09:55 Dose: 200 mg Documented By: KWAME Apixaban (Apixaban 5 Mg Tablet) 5 mg PO BID [facility] Last Admin: 09/27/22 09:55 Dose: 5 mg Documented By: KWAME Artificial Tears (Artificial Tears 15 Ml Drops) 1 drop EYE-BOTH Q4H PRN PRN Reason: tearin Last Admin: 09/02/22 20:26 Dose: 1 drop Documented By: NARCISO Benzocaine (Throat Lozenge, Medicated Lozenge) 1 lozenge MUCOUS MEM Q2H PRN PRN Reason: Sore Throat Dextrose (Dextrose 50 % 25 Gm/50 Ml Syringe) 25 gm IVPUSH Q15M PRN; Protocol PRN Reason: per Hypoglycemia Standing Ord. Ferrous Sulfate (Ferrous Sulfate 324 Mg Tablet.) 324 mg PO BIDWM [facility] Last Admin: 09/27/22 09:56 Dose: 324 mg Documented By: KWAME Finasteride (Finasteride 5 Mg Tablet) 5 mg PO DAILY [facility] Last Admin: 09/27/22 09:56 Dose: 5 mg Documented By: KWAME Glucose (Glucose Gel 15 Gm Gel..Gram.) 15 gm PO Q15M PRN; Protocol PRN Reason: per Hypoglycemia Standing Ord. Guaifenesin (Guaifenesin 100 Mg/5 Ml Liquid) 5 ml PO Q6H PRN PRN Reason: Cough Insulin Glargine (Insulin Glargine,Hum.Rec.Anlog 100 Unit/Ml 10 Ml Vial) 5 unit SUBCUT BEDTIME [facility] Last Admin: 09/26/22 20:15 Dose: 5 unit Documented By: MAR Insulin Glargine (Insulin Glargine,Hum.Rec.Anlog 100 Unit/Ml 10 Ml Vial) 25 unit SUBCUT DAILY@0730 [facility] Last Admin: 09/27/22 09:56 Dose: 25 unit Documented By: KWAME Insulin Human Lispro (Insulin Lispro 100 Unit/Ml 3 Ml Vial) 0 unit SUBCUT QIDACHS [facility]; Protocol Last Admin: 09/27/22 09:56 Dose: Not Given Documented By: KWAME Non-Admin Reason: No Insulin Coverage Metformin HCl (Metformin Hcl 850 Mg Tablet) 850 mg PO BIDWM [facility] Last Admin: 09/27/22 09:55 Dose: 850 mg Documented By: KWAME Metoprolol Succinate (Metoprolol Succinate Er 100 Mg Tab.Er.24h) 100 mg PO DAILY [facility] Last Admin: 09/27/22 09:55 Dose: 100 mg Documented By: KWAME Sodium Hypochlorite (Sodium Hypochlorite 0.25% 473 Ml Solution) 1 appl TOPICAL BID [facility] Last Admin: 09/27/22 10:02 Dose: 1 appl Documented By: KWAME Tamsulosin HCl (Tamsulosin Hcl 0.4 Mg Capsule) 0.8 mg PO DAILY [facility] Last Admin: 09/27/22 09:56 Dose: 0.8 mg Documented By: KWAME Zinc Acetate/Diphenhydramine (Diphenhydramine Hcl 2 % Cream 28 Gm Tube) 1 appl TOPICAL TID PRN; Protocol PRN Reason: itching Last Admin: 09/27/22 10:01 Dose: 1 appl Documented By: KWAME Labs 09/23/22 09:02 09/23/22 09:02 Labs: Laboratory Results - last 24 hr 09/26/22 09/26/22 09/26/22 11:19 17:00 20:06 POC Glucose 236 H 162 H 162 H 09/27/22 07:30 POC Glucose 93 Assessment and Plan (1) Stage 4 decubitus ulcer: Status: Acute Plan 74yo M with DM2, HTN, HLD, chronic venous stasis dermatitis presented with mechanical fall, admitted for hypoxia due to PNA awaiting safe placement. Much clearer thought process today Sacral decubitus ulcer.? Unstageable, necrotic 10cm x10 cm with 4 cm depth frequent turn,air loss? bed ,continue wound care Improving s/p debridements 07/08, 07/17, 08/05 s/p wound vac placement 07/22/22 - removed 07/25 after it became soiled continue wet to dry dressings , being followed by General surgery- d/w surgery - wound vac not helping and would avoid Atrial flutter/fib, rate stable LVEF >70% continue toprol xl and Eliquis Episode of SVT vs atrial tachycardia 07/26 HR improved with IV Lopressor, finish loading dose of amiodarone and started on amiodarone 200 mg by mouth daily on August 07, continue Toprol XL Acute blood loss anemia. Resolved s/p blood loss at site of decub ulcer patient received 2 unit of packed RBC continue ferrous sulfate b.i.d. H/H stable CBC check periodically Traumatic SAH CT brain 06/26 ? New small areas of extra-axial hemorrhage adjacent to the left posterior parietal lobe, bilateral occipital lobes and in the occipital horns of both lateral ventricles, repeat CT 06/28 unchanged seen by neuro - AC was held for two weeks no headache, no dizziness No other complications Acute hypoxic respiratory failure due to PNA. Resolved finished 10d of ABX back on room air Urinary retention failed voiding trial x2 continue tamsulosin and finasteride seen by urology, continue roberts upon discharge - outpatient urology follow up Hyponatremia resolved s/p urea cortisol, TSH wnl Mechanical fall difficulty ambulating; awaiting SNF placement, PT has been working with him I do not think he will walk again generalized weakness 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 but not clinically NPH per Neurology incidental 1.3cm pancreatic lesions may reflect adjacent pancreatic cysts outpt MRI/MRCP DM2? : fs acceptable continue Lantus, SSI adjusted . HTN Stable blood pressures, continue metoprolol losartan and hydralazine discontinued due to soft blood pressures HLD statin b/l eye dryness (clear tearing,no erythema or pain or vision change) added artifical tears drops rash bendaryl cream helping cough 2/4, CXR no pna eliquis Full code ongoing? inpatient hospitalization for the following reasons: SNF placement and follow-up on stage IV decub ulcer Time Spent With Patient Time: Total time managing care of this patient today ____ minutes. Quality Stroke Does the patient have a stroke diagnosis?: No VTE Prior VTE?: No VTE Risk Level:: Medical - moderate - high VTE Device Contraindication: Treatment Not Indicated VTE Drug Contraindication: N/A - Med Ordered
[2022-09-27 11:42] LABS: Glucose, Whole Blood 174 mg/dL (60-115)
[2022-09-27] MEDS: Insulin Lispro 100 UNIT/ML 3 ML VIAL SUBCUT ×2 (12:23→21:09)
[2022-09-27 15:54] VITALS: BP 122/59; PULSE 82; RESP 16; TEMP 36.8; O2SAT 97
[2022-09-27 16:39] LABS: Glucose, Whole Blood 148 mg/dL (60-115)
[2022-09-27 20:06] VITALS: BP 145/66; PULSE 84; RESP 18; TEMP 37.2; O2SAT 95
[2022-09-27 20:50] LABS: Glucose, Whole Blood 156 mg/dL (60-115)
[2022-09-27] MEDS: Insulin Glargine,Hum.rec.anlog 100 UNIT/ML 10 ML VIAL SUBCUT (21:10)
[2022-09-27] MEDS: Acetaminophen 325 MG TABLET 650 MG PO (21:21)
[2022-09-28 04:00] VITALS: BP 126/61; PULSE 71; RESP 16; TEMP 36.2; O2SAT 97
[2022-09-28 07:58] VITALS: BP 139/67; PULSE 77; RESP 18; TEMP 36.4; O2SAT 99
[2022-09-28 08:06] LABS: Glucose, Whole Blood 84 mg/dL (60-115)
[2022-09-28] MEDS: metFORMIN HCl 850 MG TABLET PO ×2 (09:23→17:08)
[2022-09-28] MEDS: Ferrous Sulfate 324 MG TABLET.DR PO ×2 (09:24→17:08)
[2022-09-28] MEDS: Apixaban 5 MG TABLET PO ×2 (09:24→21:01)
[2022-09-28] MEDS: Finasteride 5 MG TABLET PO (09:24)
[2022-09-28] MEDS: Insulin Glargine,Hum.rec.anlog 100 UNIT/ML 10 ML VIAL 25 UNIT SUBCUT (09:24)
[2022-09-28] MEDS: Tamsulosin HCL 0.4 MG CAPSULE 0.8 MG PO (09:24)
[2022-09-28] MEDS: Amiodarone HCL 200 MG TABLET PO (09:24)
[2022-09-28] MEDS: diphenhydrAMINE HCl 2 % Cream 28 GM TUBE 1 APPL TOPICAL (09:32)
[2022-09-28] MEDS: Metoprolol Succinate ER 100 MG TAB.ER.24H PO (09:36)
[2022-09-28 11:24] LABS: Glucose, Whole Blood 178 mg/dL (60-115)
[2022-09-28] MEDS: Insulin Lispro 100 UNIT/ML 3 ML VIAL SUBCUT ×2 (12:38→21:00)
--- NOTE | 2022-09-28 14:03 | HO.PM.IMPN ---
Subjective Subjective Date of Service: 09/28/22 Interval History: remains alert oriented no complaints of pain Review of Systems denies chest pain Denies shortness of breath Denies nausea vomiting diarrhea denies fever chills Physical Exam Vital Signs: Vital Signs: Last Vital Signs Temp 97.5 F 09/28/22 07:58 Pulse 77 09/28/22 07:58 Resp 18 09/28/22 07:58 BP 139/67 09/28/22 07:58 Pulse Ox 99 09/28/22 07:58 O2 Del Method 09/28/22 07:58 O2 Flow Rate 2 09/04/22 12:48 BMI result Body Mass Index 26.6 Const: Other: Awake alert/clear oriented x3 Resp: Other: Clear to auscultation bilaterally Cardio: Other: No S4; positive S1-S2; no S3 murmurs rubs or gallops Skin: Other: coccyx ulcer itchy rash, upper back, flat, dry skin General skin exam: no rashes or lesions noted and ecchymosis Extrem: Other: No edema bilaterally Objective Data Active Medications Acetaminophen (Acetaminophen 325 Mg Tablet) 650 mg PO Q6H PRN PRN Reason: Pain, Mild (Pain Scale 1-3) Last Admin: 09/27/22 21:21 Dose: 650 mg Documented By: NOHEMI Amiodarone HCl (Amiodarone Hcl 200 Mg Tablet) 200 mg PO DAILY [facility] Last Admin: 09/28/22 09:24 Dose: 200 mg Documented By: DIPAK Apixaban (Apixaban 5 Mg Tablet) 5 mg PO BID [facility] Last Admin: 09/28/22 09:24 Dose: 5 mg Documented By: DIPAK Artificial Tears (Artificial Tears 15 Ml Drops) 1 drop EYE-BOTH Q4H PRN PRN Reason: tearin Last Admin: 09/02/22 20:26 Dose: 1 drop Documented By: NARCISO Benzocaine (Throat Lozenge, Medicated Lozenge) 1 lozenge MUCOUS MEM Q2H PRN PRN Reason: Sore Throat Dextrose (Dextrose 50 % 25 Gm/50 Ml Syringe) 25 gm IVPUSH Q15M PRN; Protocol PRN Reason: per Hypoglycemia Standing Ord. Ferrous Sulfate (Ferrous Sulfate 324 Mg Tablet.) 324 mg PO BIDWM [facility] Last Admin: 09/28/22 09:24 Dose: 324 mg Documented By: DIPAK Finasteride (Finasteride 5 Mg Tablet) 5 mg PO DAILY [facility] Last Admin: 09/28/22 09:24 Dose: 5 mg Documented By: DIPAK Glucose (Glucose Gel 15 Gm Gel..Gram.) 15 gm PO Q15M PRN; Protocol PRN Reason: per Hypoglycemia Standing Ord. Guaifenesin (Guaifenesin 100 Mg/5 Ml Liquid) 5 ml PO Q6H PRN PRN Reason: Cough Insulin Glargine (Insulin Glargine,Hum.Rec.Anlog 100 Unit/Ml 10 Ml Vial) 5 unit SUBCUT BEDTIME [facility] Last Admin: 09/27/22 21:10 Dose: 5 unit Documented By: NOHEMI Insulin Glargine (Insulin Glargine,Hum.Rec.Anlog 100 Unit/Ml 10 Ml Vial) 25 unit SUBCUT DAILY@0730 [facility] Last Admin: 09/28/22 09:24 Dose: 25 unit Documented By: DIPAK Insulin Human Lispro (Insulin Lispro 100 Unit/Ml 3 Ml Vial) 0 unit SUBCUT QIDACHS [facility]; Protocol Last Admin: 09/28/22 12:38 Dose: 2 unit Documented By: DIPAK Metformin HCl (Metformin Hcl 850 Mg Tablet) 850 mg PO BIDWM [facility] Last Admin: 09/28/22 09:23 Dose: 850 mg Documented By: DIPAK Metoprolol Succinate (Metoprolol Succinate Er 100 Mg Tab.Er.24h) 100 mg PO DAILY [facility] Last Admin: 09/28/22 09:36 Dose: 100 mg Documented By: DIPAK Sodium Hypochlorite (Sodium Hypochlorite 0.25% 473 Ml Solution) 1 appl TOPICAL BID [facility] Last Admin: 09/28/22 09:35 Dose: 1 appl Documented By: DIPAK Tamsulosin HCl (Tamsulosin Hcl 0.4 Mg Capsule) 0.8 mg PO DAILY [facility] Last Admin: 09/28/22 09:24 Dose: 0.8 mg Documented By: DIPAK Zinc Acetate/Diphenhydramine (Diphenhydramine Hcl 2 % Cream 28 Gm Tube) 1 appl TOPICAL TID PRN; Protocol PRN Reason: itching Last Admin: 09/28/22 09:32 Dose: 1 appl Documented By: DIPAK Labs 09/23/22 09:02 09/23/22 09:02 Labs: Laboratory Results - last 24 hr 09/27/22 09/27/22 09/28/22 16:30 20:39 08:01 POC Glucose 148 H 156 H 84 09/28/22 11:16 POC Glucose 178 H Assessment and Plan (1) Stage 4 decubitus ulcer: Status: Acute Plan 74yo M with DM2, HTN, HLD, chronic venous stasis dermatitis presented with mechanical fall, admitted for hypoxia due to PNA awaiting safe placement. Much clearer thought process today Sacral decubitus ulcer.? Unstageable, necrotic 10cm x10 cm with 4 cm depth frequent turn,air loss? bed ,continue wound care Improving s/p debridements 07/08, 07/17, 1/2 s/p wound vac placement 07/22/22 - removed 07/25 after it became soiled continue wet to dry dressings , being followed by General surgery- d/w surgery - wound vac not helping and would avoid Atrial flutter/fib, rate stable LVEF >70% continue toprol xl and Eliquis Episode of SVT vs atrial tachycardia 07/26 HR improved with IV Lopressor, finish loading dose of amiodarone and started on amiodarone 200 mg by mouth daily on August 07, continue Toprol XL Acute blood loss anemia. Resolved s/p blood loss at site of decub ulcer patient received 2 unit of packed RBC continue ferrous sulfate b.i.d. H/H stable CBC check periodically Traumatic SAH CT brain 06/26 ? New small areas of extra-axial hemorrhage adjacent to the left posterior parietal lobe, bilateral occipital lobes and in the occipital horns of both lateral ventricles, repeat CT 06/28 unchanged seen by neuro - AC was held for two weeks no headache, no dizziness No other complications Acute hypoxic respiratory failure due to PNA. Resolved finished 10d of ABX back on room air Urinary retention failed voiding trial x2 continue tamsulosin and finasteride seen by urology, continue roberts upon discharge - outpatient urology follow up Hyponatremia resolved s/p urea cortisol, TSH wnl Mechanical fall difficulty ambulating; awaiting SNF placement, PT has been working with him I do not think he will walk again generalized weakness 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 but not clinically NPH per Neurology incidental 1.3cm pancreatic lesions may reflect adjacent pancreatic cysts outpt MRI/MRCP DM2? : fs acceptable continue Lantus, SSI adjusted . HTN Stable blood pressures, continue metoprolol losartan and hydralazine discontinued due to soft blood pressures HLD statin b/l eye dryness (clear tearing,no erythema or pain or vision change) added artifical tears drops rash bendaryl cream helping cough 2/, CXR no pna eliquis Full code ongoing? inpatient hospitalization for the following reasons: SNF placement and follow-up on stage IV decub ulcer Time Spent With Patient Time: Total time managing care of this patient today ____ minutes. Quality Stroke Does the patient have a stroke diagnosis?: No VTE Prior VTE?: No VTE Risk Level:: Medical - moderate - high VTE Device Contraindication: Treatment Not Indicated VTE Drug Contraindication: N/A - Med Ordered
[2022-09-28 15:22] VITALS: BP 114/56; PULSE 84; RESP 18; TEMP 36.9; O2SAT 99
[2022-09-28 17:13] LABS: Glucose, Whole Blood 147 mg/dL (60-115)
[2022-09-28 20:26] LABS: Glucose, Whole Blood 171 mg/dL (60-115)
[2022-09-28] MEDS: Insulin Glargine,Hum.rec.anlog 100 UNIT/ML 10 ML VIAL SUBCUT (21:01)
[2022-09-29] MEDS: Acetaminophen 325 MG TABLET 650 MG PO ×2 (01:36→13:32)
[2022-09-29 04:00] VITALS: BP 133/63; PULSE 73; RESP 18; TEMP 36.2; O2SAT 96
[2022-09-29 07:09] VITALS: BP 137/60; PULSE 73; RESP 16; TEMP 36.3; O2SAT 97
[2022-09-29] MEDS: Insulin Glargine,Hum.rec.anlog 100 UNIT/ML 10 ML VIAL 25 UNIT SUBCUT (07:40)
[2022-09-29] MEDS: Finasteride 5 MG TABLET PO (07:41)
[2022-09-29] MEDS: Tamsulosin HCL 0.4 MG CAPSULE 0.8 MG PO (07:41)
[2022-09-29] MEDS: Metoprolol Succinate ER 100 MG TAB.ER.24H PO (07:41)
[2022-09-29] MEDS: metFORMIN HCl 850 MG TABLET PO ×2 (07:41→17:19)
[2022-09-29] MEDS: Apixaban 5 MG TABLET PO ×2 (07:41→21:24)
[2022-09-29] MEDS: Ferrous Sulfate 324 MG TABLET.DR PO ×2 (07:41→17:19)
[2022-09-29] MEDS: Amiodarone HCL 200 MG TABLET PO (07:41)
[2022-09-29 07:51] LABS: Glucose, Whole Blood 104 mg/dL (60-115)
[2022-09-29 11:30] LABS: Glucose, Whole Blood 167 mg/dL (60-115)
[2022-09-29] MEDS: Insulin Lispro 100 UNIT/ML 3 ML VIAL SUBCUT ×3 (12:03→21:25)
--- NOTE | 2022-09-29 12:07 | HO.PM.IMPN ---
Subjective Subjective Date of Service: 09/29/22 Interval History: no acute issues overnight. Remains awake alert and cooperative. Awaiting placement Review of Systems denies chest pain Denies shortness of breath Denies nausea vomiting diarrhea denies fever chills Physical Exam Vital Signs: Vital Signs: Last Vital Signs Temp 97.4 F 09/29/22 07:09 Pulse 73 09/29/22 07:09 Resp 16 09/29/22 07:09 BP 137/60 09/29/22 07:09 Pulse Ox 97 09/29/22 07:09 O2 Del Method 09/29/22 07:09 O2 Flow Rate 2 09/04/22 12:48 BMI result Body Mass Index 26.6 Const: Other: Awake alert/clear oriented x3 Resp: Other: Clear to auscultation bilaterally Cardio: Other: No S4; positive S1-S2; no S3 murmurs rubs or gallops Skin: Other: coccyx ulcer itchy rash, upper back, flat, dry skin General skin exam: no rashes or lesions noted and ecchymosis Extrem: Other: No edema bilaterally Objective Data Active Medications Acetaminophen (Acetaminophen 325 Mg Tablet) 650 mg PO Q6H PRN PRN Reason: Pain, Mild (Pain Scale 1-3) Last Admin: 09/29/22 01:36 Dose: 650 mg Documented By: NOHEMI Amiodarone HCl (Amiodarone Hcl 200 Mg Tablet) 200 mg PO DAILY [facility] Last Admin: 09/29/22 07:41 Dose: 200 mg Documented By: THEODORA Apixaban (Apixaban 5 Mg Tablet) 5 mg PO BID [facility] Last Admin: 09/29/22 07:41 Dose: 5 mg Documented By: THEODORA Artificial Tears (Artificial Tears 15 Ml Drops) 1 drop EYE-BOTH Q4H PRN PRN Reason: tearin Last Admin: 09/02/22 20:26 Dose: 1 drop Documented By: NARCISO Benzocaine (Throat Lozenge, Medicated Lozenge) 1 lozenge MUCOUS MEM Q2H PRN PRN Reason: Sore Throat Dextrose (Dextrose 50 % 25 Gm/50 Ml Syringe) 25 gm IVPUSH Q15M PRN; Protocol PRN Reason: per Hypoglycemia Standing Ord. Ferrous Sulfate (Ferrous Sulfate 324 Mg Tablet.) 324 mg PO BIDWM [facility] Last Admin: 09/29/22 07:41 Dose: 324 mg Documented By: THEODORA Finasteride (Finasteride 5 Mg Tablet) 5 mg PO DAILY [facility] Last Admin: 09/29/22 07:41 Dose: 5 mg Documented By: THEODORA Glucose (Glucose Gel 15 Gm Gel..Gram.) 15 gm PO Q15M PRN; Protocol PRN Reason: per Hypoglycemia Standing Ord. Guaifenesin (Guaifenesin 100 Mg/5 Ml Liquid) 5 ml PO Q6H PRN PRN Reason: Cough Insulin Glargine (Insulin Glargine,Hum.Rec.Anlog 100 Unit/Ml 10 Ml Vial) 5 unit SUBCUT BEDTIME [facility] Last Admin: 09/28/22 21:01 Dose: 5 unit Documented By: NOHEMI Insulin Glargine (Insulin Glargine,Hum.Rec.Anlog 100 Unit/Ml 10 Ml Vial) 25 unit SUBCUT DAILY@0730 [facility] Last Admin: 09/29/22 07:40 Dose: 25 unit Documented By: THEODORA Insulin Human Lispro (Insulin Lispro 100 Unit/Ml 3 Ml Vial) 0 unit SUBCUT QIDACHS [facility]; Protocol Last Admin: 09/29/22 12:03 Dose: 2 unit Documented By: THEODORA Metformin HCl (Metformin Hcl 850 Mg Tablet) 850 mg PO BIDWM [facility] Last Admin: 09/29/22 07:41 Dose: 850 mg Documented By: THEODORA Metoprolol Succinate (Metoprolol Succinate Er 100 Mg Tab.Er.24h) 100 mg PO DAILY [facility] Last Admin: 09/29/22 07:41 Dose: 100 mg Documented By: THEODORA Sodium Hypochlorite (Sodium Hypochlorite 0.25% 473 Ml Solution) 1 appl TOPICAL BID [facility] Last Admin: 09/29/22 10:05 Dose: 1 appl Documented By: THEODORA Tamsulosin HCl (Tamsulosin Hcl 0.4 Mg Capsule) 0.8 mg PO DAILY [facility] Last Admin: 09/29/22 07:41 Dose: 0.8 mg Documented By: THEODORA Zinc Acetate/Diphenhydramine (Diphenhydramine Hcl 2 % Cream 28 Gm Tube) 1 appl TOPICAL TID PRN; Protocol PRN Reason: itching Last Admin: 02/25/23 09:32 Dose: 1 appl Documented By: DIPAK Labs 09/23/22 09:02 09/23/22 09:02 Labs: Laboratory Results - last 24 hr 09/28/22 09/28/22 09/29/22 16:57 20:21 07:16 POC Glucose 147 H 171 H 104 09/29/22 11:26 POC Glucose 167 H Assessment and Plan (1) Stage 4 decubitus ulcer: Status: Acute Plan 74yo M with DM2, HTN, HLD, chronic venous stasis dermatitis presented with mechanical fall, admitted for hypoxia due to PNA awaiting safe placement. Much clearer thought process today Sacral decubitus ulcer.? Unstageable, necrotic 10cm x10 cm with 4 cm depth frequent turn,air loss? bed ,continue wound care Improving s/p debridements 07/08, 07/17, 12 s/p wound vac placement 07/22/22 - removed 07/25 after it became soiled continue wet to dry dressings , being followed by General surgery- d/w surgery - wound vac not helping and would avoid Atrial flutter/fib, rate stable LVEF >70% continue toprol xl and Eliquis Episode of SVT vs atrial tachycardia 07/26 HR improved with IV Lopressor, finish loading dose of amiodarone and started on amiodarone 200 mg by mouth daily on August 07, continue Toprol XL Acute blood loss anemia. Resolved s/p blood loss at site of decub ulcer patient received 2 unit of packed RBC continue ferrous sulfate b.i.d. H/H stable CBC check periodically Traumatic SAH CT brain 06/26 ? New small areas of extra-axial hemorrhage adjacent to the left posterior parietal lobe, bilateral occipital lobes and in the occipital horns of both lateral ventricles, repeat CT 06/28 unchanged seen by neuro - AC was held for two weeks no headache, no dizziness No other complications Acute hypoxic respiratory failure due to PNA. Resolved finished 10d of ABX back on room air Urinary retention failed voiding trial x2 continue tamsulosin and finasteride seen by urology, continue roberts upon discharge - outpatient urology follow up Hyponatremia resolved s/p urea cortisol, TSH wnl Mechanical fall difficulty ambulating; awaiting SNF placement, PT has been working with him I do not think he will walk again generalized weakness 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 but not clinically NPH per Neurology incidental 1.3cm pancreatic lesions may reflect adjacent pancreatic cysts outpt MRI/MRCP DM2? : fs acceptable continue Lantus, SSI adjusted . HTN Stable blood pressures, continue metoprolol losartan and hydralazine discontinued due to soft blood pressures HLD statin b/l eye dryness (clear tearing,no erythema or pain or vision change) added artifical tears drops rash bendaryl cream helping cough 2/4, CXR no pna eliquis Full code patient remains hemodynamically stable awaiting placement Time Spent With Patient Time: Total time managing care of this patient today ____ minutes. Quality Stroke Does the patient have a stroke diagnosis?: No VTE Prior VTE?: No VTE Risk Level:: Medical - moderate - high VTE Device Contraindication: Treatment Not Indicated VTE Drug Contraindication: N/A - Med Ordered
[2022-09-29 15:44] VITALS: BP 109/50; PULSE 76; RESP 18; TEMP 37.1; O2SAT 98
[2022-09-29 17:09] LABS: Glucose, Whole Blood 237 mg/dL (60-115)
[2022-09-29 19:35] VITALS: BP 142/66; PULSE 79; RESP 18; TEMP 36.7; O2SAT 96
[2022-09-29 20:45] LABS: Glucose, Whole Blood 226 mg/dL (60-115)
[2022-09-29] MEDS: Insulin Glargine,Hum.rec.anlog 100 UNIT/ML 10 ML VIAL SUBCUT (21:25)
[2022-09-30 04:00] VITALS: BP 139/64; PULSE 79; RESP 16; TEMP 36.8; O2SAT 96
[2022-09-30 07:16] VITALS: BP 123/61; PULSE 77; RESP 16; TEMP 36.9; O2SAT 97
[2022-09-30 07:38] LABS: Glucose, Whole Blood 103 mg/dL (60-115)
[2022-09-30] MEDS: Insulin Glargine,Hum.rec.anlog 100 UNIT/ML 10 ML VIAL 25 UNIT SUBCUT (08:31)
[2022-09-30] MEDS: metFORMIN HCl 850 MG TABLET PO ×2 (08:31→17:09)
[2022-09-30] MEDS: Tamsulosin HCL 0.4 MG CAPSULE 0.8 MG PO (08:31)
[2022-09-30] MEDS: Metoprolol Succinate ER 100 MG TAB.ER.24H PO (08:31)
[2022-09-30] MEDS: Ferrous Sulfate 324 MG TABLET.DR PO ×2 (08:32→17:09)
[2022-09-30] MEDS: Amiodarone HCL 200 MG TABLET PO (08:32)
[2022-09-30] MEDS: Finasteride 5 MG TABLET PO (08:32)
[2022-09-30] MEDS: Apixaban 5 MG TABLET PO ×2 (08:32→21:09)
--- NOTE | 2022-09-30 10:47 | MHC.CM.PN ---
PT AWAITING LTC PLACEMENT [facility] [place] WORKING WITH PTS HCP TO OBTAIN [employer]AGE PT CURRENTLY HAS NO BED OFFERS REFERRAL UPDATED AND EXPANDED
[2022-09-30 11:16] LABS: Glucose, Whole Blood 173 mg/dL (60-115)
[2022-09-30] MEDS: Insulin Lispro 100 UNIT/ML 3 ML VIAL SUBCUT ×3 (11:35→21:42)
--- NOTE | 2022-09-30 14:06 | HO.PM.IMPN ---
Subjective Subjective Date of Service: 09/30/22 Interval History: no new issues awaiting placement Review of Systems Review of Systems: Yes all other systems are reviewed and are negative Physical Exam Vital Signs: Vital Signs: Last Vital Signs Temp 98.4 F 09/30/22 07:16 Pulse 77 09/30/22 07:16 Resp 16 09/30/22 07:16 BP 123/61 09/30/22 07:16 Pulse Ox 97 09/30/22 07:16 O2 Del Method 09/30/22 07:16 O2 Flow Rate 2 09/04/22 12:48 BMI result Body Mass Index 26.6 Gen: in no acute distress HEENT: sclera anicteric, moist mucus membranes Neck: supple Lungs: clear to auscultation bilaterally Heart: regular rate and rhythm, no murmurs Abd: soft, non-tender, non-distended Ext: no edema Skin: sacral ulcer as below Neuro: alert and oriented x3, no focal findings Psych: appropriate affect Const: Other: Objective Data Active Medications Acetaminophen (Acetaminophen 325 Mg Tablet) 650 mg PO Q6H PRN PRN Reason: Pain, Mild (Pain Scale 1-3) Last Admin: 09/29/22 13:32 Dose: 650 mg Documented By: DIPAK Amiodarone HCl (Amiodarone Hcl 200 Mg Tablet) 200 mg PO DAILY [facility] Last Admin: 09/30/22 08:32 Dose: 200 mg Documented By: OSMEL Apixaban (Apixaban 5 Mg Tablet) 5 mg PO BID [facility] Last Admin: 09/30/22 08:32 Dose: 5 mg Documented By: OSMEL Artificial Tears (Artificial Tears 15 Ml Drops) 1 drop EYE-BOTH Q4H PRN PRN Reason: tearin Last Admin: 09/02/22 20:26 Dose: 1 drop Documented By: NARCISO Benzocaine (Throat Lozenge, Medicated Lozenge) 1 lozenge MUCOUS MEM Q2H PRN PRN Reason: Sore Throat Dextrose (Dextrose 50 % 25 Gm/50 Ml Syringe) 25 gm IVPUSH Q15M PRN; Protocol PRN Reason: per Hypoglycemia Standing Ord. Ferrous Sulfate (Ferrous Sulfate 324 Mg Tablet.) 324 mg PO BIDWM [facility] Last Admin: 09/30/22 08:32 Dose: 324 mg Documented By: OSMEL Finasteride (Finasteride 5 Mg Tablet) 5 mg PO DAILY [facility] Last Admin: 09/30/22 08:32 Dose: 5 mg Documented By: OSMEL Glucose (Glucose Gel 15 Gm Gel..Gram.) 15 gm PO Q15M PRN; Protocol PRN Reason: per Hypoglycemia Standing Ord. Guaifenesin (Guaifenesin 100 Mg/5 Ml Liquid) 5 ml PO Q6H PRN PRN Reason: Cough Insulin Glargine (Insulin Glargine,Hum.Rec.Anlog 100 Unit/Ml 10 Ml Vial) 5 unit SUBCUT BEDTIME [facility] Last Admin: 09/29/22 21:25 Dose: 5 unit Documented By: SU Insulin Glargine (Insulin Glargine,Hum.Rec.Anlog 100 Unit/Ml 10 Ml Vial) 25 unit SUBCUT DAILY@0730 [facility] Last Admin: 09/30/22 08:31 Dose: 25 unit Documented By: OSMEL Insulin Human Lispro (Insulin Lispro 100 Unit/Ml 3 Ml Vial) 0 unit SUBCUT QIDACHS [facility]; Protocol Last Admin: 09/30/22 11:35 Dose: 2 unit Documented By: BRENDA Metformin HCl (Metformin Hcl 850 Mg Tablet) 850 mg PO BIDWM [facility] Last Admin: 09/30/22 08:31 Dose: 850 mg Documented By: OSMEL Metoprolol Succinate (Metoprolol Succinate Er 100 Mg Tab.Er.24h) 100 mg PO DAILY [facility] Last Admin: 09/30/22 08:31 Dose: 100 mg Documented By: OSMEL Sodium Hypochlorite (Sodium Hypochlorite 0.25% 473 Ml Solution) 1 appl TOPICAL BID [facility] Last Admin: 09/30/22 08:38 Dose: 1 appl Documented By: OSMEL Tamsulosin HCl (Tamsulosin Hcl 0.4 Mg Capsule) 0.8 mg PO DAILY [facility] Last Admin: 09/30/22 08:31 Dose: 0.8 mg Documented By: OSMEL Zinc Acetate/Diphenhydramine (Diphenhydramine Hcl 2 % Cream 28 Gm Tube) 1 appl TOPICAL TID PRN; Protocol PRN Reason: itching Last Admin: 09/28/22 09:32 Dose: 1 appl Documented By: DIPAK eSthi 09/23/22 09:02 09/23/22 09:02 Labs: Laboratory Results - last 24 hr 09/29/22 09/29/22 09/30/22 16:56 20:37 07:21 POC Glucose 237 H 226 H 103 09/30/22 11:13 POC Glucose 173 H Assessment and Plan (1) Stage 4 decubitus ulcer: Status: Acute Plan hospital d#108 74yo M with DM2, HTN, HLD, chronic venous stasis dermatitis presented with mechanical fall, admitted for hypoxia due to PNA and biw awaiting safe placement # sacral decubitus ulcer - unstageable, necrotic 10cm x10 cm with 4 cm depth - frequent turning, air loss bed, continue wound care - s/p debridements 07/08, 07/17, 08/05 - s/p wound VAC placement 07/22 + removed 07/25 after it became soiled- no further role for VAC per Surgery - continue wet to dry dressings, periodic Surgery input # atrial flutter/fib - LVEF >70% - continue Toprol XL for rate control - continue AC with Eliquis # episode of SVT vs atrial tachycardia 07/26 - HR improved with IV Lopressor, finished loading dose of amiodarone and started on amiodarone 200 mg by mouth daily on 08/07, continue Toprol XL # acute blood loss anemia - resolved, was attributed to blood loss at site of decub ulcer, patient received 2 unit of packed RBC - continue ferrous sulfate b.i.d. - H/H stable, periodic check # traumatic SAH - CT brain 06/26: New small areas of extra-axial hemorrhage adjacent to the left posterior parietal lobe, bilateral occipital lobes and in the occipital horns of both lateral ventricles, repeat CT 06/28 unchanged - seen by Neuro; AC was held for two weeks - no headache, no dizziness; no other complications # Acute hypoxic respiratory failure due to PNA - resolved; finished 10d of ABX; back on room air # Urinary retention - failed voiding trial x2; continue tamsulosin and finasteride; seen by urology, continue Lemus upon discharge; outpatient urology follow up # hyponatremia - resolved; s/p urea; cortisol, TSH WNL # mechanical fall - difficulty ambulating; awaiting SNF placement, PT has been working with him # generalized weakness - 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 but not clinically NPH per Neurology # incidental 1.3cm pancreatic lesions - may reflect adjacent pancreatic cysts, outpt MRI/MRCP # DM2 - glycemic control acceptable; continue basal-bolus insulin + MTF # HTN - stable blood pressures, continue metoprolol; losartan and hydralazine discontinued due to soft blood pressures # HLD - statin # bilateral eye dryness - clear tearing,no erythema or pain or vision change - added artificial tears drops # rash - Bendaryl cream helping # VTE ppx: Eliquis # dispo: awaiting placement In my clinical judgment, the patient requires continued inpatient hospitalization for the following reasons: safe placement Time Spent With Patient Time: Total time managing care of this patient today _25___ minutes. Quality Stroke Does the patient have a stroke diagnosis?: No VTE Prior VTE?: No VTE Risk Level:: Medical - moderate - high VTE Device Contraindication: Treatment Not Indicated VTE Drug Contraindication: N/A - Med Ordered
[2022-09-30 15:48] VITALS: BP 132/62; PULSE 85; RESP 15; TEMP 36.3; O2SAT 95
[2022-09-30 16:53] LABS: Glucose, Whole Blood 190 mg/dL (60-115)
[2022-09-30 19:43] VITALS: BP 130/65; PULSE 70; RESP 17; TEMP 36.7; O2SAT 97
[2022-09-30] MEDS: Acetaminophen 325 MG TABLET 650 MG PO (21:09)
[2022-09-30 21:38] LABS: Glucose, Whole Blood 189 mg/dL (60-115)
[2022-09-30] MEDS: Insulin Glargine,Hum.rec.anlog 100 UNIT/ML 10 ML VIAL SUBCUT (21:43)
[2022-10-01 03:44] VITALS: BP 137/65; PULSE 75; RESP 18; TEMP 36; O2SAT 96
[2022-10-01 07:20] VITALS: BP 140/66; PULSE 78; RESP 16; TEMP 36.3; O2SAT 93
[2022-10-01 07:51] LABS: Glucose, Whole Blood 103 mg/dL (60-115)
[2022-10-01 08:48] LABS: Creatinine Clr Calc Pharmacy 133.1; Estimated Glomerular Filt Rate > 60
[2022-10-01] MEDS: Ferrous Sulfate 324 MG TABLET.DR PO ×2 (08:54→16:45)
[2022-10-01] MEDS: Tamsulosin HCL 0.4 MG CAPSULE 0.8 MG PO (08:54)
[2022-10-01] MEDS: metFORMIN HCl 850 MG TABLET PO ×2 (08:54→16:45)
[2022-10-01] MEDS: Apixaban 5 MG TABLET PO ×2 (08:54→21:27)
[2022-10-01] MEDS: Finasteride 5 MG TABLET PO (08:54)
[2022-10-01] MEDS: Amiodarone HCL 200 MG TABLET PO (08:54)
[2022-10-01] MEDS: Metoprolol Succinate ER 100 MG TAB.ER.24H PO (08:54)
[2022-10-01] MEDS: Insulin Glargine,Hum.rec.anlog 100 UNIT/ML 10 ML VIAL 25 UNIT SUBCUT (09:01)
[2022-10-01 11:25] LABS: Glucose, Whole Blood 219 mg/dL (60-115)
--- NOTE | 2022-10-01 11:29 | P.PNIM_ITS ---
Subjective Subjective Date of Service: 10/01/22 Interval History: after much great difficulty and assistance from PT, pt was able to sit on edge of bed denies any new issues Review of Systems Review of Systems: Yes all other systems are reviewed and are negative Physical Exam Vital Signs: Vital Signs: Last Vital Signs Temp 97.4 F 10/01/22 07:20 Pulse 78 10/01/22 07:20 Resp 16 10/01/22 07:20 BP 140/66 H 10/01/22 07:20 Pulse Ox 93 10/01/22 07:20 O2 Del Method 10/01/22 07:20 O2 Flow Rate 2 09/04/22 12:48 BMI result Body Mass Index 26.6 Const: Other: Gen: in no acute distress HEENT: sclera anicteric, moist mucus membranes Neck: supple Lungs: clear to auscultation bilaterally Heart: regular rate and rhythm, no murmurs Abd: soft, non-tender, non-distended Ext: no edema Skin: sacral ulcer Neuro: alert and oriented x3, no focal findings Psych: appropriate affect Objective Data Active Medications Acetaminophen (Acetaminophen 325 Mg Tablet) 650 mg PO Q6H PRN PRN Reason: Pain, Mild (Pain Scale 1-3) Last Admin: 09/30/22 21:09 Dose: 650 mg Documented By: SU Amiodarone HCl (Amiodarone Hcl 200 Mg Tablet) 200 mg PO DAILY [facility] Last Admin: 10/01/22 08:54 Dose: 200 mg Documented By: OSMEL Apixaban (Apixaban 5 Mg Tablet) 5 mg PO BID [facility] Last Admin: 10/01/22 08:54 Dose: 5 mg Documented By: OSMEL Artificial Tears (Artificial Tears 15 Ml Drops) 1 drop EYE-BOTH Q4H PRN PRN Reason: tearin Last Admin: 09/02/22 20:26 Dose: 1 drop Documented By: NARCISO Benzocaine (Throat Lozenge, Medicated Lozenge) 1 lozenge MUCOUS MEM Q2H PRN PRN Reason: Sore Throat Dextrose (Dextrose 50 % 25 Gm/50 Ml Syringe) 25 gm IVPUSH Q15M PRN; Protocol PRN Reason: per Hypoglycemia Standing Ord. Ferrous Sulfate (Ferrous Sulfate 324 Mg Tablet.) 324 mg PO BIDWM [facility] Last Admin: 10/01/22 08:54 Dose: 324 mg Documented By: OSMEL Finasteride (Finasteride 5 Mg Tablet) 5 mg PO DAILY [facility] Last Admin: 10/01/22 08:54 Dose: 5 mg Documented By: OSMEL Glucose (Glucose Gel 15 Gm Gel..Gram.) 15 gm PO Q15M PRN; Protocol PRN Reason: per Hypoglycemia Standing Ord. Guaifenesin (Guaifenesin 100 Mg/5 Ml Liquid) 5 ml PO Q6H PRN PRN Reason: Cough Insulin Glargine (Insulin Glargine,Hum.Rec.Anlog 100 Unit/Ml 10 Ml Vial) 5 unit SUBCUT BEDTIME [facility] Last Admin: 09/30/22 21:43 Dose: 5 unit Documented By: SU Insulin Glargine (Insulin Glargine,Hum.Rec.Anlog 100 Unit/Ml 10 Ml Vial) 25 unit SUBCUT DAILY@0730 [facility] Last Admin: 10/01/22 09:01 Dose: 25 unit Documented By: OSMEL Insulin Human Lispro (Insulin Lispro 100 Unit/Ml 3 Ml Vial) 0 unit SUBCUT QIDACHS [facility]; Protocol Last Admin: 10/01/22 07:53 Dose: Not Given Documented By: OSMEL Non-Admin Reason: No Insulin Coverage Metformin HCl (Metformin Hcl 850 Mg Tablet) 850 mg PO BIDWM [facility] Last Admin: 10/01/22 08:54 Dose: 850 mg Documented By: OSMEL Metoprolol Succinate (Metoprolol Succinate Er 100 Mg Tab.Er.24h) 100 mg PO DAILY [facility] Last Admin: 10/01/22 08:54 Dose: 100 mg Documented By: OSMEL Sodium Hypochlorite (Sodium Hypochlorite 0.25% 473 Ml Solution) 1 appl TOPICAL BID [facility] Last Admin: 10/01/22 08:55 Dose: 1 appl Documented By: OSMEL Tamsulosin HCl (Tamsulosin Hcl 0.4 Mg Capsule) 0.8 mg PO DAILY [facility] Last Admin: 10/01/22 08:54 Dose: 0.8 mg Documented By: OSMEL Zinc Acetate/Diphenhydramine (Diphenhydramine Hcl 2 % Cream 28 Gm Tube) 1 appl TOPICAL TID PRN; Protocol PRN Reason: itching Last Admin: 09/28/22 09:32 Dose: 1 appl Documented By: DIPAK Labs 09/23/22 09:02 10/01/22 07:51 Labs: Laboratory Results - last 24 hr 09/30/22 09/30/22 10/01/22 16:41 21:31 07:18 Estim Creat Clear Calc Estimated GFR POC Glucose 190 H 189 H 103 10/01/22 10/01/22 07:51 11:13 Estim Creat Clear Calc 133.1 Estimated GFR > 60 POC Glucose 219 H Assessment and Plan (1) Stage 4 decubitus ulcer: Status: Acute Plan hospital d#109 74yo M with DM2, HTN, HLD, chronic venous stasis dermatitis presented with mechanical fall, admitted for hypoxia due to PNA and now awaiting safe placement # sacral decubitus ulcer - unstageable, necrotic 10cm x10 cm with 4 cm depth - frequent turning, air loss bed, continue wound care - s/p debridements 07/08, 07/17, 08/05 - s/p wound VAC placement 07/22 + removed 07/25 after it became soiled- no further role for VAC per Surgery - continue wet to dry dressings, periodic Surgery input # atrial flutter/fib - LVEF >70% - continue Toprol XL for rate control - continue AC with Eliquis # episode of SVT vs atrial tachycardia 07/26 - HR improved with IV Lopressor, finished loading dose of amiodarone and started on amiodarone 200 mg by mouth daily on 08/07, continue Toprol XL # acute blood loss anemia - resolved, was attributed to blood loss at site of decub ulcer, patient received 2 unit of packed RBC - continue ferrous sulfate b.i.d. - H/H stable, periodic check # traumatic SAH - CT brain 06/26: New small areas of extra-axial hemorrhage adjacent to the left posterior parietal lobe, bilateral occipital lobes and in the occipital horns of both lateral ventricles, repeat CT 06/28 unchanged - seen by Neuro; AC was held for two weeks - no headache, no dizziness; no other complications # acute hypoxic respiratory failure due to PNA - resolved; finished 10d of ABX; back on room air # urinary retention - failed voiding trial x2; continue tamsulosin and finasteride; seen by urology, continue Lemus upon discharge; outpatient urology follow up # hyponatremia - resolved; s/p urea; cortisol, TSH WNL # mechanical fall - difficulty ambulating; awaiting SNF placement, PT has been working with him # generalized weakness - 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 but not clinically NPH per Neurology # incidental 1.3cm pancreatic lesions - may reflect adjacent pancreatic cysts, outpt MRI/MRCP # DM2 - glycemic control acceptable; continue basal-bolus insulin + MTF # HTN - stable blood pressures, continue metoprolol; losartan and hydralazine discontinued due to soft blood pressures # HLD - statin # bilateral eye dryness - clear tearing,no erythema or pain or vision change - added artificial tears drops # rash - Bendaryl cream helping # VTE ppx: Eliquis # dispo: awaiting placement In my clinical judgment, the patient requires continued inpatient hospitalization for the following reasons: safe placement Time Spent With Patient Time: Total time managing care of this patient today ____ minutes. Quality Stroke Does the patient have a stroke diagnosis?: No VTE Prior VTE?: No VTE Risk Level:: Medical - moderate - high VTE Device Contraindication: Treatment Not Indicated VTE Drug Contraindication: N/A - Med Ordered
[2022-10-01] MEDS: Insulin Lispro 100 UNIT/ML 3 ML VIAL SUBCUT ×3 (11:55→21:28)
[2022-10-01 15:46] VITALS: BP 121/59; PULSE 89; RESP 18; TEMP 36.5; O2SAT 95
[2022-10-01 16:18] LABS: Glucose, Whole Blood 172 mg/dL (60-115)
[2022-10-01 19:27] VITALS: BP 134/64; PULSE 85; RESP 18; TEMP 36.4; O2SAT 95
[2022-10-01 21:24] LABS: Glucose, Whole Blood 218 mg/dL (60-115)
[2022-10-01] MEDS: Insulin Glargine,Hum.rec.anlog 100 UNIT/ML 10 ML VIAL SUBCUT (21:28)
[2022-10-01] MEDS: Acetaminophen 325 MG TABLET 650 MG PO (22:16)
[2022-10-01 23:51] VITALS: RESP 18
[2022-10-02 04:00] VITALS: BP 129/61; PULSE 78; RESP 18; TEMP 36.5; O2SAT 98
[2022-10-02 07:03] VITALS: BP 118/60; PULSE 76; RESP 19; TEMP 35.5; O2SAT 96
[2022-10-02 07:20] LABS: Glucose, Whole Blood 108 mg/dL (60-115)
[2022-10-02] MEDS: Amiodarone HCL 200 MG TABLET PO (08:37)
[2022-10-02] MEDS: Apixaban 5 MG TABLET PO ×2 (08:37→21:49)
[2022-10-02] MEDS: Ferrous Sulfate 324 MG TABLET.DR PO ×2 (08:38→17:13)
[2022-10-02] MEDS: Tamsulosin HCL 0.4 MG CAPSULE 0.8 MG PO (08:38)
[2022-10-02] MEDS: Metoprolol Succinate ER 100 MG TAB.ER.24H PO (08:38)
[2022-10-02] MEDS: metFORMIN HCl 850 MG TABLET PO ×2 (08:39→17:13)
[2022-10-02] MEDS: Finasteride 5 MG TABLET PO (08:39)
[2022-10-02] MEDS: Insulin Glargine,Hum.rec.anlog 100 UNIT/ML 10 ML VIAL 25 UNIT SUBCUT (08:51)
[2022-10-02] MEDS: Artificial Tears 15 ML DROPS 1 DROP EYE-BOTH (08:57)
--- NOTE | 2022-10-02 09:46 | MHC.CM.PN ---
Patient awaits LTC placement and SNF referral have been undated yesterday. CM will follow.
[2022-10-02 11:08] LABS: Glucose, Whole Blood 216 mg/dL (60-115)
[2022-10-02] MEDS: Insulin Lispro 100 UNIT/ML 3 ML VIAL SUBCUT ×3 (12:18→21:49)
--- NOTE | 2022-10-02 13:23 | P.PNIM_ITS ---
Subjective Subjective Date of Service: 10/02/22 Interval History: pain controlled no new issues Review of Systems Review of Systems: Yes all other systems are reviewed and are negative Physical Exam Vital Signs: Vital Signs: Last Vital Signs Temp 96 F L 10/02/22 07:03 Pulse 76 10/02/22 07:03 Resp 19 10/02/22 07:03 BP 118/60 10/02/22 07:03 Pulse Ox 96 10/02/22 07:03 O2 Del Method 10/02/22 07:03 O2 Flow Rate 2 09/04/22 12:48 BMI result Body Mass Index 26.6 Gen: in no acute distress HEENT: sclera anicteric, moist mucus membranes Neck: supple Lungs: clear to auscultation bilaterally Heart: regular rate and rhythm, no murmurs Abd: soft, non-tender, non-distended Ext: no edema Skin: sacral ulcer Neuro: alert and oriented x3, no focal findings Psych: appropriate affect Objective Data Active Medications Acetaminophen (Acetaminophen 325 Mg Tablet) 650 mg PO Q6H PRN PRN Reason: Pain, Mild (Pain Scale 1-3) Last Admin: 10/01/22 22:16 Dose: 650 mg Documented By: CHARLI Amiodarone HCl (Amiodarone Hcl 200 Mg Tablet) 200 mg PO DAILY [facility] Last Admin: 10/02/22 08:37 Dose: 200 mg Documented By: KHURRAM Apixaban (Apixaban 5 Mg Tablet) 5 mg PO BID [facility] Last Admin: 10/02/22 08:37 Dose: 5 mg Documented By: KHURRAM Artificial Tears (Artificial Tears 15 Ml Drops) 1 drop EYE-BOTH Q4H PRN PRN Reason: tearin Last Admin: 10/02/22 08:57 Dose: 1 drop Documented By: KHURRAM Benzocaine (Throat Lozenge, Medicated Lozenge) 1 lozenge MUCOUS MEM Q2H PRN PRN Reason: Sore Throat Dextrose (Dextrose 50 % 25 Gm/50 Ml Syringe) 25 gm IVPUSH Q15M PRN; Protocol PRN Reason: per Hypoglycemia Standing Ord. Ferrous Sulfate (Ferrous Sulfate 324 Mg Tablet.) 324 mg PO BIDWM [facility] Last Admin: 10/02/22 08:38 Dose: 324 mg Documented By: KHURRAM Finasteride (Finasteride 5 Mg Tablet) 5 mg PO DAILY [facility] Last Admin: 10/02/22 08:39 Dose: 5 mg Documented By: KHURRAM Glucose (Glucose Gel 15 Gm Gel..Gram.) 15 gm PO Q15M PRN; Protocol PRN Reason: per Hypoglycemia Standing Ord. Guaifenesin (Guaifenesin 100 Mg/5 Ml Liquid) 5 ml PO Q6H PRN PRN Reason: Cough Insulin Glargine (Insulin Glargine,Hum.Rec.Anlog 100 Unit/Ml 10 Ml Vial) 5 unit SUBCUT BEDTIME [facility] Last Admin: 10/01/22 21:28 Dose: 5 unit Documented By: CHARLI Insulin Glargine (Insulin Glargine,Hum.Rec.Anlog 100 Unit/Ml 10 Ml Vial) 25 uni t SUBCUT DAILY@0730 [facility] Last Admin: 10/02/22 08:51 Dose: 25 unit Documented By: KHURRAM Insulin Human Lispro (Insulin Lispro 100 Unit/Ml 3 Ml Vial) 0 unit SUBCUT QIDACHS [facility]; Protocol Last Admin: 10/02/22 12:18 Dose: 4 unit Documented By: KHURRAM Metformin HCl (Metformin Hcl 850 Mg Tablet) 850 mg PO BIDWM [facility] Last Admin: 10/02/22 08:39 Dose: 850 mg Documented By: KHURRAM Metoprolol Succinate (Metoprolol Succinate Er 100 Mg Tab.Er.24h) 100 mg PO DAILY [facility] Last Admin: 10/02/22 08:38 Dose: 100 mg Documented By: KHURRAM Sodium Hypochlorite (Sodium Hypochlorite 0.25% 473 Ml Solution) 1 appl TOPICAL BID [facility] Last Admin: 10/02/22 11:01 Dose: 1 appl Documented By: NADEGE Tamsulosin HCl (Tamsulosin Hcl 0.4 Mg Capsule) 0.8 mg PO DAILY [facility] Last Admin: 10/02/22 08:38 Dose: 0.8 mg Documented By: KHURRAM Zinc Acetate/Diphenhydramine (Diphenhydramine Hcl 2 % Cream 28 Gm Tube) 1 appl TOPICAL TID PRN; Protocol PRN Reason: itching Last Admin: 09/28/22 09:32 Dose: 1 appl Documented By: DIPAK Labs 09/23/22 09:02 10/01/22 07:51 Labs: Laboratory Results - last 24 hr 10/01/22 10/01/22 10/02/22 16:14 21:17 07:17 POC Glucose 172 H 218 H 108 10/02/22 11:03 POC Glucose 216 H Assessment and Plan (1) Stage 4 decubitus ulcer: Status: Acute [facility] d#110 74yo M with DM2, HTN, HLD, chronic venous stasis dermatitis presented with mechanical fall, admitted for hypoxia due to PNA and now awaiting safe placement # sacral decubitus ulcer - unstageable, necrotic 10cm x10 cm with 4 cm depth - frequent turning, air loss bed, continue wound care - s/p debridements 07/08, 07/17, 08/05 - s/p wound VAC placement 07/22 + removed 07/25 after it became soiled- no further role for VAC per Surgery - continue wet to dry dressings, periodic Surgery input # atrial flutter/fib - LVEF >70% - continue Toprol XL for rate control - continue AC with Eliquis # episode of SVT vs atrial tachycardia 07/26 - HR improved with IV Lopressor, finished loading dose of amiodarone and started on amiodarone 200 mg by mouth daily on 08/07, continue Toprol XL # acute blood loss anemia - resolved, was attributed to blood loss at site of decub ulcer, patient received 2 unit of packed RBC - continue ferrous sulfate b.i.d. - H/H stable, periodic check # traumatic SAH - CT brain 06/26: New small areas of extra-axial hemorrhage adjacent to the left posterior parietal lobe, bilateral occipital lobes and in the occipital horns of both lateral ventricles, repeat CT 06/28 unchanged - seen by Neuro; AC was held for two weeks - no headache, no dizziness; no other complications # acute hypoxic respiratory failure due to PNA - resolved; finished 10d of ABX; back on room air # urinary retention - failed voiding trial x2; continue tamsulosin and finasteride; seen by urology, continue Lemus upon discharge; outpatient urology follow up # hyponatremia - resolved; s/p urea; cortisol, TSH WNL # mechanical fall - difficulty ambulating; awaiting SNF placement, PT has been working with him # generalized weakness - 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 but not clinically NPH per Neurology # incidental 1.3cm pancreatic lesions - may reflect adjacent pancreatic cysts, outpt MRI/MRCP # DM2 - glycemic control acceptable; continue basal-bolus insulin + MTF # HTN - stable blood pressures, continue metoprolol; losartan and hydralazine discontinued due to soft blood pressures # HLD - statin # bilateral eye dryness - clear tearing,no erythema or pain or vision change - added artificial tears drops # rash - Bendaryl cream helping # VTE ppx: Eliquis # dispo: awaiting placement In my clinical judgment, the patient requires continued inpatient hospitalization for the following reasons: safe placement Time Spent With Patient Time: Total time managing care of this patient today _25___ minutes. Quality Stroke Does the patient have a stroke diagnosis?: No VTE Prior VTE?: No VTE Risk Level:: Medical - moderate - high VTE Device Contraindication: Treatment Not Indicated VTE Drug Contraindication: N/A - Med Ordered
--- NOTE | 2022-10-02 14:34 | MHC.CM.PN ---
KP received word from CM/Technical Internship/Violet that [facility] is no longer covering Patient's hospital stay and that an IMM needs to be done with Patient. CM met with Patient at bedside and informed him of [facility] decision and addressed IMM with him (original IMM has been given to Patient and a copy has been placed on the chart). Patient appears alert and oriented but he asked CM to phone his Cousin and OLIVIA/Alok @ [phone]. CM spoke with Alok, explained the situation, and provided Alok with contact information for [facility] and explained Patient/Family's right to appeal [facility]'s decision. Alok indicated that he did NOT wish to appeal r/t the fact that he has contacted a Skin Installer who will be handling/completing Patient's [employer] application and that this Skin Installer is on vacation until next week and that he has an appointment with said Skin Installer , 10/10/2022 at 10AM. CM encourage Alok to perhaps ask the advice of his Skin Installer, regarding a possible appeal of [facility] decision but he did not want to do this. KP has relayed this information to Violet and will continue to follow.
[2022-10-02 15:05] VITALS: BP 107/55; PULSE 89; RESP 18; TEMP 36.7; O2SAT 95
--- NOTE | 2022-10-02 15:08 | MHC.CM.PN ---
Per CM/Reproductive Healthcare Assistant/Violet, Patient's POA/Cousin/Alok has decided to appeal [facility] decision to stop paying fir Patient's stay. CM will follow.
[2022-10-02 16:06] LABS: Glucose, Whole Blood 173 mg/dL (60-115)
[2022-10-02 19:29] VITALS: BP 127/59; PULSE 87; RESP 17; TEMP 36.6; O2SAT 94
[2022-10-02 20:53] LABS: Glucose, Whole Blood 204 mg/dL (60-115)
[2022-10-02] MEDS: Insulin Glargine,Hum.rec.anlog 100 UNIT/ML 10 ML VIAL SUBCUT (21:50)
[2022-10-02] MEDS: Acetaminophen 325 MG TABLET 650 MG PO (21:51)
[2022-10-03] MEDS: guaiFENesin 100 MG/5 ML LIQUID PO ×2 (03:28→22:10)
[2022-10-03 03:37] VITALS: BP 118/56; PULSE 68; RESP 18; TEMP 36.1; O2SAT 95
[2022-10-03 06:38] LABS: Hematocrit 35.6 % (42.0-52.0); Mean Corpuscular HGB Conc 30.9 g/dl (31.0-36.0); Mean Corpuscular Hemoglobin 24.2 pg (27.0-33.0); Mean Corpuscular Volume 78.2 fL (80.0-98.0); Mean Platelet Volume 8.3 fL (9.4-12.4); Platelet Count 215 X10*3/uL (160-400); Red Blood Count 4.55 X10*6/uL (4.60-5.80); Red Cell Distribution Width 16.4 % (11.0-16.0); White Blood Count 6.3 X10*3/uL (4.8-10.8)
[2022-10-03 06:58] LABS: Anion Gap 12 (12-20); Blood Urea Nitrogen 15 mg/dL (9-16); Calcium 8.8 mg/dL (8.4-10.2); Carbon Dioxide 30 mmol/L (22-29); Chloride 102 mmol/L (96-108); Creatinine Clr Calc Pharmacy 130.2; Estimated Glomerular Filt Rate > 60; Glucose Random 68 mg/dL (60-115); Potassium 4.2 mmol/L (3.3-5.1); Sodium 140 mmol/L (135-145)
[2022-10-03 08:00] VITALS: BP 165/75; PULSE 74; RESP 18; TEMP 36.8; O2SAT 98
[2022-10-03 08:35] LABS: Glucose, Whole Blood 85 mg/dL (60-115)
[2022-10-03] MEDS: metFORMIN HCl 850 MG TABLET PO ×2 (08:54→16:30)
[2022-10-03] MEDS: Apixaban 5 MG TABLET PO ×2 (08:54→22:10)
[2022-10-03] MEDS: Amiodarone HCL 200 MG TABLET PO (08:54)
[2022-10-03] MEDS: Tamsulosin HCL 0.4 MG CAPSULE 0.8 MG PO (08:54)
[2022-10-03] MEDS: Metoprolol Succinate ER 100 MG TAB.ER.24H PO (08:54)
[2022-10-03] MEDS: Finasteride 5 MG TABLET PO (08:55)
[2022-10-03] MEDS: Ferrous Sulfate 324 MG TABLET.DR PO ×2 (09:10→16:30)
--- NOTE | 2022-10-03 10:36 | P.PNIM_ITS ---
Subjective Subjective Date of Service: 10/03/22 Interval History: developed dry cough overnight without dyspnea or fever no chest pain Review of Systems Review of Systems: Yes all other systems are reviewed and are negative Physical Exam Vital Signs: Vital Signs: Last Vital Signs Temp 98.3 F 10/03/22 08:00 Pulse 74 10/03/22 08:00 Resp 18 10/03/22 08:00 BP 165/75 H 10/03/22 08:00 Pulse Ox 98 10/03/22 08:00 O2 Del Method 10/03/22 08:00 O2 Flow Rate 2 09/04/22 12:48 BMI result Body Mass Index 26.6 Gen: in no acute distress HEENT: sclera anicteric, moist mucus membranes Neck: supple Lungs: clear to auscultation bilaterally Heart: regular rate and rhythm, no murmurs Abd: soft, non-tender, non-distended Ext: no edema Skin: sacral ulcer Neuro: alert and oriented x3, no focal findings Psych: appropriate affect Objective Data Active Medications Acetaminophen (Acetaminophen 325 Mg Tablet) 650 mg PO Q6H PRN PRN Reason: Pain, Mild (Pain Scale 1-3) Last Admin: 10/02/22 21:51 Dose: 650 mg Documented By: CHARLI Amiodarone HCl (Amiodarone Hcl 200 Mg Tablet) 200 mg PO DAILY [facility] Last Admin: 10/03/22 08:54 Dose: 200 mg Documented By: ERIC Apixaban (Apixaban 5 Mg Tablet) 5 mg PO BID [facility] Last Admin: 10/03/22 08:54 Dose: 5 mg Documented By: ERIC Artificial Tears (Artificial Tears 15 Ml Drops) 1 drop EYE-BOTH Q4H PRN PRN Reason: tearin Last Admin: 10/02/22 08:57 Dose: 1 drop Documented By: KHURRAM Benzocaine (Throat Lozenge, Medicated Lozenge) 1 lozenge MUCOUS MEM Q2H PRN PRN Reason: Sore Throat Dextrose (Dextrose 50 % 25 Gm/50 Ml Syringe) 25 gm IVPUSH Q15M PRN; Protocol PRN Reason: per Hypoglycemia Standing Ord. Ferrous Sulfate (Ferrous Sulfate 324 Mg Tablet.) 324 mg PO BIDWM [facility] Last Admin: 10/03/22 09:10 Dose: 324 mg Documented By: ERIC Finasteride (Finasteride 5 Mg Tablet) 5 mg PO DAILY [facility] Last Admin: 10/03/22 08:55 Dose: 5 mg Documented By: ERIC Glucose (Glucose Gel 15 Gm Gel..Gram.) 15 gm PO Q15M PRN; Protocol PRN Reason: per Hypoglycemia Standing Ord. Guaifenesin (Guaifenesin 100 Mg/5 Ml Liquid) 5 ml PO Q6H PRN PRN Reason: Cough Last Admin: 10/03/22 03:28 Dose: 5 ml Documented By: CHARLI Insulin Glargine (Insulin Glargine,Hum.Rec.Anlog 100 Unit/Ml 10 Ml Vial) 5 unit SUBCUT BEDTIME [facility] Last Admin: 10/02/22 21:50 Dose: 5 unit Documented By: CHARLI Insulin Glargine (Insulin Glargine,Hum.Rec.Anlog 100 Unit/Ml 10 Ml Vial) 25 u nit SUBCUT DAILY@0730 [facility] Last Admin: 10/03/22 08:46 Dose: Not Given Documented By: ERIC Non-Admin Reason: No Insulin Coverage Insulin Human Lispro (Insulin Lispro 100 Unit/Ml 3 Ml Vial) 0 unit SUBCUT QIDACHS [facility]; Protocol Last Admin: 10/03/22 08:46 Dose: Not Given Documented By: ERIC Non-Admin Reason: No Insulin Coverage Metformin HCl (Metformin Hcl 850 Mg Tablet) 850 mg PO BIDWM [facility] Last Admin: 10/03/22 08:54 Dose: 850 mg Documented By: ERIC Metoprolol Succinate (Metoprolol Succinate Er 100 Mg Tab.Er.24h) 100 mg PO DAILY [facility] Last Admin: 10/03/22 08:54 Dose: 100 mg Documented By: ERIC Sodium Hypochlorite (Sodium Hypochlorite 0.25% 473 Ml Solution) 1 appl TOPICAL BID [facility] Last Admin: 10/02/22 21:50 Dose: 1 appl Documented By: CHARLI Tamsulosin HCl (Tamsulosin Hcl 0.4 Mg Capsule) 0.8 mg PO DAILY [facility] Last Admin: 10/03/22 08:54 Dose: 0.8 mg Documented By: ERIC Zinc Acetate/Diphenhydramine (Diphenhydramine Hcl 2 % Cream 28 Gm Tube) 1 appl TOPICAL TID PRN; Protocol PRN Reason: itching Last Admin: 09/28/22 09:32 Dose: 1 appl Documented By: DIPAK Labs 10/03/22 05:41 10/03/22 05:41 Labs: Laboratory Results - last 24 hr 10/02/22 10/02/22 10/02/22 11:03 16:01 20:37 MCV MCH MCHC RDW Plt Count MPV Absolute Nucleated RBC Nucleated RBC % (auto) Anion Gap Estim Creat Clear Calc Estimated GFR POC Glucose 216 H 173 H 204 H Random Glucose Calcium 10/03/22 10/03/22 10/03/22 05:41 05:41 08:31 MCV 78.2 L MCH 24.2 L MCHC 30.9 L RDW 16.4 H Plt Count 215 MPV 8.3 L Absolute Nucleated RBC 0.000 Nucleated RBC % (auto) 0.0 Anion Gap 12 Estim Creat Clear Calc 130.2 Estimated GFR > 60 POC Glucose 85 Random Glucose 68 Calcium 8.8 Assessment and Plan (1) Stage 4 decubitus ulcer: Status: Acute [facility] d#111 74yo M with DM2, HTN, HLD, chronic venous stasis dermatitis presented with mechanical fall, admitted for hypoxia due to PNA and now awaiting safe placement # dry cough - Covid/RSV/flu PCR, CXR, prn guaifenesin/DM # sacral decubitus ulcer - unstageable, necrotic 10cm x10 cm with 4 cm depth - frequent turning, air loss bed, continue wound care - s/p debridements 07/08, 07/17, 08/05 - s/p wound VAC placement 07/22 + removed 07/25 after it became soiled- no further role for VAC per Surgery - continue wet to dry dressings, periodic Surgery input # atrial flutter/fib - LVEF >70% - continue Toprol XL for rate control - continue AC with Eliquis # episode of SVT vs atrial tachycardia 07/26 - HR improved with IV Lopressor, finished loading dose of amiodarone and started on amiodarone 200 mg by mouth daily on 08/07, continue Toprol XL # acute blood loss anemia - resolved, was attributed to blood loss at site of decub ulcer, patient re ceived 2 unit of packed RBC - continue ferrous sulfate b.i.d. - H/H stable, periodic check- today's stable # traumatic SAH - CT brain 06/26: New small areas of extra-axial hemorrhage adjacent to the left posterior parietal lobe, bilateral occipital lobes and in the occipital horns of both lateral ventricles, repeat CT 06/28 unchanged - seen by Neuro; AC was held for two weeks - no headache, no dizziness; no other complications # acute hypoxic respiratory failure due to PNA - resolved; finished 10d of ABX; back on room air # urinary retention - failed voiding trial x2; continue tamsulosin and finasteride; seen by urology, continue Lemus upon discharge; outpatient urology follow up # hyponatremia - resolved; s/p urea; cortisol, TSH WNL # mechanical fall - difficulty ambulating; awaiting SNF placement, PT has been working with him # generalized weakness - 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 but not clinically NPH per Neurology # incidental 1.3cm pancreatic lesions - may reflect adjacent pancreatic cysts, outpt MRI/MRCP # DM2 - glycemic control acceptable; continue basal-bolus insulin + MTF # HTN - stable blood pressures, continue metoprolol; losartan and hydralazine discontinued due to soft blood pressures # HLD - statin # bilateral eye dryness - clear tearing, no erythema or pain or vision change - added artificial tears drops # rash - Bendaryl cream, add hydrocortisone # VTE ppx: Eliquis # dispo: awaiting placement LTC In my clinical judgment, the patient requires continued inpatient hospitalization for the following reasons: safe placement Time Spent With Patient Time: Total time managing care of this patient today ____ minutes. Quality Stroke Does the patient have a stroke diagnosis?: No VTE Prior VTE?: No VTE Risk Level:: Medical - moderate - high VTE Device Contraindication: Treatment Not Indicated VTE Drug Contraindication: N/A - Med Ordered
[2022-10-03 11:21] LABS: Glucose, Whole Blood 214 mg/dL (60-115)
[2022-10-03] MEDS: Insulin Lispro 100 UNIT/ML 3 ML VIAL SUBCUT ×3 (12:17→22:12)
[2022-10-03] MEDS: Acetaminophen 325 MG TABLET 650 MG PO ×2 (14:45→22:10)
[2022-10-03 14:57] LABS: Influenza A PCR NEGATIVE (Negative); Influenza B PCR NEGATIVE (Negative); Resp Syncy Virus RNA Qual PCR NEGATIVE (Negative); SARS COV2 PCR INHOUSE NEGATIVE (Negative)
[2022-10-03 15:18] VITALS: BP 117/55; PULSE 85; RESP 17; TEMP 36.6; O2SAT 95
[2022-10-03 16:23] LABS: Glucose, Whole Blood 194 mg/dL (60-115)
[2022-10-03 20:00] VITALS: BP 124/59; PULSE 84; RESP 18; TEMP 36.3; O2SAT 95
[2022-10-03 20:28] LABS: Glucose, Whole Blood 232 mg/dL (60-115)
[2022-10-03] MEDS: Insulin Glargine,Hum.rec.anlog 100 UNIT/ML 10 ML VIAL SUBCUT (22:11)
[2022-10-04 02:47] VITALS: BP 110/56; PULSE 78; RESP 20; TEMP 36.4; O2SAT 100
[2022-10-04] MEDS: guaiFENesin 100 MG/5 ML LIQUID PO ×2 (05:06→22:27)
[2022-10-04 08:00] VITALS: BP 146/70; PULSE 87; RESP 16; TEMP 36.6
[2022-10-04 08:58] LABS: Glucose, Whole Blood 179 mg/dL (60-115)
[2022-10-04] MEDS: Insulin Lispro 100 UNIT/ML 3 ML VIAL SUBCUT ×4 (09:07→22:27)
[2022-10-04] MEDS: Insulin Glargine,Hum.rec.anlog 100 UNIT/ML 10 ML VIAL 25 UNIT SUBCUT (09:07)
[2022-10-04] MEDS: Apixaban 5 MG TABLET PO ×2 (09:08→22:27)
[2022-10-04] MEDS: Finasteride 5 MG TABLET PO (09:08)
[2022-10-04] MEDS: Tamsulosin HCL 0.4 MG CAPSULE 0.8 MG PO (09:08)
[2022-10-04] MEDS: metFORMIN HCl 850 MG TABLET PO ×2 (09:08→17:23)
[2022-10-04] MEDS: Amiodarone HCL 200 MG TABLET PO (09:08)
[2022-10-04] MEDS: Ferrous Sulfate 324 MG TABLET.DR PO ×2 (09:08→17:23)
[2022-10-04] MEDS: Metoprolol Succinate ER 100 MG TAB.ER.24H PO (09:08)
[2022-10-04] MEDS: Hydrocortisone 1 % Cream 28.35 GM TUBE 1 APPL TOPICAL ×2 (09:09→22:44)
[2022-10-04 11:41] LABS: Glucose, Whole Blood 217 mg/dL (60-115)
--- NOTE | 2022-10-04 14:18 | HO.PM.IMPN ---
Subjective Subjective Date of Service: 10/04/22 Interval History: No complaints. Review of Systems Review of Systems: Yes all other systems are reviewed and are negative Physical Exam Vital Signs: Vital Signs: Last Vital Signs Temp 97.8 F 10/04/22 08:00 Pulse 87 10/04/22 08:00 Resp 16 10/04/22 08:00 BP 146/70 H 10/04/22 08:00 Pulse Ox 100 10/04/22 02:47 O2 Del Method 10/04/22 08:00 O2 Flow Rate 2 09/04/22 12:48 BMI result Body Mass Index 26.6 Constitutional - Awake and Alert, No apparent distress Eyes - PERRLA, EOMI Cardiovascular - S1S2, RRR, No edema Respiratory - Normal lung expansion, Normal respiratory effort, No respiratory distress, CTA bilaterally Gastrointestinal - NT / ND; +BS; No rebound or guarding Extremities - no calf tenderness bilaterally, no swelling Skin - Warm/Dry. sacral ulcer without necrosis or slough, clear appearing, no purulent drainage Neurological - Alert & oriented x3 Psychological - Appropriate affect Objective Data Active Medications Acetaminophen (Acetaminophen 325 Mg Tablet) 650 mg PO Q6H PRN PRN Reason: Pain, Mild (Pain Scale 1-3) Last Admin: 10/03/22 22:10 Dose: 650 mg Documented By: TOM Amiodarone HCl (Amiodarone Hcl 200 Mg Tablet) 200 mg PO DAILY [facility] Last Admin: 10/04/22 09:08 Dose: 200 mg Documented By: KARMEN Apixaban (Apixaban 5 Mg Tablet) 5 mg PO BID [facility] Last Admin: 10/04/22 09:08 Dose: 5 mg Documented By: KARMEN Artificial Tears (Artificial Tears 15 Ml Drops) 1 drop EYE-BOTH Q4H PRN PRN Reason: tearin Last Admin: 10/02/22 08:57 Dose: 1 drop Documented By: KHURRAM Benzocaine (Throat Lozenge, Medicated Lozenge) 1 lozenge MUCOUS MEM Q2H PRN PRN Reason: Sore Throat Dextrose (Dextrose 50 % 25 Gm/50 Ml Syringe) 25 gm IVPUSH Q15M PRN; Protocol PRN Reason: per Hypoglycemia Standing Ord. Ferrous Sulfate (Ferrous Sulfate 324 Mg Tablet.) 324 mg PO BIDWM [facility] Last Admin: 10/04/22 09:08 Dose: 324 mg Documented By: KARMEN Finasteride (Finasteride 5 Mg Tablet) 5 mg PO DAILY [facility] Last Admin: 10/04/22 09:08 Dose: 5 mg Documented By: KARMEN Glucose (Glucose Gel 15 Gm Gel..Gram.) 15 gm PO Q15M PRN; Protocol PRN Reason: per Hypoglycemia Standing Ord. Guaifenesin (Guaifenesin 100 Mg/5 Ml Liquid) 5 ml PO Q6H PRN PRN Reason: Cough Last Admin: 10/04/22 05:06 Dose: 5 ml Documented By: TOM Guaifenesin/Dextromethorphan (Guaifenesin Dm 100/10/5 Ml 5 Ml Syrup) 5 ml PO Q4H PRN PRN Reason: coughiness Hydrocortisone (Hydrocortisone 1 % Cream 28.35 Gm Tube) 1 appl TOPICAL BID [facility]; Protocol Last Admin: 10/04/22 09:09 Dose: 1 appl Documented By: KARMEN Insulin Glargine (Insulin Glargine,Hum.Rec.Anlog 100 Unit/Ml 10 Ml Vial) 5 unit SUBCUT BEDTIME [facility] Last Admin: 10/03/22 22:11 Dose: 5 unit Documented By: TOM Insulin Glargine (Insulin Glargine,Hum.Rec.Anlog 100 Unit/Ml 10 Ml Vial) 25 unit SUBCUT DAILY@0730 [facility] Last Admin: 10/04/22 09:07 Dose: 25 unit Documented By: KARMEN Insulin Human Lispro (Insulin Lispro 100 Unit/Ml 3 Ml Vial) 0 unit SUBCUT QIDACHS [facility]; Protocol Last Admin: 10/04/22 11:56 Dose: 4 unit Documented By: KARMEN Metformin HCl (Metformin Hcl 850 Mg Tablet) 850 mg PO BIDWM [facility] Last Admin: 10/04/22 09:08 Dose: 850 mg Documented By: KARMEN Metoprolol Succinate (Metoprolol Succinate Er 100 Mg Tab.Er.24h) 100 mg PO DAILY [facility] Last Admin: 10/04/22 09:08 Dose: 100 mg Documented By: KARMEN Sodium Hypochlorite (Sodium Hypochlorite 0.25% 473 Ml Solution) 1 appl TOPICAL BID [facility] Last Admin: 10/04/22 12:24 Dose: 1 appl Documented By: KARMEN Tamsulosin HCl (Tamsulosin Hcl 0.4 Mg Capsule) 0.8 mg PO DAILY [facility] Last Admin: 10/04/22 09:08 Dose: 0.8 mg Documented By: KARMEN Zinc Acetate/Diphenhydramine (Diphenhydramine Hcl 2 % Cream 28 Gm Tube) 1 appl TOPICAL QID PRN; Protocol PRN Reason: itching Labs 10/03/22 05:41 10/03/22 05:41 Labs: Laboratory Results - last 24 hr 10/03/22 10/03/22 10/03/22 13:50 16:15 19:48 POC Glucose 194 H 232 H Influenza Type A (PCR) NEGATIVE Influenza Type B (PCR) NEGATIVE RSV RNA Qual (PCR) NEGATIVE SARS-CoV-2 RNA (RT-PCR) NEGATIVE 10/04/22 10/04/22 08:51 11:34 POC Glucose 179 H 217 H Influenza Type A (PCR) Influenza Type B (PCR) RSV RNA Qual (PCR) SARS-CoV-2 RNA (RT-PCR) Assessment and Plan (1) Stage 4 decubitus ulcer: Status: [facility] hospital d#111 74yo M with DM2, HTN, HLD, chronic venous stasis dermatitis presented with mechanical fall, admitted for hypoxia due to PNA and now awaiting safe placement # dry cough - Covid/RSV/flu PCR, CXR negative - prn guaifenesin/DM # sacral decubitus ulcer - unstageable, necrotic 10cm x10 cm with 4 cm depth - frequent turning, air loss bed, continue wound care - s/p debridements 07/08, 07/17, 08/05 - s/p wound VAC placement 07/22 + removed 07/25 after it became soiled- no further role for VAC per Surgery - continue wet to dry dressings, periodic Surgery input # atrial flutter/fib - LVEF >70% - continue Toprol XL for rate control - continue AC with Eliquis # episode of SVT vs atrial tachycardia 07/26 - HR improved with IV Lopressor, finished loading dose of amiodarone and started on amiodarone 200 mg by mouth daily on 08/07, continue Toprol XL # acute blood loss anemia - resolved, was attributed to blood loss at site of decub ulcer, patient received 2 unit of packed RBC - continue ferrous sulfate b.i.d. - H/H stable, periodic check- today's stable # traumatic SAH - CT brain 06/26: New small areas of extra-axial hemorrhage adjacent to the left posterior parietal lobe, bilateral occipital lobes and in the occipital horns of both lateral ventricles, repeat CT 06/28 unchanged - seen by Neuro; AC was held for two weeks - no headache, no dizziness; no other complications # acute hypoxic respiratory failure due to PNA - resolved; finished 10d of ABX; back on room air # urinary retention - failed voiding trial x2; continue tamsulosin and finasteride; seen by urology, continue Lemus upon discharge; outpatient urology follow up # hyponatremia - resolved; s/p urea; cortisol, TSH WNL # mechanical fall - difficulty ambulating; awaiting SNF placement, PT has been working with him # generalized weakness - 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 but not clinically NPH per Neurology # incidental 1.3cm pancreatic lesions - may reflect adjacent pancreatic cysts, outpt MRI/MRCP # DM2 - glycemic control acceptable; continue basal-bolus insulin + MTF # HTN - stable blood pressures, continue metoprolol; losartan and hydralazine discontinued due to soft blood pressures # HLD - statin # bilateral eye dryness - clear tearing, no erythema or pain or vision change - added artificial tears drops # rash - Bendaryl cream, add hydrocortisone # VTE ppx: Eliquis # dispo: awaiting placement LTC In my clinical judgment, the patient requires continued inpatient hospitalization for the following reasons: safe placement Time Spent With Patient Time: Total time managing care of this patient today ____ minutes. Quality Stroke Does the patient have a stroke diagnosis?: No VTE Prior VTE?: No VTE Risk Level:: Medical - moderate - high VTE Device Contraindication: Treatment Not Indicated VTE Drug Contraindication: N/A - Med Ordered
--- NOTE | 2022-10-04 15:12 | MHC.CM.PN ---
[facility] LIAISON CALLED TODAY TO ENSURE CM WAS AWARE PT WOULD BE PRIVATE PAYING FOR ANY SNF STAY SHE ALSO STATES THE PT HAS LOST HIS DC APPEAL REFERRALS WERE UPDATED THERE ARE STILL NO BED OFFERS FOR THIS PT
[2022-10-04 16:00] VITALS: BP 124/58; PULSE 94; RESP 18; TEMP 37.4; O2SAT 96
[2022-10-04 16:54] LABS: Glucose, Whole Blood 170 mg/dL (60-115)
[2022-10-04 20:00] VITALS: BP 121/57; PULSE 88; RESP 17; TEMP 36.7; O2SAT 97
[2022-10-04 21:14] LABS: Glucose, Whole Blood 175 mg/dL (60-115)
[2022-10-04] MEDS: Acetaminophen 325 MG TABLET 650 MG PO (22:27)
[2022-10-04] MEDS: Insulin Glargine,Hum.rec.anlog 100 UNIT/ML 10 ML VIAL SUBCUT (22:27)
[2022-10-05 03:46] VITALS: BP 100/54; PULSE 75; RESP 17; TEMP 36.2; O2SAT 96
[2022-10-05 06:28] LABS: Appearance Urine Turbid; Color Urine Yellow; Glucose Urine UA Negative (Negative); Leukocyte Esterase Urine Large (3+) (Negative); Nitrite Urine Positive (Negative); PH 6.5 (5.0-9.0); UMIC TRIGGER UA YES; Urine Blood Moderate (2+) (Negative); Urine Ketones Negative (Negative); Urine Protein 30 (1+) mg/dL (Neg-Trace)
[2022-10-05 06:40] LABS: Bacteria Urine 4+ (None Seen); WBC Urine >50 /HPF (0-5)
[2022-10-05 08:00] VITALS: BP 141/64; PULSE 78; RESP 18; TEMP 36.8; O2SAT 96
[2022-10-05 08:12] LABS: Glucose, Whole Blood 65 mg/dL (60-115)
[2022-10-05 08:16] LABS: MANUAL DIFF FLAG NO
[2022-10-05 08:19] LABS: Basophils Percent Auto 0.5 % (0-2); Eosinophils Absolute Auto 0.1 X10*3/uL (0.0-0.4); Eosinophils Percent Auto 1.8 % (0-4); Hematocrit 36.3 % (42.0-52.0); Hemoglobin 11.3 g/dl (14.0-18.0); Imm Gran Abs Auto 0.02 X10*3/uL (0.00-0.03); Imm Gran Pct Auto 0.3 % (0.0-0.4); Lymphocytes Percent Auto 31.2 % (20-40); Mean Corpuscular HGB Conc 31.1 g/dl (31.0-36.0); Mean Corpuscular Hemoglobin 24.1 pg (27.0-33.0); Mean Corpuscular Volume 77.4 fL (80.0-98.0); Mean Platelet Volume 8.1 fL (9.4-12.4); Monocytes Absolute Auto 0.4 X10*3/uL (0.1-1.2); Neutrophils Absolute Auto 3.7 x10*3/uL (2.0-8.3); Neutrophils Percent Auto 59.2 % (45-73); Platelet Count 204 X10*3/uL (160-400); Red Blood Count 4.69 X10*6/uL (4.60-5.80); Red Cell Distribution Width 16.7 % (11.0-16.0); White Blood Count 6.3 X10*3/uL (4.8-10.8)
[2022-10-05 08:35] LABS: Anion Gap 12 (12-20); Blood Urea Nitrogen 12 mg/dL (9-16); Calcium 8.8 mg/dL (8.4-10.2); Carbon Dioxide 30 mmol/L (22-29); Chloride 101 mmol/L (96-108); Creatinine Clr Calc Pharmacy 124.7; Estimated Glomerular Filt Rate > 60; Glucose Random 63 mg/dL (60-115); Potassium 3.7 mmol/L (3.3-5.1); Sodium 139 mmol/L (135-145)
[2022-10-05] MEDS: Metoprolol Succinate ER 100 MG TAB.ER.24H PO (09:10)
[2022-10-05] MEDS: Finasteride 5 MG TABLET PO (09:10)
[2022-10-05] MEDS: Insulin Glargine,Hum.rec.anlog 100 UNIT/ML 10 ML VIAL 25 UNIT SUBCUT (09:10)
[2022-10-05] MEDS: Apixaban 5 MG TABLET PO ×2 (09:11→21:55)
[2022-10-05] MEDS: Amiodarone HCL 200 MG TABLET PO (09:11)
[2022-10-05] MEDS: Tamsulosin HCL 0.4 MG CAPSULE 0.8 MG PO (09:11)
[2022-10-05] MEDS: Hydrocortisone 1 % Cream 28.35 GM TUBE 1 APPL TOPICAL ×2 (09:11→21:57)
[2022-10-05] MEDS: metFORMIN HCl 850 MG TABLET PO ×2 (09:11→17:11)
[2022-10-05] MEDS: Ferrous Sulfate 324 MG TABLET.DR PO ×2 (09:11→17:11)
--- NOTE | 2022-10-05 10:11 | P.PNIM_ITS ---
Subjective Subjective Date of Service: 10/05/22 Interval History: Still with occassional cough. Nonproductive. No sob, chest pain. Afebrile Review of Systems Review of Systems: Yes all other systems are reviewed and are negative Physical Exam Vital Signs: Vital Signs: Last Vital Signs Temp 98.2 F 10/05/22 08:00 Pulse 78 10/05/22 08:00 Resp 18 10/05/22 08:00 BP 141/64 H 10/05/22 08:00 Pulse Ox 96 10/05/22 08:00 O2 Del Method 10/05/22 08:00 O2 Flow Rate 2 09/04/22 12:48 BMI result Body Mass Index 26.6 Constitutional - Awake and Alert, No apparent distress Eyes - PERRLA, EOMI Cardiovascular - S1S2, RRR, No edema Respiratory - Normal lung expansion, Normal respiratory effort, No respiratory distress, CTA bilaterally Gastrointestinal - NT / ND; +BS; No rebound or guarding Extremities - no calf tenderness bilaterally, no swelling Skin - Warm/Dry Neurological - Alert & oriented x3 Psychological - Appropriate affect Objective Data Active Medications Acetaminophen (Acetaminophen 325 Mg Tablet) 650 mg PO Q6H PRN PRN Reason: Pain, Mild (Pain Scale 1-3) Last Admin: 10/04/22 22:27 Dose: 650 mg Documented By: TOM Amiodarone HCl (Amiodarone Hcl 200 Mg Tablet) 200 mg PO DAILY [facility] Last Admin: 10/05/22 09:11 Dose: 200 mg Documented By: OSMEL Apixaban (Apixaban 5 Mg Tablet) 5 mg PO BID [facility] Last Admin: 10/05/22 09:11 Dose: 5 mg Documented By: OSMEL Artificial Tears (Artificial Tears 15 Ml Drops) 1 drop EYE-BOTH Q4H PRN PRN Reason: tearin Last Admin: 10/02/22 08:57 Dose: 1 drop Documented By: KHURRAM Benzocaine (Throat Lozenge, Medicated Lozenge) 1 lozenge MUCOUS MEM Q2H PRN PRN Reason: Sore Throat Dextrose (Dextrose 50 % 25 Gm/50 Ml Syringe) 25 gm IVPUSH Q15M PRN; Protocol PRN Reason: per Hypoglycemia Standing Ord. Ferrous Sulfate (Ferrous Sulfate 324 Mg Tablet.) 324 mg PO BIDWM [facility] Last Admin: 10/05/22 09:11 Dose: 324 mg Documented By: OSMEL Finasteride (Finasteride 5 Mg Tablet) 5 mg PO DAILY [facility] Last Admin: 10/05/22 09:10 Dose: 5 mg Documented By: OSMEL Glucose (Glucose Gel 15 Gm Gel..Gram.) 15 gm PO Q15M PRN; Protocol PRN Reason: per Hypoglycemia Standing Ord. Guaifenesin (Guaifenesin 100 Mg/5 Ml Liquid) 5 ml PO Q6H PRN PRN Reason: Cough Last Admin: 10/04/22 22:27 Dose: 5 ml Documented By: TOM Guaifenesin/Dextromethorphan (Guaifenesin Dm 100/10/5 Ml 5 Ml Syrup) 5 ml PO Q4H PRN PRN Reason: coughiness Hydrocortisone (Hydrocortisone 1 % Cream 28.35 Gm Tube) 1 appl TOPICAL BID [facility]; Protocol Last Admin: 10/05/22 09:11 Dose: 1 appl Documented By: OSMEL Insulin Glargine (Insulin Glargine,Hum.Rec.Anlog 100 Unit/Ml 10 Ml Vial) 5 unit SUBCUT BEDTIME [facility] Last Admin: 10/04/22 22:27 Dose: 5 unit Documented By: TOM Insulin Glargine (Insulin Glargine,Hum.Rec.Anlog 100 Unit/Ml 10 Ml Vial) 25 unit SUBCUT DAILY@0730 [facility] Last Admin: 10/05/22 09:10 Dose: 25 unit Documented By: OSMEL Insulin Human Lispro (Insulin Lispro 100 Unit/Ml 3 Ml Vial) 0 unit SUBCUT QIDACHS [facility]; Protocol Last Admin: 10/05/22 08:51 Dose: Not Given Documented By: OSMEL Non-Admin Reason: No Insulin Coverage Metformin HCl (Metformin Hcl 850 Mg Tablet) 850 mg PO BIDWM [facility] Last Admin: 10/05/22 09:11 Dose: 850 mg Documented By: OSMEL Metoprolol Succinate (Metoprolol Succinate Er 100 Mg Tab.Er.24h) 100 mg PO DAILY [facility] Last Admin: 10/05/22 09:10 Dose: 100 mg Documented By: OSMEL Sodium Hypochlorite (Sodium Hypochlorite 0.25% 473 Ml Solution) 1 appl TOPICAL BID [facility] Last Admin: 10/05/22 09:11 Dose: 1 appl Documented By: OSMEL Tamsulosin HCl (Tamsulosin Hcl 0.4 Mg Capsule) 0.8 mg PO DAILY [facility] Last Admin: 10/05/22 09:11 Dose: 0.8 mg Documented By: OSMEL Zinc Acetate/Diphenhydramine (Diphenhydramine Hcl 2 % Cream 28 Gm Tube) 1 appl TOPICAL QID PRN; Protocol PRN Reason: itching Labs 10/05/22 08:08 10/05/22 08:08 Labs: Laboratory Results - last 24 hr 10/04/22 10/04/22 10/04/22 11:34 16:42 21:02 MCV MCH MCHC RDW Plt Count MPV Immature Gran % (Auto) Neut % (Auto) Lymph % (Auto) [place] % (Auto) Eos % (Auto) Baso % (Auto) Lymph # (Auto) [place] # (Auto) Eos # (Auto) Baso # (Auto) Abs Immat Gran (auto) Absolute Neuts (auto) Absolute Nucleated RBC Nucleated RBC % (auto) Anion Gap Estim Creat Clear Calc Estimated GFR POC Glucose 217 H 170 H 175 H Random Glucose Calcium Urine Color Urine Appearance Urine pH Ur Specific [place] Urine Protein Urine Glucose (UA) Urine Ketones Urine Blood Urine Nitrite Ur Leukocyte Esterase Urine RBC Urine WBC Ur Squamous Epith Cells Urine Bacteria Hyaline Casts Urine Yeast 10/05/22 10/05/22 10/05/22 06:00 07:52 08:08 MCV 77.4 L MCH 24.1 L MCHC 31.1 RDW 16.7 H Plt Count 204 MPV 8.1 L Immature Gran % (Auto) 0.3 Neut % (Auto) 59.2 Lymph % (Auto) 31.2 [place] % (Auto) 7.0 Eos % (Auto) 1.8 Baso % (Auto) 0.5 Lymph # (Auto) 2.0 [place] # (Auto) 0.4 Eos # (Auto) 0.1 Baso # (Auto) 0.0 Abs Immat Gran (auto) 0.02 Absolute Neuts (auto) 3.7 Absolute Nucleated RBC 0.000 Nucleated RBC % (auto) 0.0 Anion Gap Estim Creat Clear Calc Estimated GFR POC Glucose 65 Random Glucose Calcium Urine Color Yellow Urine Appearance Turbid Urine pH 6.5 Ur Specific [place] 1.010 Urine Protein 30 (1+) H Urine Glucose (UA) Negative Urine Ketones Negative Urine Blood Moderate (2+) H Urine Nitrite Positive H Ur Leukocyte Esterase Large (3+) H Urine RBC 11-20 H Urine WBC >50 Ur Squamous Epith Cells 3-5 Urine Bacteria 4+ Hyaline Casts 3-5 Urine Yeast Present 10/05/22 08:08 MCV MCH MCHC RDW Plt Count MPV Immature Gran % (Auto) Neut % (Auto) Lymph % (Auto) [place] % (Auto) Eos % (Auto) Baso % (Auto) Lymph # (Auto) [place] # (Auto) Eos # (Auto) Baso # (Auto) Abs Immat Gran (auto) Absolute Neuts (auto) Absolute Nucleated RBC Nucleated RBC % (auto) Anion Gap 12 Estim Creat Clear Calc 124.7 Estimated GFR > 60 POC Glucose Random Glucose 63 Calcium 8.8 Urine Color Urine Appearance Urine pH Ur Specific [place] Urine Protein Urine Glucose (UA) Urine Ketones Urine Blood Urine Nitrite Ur Leukocyte Esterase Urine RBC Urine WBC Ur Squamous Epith Cells Urine Bacteria Hyaline Casts Urine Yeast Assessment and Plan (1) Stage 4 decubitus ulcer: Status: Acute (2) UTI (urinary tract infection): Status: Acute Plan hospital d#[id number] 74yo M with DM2, HTN, HLD, chronic venous stasis dermatitis presented with mechanical fall, admitted for hypoxia due to PNA and now awaiting safe placement # dry cough - Covid/RSV/flu PCR, CXR negative - prn guaifenesin/DM #Positive UA -Sympmtoms resolved after roberts readjusted -UA 3+ leukocytes, positive nitrite, 2+ blood, 1+ protein, positive urinary sediment, 4+ bacteria -will treat empirically with cefuroxime 250 mg b.i.d. x5 days (initiated 10/05) -follow UC, BC # sacral decubitus ulcer - unstageable, necrotic 10cm x10 cm with 4 cm depth - frequent turning, air loss bed, continue wound care - s/p debridements 07/08, 07/17, 08/05 - s/p wound VAC placement 07/22 + removed 07/25 after it became soiled- no further role for VAC per Surgery - continue wet to dry dressings, periodic Surgery input # atrial flutter/fib - LVEF >70% - continue Toprol XL for rate control - continue AC with Eliquis # episode of SVT vs atrial tachycardia 07/26 - HR improved with IV Lopressor, finished loading dose of amiodarone and started on amiodarone 200 mg by mouth daily on 08/07, continue Toprol XL # acute blood loss anemia - resolved, was attributed to blood loss at site of decub ulcer, patient received 2 unit of packed RBC - continue ferrous sulfate b.i.d. - H/H stable, periodic check- today's stable # traumatic SAH - CT brain 06/26: New small areas of extra-axial hemorrhage adjacent to the left posterior parietal lobe, bilateral occipital lobes and in the occipital horns of both lateral ventricles, repeat CT 06/28 unchanged - seen by Neuro; AC was held for two weeks - no headache, no dizziness; no other complications # acute hypoxic respiratory failure due to PNA - resolved; finished 10d of ABX; back on room air # urinary retention - failed voiding trial x2; continue tamsulosin and finasteride; seen by urology, continue Roberts upon discharge; outpatient urology follow up # hyponatremia - resolved; s/p urea; cortisol, TSH WNL # mechanical fall - difficulty ambulating; awaiting SNF placement, PT has been working with him # generalized weakness - 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 but not clinically NPH per Neurology # incidental 1.3cm pancreatic lesions - may reflect adjacent pancreatic cysts, outpt MRI/MRCP # DM2 - glycemic control acceptable; continue basal-bolus insulin + MTF # HTN - stable blood pressures, continue metoprolol; losartan and hydralazine discontinued due to soft blood pressures # HLD - statin # bilateral eye dryness - clear tearing, no erythema or pain or vision change - added artificial tears drops # rash - Bendaryl cream, add hydrocortisone # VTE ppx: Eliquis # dispo: awaiting placement LTC In my clinical judgment, the patient requires continued inpatient hospitaliz ation for the following reasons: safe placement Time Spent With Patient Time: Total time managing care of this patient today ____ minutes. Quality Stroke Does the patient have a stroke diagnosis?: No VTE Prior VTE?: No VTE Risk Level:: Medical - moderate - high VTE Device Contraindication: Treatment Not Indicated VTE Drug Contraindication: N/A - Med Ordered
[2022-10-05 11:20] LABS: Glucose, Whole Blood 190 mg/dL (60-115)
[2022-10-05] MEDS: Insulin Lispro 100 UNIT/ML 3 ML VIAL SUBCUT ×3 (12:25→21:59)
[2022-10-05] MEDS: guaiFENesin 100 MG/5 ML LIQUID PO ×2 (15:27→22:19)
[2022-10-05 15:40] VITALS: BP 106/54; PULSE 54; RESP 20; TEMP 36.6; O2SAT 95
[2022-10-05 15:55] LABS: Glucose, Whole Blood 204 mg/dL (60-115)
[2022-10-05 19:52] VITALS: BP 103/51; PULSE 82; RESP 20; TEMP 36.9; O2SAT 95
[2022-10-05 20:23] LABS: Glucose, Whole Blood 258 mg/dL (60-115)
[2022-10-05] MEDS: Insulin Glargine,Hum.rec.anlog 100 UNIT/ML 10 ML VIAL SUBCUT (21:55)
[2022-10-05] MEDS: Acetaminophen 325 MG TABLET 650 MG PO (21:56)
[2022-10-05] MEDS: Throat Lozenge, Medicated LOZENGE 1 LOZENGE MUCOUS MEM (22:19)
[2022-10-06] MEDS: Throat Lozenge, Medicated LOZENGE 1 LOZENGE MUCOUS MEM ×2 (03:45→19:54)
[2022-10-06 03:49] VITALS: BP 124/62; PULSE 74; RESP 18; TEMP 36.2; O2SAT 97
[2022-10-06 08:00] VITALS: BP 131/62; PULSE 78; RESP 18; TEMP 36.4; O2SAT 99
[2022-10-06 08:06] LABS: Glucose, Whole Blood 112 mg/dL (60-115)
[2022-10-06] MEDS: Ferrous Sulfate 324 MG TABLET.DR PO ×2 (08:50→17:24)
[2022-10-06] MEDS: Metoprolol Succinate ER 100 MG TAB.ER.24H PO (08:50)
[2022-10-06] MEDS: Tamsulosin HCL 0.4 MG CAPSULE 0.8 MG PO (08:50)
[2022-10-06] MEDS: Finasteride 5 MG TABLET PO (08:50)
[2022-10-06] MEDS: Apixaban 5 MG TABLET PO ×2 (08:50→21:09)
[2022-10-06] MEDS: Amiodarone HCL 200 MG TABLET PO (08:50)
[2022-10-06] MEDS: metFORMIN HCl 850 MG TABLET PO ×2 (08:50→17:24)
[2022-10-06] MEDS: Hydrocortisone 1 % Cream 28.35 GM TUBE 1 APPL TOPICAL ×2 (08:50→21:11)
[2022-10-06] MEDS: Insulin Glargine,Hum.rec.anlog 100 UNIT/ML 10 ML VIAL 25 UNIT SUBCUT (08:55)
[2022-10-06] MEDS: guaiFENesin 100 MG/5 ML LIQUID PO (09:40)
[2022-10-06] MEDS: polyethylene glycoL 3350 17 GM POWD.PACK PO (09:52)
--- NOTE | 2022-10-06 10:22 | P.PNIM_ITS ---
Subjective Subjective Date of Service: 10/06/22 Interval History: Still with occassional cough. Nonproductive. No sob, chest pain. Afebrile. No other complaints Review of Systems Review of Systems: Yes all other systems are reviewed and are negative Physical Exam Vital Signs: Vital Signs: Last Vital Signs Temp 97.6 F 10/06/22 08:00 Pulse 78 10/06/22 08:00 Resp 18 10/06/22 08:00 BP 131/62 10/06/22 08:00 Pulse Ox 99 10/06/22 08:00 O2 Del Method 10/06/22 08:00 O2 Flow Rate 2 09/04/22 12:48 BMI result Body Mass Index 26.6 Constitutional - Awake and Alert, No apparent distress Eyes - PERRLA, EOMI Cardiovascular - S1S2, RRR, No edema Respiratory - Normal lung expansion, Normal respiratory effort, No respiratory distress, CTA bilaterally Gastrointestinal - NT / ND; +BS; No rebound or guarding Extremities - no calf tenderness bilaterally, no swelling Skin - Warm/Dry Neurological - Alert & oriented x3 Psychological - Appropriate affect Objective Data Active Medications Acetaminophen (Acetaminophen 325 Mg Tablet) 650 mg PO Q6H PRN PRN Reason: Pain, Mild (Pain Scale 1-3) Last Admin: 10/05/22 21:56 Dose: 650 mg Documented By: TOM Amiodarone HCl (Amiodarone Hcl 200 Mg Tablet) 200 mg PO DAILY [facility] Last Admin: 10/06/22 08:50 Dose: 200 mg Documented By: OSMEL Apixaban (Apixaban 5 Mg Tablet) 5 mg PO BID [facility] Last Admin: 10/06/22 08:50 Dose: 5 mg Documented By: OSMEL Artificial Tears (Artificial Tears 15 Ml Drops) 1 drop EYE-BOTH Q4H PRN PRN Reason: tearin Last Admin: 10/02/22 08:57 Dose: 1 drop Documented By: KHURRAM Benzocaine (Throat Lozenge, Medicated Lozenge) 1 lozenge MUCOUS MEM Q2H PRN PRN Reason: Sore Throat Last Admin: 10/06/22 03:45 Dose: 1 lozenge Documented By: TOM Cefuroxime Axetil (Cefuroxime Axetil 250 Mg Tablet) 250 mg PO Q12H [facility] Stop: 10/09/22 23:01 Last Admin: 10/05/22 22:01 Dose: 250 mg Documented By: TOM Dextrose (Dextrose 50 % 25 Gm/50 Ml Syringe) 25 gm IVPUSH Q15M PRN; Protocol PRN Reason: per Hypoglycemia Standing Ord. Ferrous Sulfate (Ferrous Sulfate 324 Mg Tablet.Dr) 324 mg PO BIDWM [facility] Last Admin: 10/06/22 08:50 Dose: 324 mg Documented By: OSMEL Finasteride (Finasteride 5 Mg Tablet) 5 mg PO DAILY [facility] Last Admin: 10/06/22 08:50 Dose: 5 mg Documented By: OSMEL Glucose (Glucose Gel 15 Gm Gel..Gram.) 15 gm PO Q15M PRN; Protocol PRN Reason: per Hypoglycemia Standing Ord. Guaifenesin (Guaifenesin 100 Mg/5 Ml Liquid) 5 ml PO Q6H PRN PRN Reason: Cough Last Admin: 10/06/22 09:40 Dose: 5 ml Documented By: OSMEL Guaifenesin/Dextromethorphan (Guaifenesin Dm 100/10/5 Ml 5 Ml Syrup) 5 ml PO Q4H PRN PRN Reason: coughiness Hydrocortisone (Hydrocortisone 1 % Cream 28.35 Gm Tube) 1 appl TOPICAL BID [facility]; Protocol Last Admin: 10/06/22 08:50 Dose: 1 appl Documented By: OSMEL Insulin Glargine (Insulin Glargine,Hum.Rec.Anlog 100 Unit/Ml 10 Ml Vial) 5 unit SUBCUT BEDTIME [facility] Last Admin: 10/05/22 21:55 Dose: 5 unit Documented By: TOM Insulin Glargine (Insulin Glargine,Hum.Rec.Anlog 100 Unit/Ml 10 Ml Vial) 25 unit SUBCUT DAILY@0730 [facility] Last Admin: 10/06/22 08:55 Dose: 25 unit Documented By: OSMEL Insulin Human Lispro (Insulin Lispro 100 Unit/Ml 3 Ml Vial) 0 unit SUBCUT QIDACHS [facility]; Protocol Last Admin: 10/06/22 08:41 Dose: Not Given Documented By: OSMEL Non-Admin Reason: No Insulin Coverage Metformin HCl (Metformin Hcl 850 Mg Tablet) 850 mg PO BIDWM [facility] Last Admin: 10/06/22 08:50 Dose: 850 mg Documented By: OSMEL Metoprolol Succinate (Metoprolol Succinate Er 100 Mg Tab.Er.24h) 100 mg PO DAILY [facility] Last Admin: 10/06/22 08:50 Dose: 100 mg Documented By: OSMEL Polyethylene Glycol (Polyethylene Glycol 3350 17 Gm Powd.Pack) 17 gm PO DAILY [facility] Last Admin: 10/06/22 09:52 Dose: 17 gm Documented By: OSMEL Sodium Hypochlorite (Sodium Hypochlorite 0.25% 473 Ml Solution) 1 appl TOPICAL BID [facility] Last Admin: 10/06/22 08:50 Dose: 1 appl Documented By: OSMEL Tamsulosin HCl (Tamsulosin Hcl 0.4 Mg Capsule) 0.8 mg PO DAILY [facility] Last Admin: 10/06/22 08:50 Dose: 0.8 mg Documented By: OSMEL Zinc Acetate/Diphenhydramine (Diphenhydramine Hcl 2 % Cream 28 Gm Tube) 1 appl TOPICAL QID PRN; Protocol PRN Reason: itching Labs 10/05/22 08:08 10/05/22 08:08 Labs: Laboratory Results - last 24 hr 10/05/22 10/05/22 10/05/22 11:11 15:52 20:09 POC Glucose 190 H 204 H 258 H 10/06/22 07:16 POC Glucose 112 Microbiology Microbiology Results: Microbiology 10/05/22 08:10 Blood Culture - Preliminary Blood - Venous No growth after 24 hours. 10/05/22 08:08 Blood Culture - Preliminary Blood - Venous No growth after 24 hours. Assessment and Plan (1) Stage 4 decubitus ulcer: Status: Acute (2) UTI (urinary tract infection): Status: Acute Plan hospital d#112 74yo M with DM2, HTN, HLD, chronic venous stasis dermatitis presented with mechanical fall, admitted for hypoxia due to PNA and now awaiting safe placement # dry cough - Covid/RSV/flu PCR, CXR negative - prn guaifenesin/DM #Positive UA -Sympmtoms resolved after roberts readjusted -UA 3+ leukocytes, positive nitrite, 2+ blood, 1+ protein, positive urinary sediment, 4+ bacteria -will treat empirically with cefuroxime 250 mg b.i.d. x5 days (initiated 10/05) -follow UC, BC # sacral decubitus ulcer - unstageable, necrotic 10cm x10 cm with 4 cm depth - frequent turning, air loss bed, continue wound care - s/p debridements 07/08, 07/17, 08/05 - s/p wound VAC placement 07/22 + removed 07/25 after it became soiled- no further role for VAC per Surgery - continue wet to dry dressings, periodic Surgery input # atrial flutter/fib - LVEF >70% - continue Toprol XL for rate control - continue AC with Eliquis # episode of SVT vs atrial tachycardia 07/26 - HR improved with IV Lopressor, finished loading dose of amiodarone and started on amiodarone 200 mg by mouth daily on 08/07, continue Toprol XL # acute blood loss anemia - resolved, was attributed to blood loss at site of decub ulcer, patient received 2 unit of packed RBC - continue ferrous sulfate b.i.d. - H/H stable, periodic check- today's stable # traumatic SAH - CT brain 06/26: New small areas of extra-axial hemorrhage adjacent to the left posterior parietal lobe, bilateral occipital lobes and in the occipital horns of both lateral ventricles, repeat CT 06/28 unchanged - seen by Neuro; AC was held for two weeks - no headache, no dizziness; no other complications # acute hypoxic respiratory failure due to PNA - resolved; finished 10d of ABX; back on room air # urinary retention - failed voiding trial x2; continue tamsulosin and finasteride; seen by urology, continue Roberts upon discharge; outpatient urology follow up # hyponatremia - resolved; s/p urea; cortisol, TSH WNL # mechanical fall - difficulty ambulating; awaiting SNF placement, PT has been working with him # generalized weakness - 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 but not clinically NPH per Neurology # incidental 1.3cm pancreatic lesions - may reflect adjacent pancreatic cysts, outpt MRI/MRCP # DM2 - glycemic control acceptable; continue basal-bolus insulin + MTF # HTN - stable blood pressures, continue metoprolol; losartan and hydralazine discontinued due to soft blood pressures # HLD - statin # bilateral eye dryness - clear tearing, no erythema or pain or vision change - added artificial tears drops # rash - Bendaryl cream, add hydrocortisone # VTE ppx: Eliquis # dispo: awaiting placement LTC In my clinical judgment, the patient requires continued inpatient hospitalization for the following reasons: safe placement Time Spent With Patient Time: Total time managing care of this patient today ____ minutes. Quality Stroke Does the patient have a stroke diagnosis?: No VTE Prior VTE?: No VTE Risk Level:: Medical - moderate - high VTE Device Contraindication: Treatment Not Indicated VTE Drug Contraindication: N/A - Med Ordered
[2022-10-06 11:34] LABS: Glucose, Whole Blood 218 mg/dL (60-115)
[2022-10-06] MEDS: Insulin Lispro 100 UNIT/ML 3 ML VIAL SUBCUT ×3 (11:46→21:08)
[2022-10-06 16:00] VITALS: BP 127/72; PULSE 85; RESP 18; TEMP 37.1; O2SAT 98
[2022-10-06 17:12] LABS: Glucose, Whole Blood 301 mg/dL (60-115)
[2022-10-06] MEDS: Acetaminophen 325 MG TABLET 650 MG PO (19:54)
[2022-10-06 20:00] VITALS: BP 127/68; PULSE 68; RESP 18; TEMP 36.4; O2SAT 98
[2022-10-06 21:00] LABS: Glucose, Whole Blood 193 mg/dL (60-115)
[2022-10-06] MEDS: Insulin Glargine,Hum.rec.anlog 100 UNIT/ML 10 ML VIAL SUBCUT (21:08)
[2022-10-06] MEDS: guaiFENesin DM 100/10/5 ML 5 ML SYRUP PO (23:02)
[2022-10-07 03:19] VITALS: BP 122/60; PULSE 78; RESP 16; TEMP 36.2; O2SAT 98
[2022-10-07 07:46] LABS: Glucose, Whole Blood 156 mg/dL (60-115)
[2022-10-07 07:54] VITALS: BP 121/58; PULSE 81; RESP 18; TEMP 36.7; O2SAT 98
[2022-10-07] MEDS: Tamsulosin HCL 0.4 MG CAPSULE 0.8 MG PO (08:27)
[2022-10-07] MEDS: Amiodarone HCL 200 MG TABLET PO (08:28)
[2022-10-07] MEDS: metFORMIN HCl 850 MG TABLET PO ×2 (08:28→17:07)
[2022-10-07] MEDS: polyethylene glycoL 3350 17 GM POWD.PACK PO (08:28)
[2022-10-07] MEDS: Finasteride 5 MG TABLET PO (08:28)
[2022-10-07] MEDS: Apixaban 5 MG TABLET PO ×2 (08:28→20:10)
[2022-10-07] MEDS: Ferrous Sulfate 324 MG TABLET.DR PO ×2 (08:28→17:02)
[2022-10-07] MEDS: Metoprolol Succinate ER 100 MG TAB.ER.24H PO (08:28)
[2022-10-07] MEDS: Hydrocortisone 1 % Cream 28.35 GM TUBE 1 APPL TOPICAL ×2 (08:33→20:10)
[2022-10-07] MEDS: Insulin Glargine,Hum.rec.anlog 100 UNIT/ML 10 ML VIAL 25 UNIT SUBCUT (08:34)
[2022-10-07] MEDS: Insulin Lispro 100 UNIT/ML 3 ML VIAL SUBCUT ×4 (08:34→21:21)
[2022-10-07] MEDS: guaiFENesin DM 100/10/5 ML 5 ML SYRUP PO ×2 (11:41→21:21)
[2022-10-07] MEDS: Throat Lozenge, Medicated LOZENGE 1 LOZENGE MUCOUS MEM (11:41)
[2022-10-07 12:12] LABS: Glucose, Whole Blood 189 mg/dL (60-115)
--- NOTE | 2022-10-07 12:14 | P.PNIM_ITS ---
Subjective Subjective Date of Service: 10/07/22 Interval History: no acute issues overnight. Remains alert and oriented awaiting placement Review of Systems denies chest pain Denies shortness of breath Denies nausea vomiting diarrhea denies fever chills Physical Exam Vital Signs: Vital Signs: Last Vital Signs Temp 98.0 F 10/07/22 07:54 Pulse 81 10/07/22 07:54 Resp 18 10/07/22 07:54 BP 121/58 L 10/07/22 07:54 Pulse Ox 98 10/07/22 07:54 O2 Del Method 10/07/22 07:54 O2 Flow Rate 2 09/04/22 12:48 BMI result Body Mass Index 26.6 Const: Other: Awake alert/clear oriented x3 Resp: Other: Clear to auscultation bilaterally Cardio: Other: No S4; positive S1-S2; no S3 murmurs rubs or gallops Skin: Other: coccyx ulcer itchy rash, upper back, flat, dry skin General skin exam: no rashes or lesions noted and ecchymosis Extrem: Other: No edema bilaterally Objective Data Active Medications Acetaminophen (Acetaminophen 325 Mg Tablet) 650 mg PO Q6H PRN PRN Reason: Pain, Mild (Pain Scale 1-3) Last Admin: 10/06/22 19:54 Dose: 650 mg Documented By: RIC Amiodarone HCl (Amiodarone Hcl 200 Mg Tablet) 200 mg PO DAILY [facility] Last Admin: 10/07/22 08:28 Dose: 200 mg Documented By: SUE Apixaban (Apixaban 5 Mg Tablet) 5 mg PO BID [facility] Last Admin: 10/07/22 08:28 Dose: 5 mg Documented By: SUE Artificial Tears (Artificial Tears 15 Ml Drops) 1 drop EYE-BOTH Q4H PRN PRN Reason: tearin Last Admin: 10/02/22 08:57 Dose: 1 drop Documented By: KHURRAM Benzocaine (Throat Lozenge, Medicated Lozenge) 1 lozenge MUCOUS MEM Q2H PRN PRN Reason: Sore Throat Last Admin: 10/07/22 11:41 Dose: 1 lozenge Documented By: SUE Cefuroxime Axetil (Cefuroxime Axetil 250 Mg Tablet) 250 mg PO Q12H [facility] Stop: 10/09/22 23:01 Last Admin: 10/07/22 11:41 Dose: 250 mg Documented By: SUE Dextrose (Dextrose 50 % 25 Gm/50 Ml Syringe) 25 gm IVPUSH Q15M PRN; Protocol PRN Reason: per Hypoglycemia Standing Ord. Ferrous Sulfate (Ferrous Sulfate 324 Mg Tablet.Dr) 324 mg PO BIDWM [facility] Last Admin: 10/07/22 08:28 Dose: 324 mg Documented By: SUE Finasteride (Finasteride 5 Mg Tablet) 5 mg PO DAILY [facility] Last Admin: 10/07/22 08:28 Dose: 5 mg Documented By: SUE Glucose (Glucose Gel 15 Gm Gel..Gram.) 15 gm PO Q15M PRN; Protocol PRN Reason: per Hypoglycemia Standing Ord. Guaifenesin (Guaifenesin 100 Mg/5 Ml Liquid) 5 ml PO Q6H PRN PRN Reason: Cough Last Admin: 10/06/22 09:40 Dose: 5 ml Documented By: OSMEL Guaifenesin/Dextromethorphan (Guaifenesin Dm 100/10/5 Ml 5 Ml Syrup) 5 ml PO Q4H PRN PRN Reason: coughiness Last Admin: 10/07/22 11:41 Dose: 5 ml Documented By: SUE Hydrocortisone (Hydrocortisone 1 % Cream 28.35 Gm Tube) 1 appl TOPICAL BID [facility]; Protocol Last Admin: 10/07/22 08:33 Dose: 1 appl Documented By: SUE Insulin Glargine (Insulin Glargine,Hum.Rec.Anlog 100 Unit/Ml 10 Ml Vial) 5 unit SUBCUT BEDTIME [facility] Last Admin: 10/06/22 21:08 Dose: 5 unit Documented By: RIC Insulin Glargine (Insulin Glargine,Hum.Rec.Anlog 100 Unit/Ml 10 Ml Vial) 25 unit SUBCUT DAILY@0730 [facility] Last Admin: 10/07/22 08:34 Dose: 25 unit Documented By: SUE Comments: no barcode in pixis Insulin Human Lispro (Insulin Lispro 100 Unit/Ml 3 Ml Vial) 0 unit SUBCUT QIDA [facility]; Protocol Last Admin: 10/07/22 08:34 Dose: 2 unit Documented By: SUE Metformin HCl (Metformin Hcl 850 Mg Tablet) 850 mg PO BIDWM [facility] Last Admin: 10/07/22 08:28 Dose: 850 mg Documented By: SUE Metoprolol Succinate (Metoprolol Succinate Er 100 Mg Tab.Er.24h) 100 mg PO DAILY [facility] Last Admin: 10/07/22 08:28 Dose: 100 mg Documented By: SUE Polyethylene Glycol (Polyethylene Glycol 3350 17 Gm Powd.Pack) 17 gm PO DAILY [facility] Last Admin: 10/07/22 08:28 Dose: 17 gm Documented By: SUE Sodium Hypochlorite (Sodium Hypochlorite 0.25% 473 Ml Solution) 1 appl TOPICAL BID [facility] Last Admin: 10/07/22 08:36 Dose: 1 appl Documented By: SUE Tamsulosin HCl (Tamsulosin Hcl 0.4 Mg Capsule) 0.8 mg PO DAILY [facility] Last Admin: 10/07/22 08:27 Dose: 0.8 mg Documented By: SUE Zinc Acetate/Diphenhydramine (Diphenhydramine Hcl 2 % Cream 28 Gm Tube) 1 appl TOPICAL QID PRN; Protocol PRN Reason: itching Labs 10/05/22 08:08 10/05/22 08:08 Labs: Laboratory Results - last 24 hr 10/06/22 10/06/22 10/07/22 16:48 20:54 07:04 POC Glucose 301 H 193 H 156 H 10/07/22 12:04 POC Glucose 189 H Microbiology Microbiology Results: Microbiology 10/05/22 06:00 Urine Culture - Preliminary Urine clean catch - Urine schmidt top Gram negative deanne 10/05/22 08:10 Blood Culture - Preliminary Blood - Venous No growth after 48 hours. 10/05/22 08:08 Blood Culture - Preliminary Blood - Venous No growth after 48 hours. Assessment and Plan (1) UTI (urinary tract infection): Status: Acute Plan 74yo M with DM2, HTN, HLD, chronic venous stasis dermatitis presented with mechanical fall, admitted for hypoxia due to PNA awaiting safe placement. Much clearer thought process today. GNR urine continue Ceftin pending ID Sacral decubitus ulcer.? Unstageable, necrotic 10cm x10 cm with 4 cm depth frequent turn,air loss? bed ,continue wound care Improving s/p debridements 07/08, 07/17, 1/2 s/p wound vac placement 07/22/22 - removed 07/25 after it became soiled continue wet to dry dressings , being followed by General surgery- d/w surgery - wound vac not helping and would avoid Atrial flutter/fib, rate stable LVEF >70% continue toprol xl and Eliquis Episode of SVT vs atrial tachycardia 07/26 HR improved with IV Lopressor, finish loading dose of amiodarone and started on amiodarone 200 mg by mouth daily on August 07, continue Toprol XL Acute blood loss anemia. Resolved s/p blood loss at site of decub ulcer patient received 2 unit of packed RBC continue ferrous sulfate b.i.d. H/H stable CBC check periodically Traumatic SAH CT brain 06/26 ? New small areas of extra-axial hemorrhage adjacent to the left posterior parietal lobe, bilateral occipital lobes and in the occipital horns of both lateral ventricles, repeat CT 06/28 unchanged seen by neuro - AC was held for two weeks no headache, no dizziness No other complications Acute hypoxic respiratory failure due to PNA. Resolved finished 10d of ABX back on room air Urinary retention failed voiding trial x2 continue tamsulosin and finasteride seen by urology, continue roberts upon discharge - outpatient urology follow up Hyponatremia resolved s/p urea cortisol, TSH wnl Mechanical fall difficulty ambulating; awaiting SNF placement, PT has been working with him I do not think he will walk again generalized weakness 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 but not clinically NPH per Neurology incidental 1.3cm pancreatic lesions may reflect adjacent pancreatic cysts outpt MRI/MRCP DM2? : fs acceptable continue Lantus, SSI adjusted . HTN Stable blood pressures, continue metoprolol losartan and hydralazine discontinued due to soft blood pressures HLD statin b/l eye dryness (clear tearing,no erythema or pain or vision change) added artifical tears drops rash bendaryl cream helping cough 2/, CXR no pna eliquis Full code patient remains hemodynamically stable awaiting placement Time Spent With Patient Time: Total time managing care of this patient today ____ minutes. Quality Stroke Does the patient have a stroke diagnosis?: No VTE Prior VTE?: No VTE Risk Level:: Medical - moderate - high VTE Device Contraindication: Treatment Not Indicated VTE Drug Contraindication: N/A - Med Ordered
[2022-10-07 15:02] VITALS: BP 125/59; PULSE 84; RESP 16; TEMP 36.9; O2SAT 98
[2022-10-07 16:42] LABS: Glucose, Whole Blood 229 mg/dL (60-115)
[2022-10-07 20:00] VITALS: BP 125/60; PULSE 85; RESP 17; TEMP 36.7; O2SAT 96
[2022-10-07 21:06] LABS: Glucose, Whole Blood 191 mg/dL (60-115)
[2022-10-08] MEDS: Acetaminophen 325 MG TABLET 650 MG PO ×3 (01:55→20:56)
[2022-10-08 03:57] VITALS: BP 130/62; PULSE 75; RESP 17; TEMP 36.6; O2SAT 96
[2022-10-08 07:08] VITALS: BP 142/63; PULSE 78; RESP 18; TEMP 36.5; O2SAT 97
[2022-10-08 07:33] LABS: Glucose, Whole Blood 106 mg/dL (60-115)
[2022-10-08] MEDS: Insulin Glargine,Hum.rec.anlog 100 UNIT/ML 10 ML VIAL 25 UNIT SUBCUT (07:39)
[2022-10-08] MEDS: metFORMIN HCl 850 MG TABLET PO ×2 (07:43→17:05)
[2022-10-08] MEDS: Ferrous Sulfate 324 MG TABLET.DR PO ×2 (07:43→17:05)
[2022-10-08] MEDS: Metoprolol Succinate ER 100 MG TAB.ER.24H PO (10:18)
[2022-10-08] MEDS: Finasteride 5 MG TABLET PO (10:18)
[2022-10-08] MEDS: polyethylene glycoL 3350 17 GM POWD.PACK PO (10:19)
[2022-10-08] MEDS: Amiodarone HCL 200 MG TABLET PO (10:19)
[2022-10-08] MEDS: Hydrocortisone 1 % Cream 28.35 GM TUBE 1 APPL TOPICAL ×2 (10:19→21:09)
[2022-10-08] MEDS: Tamsulosin HCL 0.4 MG CAPSULE 0.8 MG PO (10:19)
[2022-10-08] MEDS: Apixaban 5 MG TABLET PO ×2 (10:19→20:56)
[2022-10-08 11:34] LABS: Glucose, Whole Blood 236 mg/dL (60-115)
[2022-10-08] MEDS: Insulin Lispro 100 UNIT/ML 3 ML VIAL SUBCUT ×2 (11:45→17:05)
--- NOTE | 2022-10-08 13:28 | HO.PM.IMPN ---
Subjective Subjective Date of Service: 10/08/22 Interval History: no acute issues overnight Review of Systems denies chest pain Denies shortness of breath Denies nausea vomiting diarrhea denies fever chills Physical Exam Vital Signs: Vital Signs: Last Vital Signs Temp 97.7 F 10/08/22 07:08 Pulse 78 10/08/22 07:08 Resp 18 10/08/22 07:08 BP 142/63 H 10/08/22 07:08 Pulse Ox 97 10/08/22 07:08 O2 Del Method 10/08/22 07:08 O2 Flow Rate 2 09/04/22 12:48 BMI result Body Mass Index 26.6 Const: Other: Awake alert/clear oriented x3 Resp: Other: Clear to auscultation bilaterally Cardio: Other: No S4; positive S1-S2; no S3 murmurs rubs or gallops Skin: Other: coccyx ulcer itchy rash, upper back, flat, dry skin General skin exam: no rashes or lesions noted and ecchymosis Extrem: Other: No edema bilaterally Objective Data Active Medications Acetaminophen (Acetaminophen 325 Mg Tablet) 650 mg PO Q6H PRN PRN Reason: Pain, Mild (Pain Scale 1-3) Last Admin: 10/08/22 10:58 Dose: 650 mg Documented By: MADISON Amiodarone HCl (Amiodarone Hcl 200 Mg Tablet) 200 mg PO DAILY [facility] Last Admin: 10/08/22 10:19 Dose: 200 mg Documented By: THEODORA Apixaban (Apixaban 5 Mg Tablet) 5 mg PO BID [facility] Last Admin: 10/08/22 10:19 Dose: 5 mg Documented By: THEODORA Artificial Tears (Artificial Tears 15 Ml Drops) 1 drop EYE-BOTH Q4H PRN PRN Reason: tearin Last Admin: 10/02/22 08:57 Dose: 1 drop Documented By: KHURRAM Benzocaine (Throat Lozenge, Medicated Lozenge) 1 lozenge MUCOUS MEM Q2H PRN PRN Reason: Sore Throat Last Admin: 10/07/22 11:41 Dose: 1 lozenge Documented By: SUE Cefuroxime Axetil (Cefuroxime Axetil 250 Mg Tablet) 250 mg PO Q12H [facility] Stop: 10/09/22 23:01 Last Admin: 10/08/22 10:18 Dose: 250 mg Documented By: THEODORA Ferrous Sulfate (Ferrous Sulfate 324 Mg Tablet.Dr) 324 mg PO BIDWM [facility] Last Admin: 10/08/22 07:43 Dose: 324 mg Documented By: MADISON Finasteride (Finasteride 5 Mg Tablet) 5 mg PO DAILY [facility] Last Admin: 10/08/22 10:18 Dose: 5 mg Documented By: THEODORA Glucose (Glucose Gel 15 Gm Gel..Gram.) 15 gm PO Q15M PRN; Protocol PRN Reason: per Hypoglycemia Standing Ord. Guaifenesin (Guaifenesin 100 Mg/5 Ml Liquid) 5 ml PO Q6H PRN PRN Reason: Cough Last Admin: 10/06/22 09:40 Dose: 5 ml Documented By: OSMEL Guaifenesin/Dextromethorphan (Guaifenesin Dm 100/10/5 Ml 5 Ml Syrup) 5 ml PO Q4H PRN PRN Reason: coughiness Last Admin: 10/07/22 21:21 Dose: 5 ml Documented By: ALLY Hydrocortisone (Hydrocortisone 1 % Cream 28.35 Gm Tube) 1 appl TOPICAL BID [facility]; Protocol Last Admin: 10/08/22 10:19 Dose: 1 appl Documented By: THEODORA Dextrose (D10) 250 mls @ 750 mls/hr IV Q15M PRN; Protocol PRN Reason: per Hypoglycemia Standing Ord. Insulin Glargine (Insulin Glargine,Hum.Rec.Anlog 100 Unit/Ml 10 Ml Vial) 25 unit SUBCUT DAILY@0730 [facility] Last Admin: 10/08/22 07:39 Dose: 25 unit Documented By: MADISON Insulin Human Lispro (Insulin Lispro 100 Unit/Ml 3 Ml Vial) 0 unit SUBCUT QIDACHS [facility]; Protocol Last Admin: 10/08/22 11:45 Dose: 4 unit Documented By: MADISON Metformin HCl (Metformin Hcl 850 Mg Tablet) 850 mg PO BIDWM [facility] Last Admin: 10/08/22 07:43 Dose: 850 mg Documented By: MADISON Metoprolol Succinate (Metoprolol Succinate Er 100 Mg Tab.Er.24h) 100 mg PO DAILY [facility] Last Admin: 10/08/22 10:18 Dose: 100 mg Documented By: THEODORA Polyethylene Glycol (Polyethylene Glycol 3350 17 Gm Powd.Pack) 17 gm PO DAILY [facility] Last Admin: 10/08/22 10:19 Dose: 17 gm Documented By: THEODORA Sodium Hypochlorite (Sodium Hypochlorite 0.25% 473 Ml Solution) 1 appl TOPICAL BID [facility] Last Admin: 10/08/22 10:20 Dose: 1 appl Documented By: THEODORA Tamsulosin HCl (Tamsulosin Hcl 0.4 Mg Capsule) 0.8 mg PO DAILY [facility] Last Admin: 10/08/22 10:19 Dose: 0.8 mg Documented By: THEODORA Zinc Acetate/Diphenhydramine (Diphenhydramine Hcl 2 % Cream 28 Gm Tube) 1 appl TOPICAL QID PRN; Protocol PRN Reason: itching Labs 10/05/22 08:08 10/05/22 08:08 Labs: Laboratory Results - last 24 hr 10/07/22 10/07/22 10/08/22 16:22 20:43 07:11 POC Glucose 229 H 191 H 106 10/08/22 11:30 POC Glucose 236 H Microbiology Microbiology Results: Microbiology 10/05/22 06:00 Urine Culture - Preliminary Urine clean catch - Urine schmidt top Enterobacter cloacae complex Enterococcus/Streptococcus sp 10/05/22 08:10 Blood Culture - Preliminary Blood - Venous No growth after 48 hours. 10/05/22 08:08 Blood Culture - Preliminary Blood - Venous No growth after 48 hours. Assessment and Plan (1) Stage 4 decubitus ulcer: Status: Acute Plan 74yo M with DM2, HTN, HLD, chronic venous stasis dermatitis presented with mechanical fall, admitted for hypoxia due to PNA awaiting safe placement. Much clearer thought process today. GNR urine continue Ceftin pending ID Sacral decubitus ulcer.? Unstageable, necrotic 10cm x10 cm with 4 cm depth frequent turn,air loss? bed ,continue wound care Improving s/p debridements 07/08, 07/17, 1/2 s/p wound vac placement 07/22/22 - removed 07/25 after it became soiled continue wet to dry dressings , being followed by General surgery- d/w surgery - wound vac not helping and would avoid Atrial flutter/fib, rate stable LVEF >70% continue toprol xl and Eliquis Episode of SVT vs atrial tachycardia 07/26 HR improved with IV Lopressor, finish loading dose of amiodarone and started on amiodarone 200 mg by mouth daily on August 07, continue Toprol XL Acute blood loss anemia. Resolved s/p blood loss at site of decub ulcer patient received 2 unit of packed RBC continue ferrous sulfate b.i.d. H/H stable CBC check periodically Traumatic SAH CT brain 06/26 ? New small areas of extra-axial hemorrhage adjacent to the left posterior parietal lobe, bilateral occipital lobes and in the occipital horns of both lateral ventricles, repeat CT 06/28 unchanged seen by neuro - AC was held for two weeks no headache, no dizziness No other complications Acute hypoxic respiratory failure due to PNA. Resolved finished 10d of ABX back on room air Urinary retention failed voiding trial x2 continue tamsulosin and finasteride seen by urology, continue roberts upon discharge - outpatient urology follow up Hyponatremia resolved s/p urea cortisol, TSH wnl Mechanical fall difficulty ambulating; awaiting SNF placement, PT has been working with him I do not think he will walk again generalized weakness 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 but not clinically NPH per Neurology incidental 1.3cm pancreatic lesions may reflect adjacent pancreatic cysts outpt MRI/MRCP DM2? : fs acceptable continue Lantus, SSI adjusted . HTN Stable blood pressures, continue metoprolol losartan and hydralazine discontinued due to soft blood pressures HLD statin b/l eye dryness (clear tearing,no erythema or pain or vision change) added artifical tears drops rash bendaryl cream helping cough /, CXR no pna eliquis Full code patient remains hemodynamically stable awaiting placement Time Spent With Patient Time: Total time managing care of this patient today ____ minutes. Quality Stroke Does the patient have a stroke diagnosis?: No VTE Prior VTE?: No VTE Risk Level:: Medical - moderate - high VTE Device Contraindication: Treatment Not Indicated VTE Drug Contraindication: N/A - Med Ordered
[2022-10-08 15:53] VITALS: BP 127/58; PULSE 75; RESP 17; TEMP 36.5; O2SAT 96
[2022-10-08 16:24] LABS: Glucose, Whole Blood 171 mg/dL (60-115)
[2022-10-08] MEDS: guaiFENesin DM 100/10/5 ML 5 ML SYRUP PO (17:56)
[2022-10-08 20:00] VITALS: BP 107/53; PULSE 79; RESP 17; TEMP 36.6; O2SAT 95
[2022-10-08 20:35] LABS: Glucose, Whole Blood 127 mg/dL (60-115)
[2022-10-08] MEDS: guaiFENesin 100 MG/5 ML LIQUID PO (20:56)
[2022-10-09] MEDS: Acetaminophen 325 MG TABLET 650 MG PO ×3 (03:06→20:14)
[2022-10-09] MEDS: Throat Lozenge, Medicated LOZENGE 1 LOZENGE MUCOUS MEM ×2 (03:06→15:37)
[2022-10-09 03:09] VITALS: BP 132/64; PULSE 77; RESP 18; TEMP 36.1; O2SAT 98
[2022-10-09 07:17] LABS: Glucose, Whole Blood 84 mg/dL (60-115)
[2022-10-09 08:00] VITALS: BP 120/59; PULSE 70; RESP 15; TEMP 36.7; O2SAT 98
[2022-10-09] MEDS: polyethylene glycoL 3350 17 GM POWD.PACK PO (08:47)
[2022-10-09] MEDS: Insulin Glargine,Hum.rec.anlog 100 UNIT/ML 10 ML VIAL 25 UNIT SUBCUT (08:47)
[2022-10-09] MEDS: Finasteride 5 MG TABLET PO (08:48)
[2022-10-09] MEDS: Tamsulosin HCL 0.4 MG CAPSULE 0.8 MG PO (08:48)
[2022-10-09] MEDS: Ferrous Sulfate 324 MG TABLET.DR PO ×2 (08:49→17:13)
[2022-10-09] MEDS: Amiodarone HCL 200 MG TABLET PO (08:49)
[2022-10-09] MEDS: Apixaban 5 MG TABLET PO ×2 (08:49→20:14)
[2022-10-09] MEDS: metFORMIN HCl 850 MG TABLET PO ×2 (08:49→17:13)
[2022-10-09] MEDS: Metoprolol Succinate ER 100 MG TAB.ER.24H PO (08:49)
[2022-10-09] MEDS: guaiFENesin 100 MG/5 ML LIQUID PO ×3 (09:57→20:13)
--- NOTE | 2022-10-09 11:16 | HO.PM.IMPN ---
Subjective Subjective Date of Service: 10/09/22 Interval History: no acute issues overnight Review of Systems denies chest pain Denies shortness of breath Denies nausea vomiting diarrhea Physical Exam Vital Signs: Vital Signs: Last Vital Signs Temp 98.1 F 10/09/22 08:00 Pulse 70 10/09/22 08:00 Resp 15 10/09/22 08:00 BP 120/59 L 10/09/22 08:00 Pulse Ox 98 10/09/22 08:00 O2 Del Method 10/09/22 08:00 O2 Flow Rate 2 09/04/22 12:48 BMI result Body Mass Index 26.6 Const: Other: awake alert no acute distress Resp: Other: clear to auscultation bilaterally no rales rhonchi or wheezes Cardio: Other: soft nontender nondistended normoactive bowel sounds GI: Other: soft nontender nondistended normoactive bowel sounds Extrem: Other: no edema bilaterally Objective Data Active Medications Acetaminophen (Acetaminophen 325 Mg Tablet) 650 mg PO Q6H PRN PRN Reason: Pain, Mild (Pain Scale 1-3) Last Admin: 10/09/22 03:06 Dose: 650 mg Documented By: HCARLI Amiodarone HCl (Amiodarone Hcl 200 Mg Tablet) 200 mg PO DAILY [facility] Last Admin: 10/09/22 08:49 Dose: 200 mg Documented By: KHURRAM Apixaban (Apixaban 5 Mg Tablet) 5 mg PO BID [facility] Last Admin: 10/09/22 08:49 Dose: 5 mg Documented By: KHURRAM Artificial Tears (Artificial Tears 15 Ml Drops) 1 drop EYE-BOTH Q4H PRN PRN Reason: tearin Last Admin: 10/02/22 08:57 Dose: 1 drop Documented By: KHURRAM Benzocaine (Throat Lozenge, Medicated Lozenge) 1 lozenge MUCOUS MEM Q2H PRN PRN Reason: Sore Throat Last Admin: 10/09/22 03:06 Dose: 1 lozenge Documented By: CHARLI Cefuroxime Axetil (Cefuroxime Axetil 250 Mg Tablet) 250 mg PO Q12H [facility] Stop: 10/09/22 23:01 Last Admin: 10/09/22 10:53 Dose: 250 mg Documented By: KHURRAM Ferrous Sulfate (Ferrous Sulfate 324 Mg Tablet.) 324 mg PO BIDWM [facility] Last Admin: 10/09/22 08:49 Dose: 324 mg Documented By: KHURRAM Finasteride (Finasteride 5 Mg Tablet) 5 mg PO DAILY [facility] Last Admin: 10/09/22 08:48 Dose: 5 mg Documented By: KHURRAM Glucose (Glucose Gel 15 Gm Gel..Gram.) 15 gm PO Q15M PRN; Protocol PRN Reason: per Hypoglycemia Standing Ord. Guaifenesin (Guaifenesin 100 Mg/5 Ml Liquid) 5 ml PO Q6H PRN PRN Reason: Cough Last Admin: 10/09/22 09:57 Dose: 5 ml Documented By: KHURRAM Hydrocortisone (Hydrocortisone 1 % Cream 28.35 Gm Tube) 1 appl TOPICAL BID [facility]; Protocol Last Admin: 10/08/22 21:09 Dose: 1 appl Documented By: CHARLI Dextrose (D10) 250 mls @ 750 mls/hr IV Q15M PRN; Protocol PRN Reason: per Hypoglycemia Standing Ord. Insulin Glargine (Insulin Glargine,Hum.Rec.Anlog 100 Unit/Ml 10 Ml Vial) 25 unit SUBCUT DAILY@0730 [facility] Last Admin: 10/09/22 08:47 Dose: 25 unit Documented By: KHRURAM Insulin Human Lispro (Insulin Lispro 100 Unit/Ml 3 Ml Vial) 0 unit SUBCUT QIDACHS [facility]; Protocol Last Admin: 10/09/22 08:48 Dose: Not Given Documented By: KHURRAM Non-Admin Reason: See Note Comments: Blood sugar 84 Metformin HCl (Metformin Hcl 850 Mg Tablet) 850 mg PO BIDWM [facility] Last Admin: 10/09/22 08:49 Dose: 850 mg Documented By: KHURRAM Metoprolol Succinate (Metoprolol Succinate Er 100 Mg Tab.Er.24h) 100 mg PO DAILY [facility] Last Admin: 10/09/22 08:49 Dose: 100 mg Documented By: KHURRAM Polyethylene Glycol (Polyethylene Glycol 3350 17 Gm Powd.Pack) 17 gm PO DAILY [facility] Last Admin: 10/09/22 08:47 Dose: 17 gm Documented By: KHURRAM Sodium Hypochlorite (Sodium Hypochlorite 0.25% 473 Ml Solution) 1 appl TOPICAL BID [facility] Last Admin: 10/08/22 21:08 Dose: 1 appl Documented By: KENNEDYORALB Tamsulosin HCl (Tamsulosin Hcl 0.4 Mg Capsule) 0.8 mg PO DAILY [facility] Last Admin: 10/09/22 08:48 Dose: 0.8 mg Documented By: KHURRAM Zinc Acetate/Diphenhydramine (Diphenhydramine Hcl 2 % Cream 28 Gm Tube) 1 appl TOPICAL QID PRN; Protocol PRN Reason: itching Labs 10/05/22 08:08 10/05/22 08:08 Labs: Laboratory Results - last 24 hr 10/08/22 10/08/22 10/08/22 11:30 16:19 20:32 POC Glucose 236 H 171 H 127 H 10/09/22 07:11 POC Glucose 84 Microbiology Microbiology Results: Microbiology 10/05/22 06:00 Urine Culture - Preliminary Urine clean catch - Urine schmidt top Enterobacter cloacae complex Enterococcus faecalis Assessment and Plan (1) Stage 4 decubitus ulcer: Status: Acute Assessment and Plan: 74yo M with DM2, HTN, HLD, chronic venous stasis dermatitis presented with mechanical fall, admitted for hypoxia due to PNA? awaiting safe placement.? Much clearer thought process today. GNR urine continue Ceftin pending ID Sacral decubitus ulcer.? Unstageable, necrotic 10cm x10 cm with 4 cm depth frequent turn,air loss? bed ,continue wound care Improving s/p debridements 07/08, 07/17, 1/2 s/p wound vac placement 07/22/22 - removed 07/25 after it became soiled continue wet to dry dressings , being followed by General surgery- d/w surgery - wound vac not helping and would avoid Atrial flutter/fib, rate stable LVEF >70% continue toprol xl and Eliquis Episode of SVT vs atrial tachycardia 07/26 HR improved with IV Lopressor, finish loading dose of amiodarone and started on amiodarone 200 mg by mouth daily on August 07, continue Toprol XL Acute blood loss anemia. Resolved s/p blood loss at site of decub ulcer patient received 2 unit of packed RBC continue ferrous sulfate b.i.d. H/H stable CBC check periodically Traumatic SAH CT brain 06/26 ? New small areas of extra-axial hemorrhage adjacent to the left posterior parietal lobe, bilateral occipital lobes and in the occipital horns of both lateral ventricles, repeat CT 06/28 unchanged seen by neuro - AC was held for two weeks no headache, no dizziness No other complications Acute hypoxic respiratory failure due to PNA. Resolved finished 10d of ABX back on room air Urinary retention failed voiding trial x2 continue tamsulosin and finasteride seen by urology, continue roberts upon discharge - outpatient urology follow up Hyponatremia resolved s/p urea cortisol, TSH wnl Mechanical fall difficulty ambulating; awaiting SNF placement, PT has been working with him I do not think he will walk again generalized weakness 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 but not clinically NPH per Neurology incidental 1.3cm pancreatic lesions may reflect adjacent pancreatic cysts outpt MRI/MRCP DM2? : fs acceptable continue Lantus, SSI adjusted . HTN Stable blood pressures, continue metoprolol losartan and hydralazine discontinued due to soft blood pressures HLD statin b/l eye dryness? (clear tearing,no erythema or pain or vision change) added artifical tears drops rash bendaryl cream helping cough 09/07, CXR no pna eliquis Full code Time Spent With Patient Time: Total time managing care of this patient today ____ minutes. Quality Stroke Does the patient have a stroke diagnosis?: No VTE Prior VTE?: No VTE Risk Level:: Medical - moderate - high VTE Device Contraindication: Treatment Not Indicated VTE Drug Contraindication: N/A - Med Ordered
[2022-10-09 11:24] LABS: Glucose, Whole Blood 211 mg/dL (60-115)
[2022-10-09] MEDS: Hydrocortisone 1 % Cream 28.35 GM TUBE 1 APPL TOPICAL ×2 (11:26→20:19)
[2022-10-09] MEDS: Insulin Lispro 100 UNIT/ML 3 ML VIAL SUBCUT ×2 (12:19→20:49)
[2022-10-09 15:30] VITALS: BP 118/58; PULSE 77; RESP 18; TEMP 36.6; O2SAT 97
[2022-10-09 16:18] LABS: Glucose, Whole Blood 139 mg/dL (60-115)
[2022-10-09 19:15] VITALS: BP 110/68; PULSE 80; RESP 17; TEMP 36.1; O2SAT 96
[2022-10-09 20:47] LABS: Glucose, Whole Blood 165 mg/dL (60-115)
[2022-10-10 02:55] VITALS: BP 135/60; PULSE 77; RESP 17; TEMP 36.6; O2SAT 98
[2022-10-10] MEDS: guaiFENesin 100 MG/5 ML LIQUID PO ×2 (03:03→11:56)
[2022-10-10] MEDS: Throat Lozenge, Medicated LOZENGE 1 LOZENGE MUCOUS MEM ×2 (03:11→11:57)
[2022-10-10 07:57] LABS: Glucose, Whole Blood 108 mg/dL (60-115)
[2022-10-10 08:00] VITALS: BP 126/63; PULSE 79; RESP 18; TEMP 36.9; O2SAT 97
[2022-10-10] MEDS: metFORMIN HCl 850 MG TABLET PO ×2 (09:14→16:37)
[2022-10-10] MEDS: Finasteride 5 MG TABLET PO (09:14)
[2022-10-10] MEDS: Metoprolol Succinate ER 100 MG TAB.ER.24H PO (09:14)
[2022-10-10] MEDS: Apixaban 5 MG TABLET PO ×2 (09:15→20:13)
[2022-10-10] MEDS: Acetaminophen 325 MG TABLET 650 MG PO ×2 (09:15→18:11)
[2022-10-10] MEDS: Ferrous Sulfate 324 MG TABLET.DR PO ×2 (09:16→16:37)
[2022-10-10] MEDS: Amiodarone HCL 200 MG TABLET PO (09:16)
[2022-10-10] MEDS: Tamsulosin HCL 0.4 MG CAPSULE 0.8 MG PO (09:17)
[2022-10-10] MEDS: polyethylene glycoL 3350 17 GM POWD.PACK PO (09:18)
[2022-10-10] MEDS: Insulin Glargine,Hum.rec.anlog 100 UNIT/ML 10 ML VIAL 25 UNIT SUBCUT (09:19)
[2022-10-10] MEDS: Hydrocortisone 1 % Cream 28.35 GM TUBE 1 APPL TOPICAL ×2 (09:19→20:14)
--- NOTE | 2022-10-10 11:14 | HO.PM.IMPN ---
Subjective Subjective Date of Service: 10/10/22 Interval History: Remains awake alert oriented. No acute issues overnight Review of Systems denies chest pain Denies shortness of breath Denies nausea vomiting diarrhea Physical Exam Vital Signs: Vital Signs: Last Vital Signs Temp 98.5 F 10/10/22 08:00 Pulse 79 10/10/22 08:00 Resp 18 10/10/22 08:00 BP 126/63 10/10/22 08:00 Pulse Ox 97 10/10/22 08:00 O2 Del Method 10/10/22 08:00 O2 Flow Rate 2 09/04/22 12:48 BMI result Body Mass Index 26.6 Const: Other: awake alert no acute distress Resp: Other: clear to auscultation bilaterally no rales rhonchi or wheezes Cardio: Other: soft nontender nondistended normoactive bowel sounds GI: Other: soft nontender nondistended normoactive bowel sounds Extrem: Other: no edema bilaterally Objective Data Active Medications Acetaminophen (Acetaminophen 325 Mg Tablet) 650 mg PO Q6H PRN PRN Reason: Pain, Mild (Pain Scale 1-3) Last Admin: 10/10/22 09:15 Dose: 650 mg Documented By: NICOLLE Amiodarone HCl (Amiodarone Hcl 200 Mg Tablet) 200 mg PO DAILY REPLACED BY [facility] Last Admin: 10/10/22 09:16 Dose: 200 mg Documented By: NICOLLE Apixaban (Apixaban 5 Mg Tablet) 5 mg PO BID REPLACED BY [facility] Last Admin: 10/10/22 09:15 Dose: 5 mg Documented By: NICOLLE Artificial Tears (Artificial Tears 15 Ml Drops) 1 drop EYE-BOTH Q4H PRN PRN Reason: tearin Last Admin: 10/02/22 08:57 Dose: 1 drop Documented By: KHURRAM Benzocaine (Throat Lozenge, Medicated Lozenge) 1 lozenge MUCOUS MEM Q2H PRN PRN Reason: Sore Throat Last Admin: 10/10/22 03:11 Dose: 1 lozenge Documented By: SU Ferrous Sulfate (Ferrous Sulfate 324 Mg Tablet.Dr) 324 mg PO BIDWM REPLACED BY [facility] Last Admin: 10/10/22 09:16 Dose: 324 mg Documented By: NICOLLE Glucose (Glucose Gel 15 Gm Gel..Gram.) 15 gm PO Q15M PRN; Protocol PRN Reason: per Hypoglycemia Standing Ord. Guaifenesin (Guaifenesin 100 Mg/5 Ml Liquid) 5 ml PO Q6H PRN PRN Reason: Cough Last Admin: 10/10/22 03:03 Dose: 5 ml Documented By: SU Hydrocortisone (Hydrocortisone 1 % Cream 28.35 Gm Tube) 1 appl TOPICAL BID REPLACED BY [facility]; Protocol Last Admin: 10/10/22 09:19 Dose: 1 appl Documented By: NICOLLE Dextrose (D10) 250 mls @ 750 mls/hr IV Q15M PRN; Protocol PRN Reason: per Hypoglycemia Standing Ord. Insulin Glargine (Insulin Glargine,Hum.Rec.Anlog 100 Unit/Ml 10 Ml Vial) 25 unit SUBCUT DAILY@0730 REPLACED BY [facility] Last Admin: 10/10/22 09:19 Dose: 25 unit Documented By: NICOLLE Insulin Human Lispro (Insulin Lispro 100 Unit/Ml 3 Ml Vial) 0 unit SUBCUT QIDACHS REPLACED BY [facility]; Protocol Last Admin: 10/10/22 09:21 Dose: Not Given Documented By: NICOLLE Non-Admin Reason: No Insulin Coverage Metformin HCl (Metformin Hcl 850 Mg Tablet) 850 mg PO BIDWM REPLACED BY [facility] Last Admin: 10/10/22 09:14 Dose: 850 mg Documented By: NICOLLE Metoprolol Succinate (Metoprolol Succinate Er 100 Mg Tab.Er.24h) 100 mg PO DAILY REPLACED BY [facility] Last Admin: 10/10/22 09:14 Dose: 100 mg Documented By: NICOLLE Polyethylene Glycol (Polyethylene Glycol 3350 17 Gm Powd.Pack) 17 gm PO DAILY REPLACED BY [facility] Last Admin: 10/10/22 09:18 Dose: 17 gm Documented By: NICOLLE Sodium Hypochlorite (Sodium Hypochlorite 0.25% 473 Ml Solution) 1 appl TOPICAL BID REPLACED BY [facility] Last Admin: 10/10/22 09:19 Dose: 1 appl Documented By: NICOLLE Tamsulosin HCl (Tamsulosin Hcl 0.4 Mg Capsule) 0.8 mg PO DAILY REPLACED BY [facility] Last Admin: 10/10/22 09:17 Dose: 0.8 mg Documented By: HO.N-NYANM Zinc Acetate/Diphenhydramine (Diphenhydramine Hcl 2 % Cream 28 Gm Tube) 1 appl TOPICAL QID PRN; Protocol PRN Reason: itching Labs 10/05/22 08:08 10/05/22 08:08 Labs: Laboratory Results - last 24 hr 10/09/22 10/09/22 10/09/22 11:20 16:14 20:39 POC Glucose 211 H 139 H 165 H 10/10/22 07:37 POC Glucose 108 Microbiology Microbiology Results: Microbiology 10/05/22 08:10 Blood Culture - Final Blood - Venous No growth after 5 days. 10/05/22 08:08 Blood Culture - Final Blood - Venous No growth after 5 days. 10/05/22 06:00 Urine Culture - Preliminary Urine clean catch - Urine schmidt top Enterobacter cloacae complex Enterococcus faecalis Assessment and Plan (1) Stage 4 decubitus ulcer: Status: Acute Assessment and Plan: 74yo M with DM2, HTN, HLD, chronic venous stasis dermatitis presented with mechanical fall, admitted for hypoxia due to PNA? awaiting safe placement.? Much clearer thought process today. GNR urine continue Ceftin pending ID Sacral decubitus ulcer.? Unstageable, necrotic 10cm x10 cm with 4 cm depth frequent turn,air loss? bed ,continue wound care Improving s/p debridements 07/08, 07/17, 08/05 s/p wound vac placement 07/22/22 - removed 07/25 after it became soiled continue wet to dry dressings , being followed by General surgery- d/w surgery - wound vac not helping and would avoid Atrial flutter/fib, rate stable LVEF >70% continue toprol xl and Eliquis Episode of SVT vs atrial tachycardia 07/26 HR improved with IV Lopressor, finish loading dose of amiodarone and started on amiodarone 200 mg by mouth daily on August 07, continue Toprol XL Acute blood loss anemia. Resolved s/p blood loss at site of decub ulcer patient received 2 unit of packed RBC continue ferrous sulfate b.i.d. H/H stable CBC check periodically Traumatic SAH CT brain 06/26 ? New small areas of extra-axial hemorrhage adjacent to the left posterior parietal lobe, bilateral occipital lobes and in the occipital horns of both lateral ventricles, repeat CT 06/28 unchanged seen by neuro - AC was held for two weeks no headache, no dizziness No other complications Acute hypoxic respiratory failure due to PNA. Resolved finished 10d of ABX back on room air Urinary retention failed voiding trial x2 continue tamsulosin and finasteride seen by urology, continue roberts upon discharge - outpatient urology follow up Hyponatremia resolved s/p urea cortisol, TSH wnl Mechanical fall difficulty ambulating; awaiting SNF placement, PT has been working with him I do not think he will walk again generalized weakness 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 but not clinically NPH per Neurology incidental 1.3cm pancreatic lesions may reflect adjacent pancreatic cysts outpt MRI/MRCP DM2? : fs acceptable continue Lantus, SSI adjusted . HTN Stable blood pressures, continue metoprolol losartan and hydralazine discontinued due to soft blood pressures HLD statin b/l eye dryness? (clear tearing,no erythema or pain or vision change) added artifical tears drops rash bendaryl cream helping cough 2/4, CXR no pna eliquis Full code Time Spent With Patient Time: Total time managing care of this patient today ____ minutes. Quality Stroke Does the patient have a stroke diagnosis?: No VTE Prior VTE?: No VTE Risk Level:: Medical - moderate - high VTE Device Contraindication: Treatment Not Indicated VTE Drug Contraindication: N/A - Med Ordered
[2022-10-10 11:20] LABS: Glucose, Whole Blood 216 mg/dL (60-115)
[2022-10-10] MEDS: Insulin Lispro 100 UNIT/ML 3 ML VIAL SUBCUT ×2 (11:56→16:37)
[2022-10-10 15:14] VITALS: BP 106/56; PULSE 82; RESP 18; TEMP 36.6; O2SAT 95
[2022-10-10 16:20] LABS: Glucose, Whole Blood 174 mg/dL (60-115)
[2022-10-10 19:27] VITALS: BP 103/52; PULSE 88; RESP 18; TEMP 36.7; O2SAT 95
[2022-10-10 20:58] LABS: Glucose, Whole Blood 150 mg/dL (60-115)
[2022-10-11 03:11] VITALS: BP 123/57; PULSE 76; RESP 18; TEMP 36.4; O2SAT 95
[2022-10-11 07:24] LABS: Glucose, Whole Blood 115 mg/dL (60-115)
[2022-10-11] MEDS: Metoprolol Succinate ER 100 MG TAB.ER.24H PO (07:50)
[2022-10-11] MEDS: metFORMIN HCl 850 MG TABLET PO ×2 (07:50→16:19)
[2022-10-11] MEDS: Ferrous Sulfate 324 MG TABLET.DR PO ×2 (07:50→16:19)
[2022-10-11] MEDS: Amiodarone HCL 200 MG TABLET PO (07:50)
[2022-10-11] MEDS: Apixaban 5 MG TABLET PO ×2 (07:51→20:38)
[2022-10-11] MEDS: polyethylene glycoL 3350 17 GM POWD.PACK PO (07:51)
[2022-10-11] MEDS: Tamsulosin HCL 0.4 MG CAPSULE 0.8 MG PO (07:51)
[2022-10-11] MEDS: Hydrocortisone 1 % Cream 28.35 GM TUBE 1 APPL TOPICAL ×2 (07:51→20:40)
[2022-10-11] MEDS: Insulin Glargine,Hum.rec.anlog 100 UNIT/ML 10 ML VIAL 25 UNIT SUBCUT (07:52)
[2022-10-11 08:00] VITALS: BP 118/59; PULSE 77; RESP 18; TEMP 36.8; O2SAT 96
--- NOTE | 2022-10-11 09:23 | MHC.CM.PN ---
CM continues to search for LTC bed, Referral extended. No bed offers at this time.
[2022-10-11 09:51] VITALS: BP 118/59; PULSE 77; O2SAT 96
[2022-10-11 11:37] LABS: Glucose, Whole Blood 216 mg/dL (60-115)
[2022-10-11 11:57] VITALS: BP 123/58; PULSE 82; RESP 15; TEMP 36.7; O2SAT 94
[2022-10-11] MEDS: Insulin Lispro 100 UNIT/ML 3 ML VIAL SUBCUT ×3 (12:04→20:38)
--- NOTE | 2022-10-11 12:15 | HO.PM.IMPN ---
Subjective Subjective Date of Service: 10/11/22 Interval History: Remains awake alert oriented. No acute issues overnight Review of Systems denies chest pain Denies shortness of breath Denies nausea vomiting diarrhea Physical Exam Vital Signs: Vital Signs: Last Vital Signs Temp 98.1 F 10/11/22 11:57 Pulse 82 10/11/22 11:57 Resp 15 10/11/22 11:57 BP 123/58 L 10/11/22 11:57 Pulse Ox 94 10/11/22 11:57 O2 Del Method 10/11/22 11:57 O2 Flow Rate 2 09/04/22 12:48 BMI result Body Mass Index 26.6 Const: Other: awake alert no acute distress Resp: Other: clear to auscultation bilaterally no rales rhonchi or wheezes Cardio: Other: soft nontender nondistended normoactive bowel sounds GI: Other: soft nontender nondistended normoactive bowel sounds Extrem: Other: no edema bilaterally Objective Data Active Medications Acetaminophen (Acetaminophen 325 Mg Tablet) 650 mg PO Q6H PRN PRN Reason: Pain, Mild (Pain Scale 1-3) Last Admin: 10/10/22 18:11 Dose: 650 mg Documented By: NICOLLE Amiodarone HCl (Amiodarone Hcl 200 Mg Tablet) 200 mg PO DAILY [facility] Last Admin: 10/11/22 07:50 Dose: 200 mg Documented By: NICOLLE Apixaban (Apixaban 5 Mg Tablet) 5 mg PO BID [facility] Last Admin: 10/11/22 07:51 Dose: 5 mg Documented By: NICOLLE Artificial Tears (Artificial Tears 15 Ml Drops) 1 drop EYE-BOTH Q4H PRN PRN Reason: tearin Last Admin: 10/02/22 08:57 Dose: 1 drop Documented By: KHURRAM Benzocaine (Throat Lozenge, Medicated Lozenge) 1 lozenge MUCOUS MEM Q2H PRN PRN Reason: Sore Throat Last Admin: 10/10/22 11:57 Dose: 1 lozenge Documented By: NICOLLE Ferrous Sulfate (Ferrous Sulfate 324 Mg Tablet.Dr) 324 mg PO BIDWM [facility] Last Admin: 10/11/22 07:50 Dose: 324 mg Documented By: NICOLLE Glucose (Glucose Gel 15 Gm Gel..Gram.) 15 gm PO Q15M PRN; Protocol PRN Reason: per Hypoglycemia Standing Ord. Guaifenesin (Guaifenesin 100 Mg/5 Ml Liquid) 5 ml PO Q6H PRN PRN Reason: Cough Last Admin: 10/10/22 11:56 Dose: 5 ml Documented By: NICOLLE Hydrocortisone (Hydrocortisone 1 % Cream 28.35 Gm Tube) 1 appl TOPICAL BID [facility]; Protocol Last Admin: 10/11/22 07:51 Dose: 1 appl Documented By: NICOLLE Dextrose (D10) 250 mls @ 750 mls/hr IV Q15M PRN; Protocol PRN Reason: per Hypoglycemia Standing Ord. Insulin Glargine (Insulin Glargine,Hum.Rec.Anlog 100 Unit/Ml 10 Ml Vial) 25 unit SUBCUT DAILY@0730 [facility] Last Admin: 10/11/22 07:52 Dose: 25 unit Documented By: NICOLLE Insulin Human Lispro (Insulin Lispro 100 Unit/Ml 3 Ml Vial) 0 unit SUBCUT QIDACHS [facility]; Protocol Last Admin: 10/11/22 12:04 Dose: 4 unit Documented By: SUE Metformin HCl (Metformin Hcl 850 Mg Tablet) 850 mg PO BIDWM [facility] Last Admin: 10/11/22 07:50 Dose: 850 mg Documented By: NICOLLE Metoprolol Succinate (Metoprolol Succinate Er 100 Mg Tab.Er.24h) 100 mg PO DAILY [facility] Last Admin: 10/11/22 07:50 Dose: 100 mg Documented By: NICOLLE Polyethylene Glycol (Polyethylene Glycol 3350 17 Gm Powd.Pack) 17 gm PO DAILY [facility] Last Admin: 10/11/22 07:51 Dose: 17 gm Documented By: NICOLLE Sodium Hypochlorite (Sodium Hypochlorite 0.25% 473 Ml Solution) 1 appl TOPICAL BID [facility] Last Admin: 10/11/22 07:51 Dose: 1 appl Documented By: NICOLLE Tamsulosin HCl (Tamsulosin Hcl 0.4 Mg Capsule) 0.8 mg PO DAILY [facility] Last Admin: 10/11/22 07:51 Dose: 0.8 mg Documented By: HO.N-NYANM Zinc Acetate/Diphenhydramine (Diphenhydramine Hcl 2 % Cream 28 Gm Tube) 1 appl TOPICAL QID PRN; Protocol PRN Reason: itching Labs 10/05/22 08:08 10/05/22 08:08 Labs: Laboratory Results - last 24 hr 10/10/22 10/10/22 10/11/22 16:13 20:52 07:14 POC Glucose 174 H 150 H 115 10/11/22 11:29 POC Glucose 216 H Microbiology Microbiology Results: Microbiology 10/05/22 08:10 Blood Culture - Final Blood - Venous No growth after 5 days. 10/05/22 08:08 Blood Culture - Final Blood - Venous No growth after 5 days. Assessment and Plan (1) Stage 4 decubitus ulcer: Status: Acute Assessment and Plan: 74yo M with DM2, HTN, HLD, chronic venous stasis dermatitis presented with mechanical fall, admitted for hypoxia due to PNA? awaiting safe placement.? Much clearer thought process today. GNR urine continue Ceftin pending ID Sacral decubitus ulcer.? Unstageable, necrotic 10cm x10 cm with 4 cm depth frequent turn,air loss? bed ,continue wound care Improving s/p debridements 07/08, 07/17, 1/ s/p wound vac placement 07/22/22 - removed 07/25 after it became soiled continue wet to dry dressings , being followed by General surgery- d/w surgery - wound vac not helping and would avoid Atrial flutter/fib, rate stable LVEF >70% continue toprol xl and Eliquis Episode of SVT vs atrial tachycardia 07/26 HR improved with IV Lopressor, finish loading dose of amiodarone and started on amiodarone 200 mg by mouth daily on August 07, continue Toprol XL Acute blood loss anemia. Resolved s/p blood loss at site of decub ulcer patient received 2 unit of packed RBC continue ferrous sulfate b.i.d. H/H stable CBC check periodically Traumatic SAH CT brain 06/26 ? New small areas of extra-axial hemorrhage adjacent to the left posterior parietal lobe, bilateral occipital lobes and in the occipital horns of both lateral ventricles, repeat CT 06/28 unchanged seen by neuro - AC was held for two weeks no headache, no dizziness No other complications Acute hypoxic respiratory failure due to PNA. Resolved finished 10d of ABX back on room air Urinary retention failed voiding trial x2 continue tamsulosin and finasteride seen by urology, continue roberts upon discharge - outpatient urology follow up Hyponatremia resolved s/p urea cortisol, TSH wnl Mechanical fall difficulty ambulating; awaiting SNF placement, PT has been working with him I do not think he will walk again generalized weakness 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 but not clinically NPH per Neurology incidental 1.3cm pancreatic lesions may reflect adjacent pancreatic cysts outpt MRI/MRCP DM2? : fs acceptable continue Lantus, SSI adjusted . HTN Stable blood pressures, continue metoprolol losartan and hydralazine discontinued due to soft blood pressures HLD statin b/l eye dryness? (clear tearing,no erythema or pain or vision change) added artifical tears drops rash bendaryl cream helping cough 2/, CXR no pna eliquis Full code Time Spent With Patient Time: Total time managing care of this patient today ____ minutes. Quality Stroke Does the patient have a stroke diagnosis?: No VTE Prior VTE?: No VTE Risk Level:: Medical - moderate - high VTE Device Contraindication: Treatment Not Indicated VTE Drug Contraindication: N/A - Med Ordered
[2022-10-11] MEDS: Acetaminophen 325 MG TABLET 650 MG PO ×2 (12:57→20:37)
--- NOTE | 2022-10-11 14:58 | MHC.CLN ---
F/U PO INTAKE MOST MEALS 75-100%. DIET RX: DIABETIC 2200 KCALS-APPROPRIATE. SUPPLEMENT ENSURE MAX BID PROVIDES ADDITIONAL 300 KCALS, 60 G PROTEIN. ADDITIONAL PROTEIN TO PROMOTE WOUND HEALING. SKIN CONTINUES WITH STAGE IV TO COCCYX/SACRUM. CONTINUE TO MONITOR PO INTAKE AND WOUND HEALING. RD TO CONTINUE TO FOLLOW WEEKLY.
[2022-10-11 15:51] LABS: Glucose, Whole Blood 211 mg/dL (60-115)
[2022-10-11 15:59] VITALS: BP 121/56; PULSE 86; RESP 16; TEMP 36.4; O2SAT 95
[2022-10-11 19:42] VITALS: BP 128/61; PULSE 86; RESP 16; TEMP 37.4; O2SAT 93
[2022-10-11 20:30] LABS: Glucose, Whole Blood 169 mg/dL (60-115)
[2022-10-12 03:28] VITALS: BP 121/56; PULSE 74; RESP 18; TEMP 36.2; O2SAT 93
[2022-10-12 07:54] VITALS: BP 129/56; PULSE 78; RESP 16; TEMP 36.6; O2SAT 98
[2022-10-12] MEDS: Apixaban 5 MG TABLET PO ×2 (08:08→21:04)
[2022-10-12] MEDS: metFORMIN HCl 850 MG TABLET PO ×2 (08:08→16:31)
[2022-10-12] MEDS: Tamsulosin HCL 0.4 MG CAPSULE 0.8 MG PO (08:08)
[2022-10-12] MEDS: Metoprolol Succinate ER 100 MG TAB.ER.24H PO (08:09)
[2022-10-12] MEDS: Ferrous Sulfate 324 MG TABLET.DR PO ×2 (08:09→16:31)
[2022-10-12] MEDS: Hydrocortisone 1 % Cream 28.35 GM TUBE 1 APPL TOPICAL ×2 (08:09→21:05)
[2022-10-12] MEDS: Amiodarone HCL 200 MG TABLET PO (08:09)
[2022-10-12] MEDS: Insulin Glargine,Hum.rec.anlog 100 UNIT/ML 10 ML VIAL 25 UNIT SUBCUT (08:10)
[2022-10-12] MEDS: Acetaminophen 325 MG TABLET 650 MG PO ×2 (08:11→16:31)
[2022-10-12 08:15] LABS: Glucose, Whole Blood 126 mg/dL (60-115)
--- NOTE | 2022-10-12 11:28 | P.PNIM_ITS ---
Subjective Subjective Date of Service: 10/12/22 Interval History: no complaints awaiting placement Review of Systems Review of Systems: Yes all other systems are reviewed and are negative Physical Exam Vital Signs: Vital Signs: Last Vital Signs Temp 97.8 F 10/12/22 07:54 Pulse 78 10/12/22 07:54 Resp 16 10/12/22 07:54 BP 129/56 L 10/12/22 07:54 Pulse Ox 98 10/12/22 07:54 O2 Del Method 10/12/22 07:54 O2 Flow Rate 2 09/04/22 12:48 BMI result Body Mass Index 26.6 Gen: in no acute distress HEENT: sclera anicteric, moist mucus membranes Neck: supple Lungs: clear to auscultation bilaterally Heart: regular rate and rhythm, no murmurs Abd: soft, non-tender, non-distended Ext: no edema Skin: sacral ulcer Neuro: alert and oriented x3, no focal findings Psych: appropriate affect Objective Data Active Medications Acetaminophen (Acetaminophen 325 Mg Tablet) 650 mg PO Q6H PRN PRN Reason: Pain, Mild (Pain Scale 1-3) Last Admin: 10/12/22 08:11 Dose: 650 mg Documented By: NICOLLE Amiodarone HCl (Amiodarone Hcl 200 Mg Tablet) 200 mg PO DAILY [facility] Last Admin: 10/12/22 08:09 Dose: 200 mg Documented By: NICOLLE Apixaban (Apixaban 5 Mg Tablet) 5 mg PO BID [facility] Last Admin: 10/12/22 08:08 Dose: 5 mg Documented By: NICOLLE Artificial Tears (Artificial Tears 15 Ml Drops) 1 drop EYE-BOTH Q4H PRN PRN Reason: tearin Last Admin: 10/02/22 08:57 Dose: 1 drop Documented By: KHURRAM Benzocaine (Throat Lozenge, Medicated Lozenge) 1 lozenge MUCOUS MEM Q2H PRN PRN Reason: Sore Throat Last Admin: 10/10/22 11:57 Dose: 1 lozenge Documented By: NICOLLE Ferrous Sulfate (Ferrous Sulfate 324 Mg Tablet.Dr) 324 mg PO BIDWM [facility] Last Admin: 10/12/22 08:09 Dose: 324 mg Documented By: NICOLLE Glucose (Glucose Gel 15 Gm Gel..Gram.) 15 gm PO Q15M PRN; Protocol PRN Reason: per Hypoglycemia Standing Ord. Guaifenesin (Guaifenesin 100 Mg/5 Ml Liquid) 5 ml PO Q6H PRN PRN Reason: Cough Last Admin: 10/10/22 11:56 Dose: 5 ml Documented By: NICOLLE Hydrocortisone (Hydrocortisone 1 % Cream 28.35 Gm Tube) 1 appl TOPICAL BID [facility]; Protocol Last Admin: 10/12/22 08:09 Dose: 1 appl Documented By: NICOLLE Dextrose (D10) 250 mls @ 750 mls/hr IV Q15M PRN; Protocol PRN Reason: per Hypoglycemia Standing Ord. Insulin Glargine (Insulin Glargine,Hum.Rec.Anlog 100 Unit/Ml 10 Ml Vial) 25 unit SUBCUT DAILY@0730 [facility] Last Admin: 10/12/22 08:10 Dose: 25 unit Documented By: NICOLLE Insulin Human Lispro (Insulin Lispro 100 Unit/Ml 3 Ml Vial) 0 unit SUBCUT QIDACHS [facility]; Protocol Last Admin: 10/12/22 08:10 Dose: Not Given Documented By: NICOLLE Non-Admin Reason: No Insulin Coverage Metformin HCl (Metformin Hcl 850 Mg Tablet) 850 mg PO BIDWM [facility] Last Admin: 10/12/22 08:08 Dose: 850 mg Documented By: NICOLLE Metoprolol Succinate (Metoprolol Succinate Er 100 Mg Tab.Er.24h) 100 mg PO DAILY [facility] Last Admin: 10/12/22 08:09 Dose: 100 mg Documented By: NICOLLE Polyethylene Glycol (Polyethylene Glycol 3350 17 Gm Powd.Pack) 17 gm PO DAILY [facility] Last Admin: 10/12/22 08:20 Dose: Not Given Documented By: NICOLLE Non-Admin Reason: loose stool Sodium Hypochlorite (Sodium Hypochlorite 0.25% 473 Ml Solution) 1 appl TOPICAL BID [facility] Last Admin: 10/12/22 08:09 Dose: 1 appl Documented By: NICOLLE Tamsulosin HCl (Tamsulosin Hcl 0.4 Mg Capsule) 0.8 mg PO DAILY [facility] Last Admin: 10/12/22 08:08 Dose: 0.8 mg Documented By: NICOLLE Zinc Acetate/Diphenhydramine (Diphenhydramine Hcl 2 % Cream 28 Gm Tube) 1 appl TOPICAL QID PRN; Protocol PRN Reason: itching Labs 10/05/22 08:08 10/05/22 08:08 Labs: Laboratory Results - last 24 hr 10/11/22 10/11/22 10/11/22 11:29 15:42 20:23 POC Glucose 216 H 211 H 169 H 10/12/22 07:57 POC Glucose 126 H Assessment and Plan (1) Fall: Status: [facility] hospital d#[id number] 74yo M with DM2, HTN, HLD, chronic venous stasis dermatitis presented with mechanical fall, admitted for hypoxia due to PNA and now awaiting safe placement # UTI - completed 5d ABX # cough - resolved # sacral decubitus ulcer - unstageable, necrotic 10cm x10 cm with 4 cm depth - frequent turning, air loss bed, continue wound care - s/p debridements 07/08, 07/17, 08/05 - s/p wound VAC placement 07/22 + removed 07/25 after it became soiled- no further role for VAC per Surgery - continue wet to dry dressings, periodic Surgery input # atrial flutter/fib - LVEF >70% - continue Toprol XL for rate control - continue amiodarone for rhythm contrl - continue AC with Eliquis # episode of SVT vs atrial tachycardia 07/26 - HR improved with IV Lopressor, finished loading dose of amiodarone and started on amiodarone 200 mg by mouth daily on 08/07, continue Toprol XL # acute blood loss anemia - resolved, was attributed to blood loss at site of decub ulcer, patient received 2 unit of packed RBC - continue ferrous sulfate b.i.d. - H/H stable, periodic check- today's stable # traumatic SAH - CT brain 06/26: New small areas of extra-axial hemorrhage adjacent to the left posterior parietal lobe, bilateral occipital lobes and in the occipital horns of both lateral ventricles, repeat CT 06/28 unchanged - seen by Neuro; AC was held for two weeks - no headache, no dizziness; no other complications # acute hypoxic respiratory failure due to PNA - resolved; finished 10d of ABX; back on room air # urinary retention - failed voiding trial x2; continue tamsulosin and finasteride; seen by urology, continue Lemus upon discharge; outpatient urology follow up # hyponatremia - resolved; s/p urea; cortisol, TSH WNL # mechanical fall - difficulty ambulating; awaiting SNF placement, PT has been working with him # generalized weakness - 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 but not clinically NPH per Neurology # incidental 1.3cm pancreatic lesions - may reflect adjacent pancreatic cysts, outpt MRI/MRCP # DM2 - glycemic control acceptable; continue basal-bolus insulin + MTF # HTN - stable blood pressures, continue metoprolol; losartan and hydralazine discontinued due to soft blood pressures # HLD - statin # bilateral eye dryness - clear tearing, no erythema or pain or vision change - artificial tear drops # rash - Bendaryl cream, hydrocortisone # VTE ppx: Eliquis # dispo: awaiting placement LTC In my clinical judgment, the patient requires continued inpatient hospitalization for the following reasons: safe placement Time Spent With Patient Time: Total time managing care of this patient today ___25_ minutes. Quality Stroke Does the patient have a stroke diagnosis?: No VTE Prior VTE?: No VTE Risk Level:: Medical - moderate - high VTE Device Contraindication: Treatment Not Indicated VTE Drug Contraindication: N/A - Med Ordered
--- NOTE | 2022-10-12 11:32 | P.PNIM_ITS ---
Subjective Subjective Date of Service: 10/13/22 Interval History: no new complaints Review of Systems Review of Systems: Yes all other systems are reviewed and are negative Physical Exam Vital Signs: Vital Signs: Last Vital Signs Temp 97.8 F 10/12/22 07:54 Pulse 78 10/12/22 07:54 Resp 16 10/12/22 07:54 BP 129/56 L 10/12/22 07:54 Pulse Ox 98 10/12/22 07:54 O2 Del Method 10/12/22 07:54 O2 Flow Rate 2 09/04/22 12:48 BMI result Body Mass Index 26.6 Gen: in no acute distress HEENT: sclera anicteric, moist mucus membranes Neck: supple Lungs: clear to auscultation bilaterally Heart: regular rate and rhythm, no murmurs Abd: soft, non-tender, non-distended Ext: no edema Skin: sacral ulcer Neuro: alert and oriented x3, no focal findings Psych: appropriate affect Objective Data Active Medications Acetaminophen (Acetaminophen 325 Mg Tablet) 650 mg PO Q6H PRN PRN Reason: Pain, Mild (Pain Scale 1-3) Last Admin: 10/12/22 08:11 Dose: 650 mg Documented By: NICOLLE Amiodarone HCl (Amiodarone Hcl 200 Mg Tablet) 200 mg PO DAILY [facility] Last Admin: 10/12/22 08:09 Dose: 200 mg Documented By: NICOLLE Apixaban (Apixaban 5 Mg Tablet) 5 mg PO BID [facility] Last Admin: 10/12/22 08:08 Dose: 5 mg Documented By: NICOLLE Artificial Tears (Artificial Tears 15 Ml Drops) 1 drop EYE-BOTH Q4H PRN PRN Reason: tearin Last Admin: 10/02/22 08:57 Dose: 1 drop Documented By: KHURRAM Benzocaine (Throat Lozenge, Medicated Lozenge) 1 lozenge MUCOUS MEM Q2H PRN PRN Reason: Sore Throat Last Admin: 10/10/22 11:57 Dose: 1 lozenge Documented By: NICOLLE Ferrous Sulfate (Ferrous Sulfate 324 Mg Tablet.Dr) 324 mg PO BIDWM [facility] Last Admin: 10/12/22 08:09 Dose: 324 mg Documented By: NICOLLE Glucose (Glucose Gel 15 Gm Gel..Gram.) 15 gm PO Q15M PRN; Protocol PRN Reason: per Hypoglycemia Standing Ord. Guaifenesin (Guaifenesin 100 Mg/5 Ml Liquid) 5 ml PO Q6H PRN PRN Reason: Cough Last Admin: 10/10/22 11:56 Dose: 5 ml Documented By: NICOLLE Hydrocortisone (Hydrocortisone 1 % Cream 28.35 Gm Tube) 1 appl TOPICAL BID [facility]; Protocol Last Admin: 10/12/22 08:09 Dose: 1 appl Documented By: NICOLLE Dextrose (D10) 250 mls @ 750 mls/hr IV Q15M PRN; Protocol PRN Reason: per Hypoglycemia Standing Ord. Insulin Glargine (Insulin Glargine,Hum.Rec.Anlog 100 Unit/Ml 10 Ml Vial) 25 unit SUBCUT DAILY@0730 [facility] Last Admin: 10/12/22 08:10 Dose: 25 unit Documented By: NICOLLE Insulin Human Lispro (Insulin Lispro 100 Unit/Ml 3 Ml Vial) 0 unit SUBCUT QIDACHS [facility]; Protocol Last Admin: 10/12/22 08:10 Dose: Not Given Documented By: NICOLLE Non-Admin Reason: No Insulin Coverage Metformin HCl (Metformin Hcl 850 Mg Tablet) 850 mg PO BIDWM [facility] Last Admin: 10/12/22 08:08 Dose: 850 mg Documented By: NICOLLE Metoprolol Succinate (Metoprolol Succinate Er 100 Mg Tab.Er.24h) 100 mg PO DAILY [facility] Last Admin: 10/12/22 08:09 Dose: 100 mg Documented By: NICOLLE Polyethylene Glycol (Polyethylene Glycol 3350 17 Gm Powd.Pack) 17 gm PO DAILY [facility] Last Admin: 10/12/22 08:20 Dose: Not Given Documented By: NICOLLE Non-Admin Reason: loose stool Sodium Hypochlorite (Sodium Hypochlorite 0.25% 473 Ml Solution) 1 appl TOPICAL BID [facility] Last Admin: 10/12/22 08:09 Dose: 1 appl Documented By: NICOLLE Tamsulosin HCl (Tamsulosin Hcl 0.4 Mg Capsule) 0.8 mg PO DAILY [facility] Last Admin: 10/12/22 08:08 Dose: 0.8 mg Documented By: NICOLLE Zinc Acetate/Diphenhydramine (Diphenhydramine Hcl 2 % Cream 28 Gm Tube) 1 appl TOPICAL QID PRN; Protocol PRN Reason: itching Labs 10/05/22 08:08 10/05/22 08:08 Labs: Laboratory Results - last 24 hr 10/11/22 10/11/22 10/11/22 11:29 15:42 20:23 POC Glucose 216 H 211 H 169 H 10/12/22 07:57 POC Glucose 126 H Assessment and Plan (1) Fall: Status: [facility] hospital d#121 74yo M with DM2, HTN, HLD, chronic venous stasis dermatitis presented with mechanical fall, admitted for hypoxia due to PNA and now awaiting safe placement # UTI - completed 5d ABX # cough - resolved # sacral decubitus ulcer - unstageable, necrotic 10cm x10 cm with 4 cm depth - frequent turning, air loss bed, continue wound care - s/p debridements 07/08, 07/17, 08/05 - s/p wound VAC placement 07/22 + removed 07/25 after it became soiled- no further role for VAC per Surgery - continue wet to dry dressings, periodic Surgery input # atrial flutter/fib - LVEF >70% - continue Toprol XL for rate control - continue amiodarone for rhythm contrl - continue AC with Eliquis # episode of SVT vs atrial tachycardia 07/26 - HR improved with IV Lopressor, finished loading dose of amiodarone and started on amiodarone 200 mg by mouth daily on 08/07, continue Toprol XL # acute blood loss anemia - resolved, was attributed to blood loss at site of decub ulcer, patient received 2 unit of packed RBC - continue ferrous sulfate b.i.d. - H/H stable, periodic check- today's stable # traumatic SAH - CT brain 06/26: New small areas of extra-axial hemorrhage adjacent to the left posterior parietal lobe, bilateral occipital lobes and in the occipital horns of both lateral ventricles, repeat CT 06/28 unchanged - seen by Neuro; AC was held for two weeks - no headache, no dizziness; no other complications # acute hypoxic respiratory failure due to PNA - resolved; finished 10d of ABX; back on room air # urinary retention - failed voiding trial x2; continue tamsulosin and finasteride; seen by urology, continue Lemus upon discharge; outpatient urology follow up # hyponatremia - resolved; s/p urea; cortisol, TSH WNL # mechanical fall - difficulty ambulating; awaiting SNF placement, PT has been working with him # generalized weakness - 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 but not clinically NPH per Neurology # incidental 1.3cm pancreatic lesions - may reflect adjacent pancreatic cysts, outpt MRI/MRCP # DM2 - continue basal-bolus insulin + MTF [increase sliding scale to cover daytime hyperglycemia] # HTN - stable blood pressures, continue metoprolol; losartan and hydralazine discontinued due to soft blood pressures # HLD - statin # bilateral eye dryness - clear tearing, no erythema or pain or vision change - artificial tear drops # rash - Bendaryl cream, hydrocortisone # VTE ppx: Eliquis # dispo: awaiting placement LTC In my clinical judgment, the patient requires continued inpatient hospitalization for the following reasons: safe placement Time Spent With Patient Time: Total time managing care of this patient today __25__ minutes. Quality Stroke Does the patient have a stroke diagnosis?: No VTE Prior VTE?: No VTE Risk Level:: Medical - moderate - high VTE Device Contraindication: Treatment Not Indicated VTE Drug Contraindication: N/A - Med Ordered
[2022-10-12 12:12] LABS: Glucose, Whole Blood 155 mg/dL (60-115)
[2022-10-12] MEDS: Insulin Lispro 100 UNIT/ML 3 ML VIAL SUBCUT ×2 (12:13→21:04)
[2022-10-12 14:57] VITALS: BP 114/59; PULSE 72; RESP 16; TEMP 36.3; O2SAT 95
[2022-10-12 16:13] LABS: Glucose, Whole Blood 131 mg/dL (60-115)
[2022-10-12 19:21] VITALS: BP 114/57; PULSE 74; RESP 18; TEMP 36.3; O2SAT 94
[2022-10-12 20:49] LABS: Glucose, Whole Blood 182 mg/dL (60-115)
[2022-10-12] MEDS: guaiFENesin 100 MG/5 ML LIQUID PO (21:04)
[2022-10-13] MEDS: Acetaminophen 325 MG TABLET 650 MG PO (01:05)
[2022-10-13 04:00] VITALS: BP 127/61; PULSE 76; RESP 16; TEMP 36.3; O2SAT 97
[2022-10-13 07:23] LABS: Glucose, Whole Blood 114 mg/dL (60-115)
[2022-10-13 07:47] VITALS: PULSE 72; RESP 18; TEMP 36.6; O2SAT 94
[2022-10-13] MEDS: Amiodarone HCL 200 MG TABLET PO (07:50)
[2022-10-13] MEDS: metFORMIN HCl 850 MG TABLET PO ×2 (07:50→17:02)
[2022-10-13] MEDS: Tamsulosin HCL 0.4 MG CAPSULE 0.8 MG PO (07:50)
[2022-10-13] MEDS: Metoprolol Succinate ER 100 MG TAB.ER.24H PO (07:50)
[2022-10-13] MEDS: Ferrous Sulfate 324 MG TABLET.DR PO ×2 (07:50→17:02)
[2022-10-13] MEDS: Apixaban 5 MG TABLET PO ×2 (07:50→20:00)
[2022-10-13] MEDS: Insulin Glargine,Hum.rec.anlog 100 UNIT/ML 10 ML VIAL 25 UNIT SUBCUT (07:52)
[2022-10-13] MEDS: Hydrocortisone 1 % Cream 28.35 GM TUBE 1 APPL TOPICAL ×2 (08:01→20:00)
[2022-10-13 11:12] LABS: Glucose, Whole Blood 205 mg/dL (60-115)
[2022-10-13] MEDS: Insulin Lispro 100 UNIT/ML 3 ML VIAL SUBCUT ×3 (11:59→20:59)
--- NOTE | 2022-10-13 15:06 | PC.NURSE ---
Assumed care of patient at 0700. Patient is alert, appropriate, follows commands. No c/o pain except with movement onto coccyx wound. Note fine crackles in right lung raphael. Left is C/D. Currently on room air. Warm, pale, slow CMS. BG per insulin sliding scale orders. +flatus/+BM --> dark brown semi formed stools noted. Limited movement in all extremities. Joint and muscle stiffness noted. Alternating sequential boots d/t patient comfort. Immediate care needs addressed. All questions answered.
[2022-10-13 16:00] VITALS: BP 118/59; PULSE 71; RESP 16; TEMP 36.5; O2SAT 97
[2022-10-13 16:37] LABS: Glucose, Whole Blood 177 mg/dL (60-115)
[2022-10-13 19:47] VITALS: BP 118/68; PULSE 78; RESP 18; TEMP 36.5; O2SAT 97
[2022-10-13] MEDS: Throat Lozenge, Medicated LOZENGE 1 LOZENGE MUCOUS MEM (20:09)
[2022-10-13 20:46] LABS: Glucose, Whole Blood 178 mg/dL (60-115)
[2022-10-14 03:37] VITALS: BP 124/70; PULSE 79; RESP 17; TEMP 36.3; O2SAT 96
[2022-10-14 07:34] VITALS: BP 141/68; PULSE 76; RESP 18; TEMP 36.4; O2SAT 95
[2022-10-14 07:50] LABS: Glucose, Whole Blood 91 mg/dL (60-115)
[2022-10-14] MEDS: Amiodarone HCL 200 MG TABLET PO (08:39)
[2022-10-14] MEDS: Hydrocortisone 1 % Cream 28.35 GM TUBE 1 APPL TOPICAL ×2 (08:39→20:59)
[2022-10-14] MEDS: Ferrous Sulfate 324 MG TABLET.DR PO ×2 (08:39→16:51)
[2022-10-14] MEDS: metFORMIN HCl 850 MG TABLET PO ×2 (08:39→16:51)
[2022-10-14] MEDS: Apixaban 5 MG TABLET PO ×2 (08:39→20:52)
[2022-10-14] MEDS: Tamsulosin HCL 0.4 MG CAPSULE 0.8 MG PO (08:39)
[2022-10-14] MEDS: Metoprolol Succinate ER 100 MG TAB.ER.24H PO (08:39)
[2022-10-14 09:04] LABS: Creatinine Clr Calc Pharmacy 119.7; Estimated Glomerular Filt Rate > 60
[2022-10-14] MEDS: Insulin Glargine,Hum.rec.anlog 100 UNIT/ML 10 ML VIAL 25 UNIT SUBCUT (09:52)
[2022-10-14 11:43] LABS: Glucose, Whole Blood 181 mg/dL (60-115)
--- NOTE | 2022-10-14 11:51 | P.PNIM_ITS ---
Subjective Subjective Date of Service: 10/14/22 Interval History: no new complaints Review of Systems Review of Systems: Yes all other systems are reviewed and are negative Physical Exam Vital Signs: Vital Signs: Last Vital Signs Temp 97.5 F 10/14/22 07:34 Pulse 76 10/14/22 07:34 Resp 18 10/14/22 07:34 BP 141/68 H 10/14/22 07:34 Pulse Ox 95 10/14/22 07:34 O2 Del Method 10/14/22 07:34 O2 Flow Rate 2 09/04/22 12:48 BMI result Body Mass Index 26.6 Gen: in no acute distress HEENT: sclera anicteric, moist mucus membranes Neck: supple Lungs: clear to auscultation bilaterally Heart: regular rate and rhythm, no murmurs Abd: soft, non-tender, non-distended Ext: no edema Skin: sacral ulcer Neuro: alert and oriented x3, no focal findings Psych: appropriate affect Objective Data Active Medications Acetaminophen (Acetaminophen 325 Mg Tablet) 650 mg PO Q6H PRN PRN Reason: Pain, Mild (Pain Scale 1-3) Last Admin: 10/13/22 01:05 Dose: 650 mg Documented By: MARIA ALEJANDRA Amiodarone HCl (Amiodarone Hcl 200 Mg Tablet) 200 mg PO DAILY [facility] Last Admin: 10/14/22 08:39 Dose: 200 mg Documented By: ELVIRA Apixaban (Apixaban 5 Mg Tablet) 5 mg PO BID [facility] Last Admin: 10/14/22 08:39 Dose: 5 mg Documented By: ELVIRA Artificial Tears (Artificial Tears 15 Ml Drops) 1 drop EYE-BOTH Q4H PRN PRN Reason: tearin Last Admin: 10/02/22 08:57 Dose: 1 drop Documented By: KHURRAM Benzocaine (Throat Lozenge, Medicated Lozenge) 1 lozenge MUCOUS MEM Q2H PRN PRN Reason: Sore Throat Last Admin: 10/13/22 20:09 Dose: 1 lozenge Documented By: SU Ferrous Sulfate (Ferrous Sulfate 324 Mg Tablet.) 324 mg PO BIDWM [facility] Last Admin: 10/14/22 08:39 Dose: 324 mg Documented By: ELVIRA Glucose (Glucose Gel 15 Gm Gel..Gram.) 15 gm PO Q15M PRN; Protocol PRN Reason: per Hypoglycemia Standing Ord. Guaifenesin (Guaifenesin 100 Mg/5 Ml Liquid) 5 ml PO Q6H PRN PRN Reason: Cough Last Admin: 10/12/22 21:04 Dose: 5 ml Documented By: NICOLLE Hydrocortisone (Hydrocortisone 1 % Cream 28.35 Gm Tube) 1 appl TOPICAL BID [facility]; Protocol Last Admin: 10/14/22 08:39 Dose: 1 appl Documented By: ELVIRA Dextrose (D10) 250 mls @ 750 mls/hr IV Q15M PRN; Protocol PRN Reason: per Hypoglycemia Standing Ord. Insulin Glargine (Insulin Glargine,Hum.Rec.Anlog 100 Unit/Ml 10 Ml Vial) 25 unit SUBCUT DAILY@0730 [facility] Last Admin: 10/14/22 09:52 Dose: 25 unit Documented By: ELVIRA Insulin Human Lispro (Insulin Lispro 100 Unit/Ml 3 Ml Vial) 0 unit SUBCUT QIDACHS [facility]; Protocol Last Admin: 10/14/22 08:31 Dose: Not Given Documented By: ELVIRA Non-Admin Reason: No Insulin Coverage Metformin HCl (Metformin Hcl 850 Mg Tablet) 850 mg PO BIDWM [facility] Last Admin: 10/14/22 08:39 Dose: 850 mg Documented By: ELVIRA Metoprolol Succinate (Metoprolol Succinate Er 100 Mg Tab.Er.24h) 100 mg PO DAILY [facility] Last Admin: 10/14/22 08:39 Dose: 100 mg Documented By: ELVIRA Polyethylene Glycol (Polyethylene Glycol 3350 17 Gm Powd.Pack) 17 gm PO DAILY [facility] Last Admin: 10/14/22 08:57 Dose: Not Given Documented By: ELVIRA Non-Admin Reason: Patient Refused Sodium Hypochlorite (Sodium Hypochlorite 0.25% 473 Ml Solution) 1 appl TOPICAL BID [facility] Last Admin: 10/13/22 20:00 Dose: 1 appl Documented By: SU Tamsulosin HCl (Tamsulosin Hcl 0.4 Mg Capsule) 0.8 mg PO DAILY [facility] Last Admin: 10/14/22 08:39 Dose: 0.8 mg Documented By: ELVIRA Zinc Acetate/Diphenhydramine (Diphenhydramine Hcl 2 % Cream 28 Gm Tube) 1 appl TOPICAL QID PRN; Protocol PRN Reason: itching Labs 10/05/22 08:08 10/14/22 08:33 Labs: Laboratory Results - last 24 hr 10/13/22 10/13/22 10/14/22 16:32 20:32 07:25 Estim Creat Clear Calc Estimated GFR POC Glucose 177 H 178 H 91 10/14/22 10/14/22 08:33 11:23 Estim Creat Clear Calc 119.7 Estimated GFR > 60 POC Glucose 181 H Microbiology Microbiology Results: Microbiology 10/05/22 06:00 Urine Culture - Final Urine clean catch - Urine cshmidt top Enterobacter cloacae complex Enterococcus faecalis Assessment and Plan (1) Fall: Status: [facility] d#122 74yo M with DM2, HTN, HLD, chronic venous stasis dermatitis presented with mechanical fall, admitted for hypoxia due to PNA and now awaiting safe placement # UTI - completed 5d ABX # cough - resolved # sacral decubitus ulcer - unstageable, necrotic 10cm x10 cm with 4 cm depth - frequent turning, air loss bed, continue wound care - s/p debridements 07/08, 07/17, 08/05 - s/p wound VAC placement 07/22 + removed 07/25 after it became soiled- no further role for VAC per Surgery - continue wet to dry dressings, periodic Surgery input # atrial flutter/fib - LVEF >70% - continue Toprol XL for rate control - continue amiodarone for rhythm contrl - continue AC with Eliquis # episode of SVT vs atrial tachycardia 07/26 - HR improved with IV Lopressor, finished loading dose of amiodarone and started on amiodarone 200 mg by mouth daily on 08/07, continue Toprol XL # acute blood loss anemia - resolved, was attributed to blood loss at site of decub ulcer, patient received 2 unit of packed RBC - continue ferrous sulfate b.i.d. - H/H stable, periodic check- today's stable # traumatic SAH - CT brain 06/26: New small areas of extra-axial hemorrhage adjacent to the left posterior parietal lobe, bilateral occipital lobes and in the occipital horns of both lateral ventricles, repeat CT 06/28 unchanged - seen by Neuro; AC was held for two weeks - no headache, no dizziness; no other complications # acute hypoxic respiratory failure due to PNA - resolved; finished 10d of ABX; back on room air # urinary retention - failed voiding trial x2; continue tamsulosin and finasteride; seen by urology, continue Lemus upon discharge; outpatient urology follow up # hyponatremia - resolved; s/p urea; cortisol, TSH WNL # mechanical fall - difficulty ambulating; awaiting SNF placement, PT has been working with him # generalized weakness - 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 but not clinically NPH per Neurology # incidental 1.3cm pancreatic lesions - may reflect adjacent pancreatic cysts, outpt MRI/MRCP # DM2 - continue basal-bolus insulin + MTF [increase sliding scale to cover daytime hyperglycemia] # HTN - stable blood pressures, continue metoprolol; losartan and hydralazine discontinued due to soft blood pressures # HLD - statin # bilateral eye dryness - clear tearing, no erythema or pain or vision change - artificial tear drops # rash - Bendaryl cream, hydrocortisone # VTE ppx: Eliquis # dispo: awaiting placement LTC In my clinical judgment, the patient requires continued inpatient hospitalization for the following reasons: safe placement Time Spent With Patient Time: Total time managing care of this patient today _25___ minutes. Quality Stroke Does the patient have a stroke diagnosis?: No VTE Prior VTE?: No VTE Risk Level:: Medical - moderate - high VTE Device Contraindication: Treatment Not Indicated VTE Drug Contraindication: N/A - Med Ordered
[2022-10-14] MEDS: Insulin Lispro 100 UNIT/ML 3 ML VIAL SUBCUT ×3 (11:55→20:52)
[2022-10-14 15:52] VITALS: BP 130/69; PULSE 80; RESP 18; TEMP 36.7; O2SAT 97
[2022-10-14 16:30] LABS: Glucose, Whole Blood 188 mg/dL (60-115)
--- NOTE | 2022-10-14 17:20 | MHC.CM.PN ---
DP LTC via BLS. Bed search in progress. No bed offer received. POA working with [employer] to obtain [email or web address].
[2022-10-14 20:00] VITALS: BP 115/58; PULSE 78; RESP 18; TEMP 36.6; O2SAT 98
[2022-10-14 20:30] LABS: Glucose, Whole Blood 181 mg/dL (60-115)
[2022-10-14] MEDS: Acetaminophen 325 MG TABLET 650 MG PO (20:52)
[2022-10-15 03:27] VITALS: BP 105/55; PULSE 64; RESP 18; TEMP 36.4; O2SAT 98
[2022-10-15 07:31] VITALS: BP 134/63; PULSE 71; RESP 18; TEMP 36.3; O2SAT 98
[2022-10-15 07:48] LABS: Glucose, Whole Blood 89 mg/dL (60-115)
[2022-10-15] MEDS: Tamsulosin HCL 0.4 MG CAPSULE 0.8 MG PO (08:23)
[2022-10-15] MEDS: metFORMIN HCl 850 MG TABLET PO ×2 (08:23→17:09)
[2022-10-15] MEDS: Apixaban 5 MG TABLET PO ×2 (08:23→21:15)
[2022-10-15] MEDS: Insulin Glargine,Hum.rec.anlog 100 UNIT/ML 10 ML VIAL 25 UNIT SUBCUT (08:23)
[2022-10-15] MEDS: Ferrous Sulfate 324 MG TABLET.DR PO ×2 (08:23→17:09)
[2022-10-15] MEDS: Metoprolol Succinate ER 100 MG TAB.ER.24H PO (08:23)
[2022-10-15] MEDS: polyethylene glycoL 3350 17 GM POWD.PACK PO (08:24)
[2022-10-15] MEDS: Amiodarone HCL 200 MG TABLET PO (08:24)
[2022-10-15] MEDS: Hydrocortisone 1 % Cream 28.35 GM TUBE 1 APPL TOPICAL ×2 (08:24→21:17)
[2022-10-15 11:34] LABS: Glucose, Whole Blood 266 mg/dL (60-115)
--- NOTE | 2022-10-15 11:36 | P.PNIM_ITS ---
Subjective Subjective Date of Service: 10/15/22 Interval History: c/o toothache no other complaints Review of Systems Review of Systems: Yes all other systems are reviewed and are negative Physical Exam Vital Signs: Vital Signs: Last Vital Signs Temp 97.4 F 10/15/22 07:31 Pulse 71 10/15/22 07:31 Resp 18 10/15/22 07:31 BP 134/63 10/15/22 07:31 Pulse Ox 98 10/15/22 07:31 O2 Del Method 10/15/22 07:31 O2 Flow Rate 2 09/04/22 12:48 BMI result Body Mass Index 26.6 Gen: in no acute distress HEENT: sclera anicteric, moist mucus membranes Neck: supple Lungs: clear to auscultation bilaterally Heart: regular rate and rhythm, no murmurs Abd: soft, non-tender, non-distended Ext: no edema Skin: sacral ulcer Neuro: alert and oriented x3, no focal findings Psych: appropriate affect Objective Data Active Medications Acetaminophen (Acetaminophen 325 Mg Tablet) 650 mg PO Q6H PRN PRN Reason: Pain, Mild (Pain Scale 1-3) Last Admin: 10/14/22 20:52 Dose: 650 mg Documented By: MARIA ALEJANDRA Amiodarone HCl (Amiodarone Hcl 200 Mg Tablet) 200 mg PO DAILY [facility] Last Admin: 10/15/22 08:24 Dose: 200 mg Documented By: JETT Apixaban (Apixaban 5 Mg Tablet) 5 mg PO BID [facility] Last Admin: 10/15/22 08:23 Dose: 5 mg Documented By: JETT Artificial Tears (Artificial Tears 15 Ml Drops) 1 drop EYE-BOTH Q4H PRN PRN Reason: tearin Last Admin: 10/02/22 08:57 Dose: 1 drop Documented By: KHURRAM Benzocaine (Throat Lozenge, Medicated Lozenge) 1 lozenge MUCOUS MEM Q2H PRN PRN Reason: Sore Throat Last Admin: 10/13/22 20:09 Dose: 1 lozenge Documented By: SU Ferrous Sulfate (Ferrous Sulfate 324 Mg Tablet.Dr) 324 mg PO BIDWM [facility] Last Admin: 10/15/22 08:23 Dose: 324 mg Documented By: JETT Glucose (Glucose Gel 15 Gm Gel..Gram.) 15 gm PO Q15M PRN; Protocol PRN Reason: per Hypoglycemia Standing Ord. Guaifenesin (Guaifenesin 100 Mg/5 Ml Liquid) 5 ml PO Q6H PRN PRN Reason: Cough Last Admin: 10/12/22 21:04 Dose: 5 ml Documented By: NICOLLE Hydrocortisone (Hydrocortisone 1 % Cream 28.35 Gm Tube) 1 appl TOPICAL BID [facility]; Protocol Last Admin: 10/15/22 08:24 Dose: 1 appl Documented By: JETT Dextrose (D10) 250 mls @ 750 mls/hr IV Q15M PRN; Protocol PRN Reason: per Hypoglycemia Standing Ord. Insulin Glargine (Insulin Glargine,Hum.Rec.Anlog 100 Unit/Ml 10 Ml Vial) 25 unit SUBCUT DAILY@0730 [facility] Last Admin: 10/15/22 08:23 Dose: 25 unit Documented By: JETT Insulin Human Lispro (Insulin Lispro 100 Unit/Ml 3 Ml Vial) 0 unit SUBCUT QIDACHS [facility]; Protocol Last Admin: 10/15/22 07:50 Dose: Not Given Documented By: JETT Non-Admin Reason: No Insulin Coverage Metformin HCl (Metformin Hcl 850 Mg Tablet) 850 mg PO BIDWM [facility] Last Admin: 10/15/22 08:23 Dose: 850 mg Documented By: JETT Metoprolol Succinate (Metoprolol Succinate Er 100 Mg Tab.Er.24h) 100 mg PO DAILY [facility] Last Admin: 10/15/22 08:23 Dose: 100 mg Documented By: JETT Polyethylene Glycol (Polyethylene Glycol 3350 17 Gm Powd.Pack) 17 gm PO DAILY [facility] Last Admin: 10/15/22 08:24 Dose: 17 gm Documented By: JETT Sodium Hypochlorite (Sodium Hypochlorite 0.25% 473 Ml Solution) 1 appl TOPICAL BID [facility] Last Admin: 10/15/22 08:24 Dose: 1 appl Documented By: JETT Tamsulosin HCl (Tamsulosin Hcl 0.4 Mg Capsule) 0.8 mg PO DAILY [facility] Last Admin: 10/15/22 08:23 Dose: 0.8 mg Documented By: JETT Zinc Acetate/Diphenhydramine (Diphenhydramine Hcl 2 % Cream 28 Gm Tube) 1 appl TOPICAL QID PRN; Protocol PRN Reason: itching Labs 10/05/22 08:08 10/14/22 08:33 Labs: Laboratory Results - last 24 hr 10/14/22 10/14/22 10/14/22 11:23 16:21 20:26 POC Glucose 181 H 188 H 181 H 10/15/22 10/15/22 07:30 11:18 POC Glucose 89 266 H Assessment and Plan (1) Fall: Status: [facility] hospital d#123 74yo M with DM2, HTN, HLD, chronic venous stasis dermatitis presented with mechanical fall, admitted for hypoxia due to PNA and now awaiting safe placement # UTI - completed 5d ABX # cough - resolved # toothache - benzocaine gel # sacral decubitus ulcer - unstageable, necrotic 10cm x10 cm with 4 cm depth - frequent turning, air loss bed, continue wound care - s/p debridements 07/08, 07/17, 08/05 - s/p wound VAC placement 07/22 + removed 07/25 after it became soiled- no further role for VAC per Surgery - continue wet to dry dressings, periodic Surgery input # atrial flutter/fib - LVEF >70% - continue Toprol XL for rate control - continue amiodarone for rhythm contrl - continue AC with Eliquis # episode of SVT vs atrial tachycardia 07/26 - HR improved with IV Lopressor, finished loading dose of amiodarone and started on amiodarone 200 mg by mouth daily on 08/07, continue Toprol XL # acute blood loss anemia - resolved, was attributed to blood loss at site of decub ulcer, patient received 2 unit of packed RBC - continue ferrous sulfate b.i.d. - H/H stable, periodic check- today's stable # traumatic SAH - CT brain 06/26: New small areas of extra-axial hemorrhage adjacent to the left posterior parietal lobe, bilateral occipital lobes and in the occipital horns of both lateral ventricles, repeat CT 06/28 unchanged - seen by Neuro; AC was held for two weeks - no headache, no dizziness; no other complications # acute hypoxic respiratory failure due to PNA - resolved; finished 10d of ABX; back on room air # urinary retention - failed voiding trial x2; continue tamsulosin and finasteride; seen by urology, continue Lemus upon discharge; outpatient urology follow up # hyponatremia - resolved; s/p urea; cortisol, TSH WNL # mechanical fall - difficulty ambulating; awaiting SNF placement, PT has been working with him # generalized weakness - 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 but not clinically NPH per Neurology # incidental 1.3cm pancreatic lesions - may reflect adjacent pancreatic cysts, outpt MRI/MRCP # DM2 - continue basal-bolus insulin + MTF [increase sliding scale to cover daytime hyperglycemia] # HTN - stable blood pressures, continue metoprolol; losartan and hydralazine discontinued due to soft blood pressures # HLD - statin # bilateral eye dryness - clear tearing, no erythema or pain or vision change - artificial tear drops # rash - Bendaryl cream, hydrocortisone # VTE ppx: Eliquis # dispo: awaiting placement LTC In my clinical judgment, the patient requires continued inpatient hos pitalization for the following reasons: safe placement Time Spent With Patient Time: Total time managing care of this patient today ___27_ minutes. Quality Stroke Does the patient have a stroke diagnosis?: No VTE Prior VTE?: No VTE Risk Level:: Medical - moderate - high VTE Device Contraindication: Treatment Not Indicated VTE Drug Contraindication: N/A - Med Ordered
[2022-10-15] MEDS: Insulin Lispro 100 UNIT/ML 3 ML VIAL SUBCUT ×2 (11:58→17:10)
[2022-10-15 15:35] VITALS: BP 130/57; PULSE 82; RESP 18; TEMP 36.5; O2SAT 97
[2022-10-15 16:18] LABS: Glucose, Whole Blood 191 mg/dL (60-115)
[2022-10-15] MEDS: Acetaminophen 325 MG TABLET 650 MG PO (17:09)
[2022-10-15 19:44] VITALS: BP 121/59; PULSE 82; RESP 17; TEMP 36.3; O2SAT 96
[2022-10-15] MEDS: Benzocaine 20 % Oral Gel 9 GM TUBE 1 APPL MUCOUS MEM (19:57)
[2022-10-15 20:45] LABS: Glucose, Whole Blood 115 mg/dL (60-115)
[2022-10-16] MEDS: Acetaminophen 325 MG TABLET 650 MG PO ×2 (02:06→16:59)
[2022-10-16] MEDS: guaiFENesin 100 MG/5 ML LIQUID PO (02:06)
[2022-10-16] MEDS: Throat Lozenge, Medicated LOZENGE 1 LOZENGE MUCOUS MEM (02:14)
[2022-10-16 03:18] VITALS: BP 126/60; PULSE 72; RESP 18; TEMP 36.4; O2SAT 97
[2022-10-16 07:08] VITALS: BP 125/56; PULSE 69; RESP 16; TEMP 36.8; O2SAT 98
[2022-10-16 07:43] LABS: Glucose, Whole Blood 82 mg/dL (60-115)
[2022-10-16] MEDS: polyethylene glycoL 3350 17 GM POWD.PACK PO (07:55)
[2022-10-16] MEDS: metFORMIN HCl 850 MG TABLET PO ×2 (07:55→16:59)
[2022-10-16] MEDS: Tamsulosin HCL 0.4 MG CAPSULE 0.8 MG PO (07:55)
[2022-10-16] MEDS: Amiodarone HCL 200 MG TABLET PO (07:55)
[2022-10-16] MEDS: Metoprolol Succinate ER 100 MG TAB.ER.24H PO (07:55)
[2022-10-16] MEDS: Ferrous Sulfate 324 MG TABLET.DR PO ×2 (07:55→16:59)
[2022-10-16] MEDS: Apixaban 5 MG TABLET PO ×2 (07:56→20:43)
[2022-10-16] MEDS: Insulin Glargine,Hum.rec.anlog 100 UNIT/ML 10 ML VIAL 25 UNIT SUBCUT (07:56)
[2022-10-16] MEDS: Hydrocortisone 1 % Cream 28.35 GM TUBE 1 APPL TOPICAL ×2 (08:04→20:43)
[2022-10-16 11:33] LABS: Glucose, Whole Blood 156 mg/dL (60-115)
--- NOTE | 2022-10-16 12:23 | HO.PM.IMPN ---
Subjective Subjective Date of Service: 10/16/22 Interval History: No acute issues overnight Review of Systems denies chest pain Denies shortness of breath Denies nausea vomiting diarrhea Physical Exam Vital Signs: Vital Signs: Last Vital Signs Temp 98.3 F 10/16/22 07:08 Pulse 69 10/16/22 07:08 Resp 16 10/16/22 07:08 BP 125/56 L 10/16/22 07:08 Pulse Ox 98 10/16/22 07:08 O2 Del Method 10/16/22 07:08 O2 Flow Rate 2 09/04/22 12:48 BMI result Body Mass Index 26.6 Const: Other: awake alert no acute distress Resp: Other: clear to auscultation bilaterally no rales rhonchi or wheezes Cardio: Other: soft nontender nondistended normoactive bowel sounds GI: Other: soft nontender nondistended normoactive bowel sounds Extrem: Other: no edema bilaterally Objective Data Active Medications Acetaminophen (Acetaminophen 325 Mg Tablet) 650 mg PO Q6H PRN PRN Reason: Pain, Mild (Pain Scale 1-3) Last Admin: 10/16/22 02:06 Dose: 650 mg Documented By: ADRIANA Amiodarone HCl (Amiodarone Hcl 200 Mg Tablet) 200 mg PO DAILY [facility] Last Admin: 10/16/22 07:55 Dose: 200 mg Documented By: ADAN Apixaban (Apixaban 5 Mg Tablet) 5 mg PO BID [facility] Last Admin: 10/16/22 07:56 Dose: 5 mg Documented By: ADAN Artificial Tears (Artificial Tears 15 Ml Drops) 1 drop EYE-BOTH Q4H PRN PRN Reason: tearin Last Admin: 10/02/22 08:57 Dose: 1 drop Documented By: KHURRAM Benzocaine (Benzocaine 20 % Oral Gel 9 Gm Tube) 1 appl MUCOUS MEM QID PRN; Protocol PRN Reason: tooth ache Last Admin: 10/15/22 19:57 Dose: 1 appl Documented By: ADRIANA Benzocaine (Throat Lozenge, Medicated Lozenge) 1 lozenge MUCOUS MEM Q2H PRN PRN Reason: Sore Throat Last Admin: 10/16/22 02:14 Dose: 1 lozenge Documented By: ADRIANA Ferrous Sulfate (Ferrous Sulfate 324 Mg Tablet.Dr) 324 mg PO BIDWM [facility] Last Admin: 10/16/22 07:55 Dose: 324 mg Documented By: ADAN Glucose (Glucose Gel 15 Gm Gel..Gram.) 15 gm PO Q15M PRN; Protocol PRN Reason: per Hypoglycemia Standing Ord. Guaifenesin (Guaifenesin 100 Mg/5 Ml Liquid) 5 ml PO Q6H PRN PRN Reason: Cough Last Admin: 10/16/22 02:06 Dose: 5 ml Documented By: ADRIANA Hydrocortisone (Hydrocortisone 1 % Cream 28.35 Gm Tube) 1 appl TOPICAL BID [facility]; Protocol Last Admin: 10/16/22 08:04 Dose: 1 appl Documented By: ADAN Dextrose (D10) 250 mls @ 750 mls/hr IV Q15M PRN; Protocol PRN Reason: per Hypoglycemia Standing Ord. Insulin Glargine (Insulin Glargine,Hum.Rec.Anlog 100 Unit/Ml 10 Ml Vial) 25 unit SUBCUT DAILY@0730 [facility] Last Admin: 10/16/22 07:56 Dose: 25 unit Documented By: ADAN Insulin Human Lispro (Insulin Lispro 100 Unit/Ml 3 Ml Vial) 0 unit SUBCUT QIDACHS [facility]; Protocol Last Admin: 10/16/22 07:57 Dose: Not Given Documented By: ADAN Non-Admin Reason: No Insulin Coverage Metformin HCl (Metformin Hcl 850 Mg Tablet) 850 mg PO BIDWM [facility] Last Admin: 10/16/22 07:55 Dose: 850 mg Documented By: ADAN Metoprolol Succinate (Metoprolol Succinate Er 100 Mg Tab.Er.24h) 100 mg PO DAILY [facility] Last Admin: 10/16/22 07:55 Dose: 100 mg Documented By: ADAN Polyethylene Glycol (Polyethylene Glycol 3350 17 Gm Powd.Pack) 17 gm PO DAILY [facility] Last Admin: 10/16/22 07:55 Dose: 17 gm Documented By: ADAN Sodium Hypochlorite (Sodium Hypochlorite 0.25% 473 Ml Solution) 1 appl TOPICAL BID [facility] Last Admin: 10/16/22 08:04 Dose: 1 appl Documented By: ADAN Tamsulosin HCl (Tamsulosin Hcl 0.4 Mg Capsule) 0.8 mg PO DAILY [facility] Last Admin: 10/16/22 07:55 Dose: 0.8 mg Documented By: ADAN Zinc Acetate/Diphenhydramine (Diphenhydramine Hcl 2 % Cream 28 Gm Tube) 1 appl TOPICAL QID PRN; Protocol PRN Reason: itching Labs 10/05/22 08:08 10/14/22 08:33 Labs: Laboratory Results - last 24 hr 10/15/22 10/15/22 10/16/22 16:07 20:25 07:13 POC Glucose 191 H 115 82 10/16/22 11:09 POC Glucose 156 H Assessment and Plan (1) Decubitus ulcer of sacral region, unstageable: Status: Acute [facility] d[facility][id number] 74yo M with DM2, HTN, HLD, chronic venous stasis dermatitis presented with mechanical fall, admitted for hypoxia due to PNA and now awaiting safe placement 1. UTI - completed 5d ABX 2.Cough - resolved 3.Toothache - benzocaine gel 4.Sacral decubitus ulcer - unstageable, necrotic 10cm x10 cm with 4 cm depth - frequent turning, air loss bed, continue wound care - s/p debridements 07/08, 07/17, 08/05 - s/p wound VAC placement 07/22 + removed 07/25 after it became soiled- no further role for VAC per Surgery - continue wet to dry dressings, periodic Surgery input 5.Atrial flutter/fib - LVEF >70% - continue Toprol XL for rate control - continue amiodarone for rhythm contrl - continue AC with Eliquis 6.Episode of SVT vs atrial tachycardia 07/26 - HR improved with IV Lopressor, finished loading dose of amiodarone and started on amiodarone 200 mg by mouth daily on 08/07, continue Toprol XL 7.Acute blood loss anemia - resolved, was attributed to blood loss at site of decub ulcer, patient received 2 unit of packed RBC - continue ferrous sulfate b.i.d. - H/H stable, periodic check- today's stable 8.Traumatic SAH - CT brain 06/26: New small areas of extra-axial hemorrhage adjacent to the left posterior parietal lobe, bilateral occipital lobes and in the occipital horns of both lateral ventricles, repeat CT 06/28 unchanged - seen by Neuro; AC was held for two weeks - no headache, no dizziness; no other complications 9.Urinary retention - failed voiding trial x2; continue tamsulosin and finasteride; seen by urology, continue Lemus upon discharge; outpatient urology follow up [place] Full code In my clinical judgment, the patient requires continued inpatient hospitalization for the following reasons: safe placement Time Spent With Patient Time: Total time managing care of this patient today ____ minutes. Quality Stroke Does the patient have a stroke diagnosis?: No VTE Prior VTE?: No VTE Risk Level:: Medical - moderate - high VTE Device Contraindication: Treatment Not Indicated VTE Drug Contraindication: N/A - Med Ordered
[2022-10-16] MEDS: Insulin Lispro 100 UNIT/ML 3 ML VIAL SUBCUT ×3 (12:27→20:43)
--- NOTE | 2022-10-16 12:56 | MHC.CM.PN ---
per rounds pt dc ready bed searh continues
--- NOTE | 2022-10-16 13:08 | MHC.CM.PN ---
CM SPOKE WITH LIAISON FROM [facility]U WELCH. POSSIBLE BED OPPORTUNITY IN [facility] IN [facility]. CLINICAL INFORMATION SENT VIA FAX TO [phone] PER LIAISON REQUEST FOR REVIEW. AWAITING RETURN CALL FROM LIAISON PER REVIEW OF CLINICALS/FINANCIALS. CM WILL CONTINUE TO FOLLOW.
[2022-10-16 15:36] VITALS: BP 131/60; PULSE 73; RESP 18; TEMP 36.6; O2SAT 98
[2022-10-16 17:13] LABS: Glucose, Whole Blood 214 mg/dL (60-115)
[2022-10-16 19:15] VITALS: BP 117/57; PULSE 77; RESP 16; TEMP 36; O2SAT 97
[2022-10-16 20:12] LABS: Glucose, Whole Blood 189 mg/dL (60-115)
[2022-10-17 03:56] VITALS: BP 141/65; PULSE 72; RESP 18; TEMP 36.2; O2SAT 97
[2022-10-17 07:44] VITALS: BP 133/67; PULSE 70; RESP 16; TEMP 36.2; O2SAT 98
[2022-10-17 07:54] LABS: Glucose, Whole Blood 81 mg/dL (60-115)
[2022-10-17] MEDS: Tamsulosin HCL 0.4 MG CAPSULE 0.8 MG PO (08:28)
[2022-10-17] MEDS: metFORMIN HCl 850 MG TABLET PO ×2 (08:29→17:42)
[2022-10-17] MEDS: Amiodarone HCL 200 MG TABLET PO (08:29)
[2022-10-17] MEDS: Apixaban 5 MG TABLET PO ×2 (08:29→21:04)
[2022-10-17] MEDS: Ferrous Sulfate 324 MG TABLET.DR PO ×2 (08:29→17:42)
[2022-10-17] MEDS: Metoprolol Succinate ER 100 MG TAB.ER.24H PO (08:29)
[2022-10-17] MEDS: polyethylene glycoL 3350 17 GM POWD.PACK PO (08:29)
[2022-10-17] MEDS: Insulin Glargine,Hum.rec.anlog 100 UNIT/ML 10 ML VIAL 25 UNIT SUBCUT (08:34)
[2022-10-17 11:46] LABS: Glucose, Whole Blood 179 mg/dL (60-115)
[2022-10-17] MEDS: Insulin Lispro 100 UNIT/ML 3 ML VIAL SUBCUT ×3 (11:55→21:04)
[2022-10-17] MEDS: Hydrocortisone 1 % Cream 28.35 GM TUBE 1 APPL TOPICAL ×2 (12:55→21:05)
--- NOTE | 2022-10-17 13:08 | HO.PM.IMPN ---
Subjective Subjective Date of Service: 10/17/22 Interval History: No acute issues overnight Review of Systems denies chest pain Denies shortness of breath Denies nausea vomiting diarrhea Physical Exam Vital Signs: Vital Signs: Last Vital Signs Temp 97.1 F 10/17/22 07:44 Pulse 70 10/17/22 07:44 Resp 16 10/17/22 07:44 BP 133/67 10/17/22 07:44 Pulse Ox 98 10/17/22 07:44 O2 Del Method 10/17/22 07:44 O2 Flow Rate 2 09/04/22 12:48 BMI result Body Mass Index 26.6 Const: Other: awake alert no acute distress Resp: Other: clear to auscultation bilaterally no rales rhonchi or wheezes Cardio: Other: soft nontender nondistended normoactive bowel sounds GI: Other: soft nontender nondistended normoactive bowel sounds Extrem: Other: no edema bilaterally Objective Data Active Medications Acetaminophen (Acetaminophen 325 Mg Tablet) 650 mg PO Q6H PRN PRN Reason: Pain, Mild (Pain Scale 1-3) Last Admin: 10/16/22 16:59 Dose: 650 mg Documented By: ADAN Amiodarone HCl (Amiodarone Hcl 200 Mg Tablet) 200 mg PO DAILY [facility] Last Admin: 10/17/22 08:29 Dose: 200 mg Documented By: SAMMIE Apixaban (Apixaban 5 Mg Tablet) 5 mg PO BID [facility] Last Admin: 10/17/22 08:29 Dose: 5 mg Documented By: SAMMIE Artificial Tears (Artificial Tears 15 Ml Drops) 1 drop EYE-BOTH Q4H PRN PRN Reason: tearin Last Admin: 10/02/22 08:57 Dose: 1 drop Documented By: KHURRAM Benzocaine (Benzocaine 20 % Oral Gel 9 Gm Tube) 1 appl MUCOUS MEM QID PRN; Protocol PRN Reason: tooth ache Last Admin: 10/15/22 19:57 Dose: 1 appl Documented By: ADRIANA Benzocaine (Throat Lozenge, Medicated Lozenge) 1 lozenge MUCOUS MEM Q2H PRN PRN Reason: Sore Throat Last Admin: 10/16/22 02:14 Dose: 1 lozenge Documented By: ADRIANA Ferrous Sulfate (Ferrous Sulfate 324 Mg Tablet.Dr) 324 mg PO BIDWM [facility] Last Admin: 10/17/22 08:29 Dose: 324 mg Documented By: SAMMIE Glucose (Glucose Gel 15 Gm Gel..Gram.) 15 gm PO Q15M PRN; Protocol PRN Reason: per Hypoglycemia Standing Ord. Guaifenesin (Guaifenesin 100 Mg/5 Ml Liquid) 5 ml PO Q6H PRN PRN Reason: Cough Last Admin: 10/16/22 02:06 Dose: 5 ml Documented By: ADRIANA Hydrocortisone (Hydrocortisone 1 % Cream 28.35 Gm Tube) 1 appl TOPICAL BID [facility]; Protocol Last Admin: 10/17/22 12:55 Dose: 1 appl Documented By: SAMMIE Dextrose (D10) 250 mls @ 750 mls/hr IV Q15M PRN; Protocol PRN Reason: per Hypoglycemia Standing Ord. Insulin Glargine (Insulin Glargine,Hum.Rec.Anlog 100 Unit/Ml 10 Ml Vial) 25 unit SUBCUT DAILY@0730 [facility] Last Admin: 10/17/22 08:34 Dose: 25 unit Documented By: SAMMIE Insulin Human Lispro (Insulin Lispro 100 Unit/Ml 3 Ml Vial) 0 unit SUBCUT QIDACHS [facility]; Protocol Last Admin: 10/17/22 11:55 Dose: 4 unit Documented By: SAMMIE Metformin HCl (Metformin Hcl 850 Mg Tablet) 850 mg PO BIDWM [facility] Last Admin: 10/17/22 08:29 Dose: 850 mg Documented By: SAMMIE Metoprolol Succinate (Metoprolol Succinate Er 100 Mg Tab.Er.24h) 100 mg PO DAILY [facility] Last Admin: 10/17/22 08:29 Dose: 100 mg Documented By: SAMMIE Polyethylene Glycol (Polyethylene Glycol 3350 17 Gm Powd.Pack) 17 gm PO DAILY [facility] Last Admin: 10/17/22 08:29 Dose: 17 gm Documented By: SAMMIE Sodium Hypochlorite (Sodium Hypochlorite 0.25% 473 Ml Solution) 1 appl TOPICAL BID [facility] Last Admin: 10/17/22 12:55 Dose: 1 appl Documented By: SAMMIE Tamsulosin HCl (Tamsulosin Hcl 0.4 Mg Capsule) 0.8 mg PO DAILY [facility] Last Admin: 10/17/22 08:28 Dose: 0.8 mg Documented By: HO.GRAZIC Zinc Acetate/Diphenhydramine (Diphenhydramine Hcl 2 % Cream 28 Gm Tube) 1 appl TOPICAL QID PRN; Protocol PRN Reason: itching Labs 10/05/22 08:08 10/14/22 08:33 Labs: Laboratory Results - last 24 hr 10/16/22 10/16/22 10/17/22 16:52 19:20 07:38 POC Glucose 214 H 189 H 81 10/17/22 11:38 POC Glucose 179 H Assessment and Plan (1) Decubitus ulcer of sacral region, unstageable: Status: Acute Plan 74yo M with DM2, HTN, HLD, chronic venous stasis dermatitis presented with mechanical fall, admitted for hypoxia due to PNA and now awaiting safe placement 1. UTI - completed 5d ABX 2.Cough - resolved 3.Toothache - benzocaine gel 4.Sacral decubitus ulcer - unstageable, necrotic 10cm x10 cm with 4 cm depth - frequent turning, air loss bed, continue wound care - s/p debridements 07/08, 07/17, 08/05 - s/p wound VAC placement 07/22 + removed 07/25 after it became soiled- no further role for VAC per Surgery - continue wet to dry dressings, periodic Surgery input 5.Atrial flutter/fib - LVEF >70% - continue Toprol XL for rate control - continue amiodarone for rhythm contrl - continue AC with Eliquis 6.Episode of SVT vs atrial tachycardia 07/26 - HR improved with IV Lopressor, finished loading dose of amiodarone and started on amiodarone 200 mg by mouth daily on 08/07, continue Toprol XL 7.Acute blood loss anemia - resolved, was attributed to blood loss at site of decub ulcer, patient received 2 unit of packed RBC - continue ferrous sulfate b.i.d. - H/H stable, periodic check- today's stable 8.Traumatic SAH - CT brain 06/26: New small areas of extra-axial hemorrhage adjacent to the left posterior parietal lobe, bilateral occipital lobes and in the occipital horns of both lateral ventricles, repeat CT 06/28 unchanged - seen by Neuro; AC was held for two weeks - no headache, no dizziness; no other complications 9.Urinary retention - failed voiding trial x2; continue tamsulosin and finasteride; seen by urology, continue Lemus upon discharge; outpatient urology follow up [place] Full code In my clinical judgment, the patient requires continued inpatient hospitalization for the following reasons: safe placement Time Spent With Patient Time: Total time managing care of this patient today ____ minutes. Quality Stroke Does the patient have a stroke diagnosis?: No VTE Prior VTE?: No VTE Risk Level:: Medical - moderate - high VTE Device Contraindication: Treatment Not Indicated VTE Drug Contraindication: N/A - Med Ordered
[2022-10-17] MEDS: Acetaminophen 325 MG TABLET 650 MG PO (14:45)
[2022-10-17 15:07] VITALS: BP 100/51; PULSE 83; RESP 18; TEMP 36.6; O2SAT 93
[2022-10-17 16:28] LABS: Glucose, Whole Blood 139 mg/dL (60-115)
[2022-10-17 20:00] VITALS: BP 97/49; PULSE 77; RESP 17; TEMP 36; O2SAT 98
[2022-10-17 21:00] LABS: Glucose, Whole Blood 168 mg/dL (60-115)
[2022-10-18 03:18] VITALS: BP 141/67; PULSE 74; RESP 17; TEMP 36.2; O2SAT 98
[2022-10-18 08:00] VITALS: BP 127/60; PULSE 80; RESP 19; TEMP 36.4; O2SAT 97
[2022-10-18 08:06] LABS: Glucose, Whole Blood 113 mg/dL (60-115)
[2022-10-18] MEDS: Tamsulosin HCL 0.4 MG CAPSULE 0.8 MG PO (08:15)
[2022-10-18] MEDS: metFORMIN HCl 850 MG TABLET PO ×2 (08:16→16:35)
[2022-10-18] MEDS: Amiodarone HCL 200 MG TABLET PO (08:16)
[2022-10-18] MEDS: Apixaban 5 MG TABLET PO ×2 (08:16→21:06)
[2022-10-18] MEDS: Metoprolol Succinate ER 100 MG TAB.ER.24H PO (08:16)
[2022-10-18] MEDS: Insulin Glargine,Hum.rec.anlog 100 UNIT/ML 10 ML VIAL 25 UNIT SUBCUT (08:16)
[2022-10-18] MEDS: Insulin Lispro 100 UNIT/ML 3 ML VIAL SUBCUT ×4 (08:16→21:07)
[2022-10-18] MEDS: polyethylene glycoL 3350 17 GM POWD.PACK PO (09:46)
[2022-10-18 11:24] LABS: Glucose, Whole Blood 143 mg/dL (60-115)
--- NOTE | 2022-10-18 12:38 | HO.PM.IMPN ---
Subjective Subjective Date of Service: 10/18/22 Interval History: No acute issues overnight Review of Systems denies chest pain Denies shortness of breath Denies nausea vomiting diarrhea Physical Exam Vital Signs: Vital Signs: Last Vital Signs Temp 97.6 F 10/18/22 08:00 Pulse 80 10/18/22 08:00 Resp 19 10/18/22 08:00 BP 127/60 10/18/22 08:00 Pulse Ox 97 10/18/22 08:00 O2 Del Method 10/18/22 08:00 O2 Flow Rate 2 09/04/22 12:48 BMI result Body Mass Index 26.6 Const: Other: awake alert no acute distress Resp: Other: clear to auscultation bilaterally no rales rhonchi or wheezes Cardio: Other: soft nontender nondistended normoactive bowel sounds GI: Other: soft nontender nondistended normoactive bowel sounds Extrem: Other: no edema bilaterally Objective Data Active Medications Acetaminophen (Acetaminophen 325 Mg Tablet) 650 mg PO Q6H PRN PRN Reason: Pain, Mild (Pain Scale 1-3) Last Admin: 10/17/22 14:45 Dose: 650 mg Documented By: SAMMIE Amiodarone HCl (Amiodarone Hcl 200 Mg Tablet) 200 mg PO DAILY [facility] Last Admin: 10/18/22 08:16 Dose: 200 mg Documented By: SAMMIE Apixaban (Apixaban 5 Mg Tablet) 5 mg PO BID [facility] Last Admin: 10/18/22 08:16 Dose: 5 mg Documented By: SAMMIE Artificial Tears (Artificial Tears 15 Ml Drops) 1 drop EYE-BOTH Q4H PRN PRN Reason: tearin Last Admin: 10/02/22 08:57 Dose: 1 drop Documented By: KHURRAM Benzocaine (Benzocaine 20 % Oral Gel 9 Gm Tube) 1 appl MUCOUS MEM QID PRN; Protocol PRN Reason: tooth ache Last Admin: 10/15/22 19:57 Dose: 1 appl Documented By: ADRIANA Benzocaine (Throat Lozenge, Medicated Lozenge) 1 lozenge MUCOUS MEM Q2H PRN PRN Reason: Sore Throat Last Admin: 10/16/22 02:14 Dose: 1 lozenge Documented By: ADRIANA Glucose (Glucose Gel 15 Gm Gel..Gram.) 15 gm PO Q15M PRN; Protocol PRN Reason: per Hypoglycemia Standing Ord. Guaifenesin (Guaifenesin 100 Mg/5 Ml Liquid) 5 ml PO Q6H PRN PRN Reason: Cough Last Admin: 10/16/22 02:06 Dose: 5 ml Documented By: ADRIANA Hydrocortisone (Hydrocortisone 1 % Cream 28.35 Gm Tube) 1 appl TOPICAL BID [facility]; Protocol Last Admin: 10/17/22 21:05 Dose: 1 appl Documented By: GIULIANO Dextrose (D10) 250 mls @ 750 mls/hr IV Q15M PRN; Protocol PRN Reason: per Hypoglycemia Standing Ord. Insulin Glargine (Insulin Glargine,Hum.Rec.Anlog 100 Unit/Ml 10 Ml Vial) 25 unit SUBCUT DAILY@0730 [facility] Last Admin: 10/18/22 08:16 Dose: 25 unit Documented By: SAMMIE Insulin Human Lispro (Insulin Lispro 100 Unit/Ml 3 Ml Vial) 0 unit SUBCUT QIDACHS [facility]; Protocol Last Admin: 10/18/22 11:44 Dose: 2 unit Documented By: SAMMIE Metformin HCl (Metformin Hcl 850 Mg Tablet) 850 mg PO BIDWM [facility] Last Admin: 10/18/22 08:16 Dose: 850 mg Documented By: SAMMIE Metoprolol Succinate (Metoprolol Succinate Er 100 Mg Tab.Er.24h) 100 mg PO DAILY [facility] Last Admin: 10/18/22 08:16 Dose: 100 mg Documented By: SAMMIE Polyethylene Glycol (Polyethylene Glycol 3350 17 Gm Powd.Pack) 17 gm PO DAILY [facility] Last Admin: 10/18/22 09:46 Dose: 17 gm Documented By: SAMMEI Sodium Hypochlorite (Sodium Hypochlorite 0.25% 473 Ml Solution) 1 appl TOPICAL BID [facility] Last Admin: 10/17/22 21:05 Dose: 1 appl Documented By: GIULIANO Tamsulosin HCl (Tamsulosin Hcl 0.4 Mg Capsule) 0.8 mg PO DAILY [facility] Last Admin: 10/18/22 08:15 Dose: 0.8 mg Documented By: SAMMIE Zinc Acetate/Diphenhydramine (Diphenhydramine Hcl 2 % Cream 28 Gm Tube) 1 appl TOPICAL QID PRN; Protocol PRN Reason: itching Labs 10/05/22 08:08 10/14/22 08:33 Labs: Laboratory Results - last 24 hr 10/17/22 10/17/22 10/18/22 16:21 20:57 07:59 POC Glucose 139 H 168 H 113 10/18/22 11:19 POC Glucose 143 H Assessment and Plan (1) Decubitus ulcer of sacral region, unstageable: Status: Acute Plan 74yo M with DM2, HTN, HLD, chronic venous stasis dermatitis presented with mechanical fall, admitted for hypoxia due to PNA and now awaiting safe placement 1. UTI - completed 5d ABX 2.Cough - resolved 3.Toothache - benzocaine gel 4.Sacral decubitus ulcer - unstageable, necrotic 10cm x10 cm with 4 cm depth - frequent turning, air loss bed, continue wound care - s/p debridements 07/08, 07/17, 08/05 - s/p wound VAC placement 07/22 + removed 07/25 after it became soiled- no further role for VAC per Surgery - continue wet to dry dressings, periodic Surgery input 5.Atrial flutter/fib - LVEF >70% - continue Toprol XL for rate control - continue amiodarone for rhythm contrl - continue AC with Eliquis 6.Episode of SVT vs atrial tachycardia 07/26 - HR improved with IV Lopressor, finished loading dose of amiodarone and started on amiodarone 200 mg by mouth daily on 08/07, continue Toprol XL 7.Acute blood loss anemia - resolved, was attributed to blood loss at site of decub ulcer, patient received 2 unit of packed RBC - continue ferrous sulfate b.i.d. - H/H stable, periodic check- today's stable 8.Traumatic SAH - CT brain 06/26: New small areas of extra-axial hemorrhage adjacent to the left posterior parietal lobe, bilateral occipital lobes and in the occipital horns of both lateral ventricles, repeat CT 06/28 unchanged - seen by Neuro; AC was held for two weeks - no headache, no dizziness; no other complications 9.Urinary retention - failed voiding trial x2; continue tamsulosin and finasteride; seen by urology, continue Lemus upon discharge; outpatient urology follow up [place] Full code In my clinical judgment, the patient requires continued inpatient hospitalization for the following reasons: safe placement Time Spent With Patient Time: Total time managing care of this patient today ____ minutes. Quality Stroke Does the patient have a stroke diagnosis?: No VTE Prior VTE?: No VTE Risk Level:: Medical - moderate - high VTE Device Contraindication: Treatment Not Indicated VTE Drug Contraindication: N/A - Med Ordered
[2022-10-18] MEDS: Acetaminophen 325 MG TABLET 650 MG PO ×2 (13:28→21:06)
--- NOTE | 2022-10-18 14:00 | MHC.CM.PN ---
EMR REVIEWED. KP SPOKE WITH LIAISON OFFICER REGINA BAUTISTA AT [facility]. PER REGINA, SHE IS WORKING WITH PT COUSIN/HCP [facility] ON FINANCIALS FOR A POSSIBLE PLACEMENT THERE. CLINICAL PAPERWORK FAXED TO [phone]. KP WILL CONTINUE TO FOLLOW UP WITH THIS CENTER REGARDING POSSIBLE PLACEMENT. [facility] AWARE AND IN AGREEMENT.
[2022-10-18] MEDS: Hydrocortisone 1 % Cream 28.35 GM TUBE 1 APPL TOPICAL ×2 (14:13→21:11)
[2022-10-18 15:55] VITALS: BP 104/48; PULSE 73; RESP 18; TEMP 36.4; O2SAT 96
[2022-10-18 16:12] LABS: Glucose, Whole Blood 173 mg/dL (60-115)
[2022-10-18 20:00] VITALS: BP 121/59; PULSE 72; RESP 17; TEMP 36.5; O2SAT 97
[2022-10-18 20:29] LABS: Glucose, Whole Blood 158 mg/dL (60-115)
[2022-10-19 03:53] VITALS: BP 121/60; PULSE 69; RESP 18; TEMP 36.4; O2SAT 98
[2022-10-19 07:46] VITALS: BP 152/86; PULSE 75; RESP 18; TEMP 36.2; O2SAT 98
[2022-10-19 07:52] LABS: Glucose, Whole Blood 102 mg/dL (60-115)
[2022-10-19] MEDS: Metoprolol Succinate ER 100 MG TAB.ER.24H PO (08:05)
[2022-10-19] MEDS: metFORMIN HCl 850 MG TABLET PO ×2 (08:05→16:48)
[2022-10-19] MEDS: Amiodarone HCL 200 MG TABLET PO (08:05)
[2022-10-19] MEDS: Apixaban 5 MG TABLET PO ×2 (08:05→21:21)
[2022-10-19] MEDS: Insulin Glargine,Hum.rec.anlog 100 UNIT/ML 10 ML VIAL 25 UNIT SUBCUT (08:05)
[2022-10-19] MEDS: Tamsulosin HCL 0.4 MG CAPSULE 0.8 MG PO (08:05)
[2022-10-19] MEDS: polyethylene glycoL 3350 17 GM POWD.PACK PO (08:06)
[2022-10-19] MEDS: Hydrocortisone 1 % Cream 28.35 GM TUBE 1 APPL TOPICAL ×2 (08:06→21:25)
--- NOTE | 2022-10-19 10:42 | P.PNIM_ITS ---
Subjective Subjective Date of Service: 10/19/22 Interval History: Spirits good this a.m.. Voices no complaints Review of Systems denies chest pain Denies shortness of breath Denies nausea vomiting diarrhea Physical Exam Vital Signs: Vital Signs: Last Vital Signs Temp 97.1 F 10/19/22 07:46 Pulse 75 10/19/22 07:46 Resp 18 10/19/22 07:46 BP 152/86 H 10/19/22 07:46 Pulse Ox 98 10/19/22 07:46 O2 Del Method 10/19/22 07:46 O2 Flow Rate 2 09/04/22 12:48 BMI result Body Mass Index 26.6 Const: Other: awake alert no acute distress Resp: Other: clear to auscultation bilaterally no rales rhonchi or wheezes Cardio: Other: soft nontender nondistended normoactive bowel sounds GI: Other: soft nontender nondistended normoactive bowel sounds Extrem: Other: no edema bilaterally Objective Data Active Medications Acetaminophen (Acetaminophen 325 Mg Tablet) 650 mg PO Q6H PRN PRN Reason: Pain, Mild (Pain Scale 1-3) Last Admin: 10/18/22 21:06 Dose: 650 mg Documented By: TOM Amiodarone HCl (Amiodarone Hcl 200 Mg Tablet) 200 mg PO DAILY [facility] Last Admin: 10/19/22 08:05 Dose: 200 mg Documented By: OSMEL Apixaban (Apixaban 5 Mg Tablet) 5 mg PO BID [facility] Last Admin: 10/19/22 08:05 Dose: 5 mg Documented By: OSMEL Artificial Tears (Artificial Tears 15 Ml Drops) 1 drop EYE-BOTH Q4H PRN PRN Reason: tearin Last Admin: 10/02/22 08:57 Dose: 1 drop Documented By: KHURRAM Benzocaine (Benzocaine 20 % Oral Gel 9 Gm Tube) 1 appl MUCOUS MEM QID PRN; Protocol PRN Reason: tooth ache Last Admin: 10/15/22 19:57 Dose: 1 appl Documented By: ADRIANA Benzocaine (Throat Lozenge, Medicated Lozenge) 1 lozenge MUCOUS MEM Q2H PRN PRN Reason: Sore Throat Last Admin: 10/16/22 02:14 Dose: 1 lozenge Documented By: ADRIANA Glucose (Glucose Gel 15 Gm Gel..Gram.) 15 gm PO Q15M PRN; Protocol PRN Reason: per Hypoglycemia Standing Ord. Guaifenesin (Guaifenesin 100 Mg/5 Ml Liquid) 5 ml PO Q6H PRN PRN Reason: Cough Last Admin: 10/16/22 02:06 Dose: 5 ml Documented By: ADRIANA Hydrocortisone (Hydrocortisone 1 % Cream 28.35 Gm Tube) 1 appl TOPICAL BID [facility]; Protocol Last Admin: 10/19/22 08:06 Dose: 1 appl Documented By: OSMEL Dextrose (D10) 250 mls @ 750 mls/hr IV Q15M PRN; Protocol PRN Reason: per Hypoglycemia Standing Ord. Insulin Glargine (Insulin Glargine,Hum.Rec.Anlog 100 Unit/Ml 10 Ml Vial) 25 unit SUBCUT DAILY@0730 [facility] Last Admin: 10/19/22 08:05 Dose: 25 unit Documented By: OSMEL Insulin Human Lispro (Insulin Lispro 100 Unit/Ml 3 Ml Vial) 0 unit SUBCUT QIDACHS [facility]; Protocol Last Admin: 10/19/22 08:05 Dose: Not Given Documented By: OSMEL Non-Admin Reason: No Insulin Coverage Metformin HCl (Metformin Hcl 850 Mg Tablet) 850 mg PO BIDWM [facility] Last Admin: 10/19/22 08:05 Dose: 850 mg Documented By: OSMEL Metoprolol Succinate (Metoprolol Succinate Er 100 Mg Tab.Er.24h) 100 mg PO DAILY [facility] Last Admin: 10/19/22 08:05 Dose: 100 mg Documented By: OSMEL Polyethylene Glycol (Polyethylene Glycol 3350 17 Gm Powd.Pack) 17 gm PO DAILY [facility] Last Admin: 10/19/22 08:06 Dose: 17 gm Documented By: OSMEL Sodium Hypochlorite (Sodium Hypochlorite 0.25% 473 Ml Solution) 1 appl TOPICAL BID [facility] Last Admin: 10/19/22 08:06 Dose: 1 appl Documented By: OSMEL Tamsulosin HCl (Tamsulosin Hcl 0.4 Mg Capsule) 0.8 mg PO DAILY [facility] Last Admin: 10/19/22 08:05 Dose: 0.8 mg Documented By: OSMEL Zinc Acetate/Diphenhydramine (Diphenhydramine Hcl 2 % Cream 28 Gm Tube) 1 appl TOPICAL QID PRN; Protocol PRN Reason: itching Labs 10/05/22 08:08 10/14/22 08:33 Labs: Laboratory Results - last 24 hr 10/18/22 10/18/22 10/18/22 11:19 15:58 20:18 POC Glucose 143 H 173 H 158 H 10/19/22 07:44 POC Glucose 102 Assessment and Plan (1) Decubitus ulcer of sacral region, unstageable: Status: Acute Plan 74yo M with DM2, HTN, HLD, chronic venous stasis dermatitis presented with mechanical fall, admitted for hypoxia due to PNA and now awaiting safe placement 1. UTI - completed 5d ABX 2.Cough - resolved 3.Toothache - benzocaine gel 4.Sacral decubitus ulcer - unstageable, necrotic 10cm x10 cm with 4 cm depth - frequent turning, air loss bed, continue wound care - s/p debridements 07/08, 07/17, 08/05 - s/p wound VAC placement 07/22 + removed 07/25 after it became soiled- no further role for VAC per Surgery - continue wet to dry dressings, periodic Surgery input 5.Atrial flutter/fib - LVEF >70% - continue Toprol XL for rate control - continue amiodarone for rhythm contrl - continue AC with Eliquis 6.Episode of SVT vs atrial tachycardia 07/26 - HR improved with IV Lopressor, finished loading dose of amiodarone and started on amiodarone 200 mg by mouth daily on 08/07, continue Toprol XL 7.Acute blood loss anemia - resolved, was attributed to blood loss at site of decub ulcer, patient received 2 unit of packed RBC - continue ferrous sulfate b.i.d. - H/H stable, periodic check- today's stable 8.Traumatic SAH - CT brain 06/26: New small areas of extra-axial hemorrhage adjacent to the left posterior parietal lobe, bilateral occipital lobes and in the occipital horns of both lateral ventricles, repeat CT 06/28 unchanged - seen by Neuro; AC was held for two weeks - no headache, no dizziness; no other complications 9.Urinary retention - failed voiding trial x2; continue tamsulosin and finasteride; seen by urology, continue Lemus upon discharge; outpatient urology follow up [place] Full code In my clinical judgment, the patient requires continued inpatient hospitali zation for the following reasons: safe placement Time Spent With Patient Time: Total time managing care of this patient today ____ minutes. Quality Stroke Does the patient have a stroke diagnosis?: No VTE Prior VTE?: No VTE Risk Level:: Medical - moderate - high VTE Device Contraindication: Treatment Not Indicated VTE Drug Contraindication: N/A - Med Ordered
[2022-10-19 11:25] LABS: Glucose, Whole Blood 209 mg/dL (60-115)
[2022-10-19] MEDS: Insulin Lispro 100 UNIT/ML 3 ML VIAL SUBCUT ×3 (12:16→21:22)
[2022-10-19] MEDS: Acetaminophen 325 MG TABLET 650 MG PO ×2 (15:21→21:22)
[2022-10-19 16:00] VITALS: BP 118/58; PULSE 81; RESP 18; TEMP 36.3; O2SAT 97
[2022-10-19 16:36] LABS: Glucose, Whole Blood 138 mg/dL (60-115)
[2022-10-19] MEDS: Benzocaine 20 % Oral Gel 9 GM TUBE 1 APPL MUCOUS MEM (17:55)
[2022-10-19 20:00] VITALS: BP 116/57; PULSE 76; RESP 18; TEMP 36.3; O2SAT 96
[2022-10-19 20:57] LABS: Glucose, Whole Blood 155 mg/dL (60-115)
[2022-10-20 04:00] VITALS: RESP 18
[2022-10-20 07:47] VITALS: BP 132/62; PULSE 74; RESP 18; TEMP 36.6; O2SAT 96
[2022-10-20 07:52] LABS: Glucose, Whole Blood 108 mg/dL (60-115)
[2022-10-20] MEDS: Tamsulosin HCL 0.4 MG CAPSULE 0.8 MG PO (08:28)
[2022-10-20] MEDS: Metoprolol Succinate ER 100 MG TAB.ER.24H PO (08:28)
[2022-10-20] MEDS: Insulin Glargine,Hum.rec.anlog 100 UNIT/ML 10 ML VIAL 25 UNIT SUBCUT (08:29)
[2022-10-20] MEDS: metFORMIN HCl 850 MG TABLET PO ×2 (08:29→17:03)
[2022-10-20] MEDS: Amiodarone HCL 200 MG TABLET PO (08:29)
[2022-10-20] MEDS: Hydrocortisone 1 % Cream 28.35 GM TUBE 1 APPL TOPICAL ×2 (08:29→20:48)
[2022-10-20] MEDS: polyethylene glycoL 3350 17 GM POWD.PACK PO (08:29)
[2022-10-20] MEDS: Apixaban 5 MG TABLET PO ×2 (08:29→20:44)
--- NOTE | 2022-10-20 10:55 | HO.PM.IMPN ---
Subjective Subjective Date of Service: 10/20/22 Interval History: No acute issues overnight. Spirits good Review of Systems denies chest pain Denies shortness of breath Denies nausea vomiting diarrhea Physical Exam Vital Signs: Vital Signs: Last Vital Signs Temp 97.9 F 10/20/22 07:47 Pulse 74 10/20/22 07:47 Resp 18 10/20/22 07:47 BP 132/62 10/20/22 07:47 Pulse Ox 96 10/20/22 07:47 O2 Del Method 10/20/22 07:47 O2 Flow Rate 2 09/04/22 12:48 BMI result Body Mass Index 26.6 Const: Other: awake alert no acute distress Resp: Other: clear to auscultation bilaterally no rales rhonchi or wheezes Cardio: Other: soft nontender nondistended normoactive bowel sounds GI: Other: soft nontender nondistended normoactive bowel sounds Extrem: Other: no edema bilaterally Objective Data Active Medications Acetaminophen (Acetaminophen 325 Mg Tablet) 650 mg PO Q6H PRN PRN Reason: Pain, Mild (Pain Scale 1-3) Last Admin: 10/19/22 21:22 Dose: 650 mg Documented By: TOM Amiodarone HCl (Amiodarone Hcl 200 Mg Tablet) 200 mg PO DAILY [facility] Last Admin: 10/20/22 08:29 Dose: 200 mg Documented By: OSMEL Apixaban (Apixaban 5 Mg Tablet) 5 mg PO BID [facility] Last Admin: 10/20/22 08:29 Dose: 5 mg Documented By: OSMEL Artificial Tears (Artificial Tears 15 Ml Drops) 1 drop EYE-BOTH Q4H PRN PRN Reason: tearin Last Admin: 10/02/22 08:57 Dose: 1 drop Documented By: KHURRAM Benzocaine (Benzocaine 20 % Oral Gel 9 Gm Tube) 1 appl MUCOUS MEM QID PRN; Protocol PRN Reason: tooth ache Last Admin: 10/19/22 17:55 Dose: 1 appl Documented By: OSMEL Benzocaine (Throat Lozenge, Medicated Lozenge) 1 lozenge MUCOUS MEM Q2H PRN PRN Reason: Sore Throat Last Admin: 10/16/22 02:14 Dose: 1 lozenge Documented By: ADRIANA Glucose (Glucose Gel 15 Gm Gel..Gram.) 15 gm PO Q15M PRN; Protocol PRN Reason: per Hypoglycemia Standing Ord. Guaifenesin (Guaifenesin 100 Mg/5 Ml Liquid) 5 ml PO Q6H PRN PRN Reason: Cough Last Admin: 10/16/22 02:06 Dose: 5 ml Documented By: ADRIANA Hydrocortisone (Hydrocortisone 1 % Cream 28.35 Gm Tube) 1 appl TOPICAL BID [facility]; Protocol Last Admin: 10/20/22 08:29 Dose: 1 appl Documented By: OSMEL Dextrose (D10) 250 mls @ 750 mls/hr IV Q15M PRN; Protocol PRN Reason: per Hypoglycemia Standing Ord. Insulin Glargine (Insulin Glargine,Hum.Rec.Anlog 100 Unit/Ml 10 Ml Vial) 25 unit SUBCUT DAILY@0730 [facility] Last Admin: 10/20/22 08:29 Dose: 25 unit Documented By: OSMEL Insulin Human Lispro (Insulin Lispro 100 Unit/Ml 3 Ml Vial) 0 unit SUBCUT QIDACHS [facility]; Protocol Last Admin: 10/20/22 08:31 Dose: Not Given Documented By: OSMEL Non-Admin Reason: No Insulin Coverage Metformin HCl (Metformin Hcl 850 Mg Tablet) 850 mg PO BIDWM [facility] Last Admin: 10/20/22 08:29 Dose: 850 mg Documented By: OSMEL Metoprolol Succinate (Metoprolol Succinate Er 100 Mg Tab.Er.24h) 100 mg PO DAILY [facility] Last Admin: 10/20/22 08:28 Dose: 100 mg Documented By: OSMEL Polyethylene Glycol (Polyethylene Glycol 3350 17 Gm Powd.Pack) 17 gm PO DAILY [facility] Last Admin: 10/20/22 08:29 Dose: 17 gm Documented By: OSMEL Sodium Hypochlorite (Sodium Hypochlorite 0.25% 473 Ml Solution) 1 appl TOPICAL BID [facility] Last Admin: 10/20/22 08:29 Dose: 1 appl Documented By: OSMEL Tamsulosin HCl (Tamsulosin Hcl 0.4 Mg Capsule) 0.8 mg PO DAILY [facility] Last Admin: 10/20/22 08:28 Dose: 0.8 mg Documented By: OSMEL Zinc Acetate/Diphenhydramine (Diphenhydramine Hcl 2 % Cream 28 Gm Tube) 1 appl TOPICAL QID PRN; Protocol PRN Reason: itching Labs 10/05/22 08:08 10/14/22 08:33 Labs: Laboratory Results - last 24 hr 10/19/22 10/19/22 10/19/22 11:09 16:19 20:51 POC Glucose 209 H 138 H 155 H 10/20/22 07:45 POC Glucose 108 Assessment and Plan (1) Decubitus ulcer of sacral region, unstageable: Status: Acute Plan 74yo M with DM2, HTN, HLD, chronic venous stasis dermatitis presented with mechanical fall, admitted for hypoxia due to PNA and now awaiting safe placement 1. UTI - completed 5d ABX 2.Cough - resolved 3.Toothache - benzocaine gel 4.Sacral decubitus ulcer - unstageable, necrotic 10cm x10 cm with 4 cm depth - frequent turning, air loss bed, continue wound care - s/p debridements 07/08, 07/17, 08/05 - s/p wound VAC placement 07/22 + removed 07/25 after it became soiled- no further role for VAC per Surgery - continue wet to dry dressings, periodic Surgery input 5.Atrial flutter/fib - LVEF >70% - continue Toprol XL for rate control - continue amiodarone for rhythm contrl - continue AC with Eliquis 6.Episode of SVT vs atrial tachycardia 07/26 - HR improved with IV Lopressor, finished loading dose of amiodarone and started on amiodarone 200 mg by mouth daily on 08/07, continue Toprol XL 7.Acute blood loss anemia - resolved, was attributed to blood loss at site of decub ulcer, patient received 2 unit of packed RBC - continue ferrous sulfate b.i.d. - H/H stable, periodic check- today's stable 8.Traumatic SAH - CT brain 06/26: New small areas of extra-axial hemorrhage adjacent to the left posterior parietal lobe, bilateral occipital lobes and in the occipital horns of both lateral ventricles, repeat CT 06/28 unchanged - seen by Neuro; AC was held for two weeks - no headache, no dizziness; no other complications 9.Urinary retention - failed voiding trial x2; continue tamsulosin and finasteride; seen by urology, continue Lemus upon discharge; outpatient urology follow up [place] Full code In my clinical judgment, the patient requires continued inpatient hospitalization for the following reasons: safe placement Time Spent With Patient Time: Total time managing care of this patient today ____ minutes. Quality Stroke Does the patient have a stroke diagnosis?: No VTE Prior VTE?: No VTE Risk Level:: Medical - moderate - high VTE Device Contraindication: Treatment Not Indicated VTE Drug Contraindication: N/A - Med Ordered
[2022-10-20 12:06] LABS: Glucose, Whole Blood 201 mg/dL (60-115)
[2022-10-20] MEDS: Insulin Lispro 100 UNIT/ML 3 ML VIAL SUBCUT ×3 (12:08→20:44)
[2022-10-20] MEDS: Acetaminophen 325 MG TABLET 650 MG PO (15:58)
[2022-10-20 16:00] VITALS: BP 114/58; PULSE 84; RESP 18; TEMP 36.4; O2SAT 94
[2022-10-20 16:28] LABS: Glucose, Whole Blood 145 mg/dL (60-115)
[2022-10-20 20:00] VITALS: BP 121/54; PULSE 82; RESP 18; TEMP 36.3; O2SAT 96
[2022-10-20 20:31] LABS: Glucose, Whole Blood 242 mg/dL (60-115)
[2022-10-20] MEDS: Benzocaine 20 % Oral Gel 9 GM TUBE 1 APPL MUCOUS MEM (20:47)
[2022-10-21] MEDS: Acetaminophen 325 MG TABLET 650 MG PO ×3 (00:23→20:35)
[2022-10-21 03:27] VITALS: BP 104/51; PULSE 72; RESP 16; TEMP 36.3; O2SAT 95
[2022-10-21 07:05] VITALS: BP 141/70; PULSE 74; RESP 18; TEMP 36.7; O2SAT 99
[2022-10-21 07:11] LABS: Glucose, Whole Blood 145 mg/dL (60-115)
[2022-10-21] MEDS: polyethylene glycoL 3350 17 GM POWD.PACK PO (08:03)
[2022-10-21] MEDS: metFORMIN HCl 850 MG TABLET PO ×2 (08:03→16:49)
[2022-10-21] MEDS: Metoprolol Succinate ER 100 MG TAB.ER.24H PO (08:03)
[2022-10-21] MEDS: Amiodarone HCL 200 MG TABLET PO (08:03)
[2022-10-21] MEDS: Insulin Glargine,Hum.rec.anlog 100 UNIT/ML 10 ML VIAL 25 UNIT SUBCUT (08:04)
[2022-10-21] MEDS: Apixaban 5 MG TABLET PO ×2 (08:04→20:35)
[2022-10-21] MEDS: Insulin Lispro 100 UNIT/ML 3 ML VIAL SUBCUT ×4 (08:04→20:35)
[2022-10-21] MEDS: Hydrocortisone 1 % Cream 28.35 GM TUBE 1 APPL TOPICAL ×2 (08:04→20:36)
[2022-10-21] MEDS: Tamsulosin HCL 0.4 MG CAPSULE 0.8 MG PO (08:04)
[2022-10-21 11:08] LABS: Glucose, Whole Blood 195 mg/dL (60-115)
--- NOTE | 2022-10-21 11:32 | HO.PM.IMPN ---
Subjective Subjective Date of Service: 10/21/22 Interval History: Offers no acute complaints, concern about not receiving physical therapy since patient was discharged from PT since was not making functional gains since evaluation on September 25, tolerating diet no other Review of Systems Review of Systems: Yes all other systems are reviewed and are negative Physical Exam Vital Signs: Vital Signs: Last Vital Signs Temp 98.1 F 10/21/22 07:05 Pulse 74 10/21/22 07:05 Resp 18 10/21/22 07:05 BP 141/70 H 10/21/22 07:05 Pulse Ox 99 10/21/22 07:05 O2 Del Method 10/21/22 07:05 O2 Flow Rate 2 09/04/22 12:48 BMI result Body Mass Index 26.6 Const: Other: Gen: in no acute distress HEENT: sclera anicteric, moist mucus membranes Neck: supple Lungs: clear to auscultation bilaterally Heart: regular rate and rhythm, no murmurs Abd: soft, non-tender, non-distended Ext: no edema Skin: sacral ulcer Neuro: alert and oriented x3, no focal findings Psych: appropriate affect ? Objective Data Active Medications Acetaminophen (Acetaminophen 325 Mg Tablet) 650 mg PO Q6H PRN PRN Reason: Pain, Mild (Pain Scale 1-3) Last Admin: 10/21/22 00:23 Dose: 650 mg Documented By: NOHEMI Amiodarone HCl (Amiodarone Hcl 200 Mg Tablet) 200 mg PO DAILY [facility] Last Admin: 10/21/22 08:03 Dose: 200 mg Documented By: THEODORA Apixaban (Apixaban 5 Mg Tablet) 5 mg PO BID [facility] Last Admin: 10/21/22 08:04 Dose: 5 mg Documented By: THEODORA Artificial Tears (Artificial Tears 15 Ml Drops) 1 drop EYE-BOTH Q4H PRN PRN Reason: tearin Last Admin: 10/02/22 08:57 Dose: 1 drop Documented By: KHURRAM Benzocaine (Benzocaine 20 % Oral Gel 9 Gm Tube) 1 appl MUCOUS MEM QID PRN; Protocol PRN Reason: tooth ache Last Admin: 10/20/22 20:47 Dose: 1 appl Documented By: NOHEMI Benzocaine (Throat Lozenge, Medicated Lozenge) 1 lozenge MUCOUS MEM Q2H PRN PRN Reason: Sore Throat Last Admin: 10/16/22 02:14 Dose: 1 lozenge Documented By: ADRIANA Glucose (Glucose Gel 15 Gm Gel..Gram.) 15 gm PO Q15M PRN; Protocol PRN Reason: per Hypoglycemia Standing Ord. Guaifenesin (Guaifenesin 100 Mg/5 Ml Liquid) 5 ml PO Q6H PRN PRN Reason: Cough Last Admin: 10/16/22 02:06 Dose: 5 ml Documented By: ADRIANA Hydrocortisone (Hydrocortisone 1 % Cream 28.35 Gm Tube) 1 appl TOPICAL BID [facility]; Protocol Last Admin: 10/21/22 08:04 Dose: 1 appl Documented By: THEODORA Dextrose (D10) 250 mls @ 750 mls/hr IV Q15M PRN; Protocol PRN Reason: per Hypoglycemia Standing Ord. Insulin Glargine (Insulin Glargine,Hum.Rec.Anlog 100 Unit/Ml 10 Ml Vial) 25 unit SUBCUT DAILY@0730 [facility] Last Admin: 10/21/22 08:04 Dose: 25 unit Documented By: THEODORA Insulin Human Lispro (Insulin Lispro 100 Unit/Ml 3 Ml Vial) 0 unit SUBCUT QIDACHS [facility]; Protocol Last Admin: 10/21/22 08:04 Dose: 2 unit Documented By: THEODORA Metformin HCl (Metformin Hcl 850 Mg Tablet) 850 mg PO BIDWM [facility] Last Admin: 10/21/22 08:03 Dose: 850 mg Documented By: THEODORA Metoprolol Succinate (Metoprolol Succinate Er 100 Mg Tab.Er.24h) 100 mg PO DAILY [facility] Last Admin: 10/21/22 08:03 Dose: 100 mg Documented By: THEODORA Polyethylene Glycol (Polyethylene Glycol 3350 17 Gm Powd.Pack) 17 gm PO DAILY [facility] Last Admin: 10/21/22 08:03 Dose: 17 gm Documented By: THEODORA Sodium Hypochlorite (Sodium Hypochlorite 0.25% 473 Ml Solution) 1 appl TOPICAL BID [facility] Last Admin: 10/21/22 08:04 Dose: 1 appl Documented By: THEODORA Tamsulosin HCl (Tamsulosin Hcl 0.4 Mg Capsule) 0.8 mg PO DAILY [facility] Last Admin: 10/21/22 08:04 Dose: 0.8 mg Documented By: THEODORA Zinc Acetate/Diphenhydramine (Diphenhydramine Hcl 2 % Cream 28 Gm Tube) 1 appl TOPICAL QID PRN; Protocol PRN Reason: itching Labs 10/05/22 08:08 10/14/22 08:33 Labs: Laboratory Results - last 24 hr 10/20/22 10/20/22 10/20/22 12:01 16:11 20:03 POC Glucose 201 H 145 H 242 H 10/21/22 10/21/22 07:04 11:03 POC Glucose 145 H 195 H Assessment and Plan (1) Decubitus ulcer of sacral region, unstageable: Status: Acute Plan 74yo M with DM2, HTN, HLD, chronic venous stasis dermatitis presented with mechanical fall, admitted for hypoxia due to PNA and now awaiting safe placement 1. UTI - completed course of antibiotics no recurrent symptoms 2.Cough - resolved 3.Toothache - benzocaine gel 4.Sacral decubitus ulcer - unstageable, necrotic 10cm x10 cm with 4 cm depth - frequent turning, air loss bed, continue wound care - s/p debridements 07/08, 07/17, 08/05 - s/p wound VAC placement 07/22 + removed 07/25 after it became soiled- no further role for VAC per Surgery - continue wet to dry dressings, periodic Surgery input 5.Atrial flutter/fib - LVEF >70% - continue Toprol XL for rate control - continue amiodarone for rhythm contrl - continue AC with Eliquis 6.Episode of SVT vs atrial tachycardia 07/26 - HR improved with IV Lopressor, finished loading dose of amiodarone and started on amiodarone 200 mg by mouth daily on 08/07, continue Toprol XL 7.Acute blood loss anemia - resolved, was attributed to blood loss at site of decub ulcer, patient received 2 unit of packed RBC - continue ferrous sulfate b.i.d. - H/H stable, periodic check- today's stable 8.Traumatic SAH - CT brain 06/26: New small areas of extra-axial hemorrhage adjacent to the left posterior parietal lobe, bilateral occipital lobes and in the occipital horns of both lateral ventricles, repeat CT 06/28 unchanged - seen by Neuro; AC was held for two weeks - no headache, no dizziness; no other complications 9.Urinary retention - failed voiding trial x2; continue tamsulosin and finasteride; seen by urology, continue Lemus upon discharge; outpatient urology follow up [place] Full code In my clinical judgment, the patient requires continued inpatient hospitalization for the following reasons: safe placement Time Spent With Patient Time: Total time managing care of this patient today ____ minutes. Quality Stroke Does the patient have a stroke diagnosis?: No VTE Prior VTE?: No VTE Risk Level:: Medical - moderate - high VTE Device Contraindication: Treatment Not Indicated VTE Drug Contraindication: N/A - Med Ordered
--- NOTE | 2022-10-21 13:32 | MHC.CM.PN ---
Addendum entered by Pippa Courtney 10/21/22 15:33: IMM 10/21/22 Original Note: Patients HCP has arranged for patient to be admitted to [facility]. Orly Romero, admissions will accept the pt tomorrow or Friday. She will notify [facility] CM when HCP has released the private pay funds to the facility. CM will follow.
[2022-10-21 15:47] VITALS: BP 118/57; PULSE 82; RESP 16; TEMP 36.1; O2SAT 98
[2022-10-21 16:38] LABS: Glucose, Whole Blood 182 mg/dL (60-115)
[2022-10-21 20:00] VITALS: BP 115/59; PULSE 85; RESP 16; TEMP 36.3; O2SAT 96
[2022-10-21 20:31] LABS: Glucose, Whole Blood 184 mg/dL (60-115)
[2022-10-21] MEDS: Benzocaine 20 % Oral Gel 9 GM TUBE 1 APPL MUCOUS MEM (20:36)
[2022-10-22 03:57] VITALS: BP 121/61; PULSE 78; RESP 16; TEMP 36.6; O2SAT 93
[2022-10-22 07:26] VITALS: BP 131/60; PULSE 83; RESP 16; TEMP 36.1; O2SAT 96
[2022-10-22 07:42] LABS: Glucose, Whole Blood 95 mg/dL (60-115)
[2022-10-22 08:58] LABS: Anion Gap 14 (12-20); Blood Urea Nitrogen 16 mg/dL (9-16); Calcium 8.9 mg/dL (8.4-10.2); Carbon Dioxide 29 mmol/L (22-29); Chloride 101 mmol/L (96-108); Creatinine Clr Calc Pharmacy 108.9; Estimated Glomerular Filt Rate > 60; Glucose Random 117 mg/dL (60-115); Potassium 4.5 mmol/L (3.3-5.1); Sodium 139 mmol/L (135-145)
[2022-10-22] MEDS: Apixaban 5 MG TABLET PO ×2 (09:23→19:57)
[2022-10-22] MEDS: Metoprolol Succinate ER 100 MG TAB.ER.24H PO (09:23)
[2022-10-22] MEDS: metFORMIN HCl 850 MG TABLET PO ×2 (09:23→16:40)
[2022-10-22] MEDS: polyethylene glycoL 3350 17 GM POWD.PACK PO (09:23)
[2022-10-22] MEDS: Hydrocortisone 1 % Cream 28.35 GM TUBE 1 APPL TOPICAL ×2 (09:23→19:58)
[2022-10-22] MEDS: Insulin Glargine,Hum.rec.anlog 100 UNIT/ML 10 ML VIAL 25 UNIT SUBCUT (09:23)
[2022-10-22] MEDS: Amiodarone HCL 200 MG TABLET PO (09:23)
[2022-10-22] MEDS: Tamsulosin HCL 0.4 MG CAPSULE 0.8 MG PO (09:23)
--- NOTE | 2022-10-22 10:58 | P.PNIM_ITS ---
Subjective Subjective Date of Service: 10/22/22 Interval History: Awake alert tolerating diet, sitting comfortably, offers no acute complaints, no acute events overnight. Review of Systems Review of Systems: Yes all other systems are reviewed and are negative Physical Exam Vital Signs: Vital Signs: Last Vital Signs Temp 97.0 F 10/22/22 07:26 Pulse 83 10/22/22 07:26 Resp 16 10/22/22 07:26 BP 131/60 10/22/22 07:26 Pulse Ox 96 10/22/22 07:26 O2 Del Method 10/22/22 07:26 O2 Flow Rate 2 09/04/22 12:48 BMI result Body Mass Index 26.6 Const: Other: Gen: in no acute distress HEENT: sclera anicteric, moist mucus membranes Neck: supple Lungs: clear to auscultation bilaterally Heart: regular rate and rhythm, no murmurs Abd: soft, non-tender, non-distended Ext: no edema Skin: sacral ulcer Neuro: alert and oriented x3, no focal findings Psych: appropriate affect Objective Data Active Medications Acetaminophen (Acetaminophen 325 Mg Tablet) 650 mg PO Q6H PRN PRN Reason: Pain, Mild (Pain Scale 1-3) Last Admin: 10/21/22 20:35 Dose: 650 mg Documented By: NOHEMI Amiodarone HCl (Amiodarone Hcl 200 Mg Tablet) 200 mg PO DAILY [facility] Last Admin: 10/22/22 09:23 Dose: 200 mg Documented By: THEODORA Apixaban (Apixaban 5 Mg Tablet) 5 mg PO BID [facility] Last Admin: 10/22/22 09:23 Dose: 5 mg Documented By: THEODORA Artificial Tears (Artificial Tears 15 Ml Drops) 1 drop EYE-BOTH Q4H PRN PRN Reason: tearin Last Admin: 10/02/22 08:57 Dose: 1 drop Documented By: KHURRAM Benzocaine (Benzocaine 20 % Oral Gel 9 Gm Tube) 1 appl MUCOUS MEM QID PRN; Protocol PRN Reason: tooth ache Last Admin: 10/21/22 20:36 Dose: 1 appl Documented By: NOHEMI Benzocaine (Throat Lozenge, Medicated Lozenge) 1 lozenge MUCOUS MEM Q2H PRN PRN Reason: Sore Throat Last Admin: 10/16/22 02:14 Dose: 1 lozenge Documented By: ADRIANA Glucose (Glucose Gel 15 Gm Gel..Gram.) 15 gm PO Q15M PRN; Protocol PRN Reason: per Hypoglycemia Standing Ord. Guaifenesin (Guaifenesin 100 Mg/5 Ml Liquid) 5 ml PO Q6H PRN PRN Reason: Cough Last Admin: 10/16/22 02:06 Dose: 5 ml Documented By: ADRIANA Hydrocortisone (Hydrocortisone 1 % Cream 28.35 Gm Tube) 1 appl TOPICAL BID [facility]; Protocol Last Admin: 10/22/22 09:23 Dose: 1 appl Documented By: THEODORA Dextrose (D10) 250 mls @ 750 mls/hr IV Q15M PRN; Protocol PRN Reason: per Hypoglycemia Standing Ord. Insulin Glargine (Insulin Glargine,Hum.Rec.Anlog 100 Unit/Ml 10 Ml Vial) 25 unit SUBCUT DAILY@0730 [facility] Last Admin: 10/22/22 09:23 Dose: 25 unit Documented By: THEODORA Insulin Human Lispro (Insulin Lispro 100 Unit/Ml 3 Ml Vial) 0 unit SUBCUT QIDACHS [facility]; Protocol Last Admin: 10/22/22 08:28 Dose: Not Given Documented By: THEODORA Non-Admin Reason: No Insulin Coverage Metformin HCl (Metformin Hcl 850 Mg Tablet) 850 mg PO BIDWM [facility] Last Admin: 10/22/22 09:23 Dose: 850 mg Documented By: THEODORA Metoprolol Succinate (Metoprolol Succinate Er 100 Mg Tab.Er.24h) 100 mg PO DAILY [facility] Last Admin: 10/22/22 09:23 Dose: 100 mg Documented By: THEODORA Polyethylene Glycol (Polyethylene Glycol 3350 17 Gm Powd.Pack) 17 gm PO DAILY [facility] Last Admin: 10/22/22 09:23 Dose: 17 gm Documented By: THEODORA Sodium Hypochlorite (Sodium Hypochlorite 0.25% 473 Ml Solution) 1 appl TOPICAL BID [facility] Last Admin: 10/22/22 09:23 Dose: 1 appl Documented By: TEHODORA Tamsulosin HCl (Tamsulosin Hcl 0.4 Mg Capsule) 0.8 mg PO DAILY [facility] Last Admin: 10/22/22 09:23 Dose: 0.8 mg Documented By: THEODORA Zinc Acetate/Diphenhydramine (Diphenhydramine Hcl 2 % Cream 28 Gm Tube) 1 appl TOPICAL QID PRN; Protocol PRN Reason: itching Labs 10/05/22 08:08 10/22/22 08:18 Labs: Laboratory Results - last 24 hr 10/21/22 10/21/22 10/21/22 11:03 16:32 20:25 Anion Gap Estim Creat Clear Calc Estimated GFR POC Glucose 195 H 182 H 184 H Random Glucose Calcium 10/22/22 10/22/22 07:30 08:18 Anion Gap 14 Estim Creat Clear Calc 108.9 Estimated GFR > 60 POC Glucose 95 Random Glucose 117 H Calcium 8.9 Assessment and Plan (1) Decubitus ulcer of sacral region, unstageable: Status: Acute Plan 74yo M with DM2, HTN, HLD, chronic venous stasis dermatitis [facility] for hypoxia due to PNA and now awaiting safe placement 1. UTI - completed course of antibiotics no recurrent symptoms 2.Cough - resolved 3.Toothache - benzocaine gel 4.Sacral decubitus ulcer - unstageable, necrotic 10cm x10 cm with 4 cm depth - frequent turning, air loss bed, continue wound care - s/p debridements 07/08, 07/17, 08/05 - s/p wound VAC placement 07/22 + removed 07/25 after it became soiled- no further role for VAC per Surgery - continue wet to dry dressings as per surgery recommendation. 5.Atrial flutter/fib - LVEF >70% - continue Toprol XL for rate control - continue amiodarone for rhythm control, continue Eliquis 6.Episode of SVT vs atrial tachycardia 07/26 - HR improved with IV Lopressor, finished loading dose of amiodarone and started on amiodarone 200 mg by mouth daily on 08/07, continue Toprol XL 7.Acute blood loss anemia - resolved, was attributed to blood loss at site of decub ulcer, s/p 2 unit of packed RBC repeat hematocrit stable - continue ferrous sulfate b.i.d. 8.Traumatic SAH - CT brain 06/26: New small areas of extra-axial hemorrhage adjacent to the left posterior parietal lobe, bilateral occipital lobes and in the occipital horns of both lateral ventricles, repeat CT 06/28 unchanged - seen by Neuro; AC was held for two weeks - no headache, no dizziness; no other complications 9.Urinary retention - failed voiding trial x2; continue tamsulosin and finasteride; seen by urology, continue Lemus upon discharge; outpatient urology follow up [place]equila Full code In my clinical judgment, the patient requires continued inpatient hospitalization for the following reasons: safe placement Time Spent With Patient Time: Total time managing care of this patient today ____ minutes. Quality Stroke Does the patient have a stroke diagnosis?: No VTE Prior VTE?: No VTE Risk Level:: Medical - moderate - high VTE Device Contraindication: Treatment Not Indicated VTE Drug Contraindication: N/A - Med Ordered
[2022-10-22 11:32] LABS: Glucose, Whole Blood 216 mg/dL (60-115)
[2022-10-22] MEDS: Insulin Lispro 100 UNIT/ML 3 ML VIAL SUBCUT ×3 (11:51→21:35)
[2022-10-22] MEDS: Acetaminophen 325 MG TABLET 650 MG PO (12:43)
[2022-10-22 15:30] VITALS: BP 133/63; RESP 20; TEMP 36.6; O2SAT 97
[2022-10-22 16:15] LABS: Glucose, Whole Blood 155 mg/dL (60-115)
[2022-10-22 19:58] VITALS: BP 112/56; PULSE 82; RESP 18; TEMP 36.7; O2SAT 96
[2022-10-22 21:20] LABS: Glucose, Whole Blood 184 mg/dL (60-115)
[2022-10-23] MEDS: Acetaminophen 325 MG TABLET 650 MG PO (00:38)
[2022-10-23 04:00] VITALS: BP 118/56; PULSE 75; RESP 18; TEMP 36; O2SAT 96
[2022-10-23 07:14] VITALS: BP 116/55; PULSE 74; RESP 18; TEMP 36.6; O2SAT 95
[2022-10-23 07:34] LABS: Glucose, Whole Blood 117 mg/dL (60-115)
[2022-10-23] MEDS: Insulin Glargine,Hum.rec.anlog 100 UNIT/ML 10 ML VIAL 25 UNIT SUBCUT (08:06)
[2022-10-23] MEDS: Hydrocortisone 1 % Cream 28.35 GM TUBE 1 APPL TOPICAL (08:07)
[2022-10-23] MEDS: Apixaban 5 MG TABLET PO (08:07)
[2022-10-23] MEDS: Insulin Lispro 100 UNIT/ML 3 ML VIAL SUBCUT ×2 (08:07→11:45)
[2022-10-23] MEDS: Metoprolol Succinate ER 100 MG TAB.ER.24H PO (08:07)
[2022-10-23] MEDS: polyethylene glycoL 3350 17 GM POWD.PACK PO (08:07)
[2022-10-23] MEDS: Tamsulosin HCL 0.4 MG CAPSULE 0.8 MG PO (08:07)
[2022-10-23] MEDS: Amiodarone HCL 200 MG TABLET PO (08:07)
[2022-10-23] MEDS: metFORMIN HCl 850 MG TABLET PO ×2 (08:09→16:37)
[2022-10-23 11:12] LABS: Glucose, Whole Blood 208 mg/dL (60-115)
--- NOTE | 2022-10-23 11:33 | MHC.CM.PN ---
PT BEING TRANSFERRED TO [facility] M[facility]AGE LEFT [facility] LEAVING AT 3
[2022-10-23 12:05] LABS: COVID-19 Test Negative (Negative); IDNOW Serial# BCCEAD1C
--- NOTE | 2022-10-23 13:24 | P.DS_ITS ---
DS: Providers Provider Date of Service: 10/23/22 Date of admission: 06/15/22 10:46 Primary care physician: Aubrey iFtzpatrick MD Consults: 06/19/22 08:06 Consult to Cardiology Routine Consulting Provider: Topher Wheeler Reason for consultation: new onset atrial fibbrillation 06/24/22 14:39 Consult to Neurology Routine Consulting Provider: [facility] Reason for consultation: Weakness, increase confusion, MRI questioning possible NPH? 06/25/22 08:14 Consult to Nephrology Routine Consulting Provider: Darren Vital Reason for consultation: recurrent mod. hyponatremia for eval 07/06/22 14:50 Consult to General Surgery Routine Consulting Provider: Quang Early Reason for consultation: Pressure ulcer, needs debridment Has provider been notified: No 07/24/22 10:29 Consult to Urology Routine Consulting Provider: Any Chauhan Reason for consultation: retension Has provider been notified: No 07/26/22 07:54 Consult to Cardiology Routine Consulting Provider: Huber Valdivia Reason for consultation: svt Has provider been notified: No DS: Diagnosis Discharge Diagnosis (1) Decubitus ulcer of sacral region, unstageable: Status: Acute DS: Summary Hospital Course Hospital Course: History of presenting illness: Date of Service: 06/15/22 Attending physician on admission: Shade Magdaleno Chief Complaint: dizziness, fall 81 year old male with history of insulin dependent type 2 diabetes, hypertension, hyperlipidemia, history of cervical fusion, chronic venous stasis dermatitis, who is a former smoker presented to the ED 2 days ago after sustaining a fall. The patient reports he has a mechanical fall 3 days ago after tripping while shopping without head injury or LOC. Did not seek medical attn. The next day while at the grocery store states he felt dizzy and fell again without head injury or LOC. Fell directly onto his back and came to the ED for evaluation.? On arrival, patient found to be hypoxic with oximetry ranging 87- 89% patient was placed on 2 L supplemental O2 via nasal cannula, he is not oxygen dependent at home.? Vitals otherwise stable.? Orthostatics negative.? There is no evidence of trauma on chest or abdominal/pelvis CT.? No acute fracture or dislocation of the cervical spine.? Head CT negative for acute intracranial abnormality.? Abdominal CT with incidental finding of to fluid attenuation lesions in the pancreatic tail measuring overall 1.3 cm possibly reflecting adjacent pancreatic cyst but follow-up evaluation with contrast- enhanced MR/MRCP recommended.? There also scattered solid pulmonary micro nod ules measuring less than 6 mm.? On arrival, no leukocytosis, renal function electrolytes normal.? Patient was being observed for placement.? However, dizziness continue to be marked so MRI of the brain was ordered to rule out posterior stroke, negative for any acute intracranial abnormality but did show generalized cerebral volume loss with mild disproportionate prominence of the ventricles, possible superimposed normal pressure hydrocephalus, as well as moderate left-sided mastoid effusion.? Clinically, patient presentation not consistent with NPH.? As result of the dizziness, was not able to participate in PT.? Also remained hypoxic down to 85% on room air this morning and admission being recommended as a result.? COVID-19, influenza, and RSV pending.? Chest x- ray without evidence of focal consolidation but did show left lower lobe atelectasis.? Patient is reporting feeling generally unwell with diffuse myalgias and reporting chronic neck and low back pain.? He is also reporting chronic constipation and abdominal bloating with new onset nausea but no vomiting.? No complaints of shortness of breath despite hypoxia.? He has been afebrile and denies any shaking chills, nasal congestion, rhinorrhea, sore throat, cough, ongoing dizziness, palpitations, vomiting, diarrhea, urinary symptoms, abdominal pain, or blood in the stool. Hospital course 74yo M with DM2, HTN, HLD, chronic venous stasis dermatitis presented with mechanical fall, admitted for hypoxia due to PNA , hospital course complicated by UTI, urinary retention, atrial fib flutter as below. # UTI - completed 5d ABX # sacral decubitus ulcer - unstageable, necrotic 10cm x10 cm with 4 cm depth, s/p debridements 07/08, 07/17, 08/05 by General surgery, s/p wound VAC placement 07/22 + removed 07/25 after it became soiled- no further role for VAC per Surgery Requiring frequent turning, air loss bed, continue wound care, continue wet to dry dressings, periodic Surgery input. # atrial flutter/fib stable heart rate, LVEF >70%, continue Toprol XL for rate control, continue amiodarone for rhythm control, continue AC with Eliquis. # episode of SVT vs atrial tachycardia 07/26, HR improved with IV Lopressor, finished loading dose of amiodarone and started on amiodarone 200 mg by mouth daily on 08/07, continue Toprol XL. # acute blood loss anemia resolved, was attributed to blood loss at site of decub ulcer, patient received 2 unit of packed RBC, continue ferrous sulfate b.i.d. H/H stable, periodic check cbc. Seen # traumatic SAH CT brain 06/26: New small areas of extra-axial hemorrhage adjacent to the left posterior parietal lobe, bilateral occipital lobes and in the occipital horns of both lateral ventricles, repeat CT 06/28 unchanged seen by Neuro; AC was held for two weeks, no headache, no dizziness; no other complications. # acute hypoxic respiratory failure due to PNA resolved; finished 10d of ABX; back on room air. # urinary retention- failed voiding trial x2; continue tamsulosin and fi nasteride; seen by urology, continue Lemus upon discharge; outpatient urology follow up # hyponatremia resolved; s/p urea; cortisol, TSH WNL # mechanical fall- difficulty ambulating physical therapy recommend long-term care and 247 monitoring. # generalized weakness- 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 but not clinically NPH per Neurology # incidental 1.3cm pancreatic lesions - may reflect adjacent pancreatic cysts, outpt MRI/MRCP. # DM2 - glycemic control acceptable; continue basal-bolus insulin and metformin # HTN - stable blood pressures, continue metoprolol # HLD continue statin,follow lipid profile. # bilateral eye dryness no erythema or pain or vision change, artificial tear drops Time Spent with Patient Time attestation: Total time managing care of this patient today ____ minutes. Discharge coordination time: Greater than 30 minutes Quality: Safe Use of Opioids Does Pt have an Active Cancer Diagnosis on the Problem List?: No Quality: Stroke Does the patient have a stroke diagnosis?: No Physical Exam Vital Signs: Vital Signs: Last Vital Signs Temp 97.8 F 10/23/22 07:14 Pulse 74 10/23/22 07:14 Resp 18 10/23/22 07:14 BP 116/55 L 10/23/22 07:14 Pulse Ox 95 10/23/22 07:14 O2 Del Method 10/23/22 07:14 O2 Flow Rate 2 09/04/22 12:48 BMI result Body Mass Index 26.6 Const: Other: Gen: Awake alert, in no acute distress HEENT: sclera anicteric, moist mucus membranes Neck: supple Lungs: clear to auscultation bilaterally Heart: regular rate and rhythm, no murmurs Abd: soft, non-tender, non-distended Ext: no edema Skin: Unstageable sacral ulcer Neuro: alert and oriented x3, no focal findings Psych: appropriate affect DS: Data Data Completed and Pending Completed studies during hospitalization [Text1]: Pending at discharge 07/08/22 09:14 Surgical [PTH] Routine 07/17/22 13:28 Surgical [PTH] Routine 07/22/22 08:07 Surgical [PTH] Routine Labs on day of discharge: Laboratory Results - last 24 hr 10/22/22 10/22/22 10/23/22 16:07 21:16 07:28 POC Glucose 155 H 184 H 117 H COVID-19 ([facility]) COVID-19 Clin Com 10/23/22 10/23/22 11:09 11:10 POC Glucose 208 H COVID-19 ([facility]) Negative COVID-19 Clin Com See Note Discharge Plan Discharge Patient Disposition: Xfer [facility] Discharge Diagnosis: Unstageable sacral decubitus ulcer Atrial flutter/fibrillation Episode of SVT versus atrial tachycardia Acute blood loss anemia Traumatic subarachnoid hemorrhage Acute hypoxic respiratory failure due to pneumonia Urinary retention Hyponatremia Referrals: [facility] [Other] - 1 Week Aubrey Fitzpatrick MD [Primary Care Provider] - 2 days Discharge Medications: New amiodarone 200 mg Tablet 200 mg PO DAILY Qty: 30 0RF acetaminophen 325 mg Tablet 650 mg PO Q6H PRN (Reason: Pain, Mild (Pain Scale 1-3)) Qty: 30 0RF metoprolol succinate 100 mg Tablet Extended Release 24 Hr 100 mg PO DAILY Qty: 30 0RF polyethylene glycol 3350 17 gram Powder In Packet 17 g PO DAILY Qty: 30 0RF hydrocortisone 1 % Cream 1 appl topical BID Qty: 28.4 0RF Protocol: Apply to: Apply to: back metformin 850 mg Tablet 850 mg PO BIDWM Qty: 60 0RF tamsulosin 0.4 mg Capsule 0.8 mg PO DAILY Qty: 30 0RF Eliquis 5 mg Tablet 5 mg PO BID Qty: 60 0RF insulin glargine [Lantus U-100 Insulin] 100 unit/mL Solution 25 unit subcut DAILY@0730 Qty: 10 0RF insulin lispro [Humalog U-100 Insulin] 100 unit/mL Solution See Protocol subcut QIDACHS Qty: 10 0RF Protocol: Insulin Correction Scale Less than or equal to 110 ---- Give (units): 0 111 to 150 Give (units): 2 151 to 200 Give (units): 4 201 to 250 Give (units): 6 251 to 300 Give (units): 8 301 to 350 Give (units): 10 Greater than 350 Give (units): 12 Call MD if Blood Glucose > : 350 guaifenesin 100 mg/5 mL Liquid 100 mg PO Q6H PRN (Reason: Cough) Qty: 473 0RF finasteride 5 mg tablet 5 mg PO DAILY Qty: 30 0RF rosuvastatin [Crestor] 5 mg tablet 5 mg PO DAILY Qty: 30 0RF Continued cholecalciferol (vitamin D3) 50 mcg (2,000 unit) capsule 50 mcg PO DAILY Qty: 90 8RF Discontinued (DME) insulin syringe-needle U-100 [BD Insulin Syringe Ultra-Fine] 1 mL 31 gauge x 5/16 syringe See Rx Instructions .ROUTE .MEDSUPPLY Qty: 100 8RF Rx Instructions: As directed (DME) FreeStyle Test Strip See Rx Instructions .Route Qty: 100 6RF Rx Instructions: Test 3 times Daily rosuvastatin [Crestor] 10 mg tablet 10 mg PO DAILY 90 Days Qty: 90 4RF losartan 25 mg tablet 25 mg PO DAILY 90 Days Qty: 90 4RF metformin 850 mg tablet 850 mg PO TID 90 Days Qty: 270 4RF metoprolol tartrate 100 mg tablet 100 mg PO BID 90 Days Qty: 180 4RF hydralazine 25 mg tablet 25 mg PO BID 90 Days Qty: 180 4RF insulin NPH and regular human 100 unit/mL (70-30) Suspension 60 unit SUBCUT DAILY insulin NPH and regular human 100 unit/mL (70-30) Suspension 40 unit SUBCUT DAILY@1300 Discharge Orders: Discharge Order (Routine); Ordered 10/23/22 Ordered By: Narciso Wright Diet: Diabetic diet Activity on Discharge: As tolerated Stand Alone Forms: Patient Portal Discharge page, Work/School Release Activity Restrictions/Additional Instructions: Take your medications as prescribed. If you were prescribed antibiotics today, it is important that you take your medication to their entirety, do not skip any doses, do not finish them early. Follow-up with your primary care provider . Return to the emergency department with new or worsening symptoms. Such as fevers, chills, chest pain, shortness of breath, nausea, vomiting, dizziness, headache, vision changes, lethargy In case of emergency call 911 CT/CT cervical spine & head/brain wo IV con IMPRESSION: Negative acute noncontrast CT of the brain. ? No acute fracture or dislocation of the cervical spine CT/CT chest & abdomen w IV con IMPRESSION: *? No evidence of traumatic injury in the chest, abdomen or pelvis. *? Two adjacent fluid attenuation lesions centered in the pancreatic tail? may reflect adjacent pancreatic cysts, measuring overall 1.3 cm however definitive evaluation with contrast-enhanced MR/MRCP is recommended. *? Few solid pulmonary micronodules. Assuming patient has no history of malignancy, recommend follow-up per Fleischner Society recommendations. According to the UPDATED 2017 Fleischner Society recommendations, the advised followup imaging for solid nodules < 6 mm is: ?? LOW RISK PATIENT: No routine follow up. ? HIGH RISK PATIENT: Optional CT at 12 months.? *? Cholelithiasis without evidence of acute cholecystitis. *? A 4 mm groundglass left upper lobe pulmonary nodules also seen. Assuming patient has no history of malignancy, recommend follow-up per Fleischner Society recommendations. According to the UPDATED 2017 Fleischner Society recommendations, the advised followup imaging for a single subsolid nodule <6 mm is: No routine follow up is needed. Care Plan Goals: Sacral decubiti ulcer unstageable continue dressing changes Continue Lemus catheter outpatient follow-up with Urology for voiding trial and retention workup Seen by Physical therapy they recommend 247 care, patient was not making functional gains since evaluation on September 25 Health Concerns: Diabetes mellitus follow-up blood sugars continue insulin and insulin sliding scale Plan of Treatment: Outpatient follow-up with primary care Physician and General surgery for mo nitoring of sacral decubitus ulcer Assessment: as above. Patient Instructions: Fall Prevention for Older Adults (ED), Weakness (ED), Dizziness (ED), Back Pain (ED), Fall Prevention (ED)
[2022-10-23 15:32] VITALS: BP 168/61; PULSE 78; RESP 20; TEMP 36.6; O2SAT 95
[2022-10-23 16:24] VITALS: BP 125/56; PULSE 83; RESP 16; TEMP 36.1; O2SAT 96
[2022-10-23 16:39] LABS: Glucose, Whole Blood 126 mg/dL (60-115)
--- NOTE | 2022-10-23 17:25 | PC.NURSE ---
tried caitlyn fritz in [place] x 3, busy tone.
--- NOTE | 2022-10-23 17:43 | PC.NURSE ---
assumed care at 15:00. pt A&O x 4. vitals within normal limits. report given to EMS. tried Karine fritz x 3 to do nurse to nurse but busy tone x 3. pt had no IV access.
== END 2022-10-23 17:30 | DRG 166 ==
LOC: HO.ED 23:42 → HO.EDOVER 06-15 10:55 → HO.S3 06-15 12:25
PROVIDERS: Family Medicine; Hospitalist; Internal Medicine; Internal Medicine Hypertension Specialist; Internal Medicine Nephrology; Nurse Practitioner Acute Care; Physician Assistant; Physician Assistant Medical; Student in an Organized Health Care Education/Training Program; Surgery; Admitting Provider Physician Assistant; Emergency Provider Student in an Organized Health Care Education/Training Program; PCP Internal Medicine; Visit Provider Hospitalist
PROC: 0KBP0ZZ Excision of Left Hip Muscle, Open Approach (ICD-10-PCS; principal; 2022-07-08 12:40)
DX: J18.9 Pneumonia, unspecified organism (principal); J96.01 Acute respiratory failure with hypoxia; L89.154 Pressure ulcer of sacral region, stage 4; L89.153 Pressure ulcer of sacral region, stage 3; L03.115 Cellulitis of right lower limb; E22.2 Syndrome of inappropriate secretion of antidiuretic hormone; D68.32 Hemorrhagic disorder due to extrinsic circulating anticoagulants; E11.52 Type 2 diabetes mellitus with diabetic peripheral angiopathy with gangrene; D62 Acute posthemorrhagic anemia; I47.1 Supraventricular tachycardia; N39.0 Urinary tract infection, site not specified; I87.2 Venous insufficiency (chronic) (peripheral); I25.10 Atherosclerotic heart disease of native coronary artery without angina pectoris; E78.5 Hyperlipidemia, unspecified; I48.91 Unspecified atrial fibrillation; F03.90 Unspecified dementia, unspecified severity, without behavioral disturbance, psychotic disturbance, mood disturbance, and anxiety; R29.6 Repeated falls; E11.65 Type 2 diabetes mellitus with hyperglycemia; S06.6X0S Traumatic subarachnoid hemorrhage without loss of consciousness, sequela; W19.XXXS Unspecified fall, sequela; K08.89 Other specified disorders of teeth and supporting structures; R33.9 Retention of urine, unspecified; T45.515A Adverse effect of anticoagulants, initial encounter; Z98.1 Arthrodesis status; Z20.822 Contact with and (suspected) exposure to COVID-19; Z75.1 Person awaiting admission to adequate facility elsewhere; Z91.81 History of falling; Z95.1 Presence of aortocoronary bypass graft; Z87.891 Personal history of nicotine dependence; Z88.8 Allergy status to other drugs, medicaments and biological substances; Z79.4 Long term (current) use of insulin; Z79.01 Long term (current) use of anticoagulants; Z79.84 Long term (current) use of oral hypoglycemic drugs; Z79.899 Other long term (current) drug therapy
CPT/HCPCS: 0241U; 36415; 70450; 70551; 71045; 71260; 71275; 72125; 73502; 74177; 80048; 80053; 81001; 81003; 82043; 82530; 82550; 82565; 82947; 83735; 83880; 83930; 83935; 84156; 84300; 84443; 84484; 85025; 85027; 85379; 85610; 86850; 86900; 86901; 86923; 87040; 87086; 87088; 87186; 87493; 87635; 88304; 92526; 92610; 93005; 93306; 93971; 94799; 97110; 97162; 97166; 97530; 99285; C1758; J0690; J0696; J1100; J1160; J1650; J2270; J2370; J2405; J2795; J3010; J3475; P9016; Q9957; Q9967